=== PATIENT | male | born 1950 | race Caucasian/White ===

== ENCOUNTER → 2024-11-11 05:00 | Outpatient (REF) | payer MEDICARE, SELFPAY ==
[2024-11-11 08:16] LABS: Hematocrit 34.5 % (40-54); Hemoglobin 10.7 g/dL (13.0-16.5); Immature Granulocytes Count 0.050 X10^3/uL (0.0-0.0); Mean Corp Hgb Conc 31.0 g/dL (32-36); Mean Corpuscular Volume 95.0 fL (80-94); Mean Platelet Vol. 9.2 fl (6.2-12.0); NRBC Flagged by Analyzer 0 % (0-5); Platelet Count 443 K/mm3 (150-450); RBC Distribution Width CV 14.6 % (11.6-14.6); RBC Distribution Width SD 51.3 fl (35.1-43.9); Red Blood Count 3.63 M/mm3 (4.6-6.2); White Blood Count 9.2 K/mm3 (4.4-11.0)
[2024-11-11 08:39] LABS: AST(SGOT) 14 U/L (<=37); Alanine Aminotransfer ALT/SGPT 11 U/L (<=46); Albumin, Serum 3.0 g/dL (3.4-4.8); Alkaline Phosphatase 81 U/L (40-129); Anion Gap 11 (5-15); BUN 6 mg/dL (4-19); BUN/Creat Ratio 10.5 RATIO (10-20); Bilirubin, Direct 0.15 mg/dL (0.00-0.30); Calcium,Total 9.0 mg/dL (7.6-11.0); Carbon Dioxide 24.0 mmol/L (21.0-32.0); Chloride 108 mmol/L (98-108); Globulin 3.2 g/dL (2.2-4.2); Glucose 95 mg/dL (70-99); Potassium 3.6 mmol/L (3.3-5.1)
== END ==
LOC: OLS.SANC 05:00
PROVIDERS: Visit Provider Internal Medicine
DX: I48.91 Unspecified atrial fibrillation (principal); D64.9 Anemia, unspecified; J44.9 Chronic obstructive pulmonary disease, unspecified; I10 Essential (primary) hypertension; E78.5 Hyperlipidemia, unspecified; Z79.899 Other long term (current) drug therapy
CPT/HCPCS: 36415; 80053; 82248; 84443; 85025

== ENCOUNTER → 2024-11-18 | Outpatient (REF) | payer MEDICARE, SELFPAY ==
[2024-11-18 09:13] LABS: Hematocrit 34.5 % (40-54); Hemoglobin 10.8 g/dL (13.0-16.5); Immature Granulocytes Count 0.020 X10^3/uL (0.0-0.0); Mean Corp Hgb Conc 31.3 g/dL (32-36); Mean Corpuscular Volume 92.0 fL (80-94); Mean Platelet Vol. 9.5 fl (6.2-12.0); NRBC Flagged by Analyzer 0 % (0-5); Platelet Count 337 K/mm3 (150-450); RBC Distribution Width CV 14.3 % (11.6-14.6); RBC Distribution Width SD 48.2 fl (35.1-43.9); Red Blood Count 3.75 M/mm3 (4.6-6.2); White Blood Count 7.7 K/mm3 (4.4-11.0)
[2024-11-18 09:46] LABS: AST(SGOT) 13 U/L (<=37); Alanine Aminotransfer ALT/SGPT 7 U/L (<=46); Albumin, Serum 3.0 g/dL (3.4-4.8); Alkaline Phosphatase 80 U/L (40-129); Bilirubin, Direct 0.16 mg/dL (0.00-0.30); Globulin 3.0 g/dL (2.2-4.2)
== END ==
LOC: OLS.SANC 04:00
PROVIDERS: Referring Provider Internal Medicine; Visit Provider Internal Medicine
DX: I48.91 Unspecified atrial fibrillation (principal); I10 Essential (primary) hypertension; J44.9 Chronic obstructive pulmonary disease, unspecified
CPT/HCPCS: 36415; 80076; 82565; 85025

== ENCOUNTER → 2024-11-25 | Outpatient (REF) | payer MEDICARE, SELFPAY ==
--- OUTSIDE RECORDS SUMMARY | 2024-11-22 09:41 | XMS RPT_ITS ---
Author Name Auto Generated Organization [facility] Care Team Providers Care Senior Storage Engineer Name Role Phone ELIAS GOSS Attending Unavailable GEORGES, PRAFUL F Primary Care Unavailabl e KEVIN CANTU Referring Unavailab le GEORGES, PRAFUL F Primary Care Unavailabl e ELIAS CHARLES Attending Unavailable GRAELLEN, PRAFUL F Primary Care Unavailabl e NYDIA HOBSON Referring Unavailable ELIAS GOSS Referring Unavailable GRABENSTETTER, PRAFUL F Primary Care Unavailabl e GRADIGNAER, PRAFUL F Primary Care Unavailabl e ROMINA BEDOLLA Referring Unavailable GRADIGNAER, PRAFUL F Primary Care Unavailabl e ROMINA BEDOLLA Attending Unavailable GRADIGNAER, PRAFUL F Primary Care Unavailabl e JERRY GIRALDO Referring Unavailable GRABENSTEXER, PRAFUL F Primary Care Unavailabl e JERRY GIRALDO Referring Unavailable ROMINA BEDOLLA Attending Unavailable GRAELLEN, PRAFUL F Attending Unavailabl e GRABENSTETTER, PRAFUL F Primary Care Unavailabl e GRABENSTETTER, PRAFUL F Primary Care Unavailabl e GRABENSTETTER, PRAFUL F Primary Care Unavailabl e DL, SUDISH Attending Unavailable DL, SUDISH Admitting Unavailable GRABENSTETTER, PRAFUL F Primary Care Unavailabl e DL, SUDISH Attending Unavailable DL, SUDISH Referring Unavailable DL, SUDISH Admitting Unavailable GRABENSTETTER, PRAFUL F Primary Care Unavailabl e DL, SUDISH Referring Unavailable GRABENSTETTER, PRAFUL F Primary Care Unavailabl e DL, SUDISH Attending Unavailable GRABENSTETTER, PRAFUL F Primary Care Unavailabl e DL, SUDISH Referring Unavailable GRABENSTETTER, PRAFUL F Primary Care Unavailabl e THAD BELTRAN Attending Unavailable GEORGES, PRAFUL F Primary Care Unavailabl e MALIA EGAN Attending Unavailable MALIA EGAN Referring Unavailable GRABENSTETTER, PRAFUL F Primary Care Unavailabl e MALIA EGAN Referring Unavailable GRABENSTETTER, PRAFUL F Primary Care Unavailabl e DUALE, PASTORA Referring Unavailable GRABENSTETTER, PRAFUL F Primary Care Unavailabl e DUALE, PASTORA Referring Unavailable ANASTASIIA BUENROSTRO Attending Unavailable ELIAS GOSS Attending Unavailable ELIAS GOSS Referring Unavailable GRABENSTETTER, PRAFUL F Primary Care Unavailabl e GRABENSTETTER, PRAFUL F Primary Care Unavailabl e MALIA GEAN Attending Unavailable TEA ECKERT Referring Unavail able GRABENSTETTER, PRAFUL F Primary Care Unavailabl e DL, SUDISH Referring Unavailable GRABENSTETTER, PRAFUL F Primary Care Unavailabl e ROMINA BEDOLLA Referring Unavailable GRABENSTETTER, PRAFUL F Primary Care Unavailabl e RAUL, SIDDHARTH Admitting Unavailable SIDDHARTH CARTER Attending Unavailable ELIAS GOSS Referring Unavailable ELIAS GOSS Attending Unavailable GRABENSTETTER, PRAFUL F Primary Care Unavailabl e ELIAS GOSS Attending Unavailable GRABENSTETTER, PRAFUL F Primary Care Unavailabl e GRABENSTETTER, PRAFUL F Primary Care Unavailabl e KEVIN CANTU Attending Unavailab le GRADIGNAER, PRAFUL F Primary Care Unavailabl e ROMINA BEDOLLA Referring Unavailable GRABENSTETTER, PRAFUL F Primary Care Unavailabl e ROMINA BEDOLLA Attending Unavailable GRADIGNAER, PRAFUL F Primary Care Unavailabl ROMINA Marquez Attending Unavailable ELIAS GOSS Attending Unavailable GRABENSTETTER, PRAFUL F Primary Care Unavailabl e THAD BELTRAN Referring Unavailable GRABENSTETTER, PRAFUL F Primary Care Unavailabl KEVIN Aleman Attending Unavailab le GRABENSTETTER, PRAFUL F Primary Care Unavailabl e GRABENSJONATANTTER, PRAFUL F Primary Care Unavailabl e ROMINA BEDOLLA Attending Unavailable GRABENSTETTER, PRAFUL F Primary Care Unavailabl e GRABENSTETTER, PRAFUL F Attending UnavailELIAS Avelar Referring Unavailable ELIAS GOSS Attending Unavailable JUSTUSER, PRAFUL F Primary Care Unavailabl e ELIAS GOSS Attending Unavailable GRABENSTETTER, PRAFUL F Primary Care Unavailabl e SELF Referring Unavailable GRABENSTETTER, PRAFUL F Primary Care Unavailabl e FAY CHILDRESS Referring Unavailable GRABENSTETTER, PRAFUL F Primary Care Unavailabl e FAY CHILDRESS Referring Unavailable ROMINA BEDOLLA Attending Unavailable GRABENSTETTER, PRAFUL F Primary Care Unavailabl e KEVIN CANTU Attending Unavailab THAD Lopez Referring Unavailable GRABENSTETTER, PRAFUL F Primary Care Unavailabl e DON LARA Attending Unavailable GRABENSTETTER, PRAFUL F Primary Care Unavailabl e ROMINA BEDOLLA Referring Unavailable GRABENSTETTER, RPAFUL F Primary Care Unavailabl e ROMINA BEDOLLA Attending Unavailable ROMINA BEDOLLA Referring Unavailable GRABENSTETTER, PRAFUL F Primary Care Unavailabl e GRABENSTETTER, PRAFUL F Primary Care Unavailabl e PATRICIA SLOAN Attending Unavailable LORAINE MUÑOZ Admitting Unavailable KEVIN CANTU Consulting Unavailab MERARI Rushing Attending Unavailable GRABENSTETTER, PRAFUL F Primary Care Unavailabl e KEVIN CANTU Referring Unavailab le GRABENSTETTER, PRAFUL F Primary Care Unavailabl e GRABENSTETTER, PRAFUL F Referring Unavailabl e GRABENSTETTER, PRAFUL F Primary Care Unavailabl e PROVIDER, UNKNOWN Referring Unavailable GRABENSTETTER, PRAFUL F Primary Care Unavailabl e GRABENSTETTER, PRAFUL F Primary Care Unavailabl e KEVIN CANTU Referring Unavailab le GRABENSTETTER, PRAFUL F Primary Care Unavailabl e ROMINA BEDOLLA Referring Unavailable PROBLEMS DATE TYPE CONDITION / CODE ATTENDING STATUS [facility] 11/22/2024 Active Follow Up / UNK(Unknown) ROMINA BEDOLLA ctive [facility] 10/24/2024 Active Prostate cancer (HCC) / C61(ICD-10) ELIAS CHARLES Active [facility] 11/19/2024 Active Squamous cell ca rcinoma of lung, unspecified laterality (HCC) / C34.90(ICD-10) ELIAS CHARLES Active [facility] 11/19/2024 Active Normocytic anemi a / D64.9(ICD-10) ELIAS CHARLES Active [facility] 10/29/2024 Active Lung mass / R91.8(ICD-10) SIDDHARTH CARTER Active [facility] 10/24/2024 Active Typical atrial f lutter (HCC) / I48.3(ICD-10) PATRICIA SLOAN [facility] 10/24/2024 Active Cavitary lesion of lung / J98.4(ICD-10) [facility] Active [facility] 10/24/2024 Active Acute cough / R05.1(ICD-10) NATHALIA MATTCHRISTO [facility] 05/11/2024 Active Mixed hyperlipid emia / E78.2(ICD-10) PRAFUL SU F Active [facility] 10/24/2024 Active Essential hypert ension / I10(ICD-10) PRAFUL SU F Active [facility] 10/24/2024 Active 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 (HCC) / C34.31(ICD-10) PRAFUL SU F Active [facility] 10/24/2024 Active Tachycardia / R00.0(ICD-10) PRAFUL SU Active [facility] 08/20/2024 Active Neoplasm of lung / D49.1(ICD-10) ROMINA BEDOLLA Active [facility] 2024 Active Cancer of overla pping sites of right lung (HCC) / C34.81(ICD-10) ROMINA BEDOLLA Active [facility] 05/10/2024 Active Other pneumothor ax / J93.83(ICD-10) NA Active [facility] 06/19/2024 Active Bronchopleural f istula (HCC) / J86.0(ICD-10) NA Active [facility] 07/01/2024 Active Constipation due to opioid therapy / K59.03(ICD-10) ANASTASIIA BUENROSTRO [facility] [place] 07/01/2024 Active Constipation due to opioid therapy / T40.2X5A(ICD-10) ANASTASIIA BUENROSTRO [facility] 06/19/2024 Active Postoperative pa in / G89.18(ICD-10) PAULA ESCOBAR Active [facility] 11/17/2023 Active Infrarenal abdom inal aortic aneurysm (AAA) without rupture / I71.43(ICD-10) MALIA EGAN Active [facility] 11/17/2023 Active Paroxysmal atria l fibrillation (HCC) / I48.0(ICD-10) THAD BELTRAN Active [facility] 06/13/2024 Active Centrilobular em physema (HCC) / J43.2(ICD-10) STUART BELTRANTH Active [facility] 06/13/2024 Active History of prost ate cancer / Z85.46(ICD-10) THAD BELTRAN Active [facility] 06/13/2024 Active Former smoker / Z87.891(ICD-10) THAD BELTRAN Active [facility] 06/07/2024 Active Encounter for pr eoperative anesthesiology assessment for thoracic surgery / Z01.818(ICD-10) NA Active [facility] 06/07/2024 Active Hydropneumothora x / J94.8(ICD-10) NA Active [facility] 06/07/2024 Active Pre-procedure la b exam / Z01.812(ICD-10) NA Active [facility] 05/20/2024 Active Cancer of bronch us of right upper lobe (HCC) / C34.11(ICD-10) ELIAS GOSS Active [facility] 05/10/2024 Active Pneumothorax, un specified type / J93.9(ICD-10) NA Active [facility] 05/08/2024 Active Chronic obstruct ely pulmonary disease, unspecified COPD type (HCC) / J44.9(ICD-10) NA Active [facility] 02/01/2024 Active Postprocedural pneumothorax / J95.811(ICD-10) NA Active [facility] 01/31/2024 Active Foreign body of right ear, initial encounter / T16.1XXA(ICD-10) MERARI SEARS [facility] 01/31/2024 Active Hearing aid worn / Z97.4(ICD-10) MERARI SEARS Active [facility] 01/11/2024 Active Malignant neopla sm of upper lobe of right lung (HCC) / C34.11(ICD-10) ELIAS GOSS Active [facility] 01/11/2024 Active Malignant neopla sm of unspecified part of unspecified bronchus or lung (HCC) / C34.90(ICD-10) ELIAS GOSS Active [facility] 12/19/2023 Active Abdominal aortic aneurysm (AAA) without rupture, unspecified part (HCC) / I71.40(ICD-10) NA Active [facility] 11/17/2023 Active Abscess of lower lobe of right lung without pneumonia (HCC) / J85.2(ICD-10) NA Active [facility] PROCEDURES No Procedure Records Found RESULTS PROGRESS Observed: 11/22/2024 9:44 AM Status: COMPLETED Source: [facility] HNO ID: [id number] Author: ROMINA BEDOLLA APRN.PROGRAM SUPPORT ASSISTANT Service: ? Author Type: Nurse Practitioner Type: Progress Notes Filed: 11/22/2024 10:38 Note Text: Heart, Vascular AND Thoracic [place] Department of Thoracic Surgery VIRTUAL VIDEO VISIT ESTABLISHED OUTPATIENT VISIT SERVICE DATE: 11/22/2024 Patient: Stevie Angeles SERVICE TIME: 9:30 : 1950 This is a virtual video visit. It required patient-provider interaction for the medical decision making as documented below. Stevie Angeles has consented to this video encounter. I have communicated my name and active licensure. The patient's identity and physical location were verified at the time of this visit. Either the patient or their legal claims service representative has been informed of the risks and benefits of -- and alternatives to -- treatment through a remote evaluation and consents to proceed with the evaluation remotely. PAST MEDICAL HISTORY Diagnosis Date Abdominal aortic aneurysm without rupture Elevated PSA Hearing loss HTN (hypertension) Lumbosacral neuritis Malignant neoplasm of prostate (HCC) Other and unspecified hyperlipidemia Prostate cancer (HCC) 2020 xrt at [facility] [place] Smoker former quit 2021 Spinal stenosis of lumbar region with neurogenic claudication PAST SURGICAL HISTORY Procedure Laterality Date COLONOSCOPY 05/28/2008 HERNIA REPAIR HX age 20 PROSTATE BIOPSY HX 2020 REMOVAL OF LUNG,LOBECTOMY Right 11/15/2023 Robotic-assisted right lower lobectomy with right lower lobe bronchoplasty closure of airway and mediastinal and hilar lymph node dissection, intercostal and phrenic nerve block FAMILY HISTORY Problem Relation Age of Onset other (high blood pressure [Other]) Mother Diabetes Mother Hearing Loss Mother Prostate Cancer Other SOCIAL HISTORY[1] ALLERGIES No Known Allergies CURRENT MEDICATIONS acetaminophen (TYLENOL) 325 mg tablet Take 650 mg by mouth every 6 hours as needed. ampicillin-sulbactam (UNASYN) 3 g in NaCl 0.9% 100 mL Vial-Bag Inject 100 mL intravenously every 6 hours. budesonide (PULMICORT) 0.5 mg/2 mL nebulizer solution Use 2 mL via nebulizer two times a day. metoprolol succinate ER (TOPROL XL) 25 mg 24 hr tablet Take 1 tablet by mouth once daily. atorvastatin (LIPITOR) 20 mg tablet Take 1 tablet by mouth once daily. fluticasone-salmeterol (WIXELA INHUB) 250-50 mcg/dose inhaler Inhale 1 puff as instructed two times a day. albuterol HFA (PROVENTIL HFA, VENTOLIN HFA) 90 mcg/actuation inhaler Inhale 2 puffs as instructed every 4 hours as needed. gabapentin (NEURONTIN) 300 mg capsule TAKE 2 CAPSULES BY MOUTH 3 TIMES A DAY REVIEW OF SYSTEMS: PAIN ASSESSMENT: Negative for pain, history of chronic pain, or current treatment for a chronic pain condition. RESPIRATORY: Negative for: Cough, Blood in Sputum, Shortness of breath, Wheezing, Apnea GASTROINTESTINAL: Negative for: Trouble swallowing, Heartburn, Change in bowel habits, Blood in stool, Dark black stools PHYSICAL EXAMINATION: VIDEO EXAM: (if completed, performed via video enabled technology) GENERAL: alert and appropriate, in no distress, well-hydrated, well nourished, and happy, smiling, interactive HEAD: normocephalic, no abnormality or lesion noted RESPIRATORY: breathing non-labored CHEST: equal chest rise with normal respiratory effort PATIENT ENTERED QUESTIONNAIRE SCORES 10/26/2023 PHQ-9 PHQ-2 Score 0 10/26/2023 10/04/2017 ARIELLA - 2/7 SCORES ARIELLA-2 Score 0 0 11/22/2024 08/20/2024 05/09/2024 PROMIS Global Health - (T-Scores - the mean of general population = 50. Five points is a clinically meaningful difference.) Physical T-Score 42.3 42.3 42.3 44.9 Mental T-Score 36.3 53.3 53.3 53.3 I personally spent 20 minutes in total time involved in the management and care of this patient. Romina Bedolla, JESUS.PROGRAM SUPPORT ASSISTANT November 22, 2024 9:30 Part of this note was copied from previous note, all content has been individually reviewed, updated as necessary, and thoroughly reviewed. [facility] - Heart, Vascular and Thoracic [place] OUTPATIENT THORACIC SURGERY CLINIC NOTE PT NAME: Stevie Angeles [facility] NO: [id number] THORACIC SURGEON: Paula Escobar M.D. 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 - Extensive post-obstructive changes with acute and organizing bronchopneumonia with suppurative exudate and microabscess formation. - Seven hilar/peribronchial lymph nodes, negative for tumor (0/7). - Vascular margin negative for tumor. B. Lymph node, level 9R, excision: - Negative for tumor (0/1). C. Lymph node, level 8R, excision: - Negative for tumor (0/1). D. Lymph node, level 8R, excision: - Negative for tumor (0/1). Few giant cells. E. Lymph node, level 10R, excision: - Negative for tumor (0/1). F. Lymph node, level 11R, excision: - Negative for tumor (0/1). G. Lung, additional airway, excision: - Keratinizing squamous cell carcinoma. - Bronchial margin negative for tumor Diagnosis Comment A. Selected slides from part A (including the inked margin) were reviewed at the [facility] thoracic pathology consensus conference on 11/23/23. Dr. Fauzia Oseguera, Dr. Alexis Altman, Dr. Fitch and Dr. Romina Bryan were present and concurred with this interpretation. The status of the margins was discussed with Dr. Escobar by email on 11/23/23 and discussed at the consensus conference. Because of the extensive nature of the suppurative process, margin assessment is difficult. G. The final bronchial margin is negative for tumor. Block for additional Biomarkers/Molecular studies A7 Synoptic Report LUNG 8th Edition - Protocol posted: 11/17/2021LUNG: RESECTION - All Specimens SPECIMEN Procedure Lobectomy Specimen Laterality Right TUMOR Tumor Focality Single focus Tumor Site Lower lobe of lung Tumor Size Total Tumor Size (size of entire tumor) Greatest Dimension (Centimeters): 2.5 cm Additional Dimension (Centimeters) 2.5 cm 1.8 cm Histologic Type Invasive squamous cell carcinoma, keratinizing Histologic Grade G2, moderately differentiated Spread Through Air Spaces (ROBIN) Not identified Visceral Pleura Invasion Not identified Direct Invasion of Adjacent Structures Not applicable (no adjacent structures present) Treatment Effect No known presurgical therapy Lymphovascular Invasion Not identified MARGINS Margin Status for Invasive Carcinoma Due to extensive suppuration, it is unclear whether the inked edge represents a true hilar soft tissue or parenchymal margin; discussed with Dr. Escobar on 11/23/23. The bronchial and vascular margins are negative. Margin Status for Non-Invasive Tumor Not applicable REGIONAL LYMPH NODES Lymph Node(s) from Prior Procedures No known prior lymph node sampling performed Regional Lymph Node Status All regional lymph nodes negative for tumor Number of Lymph Nodes Examined 12 Lan Site(s) Examined 8R: Para-esophageal (below patti) 9R: Pulmonary ligament 10R: Hilar 11R: Interlobar Right: hilar/peribronchial PATHOLOGIC STAGE CLASSIFICATION (pTNM, AJCC 8th Edition) Reporting of pT, pN, and (when applicable) pM categories is based on information available to the pathologist at the time the report is issued. As per the AJCC (Chapter 1, 8th Ed.) it is the managing physician?s responsibility to establish the final pathologic stage based upon all pertinent information, including but potentially not limited to this pathology report. pT Category pT1c pN Category pN0 ADDITIONAL FINDINGS Additional Findings Inflammation: Acute and organizing bronchopneumonia Post-obstructive changes . REASON FOR VISIT: CT Surveillance HPI: Stevie Angeles is a 73 year old male, with h/o HTN, HLD, COPD with a long tobacco use history, AAA (4.67 cm FU w VS), spinal stenosis and Prostate cancer [id number] adenocarcinoma prostate s/p TRUS random biopsy 09/24/20, s/p Lupron 45 mg IM injection 11/05/20 then external beam radiation therapy completed 01/15/21 (70 Gy/28fx). ADRIANA. Follow up w/ urology as an outpatientwho some. On 11/15/2023, Pt underwent complex resection of a locally advanced non-small cell lung cancer of the right lower lobe. The patient then underwent SBRT treatment of a right upper lobe lesion. After his treatment with SBRT, the patient began developing and gradually enlarging pneumatocele at the base of his right lung. This was first noted approximately 3 weeks after his treatment. This continued to enlarge developed significant compression of remaining right upper and right middle lobe.He underwent Right robotic assisted lysis of adhesions, repair of broncho/alveolar fistula, and intercostal nerve block on 06/19/[address] Escobar. Hospital course was uncomplicated and Right chest tube left in place for small air leak to a mini atrium to allow the lung heal. Patient was medically and surgically cleared for discharge on 06/23/2024 with chest tube. This was removed in OPD 07/02/23. PHYSICAL EXAM: VITAL SIGNS: There were no vitals taken for this visit. Room air Incision location: Right Thoracoport sites and Right Old chest tube sites with suture Incision Assessment: Well approximated and no drainage, swelling, erythema or warmth Drain/Tubes: NA IMAGING/TESTS: CTA Chest 10/24/24: IMPRESSION: Thick-walled right upper lobe cavitary mass is noted with an associated air-fluid level. This may be an infectious/inflammatory process as it was not present on the exam from 05/08/2024. Malignancy is not excluded. Mediastinal lymphadenopathy may be reactive. CT Chest 11/21/24: INTERVAL HISTORY: Stevie Angeles is seen today via a virtual visit. He is presently at a rehab facility. Since last seen, he was admitted to [facility] when found to be in a rapid atrial fibrillation. No cardioversion, he converted with medication and is presently on Metoprolol. Also noted a right upper lobe cavitary. He underwent a bronchoscopy. Biopsy of right upper lobe cystic lesion showed necroinflammation. Right lower lobe stump biopsied and showed squamous cell cancer. Dr Escobar is notified of this development. 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 The right lower lobe stump squamous cell is either local recurrence or a new primary. No surgical option for this. he recommends return to oncology. Mr Angeles is scheduled for PET scan 11/28 and MRI 11/29 with follow up with Dr Charles in oncology. He may return as needed. 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 Escobar. Post surgical underwent SBRT treatment of a right upper lobe lesion. After his treatment, patient began developing and gradually enlarging pneumatocele at the base of his right lung. Now s/p Right robotic assisted lysis of adhesions, repair of broncho/alveolar fistula, pleural flap and intercostal nerve block on 06/19/[address] Escobar. New squamous cell carcinoma at the Right lower lobe stump, local recurrence vs new primary in the airway PLAN: - return as needed - oncology management with Dr Charles, f/u 12/13/24 following PET and MRI - radiation oncology management with Dr Ana Paula Bedolla, HOOK UP.PROGRAM SUPPORT ASSISTANT [1] Social History Tobacco Use Smoking status: Former Current packs/day: 0.00 Average packs/day: 1 pack/day for 40.0 years (40.0 ttl pk-yrs) Types: Cigarettes Start date: 07/1981 Quit date: 07/2021 Years since quittin.3 Passive exposure: Past Smokeless tobacco: Never Vaping Use Vaping status: Never Used Substance Use Topics Alcohol use: Not Currently Alcohol/week: 6.0 standard drinks of alcohol Types: 6 Glasses of wine per week Drug use: No PROGRESS Observed: 11/21/2024 12:30 PM Status: COMPLETED Source: [facility] HNO ID: [id number] Author: DEN TORRES, TECHNOLOGIST Service: Radiology Author Type: Technologist Type: Progress Notes Filed: 11/21/2024 12:35 Note Text: Radiology Service Progress Note PATIENT NAME: Stevie Angeles DATE OF SERVICE: November 21, 2024 TIME: 12:28 PM PATIENT IDENTITY VERIFICATION COMPLETED USING TWO (2) IDENTIFIERS: Name and Date of confirmed by patient verbally and Name and Date of confirmed by identification band. FALL SCREENING: Has the patient had 2 falls in the last year or 1 fall with injury or currently using an Ambulatory Assistive Device (Walker, Cane, Wheelchair, Crutches, etc.)? No PATIENT GENDER DATA: Assigned male at PATIENT RELEVANT IMPLANT DATA REVIEWED: Yes PATIENT PRESENTS WITH AN IMPLANTABLE OR ATTACHED PAUNCH TRIMMER: No RADIOLOGY DEPARTMENT: CT; Exam(s) Completed: Chest. Anesthesia: No PERIPHERAL IV DATA: Site assessment: Clean,Dry and Intact, Site disposition Discontinued SIGNED BY: Den Torres TECHNOLOGIST November 21, 2024 12:28 PM STFR SERPL-MCNC Collected: 11:33 AM Status: F Source: [facility] Order Comment: Specimen Type : BLOOD SPECIMEN Ordering Facility: [facility] Address: [address] [place] [address] TYPE CODE TESTS RESULT OUT OF RANGE REFERENCE UNITS LAB 73506-9([facility]) sTfR SerPl-sCnc 3.0 2.2-5.0 mg/L Performed By: #### [id number] # ### [facility] CLIA [id number] [address] [place] [address] [place] CBC W AUTO DIFF BLD Collected: 11/19/2024 11:33 AM S tatus: F Source: [facility] Order Comment: Specimen Type : BLOOD SPECIMEN Ordering Facility: [facility] Address: [address] [place] [address] TYPE CODE TESTS RESULT OUT OF RANGE REFERENCE UNITS LAB 6690-2(LOINC) WBC # Bld Auto 9.01 3.70-11.00 k/uL LAB 789-8(LOINC) RBC # Bld Auto 3.92 Low 4.20-6.00 m/ uL LAB 718-7(LOINC) Hgb Bld-mCnc 11.2 Low 13.0-17.0 g/dL LAB 4544-3([facility]) Hct VFr Bld Auto 36.1 Low 39.0-51.0 % LAB 787-2([facility]) MCV RBC Auto 92.1 80.0-100.0 fL LAB 785-6([facility]) MCH RBC Qn Auto 28.6 26.0-34.0 p g LAB 786-4([facility]) MCHC RBC Auto-mCnc 31.0 30.5-36.0 g/dL LAB 49284-6([facility]) RDW RBC-Rto 14.3 11.5-15.0 % LAB 777-3([facility]) Platelet # Bld Auto 355 150-400 k/uL LAB 23017-6([facility]) PMV Bld Auto 9.4 9.0-12.7 fL LAB 770-8([facility]) Neutrophils/leuk NFr Bld Auto 70.6 % LAB 751-8([facility]) Neutrophils # Bld Auto 6.36 1.45-7.50 k/uL LAB 736-9([facility]) Lymphocytes/leuk NFr Bld Auto 16.9 % LAB 731-0([facility]) Lymphocytes # Bld Auto 1.52 1.00-4.00 k/uL LAB 5905-5([facility]) Monocytes/leuk NFr Bld Auto 7.8 % LAB 742-7([facility]) Monocytes # Bld Auto 0.70 <0.87 k/uL LAB 713-8([facility]) Eosinophil/leuk NFr Bld Auto 3.3 % LAB 711-2([facility]) Eosinophil # Bld Auto 0.30 <0.46 k/uL LAB 706-2([facility]) Basophils/leuk NFr Bld Auto 1.0 % LAB 704-7([facility]) Basophils # Bld Auto 0.09 <0.11 k/uL LAB 63681-5([facility]) Imm Granulocytes/ifdelia k NFr Bld Auto 0.4 % LAB 52003-9([facility]) Imm Granulocytes # Bld Auto 0.04 <0.10 k/uL LAB 27211-6([facility]) nRBC/100 WBC Bld-Rto 0.0 /100 WBC LAB 771-6([facility]) nRBC # Bld Auto <0.01 <0.01 k/u L LAB 13521-4([facility]) Differential method Bld Auto Performed By: #### 54161-6 # ### [facility] CLIA [id number] [address] [place] [address] [place] PSA SERPL-MCNC Collected: 11:33 AM Status: F Source: [facility] Comment: Specimen Type : BLOOD SPECIMEN Ordering Facility: [facility] Address: [address] [place] [address] TYPE CODE TESTS RESULT OUT OF RANGE REFERENCE UNITS LAB 2857-1([facility]) PSA SerPl-mCnc <0.02 <2.60 ng/mL Result Comment: Total PSA te st methodology used is the Electrochemiluminescence Immunoassay by [employer]. Total PSA values by differing methodologies cannot be interchanged. Performed By: #### 2857-1 ## ## [facility] CLIA [id number] [address] [place] [address] [place] COMP METAB 2000 PNL SERPL Collected: 11:33 AM Status: F Source: [facility] Comment: Specimen Type : BLOOD SPECIMEN Ordering Facility: [facility] Address: [address] [place] [address] TYPE CODE TESTS RESULT OUT OF RANGE REFERENCE UNITS LAB 2885-2(INC) Prot SerPl-mCnc 7.0 6.3-8.0 g/dL LAB 1751-7(LOINC) Albumin SerPl-mCnc 3.7 Low 3.9-4.9 g/dL LAB 70462-6([facility]) Calcium SerPl-mCnc 8.8 8.5-10.2 mg/dL LAB 1975-2([facility]) Bilirub SerPl-mCnc 0.4 0.2-1.3 mg/dL LAB 6768-6(LOINC) ALP SerPl-cCnc 97 38-113 U/L LAB 1920-8(LOINC) AST SerPl-cCnc 11 Low 14-40 U/L LAB 1742-6(LOINC) ALT SerPl-cCnc 9 Low 10-54 U/L LAB 2345-7(LOINC) Glucose SerPl-mCnc 114 High 74-99 mg/dL Result Comment: The [place] [employer] (ADA) provides guidance for cutoff values for fasting glucose and random glucose. The ADA defines fasting as no caloric intake for at least 8 hours. Fasting plasma glucose results between 100 to 125 mg/dL indicate increased risk for diabetes (prediabetes). Fasting plasma glucose results greater than or equal to 126 mg/dL meet the criteria for diagnosis of diabetes. In the absence of unequivocal hyperglycemia, results should be confirmed by repeat testing. In a patient with classic symptoms of hyperglycemia or hyperglycemic crisis, random plasma glucose results greater than or equal to 200 mg/dL meet the criteria for diagnosis of diabetes. Reference: Standards of Medical Care in Diabetes 2016, [place] [employer]. Diabetes Care. 2016.39(Suppl 1). LAB 3094-0(LOINC) BUN SerPl-mCnc 7 Low 9-24 mg/dL LAB 2160-0(LOINC) Creat SerPl-mCnc 0.54 Low 0.73-1.22 mg/dL LAB 2951-2([facility]) Sodium SerPl-sCnc 142 136-144 mmol/L LAB 2823-3(LOINC) Potassium SerPl-sCnc 3.5 Low 3.7-5.1 mmol/L LAB 2075-0(LOINC) Chloride SerPl-sCnc 104 98-107 mmol/L LAB 2028-9(LOINC) CO2 SerPl-sCnc 27 22-30 mmol/L LAB 99830-8(LOINC) Anion Gap SerPl-sCnc 11 8-15 mmol/L LAB 47385-2(LOINC) eGFRcr SerPlBld CKD-EPI 2020 106 >=60 mL/min/1. 73m??? Result Comment: Estimated Gl omerular Filtration Rate (eGFR) is calculated using the 2020 CKD-EPI creatinine equation. This equation utilizes serum creatinine, sex, and age as parameters. The creatinine assay has traceable calibration to isotope dilution-mass spectrometry. Refer to KDIGO guidelines for clinical interpretation. In patients with unstable renal function, e.g. those with acute kidney injury, the eGFR may not accurately reflect actual GFR. Performed By: #### 16803-3 # ### [facility] CLIA [id number] [address] [place] [address] [place] CNOVSP Observed: 11/19/2024 10:30 AM Status: COMPLETED Source: [facility] TONG Visit (SP) Office (HEMMED) STEVIE ANGELES ([id number]) 1950 M DEF Date Time Provider Department 11/19/24 10:30 AM ELIAS CHARLES During your visit today, we recorded the following information about you: Temperature Pulse Respiration Blood pressure 98.1 degrees 69/minute 18/minute 109/70 Weight 69.7 kg Elias Charles MD 11/19/2024 11:56 AM Signed (Elements copied from my note dated December 19, 2023, have been reviewed and updated where appropriate, and all reflect current assessment and medical decision making during today's encounter, 09/11/2024) HISTORY OF PRESENT ILLNESS: Stevie Angeles is a 74 year old male Cancer Staging No matching staging information was found for the patient. 05/17/23 CTA chest: Nodular opacification in the right lower lobe with confluent appearance near the hilum 06/19/23 PET/CT: FDG avid right upper lobe lung nodule and medial right lower lobe solid lesion with groundglass extension, concerning for neoplastic process. Mildly prominent mediastinal lymph nodes with mild uptake likely reactive. 06/20/23: Bronchoscopy non-diagnostic of malignancy 08/28/23 CT chest: Further interval enlargement of suspicious masslike opacity in the R lower lobe and mild enlargement of suspicious spiculated and cavitary nodule in the RIGHT upper lobe. 09/19/23 Bronchoscopy confirming SCC of RLL, negative 11 Rl and 11RS nodes *PD-L1 0% 11/15/23 R lower lobectomy with Dr. 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 Transferred to [facility] for bronch. Endobronchial biopsy 10/29/2024 of RLL showed keratinizing SCC. RUL biopsy necroinflammatory exudate and occasional scattered degenerated poorly preserved epithelial cells NSCLC TREATMENT HISTORY: 1.) 11/15/23 R lower lobectomy with Dr. 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 Misc *5 cm AAA under surveillance with RACTIV SCANS: 10/24/2024 CTA Chest IMPRESSION: Thick-walled right upper lobe cavitary mass is noted with an associated air-fluid level. This may be an infectious/inflammatory process as it was not present on the exam from 05/08/2024. Malignancy is not excluded. Mediastinal lymphadenopathy may be reactive. Pathology EBUS biopsy 10/29/2024 FINAL DIAGNOSIS A. Lung, right lower lobe, endobronchial biopsy: -Keratinizing squamous cell carcinoma. B. Lung, right upper lobe, transbronchial biopsy: -Necroinflammatory exudate, and occasional scattered degenerated, poorly preserved atypical epithelial cells (see comment). -Bronchial mucosa, granulation tissue, rare multinucleated giant cells, (see comment), at 1745 EDT Diagnosis Comment Immunostains for keratin AE1/AE3, p40 and SMA were performed on B1: Keratin AE1/AE3 highlights preserved degenerated atypical cells that are negative for p40 and SMA. GMS stain was performed on B1: No fungal organisms were identified. SUBJECTIVE: Reports that he is doing ok since being discharged. Not sure that he really feels any better since the admission. Working with PT as he feels he became weaker while admitted. Denies headaches. ASSESSMENT/PLAN: 1.) Recurrent Squamous NSCLC: Admitted 10/24/2024 with aflutter. CTA-chest showed 10cm RUL cavitary lesion with air fluid level concerning for infection/malignancy. 11/01/2024 bronch showed lesion in RLL at suture line of prior RLL lobectomy that returned at squamous cell carcinoma. RUL biopsy with necroinflammatory exudate and atypical cells. Based on this workup he at least has local recurrence in the RLL, but I am also concerned for recurrent disease in the RUL given prior PET avid lesion in the RUL. Per review of prior notes: Patient initally presented with what appeared to be a 8.3cm RLL lesion and 2 cm RUL lesion, unclear if iplsateral lung metastatic disease or synchronus disease. After conferring with Dr. Escobar, it was unclear if there would be any benefit in providing neoadjuvant chemoIO given PD-L1 of 0% vs adjuvant therapy. Patient went directly to surgery where it was found that the large RLL lesion was primarily abscess with a pT1c lesion and no positive lymph nodes. As such, adjuvant chemotherapy was not indicated based off the resected disease. As the patient was not a candidate for a pneumonectomy, patient underwent SBRT to the RUL lesion -Today we reviewed the imaging and biopsy reports from the recent hospitalization. We discussed that this workup shows that there is at least a locoregional recurrence involving the RLL. We also discussed that given the new cavitary lesion in the RUL that I am concerned there is also recurrence in this area despite the biopsy not clearly showing this. -At this time we discussed that with evidence of locoregional recurrence it is necessary to evaluate for distant or metastatic recurrence with PET scan and MRI brain. We discussed possible need for additional biopsies if there is concern for distant recurrence. -We discussed that treatment options are different for locoregional recurrence vs distant recurrence and the above workup is needed to determine which treatment options might be reasonable. -I have previously request additional molecular testing on recent biopsy for PDL1 expression and actionable mutations -Will obtain Guardant 360 testing today. -Will reach out to his thoracic surgeon and radiation oncologist to discuss patient as well 2.) Normocytic anemia: recent iron studies while admitted suggest anemia of inflammation and or iron deficiency -Will repeat CBC and CMP today to monitor -check solulble transferrin receptor to see if we can distinguish if inflammation or iron deficiency is the primary automation driver of the anemia. 3.) History of high risk prostate cancer s/p ADT and EBRT -Will repeat PSA today Written and verbal health teaching given to patient, patient verbalizes understanding and agrees with treatment plan. PAST MEDICAL HISTORY Diagnosis Date Abdominal aortic aneurysm without rupture Elevated PSA Hearing loss HTN (hypertension) Lumbosacral neuritis Malignant neoplasm of prostate (HCC) Other and unspecified hyperlipidemia Prostate cancer (HCC) 2020 xrt at [facility] [place] Smoker former quit 2021 Spinal stenosis of lumbar region with neurogenic claudication PAST SURGICAL HISTORY Procedure Laterality Date COLONOSCOPY 05/28/2008 HERNIA REPAIR HX age 20 PROSTATE BIOPSY HX 2020 REMOVAL OF LUNG,LOBECTOMY Right 11/15/2023 Robotic-assisted right lower lobectomy with right lower lobe bronchoplasty closure of airway and mediastinal and hilar lymph node dissection, intercostal and phrenic nerve block FAMILY HISTORY Problem Relation Age of Onset other (high blood pressure [Other]) Mother Diabetes Mother Hearing Loss Mother Prostate Cancer Other Social History Tobacco Use Smoking status: Former Current packs/day: 0.00 Average packs/day: 1 pack/day for 40.0 years (40.0 ttl pk-yrs) Types: Cigarettes Start date: 07/1981 Quit date: 07/2021 Years since quittin.3 Passive exposure: Past Smokeless tobacco: Never Vaping Use Vaping status: Never Used Substance Use Topics Alcohol use: Not Currently Alcohol/week: 6.0 standard drinks of alcohol Types: 6 Glasses of wine per week Drug use: No ALLERGIES: ALLERGIES No Known Allergies CURRENT OUTPATIENT MEDICATIONS: ampicillin-sulbactam (UNASYN) 3 g in NaCl 0.9% 100 mL Vial-Bag Inject 100 mL intravenously every 6 hours. budesonide (PULMICORT) 0.5 mg/2 mL nebulizer solution Use 2 mL via nebulizer two times a day. metoprolol succinate ER (TOPROL XL) 25 mg 24 hr tablet Take 1 tablet by mouth once daily. atorvastatin (LIPITOR) 20 mg tablet Take 1 tablet by mouth once daily. fluticasone-salmeterol (WIXELA INHUB) 250-50 mcg/dose inhaler Inhale 1 puff as instructed two times a day. albuterol HFA (PROVENTIL HFA, VENTOLIN HFA) 90 mcg/actuation inhaler Inhale 2 puffs as instructed every 4 hours as needed. (Patient not taking: Reported on 10/24/2024) gabapentin (NEURONTIN) 300 mg capsule TAKE 2 CAPSULES BY MOUTH 3 TIMES A DAY REVIEW OF SYSTEMS: Review of systems unremarkable except as noted in the HPI. PHYSICAL EXAMINATION: VITAL SIGNS: There were no vitals taken for this visit. Physical Exam Constitutional: General: He is not in acute distress. Appearance: Normal appearance. HENT: Head: Normocephalic and atraumatic. Eyes: Extraocular Movements: Extraocular movements intact. Pulmonary: Effort: Pulmonary effort is normal. No respiratory distress. Skin: Coloration: Skin is not jaundiced. Neurological: General: No focal deficit present. Mental Status: He is alert. Mental status is at baseline. LABS: Latest Ref Rng AND Units 11/05/2024 CBC WBC 3.70 - 11.00 k/uL 9.62 RBC 4.20 - 6.00 m/uL 3.62 Hemoglobin 13.0 - 17.0 g/dL 10.8 Hematocrit 39.0 - 51.0 % 33.8 MCV 80.0 - 100.0 fL 93.4 MCH 26.0 - 34.0 pg 29.8 MCHC 30.5 - 36.0 g/dL 32.0 RDW-CV 11.5 - 15.0 % 14.6 Platelet Count 150 - 400 k/uL 410 MPV 9.0 - 12.7 fL 8.6 Latest Ref Rng AND Units 11/05/2024 CMP Sodium 136 - 144 mmol/L 141 Potassium 3.7 - 5.1 mmol/L 3.3 Chloride 98 - 107 mmol/L 107 CO2 22 - 30 mmol/L 24 Glucose 74 - 99 mg/dL 109 BUN 9 - 24 mg/dL 8 Creatinine 0.73 - 1.22 mg/dL 0.60 EGFR >=60 mL/min/1.73m? 103 Calcium 8.5 - 10.2 mg/dL 8.4 No results found for: TSH Elias Charles MD Medical Decision Making: Problems: High: Chronic illness with severe change Data: Unique source(s) for external note(s) reviewed: 3+ Unique test result(s) reviewed: 3+ Unique test(s) ordered: 3+ Risk: Low: Low risk from testing/treatment Medical Decision Making Level: 4 - Moderate I spent a total of 40 minutes on the date of the service which included preparing to see the patient, [id number] patient care, completing clinical documentation, obtaining and/or reviewing separately obtained history, performing a medically appropriate examination, counseling and educating the patient/family/caregiver, and ordering medications, tests, or procedures. Elias Charles MD 11/19/2024 10:55 AM Signed Please get PET scan scheduled [place] Get labs done today Schedule follow up with me in three weeks Allergies As of Date: 11/19/2024 (No Known Allergies) Date Reviewed: 11/19/2024 Reviewed by: Elias Charles MD - Fully Assessed Reason for Visit: Follow Up [171] Lung Cancer [562] Primary Visit Diagnosis:Squamous cell carcinoma of lung, unspecified laterality (HCC) [C34.90] Other Visit Diagnoses:Normocytic anemia [D64.9] Prostate cancer (HCC) [C61] Order(s):REFERRAL FOR ADDITIONAL BIOMARKER AND MOLECULAR TESTING [SQAPMOL] Order #: [id number]. #:[id number] NM PET/CT SKULL-THIGH INITIAL [1018140] Order #: [id number] FUTURE MRI BRAIN WO/W IVCON [[id number]] Order #: [id number] FUTURE iv contrast (will be provided with radiology test)MRI Brain Inject, intravenously, once for 1 dose.No IV access, insert saline lock prior to beginning of sedation, infusion, injection of imaging exam.Discontinue saline lock post exam. If Pt. has a central line or IVAD, may access for administration according to line specific nursing protocol.Once exam is complete flush line and de-access according to line specific nursing protocol in the MR contrast administration guidelines linkDisp: 1 eachRfl: 0 [id number] [[id number]] Order #: [id number] FUTURE COMPLETE BLOOD COUNT AND DIFFERENTIAL [SQCBCDIF] Order #: [id number] FUTURE COMPREHENSIVE METABOLIC PANEL [SQCMP] Order #: [id number] FUTURE SOLUBLE TRANS RECEPTOR [SQSTRANS] Order #: [id number] FUTURE PROSTATE-SPECIFIC ANTIGEN DIAGNOSTIC [SQPSA] Order #: [id number] STANDING [id number] [[id number]] Order #: [id number]. #:[id number] COMPLETE BLOOD COUNT AND DIFFERENTIAL [SQCBCDIF] Order #: [id number]. #:[id number] COMPREHENSIVE METABOLIC PANEL [SQCMP] Order #: [id number]. #:[id number] SOLUBLE TRANS RECEPTOR [SQSTRANS] Order #: [id number]. #:[id number] PROSTATE-SPECIFIC ANTIGEN DIAGNOSTIC [SQPSA] Order #: [id number]. #:[id number] Level of Service: OFFICE/OUTPATIENT ESTABLISHED [facility] 40 MIN [30740] Additional E/M codes: VISIT CPLX INHERENT EANDM ASSOC WITH MED * Disposition: Return in about 3 weeks (around 12/10/2024). Follow-up and Disposition History for Encounter Date Provider Department Center 11/19/2024 [id number], ANDREW Urt[facility] Prescriptions as of 11/19/2024 - iv contrast (will be provided with radiology test) MRI Brain Inject, intravenously, once for 1 dose.No IV access, insert saline lock prior to beginning of sedation, infusion, injection of imaging exam.Discontinue saline lock post exam. If Pt. has a central line or IVAD, may access for administration according to line specific nursing protocol.Once exam is complete flush line and de-access according to line specific nursing protocol in the MR contrast administration guidelines link - acetaminophen (TYLENOL) 325 mg tablet Take 650 mg by mouth every 6 hours as needed. - ampicillin-sulbactam (UNASYN) 3 g in NaCl 0.9% 100 mL Vial-Bag Inject 100 mL intravenously every 6 hours. - budesonide (PULMICORT) 0.5 mg/2 mL nebulizer solution Use 2 mL via nebulizer two times a day. - metoprolol succinate ER (TOPROL XL) 25 mg 24 hr tablet Take 1 tablet by mouth once daily. - atorvastatin (LIPITOR) 20 mg tablet Take 1 tablet by mouth once daily. - fluticasone-salmeterol (WIXELA INHUB) 250-50 mcg/dose inhaler Inhale 1 puff as instructed two times a day. - albuterol HFA (PROVENTIL HFA, VENTOLIN HFA) 90 mcg/actuation inhaler Inhale 2 puffs as instructed every 4 hours as needed. 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] 04/24/2023 Prostate cancer (HCC) [C61] 09/11/2023 Paroxysmal atrial fibrillation (HCC) [I48.0] 09/11/2023 Cancer of lower lobe of right lung (HCC) [C34.3*11/15/2023 Postoperative pain [G89.18] 11/16/2023 COPD (chronic obstructive pulmonary disease) (H*11/17/2023 Lung abscess (HCC) [J85.2] 11/17/2023 Pleural effusion, left [J90] 11/17/2023 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] 11/17/2023 Pneumothorax [J93.9] 05/10/2024 Hearing loss [H91.90] 05/10/2024 Cavitary lesion of lung [J98.4] 10/24/2024 Leukocytosis [D72.829] 10/24/2024 10/25/2024 Anemia [D64.9] 10/24/2024 Hypocalcemia [E83.51] 10/24/2024 10/25/2024 Hypomagnesemia [E83.42] 10/24/2024 10/25/2024 Elevated troponin [R79.89] 10/24/2024 10/25/2024 Sepsis (HCC) [A41.9] 10/25/2024 Malignant neoplasm of upper lobe of right lung *10/25/2024 S/P lobectomy of lung [Z90.2] 10/25/2024 Thoracic lymphadenopathy [R59.0] 10/25/2024 Ex-smoker [Z87.891] 10/25/2024 Bacterial pneumonia [J15.9] 11/01/2024 Hypoxemia [R09.02] 11/01/2024 Folate deficiency [E53.8] 11/01/2024 Other instructions from your clinician: Please get PET scan scheduled [place] Get labs done today Schedule follow up with me in three weeks Encounter Status:Closed by ELIAS CHARLES on 11/19/24 PROGRESS Observed: 11/19/2024 10:30 AM Status: COMPLETED Source[facility] HNO ID: [id number] Author: ELIAS CHARLES MD Service: ? Author Type: Physician Type: Progress Notes Filed: 11/19/2024 11:56 Note Text: (Elements copied from my note dated December 19, 2023, have been reviewed and updated where appropriate, and all reflect current assessment and medical decision making during today's encounter, 09/11/2024) HISTORY OF PRESENT ILLNESS: Stevie Angeles is a 74 year old male Cancer Staging No matching staging information was found for the patient. 05/17/23 CTA chest: Nodular opacification in the right lower lobe with confluent appearance near the hilum 06/19/23 PET/CT: FDG avid right upper lobe lung nodule and medial right lower lobe solid lesion with groundglass extension, concerning for neoplastic process. Mildly prominent mediastinal lymph nodes with mild uptake likely reactive. 06/20/23: Bronchoscopy non-diagnostic of malignancy 08/28/23 CT chest: Further interval enlargement of suspicious masslike opacity in the R lower lobe and mild enlargement of suspicious spiculated and cavitary nodule in the RIGHT upper lobe. 09/19/23 Bronchoscopy confirming SCC of RLL, negative 11 Rl and 11RS nodes *PD-L1 0% 11/15/23 R lower lobectomy with Dr. 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 Transferred to [facility] for bronch. Endobronchial biopsy 10/29/2024 of RLL showed keratinizing SCC. RUL biopsy necroinflammatory exudate and occasional scattered degenerated poorly preserved epithelial cells NSCLC TREATMENT HISTORY: 1.) 11/15/23 R lower lobectomy with Dr. 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 Misc *5 cm AAA under surveillance with RACTIV SCANS: 10/24/2024 CTA Chest IMPRESSION: Thick-walled right upper lobe cavitary mass is noted with an associated air-fluid level. This may be an infectious/inflammatory process as it was not present on the exam from 05/08/2024. Malignancy is not excluded. Mediastinal lymphadenopathy may be reactive. Pathology EBUS biopsy 10/29/2024 FINAL DIAGNOSIS A. Lung, right lower lobe, endobronchial biopsy: -Keratinizing squamous cell carcinoma. B. Lung, right upper lobe, transbronchial biopsy: -Necroinflammatory exudate, and occasional scattered degenerated, poorly preserved atypical epithelial cells (see comment). -Bronchial mucosa, granulation tissue, rare multinucleated giant cells, (see comment), at 1745 EDT Diagnosis Comment Immunostains for keratin AE1/AE3, p40 and SMA were performed on B1: Keratin AE1/AE3 highlights preserved degenerated atypical cells that are negative for p40 and SMA. GMS stain was performed on B1: No fungal organisms were identified. SUBJECTIVE: Reports that he is doing ok since being discharged. Not sure that he really feels any better since the admission. Working with PT as he feels he became weaker while admitted. Denies headaches. ASSESSMENT/PLAN: 1.) Recurrent Squamous NSCLC: Admitted 10/24/2024 with aflutter. CTA-chest showed 10cm RUL cavitary lesion with air fluid level concerning for infection/malignancy. 11/01/2024 bronch showed lesion in RLL at suture line of prior RLL lobectomy that returned at squamous cell carcinoma. RUL biopsy with necroinflammatory exudate and atypical cells. Based on this workup he at least has local recurrence in the RLL, but I am also concerned for recurrent disease in the RUL given prior PET avid lesion in the RUL. Per review of prior notes: Patient initally presented with what appeared to be a 8.3cm RLL lesion and 2 cm RUL lesion, unclear if iplsateral lung metastatic disease or synchronus disease. After conferring with Dr. Escobar, it was unclear if there would be any benefit in providing neoadjuvant chemoIO given PD-L1 of 0% vs adjuvant therapy. Patient went directly to surgery where it was found that the large RLL lesion was primarily abscess with a pT1c lesion and no positive lymph nodes. As such, adjuvant chemotherapy was not indicated based off the resected disease. As the patient was not a candidate for a pneumonectomy, patient underwent SBRT to the RUL lesion -Today we reviewed the imaging and biopsy reports from the recent hospitalization. We discussed that this workup shows that there is at least a locoregional recurrence involving the RLL. We also discussed that given the new cavitary lesion in the RUL that I am concerned there is also recurrence in this area despite the biopsy not clearly showing this. -At this time we discussed that with evidence of locoregional recurrence it is necessary to evaluate for distant or metastatic recurrence with PET scan and MRI brain. We discussed possible need for additional biopsies if there is concern for distant recurrence. -We discussed that treatment options are different for locoregional recurrence vs distant recurrence and the above workup is needed to determine which treatment options might be reasonable. -I have previously request additional molecular testing on recent biopsy for PDL1 expression and actionable mutations -Will obtain Guardant 360 testing today. -Will reach out to his thoracic surgeon and radiation oncologist to discuss patient as well 2.) Normocytic anemia: recent iron studies while admitted suggest anemia of inflammation and or iron deficiency -Will repeat CBC and CMP today to monitor -check solulble transferrin receptor to see if we can distinguish if inflammation or iron deficiency is the primary automation driver of the anemia. 3.) History of high risk prostate cancer s/p ADT and EBRT -Will repeat PSA today Written and verbal health teaching given to patient, patient verbalizes understanding and agrees with treatment plan. PAST MEDICAL HISTORY Diagnosis Date Abdominal aortic aneurysm without rupture Elevated PSA Hearing loss HTN (hypertension) Lumbosacral neuritis Malignant neoplasm of prostate (HCC) Other and unspecified hyperlipidemia Prostate cancer (HCC) 2020 xrt at [facility] [place] Smoker former quit 2021 Spinal stenosis of lumbar region with neurogenic claudication PAST SURGICAL HISTORY Procedure Laterality Date COLONOSCOPY 05/28/2008 HERNIA REPAIR HX age 20 PROSTATE BIOPSY HX 2020 REMOVAL OF LUNG,LOBECTOMY Right 11/15/2023 Robotic-assisted right lower lobectomy with right lower lobe bronchoplasty closure of airway and mediastinal and hilar lymph node dissection, intercostal and phrenic nerve block FAMILY HISTORY Problem Relation Age of Onset other (high blood pressure [Other]) Mother Diabetes Mother Hearing Loss Mother Prostate Cancer Other Social History Tobacco Use Smoking status: Former Current packs/day: 0.00 Average packs/day: 1 pack/day for 40.0 years (40.0 ttl pk-yrs) Types: Cigarettes Start date: 07/1981 Quit date: 07/2021 Years since quittin.3 Passive exposure: Past Smokeless tobacco: Never Vaping Use Vaping status: Never Used Substance Use Topics Alcohol use: Not Currently Alcohol/week: 6.0 standard drinks of alcohol Types: 6 Glasses of wine per week Drug use: No ALLERGIES: ALLERGIES No Known Allergies CURRENT OUTPATIENT MEDICATIONS: ampicillin-sulbactam (UNASYN) 3 g in NaCl 0.9% 100 mL Vial-Bag Inject 100 mL intravenously every 6 hours. budesonide (PULMICORT) 0.5 mg/2 mL nebulizer solution Use 2 mL via nebulizer two times a day. metoprolol succinate ER (TOPROL XL) 25 mg 24 hr tablet Take 1 tablet by mouth once daily. atorvastatin (LIPITOR) 20 mg tablet Take 1 tablet by mouth once daily. fluticasone-salmeterol (WIXELA INHUB) 250-50 mcg/dose inhaler Inhale 1 puff as instructed two times a day. albuterol HFA (PROVENTIL HFA, VENTOLIN HFA) 90 mcg/actuation inhaler Inhale 2 puffs as instructed every 4 hours as needed. (Patient not taking: Reported on 10/24/2024) gabapentin (NEURONTIN) 300 mg capsule TAKE 2 CAPSULES BY MOUTH 3 TIMES A DAY REVIEW OF SYSTEMS: Review of systems unremarkable except as noted in the HPI. PHYSICAL EXAMINATION: VITAL SIGNS: There were no vitals taken for this visit. Physical Exam Constitutional: General: He is not in acute distress. Appearance: Normal appearance. HENT: Head: Normocephalic and atraumatic. Eyes: Extraocular Movements: Extraocular movements intact. Pulmonary: Effort: Pulmonary effort is normal. No respiratory distress. Skin: Coloration: Skin is not jaundiced. Neurological: General: No focal deficit present. Mental Status: He is alert. Mental status is at baseline. LABS: Latest Ref Rng AND Units 11/05/2024 CBC WBC 3.70 - 11.00 k/uL 9.62 RBC 4.20 - 6.00 m/uL 3.62 Hemoglobin 13.0 - 17.0 g/dL 10.8 Hematocrit 39.0 - 51.0 % 33.8 MCV 80.0 - 100.0 fL 93.4 MCH 26.0 - 34.0 pg 29.8 MCHC 30.5 - 36.0 g/dL 32.0 RDW-CV 11.5 - 15.0 % 14.6 Platelet Count 150 - 400 k/uL 410 MPV 9.0 - 12.7 fL 8.6 Latest Ref Rng AND Units 11/05/2024 CMP Sodium 136 - 144 mmol/L 141 Potassium 3.7 - 5.1 mmol/L 3.3 Chloride 98 - 107 mmol/L 107 CO2 22 - 30 mmol/L 24 Glucose 74 - 99 mg/dL 109 BUN 9 - 24 mg/dL 8 Creatinine 0.73 - 1.22 mg/dL 0.60 EGFR >=60 mL/min/1.73m? 103 Calcium 8.5 - 10.2 mg/dL 8.4 No results found for: TSH Elias Charles MD Medical Decision Making: Problems: High: Chronic illness with severe change Data: Unique source(s) for external note(s) reviewed: 3+ Unique test result(s) reviewed: 3+ Unique test(s) ordered: 3+ Risk: Low: Low risk from testing/treatment Medical Decision Making Level: 4 - Moderate I spent a total of 40 minutes on the date of the service which included preparing to see the patient, [id number] patient care, completing clinical documentation, obtaining and/or reviewing separately obtained history, performing a medically appropriate examination, counseling and educating the patient/family/caregiver, and ordering medications, tests, or procedures. OFELIA Observed: 11/19/2024 12:00 AM Status: COMPLETED [facility] Telephone (RADRST) STEVIE ANGELES ([id number]) 1950 M DEF Date Time Provider Department 11/19/24 ELIAS GOSS RADALVERTO During your visit today, we recorded the following information about you: Elias Goss MD 11/19/2024 2:11 PM Signed Diogenes Victor 11/19/2024 2:36 PM Signed Left a voicemail for patient to call back so we can help schedule a follow up Allergies As of Date: 11/19/2024 (No Known Allergies) Date Reviewed: 11/19/2024 Reviewed by: Elias Charles MD - Fully Assessed Reason for Visit: Appointment [186] Prescriptions as of 11/19/2024 - iv contrast (will be provided with radiology test) MRI Brain Inject, intravenously, once for 1 dose.No IV access, insert saline lock prior to beginning of sedation, infusion, injection of imaging exam.Discontinue saline lock post exam. If Pt. has a central line or IVAD, may access for administration according to line specific nursing protocol.Once exam is complete flush line and de-access according to line specific nursing protocol in the MR contrast administration guidelines link - acetaminophen (TYLENOL) 325 mg tablet Take 650 mg by mouth every 6 hours as needed. - ampicillin-sulbactam (UNASYN) 3 g in NaCl 0.9% 100 mL Vial-Bag Inject 100 mL intravenously every 6 hours. - budesonide (PULMICORT) 0.5 mg/2 mL nebulizer solution Use 2 mL via nebulizer two times a day. - metoprolol succinate ER (TOPROL XL) 25 mg 24 hr tablet Take 1 tablet by mouth once daily. - atorvastatin (LIPITOR) 20 mg tablet Take 1 tablet by mouth once daily. - fluticasone-salmeterol (WIXELA INHUB) 250-50 mcg/dose inhaler Inhale 1 puff as instructed two times a day. - albuterol HFA (PROVENTIL HFA, VENTOLIN HFA) 90 mcg/actuation inhaler Inhale 2 puffs as instructed every 4 hours as needed. 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] 04/24/2023 Prostate cancer (HCC) [C61] 09/11/2023 Paroxysmal atrial fibrillation (HCC) [I48.0] 09/11/2023 Cancer of lower lobe of right lung (HCC) [C34.3*11/15/2023 Postoperative pain [G89.18] 11/16/2023 COPD (chronic obstructive pulmonary disease) (H*11/17/2023 Lung abscess (HCC) [J85.2] 11/17/2023 Pleural effusion, left [J90] 11/17/2023 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] 11/17/2023 Pneumothorax [J93.9] 05/10/2024 Hearing loss [H91.90] 05/10/2024 Cavitary lesion of lung [J98.4] 10/24/2024 Leukocytosis [D72.829] 10/24/2024 10/25/2024 Anemia [D64.9] 10/24/2024 Hypocalcemia [E83.51] 10/24/2024 10/25/2024 Hypomagnesemia [E83.42] 10/24/2024 10/25/2024 Elevated troponin [R79.89] 10/24/2024 10/25/2024 Sepsis (HCC) [A41.9] 10/25/2024 Malignant neoplasm of upper lobe of right lung *10/25/2024 S/P lobectomy of lung [Z90.2] 10/25/2024 Thoracic lymphadenopathy [R59.0] 10/25/2024 Ex-smoker [Z87.891] 10/25/2024 Bacterial pneumonia [J15.9] 11/01/2024 Hypoxemia [R09.02] 11/01/2024 Folate deficiency [E53.8] 11/01/2024 Encounter Status:Closed by ELIAS GOSS on 11/19/24 REFERRAL FOR ADDITIONAL BIOMARKER AND MOLECULAR TESTING Collected: 11/14/2024 8:54 AM Status: F Source: [facility] Order Comment: Specimen Type : TISSUE SPECIMEN Ordering Facility: [facility] Address: [address] [place] [address] TYPE CODE TESTS RESULT OUT OF RANGE REFERENCE UNITS LAB APMOLR REFERRAL FOR ADDITIONAL BIOMARKER AND MOLECULAR TESTING Result Comment: Request has been received for evaluation and the results will be issued separately. Performed By: #### APMOL ### # [facility] CLIA [id number] [address] [place] [id number] [place] CASE MANAGEM Observed: 11/05/2024 2:36 PM Status: COMPLETED Source: [facility] HNO ID: [id number] Author: MALIA ROWELL RN Service: Care Management Author Type: Registered Nurse Type: Care Mgt Progress Note Filed: 11/05/2024 14:38 Note Text: CARE MANAGEMENT DISCHARGE NOTE SERVICE DATE: November 05, 2024 SERVICE TIME: 2:36 PM Admission Date: 10/24/2024 LOS: 12 days Discharge Arrangement Discharge Arrangement: [facility] Facility Was an expedited discharge program used?: No Services Arranged SNF Placement Provider Name: Gilma Caregiver Assessment Caregiver is ready, willing and able to meet the patient's needs as recommended by the inter-professional team: Yes Name of Caregiver: [facility] Transportation Arrangements Transportation Arrangements: Ambulance Transportation Agency and Phone #:: [facility] [phone] Date of Trip: 11/05/24 Time of Trip: 1530 Type of Service: BLS Non-emergency Is Patient Medicaid Pending?: No Was transportation financial coverage discussed with family?: 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, 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 Aware of potential cost associated with medical transport SIGNATURE: Malia Rowell RN PATIENT NAME: Stevie Angeles DATE: November 05, 2024 TIME: 2:36 PM CNDS Observed: 11/05/2024 12:13 PM Status: COMPLETED Source: [facility] HNO ID: [id number] Author: PATRICIA SLOAN MD Service: Hospital Medicine Author Type: Physician Type: Discharge Summary Filed: 11/05/2024 12:17 Note Text: DISCHARGE SUMMARY PATIENT NAME: Stevie Angeles Code Status: Prior Highest Readmission Risk Score: 24 The 30 day readmissions risk score is derived from an internally validated risk model which evaluates patient level characteristics, utilization history, medication orders and lab results up until the day of discharge. Patients with a score of 39 or above are considered highest risk for readmission. Specific patient level drivers will be listed at the bottom of the summary. Admission Information Admission Information ADMIT DATE: 10/24/2024 DISCHARGE DATE: 11/05/24 MY DOCTORS AND MEDICAL TEAM: My Main Hospital Doctor: Patricia Sloan MD Primary Care Provider: Praful Su MD My Medical Team Members: Treatment Team: Attending Provider: Patricia Sloan MD Consulting: Kurt Pereira MD Primary Service: 5, [facility] Consulting: Kevin Cantu MD MY CONDITION AT DISCHARGE: Stable REASON I WAS IN THE HOSPITAL: Fast heart rate SUMMARY OF WHAT HAPPENED WHILE I WAS IN THE HOSPITAL: You were sent into the hospital from your primary care office due to fast heart rate. You were found to be in atrial flutter which improved with IV medications. You were seen by cardiology and was started on metoprolol for control of heart rate. CT scan of the chest was done which showed an abscess/lesion in your lung. You were sent to [facility] and underwent bronchoscopy. You were treated with IV antibiotics. The results from the bronchoscopy showed concern for cancer reoccurrence. You should follow-up with oncology as outpatient. You are being discharged to [facility] facility and will continue taking IV antibiotics infectious disease recommendations. OTHER PROBLEMS/DIAGNOSIS: Principal Problem: Paroxysmal atrial fibrillation (HCC) Active Problems: COPD (chronic obstructive pulmonary disease) (HCC) Lung abscess (HCC) Primary hypertension Mixed hyperlipidemia Cigarette nicotine dependence in remission Infrarenal abdominal aortic aneurysm (AAA) without rupture Prostate cancer (HCC) Cancer of lower lobe of right lung (HCC) Cavitary lesion of lung Anemia Sepsis (HCC) Malignant neoplasm of upper lobe of right lung (HCC) S/P lobectomy of lung Thoracic lymphadenopathy Ex-smoker Bacterial pneumonia Hypoxemia Folate deficiency Resolved Problems: Leukocytosis Hypocalcemia Hypomagnesemia Elevated troponin OPERATIONS PERFORMED WHILE IN THE HOSPITAL: None IMPORTANT TEST/PROCEDURES: Bronchoscopy TEST RESULTS NOT AVAILABLE AT THIS TIME: No pending results Discharge Disposition Discharge Disposition: [facility] Facility - Less than 30 Days Additional Provider to Provider Information: Stevie Angeles is a 74 year old male presented with past medical history of AAA, A-fib (postop in October 2023, not on anticoagulant), COPD, hypertension, 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 Patient was at his PCP office for follow-up visit, he noted to have elevated heart rate 170, patient reported shortness of breath. He also reports chronic cough noticed in the worsening of cough and productive of sputum. In ED BP 83/55, elevated heart rate. Patient was in SVT, he was given adenosine, converted to A-fib and then to sinus rhythm. CTA chest, thick-walled right upper lobe cavity mass is noted with an associated air-fluid level. May be infectious/inflammatory process. Malignancy not excluded. Mediastinal lymphadenopathy. In ED patient was given gabapentin, IV Lopressor, p.o. Lopressor. He was given 1 L normal saline bolus, IV vancomycin and Zosyn. Patient admitted to telemetry for SVT in setting of paroxysmal A-fib. Patient converted to A-fib After receiving adenosine and then converted to sinus rhythm after receiving IV Lopressor and p.o. Lopressor. Patient was also evaluated by cardiology for SVT. Metoprolol dose was increased to 25 mg twice daily. Right upper lobe cavity mass, pulmonology consulted, underwent bronchoscopy at [facility] on 10/29/2024. Showed right upper lobe cavity mass, right lower lobe endobronchial disease at stump, purulent secretions from right upper lobe. Prelim cytology was suggestive of benign appearing lymphoid tissue in node level 2R, node level 4R, node level 4L and node level 11R, suggestive of squamous cell carcinoma in right lower lobe endobronchial biopsy, and suggestive of benign acute inflammatory changes in right upper lobe. bacterial cultures growing E. coli. Concern for bacterial pneumonia and lung abscess. Patient was continued on IV vancomycin and Zosyn. Infectious disease was consulted and recommended treatment with IV Unasyn for 6 weeks followed by repeat CT scan Patient is being discharged to SNF with a PICC line that was placed on 11/04/2024 on IV unasyn till 12/02/24 per Id recommendations. He will need repeat CT scan of his chest after completion of iv antibiotics. He needs to follow up with oncology as outpatient. Treatment Team: Attending Provider: Patricia Sloan MD Consulting: Kurt Pereira MD Primary Service: , [facility] Consulting: Kevin Cantu MD FINAL DIAGNOSIS: lung abscess Active Hospital Problems Diagnosis POA Paroxysmal atrial fibrillation (HCC) Yes COPD (chronic obstructive pulmonary disease) (HCC) Yes Lung abscess (HCC) Yes Bacterial pneumonia Yes Hypoxemia Yes Folate deficiency Yes Sepsis (HCC) Yes Malignant neoplasm of upper lobe of right lung (HCC) Yes S/P lobectomy of lung Yes Thoracic lymphadenopathy Yes Ex-smoker Yes Cavitary lesion of lung Yes Anemia Yes Cancer of lower lobe of right lung (HCC) Yes Prostate cancer (HCC) Yes Infrarenal abdominal aortic aneurysm (AAA) without rupture Yes Cigarette nicotine dependence in remission Yes Mixed hyperlipidemia Yes Primary hypertension Yes Resolved Hospital Problems Diagnosis POA Leukocytosis Yes Hypocalcemia Yes Hypomagnesemia Yes Elevated troponin Yes Transitions of Care Critical Issues: IMAGING FOLLOW-UP: CT scan of his chest SPECIALIST FOLLOW-UP: oncology LABS AND PROCEDURES PENDING AT DISCHARGE: FOLLOW-UP APPOINTMENTS ALREADY SCHEDULED WITH A [facility] PROVIDER: Future Appointments Date Time Provider Department Center 11/15/2024 11:00 AM PET INJECTION MOBILE [facility] 11/15/2024 12:[address] [facility]BI[facility] 11/19/2024 10:30 AM Elias Charles MD [facility] Med C 11/21/2024 12:[address] [facility] 11/22/2024 9:30 AM Romina Bedolla APRN.PROGRAM SUPPORT ASSISTANT [facility] [address] 12/12/2024 1:00 PM LAB [facility] 12/17/2024 2:30 PM [facility] 12/24/2024 11:00 AM NABEEL RESIDENT PHYSICIAN IN RADIOLOGY [facility] [place] [facility] 12/24/2024 11:30 AM Malia Egan DO [facility] [place] [facility] C 03/13/2025 3:00 PM [facility] ALLERGIES No Known Allergies DISCHARGE MEDICATION: Medication List START taking these medications ampicillin-sulbactam 3 g in NaCl 0.9% 100 mL Vial-Bag Commonly known as: UNASYN Inject 100 mL intravenously every 6 hours. budesonide 0.5 mg/2 mL nebulizer solution Commonly known as: PULMICORT Use 2 mL via nebulizer two times a day. metoprolol succinate ER 25 mg 24 hr tablet Commonly known as: TOPROL XL Take 1 tablet by mouth once daily. Start taking on: November 06, 2024 CONTINUE taking these medications albuterol HFA 90 mcg/actuation inhaler Commonly known as: PROVENTIL HFA, VENTOLIN HFA Inhale 2 puffs as instructed every 4 hours as needed. atorvastatin 20 mg tablet Commonly known as: LIPITOR Take 1 tablet by mouth once daily. fluticasone-salmeterol 250-50 mcg/dose inhaler Commonly known as: WIXELA INHUB Inhale 1 puff as instructed two times a day. gabapentin 300 mg capsule Commonly known as: NEURONTIN TAKE 2 CAPSULES BY MOUTH 3 TIMES A DAY STOP taking these medications lisinopril-hydroCHLOROthiazide 20-12.5 mg per tablet Commonly known as: ZESTORETIC senna-docusate 8.6-50 mg per tablet Commonly known as: SENNA WITH DOCUSATE SODIUM Discharge Physical Exam: VITAL SIGNS: BP 117/67 Pulse 77 Temp 37.9 ?C (100.2 ?F) (Oral) Resp 18 Ht 177.8 cm (5' 10) Wt 73.5 kg (162 lb 0.6 oz) SpO2 97% BMI 23.25 kg/m? GENERAL: Alert, no distress, cooperative LUNGS: Lungs clear to auscultation, Good diaphragmatic excursion CARDIAC: Normal S1 and S2; no rubs, murmurs, or gallops ABDOMEN: Abdomen soft, non-tender, BS normal, No masses or organomegaly EXTREMITIES: Extremities normal, no deformities, edema, clubbing or skin discoloration. Good capillary refill., No ulcers NEURO: Grossly normal cognition, motor function, and cranial nerves III-XII The patient's risk for 30-day readmission is determined using the following contributing factors: Predictive Model Details 24% (Moderate) Factor Value Calculated 11/05/2024 05:19 15% Admissions (365d) 4 [facility] READMISSION RISK Model 12% Albumin (Avg) 2.6 -9% [place] 4 -8% ED Encounter 0 7% Facility [facility] -7% Sodium (Avg) 140 6% procedure count 15 6% Hospital [address] 6% Zip Code [facility] -6% Admissions (60d) 1 Plan of care discussed with Patient and RN I have performed the [id number] and relevant services for a total of >30 minutes. SIGNATURE: Patricia Sloan MD DATE: November 05, 2024 TIME: 12:13 PM CASE MANAGEM Observed: 11/05/2024 9:58 AM Status: COMPLETED Source: [facility] HNO ID: [id number] Author: MALIA ROWELL RN Service: Care Management Author Type: Registered Nurse Type: Care Mgt Progress Note Filed: 11/05/2024 09:58 Note Text: CARE MANAGEMENT PROGRESS NOTE SERVICE DATE: 11/05/2024 SERVICE TIME: 9:58 AM LOS: 12 days IMM Follow Up Copy Given: Yes Copy given to:: Patient Method: In Person SIGNATURE: Malia Rowell RN PATIENT NAME: Stevie Angeles DATE: November 05, 2024 TIME: 9:58 AM CONSULT PROG Observed: 11/05/2024 6:44 AM Status: COMPLETED Source: [facility] HNO ID: [id number] Author: KURT PEREIRA MD Service: Infectious Disease Author Type: Physician Type: Consult Progress Note Filed: 11/05/2024 22:15 Note Text: INFECTIOUS DISEASE PROGRESS NOTE Patient Name: Stevie Angeles INTERVAL HISTORY: PICC line placed Afebrile No new complaints Patient Active Hospital Problem List: Paroxysmal atrial fibrillation (HCC) Date Noted: 09/11/2023 Primary hypertension Date Noted: 06/23/2010 Mixed hyperlipidemia Date Noted: 06/23/2010 Cigarette nicotine dependence in remission Date Noted: 02/14/2011 Infrarenal abdominal aortic aneurysm (AAA) without rupture Date Noted: 02/08/2021 Prostate cancer (HCC) Date Noted: 09/11/2023 Cancer of lower lobe of right lung (HCC) Date Noted: 11/15/2023 COPD (chronic obstructive pulmonary disease) (HCC) Date Noted: 11/17/2023 Lung abscess (HCC) Date Noted: 11/17/2023 Cavitary lesion of lung Date Noted: 10/24/2024 Anemia Date Noted: 10/24/2024 Sepsis (HCC) Date Noted: 10/25/2024 Malignant neoplasm of upper lobe of right lung (HCC) Date Noted: 10/25/2024 S/P lobectomy of lung Date Noted: 10/25/2024 Thoracic lymphadenopathy Date Noted: 10/25/2024 Ex-smoker Date Noted: 10/25/2024 Bacterial pneumonia Date Noted: 11/01/2024 Hypoxemia Date Noted: 11/01/2024 Folate deficiency Date Noted: 11/01/2024 ASSESSMENT: Stevie Angeles is a 74 year old male with tachycardia and leukocytosis, CT of the chest revealed thick-walled right upper lobe cavitary mass is noted with an associated air-fluid level. Differential includes primary lung abscess, could potentially be from aspiration and poor dentition versus malignancy. Plan: BAL cultures w E coli Suspect superinfected cavitary mass which could have been malignant. Plan on performing bronchoscopy/EBUS at [facility] on 10/29. Continue unasyn Negative Legionella and Streptococcus pneumonia urine antigen, pending mycoplasma pneumonia PCR on sputum. NR HIV 1/2 and pending TB QuantiFERON gold. CoPAT on chart. >30 min JUAN x 4-6 weeks w follow up imaging in 4 weeks. PICC placed I have reviewed and interpreted all lab test imaging studies and documentations from other healthcare providers I am monitoring antibiotics for side effects and toxicity MEDICATIONS: reviewed. Current Facility-Administered Medications Medication Dose Route Frequency NaCl 0.9% iv flush bag 20 mL INTRAVENOUS PRN guaiFENesin 600 mg ER tab(s) (MUCINEX) 600 mg ORAL q 12 H albuterol 2.5 mg /3 mL (0.083 %) 2.5 mg (PROVENTIL) 2.5 mg INHALATION QID budesonide 0.5 mg/2 mL 0.5 mg (PULMICORT) 0.5 mg INHALATION BID gabapentin 600 mg cap(s) (NEURONTIN) 600 mg ORAL TID metoprolol succinate ER 25 mg tab(s) (TOPROL XL) 25 mg ORAL DAILY acetaminophen 650 mg tab(s) (TYLENOL) 650 mg ORAL q 8 H ampicillin-sulbactam iv piggyback 3 g in NaCl 0.9% 100 mL Vial-Bag (UNASYN) 3 g INTRAVENOUS q 6 H benzocaine-menthol 1 lozenge (CEPACOL) 1 lozenge MUCOUS MEMBRANE (TOPICAL MOUTH AND THROAT) q 2 H PRN folic acid 1 mg tab(s) 1 mg ORAL DAILY PHYSICAL EXAM: Vital signs: BP 98/64 Pulse 77 Temp 36.5 ?C (97.7 ?F) (Oral) Resp 18 Ht 177.8 cm (5' 10) Wt 73.5 kg (162 lb 0.6 oz) SpO2 93% BMI 23.25 kg/m? Temp (48hrs), Av.7 ?C (98.1 ?F), Min:36.4 ?C (97.6 ?F), Max:37.2 ?C (98.9 ?F) General: alert, oriented, NAD Lungs: bilaterally clear to auscultation Heart: regular rate and rhythm Abdomen: soft, non tender, non distended, BS+ Extremities: no edema No rashes No joint inflammation Neck supple Lines ok PICC RUE No CVAT Lines, Drains, and Airways Line Duration Peripheral 10/27/24 0508 Left Wrist 22 Gauge 8 days Central Line Single Lumen 11/04/24 1527 Peripherally Inserted (PICC) Right Arm 4.0 [place] <1 day Drain Duration External Collection Device 10/24/24 2300 11 days Labs: reviewed Microbiology data: reviewed Imaging data: reviewed Evelia Fuchs, ELVIRA [phone] 11/05/2024 6:44 AM I personally saw and evaluated the patient. I reviewed the RIBBON HANKING MACHINE OPERATOR Hx, exam and MDM and I agree with the RIBBON HANKING MACHINE OPERATOR assessment and plan unless otherwise addended above. Kurt Pereira MD [phone] 11/05/2024 12:13 PM CBC PNL BLD AUTO Collected: 11/05/2024 6:39 AM Statu s: F Source: [facility] Order Comment: Specimen Type : BLOOD SPECIMEN Ordering Facility: [facility] Address: [address] [place] [address] TYPE CODE TESTS RESULT OUT OF RANGE REFERENCE UNITS LAB 6690-2(LOINC) WBC # Bld Auto 9.62 3.70-11.00 k/uL LAB 789-8(LOINC) RBC # Bld Auto 3.62 Low 4.20-6.00 m/uL LAB 718-7(LOINC) Hgb Bld-mCnc 10.8 Low 13.0-17.0 g/dL LAB 4544-3(LOINC) Hct VFr Bld Auto 33.8 Low 39.0-51.0 % LAB 787-2(LOINC) MCV RBC Auto 93.4 80.0-100.0 fL LAB 785-6(LOINC) MCH RBC Qn Auto 29.8 26.0-34.0 pg LAB 786-4(LOINC) MCHC RBC Auto-mCnc 32.0 30.5-36.0 g/dL LAB 49863-9(LOINC) RDW RBC-Rto 14.6 11.5-15.0 % LAB 777-3(LOINC) Platelet # Bld Auto 410 High 150-400 k/uL LAB 51361-0(LOINC) PMV Bld Auto 8.6 Low 9.0-12.7 fL LAB 771-6(LOINC) nRBC # Bld Auto <0.01 <0.01 k/uL Performed By: #### [id number] # ### [facility] CLIA [id number] [address] [place] [address] [place] MET[place] 2000 PNL SERPL Collected: 10/2024 6:39 AM Status: F Source: [facility] Order Comment: Specimen Type : BLOOD SPECIMEN Ordering Facility: [facility] Address: [address] [place] [address] [place] [id number] TYPE CODE TESTS RESULT OUT OF RANGE REFERENCE UNITS LAB 2345-7(LOINC) Glucose SerPl-mCnc 109 High 74-99 mg/dL Result Comment: The [place] [employer] (ADA) provides guidance for cutoff values for fasting glucose and random glucose. The ADA defines fasting as no caloric intake for at least 8 hours. Fasting plasma glucose results between 100 to 125 mg/dL indicate increased risk for diabetes (prediabetes). Fasting plasma glucose results greater than or equal to 126 mg/dL meet the criteria for diagnosis of diabetes. In the absence of unequivocal hyperglycemia, results should be confirmed by repeat testing. In a patient with classic symptoms of hyperglycemia or hyperglycemic crisis, random plasma glucose results greater than or equal to 200 mg/dL meet the criteria for diagnosis of diabetes. Reference: Standards of Medical Care in Diabetes 2016, [place] [employer] Association. Diabetes Care. 2016.39(Suppl 1). LAB 3094-0(LOINC) BUN SerPl-mCnc 8 Low 9-24 mg/dL LAB 2160-0(LOINC) Creat SerPl-mCnc 0.60 Low 0.73-1.22 mg/dL LAB 2951-2(LOINC) Sodium SerPl-sCnc 141 136-144 mmol/L LAB 2823-3(LOINC) Potassium SerPl-sCnc 3.3 Low 3.7-5.1 mmol/L LAB 2075-0(LOINC) Chloride SerPl-sCnc 107 98-107 mmol/L LAB 2028-9(LOINC) CO2 SerPl-sCnc 24 22-30 mmol/L LAB 77191-9(LOINC) Anion Gap SerPl-sCnc 10 8-15 mmol/L LAB 05528-5(LOINC) Calcium SerPl-mCnc 8.4 Low 8.5-10.2 mg/dL LAB 81914-2(LOINC) eGFRcr SerPlBld CKD-EPI 2020 103 >=60 mL/min/1. 73m??? Result Comment: Estimated Gl omerular Filtration Rate (eGFR) is calculated using the 2020 CKD-EPI creatinine equation. This equation utilizes serum creatinine, sex, and age as parameters. The creatinine assay has traceable calibration to isotope dilution-mass spectrometry. Refer to KDIGO guidelines for clinical interpretation. In patients with unstable renal function, e.g. those with acute kidney injury, the eGFR may not accurately reflect actual GFR. Performed By: #### 39091-7 # ### [facility] CLIA [id number] [address] [place] [address] [facility] PROGRESS Observed: 11/04/2024 5:14 PM Status: COMPLETED Source: [facility] HNO ID: [id number] Author: KURT PEREIRA MD Service: ? Author Type: Physician Type: Progress Notes Filed: 11/04/2024 17:15 Note Text: [facility] Outpatient Parenteral Antimicrobial Therapy (OPAT) Start Form Patient Info Patient MRN Patient Name Address Date of [id number] Stevie Angeles [address] [facility] [id number] 1950 Start Date 11/04/2024 Physician Group [facility] Diagnosis Group Diagnosis Thoracic: Lung abscess Micro-organism ESCHERICHIA COLI IV Antibiotics Antibiotic Dose Frequency Stop Date Ampicillin-Sulbactam 3 grams every 6 hours 12/02/2024 Lab Monitoring Plan Labs Frequency While on CBC/diff Creatinine Liver Function Tests every Monday every Monday every Monday Ampicillin-sulbactam Ampicillin-sulbactam Ampicillin-sulbactam OPAT Pharmacy Consult Yes Cath Care Protocol LINE CARE PER PROTOCOL: Change line dressing weekly and as needed. *Must use medicated disc (biopatch) or tegaderm CHG (chorhexedine gluconate) gel pad over insertion site and cover with transparent dressing* When the patient is on an intermittent IV antibiotic dosing schedule: [facility] method: 1) Administer normal saline 5ml IV to port. 2) Infuse IV antibiotic as ordered. 3) Administer normal saline 5ml IV to port. Labs may be drawn on Monday if Monday is a holiday. Stevie Angeles is a 74 year old male with tachycardia and leukocytosis, CT of the chest revealed thick-walled right upper lobe cavitary mass is noted with an associated air-fluid level. Differential includes primary lung abscess, could potentially be from aspiration and poor dentition versus malignancy. Plan: BAL cultures w E coli Suspect superinfected cavitary mass which could have been malignant. Plan on performing bronchoscopy/EBUS at [facility] on 10/29. Continue unasyn Follow up Provider Follow up date/time Appointment type Kurt Pereira MD 12/03/2024 In-person Provider Monitoring Treatment Course Kurt Pereira MD Address [address] [place] [address], [place] [address] Prescribing Provider's signature - electronically signed by Kurt Pereira MD on 11/04/24 at 5:15 PM CASE MANAGEM Observed: 11/04/2024 3:54 PM Status: COMPLETED Source: [facility] HNO ID: [id number] Author: PATRICIA SLOAN MD Service: Care Management Author Type: Registered Nurse Type: Care Mgt Progress Note Filed: 11/04/2024 15:56 Note Text: Attestation signed by Patricia Sloan MD at 11/04/2024 3:56 PM I agree with this note. Patricia Sloan MD 11/04/24 3:56 PM CARE MANAGEMENT PROGRESS NOTE SERVICE DATE: 11/04/2024 SERVICE TIME: 3:54 PM LOS: 11 days Physician Certification of Less Than 30 Days Skilled Needs Earliest Possible Discharge Date: 11/04/24 To the best of my knowledge, all information provided about the individual is a true and an accurate reflection of Stevie Angeles's needs. I certify that following the inpatient level of care, a post-acute nursing facility stay is required for less than 30 days related to the condition(s) for which the patient was treated during the inpatient level of care: Principal Problem: Paroxysmal atrial fibrillation (HCC) Active Problems: COPD (chronic obstructive pulmonary disease) (HCC) Lung abscess (HCC) Primary hypertension Mixed hyperlipidemia Cigarette nicotine dependence in remission Infrarenal abdominal aortic aneurysm (AAA) without rupture Prostate cancer (HCC) Cancer of lower lobe of right lung (HCC) Cavitary lesion of lung Anemia Sepsis (HCC) Malignant neoplasm of upper lobe of right lung (HCC) S/P lobectomy of lung Thoracic lymphadenopathy Ex-smoker Bacterial pneumonia Hypoxemia Folate deficiency Resolved Problems: Leukocytosis Hypocalcemia Hypomagnesemia Elevated troponin Attending Physician: Patricia Sloan MD SIGNATURE: Malia Rowell RN PATIENT NAME: Stevie Angeles DATE: November 04, 2024 TIME: 3:54 PM XR CHEST 1V PORT POST PICC -NB Observed: 11/04/2024 3:41 PM Status: F Source: [facility] * * *Final Report* * * DATE OF EXAM: Nov 04 2024 3:41PM MDX 5418 - XR CHEST 1V PORT POST PICC -NB / PROCEDURE REASON: Shortness of breath * * * * Physician Interpretation * * * * EXAMINATION: CHEST RADIOGRAPH (PORTABLE SINGLE VIEW AP) CLINICAL HISTORY: Check tip position following upper extremity catheter placement Shortness of breath MQ: [id number] COMPARISON: 08/19/2024 RESULT: Lines, tubes, and devices: - Interval placement of a right upper extremity catheter; the tip is in the mid SVC in satisfactory position - Other lines/tubes/devices: None. Lungs and pleura: Pleural thickening or loculated fluid laterally on the mid to upper right appears slightly more marked than previously. No definite mass or consolidation. Cardiomediastinal silhouette: Stable cardiomediastinal silhouette. Other: Gaseous distention of the stomach is suspected. IMPRESSION: See result. Agency Trainer: IMMANUEL Transcribe Date/Time: Nov 04 2024 3:42P Dictated by : DON DÍAZ MD This examination was interpreted and the report reviewed and electronically signed by: DON DÍAZ MD on Nov 04 2024 3:43PM EST [id number] PROCEDURE Observed: 11/04/2024 3:23 PM Status: COMPLETED Source: [facility] ID: [id number] Author: RAMESH CARDOZO RN Service: Radiology Author Type: Registered Nurse Type: Procedures Filed: 11/04/2024 15:27 Note Text: PICC NURSE INSERTION NOTE DATE OF PROCEDURE: November 04, 2024 TIME OF PROCEDURE: 1445 ORDERING PHYSICIAN: Dr Sloan INFORMED CONSENT: Obtained per hospital policy. INDICATION FOR LINE PLACEMENT: COPAT CONDITION OF LINE PLACEMENT: Sterile PRIMARY PROCEDURALIST: Dejah Sanchez DEFENSIVE DRIVING INSTRUCTOR: Ramesh Cardozo RN PRE-PROCEDURE REVIEW ALLERGIES No Known Allergies Known History of Upper Venous Thrombosis: No Known History of Permanent Pacemaker or Automated Implanted Cardiac Device: No Previous Breast Surgery of Lymph Node Dissection: No Estimated Glomerular Filtration Rate Date Value Ref Range Status 11/02/2024 100 >=60 mL/min/1.73m? Final Comment: Estimated Glomerular Filtration Rate (eGFR) is calculated using the 2020 CKD-EPI creatinine equation. This equation utilizes serum creatinine, sex, and age as parameters. The creatinine assay has traceable calibration to isotope dilution-mass spectrometry. Refer to KDIGO guidelines for clinical interpretation. In patients with unstable renal function, e.g. those with acute kidney injury, the eGFR may not accurately reflect actual GFR. eGFR- Date Value Ref Range Status 02/08/2021 >60 Final eGFR, Date Value Ref Range Status 03/08/2013 >60 Final History of Renal Disease: No Ultrasound Assessment Complete: Yes PROCEDURE NARRATIVE SAFE PRACTICE Hand Hygiene per Hospital Policy: Yes Skin Preparation Unit Dose Applicator Used: Chloraprep (CHG + alcohol), allowed to dry. Procedure Surface Cleansed with Antimicrobial Wipes: Yes Barriers Used by Proceduralist and all Assisting Personnel: Yes UNIVERSAL PROTOCOL / SAFETY CHECKLIST Procedure to be Performed: Ultrasound Guided Peripherally Inserted Central Catheter Sign In: A Moment of CARE was completed. Appropriate PPE (Personal Protective Equipment) worn by all providers involved with the procedure. Special equipment utilized ultrasound machine. Patient/Surrogate Stated/Verified: Patient name, Date of , Relevant allergies, and The intended procedure Time Out: Relevant labs, photos, and/or imaging studies have been reviewed. Intended patient and procedure match the source document(s) (e.g. consent, HANDP, associated studies [imaging, pathology]) match the intended patient and procedure. Consent obtained and matches the intended procedure. Yes. Correct side/site is not applicable. Medications required for this procedure are verified. Fire risk assessed and is not applicable. Implants: are not applicable. Sign Out: Specimens NA All instruments, equipment, possible retained foreign bodies are accounted for. Yes. The post-procedure plan of care has been communicated to the patient or surrogate and to patient's multidisciplinary team (including bedside nurse for hospitalized patients). CATHETER PLACEMENT Brand: Presentigo Lot: [id number] Number of Lumens: 1 Type of PICC: Power Injectable PICC Lumen Size: 4 [place] PLACEMENT TECHNIQUE Lidocaine: Yes, Lidocaine 1% Volume 2 mL Subcutaneous Modified Seldinger Technique Used to Place Line via the Right Basilic Ultrasound Guidance: Yes Number of Attempts at Insertion: 1 Ensured control of guidewire during all aspects of the procedure: Yes Accounted for entire guidewire upon removal: Yes Internal Length: 39 cm External Length: 1 cm Trim Length: 40 cm Mid-Arm Circumference: 24.5 centimeters Post Insertion Pain Level Related to Procedure: 0 Action Taken to Address Pain: None needed Verified Placement: Blood return and flushes with ease and Chest X-ray ordered Line was Flushed with 20 mL normal saline Line Secured with: Securement device Sterile Dressing Applied and Dated: Yes Sterile Caps on all Ports Prior to Leaving Procedure Area: Yes, Disinfection caps applied SPECIMENS: None COMPLICATIONS: None Patient Education Materials: Placed in chart [facility] Central Line Insertion checklist was utilized during this procedure. QUESTIONS or PROBLEMS: If you have any questions, please call the [facility] Interventional Radiology department at [phone], option #3. SIGNATURE: Ramesh Cardozo RN PATIENT NAME: Stevie Angeles DATE: November 04, 2024 TIME: 3:23 PM PAGER/CONTACT PHONE: NURSING PROG Observed: 11/04/2024 2:52 PM Status: COMPLETED Source: [facility] HNO ID: [id number] Author: ALETHA BURROWS RN Service: PICC Team Author Type: Registered Nurse Type: Nursing Progress Note Filed: 11/04/2024 14:53 Note Text: AMBULATORY PATIENT EDUCATION TOPIC: PICC insertion READINESS TO LEARN COGNITIVE ABILITY: Alert and oriented MOTIVATION TO LEARN: Interested FAMILY SUPPORT: Unable to assess - Family not present INSTRUCTION PROVIDED TO: Patient PATIENT LEARNS BEST BY: Individual Instruction Written Instruction - Hand-outs Multiple Methods FACTORS AFFECTING LEARNING: None PHYSICAL LIMITATIONS AFFECTING LEARNING: Sensory Deficit Hearing: Hard of Hearing Hearing Aid LEARNING RESPONSE DIAGNOSIS: bacteremia METHOD OF INSTRUCTION: Individual instruction Written instruction/Handouts Verbal instruction PATIENT / FAMILY RESPONSE: Verbalizes understanding of: POST-PROCEDURE INSTRUCTIONS-Correct actions to take to reduce post procedure complications PRE-PROCEDURE INSTRUCTIONS-Correct action to take to follow pre-procedure instructions FOLLOW-UP PLAN: Complete - No need for follow-up SUPPLEMENTAL MATERIAL: None REFERRAL (RECOMMENDATION): None Electronically Signed By: Aletha Burrows RN In Department: [facility] CASE MANAGEM Observed: 11/04/2024 2:13 PM Status: COMPLETED Source: [facility] HNO ID: [id number] Author: MALIA ROWELL RN Service: Care Management Author Type: Registered Nurse Type: Care Mgt Progress Note Filed: 11/04/2024 14:14 Note Text: CARE MANAGEMENT PROGRESS NOTE SERVICE DATE: 11/04/2024 SERVICE TIME: 10:27 AM LOS: 11 days Needs Prior to Discharge: IV Antibiotics, Other: See Comment, Discharge Transportation [place] of Choice Given: Yes Level of Care Discussed: Fdc Facility Provider List: Fdc Facility Provider list within the patient's requested geographic area shared with the patient/family: Yes within: 15 miles of zip code: [address] Metrics: Functional Status, Medication Reconciliation CM met with patient, nurse and MD at bedside to confirm DC plan PT/OR rec SNF Plan for CoPAT/PICC Patient requesting referral to [facility] Patient gives permission to speak with sister for alternative choices if needed CM called sister and updated. SNF choice emailed for additional SNF choices Will need final CoPAT/PICC/PRECERT/HENS prior to DC 11:15- CM received additional SNF choices from sister [facility]ing [facility], [facility], and [facility] Referrals sent 14:13- CM confirmed with sister SNF response Aware [facility] unable to accept. Agreeable with a dc to [facility] Still awaiting final CoPAT and will need to confirm with SN[facility] SIGNATURE: Malia Rowell RN PATIENT NAME: Stevie Angeles DATE: November 04, 2024 TIME: 10:27 AM PROGRESS Observed: 11/04/2024 1:00 PM Status: COMPLETED Source: [facility] HNO ID: [id number] Author: PATRICIA SLOAN MD Service: Hospital Medicine Author Type: Physician Type: Progress Notes Filed: 11/04/2024 13:01 Note Text: DEPARTMENT OF HOSPITAL MEDICINE PROGRESS NOTE SERVICE DATE: 11/04/2024 SERVICE TIME: 1:00 PM Hospital Medicine/Primary Attending: Patricia Sloan MD NIGHT AND WEEKEND COVERAGE: [facility] COVERAGE: Days: [phone], please page attending physician. Nights: [phone], please page [place] [facility] Night coverage pager [phone]. Subjective INTERVAL HPI: - very hard of hearing - Discussed with sister and was able to give SNF choices - Discussed with jefe Santiago for PICC line Current Facility-Administered Medications Medication Dose Route Frequency NaCl 0.9% iv flush bag 20 mL INTRAVENOUS PRN guaiFENesin 600 mg ER tab(s) (MUCINEX) 600 mg ORAL q 12 H albuterol 2.5 mg /3 mL (0.083 %) 2.5 mg (PROVENTIL) 2.5 mg INHALATION QID budesonide 0.5 mg/2 mL 0.5 mg (PULMICORT) 0.5 mg INHALATION BID gabapentin 600 mg cap(s) (NEURONTIN) 600 mg ORAL TID metoprolol succinate ER 25 mg tab(s) (TOPROL XL) 25 mg ORAL DAILY acetaminophen 650 mg tab(s) (TYLENOL) 650 mg ORAL q 8 H ampicillin-sulbactam iv piggyback 3 g in NaCl 0.9% 100 mL Vial-Bag (UNASYN) 3 g INTRAVENOUS q 6 H benzocaine-menthol 1 lozenge (CEPACOL) 1 lozenge MUCOUS MEMBRANE (TOPICAL MOUTH AND THROAT) q 2 H PRN folic acid 1 mg tab(s) 1 mg ORAL DAILY lidocaine 10 mg/mL (1 %) 10-100 mg injection (XYLOCAINE) 1-10 mL INTRADERMAL DIRECTED PRN Objective PHYSICAL EXAM: BP 140/71 Pulse 84 Temp (Src) 98 (Axillary) Resp 19 Ht 5' 10 (1.78m) Wt 162 lb 0.6 oz (73.5kg) SpO2 97% BMI 23.25 kg/(m2). O2 Therapy: Room Air Physical Exam Performed Alert Hard of hearing CV RRR Lungs scattered crackles Abdomen soft, nontender No lower extremity edema Lines, Drains, and Airways Line Duration Peripheral 10/27/24 0508 Left Wrist 22 Gauge 8 days Drain Duration External Collection Device 10/24/24 2300 10 days Reviewed lines and needs to be continued: REASONS: Intravenous antibiotics DATA: Diagnostic tests reviewed for today's visit: Most recent imaging CBC, Coags, BMP, Mg, Phos Recent Labs 11/02/24 0432 WBC 8.77 HB 10.9* HCT 35.1* PLT 392 NA 140 K 4.0 CHLOR 104 CO2 29 BUN 9 CREAT 0.65* GLUC 107* CA 8.5 MG 1.9 P 2.7 Liver Function, Amylase, AND Lipase Recent Labs 11/02/24 0432 ALB 2.6* HOSPITAL COURSE: Stevie Angeles is a 74 year old male presented with past medical history of AAA, A-fib (postop in October 2023, not on anticoagulant), COPD, hypertension, 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 Patient was at his PCP office for follow-up visit, he noted to have elevated heart rate 170, patient reported shortness of breath. He also reports chronic cough noticed in the worsening of cough and productive of sputum. Patient developed A-fib RVR in October 2023 after right lower Lobectomy. In ED BP 83/55, elevated heart rate. Patient was in SVT, he was given adenosine, converted to A-fib and then to sinus rhythm. WBC 12.07, hemoglobin 11.8, platelets 448. Magnesium 1.6 rest of BMP unremarkable. Troponin 39, then 35 and 39. CTA chest, thick-walled right upper lobe cavity mass is noted with an associated air-fluid level. May be infectious/inflammatory process. Malignancy not excluded. Mediastinal lymphadenopathy. He received 612 mg of adenosine by EMS. In ED patient was given gabapentin, IV Lopressor, p.o. Lopressor. He was given 1 L normal saline bolus, IV vancomycin and Zosyn. Patient admitted to telemetry for SVT in setting of paroxysmal A-fib. Patient converted to A-fib After receiving adenosine and then converted to sinus rhythm after receiving IV Lopressor and p.o. Lopressor. Patient was also evaluated by cardiology for SVT. Metoprolol dose was increased to 25 mg twice daily. Right upper lobe cavity mass, pulmonology consulted, underwent bronchoscopy at [facility] on 10/29/2024. Showed right upper lobe cavity mass, right lower lobe endobronchial disease at stump, purulent secretions from right upper lobe. Prelim cytology was suggestive of benign appearing lymphoid tissue in node level 2R, node level 4R, node level 4L and node level 11R, suggestive of squamous cell carcinoma in right lower lobe endobronchial biopsy, and suggestive of benign acute inflammatory changes in right upper lobe. bacterial cultures growing E. coli. Concern for bacterial pneumonia and lung abscess. Patient was continued on IV vancomycin and Zosyn. Infectious disease was consulted. Vancomycin was stopped, Zosyn continued. 10/25/2024 overnight patient developed hypotension, 500 cc of normal saline bolus given. Home hydrochlorothiazide and lisinopril has been on hold. Overall blood pressure has been stable. PT, OT consulted. Patient seen by OT, SNF placement is recommended. Assessment AND Plan Paroxysmal atrial fibrillation (HCC) Present on Admission: Yes HR of 170s at PCP office, given 6 AND 12 mg of Adenosine by EMS for possible SVT Converted to NSR after IV and PO Lopressor HsT 39, 35, 39 H/o post-op afib, not on rate controlling meds or AC Cardiology consulted, started on metoprolol. Anticoagulant contraindicated due to increased bleeding risk. Discontinue Lovenox Echo, LV normal size, EF 55%. LV diastolic function was not evaluated due to A-fib. Right ventricle normal size, right ventricular systolic function normal. Left atrial cavity mildly dilated. No significant valvular abnormalities. Visualized aorta dilated maximal dimension 4.5 cm. 1+ tricuspid regurgitation. Cancer of lower lobe of right lung (HCC) Present on Admission: Yes Cavitary lesion of lung Present on Admission: Yes H/o cancer of RLL s/p lobectomy in 10/2023, at that time appeared more abscess and chemotherapy was not recommended CTA chest shows thick-walled right upper lobe cavitary mass is noted with an associated air-fluid level. This may be an infectious/inflammatory process as it was not present on the exam from 05/08/2024. Malignancy is not excluded. Mediastinal lymphadenopathy may be reactive. WBC 12.07 w/LS, trended up to 19, now improved to 10.74. Blood cultures no growth. Sputum cultures growing E. coli. Urine Legionella negative, HIV negative, mycoplasma negative. MRSA nasal swab negative. Was on vancomycin and Zosyn, vancomycin stopped, currently on Unasyn Procalcitonin 0.21, MRSA not detected Pulmonary consult appreciated ID consulted Heme-onc follow-up outpatient Bronchoscopy at [facility] Completed. Bacterial cultures growing E. Coli Will need PICC line on discharge Anemia Present on Admission: Yes Hgb 11.8 on admit, baseline ~12-13 HANDH stable Mixed hyperlipidemia Present on Admission: Yes Cont statin Infrarenal abdominal aortic aneurysm (AAA) without rupture Present on Admission: Yes Stable Prostate cancer (HCC) Present on Admission: Yes S/p XRT COPD (chronic obstructive pulmonary disease) (HCC) Present on Admission: Yes No s/s of exacerbation Cont home inhaler Lung abscess (HCC) Present on Admission: Yes Sepsis (HCC) Present on Admission: Yes Malignant neoplasm of upper lobe of right lung (HCC) Present on Admission: Yes SP bronchoscopy on 11/16/2024, showing squamous cell carcinoma keratinizing type. Patient follows with Dr. Kevin Gustafson. S/P lobectomy of lung Present on Admission: Yes Thoracic lymphadenopathy Present on Admission: Yes Ex-smoker Present on Admission: Yes Bacterial pneumonia Present on Admission: Yes Cigarette nicotine dependence in remission Present on Admission: Yes Primary hypertension Present on Admission: Yes Stable, cont home meds Hypoxemia Present on Admission: Yes Folate deficiency Present on Admission: Yes Medication and Non-Pharmacologic VTE Prophylaxis/Anticoagulants 10/24/24 3263 activity - mobilize patient (sd,oh) VTE Prophylaxis: VTE prophylaxis appropriate Disposition: To be determined, SNF versus C. Plan of care discussed with Provider, RN, Patient Plan communicated to: Patient SIGNATURE: Patricia Sloan MD PATIENT NAME: Stevie Angeles DATE:11/04/24 TIME:1:01 PM THERAPY NT Observed: 11/04/2024 11:10 AM Status: COMPLETED Source: [facility] HNO ID: [id number] Author: ALEX MAJOR OTR/Umberto Service: Occupational Therapy Author Type: Occupational Therapist Type: Therapy (PT/OT/Speech/Resp) Filed: 11/04/2024 11:35 Note Text: Summary: OT precert note Occupational Therapy Treatment Summary SERVICE DATE: 11/04/2024 SERVICE TIME: 1110 to 1128 ROOM: [place] [id number] OT 6 Clicks Score: 19 DISCHARGE RECOMMENDATIONS Subacute/SNF Recommended Discharge Disposition Due to: Functional deficits requiring ongoing therapy service prior to discharge home., Patient requires daily (5x/week) skilled therapy at next level of care., ADL impairment, Anticipated community discharge, Functional status decline, Requires multiple therapy disciplines Anticipated Discharge Needs: Physical Assist at Home, Supervision at Home Physical Assist at Home for: Cleaning, Laundry, Meals, Medication Management, Stairs, Safety, Self Care, Shopping, Transportation Supervision at Home due to: Decreased safety awareness ASSESSMENT Response to Therapy Interventions: Good Participation in Activities, On-Track to Achieve Discharge Goals PRECAUTIONS Fall Risk, Lines/Tubes/Drains CURRENT HOSPITAL COURSE Admitted SVT/A-fib, Right upper lobe cavity mass, pulmonology consulted, plan for bronchoscopy and biopsy at main campus 10/29 Relevant Past Medical History: HTN, HLD, hearing loss, malignant neoplasm of prostate, AAA, lumbosacral neuritis, spinal stenosis of lumbar region, lung lobectomy, hernia repair HOME LIVING Patient Lives With: Self/Alone Assistance Available: PRN (sister stops by, and son on occasion but he works a lot) Entry To Home: Stairs Number Of Stairs Into Home: 3 Number Of Stairs To Bed/Bath: one story home Tub/Shower Type: walk in shower Laundry: basement patient completes Equipment Owned: Other: See Comment (none) PRIOR FUNCTIONAL LEVEL Within Functional Limits Patient reports independent with bathing and dressing, no device for functional mobility, + driving SUBJECTIVE Patient supine in bed [id number] agreeable to OT COGNITION Responsiveness: Alert, Awake Follows Commands: Cueing Needed Cueing to Follow Commands: Minimum THERAPY DIAGNOSIS Reduced mobility-other, Decreased activities of daily living (ADL), Unsteadiness on feet, General symptoms and signs-other TREATMENT INTERVENTIONS Self Correction Management (89665) Timed Code Treatment (minutes): 18 TRAINING AND EDUCATION PROVIDED Benefits of In-Hospital Mobility, Discharge Planning, Functional Mobility Involving ADLs, Grooming Tasks, Role of Occupational Therapy, Safety/Judgment, Transfer - Bed to Chair, Transfer - Sit to Stand THERAPEUTIC SKILLS USED Activity Dosing, Assessment of Tolerance Including Vitals Response to Activity, Cues for Sequencing/Proper Technique for Activity, Cuing Tactile, Cuing Verbal, Physical Assist, Therapeutic Use of Self FUNCTIONAL STATUS Activities of Daily Living Assist Level Additional Information Feeding Independent Grooming Minimal Assistance washed hands and face with set up in bedside chair and brushed hair, increased assist anticipated up at sink Bathing Upper Body Contact Guard Assistance, Additional Information per clinical judgement Bathing Lower Body Minimal Assistance, Additional Information per clinical judgement seated Dressing Upper Body Contact Guard Assistance, Additional Information seated Dressing Lower Body Minimal Assistance Toileting Minimal Assistance, Additional Information per clinical judgement currently has external catheter Mobility Assist Level Additional Information Bed Mobility Supine To Sit: Stand By Assistance HOB elevated Sit to Stand Minimal Assistance, Additional Information EOB to walker cues for safe technique Stand to Sit Minimal Assistance, Additional Information cues to reach back to control descent Bed to Chair Minimal Assistance Bed To Chair Transfer Type: Stepping Bed To Chair Transfer Equipment: Wheeled Walker, Gait Belt Toilet/Commode Shower Functional Mobility Minimal Assistance, Additional Information Functional Mobility Device: Wheeled Walker (gait belt) Cues for safe walker use GOALS Patient will demonstrate progress to optimize self-care activities, cognitive and/or coping to maximize function upon discharge. Rehab Potential: Good Good Rehab Potential Due To: Current objective clinical presentation, Good motivation Progress Toward Goals: Progressing as expected ACUTE CARE TREATMENT PLAN OT Frequency: 3 Times Per Week Treatment Interventions: Education, Self Care/Home Management, Strengthening, Functional Mobility Training, Balance Training Plan for Next Visit: Continue per POC SIGNATURE: Alex Major OTR/L PATIENT NAME: Stevie Angeles DATE: November 04, 2024 TIME: 11:35 AM CONSULT PROG Observed: 11/04/2024 11:02 AM Status: COMPLETED Source: [facility] HNO ID: [id number] Author: KURT PEREIRA MD Service: Infectious Disease Author Type: Physician Type: Consult Progress Note Filed: 11/04/2024 17:13 Note Text: INFECTIOUS DISEASE PROGRESS NOTE Patient Name: Stevie Angeles INTERVAL HISTORY: Afebrile Breathing improved Patient Active Hospital Problem List: Paroxysmal atrial fibrillation (HCC) Date Noted: 09/11/2023 Primary hypertension Date Noted: 06/23/2010 Mixed hyperlipidemia Date Noted: 06/23/2010 Cigarette nicotine dependence in remission Date Noted: 02/14/2011 Infrarenal abdominal aortic aneurysm (AAA) without rupture Date Noted: 02/08/2021 Prostate cancer (HCC) Date Noted: 09/11/2023 Cancer of lower lobe of right lung (HCC) Date Noted: 11/15/2023 COPD (chronic obstructive pulmonary disease) (HCC) Date Noted: 11/17/2023 Lung abscess (HCC) Date Noted: 11/17/2023 Cavitary lesion of lung Date Noted: 10/24/2024 Anemia Date Noted: 10/24/2024 Sepsis (HCC) Date Noted: 10/25/2024 Malignant neoplasm of upper lobe of right lung (HCC) Date Noted: 10/25/2024 S/P lobectomy of lung Date Noted: 10/25/2024 Thoracic lymphadenopathy Date Noted: 10/25/2024 Ex-smoker Date Noted: 10/25/2024 Bacterial pneumonia Date Noted: 11/01/2024 Hypoxemia Date Noted: 11/01/2024 Folate deficiency Date Noted: 11/01/2024 ASSESSMENT: Stevie Angeles is a 74 year old male with tachycardia and leukocytosis, CT of the chest revealed thick-walled right upper lobe cavitary mass is noted with an associated air-fluid level. Differential includes primary lung abscess, could potentially be from aspiration and poor dentition versus malignancy. Plan: BAL cultures w E coli Suspect superinfected cavitary mass which could have been malignant. Plan on performing bronchoscopy/EBUS at [facility] on 10/29. Continue unasyn Negative Legionella and Streptococcus pneumonia urine antigen, pending mycoplasma pneumonia PCR on sputum. NR HIV 1/2 and pending TB QuantiFERON gold. CoPAT anticipated on discharge x 4-6 weeks w follow up imaging in 4 weeks. Obtain PICC CoPAT on chart. >30 min JUAN Complex antimicrobial therapy counseling and treatment. Rationale for switching antibiotics discussed. Education provided regarding long-term antimicrobial therapy as well as side effects. Discussed sensitivities with microbiology department and antimicrobial stewardship pharmacist that will influence antimicrobial therapy and the success of treatment for this infection. I have reviewed and interpreted all lab test imaging studies and documentations from other healthcare providers I am monitoring antibiotics for side effects and toxicity MEDICATIONS: reviewed. Current Facility-Administered Medications Medication Dose Route Frequency NaCl 0.9% iv flush bag 20 mL INTRAVENOUS PRN guaiFENesin 600 mg ER tab(s) (MUCINEX) 600 mg ORAL q 12 H albuterol 2.5 mg /3 mL (0.083 %) 2.5 mg (PROVENTIL) 2.5 mg INHALATION QID budesonide 0.5 mg/2 mL 0.5 mg (PULMICORT) 0.5 mg INHALATION BID gabapentin 600 mg cap(s) (NEURONTIN) 600 mg ORAL TID metoprolol succinate ER 25 mg tab(s) (TOPROL XL) 25 mg ORAL DAILY acetaminophen 650 mg tab(s) (TYLENOL) 650 mg ORAL q 8 H ampicillin-sulbactam iv piggyback 3 g in NaCl 0.9% 100 mL Vial-Bag (UNASYN) 3 g INTRAVENOUS q 6 H benzocaine-menthol 1 lozenge (CEPACOL) 1 lozenge MUCOUS MEMBRANE (TOPICAL MOUTH AND THROAT) q 2 H PRN folic acid 1 mg tab(s) 1 mg ORAL DAILY lidocaine 10 mg/mL (1 %) 10-100 mg injection (XYLOCAINE) 1-10 mL INTRADERMAL DIRECTED PRN PHYSICAL EXAM: Vital signs: BP 110/75 Pulse 69 Temp 36.7 ?C (98 ?F) (Axillary) Resp 18 Ht 177.8 cm (5' 10) Wt 73.5 kg (162 lb 0.6 oz) SpO2 98% BMI 23.25 kg/m? Temp (48hrs), Av.7 ?C (98.1 ?F), Min:36.4 ?C (97.6 ?F), Max:37.2 ?C (98.9 ?F) General: alert, oriented, NAD Lungs: bilaterally clear to auscultation Heart: regular rate and rhythm Abdomen: soft, non tender, non distended, BS+ Extremities: no edema No rashes No joint inflammation Neck supple Lines ok No CVAT Lines, Drains, and Airways Line Duration Peripheral 10/27/24 0508 Left Wrist 22 Gauge 8 days Drain Duration External Collection Device 10/24/24 2300 10 days Labs: reviewed Recent Labs 11/02/24 0432 WBC 8.77 HB 10.9* PLT 392 NA 140 K 4.0 CO2 29 BUN 9 CREAT 0.65* Microbiology data: reviewed Imaging data: reviewed Evelia Fuchs, PROGRAM SUPPORT ASSISTANT [phone] 11/04/2024 10:33 AM I personally saw and evaluated the patient. I reviewed the RIBBON HANKING MACHINE OPERATOR Hx, exam and MDM and I agree with the RIBBON HANKING MACHINE OPERATOR assessment and plan unless otherwise addended above. Kurt Pereira MD [phone] 11/04/2024 5:12 PM PROGRESS Observed: 11/03/2024 1:36 PM Status: COMPLETED Source: [facility] HNO ID: [id number] Author: PATRICIA SLOAN MD Service: Hospital Medicine Author Type: Physician Type: Progress Notes Filed: 11/03/2024 13:38 Note Text: DEPARTMENT OF HOSPITAL MEDICINE PROGRESS NOTE SERVICE DATE: 11/03/2024 SERVICE TIME: 1:36 PM Hospital Medicine/Primary Attending: Patricia Sloan MD NIGHT AND WEEKEND COVERAGE: [place] COVERAGE: Days: [phone], please page attending physician. Nights: [phone], please page [place] Hospitalist Night coverage pager [phone]. Subjective INTERVAL HPI: - very hard of hearing - refuses to put on hearing aid -has still not called the niece, no choices for facilities yet Current Facility-Administered Medications Medication Dose Route Frequency NaCl 0.9% iv flush bag 20 mL INTRAVENOUS PRN guaiFENesin 600 mg ER tab(s) (MUCINEX) 600 mg ORAL q 12 H albuterol 2.5 mg /3 mL (0.083 %) 2.5 mg (PROVENTIL) 2.5 mg INHALATION QID budesonide 0.5 mg/2 mL 0.5 mg (PULMICORT) 0.5 mg INHALATION BID gabapentin 600 mg cap(s) (NEURONTIN) 600 mg ORAL TID metoprolol succinate ER 25 mg tab(s) (TOPROL XL) 25 mg ORAL DAILY acetaminophen 650 mg tab(s) (TYLENOL) 650 mg ORAL q 8 H ampicillin-sulbactam iv piggyback 3 g in NaCl 0.9% 100 mL Vial-Bag (UNASYN) 3 g INTRAVENOUS q 6 H benzocaine-menthol 1 lozenge (CEPACOL) 1 lozenge MUCOUS MEMBRANE (TOPICAL MOUTH AND THROAT) q 2 H PRN folic acid 1 mg tab(s) 1 mg ORAL DAILY Objective PHYSICAL EXAM: BP 121/74 Pulse 84 Temp (Src) 97.7 (Oral) Resp 22 Ht 5' 10 (1.78m) Wt 162 lb 0.6 oz (73.5kg) SpO2 96% BMI 23.25 kg/(m2). O2 Therapy: Room Air Physical Exam Performed Alert Hard of hearing CV RRR Lungs scattered crackles Abdomen soft, nontender No lower extremity edema Lines, Drains, and Airways Line Duration Peripheral 10/27/24 0508 Left Wrist 22 Gauge 7 days Drain Duration External Collection Device 10/24/24 2300 9 days Reviewed lines and needs to be continued: REASONS: Intravenous antibiotics DATA: Diagnostic tests reviewed for today's visit: Most recent imaging CBC, Coags, BMP, Mg, Phos Recent Labs 11/02/24 0432 WBC 8.77 HB 10.9* HCT 35.1* PLT 392 NA 140 K 4.0 CHLOR 104 CO2 29 BUN 9 CREAT 0.65* GLUC 107* CA 8.5 MG 1.9 P 2.7 Liver Function, Amylase, AND Lipase Recent Labs 11/02/24 0432 ALB 2.6* HOSPITAL COURSE: Stevie Angeles is a 74 year old male presented with past medical history of AAA, A-fib (postop in October 2023, not on anticoagulant), COPD, hypertension, 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 Patient was at his PCP office for follow-up visit, he noted to have elevated heart rate 170, patient reported shortness of breath. He also reports chronic cough noticed in the worsening of cough and productive of sputum. Patient developed A-fib RVR in October 2023 after right lower Lobectomy. In ED BP 83/55, elevated heart rate. Patient was in SVT, he was given adenosine, converted to A-fib and then to sinus rhythm. WBC 12.07, hemoglobin 11.8, platelets 448. Magnesium 1.6 rest of BMP unremarkable. Troponin 39, then 35 and 39. CTA chest, thick-walled right upper lobe cavity mass is noted with an associated air-fluid level. May be infectious/inflammatory process. Malignancy not excluded. Mediastinal lymphadenopathy. He received 612 mg of adenosine by EMS. In ED patient was given gabapentin, IV Lopressor, p.o. Lopressor. He was given 1 L normal saline bolus, IV vancomycin and Zosyn. Patient admitted to telemetry for SVT in setting of paroxysmal A-fib. Patient converted to A-fib After receiving adenosine and then converted to sinus rhythm after receiving IV Lopressor and p.o. Lopressor. Patient was also evaluated by cardiology for SVT. Metoprolol dose was increased to 25 mg twice daily. Right upper lobe cavity mass, pulmonology consulted, underwent bronchoscopy at [facility] on 10/29/2024. Showed right upper lobe cavity mass, right lower lobe endobronchial disease at stump, purulent secretions from right upper lobe. Prelim cytology was suggestive of benign appearing lymphoid tissue in node level 2R, node level 4R, node level 4L and node level 11R, suggestive of squamous cell carcinoma in right lower lobe endobronchial biopsy, and suggestive of benign acute inflammatory changes in right upper lobe. bacterial cultures growing E. coli. Concern for bacterial pneumonia and lung abscess. Patient was continued on IV vancomycin and Zosyn. Infectious disease was consulted. Vancomycin was stopped, Zosyn continued. 10/25/2024 overnight patient developed hypotension, 500 cc of normal saline bolus given. Home hydrochlorothiazide and lisinopril has been on hold. Overall blood pressure has been stable. PT, OT consulted. Patient seen by OT, SNF placement is recommended. Waiting for PT evaluation. Assessment AND Plan Paroxysmal atrial fibrillation (HCC) Present on Admission: Yes HR of 170s at PCP office, given 6 AND 12 mg of Adenosine by EMS for possible SVT Converted to NSR after IV and PO Lopressor HsT 39, 35, 39 H/o post-op afib, not on rate controlling meds or AC Cardiology consulted, started on metoprolol. Anticoagulant contraindicated due to increased bleeding risk. Discontinue Lovenox Echo, LV normal size, EF 55%. LV diastolic function was not evaluated due to A-fib. Right ventricle normal size, right ventricular systolic function normal. Left atrial cavity mildly dilated. No significant valvular abnormalities. Visualized aorta dilated maximal dimension 4.5 cm. 1+ tricuspid regurgitation. Cancer of lower lobe of right lung (HCC) Present on Admission: Yes Cavitary lesion of lung Present on Admission: Yes H/o cancer of RLL s/p lobectomy in 10/2023, at that time appeared more abscess and chemotherapy was not recommended CTA chest shows thick-walled right upper lobe cavitary mass is noted with an associated air-fluid level. This may be an infectious/inflammatory process as it was not present on the exam from 05/08/2024. Malignancy is not excluded. Mediastinal lymphadenopathy may be reactive. WBC 12.07 w/LS, trended up to 19, now improved to 10.74. Blood cultures no growth. Sputum cultures growing E. coli. Urine Legionella negative, HIV negative, mycoplasma negative. MRSA nasal swab negative. Was on vancomycin and Zosyn, vancomycin stopped, Zosyn continued. Procalcitonin 0.21, MRSA not detected Pulmonary consult appreciated ID consulted Heme-onc follow-up outpatient Bronchoscopy at [facility] Completed. Bacterial cultures growing E. coli Anemia Present on Admission: Yes Hgb 11.8 on admit, baseline ~12-13 HANDH stable Mixed hyperlipidemia Present on Admission: Yes Cont statin Infrarenal abdominal aortic aneurysm (AAA) without rupture Present on Admission: Yes Stable Prostate cancer (HCC) Present on Admission: Yes S/p XRT COPD (chronic obstructive pulmonary disease) (HCC) Present on Admission: Yes No s/s of exacerbation Cont home inhaler Lung abscess (HCC) Present on Admission: Yes Sepsis (HCC) Present on Admission: Yes Malignant neoplasm of upper lobe of right lung (HCC) Present on Admission: Yes SP bronchoscopy on 11/16/2024, showing squamous cell carcinoma keratinizing type. Patient follows with Dr. Kevin Gustafson. S/P lobectomy of lung Present on Admission: Yes Thoracic lymphadenopathy Present on Admission: Yes Ex-smoker Present on Admission: Yes Bacterial pneumonia Present on Admission: Yes Cigarette nicotine dependence in remission Present on Admission: Yes Primary hypertension Present on Admission: Yes Stable, cont home meds Hypoxemia Present on Admission: Yes Folate deficiency Present on Admission: Yes Medication and Non-Pharmacologic VTE Prophylaxis/Anticoagulants 10/24/24 2245 activity - mobilize patient (sd,oh) VTE Prophylaxis: VTE prophylaxis appropriate Disposition: To be determined, SNF versus C. Plan of care discussed with Provider, RN, Patient Plan communicated to: Patient SIGNATURE: Patricia Sloan MD PATIENT NAME: Stevie Angeles DATE:11/03/24 TIME:1:38 PM CONSULT PROG Observed: 11/03/2024 10:03 AM Status: COMPLETED Source: [facility] HNO ID: [id number] Author: KURT PEREIRA MD Service: Infectious Disease Author Type: Physician Type: Consult Progress Note Filed: 11/03/2024 22:03 Note Text: INFECTIOUS DISEASE PROGRESS NOTE Patient Name: Stevie Angeles INTERVAL HISTORY: Had BAL and cultures positive for E coli. Cough present. Feels tired. No fevers/ Shortness of Breath is better Patient Active Hospital Problem List: Paroxysmal atrial fibrillation (HCC) Date Noted: 09/11/2023 Primary hypertension Date Noted: 06/23/2010 Mixed hyperlipidemia Date Noted: 06/23/2010 Cigarette nicotine dependence in remission Date Noted: 02/14/2011 Infrarenal abdominal aortic aneurysm (AAA) without rupture Date Noted: 02/08/2021 Prostate cancer (HCC) Date Noted: 09/11/2023 Cancer of lower lobe of right lung (HCC) Date Noted: 11/15/2023 COPD (chronic obstructive pulmonary disease) (HCC) Date Noted: 11/17/2023 Lung abscess (HCC) Date Noted: 11/17/2023 Cavitary lesion of lung Date Noted: 10/24/2024 Anemia Date Noted: 10/24/2024 Sepsis (HCC) Date Noted: 10/25/2024 Malignant neoplasm of upper lobe of right lung (HCC) Date Noted: 10/25/2024 S/P lobectomy of lung Date Noted: 10/25/2024 Thoracic lymphadenopathy Date Noted: 10/25/2024 Ex-smoker Date Noted: 10/25/2024 Bacterial pneumonia Date Noted: 11/01/2024 Hypoxemia Date Noted: 11/01/2024 Folate deficiency Date Noted: 11/01/2024 ASSESSMENT: Stevie Angeles is a 74 year old male with tachycardia and leukocytosis, CT of the chest revealed thick-walled right upper lobe cavitary mass is noted with an associated air-fluid level. Differential includes primary lung abscess, could potentially be from aspiration and poor dentition versus malignancy. Plan: BAL cultures w E coli Suspect superinfected cavitary mass which could have been malignant. Plan on performing bronchoscopy/EBUS at [facility] on 10/29. Continue unasyn Negative Legionella and Streptococcus pneumonia urine antigen, pending mycoplasma pneumonia PCR on sputum. NR HIV 02/28 and pending TB QuantiFERON gold. CoPAT anticipated on discharge x 4-6 weeks w follow up imaging in 4 weeks I have reviewed and interpreted all lab test imaging studies and documentations from other healthcare providers I am monitoring antibiotics for side effects and toxicity MEDICATIONS: reviewed. Current Facility-Administered Medications Medication Dose Route Frequency NaCl 0.9% iv flush bag 20 mL INTRAVENOUS PRN guaiFENesin 600 mg ER tab(s) (MUCINEX) 600 mg ORAL q 12 H albuterol 2.5 mg /3 mL (0.083 %) 2.5 mg (PROVENTIL) 2.5 mg INHALATION QID budesonide 0.5 mg/2 mL 0.5 mg (PULMICORT) 0.5 mg INHALATION BID gabapentin 600 mg cap(s) (NEURONTIN) 600 mg ORAL TID metoprolol succinate ER 25 mg tab(s) (TOPROL XL) 25 mg ORAL DAILY acetaminophen 650 mg tab(s) (TYLENOL) 650 mg ORAL q 8 H ampicillin-sulbactam iv piggyback 3 g in NaCl 0.9% 100 mL Vial-Bag (UNASYN) 3 g INTRAVENOUS q 6 H benzocaine-menthol 1 lozenge (CEPACOL) 1 lozenge MUCOUS MEMBRANE (TOPICAL MOUTH AND THROAT) q 2 H PRN folic acid 1 mg tab(s) 1 mg ORAL DAILY PHYSICAL EXAM: Vital signs: BP 101/65 Pulse 87 Temp 36.4 ?C (97.6 ?F) (Oral) Resp 18 Ht 177.8 cm (5' 10) Wt 73.5 kg (162 lb 0.6 oz) SpO2 96% BMI 23.25 kg/m? Temp (48hrs), Av.7 ?C (98.1 ?F), Min:36.4 ?C (97.6 ?F), Max:37.2 ?C (98.9 ?F) General: alert, oriented, NAD Lungs: bilaterally clear to auscultation Heart: regular rate and rhythm Abdomen: soft, non tender, non distended, BS+ Extremities: no edema No rashes No joint inflammation Neck supple Lines ok No CVAT Lines, Drains, and Airways Line Duration Peripheral 10/27/24 0508 Left Wrist 22 Gauge 7 days Drain Duration External Collection Device 10/24/24 2300 9 days Labs: reviewed Recent Labs 11/02/24 0432 WBC 8.77 HB 10.9* PLT 392 NA 140 K 4.0 CO2 29 BUN 9 CREAT 0.65* Microbiology data: reviewed Imaging data: reviewed Kurt Pereira MD [phone] 11/03/2024 10:33 AM PROGRESS Observed: 11/02/2024 3:12 PM Status: COMPLETED Source: [facility] HNO ID: [id number] Author: PATRICIA SLOAN MD Service: Hospital Medicine Author Type: Physician Type: Progress Notes Filed: 11/02/2024 15:14 Note Text: DEPARTMENT OF HOSPITAL MEDICINE PROGRESS NOTE SERVICE DATE: 11/02/2024 SERVICE TIME: 3:12 PM Hospital Medicine/Primary Attending: Patricia Sloan MD NIGHT AND WEEKEND COVERAGE: [facility] COVERAGE: Days: [phone], please page attending physician. Nights: [phone], please page [place] [facility] Night coverage pager [phone]. Subjective INTERVAL HPI: - very hard of hearing - has not talked to family to decided on SNF - he is agree able to to go to SNF if insurance pays for it. Current Facility-Administered Medications Medication Dose Route Frequency NaCl 0.9% iv flush bag 20 mL INTRAVENOUS PRN guaiFENesin 600 mg ER tab(s) (MUCINEX) 600 mg ORAL q 12 H albuterol 2.5 mg /3 mL (0.083 %) 2.5 mg (PROVENTIL) 2.5 mg INHALATION QID budesonide 0.5 mg/2 mL 0.5 mg (PULMICORT) 0.5 mg INHALATION BID gabapentin 600 mg cap(s) (NEURONTIN) 600 mg ORAL TID metoprolol succinate ER 25 mg tab(s) (TOPROL XL) 25 mg ORAL DAILY acetaminophen 650 mg tab(s) (TYLENOL) 650 mg ORAL q 8 H ampicillin-sulbactam iv piggyback 3 g in NaCl 0.9% 100 mL Vial-Bag (UNASYN) 3 g INTRAVENOUS q 6 H benzocaine-menthol 1 lozenge (CEPACOL) 1 lozenge MUCOUS MEMBRANE (TOPICAL MOUTH AND THROAT) q 2 H PRN [START ON 11/03/2024] folic acid 1 mg tab(s) 1 mg ORAL DAILY Objective PHYSICAL EXAM: BP 115/75 Pulse 92 Temp (Src) 98 (Oral) Resp 20 Ht 5' 10 (1.78m) Wt 162 lb 0.6 oz (73.5kg) SpO2 95% BMI 23.25 kg/(m2). O2 Therapy: Room Air, Liters (Numeric Only): 1 Physical Exam Performed Alert Hard of hearing CV RRR Lungs scattered crackles Abdomen soft, nontender No lower extremity edema Lines, Drains, and Airways Line Duration Peripheral 10/27/24 0508 Left Wrist 22 Gauge 6 days Drain Duration External Collection Device 10/24/24 2300 8 days Reviewed lines and needs to be continued: REASONS: Intravenous antibiotics DATA: Diagnostic tests reviewed for today's visit: Most recent imaging CBC, Coags, BMP, Mg, Phos Recent Labs 11/02/24 0432 WBC 8.77 HB 10.9* HCT 35.1* PLT 392 NA 140 K 4.0 CHLOR 104 CO2 29 BUN 9 CREAT 0.65* GLUC 107* CA 8.5 MG 1.9 P 2.7 Liver Function, Amylase, AND Lipase Recent Labs 11/02/24 0432 ALB 2.6* HOSPITAL COURSE: Stevie Angeles is a 74 year old male presented with past medical history of AAA, A-fib (postop in October 2023, not on anticoagulant), COPD, hypertension, 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 Patient was at his PCP office for follow-up visit, he noted to have elevated heart rate 170, patient reported shortness of breath. He also reports chronic cough noticed in the worsening of cough and productive of sputum. Patient developed A-fib RVR in October 2023 after right lower Lobectomy. In ED BP 83/55, elevated heart rate. Patient was in SVT, he was given adenosine, converted to A-fib and then to sinus rhythm. WBC 12.07, hemoglobin 11.8, platelets 448. Magnesium 1.6 rest of BMP unremarkable. Troponin 39, then 35 and 39. CTA chest, thick-walled right upper lobe cavity mass is noted with an associated air-fluid level. May be infectious/inflammatory process. Malignancy not excluded. Mediastinal lymphadenopathy. He received 612 mg of adenosine by EMS. In ED patient was given gabapentin, IV Lopressor, p.o. Lopressor. He was given 1 L normal saline bolus, IV vancomycin and Zosyn. Patient admitted to telemetry for SVT in setting of paroxysmal A-fib. Patient converted to A-fib After receiving adenosine and then converted to sinus rhythm after receiving IV Lopressor and p.o. Lopressor. Patient was also evaluated by cardiology for SVT. Metoprolol dose was increased to 25 mg twice daily. Right upper lobe cavity mass, pulmonology consulted, underwent bronchoscopy at [facility] on 10/29/2024. Showed right upper lobe cavity mass, right lower lobe endobronchial disease at stump, purulent secretions from right upper lobe. Prelim cytology was suggestive of benign appearing lymphoid tissue in node level 2R, node level 4R, node level 4L and node level 11R, suggestive of squamous cell carcinoma in right lower lobe endobronchial biopsy, and suggestive of benign acute inflammatory changes in right upper lobe. bacterial cultures growing E. coli. Concern for bacterial pneumonia and lung abscess. Patient was continued on IV vancomycin and Zosyn. Infectious disease was consulted. Vancomycin was stopped, Zosyn continued. 10/25/2024 overnight patient developed hypotension, 500 cc of normal saline bolus given. Home hydrochlorothiazide and lisinopril has been on hold. Overall blood pressure has been stable. PT, OT consulted. Patient seen by OT, SNF placement is recommended. Waiting for PT evaluation. Assessment AND Plan Paroxysmal atrial fibrillation (HCC) Present on Admission: Yes HR of 170s at PCP office, given 6 AND 12 mg of Adenosine by EMS for possible SVT Converted to NSR after IV and PO Lopressor HsT 39, 35, 39 H/o post-op afib, not on rate controlling meds or AC Cardiology consulted, started on metoprolol. Anticoagulant contraindicated due to increased bleeding risk. Discontinue Lovenox Echo, LV normal size, EF 55%. LV diastolic function was not evaluated due to A-fib. Right ventricle normal size, right ventricular systolic function normal. Left atrial cavity mildly dilated. No significant valvular abnormalities. Visualized aorta dilated maximal dimension 4.5 cm. 1+ tricuspid regurgitation. Cancer of lower lobe of right lung (HCC) Present on Admission: Yes Cavitary lesion of lung Present on Admission: Yes H/o cancer of RLL s/p lobectomy in 10/2023, at that time appeared more abscess and chemotherapy was not recommended CTA chest shows thick-walled right upper lobe cavitary mass is noted with an associated air-fluid level. This may be an infectious/inflammatory process as it was not present on the exam from 05/08/2024. Malignancy is not excluded. Mediastinal lymphadenopathy may be reactive. WBC 12.07 w/LS, trended up to 19, now improved to 10.74. Blood cultures no growth. Sputum cultures growing E. coli. Urine Legionella negative, HIV negative, mycoplasma negative. MRSA nasal swab negative. Was on vancomycin and Zosyn, vancomycin stopped, Zosyn continued. Procalcitonin 0.21, MRSA not detected Pulmonary consult appreciated ID consulted Heme-onc follow-up outpatient Bronchoscopy at [facility] Completed. Bacterial cultures growing E. coli Anemia Present on Admission: Yes Hgb 11.8 on admit, baseline ~12-13 HANDH stable Mixed hyperlipidemia Present on Admission: Yes Cont statin Infrarenal abdominal aortic aneurysm (AAA) without rupture Present on Admission: Yes Stable Prostate cancer (HCC) Present on Admission: Yes S/p XRT COPD (chronic obstructive pulmonary disease) (HCC) Present on Admission: Yes No s/s of exacerbation Cont home inhaler Lung abscess (HCC) Present on Admission: Yes Sepsis (HCC) Present on Admission: Yes Malignant neoplasm of upper lobe of right lung (HCC) Present on Admission: Yes SP bronchoscopy on 11/16/2024, showing squamous cell carcinoma keratinizing type. Patient follows with Dr. Kevin Gustafson. S/P lobectomy of lung Present on Admission: Yes Thoracic lymphadenopathy Present on Admission: Yes Ex-smoker Present on Admission: Yes Bacterial pneumonia Present on Admission: Yes Cigarette nicotine dependence in remission Present on Admission: Yes Primary hypertension Present on Admission: Yes Stable, cont home meds Hypoxemia Present on Admission: Yes Folate deficiency Present on Admission: Yes Medication and Non-Pharmacologic VTE Prophylaxis/Anticoagulants 10/24/24 2815 activity - mobilize patient (fl,oh) VTE Prophylaxis: VTE prophylaxis appropriate Disposition: To be determined, SNF versus HHC. May need home oxygen evaluation if plan for DC home. Patient will need ENT follow-up on discharge Plan of care discussed with Provider, RN, Patient Plan communicated to: Patient SIGNATURE: Patricia Sloan MD PATIENT NAME: Stevie Angeles DATE:11/02/24 TIME:3:13 PM THERAPY NT Observed: 11/02/2024 2:09 PM Status: COMPLETED Source: [facility] HNO ID: [id number] Author: DESIRAE PEARCE PT Service: Physical Therapy Author Type: Physical Therapist Type: Therapy (PT/OT/Speech/Resp) Filed: 11/02/2024 15:12 Note Text: Summary: PT evaluation Physical Therapy Evaluation Summary SERVICE DATE: 11/02/2024 SERVICE TIME: 1409 to 1439 ROOM: [place] [id number] PT 6 Clicks Score: 17 DISCHARGE RECOMMENDATIONS Subacute/SNF Recommended Discharge Disposition Comments: Pt is currently performing functional mobility below PLOF and would benefit from continued skilled PT to reduce risk of falls and rehospitalization. Recommended Discharge Disposition Due to: Functional deficits requiring ongoing therapy service prior to discharge home., Anticipated community discharge, Balance deficits, Functional status decline, Requires multiple therapy disciplines Anticipated Discharge Needs: Physical Assist at Home, Supervision at Home Physical Assist at Home for: Cleaning, Laundry, Meals, Safety, Shopping, Transportation, Transfers, Ambulation, Medication Management, Stairs, Self Care (19/09 however current rec for SNF) Supervision at Home due to: Other: See Comment Recommended Discharge Equipment: No equipment needs anticipated ASSESSMENT Response to Therapy Interventions: Good Participation in Activities, Improved Tolerance for Activity, Multiple Ongoing Medical Issues, Pain, Notable Progression with Functional Activities/Skills, On-Track to Achieve Discharge Goals Patient presents with decreased strength, decreased balance/fall risk and impaired functional mobility. at baseline, patient ind with functional mobilty without device. currently, unsteady and overall min A for amb with FWW. unsafe. patient EKWOK and has a difficult time with cues. Part of session completed using note pad for conversation however impractical for functional mobility. SpO2 drops with amb 94 - 89%. Patient would benefit from skilled PT in acute setting to increase strength and progress safe functional mobility. PRECAUTIONS Bed/Chair Alarm, Fall Risk, Lines/Tubes/Drains, Impulsive with Activity CURRENT HOSPITAL COURSE Admitted SVT/A-fib, Right upper lobe cavity mass, pulmonology consulted, plan for bronchoscopy and biopsy at [facility] 10/29 Relevant Past Medical History: HTN, HLD, hearing loss, malignant neoplasm of prostate, AAA, lumbosacral neuritis, spinal stenosis of lumbar region, lung lobectomy, hernia repair HOME LIVING Patient Lives With: Self/Alone Assistance Available: PRN (sister stops by, and son on occasion but he works a lot) Entry To Home: Stairs Number Of Stairs Into Home: 3 Number Of Stairs To Bed/Bath: one story home Tub/Shower Type: walk in shower Laundry: basement patient completes Equipment Owned: Other: See Comment (none) PRIOR FUNCTIONAL LEVEL Within Functional Limits Patient reports independent with bathing and dressing, no device for functional mobility, + driving SUBJECTIVE Patient agreeable to PT and cleared by RN. received request from MD for PT evaluation THERAPY DIAGNOSIS Reduced mobility-other TREATMENT INTERVENTIONS Evaluation, Therapeutic Activity (74036), Gait Training (65381) Timed Code Treatment (minutes): 15 Skilled Treatment Time (minutes): 30 $ Evaluation-Low (78148) Billed Units: 1 unit Therapeutic Activity (21347) Treatment Minutes: 10 $ Therapeutic Activity (16439) Billed Units: 1 unit Gait Training (51324) Treatment Minutes: 5 $ Gait Training (39781) Billed Units: 0 units Range of Motion: WFL Except, ROM Limitation Comments ROM Limitation Comments: right ankle DF to neutral Strength: WFL Except, Strength Limitation Comments Strength Limitation Comments: patient not able to follow commands for MMT due to very EKWOK. grossly at least 3-/5 per clinical judgement based on functional mobility and weight bearing TRAINING AND EDUCATION PROVIDED Anatomy and Impact on Deficits, Bed Mobility, Benefits of In-Hospital Mobility, Discharge Planning, Expected Functional Level, Falls Prevention, Equipment, Gait Pattern, Reduction of Deviations, Positioning, Precautions/Restrictions, Role of Physical Therapy, Sitting Balance, Transfers, Pre-gait Activities, Standing Balance THERAPEUTIC SKILLS USED Activity Dosing, Assessment of Tolerance Including Vitals Response to Activity, Cuing Verbal, Cues for Sequencing/Proper Technique for Activity, Management of Critical Lines, Tubes and/or Drains, Muscle Activation Facilitation, Physical Assist, Postural Alignment Correction, Teach-Back for Education FUNCTIONAL STATUS Bed Mobility Supine To Sit: Stand By Assistance Sit to Supine: Stand By Assistance Scooting: Additional Information, Contact Guard Assistance in sitting, fwd to EOB Transfers Sit To Stand: Moderate Assistance, Additional Information cues to scoot to edge before attempt to transfer to standing, cues for hand placement. 2 attempts to acheive complete standing. Assist for boost/stability Stand To Sit: Minimal Assistance, Additional Information cues for safe approach of sitting surface with device, positioning at HOB, hand placement and controlled descent. patient not following commands for safety with walker use and hand placement. A for controlled descent Bed to Chair Gait Minimal Assistance, Additional Information reciprocal gait. cues for posture and walker negotiation/sequencing. education for activity dosing. overall unsteady especially increased instability with change of direction. SpO2 94% prior to amb and 89% after with increased time to value Gait Device: Wheeled Walker General Deviations/Observations: Carolynn decreased, Difficulty changing direction/turning, Flexed trunk posture, Step length decreased, Improper distancing from assistive device Gait Distance (feet): 30 x 2 Gait Deviations Right Lower Extremity: Heel strike during initial stance decreased, Push off during terminal stance decreased, Lacks hip extension beyond mid-stance, Stance time decreased, Knee flexion during stance increased, Step length decreased Gait Deviations Left Lower Extremity: Push off during terminal stance decreased, Lacks hip extension beyond mid-stance, Step length decreased, Knee flexion during stance increased, Stance time decreased Stairs GOALS Patient will demonstrate progress to optimize functional mobility, maximize activity tolerance and endurance to maximize function upon discharge. Transfer Sit to/from Stand with: Contact Guard Assistance Ambulate with: Contact Guard Assistance Distance: 30 - 50 feet Device: Wheeled Walker Rehab Potential: Good Good Rehab Potential Due To: Current objective clinical presentation, Good overall health status, Good support system/ coping skills, Good motivation Progress Toward Goals: Progressing as expected ACUTE CARE TREATMENT PLAN PT Frequency: 4 Times Per Week Treatment Interventions: Education, Self Care / Home Management, Energy Conservation Training, Joint Mobility, Strengthening, Functional Mobility Training, Balance Training, Neuromuscular Re-education Plan for Next Visit: Continue per POC SIGNATURE: Desirae Pearce PT PATIENT NAME: Stevie Angeles DATE: November 02, 2024 TIME: 3:11 PM CONSULT PROG Observed: 11/02/2024 1:01 PM Status: COMPLETED Source: [facility] HNO ID: [id number] Author: APRYL GUERRERO RPh Service: Pharmacy Author Type: Pharmacist Type: Consult Progress Note Filed: 11/02/2024 13:01 Note Text: PHARMACY IV to PO ASSESSMENT Patient Name: Stevie Angeles Admission Date: 10/24/2024 Date of Consult: 11/02/2024 Time of Consult: 1:01 PM In accordance with the inpatient pharmacy and therapeutics policy the following medication changes have been made: folic acid 1 mg IV q24h converted to folic acid 1 mg PO q24h, per IV to PO guidelines. Signature: Apryl Guerrero RPh November 02, 2024 1:01 PM Date/Time: 11/02/2024 1:01 PM OCCULT BLD EXAM-DIAG Observed: 10:49 AM Status: F Source: [facility] OCCULT BLOOD DIAGNOSTIC: Negative Performed By: #### OBDX #### [facility] CLIA [id number] [address] [place] [id number] [facility] CONSULT PROG Observed: 11/02/2024 10:01 AM Status: COMPLETED Source: [facility] HNO ID: [id number] Author: KURT PEREIRA MD Service: Infectious Disease Author Type: Physician Type: Consult Progress Note Filed: 11/03/2024 22:03 Note Text: INFECTIOUS DISEASE PROGRESS NOTE Patient Name: Stevie Angeles INTERVAL HISTORY: Had BAL and cultures positive for E coli. Cough present. Feels tired. No fevers/ Shortness of Breath is better Patient Active Hospital Problem List: Paroxysmal atrial fibrillation (HCC) Date Noted: 09/11/2023 Primary hypertension Date Noted: 06/23/2010 Mixed hyperlipidemia Date Noted: 06/23/2010 Cigarette nicotine dependence in remission Date Noted: 02/14/2011 Infrarenal abdominal aortic aneurysm (AAA) without rupture Date Noted: 02/08/2021 Prostate cancer (HCC) Date Noted: 09/11/2023 Cancer of lower lobe of right lung (HCC) Date Noted: 11/15/2023 COPD (chronic obstructive pulmonary disease) (HCC) Date Noted: 11/17/2023 Lung abscess (HCC) Date Noted: 11/17/2023 Cavitary lesion of lung Date Noted: 10/24/2024 Anemia Date Noted: 10/24/2024 Sepsis (HCC) Date Noted: 10/25/2024 Malignant neoplasm of upper lobe of right lung (HCC) Date Noted: 10/25/2024 S/P lobectomy of lung Date Noted: 10/25/2024 Thoracic lymphadenopathy Date Noted: 10/25/2024 Ex-smoker Date Noted: 10/25/2024 Bacterial pneumonia Date Noted: 11/01/2024 Hypoxemia Date Noted: 11/01/2024 Folate deficiency Date Noted: 11/01/2024 ASSESSMENT: Stevie Angeles is a 74 year old male with tachycardia and leukocytosis, CT of the chest revealed thick-walled right upper lobe cavitary mass is noted with an associated air-fluid level. Differential includes primary lung abscess, could potentially be from aspiration and poor dentition versus malignancy. Plan: BAL cultures w E coli Suspect superinfected cavitary mass which could have been malignant. Plan on performing bronchoscopy/EBUS at [facility] on 10/29. Continue unasyn Negative Legionella and Streptococcus pneumonia urine antigen, pending mycoplasma pneumonia PCR on sputum. NR HIV 1/2 and pending TB QuantiFERON gold. CoPAT anticipated on discharge x 4-6 weeks w follow up imaging in 4 weeks I have reviewed and interpreted all lab test imaging studies and documentations from other healthcare providers I am monitoring antibiotics for side effects and toxicity MEDICATIONS: reviewed. Current Facility-Administered Medications Medication Dose Route Frequency NaCl 0.9% iv flush bag 20 mL INTRAVENOUS PRN guaiFENesin 600 mg ER tab(s) (MUCINEX) 600 mg ORAL q 12 H albuterol 2.5 mg /3 mL (0.083 %) 2.5 mg (PROVENTIL) 2.5 mg INHALATION QID budesonide 0.5 mg/2 mL 0.5 mg (PULMICORT) 0.5 mg INHALATION BID gabapentin 600 mg cap(s) (NEURONTIN) 600 mg ORAL TID metoprolol succinate ER 25 mg tab(s) (TOPROL XL) 25 mg ORAL DAILY acetaminophen 650 mg tab(s) (TYLENOL) 650 mg ORAL q 8 H ampicillin-sulbactam iv piggyback 3 g in NaCl 0.9% 100 mL Vial-Bag (UNASYN) 3 g INTRAVENOUS q 6 H benzocaine-menthol 1 lozenge (CEPACOL) 1 lozenge MUCOUS MEMBRANE (TOPICAL MOUTH AND THROAT) q 2 H PRN folic acid 1 mg tab(s) 1 mg ORAL DAILY PHYSICAL EXAM: Vital signs: BP 101/65 Pulse 87 Temp 36.4 ?C (97.6 ?F) (Oral) Resp 18 Ht 177.8 cm (5' 10) Wt 73.5 kg (162 lb 0.6 oz) SpO2 96% BMI 23.25 kg/m? Temp (48hrs), Av.7 ?C (98.1 ?F), Min:36.4 ?C (97.6 ?F), Max:37.2 ?C (98.9 ?F) General: alert, oriented, NAD Lungs: bilaterally clear to auscultation Heart: regular rate and rhythm Abdomen: soft, non tender, non distended, BS+ Extremities: no edema No rashes No joint inflammation Neck supple Lines ok No CVAT Lines, Drains, and Airways Line Duration Peripheral 10/27/24 0508 Left Wrist 22 Gauge 7 days Drain Duration External Collection Device 10/24/24 2300 9 days Labs: reviewed Recent Labs 11/02/24 0432 WBC 8.77 HB 10.9* PLT 392 NA 140 K 4.0 CO2 29 BUN 9 CREAT 0.65* Microbiology data: reviewed Imaging data: reviewed Kurt Pereira MD [phone] 11/02/2024 10:33 AM PROGRESS Observed: 11/02/2024 9:22 AM Status: COMPLETED Source: [facility] HNO ID: [id number] Author: HAILE ALFARO JR, MD Service: Critical Care Author Type: Physician Type: Progress Notes Filed: 11/02/2024 13:34 Note Text: PULM / CRITICAL CARE PROGRESS NOTE SERVICE DATE: November 02, 2024 SERVICE TIME: 9:22 AM Admission Date: 10/24/2024 AGE: [age] year old LOS: 9 days Subjective Cc: infection, possible recurrent cancer Taking with patient care regarding rehab No chest pain Knows that cancer was found on cytology of bronchoscopy Objective PROBLEMS: ACTIVE PROBLEM LIST Glucose Intolerance (Impaired Glucose Tolerance) Primary Hypertension Mixed Hyperlipidemia Cigarette Nicotine 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 Paresthesias Lumbosacral Neuritis Infrarenal Abdominal Aortic Aneurysm (Aaa) Without Rupture Hdl Deficiency Prostate Cancer (Hcc) Paroxysmal Atrial Fibrillation (Hcc) Cancer of Lower Lobe of Right Lung (Hcc) Postoperative Pain Copd (Chronic Obstructive Pulmonary Disease) (Hcc) Lung Abscess (Hcc) Pleural Effusion, Left Bronchopleural Fistula (Hcc) Pneumothorax Hearing Loss Cavitary Lesion of Lung Anemia Sepsis (Hcc) Malignant Neoplasm of Upper Lobe of Right Lung (Hcc) S/P Lobectomy of Lung Thoracic Lymphadenopathy Ex-Smoker Bacterial Pneumonia Hypoxemia Folate Deficiency PAST MEDICAL HISTORY Diagnosis Date Abdominal aortic aneurysm without rupture Elevated PSA Hearing loss HTN (hypertension) Lumbosacral neuritis Malignant neoplasm of prostate (HCC) Other and unspecified hyperlipidemia Prostate cancer (HCC) 2020 xrt at [facility] [place] Smoker former quit 2021 Spinal stenosis of lumbar region with neurogenic claudication PAST SURGICAL HISTORY Procedure Laterality Date COLONOSCOPY 05/28/2008 HERNIA REPAIR HX age 20 PROSTATE BIOPSY HX 2020 REMOVAL OF LUNG,LOBECTOMY Right 11/15/2023 Robotic-assisted right lower lobectomy with right lower lobe bronchoplasty closure of airway and mediastinal and hilar lymph node dissection, intercostal and phrenic nerve block SOCIAL HISTORY[1] VITAL SIGNS (last 24hrs min/max): Temp Av.7 ?C (98 ?F) Min: 36.4 ?C (97.5 ?F) Max: 36.8 ?C (98.2 ?F) Pulse Av.9 Min: 61 Max: 77 No data recorded Cuff BP Min: 95/61 Max: 116/71 Pain Level: 0 Vital signs reviewed. BP 103/67 Pulse 66 Temp (Src) 98 (Oral) Resp 20 Ht 5' 10 (1.78m) Wt 162 lb 0.6 oz (73.5kg) SpO2 97% BMI 23.25 kg/(m2). O2 Therapy: Nasal Cannula, Liters (Numeric Only): 2.0 Temp (24hrs), Av.9 ?C (98.5 ?F), Min:36.3 ?C (97.3 ?F), Max:37.4 ?C (99.3 ?F) NET FLUID BALANCE Intake/Output Summary (Last 24 hours) at 11/02/2024 0922 Last data filed at 11/02/2024 0400 Gross per 24 hour Intake 540 ml Output 750 ml Net -210 ml MEDICATIONS Current Facility-Administered Medications Medication Dose Route Frequency benzocaine-menthol 1 lozenge (CEPACOL) 1 lozenge MUCOUS MEMBRANE (TOPICAL MOUTH AND THROAT) q 2 H PRN folic acid 1 mg in NaCl 0.9% 50 mL 1 mg INTRAVENOUS DAILY ampicillin-sulbactam iv piggyback 3 g in NaCl 0.9% 100 mL Vial-Bag (UNASYN) 3 g INTRAVENOUS q 6 H acetaminophen 650 mg tab(s) (TYLENOL) 650 mg ORAL q 8 H metoprolol succinate ER 25 mg tab(s) (TOPROL XL) 25 mg ORAL DAILY NaCl 0.9% iv flush bag 20 mL INTRAVENOUS PRN guaiFENesin 600 mg ER tab(s) (MUCINEX) 600 mg ORAL q 12 H albuterol 2.5 mg /3 mL (0.083 %) 2.5 mg (PROVENTIL) 2.5 mg INHALATION QID budesonide 0.5 mg/2 mL 0.5 mg (PULMICORT) 0.5 mg INHALATION BID gabapentin 600 mg cap(s) (NEURONTIN) 600 mg ORAL TID Lines, Drains, and Airways Line Duration Peripheral 10/27/24 0508 Left Wrist 22 Gauge 6 days Drain Duration External Collection Device 10/24/24 2300 8 days PHYSICAL EXAM PERFORMED: General: no distress ENT: OP clear Cardiovascular: Regular Respiratory: Rare rhonchi Abdomen: Soft and Nontender Extremities: Edema- No Neurologic: Awake, oriented, Alert, Follows commands, and Moving all extremities Respiratory/Nursing Documentation: O2 Therapy: Nasal Cannula (11/02/24 0834) HEMODYNAMIC DATA: Reviewed DATA: Diagnostic tests reviewed for today's visit, films/specimens were personally reviewed by me: Most recent labs and imaging results. LABS: Recent Labs 11/02/24 0432 WBC 8.77 RBC 3.63* HB 10.9* HCT 35.1* MCV 96.7 PLT 392 GLUC 107* BUN 9 CREAT 0.65* NA 140 K 4.0 CHLOR 104 CO2 29 ALB 2.6* CA 8.5 MG 1.9 Bronchoscopy Rapid On-Site Evaluation (GWEN): Preliminary cytology of the lesion in the right lower lobe was suggestive of non small cell carcinoma Impression: - Right upper lobe cavitary mass - The airway examination was abnormal. -RLL endobronchial disease at stump -Purulent secretison from RUL - Lymph node sizing and sampling was performed. 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 - Transbronchial lung biopsies were performed. -Ablation performed over RLL endobronchial lesion Recommendation: Oncology consulation Some thickening of vocal cords noted. ENT consultation A - Lung, Right Lower Lobe, Transbronchial, FNA - right lower lobe TBNA Positive for malignant cells. Squamous cell carcinoma, keratinizing type. (See comment.) B - Lung, Right Upper Lobe, Transbronchial, FNA - right upper lobe TBNA Rare atypical squamous cells present in a background of abscess, not otherwise diagnostic. (See comment.) C - Lymph Node, Transbronchial, FNA - 4L Negative for malignant cells. Benign lymphoid sample. D - Lymph Node, Transbronchial, FNA - 2R Negative for malignant cells. Benign lymphoid sample. E - Lymph Node, Transbronchial, FNA - 4R Negative for malignant cells. Benign lymphoid sample. F - Lymph Node, Transbronchial, FNA - 11RS Negative for malignant cells. Benign lymphoid sample. G - Lung, Right Upper Lobe, Transbronchial, FNA - right upper lobe consolidation Rare atypical cells present, favor radiation atypia. 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 and s/p ablation at stump per verbal report # hx prostate cancer s/p XRT # atrial fibrillation # AAA w/o repair or rupture # COPD # HTN # HPL MMP PLAN: Off oxygen Patient aware of cancer recurrence Antibiotics per ID Await other final pathology - cytology results above Oncology following ENT consult Mobilize, flutter to bedside Ambulatory sat if able Discussed with staff/patient SIGNATURE: Haile Alfaro Jr, MD PATIENT NAME: Stevie Angeles DATE: November 02, 2024 TIME: 1:34 PM [1] Social History Tobacco Use Smoking status: Former Current packs/day: 0.00 Average packs/day: 1 pack/day for 40.0 years (40.0 ttl pk-yrs) Types: Cigarettes Start date: 07/1981 Quit date: 07/2021 Years since quittin.2 Passive exposure: Past Smokeless tobacco: Never Vaping Use Vaping status: Never Used Substance Use Topics Alcohol use: Not Currently Alcohol/week: 6.0 standard drinks of alcohol Types: 6 Glasses of wine per week Drug use: No MAGNESIUM SERPL-MCNC Collected: 11/02/2024 4:32 AM S tatus: F Source: [facility] Order Comment: Specimen Type : BLOOD SPECIMEN Ordering Facility: [facility] Address: [address] [place] [address] TYPE CODE TESTS RESULT OUT OF RANGE REFERENCE UNITS LAB (LOINC) Magnesium SerPl-mCnc 1.9 1.7-2.3 mg/dL Performed By: #### 79635-7, 92532-1 #### [facility] CLIA [id number] [address] [id number] [place] [facility] 1999 PNL SERPL Collected: 4:32 AM Status: F Source: [facility] Order Comment: Specimen Type : BLOOD SPECIMEN Ordering Facility: [facility] Address: [address] [place] [address] TYPE CODE TESTS RESULT OUT OF RANGE REFERENCE UNITS LAB 1751-7(LOINC) Albumin SerPl-mCnc 2.6 Low 3.9-4.9 g/dL LAB 35813-2(LOINC) Calcium SerPl-mCnc 8.5 8.5-10.2 mg/dL LAB 2777-1(LOINC) Phosphate SerPl-mCnc 2.7 2.7-4.8 mg/dL LAB 2345-7(LOINC) Glucose SerPl-mCnc 107 High 74-99 mg/dL Result Comment: The [place] [employer] (ADA) provides guidance for cutoff values for fasting glucose and random glucose. The ADA defines fasting as no caloric intake for at least 8 hours. Fasting plasma glucose results between 100 to 125 mg/dL indicate increased risk for diabetes (prediabetes). Fasting plasma glucose results greater than or equal to 126 mg/dL meet the criteria for diagnosis of diabetes. In the absence of unequivocal hyperglycemia, results should be confirmed by repeat testing. In a patient with classic symptoms of hyperglycemia or hyperglycemic crisis, random plasma glucose results greater than or equal to 200 mg/dL meet the criteria for diagnosis of diabetes. Reference: Standards of Medical Care in Diabetes 2016, [place] [employer]. Diabetes Care. 2016.39(Suppl 1). LAB 3094-0(LOINC) BUN SerPl-mCnc 9 9-24 mg/dL LAB 2160-0(LOINC) Creat SerPl-mCnc 0.65 Low 0.73-1.22 mg/dL LAB 2951-2(LOINC) Sodium SerPl-sCnc 140 136-144 mmol/L LAB 2823-3(LOINC) Potassium SerPl-sCnc 4.0 3.7-5.1 mmol/L LAB 2075-0(LOINC) Chloride SerPl-sCnc 104 98-107 mmol/L LAB 2028-9(LOINC) CO2 SerPl-sCnc 29 22-30 mmol/L LAB 69876-5(LOINC) Anion Gap SerPl-sCnc 7 Low 8-15 mmol/L LAB 32399-4(LOINC) eGFRcr SerPlBld CKD-EPI 2020 100 >=60 mL/min/1. 73m??? Result Comment: Estimated Gl omerular Filtration Rate (eGFR) is calculated using the 2020 CKD-EPI creatinine equation. This equation utilizes serum creatinine, sex, and age as parameters. The creatinine assay has traceable calibration to isotope dilution-mass spectrometry. Refer to KDIGO guidelines for clinical interpretation. In patients with unstable renal function, e.g. those with acute kidney injury, the eGFR may not accurately reflect actual GFR. Performed By: #### 61698-6, 27562-8 #### [facility] CLIA [id number] [address] CBC PNL BLD AUTO Collected: 11/02/2024 4:32 AM Statu s: F Source: [facility] Order Comment: Specimen Type : BLOOD SPECIMEN Ordering Facility: [facility] Address: [address] [place] [address] TYPE CODE TESTS RESULT OUT OF RANGE REFERENCE UNITS LAB 6690-2(LOINC) WBC # Bld Auto 8.77 3.70-11.00 k/uL LAB 789-8(LOINC) RBC # Bld Auto 3.63 Low 4.20-6.00 m/uL LAB 718-7(LOINC) Hgb Bld-mCnc 10.9 Low 13.0-17.0 g/dL LAB 4544-3(LOINC) Hct VFr Bld Auto 35.1 Low 39.0-51.0 % LAB 787-2(LOINC) MCV RBC Auto 96.7 80.0-100.0 fL LAB 785-6(LOINC) MCH RBC Qn Auto 30.0 26.0-34.0 pg LAB 786-4(LOINC) MCHC RBC Auto-mCnc 31.1 30.5-36.0 g/dL LAB 17698-8(LOINC) RDW RBC-Rto 14.6 11.5-15.0 % LAB 777-3(LOINC) Platelet # Bld Auto 392 150-400 k/uL LAB 65523-8(LOINC) PMV Bld Auto 8.9 Low 9.0-12.7 fL LAB 771-6(LOINC) nRBC # Bld Auto <0.01 <0.01 k/uL Performed By: #### [id number] # ### [facility] CLIA [id number] [address] CASE MANAGEM Observed: 11/01/2024 12:42 PM Status: COMPLETED Source: [facility] HNO ID: [id number] Author: GRACIELA SIFUENTES RN Service: Care Management Author Type: Registered Nurse Type: Care Mgt Progress Note Filed: 11/01/2024 16:21 Note Text: CARE MANAGEMENT PROGRESS NOTE SERVICE DATE: 11/01/2024 SERVICE TIME: 12:43 PM LOS: 8 days Needs Prior to Discharge: To Be Determined, Accepting Facility, Bed Availability, Facility or Agency Choices, IV Antibiotics, Precertification, Other: See Comment (CoPAT) [place] of Choice Given: Yes Level of Care Discussed: [facility]dc Facility Financial Disclosure Provided: Yes Provider List: [facility]dc Facility Provider list within the patient's requested geographic area shared with the patient/family: Yes of zip code: [address] Quality and resource use metrics shared with the patient that are relevant to the patient's goals of care and treatment preferences:: Yes Metrics: Functional Status, Discharge to Community, Potentially Preventable 30-day Post Discharge Readmission Rates EMR reviewed. Met with patient at bedside to discuss discharge planning. OT rec SNF. ID note indicates likely need for IV ATB for 4-6 weeks at d/c. Patient states I think you are going overboard with all of this, I was fine when I came in and feel like I will be fine going home. Discussed with patient that he has an infection in his lungs that will require treatment and will likely worsen if not properly treated. Pulmonology rounded while CM in and discussed findings on the Bronch further. Patient wants some time to think about SNF and call his niece to see if she thinks she can help him out with the antibiotics and care athome. SNF list left for patient to review as well. Will need precert. Need CoPAT and PICC line placement for IV ATB. 4:20 PM Met with patient at bedside to follow up if he has had a chance to talk with his niece about helping at home with IV ATB. He advised he has been trying but has not been able to talk with her. Will need to follow up for decision SNF vs HHC if family is able to assist. SIGNATURE: Graciela Sifuentes RN PATIENT NAME: Stevie Angeles DATE: November 01, 2024 TIME: 12:42 PM NUTRITION Observed: 11/01/2024 12:28 PM Status: COMPLETED Source: [facility] HNO ID: [id number] Author: CRISTOPHER FERREIRA RD Service: Nutrition Therapy Author Type: Registered Dietitian Type: Nutrition Filed: 11/01/2024 12:28 Note Text: NUTRITION THERAPY SERVICE DATE: 11/01/2024 SERVICE TIME: 10:45 am Visit Type: Length of Stay Plan of Care: Intake- 75-100 % of meals. Monitor intake. Reviewed current labs and physician progress notes. Nursing Admission Assessment Malnutrition Score: 0 Nutrition Intake: Diet Orders (From admission, onward) Start Ordered 10/29/24 1800 DIET REGULAR START NOW 10/29/241754 Anthropometrics: Body mass index is 23.25 kg/m?. MNT Billing: $ Routine Care : 1 unit SIGNATURE: Cristopher Ferreira RD PATIENT NAME: Stevie Angeles DATE: November 01, 2024 TIME: 12:28 PM PROGRESS Observed: 11/01/2024 11:57 AM Status: COMPLETED Source: [facility] HNO ID: [id number] Author: HAILE ALFARO JR, MD Service: Critical Care Author Type: Physician Type: Progress Notes Filed: 11/01/2024 12:05 Note Text: PULM / CRITICAL CARE PROGRESS NOTE SERVICE DATE: November 01, 2024 SERVICE TIME: 11:57 AM Admission Date: 10/24/2024 AGE: [age] year old LOS: 8 days Subjective Cc: infection, possible recurrent cancer Taking with patient care regarding rehab No chest pain Knows that cancer was found on cytology of bronchoscopy Objective PROBLEMS: ACTIVE PROBLEM LIST Glucose Intolerance (Impaired Glucose Tolerance) Primary Hypertension Mixed Hyperlipidemia Cigarette Nicotine 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 Paresthesias Lumbosacral Neuritis Infrarenal Abdominal Aortic Aneurysm (Aaa) Without Rupture Hdl Deficiency Prostate Cancer (Hcc) Paroxysmal Atrial Fibrillation (Hcc) Cancer of Lower Lobe of Right Lung (Hcc) Postoperative Pain Copd (Chronic Obstructive Pulmonary Disease) (Hcc) Lung Abscess (Hcc) Pleural Effusion, Left Bronchopleural Fistula (Hcc) Pneumothorax Hearing Loss Cavitary Lesion of Lung Anemia Sepsis (Hcc) Malignant Neoplasm of Upper Lobe of Right Lung (Hcc) S/P Lobectomy of Lung Thoracic Lymphadenopathy Ex-Smoker Bacterial Pneumonia Hypoxemia PAST MEDICAL HISTORY Diagnosis Date Abdominal aortic aneurysm without rupture Elevated PSA Hearing loss HTN (hypertension) Lumbosacral neuritis Malignant neoplasm of prostate (HCC) Other and unspecified hyperlipidemia Prostate cancer (HCC) 2020 xrt at [facility] [place] Smoker former quit 2021 Spinal stenosis of lumbar region with neurogenic claudication PAST SURGICAL HISTORY Procedure Laterality Date COLONOSCOPY 05/28/2008 HERNIA REPAIR HX age 20 PROSTATE BIOPSY HX 2020 REMOVAL OF LUNG,LOBECTOMY Right 11/15/2023 Robotic-assisted right lower lobectomy with right lower lobe bronchoplasty closure of airway and mediastinal and hilar lymph node dissection, intercostal and phrenic nerve block SOCIAL HISTORY[1] VITAL SIGNS (last 24hrs min/max): Temp Av.7 ?C (98 ?F) Min: 36.4 ?C (97.5 ?F) Max: 36.8 ?C (98.2 ?F) Pulse Av.9 Min: 61 Max: 77 No data recorded Cuff BP Min: 95/61 Max: 116/71 Pain Level: 0 Vital signs reviewed. BP 97/66 Pulse 66 Temp (Src) 97.3 (Temporal) Resp 18 Ht 5' 10 (1.78m) Wt 162 lb 0.6 oz (73.5kg) SpO2 97% BMI 23.25 kg/(m2). O2 Therapy: Nasal Cannula, Liters (Numeric Only): 1 Temp (24hrs), Av.5 ?C (97.7 ?F), Min:36.3 ?C (97.3 ?F), Max:36.8 ?C (98.2 ?F) NET FLUID BALANCE Intake/Output Summary (Last 24 hours) at 11/01/2024 1157 Last data filed at 11/01/2024 0850 Gross per 24 hour Intake 480 ml Output 1850 ml Net -1370 ml MEDICATIONS Current Facility-Administered Medications Medication Dose Route Frequency acetaminophen 650 mg tab(s) (TYLENOL) 650 mg ORAL q 8 H metoprolol succinate ER 25 mg tab(s) (TOPROL XL) 25 mg ORAL DAILY NaCl 0.9% iv flush bag 20 mL INTRAVENOUS PRN piperacillin-tazobactam iv piggyback 3.375 g in dextrose (iso-osmotic) 50 mL (ZOSYN) 3.375 g INTRAVENOUS q 6 H guaiFENesin 600 mg ER tab(s) (MUCINEX) 600 mg ORAL q 12 H albuterol 2.5 mg /3 mL (0.083 %) 2.5 mg (PROVENTIL) 2.5 mg INHALATION QID budesonide 0.5 mg/2 mL 0.5 mg (PULMICORT) 0.5 mg INHALATION BID gabapentin 600 mg cap(s) (NEURONTIN) 600 mg ORAL TID Lines, Drains, and Airways Line Duration Peripheral 10/27/24 0508 Left Wrist 22 Gauge 5 days Drain Duration External Collection Device 10/24/24 2300 7 days PHYSICAL EXAM PERFORMED: General: no distress ENT: OP clear Cardiovascular: Regular Respiratory: Rare rhonchi Abdomen: Soft and Nontender Extremities: Edema- No Neurologic: Awake, oriented, Alert, Follows commands, and Moving all extremities Respiratory/Nursing Documentation: O2 Therapy: Nasal Cannula (11/01/24 1136) HEMODYNAMIC DATA: Reviewed DATA: Diagnostic tests reviewed for today's visit, films/specimens were personally reviewed by me: Most recent labs and imaging results. LABS: Bronchoscopy Rapid On-Site Evaluation (GWEN): Preliminary cytology of the lesion in the right lower lobe was suggestive of non small cell carcinoma Impression: - Right upper lobe cavitary mass - The airway examination was abnormal. -RLL endobronchial disease at stump -Purulent secretison from RUL - Lymph node sizing and sampling was performed. 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 - Transbronchial lung biopsies were performed. -Ablation performed over RLL endobronchial lesion Recommendation: Oncology consulation Some thickening of vocal cords noted. ENT consultation A - Lung, Right Lower Lobe, Transbronchial, FNA - right lower lobe TBNA Positive for malignant cells. Squamous cell carcinoma, keratinizing type. (See comment.) B - Lung, Right Upper Lobe, Transbronchial, FNA - right upper lobe TBNA Rare atypical squamous cells present in a background of abscess, not otherwise diagnostic. (See comment.) C - Lymph Node, Transbronchial, FNA - 4L Negative for malignant cells. Benign lymphoid sample. D - Lymph Node, Transbronchial, FNA - 2R Negative for malignant cells. Benign lymphoid sample. E - Lymph Node, Transbronchial, FNA - 4R Negative for malignant cells. Benign lymphoid sample. F - Lymph Node, Transbronchial, FNA - 11RS Negative for malignant cells. Benign lymphoid sample. G - Lung, Right Upper Lobe, Transbronchial, FNA - right upper lobe consolidation Rare atypical cells present, favor radiation atypia. 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 Ok for discharge from a pulmonary standpoint Discussed with staff/patient SIGNATURE: Haile Alfaro Jr, MD PATIENT NAME: Stevie Angeles DATE: November 01, 2024 TIME: 11:58 AM [1] Social History Tobacco Use Smoking status: Former Current packs/day: 0.00 Average packs/day: 1 pack/day for 40.0 years (40.0 ttl pk-yrs) Types: Cigarettes Start date: 07/1981 Quit date: 07/2021 Years since quittin.2 Passive exposure: Past Smokeless tobacco: Never Vaping Use Vaping status: Never Used Substance Use Topics Alcohol use: Not Currently Alcohol/week: 6.0 standard drinks of alcohol Types: 6 Glasses of wine per week Drug use: No PROGRESS Observed: 11/01/2024 11:32 AM Status: COMPLETED Source: [facility] HNO ID: [id number] Author: SYED LEI MD Service: Hospital Medicine Author Type: Physician Type: Progress Notes Filed: 11/01/2024 15:47 Note Text: DEPARTMENT OF HOSPITAL MEDICINE PROGRESS NOTE SERVICE DATE: 11/01/2024 SERVICE TIME: 11:33 AM Hospital Medicine/Primary Attending: Syed Lei,* NIGHT AND WEEKEND COVERAGE: [facility] COVERAGE: Days: [phone], please page attending physician. Nights: [phone], please page [facility] Hospitalist Night coverage pager [phone]. Subjective INTERVAL HPI: Seen and examined, patient was resting. States he got his hearing aide today. He has no new complaints. Endorses ongoing cough. No chest pain. Decreased appetite, no nausea, vomiting or abdominal pain. Discussed discharge planning, OT recommended SNF placement. Patient states he is not interested in SNF placement. Current Facility-Administered Medications Medication Dose Route Frequency NaCl 0.9% iv flush bag 20 mL INTRAVENOUS PRN piperacillin-tazobactam iv piggyback 3.375 g in dextrose (iso-osmotic) 50 mL (ZOSYN) 3.375 g INTRAVENOUS q 6 H guaiFENesin 600 mg ER tab(s) (MUCINEX) 600 mg ORAL q 12 H albuterol 2.5 mg /3 mL (0.083 %) 2.5 mg (PROVENTIL) 2.5 mg INHALATION QID budesonide 0.5 mg/2 mL 0.5 mg (PULMICORT) 0.5 mg INHALATION BID gabapentin 600 mg cap(s) (NEURONTIN) 600 mg ORAL TID metoprolol succinate ER 25 mg tab(s) (TOPROL XL) 25 mg ORAL DAILY acetaminophen 650 mg tab(s) (TYLENOL) 650 mg ORAL q 8 H Objective PHYSICAL EXAM: BP 106/54 Pulse 63 Temp (Src) 97.7 (Oral) Resp 18 Ht 5' 10 (1.78m) Wt 162 lb 0.6 oz (73.5kg) SpO2 99% BMI 23.25 kg/(m2). O2 Therapy: Nasal Cannula, Liters (Numeric Only): 1 Physical Exam Performed Alert Hard of hearing CV RRR Lungs scattered crackles Abdomen soft, nontender No lower extremity edema Lines, Drains, and Airways Line Duration Peripheral 10/27/24 0508 Left Wrist 22 Gauge 5 days Drain Duration External Collection Device 10/24/24 2300 7 days Reviewed lines and needs to be continued: REASONS: Intravenous antibiotics DATA: Diagnostic tests reviewed for today's visit: Most recent imaging CBC, Coags, BMP, Mg, Phos Liver Function, Amylase, AND Lipase HOSPITAL COURSE: Stevie Angeles is a 74 year old male presented with past medical history of AAA, A-fib (postop in October 2023, not on anticoagulant), COPD, hypertension, 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 Patient was at his PCP office for follow-up visit, he noted to have elevated heart rate 170, patient reported shortness of breath. He also reports chronic cough noticed in the worsening of cough and productive of sputum. Patient developed A-fib RVR in October 2023 after right lower Lobectomy. In ED BP 83/55, elevated heart rate. Patient was in SVT, he was given adenosine, converted to A-fib and then to sinus rhythm. WBC 12.07, hemoglobin 11.8, platelets 448. Magnesium 1.6 rest of BMP unremarkable. Troponin 39, then 35 and 39. CTA chest, thick-walled right upper lobe cavity mass is noted with an associated air-fluid level. May be infectious/inflammatory process. Malignancy not excluded. Mediastinal lymphadenopathy. He received 612 mg of adenosine by EMS. In ED patient was given gabapentin, IV Lopressor, p.o. Lopressor. He was given 1 L normal saline bolus, IV vancomycin and Zosyn. Patient admitted to telemetry for SVT in setting of paroxysmal A-fib. Patient converted to A-fib After receiving adenosine and then converted to sinus rhythm after receiving IV Lopressor and p.o. Lopressor. Patient was also evaluated by cardiology for SVT. Metoprolol dose was increased to 25 mg twice daily. Right upper lobe cavity mass, pulmonology consulted, underwent bronchoscopy at [facility] on 10/29/2024. Showed right upper lobe cavity mass, right lower lobe endobronchial disease at stump, purulent secretions from right upper lobe. Prelim cytology was suggestive of benign appearing lymphoid tissue in node level 2R, node level 4R, node level 4L and node level 11R, suggestive of squamous cell carcinoma in right lower lobe endobronchial biopsy, and suggestive of benign acute inflammatory changes in right upper lobe. bacterial cultures growing E. coli. Concern for bacterial pneumonia and lung abscess. Patient was continued on IV vancomycin and Zosyn. Infectious disease was consulted. Vancomycin was stopped, Zosyn continued. 10/25/2024 overnight patient developed hypotension, 500 cc of normal saline bolus given. Home hydrochlorothiazide and lisinopril has been on hold. Overall blood pressure has been stable. PT, OT consulted. Patient seen by OT, SNF placement is recommended. Waiting for PT evaluation. Assessment AND Plan Paroxysmal atrial fibrillation (HCC) Present on Admission: Yes HR of 170s at PCP office, given 6 AND 12 mg of Adenosine by EMS for possible SVT Converted to NSR after IV and PO Lopressor HsT 39, 35, 39 H/o post-op afib, not on rate controlling meds or AC Cardiology consulted, started on metoprolol. Anticoagulant contraindicated due to increased bleeding risk. Discontinue Lovenox Echo, LV normal size, EF 55%. LV diastolic function was not evaluated due to A-fib. Right ventricle normal size, right ventricular systolic function normal. Left atrial cavity mildly dilated. No significant valvular abnormalities. Visualized aorta dilated maximal dimension 4.5 cm. 1+ tricuspid regurgitation. Cancer of lower lobe of right lung (HCC) Present on Admission: Yes Cavitary lesion of lung Present on Admission: Yes H/o cancer of RLL s/p lobectomy in 10/2023, at that time appeared more abscess and chemotherapy was not recommended CTA chest shows thick-walled right upper lobe cavitary mass is noted with an associated air-fluid level. This may be an infectious/inflammatory process as it was not present on the exam from 05/08/2024. Malignancy is not excluded. Mediastinal lymphadenopathy may be reactive. WBC 12.07 w/LS, trended up to 19, now improved to 10.74. Blood cultures no growth. Sputum cultures growing E. coli. Urine Legionella negative, HIV negative, mycoplasma negative. MRSA nasal swab negative. Was on vancomycin and Zosyn, vancomycin stopped, Zosyn continued. Procalcitonin 0.21, MRSA not detected Pulmonary consult appreciated ID consulted Heme-onc follow-up outpatient Bronchoscopy at [facility] Completed. Bacterial cultures growing E. coli Anemia Present on Admission: Yes Hgb 11.8 on admit, baseline ~12-13 HANDH stable Mixed hyperlipidemia Present on Admission: Yes Cont statin Infrarenal abdominal aortic aneurysm (AAA) without rupture Present on Admission: Yes Stable Prostate cancer (HCC) Present on Admission: Yes S/p XRT COPD (chronic obstructive pulmonary disease) (HCC) Present on Admission: Yes No s/s of exacerbation Cont home inhaler Lung abscess (HCC) Present on Admission: Yes Sepsis (HCC) Present on Admission: Yes Malignant neoplasm of upper lobe of right lung (HCC) Present on Admission: Yes SP bronchoscopy on 11/16/2024, showing squamous cell carcinoma keratinizing type. Patient follows with Dr. Kevin Gustafson. S/P lobectomy of lung Present on Admission: Yes Thoracic lymphadenopathy Present on Admission: Yes Ex-smoker Present on Admission: Yes Bacterial pneumonia Present on Admission: Yes Cigarette nicotine dependence in remission Present on Admission: Yes Primary hypertension Present on Admission: Yes Stable, cont home meds Hypoxemia Present on Admission: Yes Medication and Non-Pharmacologic VTE Prophylaxis/Anticoagulants 10/24/24 3773 activity - mobilize patient (sd,oh) VTE Prophylaxis: VTE prophylaxis appropriate Disposition: To be determined, SNF versus HHC. May need home oxygen evaluation if plan for DC home. Patient will need ENT follow-up on discharge Plan of care discussed with Provider, RN, Patient Plan communicated to: Patient SIGNATURE: Syed Lei MD, MD PATIENT NAME: Stevie Angeles DATE:11/01/24 TIME:12:09 PM CONSULT PROG Observed: 11/01/2024 10:33 AM Status: COMPLETED Source: [facility] HNO ID: [id number] Author: KURT PEREIRA MD Service: Infectious Disease Author Type: Physician Type: Consult Progress Note Filed: 11/01/2024 22:34 Note Text: INFECTIOUS DISEASE PROGRESS NOTE Patient Name: Stevie Angeles INTERVAL HISTORY: Had BAL and cultures positive for E coli. Cough present. Feels tired. No fevers/ Shortness of Breath is better Patient Active Hospital Problem List: Paroxysmal atrial fibrillation (HCC) Date Noted: 09/11/2023 Primary hypertension Date Noted: 06/23/2010 Mixed hyperlipidemia Date Noted: 06/23/2010 Cigarette nicotine dependence in remission Date Noted: 02/14/2011 Infrarenal abdominal aortic aneurysm (AAA) without rupture Date Noted: 02/08/2021 Prostate cancer (HCC) Date Noted: 09/11/2023 Cancer of lower lobe of right lung (HCC) Date Noted: 11/15/2023 COPD (chronic obstructive pulmonary disease) (HCC) Date Noted: 11/17/2023 Lung abscess (HCC) Date Noted: 11/17/2023 Cavitary lesion of lung Date Noted: 10/24/2024 Anemia Date Noted: 10/24/2024 Sepsis (HCC) Date Noted: 10/25/2024 Malignant neoplasm of upper lobe of right lung (HCC) Date Noted: 10/25/2024 S/P lobectomy of lung Date Noted: 10/25/2024 Thoracic lymphadenopathy Date Noted: 10/25/2024 Ex-smoker Date Noted: 10/25/2024 Bacterial pneumonia Date Noted: 11/01/2024 Hypoxemia Date Noted: 11/01/2024 Folate deficiency Date Noted: 11/01/2024 ASSESSMENT: Stevie Angeles is a 74 year old male with tachycardia and leukocytosis, CT of the chest revealed thick-walled right upper lobe cavitary mass is noted with an associated air-fluid level. Differential includes primary lung abscess, could potentially be from aspiration and poor dentition versus malignancy. Plan: BAL cultures w E coli Suspect superinfected cavitary mass which could have been malignant. Plan on performing bronchoscopy/EBUS at [facility] on 10/29. Stop piperacillin tazobactam and can stop vancomycin Start unasyn For now pending Legionella and Streptococcus pneumonia urine antigen, pending mycoplasma pneumonia PCR on sputum. NR HIV 1/2 and pending TB QuantiFERON gold. CoPAT anticipated on discharge x 4-6 weeks w follow up imaging in 4 weeks I have reviewed and interpreted all lab test imaging studies and documentations from other healthcare providers I am monitoring antibiotics for side effects and toxicity MEDICATIONS: reviewed. Current Facility-Administered Medications Medication Dose Route Frequency NaCl 0.9% iv flush bag 20 mL INTRAVENOUS PRN piperacillin-tazobactam iv piggyback 3.375 g in dextrose (iso-osmotic) 50 mL (ZOSYN) 3.375 g INTRAVENOUS q 6 H guaiFENesin 600 mg ER tab(s) (MUCINEX) 600 mg ORAL q 12 H albuterol 2.5 mg /3 mL (0.083 %) 2.5 mg (PROVENTIL) 2.5 mg INHALATION QID budesonide 0.5 mg/2 mL 0.5 mg (PULMICORT) 0.5 mg INHALATION BID gabapentin 600 mg cap(s) (NEURONTIN) 600 mg ORAL TID metoprolol succinate ER 25 mg tab(s) (TOPROL XL) 25 mg ORAL DAILY acetaminophen 650 mg tab(s) (TYLENOL) 650 mg ORAL q 8 H folic acid 1 mg in NaCl 0.9% 50 mL 1 mg INTRAVENOUS DAILY PHYSICAL EXAM: Vital signs: BP 111/69 Pulse 78 Temp 37.3 ?C (99.1 ?F) (Oral) Resp 18 Ht 177.8 cm (5' 10) Wt 73.5 kg (162 lb 0.6 oz) SpO2 95% BMI 23.25 kg/m? Temp (24hrs), Av.8 ?C (98.2 ?F), Min:36.3 ?C (97.3 ?F), Max:37.4 ?C (99.3 ?F) General: alert, oriented, NAD Lungs: bilaterally clear to auscultation Heart: regular rate and rhythm Abdomen: soft, non tender, non distended, BS+ Extremities: no edema No rashes No joint inflammation Neck supple Lines ok No CVAT Lines, Drains, and Airways Line Duration Peripheral 10/27/24 0508 Left Wrist 22 Gauge 5 days Drain Duration External Collection Device 10/24/24 2300 7 days Labs: reviewed Microbiology data: reviewed Imaging data: reviewed Kurt Pereira MD [phone] 11/01/2024 10:33 AM VIT B12 SERPL-MCNC Collected: 11/01/2024 5:01 AM Sta tus: F Source: [facility] Order Comment: Specimen Type : BLOOD SPECIMEN Ordering Facility: [facility] Address: [address] [place] [address] TYPE CODE TESTS RESULT OUT OF RANGE REFERENCE UNITS LAB 2132-9(LOINC) Vit B12 SerPl-mCnc 236 934-6911 pg/mL Performed By: #### 2132-9, 2 284-8 #### [facility] CLIA [id number] [address] [place] [address] [facility] FOLATE SERPL-MCNC Collected: 11/01/2024 5:01 AM Stat us: F Source: [facility] Order Comment: Specimen Type : BLOOD SPECIMEN Ordering Facility: [facility] Address: [address] [place] [address] TYPE CODE TESTS RESULT OUT OF RANGE REFERENCE UNITS LAB 2284-8(LOINC) Folate SerPl-mCnc 2.8 Low >4.7 ng/mL Performed By: #### 2132-9, 2 284-8 #### [facility] CLIA [id number] [address] [place] [address] [facility] PROGRESS Observed: 10/31/2024 3:32 PM Status: COMPLETED Source: [facility] HNO ID: [id number] Author: RADHA GARCÍA APRN.ELVIRA Service: ? Author Type: Nurse Practitioner Type: Progress Notes Filed: 10/31/2024 15:44 Note Text: October 31, 2024 3:[address] Cantu/Jeana patient Order for PET CT in 2-3 weeks signed for today to facilitate treatment with plans for patient to follow up with Dr. Charles in 1-[address] scan completed. Message sent to our scheduling team. Radha García APRN.PROGRAM SUPPORT ASSISTANT CASE MANAGEM Observed: 10/31/2024 2:38 PM Status: COMPLETED Source: [facility] HNO ID: [id number] Author: FARIDEH VIVEROS RN Service: Care Management Author Type: Registered Nurse Type: Care Mgt Progress Note Filed: 10/31/2024 14:42 Note Text: CARE MANAGEMENT PROGRESS NOTE SERVICE DATE: 10/31/2024 SERVICE TIME: 2:39 PM LOS: 7 days Needs Prior to Discharge: To Be Determined, Other: See Comment (medical clearance) EMR reviewed. PT eval pending. OT recommending SNF. Will await PT eval before discussing DC planning with patient. CM assigned will continue to follow for DC planning needs. SIGNATURE: Farideh Viveros RN PATIENT NAME: Stevie Angeles DATE: October 31, 2024 TIME: 2:39 PM PROGRESS Observed: 10/31/2024 11:45 AM Status: COMPLETED Source: [facility] HNO ID: [id number] Author: SYED LEI MD Service: Hospital Medicine Author Type: Physician Type: Progress Notes Filed: 10/31/2024 11:49 Note Text: DEPARTMENT OF HOSPITAL MEDICINE PROGRESS NOTE SERVICE DATE: 10/31/2024 SERVICE TIME: 11:46 AM Hospital Medicine/Primary Attending: Syed Lei,* NIGHT AND WEEKEND COVERAGE: [facility] COVERAGE: Days: [phone], please page attending physician. Nights: [phone], please page [place] [facility] Night coverage pager [phone]. Subjective INTERVAL HPI: Seen and examined, patient was resting. Patient very hard of hearing. Communicated via writing on board. States he hurts all over, and he is miserable. He denies chest pain, or increased shortness of breath. Tolerating diet. Current Facility-Administered Medications Medication Dose Route Frequency NaCl 0.9% iv flush bag 20 mL INTRAVENOUS PRN piperacillin-tazobactam iv piggyback 3.375 g in dextrose (iso-osmotic) 50 mL (ZOSYN) 3.375 g INTRAVENOUS q 6 H guaiFENesin 600 mg ER tab(s) (MUCINEX) 600 mg ORAL q 12 H albuterol 2.5 mg /3 mL (0.083 %) 2.5 mg (PROVENTIL) 2.5 mg INHALATION QID budesonide 0.5 mg/2 mL 0.5 mg (PULMICORT) 0.5 mg INHALATION BID gabapentin 600 mg cap(s) (NEURONTIN) 600 mg ORAL TID metoprolol succinate ER 25 mg tab(s) (TOPROL XL) 25 mg ORAL DAILY acetaminophen 650 mg tab(s) (TYLENOL) 650 mg ORAL q 8 H Objective PHYSICAL EXAM: BP 97/56 Pulse 67 Temp (Src) 97.3 (Temporal) Resp 18 Ht 5' 10 (1.78m) Wt 162 lb 0.6 oz (73.5kg) SpO2 95% BMI 23.25 kg/(m2). O2 Therapy: Nasal Cannula, Liters (Numeric Only): 1 Physical Exam Performed Alert Very very hard of hearing CV RRR Lungs clear anteriorly Abdomen soft No lower extremity edema Lines, Drains, and Airways Line Duration Peripheral 10/27/24 0508 Left Wrist 22 Gauge 4 days Drain Duration External Collection Device 10/24/24 2300 6 days Reviewed lines and needs to be continued: REASONS: Intravenous antibiotics DATA: Diagnostic tests reviewed for today's visit: Most recent imaging CBC, Coags, BMP, Mg, Phos Recent Labs 10/28/24 1427 INR 1.1 Liver Function, Amylase, AND Lipase HOSPITAL COURSE: Stevie Angeles is a 74 year old male presented with past medical history of AAA, A-fib (postop in October 2023, not on anticoagulant), COPD, hypertension, right lower lung cancer SP RLL lobectomy in October 2023, prostate cancer SP XRT, presented to ED on 10/24/2024 with elevated heart rate. Patient was at his PCP office for follow-up visit, he noted to have elevated heart rate 170, patient reported shortness of breath. He also reports chronic cough noticed in the worsening of cough and productive of sputum. Patient developed A-fib RVR in October 2023 after right lower Lobectomy. In ED BP 83/55, elevated heart rate. Patient was in SVT, he was given adenosine, converted to A-fib and then to sinus rhythm. WBC 12.07, hemoglobin 11.8, platelets 448. Magnesium 1.6 rest of BMP unremarkable. Troponin 39, then 35 and 39. CTA chest, thick-walled right upper lobe cavity mass is noted with an associated air-fluid level. May be infectious/inflammatory process. Malignancy not excluded. Mediastinal lymphadenopathy. He received 612 mg of adenosine by EMS. In ED patient was given gabapentin, IV Lopressor, p.o. Lopressor. He was given 1 L normal saline bolus, IV vancomycin and Zosyn. Patient admitted to telemetry for SVT in setting of paroxysmal A-fib. Patient converted to A-fib After receiving adenosine and then converted to sinus rhythm after receiving IV Lopressor and p.o. Lopressor. Right upper lobe cavity mass, pulmonology consulted, plan for bronchoscopy and biopsy at [facility]. Patient was also evaluated by cardiology for SVT. Metoprolol dose was increased to 25 mg twice daily. Patient was continued on IV vancomycin and Zosyn. Evaluated by pulmonary and ID. 10/25/2024 overnight patient developed hypotension, 500 cc of normal saline bolus given. Assessment AND Plan Paroxysmal atrial fibrillation (HCC) Present on Admission: Yes HR of 170s at PCP office, given 6 AND 12 mg of Adenosine by EMS for possible SVT Converted to NSR after IV and PO Lopressor HsT 39, 35, 39 H/o post-op afib, not on rate controlling meds or AC Cardiology consulted, started on metoprolol. Anticoagulant contraindicated due to increased bleeding risk. Discontinue Lovenox Echo, LV normal size, EF 55%. LV diastolic function was not evaluated due to A-fib. Right ventricle normal size, right ventricular systolic function normal. Left atrial cavity mildly dilated. No significant valvular abnormalities. Visualized aorta dilated maximal dimension 4.5 cm. 1+ tricuspid regurgitation. Cancer of lower lobe of right lung (HCC) Present on Admission: Yes Cavitary lesion of lung Present on Admission: Yes H/o cancer of RLL s/p lobectomy in 10/2023, at that time appeared more abscess and chemotherapy was not recommended CTA chest shows thick-walled right upper lobe cavitary mass is noted with an associated air-fluid level. This may be an infectious/inflammatory process as it was not present on the exam from 05/08/2024. Malignancy is not excluded. Mediastinal lymphadenopathy may be reactive. WBC 12.07 w/LS, trended up to 19, now improved to 10.74. Blood cultures no growth. Sputum cultures growing E. coli. Urine Legionella negative, HIV negative, mycoplasma negative. MRSA nasal swab negative. Was on vancomycin and Zosyn, vancomycin stopped, Zosyn continued. Procalcitonin 0.21, MRSA not detected Pulmonary consult appreciated ID consulted Heme-onc follow-up outpatient Bronchoscopy at [facility] Completed. Bacterial cultures growing E. coli Anemia Present on Admission: Yes Hgb 11.8 on admit, baseline ~12-13 HANDH stable Mixed hyperlipidemia Present on Admission: Yes Cont statin Infrarenal abdominal aortic aneurysm (AAA) without rupture Present on Admission: Yes Stable Prostate cancer (HCC) Present on Admission: Yes S/p XRT Stage 1 mild COPD by GOLD classification (HCC) Present on Admission: Yes No s/s of exacerbation Cont home inhaler Lung abscess (HCC) Present on Admission: Yes Sepsis (HCC) Present on Admission: Yes Malignant neoplasm of upper lobe of right lung (HCC) Present on Admission: Yes S/P lobectomy of lung Present on Admission: Status not on file Thoracic lymphadenopathy Present on Admission: Status not on file Ex-smoker Present on Admission: Yes Medication and Non-Pharmacologic VTE Prophylaxis/Anticoagulants 10/24/24 2245 activity - mobilize patient (sd,nm) VTE Prophylaxis: VTE prophylaxis appropriate Disposition: To be determined Plan of care discussed with Provider, RN, Patient Plan communicated to: Patient SIGNATURE: Syed Lei MD, MD PATIENT NAME: Stevie Angeles DATE:10/31/24 TIME:11:49 AM CONSULT Observed: 10/31/2024 11:27 AM Status: COMPLETED Source: [facility] HNO ID: [id number] Author: RADHA GARCÍA APRN.PROGRAM SUPPORT ASSISTANT Service: Hematology/Oncology Author Type: Nurse Practitioner Type: Consults Filed: 11/01/2024 12:40 Note Text: Attestation signed by Kevin Cantu MD at 11/01/2024 2:20 PM Attending Note I have personally performed a face to face assessment of the patient and have reviewed the ANGELITO note. I performed a substantive portion of the visit including all aspects of the following. My turcios findings include: Bronch and prelim concerning for recurrence of NSCLC but will wait for final pathology. In light the high likelihood of reucrrence, will set up PET/CT as an outpatient and follow-up afterwards. Other additions or changes: None Signature: Kevin Cantu MD Date: 11/01/2024 Time: 2:19 PM HEMATOLOGY/ONCOLOGY INITIAL CONSULT NOTE SERVICE DATE: 10/31/2024 REASON FOR CONSULT: Recurrent lung cancer REQUESTING PHYSICIAN: Syed Lei MD PRIMARY CARE PHYSICIAN: Praful Su MD Subjective Mr. Angeles is a 74 year old male with PMHx significant for HTN, HLD, COPD, A fib (post-op in 10/2023, not on AC), AAA (wo repair/rupture), prostate cancer (dx 2020, 3+4=7, stage IIA, s/p TRUS biopsy, s/p Lupron, s/p EBRT in 12/2020) and NSCLC (dx 08/2023, SCC of RLL (8.3 cm) and RUL (2 cm), unclear if iplsateral lung metastatic disease), PD-L1 0%, s/p right lower lobectomy on 11/15/2023 which was primarily abscess with pT1c lesion and no positive lymph nodes, adjuvant chemo was not indicated, s/p SBRT to RUL lesion, no evidence of recurrent disease, follows with Dr. Cantu) who presented to ED on 10/24/2024 for elevated HR in 170s in SVT at his PCPs office visit. He was given Adenosine by EMS and converted. He reported chronic shortness of breath and cough which has worsened and he is bringing up clear-yellow sputum. He denied fevers, chills, chest pain,palpitations, abdominal pain, nausea/vomiting, diarrhea, dysuria or leg swelling. In ED, he was hypotensive (BP 83/55) and found to be in A flutter with RVR which resolved with IV Metoprolol. Labs significant for Mg 1.6, procalcitonin 0.21, lactate 2.0, HS HARIKA 39 -> 35 -> 39, WBC 12.07, ANC 9.89, Hgb 11.8, Plt 448. Blood cultures sent. CTA chest was negative for PE but showed thick-walled right upper lobe cavitary mass is noted with an associated air-fluid level (this may be an infectious/inflammatory process as it was not present on the exam from 05/08/2024), malignancy is not excluded; mediastinal lymphadenopathy may be reactive. Patient was admitted to [facility] for further work-up and management and hematology oncology has been consulted for recurrent lung cancer. PAST MEDICAL HISTORY Diagnosis Date Abdominal aortic aneurysm without rupture Elevated PSA Hearing loss HTN (hypertension) Lumbosacral neuritis Malignant neoplasm of prostate (HCC) Other and unspecified hyperlipidemia Prostate cancer (HCC) 2020 xrt at [facility] [place] Smoker former quit 2021 Spinal stenosis of lumbar region with neurogenic claudication PAST SURGICAL HISTORY Procedure Laterality Date COLONOSCOPY 05/28/2008 HERNIA REPAIR HX age 20 PROSTATE BIOPSY HX 2020 REMOVAL OF LUNG,LOBECTOMY Right 11/15/2023 Robotic-assisted right lower lobectomy with right lower lobe bronchoplasty closure of airway and mediastinal and hilar lymph node dissection, intercostal and phrenic nerve block FAMILY HISTORY Problem Relation Age of Onset other (high blood pressure [Other]) Mother Diabetes Mother Hearing Loss Mother Prostate Cancer Other SOCIAL HISTORY[1] Prescriptions Prior to Admission[2] Current Facility-Administered Medications Medication Dose Route Frequency NaCl 0.9% iv flush bag 20 mL INTRAVENOUS PRN piperacillin-tazobactam iv piggyback 3.375 g in dextrose (iso-osmotic) 50 mL (ZOSYN) 3.375 g INTRAVENOUS q 6 H guaiFENesin 600 mg ER tab(s) (MUCINEX) 600 mg ORAL q 12 H albuterol 2.5 mg /3 mL (0.083 %) 2.5 mg (PROVENTIL) 2.5 mg INHALATION QID budesonide 0.5 mg/2 mL 0.5 mg (PULMICORT) 0.5 mg INHALATION BID gabapentin 600 mg cap(s) (NEURONTIN) 600 mg ORAL TID metoprolol succinate ER 25 mg tab(s) (TOPROL XL) 25 mg ORAL DAILY acetaminophen 650 mg tab(s) (TYLENOL) 650 mg ORAL q 8 H Allergies As of Date: 10/24/2024 (No Known Allergies) Fully Assessed 10/24/2024 COMPLETE REVIEW OF SYSTEMS: As noted in HPI Objective BP 97/56 Pulse 67 Temp (Src) 97.3 (Temporal) Resp 18 Ht 5' 10 (1.78m) Wt 162 lb 0.6 oz (73.5kg) SpO2 95% BMI 23.25 kg/(m2). O2 Therapy: Nasal Cannula, Liters (Numeric Only): 1 PHYSICAL EXAM: GENERAL: No acute distress. AANDO. EKWOK HEENT: Normocephalic, atraumatic. Normal conjunctiva, no scleral icterus. No mouth sores or thrush. LUNGS: Normal respiratory effort. Clear to auscultation bilaterally, no rubs, no wheezing. CARDIAC: Regular rhythm ABDOMEN: Abdomen soft, non-tender, BS normal. EXTREMITIES: No edema. SKIN: No rashes or lesions. No bruises. NEURO: Sensation grossly intact PSYCH: Pleasant and cooperative. Mood stable. DATA: Diagnostic tests reviewed for today's visit: Recent Labs 10/28/24 1427 INR 1.1 Impression/Recommendations Mr. Angeles is a 74 year old male with history of prostate cancer and NSCLC who presented with elevated HR, chronic shortness of breath and worsening productive cough and he was admitted to [facility] for further work-up and management and hematology oncology was consulted for recurrent lung cancer. Principal Problem: Cancer of lower lobe of right lung (HCC) (POA: Yes) S/P lobectomy of lung (POA: Unknown) Thoracic lymphadenopathy (POA: Unknown) Cavitary lesion of lung (POA: Yes) History of prostate cancer (HCC) (POA: Yes) Ex-smoker (POA: Yes) Leucocytosis Anemia (POA: Yes) Sepsis (HCC) (POA: Yes) Lung abscess (HCC) (POA: Yes) Paroxysmal atrial fibrillation (HCC) (POA: Yes) Assessment AND Plan: - chart reviewed, labs reviewed, imaging reviewed - patient case discussed with Dr. Cantu - patient with PMHx significant for HTN, HLD, COPD, A fib (post-op in 10/2023, not on AC), AAA (wo repair/rupture) - patient with hx of prostate cancer, dx 2020, 3+4=7, stage IIA, s/p TRUS biopsy, s/p Lupron, s/p EBRT in 12/2020 - he also was diagnosed in 08/2023 with NSCLC, SCC of RLL (8.3 cm) and RUL (2 cm), unclear if iplsateral lung metastatic disease), PD-L1 0%, s/p right lower lobectomy on 11/15/2023 which was primarily abscess with pT1c lesion and no positive lymph nodes, adjuvant chemo was not indicated, s/p SBRT to RUL lesion on 02/01/2024, no evidence of recurrent disease, follows with Dr. Cantu - he presented with elevated HR in 170s in SVT at his PCPs office visit. - he was given Adenosine by EMS and converted. - he reported chronic shortness of breath and cough which has worsened and he is bringing up clear-yellow sputum. - he denied fevers, chills, chest pain, palpitations, abdominal pain, nausea/vomiting, diarrhea, dysuria or leg swelling. - he was hypotensive (BP 83/55) and in A flutter with RVR which resolved with IV Metoprolol in the ED. - labs significant for Mg 1.6, procalcitonin 0.21, lactate 2.0, HS HARIKA 39 -> 35 -> 39, WBC 12.07, ANC 9.89, Hgb 11.8, Plt 448. - Blood cultures showed NG x 5 days - COVID/Flu/RSV negative - CTA chest was negative for PE but showed thick-walled right upper lobe cavitary mass is noted with an associated air-fluid level (this may be an infectious/inflammatory process as it was not present on the exam from 05/08/2024), malignancy is not excluded; mediastinal lymphadenopathy may be reactive. - appreciate ID, Pulmonary and Cardiology consults and recommendations - sputum culture on 10/25/2024 showed E coli - s/p Bronchoscopy at [facility] main on 10/29/2024 which showed few E coli; awaiting cytology results - IV antibiotics per ID recs - urine legionella negative - HIV negative - mycoplasma negative - MRSA nasal swab negative - leucocytosis up to WBC 19.10, now resolved (WBC 10.40) - Hgb improving to 100.6 - check anemia labs (Vit B12, folate, iron studies) - check occult stool - per Dr. Cantu's review of bronch, there appears to be a lesion which was biopsied and prelim showed NSCLC. - plan for PET/CT in 2-3 weeks - plan for patient to follow up with Dr. Charles ~1 week after PET-CT - continue supportive care Thank you for involving us in this patient's care. We will continue to follow. If there are any urgent needs please call the attending auctioneer art. SIGNATURE: Radha García APRN.CNP PATIENT NAME: Stevie Angeles DATE: October 31, 2024 TIME: 11:27 AM [1] Social History Tobacco Use Smoking status: Former Current packs/day: 0.00 Average packs/day: 1 pack/day for 40.0 years (40.0 ttl pk-yrs) Types: Cigarettes Start date: 07/1981 Quit date: 07/2021 Years since quittin.2 Passive exposure: Past Smokeless tobacco: Never Vaping Use Vaping status: Never Used Substance Use Topics Alcohol use: Not Currently Alcohol/week: 6.0 standard drinks of alcohol Types: 6 Glasses of wine per week Drug use: No [2] lisinopril-hydroCHLOROthiazide (ZESTORETIC) 20-12.5 mg per tablet, Take 1 tablet by mouth once daily., Disp: 90 tablet, Rfl: 3, 10/23/2024 Evening atorvastatin (LIPITOR) 20 mg tablet, Take 1 tablet by mouth once daily., Disp: 90 tablet, Rfl: 3, 10/23/2024 Evening [] senna-docusate (SENNA WITH DOCUSATE SODIUM) 8.6-50 mg per tablet, Take 1 tablet by mouth two times a day., Disp: 60 tablet, Rfl: 0, 10/23/2024 Evening fluticasone-salmeterol (WIXELA INHUB) 250-50 mcg/dose inhaler, Inhale 1 puff as instructed two times a day., Disp: 120 each, Rfl: 5, 10/24/2024 Morning gabapentin (NEURONTIN) 300 mg capsule, TAKE 2 CAPSULES BY MOUTH 3 TIMES A DAY, Disp: 540 capsule, Rfl: 3, 10/24/2024 Evening albuterol HFA (PROVENTIL HFA, VENTOLIN HFA) 90 mcg/actuation inhaler, Inhale 2 puffs as instructed every 4 hours as needed. (Patient not taking: Reported on 10/24/2024), Disp: 1 each, Rfl: 3 PROGRESS Observed: 10/31/2024 9:28 AM Status: COMPLETED Source: [facility] HNO ID: [id number] Author: HAILE ALFARO JR, MD Service: Critical Care Author Type: Physician Type: Progress Notes Filed: 10/31/2024 12:54 Note Text: PULM / CRITICAL CARE PROGRESS NOTE SERVICE DATE: October 31, 2024 SERVICE TIME: 9:28 AM Admission Date: 10/24/2024 AGE: [age] year old LOS: 7 days Subjective Cc: infection, possible recurrent cancer Less sputum Feels a little better Objective PROBLEMS: ACTIVE PROBLEM LIST Glucose Intolerance (Impaired Glucose Tolerance) Primary Hypertension Mixed Hyperlipidemia Cigarette Nicotine 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 Paresthesias Lumbosacral Neuritis Infrarenal Abdominal Aortic Aneurysm (Aaa) Without Rupture Hdl Deficiency Prostate Cancer (Hcc) Paroxysmal Atrial Fibrillation (Hcc) Cancer of Lower Lobe of Right Lung (Hcc) Postoperative Pain Stage 1 Mild Copd By Gold Classification (Hcc) Lung Abscess (Hcc) Pleural Effusion, Left Bronchopleural Fistula (Hcc) Pneumothorax Hearing Loss Cavitary Lesion of Lung Anemia Sepsis (Hcc) Malignant Neoplasm of Upper Lobe of Right Lung (Hcc) S/P Lobectomy of Lung Thoracic Lymphadenopathy Ex-Smoker PAST MEDICAL HISTORY Diagnosis Date Abdominal aortic aneurysm without rupture Elevated PSA Hearing loss HTN (hypertension) Lumbosacral neuritis Malignant neoplasm of prostate (HCC) Other and unspecified hyperlipidemia Prostate cancer (HCC) 2020 xrt at [facility] Rl Smoker former quit 2021 Spinal stenosis of lumbar region with neurogenic claudication PAST SURGICAL HISTORY Procedure Laterality Date COLONOSCOPY 05/28/2008 HERNIA REPAIR HX age 20 PROSTATE BIOPSY HX 2020 REMOVAL OF LUNG,LOBECTOMY Right 11/15/2023 Robotic-assisted right lower lobectomy with right lower lobe bronchoplasty closure of airway and mediastinal and hilar lymph node dissection, intercostal and phrenic nerve block SOCIAL HISTORY[1] VITAL SIGNS (last 24hrs min/max): Temp Av.7 ?C (98 ?F) Min: 36.4 ?C (97.5 ?F) Max: 36.8 ?C (98.2 ?F) Pulse Av.9 Min: 61 Max: 77 No data recorded Cuff BP Min: 95/61 Max: 116/71 Pain Level: 0 Vital signs reviewed. BP 106/60 Pulse 65 Temp (Src) 97.3 (Temporal) Resp 18 Ht 5' 10 (1.78m) Wt 162 lb 0.6 oz (73.5kg) SpO2 93% BMI 23.25 kg/(m2). O2 Therapy: Nasal Cannula, Liters (Numeric Only): 1 Temp (24hrs), Av.8 ?C (98.3 ?F), Min:36.3 ?C (97.3 ?F), Max:37.2 ?C (99 ?F) NET FLUID BALANCE Intake/Output Summary (Last 24 hours) at 10/31/2024 0937 Last data filed at 10/31/2024 0538 Gross per 24 hour Intake 656.2 ml Output 600 ml Net 56.2 ml MEDICATIONS Current Facility-Administered Medications Medication Dose Route Frequency acetaminophen 650 mg tab(s) (TYLENOL) 650 mg ORAL q 8 H metoprolol succinate ER 25 mg tab(s) (TOPROL XL) 25 mg ORAL DAILY NaCl 0.9% iv flush bag 20 mL INTRAVENOUS PRN piperacillin-tazobactam iv piggyback 3.375 g in dextrose (iso-osmotic) 50 mL (ZOSYN) 3.375 g INTRAVENOUS q 6 H guaiFENesin 600 mg ER tab(s) (MUCINEX) 600 mg ORAL q 12 H albuterol 2.5 mg /3 mL (0.083 %) 2.5 mg (PROVENTIL) 2.5 mg INHALATION QID budesonide 0.5 mg/2 mL 0.5 mg (PULMICORT) 0.5 mg INHALATION BID gabapentin 600 mg cap(s) (NEURONTIN) 600 mg ORAL TID Lines, Drains, and Airways Line Duration Peripheral 10/27/24 0508 Left Wrist 22 Gauge 4 days Drain Duration External Collection Device 10/24/24 2300 6 days PHYSICAL EXAM PERFORMED: General: no distress ENT: OP clear Cardiovascular: Regular Respiratory: Rare rhonchi Abdomen: Soft and Nontender Extremities: Edema- No Neurologic: Awake, oriented, Alert, Follows commands, and Moving all extremities Respiratory/Nursing Documentation: O2 Therapy: Nasal Cannula (10/31/24 0829) HEMODYNAMIC DATA: Reviewed DATA: Diagnostic tests reviewed for today's visit, films/specimens were personally reviewed by me: Most recent labs and imaging results. LABS: Recent Labs 10/28/24 1427 10/28/24 0953 WBC -- 10.74 RBC -- 3.74* HB -- 11.6* HCT -- 35.4* MCV -- 94.7 PLT -- 394 GLUC -- 117* BUN -- 9 CREAT -- 0.78 NA -- 141 K -- 3.7 CHLOR -- 107 CO2 -- 24 CA -- 8.7 PTSEC 11.9 -- INR 1.1 -- MG -- 2.2 Bronchoscopy Rapid On-Site Evaluation (GWEN): Preliminary cytology of the lesion in the right lower lobe was suggestive of non small cell carcinoma Impression: - Right upper lobe cavitary mass - The airway examination was abnormal. -RLL endobronchial disease at stump -Purulent secretison from RUL - Lymph node sizing and sampling was performed. 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 - Transbronchial lung biopsies were performed. -Ablation performed over RLL endobronchial lesion Recommendation: Oncology consulation Some thickening of vocal cords noted. 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 and s/p ablation at stump per verbal report # hx prostate cancer s/p XRT # atrial fibrillation # AAA w/o repair or rupture # COPD # HTN # HPL MMP PLAN: Wean oxygen for sat > 90% Antibiotics per ID Await final pathology Follow up bronchoscopy culture data Hematology-Oncology consult ENT consult Mobilize, flutter - was out of bed for 90 minutes yesterday Discussed with staff/patient SIGNATURE: Haile Alfaro Jr, MD PATIENT NAME: Stevie Angeles DATE: October 31, 2024 TIME: 12:54 PM [1] Social History Tobacco Use Smoking status: Former Current packs/day: 0.00 Average packs/day: 1 pack/day for 40.0 years (40.0 ttl pk-yrs) Types: Cigarettes Start date: 07/1981 Quit date: 07/2021 Years since quittin.2 Passive exposure: Past Smokeless tobacco: Never Vaping Use Vaping status: Never Used Substance Use Topics Alcohol use: Not Currently Alcohol/week: 6.0 standard drinks of alcohol Types: 6 Glasses of wine per week Drug use: No CONSULT PROG Observed: 10/31/2024 7:42 AM Status: COMPLETED Source: [facility] ID: [id number] Author: KURT PEREIRA MD Service: Infectious Disease Author Type: Physician Type: Consult Progress Note Filed: 10/31/2024 20:46 Note Text: INFECTIOUS DISEASE PROGRESS NOTE Patient Name: Stevie Angeles INTERVAL HISTORY: Had BAL and cultures positive for E coli. Cough present. Feels tired. No fevers/ Shortness of Breath is better Patient Active Hospital Problem List: Paroxysmal atrial fibrillation (HCC) Date Noted: 09/11/2023 Mixed hyperlipidemia Date Noted: 06/23/2010 Infrarenal abdominal aortic aneurysm (AAA) without rupture Date Noted: 02/08/2021 Prostate cancer (HCC) Date Noted: 09/11/2023 Cancer of lower lobe of right lung (HCC) Date Noted: 11/15/2023 Stage 1 mild COPD by GOLD classification (HCC) Date Noted: 11/17/2023 Lung abscess (HCC) Date Noted: 11/17/2023 Cavitary lesion of lung Date Noted: 10/24/2024 Anemia Date Noted: 10/24/2024 Sepsis (HCC) Date Noted: 10/25/2024 Malignant neoplasm of upper lobe of right lung (HCC) Date Noted: 10/25/2024 S/P lobectomy of lung Date Noted: 10/25/2024 Thoracic lymphadenopathy Date Noted: 10/25/2024 Ex-smoker Date Noted: 10/25/2024 ASSESSMENT: Stevie Angeles is a 74 year old male with tachycardia and leukocytosis, CT of the chest revealed thick-walled right upper lobe cavitary mass is noted with an associated air-fluid level. Differential includes primary lung abscess, could potentially be from aspiration and poor dentition versus malignancy. Plan: BAL cultures w E coli Suspect superinfected cavitary mass which could have been malignant. Plan on performing bronchoscopy/EBUS at [facility] on 10/29. Will continue with empiric piperacillin tazobactam and can stop vancomycin Follow-up on bronchial cultures and pathology from bronchoscopy. Will follow-up on sputum culture collected today. For now pending Legionella and Streptococcus pneumonia urine antigen, pending mycoplasma pneumonia PCR on sputum. NR HIV 1/2 and pending TB QuantiFERON gold. CoPAT anticipated on discharge x 4-6 weeks w follow up imaging in 4 weeks I have reviewed and interpreted all lab test imaging studies and documentations from other healthcare providers I am monitoring antibiotics for side effects and toxicity MEDICATIONS: reviewed. Current Facility-Administered Medications Medication Dose Route Frequency NaCl 0.9% iv flush bag 20 mL INTRAVENOUS PRN piperacillin-tazobactam iv piggyback 3.375 g in dextrose (iso-osmotic) 50 mL (ZOSYN) 3.375 g INTRAVENOUS q 6 H guaiFENesin 600 mg ER tab(s) (MUCINEX) 600 mg ORAL q 12 H albuterol 2.5 mg /3 mL (0.083 %) 2.5 mg (PROVENTIL) 2.5 mg INHALATION QID budesonide 0.5 mg/2 mL 0.5 mg (PULMICORT) 0.5 mg INHALATION BID gabapentin 600 mg cap(s) (NEURONTIN) 600 mg ORAL TID metoprolol succinate ER 25 mg tab(s) (TOPROL XL) 25 mg ORAL DAILY acetaminophen 650 mg tab(s) (TYLENOL) 650 mg ORAL q 8 H PHYSICAL EXAM: Vital signs: BP 102/63 Pulse 69 Temp 36.5 ?C (97.7 ?F) (Oral) Resp 18 Ht 177.8 cm (5' 10) Wt 73.5 kg (162 lb 0.6 oz) SpO2 97% BMI 23.25 kg/m? Temp (24hrs), Av.6 ?C (97.9 ?F), Min:36.3 ?C (97.3 ?F), Max:37.2 ?C (99 ?F) General: alert, oriented, NAD Lungs: bilaterally clear to auscultation Heart: regular rate and rhythm Abdomen: soft, non tender, non distended, BS+ Extremities: no edema No rashes No joint inflammation Neck supple Lines ok No CVAT Lines, Drains, and Airways Line Duration Peripheral 10/27/24 0508 Left Wrist 22 Gauge 4 days Drain Duration External Collection Device 10/24/24 2300 6 days Labs: reviewed Microbiology data: reviewed Imaging data: reviewed Kurt Pereira MD [phone] 10/31/2024 7:53 AM THERAPY NT Observed: 10/30/2024 2:55 PM Status: COMPLETED Source: [facility] HNO ID: [id number] Author: ALEX MAJOR OTR/Umberto Service: Occupational Therapy Author Type: Occupational Therapist Type: Therapy (PT/OT/Speech/Resp) Filed: 10/30/2024 16:08 Note Text: Summary: OT eval Occupational Therapy Evaluation Summary SERVICE DATE: 10/30/2024 SERVICE TIME: 1455 to 1522 ROOM: [id number] OT 6 Clicks Score: 19 DISCHARGE RECOMMENDATIONS Subacute/SNF Recommended Discharge Disposition Due to: Functional deficits requiring ongoing therapy service prior to discharge home., Patient requires daily (5x/week) skilled therapy at next level of care., ADL impairment, Anticipated community discharge, Functional status decline, Requires multiple therapy disciplines Anticipated Discharge Needs: Physical Assist at Home, Supervision at Home Physical Assist at Home for: Ambulation, Cleaning, Laundry, Stairs, Safety, Meals, Self Care, Shopping, Transportation Supervision at Home due to: Other: See Comment (for safety) ASSESSMENT Response to Therapy Interventions: Good Participation in Activities PRECAUTIONS Fall Risk, Lines/Tubes/Drains CURRENT HOSPITAL COURSE Admitted SVT/A-fib, Right upper lobe cavity mass, pulmonology consulted, plan for bronchoscopy and biopsy at 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, spinal stenosis, and hearing loss HOME LIVING Patient Lives With: Self/Alone Assistance Available: PRN (sister stops by, and son on occasion but he works a lot) Entry To Home: Stairs Number Of Stairs Into Home: 3 Number Of Stairs To Bed/Bath: one story home Tub/Shower Type: walk in shower Laundry: basement patient completes Equipment Owned: Other: See Comment (none) PRIOR FUNCTIONAL LEVEL Within Functional Limits Patient reports independent with bathing and dressing, no device for functional mobility, + driving SUBJECTIVE Patient supine in bed EKWOK agreeable to OT COGNITION Responsiveness: Alert, Awake Follows Commands: Cueing Needed Cueing to Follow Commands: Minimum THERAPY DIAGNOSIS Reduced mobility-other, Decreased activities of daily living (ADL), Muscle Weakness (generalized), General symptoms and signs-other TREATMENT INTERVENTIONS Evaluation, Self Correction Management (61793) Timed Code Treatment (minutes): 12 Skilled Treatment Time (minutes): 27 TRAINING AND EDUCATION PROVIDED Benefits of In-Hospital Mobility, Discharge Planning, Functional Mobility Involving ADLs, Grooming Tasks, Role of Occupational Therapy, Safety/Judgment, Transfer - Bed to Chair, Transfer - Sit to Stand THERAPEUTIC SKILLS USED Activity Dosing, Assessment of Tolerance Including Vitals Response to Activity, Cues for Sequencing/Proper Technique for Activity, Cuing Tactile, Cuing Verbal, Physical Assist, Therapeutic Use of Self FUNCTIONAL STATUS Activities of Daily Living Assist Level Additional Information Feeding Independent Grooming Minimal Assistance, Additional Information washed hands and face with set up in bedside chair and brushed hair, increased assist anticipated up at sink Bathing Upper Body Contact Guard Assistance, Additional Information per clinical judgement Bathing Lower Body Minimal Assistance, Additional Information per clinical judgement seated Dressing Upper Body Contact Guard Assistance, Additional Information seated Dressing Lower Body Minimal Assistance Toileting Minimal Assistance, Additional Information per clinical judgement currently has external catheter Mobility Assist Level Additional Information Bed Mobility Supine To Sit: Contact Guard Assistance, Additional Information HOB elevated Sit to Stand Minimal Assistance, Additional Information EOB to walker Stand to Sit Minimal Assistance, Additional Information cues to reach back to control descent Bed to Chair Minimal Assistance Bed To Chair Transfer Type: Stepping Bed To Chair Transfer Equipment: Wheeled Walker, Gait Belt Toilet/Commode Shower Functional Mobility Minimal Assistance, Additional Information Functional Mobility Device: Hand Held Assist, Other: See Comment (gait belt) Patient requested hand held however may benefit from wheeled walker GOALS Patient will demonstrate progress to optimize self-care activities, cognitive and/or coping to maximize function upon discharge. Rehab Potential: Good Good Rehab Potential Due To: Current objective clinical presentation, Good motivation Progress Toward Goals: Progressing as expected ACUTE CARE TREATMENT PLAN OT Frequency: 3 Times Per Week Treatment Interventions: Education, Self Care/Home Management, Strengthening, Functional Mobility Training, Balance Training Plan for Next Visit: Continue per POC SIGNATURE: LEODAN Desir/L PATIENT NAME: Stevie Angeles DATE: October 30, 2024 TIME: 4:07 PM PROGRESS Observed: 10/30/2024 1:27 PM Status: COMPLETED Source: [facility] HNO ID: [id number] Author: SYED LEI MD Service: Hospital Medicine Author Type: Physician Type: Progress Notes Filed: 10/30/2024 13:29 Note Text: DEPARTMENT OF HOSPITAL MEDICINE PROGRESS NOTE SERVICE DATE: 10/30/2024 SERVICE TIME: 1:27 PM Hospital Medicine/Primary Attending: Syed Lei,* NIGHT AND WEEKEND COVERAGE: [place] COVERAGE: Days: [phone], please page attending physician. Nights: [phone], please page [place] [facility] Night coverage pager [phone]. Subjective INTERVAL HPI: Seen and examined, patient was resting. Patient very hard of hearing. Communicated via writing on board. No new complaints. No overnight events Denies nausea, vomiting, abdominal pain chest pain. Current Facility-Administered Medications Medication Dose Route Frequency NaCl 0.9% iv flush bag 20 mL INTRAVENOUS PRN piperacillin-tazobactam iv piggyback 3.375 g in dextrose (iso-osmotic) 50 mL (ZOSYN) 3.375 g INTRAVENOUS q 6 H atorvastatin 20 mg tab(s) (LIPITOR) 20 mg ORAL AT BEDTIME acetaminophen 650 mg tab(s) (TYLENOL) 650 mg ORAL q 6 H PRN guaiFENesin 600 mg ER tab(s) (MUCINEX) 600 mg ORAL q 12 H albuterol 2.5 mg /3 mL (0.083 %) 2.5 mg (PROVENTIL) 2.5 mg INHALATION QID budesonide 0.5 mg/2 mL 0.5 mg (PULMICORT) 0.5 mg INHALATION BID gabapentin 600 mg cap(s) (NEURONTIN) 600 mg ORAL TID metoprolol succinate ER 25 mg tab(s) (TOPROL XL) 25 mg ORAL DAILY Objective PHYSICAL EXAM: BP 116/71 Pulse 69 Temp (Src) 98 (Oral) Resp 18 Ht 5' 10 (1.78m) Wt 162 lb 0.6 oz (73.5kg) SpO2 97% BMI 23.25 kg/(m2). O2 Therapy: Nasal Cannula, Liters (Numeric Only): 1 Physical Exam Performed Alert Very very hard of hearing CV RRR Lungs clear anteriorly Abdomen soft No lower extremity edema Lines, Drains, and Airways Line Duration Peripheral 10/27/24 0508 Left Wrist 22 Gauge 3 days Drain Duration External Collection Device 10/24/24 2300 5 days Reviewed lines and needs to be continued: REASONS: Intravenous antibiotics DATA: Diagnostic tests reviewed for today's visit: Most recent imaging CBC, Coags, BMP, Mg, Phos Recent Labs 10/28/24 1427 10/28/24 0953 WBC -- 10.74 HB -- 11.6* HCT -- 35.4* PLT -- 394 INR 1.1 -- NA -- 141 K -- 3.7 CHLOR -- 107 CO2 -- 24 BUN -- 9 CREAT -- 0.78 GLUC -- 117* CA -- 8.7 MG -- 2.2 Liver Function, Amylase, AND Lipase HOSPITAL COURSE: Stevie Angeles is a 74 year old male presented with past medical history of AAA, A-fib (postop in October 2023, not on anticoagulant), COPD, hypertension, right lower lung cancer SP RLL lobectomy in October 2023, prostate cancer SP XRT, presented to ED on 10/24/2024 with elevated heart rate. Patient was at his PCP office for follow-up visit, he noted to have elevated heart rate 170, patient reported shortness of breath. He also reports chronic cough noticed in the worsening of cough and productive of sputum. Patient developed A-fib RVR in October 2023 after right lower Lobectomy. In ED BP 83/55, elevated heart rate. Patient was in SVT, he was given adenosine, converted to A-fib and then to sinus rhythm. WBC 12.07, hemoglobin 11.8, platelets 448. Magnesium 1.6 rest of BMP unremarkable. Troponin 39, then 35 and 39. CTA chest, thick-walled right upper lobe cavity mass is noted with an associated air-fluid level. May be infectious/inflammatory process. Malignancy not excluded. Mediastinal lymphadenopathy. He received 612 mg of adenosine by EMS. In ED patient was given gabapentin, IV Lopressor, p.o. Lopressor. He was given 1 L normal saline bolus, IV vancomycin and Zosyn. Patient admitted to telemetry for SVT in setting of paroxysmal A-fib. Patient converted to A-fib After receiving adenosine and then converted to sinus rhythm after receiving IV Lopressor and p.o. Lopressor. Right upper lobe cavity mass, pulmonology consulted, plan for bronchoscopy and biopsy at [facility]. Patient was also evaluated by cardiology for SVT. Metoprolol dose was increased to 25 mg twice daily. Patient was continued on IV vancomycin and Zosyn. Evaluated by pulmonary and ID. 10/25/2024 overnight patient developed hypotension, 500 cc of normal saline bolus given. Assessment AND Plan Paroxysmal atrial fibrillation (HCC) Present on Admission: Yes HR of 170s at PCP office, given 6 AND 12 mg of Adenosine by EMS for possible SVT Converted to NSR after IV and PO Lopressor HsT 39, 35, 39 H/o post-op afib, not on rate controlling meds or AC Cardiology consulted, started on metoprolol. Anticoagulant contraindicated due to increased bleeding risk. Discontinue Lovenox Echo, LV normal size, EF 55%. LV diastolic function was not evaluated due to A-fib. Right ventricle normal size, right ventricular systolic function normal. Left atrial cavity mildly dilated. No significant valvular abnormalities. Visualized aorta dilated maximal dimension 4.5 cm. 1+ tricuspid regurgitation. Cancer of lower lobe of right lung (HCC) Present on Admission: Yes Cavitary lesion of lung Present on Admission: Yes H/o cancer of RLL s/p lobectomy in 10/2023, at that time appeared more abscess and chemotherapy was not recommended CTA chest shows thick-walled right upper lobe cavitary mass is noted with an associated air-fluid level. This may be an infectious/inflammatory process as it was not present on the exam from 05/08/2024. Malignancy is not excluded. Mediastinal lymphadenopathy may be reactive. WBC 12.07 w/LS, trended up to 19, now improved to 10.74. Blood cultures no growth. Sputum cultures growing E. coli. Urine Legionella negative, HIV negative, mycoplasma negative. MRSA nasal swab negative. Was on vancomycin and Zosyn, vancomycin stopped, Zosyn continued. Procalcitonin 0.21, MRSA not detected Pulmonary consult appreciated ID consulted Heme-onc follow-up outpatient Bronchoscopy at [facility] Completed. Cultures pending Anemia Present on Admission: Yes Hgb 11.8 on admit, baseline ~12-13 HANDH stable Mixed hyperlipidemia Present on Admission: Yes Cont statin Infrarenal abdominal aortic aneurysm (AAA) without rupture Present on Admission: Yes Stable Prostate cancer (HCC) Present on Admission: Yes S/p XRT Stage 1 mild COPD by GOLD classification (HCC) Present on Admission: Yes No s/s of exacerbation Cont home inhaler Lung abscess (HCC) Present on Admission: Yes Sepsis (HCC) Present on Admission: Yes Malignant neoplasm of upper lobe of right lung (HCC) Present on Admission: Yes S/P lobectomy of lung Present on Admission: Status not on file Thoracic lymphadenopathy Present on Admission: Status not on file Ex-smoker Present on Admission: Yes Medication and Non-Pharmacologic VTE Prophylaxis/Anticoagulants 10/24/24 3684 activity - mobilize patient (sd,oh) VTE Prophylaxis: VTE prophylaxis appropriate Disposition: To be determined Plan of care discussed with Provider, RN, Patient Plan communicated to: Patient SIGNATURE: Syed Lei MD, MD PATIENT NAME: Stevie Angeles DATE:10/30/24 TIME:1:29 PM PROGRESS Observed: 10/30/2024 10:03 AM Status: COMPLETED Source: [facility] HNO ID: [id number] Author: HAILE ALFARO JR, MD Service: Critical Care Author Type: Physician Type: Progress Notes Filed: 10/30/2024 15:07 Note Text: PULM / CRITICAL CARE PROGRESS NOTE SERVICE DATE: October 30, 2024 SERVICE TIME: 10:03 AM Admission Date: 10/24/2024 AGE: [age] year old LOS: 6 days Subjective Cc: infection, possible recurrent cancer Patient still with productive cough but no chest pain Improved dyspnea Objective PROBLEMS: ACTIVE PROBLEM LIST Glucose Intolerance (Impaired Glucose Tolerance) Primary Hypertension Mixed Hyperlipidemia Cigarette Nicotine 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 Paresthesias Lumbosacral Neuritis Infrarenal Abdominal Aortic Aneurysm (Aaa) Without Rupture Hdl Deficiency Prostate Cancer (Hcc) Paroxysmal Atrial Fibrillation (Hcc) Cancer of Lower Lobe of Right Lung (Hcc) Postoperative Pain Stage 1 Mild Copd By Gold Classification (Hcc) Lung Abscess (Hcc) Pleural Effusion, Left Bronchopleural Fistula (Hcc) Pneumothorax Hearing Loss Cavitary Lesion of Lung Anemia Sepsis (Hcc) Malignant Neoplasm of Upper Lobe of Right Lung (Hcc) S/P Lobectomy of Lung Thoracic Lymphadenopathy Ex-Smoker PAST MEDICAL HISTORY Diagnosis Date Abdominal aortic aneurysm without rupture Elevated PSA Hearing loss HTN (hypertension) Lumbosacral neuritis Malignant neoplasm of prostate (HCC) Other and unspecified hyperlipidemia Prostate cancer (HCC) 2020 xrt at [facility] [place] Smoker former quit 2021 Spinal stenosis of lumbar region with neurogenic claudication PAST SURGICAL HISTORY Procedure Laterality Date COLONOSCOPY 05/28/2008 HERNIA REPAIR HX age 20 PROSTATE BIOPSY HX 2020 REMOVAL OF LUNG,LOBECTOMY Right 11/15/2023 Robotic-assisted right lower lobectomy with right lower lobe bronchoplasty closure of airway and mediastinal and hilar lymph node dissection, intercostal and phrenic nerve block SOCIAL HISTORY[1] VITAL SIGNS (last 24hrs min/max): Temp Av.7 ?C (98 ?F) Min: 36.4 ?C (97.5 ?F) Max: 36.8 ?C (98.2 ?F) Pulse Av.9 Min: 61 Max: 77 No data recorded Cuff BP Min: 95/61 Max: 116/71 Pain Level: 0 Vital signs reviewed. BP 116/71 Pulse 69 Temp (Src) 98.2 (Oral) Resp 20 Ht 5' 10 (1.78m) Wt 162 lb 0.6 oz (73.5kg) SpO2 94% BMI 23.25 kg/(m2). O2 Therapy: Nasal Cannula, Liters (Numeric Only): 1 Temp (24hrs), Av.7 ?C (98 ?F), Min:36.4 ?C (97.5 ?F), Max:36.8 ?C (98.2 ?F) NET FLUID BALANCE Intake/Output Summary (Last 24 hours) at 10/30/2024 1003 Last data filed at 10/30/2024 0635 Gross per 24 hour Intake 1638 ml Output 650 ml Net 988 ml MEDICATIONS Current Facility-Administered Medications Medication Dose Route Frequency metoprolol succinate ER 25 mg tab(s) (TOPROL XL) 25 mg ORAL DAILY NaCl 0.9% iv flush bag 20 mL INTRAVENOUS PRN piperacillin-tazobactam iv piggyback 3.375 g in dextrose (iso-osmotic) 50 mL (ZOSYN) 3.375 g INTRAVENOUS q 6 H atorvastatin 20 mg tab(s) (LIPITOR) 20 mg ORAL AT BEDTIME acetaminophen 650 mg tab(s) (TYLENOL) 650 mg ORAL q 6 H PRN guaiFENesin 600 mg ER tab(s) (MUCINEX) 600 mg ORAL q 12 H albuterol 2.5 mg /3 mL (0.083 %) 2.5 mg (PROVENTIL) 2.5 mg INHALATION QID budesonide 0.5 mg/2 mL 0.5 mg (PULMICORT) 0.5 mg INHALATION BID gabapentin 600 mg cap(s) (NEURONTIN) 600 mg ORAL TID Lines, Drains, and Airways Line Duration Peripheral 10/27/24 0508 Left Wrist 22 Gauge 3 days Drain Duration External Collection Device 10/24/24 2300 5 days PHYSICAL EXAM PERFORMED: General: no distress ENT: OP clear Cardiovascular: Regular rhythm Respiratory: Wheezes bilat - faint - crackles on R with decreased aeration at RIGHT base Abdomen: Soft and Nontender Extremities: Edema- No Neurologic: Awake, oriented, Alert, Follows commands, and Moving all extremities Respiratory/Nursing Documentation: O2 Therapy: Nasal Cannula (10/30/24 0830) HEMODYNAMIC DATA: Reviewed DATA: Diagnostic tests reviewed for today's visit, films/specimens were personally reviewed by me: Most recent labs and imaging results. LABS: Recent Labs 10/28/24 1427 10/28/24 0953 WBC -- 10.74 RBC -- 3.74* HB -- 11.6* HCT -- 35.4* MCV -- 94.7 PLT -- 394 GLUC -- 117* BUN -- 9 CREAT -- 0.78 NA -- 141 K -- 3.7 CHLOR -- 107 CO2 -- 24 CA -- 8.7 PTSEC 11.9 -- INR 1.1 -- MG -- 2.2 ABG: Invalid input(s): [id number] Assessment/Plan ICU Checklist A= Assess, Prevent, Manage Pain C= Choice of Sedation and Analgesia B= Both Spontaneous Awakening and Breathing Trials D= Delirium: Assess, Prevent and Manage E= Early Mobility/Excercise ICU Mobility: F= Family Engagement and Empowerment ICU Disposition: Prevention: VTE Prophylaxis: Bronchoscopy Rapid On-Site Evaluation (GWEN): Preliminary cytology of the lesion in the right lower lobe was suggestive of non small cell carcinoma Impression: - Right upper lobe cavitary mass - The airway examination was abnormal. -RLL endobronchial disease at stump -Purulent secretison from RUL - Lymph node sizing and sampling was performed. 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 - Transbronchial lung biopsies were performed. -Ablation performed over RLL endobronchial lesion Recommendation: Oncology consulation Some thickening of vocal cords noted. 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 and s/p ablation at stump per verbal report # hx prostate cancer s/p XRT # atrial fibrillation # AAA w/o repair or rupture # COPD # HTN # HPL MMP CRITICAL CARE PLAN: Antibiotics per ID Await final pathology Follow up bronchoscopy culture data Hematology-Oncology consult ENT consult Mobilize, flutter Discussed with staff/patient SIGNATURE: Haile Alfaro Jr, MD PATIENT NAME: Stevie Angeles DATE: October 30, 2024 TIME: 3:07 PM [1] Social History Tobacco Use Smoking status: Former Current packs/day: 0.00 Average packs/day: 1 pack/day for 40.0 years (40.0 ttl pk-yrs) Types: Cigarettes Start date: 07/1981 Quit date: 07/2021 Years since quittin.2 Passive exposure: Past Smokeless tobacco: Never Vaping Use Vaping status: Never Used Substance Use Topics Alcohol use: Not Currently Alcohol/week: 6.0 standard drinks of alcohol Types: 6 Glasses of wine per week Drug use: No CONSULT PROG Observed: 10/30/2024 7:19 AM Status: COMPLETED Source: [facility] ID: [id number] Author: KURT PEREIRA MD Service: Infectious Disease Author Type: Physician Type: Consult Progress Note Filed: 10/30/2024 22:20 Note Text: INFECTIOUS DISEASE PROGRESS NOTE Patient Name: Stevie Angeles INTERVAL HISTORY: Had BAL yesterday. Cough present. Feels tired. No fevers/ Shortness of Breath is better Patient Active Hospital Problem List: Paroxysmal atrial fibrillation (HCC) Date Noted: 09/11/2023 Mixed hyperlipidemia Date Noted: 06/23/2010 Infrarenal abdominal aortic aneurysm (AAA) without rupture Date Noted: 02/08/2021 Prostate cancer (HCC) Date Noted: 09/11/2023 Cancer of lower lobe of right lung (HCC) Date Noted: 11/15/2023 Stage 1 mild COPD by GOLD classification (HCC) Date Noted: 11/17/2023 Lung abscess (HCC) Date Noted: 11/17/2023 Cavitary lesion of lung Date Noted: 10/24/2024 Anemia Date Noted: 10/24/2024 Sepsis (HCC) Date Noted: 10/25/2024 Malignant neoplasm of upper lobe of right lung (HCC) Date Noted: 10/25/2024 S/P lobectomy of lung Date Noted: 10/25/2024 Thoracic lymphadenopathy Date Noted: 10/25/2024 Ex-smoker Date Noted: 10/25/2024 ASSESSMENT: Stevie Angeles is a 74 year old male with tachycardia and leukocytosis, CT of the chest revealed thick-walled right upper lobe cavitary mass is noted with an associated air-fluid level. Differential includes primary lung abscess, could potentially be from aspiration and poor dentition versus malignancy. Plan: Suspect superinfected cavitary mass which could have been malignant. Plan on performing bronchoscopy/EBUS at [facility] on 10/29. Will continue with empiric piperacillin tazobactam and can stop vancomycin Follow-up on bronchial cultures and pathology from bronchoscopy. Will follow-up on sputum culture collected today. For now pending Legionella and Streptococcus pneumonia urine antigen, pending mycoplasma pneumonia PCR on sputum. NR HIV 1/2 and pending TB QuantiFERON gold. I have reviewed and interpreted all lab test imaging studies and documentations from other healthcare providers I am monitoring antibiotics for side effects and toxicity MEDICATIONS: reviewed. Current Facility-Administered Medications Medication Dose Route Frequency NaCl 0.9% iv flush bag 20 mL INTRAVENOUS PRN piperacillin-tazobactam iv piggyback 3.375 g in dextrose (iso-osmotic) 50 mL (ZOSYN) 3.375 g INTRAVENOUS q 6 H atorvastatin 20 mg tab(s) (LIPITOR) 20 mg ORAL AT BEDTIME acetaminophen 650 mg tab(s) (TYLENOL) 650 mg ORAL q 6 H PRN guaiFENesin 600 mg ER tab(s) (MUCINEX) 600 mg ORAL q 12 H albuterol 2.5 mg /3 mL (0.083 %) 2.5 mg (PROVENTIL) 2.5 mg INHALATION QID budesonide 0.5 mg/2 mL 0.5 mg (PULMICORT) 0.5 mg INHALATION BID gabapentin 600 mg cap(s) (NEURONTIN) 600 mg ORAL TID metoprolol succinate ER 25 mg tab(s) (TOPROL XL) 25 mg ORAL DAILY PHYSICAL EXAM: Vital signs: BP 116/71 Pulse 63 Temp 37.2 ?C (98.9 ?F) Resp 16 Ht 177.8 cm (5' 10) Wt 73.5 kg (162 lb 0.6 oz) SpO2 97% BMI 23.25 kg/m? Temp (24hrs), Av.7 ?C (98.1 ?F), Min:36.6 ?C (97.8 ?F), Max:36.8 ?C (98.3 ?F) General: alert, oriented, NAD Lungs: bilaterally clear to auscultation Heart: regular rate and rhythm Abdomen: soft, non tender, non distended, BS+ Extremities: no edema No rashes No joint inflammation Neck supple Lines ok No CVAT Lines, Drains, and Airways Line Duration Peripheral 10/27/24 0508 Left Wrist 22 Gauge 3 days Drain Duration External Collection Device 10/24/24 2300 5 days Labs: Recent Labs 10/28/24 1427 10/28/24 0953 WBC -- 10.74 HB -- 11.6* PLT -- 394 INR 1.1 -- NA -- 141 K -- 3.7 CO2 -- 24 BUN -- 9 CREAT -- 0.78 VANCORA -- 11.9 Microbiology data: reviewed Imaging data: reviewed Kurt Pereira MD [phone] 10/30/2024 7:53 AM ALLIED HEALTH Observed: 10/29/2024 4:00 PM Status: COMPLETED Source: [facility] ID: [id number] Author: JAQUAN HOLLAND RT(R) Service: Radiology Author Type: Technologist Type: Allied Health Filed: 11/04/2024 15:42 Note Text: Radiology Service Progress Note PATIENT NAME: Stevie Angeles DATE OF SERVICE: November 04, 2024 TIME: 3:42 PM PATIENT IDENTITY VERIFICATION COMPLETED USING TWO (2) IDENTIFIERS: Name and Date of confirmed by identification band. FALL SCREENING: Has the patient had 2 falls in the last year or 1 fall with injury or currently using an Ambulatory Assistive Device (Walker, Cane, Wheelchair, Crutches, etc.)? Inpatient: Screened on floor PATIENT GENDER DATA: Assigned male at PATIENT RELEVANT IMPLANT DATA REVIEWED: Not Applicable PATIENT PRESENTS WITH AN IMPLANTABLE OR ATTACHED PAUNCH TRIMMER: No RADIOLOGY DEPARTMENT: General X-ray: Exam(s) Completed: Chest X-Ray PERIPHERAL IV DATA: Not applicable SIGNED BY: RT Kamar(R) November 04, 2024 3:42 PM PROGRESS Observed: 10/29/2024 3:05 PM Status: COMPLETED Source: [facility] ID: [id number] Author: SYED LEI MD Service: Hospital Medicine Author Type: Physician Type: Progress Notes Filed: 10/29/2024 15:06 Note Text: DEPARTMENT OF HOSPITAL MEDICINE PROGRESS NOTE SERVICE DATE: 10/29/2024 SERVICE TIME: 3:05 PM Hospital Medicine/Primary Attending: Syed Lei,* NIGHT AND WEEKEND COVERAGE: [place] COVERAGE: Days: [phone], please page attending physician. Nights: [phone], please page [place] [facility] Night coverage pager [phone]. Subjective INTERVAL HPI: Seen and examined, patient was resting. Patient very hard of hearing. Communicated via writing on board. No new complaints. Denies nausea, vomiting, abdominal pain chest pain. Patient to go to [facility] for bronchoscopy and to come back. Current Facility-Administered Medications Medication Dose Route Frequency [Held on Transfer - Suspended Admission] NaCl 0.9% iv flush bag 20 mL INTRAVENOUS PRN [Held on Transfer - Suspended Admission] piperacillin-tazobactam iv piggyback 3.375 g in dextrose (iso-osmotic) 50 mL (ZOSYN) 3.375 g INTRAVENOUS q 6 H [Held on Transfer - Suspended Admission] atorvastatin 20 mg tab(s) (LIPITOR) 20 mg ORAL AT BEDTIME [Held on Transfer - Suspended Admission] acetaminophen 650 mg tab(s) (TYLENOL) 650 mg ORAL q 6 H PRN [Held on Transfer - Suspended Admission] guaiFENesin 600 mg ER tab(s) (MUCINEX) 600 mg ORAL q 12 H [Held on Transfer - Suspended Admission] albuterol 2.5 mg /3 mL (0.083 %) 2.5 mg (PROVENTIL) 2.5 mg INHALATION QID [Held on Transfer - Suspended Admission] budesonide 0.5 mg/2 mL 0.5 mg (PULMICORT) 0.5 mg INHALATION BID [Held on Transfer - Suspended Admission] gabapentin 600 mg cap(s) (NEURONTIN) 600 mg ORAL TID [Held on Transfer - Suspended Admission] metoprolol succinate ER 25 mg tab(s) (TOPROL XL) 25 mg ORAL DAILY Facility-Administered Medications Ordered in Other Encounters Medication Dose Route Frequency albuterol 2.5 mg /3 mL (0.083 %) 2.5 mg (PROVENTIL) 2.5 mg INHALATION PRN ipratropium 0.02 % 0.5 mg (ATROVENT) 0.5 mg INHALATION ONCE Objective PHYSICAL EXAM: BP 114/69 Pulse 68 Temp (Src) 97.9 (Oral) Resp 18 Ht 5' 10 (1.78m) Wt 162 lb 0.6 oz (73.5kg) SpO2 94% BMI 23.25 kg/(m2). O2 Therapy: Room Air Physical Exam Performed Alert Very very hard of hearing CV RRR Lungs scattered crackles, poor inspiratory effort Abdomen soft No lower extremity edema Lines, Drains, and Airways Line Duration Peripheral 10/27/24 0508 Left Wrist 22 Gauge 2 days Drain Duration External Collection Device 10/24/24 2300 4 days Reviewed lines and needs to be continued: REASONS: Intravenous antibiotics DATA: Diagnostic tests reviewed for today's visit: Most recent imaging CBC, Coags, BMP, Mg, Phos Recent Labs 10/28/24 1427 10/28/24 0953 10/27/24 0629 WBC -- 10.74 13.32* HB -- 11.6* 11.2* HCT -- 35.4* 34.5* PLT -- 394 391 INR 1.1 -- -- NA -- 141 134* K -- 3.7 3.7 CHLOR -- 107 103 CO2 -- 24 22 BUN -- 9 8* CREAT -- 0.78 0.54* GLUC -- 117* 136* CA -- 8.7 8.3* MG -- 2.2 2.1 Liver Function, Amylase, AND Lipase HOSPITAL COURSE: Stevie Angeles is a 74 year old male presented with past medical history of AAA, A-fib (postop in October 2023, not on anticoagulant), COPD, hypertension, right lower lung cancer SP RLL lobectomy in October 2023, prostate cancer SP XRT, presented to ED on 10/24/2024 with elevated heart rate. Patient was at his PCP office for follow-up visit, he noted to have elevated heart rate 170, patient reported shortness of breath. He also reports chronic cough noticed in the worsening of cough and productive of sputum. Patient developed A-fib RVR in October 2023 after right lower Lobectomy. In ED BP 83/55, elevated heart rate. Patient was in SVT, he was given adenosine, converted to A-fib and then to sinus rhythm. WBC 12.07, hemoglobin 11.8, platelets 448. Magnesium 1.6 rest of BMP unremarkable. Troponin 39, then 35 and 39. CTA chest, thick-walled right upper lobe cavity mass is noted with an associated air-fluid level. May be infectious/inflammatory process. Malignancy not excluded. Mediastinal lymphadenopathy. He received 612 mg of adenosine by EMS. In ED patient was given gabapentin, IV Lopressor, p.o. Lopressor. He was given 1 L normal saline bolus, IV vancomycin and Zosyn. Patient admitted to telemetry for SVT in setting of paroxysmal A-fib. Patient converted to A-fib After receiving adenosine and then converted to sinus rhythm after receiving IV Lopressor and p.o. Lopressor. Right upper lobe cavity mass, pulmonology consulted, plan for bronchoscopy and biopsy at [facility]. Patient was also evaluated by cardiology for SVT. Metoprolol dose was increased to 25 mg twice daily. Patient was continued on IV vancomycin and Zosyn. Evaluated by pulmonary and ID. 10/25/2024 overnight patient developed hypotension, 500 cc of normal saline bolus given. Assessment AND Plan Paroxysmal atrial fibrillation (HCC) Present on Admission: Yes HR of 170s at PCP office, given 6 AND 12 mg of Adenosine by EMS for possible SVT Converted to NSR after IV and PO Lopressor HsT 39, 35, 39 H/o post-op afib, not on rate controlling meds or AC Cardiology consulted, started on metoprolol. Anticoagulant contraindicated due to increased bleeding risk. Discontinue Lovenox Echo, LV normal size, EF 55%. LV diastolic function was not evaluated due to A-fib. Right ventricle normal size, right ventricular systolic function normal. Left atrial cavity mildly dilated. No significant valvular abnormalities. Visualized aorta dilated maximal dimension 4.5 cm. 1+ tricuspid regurgitation. Cancer of lower lobe of right lung (HCC) Present on Admission: Yes Cavitary lesion of lung Present on Admission: Yes H/o cancer of RLL s/p lobectomy in 10/2023, at that time appeared more abscess and chemotherapy was not recommended CTA chest shows thick-walled right upper lobe cavitary mass is noted with an associated air-fluid level. This may be an infectious/inflammatory process as it was not present on the exam from 05/08/2024. Malignancy is not excluded. Mediastinal lymphadenopathy may be reactive. WBC 12.07 w/LS, trended up to 19, now improved to 10.74. Blood cultures no growth. Sputum cultures growing E. coli. Urine Legionella negative, HIV negative, mycoplasma negative. MRSA nasal swab negative. Was on vancomycin and Zosyn, vancomycin stopped, Zosyn continued. Procalcitonin 0.21, MRSA not detected Pulmonary consult appreciated ID consulted Heme-onc follow-up outpatient Bronchoscopy at [facility] today Anemia Present on Admission: Yes Hgb 11.8 on admit, baseline ~12-13 HANDH stable Mixed hyperlipidemia Present on Admission: Yes Cont statin Infrarenal abdominal aortic aneurysm (AAA) without rupture Present on Admission: Yes Stable Prostate cancer (HCC) Present on Admission: Yes S/p XRT Stage 1 mild COPD by GOLD classification (HCC) Present on Admission: Yes No s/s of exacerbation Cont home inhaler Lung abscess (HCC) Present on Admission: Yes Sepsis (HCC) Present on Admission: Yes Malignant neoplasm of upper lobe of right lung (HCC) Present on Admission: Yes S/P lobectomy of lung Present on Admission: Status not on file Thoracic lymphadenopathy Present on Admission: Status not on file Ex-smoker Present on Admission: Yes Medication and Non-Pharmacologic VTE Prophylaxis/Anticoagulants 10/24/24 2245 activity - mobilize patient (sd,nm) VTE Prophylaxis: VTE prophylaxis appropriate Disposition: To be determined Plan of care discussed with Provider, RN, Patient Plan communicated to: Patient SIGNATURE: Syed Lei MD, MD PATIENT NAME: Stevie Angeles DATE:10/29/24 TIME:3:06 PM ANES POSTPROC EVAL Observed: 10/29/2024 2:42 PM Status: COMPLETED Source: [facility] ID: [id number] Author: BEATRICE THRASHER MD Service: ? Author Type: Anesthesiologist Type: Anesthesia Postprocedure Evaluation Filed: 10/29/2024 14:42 Note Text: POST ANESTHESIA EVALUATION NOTE : 1950 Procedure Summary Date: 10/29/24 Room / Location: [facility] B- / PUL LAB H23 Anesthesia Start: 1132 Anesthesia Stop: 1416 Procedure: BRONCHOSCOPY FLEXIBLE ADULT (Bronchus) Diagnosis: Bronchiolar disease (Bronchiolar disease [J98.09]) Surgeons: Siddharth Carter MD Responsible Provider: Beatrice Thrasher MD Anesthesia Type: general ASA Status: 4 Anesthesia Type: general Airway Type: ETT, LMA Last Vitals Vitals Value Taken Time BP 94/62 10/29/24 14:30 Temp 36.2 ?C (97.2 ?F) 10/29/24 14:16 Pulse 76 10/29/24 14:40 Resp 20 10/29/24 14:42 SpO2 94 % 10/29/24 14:40 Vitals shown include unfiled device data. Post Anesthesia Patient Status Patient Evaluation: bedside. Anticipated Disposition: phase 2 then home. Neurological Status: aware and responsive. Pulmonary Status: breathing comfortably on supplemental oxygen Airway Control: returned to baseline unsupported. Cardiovascular Status: stable. Pain Management: clinically adequate Postoperative Hydration: acceptable. Intraoperative Events: cardiac dysrhythmia- supraventricular tachycardia Post Operative Nausea/Vomiting Status: no significant post operative nausea or vomiting Recommendation: continue current plan of care. Anesthesia Observations No notable events were associated with this procedure. Documented by Pedro Patel V, APRN.BILLING ADJUDICATOR 10/29/2024 2:17 PM EDT SIGNATURE: Beatrice Thrasher MD PATIENT NAME: Stevie Angeles DATE: October 29, 2024 TIME: 2:42 PM CSN: [id number] ANES PROCEDURE NOTE Observed: 10/29/2024 12:51 PM Status: COMPLETED Source: [facility] ID: [id number] Author: PEDRO PATEL APRN.BILLING ADJUDICATOR Service: ? 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 Final Airway Details Final airway type: supraglottic airway Number of attempts at approach: 2 Final Supraglottic Airway: i-gel Size: 5 (inadequate seal with igel 4)Seal Adequate: yes Failed airway: no Unrecognized esophageal intubation: no Comments ETT exchanged with LMA per Dr. Carter's request SIGNATURE: Pedro Patel APRN.BILLING ADJUDICATOR PATIENT NAME: Stevie Angeles DATE: October 29, 2024 TIME: 12:51 PM CSN: [id number] RESP PATH DNA+RNA PNL NPH WENDY+PROBE Collected: 10/29/2024 12:29 PM Status: F Source: [facility] Order Comment: Specimen Type : SPECIMEN OBTAINED BY [facility] Ordering Facility: [facility] Address: [address] [place] [address] TYPE CODE TESTS RESULT OUT OF RANGE REFERENCE UNITS LAB 58124-0(LOINC) SARS-CoV-2 RNA Spec Ql WENDY+probe Not detected See comment LAB 92397-6(LOINC) FLUAV RNA Spec Ql WENDY+probe Not detected Not detected LAB 90093-8(LOINC) FLUBV RNA Spec Ql WENDY+probe Not detected Not detected LAB 42476-2(LOINC) RSV RNA Upper resp Ql WENDY+probe Not detected Not detected LAB 08589-9(LOINC) hMPV RNA Spec Ql WENDY+probe Not detected Not detected LAB 00652-0(LOINC) Rhinovirus 5' UTR RNA Nph Ql WENDY+probe Not detected Not detected LAB 48821-8(LOINC) Adenovirus hexon gene Nph Ql WENDY+probe Not detected Not detected LAB 82587-0(LOINC) HPIV1 RNA Spec Ql WENDY+probe Not detected Not detected LAB 93660-7(LOINC) HPIV2 RNA Spec Ql WENDY+probe Not detected Not detected LAB 80433-2(LOINC) HPIV3 RNA Spec Ql WENDY+probe Not detected Not detected LAB 58719-8(LOINC) HPIV4 P gene Nph Ql WENDY+probe Not detected Not detected LAB 56956-5(LOINC) HCoV 229E+OC43 RNA Nph Ql WENDY+probe Not detected Not detected LAB 76213-5(LOINC) HCoV OC43 RNA Spec Ql WENDY+probe Not detected Not detected LAB 28787-6(LOINC) HCoV NL63 RNA Nph Ql WENDY+non-probe Not detected Not detected LAB 07413-1(LOINC) HCoV HKU1 RNA Spec Ql WENDY+probe Not detected Not detected LAB 29897-7(LOINC) C pneum DNA Spec Ql WENDY+probe Not detected Not detected LAB 41657-3(LOINC) M pneumo DNA Spec Ql WENDY+probe Not detected Not detected Performed By: #### 02153-0 # ### [facility] CLIA [id number] [address] [place] [address] [place] ASPERGILLUS GALACTOMANNAN BAL Collected : 10/29/2024 12:29 PM Status: F Source: [facility] Order Comment: Specimen Type : SPECIMEN OBTAINED BY [facility] Ordering Facility: [facility] Address: [address] [place] [address] TYPE CODE TESTS RESULT OUT OF RANGE REFERENCE UNITS LAB ASGABQ ASPER. AG BAL,QUAL Negative Negative Result Comment: Aspergillus Galactomannan antigen assay is used as an aid in diagnosis of invasive aspergillosis in immunocompromised individuals especially in post-stem cell transplant, hematological malignancies on chemotherapy, and HIV-positive patients with very low CD4 T-cell counts. The test may also be used in disease prognostication and for monitoring response to anti-fungal therapy. False positive and false negative results are not uncommon. Clinical and radiological correlation is required. LAB ASGAS ASPERGILLUS GALACTOMANNAN 0.04 <=0.49 Index Value Performed By: #### ASGALB ## ## [facility] CLIA [id number] [address] [place] [address] [place] PNEUMOCYSTIS JIROVECII PCR Collected: 0 10/29/2024 12:29 PM Status: F Source: [facility] Comment: Specimen Type : SPECIMEN OBTAINED BY [facility] Ordering Facility: [facility] Address: [address] [place] [address] TYPE CODE TESTS RESULT OUT OF RANGE REFERENCE UNITS LAB 15078-4(LOINC) P jiroveci DNA # Spec WENDY+probe Not detected Pneumocystis jirovecii Not Detected by PCR Performed By: #### PJPCR ### # [facility] CLIA [id number] [address] [place] [address] [place] L PNEUMO DNA SPEC QL WENDY+PROBE Collecte d: 10/29/2024 12:29 PM Status: F Source: [facility] Comment: Specimen Type : SPECIMEN OBTAINED BY [facility] Ordering Facility: [facility] Address: [address] [place] [address] TYPE CODE TESTS RESULT OUT OF RANGE REFERENCE UNITS LAB 321594-1(LOINC) Legionella spp Spec Ql WENDY+probe Not detected Not detected Performed By: #### 99557-4 # ### [facility] CLIA [id number] [address] [place] [address] [place] BAL ROUTINE BFL Collected: 12:29 PM Status: F Source: [facility] Comment: Specimen Type : SPECIMEN OBTAINED BY [facility] Ordering Facility: [facility] [facility] Address: [address] [place] [address] TYPE CODE TESTS RESULT OUT OF RANGE REFERENCE UNITS LAB 11931-7(LOINC) Color Bronch Slightly bloody Abnormal Colorless LAB 23216-2(LOINC) Clarity Spec Cloudy Abnormal Clear LAB 62719-3(LOINC) RBC #/area BAL HPF 9896 Reference range not established. /uL Result Comment: Results veri fied by dilution. LAB 74493-2(LOINC) WBC # Bronch Manual 3071 Reference range not established. /uL Result Comment: Results veri fied by dilution. LAB BALCOM BAL COMMENT Clumped on chamber Performed By: #### [id number], BALAVI #### [facility] CLIA [id number] [address] [place] [address] [place] BAL MANUAL DIFF Collected: 12:29 PM Status: F [facility] Order Comment: Specimen Type : SPECIMEN OBTAINED BY LAVAGE Ordering Facility: [facility] Address: [address] [place] [address] TYPE CODE TESTS RESULT OUT OF RANGE REFERENCE UNITS LAB BADFTT DIF TTL, BA LAVAGE 100 cells counted LAB BANEUT NEUT%, BA LAVAGE 96 % LAB BAMACR MACRO%, BA LAVAGE 4 % Performed By: #### [id number], BALAVI #### [facility] CLIA [id number] [address] [place] [address] [place] BACTERIA BAL AEROBE CULT Observed: 10/29 12:29 PM Status: F Source: [facility] ORGANISM ID: 1 2,000 CFU/mL Escherichia coli Refer to specimen collected on 10/29/2024 at 1146 [[id number]] GRAM STAIN: No organisms seen Few Polymorphonuclear leukocytes Performed By: #### 07374-5 # ### [facility] CLIA [id number] [address] [place] [address] [place] BACTERIA TISS CULT Observed: 10/29/2024 12:08 PM Status: F Source: [facility] ORGANISM ID: 1 Few Escherichia coli GRAM STAIN: No organisms seen No Polymorphonuclear Leukocytes ORGANISM ID: 1 (ESCHERICHIA COLI) ----- ----- ANTIBIOTIC INTERPRETATION DHIRAJ STATUS REFERENCE RANGE ----- ----- Ampicillin S <=2 F Susceptible <=8 , Intermediate >8 , Resistant >16 Ceftriaxone S <=1 F Susceptible <=1 , Intermediate >1 , Resistant >=4 Cefepime S <=1 F Susceptible <=2 , Susceptible-Dose Dependent >2 , Resistant >=16 Ertapenem S <=0.5 F Susceptible <=0.5 , Intermediate >.5 , Resistant >1 Meropenem S <=0.25 F Susceptible <=1 , Intermediate >1 , Resistant >2 Ampicillin/Sulbact S <=2 F Susceptible <=8 , Intermediate >8 , Resistant >16 Piperacillin/Tazobac S <=4 F Susceptible <16 , Susceptible-Dose Dependent >=16 , Resistant >=32 Gentamicin S <=1 F Susceptible <=2 , Intermediate >2 , Resistant >=8 Tobramycin S <=1 F Susceptible <4 , Intermediate >=4 , Resistant >=8 Trimeth sulfameth S <=20 F Susceptible <=40 , Resistant >40 Ciprofloxacin S <=0.25 F Susceptible <0.5 , Intermediate >=.5 , Resistant >=1 Performed By: #### 635-3, 43 408-4 #### [facility] CLIA [id number] [address] [place], [place] [id number] [place] BACTERIA SPEC ANAEROBE CULT Observed: 10/29/2024 12:08 PM Status: F Source: [facility] CULTURE, ANAEROBE: Negative for anaerobes. Performed By: #### 635-3, 43 408-4 #### [facility] CLIA [id number] [address] [place], [place] [address] [place] PD-L1 22C3 Collected: 12:02 PM Status: F Source: [facility] Order Comment: Specimen Type : TISSUE SPECIMEN Ordering Facility: [facility] Address: [address] [place] [address] TYPE CODE TESTS RESULT OUT OF RANGE REFERENCE UNITS LAB [id number] PD-L1 22C3 TPS (LUNG) INTERPRETATION Negative (less than 1%) LAB [id number] TUMOR PROPORTION SCORE (TPS) <1 LAB [id number] PD-L1 TUMOR TYPE Other (See Comment) Result Comment: See original report LAB [id number] [facility] CASE NUMBER PD-L1 [id number] LAB [id number] FIXATIVE LAB [id number] BIOMARKER INTERPRETATION COMMENT AND REFERENCE RANGE Result Comment: Interpretati on standard: TPS: The Tumor Proportion Score is the percentage of the viable tumor cells demonstrating partial or completed membrane staining of any intensity. Reference Range for PDL1 expression in Non-Small Cell Lung Cancer (NSCLC) TPS less than 1%: Negative TPS between 1 - 49%: Low Positive TPS greater than 50%: High Positive The PDL1 expression of Non-Small Cell Lung Cancer (NSCLC) is interpreted to determine if the patient should be considered for treatment with either pembrolizumab (KEYTRUDA) or cemiplimab-rwlc (LIBTAYO). Please refer to the Product label for additional information. KEYTRUDA - (https://www.[employer]com/prescribing-information/) LIBTAYO - (https://www.[employer]/sites/default/files/Libtayo_FPI.pdf) LAB [id number] BIOMARKER METHOD Immunohistochemistry was performed on formalin fixed paraffin-embedded tissue using the mouse monoclonal antibody 22C3 ([employer]; [place], [place]) followed by ultrasensitive bright field detection (Optiview with amplification [[employer], [place]]). LAB [id number] AP BIOMARKER DISCLAIMER Result Comment: Laboratory Developed Test (LDT) Disclaimer: Performance characteristics of immunohistochemical, immunofluorescent and chromogenic in-situ hybridization tests have been determined by the performing laboratory within [facility]???s [facility] Pathology and Laboratory Medicine Department ([facility], [facility], [facility], [facility], [facility], [facility], or [facility]) in a manner consistent with CLIA requirements. One or more of these tests have not been cleared or approved by the FDA. [facility] is regulated under CLIA as qualified to perform high-complexity testing. These tests are used for clinical purposes. They should not be regarded as investigational or for research. Positive and negative controls stain appropriately. LAB [id number] AP BLOCK ID A1 LAB FPLAB FINAL PERFORMING LAB Result Comment: Diagnostic i nterpretation performed at: [facility], [address] [place] [address], [facility] [place] [address] CLIA# [id number] [employer] Bank[employer] Representative: Ike Reaves MD Electronically signed out by: Alexis Altman MD Performed By: #### [id number] # ### [facility] CLIA [id number] [address] [place] [address] [facility] TISS PATH BX REPORT Collected: 10/30/19 12:02 PM Status: F Source: [facility] Order Comment: Specimen Type : TISSUE SPECIMEN Ordering Facility: [facility] Address: [address] [place] [address] TYPE CODE TESTS RESULT OUT OF RANGE REFERENCE UNITS PATHOLOGY [id number] CASE REPORT Result Comment: Surgical Pat hology Report Case: [id number] Authorizing Provider: Siddharth Carter MD Collected: 10/29/2024 12:02 PM Ordering Location: Admitting Received: 10/29/2024 06:38 PM Pathologist: Alexis Altman MD Specimens: A) - Bronchus, Biopsy, RLL EBBX B) - Bronchus, Biopsy, RUL TBBX PATHOLOGY [id number] FINAL DIAGNOSIS Result Comment: A. Lung, rig ht lower lobe, endobronchial biopsy: -Keratinizing squamous cell carcinoma. B. Lung, right upper lobe, transbronchial biopsy: -Necroinflammatory exudate, and occasional scattered degenerated, poorly preserved atypical epithelial cells (see comment). -Bronchial mucosa, granulation tissue, rare multinucleated giant cells, (see comment), at 1745 EDT PATHOLOGY [id number] DIAGNOSIS COMMENT Result Comment: Immunostains for keratin AE1/AE3, p40 and SMA were performed on B1: Keratin AE1/AE3 highlights preserved degenerated atypical cells that are negative for p40 and SMA. GMS stain was performed on B1: No fungal organisms were identified. PATHOLOGY [id number] GROSS DESCRIPTION Result Comment: A. Bronchus, Biopsy Received in formalin are multiple pieces of clark-red, soft tissue aggregating to 0.9 x 0.5 x 0.2 cm. Totally submitted in cassette A1. B. Bronchus, Biopsy Received in formalin are multiple pieces of clark-brown, soft tissue aggregating to 2.7 x 0.5 x 0.2 cm. Totally submitted in cassette B1. DL 10/29/24 8:03 PM. Gross examination performed at [facility], [address] [place] [address]. [place] [address] PATHOLOGY CDX2 CLINICAL HISTORY Result Comment: Pre-op diagn osis: Bronchiolar disease [J98.09] RUL cavitary mass the airway examination was abnormal. RLL endobronchial disease at stump. Purulent secretison from RUL. PATHOLOGY FPLAB FINAL PERFORMING LAB Result Comment: Diagnostic i nterpretation performed at: [facility], [address] [place] [address] CLIA# [id number] [employer] Representative: Ike Reaves MD PATHOLOGY [id number] AP DISCLAIMER Result Comment: Laboratory D eveloped Test (LDT) Disclaimer: Performance characteristics of immunohistochemical, immunofluorescent, and chromogenic in-situ hybridization tests have been determined by the performing laboratory within the [facility] Department of Pathology and Laboratory Medicine ([facility], [facility], [facility], [facility], [facility], [facility], or [facility]) in a manner consistent with CLIA requirements. One or more of these tests may not have been cleared or approved by the FDA. The [facility] Department of Pathology and Laboratory Medicine is regulated under CLIA as qualified to perform high-complexity testing. These tests are used for clinical purposes. These should not be regarded as investigational or for research. Positive and negative controls stain appropriately. Performed By: #### 57021-5 # ### [facility] CLIA [id number] [address] [place] [address] [place] CYTOLOGY NON-CLASP MACHINE OPERATOR Collected: 11:54 AM Status: F Source: [facility] Order Comment: Specimen Type : SPECIMEN OBTAINED BY ASPIRATION Ordering Facility: [facility] Address: [address] [place] [address] TYPE CODE TESTS RESULT OUT OF RANGE REFERENCE UNITS PATHOLOGY [id number] CASE REPORT Result Comment: Medical Cyto logy Report Case: [id number] Authorizing Provider: Siddharth Carter MD Collected: 10/29/2024 11:54 AM Ordering Location: Admitting Received: 10/29/2024 02:37 PM Pathologist: Zaina Bolton MD Specimens: A) - Lung, Right Lower Lobe, Transbronchial, right lower lobe TBNA B) - Lung, Right Upper Lobe, Transbronchial, right upper lobeTBNA C) - Lymph Node, Transbronchial, 4L D) - Lymph Node, Transbronchial, 2R E) - Lymph Node, Transbronchial, 4R F) - Lymph Node, Transbronchial, 11RS G) - Lung, Right Upper Lobe, Transbronchial, right upper lobe consolidation PATHOLOGY [id number] FINAL DIAGNOSIS Result Comment: A - Lung, Ri ght Lower Lobe, Transbronchial, FNA - right lower lobe TBNA Positive for malignant cells. Squamous cell carcinoma, keratinizing type. (See comment.) B - Lung, Right Upper Lobe, Transbronchial, FNA - right upper lobe TBNA Rare atypical squamous cells present in a background of abscess, not otherwise diagnostic. (See comment.) C - Lymph Node, Transbronchial, FNA - 4L Negative for malignant cells. Benign lymphoid sample. D - Lymph Node, Transbronchial, FNA - 2R Negative for malignant cells. Benign lymphoid sample. E - Lymph Node, Transbronchial, FNA - 4R Negative for malignant cells. Benign lymphoid sample. F - Lymph Node, Transbronchial, FNA - 11RS Negative for malignant cells. Benign lymphoid sample. G - Lung, Right Upper Lobe, Transbronchial, FNA - right upper lobe consolidation Rare atypical cells present, favor radiation atypia. (See comment.) The following cell blocks were associated with this case: A1 Cell Block, Alcohol Fixed B1 Cell Block, Alcohol Fixed C1 Cell Block, Alcohol Fixed D1 Cell Block, Alcohol Fixed E1 Cell Block, Alcohol Fixed F1 Cell Block, Alcohol Fixed G1 Cell Block, Alcohol Fixed at 1605 T PATHOLOGY [id number] DIAGNOSIS COMMENT The patient's history of prior squamous cell carcinoma of the right lower lobe, and radiation for a lung mass in the right upper lobe is noted. The significance of rare atypical squamous cells in part B (best seen on slide B1-8) with abundant necro-inflamma tory debris consistent with abscess is uncertain; in infectious cavitary lesions, atypical squamous metaplasia can be seen. Select slides (A1-3, A1-6, B1-1, B1-3, B1-8, G1-1, G1-2, G1-3, G1-6) were reviewed at the Cytology Consensus Conference, and Drs. Farrar, Gerald, and Hernesto agree with the diagnosis. PATHOLOGY [id number] GROSS DESCRIPTION Result Comment: A. Lung, Rig ht Lower Lobe, Transbronchial 30 cc clear colorless CytoLyt with scant particles. ThinPrep and Cell Block prepared and 4 smears (2 air dried and 2 fixed). B. Lung, Right Upper Lobe, Transbronchial 30 cc cloudy pink CytoLyt with material. ThinPrep and Cell Block prepared and 6 smears (3 air dried and 3 fixed). C. Lymph Node, Transbronchial 30 cc clear pink CytoLyt with material. ThinPrep and Cell Block prepared and 4 smears (2 air dried and 2 fixed). D. Lymph Node, Transbronchial 30 cc clear pink CytoLyt with material. ThinPrep and Cell Block prepared and 4 smears (2 air dried and 2 fixed). E. Lymph Node, Transbronchial 30 cc clear pink CytoLyt with material. ThinPrep and Cell Block prepared and 6 smears (3 air dried and 3 fixed). F. Lymph Node, Transbronchial 30 cc clear pink CytoLyt with material. ThinPrep and Cell Block prepared and 4 smears (2 air dried and 2 fixed). G. Lung, Right Upper Lobe, Transbronchial 30 cc clear red CytoLyt with material. ThinPrep and Cell Block prepared and 4 smears (2 air dried and 2 fixed). PATHOLOGY CDX2 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 PATHOLOGY [id number] ADEQUACY INTERPRETATION Result Comment: A: #1-2: Akrin picious for squamous cell carcinoma B: #1-3: Marked acute inflammation C: #1-2: Non-diagnostic D: #1: Lymphoid sample #2: Non-diagnostic E: #1: Lymphoid sample #2-3: Non-diagnostic F: #1-2: Lymphoid sample G: #1: Chronic inflammation, predominantly histocytes #2: Non-diagnostic Dr. Tete Bolton/Alfonso Mckinney Each letter in the above intra-procedural assessment refers to a unique site. The specific site is indicated in the final diagnosis portion of the report. Each number in this assessment references a discrete evaluation episode. Intra-procedural assessment performed at [facility], [facility] [place] [address] PATHOLOGY ORDERC ORDER COMMENT Result Comment: Pre-op diagn osis: Bronchiolar disease [J98.09] PATHOLOGY FPLAB FINAL PERFORMING LAB Result Comment: Technical co mponent, skin washer screening performed at: [facility], [address] [place] [address] CLIA: [id number] Diagnostic interpretation performed at: [facility], [address] [place] [address] CLIA# [id number] [employer] Banking Representative: Ike Reaves MD PATHOLOGY [id number] AP DISCLAIMER Result Comment: Laboratory D eveloped Test (LDT) Disclaimer: Performance characteristics of immunohistochemical, immunofluorescent, and chromogenic in-situ hybridization tests have been determined by the performing laboratory within the [facility] Department of Pathology and Laboratory Medicine ([facility], [facility], [facility], [facility], [facility], [facility], or [facility]) in a manner consistent with CLIA requirements. One or more of these tests may not have been cleared or approved by the FDA. The [facility] Department of Pathology and Laboratory Medicine is regulated under CLIA as qualified to perform high-complexity testing. These tests are used for clinical purposes. These should not be regarded as investigational or for research. Positive and negative controls stain appropriately. Performed By: #### CYTONON # ### [facility] CLIA [id number] [address] [place] [address] [place] ANES PROCEDURE NOTE Observed: 10/29/2024 11:50 AM Status: COMPLETED Source: [facility] HNO ID: [id number] Author: PEDRO PATEL APRN.BILLING ADJUDICATOR Service: ? 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 Final Airway Details Final airway type: endotracheal airwayFinal Endotracheal Airway: ETT Cuffed: yes Successful intubation technique: video laryngoscopy Devices used: [employer] Endotracheal tube insertion site: oral Blade size: #4 ETT size (mm): 8.5 Measured from: lips Measurement (cm): 24 Placement verified by: capnometry Cormack-Lehane Classification: grade I - full view of glottis Number of attempts at approach: 1 Failed airway: no Unrecognized esophageal intubation: no Airway not difficult SIGNATURE: Pedro Patel APRN.CRNA PATIENT NAME: Stevie Angeles DATE: October 29, 2024 TIME: 11:50 AM CSN: [id number] BACTERIA SPEC RESP CULT Observed: 2024 11:46 AM Status: F Source: [facility] ORGANISM ID: 1 Few Escherichia coli GRAM STAIN: No organisms seen Many Red Blood Cells Many Polymorphonuclear leukocytes ORGANISM ID: 1 (ESCHERICHIA COLI) ----- ----- ANTIBIOTIC INTERPRETATION DHIRAJ STATUS REFERENCE RANGE ----- ----- Ampicillin S <=2 F Susceptible <=8 , Intermediate >8 , Resistant >16 Ceftriaxone S <=1 F Susceptible <=1 , Intermediate >1 , Resistant >=4 Cefepime S <=1 F Susceptible <=2 , Susceptible-Dose Dependent >2 , Resistant >=16 Ertapenem S <=0.5 F Susceptible <=0.5 , Intermediate >.5 , Resistant >1 Meropenem S <=0.25 F Susceptible <=1 , Intermediate >1 , Resistant >2 Ampicillin/Sulbact S <=2 F Susceptible <=8 , Intermediate >8 , Resistant >16 Piperacillin/Tazobac S <=4 F Susceptible <16 , Susceptible-Dose Dependent >=16 , Resistant >=32 Gentamicin S <=1 F Susceptible <=2 , Intermediate >2 , Resistant >=8 Tobramycin S <=1 F Susceptible <4 , Intermediate >=4 , Resistant >=8 Trimeth sulfameth S <=20 F Susceptible <=40 , Resistant >40 Ciprofloxacin S <=0.25 F Susceptible <0.5 , Intermediate >=.5 , Resistant >=1 Performed By: #### 72036-2 # ### [facility] CLIA [id number] [address] [place] [address] [place] ANES PRE-OP Observed: 10/29/2024 11:29 AM Status: COMPLETED Source: [facility] HNO ID: [id number] Author: BEATRICE THRASHER MD Service: ? Author Type: Anesthesiologist Type: Anesthesia Preprocedure Evaluation Filed: 10/29/2024 11:32 Note Text: ANESTHESIOLOGY DAY OF SURGERY NOTE : 1950 Procedure Information Date/Time: 10/29/24 1330 Procedure: BRONCHOSCOPY FLEXIBLE ADULT (Bronchus) - PTP Tier 2 BAL+TBBX+TBNA of RUL cavity +/- Staging EBUS [id number] [facility] Location: PUL B-02 / PUL LAB H23 Surgeons: Siddharth Carter MD Estimated body mass index is 23.25 kg/m? as calculated from the following: Height as of 10/24/24: 177.8 cm (5' 10). Weight as of 10/24/24: 73.5 kg (162 lb 0.6 oz). Most recent hematocrit and potassium results: Hematocrit 35.4 10/28/2024 Potassium 3.7 10/28/2024 Relevant Problems CARDIO (+) Infrarenal abdominal aortic aneurysm (AAA) without rupture (+) Paroxysmal atrial fibrillation (HCC) (+) Primary hypertension PULMONARY (+) Stage 1 mild COPD by GOLD classification (HCC) Other (+) Thoracic lymphadenopathy I - PHYSICAL EVALUATION AIRWAY Patient intubated: No. Tracheostomy tube not present Mallampati: II. TM distance: >3 FB. Neck ROM: full ROM without neurological symptoms. Mouth opening: >3 FB. Short neck: no. Thick neck: no DENTAL Dental findings: missing tooth/teeth. II - ANESTHESIA PLAN ASA Score: 4 Anesthetic Plan: general Airway type: ETT NPO Status: adequate Monitoring Plan Monitoring plan: standard ASA. Post Procedure Analgesic Plan Postoperative analgesic plan: multimodal analgesia. Informed Consent Anesthetic risks, benefits, alternatives, personnel and consent discussed: yes. Patient / Responsible Constitution Party agrees to proceed: yes Patient / Surrogate agrees to blood products: Yes Significant changes in the patient condition since the History and Physical, not otherwise documented in primary service progress note: no. Potential Anesthesia issues that may suggest increased risk of complications or contraindication to planned procedure: none. No vitals data found for the desired time range. Facility-Administered Medications as of 10/29/2024 Medication Dose Route Frequency [Held on Transfer - Suspended Admission] metoprolol succinate ER 25 mg tab(s) (TOPROL XL) 25 mg ORAL DAILY [COMPLETED] NaCl 0.9% 500 mL iv bolus 500 mL INTRAVENOUS ONCE [Held on Transfer - Suspended Admission] NaCl 0.9% iv flush bag 20 mL INTRAVENOUS PRN [Held on Transfer - Suspended Admission] piperacillin-tazobactam iv piggyback 3.375 g in dextrose (iso-osmotic) 50 mL (ZOSYN) 3.375 g INTRAVENOUS q 6 H [Held on Transfer - Suspended Admission] atorvastatin 20 mg tab(s) (LIPITOR) 20 mg ORAL AT BEDTIME [Held on Transfer - Suspended Admission] acetaminophen 650 mg tab(s) (TYLENOL) 650 mg ORAL q 6 H PRN [COMPLETED] magnesium sulfate iv piggyback in sterile water 2 g 50 mL 2 g INTRAVENOUS ONCE [] sodium chloride 0.9 % (flush) 2-10 mL (BD POSIFLUSH) 2-10 mL INTRAVENOUS DIRECTED PRN And [] perflutren lipid microspheres 1.1 mg/mL 1.3 mL injection (DEFINITY) 1.3 mL INTRAVENOUS DIRECTED PRN [Held on Transfer - Suspended Admission] guaiFENesin 600 mg ER tab(s) (MUCINEX) 600 mg ORAL q 12 H [Held on Transfer - Suspended Admission] albuterol 2.5 mg /3 mL (0.083 %) 2.5 mg (PROVENTIL) 2.5 mg INHALATION QID [Held on Transfer - Suspended Admission] budesonide 0.5 mg/2 mL 0.5 mg (PULMICORT) 0.5 mg INHALATION BID [Held on Transfer - Suspended Admission] gabapentin 600 mg cap(s) (NEURONTIN) 600 mg ORAL TID Outpatient Medications as of 10/29/2024 Medication Sig lisinopril-hydroCHLOROthiazide (ZESTORETIC) 20-12.5 mg per tablet Take 1 tablet by mouth once daily. atorvastatin (LIPITOR) 20 mg tablet Take 1 tablet by mouth once daily. fluticasone-salmeterol (WIXELA INHUB) 250-50 mcg/dose inhaler Inhale 1 puff as instructed two times a day. gabapentin (NEURONTIN) 300 mg capsule TAKE 2 CAPSULES BY MOUTH 3 TIMES A DAY I have interviewed and examined the patient. I have reviewed the medical record and/or the pre-anesthesia evaluation, pertinent labs, and test results. This contains updated information obtained within 48 hours of Surgery/Procedure. SIGNATURE: Beatrice Thrasher MD PATIENT NAME: Stevie Angeles DATE: October 29, 2024 TIME: 11:29 AM CSN: [id number] BRONCHOSCOPY Observed: 10/29/2024 11:09 AM Status: F Source: [facility] Patient Name: Stevie Angeles Procedure Date: 10/29/2024 11:09 AM Date of : 1950 Admit Type: Inpatient Age: 74 Gender: Male Note Status: Finalized Procedure: Bronchoscopy Indications: Right upper lobe mass Providers: Siddharth Carter MD (Doctor), Lore Kilgore (Fellow) Referring MD: Requesting Physician: Thad Beltran MD, Dia Urena MD Patient Profile: Refer to note in patient chart for documentation of history and physical. Medicines: General Anesthesia Complications: No immediate complications. No pneumothorax on post procedure fluorosscopy. Estimated Blood Loss: Estimated blood loss was minimal. Procedure: Pre-Anesthesia Assessment: - The History and Physical was reviewed prior to the procedure. The patient's medications, allergies and sensitivities have also been reviewed. - The risks and benefits of the procedure and the sedation options and risks were discussed with the patient. All questions were answered and informed consent was obtained. - Mental Status Examination: normal. Airway Examination: Please refer to anesthesia staff note. Respiratory Examination: clear to auscultation. CV Examination: normal. After confirmation of universal protocol, the bronchoscope was introduced. The bronchoscope was introduced through the mouth, via the endotracheal tube (the patient was intubated for the procedure) and advanced to the tracheobronchial tree. The Bronchoscope was introduced through the mouth, via laryngeal mask airway and advanced to the tracheobronchial tree. The procedure was accomplished without difficulty. The patient tolerated the procedure well. Total fluoroscopy time was 4 minutes, 46 seconds, 62.1mGy. Findings: The endotracheal tube is in good position. The trachea is of normal caliber. The patti is sharp. The tracheobronchial tree was examined to at least the first subsegmental level. Bronchial mucosa and anatomy are normal; previous right lower lobectomy noted. Right lung abnormalities: Endobronchial disease noted arrising from RLL stump at the suture line. Also there are purulent secretions draining from the posterior segment of the RUL bronchus. Endobronchial needle aspiration of a lesion was performed in the right lower lobe using Arcpoint 21g and sent for routine cytology. Three samples were obtained. Rapid On-Site Evaluation (GWEN): Preliminary cytology of the lesion in the right lower lobe was suggestive of non small cell carcinoma (final results are pending). Endobronchial biopsies of a lesion were performed in the right lower lobe using a forceps and sent for histopathology examination. Five samples were obtained. FiO2 was lowered to <40% and Ablation was performed in the right lower lobe of the lung using an Argon Plasma Coagulation (APC) as well as with electrocuatery at the RLL stump. Washings were obtained in the right upper lobe and sent for bacterial, AFB and fungal analysis. The return was mucopurulent. There is a large cavitary lesion in the right upper lobe. Radial probe was used to identify a concentric target in the RUL posterior segment. A 90 degree edge catheter working channel was extended over the radial probe. Via the working channel, transbronchial needle aspiration and transbronchial biopseis were conducted. Transbronchial needle aspirations of a cavitary mass were performed in the posterior segment of the right upper lobe using Arcpoint 21g and sent for routine cytology and tissue culture. The procedure was guided by fluoroscopy. Transbronchial needle aspiration technique was selected because the sampling site was not visible endoscopically. The sampling device penetrated the full thickness of the bronchial wall to obtain the needle aspiration of lung tissue. 7 were obtained. Rapid On-Site Evaluation (GWEN): Preliminary cytology of the lesion in the posterior segment of the right upper lobe was suggestive marked acute inflammation (final results are pending). Transbronchial biopsies of a cavitary mass were performed in the posterior segment of the right upper lobe using forceps and sent for histopathology examination and tissue culture. The procedure was guided by fluoroscopy. Transbronchial biopsy technique was selected because the sampling site was not visible endoscopically. The sampling device penetrated the full thickness of the bronchial wall to obtain the biopsy of lung tissue. Twelve biopsy passes were performed. Twelve biopsy samples were obtained. The bronchoscope was advanced until wedged at the desired location for bronchoalveolar lavage. BAL was performed in the right upper lobe of the lung and sent for ID BAL. 100 mL of fluid were instilled. 40 mL were returned. The return was blood tinged. There were no mucoid plugs in the return fluid The scope was withdrawn and replaced with the EBUS bronchoscope for staging purposes. Lymph Nodes: Lymph node sizing was performed via endobronchial ultrasound for suspected non-small cell lung cancer. Sampling by transbronchial needle aspiration was also performed using an Olympus ViziShot 22 gauge needle and sent for routine cytology. - The 11L (interlobar) node was 3.5 mm by EBUS, [address] and PET scan was not done. Sampling was not done due to size criteria (less than 5 mm). - The 10L (hilar) node was 1.9 mm by EBUS, 2mm by CT and PET scan was not done. Sampling was not done due to size criteria (less than 5 mm). - The 4L (lower paratracheal) node was 4.2mm by EBUS, [address] and PET scan was not done. Sampling was not done due to size criteria (less than 5 mm). - The 2L (upper paratracheal) node was 2.5 mm by EBUS, [address] and PET scan was not done. Sampling was not done due to size criteria (less than 5 mm). - The 7 (subcarinal) node was 4.3 mm by EBUS, [address] and PET scan was not done. Sampling was not done due to size criteria (less than 5 mm). - The 4R (lower paratracheal) node was 6 mm by EBUS, 8.5 mm by EBUS, 10.1 mm by EBUS, 10 mm and 7mm by CT and PET scan was not done. Six samples with the needle were obtained as multiple nodes sampled at this station - The 2R (upper paratracheal) node was 16.1 mm by EBUS, [address] and PET scan was not done. Three samples with the needle were obtained. - The 10R node was 4 mm by EBUS, [address] and PET scan was not done. Sampling was not done due to size criteria (less than 5 mm). - The 11Rs (superior interlobar) node was 6.8 mm by EBUS, [address] and PET scan was not done. Three samples with the needle were obtained. - RUL consolidation. Four samples were obtained with the needle. Lymph Nodes: Rapid On-Site Evaluation (GWEN): Preliminary cytology was suggestive of benign-appearing lymphoid tissue (final results are pending) in the right upper paratracheal region (level 2R), right lower paratracheal region (level 4R), left lower paratracheal region (level 4L) and right superior interlobar region (level 11Rs). Preliminary cytology was suggestive of histiocytes and non diagnostic specimen final results are pending) in the Right UPPER lobe consdolitaion. Some thickening of vocal cords noted. Impression: - Right upper lobe cavitary mass - The airway examination was abnormal. -RLL endobronchial disease at stump -Purulent secretison from RUL - Lymph node sizing and sampling was performed. 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 - Transbronchial lung biopsies were performed. -Ablation performed over RLL endobronchial lesion -BAL and washings were performed Recommendation: Oncology consulation Some thickening of vocal cords noted. ENT consultation Attending Participation: I was present and participated during the entire procedure, including non-turcios portions. I was present and participated during the entire procedure, from insertion to removal of the scope. The fellow participated in less than 50 percent of the procedure. MD Siddharth Avila MD 10/30/2024 8:49:34 AM This report has been signed electronically by Siddharth Carter MD Number of Addenda: 0 Note Initiated On: 10/29/2024 11:09 AM Procedure Start: 11:44:35 AM Procedure End: 1:54:30 PM NURSING PROG Observed: 10/29/2024 9:25 AM Status: COMPLETED Source: [facility] HNO ID: [id number] Author: MARYCARMEN CHRISTOPHER RN Service: Nursing Author Type: Registered Nurse Type: Nursing Progress Note Filed: 10/29/2024 09:26 Note Text: Other: Called [facility] for report , as per nurse report was already called this am . CASE MANAGEM Observed: 10/29/2024 9:02 AM Status: COMPLETED Source: [facility] HNO ID: [id number] Author: GRACIELA SIFUENTES RN Service: Care Management Author Type: Registered Nurse Type: Care Mgt Progress Note Filed: 10/29/2024 09:04 Note Text: CARE MANAGEMENT PROGRESS NOTE SERVICE DATE: 10/29/2024 SERVICE TIME: 9:02 AM LOS: 5 days Needs Prior to Discharge: To Be Determined EMR reviewed. Patient scheduled to go on [facility] to [facility] today for Bronch. Transportation scheduled for 9:15-9:30 AM picker. Cavitary lesion RUL, infection vs malignancy. Hx Lung Cancer RLL s/p Lobectomy 10/2023. On IV ATB. On RA. SVT, Paroxysmal A Fib. Now SR. Pulmonology and ID following. Cardiology signed off. SIGNATURE: Graciela Sifuentes RN PATIENT NAME: Stevie Angeles DATE: October 29, 2024 TIME: 9:02 AM CONSULT PROG Observed: 10/29/2024 7:53 AM Status: COMPLETED Source: [facility] HNO ID: [id number] Author: KURT PEREIRA MD Service: Infectious Disease Author Type: Physician Type: Consult Progress Note Filed: 10/29/2024 11:54 Note Text: INFECTIOUS DISEASE PROGRESS NOTE Patient Name: Stevie Angeles INTERVAL HISTORY: Going to [facility] for Bronch today w [facility]. Cough present. Feels tired. No fevers Patient Active Hospital Problem List: Paroxysmal atrial fibrillation (HCC) Date Noted: 09/11/2023 Mixed hyperlipidemia Date Noted: 06/23/2010 Infrarenal abdominal aortic aneurysm (AAA) without rupture Date Noted: 02/08/2021 Prostate cancer (HCC) Date Noted: 09/11/2023 Cancer of lower lobe of right lung (HCC) Date Noted: 11/15/2023 Stage 1 mild COPD by GOLD classification (HCC) Date Noted: 11/17/2023 Lung abscess (HCC) Date Noted: 11/17/2023 Cavitary lesion of lung Date Noted: 10/24/2024 Anemia Date Noted: 10/24/2024 Sepsis (HCC) Date Noted: 10/25/2024 Malignant neoplasm of upper lobe of right lung (HCC) Date Noted: 10/25/2024 S/P lobectomy of lung Date Noted: 10/25/2024 Thoracic lymphadenopathy Date Noted: 10/25/2024 Ex-smoker Date Noted: 10/25/2024 ASSESSMENT: Stevie Angeles is a 74 year old male with tachycardia and leukocytosis, CT of the chest revealed thick-walled right upper lobe cavitary mass is noted with an associated air-fluid level. Differential includes primary lung abscess, could potentially be from aspiration and poor dentition versus malignancy. Plan: Suspect superinfected cavitary mass which could have been malignant. Plan on performing bronchoscopy/EBUS at [facility] on 10/29. Will continue with empiric piperacillin tazobactam and can stop vancomycin Follow-up on bronchial cultures and pathology from bronchoscopy. Will follow-up on sputum culture collected today. For now pending Legionella and Streptococcus pneumonia urine antigen, pending mycoplasma pneumonia PCR on sputum. NR HIV 1/2 and pending TB QuantiFERON gold. I have reviewed and interpreted all lab test imaging studies and documentations from other healthcare providers I am monitoring antibiotics for side effects and toxicity MEDICATIONS: reviewed. Current Facility-Administered Medications Medication Dose Route Frequency [Held on Transfer - Suspended Admission] NaCl 0.9% iv flush bag 20 mL INTRAVENOUS PRN [Held on Transfer - Suspended Admission] piperacillin-tazobactam iv piggyback 3.375 g in dextrose (iso-osmotic) 50 mL (ZOSYN) 3.375 g INTRAVENOUS q 6 H [Held on Transfer - Suspended Admission] atorvastatin 20 mg tab(s) (LIPITOR) 20 mg ORAL AT BEDTIME [Held on Transfer - Suspended Admission] acetaminophen 650 mg tab(s) (TYLENOL) 650 mg ORAL q 6 H PRN [Held on Transfer - Suspended Admission] guaiFENesin 600 mg ER tab(s) (MUCINEX) 600 mg ORAL q 12 H [Held on Transfer - Suspended Admission] albuterol 2.5 mg /3 mL (0.083 %) 2.5 mg (PROVENTIL) 2.5 mg INHALATION QID [Held on Transfer - Suspended Admission] budesonide 0.5 mg/2 mL 0.5 mg (PULMICORT) 0.5 mg INHALATION BID [Held on Transfer - Suspended Admission] gabapentin 600 mg cap(s) (NEURONTIN) 600 mg ORAL TID [Held on Transfer - Suspended Admission] metoprolol succinate ER 25 mg tab(s) (TOPROL XL) 25 mg ORAL DAILY Facility-Administered Medications Ordered in Other Encounters Medication Dose Route Frequency PHENYLephrine injection INTRAVENOUS PRN lactated ringers iv infusion INTRAVENOUS X (ONE-STEP ONLY) CONTINUOUS PRN propofol injection (DIPRIVAN) INTRAVENOUS PRN lidocaine (PF) 20 mg/mL (2 %) injection (XYLOCAINE) INTRAVENOUS PRN ondansetron (PF) injection (ZOFRAN) INTRAVENOUS PRN dexAMETHasone sodium phosphate injection (DECADRON) INTRAVENOUS PRN propofol infusion (DIPRIVAN) INTRAVENOUS X (ONE-STEP ONLY) CONTINUOUS PRN PHYSICAL EXAM: Vital signs: BP 114/69 Pulse 68 Temp 36.6 ?C (97.9 ?F) (Oral) Resp 18 Ht 177.8 cm (5' 10) Wt 73.5 kg (162 lb 0.6 oz) SpO2 94% BMI 23.25 kg/m? Temp (24hrs), Av.7 ?C (98.1 ?F), Min:36.6 ?C (97.8 ?F), Max:36.8 ?C (98.3 ?F) General: alert, oriented, NAD Lungs: bilaterally clear to auscultation Heart: regular rate and rhythm Abdomen: soft, non tender, non distended, BS+ Extremities: no edema No rashes No joint inflammation Neck supple Lines ok No CVAT Lines, Drains, and Airways Line Duration Peripheral 10/27/24 0508 Left Wrist 22 Gauge 2 days Drain Duration External Collection Device 10/24/24 2300 4 days Airway Duration Airway Endotracheal Tube 10/29/24 1137 <1 day Labs: Recent Labs 10/28/24 1427 10/28/24 0953 10/27/24 0629 WBC -- 10.74 13.32* HB -- 11.6* 11.2* PLT -- 394 391 INR 1.1 -- -- NA -- 141 134* K -- 3.7 3.7 CO2 -- 24 22 BUN -- 9 8* CREAT -- 0.78 0.54* VANCORA -- 11.9 -- Microbiology data: reviewed Imaging data: reviewed Kurt Pereira MD [phone] 10/29/2024 7:53 AM PT PNL PPP Collected: 10/28/2024 2:27 PM Status: F Source: [facility] Order Comment: Specimen Type : BLOOD SPECIMEN Ordering Facility: [facility] Address: [address] [place] [address] TYPE CODE TESTS RESULT OUT OF RANGE REFERENCE UNITS LAB 5902-2(LOINC) Prothrombin time 11.9 9.7-13.0 sec LAB 6301-6(LOINC) INR PPP 1.1 0.9-1.3 Result Comment: Vitamin K An tagonist (VKA) Therapeutic Range: INR 2 to 3 (Target INR of 2.5) Note: For patients treated with VKA drugs, such as warfarin, the [employer] 2012 Guideline recommends a therapeutic INR range of 2 to 3 (target INR of 2.5). This recommendation includes high-risk patients with antiphospholipid syndrome with previous arterial or venous thromboembolism, current-generation mechanical or bioprosthetic aortic heart valve replacement. Note: Patients with mechanical aortic valve replacement and additional risk factors for thromboembolic events (atrial fibrillation, previous thromboembolism, LV dysfunction, hypercoagulable conditions) or an older generation mechanical AVR (i.e., ball in-Cage) or any mechanical MVR should have a INR therapeutic range of 2.5 to 3.5 (target INR of 3). Etienne FRANCIS, et al. Chest 2012, 141:7S-47S Vicki RA, et al. [facility] 2017, 70: 252-289 Performed By: #### [id number] # ### [facility] CLIA [id number] [address] [place] [address] [place] PROGRESS Observed: 10/28/2024 1:13 PM Status: COMPLETED Source: [facility] HNO ID: [id number] Author: SYED LEI MD Service: Hospital Medicine Author Type: Physician Type: Progress Notes Filed: 10/28/2024 13:20 Note Text: DEPARTMENT OF HOSPITAL MEDICINE PROGRESS NOTE SERVICE DATE: 10/28/2024 SERVICE TIME: 1:13 PM Hospital Medicine/Primary Attending: Syed Lei,* NIGHT AND WEEKEND COVERAGE: [facility] COVERAGE: Days: [phone], please page attending physician. Nights: [phone], please page [place] [facility] Night coverage pager [phone]. Subjective INTERVAL HPI: Seen and examined, patient was resting. Patient very hard of hearing. Communicated via writing on board. When asked if something bothering him he states everything, complains of hurting all over. No specific complaints, complain of cough. Inquiring about what time he will be transferred tomorrow so he can update his family. Appeared frustrated about going to main campus and then had to come back. Current Facility-Administered Medications Medication Dose Route Frequency NaCl 0.9% iv flush bag 20 mL INTRAVENOUS PRN piperacillin-tazobactam iv piggyback 3.375 g in dextrose (iso-osmotic) 50 mL (ZOSYN) 3.375 g INTRAVENOUS q 6 H atorvastatin 20 mg tab(s) (LIPITOR) 20 mg ORAL AT BEDTIME acetaminophen 650 mg tab(s) (TYLENOL) 650 mg ORAL q 6 H PRN sodium chloride 0.9 % (flush) 2-10 mL (BD POSIFLUSH) 2-10 mL INTRAVENOUS DIRECTED PRN And perflutren lipid microspheres 1.1 mg/mL 1.3 mL injection (DEFINITY) 1.3 mL INTRAVENOUS DIRECTED PRN guaiFENesin 600 mg ER tab(s) (MUCINEX) 600 mg ORAL q 12 H albuterol 2.5 mg /3 mL (0.083 %) 2.5 mg (PROVENTIL) 2.5 mg INHALATION QID budesonide 0.5 mg/2 mL 0.5 mg (PULMICORT) 0.5 mg INHALATION BID gabapentin 600 mg cap(s) (NEURONTIN) 600 mg ORAL TID metoprolol succinate ER 25 mg tab(s) (TOPROL XL) 25 mg ORAL DAILY Objective PHYSICAL EXAM: BP 119/80 Pulse 73 Temp (Src) 97.8 (Temporal) Resp 20 Ht 5' 10 (1.78m) Wt 162 lb 0.6 oz (73.5kg) SpO2 94% BMI 23.25 kg/(m2). O2 Therapy: Room Air Physical Exam Performed Alert Very very hard of hearing CV RRR Lungs scattered crackles, poor inspiratory effort Abdomen soft No lower extremity edema Lines, Drains, and Airways Line Duration Peripheral 10/27/24 0508 Left Wrist 22 Gauge 1 day Drain Duration External Collection Device 10/24/24 2300 3 days Reviewed lines and needs to be continued: REASONS: Intravenous antibiotics DATA: Diagnostic tests reviewed for today's visit: Most recent imaging CBC, Coags, BMP, Mg, Phos Recent Labs 10/28/24 0953 10/27/24 0629 10/26/24 0632 WBC 10.74 13.32* 13.40* HB 11.6* 11.2* 10.9* HCT 35.4* 34.5* 32.9* PLT 394 391 417* NA 141 134* 136 K 3.7 3.7 3.9 CHLOR 107 103 102 CO2 24 22 24 BUN 9 8* 9 CREAT 0.78 0.54* 0.60* GLUC 117* 136* 114* CA 8.7 8.3* 8.7 MG 2.2 2.1 2.1 Liver Function, Amylase, AND Lipase Recent Labs 10/25/24 1704 LACT 2.0 HOSPITAL COURSE: Stevie Angeles is a 74 year old male presented with past medical history of AAA, A-fib (postop in October 2023, not on anticoagulant), COPD, hypertension, right lower lung cancer SP RLL lobectomy in October 2023, prostate cancer SP XRT, presented to ED on 10/24/2024 with elevated heart rate. Patient was at his PCP office for follow-up visit, he noted to have elevated heart rate 170, patient reported shortness of breath. He also reports chronic cough noticed in the worsening of cough and productive of sputum. Patient developed A-fib RVR in October 2023 after right lower Lobectomy. In ED BP 83/55, elevated heart rate. Patient was in SVT, he was given adenosine, converted to A-fib and then to sinus rhythm. WBC 12.07, hemoglobin 11.8, platelets 448. Magnesium 1.6 rest of BMP unremarkable. Troponin 39, then 35 and 39. CTA chest, thick-walled right upper lobe cavity mass is noted with an associated air-fluid level. May be infectious/inflammatory process. Malignancy not excluded. Mediastinal lymphadenopathy. He received 612 mg of adenosine by EMS. In ED patient was given gabapentin, IV Lopressor, p.o. Lopressor. He was given 1 L normal saline bolus, IV vancomycin and Zosyn. Patient admitted to telemetry for SVT in setting of paroxysmal A-fib. Patient converted to A-fib After receiving adenosine and then converted to sinus rhythm after receiving IV Lopressor and p.o. Lopressor. Right upper lobe cavity mass, pulmonology consulted, plan for bronchoscopy and biopsy at [facility]. Patient was also evaluated by cardiology for SVT. Metoprolol dose was increased to 25 mg twice daily. Patient was continued on IV vancomycin and Zosyn. Evaluated by pulmonary and ID. 10/25/2024 overnight patient developed hypotension, 500 cc of normal saline bolus given. Assessment AND Plan Paroxysmal atrial fibrillation (HCC) Present on Admission: Yes HR of 170s at PCP office, given 6 AND 12 mg of Adenosine by EMS for possible SVT Converted to NSR after IV and PO Lopressor HsT 39, 35, 39 H/o post-op afib, not on rate controlling meds or AC Cardiology consulted, started on metoprolol. Anticoagulant contraindicated due to increased bleeding risk. Discontinue Lovenox Echo, LV normal size, EF 55%. LV diastolic function was not evaluated due to A-fib. Right ventricle normal size, right ventricular systolic function normal. Left atrial cavity mildly dilated. No significant valvular abnormalities. Visualized aorta dilated maximal dimension 4.5 cm. 1+ tricuspid regurgitation. Cancer of lower lobe of right lung (HCC) Present on Admission: Yes Cavitary lesion of lung Present on Admission: Yes H/o cancer of RLL s/p lobectomy in 10/2023, at that time appeared more abscess and chemotherapy was not recommended CTA chest shows thick-walled right upper lobe cavitary mass is noted with an associated air-fluid level. This may be an infectious/inflammatory process as it was not present on the exam from 05/08/2024. Malignancy is not excluded. Mediastinal lymphadenopathy may be reactive. WBC 12.07 w/LS, trended up to 19, now improved to 10.74. Blood cultures no growth. Sputum cultures growing E. coli. Urine Legionella negative, HIV negative, mycoplasma negative. MRSA nasal swab negative. Was on vancomycin and Zosyn, vancomycin stopped, Zosyn continued. Procalcitonin 0.21, MRSA not detected Pulmonary consult appreciated ID consulted Heme-onc follow-up outpatient Transfer for bronchoscopy planned on Monday. Anemia Present on Admission: Yes Hgb 11.8 on admit, baseline ~12-13 HANDH stable Mixed hyperlipidemia Present on Admission: Yes Cont statin Infrarenal abdominal aortic aneurysm (AAA) without rupture Present on Admission: Yes Stable Prostate cancer (HCC) Present on Admission: Yes S/p XRT Stage 1 mild COPD by GOLD classification (HCC) Present on Admission: Yes No s/s of exacerbation Cont home inhaler Lung abscess (HCC) Present on Admission: Yes Sepsis (HCC) Present on Admission: Yes Malignant neoplasm of upper lobe of right lung (HCC) Present on Admission: Yes S/P lobectomy of lung Present on Admission: Status not on file Thoracic lymphadenopathy Present on Admission: Status not on file Ex-smoker Present on Admission: Yes Medication and Non-Pharmacologic VTE Prophylaxis/Anticoagulants 10/24/24 2245 activity - mobilize patient ([place], [place]) VTE Prophylaxis: VTE prophylaxis appropriate Disposition: To be determined Plan of care discussed with Provider, RN, Patient Plan communicated to: Patient SIGNATURE: Syed Lei MD, MD PATIENT NAME: Stevie Angeles DATE:10/28/24 TIME:1:20 PM CONSULT PROG Observed: 10/28/2024 12:56 PM Status: COMPLETED Source: [facility] HNO ID: [id number] Author: MAUREEN SHERMAN RPh Service: Pharmacy Author Type: Pharmacist Type: Consult Progress Note Filed: 10/28/2024 12:56 Note Text: PHARMACY VANCOMYCIN DOSING NOTE Patient Name: Stevie Angeles Admission Date: 10/24/2024 Date of Consult: 10/28/2024 Time of Consult: 12:56 PM RECOMMENDATIONS/PLAN: Pharmacy consulted for vancomycin dosing for Stevie Angeles, a 74 year old male. Vancomycin therapy has been discontinued. Vancomycin level(s) have been discontinued: Yes. The pharmacy vancomycin dosing service will sign off. Thank you for allowing us to participate in this patient's care. Please contact pharmacy if there are questions. Maureen Sherman [facility] CONSULT PROG Observed: 10/28/2024 12:52 PM Status: COMPLETED Source: [facility] HNO ID: [id number] Author: KURT PEREIRA MD Service: Infectious Disease Author Type: Physician Type: Consult Progress Note Filed: 10/28/2024 12:54 Note Text: INFECTIOUS DISEASE PROGRESS NOTE Patient Name: Stevie Angeles INTERVAL HISTORY: Cough present. Feels tired. No fevers Patient Active Hospital Problem List: Paroxysmal atrial fibrillation (HCC) Date Noted: 09/11/2023 Mixed hyperlipidemia Date Noted: 06/23/2010 Infrarenal abdominal aortic aneurysm (AAA) without rupture Date Noted: 02/08/2021 Prostate cancer (HCC) Date Noted: 09/11/2023 Cancer of lower lobe of right lung (HCC) Date Noted: 11/15/2023 Stage 1 mild COPD by GOLD classification (HCC) Date Noted: 11/17/2023 Lung abscess (HCC) Date Noted: 11/17/2023 Cavitary lesion of lung Date Noted: 10/24/2024 Anemia Date Noted: 10/24/2024 Sepsis (HCC) Date Noted: 10/25/2024 Malignant neoplasm of upper lobe of right lung (HCC) Date Noted: 10/25/2024 S/P lobectomy of lung Date Noted: 10/25/2024 Thoracic lymphadenopathy Date Noted: 10/25/2024 Ex-smoker Date Noted: 10/25/2024 ASSESSMENT: Stevie Angeles is a 74 year old male with tachycardia and leukocytosis, CT of the chest revealed thick-walled right upper lobe cavitary mass is noted with an associated air-fluid level. Differential includes primary lung abscess, could potentially be from aspiration and poor dentition versus malignancy. Plan: Suspect superinfected cavitary mass which could have been malignant. Plan on performing bronchoscopy/EBUS at [facility] on 10/29. Will continue with empiric piperacillin tazobactam and can stop vancomycin Follow-up on bronchial cultures and pathology from bronchoscopy. Will follow-up on sputum culture collected today. For now pending Legionella and Streptococcus pneumonia urine antigen, pending mycoplasma pneumonia PCR on sputum. NR HIV 1/2 and pending TB QuantiFERON gold. I have reviewed and interpreted all lab test imaging studies and documentations from other healthcare providers I am monitoring antibiotics for side effects and toxicity MEDICATIONS: reviewed. Current Facility-Administered Medications Medication Dose Route Frequency NaCl 0.9% iv flush bag 20 mL INTRAVENOUS PRN piperacillin-tazobactam iv piggyback 3.375 g in dextrose (iso-osmotic) 50 mL (ZOSYN) 3.375 g INTRAVENOUS q 6 H vancomycin dosing and monitoring per pharmacy OTHER As Directed atorvastatin 20 mg tab(s) (LIPITOR) 20 mg ORAL AT BEDTIME acetaminophen 650 mg tab(s) (TYLENOL) 650 mg ORAL q 6 H PRN sodium chloride 0.9 % (flush) 2-10 mL (BD POSIFLUSH) 2-10 mL INTRAVENOUS DIRECTED PRN And perflutren lipid microspheres 1.1 mg/mL 1.3 mL injection (DEFINITY) 1.3 mL INTRAVENOUS DIRECTED PRN guaiFENesin 600 mg ER tab(s) (MUCINEX) 600 mg ORAL q 12 H albuterol 2.5 mg /3 mL (0.083 %) 2.5 mg (PROVENTIL) 2.5 mg INHALATION QID budesonide 0.5 mg/2 mL 0.5 mg (PULMICORT) 0.5 mg INHALATION BID gabapentin 600 mg cap(s) (NEURONTIN) 600 mg ORAL TID metoprolol succinate ER 25 mg tab(s) (TOPROL XL) 25 mg ORAL DAILY vancomycin iv piggyback 1.25 g in D5W 250 mL (VANCOCIN) 1.25 g INTRAVENOUS q 12 HR PHYSICAL EXAM: Vital signs: BP 119/80 Pulse 73 Temp 36.6 ?C (97.8 ?F) (Temporal) Resp 20 Ht 177.8 cm (5' 10) Wt 73.5 kg (162 lb 0.6 oz) SpO2 94% BMI 23.25 kg/m? Temp (24hrs), Av.9 ?C (98.4 ?F), Min:36.6 ?C (97.8 ?F), Max:37.1 ?C (98.7 ?F) General: alert, oriented, NAD Lungs: bilaterally clear to auscultation Heart: regular rate and rhythm Abdomen: soft, non tender, non distended, BS+ Extremities: no edema No rashes No joint inflammation Neck supple Lines ok No CVAT Lines, Drains, and Airways Line Duration Peripheral 10/27/24 0508 Left Wrist 22 Gauge 1 day Drain Duration External Collection Device 10/24/24 2300 3 days Labs: Recent Labs 10/28/24 0953 10/27/24 0629 10/26/24 0845 10/26/24 0632 10/25/24 1704 WBC 10.74 13.32* -- 13.40* -- HB 11.6* 11.2* -- 10.9* -- PLT 394 391 -- 417* -- NA 141 134* -- 136 -- K 3.7 3.7 -- 3.9 -- CO2 24 22 -- 24 -- BUN 9 8* -- 9 -- CREAT 0.78 0.54* -- 0.60* -- LACT -- -- -- -- 2.0 VANCORA 11.9 -- 8.6* -- -- Microbiology data: reviewed Imaging data: reviewed Kurt Pereira MD Pager: Date of service: 10/28/2024 Time of service: 12:52 PM This note is not final until Authenticated by responsible provider. CONSULT PROG Observed: 10/28/2024 11:00 AM Status: COMPLETED Source: [facility] HNO ID: [id number] Author: MAUREEN SHERMAN [facility] Service: Pharmacy Author Type: Pharmacist Type: Consult Progress Note Filed: 10/28/2024 13:01 Note Text: Attestation signed by Maureen Sherman RPh at 10/28/2024 1:01 PM Maureen Sherman RPh PHARMACY VANCOMYCIN DOSING NOTE Patient Name: Stevie Angeles Admission Date: 10/24/2024 Date of Consult: 10/28/2024 Time of Consult: 11:00 AM Indication: Respiratory infection Goal Range: 15-20 mcg/mL RECOMMENDATIONS/PLAN: Pharmacy consulted for vancomycin dosing for Stevie Angeles, a 74 year old male. 1. Patient is currently ordered Vancomycin 1.25 g IV q12h. Today is day 5 of therapy. 2. The most recent vancomycin level was 11.9 mcg/mL drawn at 0953 on 10/28. This is a 10.5 hour level on the 5th day of therapy. 3. The present dose of vancomycin is the recommended dosage for this patient at this time. Continue therapy as prescribed. 4. The next vancomycin level will be ordered for 10/30 unless clinically indicated sooner. (Pharmacy will order) 5. S. aureus nasal PCR swab ordered: MRSA was not detected. We will follow patient renal function, vancomycin levels and doses with you during the course of therapy. Additional recommendations will appear in follow up notes. If you have any questions, please contact pharmacy at [phone]. Age: [age] year old Allergies: ALLERGIES No Known Allergies Last 3 Encounter Wt Readings: Date: Wt: 10/24/2024 73.5 kg (162 lb 0.6 oz) 10/24/2024 71.6 kg (157 lb 11.8 oz) 09/11/2024 79.2 kg (174 lb 9.7 oz) Last 1 Encounter Ht Readings: Date: Ht: 10/24/2024 177.8 cm (5' 10) CrCl: 88 mL/min Temp (24hrs), Av ?C (98.6 ?F), Min:36.9 ?C (98.4 ?F), Max:37.1 ?C (98.7 ?F) - Current Temp: 37.1 ?C (98.7 ?F) Labs BUN (mg/dL) Date Value 10/28/2024 9 10/27/2024 8 (L) 10/26/2024 9 Creatinine (mg/dL) Date Value 10/28/2024 0.78 10/27/2024 0.54 (L) 10/26/2024 0.60 (L) WBC (k/uL) Date Value 10/28/2024 10.74 10/27/2024 13.32 (H) 10/26/2024 13.40 (H) Vancomycin Levels: Vancomycin (ug/mL) Date/Time Value 10/28/2024 0953 11.9 10/26/2024 0845 8.6 (L) Apryl Guerrero RPh BAS METAB 2000 PNL SERPL Collected: 02/2024 9:53 AM Status: F Source: [facility] Order Comment: Specimen Type : BLOOD SPECIMEN Ordering Facility: [facility] Address: [address] [place] [address] TYPE CODE TESTS RESULT OUT OF RANGE REFERENCE UNITS LAB 2345-7(LOINC) Glucose SerPl-mCnc 117 High 74-99 mg/dL Result Comment: The [place] [employer] (ADA) provides guidance for cutoff values for fasting glucose and random glucose. The ADA defines fasting as no caloric intake for at least 8 hours. Fasting plasma glucose results between 100 to 125 mg/dL indicate increased risk for diabetes (prediabetes). Fasting plasma glucose results greater than or equal to 126 mg/dL meet the criteria for diagnosis of diabetes. In the absence of unequivocal hyperglycemia, results should be confirmed by repeat testing. In a patient with classic symptoms of hyperglycemia or hyperglycemic crisis, random plasma glucose results greater than or equal to 200 mg/dL meet the criteria for diagnosis of diabetes. Reference: Standards of Medical Care in Diabetes 2016, [place] [employer]. Diabetes Care. 2016.39(Suppl 1). LAB 3094-0(LOINC) BUN SerPl-mCnc 9 9-24 mg/dL LAB 2160-0(LOINC) Creat SerPl-mCnc 0.78 0.73-1.22 mg/dL LAB 2951-2(LOINC) Sodium SerPl-sCnc 141 136-144 mmol/L LAB 2823-3(LOINC) Potassium SerPl-sCnc 3.7 3.7-5.1 mmol/L LAB 2075-0(LOINC) Chloride SerPl-sCnc 107 98-107 mmol/L LAB 2027-9(LOINC) CO2 SerPl-sCnc 24 22-30 mmol/L LAB 80677-7(LOINC) Anion Gap SerPl-sCnc 10 8-15 mmol/L LAB 90242-4(LOINC) Calcium SerPl-mCnc 8.7 8.5-10.2 mg/dL LAB 62386-8(LOINC) eGFRcr SerPlBld CKD-EPI 2020 95 >=60 mL/min/1. 73m??? Result Comment: Estimated Gl omerular Filtration Rate (eGFR) is calculated using the 2020 CKD-EPI creatinine equation. This equation utilizes serum creatinine, sex, and age as parameters. The creatinine assay has traceable calibration to isotope dilution-mass spectrometry. Refer to KDIGO guidelines for clinical interpretation. In patients with unstable renal function, e.g. those with acute kidney injury, the eGFR may not accurately reflect actual GFR. Performed By: #### 37773-2, 62354-1, 14823-3, 6-4 #### [facility] CLIA [id number] [address] MAGNESIUM SERPL-MCNC Collected: 10/28/2024 9:53 AM S tatus: F Source: [facility] Order Comment: Specimen Type : BLOOD SPECIMEN Ordering Facility: [facility] Address: [address] [place] [address] TYPE CODE TESTS RESULT OUT OF RANGE REFERENCE UNITS LAB 27044-0([facility]) Magnesium SerPl-mCnc 2.2 1.7-2.3 mg/dL Performed By: #### 45836-4, 38947-2, 24884-1, 2275-4 #### [facility] CLIA [id number] [address] IRON+TIBC PNL SERPL Collected: 10/28/2024 9:[address] atus: F Source: [facility] Order Comment: Specimen Type : BLOOD SPECIMEN Ordering Facility: [facility] Address: [address] [place] [address] TYPE CODE TESTS RESULT OUT OF RANGE REFERENCE UNITS LAB 2498-4(LOINC) Iron SerPl-mCnc 17 Low 41-186 ug/dL LAB 2500-7(LOINC) TIBC SerPl-mCnc 133 Low 232-386 ug/dL LAB 34299-9(LOINC) Iron/TIBC SerPl-sRto 12.8 Low 15.0-57.0 % Performed By: #### 96036-5, 05252-9, 13373-6, 6-4 #### [facility] CLIA [id number] [address] FERRITIN SERPL-MCNC Collected: 10/28/2024 9:[address] atus: F Source: [facility] Order Comment: Specimen Type : BLOOD SPECIMEN Ordering Facility: [facility] Address: [address] [place], [place] [id number] TYPE CODE TESTS RESULT OUT OF RANGE REFERENCE UNITS LAB 6-4(INC) Ferritin SerPl-mCnc 1133.0 High 30.3-565.7 ng/mL Performed By: #### 29617-5, 69666-0, 13109-0, 6-4 #### [facility] CLIA [id number] [address] CBC PNL BLD AUTO Collected: 10/28/2024 9:53 AM Statu s: F Source: [facility] Order Comment: Specimen Type : BLOOD SPECIMEN Ordering Facility: [facility] Address: [address] [place] [address] TYPE CODE TESTS RESULT OUT OF RANGE REFERENCE UNITS LAB 6690-2(LOINC) WBC # Bld Auto 10.74 3.70-11.00 k/uL LAB 789-8(LOINC) RBC # Bld Auto 3.74 Low 4.20-6.00 m/uL LAB 718-7(LOINC) Hgb Bld-mCnc 11.6 Low 13.0-17.0 g/dL LAB 4544-3(LOINC) Hct VFr Bld Auto 35.4 Low 39.0-51.0 % LAB 787-2(LOINC) MCV RBC Auto 94.7 80.0-100.0 fL LAB 785-6(LOINC) MCH RBC Qn Auto 31.0 26.0-34.0 pg LAB 786-4(LOINC) MCHC RBC Auto-mCnc 32.8 30.5-36.0 g/dL LAB 81238-4(LOINC) RDW RBC-Rto 14.6 11.5-15.0 % LAB 777-3(LOINC) Platelet # Bld Auto 394 150-400 k/uL LAB 42266-4(LOINC) PMV Bld Auto 8.6 Low 9.0-12.7 fL LAB 771-6(LOINC) nRBC # Bld Auto <0.01 <0.01 k/uL Performed By: #### 35847-4 # ### [facility] CLIA [id number] [address] VANCOMYCIN RAND SERPL-MCNC Collected: 10/28/2024 9:53 AM Status: F Source: [facility] Order Comment: Specimen Type : BLOOD SPECIMEN Ordering Facility: [facility] Address: [address] [place] [address] TYPE CODE TESTS RESULT OUT OF RANGE REFERENCE UNITS LAB 4091-5([facility]) Vancomycin [place] SerPl-mCnc 11.9 10.0-20.0 ug/mL Result Comment: Reference ra nges and high/low indicator flags are provided as general guidelines only. The treating physician must determine appropriate target levels/dosing based on the specific clinical situation. Performed By: #### 4091-5 ## ## [facility] CLIA [id number] [address] PROGRESS Observed: 10/27/2024 12:56 PM Status: COMPLETED Source: [facility] HNO ID: [id number] Author: SYED LEI MD Service: Hospital Medicine Author Type: Physician Type: Progress Notes Filed: 10/27/2024 12:58 Note Text: DEPARTMENT OF HOSPITAL MEDICINE PROGRESS NOTE SERVICE DATE: 10/27/2024 SERVICE TIME: 12:56 PM Hospital Medicine/Primary Attending: Syed Lei,* NIGHT AND WEEKEND COVERAGE: [facility]: Days: [phone], please page attending physician. Nights: [phone], please page [facility] Hospitalist Night coverage pager [phone]. Subjective INTERVAL HPI: Seen and examined, patient was resting. No new complaints. Complains of cough, feels tired and weak. Denies nausea, vomiting or abdominal pain. Current Facility-Administered Medications Medication Dose Route Frequency NaCl 0.9% iv flush bag 20 mL INTRAVENOUS PRN piperacillin-tazobactam iv piggyback 3.375 g in dextrose (iso-osmotic) 50 mL (ZOSYN) 3.375 g INTRAVENOUS q 6 H vancomycin dosing and monitoring per pharmacy OTHER As Directed atorvastatin 20 mg tab(s) (LIPITOR) 20 mg ORAL AT BEDTIME acetaminophen 650 mg tab(s) (TYLENOL) 650 mg ORAL q 6 H PRN sodium chloride 0.9 % (flush) 2-10 mL (BD POSIFLUSH) 2-10 mL INTRAVENOUS DIRECTED PRN And perflutren lipid microspheres 1.1 mg/mL 1.3 mL injection (DEFINITY) 1.3 mL INTRAVENOUS DIRECTED PRN guaiFENesin 600 mg ER tab(s) (MUCINEX) 600 mg ORAL q 12 H albuterol 2.5 mg /3 mL (0.083 %) 2.5 mg (PROVENTIL) 2.5 mg INHALATION QID budesonide 0.5 mg/2 mL 0.5 mg (PULMICORT) 0.5 mg INHALATION BID gabapentin 600 mg cap(s) (NEURONTIN) 600 mg ORAL TID metoprolol succinate ER 25 mg tab(s) (TOPROL XL) 25 mg ORAL DAILY enoxaparin 70 mg injection (LOVENOX) 1 mg/kg/dose SUBCUTANEOUS q 12 HR vancomycin iv piggyback 1.25 g in D5W 250 mL (VANCOCIN) 1.25 g INTRAVENOUS q 12 HR Objective PHYSICAL EXAM: BP 126/63 Pulse 74 Temp (Src) 98.3 (Temporal) Resp 18 Ht 5' 10 (1.78m) Wt 162 lb 0.6 oz (73.5kg) SpO2 94% BMI 23.25 kg/(m2). O2 Therapy: Room Air Physical Exam Performed Elderly male, chronically ill-appearing Very very hard of hearing CV RRR Lungs scattered crackles, poor inspiratory effort Abdomen soft No lower extremity edema Lines, Drains, and Airways Line Duration Peripheral 10/27/24 0508 Left Wrist 22 Gauge <1 day Drain Duration External Collection Device 10/24/24 2300 2 days Reviewed lines and needs to be continued: REASONS: Intravenous antibiotics DATA: Diagnostic tests reviewed for today's visit: Most recent imaging CBC, Coags, BMP, Mg, Phos Recent Labs 10/27/24 0629 10/26/24 0632 10/25/24 0537 WBC 13.32* 13.40* 19.10* HB 11.2* 10.9* 12.1* HCT 34.5* 32.9* 37.7* PLT 391 417* 457* NA 134* 136 139 K 3.7 3.9 4.8 CHLOR 103 102 102 CO2 22 24 24 BUN 8* 9 9 CREAT 0.54* 0.60* 0.70* GLUC 136* 114* 108* CA 8.3* 8.7 8.7 MG 2.1 2.1 2.3 Liver Function, Amylase, AND Lipase Recent Labs 10/25/24 1704 10/24/24 1600 TPROT -- 6.0* ALB -- 2.8* ALT -- 52 AST -- 28 ALKPHOS -- 104 TBILI -- 0.3 LIPASE -- 19 LACT 2.0 -- HOSPITAL COURSE: Stevie Angeles is a 74 year old male presented with past medical history of AAA, A-fib (postop in October 2023, not on anticoagulant), COPD, hypertension, right lower lung cancer SP RLL lobectomy in October 2023, prostate cancer SP XRT, presented to ED on 10/24/2024 with elevated heart rate. Patient was at his PCP office for follow-up visit, he noted to have elevated heart rate 170, patient reported shortness of breath. He also reports chronic cough noticed in the worsening of cough and productive of sputum. Patient developed A-fib RVR in October 2023 after right lower Lobectomy. In ED BP 83/55, elevated heart rate. Patient was in SVT, he was given adenosine, converted to A-fib and then to sinus rhythm. WBC 12.07, hemoglobin 11.8, platelets 448. Magnesium 1.6 rest of BMP unremarkable. Troponin 39, then 35 and 39. CTA chest, thick-walled right upper lobe cavity mass is noted with an associated air-fluid level. May be infectious/inflammatory process. Malignancy not excluded. Mediastinal lymphadenopathy. He received 612 mg of adenosine by EMS. In ED patient was given gabapentin, IV Lopressor, p.o. Lopressor. He was given 1 L normal saline bolus, IV vancomycin and Zosyn. Patient admitted to telemetry for SVT in setting of paroxysmal A-fib. Patient converted to A-fib After receiving adenosine and then converted to sinus rhythm after receiving IV Lopressor and p.o. Lopressor. Right upper lobe cavity mass, pulmonology consulted, plan for bronchoscopy and biopsy at [facility]. Patient was also evaluated by cardiology for SVT. Metoprolol dose was increased to 25 mg twice daily. Patient was continued on IV vancomycin and Zosyn. Evaluated by pulmonary and ID. 10/25/2024 overnight patient developed hypotension, 500 cc of normal saline bolus given. Assessment AND Plan Paroxysmal atrial fibrillation (HCC) Present on Admission: Yes HR of 170s at PCP office, given 6 AND 12 mg of Adenosine by EMS for possible SVT Converted to NSR after IV and PO Lopressor HsT 39, 35, 39 H/o post-op afib, not on rate controlling meds or AC Cardiology consulted, started on metoprolol. Anticoagulant contraindicated due to increased bleeding risk. Currently on Lovenox Echo, LV normal size, EF 55%. LV diastolic function was not evaluated due to A-fib. Right ventricle normal size, right ventricular systolic function normal. Left atrial cavity mildly dilated. No significant valvular abnormalities. Visualized aorta dilated maximal dimension 4.5 cm. 1+ tricuspid regurgitation. Cancer of lower lobe of right lung (HCC) Present on Admission: Yes Cavitary lesion of lung Present on Admission: Yes H/o cancer of RLL s/p lobectomy in 10/2023, at that time appeared more abscess and chemotherapy was not recommended CTA chest shows thick-walled right upper lobe cavitary mass is noted with an associated air-fluid level. This may be an infectious/inflammatory process as it was not present on the exam from 05/08/2024. Malignancy is not excluded. Mediastinal lymphadenopathy may be reactive. WBC 12.07 w/LS, trended up to 19 Cont Vanc/Zosyn Procalcitonin 0.21, MRSA not detected Pulmonary consult appreciated ID consulted Blood cultures no growth Heme-onc follow-up outpatient Transferred for bronchoscopy planned on Monday. Anemia Present on Admission: Yes Hgb 11.8 on admit, baseline ~12-13 Monitor Mixed hyperlipidemia Present on Admission: Yes Cont statin Infrarenal abdominal aortic aneurysm (AAA) without rupture Present on Admission: Yes Stable Prostate cancer (HCC) Present on Admission: Yes S/p XRT Stage 1 mild COPD by GOLD classification (HCC) Present on Admission: Yes No s/s of exacerbation Cont home inhaler Lung abscess (HCC) Present on Admission: Yes Sepsis (HCC) Present on Admission: Yes Malignant neoplasm of upper lobe of right lung (HCC) Present on Admission: Yes S/P lobectomy of lung Present on Admission: Status not on file Thoracic lymphadenopathy Present on Admission: Status not on file Ex-smoker Present on Admission: Yes Medication and Non-Pharmacologic VTE Prophylaxis/Anticoagulants Anticoagulant AND Antiplatelet Medications (From admission, onward) Start Dose Route Frequency Last Action Ordered Stop 10/25/24 1100 enoxaparin 70 mg injection (LOVENOX) (enoxaparin injection (LOVENOX)) 1 mg/kg/dose SQ EVERY 12 HOURS Given, 10/27 1129 10/25/24 1028 10/29/24 1059 10/24/24 2245 activity - mobilize patient ([place], [place]) VTE Prophylaxis: VTE prophylaxis appropriate Disposition: To be determined Plan of care discussed with Provider, RN, Patient Plan communicated to: Patient SIGNATURE: Syed Lei MD, MD PATIENT NAME: Stevie Angeles DATE: October 27, 2024 TIME: 12:58 PM BAS METAB 1999 PNL SERPL Collected: 6:29 AM Status: F Source: [facility] Order Comment: Specimen Type : BLOOD SPECIMEN Ordering Facility: [facility] Address: [address] [place] [address] TYPE CODE TESTS RESULT OUT OF RANGE REFERENCE UNITS LAB 2345-7(LOINC) Glucose SerPl-nc 136 High 74-99 mg/dL Result Comment: The [place] [employer] (ADA) provides guidance for cutoff values for fasting glucose and random glucose. The ADA defines fasting as no caloric intake for at least 8 hours. Fasting plasma glucose results between 100 to 125 mg/dL indicate increased risk for diabetes (prediabetes). Fasting plasma glucose results greater than or equal to 126 mg/dL meet the criteria for diagnosis of diabetes. In the absence of unequivocal hyperglycemia, results should be confirmed by repeat testing. In a patient with classic symptoms of hyperglycemia or hyperglycemic crisis, random plasma glucose results greater than or equal to 200 mg/dL meet the criteria for diagnosis of diabetes. Reference: Standards of Medical Care in Diabetes 2016, [place] [employer]. Diabetes Care. 2016.39(Suppl 1). LAB 3094-0(LOINC) BUN SerPl-mCnc 8 Low 9-24 mg/dL LAB 2160-0(LOINC) Creat SerPl-mCnc 0.54 Low 0.73-1.22 mg/dL LAB 2951-2(LOINC) Sodium SerPl-sCnc 134 Low 136-144 mmol/L LAB 2823-3(LOINC) Potassium SerPl-sCnc 3.7 3.7-5.1 mmol/L LAB 2075-0(LOINC) Chloride SerPl-sCnc 103 98-107 mmol/L LAB 2027-9(LOINC) CO2 SerPl-sCnc 22 22-30 mmol/L LAB 49520-5(LOINC) Anion Gap SerPl-sCnc 9 8-15 mmol/L LAB 35632-5(LOINC) Calcium SerPl-mCnc 8.3 Low 8.5-10.2 mg/dL LAB 69058-9(LOINC) eGFRcr SerPlBld CKD-EPI 2020 106 >=60 mL/min/1. 73m??? Result Comment: Estimated Gl omerular Filtration Rate (eGFR) is calculated using the 2020 CKD-EPI creatinine equation. This equation utilizes serum creatinine, sex, and age as parameters. The creatinine assay has traceable calibration to isotope dilution-mass spectrometry. Refer to KDIGO guidelines for clinical interpretation. In patients with unstable renal function, e.g. those with acute kidney injury, the eGFR may not accurately reflect actual GFR. Performed By: #### 67926-8, 71055-5 #### [facility] CLIA [id number] [address] [place] [address] [place] MAGNESIUM SERPL-MCNC Collected: 10/27/2024 6:29 AM S tatus: F Source: [facility] Order Comment: Specimen Type : BLOOD SPECIMEN Ordering Facility: [facility] Address: [address] [place] [address] TYPE CODE TESTS RESULT OUT OF RANGE REFERENCE UNITS LAB 98111-3(LOINC) Magnesium SerPl-mCnc 2.1 1.7-2.3 mg/dL Performed By: #### 43541-2, 11924-3 #### [facility] CLIA [id number] [address] CBC PNL BLD AUTO Collected: 10/27/2024 6:29 AM Statu s: F Source: [facility] Order Comment: Specimen Type : BLOOD SPECIMEN Ordering Facility: [facility] Address: [address] [place] [address] TYPE CODE TESTS RESULT OUT OF RANGE REFERENCE UNITS LAB 6690-2([facility]) WBC # Bld Auto 13.32 High 3.70-11.00 k/uL LAB 789-8(LOINC) RBC # Bld Auto 3.68 Low 4.20-6.00 m/uL LAB 718-7(LOINC) Hgb Bld-mCnc 11.2 Low 13.0-17.0 g/dL LAB 4544-3(INC) Hct VFr Bld Auto 34.5 Low 39.0-51.0 % LAB 787-2(LOINC) MCV RBC Auto 93.8 80.0-100.0 fL LAB 785-6(LOINC) MCH RBC Qn Auto 30.4 26.0-34.0 pg LAB 786-4(LOINC) MCHC RBC Auto-mCnc 32.5 30.5-36.0 g/dL LAB 97754-8(LOINC) RDW RBC-Rto 14.6 11.5-15.0 % LAB 777-3(LOINC) Platelet # Bld Auto 391 150-400 k/uL LAB 65799-1(LOINC) PMV Bld Auto 8.8 Low 9.0-12.7 fL LAB 771-6(LOINC) nRBC # Bld Auto <0.01 <0.01 k/uL Performed By: #### 95402-9 # ### [facility] CLIA [id number] [address] PROGRESS Observed: 10/26/2024 11:44 AM Status: COMPLETED Source: [facility] HNO ID: [id number] Author: SYED LEI MD Service: Hospital Medicine Author Type: Physician Type: Progress Notes Filed: 10/26/2024 11:57 Note Text: DEPARTMENT OF HOSPITAL MEDICINE PROGRESS NOTE SERVICE DATE: 10/26/2024 SERVICE TIME: 11:44 AM Hospital Medicine/Primary Attending: Syed Lei,* NIGHT AND WEEKEND COVERAGE: [facility] [employer]: Days: [phone], please page attending physician. Nights: [phone], please page [place] Hospitalist Night coverage pager [phone]. Subjective INTERVAL HPI: Seen and examined, patient was resting. States he could not sleep overnight. Complains of cough, feels tired and weak. Denies nausea, vomiting or abdominal pain. Current Facility-Administered Medications Medication Dose Route Frequency NaCl 0.9% iv flush bag 20 mL INTRAVENOUS PRN piperacillin-tazobactam iv piggyback 3.375 g in dextrose (iso-osmotic) 50 mL (ZOSYN) 3.375 g INTRAVENOUS q 6 H vancomycin dosing and monitoring per pharmacy OTHER As Directed atorvastatin 20 mg tab(s) (LIPITOR) 20 mg ORAL AT BEDTIME acetaminophen 650 mg tab(s) (TYLENOL) 650 mg ORAL q 6 H PRN sodium chloride 0.9 % (flush) 2-10 mL (BD POSIFLUSH) 2-10 mL INTRAVENOUS DIRECTED PRN And perflutren lipid microspheres 1.1 mg/mL 1.3 mL injection (DEFINITY) 1.3 mL INTRAVENOUS DIRECTED PRN guaiFENesin 600 mg ER tab(s) (MUCINEX) 600 mg ORAL q 12 H albuterol 2.5 mg /3 mL (0.083 %) 2.5 mg (PROVENTIL) 2.5 mg INHALATION QID budesonide 0.5 mg/2 mL 0.5 mg (PULMICORT) 0.5 mg INHALATION BID gabapentin 600 mg cap(s) (NEURONTIN) 600 mg ORAL TID metoprolol succinate ER 25 mg tab(s) (TOPROL XL) 25 mg ORAL DAILY enoxaparin 70 mg injection (LOVENOX) 1 mg/kg/dose SUBCUTANEOUS q 12 HR vancomycin iv piggyback 1.25 g in D5W 250 mL (VANCOCIN) 1.25 g INTRAVENOUS q 12 HR Objective PHYSICAL EXAM: BP 95/53 Pulse 77 Temp (Src) 99 (Temporal) Resp 16 Ht 5' 10 (1.78m) Wt 162 lb 0.6 oz (73.5kg) SpO2 97% BMI 23.25 kg/(m2). O2 Therapy: Room Air Physical Exam Performed Elderly male, chronically ill-appearing Very hard of hearing CV RRR Lungs scattered crackles, inspiratory effort Abdomen soft Lines, Drains, and Airways Line Duration Peripheral 10/25/24 1146 [facility] Short Right Forearm 22 Gauge <1 day Drain Duration External Collection Device 10/24/24 2300 1 day Reviewed lines and needs to be continued: REASONS: Intravenous antibiotics DATA: Diagnostic tests reviewed for today's visit: Most recent imaging CBC, Coags, BMP, Mg, Phos Recent Labs 10/26/24 0632 10/25/24 0537 10/24/24 1600 WBC 13.40* 19.10* 12.07* HB 10.9* 12.1* 11.8* HCT 32.9* 37.7* 36.8* PLT 417* 457* 448* NA 136 139 140 K 3.9 4.8 3.8 CHLOR 102 102 106 CO2 24 24 25 BUN 9 9 6* CREAT 0.60* 0.70* 0.45* GLUC 114* 108* 91 CA 8.7 8.7 7.8* MG 2.1 2.3 1.6* Liver Function, Amylase, AND Lipase Recent Labs 10/25/24 1704 10/24/24 1600 TPROT -- 6.0* ALB -- 2.8* ALT -- 52 AST -- 28 ALKPHOS -- 104 TBILI -- 0.3 LIPASE -- 19 LACT 2.0 -- HOSPITAL COURSE: Stevie Angeles is a 74 year old male presented with past medical history of AAA, A-fib (postop in October 2023, not on anticoagulant), COPD, hypertension, right lower lung cancer SP RLL lobectomy in October 2023, prostate cancer SP XRT, presented to ED on 10/24/2024 with elevated heart rate. Patient was at his PCP office for follow-up visit, he noted to have elevated heart rate 170, patient reported shortness of breath. He also reports chronic cough noticed in the worsening of cough and productive of sputum. Patient developed A-fib RVR in October 2023 after right lower Lobectomy. In ED BP 83/55, elevated heart rate. Patient was in SVT, he was given adenosine, converted to A-fib and then to sinus rhythm. WBC 12.07, hemoglobin 11.8, platelets 448. Magnesium 1.6 rest of BMP unremarkable. Troponin 39, then 35 and 39. CTA chest, thick-walled right upper lobe cavity mass is noted with an associated air-fluid level. May be infectious/inflammatory process. Malignancy not excluded. Mediastinal lymphadenopathy. He received 612 mg of adenosine by EMS. In ED patient was given gabapentin, IV Lopressor, p.o. Lopressor. He was given 1 L normal saline bolus, IV vancomycin and Zosyn. Patient admitted to telemetry for SVT in setting of paroxysmal A-fib. Patient converted to A-fib After receiving adenosine and then converted to sinus rhythm after receiving IV Lopressor and p.o. Lopressor. Right upper lobe cavity mass, pulmonology consulted, plan for bronchoscopy and biopsy at [facility]. Patient was also evaluated by cardiology for SVT. Metoprolol dose was increased to 25 mg twice daily. Patient was continued on IV vancomycin and Zosyn. Evaluated by pulmonary and ID. 10/25/2024 overnight patient developed hypotension, 500 cc of normal saline bolus given. Assessment AND Plan Paroxysmal atrial fibrillation (HCC) Present on Admission: Yes HR of 170s at PCP office, given 6 AND 12 mg of Adenosine by EMS for possible SVT Converted to NSR after IV and PO Lopressor HsT 39, 35, 39 H/o post-op afib, not on rate controlling meds or AC Cardiology consulted, started on metoprolol. Anticoagulant contraindicated due to increased bleeding risk Echo, LV normal size, EF 55%. LV diastolic function was not evaluated due to A-fib. Right ventricle normal size, right ventricular systolic function normal. Left atrial cavity mildly dilated. No significant valvular abnormalities. Visualized aorta dilated maximal dimension 4.5 cm. 1+ tricuspid regurgitation. Cancer of lower lobe of right lung (HCC) Present on Admission: Yes Cavitary lesion of lung Present on Admission: Yes H/o cancer of RLL s/p lobectomy in 10/2023, at that time appeared more abscess and chemotherapy was not recommended CTA chest shows thick-walled right upper lobe cavitary mass is noted with an associated air-fluid level. This may be an infectious/inflammatory process as it was not present on the exam from 05/08/2024. Malignancy is not excluded. Mediastinal lymphadenopathy may be reactive. WBC 12.07 w/LS, trended up to 19 Cont Vanc/Zosyn Procalcitonin 0.21, MRSA not detected Pulmonary consult appreciated ID consulted Blood cultures no growth Heme-onc follow-up outpatient Anemia Present on Admission: Yes Hgb 11.8 on admit, baseline ~12-13 Monitor Mixed hyperlipidemia Present on Admission: Yes Cont statin Infrarenal abdominal aortic aneurysm (AAA) without rupture Present on Admission: Yes Stable Prostate cancer (HCC) Present on Admission: Yes S/p XRT Stage 1 mild COPD by GOLD classification (HCC) Present on Admission: Yes No s/s of exacerbation Cont home inhaler Lung abscess (HCC) Present on Admission: Yes Sepsis (HCC) Present on Admission: Yes Malignant neoplasm of upper lobe of right lung (HCC) Present on Admission: Yes S/P lobectomy of lung Present on Admission: Status not on file Thoracic lymphadenopathy Present on Admission: Status not on file Ex-smoker Present on Admission: Yes Medication and Non-Pharmacologic VTE Prophylaxis/Anticoagulants Anticoagulant AND Antiplatelet Medications (From admission, onward) Start Dose Route Frequency Last Action Ordered Stop 10/25/24 1100 enoxaparin 70 mg injection (LOVENOX) (enoxaparin injection (LOVENOX)) 1 mg/kg/dose SQ EVERY 12 HOURS Given, 10/26 1105 10/25/24 1028 10/29/24 1059 10/24/24 2245 activity - mobilize patient ([place], [place]) VTE Prophylaxis: VTE prophylaxis appropriate Disposition: To be determined Plan of care discussed with Provider, RN, Patient Plan communicated to: Patient SIGNATURE: Syed Lei MD, MD PATIENT NAME: Stevie Angeles DATE: October 26, 2024 TIME: 11:44 AM CONSULT PROG Observed: 10/26/2024 10:26 AM Status: COMPLETED Source: [facility] HNO ID: [id number] Author: MAUREEN SHERMAN RPh Service: Pharmacy Author Type: Pharmacist Type: Consult Progress Note Filed: 10/26/2024 12:05 Note Text: Attestation signed by Maureen Sherman RPh at 10/26/2024 12:05 PM Maureen Sherman RPh PHARMACY VANCOMYCIN DOSING NOTE Patient Name: Stevie Angeles Admission Date: 10/24/2024 Date of Consult: 10/26/2024 Time of Consult: 10:26 AM Indication: Respiratory infection Goal Range: 15-20 mcg/mL RECOMMENDATIONS/PLAN: Pharmacy consulted for vancomycin dosing for Stevie Angeles, a 74 year old male. 1. Patient is currently ordered Vancomycin 1 g IV q12h. Today is day 3 of therapy. 2. The most recent vancomycin level was 8.6 mcg/mL drawn at 0845 on 10/26/24. This is a 10.5 hour level on the 3rd day of therapy. 3. Will increase vancomycin to 1.25 g with a dosing interval of q12h. 4. The next vancomycin level will be ordered for 10/28/24 unless clinically indicated sooner. (Pharmacy will order) 5. S. aureus nasal PCR swab was ordered and is negative. Per ID note, continue vancomycin. We will follow patient renal function, vancomycin levels and doses with you during the course of therapy. Additional recommendations will appear in follow up notes. If you have any questions, please contact pharmacy at [phone]. Age: [age] year old Allergies: ALLERGIES No Known Allergies Last 3 Encounter Wt Readings: Date: Wt: 10/24/2024 73.5 kg (162 lb 0.6 oz) 10/24/2024 71.6 kg (157 lb 11.8 oz) 09/11/2024 79.2 kg (174 lb 9.7 oz) Last 1 Encounter Ht Readings: Date: Ht: 10/24/2024 177.8 cm (5' 10) CrCl: 114.9 mL/min Temp (24hrs), Av ?C (98.6 ?F), Min:36.5 ?C (97.7 ?F), Max:37.2 ?C (99 ?F) - Current Temp: 37.2 ?C (99 ?F) Labs BUN (mg/dL) Date Value 10/26/2024 9 10/25/2024 9 10/24/2024 6 (L) Creatinine (mg/dL) Date Value 10/26/2024 0.60 (L) 10/25/2024 0.70 (L) 10/24/2024 0.45 (L) WBC (k/uL) Date Value 10/26/2024 13.40 (H) 10/25/2024 19.10 (H) 10/24/2024 12.07 (H) Vancomycin Levels: Vancomycin (ug/mL) Date/Time Value 10/26/2024 0845 8.6 (L) Salma Zelaya [facility] VANCOMYCIN RAND SERPL-MCNC Collected: 10/26/2024 8:45 AM Status: F Source: [facility] Order Comment: Specimen Type : BLOOD SPECIMEN Ordering Facility: [facility] Address: [address] [place] [address] TYPE CODE TESTS RESULT OUT OF RANGE REFERENCE UNITS LAB 4091-5(LOINC) Vancomycin [place] SerPl-mCnc 8.6 Low 10.0-20.0 ug/mL Result Comment: Reference ra nges and high/low indicator flags are provided as general guidelines only. The treating physician must determine appropriate target levels/dosing based on the specific clinical situation. Performed By: #### 4091-5 ## ## [facility] CLIA [id number] [address] [place], [place] [id number] [facility] CBC PNL BLD AUTO Collected: 10/26/2024 6:32 AM Statu s: F Source: [facility] Order Comment: Specimen Type : BLOOD SPECIMEN Ordering Facility: [facility] Address: [address] [place] [address] TYPE CODE TESTS RESULT OUT OF RANGE REFERENCE UNITS LAB 6690-2(LOINC) WBC # Bld Auto 13.40 High 3.70-11.00 k/uL LAB 789-8(LOINC) RBC # Bld Auto 3.52 Low 4.20-6.00 m/uL LAB 718-7(LOINC) Hgb Bld-mCnc 10.9 Low 13.0-17.0 g/dL LAB 4544-3(LOINC) Hct VFr Bld Auto 32.9 Low 39.0-51.0 % LAB 787-2(LOINC) MCV RBC Auto 93.5 80.0-100.0 fL LAB 785-6(LOINC) MCH RBC Qn Auto 31.0 26.0-34.0 pg LAB 786-4(LOINC) MCHC RBC Auto-mCnc 33.1 30.5-36.0 g/dL LAB 28163-5([facility]) RDW RBC-Rto 14.6 11.5-15.0 % LAB 777-3([facility]) Platelet # Bld Auto 417 High 150-400 k/uL LAB 81985-5([facility]) PMV Bld Auto 8.8 Low 9.0-12.7 fL LAB 771-6([facility]) nRBC # Bld Auto <0.01 <0.01 k/uL Performed By: #### 84163-5 # ### [facility] CLIA [id number] [address] [place], [place] [id number] [place] [address] BLOOD TB SCREEN Collected: 10/26/2024 6:32 AM Status : F Source: [facility] Order Comment: Specimen Type : BLOOD SPECIMEN Ordering Facility: [facility] Address: [address] [place] [address] TYPE CODE TESTS RESULT OUT OF RANGE REFERENCE UNITS LAB TBGNIL TB NIL 0.02 <=8.00 IU/mL LAB TBG1AG TB1 AG MINUS NIL 0.00 <0.35 IU/mL LAB TBG2AG TB2 AG MINUS NIL 0.00 <0.35 IU/mL LAB 39409-3([facility] ) M TB tuberc IFN-g Bld Ql Negative LAB TBMITN MITOGEN MINUS NIL 0.82 >=0.50 IU/mL LAB TBGINT TB GAMMA INTERPRETATION Infection with M. tuberculosis complex is unlikely. If latent tuberculosis infection is highly suspected, a negative result does not rule out the infection. Specimens from immunocompromised patients and those <5 years of age may show false negative results. In case of a contact investigation, please repeat 8-12 weeks after a known exposure. Performed By: #### INFTBP ## ## [facility] CLIA [id number] [address] [place] [address] HIV1+2 AB SERPL QL IA Collected: 2024 6:32 AM Status: F Source: [facility] Order Comment: Specimen Type : BLOOD SPECIMEN Ordering Facility: [facility] Address: [address] [place] [address] TYPE CODE TESTS RESULT OUT OF RANGE REFERENCE UNITS LAB 48394-1(LOINC) HIV 1+2 Ab+HIV1 p24 Ag SerPl Ql IA Nonreactive Nonreactive LAB 16272-5(INC) HIV 1 AND 2 Ab SerPlBld IA.rapid Result Comment: Test not ind icated. LAB 23115-3([facility]) HIV IA algorithm interp SerPlBld-Imp Result Comment: No evidence of HIV-1 or HIV-2 infection. Should recent infection be suspected, repeat testing may be considered 2-3 weeks after this draw. [place] Rev. Code 3701.243(E): This information has been disclosed to you from confidential records protected from disclosure by state law. You shall make no further disclosure of this information without the specific, written, and informed release of the individual to whom it pertains or as otherwise permitted by state law. A general authorization for the release of medical or other information is not sufficient for the purpose of the release of HIV test results or diagnoses. Performed By: #### 79675-9 # ### [facility] CLIA [id number] [address] [place] [address] [place] METAB 2000 PNL SERPL Collected: 6:32 AM Status: F Source: [facility] Order Comment: Specimen Type : BLOOD SPECIMEN Ordering Facility: [facility] Address: [address] [place] [address] TYPE CODE TESTS RESULT OUT OF RANGE REFERENCE UNITS LAB 2345-7(INC) Glucose SerPl-mCnc 114 High 74-99 mg/dL Result Comment: The [place] [employer] (ADA) provides guidance for cutoff values for fasting glucose and random glucose. The ADA defines fasting as no caloric intake for at least 8 hours. Fasting plasma glucose results between 100 to 125 mg/dL indicate increased risk for diabetes (prediabetes). Fasting plasma glucose results greater than or equal to 126 mg/dL meet the criteria for diagnosis of diabetes. In the absence of unequivocal hyperglycemia, results should be confirmed by repeat testing. In a patient with classic symptoms of hyperglycemia or hyperglycemic crisis, random plasma glucose results greater than or equal to 200 mg/dL meet the criteria for diagnosis of diabetes. Reference: Standards of Medical Care in Diabetes 2016, [place] [employer] Association. Diabetes Care. 2016.39(Suppl 1). LAB 3094-0(LOINC) BUN SerPl-mCnc 9 9-24 mg/dL LAB 2160-0(LOINC) Creat SerPl-mCnc 0.60 Low 0.73-1.22 mg/dL LAB 2951-2(LOINC) Sodium SerPl-sCnc 136 136-144 mmol/L LAB 2823-3(LOINC) Potassium SerPl-sCnc 3.9 3.7-5.1 mmol/L LAB 2075-0(LOINC) Chloride SerPl-sCnc 102 98-107 mmol/L LAB 202-9(LOINC) CO2 SerPl-sCnc 24 22-30 mmol/L LAB 32640-8(LOINC) Anion Gap SerPl-sCnc 10 8-15 mmol/L LAB 23153-2(LOINC) Calcium SerPl-mCnc 8.7 8.5-10.2 mg/dL LAB 84738-9(LOINC) eGFRcr SerPlBld CKD-EPI 2020 103 >=60 mL/min/1. 73m??? Result Comment: Estimated Gl omerular Filtration Rate (eGFR) is calculated using the 2020 CKD-EPI creatinine equation. This equation utilizes serum creatinine, sex, and age as parameters. The creatinine assay has traceable calibration to isotope dilution-mass spectrometry. Refer to KDIGO guidelines for clinical interpretation. In patients with unstable renal function, e.g. those with acute kidney injury, the eGFR may not accurately reflect actual GFR. Performed By: #### 96738-7, 62344-3 #### [facility] CLIA [id number] [address] [facility] MAGNESIUM SERPL-MCNC Collected: 10/26/2024 6:32 AM S tatus: F Source: [facility] Order Comment: Specimen Type : BLOOD SPECIMEN Ordering Facility: [facility] Address: [address] [place] [address] TYPE CODE TESTS RESULT OUT OF RANGE REFERENCE UNITS LAB 83514-7(LOINC) Magnesium SerPl-mCnc 2.1 1.7-2.3 mg/dL Performed By: #### 15802-9, 33974-7 #### [facility] CLIA [id number] [address] LACTATE BLD-SCNC Collected: 10/25/2024 5:04 PM Statu s: F Source: [facility] Order Comment: Specimen Type : BLOOD SPECIMEN Ordering Facility: [facility] Address: [address] [place] [address] TYPE CODE TESTS RESULT OUT OF RANGE REFERENCE UNITS LAB 50989-7(LOINC) Lactate Bld-sCnc 2.0 0.5-2.2 mmol/L Performed By: #### 76570-7 # ### [facility] CLIA [id number] [address] CONSULT Observed: 10/25/2024 4:15 PM Status: COMPLETED Source: [facility] HNO ID: [id number] Author: ROBIN KNOX MD Service: Cardiovascular Medicine Author Type: Physician Type: Consults Filed: 10/25/2024 16:34 Note Text: . [facility] [place] [facility] Department of Cardiovascular Medicine SECTION OF [facility] Consultation Note Name: Stevie Angeles : 1950 Primary Physician: Praful Su MD Consulting Physician: Haile Barbosa MD Primary Counter Stitcher: SERVICE DATE: October 25, 2024 ADMISSION HISTORY AND PHYSICAL: This is a 74 year old male with PMHx of AAA w/o repair/rupture (most recent abdominal ultrasound performed on 12/19/2023 showed an abdominal aortic aneurysm measuring 4.27 x 4.43 x 4.49 cm at distal and 3.0 x 2.95 x 2.93 cm at mid). There is an abdominal aortic, afib (post op 11/20,not on AC) COPD, HLD, HTN, lung CA (s/p RLL lobectomy 10/2023), and prostate CA (s/p XRT) who presents to ED with elevated HR. Patient was at a follow up visit with his PCP when his HR was noted to be 170. He has chronic shortness of breath and denies any change. He has a chronic cough but has noticed worsening of that and is bringing up a lot of clear-yellow sputum. He denies any chest pain or palpitations. He did have an episode of afib with RVR after RLL lobectomy 10/2023. Has not recurred to his knowledge. He is not on AC or rate controlling medications. He denies recent changes in medications. He also denies fever, chills, abdominal pain, nausea, vomiting, diarrhea, dysuria, or leg swelling. In ED, BP 83/55. WBC 12.07 w/LS. Hgb 11.8. PLT 448. Ca 7.8. Mg 1.6. HsT 39, 35, 39. Blood cultures x 2 IP. CTA chest: Thick-walled right upper lobe cavitary mass is noted with an associated air-fluid level. This may be an infectious/inflammatory process as it was not present on the exam from 05/08/2024. Malignancy is not excluded. Mediastinal lymphadenopathy may be reactive. He was given 6 mg and 12 mg of adenosine by EMS. In ED, he was given gabapentin, IV Lopressor, PO lopressor, 1L NSB, vancomycin, and Zosyn. INITIAL CARDIOLOGY CONSULT ATION: 74-year-old gentleman who by report was in SVT that responded to a second dose of 12 mg of IV adenosine administered by the paramedics en route to the emergency room. Very complicated past medical history including possible recurrence of lung cancer and he had been scheduled for a diagnostic procedure (bronchoscopy with endobronchial biopsy) [facility]. Since admission his telemetry demonstrates episodes of atrial fibrillation, also some episodes that appear to be related to a low atrial ectopic focus, and several strips that are potentially consistent with multifocal atrial tachycardia. However he has not had any episodes of SVT nor sustained atrial dysrhythmias since admission. Past cardiovascular history is notable for a abdominal aortic aneurysm that is being followed, paroxysmal atrial fibrillation not on anticoagulation, essential hypertension. He recently underwent a surveillance of his abdominal aortic aneurysm on 12/19/2023 by abdominal ultrasound imaging demonstrating the following: bAORTA Abdominal aortic aneurysm measuring 4.27 x 4.43 x 4.49cm at distal. Abdominal aortic aneurysm measuring 3.0 x 2.95 x 2.93cm at mid. 11/09/2023 Nuclear Medicine Pharmacological Stress Cardiac Perfusion Study: CONCLUSIONS: 1. SPECT Perfusion Study: Normal. 2. There is no scintigraphic evidence for inducible ischemia. 3. No evidence of scarred myocardium. 4. Left ventricle is normal in size. The left ventricle systolic function is normal. 5. Right ventricle is normal in size. The right ventricle systolic function is normal. 6. This is a low risk scan. Gated Stress IR Gated Rest IR LVEF % 65 69 PAST MEDICAL HISTORY Diagnosis Date Abdominal aortic aneurysm without rupture Elevated PSA Hearing loss HTN (hypertension) Lumbosacral neuritis Malignant neoplasm of prostate (HCC) Other and unspecified hyperlipidemia Prostate cancer (HCC) 2020 xrt at [facility] [place] Smoker former quit 2021 Spinal stenosis of lumbar region with neurogenic claudication PAST SURGICAL HISTORY Procedure Laterality Date COLONOSCOPY 05/28/2008 HERNIA REPAIR HX age 20 PROSTATE BIOPSY HX 2020 REMOVAL OF LUNG,LOBECTOMY Right 11/15/2023 Robotic-assisted right lower lobectomy with right lower lobe bronchoplasty closure of airway and mediastinal and hilar lymph node dissection, intercostal and phrenic nerve block FAMILY HISTORY Problem Relation Age of Onset other (high blood pressure [Other]) Mother Diabetes Mother Hearing Loss Mother Prostate Cancer Other SOCIAL HISTORY[1] Current Facility-Administered Medications Medication Dose Route Frequency NaCl 0.9% iv flush bag 20 mL INTRAVENOUS PRN piperacillin-tazobactam iv piggyback 3.375 g in dextrose (iso-osmotic) 50 mL (ZOSYN) 3.375 g INTRAVENOUS q 6 H vancomycin iv piggyback 1 g in D5W 200 mL (VANCOCIN) 0.015 g/kg/dose INTRAVENOUS q 12 HR vancomycin dosing and monitoring per pharmacy OTHER As Directed atorvastatin 20 mg tab(s) (LIPITOR) 20 mg ORAL AT BEDTIME acetaminophen 650 mg tab(s) (TYLENOL) 650 mg ORAL q 6 H PRN sodium chloride 0.9 % (flush) 2-10 mL (BD POSIFLUSH) 2-10 mL INTRAVENOUS DIRECTED PRN And perflutren lipid microspheres 1.1 mg/mL 1.3 mL injection (DEFINNewsbound) 1.3 mL INTRAVENOUS DIRECTED PRN guaiFENesin 600 mg ER tab(s) (MUCINEX) 600 mg ORAL q 12 H albuterol 2.5 mg /3 mL (0.083 %) 2.5 mg (PROVENTIL) 2.5 mg INHALATION QID budesonide 0.5 mg/2 mL 0.5 mg (PULMICORT) 0.5 mg INHALATION BID gabapentin 600 mg cap(s) (NEURONTIN) 600 mg ORAL TID metoprolol succinate ER 25 mg tab(s) (TOPROL XL) 25 mg ORAL DAILY enoxaparin 70 mg injection (LOVENOX) 1 mg/kg/dose SUBCUTANEOUS q 12 HR NaCl 0.9% 500 mL iv bolus 500 mL INTRAVENOUS ONCE Allergies As of Date: 10/24/2024 (No Known Allergies) Fully Assessed 10/24/2024 REVIEW OF SYSTEMS: Multisystem review was negative except for positives described in history of present illness. Objective PHYSICAL EXAMINATION: BP 84/52 Pulse 81 Temp 36.5 ?C (97.7 ?F) (Temporal) Resp 20 Ht 177.8 cm (5' 10) Wt 73.5 kg (162 lb 0.6 oz) SpO2 95% BMI 23.25 kg/m? General: Well appearing, in no acute distress. No complaints. Skin: No clubbing, no cyanosis. Eyes: Extra ocular movements intact Neck: no palpable thyromegaly. Lungs: Clear to auscultation bilaterally, no wheezing or rhonchi. Cardiovascular: JVP: Less than 6 cm Auscultation: S1-S2 regular rate and rhythm occasional extrasystoles Abdomen: Soft, nontender, bowel sounds normal, no palpable organomegaly, no bruits. Extremities: No peripheral edema . Neuro: Oriented to person, place and time, alert, cooperative LABS REVIEWED: Recent Labs 10/25/24 0537 10/24/24 1600 NA 139 140 K 4.8 3.8 CO2 24 25 BUN 9 6* CREAT 0.70* 0.45* GLUC 108* 91 Recent Labs 10/25/24 0537 10/24/24 1600 MG 2.3 1.6* Recent Labs 10/25/24 0537 10/24/24 1600 WBC 19.10* 12.07* HB 12.1* 11.8* PLT 457* 448* ASSESSMENT AND RECOMMENDATIONS: Diagnosis List: -Paroxysmal atrial fibrillation with contraindications to anticoagulation -Paroxysmal atrial tachycardia -No evidence of inducible cardiac ischemia nor prior myocardial scar and normal LV size and LV systolic function demonstrated on November 20 nuclear medicine pharmacological cardiac perfusion stress test. -Possible recurrence of primary lung cancer scheduled for bronchoscopy with possible endobronchial biopsy to be performed on [facility] Recommendations: - Increase metoprolol succinate to 25 mg p.o. twice daily, spaced 12 hours apart - I share the concerns for his bleeding risk with anticoagulation and we will continue to hold stephie you for consulting cardiology. We will sign off the case at this time. Please call me anytime directly on my cell phone with questions. Robin Knox MD, MPH, [facility] Cardiology Cell [phone] SIGNATURE: Robin Knox MD PATIENT NAME: Stevie Angeles DATE: October 25, 2024 TIME: 4:15 PM PAGER: This document was generated using the assistance of voice recognition software. If there are any errors of spelling, grammar, syntax or meaning, please feel free to contact me directly at anytime. [1] Social History Tobacco Use Smoking status: Former Current packs/day: 0.00 Average packs/day: 1 pack/day for 40.0 years (40.0 ttl pk-yrs) Types: Cigarettes Start date: 07/1981 Quit date: 07/2021 Years since quittin.2 Passive exposure: Past Smokeless tobacco: Never Vaping Use Vaping status: Never Used Substance Use Topics Alcohol use: Not Currently Alcohol/week: 6.0 standard drinks of alcohol Types: 6 Glasses of wine per week Drug use: No CONSULT Observed: 10/25/2024 3:04 PM Status: COMPLETED Source: [facility] ID: [id number] Author: WILLARD BRISCOE MD Service: Infectious Disease Author Type: Physician Type: Consults Filed: 10/25/2024 17:14 Note Text: INFECTIOUS DISEASE INITIAL CONSULT NOTE SERVICE DATE: 10/25/2024 SERVICE TIME: 3:06 PM REASON FOR CONSULT: Leukocytosis Subjective Patient is seen at the request of Dr. Barbosa, Haile Schultz MD for my opinion regarding leukocytosis My final recommendations will be communicated back to the requesting physician by way of copy of this note or shared electronic medical record. HPI: Stevie Angeles who is a 74 year old male with past medical history of SCC lung cancer status post robotic right lower lobectomy in 11/20, history of AAA, postoperative atrial fibrillation, prostate cancer status postradiation, who presented with tachycardia, was found to have leukocytosis at 12,000, up to 19,000 today. Not febrile, no evidence of hypotension, on room air. CT of the chest revealed thick-walled right upper lobe cavitary mass is noted with an associated air-fluid level. Blood culture , sputum culture, urine Streptococcus pneumonia and Legionella antigen, MRSA nasal PCR and mycoplasma serology collected was collected and patient was initiated on piperacillin and tazobactam. Patient has longstanding cough, denies having any hemoptysis, cannot describe the color of sputum he produces, denies fevers or weight loss. Denies the being in long-term or any exposures to TB. PAST MEDICAL HISTORY Diagnosis Date Abdominal aortic aneurysm without rupture Elevated PSA Hearing loss HTN (hypertension) Lumbosacral neuritis Malignant neoplasm of prostate (HCC) Other and unspecified hyperlipidemia Prostate cancer (HCC) 2020 xrt at [facility] [place] Smoker former quit 2021 Spinal stenosis of lumbar region with neurogenic claudication PAST SURGICAL HISTORY Procedure Laterality Date COLONOSCOPY 05/28/2008 HERNIA REPAIR HX age 20 PROSTATE BIOPSY HX 2020 REMOVAL OF LUNG,LOBECTOMY Right 11/15/2023 Robotic-assisted right lower lobectomy with right lower lobe bronchoplasty closure of airway and mediastinal and hilar lymph node dissection, intercostal and phrenic nerve block SOCIAL HISTORY[1] FAMILY HISTORY Problem Relation Age of Onset other (high blood pressure [Other]) Mother Diabetes Mother Hearing Loss Mother Prostate Cancer Other Immunization History Administered Date(s) Administered COVID-19 original vaccine, age 12+ yr, monovalent ([employer] - PURPLE TOP) 05/26/2020 06/17/2020 02/04/2021 COVID-19 vaccine, age 12+ yr (MODERNA) 02/06/2024 COVID-19 vaccine, age 12+ yr ([employer] COMIRNATY) 02/14/2023 COVID-19 vaccine, age 12+ yr, bivalent ([employer]) 12/28/2021 influenza (HD-IIV3) vaccine, age 65+ yr, high dose, trivalent, PF (FLUZONE HIGH-DOSE) 12/27/2018 influenza (HD-IIV4) vaccine, age 65+ yr, high dose, quadrivalent, PF (FLUZONE HIGH-DOSE) 01/01/2020 02/08/2021 02/14/2023 influenza (IIV3) vaccine, age 6 mo - 64 yr, trivalent (AFLURIA, FLULAVAL, FLUVIRIN, FLUZONE) 03/10/2014 03/25/2015 11/18/2015 influenza (IIV4) vaccine, age 6 mo - 64 yr, quadrivalent (AFLURIA, FLULAVAL, FLUZONE) 04/06/2017 influenza vaccine, unspecified formulation 02/14/2011 03/08/2013 pneumococcal conjugate (PCV13) vaccine, 13 valent (PREVNAR 13) 10/04/2017 pneumococcal polysaccharide (PPV23) vaccine, 23 valent (PNEUMOVAX 23) 12/27/2018 tetanus diphtheria pertussis (Tdap) vaccine, age 7+ yr (ADACEL, BOOSTRIX) 09/16/2011 Current Facility-Administered Medications Medication Dose Route Frequency metoprolol succinate ER 25 mg tab(s) (TOPROL XL) 25 mg ORAL DAILY enoxaparin 70 mg injection (LOVENOX) 1 mg/kg/dose SUBCUTANEOUS q 12 HR NaCl 0.9% iv flush bag 20 mL INTRAVENOUS PRN piperacillin-tazobactam iv piggyback 3.375 g in dextrose (iso-osmotic) 50 mL (ZOSYN) 3.375 g INTRAVENOUS q 6 H vancomycin iv piggyback 1 g in D5W 200 mL (VANCOCIN) 0.015 g/kg/dose INTRAVENOUS q 12 HR vancomycin dosing and monitoring per pharmacy OTHER As Directed atorvastatin 20 mg tab(s) (LIPITOR) 20 mg ORAL AT BEDTIME acetaminophen 650 mg tab(s) (TYLENOL) 650 mg ORAL q 6 H PRN sodium chloride 0.9 % (flush) 2-10 mL (BD POSIFLUSH) 2-10 mL INTRAVENOUS DIRECTED PRN And perflutren lipid microspheres 1.1 mg/mL 1.3 mL injection (DEFINITY) 1.3 mL INTRAVENOUS DIRECTED PRN guaiFENesin 600 mg ER tab(s) (MUCINEX) 600 mg ORAL q 12 H albuterol 2.5 mg /3 mL (0.083 %) 2.5 mg (PROVENTIL) 2.5 mg INHALATION QID budesonide 0.5 mg/2 mL 0.5 mg (PULMICORT) 0.5 mg INHALATION BID lisinopril 20 mg tab(s) (ZESTRIL) 20 mg ORAL DAILY And hydroCHLOROthiazide 12.5 mg tab(s) 12.5 mg ORAL DAILY gabapentin 600 mg cap(s) (NEURONTIN) 600 mg ORAL TID Active Antimicrobials (From admission, onward) Start Stop 10/25/24 0230 piperacillin-tazobactam iv piggyback 3.375 g in dextrose (iso-osmotic) 50 mL (ZOSYN) 3.375 g, INTRAVENOUS, EVERY 6 HOURS -- 10/24/242029 vancomycin iv piggyback 1 g in D5W 200 mL (VANCOCIN) 0.015 g/kg/dose, INTRAVENOUS, EVERY 12 HOURS -- 10/24/242029 vancomycin dosing and monitoring per pharmacy OTHER, DIRECTED -- ALLERGIES No Known Allergies REVIEW OF SYSTEMS: See HPI 12 points reviewed negative except in HPI Objective PHYSICAL EXAM: BP 101/59 Pulse 74 Temp (Src) 98 (Temporal) Resp 16 Ht 5' 10 (1.78m) Wt 162 lb 0.6 oz (73.5kg) SpO2 98% BMI 23.25 kg/(m2). O2 Therapy: Room Air GENERAL APPEARANCE: Patient in no acute distress, hard hearing SKIN: Skin color, texture, turgor normal. No rashes or lesions. HEAD/SINUSES: No significant findings. EYES: PERRLA, EOMI, conjunctivae clear Oropharynx : Missing maxillary teeth, poor mandibular dentition with multiple tooth extractions BACK: Back symmetric, normal curvature, ROM normal, no CVAT. LUNGS: Normal breath sounds, clear to auscultation, percussion normal, no wheezes, or crackles. HEART: Normal PMI, Regular rate/rhythm, normal heart sounds, and no murmurs. ABDOMEN: Soft, non tender, no palpable masses, normal bowel sounds EXTREMITIES: No edema or tenderness: NEURO: Awake, alert and oriented x3, cranial nerves II-XII grossly intact. Lines, Drains, and Airways Line Duration Peripheral 10/25/24 1146 [facility] Short Right Forearm 22 Gauge <1 day Drain Duration External Collection Device 10/24/24 2300 <1 day DATA: Diagnostic tests reviewed for today's visit: Most recent labs and imaging results. CBC: Lab Results Component Value Date HB 12.1 10/25/2024 HB 16.1 04/28/2015 HCT 37.7 10/25/2024 HCT 47.0 04/28/2015 WBC 19.10 10/25/2024 WBC 8.93 04/28/2015 AUTODIFF: Lab Results Component Value Date RBC 3.89 10/25/2024 RBC 5.36 04/28/2015 MCV 96.9 10/25/2024 MCV 87.7 04/28/2015 MCH 31.1 10/25/2024 MCH 30.0 04/28/2015 MCHC 32.1 10/25/2024 MCHC 34.3 04/28/2015 RDWCV 14.6 10/25/2024 RDWCV 14.1 04/28/2015 PLT 457 10/25/2024 PLT 220 04/28/2015 MPV 8.7 10/25/2024 MPV 9.8 04/28/2015 NEUTP 82.1 10/24/2024 NEUTP 68.0 04/28/2015 ABSNEUT 9.89 10/24/2024 ABSNEUT 6.08 04/28/2015 LYMPHP 9.9 10/24/2024 LYMPHP 20.2 04/28/2015 ABSLYMPH 1.20 10/24/2024 ABSLYMPH 1.80 04/28/2015 ABSMONO 0.80 10/24/2024 ABSMONO 0.80 04/28/2015 EODINP 0.4 10/24/2024 EODINP 0.9 04/28/2015 ABSEOSIN 0.05 10/24/2024 ABSEOSIN 0.08 04/28/2015 BASOP 0.7 10/24/2024 BASOP 1.9 04/28/2015 ABSBASO 0.09 10/24/2024 ABSBASO 0.17 04/28/2015 UA: Lab Results Component Value Date PH 7.42 11/15/2023 SPGR 1.025 06/07/2024 UGLUC Negative 06/07/2024 UBILI 1+ 06/07/2024 UKET Trace 06/07/2024 UHB Negative 06/07/2024 UPROT 1+ 06/07/2024 CMP: Lab Results Component Value Date ALB 2.8 10/24/2024 ALB 4.7 04/28/2015 CA 8.7 10/25/2024 CA 10.2 02/08/2021 TBILI 0.3 10/24/2024 TBILI 0.4 04/28/2015 ALKPHOS 104 10/24/2024 ALKPHOS 70 04/28/2015 AST 28 10/24/2024 AST 58 10/30/2020 GLUC 108 10/25/2024 GLUC 138 02/08/2021 BUN 9 10/25/2024 BUN 11 02/08/2021 CREAT 0.70 10/25/2024 CREAT 0.78 02/08/2021 NA 139 10/25/2024 NA 136 02/08/2021 K 4.8 10/25/2024 K 4.1 02/08/2021 CHLOR 102 10/25/2024 CHLOR 98 02/08/2021 CO2 24 10/25/2024 CO2 27 02/08/2021 ANION 13 10/25/2024 ANION 11 02/08/2021 ALT 52 10/24/2024 ALT 91 10/30/2020 CTA chest on 10/24: IMPRESSION: Thick-walled right upper lobe cavitary mass is noted with an associated air-fluid level. This may be an infectious/inflammatory process as it was not present on the exam from 05/08/2024. Malignancy is not excluded. Mediastinal lymphadenopathy may be reactive. Impression/Recommendations Stevie Angeles is a 74 year old male with tachycardia and leukocytosis, CT of the chest revealed thick-walled right upper lobe cavitary mass is noted with an associated air-fluid level. Differential includes primary lung abscess, could potentially be from aspiration and poor dentition versus malignancy. Plan: Suspect superinfected cavitary mass which could have been malignant. Plan on performing bronchoscopy/EBUS at [facility] on 10/29. Will continue with empiric piperacillin tazobactam and vancomycin for now. Follow-up on bronchial cultures and pathology from bronchoscopy. Will follow-up on sputum culture collected today. For now pending Legionella and Streptococcus pneumonia urine antigen, pending mycoplasma pneumonia PCR on sputum. Added HIV 1/2 and TB QuantiFERON gold. Please feel free to call or page us with concerns or questions. Thank you for allowing us to partake in the care of your patient. SIGNATURE: Willard Briscoe MD PATIENT NAME: Stevie Angeles DATE: October 25, 2024 TIME: 3:05 PM [1] Social History Tobacco Use Smoking status: Former Current packs/day: 0.00 Average packs/day: 1 pack/day for 40.0 years (40.0 ttl pk-yrs) Types: Cigarettes Start date: 07/1981 Quit date: 07/2021 Years since quittin.2 Passive exposure: Past Smokeless tobacco: Never Vaping Use Vaping status: Never Used Substance Use Topics Alcohol use: Not Currently Alcohol/week: 6.0 standard drinks of alcohol Types: 6 Glasses of wine per week Drug use: No NURSING PROG Observed: 10/25/2024 2:37 PM Status: COMPLETED Source: [facility] ID: [id number] Author: ADRIANA OSCAR RN Service: Nursing Author Type: Registered Nurse Type: Nursing Progress Note Filed: 10/25/2024 14:38 Note Text: Spoke to Michele RN at hospitals: [facility]. Patient scheduled for a [id number] bronchoscopy on 2024. To be NPO after midnight prior to the procedure, hold anticoagulant as directed. Ok to give discussed medications with sip of water. Round-Trip transportation to be arranged by referring hospital staff. Patient to arrive at [facility] by 1030 AM on a stretcher/cart, escorted by medical personnel via ambulance. [facility] RN will call [phone]# for detailed report on the morning of the procedure. RN verbalized understanding. Call back number provided. 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 Request is to sample the RUL cavitary lesion (BAL, TBNA, TBBX) + staging. Please include micro in addition to cytology. Please keep patient NPO after midnight on Monday for Monday (10/29/24) bronchoscopy and hold any anticoagulation 24 hours prior. Please make sure platelet count is >50k . See Robert Slater MD Interventional Pulmonary Pager: [phone] 10/25/24 PROGRESS Observed: 10/25/2024 1:24 PM Status: COMPLETED Source: [facility] ID: [id number] Author: ?, ?, ? Service: ? Author Type: ? Type: Progress Notes Filed: 10/25/2024 13:26 Note Text: POPULATION HEALTH NAVIGATION OUTREACH Action/FYI Pt needs annual wellness visit , follow up 01/24/25 No HCCs Left voicemail for patient, Sent [employer] message to the pt Reason for Outreach Care Gap/HCC or Scheduling Wellness Visits Care Gaps due: Medicare Annual Wellness Visit Follow-up Appointment Patient Contacted: Unable or unnecessary to reach patient: Left message [employer] message sent Navigation Signature: Angeline Fan October 25, 2024 1:24 PM CASE MGT YOSVANY MARROQUIN Observed: 10/25/2024 11:54 AM Status: COMPLETED Source: [facility] ID: [id number] Author: FARIDEH VIVEROS RN Service: Care Management Author Type: Registered Nurse Type: Care Mgt Initial Assessment Filed: 10/25/2024 11:56 Note Text: CARE MANAGEMENT: ASSESSMENT AND DISCHARGE PLAN SERVICE DATE: October 25, 2024 SERVICE TIME: 11:54 AM PCP: Praful Su MD Primary Contact: Extended Emergency Contact Information Primary Emergency Contact: Otto(HCPOA) Elisabeth Mobile Relation: Sister Secondary Emergency Contact: Laura(1st alt HCPOA) Jurgen Mobile Relation: Son Admission Status: Inpatient Insurance Provider: [facility] MEDICARE PPO Discharge Planning requested by: Per Department Practice Potential Transition Plans Home, Home Care, Fdc Facility/Intermediate Care Facility, To Be Determined Advance Directives Current Advance Directive: Health Care Power of Manager Care In Chart: Yes Up To Date and Valid: Yes Current Living Arrangements and Support Lives with: Alone Type of Residence: Private Residence (Apartment or Condo) Does the patient have to climb stairs at home?: Yes, stairs outside the home Support: Family members How do you manage to accomplish the following: Independent: Bathe/Shower, Ambulation, Dress, Meals/Meal Prep, Going to the bathroom, Medication Management, Transportation to appointments/community Current Services/Equipment Current Post-Acute Service(s): None Discharge Planning Patient Goal(s): General wellness [place] of Choice Explained: [place] of Choice Given: No Reason Not Given: No placements necessary Are you interested in bedside delivery of your medications? No, [facility] [place] Discharge Planning Participant(s): Patient, Family Patient/Family Comments: Caregiver Assessment: Caregiver is ready, willing and able to meet the patient's needs as recommended by the inter-professional team: Other: See Comment (DC needs TBD.) Transport at Discharge: Transportation Arrangements: Car Needs Prior to Discharge: Needs Prior to Discharge: Other: See Comment, Procedure, To Be Determined (medical clearance) Procedure Needed: Bronch at [facility] Post-Acute Discharge Plan: EMR reviewed. PAtient admitted with A-flutter. Going to [facility] on Monday via [place] for procedure then will return. RNCM spoke to patient and his sister's to complete assessment. 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 Family to transport upon DC. CM assigned will continue to follow for DC planning needs. SIGNATURE: Farideh Viveros RN PATIENT NAME: Stevie Angeles DATE: October 25, 2024 TIME: 11:54 AM BACTERIA SPEC RESP CULT Observed: 2024 10:54 AM Status: F Source: [facility] ORGANISM ID: 1 Rare Escherichia coli Insignificant colony count. No further workup. ORGANISM ID: 3 Few normal respiratory neema GRAM STAIN: Rare Mixed oral neema Rare Polymorphonuclear leukocytes Performed By: #### [id number] # ### [facility] CLIA [id number] [address] [place] [address] [place] CONSULT Observed: 10/25/2024 10:17 AM Status: COMPLETED Source: [facility] ID: [id number] Author: DIA URENA MD Service: Pulmonary Disease Author Type: Physician Type: Consults Filed: 10/25/2024 14:57 Note Text: [facility] INITIAL CONSULTATION NOTE Patient Name: Stevie Angeles REASON FOR CONSULT: lung cancer, large RUL cavitary lesion, REQUESTING PHYSICIAN: Haile Barbosa MD ASSESSMENT: Enlarging RUL opacity with air fluid level possible lung cancer vs lung abscess Enlarged right paratracheal lymph node 12 mm H/o Lung cancer s/p RLL lobectomy SCC: 1. Enlarging/hypermetabolic/cavitary RUL nodule c/w NSCLC, [id number], Stage IA3, s/p SBRT 02/01/24 [3400 cGy/1 fx] 2. Hx of SCCa of the RLL, s/p robotic-assisted right lower lobectomy/RLL bronchoplasty closure, mediastinal/hilar LND on 11/15/23 (Dr. Escobar). Pathology showed a 2.4 cm focus of SCCa, margins-, 0/12 LN; pT1cN0 cM0). Ex smoker Other medical problems include: a fib with RVR, AAA w/o repair/rupture, afib (post op 11/20,not on AC) COPD, HLD, HTN, and prostate CA (s/p XRT) PLAN: Continue zosyn/vanc (bacterial serologies and MRSA pending) Sputum culture Bronchodilators with Duoneb as needed Plan for point to point transfer to [facility] on MondayOctober 29 for bronchoscopy, lung biopsy and EBUS Npo after midnight Monday night Hold lovenox prior to bronchoscopic procedure: last dose Monday morning Thank you for the consultation. We will follow the patient along with you. Case discussed in detail with the patient, RN and primary attending. Patient verbalizes understanding and is in agreement with current management plan. Dia Urena MD CHIEF COMPLAINT: lung mass HISTORY OF PRESENT ILLNESS: Stevie Angeles is a 74 year old male, Ht 177.8 cm (5' 10) BMI 23.25 kg/m2, with a PMH significant for lung cancer, s/p RLL lobectomy for SCC 10/2023, RUL cavitary nodule considered NSCLCA s/p radiation 01/2025, a fib, AAA w/o repair/rupture, afib (post op 11/20,not on AC) COPD, HLD, HTN, and prostate CA (s/p XRT), admitted and treated for a fib with RVR that is now controlled. Found to have enlarging RUL mass with air fluid level. Very hard of hearing Does have cough. No sputum No Shortness of Breath Labs and radiology have been reviewed PAST MEDICAL HISTORY Diagnosis Date Abdominal aortic aneurysm without rupture Elevated PSA Hearing loss HTN (hypertension) Lumbosacral neuritis Malignant neoplasm of prostate (HCC) Other and unspecified hyperlipidemia Prostate cancer (HCC) 2020 xrt at [facility] [place] Smoker former quit 2021 Spinal stenosis of lumbar region with neurogenic claudication PAST SURGICAL HISTORY Procedure Laterality Date COLONOSCOPY 05/28/2008 HERNIA REPAIR HX age 20 PROSTATE BIOPSY HX 2020 REMOVAL OF LUNG,LOBECTOMY Right 11/15/2023 Robotic-assisted right lower lobectomy with right lower lobe bronchoplasty closure of airway and mediastinal and hilar lymph node dissection, intercostal and phrenic nerve block FAMILY HISTORY Problem Relation Age of Onset other (high blood pressure [Other]) Mother Diabetes Mother Hearing Loss Mother Prostate Cancer Other SOCIAL HISTORY[1] ALLERGIES: ALLERGIES No Known Allergies CURRENT OUTPATIENT MEDICATIONS: lisinopril-hydroCHLOROthiazide (ZESTORETIC) 20-12.5 mg per tabletTake 1 tablet by mouth once daily.Disp: 90 tabletRfl: 3 atorvastatin (LIPITOR) 20 mg tabletTake 1 tablet by mouth once daily.Disp: 90 tabletRfl: 3 fluticasone-salmeterol (WIXELA INHUB) 250-50 mcg/dose inhalerInhale 1 puff as instructed two times a day.Disp: 120 eachRfl: 5 gabapentin (NEURONTIN) 300 mg capsuleTAKE 2 CAPSULES BY MOUTH 3 TIMES A DAYDisp: 540 capsuleRfl: 3 albuterol HFA (PROVENTIL HFA, VENTOLIN HFA) 90 mcg/actuation inhalerInhale 2 puffs as instructed every 4 hours as needed.Disp: 1 eachRfl: 3 (Patient not taking: Reported on 10/24/2024) REVIEW OF SYSTEMS: Constitutional:WELL DEVELOPED, WELL NOURISHED, and NO EVIDENCE OF ACUTE DISTRESS HEENT:Negative for frequent or significant headaches, No changes in hearing or vision, no nose bleeds or other nasal problems, SEE HPI RESPIRATORY: See HPI, CARDIOVASCULAR: See HPI, Negative for chest pain, leg swelling or palpitations. GASTROINTESTINAL: See HPI and Negative for abdominal discomfort, blood in stools or black stools or change in bowel habits GENITOURINARY: No history of dysuria, frequency or incontinence, See HPI MUSCULOSKELETAL: See HPI, Negative for joint pain or swelling, back pain. NEUROLOGIC: Negative for focal neurological deficits, dizziness or syncope. SKIN: Negative for lesions, rash, and itching. HEMATOLOGIC/LYMPHATIC/IMMUNOLOGIC: No easy bruising or swollen glands. ENDOCRINE: Negative for cold or heat intolerance, polyuria, polydipsia. See HPI The remainder of the ROS were reviewed and negative. Patient Vitals for the past 24 hrs: BP Temp Temp src Pulse Resp SpO2 Height Weight 10/25/24 0834 91/53 36.6 ?C (97.9 ?F) Temporal 90 18 95 % -- -- 10/25/24 0822 -- -- -- -- 16 94 % -- -- 10/25/24 0803 -- -- -- 94 18 94 % -- -- 10/24/24 2300 128/70 36.7 ?C (98.1 ?F) Temporal 102 20 92 % -- -- 10/24/24 2235 -- -- -- -- -- -- 177.8 cm (5' 10) 73.5 kg (162 lb 0.6 oz) 10/24/24 2100 101/68 -- -- 69 24 (!) 94 % -- -- 10/24/241999 110/66 -- -- 67 20 (!) 94 % -- -- 10/24/24 1930 93/64 -- -- 66 23 95 % -- -- 10/24/24 1900 90/60 -- -- 63 20 95 % -- -- 10/24/24 1815 112/72 -- -- 70 20 97 % -- -- 10/24/24 1730 102/68 -- -- 67 22 96 % -- -- 10/24/24 1700 135/76 -- -- 72 20 96 % -- -- 10/24/24 1647 102/55 -- -- -- -- -- -- -- 10/24/24 1645 105/66 -- -- 69 22 97 % -- -- 10/24/24 1536 (!) 83/55 36.6 ?C (97.9 ?F) Oral 80 20 97 % -- 71.2 kg (157 lb) No intake or output data in the 24 hours ending 10/25/24 1018 PHYSICAL EXAMINATION: VITAL SIGNS: BP 91/53 Pulse 90 Temp (Src) 97.9 (Temporal) Resp 18 Ht 5' 10 (1.78m) Wt 162 lb 0.6 oz (73.5kg) SpO2 95% BMI 23.25 kg/(m2). O2 Therapy: Room Air General appearance: well appearing, alert, and in no acute distress Skin: skin color, texture, turgor normal, no rashes or lesions Eyes: Anicteric sclera. Pupils are equally round and reactive to light. ENT:: Deferred Heme/Lymph:: Negative Lungs: diminished breaths sounds over the right lung field no wheezing or rhonchi Heart: RRR without murmur, gallop, or rubs. No ectopy, normal peripheral pulses, no peripheral edema GI: Abdomen soft, non-tender. Bowel sounds normal. Musculoskeletal:: No deformities, skin discoloration. Good capillary refill. Neuro: no focal weakness Phychiatry: Alert, Oriented X 3 DATA: Diagnostic tests reviewed and analysed for today's visit, films/specimens were personally reviewed by me: Most recent labs and imaging results. LAB RESULTS: CBC, Coags, BMP, Mg, Phos Recent Labs 10/25/24 0537 10/24/24 1600 WBC 19.10* 12.07* HB 12.1* 11.8* HCT 37.7* 36.8* PLT 457* 448* NA 139 140 K 4.8 3.8 CHLOR 102 106 CO2 24 25 BUN 9 6* CREAT 0.70* 0.45* GLUC 108* 91 CA 8.7 7.8* MG 2.3 1.6* Liver Function, Amylase, AND Lipase Recent Labs 10/24/24 1600 TPROT 6.0* ALB 2.8* ALT 52 AST 28 ALKPHOS 104 TBILI 0.3 LIPASE 19 Cardiac Enzymes ABGs Recent Results (from the past 8760 hours) ECG COMPLETE Collection Time: 05/10/24 2:59 PM Result Value Ventricular Rate 89 Atrial Rate 84 QRS Duration 82 QT Interval 384 QTC Calculation (Bazett) 467 Calculated R Dunlow 50 Calculated T Dunlow 50 Impression ATRIAL FIBRILLATION NONSPECIFIC ST AND T WAVE ABNORMALITY PROLONGED QT INTERVAL OR TU FUSION, CONSIDER HYPOKALEMIA ABNORMAL ECG Recent Results (from the past 81273 hours) ECHO Collection Time: 10/16/23 2:52 PM Impression CONCLUSIONS: - Technically difficult exam due to lung interference. - Exam indication: Hypertension - The left ventricle is small. Left ventricular systolic function is normal. EF = 55 ? 5% (2D biplane) Normal left ventricular diastolic function. - The right ventricle is normal in size. Right ventricular systolic function is normal. - The visualized aorta is dilated with a maximal dimension of 4.2 cm. - Estimated right ventricular systolic pressure is likely underestimated due to a weak or incomplete tricuspid regurgitation signal and is, at least, 26 mmHg consistent with normal pulmonary artery pressures. Estimated right atrial pressure is 3 mmHg based on IVC assessment. - There are no significant valvular abnormalities. - The patient has not had a prior CC echocardiographic exam for comparison. * * * Final * * * XR CHEST 2V FRONTAL/LAT Result Date: 08/20/2024 IMPRESSION: Resolution of right hydropneumothorax since 07/01/2024 Agency Trainer: [facility] Transcribe Date/Time: Aug 20 2024 11:10A Dictated by : IKE KERR MD This examination was interpreted and the report reviewed and electronically signed by: IKE KERR MD on Aug 20 2024 11:14AM EST XR CHEST 2V FRONTAL/LAT Result Date: 2024 IMPRESSION: No acute radiographic findings in the chest. Agency Trainer: [facility] Transcribe Date/Time: 2024 1:27P Dictated by : ALIYA BARRIENTOS MD This examination was interpreted and the report reviewed and electronically signed by: ALIYA BARRIENTOS MD on 2024 1:30PM EST XR CHEST 2V FRONTAL/LAT Result Date: 07/01/2024 IMPRESSION: See result. Agency Trainer: [facility] Transcribe Date/Time: Jul 01 2024 12:42P Dictated by : IVON PEREIRA MD This examination was interpreted and the report reviewed and electronically signed by: IVON PEREIRA MD on Jul 01 2024 12:43PM EST XR CHEST 2V FRONTAL/LAT Result Date: 07/01/2024 IMPRESSION: See result. Agency Trainer: [facility] Transcribe Date/Time: Jul 01 2024 10:40A Dictated by : IVON PEREIRA MD This examination was interpreted and the report reviewed and electronically signed by: IVON PEREIRA MD on Jul 01 2024 10:41AM EST XR CHEST 1V FRONTAL PORT Result Date: 06/23/2024 IMPRESSION: See result. Agency Trainer: [facility] Transcribe Date/Time: Jun 23 2024 1:43P Dictated by : GILMA RAMSEY MD This examination was interpreted and the report reviewed and electronically signed by: GILMA RAMSEY MD on Jun 23 2024 1:44PM EST XR CHEST 2V FRONTAL/LAT Result Date: 06/22/2024 IMPRESSION: See result Agency Trainer: [facility] Transcribe Date/Time: Jun 22 2024 3:00P Dictated by : GILMA RAMSEY MD This examination was interpreted and the report reviewed and electronically signed by: GILMA RAMSEY MD on Jun 22 2024 3:03PM EST XR CHEST 1V FRONTAL PORT Result Date: 06/22/2024 IMPRESSION: See result. Agency Trainer: [facility] Transcribe Date/Time: Jun 22 2024 10:53A Dictated by : ANA CRISTINA MAYFIELD MD This examination was interpreted and the report reviewed and electronically signed by: ANA CRISTINA MAYFIELD MD on Jun 22 2024 10:53AM EST XR CHEST 1V FRONTAL PORT Result Date: 06/21/2024 IMPRESSION: See result. Agency Trainer: [facility] Transcribe Date/Time: Jun 21 2024 8:53A Dictated by : ANA CRISTINA MAYFIELD MD This examination was interpreted and the report reviewed and electronically signed by: ANA CRISTINA MAYFIELD MD on Jun 21 2024 8:55AM EST XR CHEST 1V FRONTAL PORT Result Date: 06/20/2024 IMPRESSION: See result. Agency Trainer: [facility] Transcribe Date/Time: Jun 20 2024 10:15A Dictated by : SANGEETHA MCDONALD MD This examination was interpreted and the report reviewed and electronically signed by: SANGEETHA MCDONALD MD on Jun 20 2024 10:16AM EST XR CHEST 1V FRONTAL PORT Result Date: 06/19/2024 IMPRESSION: See result. Agency Trainer: [facility] Transcribe Date/Time: Jun 19 2024 5:35P Dictated by : GILMA RAMSEY MD This examination was interpreted and the report reviewed and electronically signed by: GILMA RAMSEY MD on Jun 19 2024 5:38PM EST XR CHEST 2V FRONTAL/LAT Result Date: 06/07/2024 IMPRESSION: 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 Agency Trainer: [facility] Transcribe Date/Time: Jun 07 2024 1:52P Dictated by : JEANETTE MENJIVAR MD This examination was interpreted and the report reviewed and electronically signed by: POPEYE RODRIGUEZ MD on Jun 07 2024 4:23PM EST XR CHEST 2V FRONTAL/LAT Result Date: 05/17/2024 IMPRESSION: See result. Agency Trainer: [facility] Transcribe Date/Time: May 17 2024 3:17P Dictated by : QUAN JACQUES MD This examination was interpreted and the report reviewed and electronically signed by: QUAN JACQUES MD on May 17 2024 3:18PM EST XR CHEST 1V FRONTAL PORT Result Date: 05/12/2024 IMPRESSION: Lines, Tubes, and Devices: Stable support lines and tubes. Lungs and Pleura: Scattered lung opacities and small effusions are not significantly changed. No pneumothorax. Cardiomediastinal silhouette: Stable cardiac silhouette. Agency Trainer: [facility] Transcribe Date/Time: May 12 2024 9:59A Dictated by : JURGEN ROY MD This examination was interpreted and the report reviewed and electronically signed by: JURGEN ROY MD on May 12 2024 10:00AM EST XR CHEST 1V FRONTAL PORT Result Date: 05/11/2024 IMPRESSION: See result. Agency Trainer: [facility] Transcribe Date/Time: May 11 2024 9:48A Dictated by : IVON PEREIRA MD This examination was interpreted and the report reviewed and electronically signed by: IVON PEREIRA MD on May 11 2024 9:49AM EST XR CHEST 1V FRONTAL PORT Result Date: 05/11/2024 IMPRESSION: See result Agency Trainer: [facility] Transcribe Date/Time: May 11 2024 12:02A Dictated by : ALIYA BARRIENTOS MD This examination was interpreted and the report reviewed and electronically signed by: ALIYA BARRIENTOS MD on May 11 2024 12:03AM EST XR CHEST 1V FRONTAL PORT Result Date: 05/10/2024 IMPRESSION: See result Agency Trainer: [facility] Transcribe Date/Time: May 10 2024 5:04P Dictated by : ALIYA BARRIENTOS MD This examination was interpreted and the report reviewed and electronically signed by: ALIYA BARRIENTOS MD on May 10 2024 5:08PM EST XR CHEST 2V FRONTAL/LAT Result Date: 02/02/2024 IMPRESSION: Right pneumothorax Findings discussed with Dr. Goss at 1543 Agency Trainer: [facility] Transcribe Date/Time: Feb 02 2024 3:36P Dictated by : BEVERLEY CAMACHO MD This examination was interpreted and the report reviewed and electronically signed by: BEVERLEY CAMACHO MD on Feb 02 2024 3:45PM EST XR CHEST 2V FRONTAL/LAT Result Date: 01/08/2024 IMPRESSION: See result Agency Trainer: [facility] Transcribe Date/Time: Jan 08 2024 2:44P Dictated by : CORAZON PUENTES DO This examination was interpreted and the report reviewed and electronically signed by: ALIYA BARRIENTOS MD on Jan 08 2024 3:45PM EST XR CHEST 2V FRONTAL/LAT Result Date: 11/27/2023 IMPRESSION: See result Agency Trainer: [facility] Transcribe Date/Time: Nov 27 2023 2:01P Dictated by : ALIYA BARRIENTOS MD This examination was interpreted and the report reviewed and electronically signed by: ALIYA BARRIENTOS MD on Nov 27 2023 2:14PM EST XR CHEST 1V FRONTAL PORT Result Date: 11/19/2023 IMPRESSION: See result. Agency Trainer: [facility] Transcribe Date/Time: Nov 19 2023 10:24A Dictated by : MALLORY MUNOZ MD This examination was interpreted and the report reviewed and electronically signed by: MALLORY MUNOZ MD on Nov 19 2023 10:26AM EST XR CHEST 1V FRONTAL PORT Result Date: 11/18/2023 IMPRESSION: See result. Agency Trainer: [facility] Transcribe Date/Time: Nov 18 2023 9:36A Dictated by : MALLORY MUNZO MD This examination was interpreted and the report reviewed and electronically signed by: MALLORY MUNOZ MD on Nov 18 2023 9:38AM EST XR CHEST 2V FRONTAL/LAT Result Date: 11/17/2023 IMPRESSION: See result Agency Trainer: [facility] Transcribe Date/Time: Nov 17 2023 4:54P Dictated by : GILMA RAMSEY MD This examination was interpreted and the report reviewed and electronically signed by: GILMA RAMSEY MD on Nov 17 2023 4:56PM EST XR CHEST 1V FRONTAL PORT Result Date: 11/17/2023 IMPRESSION: See result. Agency Trainer: [facility] Transcribe Date/Time: Nov 17 2023 9:15A Dictated by : MALLORY MUNOZ MD This examination was interpreted and the report reviewed and electronically signed by: MALLORY MUNOZ MD on Nov 17 2023 9:17AM EST XR CHEST 1V FRONTAL PORT Result Date: 11/16/2023 IMPRESSION: Lines, Tubes, and Devices: Stable right chest tubes. Lungs and Pleura: Small left effusion increased from prior. Lower lung opacities not substantially changed. No pneumothorax. Cardiomediastinal silhouette: Stable cardiac silhouette. Agency Trainer: [facility] Transcribe Date/Time: Nov 16 2023 7:59A Dictated by : JURGEN ROY MD This examination was interpreted and the report reviewed and electronically signed by: JURGEN ROY MD on Nov 16 2023 7:59AM EST XR CHEST 1V FRONTAL PORT Result Date: 11/15/2023 IMPRESSION: See result. Agency Trainer: [facility] Transcribe Date/Time: Nov 15 2023 3:39P Dictated by : GILMA RAMSEY MD This examination was interpreted and the report reviewed and electronically signed by: GILMA RAMSEY MD on Nov 15 2023 3:40PM EST XR CHEST 2V FRONTAL/LAT Result Date: 11/09/2023 IMPRESSION: See result Agency Trainer: [facility] Transcribe Date/Time: Nov 09 2023 7:39A Dictated by : IVON PEREIRA MD This examination was interpreted and the report reviewed and electronically signed by: IVON PEREIRA MD on Nov 09 2023 7:41AM EST CT CHEST W IVCON Result Date: 05/11/2024 IMPRESSION: 1. Postoperative changes of right lower lobectomy. Large new cystic space in the resection bed with areas of septations and smaller surrounding cystic spaces. Primary differential for this is a multiloculated pneumothorax or less likely a large bulla. 2. Stable right upper lobe spiculated nodule with cavitations. Agency Trainer: [facility] Transcribe Date/Time: May 11 2024 3:35P Dictated by : IVON DALTON MD This examination was interpreted and the report reviewed and electronically signed by: IVON DALTON MD on May 11 2024 3:46PM EST Dia Urena MD, JESSICA Staff, Res[facility] Pager #[phone] [1] Social History Tobacco Use Smoking status: Former Current packs/day: 0.00 Average packs/day: 1 pack/day for 40.0 years (40.0 ttl pk-yrs) Types: Cigarettes Start date: 07/1981 Quit date: 07/2021 Years since quittin.2 Passive exposure: Past Smokeless tobacco: Never Vaping Use Vaping status: Never Used Substance Use Topics Alcohol use: Not Currently Alcohol/week: 6.0 standard drinks of alcohol Types: 6 Glasses of wine per week Drug use: No ECHO Observed: 10/25/2024 9:35 AM Status: F Source: [facility] Echocardiography Report: Tra nsthoracic Echo [facility] Date of service: 10/25/2024 9:35:22 AM Ordering physician: ANDERSON RODRIGUEZ Exam indication: Sustained atrial fibrillation Technologist: Tracey Howard RD Interpreting physician: Robin Knox MD PATIENT: Name: STEVIE ANGELES : 1950 Age: 74 years Gender: M Primary rhythm: atrial fib. Height: 177.80 cm BSA: 1.91 m Weight: 73.50 kg BMI: 23.3 kg/m Heart rate 83 bpm Blood pressure 128/70 mmHg Color Doppler was utilized to interrogate the cardiac valves assessed and spectral Doppler was utilized to determine the flow velocities and pressure gradients reported in this exam. Myocardial strain analysis was performed in this exam to aid in the assessment of cardiac function. MEASUREMENTS: Value Indexed Normal Max aortic dimension 4.5 cm Ao < 3.8 Left atrial volume 74 ml (Doherty's) 39 ml/m Nikolas <= 34 LV ID (diastole) 4.4 cm (2D) 2.28 cm/m LV ID (systole) 3.0 cm (2D) 1.58 cm/m IVS, leaflet tips 0.9 cm (2D) Posterior wall thickness 1.2 cm (2D) Left ventricular mass 156 g (2D) 82 g/m Global peak long strain -18.5 % LV stroke volume 36 ml (2D 4-ch.) LV end diastolic volume 65 ml (2D 4-ch.) 33.9 ml/m 34<=EDVi<75 LV end systolic volume 29 ml (2D 4-ch.) 15.3 ml/m Ejection Fraction 55 % (2D 4-ch.) EF > 52 FINDINGS: LEFT VENTRICLE The left ventricle is normal in size. Left ventricular systolic function is normal. Global LV myocardial strain is normal. Left ventricular diastolic function was not evaluated due to AF. Mitral annular lateral E/e': 5.8. Mitral annular septal E/e': 7.8. Wall Motion: All scored segments are normal. RIGHT VENTRICLE The right ventricle is normal in size. Right ventricular systolic function is normal. RV systolic tissue Doppler velocity is 20.6 cm/s. Tricuspid annular displacement is 2.5 cm. Estimated right ventricular systolic pressure is 39 mmHg consistent with mild pulmonary hypertension. Estimated right atrial pressure is 3 mmHg based on IVC assessment. LEFT ATRIUM The left atrial cavity is mildly dilated. RIGHT ATRIUM The right atrial cavity is normal in size. Inferior Vena Cava: The inferior vena cava appears normal measuring 0.9 cm. The vessel decreases greater than 50 percent with inspiration. MITRAL VALVE The mitral valve leaflets are structurally normal. There is trace (trace - 1+) mitral valve regurgitation. The pressure half time is 86 msec. The peak mitral E/A ratio is 0.99. The average mitral E/e' ratio is 6.8. The mitral flow deceleration time is 296 msec. TRICUSPID VALVE The tricuspid valve leaflets are structurally normal. There is mild (1+) tricuspid valve regurgitation. AORTIC VALVE The aortic valve cusps are structurally normal. There is no aortic valve regurgitation. Tricuspid aortic valve. PULMONIC VALVE The pulmonic valve cusps are structurally normal. There is trace pulmonic valve regurgitation. AORTA The visualized aorta is dilated. Measurements - Aortic valve annulus 2.1 cm. Sinus: 4.5 cm. Mid ascending aorta 3.8 cm. Distal ascending aorta 4.0 cm. PULMONARY ARTERIES The pulmonary arteries are unseen or not interrogated. INTERATRIAL SEPTUM There is no evidence of intracardiac shunting as detected by Doppler. INTERVENTRICULAR SEPTUM There is no flow through the interventricular septum as detected by Doppler. PERICARDIUM There is no pericardial effusion. There is an epicardial fat pad. CONCLUSIONS: - Exam indication: Sustained atrial fibrillation - The left ventricle is normal in size. Left ventricular systolic function is normal. EF = 55 5% (2D 4-ch.) Left ventricular diastolic function was not evaluated due to AF. - The right ventricle is normal in size. Right ventricular systolic function is normal. - The left atrial cavity is mildly dilated. - There are no significant valvular abnormalities. - The visualized aorta is dilated with a maximal dimension of 4.5 cm. - There is mild (1+) tricuspid regurgitation. - Exam was compared with the prior echocardiographic exam performed on 10/16/2023. Increase in Ao sinus measurment on today's echo. * * * Final * * * Funding Options Medical Image : [id number] LEGIONELLA AG UR QL Collected: 10/25/2024 8:[address] atus: F Source: [facility] Order Comment: Specimen Type : URINE SPECIMEN Ordering Facility: [facility] Address: [address] [place] [address] TYPE CODE TESTS RESULT OUT OF RANGE REFERENCE UNITS LAB 43589-7([facility]) Legionella Ag Ur Ql Negative Negative Result Comment: Legionella u rinary antigen test is used as an aid in diagnosis of infection with Legionella pneumophila serogroup 1. It may be detected from a few days to several months after onset of signs and symptoms despite antibiotic therapy or disease resolution. A negative result cannot exclude Legionellosis. Clinical correlation is required. Performed By: #### 44680-4 # ### [facility] CLIA [id number] [address] [place] [address] [place] STREPTOCOCCUS PNEUMONIAE ANTIGEN URINE Observed: 10/25/2024 8:42 AM Status: F Source: [facility] STREP PNEUMO AG RESULT: Negative for Streptococcus pneumoniae antigen. Presumptive negative for pneumococcal pneumonia, suggesting no current or recent pneumococcal infection. Infection due to S.pneumoniae cannot be ruled out since the antigen present in the sample may be below the detection limit of the test. Performed By: #### SPNAG ### # [facility] CLIA [id number] [address] [place] [address] [place] STAPHYLOCOCCUS AUREUS AND MR SA SCREEN, PCR, NASAL Collected: 10/25/2024 8:39 AM Status: F Source: [facility] Order Comment: Specimen Type : SWAB Ordering Facility: [facility] Address: [address] [place] [address] TYPE CODE TESTS RESULT OUT OF RANGE REFERENCE UNITS LAB 29590-5(LOINC) SA+MRSA Pnl Nose WENDY+probe Not Detected Not Detected Performed By: #### SAPCR ### # [facility] CLIA [id number] [address] [place] [address] [place] MYCOPLASMA PNEUM PCR Observed: 8:38 AM Status: F Source: [facility] SPECIMEN SOURCE (MYCPCR): Sputum MYCOPLASMA PNEUM DNA: Not Detected NOT DETECTED - A negative result does not rule out the presence of PCR inhibitors in the patient specimen or assay specific nucleic acid in concentrations below the level of detection by the assay. INTERPRETIVE INFORMATION: Mycoplasma pneumoniae by PCR This test was developed and its performance characteristics determined by [facility]. It has not been cleared or approved by the [place] Food and Drug Administration. This test was performed in a CLIA certified laboratory and is intended for clinical purposes. Performed By: [facility] [address] [place] [id number] [employer] Representative: Ethan Littlejohn MD, PhD CLIA Number: [id number] Performed By: #### MYCPCR ## ## [facility] [employer] CLIA [id number] [address] [place] [id number] PROGRESS Observed: 10/25/2024 8:21 AM Status: COMPLETED Source: [facility] HNO ID: [id number] Author: HAILE BARBOSA MD Service: Hospital Medicine Author Type: Physician Type: Progress Notes Filed: 10/25/2024 10:29 Note Text: HOSPITAL MEDICINE PROGRESS NOTE History: Cough with some sputum. No fevers/chlls. No TB hx. Or recent travel Exam: BP 128/70 Pulse 94 Temp 36.7 ?C (98.1 ?F) (Temporal) Resp 16 Ht 177.8 cm (5' 10) Wt 73.5 kg (162 lb 0.6 oz) SpO2 94% BMI 23.25 kg/m? Physical Exam Cardiovascular: Rate and Rhythm: Normal rate. Pulmonary: Effort: Pulmonary effort is normal. Musculoskeletal: General: No swelling. ASSESSMENT: Mr. Angeles, your 74 years have been affected by PMHx of AAA w/o repair/rupture, afib (post op 11/20,not on AC) COPD, HLD, HTN, lung CA (s/p RLL lobectomy 10/2023), and prostate CA (s/p XRT) . You presented to the hospital with Shortness of Breath and found to have SVT that changed to afib after adenosine, and now he's in sinus. Found to have lung mass vs cavitating mass and sepsis Afib - in sinus. Keep metoprolol. Lovenox Rx for afib and can do eliquis on DC. Start lovenox tonight just in case pulm can squeeze in a bronch today. Lung abscess vs cav lung mass - Continue zosyn/vanc. MRSA swab. Pulm/ID consults. Bronch probably needed to get biopsy/cultures. Make NPO in case bronch today. Otherwise, regular diet. echo Addendum: Pulm setup bronch with EBUS bx of lymph nodes at main campus as Leave of Absence on Monday. NPO Monday night and last lovenox dose Monday night preop Active Hospital Problems Diagnosis Date Noted Paroxysmal atrial fibrillation (HCC) 09/11/2023 Stage 1 mild COPD by GOLD classification ([facility]) 11/17/2023 Priority: B Lung abscess (HCC) 11/17/2023 Priority: B Sepsis (HCC) 10/25/2024 Cavitary lesion of lung 10/24/2024 Anemia 10/24/2024 Cancer of lower lobe of right lung (HCC) 11/15/2023 Prostate cancer (HCC) 09/11/2023 Infrarenal abdominal aortic aneurysm (AAA) without rupture 02/08/2021 Mixed hyperlipidemia 06/23/2010 Leg blood clot prevention: lovenox starting tonight unless procedure planned SIGNATURE: Haile Barbosa MD DATE: 10/25/2024 TIME: 8:27 AM PROCALCITONIN SERPL-MCNC Collected: 10/25/2024 5:37 A M Status: F Source: [facility] Order Comment: Specimen Type : BLOOD SPECIMEN Ordering Facility: [facility] Address: [address] [place] [address] TYPE CODE TESTS RESULT OUT OF RANGE REFERENCE UNITS LAB 75795-8(LOINC) Procalcitonin SerPl-mCnc 0.21 High <0.09 ng/mL Result Comment: For a guided interpretation of test results, please visit the Change in Procalcitonin Calculator, [email or web address]. Performed By: #### 49465-5, 82931-3, 30872-1 #### [facility] CLIA [id number] [address] STATES OF [facility] BAS METAB 2000 PNL SERPL Collected: 5:37 AM Status: F Source: [facility] Order Comment: Specimen Type : BLOOD SPECIMEN Ordering Facility: [facility] Address: [address] [place] [address] TYPE CODE TESTS RESULT OUT OF RANGE REFERENCE UNITS LAB 2345-7(LOINC) Glucose SerPl-mCnc 108 High 74-99 mg/dL Result Comment: The [place] [employer] (ADA) provides guidance for cutoff values for fasting glucose and random glucose. The ADA defines fasting as no caloric intake for at least 8 hours. Fasting plasma glucose results between 100 to 125 mg/dL indicate increased risk for diabetes (prediabetes). Fasting plasma glucose results greater than or equal to 126 mg/dL meet the criteria for diagnosis of diabetes. In the absence of unequivocal hyperglycemia, results should be confirmed by repeat testing. In a patient with classic symptoms of hyperglycemia or hyperglycemic crisis, random plasma glucose results greater than or equal to 200 mg/dL meet the criteria for diagnosis of diabetes. Reference: Standards of Medical Care in Diabetes 2016, [place] [employer] Association. Diabetes Care. 2016.39(Suppl 1). LAB 3094-0(LOINC) BUN SerPl-mCnc 9 9-24 mg/dL LAB 2160-0(LOINC) Creat SerPl-mCnc 0.70 Low 0.73-1.22 mg/dL LAB 2951-2(LOINC) Sodium SerPl-sCnc 139 136-144 mmol/L LAB 2823-3(LOINC) Potassium SerPl-sCnc 4.8 3.7-5.1 mmol/L LAB 2075-0(LOINC) Chloride SerPl-sCnc 102 98-107 mmol/L LAB 202-9(LOINC) CO2 SerPl-sCnc 24 22-30 mmol/L LAB 54412-5(LOINC) Anion Gap SerPl-sCnc 13 8-15 mmol/L LAB 98022-4(LOINC) Calcium SerPl-mCnc 8.7 8.5-10.2 mg/dL LAB 55990-0(LOINC) eGFRcr SerPlBld CKD-EPI 2020 98 >=60 mL/min/1. 73m??? Result Comment: Estimated Gl omerular Filtration Rate (eGFR) is calculated using the 2020 CKD-EPI creatinine equation. This equation utilizes serum creatinine, sex, and age as parameters. The creatinine assay has traceable calibration to isotope dilution-mass spectrometry. Refer to KDIGO guidelines for clinical interpretation. In patients with unstable renal function, e.g. those with acute kidney injury, the eGFR may not accurately reflect actual GFR. Performed By: #### 45990-3, 87539-2, #### [facility] CLIA [id number] [address] [place], [place] [id number] [place] [address] [place] MAGNESIUM SERPL-MCNC Collected: 10/25/2024 5:37 AM S tatus: F Source: [facility] Order Comment: Specimen Type : BLOOD SPECIMEN Ordering Facility: [facility] Address: [address] [place], [place] [address] [id number] TYPE CODE TESTS RESULT OUT OF RANGE REFERENCE UNITS LAB 41482-6([facility]) Magnesium SerPl-mCnc 2.3 1.7-2.3 mg/dL Performed By: #### 52917-9, 15669-8, #### [facility] CLIA [id number] [address] [place] [address] [place] CBC PNL BLD AUTO Collected: 10/25/2024 5:37 AM Statu s: F Source: [facility] Order Comment: Specimen Type : BLOOD SPECIMEN Ordering Facility: [facility] Address: [address] [place] [address] TYPE CODE TESTS RESULT OUT OF RANGE REFERENCE UNITS LAB 6690-2(LOINC) WBC # Bld Auto 19.10 High 3.70-11.00 k/uL LAB 789-8(LOINC) RBC # Bld Auto 3.89 Low 4.20-6.00 m/uL LAB 718-7(LOINC) Hgb Bld-mCnc 12.1 Low 13.0-17.0 g/dL LAB 4544-3(LOINC) Hct VFr Bld Auto 37.7 Low 39.0-51.0 % LAB 787-2(LOINC) MCV RBC Auto 96.9 80.0-100.0 fL LAB 785-6(LOINC) MCH RBC Qn Auto 31.1 26.0-34.0 pg LAB 786-4(LOINC) MCHC RBC Auto-mCnc 32.1 30.5-36.0 g/dL LAB 22959-0(LOINC) RDW RBC-Rto 14.6 11.5-15.0 % LAB 777-3(LOINC) Platelet # Bld Auto 457 High 150-400 k/uL LAB 49852-3(LOINC) PMV Bld Auto 8.7 Low 9.0-12.7 fL LAB 771-6(LOINC) nRBC # Bld Auto <0.01 <0.01 k/uL Performed By: #### 72649-6 # ### [facility] CLIA [id number] [address] [place] [id number] [place] CNPTOUTREACH Observed: 10/25/2024 12:00 AM Status: COMPLETED Source[facility] Patient Outreach (NETNAV) STEVIE ANGELES ([id number]) 1950 M DEF Date Time Provider Department 10/25/24 PRAFUL SU During your visit today, we recorded the following information about you: Meng Angeline 10/25/2024 1:26 PM Signed [facility] NAVIGATION OUTREACH Action/FYI Pt needs annual wellness visit , follow up 01/24/25 No HCCs Left voicemail for patient, Sent [employer] message to the pt Reason for Outreach Care Gap/HCC or Scheduling Wellness Visits Care Gaps due: Medicare Annual Wellness Visit Follow-up Appointment Patient Contacted: Unable or unnecessary to reach patient: Left message [employer] message sent Navigation Signature: Angeline Fan October 25, 2024 1:24 PM Allergies As of Date: 10/25/2024 (No Known Allergies) Date Reviewed: 10/25/2024 Reviewed by: Mata Torres, RN - Fully Assessed Reason for Visit: Population Health Navigation Outreach [3910] Cmt: Russ Raman [facility] Prescriptions as of 10/25/2024 - lisinopril-hydroCHLOROthiazide (ZESTORETIC) 20-12.5 mg per tablet Take 1 tablet by mouth once daily. - atorvastatin (LIPITOR) 20 mg tablet Take 1 tablet by mouth once daily. - fluticasone-salmeterol (WIXELA INHUB) 250-50 mcg/dose inhaler Inhale 1 puff as instructed two times a day. - albuterol HFA (PROVENTIL HFA, VENTOLIN HFA) 90 mcg/actuation inhaler Inhale 2 puffs as instructed every 4 hours as needed. - gabapentin (NEURONTIN) 300 mg capsule TAKE 2 CAPSULES BY MOUTH 3 TIMES A DAY Facility-Administered Medications as of 10/25/2024 - metoprolol succinate ER 25 mg tab(s) (TOPROL XL) - enoxaparin 70 mg injection (LOVENOX) - NaCl 0.9% iv flush bag - piperacillin-tazobactam iv piggyback 3.375 g in dextrose (iso-osmotic) 50 mL (ZOSYN) - vancomycin iv piggyback 1 g in D5W 200 mL (VANCOCIN) - vancomycin dosing and monitoring per pharmacy - atorvastatin 20 mg tab(s) (LIPITOR) - acetaminophen 650 mg tab(s) (TYLENOL) - sodium chloride 0.9 % (flush) 2-10 mL (BD POSIFLUSH) - perflutren lipid microspheres 1.1 mg/mL 1.3 mL injection (DEFINITY) - guaiFENesin 600 mg ER tab(s) (MUCINEX) - albuterol 2.5 mg /3 mL (0.083 %) 2.5 mg (PROVENTIL) - budesonide 0.5 mg/2 mL 0.5 mg (PULMICORT) - lisinopril 20 mg tab(s) (ZESTRIL) - hydroCHLOROthiazide 12.5 mg tab(s) - gabapentin 600 mg cap(s) (NEURONTIN) Problem List As Of Date 10/25/2024 Noted Resolved Glucose intolerance (impaired glucose tolerance*06/23/2010 Primary hypertension [I10] 06/23/2010 Mixed hyperlipidemia [E78.2] 06/23/2010 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*02/14/2011 Hypercholesteremia [E78.00] 09/15/2011 09/16/2011 Spinal stenosis of lumbar region with neurogeni*06/01/2015 Paresthesias [R20.2] 06/01/2015 Lumbosacral neuritis [M54.17] 12/23/2016 Infrarenal abdominal aortic aneurysm (AAA) with*02/08/2021 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] 04/24/2023 Prostate cancer (HCC) [C61] 09/11/2023 Paroxysmal atrial fibrillation (HCC) [I48.0] 09/11/2023 Cancer of lower lobe of right lung (HCC) [C34.3*11/15/2023 Postoperative pain [G89.18] 11/16/2023 Stage 1 mild COPD by GOLD classification (HCC) *11/17/2023 Lung abscess (HCC) [J85.2] 11/17/2023 Pleural effusion, left [J90] 11/17/2023 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] 11/17/2023 Pneumothorax [J93.9] 05/10/2024 Hearing loss [H91.90] 05/10/2024 Cavitary lesion of lung [J98.4] 10/24/2024 Leukocytosis [D72.829] 10/24/2024 10/25/2024 Anemia [D64.9] 10/24/2024 Hypocalcemia [E83.51] 10/24/2024 10/25/2024 Hypomagnesemia [E83.42] 10/24/2024 10/25/2024 Elevated troponin [R79.89] 10/24/2024 10/25/2024 Sepsis (HCC) [A41.9] 10/25/2024 Encounter Status:Closed by ANGELINE FAN on 10/25/24 HISTORY PHYSICAL Observed: 10/24/2024 8:43 PM Status: COMPLETED Source: [facility] HNO ID: [id number] Author: ANDERSON RODRIGUEZ PA-C Service: Hospital Medicine Author Type: Physician Craft Superintendent Type: H&P Filed: 10/24/2024 22:24 Note Text: Attestation signed by Loraine Muñoz MD at 10/24/2024 10:36 PM Reviewed the history and physical examination of the patient and discussed the management with the ANGELITO. I reviewed the note and agree with the documented findings and plan of care. Loraine Muñoz MD Department of Hospital Medicine DATE: October 24, 2024 TIME: 10:36 PM DEPARTMENT OF HOSPITAL MEDICINE HISTORY AND PHYSICAL EXAM SERVICE DATE: 10/24/2024 SERVICE TIME: 8:43 PM Primary Care Physician: Praful Su MD NIGHT AND WEEKEND COVERAGE: [facility] COVERAGE: Days: [phone], please page attending physician. Nights: [phone], please page [place] [facility] Night coverage pager [phone]. Subjective CHIEF COMPLAINT: Elevated HR at PCP HPI: This is a 74 year old male with PMHx of AAA w/o repair/rupture, afib (post op 11/20,not on AC) COPD, HLD, HTN, lung CA (s/p RLL lobectomy 10/2023), and prostate CA (s/p XRT) who presents to ED with elevated HR. Patient was at a follow up visit with his PCP when his HR was noted to be 170. He has chronic shortness of breath and denies any change. He has a chronic cough but has noticed worsening of that and is bringing up a lot of clear-yellow sputum. He denies any chest pain or palpitations. He did have an episode of afib with RVR after RLL lobectomy 10/2023. Has not recurred to his knowledge. He is not on AC or rate controlling medications. He denies recent changes in medications. He also denies fever, chills, abdominal pain, nausea, vomiting, diarrhea, dysuria, or leg swelling. In ED, BP 83/55. WBC 12.07 w/LS. Hgb 11.8. PLT 448. Ca 7.8. Mg 1.6. HsT 39, 35, 39. Blood cultures x 2 IP. CTA chest: Thick-walled right upper lobe cavitary mass is noted with an associated air-fluid level. This may be an infectious/inflammatory process as it was not present on the exam from 05/08/2024. Malignancy is not excluded. Mediastinal lymphadenopathy may be reactive. He was given 6 mg and 12 mg of adenosine by EMS. In ED, he was given gabapentin, IV Lopressor, PO lopressor, 1L NSB, vancomycin, and Zosyn. PAST MEDICAL HISTORY Diagnosis Date Abdominal aortic aneurysm without rupture Elevated PSA Hearing loss HTN (hypertension) Lumbosacral neuritis Malignant neoplasm of prostate (HCC) Other and unspecified hyperlipidemia Prostate cancer (HCC) 2020 xrt at [facility] [place] Smoker former quit 2021 Spinal stenosis of lumbar region with neurogenic claudication PAST SURGICAL HISTORY Procedure Laterality Date COLONOSCOPY 05/28/2008 HERNIA REPAIR HX age 20 PROSTATE BIOPSY HX 2020 REMOVAL OF LUNG,LOBECTOMY Right 11/15/2023 Robotic-assisted right lower lobectomy with right lower lobe bronchoplasty closure of airway and mediastinal and hilar lymph node dissection, intercostal and phrenic nerve block FAMILY HISTORY Problem Relation Age of Onset other (high blood pressure [Other]) Mother Diabetes Mother Hearing Loss Mother Prostate Cancer Other SOCIAL HISTORY[1] PRIOR TO ADMISSION MEDICATIONS: Prior to Admission Medications Prescriptions Last Dose Informant Patient Reported? Taking? albuterol HFA (PROVENTIL HFA, VENTOLIN HFA) 90 mcg/actuation inhaler No No Sig: Inhale 2 puffs as instructed every 4 hours as needed. Patient not taking: Reported on 10/24/2024 atorvastatin (LIPITOR) 20 mg tablet No No Sig: Take 1 tablet by mouth once daily. fluticasone-salmeterol (WIXELA INHUB) 250-50 mcg/dose inhaler No No Sig: Inhale 1 puff as instructed two times a day. gabapentin (NEURONTIN) 300 mg capsule No No Sig: TAKE 2 CAPSULES BY MOUTH 3 TIMES A DAY lisinopril-hydroCHLOROthiazide (ZESTORETIC) 20-12.5 mg per tablet No No Sig: Take 1 tablet by mouth once daily. senna-docusate (SENNA WITH DOCUSATE SODIUM) 8.6-50 mg per tablet No No Sig: Take 1 tablet by mouth two times a day. Facility-Administered Medications: None ALLERGIES No Known Allergies REVIEW OF SYSTEM: GENERAL: No weight loss, malaise or fevers HEENT: Negative for frequent or significant headaches, No changes in hearing or vision, no nose bleeds or other nasal problems NECK: Negative for lumps, goiter, pain and significant neck swelling RESPIRATORY: Positive for shortness of breath (chronic) and cough. Negative for wheezing. CARDIOVASCULAR: Negative for chest pain, leg swelling, CHF or palpitations GI: No nausea, vomiting, or diarrhea : No history of dysuria, frequency or incontinence MUSCULOSKELETAL: Negative for joint pain or swelling, back pain or muscle pain SKIN: Negative for lesions, rash, and itching PSYCH: Negative for sleep disturbance, mood disorder and recent psychosocial stressors NEURO: No history of headaches, syncope, paralysis, seizures or tremors Objective PHYSICAL EXAM: BP 110/66 Pulse 67 Temp (Src) 97.9 (Oral) Resp 20 Wt 157 lb (71.2kg) SpO2 94% O2 Therapy: Room Air PHYSICAL EXAM: Physical Exam Performed GENERAL: Alert, no distress, cooperative SKIN: Skin color, texture, turgor normal. No rashes or lesions. HEAD/SINUSES: No significant findings EYES: PERRLA, EOMI OROPHARYNX: Lips, mucosa, and tongue normal. Oropharynx normal. NECK: No jugulovenous distention and no mass BACK: No CVAT LUNGS: Lungs clear to auscultation, no wheezing, rales, or rhonchi CARDIAC: Normal S1 and S2; no rubs, murmurs, or gallops ABDOMEN: Abdomen soft, non-tender, BS normal EXTREMITIES: Extremities normal, no deformities, edema NEURO: AANDO x 3 PULSES: 2+ radial, 2+ dorsalis pedis Lines, Drains, and Airways Line Duration Peripheral 10/24/242021 [facility] Right Antecubital 20 Gauge <1 day DATA: Diagnostic tests reviewed for today's visit: Most recent labs Most recent imaging Most recent EKG Assessment AND Plan Paroxysmal atrial fibrillation (HCC) Present on Admission: Yes Elevated troponin Present on Admission: Yes HR of 170s at PCP office today, given 6 AND 12 mg of Adenosine by EMS for possible SVT EKG: atrial fibrillation with RVR @ 111 Converted to NSR after IV and PO Lopressor HsT 39, 35, 39 H/o post-op afib, not on rate controlling meds or AC PLAN: Tele Keep K>/=4, Mg >/=2 ECHO Defer to cardiology on continuing PO Lopressor Cardiology consult Cancer of lower lobe of right lung (HCC) Present on Admission: Yes Cavitary lesion of lung Present on Admission: Yes Leukocytosis Present on Admission: Yes H/o cancer of RLL s/p lobectomy in 10/2023, at that time appeared more abscess and chemotherapy was not recommended CTA chest shows thick-walled right upper lobe cavitary mass is noted with an associated air-fluid level. This may be an infectious/inflammatory process as it was not present on the exam from 05/08/2024. Malignancy is not excluded. Mediastinal lymphadenopathy may be reactive. 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) Present on Admission: Yes No s/s of exacerbation Cont home inhaler Medication Reconciliation: Completed Medication and Non-Pharmacologic VTE Prophylaxis/Anticoagulants VTE Prophylaxis: VTE prophylaxis appropriate Disposition: Home Plan of care discussed with Provider, RN, Patient Plan communicated to: N/A SIGNATURE: Anderson Rodriguez PA-C PATIENT NAME: Stevie Angeles DATE: October 24, 2024 TIME: 10:22 PM [1] Social History Tobacco Use Smoking status: Former Current packs/day: 0.00 Average packs/day: 1 pack/day for 40.0 years (40.0 ttl pk-yrs) Types: Cigarettes Start date: 07/1981 Quit date: 07/2021 Years since quittin.2 Passive exposure: Past Smokeless tobacco: Never Vaping Use Vaping status: Never Used Substance Use Topics Alcohol use: Not Currently Alcohol/week: 6.0 standard drinks of alcohol Types: 6 Glasses of wine per week Drug use: No BACTERIA BLD CULT Observed: 10/24/2024 8:30 PM Status: F Source: [facility] CULTURE, BLOOD: No growth 5 days GRAM STAIN: This blood culture had less than the recommended 8 ml per bottle, which could decrease the sensitivity of the test. Performed By: #### [id number] ### # [facility] CLIA [id number] [address] [place] [address] [place] BACTERIA BLD CULT Observed: 10/24/2024 8:22 PM Status: F Source: [facility] CULTURE, BLOOD: No growth 5 days GRAM STAIN: This blood culture had less than the recommended 8 ml per bottle, which could decrease the sensitivity of the test. Performed By: #### [id number] ### # [facility] CLIA [id number] [address] [place] [address] [place] CONSULT PROG Observed: 10/24/2024 8:19 PM Status: COMPLETED Source: [facility] HNO ID: [id number] Author: MAUREEN SHERMAN RPh Service: Pharmacy Author Type: Pharmacist Type: Consult Progress Note Filed: 10/24/2024 20:45 Note Text: Attestation signed by Maureen Sherman RPh at 10/24/2024 8:45 PM Maureen Sherman RPh PHARMACY VANCOMYCIN DOSING NOTE Patient Name: Stevie Angeles Admission Date: 10/24/2024 Date of Consult: 10/24/2024 Time of Consult: 8:19 PM Indication: Respiratory infection Goal Range: 15-20 mcg/mL RECOMMENDATIONS/PLAN: Pharmacy consulted for vancomycin dosing for Stevie Angeles, a 74 year old male. 1. Patient is currently ordered Vancomycin 1 g IV q12h. Today is day 1 of therapy. 2. No vancomycin level has been drawn for this dosing regimen. 3. The present dose of vancomycin is the recommended dosage for this patient at this time. Continue therapy as prescribed. 4. The next vancomycin level will be ordered for 10/26 unless clinically indicated sooner. (Pharmacy will order) 5. S. aureus nasal PCR swab ordered We will follow patient renal function, vancomycin levels and doses with you during the course of therapy. Additional recommendations will appear in follow up notes. If you have any questions, please contact pharmacy at [phone]. Age: [age] year old Allergies: ALLERGIES No Known Allergies Last 3 Encounter Wt Readings: Date: Wt: 10/24/2024 71.2 kg (157 lb) 10/24/2024 71.6 kg (157 lb 11.8 oz) 09/11/2024 79.2 kg (174 lb 9.7 oz) Last 1 Encounter Ht Readings: Date: Ht: 10/24/2024 172.2 cm (5' 7.8) CrCl: 143 mL/min Temp (24hrs), Av.6 ?C (97.9 ?F), Min:36.6 ?C (97.9 ?F), Max:36.6 ?C (97.9 ?F) - Current Temp: 36.6 ?C (97.9 ?F) Labs BUN (mg/dL) Date Value 10/24/2024 6 (L) 06/23/2024 10 06/22/2024 10 Creatinine (mg/dL) Date Value 10/24/2024 0.45 (L) 06/23/2024 0.59 (L) 06/22/2024 0.51 (L) WBC (k/uL) Date Value 10/24/2024 12.07 (H) 06/23/2024 5.93 06/22/2024 5.90 Vancomycin Levels: No results found for: MACKENZIE Guerrero [facility] HIGH SENSITIVITY TROPONIN T (SECOND) Collected: 10/24/2024 6:57 PM Status: F Source: [facility] Order Comment: Specimen Type : BLOOD SPECIMEN Ordering Facility: [facility] Address: [address] [place] [address] TYPE CODE TESTS RESULT OUT OF RANGE REFERENCE UNITS LAB 37783-7(LOINC) Troponin T SerPl HS-mCnc 39 High <12 ng/L Performed By: #### [id number] # ### [facility] CLIA [id number] [address] [place] [address] [facility] CTA CHEST (NON GATED) W IVCO N PE Observed: 10/24/2024 6:05 PM Status: F Source: [facility] * * *Final Report* * * DATE OF EXAM: Oct 24 2024 6:05PM [facility] 0564 - CTA CHEST (NON GATED) W IVCON PE / PROCEDURE REASON: Pulmonary embolism (PE) suspected, high prob * * * * Physician Interpretation * * * * EXAMINATION: CHEST CTA (NON GATED) WITH CONTRAST (PULMONARY EMBOLISM PROTOCOL) Clinical History: Palpitations Technique: Spiral CT acquisition of the chest from the thoracic inlet to the upper abdomen following IV contrast. Axial 1 and 3 mm thick slices plus coronal and sagittal reformatted images. MQ: CTCP_5 Contrast: 80 mL Omnipaque [address] Radiation dose: Integrated Dose-length product (DLP) for this visit = 344 mGy*cm CT Dose Reduction Employed: Automated exposure control(AEC) and iterative recon CTA: Post-processed images (Maximum intensity Projection (MIP), Volume-rendered (VR), or Surface shaded display images (SSD) were created, reviewed and archived. Comparison: 05/08/2024 RESULT: Limitations: None. Evaluation for thromboembolic disease: - Right heart chambers: No thromboembolic disease. - Main pulmonary arteries: No thromboembolic disease. - Lobar pulmonary arteries: No thromboembolic disease. - Segmental pulmonary arteries: No thromboembolic disease. - Subsegmental pulmonary arteries: No thromboembolic disease. - Additional pulmonary artery findings: The main pulmonary artery is normal in caliber. Lines, tubes, and devices: None. Lung parenchyma and airways: Evaluation of lung parenchyma demonstrates a thick-walled right upper lobe cavitary mass measuring 10.3 cm AP by 5.9 cm transverse by 9.2 cm craniocaudal. This abuts the pleural surface and contains an air-fluid level. It is new since previous exam. The patient has had prior right lower lobectomy. Emphysematous changes are seen in the lungs. Within the left upper lobe is a subsolid 1.8 cm nodular density as measured on image 59 of series 301. A few peripheral groundglass opacities are seen in the anterior lateral left upper lobe. Groundglass infiltrates are also seen in the right middle lobe. No pneumothorax is identified. Lower neck, lymph nodes, and mediastinum: Pathologically enlarged right paratracheal lymph node/mediastinal lymph nodes are seen measuring up to 12 mm in short axis. These are new since previous exam. Heart, pericardium, and thoracic vessels: The thoracic aorta is normal in caliber. The cardiac chambers are normal in size. No coronary artery atherosclerotic calcifications are noted, although the study is not optimized for coronary assessment. No pericardial effusion or thickening. Bones and soft tissues: No destructive bone lesion. Chest wall is unremarkable. Upper abdomen: No abnormality in the imaged upper abdomen. Localizer images: No additional findings. IMPRESSION: Thick-walled right upper lobe cavitary mass is noted with an associated air-fluid level. This may be an infectious/inflammatory process as it was not present on the exam from 05/08/2024. Malignancy is not excluded. Mediastinal lymphadenopathy may be reactive. Agency Trainer: IMMANUEL Transcribe Date/Time: Oct 24 2024 6:55P Dictated by : BRIGIDA WEIR MD This examination was interpreted and the report reviewed and electronically signed by: BRIGIDA WEIR MD on Oct 24 2024 7:03PM EST [id number] ALLIED HEALTH Observed: 10/24/2024 6:01 PM Status: COMPLETED Source: [facility] HNO ID: [id number] Author: DEN TORRES TECHNOLOGIST Service: Radiology Author Type: Technologist Type: Allied Health Filed: 10/24/2024 18:04 Note Text: Radiology Service Progress Note PATIENT NAME: Stevie Angeles DATE OF SERVICE: October 24, 2024 TIME: 6:04 PM PATIENT IDENTITY VERIFICATION COMPLETED USING TWO (2) IDENTIFIERS: Name and Date of confirmed by patient verbally and Name and Date of confirmed by identification band. FALL SCREENING: Has the patient had 2 falls in the last year or 1 fall with injury or currently using an Ambulatory Assistive Device (Walker, Cane, Wheelchair, Crutches, etc.)? No PATIENT GENDER DATA: Assigned male at PATIENT RELEVANT IMPLANT DATA REVIEWED: Yes PATIENT PRESENTS WITH AN IMPLANTABLE OR ATTACHED PAUNCH TRIMMER: No RADIOLOGY DEPARTMENT: CT; Exam(s) Completed: PE Study. Anesthesia: No PERIPHERAL IV DATA: Inpatient: see LDA documentation SIGNED BY: TECHNOLOGIST Bettye October 24, 2024 6:04 PM HIGH SENSITIVITY TROPONIN T (INITIAL) Collected: 10/24/2024 5:43 PM Status: F Source: [facility] Order Comment: Specimen Type : BLOOD SPECIMEN Ordering Facility: [facility] Address: [address] [place] [address] TYPE CODE TESTS RESULT OUT OF RANGE REFERENCE UNITS LAB 68745-5(LOINC) Troponin T SerPl HS-mCnc 35 High <12 ng/L Performed By: #### [id number] # ### [facility] CLIA [id number] [address] [place] [address] [place] ED PROV NOTE Observed: 10/24/2024 4:03 PM Status: COMPLETED Source: [facility] HNO ID: [id number] Author: HAILE VASQUEZ DO Service: Emergency Medicine Author Type: Physician Type: ED Provider Notes Filed: 10/24/2024 20:50 Note Text: ED Provider Note Patient Name: Stevie Angeles : 1950 SERVICE DATE: 10/24/24 History Patient presents with: Palpitations: Pt presents to ED via EMS from Dr Rodriguez. Pt was tachycardic for office, found to be in SVT. 6mg and 12mg of adenosine was given by EMS. Pt converted, pt now in AFIB RVR. Pt has no complaints of chest pain or Shortness of Breath Stevie Angeles is a 74-year-old male who is presenting to the emergency department for evaluation of palpitations. En route to the hospital patient was tachycardic. Thought to be possibly related to SVT though adenosine did not help. On arrival here it appears he is going in and out of what looks like atrial flutter. Patient states he is overall asymptomatic at this time and states he has been feeling ill given his cancer treatment. Denies acute changes at this time. PAST MEDICAL HISTORY Diagnosis Date Abdominal aortic aneurysm without rupture Elevated PSA Hearing loss HTN (hypertension) Lumbosacral neuritis Malignant neoplasm of prostate (HCC) Other and unspecified hyperlipidemia Prostate cancer (HCC) 2020 xrt at [facility] [place] Smoker former quit 2021 Spinal stenosis of lumbar region with neurogenic claudication PAST SURGICAL HISTORY Procedure Laterality Date COLONOSCOPY 05/28/2008 HERNIA REPAIR HX age 20 PROSTATE BIOPSY HX 2020 REMOVAL OF LUNG,LOBECTOMY Right 11/15/2023 Robotic-assisted right lower lobectomy with right lower lobe bronchoplasty closure of airway and mediastinal and hilar lymph node dissection, intercostal and phrenic nerve block FAMILY HISTORY Problem Relation Age of Onset other (high blood pressure [Other]) Mother Diabetes Mother Hearing Loss Mother Prostate Cancer Other Social History[1] ALLERGIES No Known Allergies Review of Systems Constitutional: Positive for fatigue. Negative for chills and fever. HENT: Negative for congestion, nosebleeds and sore throat. Eyes: Negative for pain, discharge and redness. Respiratory: Positive for shortness of breath. Negative for cough. Cardiovascular: Positive for palpitations. Gastrointestinal: Negative for abdominal pain, nausea and vomiting. Genitourinary: Negative for dysuria and hematuria. Musculoskeletal: Negative for back pain. Skin: Negative for pallor and rash. Neurological: Negative for headaches. Psychiatric/Behavioral: Negative for confusion. Physical Exam Vitals [10/24/24 1536] BP Pulse Temp Temp src Resp SpO2 Weight Height (!) 83/55 80 36.6 ?C (97.9 ?F) Oral 20 97 % 71.2 kg (157 lb) -- Physical Exam Vitals and nursing note reviewed. Constitutional: General: He is not in acute distress. Appearance: He is well-developed. HENT: Head: Normocephalic and atraumatic. Right Ear: External ear normal. Left Ear: External ear normal. Eyes: General: No scleral icterus. Right eye: No discharge. Left eye: No discharge. Conjunctiva/sclera: Conjunctivae normal. Pupils: Pupils are equal, round, and reactive to light. Cardiovascular: Rate and Rhythm: Normal rate. Rhythm irregular. Heart sounds: No murmur heard. No friction rub. No gallop. Comments: Occasional tachycardia, likely atrial flutter Pulmonary: Effort: Pulmonary effort is normal. No respiratory distress. Breath sounds: Normal breath sounds. No wheezing or rales. Chest: Chest wall: No tenderness. Abdominal: General: Bowel sounds are normal. There is no distension. Palpations: Abdomen is soft. There is no mass. Tenderness: There is no abdominal tenderness. There is no guarding or rebound. Musculoskeletal: General: No tenderness or deformity. Normal range of motion. Cervical back: Normal range of motion and neck supple. Lymphadenopathy: Cervical: No cervical adenopathy. Skin: General: Skin is warm and dry. Coloration: Skin is not pale. Findings: No erythema or rash. Neurological: Mental Status: He is alert and oriented to person, place, and time. Diagnostic Testing ED Labs Ordered and Reviewed COMPREHENSIVE METABOLIC PANEL - Abnormal; Notable for the following components: Result Value Ref Range Protein, Total 6.0 (*) 6.3 - 8.0 g/dL Albumin 2.8 (*) 3.9 - 4.9 g/dL Calcium, Total 7.8 (*) 8.5 - 10.2 mg/dL BUN 6 (*) 9 - 24 mg/dL Creatinine 0.45 (*) 0.73 - 1.22 mg/dL All other components within normal limits MAGNESIUM - Abnormal; Notable for the following components: Magnesium 1.6 (*) 1.7 - 2.3 mg/dL All other components within normal limits COMPLETE BLOOD COUNT AND DIFFERENTIAL - Abnormal; Notable for the following components: WBC 12.07 (*) 3.70 - 11.00 k/uL RBC 3.84 (*) 4.20 - 6.00 m/uL Hemoglobin 11.8 (*) 13.0 - 17.0 g/dL Hematocrit 36.8 (*) 39.0 - 51.0 % Platelet Count 448 (*) 150 - 400 k/uL MPV 8.6 (*) 9.0 - 12.7 fL Abs Neut 9.89 (*) 1.45 - 7.50 k/uL All other components within normal limits HIGH SENSITIVITY TROPONIN T - Abnormal; Notable for the following components: HARIKA High Sensitivity 39 (*) <12 ng/L All other components within normal limits HIGH SENSITIVITY TROPONIN T (INITIAL) - Abnormal; Notable for the following components: HARIKA High Sensitivity 35 (*) <12 ng/L All other components within normal limits HIGH SENSITIVITY TROPONIN T (SECOND) - Abnormal; Notable for the following components: HARIKA High Sensitivity 39 (*) <12 ng/L All other components within normal limits LIPASE - Normal URINALYSIS (WITH MICROSCOPIC) WITH CULTURE IF INDICATED STAPHYLOCOCCUS AUREUS AND MRSA SCREEN, PCR, NASAL BACTERIAL CULTURE, BLOOD BACTERIAL CULTURE, BLOOD Procedures ED Course / Clinical Impression Clinical Impressions as of 10/24/242049 Typical atrial flutter (HCC) Cavitary lesion of lung Acute cough MDM / Disposition / Plan Stevie Angeles is a 74-year-old male is presenting to the emergency department with palpitations and hypotension. Found to be in atrial flutter with RVR. This was quickly resolved with IV metoprolol. CT imaging of his chest does show advancement of his lung cancer with now cavitary lesion with air-fluid levels. No PE noted. Remainder workup here unremarkable however with the new onset of atrial flutter and worsening imaging patient will be admitted for cardiology consult and heme-onc consult. History and Record Review Clinical information obtained from an independent historian. History obtained from or confirmed by: EMS personnel. External record(s) reviewed: PDMP reviewed. Differential Diagnoses - Cavitary lesion in the lung - Atrial flutter - ACS is less likely for the following reason(s): HANDP not suggestive - Pulmonary embolism is less likely for the following reason(s): no evidence on imaging - Severe electrolyte imbalance is less likely for the following reason(s): laboratory studies not suggestive Management Management of the patient was discussed with:admitting team Discussion with admitting team included: Dr. Muñoz Radiology Reports CTA CHEST (NONGATED) W IVCON PE Final Result IMPRESSION: Thick-walled right upper lobe cavitary mass is noted with an associated air-fluid level. This may be an infectious/inflammatory process as it was not present on the exam from 05/08/2024. Malignancy is not excluded. Mediastinal lymphadenopathy may be reactive. Agency Trainer: IMMANUEL Transcribe Date/Time: Oct 24 2024 6:55P Dictated by : BRIGIDA WEIR MD This examination was interpreted and the report reviewed and electronically signed by: BRIGIDA WEIR MD on Oct 24 2024 7:03PM EST Meds Given During Visit ED Medication Administration from 10/24/2024 1529 to 10/24/2024 2050 Date/Time Order Dose Route Action 10/24/2024 1601 EDT NaCl 0.9% 1,000 mL iv bolus 1,000 mL INTRAVENOUS New Bag/Syringe/Bottle 10/24/2024 1701 EDT NaCl 0.9% 1,000 mL iv bolus 0 mL INTRAVENOUS Infusion Complete 10/24/2024 1601 EDT metoprolol 5 mg injection (LOPRESSOR) 5 mg INTRAVENOUS Given 10/24/2024 1745 EDT metoprolol tartrate (short acting) 25 mg tab(s) (LOPRESSOR) 25 mg ORAL Given 10/24/2024 1853 EDT gabapentin 300 mg cap(s) (NEURONTIN) 300 mg ORAL Given 10/24/20242028 EDT piperacillin-tazobactam iv piggyback 3.375 g in dextrose (iso-osmotic) 50 mL (ZOSYN) 3.375 g INTRAVENOUS New Bag/Syringe/Bottle 10/24/2024 2030 EDT gabapentin 300 mg cap(s) (NEURONTIN) 300 mg ORAL Given Disposition The patient was admitted. Counseled patient regarding lab results, radiology results and suspected diagnosis. Admitted to Regular Nursing Floor. Critical Care I spent a total of 15 minutes of critical care time in the evaluation and management of this patient. This was necessary to treat or prevent deterioration of the following condition(s): cardiovascular impairment, which the patient had and/or has high probability of suddenly developing. The patient received IV fluids (rate controlling medications) during the time that critical care was provided. Critical care time excludes separately billed procedures. Critical care time documentation entered by Haile Vasquez I, DO. SIGNATURE: Haile Vasquez DO - [1] Social History Tobacco Use Smoking status: Former Current packs/day: 0.00 Average packs/day: 1 pack/day for 40.0 years (40.0 ttl pk-yrs) Types: Cigarettes Start date: 07/1981 Quit date: 07/2021 Years since quittin.2 Passive exposure: Past Smokeless tobacco: Never Vaping Use Vaping status: Never Used Substance and Sexual Activity Alcohol use: Not Currently Alcohol/week: 6.0 standard drinks of alcohol Types: 6 Glasses of wine per week Drug use: No Sexual activity: Not on file HAILE VASQUEZ I 10/24/242049 CBC W AUTO DIFF BLD Collected: 10/24/2024 4:[address] atus: F Source: [facility] Order Comment: Specimen Type : BLOOD SPECIMEN Ordering Facility: [facility] Address: [address] [place] [address] TYPE CODE TESTS RESULT OUT OF RANGE REFERENCE UNITS LAB 6690-2(LOINC) WBC # Bld Auto 12.07 High 3.70-11.00 k/uL LAB 789-8(LOINC) RBC # Bld Auto 3.84 Low 4.20-6.00 m/ uL LAB 718-7(LOINC) Hgb Bld-mCnc 11.8 Low 13.0-17.0 g/dL LAB 4544-3(LOINC) Hct VFr Bld Auto 36.8 Low 39.0-51.0 % LAB 787-2(LOINC) MCV RBC Auto 95.8 80.0-100.0 fL LAB 785-6(LOINC) MCH RBC Qn Auto 30.7 26.0-34.0 p g LAB 786-4(LOINC) MCHC RBC Auto-mCnc 32.1 30.5-36.0 g/dL LAB 51392-3([facility]) RDW RBC-Rto 14.4 11.5-15.0 % LAB 777-3([facility]) Platelet # Bld Auto 448 High 150-400 k/uL LAB 53040-0([facility]) PMV Bld Auto 8.6 Low 9.0-12.7 fL LAB 770-8([facility]) Neutrophils/leuk NFr Bld Auto 82.1 % LAB 751-8([facility]) Neutrophils # Bld Auto 9.89 High 1.45-7.50 k/uL LAB 736-9([facility]) Lymphocytes/leuk NFr Bld Auto 9.9 % LAB 731-0([facility]) Lymphocytes # Bld Auto 1.20 1.00-4.00 k/uL LAB 5905-5([facility]) Monocytes/leuk NFr Bld Auto 6.6 % LAB 742-7([facility]) Monocytes # Bld Auto 0.80 <0.87 k/uL LAB 713-8([facility]) Eosinophil/leuk NFr Bld Auto 0.4 % LAB 711-2([facility]) Eosinophil # Bld Auto 0.05 <0.46 k/uL LAB 706-2([facility]) Basophils/leuk NFr Bld Auto 0.7 % LAB 704-7([facility]) Basophils # Bld Auto 0.09 <0.11 k/uL LAB 85967-6([facility]) Imm Granulocytes/fidelia k NFr Bld Auto 0.3 % LAB 34007-7([facility]) Imm Granulocytes # Bld Auto 0.04 <0.10 k/uL LAB 53956-0([facility]) nRBC/100 WBC Bld-Rto 0.0 /100 WBC LAB 771-6([facility]) nRBC # Bld Auto <0.01 <0.01 k/u L LAB 47574-8([facility]) Differential method Bld Auto Performed By: #### 80074-4 # ### [facility] CLIA [id number] [address] [place] [address] [place] COMP METAB 2000 PNL SERPL Collected: 4:00 PM Status: F Source: [facility] Order Comment: Specimen Type : BLOOD SPECIMEN Ordering Facility: [facility] Address: [address], [place] [id number] TYPE CODE TESTS RESULT OUT OF RANGE REFERENCE UNITS LAB 2885-2(LOINC) Prot SerPl-mCnc 6.0 Low 6.3-8.0 g/dL LAB 1751-7(LOINC) Albumin SerPl-mCnc 2.8 Low 3.9-4.9 g/dL LAB 34972-6(LOINC) Calcium SerPl-mCnc 7.8 Low 8.5-10.2 mg/dL LAB 1975-2(LOINC) Bilirub SerPl-mCnc 0.3 0.2-1.3 mg/dL LAB 6768-6(LOINC) ALP SerPl-cCnc 104 38-113 U/L LAB 1920-8(LOINC) AST SerPl-cCnc 28 14-40 U/L LAB 1742-6(LOINC) ALT SerPl-cCnc 52 10-54 U/L LAB 2345-7(LOINC) Glucose SerPl-mCnc 91 74-99 mg/dL Result Comment: The [place] [employer] (ADA) provides guidance for cutoff values for fasting glucose and random glucose. The ADA defines fasting as no caloric intake for at least 8 hours. Fasting plasma glucose results between 100 to 125 mg/dL indicate increased risk for diabetes (prediabetes). Fasting plasma glucose results greater than or equal to 126 mg/dL meet the criteria for diagnosis of diabetes. In the absence of unequivocal hyperglycemia, results should be confirmed by repeat testing. In a patient with classic symptoms of hyperglycemia or hyperglycemic crisis, random plasma glucose results greater than or equal to 200 mg/dL meet the criteria for diagnosis of diabetes. Reference: Standards of Medical Care in Diabetes 2016, [place] [employer]. Diabetes Care. 2016.39(Suppl 1). LAB 3094-0(LOINC) BUN SerPl-mCnc 6 Low 9-24 mg/dL LAB 2160-0(LOINC) Creat SerPl-mCnc 0.45 Low 0.73-1.22 mg/dL LAB 2951-2(LOINC) Sodium SerPl-sCnc 140 136-144 mmol/L LAB 2823-3(LOINC) Potassium SerPl-sCnc 3.8 3.7-5.1 mmol/L LAB 2075-0(LOINC) Chloride SerPl-sCnc 106 98-107 mmol/L LAB 2027-9(LOINC) CO2 SerPl-sCnc 25 22-30 mmol/L LAB 91071-9(LOINC) Anion Gap SerPl-sCnc 9 8-15 mmol/L LAB 89004-4(LOINC) eGFRcr SerPlBld CKD-EPI 2020 112 >=60 mL/min/1. 73m??? Result Comment: Estimated Gl omerular Filtration Rate (eGFR) is calculated using the 2020 CKD-EPI creatinine equation. This equation utilizes serum creatinine, sex, and age as parameters. The creatinine assay has traceable calibration to isotope dilution-mass spectrometry. Refer to KDIGO guidelines for clinical interpretation. In patients with unstable renal function, e.g. those with acute kidney injury, the eGFR may not accurately reflect actual GFR. Performed By: #### 76345-0, HSTNT, 21235-3, 3040-3 #### [facility] CLIA [id number] [address] [place] HIGH SENSITIVITY TROPONIN T Collected: 10/24/2024 4:0 0 PM Status: F Source: [facility] Order Comment: Specimen Type : BLOOD SPECIMEN Ordering Facility: [facility] Address: [address] [place] [address] TYPE CODE TESTS RESULT OUT OF RANGE REFERENCE UNITS LAB 22708-2([facility]) Troponin T SerPl HS-mCnc 39 High <12 ng/L Performed By: #### 67804-5, HSTNT, 11954-8, 3040-3 #### [facility] CLIA [id number] [address] [place] [address] [place] LIPASE SERPL-CCNC Collected: 10/24/2024 4:00 PM Stat us: F Source: [facility] Order Comment: Specimen Type : BLOOD SPECIMEN Ordering Facility: [facility] Address: [address] [place] [address] TYPE CODE TESTS RESULT OUT OF RANGE REFERENCE UNITS LAB 3040-3(LOINC) Lipase SerPl-cCnc 19 16-61 U/L Performed By: #### 69713-5, HSTNT, 67986-3, 3040-3 #### [facility] CLIA [id number] [address] [place] [address] [facility] MAGNESIUM SERPL-MCNC Collected: 10/24/2024 4:00 PM S tatus: F Source: [facility] Order Comment: Specimen Type : BLOOD SPECIMEN Ordering Facility: [facility] Address: [address] [place] [address] TYPE CODE TESTS RESULT OUT OF RANGE REFERENCE UNITS LAB 94130-7(LOINC) Magnesium SerPl-mCnc 1.6 Low 1.7-2.3 mg/dL Performed By: #### 41669-3, HSTNT, 15808-3, 3040-3 #### [facility] CLIA [id number] [address] ED NOTE Observed: 10/24/2024 3:41 PM Status: COMPLETED Source: [facility] HNO ID: [id number] Author: JOSE ARMANDO CASSIDY RN Service: ? Author Type: Registered Nurse Type: ED Notes Filed: 10/24/2024 15:41 Note Text: Dr العراقي notified of BP EKG Observed: 10/24/2024 3:32 PM Status: F Source: [facility] Ventricular Rate : 111 BPM QRS Duration : 74 ms Q-T Interval : 336 ms QTC Calculation(Bazett) : 456 ms Calculated R Dunlow : 53 degrees Calculated T Dunlow : 34 degrees ATRIAL FIBRILLATION WITH RAPID VENTRICULAR RESPONSE WITH PREMATURE VENTRICULAR OR ABERRANTLY CONDUCTED COMPLEXES ABNORMAL ECG Confirmed by HAILE VASQUEZ DO ([id number]) on 10/24/2024 8:50:25 PM NAME : STEVIE ANGELES PID : [id number] : 1950 Gender : Male Race : ORD : Procedure Date : Oct 24 2024 15:32:23 Edit Date : Oct 24 2024 20:50:29 Diagnosis: ATRIAL FIBRILLATION WITH RAPID VENTRICULAR RESPONSE WITH PREMATURE VENTRICULAR OR ABERRANTLY CONDUCTED COMPLEXES ABNORMAL ECG Confirmed by HAILE VASQUEZ DO ([id number]) on 10/24/2024 8:50:25 PM Test Reason : Location : 1 : ER ED Overread By : HAILE VASQUEZ DO Edited By : HAILE VASQUEZ DO Referred By : , Acquired by : cc, ED NOTE Observed: 10/24/2024 3:30 PM Status: COMPLETED Source: [facility] HNO ID: [id number] Author: JOSE ARMANDO CASSIDY RN Service: ? Author Type: Registered Nurse Type: ED Notes Filed: 10/24/2024 15:30 Note Text: Bed: ED-02 Expected date: 10/24/24 Expected time: Means of arrival: Comments: VC PROGRESS Observed: 10/24/2024 2:29 PM Status: COMPLETED Source: [facility] HNO ID: [id number] Author: PRAFUL SU MD Service: ? Author Type: Physician Type: Progress Notes Filed: 10/24/2024 14:33 Note Text: SUBJECTIVE: Stevie Angeles is a 74 year old male Patient presents with: Follow Up He has been doing okay, noted with rapid heart rate today on arrival. No change in dyspnea noted. He does not note previous episodes rapid heart rate. CURRENT MEDICATIONS: Current Outpatient Medications on File Prior to Visit Medication Sig lisinopril-hydroCHLOROthiazide (ZESTORETIC) 20-12.5 mg per tablet Take 1 tablet by mouth once daily. atorvastatin (LIPITOR) 20 mg tablet Take 1 tablet by mouth once daily. senna-docusate (SENNA WITH DOCUSATE SODIUM) 8.6-50 mg per tablet Take 1 tablet by mouth two times a day. fluticasone-salmeterol (WIXELA INHUB) 250-50 mcg/dose inhaler Inhale 1 puff as instructed two times a day. gabapentin (NEURONTIN) 300 mg capsule TAKE 2 CAPSULES BY MOUTH 3 TIMES A DAY albuterol HFA (PROVENTIL HFA, VENTOLIN HFA) 90 mcg/actuation inhaler Inhale 2 puffs as instructed every 4 hours as needed. (Patient not taking: Reported on 10/24/2024) No current facility-administered medications on file prior to visit. PROBLEM LIST: ACTIVE PROBLEM LIST Glucose Intolerance (Impaired Glucose Tolerance) Primary Hypertension Mixed Hyperlipidemia Cigarette Nicotine 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 Paresthesias Lumbosacral Neuritis Infrarenal Abdominal Aortic Aneurysm (Aaa) Without Rupture Hdl Deficiency Prostate Cancer (Hcc) Paroxysmal Atrial Fibrillation (Hcc) Cancer of Lower Lobe of Right Lung (Hcc) Postoperative Pain Stage 1 Mild Copd By Gold Classification (Hcc) Abscess of Lower Lobe of Right Lung Without Pneumonia (Hcc) Pleural Effusion, Left Bronchopleural Fistula (Hcc) Pneumothorax Hearing Loss ALLERGIES: Patient has no known allergies. REVIEW OF SYSTEMS:GENERAL: No weight loss, malaise or fevers RESPIRATORY: Shortness of breath CARDIOVASCULAR: See HPI BP 110/78 (BP Site: Left Arm, BP Position: Sitting, BP Cuff Size: Regular Adult) Pulse (!) 170 Temp 36.7 ?C (98 ?F) (Temporal) Ht 172.2 cm (5' 7.8) Wt 71.6 kg (157 lb 11.8 oz) SpO2 97% BMI 24.13 kg/m? General Appearance: Well appearing, alert, in no acute distress, well-hydrated, well nourished. Lungs: decreased breath sounds, clear to auscultation, no wheezing or rhonchi Heart: rapid rate., NSR Neurologic: grossly intact ASSESSMENT/PLAN: 1. Essential hypertension - ICD9: 401.9, ICD10: I10 (primary diagnosis) - Controlled - Continue current medications - Recommend home blood pressure monitoring, to bring results to next visit - Encouraged sodium restriction, DASH or Mediterranean diet - Recommend regular aerobic exercise 2. Mixed hyperlipidemia - ICD9: 272.2, ICD10: E78.2 - Controlled - Continue current medications - Counseled on healthy diet and regular exercise 3. Prostate cancer (HCC) - ICD9: 185, ICD10: C61 Stable after therapy. 4. Malignant neoplasm of lower lobe of right lung (HCC) - ICD9: 162.5, ICD10: C34.31 Stable after therapy 5. Tachycardia - ICD9: 785.0, ICD10: R00.0 Will need ER evaluation. Praful Su MDMEDICATION: Reviewed with patient REVIEW OF RECORDS: Progress note PATIENT EDUCATION: Discussed diet and Discussed exercise/therapy REVIEW OF TESTS: Labs Praful Su MD CNOV Observed: 10/24/2024 2:20 PM Status: COMPLETED Source: [facility] STEVIE ANGELES ([id number]) 1950 M DEF Date Time Provider Department 10/24/24 2:20 PM PRAFUL SU [facility] During your visit today, we recorded the following information about you: Temperature Pulse Blood pressure Weight 98 degrees 170/minute 110/78 71.6 kg Height 1.722 m Praful Su MD 10/24/2024 2:33 PM Signed SUBJECTIVE: Stevie Angeles is a 74 year old male Patient presents with: Follow Up He has been doing okay, noted with rapid heart rate today on arrival. No change in dyspnea noted. He does not note previous episodes rapid heart rate. CURRENT MEDICATIONS: Current Outpatient Medications on File Prior to Visit Medication Sig lisinopril-hydroCHLOROthiazide (ZESTORETIC) 20-12.5 mg per tablet Take 1 tablet by mouth once daily. atorvastatin (LIPITOR) 20 mg tablet Take 1 tablet by mouth once daily. senna-docusate (SENNA WITH DOCUSATE SODIUM) 8.6-50 mg per tablet Take 1 tablet by mouth two times a day. fluticasone-salmeterol (WIXELA INHUB) 250-50 mcg/dose inhaler Inhale 1 puff as instructed two times a day. gabapentin (NEURONTIN) 300 mg capsule TAKE 2 CAPSULES BY MOUTH 3 TIMES A DAY albuterol HFA (PROVENTIL HFA, VENTOLIN HFA) 90 mcg/actuation inhaler Inhale 2 puffs as instructed every 4 hours as needed. (Patient not taking: Reported on 10/24/2024) No current facility-administered medications on file prior to visit. PROBLEM LIST: ACTIVE PROBLEM LIST Glucose Intolerance (Impaired Glucose Tolerance) Primary Hypertension Mixed Hyperlipidemia Cigarette Nicotine 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 Paresthesias Lumbosacral Neuritis Infrarenal Abdominal Aortic Aneurysm (Aaa) Without Rupture Hdl Deficiency Prostate Cancer (Hcc) Paroxysmal Atrial Fibrillation (Hcc) Cancer of Lower Lobe of Right Lung (Hcc) Postoperative Pain Stage 1 Mild Copd By Gold Classification (Hcc) Abscess of Lower Lobe of Right Lung Without Pneumonia (Hcc) Pleural Effusion, Left Bronchopleural Fistula (Hcc) Pneumothorax Hearing Loss ALLERGIES: Patient has no known allergies. REVIEW OF SYSTEMS:GENERAL: No weight loss, malaise or fevers RESPIRATORY: Shortness of breath CARDIOVASCULAR: See HPI BP 110/78 (BP Site: Left Arm, BP Position: Sitting, BP Cuff Size: Regular Adult) Pulse (!) 170 Temp 36.7 ?C (98 ?F) (Temporal) Ht 172.2 cm (5' 7.8) Wt 71.6 kg (157 lb 11.8 oz) SpO2 97% BMI 24.13 kg/m? General Appearance: Well appearing, alert, in no acute distress, well-hydrated, well nourished. Lungs: decreased breath sounds, clear to auscultation, no wheezing or rhonchi Heart: rapid rate., NSR Neurologic: grossly intact ASSESSMENT/PLAN: 1. Essential hypertension - ICD9: 401.9, ICD10: I10 (primary diagnosis) - Controlled - Continue current medications - Recommend home blood pressure monitoring, to bring results to next visit - Encouraged sodium restriction, DASH or Mediterranean diet - Recommend regular aerobic exercise 2. Mixed hyperlipidemia - ICD9: 272.2, ICD10: E78.2 - Controlled - Continue current medications - Counseled on healthy diet and regular exercise 3. Prostate cancer (HCC) - ICD9: 185, ICD10: C61 Stable after therapy. 4. Malignant neoplasm of lower lobe of right lung (HCC) - ICD9: 162.5, ICD10: C34.31 Stable after therapy 5. Tachycardia - ICD9: 785.0, ICD10: R00.0 Will need ER evaluation. Praful Su MD MEDICATION: Reviewed with patient REVIEW OF RECORDS: Progress note PATIENT EDUCATION: Discussed diet and Discussed exercise/therapy REVIEW OF TESTS: Labs Praful Su MD Allergies As of Date: 10/24/2024 (No Known Allergies) Date Reviewed: 10/24/2024 Reviewed by: Marlee Mejia LPN - Fully Assessed Reason for Visit: Follow Up [171] Primary Visit Diagnosis:Essential hypertension [I10] Other Visit Diagnoses:Mixed hyperlipidemia [E78.2] Prostate cancer (HCC) [C61] Malignant neoplasm of lower lobe of right lung (HCC) [C34.31] Tachycardia [R00.0] Prescriptions as of 10/24/2024 - lisinopril-hydroCHLOROthiazide (ZESTORETIC) 20-12.5 mg per tablet Take 1 tablet by mouth once daily. - atorvastatin (LIPITOR) 20 mg tablet Take 1 tablet by mouth once daily. - senna-docusate (SENNA WITH DOCUSATE SODIUM) 8.6-50 mg per tablet Take 1 tablet by mouth two times a day. - fluticasone-salmeterol (WIXELA INHUB) 250-50 mcg/dose inhaler Inhale 1 puff as instructed two times a day. - albuterol HFA (PROVENTIL HFA, VENTOLIN HFA) 90 mcg/actuation inhaler Inhale 2 puffs as instructed every 4 hours as needed. 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 Follow-up and Disposition History for Encounter Date Provider Department Center 10/24/2024 [id number], NEI*[facility] Encounter Status:Closed by PRAFUL SU on 10/24/24 OFELIA Observed: 10/22/2024 12:00 AM Status: COMPLETED Source: [facility] Telephone ([facility]) STEVIE ANGELES ([id number]) 1950 M DEF Date Time Provider Department 10/22/24 DON LARA UROLMD During your visit today, we recorded the following information about you: Reji Turner 10/22/2024 10:21 AM Signed Provider will not be in office on 01/16 and the appointment the patient had this day has been rescheduled. The appointment has been rescheduled for 03/13/2025, this is his soonest available appointment and it has been added to the wait-list. I left a voicemail to notify patient and will send a [employer] message. Allergies As of Date: 10/22/2024 (No Known Allergies) Date Reviewed: 09/11/2024 Reviewed by: Melita Cerrato MA - Fully Assessed Reason for Visit: Appointment [186] Prescriptions as of 10/22/2024 - lisinopril-hydroCHLOROthiazide (ZESTORETIC) 20-12.5 mg per tablet Take 1 tablet by mouth once daily. - atorvastatin (LIPITOR) 20 mg tablet Take 1 tablet by mouth once daily. - fluticasone-salmeterol (WIXELA INHUB) 250-50 mcg/dose inhaler Inhale 1 puff as instructed two times a day. - albuterol HFA (PROVENTIL HFA, VENTOLIN HFA) 90 mcg/actuation inhaler Inhale 2 puffs as instructed every 4 hours as needed. 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] 04/24/2023 Prostate cancer (HCC) [C61] 09/11/2023 Paroxysmal atrial fibrillation (HCC) [I48.0] 09/11/2023 Cancer of lower lobe of right lung (HCC) [C34.3*11/15/2023 Postoperative pain [G89.18] 11/16/2023 Stage 1 mild COPD by GOLD classification (HCC) *11/17/2023 Abscess of lower lobe of right lung without pne*11/17/2023 Pleural effusion, left [J90] 11/17/2023 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 Author Type: Registered Nurse Type: Progress Notes Filed: 09/20/2024 16:29 Note Text: [facility] Care [facility] Telephonic Outreach Provider Action/FYI Patient identified by Name and Date of . Discussed care with patient. Program Details Chronic Disease Management Status: Enrolled Effective Dates: 09/06/2024 - present Responsible Staff: Flo Chester RN Support and Services: Chronic Obstructive Pulmonary Disease (COPD), High Utilizer Program Goals Targets Target Due Completed Completed By Outcome Annual Medicare Wellness visit addressed 12/09/2024 -- -- -- Annual Pulmonology visit addressed 12/09/2024 -- -- -- Comprehensive COPD education provided 12/09/2024 -- -- -- Patient-stated goal addressed (add comment) 12/09/2024 -- -- -- Biannual PCP visit addressed 12/09/2024 09/13/2024 Flo Chester RN Complete/Scheduled General education provided (managing stress, where to go/how to contact, etc.) 10/07/2024 09/06/2024 Flo Chester RN Complete Intake assessments completed: ADLs, Fall Risk, SDOH 10/07/2024 09/06/2024 Flo Chester RN Complete Assessments CDM Assessment Medications: Do you have any questions about taking your medications or which medications you should be taking?: No Do you need any medication refills at this time, including any of the medication you might take only when needed?: No Social: It can be normal to feel anxious or down during a time like this. Would you like to talk to a mental health professional about how you have been feeling?: No Symptoms: Are you experiencing any new or worsening symptoms that you need to talk about today?: No ADLs No documentation this encounter Fall Risk No documentation this encounter SDOH No documentation this encounter Interventions The following were addressed during this visit: - Month 1: Provide COPD Education: Action Plan Disposition Based on imaging technician, the following disposition is advised: No action needed Flo Chester RN September 20, 2024 4:27 PM ELVIRATOUTRAMEYA Observed: 09/20/2024 12:00 AM Status: COMPLETED Source: [facility] Patient Outreach ([facility]) STEVIE ANGELES ([id number]) 1950 M DEF Date Time Provider Department 09/20/24 FLO CHESTER During your visit today, we recorded the following information about you: Flo Chester RN 09/20/2024 4:29 PM Signed CDM Care Path Telephonic Outreach Provider Action/FYI Patient identified by Name and Date of . Discussed care with patient. Program Details Chronic Disease Management Status: Enrolled Effective Dates: 09/06/2024 - present Responsible Staff: Flo Chester RN Support and Services: Chronic Obstructive Pulmonary Disease (COPD), High Utilizer Program Goals Targets Target Due Completed Completed By Outcome Annual Medicare Wellness visit addressed 12/09/2024 -- -- -- Annual Pulmonology visit addressed 12/09/2024 -- -- -- Comprehensive COPD education provided 12/09/2024 -- -- -- Patient-stated goal addressed (add comment) 12/09/2024 -- -- -- Biannual PCP visit addressed 12/09/2024 09/13/2024 Flo Chester RN Complete/Scheduled General education provided (managing stress, where to go/how to contact, etc.) 10/07/2024 09/06/2024 Flo Chester RN Complete Intake assessments completed: ADLs, Fall Risk, SDOH 10/07/2024 09/06/2024 Flo Chester RN Complete Assessments CDM Assessment Medications: Do you have any questions about taking your medications or which medications you should be taking?: No Do you need any medication refills at this time, including any of the medication you might take only when needed?: No Social: It can be normal to feel anxious or down during a time like this. Would you like to talk to a mental health professional about how you have been feeling?: No Symptoms: Are you experiencing any new or worsening symptoms that you need to talk about today?: No ADLs No documentation this encounter Fall Risk No documentation this encounter SDOH No documentation this encounter Interventions The following were addressed during this visit: - Month 1: Provide COPD Education: Action Plan Disposition Based on imaging technician, the following disposition is advised: No action needed Flo Chester RN September 20, 2024 4:27 PM Allergies As of Date: 09/20/2024 (No Known Allergies) Date Reviewed: 09/11/2024 Reviewed by: Griebeler, Melita, MA - Fully Assessed Prescriptions as of 09/20/2024 - lisinopril-hydroCHLOROthiazide (ZESTORETIC) 20-12.5 mg per tablet Take 1 tablet by mouth once daily. - atorvastatin (LIPITOR) 20 mg tablet Take 1 tablet by mouth once daily. - fluticasone-salmeterol (WIXELA INHUB) 250-50 mcg/dose inhaler Inhale 1 puff as instructed two times a day. - albuterol HFA (PROVENTIL HFA, VENTOLIN HFA) 90 mcg/actuation inhaler Inhale 2 puffs as instructed every 4 hours as needed. 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] 04/24/2023 Prostate cancer (HCC) [C61] 09/11/2023 Paroxysmal atrial fibrillation (HCC) [I48.0] 09/11/2023 Cancer of lower lobe of right lung (HCC) [C34.3*11/15/2023 Postoperative pain [G89.18] 11/16/2023 Stage 1 mild COPD by GOLD classification ([facility]) *11/17/2023 Abscess of lower lobe of right lung without pne*11/17/2023 Pleural effusion, left [J90] 11/17/2023 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 Author Type: Registered Nurse Type: Progress Notes Filed: 09/13/2024 16:32 Note Text: CDM Care Path Telephonic Outreach Provider Action/FYI Patient identified by Name and Date of . Discussed care with patient. Program Details Chronic Disease Management Status: Enrolled Effective Dates: 09/06/2024 - present Responsible Staff: Flo Chester RN Support and Services: Chronic Obstructive Pulmonary Disease (COPD), High Utilizer Program Goals Targets Target Due Completed Completed By Outcome Annual Medicare Wellness visit addressed 12/09/2024 -- -- -- Annual Pulmonology visit addressed 12/09/2024 -- -- -- Biannual PCP visit addressed 12/09/2024 -- -- -- Comprehensive COPD education provided 12/09/2024 -- -- -- Patient-stated goal addressed (add comment) 12/09/2024 -- -- -- General education provided (managing stress, where to go/how to contact, etc.) 10/07/2024 09/06/2024 Flo Chester RN Complete Intake assessments completed: ADLs, Fall Risk, SDOH 10/07/2024 09/06/2024 Flo Chester RN Complete Assessments CDM Assessment Medications: Do you have any questions about taking your medications or which medications you should be taking?: No Do you need any medication refills at this time, including any of the medication you might take only when needed?: No Social: It can be normal to feel anxious or down during a time like this. Would you like to talk to a mental health professional about how you have been feeling?: No Symptoms: Are you experiencing any new or worsening symptoms that you need to talk about today?: No ADLs No documentation this encounter Fall Risk No documentation this encounter SDOH No documentation this encounter Interventions The following were addressed during this visit: - Schedule Annual COPD Pulmonology Appointment - Schedule Biannual PCP Appointment - Month 1: Provide General Education: Managing Stress AND Anxiety - Month 1: Provide General Education: Where to Go for Care Disposition Based on imaging technician, the following disposition is advised: No action needed Flo Chester RN September 13, 2024 4:28 PM BEATRIS Observed: 09/13/2024 12:00 AM Status: COMPLETED Source: [facility] Patient Outreach ([facility]) STEVIE ANGELES ([id number]) 1950 M DEF Date Time Provider Department 09/13/24 FLO CHESTERJade During your visit today, we recorded the following information about you: Flo Chester RN 09/13/2024 4:32 PM Signed CDM Care Path Telephonic Outreach Provider Action/FYI Patient identified by Name and Date of . Discussed care with patient. Program Details Chronic Disease Management Status: Enrolled Effective Dates: 09/06/2024 - present Responsible Staff: Flo Chester RN Support and Services: Chronic Obstructive Pulmonary Disease (COPD), High Utilizer Program Goals Targets Target Due Completed Completed By Outcome Annual Medicare Wellness visit addressed 12/09/2024 -- -- -- Annual Pulmonology visit addressed 12/09/2024 -- -- -- Biannual PCP visit addressed 12/09/2024 -- -- -- Comprehensive COPD education provided 12/09/2024 -- -- -- Patient-stated goal addressed (add comment) 12/09/2024 -- -- -- General education provided (managing stress, where to go/how to contact, etc.) 10/07/2024 09/06/2024 Flo Chester RN Complete Intake assessments completed: ADLs, Fall Risk, SDOH 10/07/2024 09/06/2024 Flo Chester RN Complete Assessments CDM Assessment Medications: Do you have any questions about taking your medications or which medications you should be taking?: No Do you need any medication refills at this time, including any of the medication you might take only when needed?: No Social: It can be normal to feel anxious or down during a time like this. Would you like to talk to a mental health professional about how you have been feeling?: No Symptoms: Are you experiencing any new or worsening symptoms that you need to talk about today?: No ADLs No documentation this encounter Fall Risk No documentation this encounter SDOH No documentation this encounter Interventions The following were addressed during this visit: - Schedule Annual COPD Pulmonology Appointment - Schedule Biannual PCP Appointment - Month 1: Provide General Education: Managing Stress AND Anxiety - Month 1: Provide General Education: Where to Go for Care Disposition Based on imaging technician, the following disposition is advised: No action needed Flo Chester RN September 13, 2024 4:28 PM Allergies As of Date: 09/13/2024 (No Known Allergies) Date Reviewed: 09/11/2024 Reviewed by: Melita Cerrato MA - Fully Assessed Prescriptions as of 09/13/2024 - lisinopril-hydroCHLOROthiazide (ZESTORETIC) 20-12.5 mg per tablet Take 1 tablet by mouth once daily. - atorvastatin (LIPITOR) 20 mg tablet Take 1 tablet by mouth once daily. - fluticasone-salmeterol (WIXELA INHUB) 250-50 mcg/dose inhaler Inhale 1 puff as instructed two times a day. - albuterol HFA (PROVENTIL HFA, VENTOLIN HFA) 90 mcg/actuation inhaler Inhale 2 puffs as instructed every 4 hours as needed. 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] 04/24/2023 Prostate cancer (HCC) [C61] 09/11/2023 Paroxysmal atrial fibrillation (HCC) [I48.0] 09/11/2023 Cancer of lower lobe of right lung (HCC) [C34.3*11/15/2023 Postoperative pain [G89.18] 11/16/2023 Stage 1 mild COPD by GOLD classification (HCC) *11/17/2023 Abscess of lower lobe of right lung without pne*11/17/2023 Pleural effusion, left [J90] 11/17/2023 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 Author Type: Physician Type: Progress Notes Filed: 09/11/2024 16:14 Note Text: (Elements copied from my note dated December 19, 2023, have been reviewed and updated where appropriate, and all reflect current assessment and medical decision making during today's encounter, 09/11/2024) HISTORY OF PRESENT ILLNESS: Stevie Angeles is a 74 year old male Cancer Staging No matching staging information was found for the patient. 05/17/23 CTA chest: Nodular opacification in the right lower lobe with confluent appearance near the hilum 06/19/23 PET/CT: FDG avid right upper lobe lung nodule and medial right lower lobe solid lesion with groundglass extension, concerning for neoplastic process. Mildly prominent mediastinal lymph nodes with mild uptake likely reactive. 06/20/23: Bronchoscopy non-diagnostic of malignancy 08/28/23 CT chest: Further interval enlargement of suspicious masslike opacity in the R lower lobe and mild enlargement of suspicious spiculated and cavitary nodule in the RIGHT upper lobe. 09/19/23 Bronchoscopy confirming SCC of RLL, negative 11 Rl and 11RS nodes *PD-L1 0% 11/15/23 R lower lobectomy with Dr. 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 *5 cm AAA under surveillance with Tea Eckert TREATMENT HISTORY: SCANS: 12/09/23: Unchanged size of RUL nodule compared to scans from 08/28/23 05/08/24 CT chest: 1. Postoperative changes of right lower lobectomy. Large new cystic space in the resection bed with areas of septations and smaller surrounding cystic spaces. Primary differential for this is a multiloculated pneumothorax or less likely a large bulla. 2. Stable right upper lobe spiculated nodule with cavitations. SUBJECTIVE: Feels near his baseline. Some pain at site of VATS ASSESSMENT/PLAN: #NSCLC, squamous histology, synchronous vs T4 (RUL satellite lesion) Patient initally presented with what appeared to be a 8.3cm RLL lesion and 2 cm RUL lesion, unclear if iplsateral lung metastatic disease or synchronus disease. After conferring with Dr. Escobar, it was unclear if there would be any benefit in providing neoadjuvant chemoIO given PD-L1 of 0% vs adjuvant therapy. Patient went directly to surgery where it was found that the large RLL lesion was primarily abscess with a pT1c lesion and no positive lymph nodes. As such, adjuvant chemotherapy was not indicated based off the resected disease. As the patient was not a candidate for a pneumonectomy, patient underwent SBRT to the RUL lesion. Thus far, there is no evidence of recurrent disease. -he is following with thoracic and radiation oncology -CT Chest already schedule for late sept Misc: Repeat PSA with next lab draw RTC after CT chest Written and verbal health teaching given to patient, patient verbalizes understanding and agrees with treatment plan. PAST MEDICAL HISTORY Diagnosis Date Abdominal aortic aneurysm without rupture Elevated PSA Hearing loss HTN (hypertension) Lumbosacral neuritis Malignant neoplasm of prostate (HCC) Other and unspecified hyperlipidemia Prostate cancer (HCC) 2020 xrt at [facility] [place] Smoker former quit 2021 Spinal stenosis of lumbar region with neurogenic claudication PAST SURGICAL HISTORY Procedure Laterality Date COLONOSCOPY 05/28/2008 HERNIA REPAIR HX age 20 PROSTATE BIOPSY HX 2020 REMOVAL OF LUNG,LOBECTOMY Right 11/15/2023 Robotic-assisted right lower lobectomy with right lower lobe bronchoplasty closure of airway and mediastinal and hilar lymph node dissection, intercostal and phrenic nerve block FAMILY HISTORY Problem Relation Age of Onset other (high blood pressure [Other]) Mother Diabetes Mother Hearing Loss Mother Prostate Cancer Other Social History Tobacco Use Smoking status: Former Current packs/day: 0.00 Average packs/day: 1 pack/day for 40.0 years (40.0 ttl pk-yrs) Types: Cigarettes Start date: 07/1981 Quit date: 07/2021 Years since quittin.1 Passive exposure: Past Smokeless tobacco: Never Substance Use Topics Alcohol use: Not Currently Alcohol/week: 6.0 standard drinks of alcohol Types: 6 Glasses of wine per week Drug use: No ALLERGIES: ALLERGIES No Known Allergies CURRENT OUTPATIENT MEDICATIONS: lisinopril-hydroCHLOROthiazide (ZESTORETIC) 20-12.5 mg per tablet Take 1 tablet by mouth once daily. atorvastatin (LIPITOR) 20 mg tablet Take 1 tablet by mouth once daily. fluticasone-salmeterol (WIXELA INHUB) 250-50 mcg/dose inhaler Inhale 1 puff as instructed two times a day. albuterol HFA (PROVENTIL HFA, VENTOLIN HFA) 90 mcg/actuation inhaler Inhale 2 puffs as instructed every 4 hours as needed. gabapentin (NEURONTIN) 300 mg capsule TAKE 2 CAPSULES BY MOUTH 3 TIMES A DAY REVIEW OF SYSTEMS: Review of systems unremarkable except as noted in the HPI. PHYSICAL EXAMINATION: VITAL SIGNS: There were no vitals taken for this visit. Physical Exam Constitutional: General: He is not in acute distress. Appearance: Normal appearance. HENT: Head: Normocephalic and atraumatic. Eyes: Extraocular Movements: Extraocular movements intact. Pulmonary: Effort: Pulmonary effort is normal. No respiratory distress. Skin: Coloration: Skin is not jaundiced. Neurological: General: No focal deficit present. Mental Status: He is alert. Mental status is at baseline. LABS: Latest Ref Rng AND Units 06/23/2024 CBC WBC 3.70 - 11.00 k/uL 5.93 RBC 4.20 - 6.00 m/uL 4.18 Hemoglobin 13.0 - 17.0 g/dL 13.6 Hematocrit 39.0 - 51.0 % 40.6 MCV 80.0 - 100.0 fL 97.1 MCH 26.0 - 34.0 pg 32.5 MCHC 30.5 - 36.0 g/dL 33.5 RDW-CV 11.5 - 15.0 % 14.4 Platelet Count 150 - 400 k/uL 224 MPV 9.0 - 12.7 fL 9.4 Latest Ref Rng AND Units 06/23/2024 CMP Sodium 136 - 144 mmol/L 142 Potassium 3.7 - 5.1 mmol/L 3.7 Chloride 98 - 107 mmol/L 105 CO2 22 - 30 mmol/L 25 Glucose 74 - 99 mg/dL 97 BUN 9 - 24 mg/dL 10 Creatinine 0.73 - 1.22 mg/dL 0.59 EGFR >=60 mL/min/1.73m? 104 Calcium 8.5 - 10.2 mg/dL 9.5 No results found for: TSH Kevin Cantu MD CNOVSP Observed: 09/11/2024 11:10 AM Status: COMPLETED Source: [facility] Visit (SP) Office ([facility]) STEVIE ANGELES ([id number]) 1950 M DEF Date Time Provider Department 09/11/24 11:10 AM KEVIN CANTU During your visit today, we recorded the following information about you: Temperature Pulse Respiration Blood pressure 98.3 degrees 79/minute 18/minute 135/76 Weight 79.2 kg Kevin Cantu MD 09/11/2024 4:14 PM Signed (Elements copied from my note dated December 19, 2023, have been reviewed and updated where appropriate, and all reflect current assessment and medical decision making during today's encounter, 09/11/2024) HISTORY OF PRESENT ILLNESS: Stevie Angeles is a 74 year old male Cancer Staging No matching staging information was found for the patient. 05/17/23 CTA chest: Nodular opacification in the right lower lobe with confluent appearance near the hilum 06/19/23 PET/CT: FDG avid right upper lobe lung nodule and medial right lower lobe solid lesion with groundglass extension, concerning for neoplastic process. Mildly prominent mediastinal lymph nodes with mild uptake likely reactive. 06/20/23: Bronchoscopy non-diagnostic of malignancy 08/28/23 CT chest: Further interval enlargement of suspicious masslike opacity in the R lower lobe and mild enlargement of suspicious spiculated and cavitary nodule in the RIGHT upper lobe. 09/19/23 Bronchoscopy confirming SCC of RLL, negative 11 Rl and 11RS nodes *PD-L1 0% 11/15/23 R lower lobectomy with Dr. 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 *5 cm AAA under surveillance with Tea Eckert TREATMENT HISTORY: SCANS: 12/09/23: Unchanged size of RUL nodule compared to scans from 08/28/23 05/08/24 CT chest: 1. Postoperative changes of right lower lobectomy. Large new cystic space in the resection bed with areas of septations and smaller surrounding cystic spaces. Primary differential for this is a multiloculated pneumothorax or less likely a large bulla. 2. Stable right upper lobe spiculated nodule with cavitations. SUBJECTIVE: Feels near his baseline. Some pain at site of VATS ASSESSMENT/PLAN: #NSCLC, squamous histology, synchronous vs T4 (RUL satellite lesion) Patient initally presented with what appeared to be a 8.3cm RLL lesion and 2 cm RUL lesion, unclear if iplsateral lung metastatic disease or synchronus disease. After conferring with Dr. Escobar, it was unclear if there would be any benefit in providing neoadjuvant chemoIO given PD-L1 of 0% vs adjuvant therapy. Patient went directly to surgery where it was found that the large RLL lesion was primarily abscess with a pT1c lesion and no positive lymph nodes. As such, adjuvant chemotherapy was not indicated based off the resected disease. As the patient was not a candidate for a pneumonectomy, patient underwent SBRT to the RUL lesion. Thus far, there is no evidence of recurrent disease. -he is following with thoracic and radiation oncology -CT Chest already schedule for late sept Misc: Repeat PSA with next lab draw RTC after CT chest Written and verbal health teaching given to patient, patient verbalizes understanding and agrees with treatment plan. PAST MEDICAL HISTORY Diagnosis Date Abdominal aortic aneurysm without rupture Elevated PSA Hearing loss HTN (hypertension) Lumbosacral neuritis Malignant neoplasm of prostate (HCC) Other and unspecified hyperlipidemia Prostate cancer (HCC) 2020 xrt at [facility] [place] Smoker former quit 2021 Spinal stenosis of lumbar region with neurogenic claudication PAST SURGICAL HISTORY Procedure Laterality Date COLONOSCOPY 05/28/2008 HERNIA REPAIR HX age 20 PROSTATE BIOPSY HX 2020 REMOVAL OF LUNG,LOBECTOMY Right 11/15/2023 Robotic-assisted right lower lobectomy with right lower lobe bronchoplasty closure of airway and mediastinal and hilar lymph node dissection, intercostal and phrenic nerve block FAMILY HISTORY Problem Relation Age of Onset other (high blood pressure [Other]) Mother Diabetes Mother Hearing Loss Mother Prostate Cancer Other Social History Tobacco Use Smoking status: Former Current packs/day: 0.00 Average packs/day: 1 pack/day for 40.0 years (40.0 ttl pk-yrs) Types: Cigarettes Start date: 07/1981 Quit date: 07/2021 Years since quittin.1 Passive exposure: Past Smokeless tobacco: Never Substance Use Topics Alcohol use: Not Currently Alcohol/week: 6.0 standard drinks of alcohol Types: 6 Glasses of wine per week Drug use: No ALLERGIES: ALLERGIES No Known Allergies CURRENT OUTPATIENT MEDICATIONS: lisinopril-hydroCHLOROthiazide (ZESTORETIC) 20-12.5 mg per tablet Take 1 tablet by mouth once daily. atorvastatin (LIPITOR) 20 mg tablet Take 1 tablet by mouth once daily. fluticasone-salmeterol (WIXELA INHUB) 250-50 mcg/dose inhaler Inhale 1 puff as instructed two times a day. albuterol HFA (PROVENTIL HFA, VENTOLIN HFA) 90 mcg/actuation inhaler Inhale 2 puffs as instructed every 4 hours as needed. gabapentin (NEURONTIN) 300 mg capsule TAKE 2 CAPSULES BY MOUTH 3 TIMES A DAY REVIEW OF SYSTEMS: Review of systems unremarkable except as noted in the HPI. PHYSICAL EXAMINATION: VITAL SIGNS: There were no vitals taken for this visit. Physical Exam Constitutional: General: He is not in acute distress. Appearance: Normal appearance. HENT: Head: Normocephalic and atraumatic. Eyes: Extraocular Movements: Extraocular movements intact. Pulmonary: Effort: Pulmonary effort is normal. No respiratory distress. Skin: Coloration: Skin is not jaundiced. Neurological: General: No focal deficit present. Mental Status: He is alert. Mental status is at baseline. LABS: Latest Ref Rng AND Units 06/23/2024 CBC WBC 3.70 - 11.00 k/uL 5.93 RBC 4.20 - 6.00 m/uL 4.18 Hemoglobin 13.0 - 17.0 g/dL 13.6 Hematocrit 39.0 - 51.0 % 40.6 MCV 80.0 - 100.0 fL 97.1 MCH 26.0 - 34.0 pg 32.5 MCHC 30.5 - 36.0 g/dL 33.5 RDW-CV 11.5 - 15.0 % 14.4 Platelet Count 150 - 400 k/uL 224 MPV 9.0 - 12.7 fL 9.4 Latest Ref Rng AND Units 06/23/2024 CMP Sodium 136 - 144 mmol/L 142 Potassium 3.7 - 5.1 mmol/L 3.7 Chloride 98 - 107 mmol/L 105 CO2 22 - 30 mmol/L 25 Glucose 74 - 99 mg/dL 97 BUN 9 - 24 mg/dL 10 Creatinine 0.73 - 1.22 mg/dL 0.59 EGFR >=60 mL/min/1.73m? 104 Calcium 8.5 - 10.2 mg/dL 9.5 No results found for: TSH Kevin Cantu MD Referring Provider: THAD BELTRAN [[id number]] Allergies As of Date: 09/11/2024 (No Known Allergies) Date Reviewed: 09/11/2024 Reviewed by: Melita Cerrato MA - Fully Assessed Reason for Visit: Follow Up [171] Lung Cancer [562] Primary Visit Diagnosis:Malignant neoplasm of unspecified part of unspecified bronchus or lung (HCC) [C34.90] Other Visit Diagnosis:Squamous cell carcinoma of lung, unspecified laterality (HCC) [C34.90] Order(s):COMPLETE BLOOD COUNT AND DIFFERENTIAL [SQCBCDIF] Order #: [id number] FUTURE COMPREHENSIVE METABOLIC PANEL [SQCMP] Order #: [id number] FUTURE PROSTATE-SPECIFIC ANTIGEN DIAGNOSTIC [SQPSA] Order #: [id number] FUTURE Disposition: Return in about 3 months (around 12/02/2024) for follow-up with scans beforehand. Follow-up and Disposition History for Encounter Date Provider Department Center 09/11/2024 [id number] [facility] Prescriptions as of 09/11/2024 - lisinopril-hydroCHLOROthiazide (ZESTORETIC) 20-12.5 mg per tablet Take 1 tablet by mouth once daily. - atorvastatin (LIPITOR) 20 mg tablet Take 1 tablet by mouth once daily. - fluticasone-salmeterol (WIXELA INHUB) 250-50 mcg/dose inhaler Inhale 1 puff as instructed two times a day. - albuterol HFA (PROVENTIL HFA, VENTOLIN HFA) 90 mcg/actuation inhaler Inhale 2 puffs as instructed every 4 hours as needed. 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] 04/24/2023 Prostate cancer (HCC) [C61] 09/11/2023 Paroxysmal atrial fibrillation (HCC) [I48.0] 09/11/2023 Cancer of lower lobe of right lung (HCC) [C34.3*11/15/2023 Postoperative pain [G89.18] 11/16/2023 Stage 1 mild COPD by GOLD classification (HCC) *11/17/2023 Abscess of lower lobe of right lung without pne*11/17/2023 Pleural effusion, left [J90] 11/17/2023 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 Author Type: Blood Bank Worker Type: Progress Notes Filed: 09/10/2024 12:21 Note Text: Patient is identified through a medication adherence outreach initiative based on pharmacy claims data from: [employer] Medication Adherence Category: Hypertension First Review Attribution Status: Correct attribution Medication(s) Lisinopril/Hctz 20/12.5 mg 1 tab daily Due 07/31/24 last filled 05/03/24 for 90 ds Medication Status per portal/IRI Reconcile Dispense: Filled late - Greater than 7 days after next fill date Date Filled (MM/DD): 09/03 Day Supply: 90 Medication Status per Profile Review: No issues per profile review Patient/provider appropriate for outreach? No Reason patient/provider not appropriate for outreach:Patient filled on time / no adherence concerns to be addressed Veronika Skinner CPhT [facility] Team CNPTOUTREACH Observed: 09/10/2024 12:00 AM Status: COMPLETED Source: [facility] Patient Outreach ([facility]) STEVIE ANGELES ([id number]) 1950 M DEF Date Time Provider Department 09/10/24 PR[facility]UL SU During your visit today, we recorded the following information about you: Veronika Skinner CPhT 09/10/2024 12:21 PM Signed Patient is identified through a medication adherence outreach initiative based on pharmacy claims data from: [employer] Medication Adherence Category: Hypertension First Review Attribution Status: Correct attribution Medication(s) Lisinopril/Hctz 20/12.5 mg 1 tab daily Due 07/31/24 last filled 05/03/24 for 90 ds Medication Status per portal/Epic Reconcile Dispense: Filled late - Greater than 7 days after next fill date Date Filled (MM/DD): 09/03 Day Supply: 90 Medication Status per Profile Review: No issues per profile review Patient/provider appropriate for outreach? No Reason patient/provider not appropriate for outreach:Patient filled on time / no adherence concerns to be addressed Veronika Skinner CPhT [facility] Team Allergies As of Date: 09/10/2024 (No Known Allergies) Date Reviewed: 08/23/2024 Reviewed by: Eze Perez, GABI - Fully Assessed Reason for Visit: Allied Health Visit [5] Cmt: Medication Adherence Outreach Prescriptions as of 09/10/2024 - lisinopril-hydroCHLOROthiazide (ZESTORETIC) 20-12.5 mg per tablet Take 1 tablet by mouth once daily. - atorvastatin (LIPITOR) 20 mg tablet Take 1 tablet by mouth once daily. - fluticasone-salmeterol (WIXELA INHUB) 250-50 mcg/dose inhaler Inhale 1 puff as instructed two times a day. - albuterol HFA (PROVENTIL HFA, VENTOLIN HFA) 90 mcg/actuation inhaler Inhale 2 puffs as instructed every 4 hours as needed. 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] 04/24/2023 Prostate cancer (HCC) [C61] 09/11/2023 Paroxysmal atrial fibrillation (HCC) [I48.0] 09/11/2023 Cancer of lower lobe of right lung (HCC) [C34.3*11/15/2023 Postoperative pain [G89.18] 11/16/2023 Stage 1 mild COPD by GOLD classification (HCC) *11/17/2023 Abscess of lower lobe of right lung without pne*11/17/2023 Pleural effusion, left [J90] 11/17/2023 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 Author Type: Registered Nurse Type: Progress Notes Filed: 09/06/2024 12:16 Note Text: CDM ENROLLMENT Provider Action / FYI: Patient identified by name and date of . Discussed care with patient. Program Details Chronic Disease Management Status: Enrolled Effective Dates: 09/06/2024 - present Responsible Staff: Flo Chester RN Support and Services: Chronic Obstructive Pulmonary Disease (COPD), High Utilizer Assessments CDM Assessment Medications: Do you have any questions about taking your medications or which medications you should be taking?: No Do you need any medication refills at this time, including any of the medication you might take only when needed?: No Social: It can be normal to feel anxious or down during a time like this. Would you like to talk to a mental health professional about how you have been feeling?: No Symptoms: Are you experiencing any new or worsening symptoms that you need to talk about today?: No ADLs Patients can perform the following activities without help: Bathing: Yes Dressing: Yes Eating: Yes Transferring: Yes Walking : Yes Instrumental activities of daily living Grocery Shopping: Yes Driving / Use Public Transportation: Yes Using Telephone: Yes Meal Preparation: Yes Housework: Yes Home Repair: Yes Doing laundry: Yes Taking Medications: Yes Handling finances: Yes Fall Risk One or more falls in the last year:: No Any near falls in the last year?: No Advised to use a cane or walker to get around safely:: No Feels unsteady when walking:: No Steadies self on furniture while walking at home:: No Worried about falling:: No Needs to push with hands when rising from a chair:: No Has trouble stepping up onto a curb:: No Often has to wilde to the toilet:: No Has lost some feeling in feet:: No Takes medicine that makes him/her feel lightheaded or more tired than usual:: No Takes medicine to sleep or improve mood:: No Fall risk factors:: Misc. SDOH Financial Resource Strain How hard is it for you to pay for the very basics like food, housing, medical care, and heating?: Not hard at all Housing Stability In the last 12 months, was there a time when you were not able to pay the mortgage or rent on time?: No At any time in the past 12 months, were you homeless or living in a half-way (including now)?: No Transportation Needs In the past 12 months, has lack of transportation kept you from medical appointments or from getting medications?: No In the past 12 months, has lack of transportation kept you from meetings, work, or from getting things needed for daily living?: No Food Insecurity Within the past 12 months, you worried that your food would run out before you got the money to buy more.: Never true Within the past 12 months, the food you bought just didn't last and you didn't have money to get more.: Never true Utilities In the past 12 months has the electric, gas, oil, or water company threatened to shut off services in your home?: No Tobacco Use Patient reports that he quit smoking about 3 years ago. His smoking use included cigarettes. He started smoking about 43 years ago. He has a 40 pack-year smoking history. He has been exposed to tobacco smoke. He has never used smokeless tobacco. Interventions The following were addressed during this visit: - Initial enrollment outreach Disposition Based on imaging technician, the following disposition is advised: No action needed Flo Chester RN September 06, 2024 12:06 PM BEATRIS Observed: 09/06/2024 12:00 AM Status: COMPLETED Source: [facility] Patient Outreach ([facility]) JACQUI ANGELESYDE ([id number]) 1950 M DEF Date Time Provider Department 09/06/24 [place] [facility] [facility] [place] your visit today, we recorded the following information about you: Flo Chester RN 09/06/2024 12:16 PM Signed CDM ENROLLMENT Provider Action / FYI: Patient identified by name and date of . Discussed care with patient. Program Details Chronic Disease Management Status: Enrolled Effective Dates: 09/06/2024 - present Responsible Staff: Flo Chester RN Support and Services: Chronic Obstructive Pulmonary Disease (COPD), High Utilizer Assessments CDM Assessment Medications: Do you have any questions about taking your medications or which medications you should be taking?: No Do you need any medication refills at this time, including any of the medication you might take only when needed?: No Social: It can be normal to feel anxious or down during a time like this. Would you like to talk to a mental health professional about how you have been feeling?: No Symptoms: Are you experiencing any new or worsening symptoms that you need to talk about today?: No ADLs Patients can perform the following activities without help: Bathing: Yes Dressing: Yes Eating: Yes Transferring: Yes Walking : Yes Instrumental activities of daily living Grocery Shopping: Yes Driving / Use Public Transportation: Yes Using Telephone: Yes Meal Preparation: Yes Housework: Yes Home Repair: Yes Doing laundry: Yes Taking Medications: Yes Handling finances: Yes Fall Risk One or more falls in the last year:: No Any near falls in the last year?: No Advised to use a cane or walker to get around safely:: No Feels unsteady when walking:: No Steadies self on furniture while walking at home:: No Worried about falling:: No Needs to push with hands when rising from a chair:: No Has trouble stepping up onto a curb:: No Often has to wilde to the toilet:: No Has lost some feeling in feet:: No Takes medicine that makes him/her feel lightheaded or more tired than usual:: No Takes medicine to sleep or improve mood:: No Fall risk factors:: Misc. SDOH Financial Resource Strain How hard is it for you to pay for the very basics like food, housing, medical care, and heating?: Not hard at all Housing Stability In the last 12 months, was there a time when you were not able to pay the mortgage or rent on time?: No At any time in the past 12 months, were you homeless or living in a half-way (including now)?: No Transportation Needs In the past 12 months, has lack of transportation kept you from medical appointments or from getting medications?: No In the past 12 months, has lack of transportation kept you from meetings, work, or from getting things needed for daily living?: No Food Insecurity Within the past 12 months, you worried that your food would run out before you got the money to buy more.: Never true Within the past 12 months, the food you bought just didn't last and you didn't have money to get more.: Never true Utilities In the past 12 months has the [employer], gas, oil, or water [employer] threatened to shut off services in your home?: No Tobacco Use Patient reports that he quit smoking about 3 years ago. His smoking use included cigarettes. He started smoking about 43 years ago. He has a 40 pack-year smoking history. He has been exposed to tobacco smoke. He has never used smokeless tobacco. Interventions The following were addressed during this visit: - Initial enrollment outreach Disposition Based on imaging technician, the following disposition is advised: No action needed Flo Chester RN September 06, 2024 12:06 PM Allergies As of Date: 09/06/2024 (No Known Allergies) Date Reviewed: 08/23/2024 Reviewed by: Eze Perez RN - Fully Assessed Prescriptions as of 09/06/2024 - lisinopril-hydroCHLOROthiazide (ZESTORETIC) 20-12.5 mg per tablet Take 1 tablet by mouth once daily. - atorvastatin (LIPITOR) 20 mg tablet Take 1 tablet by mouth once daily. - fluticasone-salmeterol (WIXELA INHUB) 250-50 mcg/dose inhaler Inhale 1 puff as instructed two times a day. - albuterol HFA (PROVENTIL HFA, VENTOLIN HFA) 90 mcg/actuation inhaler Inhale 2 puffs as instructed every 4 hours as needed. 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] 04/24/2023 Prostate cancer (HCC) [C61] 09/11/2023 Paroxysmal atrial fibrillation (HCC) [I48.0] 09/11/2023 Cancer of lower lobe of right lung (HCC) [C34.3*11/15/2023 Postoperative pain [G89.18] 11/16/2023 Stage 1 mild COPD by GOLD classification (HCC) *11/17/2023 Abscess of lower lobe of right lung without pne*11/17/2023 Pleural effusion, left [J90] 11/17/2023 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 Author Type: Registered Nurse Type: Progress Notes Filed: 08/23/2024 15:50 Note Text: Radiation Therapy - Nursing Note (Follow-up) PATIENT NAME: Stevie Angeles PATIENT August 23, 2024 [facility] FACILITY/LOCATION: [place] Reason for visit: Follow up. Subjective Data Additional Data Do you want to see a Administrative Aide? No Difficulty performing or completing routine daily living activities: No Nursing Assessment Fatigue: increased fatigue over baseline but not altering normal activities Appetite: good Weight Gain/Loss: No Last 6 Encounter Wt Readings: Date: Wt: 08/23/2024 78.2 kg (172 lb 6.4 oz) 2024 77.2 kg (170 lb 3.2 oz) 07/01/2024 77.1 kg (170 lb) 06/13/2024 80.2 kg (176 lb 12.9 oz) 06/07/2024 76.5 kg (168 lb 9.3 oz) 05/25/2024 79.3 kg (174 lb 13.2 oz) Bowel Function: normal bowel movements Bone Pain: none Focused Assessment CHEST: Shortness of Breath on exertion dry cough SIGNED by: Eze Perez RN PROGRESS Observed: 08/23/2024 11:00 AM Status: COMPLETED Source: [facility] HNO ID: [id number] Author: ELIAS GOSS MD Service: ? Author Type: Physician Type: Progress Notes Filed: 08/23/2024 15:50 Note Text: Radiation Oncology - Follow Up Note PATIENT NAME: Stevie Angeles PATIENT DIAGNOSIS: 74 year old man with: 1. Enlarging/hypermetabolic/cavitary RUL nodule c/w NSCLC, [id number], Stage IA3, s/p SBRT 02/01/24 [3400 cGy/1 fx] 2. 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 Hx of adenocarcinoma of the prostate, s/p ADT/EBRT completed 01/15/21, PSA 0.08 ng/mL Thoracic surgeon: Paula Escobar MD, PhD INTERVAL HISTORY: Mr. Angeles has a history of prostate cancer, diagnosed with biopsy on 09/24/20 (Gl 3+4=7, 8/12 cores+), iPSA 7.52 ng/mL, CT A/P 09/08/20 - no metastasis (4.3 cm infrarenal AAA w/o dissection). He was treated with Lupron (45 mg inj 11/05/20) and EBRT (7000 cGy/28 fx, completed 01/15/21, Dr. Neely). Most recent PSA is 0.08 ng/mL. He was diagnosed with SCCa of the RUL, managed with robotic-assisted right lower lobectomy/RLL bronchoplasty closure, mediastinal/hilar LND on 11/15/23 (Dr. Escobar). Pathology showed a 2.4 cm focus of SCCa, margins-, 0/12 LN; pT1cN0 cM0). He was referred for SBRT to a RUL nodule (2 x 1.4 cm on 12/09/23 post-op CT, cavitary, enlarging compared to 05/17/23 CTA, SUV 10.3 06/19/23 PET/CT; not biopsied). PFTs 07/04/23 showed FEV1 119%, DLCO 93%. SBRT was completed on 02/01/24. He reported having had some fatigue, but no pain. CT chest on 05/08/24 showed post-op changes at the RLL, large, new cystic space in the resection bed with areas of septations and smaller surrounding cystic spaces - ddx multiloculated pneumothorax or less likely bulla, stable RUL spiculated nodule with cavitations (reduced in size on my review). He was hospitalized 05/10/24 - 05/12/24, however chest tube placement was not performed. CT chest on 05/08/24 showed stable right upper lobe spiculated nodule with cavitations (reduced in size on my review using 6-degree co-registration software - red outline is tumor, left panel shows reduction in mass: He underwent right robotic assisted lysis of adhesions, repair of broncho/alveolar fistula w/ pleural flap, and intercostal nerve block on 06/19/24. Recovery complicated by a persistent post op air leak in chest tube. Currently, he is feeling better, energy is variable. Has pain at chest tube and surgical sites. Occasional cough. Uses neurontin for pelvic/LE pain. No weight loss, appetite is ok. ALLERGIES No Known Allergies MEDICATIONS: lisinopril-hydroCHLOROthiazide (ZESTORETIC) 20-12.5 mg per tablet Take 1 tablet by mouth once daily. Patient should start on December 19, 2023. metoprolol tartrate, short acting, (LOPRESSOR) 25 mg tablet Take 1 tablet by mouth two times a day. For prevention of atrial fibrillation after thoracic surgery, stop after 30 days then resume your normal blood pressure medication (Patient not taking: Reported on 12/19/2023) guaiFENesin (MUCINEX) 600 mg 12 hr tablet Take 1 tablet by mouth every 12 hours. (Patient not taking: Reported on 12/19/2023) amLODIPine (NORVASC) 5 mg tablet Take 1 tablet by mouth once daily. Patient should start on December 19, 2023. fluticasone-salmeterol (WIXELA INHUB) 250-50 mcg/dose inhaler Inhale 1 Puff as instructed two times a day. atorvastatin (LIPITOR) 20 mg tablet Take 1 tablet by mouth once daily. gabapentin (NEURONTIN) 300 mg capsule TAKE 2 CAPSULES BY MOUTH 3 TIMES A DAY PHYSICAL EXAM: Deferred - telephone visit ASSESSMENT AND PLAN: 74 year old man with: 1. Enlarging/hypermetabolic/cavitary RUL nodule c/w NSCLC, [id number], Stage IA3, s/p SBRT 02/01/24 [3400 cGy/1 fx] 2. 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 Hx of adenocarcinoma of the prostate, s/p ADT/EBRT completed 01/15/21, PSA 0.08 ng/mL Mr. Angeles is doing well. CT 05/08/24 shows response at RUL nodule treated with SBRT on my review. Re-staging CT is scheduled for 11/21/24 and he is to see Romina Bedolla; I will arrange for follow-up soon after this CT (11/25/24). He will see Dr. Cantu on 09/11/24. I spent 30 minutes in the visit in counseling / coordination of care. Signed by: Elias Goss MD cc: MD Kevin Nicholas MD Sudish Murthy, MD CNOV Observed: 08/23/2024 11:00 AM Status: COMPLETED Source: [facility] Office Visit (RAD[facility]) STEVIE ANGELES ([id number]) 1950 M DEF Date Time Provider Department 08/23/24 11:00 AM ELIAS GOSS During your visit today, we recorded the following information about you: Weight 78.2 kg Elias Goss MD 08/23/2024 3:50 PM Signed Radiation Oncology - Follow Up Note PATIENT NAME: Stevie Angeles PATIENT DIAGNOSIS: 74 year old man with: 1. Enlarging/hypermetabolic/cavitary RUL nodule c/w NSCLC, [id number], Stage IA3, s/p SBRT 02/01/24 [3400 cGy/1 fx] 2. 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 Hx of adenocarcinoma of the prostate, s/p ADT/EBRT completed 01/15/21, PSA 0.08 ng/mL Thoracic surgeon: Paula Escobar MD, PhD INTERVAL HISTORY: Mr. Angeles has a history of prostate cancer, diagnosed with biopsy on 09/24/20 (Gl 3+4=7, 8/12 cores+), iPSA 7.52 ng/mL, CT A/P 09/08/20 - no metastasis (4.3 cm infrarenal AAA w/o dissection). He was treated with Lupron (45 mg inj 11/05/20) and EBRT (7000 cGy/28 fx, completed 01/15/21, Dr. Neely). Most recent PSA is 0.08 ng/mL. He was diagnosed with SCCa of the RUL, managed with robotic-assisted right lower lobectomy/RLL bronchoplasty closure, mediastinal/hilar LND on 11/15/23 (Dr. Escobar). Pathology showed a 2.4 cm focus of SCCa, margins-, 0/12 LN; pT1cN0 cM0). He was referred for SBRT to a RUL nodule (2 x 1.4 cm on 12/09/23 post-op CT, cavitary, enlarging compared to 05/17/23 CTA, SUV 10.3 06/19/23 PET/CT; not biopsied). PFTs 07/04/23 showed FEV1 119%, DLCO 93%. SBRT was completed on 02/01/24. He reported having had some fatigue, but no pain. CT chest on 05/08/24 showed post-op changes at the RLL, large, new cystic space in the resection bed with areas of septations and smaller surrounding cystic spaces - ddx multiloculated pneumothorax or less likely bulla, stable RUL spiculated nodule with cavitations (reduced in size on my review). He was hospitalized 05/10/24 - 05/12/24, however chest tube placement was not performed. CT chest on 05/08/24 showed stable right upper lobe spiculated nodule with cavitations (reduced in size on my review using 6-degree co-registration software - red outline is tumor, left panel shows reduction in mass: He underwent right robotic assisted lysis of adhesions, repair of broncho/alveolar fistula w/ pleural flap, and intercostal nerve block on 06/19/24. Recovery complicated by a persistent post op air leak in chest tube. Currently, he is feeling better, energy is variable. Has pain at chest tube and surgical sites. Occasional cough. Uses neurontin for pelvic/LE pain. No weight loss, appetite is ok. ALLERGIES No Known Allergies MEDICATIONS: lisinopril-hydroCHLOROthiazide (ZESTORETIC) 20-12.5 mg per tablet Take 1 tablet by mouth once daily. Patient should start on December 19, 2023. metoprolol tartrate, short acting, (LOPRESSOR) 25 mg tablet Take 1 tablet by mouth two times a day. For prevention of atrial fibrillation after thoracic surgery, stop after 30 days then resume your normal blood pressure medication (Patient not taking: Reported on 12/19/2023) guaiFENesin (MUCINEX) 600 mg 12 hr tablet Take 1 tablet by mouth every 12 hours. (Patient not taking: Reported on 12/19/2023) amLODIPine (NORVASC) 5 mg tablet Take 1 tablet by mouth once daily. Patient should start on December 19, 2023. fluticasone-salmeterol (WIXELA INHUB) 250-50 mcg/dose inhaler Inhale 1 Puff as instructed two times a day. atorvastatin (LIPITOR) 20 mg tablet Take 1 tablet by mouth once daily. gabapentin (NEURONTIN) 300 mg capsule TAKE 2 CAPSULES BY MOUTH 3 TIMES A DAY PHYSICAL EXAM: Deferred - telephone visit ASSESSMENT AND PLAN: 74 year old man with: 1. Enlarging/hypermetabolic/cavitary RUL nodule c/w NSCLC, [id number], Stage IA3, s/p SBRT 02/01/24 [3400 cGy/1 fx] 2. 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 Hx of adenocarcinoma of the prostate, s/p ADT/EBRT completed 01/15/21, PSA 0.08 ng/mL Mr. Angeles is doing well. CT 05/08/24 shows response at RUL nodule treated with SBRT on my review. Re-staging CT is scheduled for 11/21/24 and he is to see Romina Bedolla; I will arrange for follow-up soon after this CT (11/25/24). He will see Dr. Cantu on 09/11/24. I spent 30 minutes in the visit in counseling / coordination of care. Signed by: Elias Goss MD cc: MD Kevin Nicholas MD Sudish Murthy, MD Grachanin, Judith, GABI 08/23/2024 3:50 PM Signed Radiation Therapy - Nursing Note (Follow-up) PATIENT NAME: Stevie Angeles PATIENT August 23, 2024 [facility] FACILITY/LOCATION: [place] Reason for visit: Follow up. Subjective Data Additional Data Do you want to see a Administrative Aide? No Difficulty performing or completing routine daily living activities: No Nursing Assessment Fatigue: increased fatigue over baseline but not altering normal activities Appetite: good Weight Gain/Loss: No Last 6 Encounter Wt Readings: Date: Wt: 08/23/2024 78.2 kg (172 lb 6.4 oz) 2024 77.2 kg (170 lb 3.2 oz) 07/01/2024 77.1 kg (170 lb) 06/13/2024 80.2 kg (176 lb 12.9 oz) 06/07/2024 76.5 kg (168 lb 9.3 oz) 05/25/2024 79.3 kg (174 lb 13.2 oz) Bowel Function: normal bowel movements Bone Pain: none Focused Assessment CHEST: Shortness of Breath on exertion dry cough SIGNED by: Eze Perez RN Allergies As of Date: 08/23/2024 (No Known Allergies) Date Reviewed: 08/23/2024 Reviewed by: Eze Perez RN - Fully Assessed Primary Visit Diagnosis:Malignant neoplasm of upper lobe of right lung (HCC) [C34.11] Prescriptions as of 08/23/2024 - fluticasone-salmeterol (WIXELA INHUB) 250-50 mcg/dose inhaler Inhale 1 puff as instructed two times a day. - albuterol HFA (PROVENTIL HFA, VENTOLIN HFA) 90 mcg/actuation inhaler Inhale 2 puffs as instructed every 4 hours as needed. - gabapentin (NEURONTIN) 300 mg capsule TAKE 2 CAPSULES BY MOUTH 3 TIMES A DAY - lisinopril-hydroCHLOROthiazide (ZESTORETIC) 20-12.5 mg per tablet Take 1 tablet by mouth once daily. Patient should start on December 19, 2023. - atorvastatin (LIPITOR) 20 mg tablet Take 1 tablet by mouth once daily. 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] 04/24/2023 Prostate cancer (HCC) [C61] 09/11/2023 Paroxysmal atrial fibrillation (HCC) [I48.0] 09/11/2023 Cancer of lower lobe of right lung (HCC) [C34.3*11/15/2023 Postoperative pain [G89.18] 11/16/2023 Stage 1 mild COPD by GOLD classification ([facility]) *11/17/2023 Abscess of lower lobe of right lung without pne*11/17/2023 Pleural effusion, left [J90] 11/17/2023 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 Author Type: Nurse Practitioner Type: Progress Notes Filed: 08/20/2024 13:21 Note Text: Heart, Vascular AND Thoracic [place] Department of Thoracic Surgery VIRTUAL VIDEO VISIT ESTABLISHED OUTPATIENT VISIT SERVICE DATE: 08/20/2024 Patient: Stevie Angeles SERVICE TIME: 1:00 : 1950 This is a virtual video visit. It required patient-provider interaction for the medical decision making as documented below. Stevie Angeles has consented to this video encounter. I have communicated my name and active licensure. The patient's identity and physical location were verified at the time of this visit. Either the patient or their legal claims service representative has been informed of the risks and benefits of -- and alternatives to -- treatment through a remote evaluation and consents to proceed with the evaluation remotely. PAST MEDICAL HISTORY Diagnosis Date Abdominal aortic aneurysm without rupture Elevated PSA Hearing loss HTN (hypertension) Lumbosacral neuritis Malignant neoplasm of prostate (HCC) Other and unspecified hyperlipidemia Prostate cancer (HCC) 2020 xrt at [facility] [place] Smoker former quit 2021 Spinal stenosis of lumbar region with neurogenic claudication PAST SURGICAL HISTORY Procedure Laterality Date COLONOSCOPY 05/28/2008 HERNIA REPAIR HX age 20 PROSTATE BIOPSY HX 2020 REMOVAL OF LUNG,LOBECTOMY Right 11/15/2023 Robotic-assisted right lower lobectomy with right lower lobe bronchoplasty closure of airway and mediastinal and hilar lymph node dissection, intercostal and phrenic nerve block FAMILY HISTORY Problem Relation Age of Onset other (high blood pressure [Other]) Mother Diabetes Mother Hearing Loss Mother Prostate Cancer Other Social History Tobacco Use Smoking status: Former Current packs/day: 0.00 Average packs/day: 1 pack/day for 40.0 years (40.0 ttl pk-yrs) Types: Cigarettes Start date: 07/1981 Quit date: 07/2021 Years since quittin.0 Passive exposure: Past Smokeless tobacco: Never Substance Use Topics Alcohol use: Not Currently Alcohol/week: 6.0 standard drinks of alcohol Types: 6 Glasses of wine per week Drug use: No ALLERGIES No Known Allergies CURRENT MEDICATIONS fluticasone-salmeterol (WIXELA INHUB) 250-50 mcg/dose inhaler Inhale 1 puff as instructed two times a day. gabapentin (NEURONTIN) 300 mg capsule TAKE 2 CAPSULES BY MOUTH 3 TIMES A DAY lisinopril-hydroCHLOROthiazide (ZESTORETIC) 20-12.5 mg per tablet Take 1 tablet by mouth once daily. Patient should start on December 19, 2023. atorvastatin (LIPITOR) 20 mg tablet Take 1 tablet by mouth once daily. iv contrast (will be provided with radiology test) CT Chest W -Inject, intravenously, once for 1 dose.No IV access, insert saline lock prior to the beginning of sedation, infusion, injection of imaging exam. Discontinue saline lock post exam. If Pt. has a central line or IVAD, may access for administration according to line specific nursing protocol. Once exam is complete flush line and de-access according to line specific nursing protocol in theCT contrast administration guidelines link. albuterol HFA (PROVENTIL HFA, VENTOLIN HFA) 90 mcg/actuation inhaler Inhale 2 puffs as instructed every 4 hours as needed. REVIEW OF SYSTEMS: PAIN ASSESSMENT: Negative for pain, history of chronic pain, or current treatment for a chronic pain condition. RESPIRATORY: Negative for: Cough, Blood in Sputum, Shortness of breath, Wheezing, Apnea GASTROINTESTINAL: Negative for: Trouble swallowing, Heartburn, Change in bowel habits, Blood in stool, Dark black stools PHYSICAL EXAMINATION: VIDEO EXAM: (if completed, performed via video enabled technology) GENERAL: alert and appropriate, in no distress, well-hydrated, well nourished, and happy, smiling, interactive RESPIRATORY: breathing non-labored CHEST: equal chest rise with normal respiratory effort PATIENT ENTERED QUESTIONNAIRE SCORES 10/26/2023 PHQ-9 PHQ-2 Score 0 10/26/2023 10/04/2017 ARIELLA - 2/7 SCORES ARIELLA-2 Score 0 0 08/20/2024 05/09/2024 05/14/2018 PROMIS Global Health - (T-Scores - the mean of general population = 50. Five points is a clinically meaningful difference.) Physical T-Score 42.3 42.3 44.9 54.1 Mental T-Score 53.3 53.3 53.3 53.3 I personally spent 30 minutes in total time involved in the management and care of this patient. Romina Bedolla APRN.CNPJune 2024 Part of this note was copied from previous note, all content has been individually reviewed, updated as necessary, and thoroughly reviewed. [facility] - Heart, Vascular and Thoracic [place] OUTPATIENT THORACIC SURGERY CLINIC NOTE PT NAME: Stevie Angeles [facility] NO: [id number] THORACIC SURGEON: Paula Escobar M.D. DATE OF SERVICE: 08/20/2024 PRINCIPAL DX: - T1cN0/stage IA3 squamous cell cancer pf right lower lobe of lung 2023 - Bronchopleural fistula 2024 SURGICAL HX: 11/15/2023: Robotic-assisted right lower lobectomy with right lower lobe bronchoplasty closure of the airway and mediastinal and hilar lymph node dissection as well as intercostal and phrenic nerve block for NSCLC 02/01/2024: SBRT RUL cavitary lesion 06/19/2024: Right robotic assisted lysis of adhesions, repair of broncho/alveolar fistula, pleural flap and intercostal nerve block Surgical Pathology: 11/15/2023 FINAL DIAGNOSIS A. 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 - Extensive post-obstructive changes with acute and organizing bronchopneumonia with suppurative exudate and microabscess formation. - Seven hilar/peribronchial lymph nodes, negative for tumor (0/7). - Vascular margin negative for tumor. B. Lymph node, level 9R, excision: - Negative for tumor (0/1). C. Lymph node, level 8R, excision: - Negative for tumor (0/1). D. Lymph node, level 8R, excision: - Negative for tumor (0/1). Few giant cells. E. Lymph node, level 10R, excision: - Negative for tumor (0/1). F. Lymph node, level 11R, excision: - Negative for tumor (0/1). G. Lung, additional airway, excision: - Keratinizing squamous cell carcinoma. - Bronchial margin negative for tumor Diagnosis Comment A. Selected slides from part A (including the inked margin) were reviewed at the [facility] thoracic pathology consensus conference on 11/23/23. Dr. Fauzia Oseguera, Dr. Alexis Altman, Dr. Fitch and Dr. Romina Bryan were present and concurred with this interpretation. The status of the margins was discussed with Dr. Escobar by email on 11/23/23 and discussed at the consensus conference. Because of the extensive nature of the suppurative process, margin assessment is difficult. G. The final bronchial margin is negative for tumor. Block for additional Biomarkers/Molecular studies A7 Synoptic Report LUNG 8th Edition - Protocol posted: 11/17/2021LUNG: RESECTION - All Specimens SPECIMEN Procedure Lobectomy Specimen Laterality Right TUMOR Tumor Focality Single focus Tumor Site Lower lobe of lung Tumor Size Total Tumor Size (size of entire tumor) Greatest Dimension (Centimeters): 2.5 cm Additional Dimension (Centimeters) 2.5 cm 1.8 cm Histologic Type Invasive squamous cell carcinoma, keratinizing Histologic Grade G2, moderately differentiated Spread Through Air Spaces (ROBIN) Not identified Visceral Pleura Invasion Not identified Direct Invasion of Adjacent Structures Not applicable (no adjacent structures present) Treatment Effect No known presurgical therapy Lymphovascular Invasion Not identified MARGINS Margin Status for Invasive Carcinoma Due to extensive suppuration, it is unclear whether the inked edge represents a true hilar soft tissue or parenchymal margin; discussed with Dr. Escobar on 11/23/23. The bronchial and vascular margins are negative. Margin Status for Non-Invasive Tumor Not applicable REGIONAL LYMPH NODES Lymph Node(s) from Prior Procedures No known prior lymph node sampling performed Regional Lymph Node Status All regional lymph nodes negative for tumor Number of Lymph Nodes Examined 12 Lan Site(s) Examined 8R: Para-esophageal (below patti) 9R: Pulmonary ligament 10R: Hilar 11R: Interlobar Right: hilar/peribronchial PATHOLOGIC STAGE CLASSIFICATION (pTNM, AJCC 8th Edition) Reporting of pT, pN, and (when applicable) pM categories is based on information available to the pathologist at the time the report is issued. As per the AJCC (Chapter 1, 8th Ed.) it is the managing physician?s responsibility to establish the final pathologic stage based upon all pertinent information, including but potentially not limited to this pathology report. pT Category pT1c pN Category pN0 ADDITIONAL FINDINGS Additional Findings Inflammation: Acute and organizing bronchopneumonia Post-obstructive changes . REASON FOR VISIT: Post-operative visit HPI: Stevie Angeles is a 73 year old male, with h/o HTN, HLD, COPD with a long tobacco use history, AAA (4.67 cm FU w VS), spinal stenosis and Prostate cancer [id number] adenocarcinoma prostate s/p TRUS random biopsy 09/24/20, s/p Lupron 45 mg IM injection 11/05/20 then external beam radiation therapy completed 01/15/21 (70 Gy/28fx). ADRIANA. Follow up w/ urology as an outpatientwho some. On 11/15/2023, Pt underwent complex resection of a locally advanced non-small cell lung cancer of the right lower lobe. The patient then underwent SBRT treatment of a right upper lobe lesion. After his treatment with SBRT, the patient began developing and gradually enlarging pneumatocele at the base of his right lung. This was first noted approximately 3 weeks after his treatment. This continued to enlarge developed significant compression of remaining right upper and right middle lobe.He underwent Right robotic assisted lysis of adhesions, repair of broncho/alveolar fistula, and intercostal nerve block on 06/19/[address] Escobar. Hospital course was uncomplicated and Right chest tube left in place for small air leak to a mini atrium to allow the lung heal. Patient was medically and surgically cleared for discharge on 06/23/2024 with chest tube. This was removed in OPD 07/02/23. PHYSICAL EXAM: VITAL SIGNS: There were no vitals taken for this visit. Room air Incision location: Right Thoracoport sites and Right Old chest tube sites with suture Incision Assessment: Well approximated and no drainage, swelling, erythema or warmth Drain/Tubes: NA IMAGING/TESTS: CXR 08/20/2024 IMPRESSION: Resolution of right hydropneumothorax since 07/01/2024 INTERVAL HISTORY: Stevie Angeles is seen today via a virtual visit. He has been feeling well. No pain complaints at the incision sites. Stopped Tylenol 2 weeks ago. Incisions are well healed. No SOB complaints. Slight non productive cough. he has not been very active due to the hot weather. CXR shows well expanded lungs. He has f/u visit with Dr Goss in radiation oncology 08/23/[address] visit with Dr Cantu in oncology 09/11/24. Will arrange a CT scan of the chest in 3 months to be done in [place] and then a virtual visit the next day. 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 Escobar. Post surgical underwent SBRT treatment of a right upper lobe lesion. After his treatment, patient began developing and gradually enlarging pneumatocele at the base of his right lung. Now s/p Right robotic assisted lysis of adhesions, repair of broncho/alveolar fistula, pleural flap and intercostal nerve block on 06/19/[address] Escobar. PLAN: - return in 6 weeks with virtual visit following CXR at [place] - oncology management with Dr Cantu, f/u 09/11/24 - radiation oncology management with Dr Goss, f/u 08/23/24 Romina Bedolla APRN.PROGRAM SUPPORT ASSISTANT XR CHEST 2V FRONTAL/LAT Observed: 2024 11:04 AM Status: F Source: [facility] * * *Final Report* * * DATE OF EXAM: Aug 19 2024 11:04AM MDX [id number] - XR CHEST 2V FRONTAL/LAT / PROCEDURE REASON: multiple diagnoses * * * * Physician Interpretation * * * * EXAMINATION: CHEST RADIOGRAPH (2 VIEW FRONTAL and LATERAL) CLINICAL HISTORY: Bronchopleural fistula (HCC) Cancer of overlapping sites of right lung (HCC) MQ: [id number] EXAM DATE/TIME: 08/19/2024 11:04 AM COMPARISON: 2024 RESULT: Lines, tubes, and devices: None. Lungs and pleura: Previously demonstrated right hydropneumothorax resolved. Persistent pleural thickening along the right lateral chest wall, extending into the minor fissure. Unchanged calcifications, right base. Unchanged volume loss, right middle lobe. Cardiomediastinal silhouette: Stable cardiac size. Tortuous aorta and brachiocephalic vessels. Bones and soft tissues: Unremarkable. IMPRESSION: Resolution of right hydropneumothorax since 07/01/2024 Agency Trainer: IMMANUEL Transcribe Date/Time: Aug 20 2024 11:10A Dictated by : IKE KERR MD This examination was interpreted and the report reviewed and electronically signed by: IKE KERR MD on Aug 20 2024 11:14AM EST [id number] PROGRESS Observed: 08/19/2024 11:00 AM Status: COMPLETED Source: [facility] HNO ID: [id number] Author: FADI MELGAR RT(R) Service: Radiology Author Type: Technologist Type: Progress Notes Filed: 08/19/2024 11:05 Note Text: Radiology Service Progress Note PATIENT NAME: Stevie Angeles DATE OF SERVICE: August 19, 2024 TIME: 11:05 AM PATIENT IDENTITY VERIFICATION COMPLETED USING TWO (2) IDENTIFIERS: Name and Date of confirmed by patient verbally. FALL SCREENING: Has the patient had 2 falls in the last year or 1 fall with injury or currently using an Ambulatory Assistive Device (Walker, Cane, Wheelchair, Crutches, etc.)? No PATIENT GENDER DATA: Assigned male at PATIENT RELEVANT IMPLANT DATA REVIEWED: Not Applicable PATIENT PRESENTS WITH AN IMPLANTABLE OR ATTACHED PAUNCH TRIMMER: No RADIOLOGY DEPARTMENT: General X-ray: Exam(s) Completed: Chest X-Ray PERIPHERAL IV DATA: Not applicable SIGNED BY: RT Patricia(R) August 19, 2024 11:05 AM PROGRESS Observed: 07/12/2024 11:20 AM Status: COMPLETED Source: [facility] HNO ID: [id number] Author: FLO CHESTER RN Service: ? Author Type: Registered Nurse Type: Progress Notes Filed: 07/12/2024 11:22 Note Text: Transitional Care Management (TCM) Follow-Up Note PCP Update / Actionable Items N/A - No specialty updates needed Patient Source: In-Network Discharge Follow-up outreach: TCM enrolled patient Outreach Summary: Patient reports he is doing very well, he's on Aspirin now. No acute or worsening symptoms or concerns, nor further questions at this time. Contact: Contact made with patient: Yes Spoke to: Patient Validation: Validated the person spoken to is actively involved in the patient's care. The patient was identified by Name and Date of . I'd like to get an update on how you're doing since our last phone call. Is now a good time to talk? Yes Symptoms: Are you feeling about the same, better or worse since leaving the hospital? Better Weekly Outreach: 2nd Outreach Medications: Do you have any questions about taking your medications, including which medications you should be on, or do you need refills on your medications? No Patient Questions / Concerns: Do you have any questions related to your discharge? No Appointment / TCM Follow-Up: Have you had a follow-up visit with your Primary Care Provider or Specialist since you were discharged? Yes Do you need any assistance with scheduling or changing your follow-up appointments? Patient already has an appointment scheduled SDOH: Has Food and Housing been addressed in [employer] in the past 3 months? Yes EDUCATION--: Patient and family educated on issues/questions related to reason for admission, transition of care topics, and follow-up needed upon discharge. Flo Chester RN July 12, 2024 11:20 AM BEATRIS Observed: 07/12/2024 12:00 AM Status: COMPLETED Source: [facility] Patient Outreach ([facility]) STEVIE ANGELES ([id number]) 1950 M DEF Date Time Provider Department 07/12/24 [place]LO [place] [facility] [place] visit today, we recorded the following information about you: Flo Chester RN 07/12/2024 11:22 AM Signed Transitional Care Management (TCM) Follow-Up Note PCP Update / Actionable Items N/A - No specialty updates needed Patient Source: In-Network Discharge Follow-up outreach: TCM enrolled patient Outreach Summary: Patient reports he is doing very well, he's on Aspirin now. No acute or worsening symptoms or concerns, nor further questions at this time. Contact: Contact made with patient: Yes Spoke to: Patient Validation: Validated the person spoken to is actively involved in the patient's care. The patient was identified by Name and Date of . I'd like to get an update on how you're doing since our last phone call. Is now a good time to talk? Yes Symptoms: Are you feeling about the same, better or worse since leaving the hospital? Better Weekly Outreach: 2nd Outreach Medications: Do you have any questions about taking your medications, including which medications you should be on, or do you need refills on your medications? No Patient Questions / Concerns: Do you have any questions related to your discharge? No Appointment / TCM Follow-Up: Have you had a follow-up visit with your Primary Care Provider or Specialist since you were discharged? Yes Do you need any assistance with scheduling or changing your follow-up appointments? Patient already has an appointment scheduled SDOH: Has Food and Housing been addressed in [employer] in the past 3 months? Yes EDUCATION--: Patient and family educated on issues/questions related to reason for admission, transition of care topics, and follow-up needed upon discharge. Flo Chester RN July 12, 2024 11:20 AM Allergies As of Date: 07/12/2024 (No Known Allergies) Date Reviewed: 2024 Reviewed by: Geni James MA - Fully Assessed Prescriptions as of 07/12/2024 - senna-docusate (SENNA WITH DOCUSATE SODIUM) 8.6-50 mg per tablet Take 1 tablet by mouth two times a day. - fluticasone-salmeterol (WIXELA INHUB) 250-50 mcg/dose inhaler Inhale 1 puff as instructed two times a day. - albuterol HFA (PROVENTIL HFA, VENTOLIN HFA) 90 mcg/actuation inhaler Inhale 2 puffs as instructed every 4 hours as needed. - acetaminophen (TYLENOL) 325 mg tablet Take 2 tablets by mouth every 4 hours as needed for pain. - gabapentin (NEURONTIN) 300 mg capsule TAKE 2 CAPSULES BY MOUTH 3 TIMES A DAY - lisinopril-hydroCHLOROthiazide (ZESTORETIC) 20-12.5 mg per tablet Take 1 tablet by mouth once daily. Patient should start on December 19, 2023. - atorvastatin (LIPITOR) 20 mg tablet Take 1 tablet by mouth once daily. 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] 04/24/2023 Prostate cancer (HCC) [C61] 09/11/2023 Paroxysmal atrial fibrillation (HCC) [I48.0] 09/11/2023 Cancer of lower lobe of right lung (HCC) [C34.3*11/15/2023 Postoperative pain [G89.18] 11/16/2023 Stage 1 mild COPD by GOLD classification (HCC) *11/17/2023 Abscess of lower lobe of right lung without pne*11/17/2023 Pleural effusion, left [J90] 11/17/2023 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] 11/17/2023 Pneumothorax [J93.9] 05/10/2024 Hearing loss [H91.90] 05/10/2024 Encounter Status:Closed by FLO CHESTER on 07/12/24 CNOV Observed: 2024 10:00 AM Status: COMPLETED Source: [facility] Office Visit (KIE) STEVIE ANGELES ([id number]) 1950 M DEF Date Time Provider Department 07/08/24 10:00 AM ROMINA BEDOLLA During your visit today, we recorded the following information about you: Temperature Pulse Respiration Blood pressure 98 degrees 73/minute 14/minute 125/77 Weight Height 77.2 kg 1.778 m Romina Bedolla APRN.CNP 2024 10:45 AM Signed Part of this note was copied from previous note, all content has been individually reviewed, updated as necessary, and thoroughly reviewed. [facility] - Heart, Vascular and Thoracic [place] OUTPATIENT THORACIC SURGERY CLINIC NOTE PT NAME: Stevie Angeles [facility] NO: [id number] THORACIC SURGEON: Paula Escobar M.D. 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 - Extensive post-obstructive changes with acute and organizing bronchopneumonia with suppurative exudate and microabscess formation. - Seven hilar/peribronchial lymph nodes, negative for tumor (0/7). - Vascular margin negative for tumor. B. Lymph node, level 9R, excision: - Negative for tumor (0/1). C. Lymph node, level 8R, excision: - Negative for tumor (0/1). D. Lymph node, level 8R, excision: - Negative for tumor (0/1). Few giant cells. E. Lymph node, level 10R, excision: - Negative for tumor (0/1). F. Lymph node, level 11R, excision: - Negative for tumor (0/1). G. Lung, additional airway, excision: - Keratinizing squamous cell carcinoma. - Bronchial margin negative for tumor Diagnosis Comment A. Selected slides from part A (including the inked margin) were reviewed at the [facility] thoracic pathology consensus conference on 11/23/23. Dr. Fauzia Oseguera, Dr. Alexis Altman, Dr. Fitch and Dr. Romina Farver were present and concurred with this interpretation. The status of the margins was discussed with Dr. Escobar by email on 11/23/23 and discussed at the consensus conference. Because of the extensive nature of the suppurative process, margin assessment is difficult. G. The final bronchial margin is negative for tumor. Block for additional Biomarkers/Molecular studies A7 Synoptic Report LUNG 8th Edition - Protocol posted: 11/17/2021LUNG: RESECTION - All Specimens SPECIMEN Procedure Lobectomy Specimen Laterality Right TUMOR Tumor Focality Single focus Tumor Site Lower lobe of lung Tumor Size Total Tumor Size (size of entire tumor) Greatest Dimension (Centimeters): 2.5 cm Additional Dimension (Centimeters) 2.5 cm 1.8 cm Histologic Type Invasive squamous cell carcinoma, keratinizing Histologic Grade G2, moderately differentiated Spread Through Air Spaces (ROBIN) Not identified Visceral Pleura Invasion Not identified Direct Invasion of Adjacent Structures Not applicable (no adjacent structures present) Treatment Effect No known presurgical therapy Lymphovascular Invasion Not identified MARGINS Margin Status for Invasive Carcinoma Due to extensive suppuration, it is unclear whether the inked edge represents a true hilar soft tissue or parenchymal margin; discussed with Dr. Escobar on 11/23/23. The bronchial and vascular margins are negative. Margin Status for Non-Invasive Tumor Not applicable REGIONAL LYMPH NODES Lymph Node(s) from Prior Procedures No known prior lymph node sampling performed Regional Lymph Node Status All regional lymph nodes negative for tumor Number of Lymph Nodes Examined 12 Lan Site(s) Examined 8R: Para-esophageal (below patti) 9R: Pulmonary ligament 10R: Hilar 11R: Interlobar Right: hilar/peribronchial PATHOLOGIC STAGE CLASSIFICATION (pTNM, AJCC 8th Edition) Reporting of pT, pN, and (when applicable) pM categories is based on information available to the pathologist at the time the report is issued. As per the AJCC (Chapter 1, 8th Ed.) it is the managing physician?s responsibility to establish the final pathologic stage based upon all pertinent information, including but potentially not limited to this pathology report. pT Category pT1c pN Category pN0 ADDITIONAL FINDINGS Additional Findings Inflammation: Acute and organizing bronchopneumonia Post-obstructive changes . REASON FOR VISIT: Post-operative visit/suture removal HPI: Stevie Angeles is a 73 year old male, with h/o HTN, HLD, COPD with a long tobacco use history, AAA (4.67 cm FU w VS), spinal stenosis and Prostate cancer [id number] adenocarcinoma prostate s/p TRUS random biopsy 09/24/20, s/p Lupron 45 mg IM injection 11/05/20 then external beam radiation therapy completed 01/15/21 (70 Gy/28fx). ADRIANA. Follow up w/ urology as an outpatientwho some. On 11/15/2023, Pt underwent complex resection of a locally advanced non-small cell lung cancer of the right lower lobe. The patient then underwent SBRT treatment of a right upper lobe lesion. After his treatment with SBRT, the patient began developing and gradually enlarging pneumatocele at the base of his right lung. This was first noted approximately 3 weeks after his treatment. This is continued to enlarge and now presents with significant compression of remaining right upper and right middle lobe. The patient is without obvious infection and actually feels quite well other than some mild worsening shortness of breath. Therefore, Pt underwent Right robotic assisted lysis of adhesions, repair of broncho/alveolar fistula, and intercostal nerve block on 06/19/[address] Escobar. Hospital course was uncomplicated and Right chest tube left in place for small air leak to a mini atrium to allow the lung heal. Patient was medically and surgically cleared for discharge on 06/23/2024 with chest tube. This was removed in OPD 07/02/23. PHYSICAL EXAM: VITAL SIGNS: BP 125/77 Pulse 73 Temp 36.7 ?C (98 ?F) (Oral) Resp 14 Ht 177.8 cm (5' 10) Wt 77.2 kg (170 lb 3.2 oz) SpO2 96% BMI 24.42 kg/m? Room air Incision location: Right Thoracoport sites and Right Old chest tube sites with suture Incision Assessment: Well approximated and no drainage, swelling, erythema or warmth Drain/Tubes: NA GENERAL no acute distress alert and oriented x3 HEENT normocephalic, head midline, oral mucous membranes moist HEART regular rate and rhythm S1-S2 normal, no murmur LUNGS clear to auscultation bilaterally, diminished right base, no rhonchi rales or wheezing ABDOMEN soft nontender, nondistended. Bowel sounds active x 4 quadrants EXTREMITIES no clubbing, cyanosis or edema MUSCULOSKELETAL gait within normal limits SKIN no rashes or petechiae IMAGING/TESTS: CXR 2024 INTERVAL HISTORY: Stevie Richmond returns for post op visit and suture removal. he has been doing well. He states he is only taking Tylenol for discomfort. Breathing has improved since surgery. No cough or SOB. Incisions are healing well. Chest tube sutures are easily removed. he tolerated this well. CXR shows a right posterior space that is filling with fluid. He will return with a virtual visit in 6 weeks after CXR in [place]. Will arrange for follow up with his oncology teams. 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 Escobar. Post surgical underwent SBRT treatment of a right upper lobe lesion. After his treatment, patient began developing and gradually enlarging pneumatocele at the base of his right lung. Now s/p Right robotic assisted lysis of adhesions, repair of broncho/alveolar fistula, pleural flap and intercostal nerve block on 06/19/[address] Escobar. 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 - fluticasone-salmeterol (WIXELA INHUB) 250-50 mcg/dose inhaler Inhale 1 puff as instructed two times a day. - albuterol HFA (PROVENTIL HFA, VENTOLIN HFA) 90 mcg/actuation inhaler Inhale 2 puffs as instructed every 4 hours as needed. - acetaminophen (TYLENOL) 325 mg tablet Take 2 tablets by mouth every 4 hours as needed for pain. - gabapentin (NEURONTIN) 300 mg capsule TAKE 2 CAPSULES BY MOUTH 3 TIMES A DAY - lisinopril-hydroCHLOROthiazide (ZESTORETIC) 20-12.5 mg per tablet Take 1 tablet by mouth once daily. Patient should start on December 19, 2023. - atorvastatin (LIPITOR) 20 mg tablet Take 1 tablet by mouth once daily. 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 Follow-up and Disposition History for Encounter Date Provider Department Center 2024 [id number] BEDOLLA Encounter Status:Closed by ROMINA BEDOLLA on 07/08/24 PROGRESS Observed: 2024 9:44 AM Status: COMPLETED Source: [facility] HNO ID: [id number] Author: ROMINA BEDOLLA APRN.PROGRAM SUPPORT ASSISTANT Service: ? Author Type: Nurse Practitioner Type: Progress Notes Filed: 2024 10:45 Note Text: Part of this note was copied from previous note, all content has been individually reviewed, updated as necessary, and thoroughly reviewed. [facility] - Heart, Vascular and Thor[facility] [place] OUTPATIENT THORACIC SURGERY CLINIC NOTE PT NAME: Stevie Angeles [facility] NO: [id number] THORACIC SURGEON: Paula Escobar M.D. 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 - Extensive post-obstructive changes with acute and organizing bronchopneumonia with suppurative exudate and microabscess formation. - Seven hilar/peribronchial lymph nodes, negative for tumor (0/7). - Vascular margin negative for tumor. B. Lymph node, level 9R, excision: - Negative for tumor (0/1). C. Lymph node, level 8R, excision: - Negative for tumor (0/1). D. Lymph node, level 8R, excision: - Negative for tumor (0/1). Few giant cells. E. Lymph node, level 10R, excision: - Negative for tumor (0/1). F. Lymph node, level 11R, excision: - Negative for tumor (0/1). G. Lung, additional airway, excision: - Keratinizing squamous cell carcinoma. - Bronchial margin negative for tumor Diagnosis Comment A. Selected slides from part A (including the inked margin) were reviewed at the [facility] thoracic pathology consensus conference on 11/23/23. Dr. Fauzia Oseguera, Dr. Alexis Altman, Dr. Fitch and Dr. Romina Bryan were present and concurred with this interpretation. The status of the margins was discussed with Dr. Escobar by email on 11/23/23 and discussed at the consensus conference. Because of the extensive nature of the suppurative process, margin assessment is difficult. G. The final bronchial margin is negative for tumor. Block for additional Biomarkers/Molecular studies A7 Synoptic Report LUNG 8th Edition - Protocol posted: 11/17/2021LUNG: RESECTION - All Specimens SPECIMEN Procedure Lobectomy Specimen Laterality Right TUMOR Tumor Focality Single focus Tumor Site Lower lobe of lung Tumor Size Total Tumor Size (size of entire tumor) Greatest Dimension (Centimeters): 2.5 cm Additional Dimension (Centimeters) 2.5 cm 1.8 cm Histologic Type Invasive squamous cell carcinoma, keratinizing Histologic Grade G2, moderately differentiated Spread Through Air Spaces (ROBIN) Not identified Visceral Pleura Invasion Not identified Direct Invasion of Adjacent Structures Not applicable (no adjacent structures present) Treatment Effect No known presurgical therapy Lymphovascular Invasion Not identified MARGINS Margin Status for Invasive Carcinoma Due to extensive suppuration, it is unclear whether the inked edge represents a true hilar soft tissue or parenchymal margin; discussed with Dr. Escobar on 11/23/23. The bronchial and vascular margins are negative. Margin Status for Non-Invasive Tumor Not applicable REGIONAL LYMPH NODES Lymph Node(s) from Prior Procedures No known prior lymph node sampling performed Regional Lymph Node Status All regional lymph nodes negative for tumor Number of Lymph Nodes Examined 12 Lan Site(s) Examined 8R: Para-esophageal (below patti) 9R: Pulmonary ligament 10R: Hilar 11R: Interlobar Right: hilar/peribronchial PATHOLOGIC STAGE CLASSIFICATION (pTNM, AJCC 8th Edition) Reporting of pT, pN, and (when applicable) pM categories is based on information available to the pathologist at the time the report is issued. As per the AJCC (Chapter 1, 8th Ed.) it is the managing physician?s responsibility to establish the final pathologic stage based upon all pertinent information, including but potentially not limited to this pathology report. pT Category pT1c pN Category pN0 ADDITIONAL FINDINGS Additional Findings Inflammation: Acute and organizing bronchopneumonia Post-obstructive changes . REASON FOR VISIT: Post-operative visit/suture removal HPI: Stevie Angeles is a 73 year old male, with h/o HTN, HLD, COPD with a long tobacco use history, AAA (4.67 cm FU w VS), spinal stenosis and Prostate cancer [id number] adenocarcinoma prostate s/p TRUS random biopsy 09/24/20, s/p Lupron 45 mg IM injection 11/05/20 then external beam radiation therapy completed 01/15/21 (70 Gy/28fx). ADRIANA. Follow up w/ urology as an outpatientwho some. On 11/15/2023, Pt underwent complex resection of a locally advanced non-small cell lung cancer of the right lower lobe. The patient then underwent SBRT treatment of a right upper lobe lesion. After his treatment with SBRT, the patient began developing and gradually enlarging pneumatocele at the base of his right lung. This was first noted approximately 3 weeks after his treatment. This is continued to enlarge and now presents with significant compression of remaining right upper and right middle lobe. The patient is without obvious infection and actually feels quite well other than some mild worsening shortness of breath. Therefore, Pt underwent Right robotic assisted lysis of adhesions, repair of broncho/alveolar fistula, and intercostal nerve block on 06/19/[address] Escobar. Hospital course was uncomplicated and Right chest tube left in place for small air leak to a mini atrium to allow the lung heal. Patient was medically and surgically cleared for discharge on 06/23/2024 with chest tube. This was removed in OPD 07/02/23. PHYSICAL EXAM: VITAL SIGNS: BP 125/77 Pulse 73 Temp 36.7 ?C (98 ?F) (Oral) Resp 14 Ht 177.8 cm (5' 10) Wt 77.2 kg (170 lb 3.2 oz) SpO2 96% BMI 24.42 kg/m? Room air Incision location: Right Thoracoport sites and Right Old chest tube sites with suture Incision Assessment: Well approximated and no drainage, swelling, erythema or warmth Drain/Tubes: NA GENERAL no acute distress alert and oriented x3 HEENT normocephalic, head midline, oral mucous membranes moist HEART regular rate and rhythm S1-S2 normal, no murmur LUNGS clear to auscultation bilaterally, diminished right base, no rhonchi rales or wheezing ABDOMEN soft nontender, nondistended. Bowel sounds active x 4 quadrants EXTREMITIES no clubbing, cyanosis or edema MUSCULOSKELETAL gait within normal limits SKIN no rashes or petechiae IMAGING/TESTS: CXR 2024 INTERVAL HISTORY: Stevie Angeles returns for post op visit and suture removal. he has been doing well. He states he is only taking Tylenol for discomfort. Breathing has improved since surgery. No cough or SOB. Incisions are healing well. Chest tube sutures are easily removed. he tolerated this well. CXR shows a right posterior space that is filling with fluid. He will return with a virtual visit in 6 weeks after CXR in [place]. Will arrange for follow up with his oncology teams. 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 Escobar. Post surgical underwent SBRT treatment of a right upper lobe lesion. After his treatment, patient began developing and gradually enlarging pneumatocele at the base of his right lung. Now s/p Right robotic assisted lysis of adhesions, repair of broncho/alveolar fistula, pleural flap and intercostal nerve block on 06/19/[address] Escobar. PLAN: - return in 6 weeks with virtual visit following CXR at [place] - oncology management with Dr Cantu - radiation oncology management with Dr Ana Paula Bedolla, JESUS.PROGRAM SUPPORT ASSISTANT PROGRESS Observed: 2024 9:30 AM Status: COMPLETED Source: [facility] HNO ID: [id number] Author: ERMA JIN, RT(R) Service: Radiology Author Type: Technologist Type: Progress Notes Filed: 2024 09:08 Note Text: Radiology Service Progress Note PATIENT NAME: Stevie Angeles DATE OF SERVICE: 2024 TIME: 9:08 AM PATIENT IDENTITY VERIFICATION COMPLETED USING TWO (2) IDENTIFIERS: Name and Date of confirmed by patient verbally. FALL SCREENING: Has the patient had 2 falls in the last year or 1 fall with injury or currently using an Ambulatory Assistive Device (Walker, Cane, Wheelchair, Crutches, etc.)? No PATIENT GENDER DATA: Assigned male at PATIENT RELEVANT IMPLANT DATA REVIEWED: Not Applicable PATIENT PRESENTS WITH AN IMPLANTABLE OR ATTACHED PAUNCH TRIMMER: No RADIOLOGY DEPARTMENT: General X-ray: Exam(s) Completed: Chest X-Ray PERIPHERAL IV DATA: Not applicable SIGNED BY: Erma Jin RT(R) 2024 9:08 AM XR CHEST 2V FRONTAL/LAT Observed: 2024 9:06 AM Status: F Source: [facility] * * *Final Report* * * DATE OF EXAM: 2024 9:06AM JIX [id number] - XR CHEST 2V FRONTAL/LAT / PROCEDURE REASON: Other pneumothorax * * * * Physician Interpretation * * * * EXAMINATION: CHEST RADIOGRAPH (2 VIEW FRONTAL and LATERAL) CLINICAL HISTORY: Other pneumothorax MQ: [id number] EXAM DATE/TIME: 2024 9:06 AM COMPARISON: Chest radiograph(s) dated 07/01/2024 RESULTS: Lines, tubes, and devices: None. Lungs and pleura: Patient is status post reported RIGHT lower lobectomy. There is a right-sided hydropneumothorax with air-fluid level in the posteroinferior lower thorax, lateral new since the prior exam.. There is pleural thickening in the RIGHT hemithorax. There is focal thickening along the periphery of the minor fissure. A calcified granuloma is present in the RIGHT middle lobe. LEFT lung is clear of focal consolidation. Cardiomediastinal silhouette: The cardiomediastinal silhouette is stable since the prior exam with rightward cardiomediastinal shift. There are atherosclerotic calcifications in the aortic arch. Other: Endplate degenerative changes are present in the thoracic spine. IMPRESSION: No acute radiographic findings in the chest. Agency Trainer: [facility] Transcribe Date/Time: 2024 1:27P Dictated by : ALIYA BARRIENTOS MD This examination was interpreted and the report reviewed and electronically signed by: ALIYA BARRIENTOS MD on 2024 1:30PM EST [id number] PROGRESS Observed: 07/05/2024 10:47 AM Status: COMPLETED Source: [facility] HNO ID: [id number] Author: FLO CHESTER RN Service: ? Author Type: Registered Nurse Type: Progress Notes Filed: 07/05/2024 10:49 Note Text: Transitional Care Management (TCM) Follow-Up Note PCP Update / Actionable Items N/A - No specialty updates needed Patient Source: In-Network Discharge Follow-up outreach: TCM enrolled patient Outreach Summary: Contact: Contact made with patient: Yes Spoke to: Patient Validation: Validated the person spoken to is actively involved in the patient's care. The patient was identified by Name and Date of . I'd like to get an update on how you're doing since our last phone call. Is now a good time to talk? Yes Symptoms: Are you feeling about the same, better or worse since leaving the hospital? Better Weekly Outreach: 1st Outreach Medications: Do you have any questions about taking your medications, including which medications you should be on, or do you need refills on your medications? No Patient Questions / Concerns: Do you have any questions related to your discharge? No Appointment / TCM Follow-Up: Have you had a follow-up visit with your Primary Care Provider or Specialist since you were discharged? Yes Do you need any assistance with scheduling or changing your follow-up appointments? Patient already has an appointment scheduled EDUCATION: Patient and family educated on issues/questions related to reason for admission, transition of care topics, and follow-up needed upon discharge. Utilization Education - Where to go for Care Where to Go for Care Flo Chester RN July 05, 2024 10:47 AM BEATRIS Observed: 07/05/2024 12:00 AM Status: COMPLETED Source: [facility] Patient Outreach ([facility]) STEVIE ANGELES ([id number]) 1950 M [place] Date Time Provider Department 07/05/24 FLO CHESTER During your visit today, we recorded the following information about you: Flo Chester RN 07/05/2024 10:49 AM Signed Transitional Care Management (TCM) Follow-Up Note PCP Update / Actionable Items N/A - No specialty updates needed Patient Source: In-Network Discharge Follow-up outreach: TCM enrolled patient Outreach Summary: Contact: Contact made with patient: Yes Spoke to: Patient Validation: Validated the person spoken to is actively involved in the patient's care. The patient was identified by Name and Date of . I'd like to get an update on how you're doing since our last phone call. Is now a good time to talk? Yes Symptoms: Are you feeling about the same, better or worse since leaving the hospital? Better Weekly Outreach: 1st Outreach Medications: Do you have any questions about taking your medications, including which medications you should be on, or do you need refills on your medications? No Patient Questions / Concerns: Do you have any questions related to your discharge? No Appointment / TCM Follow-Up: Have you had a follow-up visit with your Primary Care Provider or Specialist since you were discharged? Yes Do you need any assistance with scheduling or changing your follow-up appointments? Patient already has an appointment scheduled EDUCATION: Patient and family educated on issues/questions related to reason for admission, transition of care topics, and follow-up needed upon discharge. Utilization Education - Where to go for Care Where to Go for Care Flo Chester RN July 05, 2024 10:47 AM Allergies As of Date: 07/05/2024 (No Known Allergies) Date Reviewed: 07/01/2024 Reviewed by: Geni James MA - Fully Assessed Prescriptions as of 07/05/2024 - senna-docusate (SENNA WITH DOCUSATE SODIUM) 8.6-50 mg per tablet Take 1 tablet by mouth two times a day. - fluticasone-salmeterol (WIXELA INHUB) 250-50 mcg/dose inhaler Inhale 1 puff as instructed two times a day. - albuterol HFA (PROVENTIL HFA, VENTOLIN HFA) 90 mcg/actuation inhaler Inhale 2 puffs as instructed every 4 hours as needed. - acetaminophen (TYLENOL) 325 mg tablet Take 2 tablets by mouth every 4 hours as needed for pain. - gabapentin (NEURONTIN) 300 mg capsule TAKE 2 CAPSULES BY MOUTH 3 TIMES A DAY - lisinopril-hydroCHLOROthiazide (ZESTORETIC) 20-12.5 mg per tablet Take 1 tablet by mouth once daily. Patient should start on December 19, 2023. - atorvastatin (LIPITOR) 20 mg tablet Take 1 tablet by mouth once daily. 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] 04/24/2023 Prostate cancer (HCC) [C61] 09/11/2023 Paroxysmal atrial fibrillation (HCC) [I48.0] 09/11/2023 Cancer of lower lobe of right lung (HCC) [C34.3*11/15/2023 Postoperative pain [G89.18] 11/16/2023 Stage 1 mild COPD by GOLD classification (HCC) *11/17/2023 Abscess of lower lobe of right lung without pne*11/17/2023 Pleural effusion, left [J90] 11/17/2023 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] 11/17/2023 Pneumothorax [J93.9] 05/10/2024 Hearing loss [H91.90] 05/10/2024 Encounter Status:Closed by FLO CHESTER on 07/05/24 PROGRESS Observed: 07/01/2024 12:10 PM Status: COMPLETED [facility] [id number] Author: ERMA JIN RT(R) Service: Radiology Author Type: Technologist Type: Progress Notes Filed: 07/01/2024 12:05 Note Text: Radiology Service Progress Note PATIENT NAME: Stevie Angeles DATE OF SERVICE: July 01, 2024 TIME: 12:04 PM PATIENT IDENTITY VERIFICATION COMPLETED USING TWO (2) IDENTIFIERS: Name and Date of confirmed by patient verbally. FALL SCREENING: Has the patient had 2 falls in the last year or 1 fall with injury or currently using an Ambulatory Assistive Device (Walker, Cane, Wheelchair, Crutches, etc.)? No PATIENT GENDER DATA: Assigned male at PATIENT RELEVANT IMPLANT DATA REVIEWED: Not Applicable PATIENT PRESENTS WITH AN IMPLANTABLE OR ATTACHED PAUNCH TRIMMER: No RADIOLOGY DEPARTMENT: General X-ray: Exam(s) Completed: Chest X-Ray PERIPHERAL IV DATA: Not applicable SIGNED BY: Erma Jin, RT(R) July 01, 2024 12:04 PM XR CHEST 2V FRONTAL/LAT Observed: 2024 12:04 PM Status: F Source: [facility] * * *Final Report* * * DATE OF EXAM: Jul 01 2024 12:04PM JIX [id number] - XR CHEST 2V FRONTAL/LAT / PROCEDURE REASON: Bronchopleural fistula (HCC) * * * * Physician Interpretation * * * * EXAMINATION: CHEST RADIOGRAPH (2 VIEW FRONTAL and LATERAL) CLINICAL HISTORY: Bronchopleural fistula (HCC) MQ: [id number] EXAM DATE/TIME: 07/01/2024 12:04 PM COMPARISON: 07/01/2024 at 10:14 AM RESULT: Lines, tubes, and devices: Right chest tube has been removed. Lungs and pleura: Small right basal hydropneumothorax is present, unchanged. No new consolidations. No pulmonary edema. Cardiomediastinal silhouette: Stable cardiomediastinal silhouette. Bones and soft tissues: Unremarkable. IMPRESSION: See result. Agency Trainer: [facility] Transcribe Date/Time: Jul 01 2024 12:42P Dictated by : IVON PEREIRA MD This examination was interpreted and the report reviewed and electronically signed by: IVON PEREIRA MD on Jul 01 2024 12:43PM EST [id number] PROGRESS Observed: 07/01/2024 11:00 AM Status: COMPLETED Source: [facility] HNO ID: [id number] Author: NYDIA HOBSON APRN.PROGRAM SUPPORT ASSISTANT Service: ? Author Type: Nurse Practitioner Type: Progress Notes Filed: 07/01/2024 12:18 Note Text: [facility] - Heart, Vascular and Thoracic [place] OUTPATIENT THORACIC SURGERY CLINIC NOTE PT NAME: Stevie Angeles [facility] NO: [id number] THORACIC SURGEON: Paula Escobar M.D. DATE OF SERVICE: July 01, 2024 PRINCIPAL DX: Bronchopleural fistula SURGICAL HX: 06/19/2024: Right robotic assisted lysis of adhesions, repair of broncho/alveolar fistula, pleural flap and intercostal nerve block 11/15/2023: Robotic-assisted right lower lobectomy with right lower lobe bronchoplasty closure of the airway and mediastinal and hilar lymph node dissection as well as intercostal and phrenic nerve block for NSCLC Surgical Pathology: 11/15/2023 FINAL DIAGNOSIS A. 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 - Extensive post-obstructive changes with acute and organizing bronchopneumonia with suppurative exudate and microabscess formation. - Seven hilar/peribronchial lymph nodes, negative for tumor (0/7). - Vascular margin negative for tumor. B. Lymph node, level 9R, excision: - Negative for tumor (0/1). C. Lymph node, level 8R, excision: - Negative for tumor (0/1). D. Lymph node, level 8R, excision: - Negative for tumor (0/1). Few giant cells. E. Lymph node, level 10R, excision: - Negative for tumor (0/1). F. Lymph node, level 11R, excision: - Negative for tumor (0/1). G. Lung, additional airway, excision: - Keratinizing squamous cell carcinoma. - Bronchial margin negative for tumor Diagnosis Comment A. Selected slides from part A (including the inked margin) were reviewed at the [facility] thoracic pathology consensus conference on 11/23/23. Dr. Fauzia Oseguera, Dr. Alexis Altman, Dr. Fitch and Dr. Romina Bryan were present and concurred with this interpretation. The status of the margins was discussed with Dr. Escobar by email on 11/23/23 and discussed at the consensus conference. Because of the extensive nature of the suppurative process, margin assessment is difficult. G. The final bronchial margin is negative for tumor. Block for additional Biomarkers/Molecular studies A7 Synoptic Report LUNG 8th Edition - Protocol posted: 11/17/2021LUNG: RESECTION - All Specimens SPECIMEN Procedure Lobectomy Specimen Laterality Right TUMOR Tumor Focality Single focus Tumor Site Lower lobe of lung Tumor Size Total Tumor Size (size of entire tumor) Greatest Dimension (Centimeters): 2.5 cm Additional Dimension (Centimeters) 2.5 cm 1.8 cm Histologic Type Invasive squamous cell carcinoma, keratinizing Histologic Grade G2, moderately differentiated Spread Through Air Spaces (ROBIN) Not identified Visceral Pleura Invasion Not identified Direct Invasion of Adjacent Structures Not applicable (no adjacent structures present) Treatment Effect No known presurgical therapy Lymphovascular Invasion Not identified MARGINS Margin Status for Invasive Carcinoma Due to extensive suppuration, it is unclear whether the inked edge represents a true hilar soft tissue or parenchymal margin; discussed with Dr. Escobar on 11/23/23. The bronchial and vascular margins are negative. Margin Status for Non-Invasive Tumor Not applicable REGIONAL LYMPH NODES Lymph Node(s) from Prior Procedures No known prior lymph node sampling performed Regional Lymph Node Status All regional lymph nodes negative for tumor Number of Lymph Nodes Examined 12 Lan Site(s) Examined 8R: Para-esophageal (below patti) 9R: Pulmonary ligament 10R: Hilar 11R: Interlobar Right: hilar/peribronchial PATHOLOGIC STAGE CLASSIFICATION (pTNM, AJCC 8th Edition) Reporting of pT, pN, and (when applicable) pM categories is based on information available to the pathologist at the time the report is issued. As per the AJCC (Chapter 1, 8th Ed.) it is the managing physician?s responsibility to establish the final pathologic stage based upon all pertinent information, including but potentially not limited to this pathology report. pT Category pT1c pN Category pN0 ADDITIONAL FINDINGS Additional Findings Inflammation: Acute and organizing bronchopneumonia Post-obstructive changes . REASON FOR VISIT: First post-operative visit HPI: Stevie Angeles is a 73 year old male, with h/o HTN, HLD, COPD with a long tobacco use history, AAA (4.67 cm FU w VS), spinal stenosis and Prostate cancer [id number] adenocaarcinoma prostate s/p TRUS random biopsy 09/24/20, s/p Lupron 45 mg IM injection 11/05/20 then external beam radiation therapy completed 01/15/21 (70 Gy/28fx). ADRIANA. Follow up w/ urology as an outpatientwho some. On 11/15/2023, Pt underwent complex resection of a locally advanced non-small cell lung cancer of the right lower lobe. The patient then underwent SBRT treatment of a right upper lobe lesion. After his treatment with SBRT, the patient began developing and gradually enlarging pneumatocele at the base of his right lung. This was first noted approximately 3 weeks after his treatment. This is continued to enlarge and now presents with significant compression of remaining right upper and right middle lobe. The patient is without obvious infection and actually feels quite well other than some mild worsening shortness of breath. Therefore, Pt underwent Right robotic assisted lysis of adhesions, repair of broncho/alveolar fistula, and intercostal nerve block on 06/19/[address] Escobar. Hospital course was uncomplicated and Right chest tube left in place for small air leak to a mini atrium to allow the lung heal. Patient was medically and surgically cleared for discharge on 06/23/2024. PHYSICAL EXAM: VITAL SIGNS: BP 115/74 Pulse 76 Temp 36.9 ?C (98.5 ?F) (Oral) Resp 14 Ht 177.8 cm (5' 10) Wt 77.1 kg (170 lb) SpO2 96% BMI 24.39 kg/m? Room air Incision location: Right Thoracoport sites and Right Old chest tube sites with suture Incision Assessment: Well approximated and no drainage, swelling, erythema or warmth Drain/Tubes: Right Chest Tubes with mini atrium GENERAL: well appearing, alert, no acute distress, well-hydrated, well nourished HEENT: normocephalic, midline, anicteric sclera. LUNGS: clear to auscultation, fine crackle RLL, no wheezing or rhonchi HEART: RRR without murmur ABDOMEN: Soft, non-tender, non distended. No masses, + BS EXTREMITIES: FLETCHER, no cyanosis or edema. SKIN: turgor normal, no suspicious rashes or lesions NEURO: AO x3 Non-focal, Sensation grossly intact. PSYCH: appropriate behavior and mood IMAGING/TESTS: CXR July 01, 2024: RESULT: Lines, tubes, and devices: Stable right chest tube. Lungs and pleura: There is again a loculated right basal hydropneumothorax. No new consolidations. No pulmonary edema. INTERVAL HISTORY: Stevie Angeles returns for first post op visit. He has been doing well. He has had adequate pain management with the use of tylenol and has completed Oxy. He denies any SOB, fevers, chills. No c/o nausea or vomiting. He has been tolerating diet but not having regular BM. He has been using Miralax BID, LBM 06/27/24. He has walked 1-1.5 miles per day since discharge except last 2 days due to weather. He has occasional cough mostly non-productive. He is using Vibrapep sporadically. He has drained the CT once on 06/29 since discharge on 06/23 output was 600 ml. 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 Escobar. Post surgical underwent SBRT treatment of a right upper lobe lesion. After his treatment, patient began developing and gradually enlarging pneumatocele at the base of his right lung. Now s/p Right robotic assisted lysis of adhesions, repair of broncho/alveolar fistula, pleural flap and intercostal nerve block on 06/19/[address] Escobar. Incisions are healing well and suture removed from old CT site. Right CT to mini atrium w/o air leak, output 220 ml since last drained on 06/29/24. CXR shows stable loculated right basal hydropneumothorax We have discussed increasing aerobic activity daily, as well as maintaining weight restriction of 5-10 lbs for the first month after surgery. We have also discussed no driving while on narcotics. Discussed the use of Vibrapep at least 10x/hr and deep breathing and coughing. Chest tube is easily removed. Purse string suture is secured. Pt tolerated this well. Occlusive dressing placed to the site. Patient may remove dressing and shower tomorrow. Post pull CXR looks stable. Patient will return in 1 week for repeat CXR and suture removal. PLAN: - Continue tylenol 1000 mg Q6 hours for pain - Added Senokot 1 tab BID for constipation - return in 1 week for repeat CXR and suture removal. Nydia Hobson APRN.PROGRAM SUPPORT ASSISTANT CNOV Observed: 07/01/2024 11:00 AM Status: COMPLETED Source: [facility] Office Visit (IKE) STEVIE ANGELES ([id number]) 1950 M [facility] Date Time Provider Department 07/01/24 11:00 AM ANASTASIIA BUENROSTRO During your visit today, we recorded the following information about you: Temperature Pulse Respiration Blood pressure 98.5 degrees 76/minute 14/minute 115/74 Weight Height 77.1 kg 1.778 m Nydia Hobson APRN.CNP 07/01/2024 12:18 PM Signed [facility] Heart, Vascular and Thoracic [place] OUTPATIENT THORACIC SURGERY CLINIC NOTE PT NAME: Stevie Angeles [facility] NO: [id number] THORACIC SURGEON: Paula Escobra M.D. DATE OF SERVICE: July 01, 2024 PRINCIPAL DX: Bronchopleural fistula SURGICAL HX: 06/19/2024: Right robotic assisted lysis of adhesions, repair of broncho/alveolar fistula, pleural flap and intercostal nerve block 11/15/2023: Robotic-assisted right lower lobectomy with right lower lobe bronchoplasty closure of the airway and mediastinal and hilar lymph node dissection as well as intercostal and phrenic nerve block for NSCLC Surgical Pathology: 11/15/2023 FINAL DIAGNOSIS A. 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 - Extensive post-obstructive changes with acute and organizing bronchopneumonia with suppurative exudate and microabscess formation. - Seven hilar/peribronchial lymph nodes, negative for tumor (0/7). - Vascular margin negative for tumor. B. Lymph node, level 9R, excision: - Negative for tumor (0/1). C. Lymph node, level 8R, excision: - Negative for tumor (0/1). D. Lymph node, level 8R, excision: - Negative for tumor (0/1). Few giant cells. E. Lymph node, level 10R, excision: - Negative for tumor (0/1). F. Lymph node, level 11R, excision: - Negative for tumor (0/1). G. Lung, additional airway, excision: - Keratinizing squamous cell carcinoma. - Bronchial margin negative for tumor Diagnosis Comment A. Selected slides from part A (including the inked margin) were reviewed at the [facility] thoracic pathology consensus conference on 11/23/23. Dr. Fauzia Oseguera, Dr. Alexis Altman, Dr. Fitch and Dr. Romina Bryan were present and concurred with this interpretation. The status of the margins was discussed with Dr. Escobar by email on 11/23/23 and discussed at the consensus conference. Because of the extensive nature of the suppurative process, margin assessment is difficult. G. The final bronchial margin is negative for tumor. Block for additional Biomarkers/Molecular studies A7 Synoptic Report LUNG 8th Edition - Protocol posted: 11/17/2021LUNG: RESECTION - All Specimens SPECIMEN Procedure Lobectomy Specimen Laterality Right TUMOR Tumor Focality Single focus Tumor Site Lower lobe of lung Tumor Size Total Tumor Size (size of entire tumor) Greatest Dimension (Centimeters): 2.5 cm Additional Dimension (Centimeters) 2.5 cm 1.8 cm Histologic Type Invasive squamous cell carcinoma, keratinizing Histologic Grade G2, moderately differentiated Spread Through Air Spaces (ROBIN) Not identified Visceral Pleura Invasion Not identified Direct Invasion of Adjacent Structures Not applicable (no adjacent structures present) Treatment Effect No known presurgical therapy Lymphovascular Invasion Not identified MARGINS Margin Status for Invasive Carcinoma Due to extensive suppuration, it is unclear whether the inked edge represents a true hilar soft tissue or parenchymal margin; discussed with Dr. Escobar on 11/23/23. The bronchial and vascular margins are negative. Margin Status for Non-Invasive Tumor Not applicable REGIONAL LYMPH NODES Lymph Node(s) from Prior Procedures No known prior lymph node sampling performed Regional Lymph Node Status All regional lymph nodes negative for tumor Number of Lymph Nodes Examined 12 Lan Site(s) Examined 8R: Para-esophageal (below patti) 9R: Pulmonary ligament 10R: Hilar 11R: Interlobar Right: hilar/peribronchial PATHOLOGIC STAGE CLASSIFICATION (pTNM, AJCC 8th Edition) Reporting of pT, pN, and (when applicable) pM categories is based on information available to the pathologist at the time the report is issued. As per the AJCC (Chapter 1, 8th Ed.) it is the managing physician?s responsibility to establish the final pathologic stage based upon all pertinent information, including but potentially not limited to this pathology report. pT Category pT1c pN Category pN0 ADDITIONAL FINDINGS Additional Findings Inflammation: Acute and organizing bronchopneumonia Post-obstructive changes . REASON FOR VISIT: First post-operative visit HPI: Stevie Angeles is a 73 year old male, with h/o HTN, HLD, COPD with a long tobacco use history, AAA (4.67 cm FU w VS), spinal stenosis and Prostate cancer [id number] adenocaarcinoma prostate s/p TRUS random biopsy 09/24/20, s/p Lupron 45 mg IM injection 11/05/20 then external beam radiation therapy completed 01/15/21 (70 Gy/28fx). ADRIANA. Follow up w/ urology as an outpatientwho some. On 11/15/2023, Pt underwent complex resection of a locally advanced non-small cell lung cancer of the right lower lobe. The patient then underwent SBRT treatment of a right upper lobe lesion. After his treatment with SBRT, the patient began developing and gradually enlarging pneumatocele at the base of his right lung. This was first noted approximately 3 weeks after his treatment. This is continued to enlarge and now presents with significant compression of remaining right upper and right middle lobe. The patient is without obvious infection and actually feels quite well other than some mild worsening shortness of breath. Therefore, Pt underwent Right robotic assisted lysis of adhesions, repair of broncho/alveolar fistula, and intercostal nerve block on 06/19/[address] Escobar. Hospital course was uncomplicated and Right chest tube left in place for small air leak to a mini atrium to allow the lung heal. Patient was medically and surgically cleared for discharge on 06/23/2024. PHYSICAL EXAM: VITAL SIGNS: BP 115/74 Pulse 76 Temp 36.9 ?C (98.5 ?F) (Oral) Resp 14 Ht 177.8 cm (5' 10) Wt 77.1 kg (170 lb) SpO2 96% BMI 24.39 kg/m? Room air Incision location: Right Thoracoport sites and Right Old chest tube sites with suture Incision Assessment: Well approximated and no drainage, swelling, erythema or warmth Drain/Tubes: Right Chest Tubes with mini atrium GENERAL: well appearing, alert, no acute distress, well-hydrated, well nourished HEENT: normocephalic, midline, anicteric sclera. LUNGS: clear to auscultation, fine crackle RLL, no wheezing or rhonchi HEART: RRR without murmur ABDOMEN: Soft, non-tender, non distended. No masses, + BS EXTREMITIES: FLETCHER, no cyanosis or edema. SKIN: turgor normal, no suspicious rashes or lesions NEURO: AO x3 Non-focal, Sensation grossly intact. PSYCH: appropriate behavior and mood IMAGING/TESTS: CXR July 01, 2024: RESULT: Lines, tubes, and devices: Stable right chest tube. Lungs and pleura: There is again a loculated right basal hydropneumothorax. No new consolidations. No pulmonary edema. INTERVAL HISTORY: Stevie Angeles returns for first post op visit. He has been doing well. He has had adequate pain management with the use of tylenol and has completed Oxy. He denies any SOB, fevers, chills. No c/o nausea or vomiting. He has been tolerating diet but not having regular BM. He has been using Miralax BID, LBM 06/27/24. He has walked 1-1.5 miles per day since discharge except last 2 days due to weather. He has occasional cough mostly non-productive. He is using Vibrapep sporadically. He has drained the CT once on 06/29 since discharge on 06/23 output was 600 ml. 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 Escobar. Post surgical underwent SBRT treatment of a right upper lobe lesion. After his treatment, patient began developing and gradually enlarging pneumatocele at the base of his right lung. Now s/p Right robotic assisted lysis of adhesions, repair of broncho/alveolar fistula, pleural flap and intercostal nerve block on 06/19/[address] Escobar. Incisions are healing well and suture removed from old CT site. Right CT to mini atrium w/o air leak, output 220 ml since last drained on 06/29/24. CXR shows stable loculated right basal hydropneumothorax We have discussed increasing aerobic activity daily, as well as maintaining weight restriction of 5-10 lbs for the first month after surgery. We have also discussed no driving while on narcotics. Discussed the use of Vibrapep at least 10x/hr and deep breathing and coughing. Chest tube is easily removed. Purse string suture is secured. Pt tolerated this well. Occlusive dressing placed to the site. Patient may remove dressing and shower tomorrow. Post pull CXR looks stable. Patient will return in 1 week for repeat CXR and suture removal. PLAN: - Continue tylenol 1000 mg Q6 hours for pain - Added Senokot 1 tab BID for constipation - return in 1 week for repeat CXR and suture removal. VAIBHAV Mendez Mahadr, APRN.CNP 07/01/2024 11:39 AM Signed After surgery care 1. Keep the Incision Clean and Dry: Clean the incision gently using mild soap and water. Do not scrub or use harsh chemicals. Pat the incision area dry with a clean towel or gauze pad after cleaning. Avoid soaking the incision (e.g., no baths or swimming) until your after incisions are completely healed which may take 4-6 weeks. 2. Monitor for Signs of Infection: Look for increased redness, swelling, warmth, or drainage from the incision. If you notice any pus or foul-smelling discharge, or if the area becomes significantly red or swollen, contact your doctor immediately. If the incision becomes painful after initially feeling better, or if there is a fever, these could be signs of infection. 3. Keep the Dressing in Place (If Applicable): If a dressing was applied to your incision, change it as directed by your healthcare provider. 4. Avoid Tight Clothing Over the Incision: Wear loose-fitting clothing to avoid putting pressure on the incision area. Tight clothes can irritate the site and interfere with healing. 5. Pain Management: If prescribed pain medication, take it as directed. Be sure to follow any guidelines on dosage and timing. If you experience increased pain around the incision, let us know. You can take tylenol alternating with ibuprofen for pain control (do not exceed 4 g tylenol in a 24 hours, ibuprofen 600 mg every 6 hours as needed for pain). Please do not take Ibuprofen if you are on oral or injection blood thinners (e.g Eliquis, Xarelto, Plavix, Lovenox). 6. Physical Activity: Walking is encouraged (at lease 30 minutes per day as tolerated), this helps improve lung expansion, reduce swelling and lowers the chance of blood clots. No lifting/pushing/pulling greater than 10 lbs for 4 weeks after surgery. Do not perform typing section chief such as laundry and vacuuming. Do not perform yard work or gardening. Okay to drive if you're not taking any narcotic pain medication for at least 2 days and you feel you can safely maneuver a motor vehicle. Continue to use your horn or blue pickle at least 10 times hourly while awake to optimize lung expansion 7. Follow-Up Appointments: Attend all scheduled follow-up appointments to monitor the healing process and address any concerns. For routine non-urgent questions or concerns you may send a [employer] message to your provider. 8. Avoid Smoking: If you smoke, try to avoid it, as smoking can delay healing and increase the risk of infection. 9. When to Seek Medical Attention: If you experience increased pain, redness, or swelling at the incision site. If you notice a fever or other signs of infection (e.g., pus, foul odor). If you have trouble breathing or notice any changes in your chest area. 1 Referring Provider: PASTORA PIERRE [[id number]] Allergies As of Date: 07/01/2024 (No Known Allergies) Date Reviewed: 07/01/2024 Reviewed by: Geni James MA - Fully Assessed Reason for Visit: Established Patient [175] Primary Visit Diagnosis: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] Other Visit Diagnosis:Constipation due to opioid therapy [K59.03, T40.2X5A] Order(s):XR CHEST 2V FRONTAL/LAT [[id number]] Order #: [id number] FUTURE HVTI OP SURGERY FOLLOW UP ORDER [[id number]] Order #: [id number]: 1 XR CHEST 2V FRONTAL/LAT [[id number]] Order #: [id number] FUTURE senna-docusate (SENNA WITH DOCUSATE SODIUM) 8.6-50 mg per tabletTake 1 tablet by mouth two times a day.Disp: 60 tabletRfl: 0 Prescriptions as of 07/01/2024 - senna-docusate (SENNA WITH DOCUSATE SODIUM) 8.6-50 mg per tablet Take 1 tablet by mouth two times a day. - fluticasone-salmeterol (WIXELA INHUB) 250-50 mcg/dose inhaler Inhale 1 puff as instructed two times a day. - albuterol HFA (PROVENTIL HFA, VENTOLIN HFA) 90 mcg/actuation inhaler Inhale 2 puffs as instructed every 4 hours as needed. - acetaminophen (TYLENOL) 325 mg tablet Take 2 tablets by mouth every 4 hours as needed for pain. - gabapentin (NEURONTIN) 300 mg capsule TAKE 2 CAPSULES BY MOUTH 3 TIMES A DAY - lisinopril-hydroCHLOROthiazide (ZESTORETIC) 20-12.5 mg per tablet Take 1 tablet by mouth once daily. Patient should start on December 19, 2023. - atorvastatin (LIPITOR) 20 mg tablet Take 1 tablet by mouth once daily. 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 Keep the Incision Clean and Dry: Clean the incision gently using mild soap and water. Do not scrub or use harsh chemicals. Pat the incision area dry with a clean towel or gauze pad after cleaning. Avoid soaking the incision (e.g., no baths or swimming) until your after incisions are completely healed which may take 4-6 weeks. 2. Monitor for Signs of Infection: Look for increased redness, swelling, warmth, or drainage from the incision. If you notice any pus or foul-smelling discharge, or if the area becomes significantly red or swollen, contact your doctor immediately. If the incision becomes painful after initially feeling better, or if there is a fever, these could be signs of infection. 3. Keep the Dressing in Place (If Applicable): If a dressing was applied to your incision, change it as directed by your healthcare provider. 4. Avoid Tight Clothing Over the Incision: Wear loose-fitting clothing to avoid putting pressure on the incision area. Tight clothes can irritate the site and interfere with healing. 5. Pain Management: If prescribed pain medication, take it as directed. Be sure to follow any guidelines on dosage and timing. If you experience increased pain around the incision, let us know. You can take tylenol alternating with ibuprofen for pain control (do not exceed 4 g tylenol in a 24 hours, ibuprofen 600 mg every 6 hours as needed for pain). Please do not take Ibuprofen if you are on oral or injection blood thinners (e.g Eliquis, Xarelto, Plavix, Lovenox). 6. Physical Activity: Walking is encouraged (at lease 30 minutes per day as tolerated), this helps improve lung expansion, reduce swelling and lowers the chance of blood clots. No lifting/pushing/pulling greater than 10 lbs for 4 weeks after surgery. Do not perform typing section chief such as laundry and vacuuming. Do not perform yard work or gardening. Okay to drive if you're not taking any narcotic pain medication for at least 2 days and you feel you can safely maneuver a motor vehicle. Continue to use your horn or blue pickle at least 10 times hourly while awake to optimize lung expansion 7. Follow-Up Appointments: Attend all scheduled follow-up appointments to monitor the healing process and address any concerns. For routine non-urgent questions or concerns you may send a [employer] message to your provider. 8. Avoid Smoking: If you smoke, try to avoid it, as smoking can delay healing and increase the risk of infection. 9. When to Seek Medical Attention: If you experience increased pain, redness, or swelling at the incision site. If you notice a fever or other signs of infection (e.g., pus, foul odor). If you have trouble breathing or notice any changes in your chest area. 1 Prescriptions ordered this encounter Disp Refills Start End SENNOSIDES 8.6 MG-DOCUSATE SODIUM 50* 60 t* 0 07/01/2024 07/31/2024 Route: ORAL Sig: Take 1 tablet by mouth two times a day. Disposition: Return in about 1 week (around 2024). Follow-up and Disposition History for Encounter Date Provider Department Center 07/01/2024 [id number]-[id number] BUENROSTRO Encounter Status:Closed by NYDIA HOBSON on 07/01/24 PROGRESS Observed: 07/01/2024 10:30 AM Status: COMPLETED Source: [facility] HNO ID: [id number] Author: ERMA JIN RT(R) Service: Radiology Author Type: Technologist Type: Progress Notes Filed: 07/01/2024 10:19 Note Text: Radiology Service Progress Note PATIENT NAME: Stevie Angeles DATE OF SERVICE: July 01, 2024 TIME: 10:19 AM PATIENT IDENTITY VERIFICATION COMPLETED USING TWO (2) IDENTIFIERS: Name and Date of confirmed by patient verbally. FALL SCREENING: Has the patient had 2 falls in the last year or 1 fall with injury or currently using an Ambulatory Assistive Device (Walker, Cane, Wheelchair, Crutches, etc.)? No PATIENT GENDER DATA: Assigned male at PATIENT RELEVANT IMPLANT DATA REVIEWED: Not Applicable PATIENT PRESENTS WITH AN IMPLANTABLE OR ATTACHED PAUNCH TRIMMER: No RADIOLOGY DEPARTMENT: General X-ray: Exam(s) Completed: Chest X-Ray PERIPHERAL IV DATA: Not applicable SIGNED BY: Erma Jin, RT(R) July 01, 2024 10:19 AM XR CHEST 2V FRONTAL/LAT Observed: 2024 10:17 AM Status: F Source: [facility] * * *Final Report* * * DATE OF EXAM: Jul 01 2024 10:17AM JIX [id number] - XR CHEST 2V FRONTAL/LAT / PROCEDURE REASON: Bronchopleural fistula (HCC) * * * * Physician Interpretation * * * * EXAMINATION: CHEST RADIOGRAPH (2 VIEW FRONTAL and LATERAL) CLINICAL HISTORY: Bronchopleural fistula (HCC) MQ: [id number] EXAM DATE/TIME: 07/01/2024 10:17 AM COMPARISON: 06/23/2024 RESULT: Lines, tubes, and devices: Stable right chest tube. Lungs and pleura: There is again a loculated right basal hydropneumothorax. No new consolidations. No pulmonary edema. Cardiomediastinal silhouette: Stable cardiomediastinal silhouette. Bones and soft tissues: Unremarkable. IMPRESSION: See result. Agency Trainer: IMMANUEL Transcribe Date/Time: Jul 01 2024 10:40A Dictated by : IVON PEREIRA MD This examination was interpreted and the report reviewed and electronically signed by: IVON PEREIRA MD on Jul 01 2024 10:41AM EST [id number] PROGRESS Observed: 06/24/2024 4:51 PM Status: COMPLETED Source: [facility] HNO ID: [id number] Author: THAD CHAVES MA Service: ? Author Type: License Examiner Type: Progress Notes Filed: 06/24/2024 17:00 Note Text: POPULATION HEALTH NAVIGATION OUTREACH Action/I June 24, 2024 4:51 PM CM Pool Message ~ TCM Navigation Team Update / Actionable Items Readmission risk is LOW =9 Please schedule PCP Hospital Follow Up within 30 days Patient discharged from [facility] Discharge date: 06/23/24 Admitted for: Hydropneumothorax Readmission Risk: 9 Value-Based Contract: Russ HARKINS No Health Maintenance Due: ~Patient is scheduled on October 24, 2024 with Praful Su MD for follow up Outcome: Spoke with patient in regards to scheduling his hospital follow up. He states he is doing fine and does not feel the need to come in for this appointment. Discussed scheduling this for a few weeks out. Patient declined. States he has a lot going on right now. He will contact Dr Lugo if he has any concerns or questions. Thank you Reason for Outreach Community Monitoring/Network Navigator Pools AND Phone Line: CM Pool Care Gaps due: Follow-up Appointment Patient Contacted: Spoke to patient/parent/or legal guardian Patient identified by name and : Yes Community Monitoring/Network Navigator Pools AND Phone Line actions taken: Patient declined: Doesn't feel it's necessary Navigation Signature: Thad Chaves MA June 24, 2024 4:51 PM PROGRESS Observed: 06/24/2024 4:34 PM Status: COMPLETED Source: [facility] HNO ID: [id number] Author: FLO CHESTER RN Service: ? Author Type: Registered Nurse Type: Progress Notes Filed: 06/24/2024 16:46 Note Text: Transition Care Management (TCM) Initial Outreach PCP Update / Actionable Items Navigation Team Update / Actionable Items Readmission risk is LOW =9 Please schedule PCP Hospital Follow Up within 30 days HRTIC TCM Home Visit Referral Source of Stratification: [facility] Hospital Admission Status: Discharged Readmission Risk Score: 9 Patient's zip code: [address] Is zip code within program service area: Y Patient meets program referral criteria: No Patient does not qualify for High Risk TCM Home Visit program due to: Readmission Risk Score does not meet criteria Disposition: Patient does not qualify for HRTIC, will provide TCM outreach follow-up for 30-days Patient Source: In-Network Discharge Initial outreach: TCM discharge report Outreach Summary: Patient reports he is feeling much better since he is home. He was admitted for a procedure related to his Hydropneumothorax. Patient was sent home with a chest rube and Atrium device in place, he verbalized he is comfortable with care of the site and draining the Atrium as ordered. Patient has a Niece whoo is nearby and comes frequently to check on him and assist as needed. All medication are filled and in the home as prescribed. No acute or worsening symptoms, nor further questions at this time. Patient discharged from [facility] Discharge date: 06/23/24 Admitted for: Hydropneumothorax Readmission Risk: 9 Value-Based Contract: Russ HARKINS Contact: Contact made with patient: Yes Hi, my name is Flo Chester RN and I am calling from the [facility] on behalf of your Primary Care Provider, Praful Su MD. I understand you were recently in the hospital, so I am calling to check in with you to ensure you are feeling well now that you are home. May I ask you a few questions related to your hospital stay and well-being? Yes Spoke to: Patient Validation: Validated the person spoken to is actively involved in the patient's care. The patient was identified by Name and Date of . Symptoms: Are you feeling about the same, better or worse since leaving the hospital? Better Medications: Do you have any questions about taking your medications, including which medications you should be on, or do you need refills on your medications? No Medication Review: Partial mediation review completed, per patient preference Discharge Instructions: Your Discharge Instructions / After Visit Summary (AVS) are important in guiding you through the recovery process. Do you have any questions related to your discharge instructions? No Home Care: Were you discharged with home care? No Equipment: Do you have all the necessary equipment and supplies needed at your home? Not applicable Social: Your mental health is as important to us as your physical health. Would you mind answering a few questions on this topic? Yes On the Storyboard review: Food Insecurity, Transportation, Depression, Housing, and Financial Strain: Complete any SDOHs, listed above, if not addressed in the past 3 months. If all SDOHs, listed above, have been addressed within the last 3 months, confirm responses and update any SDOHs that have changed. Action Taken: No needs verbalized. No action required. Follow-Up Appointment: [Appointment / TCM Follow-up within 14 days] I would like to help you schedule a hospital follow-up virtual or telephone visit with your PCP. This is a great way for you to connect with your provider to ensure you have safely transitioned home. If you are agreeable, I will send your request to a oil truck driver who will contact and assist you with that appointment. This will give you an opportunity to ask any questions or address any concerns you may have with your PCP. Inform the patient that if they have any questions or concerns prior to that appointment, to call their PCP's office right away. Appointment Action: Patient desires an appointment. Complete Navigation Team box and route to appropriate pool for scheduling. Education details: Patient and family educated on issues/questions related to reason for admission, transition of care topics, and follow-up needed upon discharge. Utilization Education - Where to go for Care Where to Go for Care Flo Chester RN June 24, 2024 4:35 PM BEATRIS Observed: 06/24/2024 12:00 AM Status: COMPLETED Source: [facility] Patient Outreach ([facility]) STEVIE ANGELES ([id number]) 1950 M DEF Date Time Provider Department 06/24/24 FLO CHESTER During your visit today, we recorded the following information about you: Flo Chester RN 06/24/2024 4:46 PM Signed Transition Care Management (TCM) Initial Outreach PCP Update / Actionable Items Navigation Team Update / Actionable Items Readmission risk is LOW =9 Please schedule PCP Hospital Follow Up within 30 days HRTIC TCM Home Visit Referral Source of Stratification: [facility] Hospital Admission Status: Discharged Readmission Risk Score: 9 Patient's zip code: [address] Is zip code within program service area: Y Patient meets program referral criteria: No Patient does not qualify for High Risk TCM Home Visit program due to: Readmission Risk Score does not meet criteria Disposition: Patient does not qualify for HRTIC, will provide TCM outreach follow-up for 30-days Patient Source: In-Network Discharge Initial outreach: TCM discharge report Outreach Summary: Patient reports he is feeling much better since he is home. He was admitted for a procedure related to his Hydropneumothorax. Patient was sent home with a chest rube and Atrium device in place, he verbalized he is comfortable with care of the site and draining the Atrium as ordered. Patient has a Niece whoo is nearby and comes frequently to check on him and assist as needed. All medication are filled and in the home as prescribed. No acute or worsening symptoms, nor further questions at this time. Patient discharged from [facility] Discharge date: 06/23/24 Admitted for: Hydropneumothorax Readmission Risk: 9 Value-Based Contract: Russ HARKINS Contact: Contact made with patient: Yes Hi, my name is Flo Chester RN and I am calling from the [facility] on behalf of your Primary Care Provider, Praful Su MD. I understand you were recently in the hospital, so I am calling to check in with you to ensure you are feeling well now that you are home. May I ask you a few questions related to your hospital stay and well-being? Yes Spoke to: Patient Validation: Validated the person spoken to is actively involved in the patient's care. The patient was identified by Name and Date of . Symptoms: Are you feeling about the same, better or worse since leaving the hospital? Better Medications: Do you have any questions about taking your medications, including which medications you should be on, or do you need refills on your medications? No Medication Review: Partial mediation review completed, per patient preference Discharge Instructions: Your Discharge Instructions / After Visit Summary (AVS) are important in guiding you through the recovery process. Do you have any questions related to your discharge instructions? No Home Care: Were you discharged with home care? No Equipment: Do you have all the necessary equipment and supplies needed at your home? Not applicable Social: Your mental health is as important to us as your physical health. Would you mind answering a few questions on this topic? Yes On the Storyboard review: Food Insecurity, Transportation, Depression, Housing, and Financial Strain: Complete any SDOHs, listed above, if not addressed in the past 3 months. If all SDOHs, listed above, have been addressed within the last 3 months, confirm responses and update any SDOHs that have changed. Action Taken: No needs verbalized. No action required. Follow-Up Appointment: [Appointment / TCM Follow-up within 14 days] I would like to help you schedule a hospital follow-up virtual or telephone visit with your PCP. This is a great way for you to connect with your provider to ensure you have safely transitioned home. If you are agreeable, I will send your request to a oil truck driver who will contact and assist you with that appointment. This will give you an opportunity to ask any questions or address any concerns you may have with your PCP. Inform the patient that if they have any questions or concerns prior to that appointment, to call their PCP's office right away. Appointment Action: Patient desires an appointment. Complete Navigation Team box and route to appropriate pool for scheduling. Education details: Patient and family educated on issues/questions related to reason for admission, transition of care topics, and follow-up needed upon discharge. Utilization Education - Where to go for Care Where to Go for Care Flo Chester RN June 24, 2024 4:35 PM Thad Chaves MA 06/24/2024 5:00 PM Signed POPULATION HEALTH NAVIGATION OUTREACH Action/FYI June 24, 2024 4:51 PM CM Pool Message ~ TCM Navigation Team Update / Actionable Items Readmission risk is LOW =9 Please schedule PCP Hospital Follow Up within 30 days Patient discharged from [facility] Discharge date: 06/23/24 Admitted for: Hydropneumothorax Readmission Risk: 9 Value-Based Contract: Russ HARKINS No Health Maintenance Due: ~Patient is scheduled on October 24, 2024 with Praful Su MD for follow up Outcome: Spoke with patient in regards to scheduling his hospital follow up. He states he is doing fine and does not feel the need to come in for this appointment. Discussed scheduling this for a few weeks out. Patient declined. States he has a lot going on right now. He will contact Dr Lugo if he has any concerns or questions. Thank you Reason for Outreach Community Monitoring/Network Navigator Pools AND Phone Line: CM Pool Care Gaps due: Follow-up Appointment Patient Contacted: Spoke to patient/parent/or legal guardian Patient identified by name and : Yes Community Monitoring/Network Navigator Pools AND Phone Line actions taken: Patient declined: Doesn't feel it's necessary Navigation Signature: Thad Chaves MA June 24, 2024 4:51 PM Allergies As of Date: 06/24/2024 (No Known Allergies) Date Reviewed: 06/23/2024 Reviewed by: Pastora Pierre APRN.PROGRAM SUPPORT ASSISTANT - Fully Assessed Prescriptions as of 06/24/2024 - oxyCODONE IR (ROXICODONE) 5 mg immediate release tablet Take 1 tablet by mouth every 6 hours as needed for pain for up to 7 days. - fluticasone-salmeterol (WIXELA INHUB) 250-50 mcg/dose inhaler Inhale 1 puff as instructed two times a day. - albuterol HFA (PROVENTIL HFA, VENTOLIN HFA) 90 mcg/actuation inhaler Inhale 2 puffs as instructed every 4 hours as needed. - acetaminophen (TYLENOL) 325 mg tablet Take 2 tablets by mouth every 4 hours as needed for pain. - gabapentin (NEURONTIN) 300 mg capsule TAKE 2 CAPSULES BY MOUTH 3 TIMES A DAY - lisinopril-hydroCHLOROthiazide (ZESTORETIC) 20-12.5 mg per tablet (Mar Hold) Take 1 tablet by mouth once daily. Patient should start on December 19, 2023. - atorvastatin (LIPITOR) 20 mg tablet Take 1 tablet by mouth once daily. 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] 04/24/2023 Prostate cancer (HCC) [C61] 09/11/2023 Paroxysmal atrial fibrillation (HCC) [I48.0] 09/11/2023 Cancer of lower lobe of right lung (HCC) [C34.3*11/15/2023 Postoperative pain [G89.18] 11/16/2023 Stage 1 mild COPD by GOLD classification (HCC) *11/17/2023 Abscess of lower lobe of right lung without pne*11/17/2023 Pleural effusion, left [J90] 11/17/2023 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 Service: Pharmacy Author Type: Blood Bank Worker Type: Plan of Care Filed: 06/23/2024 14:55 Note Text: PHARMACY BEDSIDE DELIVERY SERVICE Patient Name: Stevie Angeles The marked outpatient medications were Filled at: [facility] and delivered to the patient's bedside to patient Medication List PAUSE taking these medications lisinopril-hydroCHLOROthiazide 20-12.5 mg per tablet Wait to take this until: June 28, 2024 Commonly known as: ZESTORETIC Take 1 tablet by mouth once daily. Patient should start on December 19, 2023. Pause START taking these medications oxyCODONE IR 5 mg immediate release tablet Commonly known as: ROXICODONE Take 1 tablet by mouth every 6 hours as needed for pain for up to 7 days. Delivered CONTINUE taking these medications acetaminophen 325 mg tablet Commonly known as: TYLENOL Take 2 tablets by mouth every 4 hours as needed for pain. albuterol HFA 90 mcg/actuation inhaler Commonly known as: PROVENTIL HFA, VENTOLIN HFA Inhale 2 puffs as instructed every 4 hours as needed. atorvastatin 20 mg tablet Commonly known as: LIPITOR Take 1 tablet by mouth once daily. fluticasone-salmeterol 250-50 mcg/dose inhaler Commonly known as: WIXELA INHUB Inhale 1 puff as instructed two times a day. gabapentin 300 mg capsule Commonly known as: NEURONTIN TAKE 2 CAPSULES BY MOUTH 3 TIMES A DAY You might also be taking other medications not listed above. If you have questions about any of your other medications, talk to the person who prescribed them or your Primary Care Provider. STOP taking these medications mupirocin 2 % ointment Commonly known as: BACTROBAN Lul Wagner June 23, 2024 11:22 AM CASE MANAGEM Observed: 06/23/2024 10:50 AM Status: COMPLETED Source: [facility] HNO ID: [id number] Author: ZAINA ANDREWS RN Service: Care Management Author Type: Registered Nurse Type: Care Mgt Progress Note Filed: 06/23/2024 10:53 Note Text: CARE MANAGEMENT PROGRESS NOTE SERVICE DATE: 06/23/2024 SERVICE TIME: 10:50 AM LOS: 4 days Needs Prior to Discharge: Ready for Discharge Per chart review: S/P Flexible bronchoscopy, right video assisted thoracoscopy, robotic assisted repair of RLL bronchial stump bronchopleural fistula, pleural flap, intercostal nerve block, right phrenic nerve block on 06/19/2024. Patient on RA. 6-click score=23. Patient will discharge with CT to [employer] [facility], patient declining HHC arrangement. Family to provide transportation home upon discharge. SIGNATURE: Kartik Andrews RN PATIENT NAME: Stevie Angeles DATE: June 23, 2024 TIME: 10:50 AM CNDS Observed: 06/23/2024 10:02 AM Status: COMPLETED Source: [facility] HNO ID: [id number] Author: PAULA ESCOBAR MD, PhD Service: Thoracic Surgery Author Type: Nurse Practitioner Type: Discharge Summary Filed: 07/03/2024 13:21 Note Text: Attestation signed by Paula Escobar MD, PhD at 07/03/2024 1:21 PM Fairly smooth course for redo surgery Department of Thoracic Surgery Discharge Summary (Template ID [id number]) PATIENT NAME: Stevie Angeles ADMISSION DATE: 06/19/2024 DISCHARGE DATE: 06/23/2024 Attending Physician: Paula Escobar MD, PhD Code Status: Prior Primary Service: Surgery, Hvi Thoracic Admission Diagnosis: Enlarging air space right chest, rule out pneumatocele/rule out bronchopleural fistula, rule out alveolar pleural fistula. Discharge Diagnosis: Enlarging air space right chest, rule out pneumatocele/rule out bronchopleural fistula, rule out alveolar pleural fistula. Reason for Hospitalization: The patient is a 73-year-old man, who some 7 or 8 months ago, underwent complex resection of a locally advanced non-small cell lung cancer of the right lower lobe. The patient then underwent SBRT treatment of a right upper lobe lesion. After his treatment with SBRT, the patient began developing any gradually enlarging pneumatocele at the base of his right lung. This was first noted approximately 3 weeks after his treatment. This is continued to enlarge and now presents with significant compression of remaining right upper and right middle lobe. The patient is without obvious infection and actually feels quite well other than some mild worsening shortness of breath. The patient is brought to the operating room for intraoperative examination as well as planned therapeutic intervention. Operations during Hospitalization: DATE: 06/19/2024 OPERATION: Right robotic assisted lysis of adhesions, repair of broncho/alveolar fistula, and intercostal nerve block Hospital Course: * How was the Reason for Hospitalization Addressed: Taken to OR and underwent surgery as planned. No OR complications. No afib noted with prophylactic beta cecilio stopped for low blood pressures. Mechanical and pharmacologic DVT prophylaxis instituted without sign of acute DVT. Serial CXR showed good inflation of lungs without lung collapse and once chest tube removed removed prior to discharge. Remaining chest tube left in place for small air leak. Chest tube placed to a mini atrium to allow the lung heal. Patient was medically and surgically cleared for discharge on 06/23/2024. Patient tolerating a diet, pain controlled on oral analgesics, and ambulating. Patient amendable to discharge home with chest tube. Patient declined [facility] at time of discharge. * What were the Active Issues: Overall, Patient demonstrated appropriate postoperative clinical progression. The active issues that impacted the patient's hospital course are as follows. 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 Discharged home with chest tube for small air leak. COPD, mild. Home med: Fluticasone-salmeterol inhaler daily. Weaned to room air HTN Home med: Lisinopril/HCTZ 20/12.5 mg every day and Norvasc 5 mg daily. Home meds held for controlled blood pressures. Patient to follow up with PCP regarding when to resume medications. Spinal Stenosis Home med: Neurontin 600 mg TID, Pain controlled and up independently. Continued home medication AAA stable 4.67cm asymptomatic infrarenal aortic aneurysm by ultrasound (06/18/24). Surveillance aorta ultrasound 6 months w/ vascular surg. BP controlled and home meds resumed(ASA, statin) Hyperlipidemia Home medication Lipitor 20 mg daily. Last set of lipids revealed (05/02/23): Total Chol 146: HDL 38: LDL 79: TG 145. Resume home medication. Prostate cancer [id number] adenocaarcinoma prostate s/p TRUS random biopsy 09/24/20, s/p Lupron 45 mg IM injection 11/05/20 then external beam radiation therapy completed 01/15/21 (70 Gy/28fx). ADRIANA. Follow up w/ urology as an outpatient * Hospital Course Complicated by: Persistent post op air leak in chest tube. * Extended Hospital Stay Due to: Persistent post op air leak in chest tube * Specific Medication Changes: Home blood pressure meds held for controlled BP * Surgical Pathology/Microbiology: N/A * Pain: Pain controlled on tylenol and oxycodone as needed * Surgical Incisions/ Wounds: Right thoracoport incisional sites well approximated, no erythema, swelling, warmth, or drainage noted * Tubes/Lines/Drains on Discharge: Right 24 Fr chest tube to mini atrium left in place for tiny air leak * Patient Condition at Discharge: Stable * Disposition: Home with Self Care Problem List: Patient Active Hospital Problem List: Bronchopleural fistula (HCC) Date Noted: 11/17/2023 Stage 1 mild COPD by GOLD classification (HCC) Date Noted: 11/17/2023 Primary hypertension Date Noted: 06/23/2010 Spinal stenosis of lumbar region with neurogenic claudication Date Noted: 06/01/2015 Infrarenal abdominal aortic aneurysm (AAA) without rupture Date Noted: 02/08/2021 Postoperative pain Date Noted: 11/16/2023 Consults: None Procedures/Radiology: None Information Provided to the Patient: Patient given copy of After Visit Summary which included activity instructions, diet instructions, wound care instructions, medication instructions and follow up appointment. ALLERGIES No Known Allergies Discharge Medications: Medication List PAUSE taking these medications lisinopril-hydroCHLOROthiazide 20-12.5 mg per tablet Wait to take this until: June 28, 2024 Commonly known as: ZESTORETIC Take 1 tablet by mouth once daily. Patient should start on December 19, 2023. START taking these medications oxyCODONE IR 5 mg immediate release tablet Commonly known as: ROXICODONE Take 1 tablet by mouth every 6 hours as needed for pain for up to 7 days. CONTINUE taking these medications acetaminophen 325 mg tablet Commonly known as: TYLENOL Take 2 tablets by mouth every 4 hours as needed for pain. albuterol HFA 90 mcg/actuation inhaler Commonly known as: PROVENTIL HFA, VENTOLIN HFA Inhale 2 puffs as instructed every 4 hours as needed. atorvastatin 20 mg tablet Commonly known as: LIPITOR Take 1 tablet by mouth once daily. fluticasone-salmeterol 250-50 mcg/dose inhaler Commonly known as: WIXELA INHUB Inhale 1 puff as instructed two times a day. gabapentin 300 mg capsule Commonly known as: NEURONTIN TAKE 2 CAPSULES BY MOUTH 3 TIMES A DAY STOP taking these medications mupirocin 2 % ointment Commonly known as: BACTROBAN Where to Get Your Medications These medications were sent to [facility] [address] [place] [address] Hours: Monday-Monday 7am-8pm, Monday, Monday and Holidays 9am-5pm oxyCODONE IR 5 mg immediate release tablet Transitions of Care Critical Issues: Outpatient Management: * Are there important medication changes and/or outstanding issues that need to be addressed: 1. Home blood pressure meds held, patient to follow up with PCP regarding when to resume and BP management 2. Discharged home with chest tube to mini atrium for persistent post op air leak. Chest tube to be removed as an outpatient * What is the plan for follow up: Follow up with PROGRAM SUPPORT ASSISTANT in thoracic clinic for chest tube removal and CXR 06/28/24 Future Appointments: Future Appointments Date Time Provider Department Center 10/24/2024 2:20 PM Praful Su MD [facility] 12/24/2024 11:00 AM NABEEL RESIDENT PHYSICIAN IN RADIOLOGY [facility] 12/24/2024 11:30 AM Malia Egan DO [facility] 01/16/2025 2:30 PM Don Lara MD [facility] Highest Readmission Risk Score: 8 The 30 day readmissions risk score is derived from an internally validated risk model which evaluates patient level characteristics, utilization history, medication orders and lab results up until the day of discharge. Patients with a score of 39 or above are considered highest risk for readmission. Specific patient level drivers will be listed at the bottom of the summary. The patient's risk for 30-day readmission is determined using the following contributing factors: Predictive Model Details 8% (Low) Factor Value Calculated 06/22/2024 05:19 -132% Hospital Unit [facility]IN J052 [facility] READMISSION RISK Model 17% Admissions (365d) 3 15% Appointments (365d) 12 13% Admissions (60d) 2 11% Admissions (90d) 2 -6% Observations (365d) 0 -5% Albumin (Avg) N/A -4% ED Encounter No -4% Admission Provider Speciality THORACIC SURGERY -4% Length of Stay (d) 3 Electronically SIGNED by Licensed Independent Practitioner: Pastora Pierre APRN.CNP Stevie Angeles has undergone a major thoracic surgical operation with pain medication requirements necessarily exceeding the 30 MED limit established by the [facility] (#4723-9-1). This need was discussed and approved by Dr. Escobar. The patient is being prescribed for a maximum of 7 days with no refills and has been provided with weaning instructions emphasizing the use of non-narcotic alternatives that are medically tolerable. The patient will be re-evaluated at follow up in 5 days from discharge to reassess his pain management and clinical status. PROGRESS Observed: 06/23/2024 9:58 AM Status: COMPLETED Source: [facility] HNO ID: [id number] Author: PASTORA PIERRE APRN.CNP Service: Thoracic Surgery Author Type: Nurse Practitioner Type: Progress Notes Filed: 06/23/2024 10:00 Note Text: [facility] THOR[facility] POST-OP PROGRESS NOTE Stevie Angeles [id number] PRIMARY SERVICE: Thoracic Surgery - Paula Escobar M.D. DATE OF ADMISSION: 06/19/2024 DIAGNOSIS: Enlarging air space right chest, rule out pneumatocele/rule out bronchopleural fistula, rule out alveolar pleural fistula DATE: 06/19/2024 SURGERY: Right robotic assisted lysis of adhesions, repair of broncho/alveolar fistula, and intercostal nerve block. INTERVAL EVENTS / PERTINENT ROS: Patient with chest tube to mini atrium patient with small right pneumothorax. Ambulating in the halls with adequate oxygenation on room air. Denies any shortness of breath or chest pain/pressure. Patient agreeable to discharge home with chest tube. Denied need for HHC. PERTINENT LABS: Hemoglobin (g/dL) Date Value 06/23/2024 13.6 04/28/2015 16.1 Hematocrit (%) Date Value 06/23/2024 40.6 04/28/2015 47.0 WBC (k/uL) Date Value 06/23/2024 5.93 04/28/2015 8.93 Glucose (mg/dL) Date Value 06/23/2024 97 02/08/2021 138 Potassium (mmol/L) Date Value 06/23/2024 3.7 02/08/2021 4.1 Sodium (mmol/L) Date Value 06/23/2024 142 02/08/2021 136 Chloride (mmol/L) Date Value 06/23/2024 105 02/08/2021 98 CO2 (mmol/L) Date Value 06/23/2024 25 02/08/2021 27 Creatinine (mg/dL) Date Value 06/23/2024 0.59 02/08/2021 0.78 BUN (mg/dL) Date Value 06/23/2024 10 02/08/2021 11 Anion Gap (mmol/L) Date Value 06/23/2024 12 02/08/2021 11 Calcium (mg/dL) Date Value 02/08/2021 10.2 Calcium, Total (mg/dL) Date Value 06/23/2024 9.5 CXR: Small stable right pneumothorax TELEMETRY: SR Intake/Output Summary (Last 24 hours) at 06/23/2024 1000 Last data filed at 06/23/2024 0919 Gross per 24 hour Intake 780 ml Output 740 ml Net 40 ml PHYSICAL EXAM: Blood pressure 117/68, pulse 73, temperature 36.9 ?C (98.5 ?F), temperature source Oral, resp. rate 18, height 177.8 cm (5' 10), weight 79.3 kg (174 lb 13.2 oz), SpO2 97%. Room air Constitutional: No acute distress HEENT: Fair dentition Resp: Clear and Respiratory effort: normal Cardiovascular: Regular rate AND rhythm GI: Soft and Non-tender Integumentary: Warm and Dry Musculoskeletal: No deformities Neurological/Psychiatric: Oriented to time, place AND person , Alert, and No gross focal neurologic deficits Additional systems reviewed: No additional systems reviewed Incisions: -Right thoracoport incisional sites -with surgical glue, well approximated, no erythema, swelling, warmth, or drainage noted Tubes/Lines/Drains: -Right 24 Fr chest tube to mini atrium drained 135 cc of serous fluid yesterday HISTORY, ASSESSMENT AND PLAN: Reason for admission Bronchopleural fistula Important/Relevant PMH/PSH: Ex smoker (40 pack year, quit 2021), AAA, COPD, HTN, HLD, adenocarcinoma prostate, 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 Transbronchial biopsy confirmed squamous cell lung cancer in right lower lobe lesion and he underwent robotic assisted right lower lobectomy, right lower lobe bronchoplasty 11/15/23. He then underwent SBRT to RUL lesion on 02/01/24. Surveillance CT chest 05/08/24 showed no compelling evidence for disease recurrence but did show a new right basilar bullae/pneumatocele. He now presents for resection. Airway Difficulty: Grade 1 - Not difficult Pacing Wires: No Chronological List of Surgeries and Major Events (Diagnosis): (Surgeries in bold characters) 06/19/2024 SURGERY: Flexible bronchoscopy, right video assisted thoracoscopy, robotic assisted repair of RLL bronchial stump bronchopleural fistula, pleural flap, intercostal nerve block, right phrenic nerve block. OR findings: Preop bronchoscopy with intact appearing right lower lobe bronchial stump. Dense adhesions upon entry to right chest. There was a large air filled space with a thickened surrounding pleural rind compatible with radiation induced changes. This space appeared to be in communication with pinpoint defect in RLL bronchialstump. This was reinforced with multiple prolene sutures, imbricating the pleura over the stump. A pleural flap was then mobilized and tacked in place over the area of reinforcement. A/P of Major Active Problems (excluding routine care and common problems): Bronchopleural fistula now s/p robotic repair RLL BPF w/ pleural flap on 06/19/24 -24 moroccan chest tube to water seal -DVT ppx -Diet -Afib prophylaxis: stopped for SB -GI stress ulcer prophylaxis: PPI Squamous cell lung carcinoma, 2 synchronous primary lesions (RLL and RUL) vs cT4N0 now s/p VATS RLL lobectomy and LND 11/15/23. 05/08/24 CT large new cystic space in the resected bed. Multiloculated pneumothorax vs large bulla. COPD, mild. Home med: Fluticasone-salmeterol inhaler daily. Weaned to room air -Continue home medications -Continue scheduled nebulizers and mucolytics HTN Home med: Lisinopril/HCTZ 20/12.5 mg every day and Norvasc 5 mg daily. Controlled with home meds held -Continue -Hold home meds Spinal Stenosis Home med: Neurontin 600 mg TID, Pain controlled and up independently -Continue home medication AAA stable 4.67cm asymptomatic infrarenal aortic aneurysm by ultrasound (06/18/24) -surveillance aorta ultrasound 6 months w/ vascular surg -BP control, ASA, statin Hyperlipidemia Home medication Lipitor 20 mg daily. Last set of lipids revealed (05/02/23): Total Chol 146: HDL 38: LDL 79: TG 145. -Resume home medication. Prostate cancer [id number] adenocaarcinoma prostate s/p TRUS random biopsy 09/24/20, s/p Lupron 45 mg IM injection 11/05/20 then external beam radiation therapy completed 01/15/21 (70 Gy/28fx). ADRIANA -Follow up w/ urology as an outpatient Discharge planning. Single lives in [place], [place]. Functionally independent at home. No skilled needs for home anticipated -Ongoing collaboration w/ case mgmt, patient To Do or to Watch: Continue chest tube and place to mini atrium Discharge home today with chest tube to mini atrium Follow up in 5 days for chest tube removal Discharge Planning: Anticipated Discharge Date: 06/23/24 Barriers to Discharge: pain, chest tube Care Management Discharge Needs: Needs Prior to Discharge: None (Offered HHC in event discharged with CT for which pt declines. he states his niece will assist as needed.) DAILY STEP DOWN CHECKLIST FOR CATHETER RELATED INFECTION PREVENTION CVC, PICC, Tati and/or Permacath present? No Does the patient have a urinary catheter beyond POD 2? No VTE Risk Assessment: High risk VTE Mechanical and/or Pharmacologic Prophylaxis: IPC Device, MILDRED hose, subcutaneous lovenox Labs and medications reviewed in [facility] SIGNATURE: Pastora Pierre APRN.[facility] PAGER: [phone] DATE of SERVICE: June 23, 2024 TIME of SERVICE: 9:58 AM XR CHEST 1V FRONTAL PORT Observed: 06/23 6:31 AM Status: F Source: [facility] * * *Final Report* * * DATE OF EXAM: Jun 23 2024 6:31AM [place] [id number] - XR CHEST 1V FRONTAL PORT / PROCEDURE REASON: Post-operative / post-procedure assessment, asymptomatic * * * * Physician Interpretation * * * * EXAMINATION: CHEST RADIOGRAPH (PORTABLE SINGLE VIEW AP) Exam Date/Time: 06/23/2024 6:31 AM Clinical History: Post-operative / post-procedure assessment, asymptomatic, Post-operative/post-procedure assessment MQ: [id number] Comparison: 1 day prior RESULT: Lines, tubes, and devices: Right chest remains in place. Lungs and pleura: Decrease in size of loculated small right hydropneumothorax. Mild increase of basilar atelectasis. Increase of trace left pleural effusion. Mild improvement of left hemidiaphragm elevation. Cardiomediastinal silhouette: Stable cardiomediastinal silhouette. Other: . IMPRESSION: See result. Agency Trainer: [facility] Transcribe Date/Time: Jun 23 2024 1:43P Dictated by : GILMA RAMSEY MD This examination was interpreted and the report reviewed and electronically signed by: GILMA RAMSEY MD on Jun 23 2024 1:44PM EST [id number] CBC PNL BLD AUTO Collected: 4:06 AM Status: F Source: [facility] Order Comment: Specimen Type : BLOOD SPECIMEN Ordering Facility: [facility] Address: [address] [place] [address] TYPE CODE TESTS RESULT OUT OF RANGE REFERENCE UNITS LAB 6690-2(LOINC) WBC # Bld Auto 5.93 3.70-11.00 k/uL LAB 789-8(LOINC) RBC # Bld Auto 4.18 Low 4.20-6.00 m/uL LAB 718-7(LOINC) Hgb Bld-mCnc 13.6 13.0-17.0 g/dL LAB 4544-3(LOINC) Hct VFr Bld Auto 40.6 39.0-51.0 % LAB 787-2(LOINC) MCV RBC Auto 97.1 80.0-100.0 fL LAB 785-6(LOINC) MCH RBC Qn Auto 32.5 26.0-34.0 pg LAB 786-4(LOINC) MCHC RBC Auto-mCnc 33.5 30.5-36.0 g/dL LAB 42951-6(LOINC) RDW RBC-Rto 14.4 11.5-15.0 % LAB 777-3(LOINC) Platelet # Bld Auto 224 150-400 k/uL LAB 10021-1(LOINC) PMV Bld Auto 9.4 9.0-12.7 fL LAB 771-6(LOINC) nRBC # Bld Auto <0.01 <0.01 k/uL Performed By: #### [id number] # ### [facility] CLIA [id number] [address] [place] [address] [place] METAB 2000 PNL SERPL Collected: 4:06 AM Status: F Source: [facility] Order Comment: Specimen Type : BLOOD SPECIMEN Ordering Facility: [facility] Address: [address], [place] [address] TYPE CODE TESTS RESULT OUT OF RANGE REFERENCE UNITS LAB 2345-7(LOINC) Glucose SerPl-mCnc 97 74-99 mg/dL Result Comment: The [place] [employer] (ADA) provides guidance for cutoff values for fasting glucose and random glucose. The ADA defines fasting as no caloric intake for at least 8 hours. Fasting plasma glucose results between 100 to 125 mg/dL indicate increased risk for diabetes (prediabetes). Fasting plasma glucose results greater than or equal to 126 mg/dL meet the criteria for diagnosis of diabetes. In the absence of unequivocal hyperglycemia, results should be confirmed by repeat testing. In a patient with classic symptoms of hyperglycemia or hyperglycemic crisis, random plasma glucose results greater than or equal to 200 mg/dL meet the criteria for diagnosis of diabetes. Reference: Standards of Medical Care in Diabetes 2016, [place] [employer]. Diabetes Care. 2016.39(Suppl 1). LAB 3094-0(LOINC) BUN SerPl-mCnc 10 9-24 mg/ dL LAB 2160-0(LOINC) Creat SerPl-mCnc 0.59 Low 0.73-1.22 mg/dL LAB 2951-2(LOINC) Sodium SerPl-sCnc 142 136-144 mmol/L LAB 2823-3(LOINC) Potassium SerPl-sCnc 3.7 3.7-5.1 mmol/L LAB 2075-0(LOINC) Chloride SerPl-sCnc 105 98-107 mmol/L LAB 2027-9(LOINC) CO2 SerPl-sCnc 25 22-30 mmo l/L LAB 65159-5(LOINC) Anion Gap SerPl-sCnc 12 8-15 mmol/L LAB 01175-1(LOINC) Calcium SerPl-mCnc 9.5 8.5-10.2 mg/dL LAB 88207-8(LOINC) Creatinine + eGFR Pnl SerPlBld 104 >=60 mL/min/1 .73m??? Result Comment: Estimated Gl omerular Filtration Rate (eGFR) is calculated using the 2020 CKD-EPI creatinine equation. This equation utilizes serum creatinine, sex, and age as parameters. The creatinine assay has traceable calibration to isotope dilution-mass spectrometry. Refer to KDIGO guidelines for clinical interpretation. In patients with unstable renal function, e.g. those with acute kidney injury, the eGFR may not accurately reflect actual GFR. Performed By: #### [id number] # ### [facility] CLIA [id number] [address] [place] [address] [place] XR CHEST 2V FRONTAL/LAT Observed: 2024 1:41 PM Status: F Source: [facility] * * *Final Report* * * DATE OF EXAM: Jun 22 2024 1:41PM [facility] 5291 - XR CHEST 2V FRONTAL/LAT / PROCEDURE REASON: Other * * * * Physician Interpretation * * * * EXAMINATION: CHEST RADIOGRAPH (2 VIEW FRONTAL and LATERAL) CLINICAL HISTORY: Other MQ: [id number] EXAM DATE/TIME: 06/22/2024 1:41 PM COMPARISON: Same day RESULT: Lines, tubes, and devices: There has been removal of one of the 2 right chest tubes. Lungs and pleura: Small right pneumothorax has developed/increased in size on the current exam with largest component in the medial lower right hemithorax/cardiophrenic angle. Small right pleural effusion versus pleural thickening is unchanged. Decrease in size of trace left pleural effusion. Increase of basilar atelectasis bilaterally. There has been increase of left hemidiaphragm elevation. Cardiomediastinal silhouette: Unchanged. Bones and soft tissues: Unremarkable. IMPRESSION: See result Agency Trainer: IMMANUEL Transcribe Date/Time: Jun 22 2024 3:00P Dictated by : GILMA RAMSEY MD This examination was interpreted and the report reviewed and electronically signed by: GILMA RAMSEY MD on Jun 22 2024 3:03PM EST [id number] PROGRESS Observed: 06/22/2024 11:31 AM Status: COMPLETED Source: [facility] HNO ID: [id number] Author: PASTORA PIERRE APRN.PROGRAM SUPPORT ASSISTANT Service: Thoracic Surgery Author Type: Nurse Practitioner Type: Progress Notes Filed: 06/22/2024 11:31 Note Text: [facility] POST-OP PROGRESS NOTE Stevie Angeles [id number] PRIMARY SERVICE: Thoracic Surgery - Paula Escobar M.D. DATE OF ADMISSION: 06/19/2024 DIAGNOSIS: Enlarging air space right chest, rule out pneumatocele/rule out bronchopleural fistula, rule out alveolar pleural fistula DATE: 06/19/2024 SURGERY: Right robotic assisted lysis of adhesions, repair of broncho/alveolar fistula, and intercostal nerve block. INTERVAL EVENTS / PERTINENT ROS: Patient up and ambulating in the jiménez independently yesterday. Weaned to room air. Pain well controlled. Right chest tube no noted air leak drained 30 cc of sero sang fluid, Thoracic resident removed (straight chest tube) and placed remaining chest tube with tiny air leak to mini atrium. CXR ordered. PERTINENT LABS: Hemoglobin (g/dL) Date Value 06/22/2024 12.7 04/28/2015 16.1 Hematocrit (%) Date Value 06/22/2024 38.0 04/28/2015 47.0 WBC (k/uL) Date Value 06/22/2024 5.90 04/28/2015 8.93 Glucose (mg/dL) Date Value 06/22/2024 86 02/08/2021 138 Potassium (mmol/L) Date Value 06/22/2024 3.8 02/08/2021 4.1 Sodium (mmol/L) Date Value 06/22/2024 141 02/08/2021 136 Chloride (mmol/L) Date Value 06/22/2024 105 02/08/2021 98 CO2 (mmol/L) Date Value 06/22/2024 21 02/08/2021 27 Creatinine (mg/dL) Date Value 06/22/2024 0.51 02/08/2021 0.78 BUN (mg/dL) Date Value 06/22/2024 10 02/08/2021 11 Anion Gap (mmol/L) Date Value 06/22/2024 15 02/08/2021 11 Calcium (mg/dL) Date Value 02/08/2021 10.2 Calcium, Total (mg/dL) Date Value 06/22/2024 9.0 CXR: No pneumothorax TELEMETRY: SR Intake/Output Summary (Last 24 hours) at 06/22/2024 1131 Last data filed at 06/22/2024 1042 Gross per 24 hour Intake 1530 ml Output 1065 ml Net 465 ml PHYSICAL EXAM: Blood pressure 97/54, pulse (!) 58, temperature 36.5 ?C (97.7 ?F), temperature source Oral, resp. rate 18, height 177.8 cm (5' 10), weight 78.8 kg (173 lb 11.6 oz), SpO2 98%. Room air Constitutional: No acute distress HEENT: Fair dentition Resp: Clear and Respiratory effort: normal Cardiovascular: Regular rate AND rhythm GI: Soft and Non-tender Integumentary: Warm and Dry Musculoskeletal: No deformities Neurological/Psychiatric: Oriented to time, place AND person , Alert, and No gross focal neurologic deficits Additional systems reviewed: No additional systems reviewed Incisions: -Right thoracoport incisional sites -with surgical glue, well approximated, no erythema, swelling, warmth, or drainage noted Tubes/Lines/Drains: -Right 24 Fr chest tube to mini atrium drained 95 cc of serous fluid yesterday HISTORY, ASSESSMENT AND PLAN: Reason for admission Bronchopleural fistula Important/Relevant PMH/PSH: Ex smoker (40 pack year, quit 2021), AAA, COPD, HTN, HLD, adenocarcinoma prostate, 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 Transbronchial biopsy confirmed squamous cell lung cancer in right lower lobe lesion and he underwent robotic assisted right lower lobectomy, right lower lobe bronchoplasty 11/15/23. He then underwent SBRT to RUL lesion on 02/01/24. Surveillance CT chest 05/08/24 showed no compelling evidence for disease recurrence but did show a new right basilar bullae/pneumatocele. He now presents for resection. Airway Difficulty: Grade 1 - Not difficult Pacing Wires: No Chronological List of Surgeries and Major Events (Diagnosis): (Surgeries in bold characters) 06/19/2024 SURGERY: Flexible bronchoscopy, right video assisted thoracoscopy, robotic assisted repair of RLL bronchial stump bronchopleural fistula, pleural flap, intercostal nerve block, right phrenic nerve block. OR findings: Preop bronchoscopy with intact appearing right lower lobe bronchial stump. Dense adhesions upon entry to right chest. There was a large air filled space with a thickened surrounding pleural rind compatible with radiation induced changes. This space appeared to be in communication with pinpoint defect in RLL bronchialstump. This was reinforced with multiple prolene sutures, imbricating the pleura over the stump. A pleural flap was then mobilized and tacked in place over the area of reinforcement. A/P of Major Active Problems (excluding routine care and common problems): Bronchopleural fistula now s/p robotic repair RLL BPF w/ pleural flap on 06/19/24 -24 moroccan chest tube to water seal -DVT ppx Squamous cell lung carcinoma, 2 synchronous primary lesions (RLL and RUL) vs cT4N0 now s/p VATS RLL lobectomy and LND 11/15/23. 05/08/24 CT large new cystic space in the resected bed. Multiloculated pneumothorax vs large bulla. COPD, mild. Home med: Fluticasone-salmeterol inhaler daily. Weaned to room air -Continue home medications -Continue scheduled nebulizers and mucolytics HTN Home med: Lisinopril/HCTZ 20/12.5 mg every day and Norvasc 5 mg daily. Controlled on metoprolol 25 mg PO BID for afib ppx -Continue -Hold home meds Spinal Stenosis Home med: Neurontin 600 mg TID, Pain controlled and up independently -Continue home medication AAA stable 4.67cm asymptomatic infrarenal aortic aneurysm by ultrasound (06/18/24) -surveillance aorta ultrasound 6 months w/ vascular surg -BP control, ASA, statin Hyperlipidemia Home medication Lipitor 20 mg daily. Last set of lipids revealed (05/02/23): Total Chol 146: HDL 38: LDL 79: TG 145. -Resume home medication. Prostate cancer [id number] adenocaarcinoma prostate s/p TRUS random biopsy 09/24/20, s/p Lupron 45 mg IM injection 11/05/20 then external beam radiation therapy completed 01/15/21 (70 Gy/28fx). ADRIANA -Follow up w/ urology as an outpatient Discharge planning. Single lives in [place], [place]. Functionally independent at home. No skilled needs for home anticipated -Ongoing collaboration w/ case mgmt, patient To Do or to Watch: Remove straight chest tube today (posterior on skin) Continue remaining chest tube Ambulate in jiménez 3-4 times per day Discharge Planning: Anticipated Discharge Date: 06/22/24 Barriers to Discharge: pain, chest tube Care Management Discharge Needs: Needs Prior to Discharge: None (Offered HHC in event discharged with CT for which pt declines. he states his niece will assist as needed.) DAILY STEP DOWN CHECKLIST FOR CATHETER RELATED INFECTION PREVENTION CVC, PICC, Tati and/or Permacath present? No Does the patient have a urinary catheter beyond POD 2? No VTE Risk Assessment: High risk VTE Mechanical and/or Pharmacologic Prophylaxis: IPC Device, MILDRED hose, subcutaneous lovenox Labs and medications reviewed in [facility] SIGNATURE: Pastora Pierre APRN.[facility] PAGER: [phone] DATE of SERVICE: June 22, 2024 TIME of SERVICE: 11:31 AM XR CHEST 1V FRONTAL PORT Observed: 06/22 6:40 AM Status: F Source: [facility] * * *Final Report* * * DATE OF EXAM: Jun 22 2024 6:40AM [place] [facility] - XR CHEST 1V FRONTAL PORT / PROCEDURE REASON: Post-operative / post-procedure assessment, asymptomatic * * * * Physician Interpretation * * * * EXAMINATION: CHEST RADIOGRAPH (PORTABLE SINGLE VIEW AP) Exam Date/Time: 06/22/2024 6:40 AM Clinical History: Post-operative / post-procedure assessment, asymptomatic, Post-operative/post-procedure assessment MQ: [id number]_6 Comparison: 1 day prior RESULT: Lines, tubes, and devices: Stable 2 right chest tubes. Lungs and pleura: No significant interval change. No definite pneumothorax. Cardiomediastinal silhouette: Stable cardiomediastinal silhouette. Other: . IMPRESSION: See result. Agency Trainer: IMMANUEL Transcribe Date/Time: Jun 22 2024 10:53A Dictated by : ANA CRISTINA MAYFIELD MD This examination was interpreted and the report reviewed and electronically signed by: ANA CRISTINA MAYFIELD MD on Jun 22 2024 10:53AM EST [id number] BAS METAB 2000 PNL SERPL Collected: 6:05 AM Status: F Source: [facility] Order Comment: Specimen Type : BLOOD SPECIMEN Ordering Facility: [facility] Address: [address] [place] [address] TYPE CODE TESTS RESULT OUT OF RANGE REFERENCE UNITS LAB 2345-7(LOINC) Glucose SerPl-mCnc 86 74-99 mg/dL Result Comment: The [place] [employer] (ADA) provides guidance for cutoff values for fasting glucose and random glucose. The ADA defines fasting as no caloric intake for at least 8 hours. Fasting plasma glucose results between 100 to 125 mg/dL indicate increased risk for diabetes (prediabetes). Fasting plasma glucose results greater than or equal to 126 mg/dL meet the criteria for diagnosis of diabetes. In the absence of unequivocal hyperglycemia, results should be confirmed by repeat testing. In a patient with classic symptoms of hyperglycemia or hyperglycemic crisis, random plasma glucose results greater than or equal to 200 mg/dL meet the criteria for diagnosis of diabetes. Reference: Standards of Medical Care in Diabetes 2016, [employer]. Diabetes Care. 2016.39(Suppl 1). LAB 3094-0(LOINC) BUN SerPl-mCnc 10 9-24 mg/ dL LAB 2160-0(LOINC) Creat SerPl-mCnc 0.51 Low 0.73-1.22 mg/dL LAB 2951-2(LOINC) Sodium SerPl-sCnc 141 136-144 mmol/L LAB 2823-3(LOINC) Potassium SerPl-sCnc 3.8 3.7-5.1 mmol/L LAB 2075-0(LOINC) Chloride SerPl-sCnc 105 98-107 mmol/L LAB 2028-9(LOINC) CO2 SerPl-sCnc 21 Low 22-30 mmo l/L LAB 89137-9(LOINC) Anion Gap SerPl-sCnc 15 8-15 mmol/L LAB 85266-7(LOINC) Calcium SerPl-mCnc 9.0 8.5-10.2 mg/dL LAB 05468-6(LOINC) Creatinine + eGFR Pnl SerPlBld 108 >=60 mL/min/1 .73m??? Result Comment: Estimated Gl omerular Filtration Rate (eGFR) is calculated using the 2020 CKD-EPI creatinine equation. This equation utilizes serum creatinine, sex, and age as parameters. The creatinine assay has traceable calibration to isotope dilution-mass spectrometry. Refer to KDIGO guidelines for clinical interpretation. In patients with unstable renal function, e.g. those with acute kidney injury, the eGFR may not accurately reflect actual GFR. Performed By: #### [id number] # ### [facility] CLIA [id number] [address] [place] [address] STATES OF [facility] CBC PNL BLD AUTO Collected: 5 6:05 AM Status: F Source: [facility] Order Comment: Specimen Type : BLOOD SPECIMEN Ordering Facility: [facility] Address: [address] [place] [address] TYPE CODE TESTS RESULT OUT OF RANGE REFERENCE UNITS LAB 6690-2(LOINC) WBC # Bld Auto 5.90 3.70-11.00 k/uL LAB 789-8(LOINC) RBC # Bld Auto 3.89 Low 4.20-6.00 m/uL LAB 718-7(LOINC) Hgb Bld-mCnc 12.7 Low 13.0-17.0 g/dL LAB 4544-3(LOINC) Hct VFr Bld Auto 38.0 Low 39.0-51.0 % LAB 787-2(LOINC) MCV RBC Auto 97.7 80.0-100.0 fL LAB 785-6(LOINC) MCH RBC Qn Auto 32.6 26.0-34.0 pg LAB 786-4(LOINC) MCHC RBC Auto-mCnc 33.4 30.5-36.0 g/dL LAB 46834-0(LOINC) RDW RBC-Rto 14.6 11.5-15.0 % LAB 777-3(LOINC) Platelet # Bld Auto 178 150-400 k/uL LAB 14473-6(LOINC) PMV Bld Auto 9.4 9.0-12.7 fL LAB 771-6(LOINC) nRBC # Bld Auto <0.01 <0.01 k/uL Performed By: #### [id number] # ### [facility] CLIA [id number] [address] [place] [address] [place] PROGRESS Observed: 06/21/2024 12:37 PM Status: COMPLETED Source: [facility] HNO ID: [id number] Author: PAULA ESCOBAR MD, PhD Service: Thoracic Surgery Author Type: Physician Type: Progress Notes Filed: 06/21/2024 18:27 Note Text: [facility] POST-OP PROGRESS NOTE Stevie Angeles [id number] PRIMARY SERVICE: Thoracic Surgery - Paula Escobar M.D. DATE OF ADMISSION: 06/19/2024 DIAGNOSIS: Enlarging air space right chest, rule out pneumatocele/rule out bronchopleural fistula, rule out alveolar pleural fistula DATE: 06/19/2024 SURGERY: Right robotic assisted lysis of adhesions, repair of broncho/alveolar fistula, and intercostal nerve block. INTERVAL EVENTS / PERTINENT ROS: No acute events overnight. Small persistent air leak in both chest tube today. Denies any shortness of breath, chest pain/pressure. Patient up and ambulating in the jiménez independently. PERTINENT LABS: Hemoglobin (g/dL) Date Value 06/21/2024 13.6 04/28/2015 16.1 Hematocrit (%) Date Value 06/21/2024 40.7 04/28/2015 47.0 WBC (k/uL) Date Value 06/21/2024 9.46 04/28/2015 8.93 Glucose (mg/dL) Date Value 06/21/2024 98 02/08/2021 138 Potassium (mmol/L) Date Value 06/21/2024 4.0 02/08/2021 4.1 Sodium (mmol/L) Date Value 06/21/2024 137 02/08/2021 136 Chloride (mmol/L) Date Value 06/21/2024 102 02/08/2021 98 CO2 (mmol/L) Date Value 06/21/2024 25 02/08/2021 27 Creatinine (mg/dL) Date Value 06/21/2024 0.55 02/08/2021 0.78 BUN (mg/dL) Date Value 06/21/2024 11 02/08/2021 11 Anion Gap (mmol/L) Date Value 06/21/2024 10 02/08/2021 11 Calcium (mg/dL) Date Value 02/08/2021 10.2 Calcium, Total (mg/dL) Date Value 06/21/2024 9.4 CXR: Small stable bilateral pleural effusions, no pneumothorax TELEMETRY: ST Intake/Output Summary (Last 24 hours) at 06/21/2024 1243 Last data filed at 06/21/2024 1124 Gross per 24 hour Intake 1490 ml Output 1460 ml Net 30 ml PHYSICAL EXAM: Blood pressure 125/83, pulse 94, temperature 36.5 ?C (97.7 ?F), temperature source Oral, resp. rate 18, height 177.8 cm (5' 10), weight 79.2 kg (174 lb 9.7 oz), SpO2 98%. Room air Constitutional: No acute distress HEENT: Fair dentition Resp: Clear and Respiratory effort: normal Cardiovascular: Regular rate AND rhythm GI: Soft and Non-tender Integumentary: Warm and Dry Musculoskeletal: No deformities Neurological/Psychiatric: Oriented to time, place AND person , Alert, and No gross focal neurologic deficits Additional systems reviewed: No additional systems reviewed Incisions: -Right thoracoport incisional sites -with surgical glue, well approximated, no erythema, swelling, warmth, or drainage noted Tubes/Lines/Drains: -Right 24 Fr chest tube x 2 to water seal both + small air leak drained 30 cc and 213 cc of serous fluid yesterday HISTORY, ASSESSMENT AND PLAN: Reason for admission Bronchopleural fistula Important/Relevant PMH/PSH: Ex smoker (40 pack year, quit 2021), AAA, COPD, HTN, HLD, adenocarcinoma prostate, 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 Transbronchial biopsy confirmed squamous cell lung cancer in right lower lobe lesion and he underwent robotic assisted right lower lobectomy, right lower lobe bronchoplasty 11/15/23. He then underwent SBRT to RUL lesion on 02/01/24. Surveillance CT chest 05/08/24 showed no compelling evidence for disease recurrence but did show a new right basilar bullae/pneumatocele. He now presents for resection. Airway Difficulty: Grade 1 - Not difficult Pacing Wires: No Chronological List of Surgeries and Major Events (Diagnosis): (Surgeries in bold characters) 06/19/2024 SURGERY: Flexible bronchoscopy, right video assisted thoracoscopy, robotic assisted repair of RLL bronchial stump bronchopleural fistula, pleural flap, intercostal nerve block, right phrenic nerve block. OR findings: Preop bronchoscopy with intact appearing right lower lobe bronchial stump. Dense adhesions upon entry to right chest. There was a large air filled space with a thickened surrounding pleural rind compatible with radiation induced changes. This space appeared to be in communication with pinpoint defect in RLL bronchialstump. This was reinforced with multiple prolene sutures, imbricating the pleura over the stump. A pleural flap was then mobilized and tacked in place over the area of reinforcement. A/P of Major Active Problems (excluding routine care and common problems): Bronchopleural fistula now s/p robotic repair RLL BPF w/ pleural flap on 06/19/24 -24 moroccan chest tube x 2 (posterior tube goes to base, anterior tube to apex) to water seal -DVT ppx Squamous cell lung carcinoma, 2 synchronous primary lesions (RLL and RUL) vs cT4N0 now s/p VATS RLL lobectomy and LND 11/15/23. 05/08/24 CT large new cystic space in the resected bed. Multiloculated pneumothorax vs large bulla. COPD, mild. Home med: Fluticasone-salmeterol inhaler daily. Weaned to room air -Continue home medications -Continue scheduled nebulizers and mucolytics HTN Home med: Lisinopril/HCTZ 20/12.5 mg every day and Norvasc 5 mg daily. Controlled on metoprolol 25 mg PO BID for afib ppx -Continue -Hold home meds Spinal Stenosis Home med: Neurontin 600 mg TID, Pain controlled and up independently -Continue home medication AAA stable 4.67cm asymptomatic infrarenal aortic aneurysm by ultrasound (06/18/24) -surveillance aorta ultrasound 6 months w/ vascular surg -BP control, ASA, statin Hyperlipidemia Home medication Lipitor 20 mg daily. Last set of lipids revealed (05/02/23): Total Chol 146: HDL 38: LDL 79: TG 145. -Resume home medication. Prostate cancer [id number] adenocaarcinoma prostate s/p TRUS random biopsy 09/24/20, s/p Lupron 45 mg IM injection 11/05/20 then external beam radiation therapy completed 01/15/21 (70 Gy/28fx). ADRIANA -Follow up w/ urology as an outpatient Discharge planning. Single lives in [place], [place]. Functionally independent at home. No skilled needs for home anticipated -Ongoing collaboration w/ case mgmt, patient To Do or to Watch: Chest tube x 2 to water seal for air leak Ambulate in jiménez 3-4 times per day Discharge Planning: Anticipated Discharge Date: 06/22/24 Barriers to Discharge: pain, chest tube Care Management Discharge Needs: Needs Prior to Discharge: None (Offered HHC in event discharged with CT for which pt declines. he states his niece will assist as needed.) DAILY STEP DOWN CHECKLIST FOR CATHETER RELATED INFECTION PREVENTION CVC, PICC, Tati and/or Permacath present? No Does the patient have a urinary catheter beyond POD 2? No VTE Risk Assessment: High risk VTE Mechanical and/or Pharmacologic Prophylaxis: IPC Device, MILDRED hose, subcutaneous lovenox Labs and medications reviewed in [facility] SIGNATURE: Pastora Pierre APRN.CNP PAGER: [phone] DATE of SERVICE: June 21, 2024 TIME of SERVICE: 12:38 PM Staff Stable Minimal Pain good CXR No clear space Plan Probably d/c straight chest tube and home with drain Paula Escobar MD, PhD XR CHEST 1V FRONTAL PORT Observed: 06/21 6:25 AM Status: F Source: [facility] * * *Final Report* * * DATE OF EXAM: Jun 21 2024 6:25AM [place] [facility] - XR CHEST 1V FRONTAL PORT / PROCEDURE REASON: Post-operative / post-procedure assessment, asymptomatic * * * * Physician Interpretation * * * * EXAMINATION: CHEST RADIOGRAPH (PORTABLE SINGLE VIEW AP) Exam Date/Time: 06/21/2024 6:25 AM Clinical History: Post-operative / post-procedure assessment, asymptomatic, Post-operative/post-procedure assessment MQ: XCPMC_6 Comparison: 1 day prior RESULT: Lines, tubes, and devices: Stable right chest tubes. Lungs and pleura: Stable postsurgical changes of right lower lobectomy with a small loculated right pleural effusion and subpleural atelectasis in the lateral right midlung. Stable mild elevation of the left hemidiaphragm with subpleural atelectasis in the left lung base and probable small left pleural effusion or smooth left pleural thickening. Upper lobe predominant emphysema. No large pneumothorax. Cardiomediastinal silhouette: Stable cardiomediastinal silhouette. Other: . Mild subcutaneous emphysema in the right lateral chest wall. IMPRESSION: See result. Agency Trainer: PSCHerbert Transcribe Date/Time: Jun 21 2024 8:53A Dictated by : ANA CRISTINA MAYFIELD MD This examination was interpreted and the report reviewed and electronically signed by: ANA CRISTINA MAYFIELD MD on Jun 21 2024 8:55AM EST [id number] CBC PNL BLD AUTO Collected: 2:15 AM Status: F Source: [facility] Order Comment: Specimen Type : BLOOD SPECIMEN Ordering Facility: [facility] Address: [address] [place] [address] TYPE CODE TESTS RESULT OUT OF RANGE REFERENCE UNITS LAB 6690-2(LOINC) WBC # Bld Auto 9.46 3.70-11.00 k/uL LAB 789-8(LOINC) RBC # Bld Auto 4.15 Low 4.20-6.00 m/uL LAB 718-7(LOINC) Hgb Bld-mCnc 13.6 13.0-17.0 g/dL LAB 4544-3(LOINC) Hct VFr Bld Auto 40.7 39.0-51.0 % LAB 787-2(LOINC) MCV RBC Auto 98.1 80.0-100.0 fL LAB 785-6(LOINC) MCH RBC Qn Auto 32.8 26.0-34.0 pg LAB 786-4(LOINC) MCHC RBC Auto-mCnc 33.4 30.5-36.0 g/dL LAB 66009-8(INC) RDW RBC-Rto 14.6 11.5-15.0 % LAB 777-3(INC) Platelet # Bld Auto 209 150-400 k/uL LAB 06772-5(INC) PMV Bld Auto 9.0 9.0-12.7 fL LAB 771-6([facility]) nRBC # Bld Auto <0.01 <0.01 k/uL Performed By: #### 29708-1 # ### [facility] CLIA [id number] [address] [place] [address] [place] BAS METAB 2000 PNL SERPL Collected: 2:15 AM Status: F Source: [facility] Order Comment: Specimen Type : BLOOD SPECIMEN Ordering Facility: [facility] Address: [address] [place] [address] TYPE CODE TESTS RESULT OUT OF RANGE REFERENCE UNITS LAB 2345-7([facility]) Glucose SerPl-mCnc 98 74-99 mg/dL Result Comment: The [place] [employer] (ADA) provides guidance for cutoff values for fasting glucose and random glucose. The ADA defines fasting as no caloric intake for at least 8 hours. Fasting plasma glucose results between 100 to 125 mg/dL indicate increased risk for diabetes (prediabetes). Fasting plasma glucose results greater than or equal to 126 mg/dL meet the criteria for diagnosis of diabetes. In the absence of unequivocal hyperglycemia, results should be confirmed by repeat testing. In a patient with classic symptoms of hyperglycemia or hyperglycemic crisis, random plasma glucose results greater than or equal to 200 mg/dL meet the criteria for diagnosis of diabetes. Reference: Standards of Medical Care in Diabetes 2016, [place] [employer]. Diabetes Care. 2016.39(Suppl 1). LAB 3094-0(LOINC) BUN SerPl-mCnc 11 9-24 mg/ dL LAB 2160-0(LOINC) Creat SerPl-mCnc 0.55 Low 0.73-1.22 mg/dL LAB 2951-2(LOINC) Sodium SerPl-sCnc 137 136-144 mmol/L LAB 2823-3(LOINC) Potassium SerPl-sCnc 4.0 3.7-5.1 mmol/L LAB 2075-0(LOINC) Chloride SerPl-sCnc 102 98-107 mmol/L LAB 2028-9(LOINC) CO2 SerPl-sCnc 25 22-30 mmo l/L LAB 43621-8(LOINC) Anion Gap SerPl-sCnc 10 8-15 mmol/L LAB 23306-1(LOINC) Calcium SerPl-mCnc 9.4 8.5-10.2 mg/dL LAB 75044-7(LOINC) Creatinine + eGFR Pnl SerPlBld 106 >=60 mL/min/1 .73m??? Result Comment: Estimated Gl omerular Filtration Rate (eGFR) is calculated using the 2020 CKD-EPI creatinine equation. This equation utilizes serum creatinine, sex, and age as parameters. The creatinine assay has traceable calibration to isotope dilution-mass spectrometry. Refer to KDIGO guidelines for clinical interpretation. In patients with unstable renal function, e.g. those with acute kidney injury, the eGFR may not accurately reflect actual GFR. Performed By: #### 20938-1 # ### [facility] CLIA [id number] [address] [place] [address] OF [facility] PLAN OF CARE Observed: 06/20/2024 5:39 PM Status: COMPLETED Source: [facility] HNO ID: [id number] Author: KIRK AGUILAR, Kathryn Service: Pharmacy Author Type: Blood Bank Worker Type: Plan of Care Filed: 06/20/2024 17:39 Note Text: Insurance investigation completed Patient has active prescription insurance: Yes - Patient's insurance is in-network with [facility] Insurance loaded into [place]: Already loaded Test claim was completed to verify insurance is active: Successful Any questions, please reach out to your medication toy trains and accessories salesperson. Kirk Aguilar CPhT Medication Plate Glass Installer Helper [id number] PROGRESS Observed: 06/20/2024 4:03 PM Status: COMPLETED Source: [facility] HNO ID: [id number] Author: MINI LINDO RN Service: ? Author Type: Registered Nurse Type: Progress Notes Filed: 06/20/2024 16:04 Note Text: Transitional Care Management (TCM) Inpatient Outreach N/A - No specialty updates needed Summary: Patient admitted to: [facility] Patient admitted on: 06/19/2024 Admitted for: bronchopleural fistula Contact made with patient: No Mychart message sent Outreach ended. Mnii Lindo RN June 20, 2024 PROGRESS Observed: 06/20/2024 12:14 PM Status: COMPLETED Source: [facility] HNO ID: [id number] Author: PASTORA PIERRE APRN.PROGRAM SUPPORT ASSISTANT Service: Thoracic Surgery Author Type: Nurse Practitioner Type: Progress Notes Filed: 06/20/2024 12:14 Note Text: [facility] POST-OP PROGRESS NOTE Stevie Laura [id number] PRIMARY SERVICE: Thoracic Surgery - Paula Escobar M.D. DATE OF ADMISSION: 06/19/2024 DIAGNOSIS: Enlarging air space right chest, rule out pneumatocele/rule out bronchopleural fistula, rule out alveolar pleural fistula DATE: 06/19/2024 SURGERY: Right robotic assisted lysis of adhesions, repair of broncho/alveolar fistula, and intercostal nerve block. INTERVAL EVENTS / PERTINENT ROS: Surgery yesterday and transferred to thoracic stepdown. No acute events overnight. Small sir leak in right apical chest tube. Pain controlled. PERTINENT LABS: Hemoglobin (g/dL) Date Value 06/20/2024 13.8 04/28/2015 16.1 Hematocrit (%) Date Value 06/20/2024 41.9 04/28/2015 47.0 WBC (k/uL) Date Value 06/20/2024 11.36 04/28/2015 8.93 Glucose (mg/dL) Date Value 06/20/2024 95 02/08/2021 138 Potassium (mmol/L) Date Value 06/20/2024 4.9 02/08/2021 4.1 Sodium (mmol/L) Date Value 06/20/2024 138 02/08/2021 136 Chloride (mmol/L) Date Value 06/20/2024 100 02/08/2021 98 CO2 (mmol/L) Date Value 06/20/2024 24 02/08/2021 27 Creatinine (mg/dL) Date Value 06/20/2024 0.51 02/08/2021 0.78 BUN (mg/dL) Date Value 06/20/2024 9 02/08/2021 11 Anion Gap (mmol/L) Date Value 06/20/2024 14 02/08/2021 11 Calcium (mg/dL) Date Value 02/08/2021 10.2 Calcium, Total (mg/dL) Date Value 06/20/2024 9.7 CXR: Small bilateral pleural effusions TELEMETRY: SR Intake/Output Summary (Last 24 hours) at 06/20/2024 1209 Last data filed at 06/20/2024 0947 Gross per 24 hour Intake 1687 ml Output 2060 ml Net -373 ml PHYSICAL EXAM: Blood pressure 123/65, pulse 62, temperature 36.5 ?C (97.7 ?F), temperature source Oral, resp. rate 16, height 177.8 cm (5' 10), weight 79.2 kg (174 lb 9.7 oz), SpO2 98%. Room air Constitutional: No acute distress HEENT: Fair dentition Resp: Clear and Respiratory effort: normal Cardiovascular: Regular rate AND rhythm GI: Soft and Non-tender Integumentary: Warm and Dry Musculoskeletal: No deformities Neurological/Psychiatric: Oriented to time, place AND person , Alert, and No gross focal neurologic deficits Additional systems reviewed: No additional systems reviewed Incisions: -Right thoracoport incisional sites -with surgical glue, well approximated, no erythema, swelling, warmth, or drainage noted Tubes/Lines/Drains: -Right 24 Fr chest tube x 2 to water seal no noted air leak one chest tube small air leak noted in right angle chest tube drained 20 cc and 57 cc of serous fluid yesterday HISTORY, ASSESSMENT AND PLAN: Reason for admission Bronchopleural fistula Important/Relevant PMH/PSH: Ex smoker (40 pack year, quit 2021), AAA, COPD, HTN, HLD, adenocarcinoma prostate, 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 Transbronchial biopsy confirmed squamous cell lung cancer in right lower lobe lesion and he underwent robotic assisted right lower lobectomy, right lower lobe bronchoplasty 11/15/23. He then underwent SBRT to RUL lesion on 02/01/24. Surveillance CT chest 05/08/24 showed no compelling evidence for disease recurrence but did show a new right basilar bullae/pneumatocele. He now presents for resection. Airway Difficulty: Grade 1 - Not difficult Pacing Wires: No Chronological List of Surgeries and Major Events (Diagnosis): (Surgeries in bold characters) 06/19/2024 SURGERY: Flexible bronchoscopy, right video assisted thoracoscopy, robotic assisted repair of RLL bronchial stump bronchopleural fistula, pleural flap, intercostal nerve block, right phrenic nerve block. OR findings: Preop bronchoscopy with intact appearing right lower lobe bronchial stump. Dense adhesions upon entry to right chest. There was a large air filled space with a thickened surrounding pleural rind compatible with radiation induced changes. This space appeared to be in communication with pinpoint defect in RLL bronchialstump. This was reinforced with multiple prolene sutures, imbricating the pleura over the stump. A pleural flap was then mobilized and tacked in place over the area of reinforcement. A/P of Major Active Problems (excluding routine care and common problems): Bronchopleural fistula now s/p robotic repair RLL BPF w/ pleural flap on 06/19/24 -24 moroccan chest tube x 2 (posterior tube goes to base, anterior tube to apex) to water seal -DVT ppx squamous cell lung carcinoma, 2 synchronous primary lesions (RLL and RUL) vs cT4N0 now s/p VATS RLL lobectomy and LND 11/15/23. 05/08/24 CT large new cystic space in the resected bed. Multiloculated pneumothorax vs large bulla. COPD, mild. Home med: Fluticasone-salmeterol inhaler daily. Weaned to room air -Continue home medications -continue scheduled nebulizers and mucolytics HTN Home med: Lisinopril/HCTZ 20/12.5 mg every day and Norvasc 5 mg daily. Controlled on metoprolol 5 mg IV q6h for afib ppx -Continue -Hold home meds Spinal Stenosis Home med: Neurontin 600 mg TID, Pain controlled and up independently -Continue home medication AAA stable 4.67cm asymptomatic infrarenal aortic aneurysm by ultrasound (06/18/24) -surveillance aorta ultrasound 6 months w/ vascular surg -BP control, ASA, statin Hyperlipidemia Home medication Lipitor 20 mg daily. Last set of lipids revealed (05/02/23): Total Chol 146: HDL 38: LDL 79: TG 145. -Resume home medication. Prostate cancer [id number] adenocaarcinoma prostate s/p TRUS random biopsy 09/24/20, s/p Lupron 45 mg IM injection 11/05/20 then external beam radiation therapy completed 01/15/21 (70 Gy/28fx). ADRIANA -follow up w/ urology Discharge planning. Single lives in [place], [place]. Functionally independent at home. 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 he states his niece will assist as needed.) DAILY STEP DOWN CHECKLIST FOR CATHETER RELATED INFECTION PREVENTION CVC, PICC, Tati and/or Permacath present? No Does the patient have a urinary catheter beyond POD 2? No VTE Risk Assessment: High risk VTE Mechanical and/or Pharmacologic Prophylaxis: IPC Device, MILDRED hose, subcutaneous lovenox Labs and medications reviewed in [facility] SIGNATURE: Pastora Pierre APRN.PROGRAM SUPPORT ASSISTANT PAGER: [phone] DATE of SERVICE: June 20, 2024 TIME of SERVICE: 12:14 PM CASE MARGOTH BUTTERFIELDWADE MARROQUIN Observed: 06/20/2024 10:27 AM Status: COMPLETED Source: [facility] HNO ID: [id number] Author: MITCH KOCH RN Service: Care Management Author Type: Registered Nurse Type: Care Mgt Initial Assessment Filed: 06/20/2024 10:32 Note Text: CARE MANAGEMENT: ASSESSMENT AND DISCHARGE PLAN SERVICE DATE: June 20, 2024 SERVICE TIME: 10:27 AM PCP: Praful Su MD Primary Contact: Extended Emergency Contact Information Primary Emergency Contact: Otto(HCPOA) Elisabeth Mobile Relation: Sister Secondary Emergency Contact: Laura,(1st alt HCPOA) Jurgen Mobile Relation: Son Admission Status: Inpatient Insurance Provider: [employer] MEDICARE PPO Discharge Planning requested by: Per Department Practice Potential Transition Plans Home Advance Directives Current Advance Directive: Health Care Power of Manager Care In Chart: Yes Up To Date and Valid: Yes Current Living Arrangements and Support Lives with: Alone Type of Residence: Private Residence (Apartment or Condo) Does the patient have to climb stairs at home?: Yes, stairs outside the home ([address]) Support: Family members How do you manage to accomplish the following: Independent: Ambulation, Bathe/Shower, Dress, Meals/Meal Prep, Going to the bathroom, Medication Management Current Services/Equipment Current Post-Acute Service(s): None Discharge Planning Patient Goal(s): Be able to go home [place] of Choice Explained: [place] of Choice Given: Yes (Pt declined HHC) Level of Care Discussed: Home Care Are you interested in bedside delivery of your medications? Yes Discharge Planning Participant(s): Patient Patient/Family Comments: Caregiver Assessment: Caregiver is ready, willing and able to meet the patient's needs as recommended by the inter-professional team: Yes Name of Caregiver: Pt states niece and sister can assist as needed. Transport at Discharge: Transportation Arrangements: Car Destination: Pt's home [address] [facility] [id number] Needs Prior to Discharge: Needs Prior to Discharge: None (Offered HHC in event discharged with CT for which pt declines. he states his niece will assist as needed.) Post-Acute Discharge Plan: Per review of chart, 73 yr old male from [facility] s/p 06-19-2024 Flexible bronchoscopy, right video assisted thoracoscopy, robotic assisted repair of RLL bronchial stump bronchopleural fistula, pleural flap, intercostal nerve block, right phrenic nerve block for BPF. 11-16-2023 Robotic-assisted right lower lobectomy with right lower lobe bronchoplasty and mediastinal lymph node dissection [id number] RLL SCC and RUL spiculated and cavitary lesion 6 click 20 98% RA Met with pt. He lives alone in [address]st floor [address], [address]. 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 Denies current use of assist device. Jessica Rodríguez will transport home at [place]. Discussed HHC in event he is discharged with CT for which pt is declining. He states Niece can assist as needed. SIGNATURE: Mitch Koch RN PATIENT NAME: Stevie Angeles DATE: June 20, 2024 TIME: 10:27 AM XR CHEST 1V FRONTAL PORT Observed: 06/20 6:17 AM Status: F Source: [facility] * * *Final Report* * * DATE OF EXAM: Jun 20 2024 6:17AM JIX [id number] - XR CHEST 1V FRONTAL PORT / PROCEDURE REASON: Post-operative / post-procedure assessment, asymptomatic * * * * Physician Interpretation * * * * EXAMINATION: CHEST RADIOGRAPH (PORTABLE SINGLE VIEW AP) Exam Date/Time: 06/20/2024 6:17 AM Clinical History: Post-operative / post-procedure assessment, asymptomatic, Post-operative/post-procedure assessment MQ: [id number] Comparison: 1 day prior RESULT: Lines, tubes, and devices: Right chest tube. Lungs and pleura: Bilateral small effusions with right intrafissural component and basilar opacities/atelectasis. Trace right pneumothorax. Left hemidiaphragm elevation, unchanged Cardiomediastinal silhouette: Stable cardiomediastinal silhouette. Other: . IMPRESSION: See result. Agency Trainer: [facility] Transcribe Date/Time: Jun 20 2024 10:15A Dictated by : SANGEETHA MCDONALD MD This examination was interpreted and the report reviewed and electronically signed by: SANGEETHA MCDONALD MD on Jun 20 2024 10:16AM EST [id number] BAS METAB 2000 PNL SERPL Collected: 6:00 AM Status: F Source: [facility] Order Comment: Specimen Type : BLOOD SPECIMEN Ordering Facility: [facility] Address: [address] [place] [address] TYPE CODE TESTS RESULT OUT OF RANGE REFERENCE UNITS LAB 2345-7(LOINC) Glucose SerPl-mCnc 95 74-99 mg/dL Result Comment: The [place] [employer] (ADA) provides guidance for cutoff values for fasting glucose and random glucose. The ADA defines fasting as no caloric intake for at least 8 hours. Fasting plasma glucose results between 100 to 125 mg/dL indicate increased risk for diabetes (prediabetes). Fasting plasma glucose results greater than or equal to 126 mg/dL meet the criteria for diagnosis of diabetes. In the absence of unequivocal hyperglycemia, results should be confirmed by repeat testing. In a patient with classic symptoms of hyperglycemia or hyperglycemic crisis, random plasma glucose results greater than or equal to 200 mg/dL meet the criteria for diagnosis of diabetes. Reference: Standards of Medical Care in Diabetes 2016, [place] [employer] Association. Diabetes Care. 2016.39(Suppl 1). LAB 3094-0(LOINC) BUN SerPl-mCnc 9 9-24 mg/ dL LAB 2160-0(LOINC) Creat SerPl-mCnc 0.51 Low 0.73-1.22 mg/dL LAB 2951-2(LOINC) Sodium SerPl-sCnc 138 136-144 mmol/L LAB 2823-3(LOINC) Potassium SerPl-sCnc 4.9 3.7-5.1 mmol/L LAB 2075-0(LOINC) Chloride SerPl-sCnc 100 98-107 mmol/L LAB 2028-9(LOINC) CO2 SerPl-sCnc 24 22-30 mmo l/L LAB 12165-2(LOINC) Anion Gap SerPl-sCnc 14 8-15 mmol/L LAB 37996-1(LOINC) Calcium SerPl-mCnc 9.7 8.5-10.2 mg/dL LAB 08239-9(LOINC) Creatinine + eGFR Pnl SerPlBld 108 >=60 mL/min/1 .73m??? Result Comment: Estimated Gl omerular Filtration Rate (eGFR) is calculated using the 202 CKD-EPI creatinine equation. This equation utilizes serum creatinine, sex, and age as parameters. The creatinine assay has traceable calibration to isotope dilution-mass spectrometry. Refer to KDIGO guidelines for clinical interpretation. In patients with unstable renal function, e.g. those with acute kidney injury, the eGFR may not accurately reflect actual GFR. Performed By: #### [id number] # ### [facility] CLIA [id number] [address] [place] [address] [place] CBC PNL BLD AUTO Collected: 6:00 AM Status: F Source: [facility] Order Comment: Specimen Type : BLOOD SPECIMEN Ordering Facility: [facility] Address: [address] [place] [address] TYPE CODE TESTS RESULT OUT OF RANGE REFERENCE UNITS LAB 6690-2(LOINC) WBC # Bld Auto 11.36 High 3.70-11.00 k/uL LAB 789-8(LOINC) RBC # Bld Auto 4.20 4.20-6.00 m/uL LAB 718-7(LOINC) Hgb Bld-mCnc 13.8 13.0-17.0 g/dL LAB 4544-3(LOINC) Hct VFr Bld Auto 41.9 39.0-51.0 % LAB 787-2(LOINC) MCV RBC Auto 99.8 80.0-100.0 fL LAB 785-6(LOINC) MCH RBC Qn Auto 32.9 26.0-34.0 pg LAB 786-4(LOINC) MCHC RBC Auto-mCnc 32.9 30.5-36.0 g/dL LAB 27940-4(LOINC) RDW RBC-Rto 14.5 11.5-15.0 % LAB 777-3(LOINC) Platelet # Bld Auto 222 150-400 k/uL LAB 20304-0(LOINC) PMV Bld Auto 9.0 9.0-12.7 fL LAB 771-6(LOINC) nRBC # Bld Auto <0.01 <0.01 k/uL Performed By: #### [id number] # ### [facility] CLIA [id number] [address] [place] [address] OF [place] CNPTOUTREACH Observed: 06/20/2024 12:00 AM Status: COMPLETED Source: [facility] Patient Outreach ([facility]) STEVIE ANGELES ([id number]) 1950 M DEF Date Time Provider Department 06/20/24 MINI [place]INDO [facility] [place] your visit today, we recorded the following information about you: Mini Lindo RN 06/20/2024 4:04 PM Signed Transitional Care Management (TCM) Inpatient Outreach N/A - No specialty updates needed Summary: Patient admitted to: [facility] Patient admitted on: 06/19/2024 Admitted for: bronchopleural fistula Contact made with patient: No Mychart message sent Outreach ended. Mini Lindo RN June 20, 2024 Allergies As of Date: 06/20/2024 (No Known Allergies) Date Reviewed: 06/20/2024 Reviewed by: Laurie Erwin RN - Fully Assessed Reason for Visit: Transition Of Care [4074] Cmt: Reach in Prescriptions as of 06/20/2024 - fluticasone-salmeterol (WIXELA INHUB) 250-50 mcg/dose inhaler Inhale 1 puff as instructed two times a day. - albuterol HFA (PROVENTIL HFA, VENTOLIN HFA) 90 mcg/actuation inhaler Inhale 2 puffs as instructed every 4 hours as needed. - mupirocin (BACTROBAN) 2 % ointment Apply a small amount in each nostril using a cotton swab twice the day before surgery and once the morning of surgery. - acetaminophen (TYLENOL) 325 mg tablet Take 2 tablets by mouth every 4 hours as needed for pain. - gabapentin (NEURONTIN) 300 mg capsule TAKE 2 CAPSULES BY MOUTH 3 TIMES A DAY - lisinopril-hydroCHLOROthiazide (ZESTORETIC) 20-12.5 mg per tablet Take 1 tablet by mouth once daily. Patient should start on December 19, 2023. - atorvastatin (LIPITOR) 20 mg tablet Take 1 tablet by mouth once daily. Facility-Administered Medications as of 06/20/2024 - metoprolol tartrate (short acting) 25 mg tab(s) (LOPRESSOR) - calcium carbonate 500 mg chewable tab(s) (TUMS) - atorvastatin 20 mg tab(s) (LIPITOR) - albuterol HFA 90 mcg/actuation 2 puff (PROVENTIL HFA, VENTOLIN HFA) - gabapentin 600 mg cap(s) (NEURONTIN) - ondansetron (PF) 4 mg injection (ZOFRAN) - albuterol 2.5 mg /3 mL (0.083 %) 2.5 mg (PROVENTIL) - enoxaparin 40 mg injection (LOVENOX) - NaCl 0.9% iv flush bag - oxyCODONE IR 5-10 mg tab(s) (ROXICODONE) - oxyCODONE 5-10 mg oral liquid (ROXICODONE) - naloxone 0.1 mg injection (NARCAN) - bisacodyl 10 mg suppository (DULCOLAX) - acetaminophen 1,000 mg tab(s) (TYLENOL) - polyethylene glycol 3350 17 g packet - pantoprazole DR 20 mg tab(s) (PROTONIX) Problem List As Of Date 06/20/2024 Noted Resolved Glucose intolerance (impaired glucose tolerance*06/23/2010 Primary hypertension [I10] 06/23/2010 Mixed hyperlipidemia [E78.2] 06/23/2010 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*02/14/2011 Hypercholesteremia [E78.00] 09/15/2011 09/16/2011 Spinal stenosis of lumbar region with neurogeni*06/01/2015 Paresthesias [R20.2] 06/01/2015 Lumbosacral neuritis [M54.17] 12/23/2016 Infrarenal abdominal aortic aneurysm (AAA) with*02/08/2021 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] 04/24/2023 Prostate cancer (HCC) [C61] 09/11/2023 Paroxysmal atrial fibrillation (HCC) [I48.0] 09/11/2023 Cancer of lower lobe of right lung (HCC) [C34.3*11/15/2023 Postoperative pain [G89.18] 11/16/2023 Stage 1 mild COPD by GOLD classification (HCC) *11/17/2023 Abscess of lower lobe of right lung without pne*11/17/2023 Pleural effusion, left [J90] 11/17/2023 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 Author Type: Anesthesiologist Type: Anesthesia Postprocedure Evaluation Filed: 06/19/2024 12:36 Note Text: POST ANESTHESIA EVALUATION NOTE : 1950 Procedure Summary Date: 06/19/24 Room / Location: [address] AND [facility] Anesthesia Start: 0816 Anesthesia Stop: 1142 Procedure: Possible Right ROBOTIC THORACOSCOPY, possible thoracotomy, possible lung resection ; LOBECTOMY, TOTAL OR SEGMENTAL (Right: Chest) Diagnosis: Hydropneumothorax Pre-procedure lab exam (Hydropneumothorax [J94.8]) (Pre-procedure lab exam [Z01.812]) Surgeons: Paula Escobar MD, PhD Responsible Provider: Geraldine Torres MD Anesthesia Type: general ASA Status: 3 Anesthesia Type: general Airway Type: ETT Last Vitals Vitals Value Taken Time BP 112/69 06/19/24 1232 Temp 36.7 06/19/24 1236 Pulse 71 06/19/24 1234 Resp 16 06/19/24 1234 SpO2 96 % 06/19/24 1234 Vitals shown include unfiled device data. Post Anesthesia Patient Status Patient Evaluation: PACU. PACU/ICU Patient Condition: stable. Neurological Status: aware and responsive. Pulmonary Status: breathing comfortably on supplemental oxygen Airway Control: returned to baseline unsupported. Cardiovascular Status: stable. Pain Management: clinically adequate Postoperative Hydration: acceptable. Intraoperative Events: no significant anesthesia events Recommendation: continue current plan of care. Anesthesia Observations No Documentation SIGNATURE: Geraldine Torres MD PATIENT NAME: Stevie Angeles DATE: June 19, 2024 TIME: 12:36 PM CSN: [id number] PROGRESS Observed: 06/19/2024 12:30 PM Status: COMPLETED Source: [facility] HNO ID: [id number] Author: MARLEE SOLANO APRN.PROGRAM SUPPORT ASSISTANT Service: Thoracic Surgery Author Type: Nurse Practitioner Type: Progress Notes Filed: 06/19/2024 15:21 Note Text: [facility] POST-OP PROGRESS NOTE Stevie Angeles [id number] PRIMARY SERVICE: Thoracic Surgery - Paula Escobar M.D., PhD ADMIT DATE: DIAGNOSIS: Bronchopleural fistula DATE: 06/19/2024 SURGERY: Flexible bronchoscopy, right video assisted thoracoscopy, robotic assisted repair of RLL bronchial stump bronchopleural fistula, pleural flap, intercostal nerve block, right phrenic nerve block INTERVAL EVENTS / PERTINENT ROS: Surgery earlier today. Pain controlled at present. Small air leak in pleural chest tube. PERTINENT LABS: None CXR: Post operative changes, no large pneumothorax or effusion TELEMETRY: SR Intake/Output Summary (Last 24 hours) at 06/19/2024 1326 Last data filed at 06/19/2024 1117 Gross per 24 hour Intake 1600 ml Output 120 ml Net 1480 ml PHYSICAL EXAM: Blood pressure 108/69, pulse 71, temperature 36.9 ?C (98.4 ?F), temperature source Temporal, resp. rate 12, height 177.8 cm (5' 10), weight 76.6 kg (168 lb 12.8 oz), SpO2 96%. 2L/min Constitutional: No acute distress HEENT: Poor dentition Resp: Decreased breath sounds Cardiovascular: Regular rate AND rhythm GI: Soft Integumentary: Warm and Dry Musculoskeletal: No deformities Neurological/Psychiatric: Oriented to time, place AND person Additional systems reviewed: No additional systems reviewed Incisions: -Right thoracoport incisions w/ dressings Incision assessment: Well approximated. 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 Transbronchial biopsy confirmed squamous cell lung cancer in right lower lobe lesion and he underwent robotic assisted right lower lobectomy, right lower lobe bronchoplasty 11/15/23. He then underwent SBRT to RUL lesion on 02/01/24. Surveillance CT chest 05/08/24 showed no compelling evidence for disease recurrence but did show a new right basilar bullae/pneumatocele. He now presents for resection. Airway Difficulty: Grade 1 - Not difficult Pacing Wires: No Chronological List of Surgeries and Major Events (Diagnosis): (Surgeries in bold characters) 06/19/2024 SURGERY: Flexible bronchoscopy, right video assisted thoracoscopy, robotic assisted repair of RLL bronchial stump bronchopleural fistula, pleural flap, intercostal nerve block, right phrenic nerve block. OR findings: Preop bronchoscopy with intact appearing right lower lobe bronchial stump. Dense adhesions upon entry to right chest. There was a large air filled space with a thickened surrounding pleural rind compatible with radiation induced changes. This space appeared to be in communication with pinpoint defect in RLL bronchialstump. This was reinforced with multiple prolene sutures, imbricating the pleura over the stump. A pleural flap was then mobilized and tacked in place over the area of reinforcement. A/P of Major Active Problems (excluding routine care and common problems): Bronchopleural fistula now s/p robotic repair RLL BPF w/ pleural flap on 06/19/24 -24 moroccan chest tube x 2 (posterior tube goes to base, anterior tube to apex) -DVT ppx squamous cell lung carcinoma, 2 synchronous primary lesions (RLL and RUL) vs cT4N0 now s/p VATS RLL lobectomy and LND 11/15/23. 05/08/24 CT large new cystic space in the resected bed. Multiloculated pneumothorax vs large bulla. COPD, mild. Home med: Fluticasone-salmeterol inhaler daily. Weaned to room air -Continue home medications -continue scheduled nebulizers and mucolytics HTN Home med: Lisinopril/HCTZ 20/12.5 mg every day and Norvasc 5 mg daily - Spinal Stenosis Home med: Neurontin 600 mg TID, Pain controlled and up independently -Continue home medication AAA stable 4.67cm asymptomatic infrarenal aortic aneurysm by ultrasound (06/18/24) -surveillance aorta ultrasound 6 months w/ vascular surg -BP control, ASA, statin Hyperlipidemia Home medication Lipitor 20 mg daily. Last set of lipids revealed (05/02/23): Total Chol 146: HDL 38: LDL 79: TG 145. -Resume home medication. Prostate cancer [id number] adenocaarcinoma prostate s/p TRUS random biopsy 09/24/20, s/p Lupron 45 mg IM injection 11/05/20 then external beam radiation therapy completed 01/15/21 (70 Gy/28fx). ADRIANA -follow up w/ urology Discharge planning. Single lives in [place], [place]. Functionally independent at home. No skilled needs for home anticipated -ongoing collaboration w/ case mgmt, patient To Do or to Watch: Chest tube x 2 Discharge Planning: Anticipated Discharge Date: 06/22/24 Barriers to Discharge: pain, chest tube Care Management Discharge Needs: DAILY STEP DOWN CHECKLIST FOR CATHETER RELATED INFECTION PREVENTION CVC, PICC, Tati and/or Permacath present? No Does the patient have a urinary catheter beyond POD 2? No VTE Risk Assessment: High risk VTE Mechanical and/or Pharmacologic Prophylaxis: IPC Device, MILDRED hose, subcutaneous heparin Labs and medications reviewed in [facility] SIGNATURE: Fay Childress APRN.PROGRAM SUPPORT ASSISTANT PAGER: [phone] DATE of SERVICE: June 19, 2024 TIME of SERVICE: 12:30 PM XR CHEST 1V FRONTAL PORT Observed: 06/19 12:25 PM Status: F Source: [facility] * * *Final Report* * * DATE OF EXAM: Jun 19 2024 12:25PM [place] [id number] - XR CHEST 1V FRONTAL PORT / PROCEDURE REASON: Post-operative / post-procedure assessment, asymptomatic * * * * Physician Interpretation * * * * EXAMINATION: CHEST RADIOGRAPH (PORTABLE SINGLE VIEW AP) Exam Date/Time: 06/19/2024 12:25 PM Clinical History: Post-operative / post-procedure assessment, asymptomatic, Post-operative/post-procedure assessment MQ: [id number] Comparison: 06/07/2024 RESULT: Lines, tubes, and devices: Interval right thoracotomy with placement of 2 right chest tubes. Lungs and pleura: Changes suggestive of interval resection of prominent bowel are within the lower right lung with development of small right hydropneumothorax. Evacuation of loculated hydropneumothorax is felt to be less likely. Increase of perihilar and basilar opacities with volume loss suggesting atelectasis with possible underlying mild edema or inflammation. Increase of elevation of the diaphragms, left more than right. Cardiomediastinal silhouette: Stable cardiomediastinal silhouette. Other: . IMPRESSION: See result. Agency Trainer: [facility] Transcribe Date/Time: Jun 19 2024 5:35P Dictated by : GILMA RAMSEY MD This examination was interpreted and the report reviewed and electronically signed by: GILMA RAMSEY MD on Jun 19 2024 5:38PM EST [id number] OP NOT Observed: 06/19/2024 11:21 AM Status: COMPLETED Source: [facility] HNO ID: [id number] Author: DON MIRAMONTES MD Service: Thoracic Surgery Author Type: Resident Type: Brief Op Note Filed: 06/19/2024 11:29 Note Text: BRIEF OPERATIVE / PROCEDURE NOTE LOG ID: [id number] SURGERY/PROCEDURE DATE: 06/19/2024 INCISION/PROCEDURE START TIME: 9:12 AM INCISION CLOSE/PROCEDURE END TIME: 11:20 AM SURGEON(S)/PROCEDURALIST(S) AND DEFENSIVE DRIVING INSTRUCTOR(S): Surgeons and Role: * Paula Escobar MD, PhD - Primary * Don Miramontes MD - Assisting Registered Nurse Business Solutions Consultant: Alok Mae RN SURGERY/PROCEDURE(S): Flexible bronchoscopy Right video assisted thoracoscopy Robotic assisted repair of RLL bronchial stump bronchopleural fistula Pleural flap Intercostal nerve block Right phrenic nerve block ANESTHESIA: General FINDINGS: Preoperative bronchoscopy with intact appearing right lower lobe bronchial stump. Dense adhesions upon entry to the right chest. There was a large air filled space with a thickened surrounding pleural rind compatible with radiation induced changes. This space appeared to be in communication with a pinpoint defect in the RLL bronchial stump. This was reinforced with multiple prolene sutures, imbricating the pleura over the stump. A pleural flap was then mobilized and tacked in place over the area of reinforcement. ESTIMATED BLOOD LOSS: 50 mls SPECIMENS: None COMPLICATIONS: None Drains: Basilar 24 Fr tube (posterior on skin) and 24 Fr tube anterior to apex (anterior on skin) CLOSURE TECHNIQUE: Primary PRE-OP/PRE-PROCEDURE DIAGNOSIS: Right pleural space, etiology unknown POST-OP/POST-PROCEDURE DIAGNOSIS: Bronchopleural fistula Patient was accompanied to the next level of care by a licensed practitioner from the surgical team pending completion of this brief op note (or operative note) SIGNATURE: Don Miramontes MD PATIENT NAME: Stevie Angeles DATE: June 19, 2024 TIME: 11:21 AM ANES PROCEDURE NOTE Observed: 06/19/2024 9:11 AM Status: COMPLETED Source: [facility] HNO ID: [id number] Author: GERALDINE TORRES MD Service: ? 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 Staffing Anesthesiologist: Geraldine Torres MD Resident: Bright Hurtado MD Performed by: resident and anesthesiologist Indications and Patient Condition Indications for airway management: anesthesia Preoxygenated: yes anesthesia circuit Patient position: sniffing Method: sleep Difficult Mask: Yes (Krause and edentulous) Airway Accessory: oral airway Final Airway Details Final airway type: endotracheal airway Final Endotracheal Airway: ETT - double lumen left Cuffed: yes Successful intubation technique: video laryngoscopy Devices used: Pickard and intubating stylet Endotracheal tube insertion site: oral Blade: Kristy Blade size: #4 ETT DL size (fr): 39 Measured from: teeth Measurement (cm): 30 Placement verified by: bronchoscopy and capnometry Cormack-Lehane Classification: grade I - full view of glottis Number of attempts at approach: 1 Airway not difficult Comments Initial airway with single lumen 8.0mm ETT to allow for surgical team bronchoscope prior to procedure. As above, Grade I view with Pickard MAC4 and placed in 1 attempt. Single lumen tube removed and replaced with 39Fr REYMUNDO as above prior to procedure SIGNATURE: Bright Hurtado MD PATIENT NAME: Stevie Angeles DATE: June 19, 2024 TIME: 9:11 AM CSN: [id number] ANES PRE-OP Observed: 06/19/2024 7:55 AM Status: COMPLETED Source: [facility] HNO ID: [id number] Author: GERALDINE TORRES MD Service: ? Author Type: Anesthesiologist Type: Anesthesia Preprocedure Evaluation Filed: 06/19/2024 07:56 Note Text: ANESTHESIOLOGY DAY OF SURGERY NOTE : 1950 Procedure Information Date/Time: 06/19/24729 Procedure: Possible Right ROBOTIC THORACOSCOPY, possible thoracotomy, possible lung resection ; LOBECTOMY, TOTAL OR SEGMENTAL (Right: Chest) Location: [facility] / [facility] Surgeons: Paula Escobar MD, PhD Estimated body mass index is 24.22 kg/m? as calculated from the following: Height as of this encounter: 177.8 cm (5' 10). Weight as of this encounter: 76.6 kg (168 lb 12.8 oz). Most recent hematocrit and potassium results: Hematocrit 49.1 06/07/2024 Potassium 4.5 06/07/2024 Relevant Problems CARDIO (+) Infrarenal abdominal aortic aneurysm (AAA) without rupture (+) Paroxysmal atrial fibrillation (HCC) (+) Primary hypertension PULMONARY (+) Stage 1 mild COPD by GOLD classification ([facility]) I - PHYSICAL EVALUATION AIRWAY Patient intubated: No. Tracheostomy tube not present Mallampati: II. TM distance: >3 FB. Neck ROM: full ROM without neurological symptoms. Mouth opening: adequate. Short neck: no. Thick neck: no Krause present: yes DENTAL Dental findings: missing tooth/teeth. Dentures, upper: complete. II - ANESTHESIA PLAN ASA Score: 3 Anesthetic Plan: general Airway type: ETT The patient is not a current smoker. NPO Status: adequate Beta Cecilio Monitoring Plan Monitoring plan: standard ASA. Post Procedure Analgesic Plan Postoperative analgesic plan: parenteral or oral opioids. Informed Consent Anesthetic risks, benefits, alternatives, personnel and consent discussed: yes. Patient / Responsible Constitution Party agrees to proceed: yes Patient / Surrogate agrees to blood products: Yes Vitals Value Taken Time BP 113/71 06/19/24 0709 Pulse Resp 16 06/19/24 0709 Temp 36.9 ?C (98.4 ?F) 06/19/24 0709 SpO2 96 % 06/19/24 0709 Facility-Administered Medications as of 06/19/2024 Medication Dose Route Frequency [COMPLETED] Chlorhexidine Gluconate 0.12 % 15 mL (PERIDEX) 15 mL ORAL ONCE [COMPLETED] acetaminophen 1,000 mg tab(s) (TYLENOL) 1,000 mg ORAL ONCE Outpatient Medications as of 06/19/2024 Medication Sig gabapentin (NEURONTIN) 300 mg capsule TAKE 2 CAPSULES BY MOUTH 3 TIMES A DAY lisinopril-hydroCHLOROthiazide (ZESTORETIC) 20-12.5 mg per tablet Take 1 tablet by mouth once daily. Patient should start on December 19, 2023. atorvastatin (LIPITOR) 20 mg tablet Take 1 tablet by mouth once daily. acetaminophen (TYLENOL) 325 mg tablet Take 2 tablets by mouth every 4 hours as needed for pain. I have interviewed and examined the patient. I have reviewed the medical record and/or the pre-anesthesia evaluation, pertinent labs, and test results. This contains updated information obtained within 48 hours of Surgery/Procedure. SIGNATURE: Geraldine Torres MD PATIENT NAME: Stevie Angeles DATE: June 19, 2024 TIME: 7:55 AM CSN: [id number] OPERATIVE NO Observed: 06/19/2024 12:00 AM Status: COMPLETED Source: [facility] HNO ID: [id number] Author: PAULA ESCOBAR MD, PhD Service: Thoracic Surgery Author Type: Physician Type: Operative Report Filed: 06/22/2024 10:53 Note Text: [facility] - Cardiothoracic Operative Report [id number] [address] [place] STEVIE ANGELES : 1950 AGE: 73. SEX: M PATIENT TYPE: I HOSP SV: [facility] LOCATION: [id number] ATTENDING PHYSICIAN: Paula Escobar M.D., Ph.D. CSN NUMBER: [id number] DATE OF SURGERY/PROCEDURE: 06/19/2024 INCISION/PROCEDURE START TIME: 09:12 a.m. INCISION CLOSE/PROCEDURE END TIME: 11:20 a.m. I personally notified the patient's family at the conclusion of the case. PREOPERATIVE DIAGNOSIS: Enlarging air space right chest, rule out pneumatocele/rule out bronchopleural fistula, rule out alveolar pleural fistula. POSTOPERATIVE DIAGNOSIS: Enlarging air space right chest, rule out pneumatocele/rule out bronchopleural fistula, rule out alveolar pleural fistula. SURGEON: Paula Escobar M.D., Ph.D. DEFENSIVE DRIVING INSTRUCTOR: 1. Don Miramontes. 2. Alok Mae RN. SURGERY/PROCEDURE: Right robotic assisted lysis of adhesions, repair of broncho/alveolar fistula, and intercostal nerve block. ANESTHESIA: General endotracheal. INDICATIONS: The patient is a 73-year-old man, who some 7 or 8 months ago, underwent complex resection of a locally advanced non-small cell lung cancer of the right lower lobe. The patient then underwent SBRT treatment of a right upper lobe lesion. After his treatment with SBRT, the patient began developing any gradually enlarging pneumatocele at the base of his right lung. This was first noted approximately 3 weeks after his treatment. This is continued to enlarge and now presents with significant compression of remaining right upper and right middle lobe. The patient is without obvious infection and actually feels quite well other than some mild worsening shortness of breath. The patient is brought to the operating room for intraoperative examination as well as planned therapeutic intervention. OPERATIVE FINDINGS: Suspected parenchymal/bronchial defect adjacent to the right lower lobe bronchial stump that appeared to be feeding a loculated posterior right pneumothorax. DESCRIPTION OF PROCEDURE: After induction of analgesia and anesthesia, an adult bronchoscope was passed through a single-lumen tube, which was used to assess the airways. The bronchial stump did appear well coapted. The right middle lobe takeoff appeared widely patent. There was no evidence of any dehiscence. A double- lumen tube was then placed and the patient was positioned in left lateral decubitus posture to fully expose the right chest. After landmarks were identified, a standard operating Thoracoport was placed roughly at the anterior axillary line of interspace 6. Digital deloculation was necessary in order to create space for a trocar and thoracoscope. Once this was done, it became apparent there were dense adhesions of the lung to the chest wall. A 2nd port was placed in mid axillary line and 1 interspace lower. Once again, digital deloculation was necessary in order to free the diaphragm and to createspace. With the camera in the upper port and a ring forceps and lower port, some of the adhesions were able to be taken down bluntly. A 3rd port was then created posteriorly and again space was needed in order to access the chest. Once this was done, a 3 robot arm technique was then used. CO2 was insufflated. Bipolar cautery as well as blunt dissection was used to tediously take the lung down off the chest wall as there were extensive adhesions of lung to chest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 Primary differential for this is a multiloculated pneumothorax or less likely a large bulla. 2. Stable right upper lobe spiculated nodule with cavitations. Agency Trainer: [facility] Transcribe Date/Time: May 11 2024 3:35P Dictated by : IVON DALTON MD This examination was interpreted and the report reviewed and electronically signed by: IVON DALTON MD on May 11 2024 3:46PM EST ECHO Collection Time: 10/16/23 2:52 PM Impression CONCLUSIONS: - Technically difficult exam due to lung interference. - Exam indication: Hypertension - The left ventricle is small. Left ventricular systolic function is normal. EF = 55 ? 5% (2D biplane) Normal left ventricular diastolic function. - The right ventricle is normal in size. Right ventricular systolic function is normal. - The visualized aorta is dilated with a maximal dimension of 4.2 cm. - Estimated right ventricular systolic pressure is likely underestimated due to a weak or incomplete tricuspid regurgitation signal and is, at least, 26 mmHg consistent with normal pulmonary artery pressures. Estimated right atrial pressure is 3 mmHg based on IVC assessment. - There are no significant valvular abnormalities. - The patient has not had a prior CC echocardiographic exam for comparison. * * * Final * * * Assessment No problem-specific Assessment AND Plan notes found for this encounter. ANESTHESIA FINDINGS: Intubation History: No history of difficult intubation Significant Anesthesia Considerations: none Airway History: No history of difficult airway Prepared for Surgery: optimally prepared for surgery. The Following Tests/Procedures Have Been Initiated: Orders Placed This Encounter mupirocin (BACTROBAN) 2 % ointment Sig: Apply a small amount in each nostril using a cotton swab twice the day before surgery and once the morning of surgery. Dispense: 22 g Refill: 0 Order Comments: Supply patient with Q-tips and instruction sheet ASA Class: 3 Planned Anesthetic: general I - PHYSICAL EVALUATION AIRWAY Patient intubated: No. Tracheostomy tube not present Mallampati: II. TM distance: >3 FB. Neck ROM: full ROM without neurological symptoms. Mouth opening: adequate. Short neck: no. Thick neck: no Krause present: yes (large krause) DENTAL Dentures, upper: complete. Dentures, lower: partial. II - ANESTHESIA PLAN ASA Score: 3 Anesthetic Plan: general Airway type: ETT Beta Cecilio Monitoring Plan Post Procedure Analgesic Plan Informed Consent Anesthetic risks, benefits, alternatives, personnel and consent discussed: yes. Patient / Responsible Constitution Party agrees to proceed: yes Patient / Surrogate agrees to blood products: Yes Discussed the possibility of lip / dental damage: yes Instructions Given to Patient: Instructions located in the after visit summary. Patient given verbal and written preop instructions and voices comprehension and compliance. Signature: Michelle Kemp MD Patient Name: Stevie Angeles Date: June 07, 2024 Time: 9:57 AM Pager/Contact #: Referring Provider: PAULA ESCOBAR [[id number]] Allergies As of Date: 06/07/2024 (No Known Allergies) Date Reviewed: 06/07/2024 Reviewed by: Geni James MA - Fully Assessed Primary Visit Diagnosis:Encounter for preoperative anesthesiology assessment for thoracic surgery [Z01.818] Order(s):mupirocin (BACTROBAN) 2 % ointmentApply a small amount in each nostril using a cotton swab twice the day before surgery and once the morning of surgery.Disp: 22 gRfl: 0 Prescriptions as of 06/07/2024 - mupirocin (BACTROBAN) 2 % ointment Apply a small amount in each nostril using a cotton swab twice the day before surgery and once the morning of surgery. - amLODIPine (NORVASC) 5 mg tablet Take 1 tablet by mouth once daily. - acetaminophen (TYLENOL) 325 mg tablet Take 2 tablets by mouth every 4 hours as needed for pain. - gabapentin (NEURONTIN) 300 mg capsule TAKE 2 CAPSULES BY MOUTH 3 TIMES A DAY - lisinopril-hydroCHLOROthiazide (ZESTORETIC) 20-12.5 mg per tablet Take 1 tablet by mouth once daily. Patient should start on December 19, 2023. - fluticasone-salmeterol (WIXELA INHUB) 250-50 mcg/dose inhaler Inhale 1 Puff as instructed two times a day. - atorvastatin (LIPITOR) 20 mg tablet Take 1 tablet by mouth once daily. 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] 04/24/2023 Prostate cancer (HCC) [C61] 09/11/2023 Paroxysmal atrial fibrillation (HCC) [I48.0] 09/11/2023 Cancer of lower lobe of right lung (HCC) [C34.3*11/15/2023 Postoperative pain [G89.18] 11/16/2023 Stage 1 mild COPD by GOLD classification ([facility]) *11/17/2023 Abscess of lower lobe of right lung without pne*11/17/2023 Pleural effusion, left [J90] 11/17/2023 Atelectasis [J98.11] 11/17/2023 Pneumothorax [J93.9] 05/10/2024 Hearing loss [H91.90] 05/10/2024 Prescriptions ordered this encounter Disp Refills Start End MUPIROCIN 2 % TOPICAL OINTMENT 22 g 0 06/07/2024 Cmt: Supply patient with Q-tips and instruction sheet Sig: Apply a small amount in each nostril using a cotton swab twice the day before surgery and once the morning of surgery. Encounter Status:Closed by KOLBY SABA on 06/07/24 Chart Close Cosign Required by: Michelle Kemp MD[] PROGRESS Observed: 06/07/2024 11:40 AM Status: COMPLETED Source: [facility] HNO ID: [id number] Author: KOLBY SABA MD Service: ? Author Type: Resident Type: Progress Notes Filed: 06/07/2024 12:18 Note Text: Cardiothoracic Anesthesiology Preoperative Assessment Service Date: 06/07/2024 Service Time: 9:57 AM Primary Care Physician: Praful Su MD Subjective Patient Entered Data: Scheduled procedure: Robotic thoracoscopy Surgeon: Dl Scheduled date: 06/19/2024 HPI: 73 year old year old male with PMH notable for: PAST MEDICAL HISTORY No date: Abdominal aortic aneurysm Comment: without rupture No date: Elevated PSA No date: Hearing loss No date: HTN (hypertension) No date: Lumbosacral neuritis No date: Malignant neoplasm of prostate (HCC) No date: Other and unspecified hyperlipidemia 2020: Prostate cancer (HCC) Comment: xrt at [facility] [place] No date: Smoker Comment: former quit 2021 No date: Spinal stenosis of lumbar region with neurogenic claudication There are no active hospital problems to display for this patient. Pt presents for preoperative evaluation prior to elective thoracic surgery. Patient instructed to: - Follow surgical instruction regarding anticoagulation/ASA therapy - Follow additional instructions regarding all other medications as discussed and detailed on medication guideline information sheet given to patient at visit. Review no known heparin intolerance not taking anticoagulant/antiplatelet medication no non-cardiac IEDs present no known esophageal disorders blood transfusion consented - COVID-19 Immunization Status Upcoming Covid-19 Vaccine () Next due on 08/06/2024 02/06/2024 Imm Admin: COVID-19 vaccine, age 12+ yr (MODERNA) 02/14/2023 Imm Admin: COVID-19 vaccine, age 12+ yr, 2022- season ([employer]) 12/28/2021 Imm Admin: COVID-19 vaccine, age 12+ yr, bivalent ([employer]) Only the first 3 history entries have been loaded, but more history exists. 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 Paresthesias Lumbosacral Neuritis Infrarenal Abdominal Aortic Aneurysm (Aaa) Without Rupture Hdl Deficiency Prostate Cancer (Hcc) Paroxysmal Atrial Fibrillation (Hcc) Cancer of Lower Lobe of Right Lung (Hcc) Postoperative Pain Stage 1 Mild Copd By Gold Classification (Hcc) Abscess of Lower Lobe of Right Lung Without Pneumonia (Hcc) Pleural Effusion, Left Atelectasis Pneumothorax Hearing Loss PAST MEDICAL HISTORY Diagnosis Date Abdominal aortic aneurysm without rupture Elevated PSA Hearing loss HTN (hypertension) Lumbosacral neuritis Malignant neoplasm of prostate (HCC) Other and unspecified hyperlipidemia Prostate cancer (HCC) 2020 xrt at [facility] [place] Smoker former quit 2021 Spinal stenosis of lumbar region with neurogenic claudication PAST SURGICAL HISTORY Procedure Laterality Date COLONOSCOPY 05/28/2008 HERNIA REPAIR HX age 20 PROSTATE BIOPSY HX 2020 REMOVAL OF LUNG,LOBECTOMY Right 11/15/2023 Robotic-assisted right lower lobectomy with right lower lobe bronchoplasty closure of airway and mediastinal and hilar lymph node dissection, intercostal and phrenic nerve block FAMILY HISTORY Problem Relation Age of Onset other (high blood pressure [Other]) Mother Diabetes Mother Hearing Loss Mother Prostate Cancer Other Social History Tobacco Use Smoking status: Former Current packs/day: 0.00 Average packs/day: 1 pack/day for 40.0 years (40.0 ttl pk-yrs) Types: Cigarettes Start date: 07/1981 Quit date: 07/2021 Years since quittin.8 Passive exposure: Past Smokeless tobacco: Never Substance Use Topics Alcohol use: Not Currently Alcohol/week: 6.0 standard drinks of alcohol Types: 6 Glasses of wine per week Drug use: No Prior to Admission medications as of 05/17/24 1525 Medication Sig Last Dose Taking amLODIPine (NORVASC) 5 mg tablet Take 1 tablet by mouth once daily. acetaminophen (TYLENOL) 325 mg tablet Take 2 tablets by mouth every 4 hours as needed for pain. Patient not taking: Reported on 05/17/2024 gabapentin (NEURONTIN) 300 mg capsule TAKE 2 CAPSULES BY MOUTH 3 TIMES A DAY lisinopril-hydroCHLOROthiazide (ZESTORETIC) 20-12.5 mg per tablet Take 1 tablet by mouth once daily. Patient should start on December 19, 2023. fluticasone-salmeterol (WIXELA INHUB) 250-50 mcg/dose inhaler Inhale 1 Puff as instructed two times a day. atorvastatin (LIPITOR) 20 mg tablet Take 1 tablet by mouth once daily. No medication comments found. ALLERGIES No Known Allergies Objective Pain Assessment: Vitals: There were no vitals taken for this visit. Diagnostic tests reviewed for today's visit: Lab Value Units Date High Low HB 13.4 g/dL 05/12/2024 17.0 13.0 HCT 39.6 % 05/12/2024 51.0 39.0 WBC 5.48 k/uL 05/12/2024 11.00 3.70 PLT 191 k/uL 05/12/2024 400 150 NA 139 mmol/L 05/12/2024 144 136 K 3.9 mmol/L 05/12/2024 5.1 3.7 GLUC 104 mg/dL 05/12/2024 99 74 BUN 9 mg/dL 05/12/2024 24 9 CREAT 0.59 mg/dL 05/12/2024 1.22 0.73 PTSEC 11.9 sec 05/10/2024 13.0 9.7 INR 1.1 no uni* 05/10/2024 1.3 0.9 APTT 28.7 sec 05/10/2024 32.4 23.0 ALT 23 U/L 05/10/2024 54 10 AST 20 U/L 05/10/2024 40 14 TBILI 0.6 mg/dL 05/10/2024 1.3 0.2 TSH No results within date range. Lab Value Units Date High Low HCGQT No results within date range. UHCG No results within date range. HCG, BODY* No results within date range. Lab Value Units Date High Low ABORHD No results within date range. ABSCREEN No results within date range. Hemoglobin A1C (%) Date Value 05/02/2023 6.1 03/14/2022 5.9 02/08/2021 6.0 01/01/2020 5.7 05/14/2018 5.9 08/17/2015 5.8 09/16/2011 5.4 Hemoglobin A1C (POCT) (%) Date Value 04/06/2017 5.9 Recent Results (from the past 8760 hours) XR CHEST 2V FRONTAL/LAT Collection Time: 05/17/24 2:22 PM Impression IMPRESSION: See result. [facility] Trans[facility] Date/Time: May 17 2024 3:17P Dictated by : QUAN JACQUES MD This examination was interpreted and the report reviewed and electronically signed by: QUAN JACQUES MD on May 17 2024 3:18PM EST XR CHEST 1V FRONTAL PORT Collection Time: 05/12/24 5:58 AM Impression IMPRESSION: Lines, Tubes, and Devices: Stable support lines and tubes. Lungs and Pleura: Scattered lung opacities and small effusions are not significantly changed. No pneumothorax. Cardiomediastinal silhouette: Stable cardiac silhouette. Agency Trainer: [facility] Transcribe Date/Time: May 12 2024 9:59A Dictated by : JURGEN ROY MD This examination was interpreted and the report reviewed and electronically signed by: JURGEN ROY MD on May 12 2024 10:00AM EST ECG COMPLETE Collection Time: 05/10/24 2:59 PM Impression ATRIAL FIBRILLATION NONSPECIFIC ST AND T WAVE ABNORMALITY PROLONGED QT INTERVAL OR TU FUSION, CONSIDER HYPOKALEMIA ABNORMAL ECG CT CHEST W IVCON Collection Time: 05/08/24 2:21 PM Impression IMPRESSION: 1. Postoperative changes of right lower lobectomy. Large new cystic space in the resection bed with areas of septations and smaller surrounding cystic spaces. Primary differential for this is a multiloculated pneumothorax or less likely a large bulla. 2. Stable right upper lobe spiculated nodule with cavitations. Agency Trainer: [facility] Transcribe Date/Time: May 11 2024 3:35P Dictated by : IVON DALTON MD This examination was interpreted and the report reviewed and electronically signed by: IVON DALTON MD on May 11 2024 3:46PM EST ECHO Collection Time: 10/16/23 2:52 PM Impression CONCLUSIONS: - Technically difficult exam due to lung interference. - Exam indication: Hypertension - The left ventricle is small. Left ventricular systolic function is normal. EF = 55 ? 5% (2D biplane) Normal left ventricular diastolic function. - The right ventricle is normal in size. Right ventricular systolic function is normal. - The visualized aorta is dilated with a maximal dimension of 4.2 cm. - Estimated right ventricular systolic pressure is likely underestimated due to a weak or incomplete tricuspid regurgitation signal and is, at least, 26 mmHg consistent with normal pulmonary artery pressures. Estimated right atrial pressure is 3 mmHg based on IVC assessment. - There are no significant valvular abnormalities. - The patient has not had a prior CC echocardiographic exam for comparison. * * * Final * * * Assessment No problem-specific Assessment AND Plan notes found for this encounter. ANESTHESIA FINDINGS: Intubation History: No history of difficult intubation Significant Anesthesia Considerations: none Airway History: No history of difficult airway Prepared for Surgery: optimally prepared for surgery. The Following Tests/Procedures Have Been Initiated: Orders Placed This Encounter mupirocin (BACTROBAN) 2 % ointment Sig: Apply a small amount in each nostril using a cotton swab twice the day before surgery and once the morning of surgery. Dispense: 22 g Refill: 0 Order Comments: Supply patient with Q-tips and instruction sheet ASA Class: 3 Planned Anesthetic: general I - PHYSICAL EVALUATION AIRWAY Patient intubated: No. Tracheostomy tube not present Mallampati: II. TM distance: >3 FB. Neck ROM: full ROM without neurological symptoms. Mouth opening: adequate. Short neck: no. Thick neck: no Krause present: yes (large krause) DENTAL Dentures, upper: complete. Dentures, lower: partial. II - ANESTHESIA PLAN ASA Score: 3 Anesthetic Plan: general Airway type: ETT Beta Cecilio Monitoring Plan Post Procedure Analgesic Plan Informed Consent Anesthetic risks, benefits, alternatives, personnel and consent discussed: yes. Patient / Responsible Constitution Party agrees to proceed: yes Patient / Surrogate agrees to blood products: Yes Discussed the possibility of lip / dental damage: yes Instructions Given to Patient: Instructions located in the after visit summary. Patient given verbal and written preop instructions and voices comprehension and compliance. Signature: Michelle Kemp MD Patient Name: Stevie Angeles Date: June 07, 2024 Time: 9:57 AM Pager/Contact #: CNOV Observed: 06/07/2024 11:20 AM Status: COMPLETED Source: [facility] Office Visit (THORMN) STEVIE ANGELES ([id number]) 1950 [address] [facility] Date Time Provider Department 06/07/24 11:20 AM PAULA ESCOBAR During your visit today, we recorded the following information about you: Temperature Pulse Respiration Blood pressure 98.6 degrees 75/minute 14/minute 124/80 Weight Height 76.5 kg 1.778 m Paula Escobar MD, PhD 06/17/2024 8:05 AM Signed [place] [address] [place] DEPARTMENT OF THORACIC AND CARDIOVASCULAR SURGERY NAME: STEVIE ANGELES CLINIC #: [id number] DATE: 06/07/2024 AGE: 73 PHYSICIAN: Paula Escobar M.D., Ph.D. I had the sincere pleasure of chatting with the patient today. He has a curious pneumatocele or loculated pneumothorax that is occurring at the base of his remnant right lung. This began after his radiotherapy was complete. I cannot tell whether it is a giant bulla/pneumatocele or there is a loculated pneumothorax. We will try to interrogate this in an operating room. We might use robotic instrumentation. There may be a thoracotomy involved or may be just video assistance. He understands risks, benefits, alternatives, and some personnel involved with this right lung procedure and that minimally invasive technologies will likely be utilized. He has consented to me and my resident team. From an anesthetic standpoint, a single-lumen tube should be placed. I would do quick bronchoscopy to assess the bronchial stump. After that, a double-lumen tube should be placed. Standard access for this type of operation should be obtained. Preoperative subcutaneous heparin should be given as well as antibiotics and good venous access. Paula Escobar M.D., Ph.D. SM:[id number] /[id number] Eliane Onofre RN 06/09/2024 11:20 AM Addendum CHART COPY DO NOT DISCARD . Patient here today for TCI visit. . Surgery Right chest exploration poss robotic, poss thoracotomy, poss lung resection scheduled for 06/19/2024. . Meds allergies reviewed. Latex Allergy: No Anticoag:No GLP1/SGLT2: none Immunosuppressants: none Medport: No Preoperative instructions; NPO after midnight night prior to surgery, Listerine after brushing teeth and Hibiclens shower, and Listerine after brushing teeth Patient verbalized understanding of instructions. . Last clinic note 05/17/2024 per Romina Bedolla C.N.P. 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 SBRT to RUL nodule 02/01/24. Large right pneumothorax PLAN: - return for TCI with Dr Escobar Rad/Onc 05/20/2024 Elias Goss MD ASSESSMENT AND PLAN: 73 year old man with: 1. Enlarging/hypermetabolic/cavitary RUL nodule c/w NSCLC, [id number], Stage IA3, s/p SBRT 02/01/24 [3400 cGy/1 fx] 2. Hx of SCCa of the RLL, s/p RA-right lower lobectomy/MLND 11/15/23 [2.4 cm focus of SCCa, margins-, 0/12 LN; pT1cN0 cM0] 3. Hx of adenocarcinoma of the prostate, s/p ADT/EBRT completed 01/15/21, PSA 0.08 ng/mL Mr. Angeles is doing well. Was to have a chest tube placed due to worsening pneumothorax, this was held for decision-making, possible VATS (per patient). CT 05/08/24 shows response at RUL nodule treated with SBRT on my review. He is to see Dr. Cantu on 05/22/24 (medical oncology) and Dr. Beltran on 06/13/24 (pulmonology). I asked he let my office know when his next CT is scheduled, so I may review results. Today's visit 06/07/2024: CXR: 06/07/2024 IMPRESSION: 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 . PFT: 05/08/2024 FEV1 (L) 2.77 2.02 3.47 1.82 65 1.80 0 DLCOunc (ml/min/mmHg) 24.73 14.80 34.67 16.24 65 6MW: 10/17/2023 Distance Walked (meters) Distance Walked (feet) Male Predicted Walk Distance (feet) Male Lower Limit of Normal (feet) Male % Predicted Total Duration Of The Stops (seconds) 297.18 975 1615.81 1113.81 60.3 -- Cardiac Studies: Nuclear Medicine Stress Test 11/09/2023 CONCLUSIONS: 1. SPECT Perfusion Study: Normal. 2. There is no scintigraphic evidence for inducible ischemia. 3. No evidence of scarred myocardium. 4. Left ventricle is normal in size. The left ventricle systolic function is normal. 5. Right ventricle is normal in size. The right ventricle systolic function is normal. 6. This is a low risk scan. Gated Stress IR Gated Rest IR LVEF % 65 69 EK05/10/2024 Ventricular Rate BPM [address] AND T WAVE ABNORMALITY PROLONGED QT INTERVAL OR TU FUSION, CONSIDER HYPOKALEMIA ABNORMAL ECG Clinical Staging: Risk, benefits, and alternatives discussed per Paula Escobar M.D. HANDP 06/07/[address] [employer] CCT and CXR Eliane Onofre RN PHYSICAL EXAM BP 124/80 Pulse 75 Temp (Src) 98.6 (Oral) Resp 14 Ht 5' 10 (1.78m) Wt 168 lb 9.3 oz (76.5kg) SpO2 97% BMI 24.19 kg/(m2). Constitutional: No distress HEENT: EOM's intact Resp: equal rise and fall of bilateral chest monahan Cardiovascular: Pulses Radial 2+ GI: Soft and Non-tender Integumentary: Warm Musculoskeletal: No deformities Neurological/Psychiatric: Oriented to time, place AND person Additional systems reviewed: No additional systems reviewed PATIENT EDUCATION The following was evaluated: Motivation To Learn: Interested Family/Significant Other Support: High - Very involved in pt care Cognitive Ability: Alert and oriented Patient Learns Best By: Multiple Methods The Following Influencing Factors Were Barriers To This Education Session: No barriers Sleeve Separator Present: Not Applicable The Following Physical Limitations Were Barriers To This Education Session: None Instruction Provided To: Patient AND Family Discipline: Nursing Learning Topic: Pre-op Instructions given Patient Evaluation: Verbalizes understanding Follow Up Plan: Patient/Family will call us with questions Supplemental Material Given: TCI Patient Instructions: Thoracic Surgery Teach completed, topic: hibiclens/listerine/bactroban Instructed By Eliane Onofre RN. In Department of THORACIC CLINIC. Paula Escobar MD, PhD 06/09/2024 11:20 AM Signed I have read and reviewed the documentation and agree. I wish to add the following findings which have been dictated and will be communicated back to the requesting physician. Paula Escobar MD, PhD [employer] Offbearer: Transcribed Clinic Note (marissa) ID: [id number] 06/07/2024 11:12 AM Author: PAULA ESCOBAR Signed by PAULA ESCOBAR MD, PhD on 06/17/2024 at 8:05 AM * * * This document replaces document [id number] * * * Document text: [place] [address] [place] DEPARTMENT OF THORACIC AND CARDIOVASCULAR SURGERY NAME: STEVIE ANGELES [facility] #: [id number] DATE: 06/07/2024 AGE: 73 PHYSICIAN: Paula Escobar M.D., Ph.D. I had the sincere pleasure of chatting with the patient today. He has a curious pneumatocele or loculated pneumothorax that is occurring at the base of his remnant right lung. This began after his radiotherapy was complete. I cannot tell whether it is a giant bulla/pneumatocele or there is a loculated pneumothorax. We will try to interrogate this in an operating room. We might use robotic instrumentation. There may be a thoracotomy involved or may be just video assistance. He understands risks, benefits, alternatives, and some personnel involved with this right lung procedure and that minimally invasive technologies will likely be utilized. He has consented to me and my resident team. From an anesthetic standpoint, a single-lumen tube should be placed. I would do quick bronchoscopy to assess the bronchial stump. After that, a double-lumen tube should be placed. Standard access for this type of operation should be obtained. Preoperative subcutaneous heparin should be given as well as antibiotics and good venous access. Paula Escobar M.D., Ph.D. :[id number] /[id number] Allergies As of Date: 06/07/2024 (No Known Allergies) Date Reviewed: 06/07/2024 Reviewed by: Geni James MA - Fully Assessed Reason for Visit: Pre-Op Exam [87] Primary Visit Diagnosis:Emphysematous bleb ([facility]) [J43.9] Other Visit Diagnoses:Chronic obstructive pulmonary disease, unspecified COPD type ([facility]) [J44.9] Paroxysmal atrial fibrillation ([facility]) [I48.0] Personal history of malignant neoplasm of bronchus and lung [Z85.118] Prescriptions as of 06/18/2024 - fluticasone-salmeterol (WIXELA INHUB) 250-50 mcg/dose inhaler Inhale 1 puff as instructed two times a day. - albuterol HFA (PROVENTIL HFA, VENTOLIN HFA) 90 mcg/actuation inhaler Inhale 2 puffs as instructed every 4 hours as needed. - mupirocin (BACTROBAN) 2 % ointment Apply a small amount in each nostril using a cotton swab twice the day before surgery and once the morning of surgery. - acetaminophen (TYLENOL) 325 mg tablet Take 2 tablets by mouth every 4 hours as needed for pain. - gabapentin (NEURONTIN) 300 mg capsule TAKE 2 CAPSULES BY MOUTH 3 TIMES A DAY - lisinopril-hydroCHLOROthiazide (ZESTORETIC) 20-12.5 mg per tablet Take 1 tablet by mouth once daily. Patient should start on December 19, 2023. - atorvastatin (LIPITOR) 20 mg tablet Take 1 tablet by mouth once daily. 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] 04/24/2023 Prostate cancer (HCC) [C61] 09/11/2023 Paroxysmal atrial fibrillation (HCC) [I48.0] 09/11/2023 Cancer of lower lobe of right lung (HCC) [C34.3*11/15/2023 Postoperative pain [G89.18] 11/16/2023 Stage 1 mild COPD by GOLD classification (HCC) *11/17/2023 Abscess of lower lobe of right lung without pne*11/17/2023 Pleural effusion, left [J90] 11/17/2023 Atelectasis [J98.11] 11/17/2023 Pneumothorax [J93.9] 05/10/2024 Hearing loss [H91.90] 05/10/2024 Encounter Status:Closed by PAULA ESCOBAR on 06/09/24 PROGRESS Observed: 06/07/2024 11:20 AM Status: COMPLETED Source: [facility] HNO ID: [id number] Author: RADHA BOWDEN RN Service: ? Author Type: Registered Nurse Type: Progress Notes Filed: 06/18/2024 09:23 Note Text: CHART COPY DO NOT DISCARD . Patient here today for TCI visit. . Surgery Right chest exploration poss robotic, poss thoracotomy, poss lung resection scheduled for 06/19/2024. . Meds allergies reviewed. Latex Allergy: No Anticoag:No GLP1/SGLT2: none Immunosuppressants: none Medport: No Preoperative instructions; NPO after midnight night prior to surgery, Listerine after brushing teeth and Hibiclens shower, and Listerine after brushing teeth Patient verbalized understanding of instructions. . Last clinic note 05/17/2024 per Romina Bedolla C.N.P. 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 SBRT to RUL nodule 02/01/24. Large right pneumothorax PLAN: - return for TCI with Dr Escobar Rad/Onc 05/20/2024 Elias Goss MD ASSESSMENT AND PLAN: 73 year old man with: 1. Enlarging/hypermetabolic/cavitary RUL nodule c/w NSCLC, [id number], Stage IA3, s/p SBRT 02/01/24 [3400 cGy/1 fx] 2. Hx of SCCa of the RLL, s/p RA-right lower lobectomy/MLND 11/15/23 [2.4 cm focus of SCCa, margins-, 0/12 LN; pT1cN0 cM0] 3. Hx of adenocarcinoma of the prostate, s/p ADT/EBRT completed 01/15/21, PSA 0.08 ng/mL Mr. Angeles is doing well. Was to have a chest tube placed due to worsening pneumothorax, this was held for decision-making, possible VATS (per patient). CT 05/08/24 shows response at RUL nodule treated with SBRT on my review. He is to see Dr. Cantu on 05/22/24 (medical oncology) and Dr. Beltran on 06/13/24 (pulmonology). I asked he let my office know when his next CT is scheduled, so I may review results. Today's visit 06/07/2024: CXR: 06/07/2024 IMPRESSION: 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 . PFT: 05/08/2024 FEV1 (L) 2.77 2.02 3.47 1.82 65 1.80 0 DLCOunc (ml/min/mmHg) 24.73 14.80 34.67 16.24 65 6MW: 10/17/2023 Distance Walked (meters) Distance Walked (feet) Male Predicted Walk Distance (feet) Male Lower Limit of Normal (feet) Male % Predicted Total Duration Of The Stops (seconds) 297.18 975 1615.81 1113.81 60.3 -- Cardiac Studies: Nuclear Medicine Stress Test 11/09/2023 CONCLUSIONS: 1. SPECT Perfusion Study: Normal. 2. There is no scintigraphic evidence for inducible ischemia. 3. No evidence of scarred myocardium. 4. Left ventricle is normal in size. The left ventricle systolic function is normal. 5. Right ventricle is normal in size. The right ventricle systolic function is normal. 6. This is a low risk scan. Gated Stress IR Gated Rest IR LVEF % 65 69 EK05/10/2024 Ventricular Rate BPM [address] AND T WAVE ABNORMALITY PROLONGED QT INTERVAL OR TU FUSION, CONSIDER HYPOKALEMIA ABNORMAL ECG Clinical Staging: Risk, benefits, and alternatives discussed per Paula Escobar M.D. HANDP 06/07/[address] [employer] CCT and CXR Eliane Onofre RN PHYSICAL EXAM BP 124/80 Pulse 75 Temp (Src) 98.6 (Oral) Resp 14 Ht 5' 10 (1.78m) Wt 168 lb 9.3 oz (76.5kg) SpO2 97% BMI 24.19 kg/(m2). Constitutional: No distress HEENT: EOM's intact Resp: equal rise and fall of bilateral chest monahan Cardiovascular: Pulses Radial 2+ GI: Soft and Non-tender Integumentary: Warm Musculoskeletal: No deformities Neurological/Psychiatric: Oriented to time, place AND person Additional systems reviewed: No additional systems reviewed PATIENT EDUCATION The following was evaluated: Motivation To Learn: Interested Family/Significant Other Support: High - Very involved in pt care Cognitive Ability: Alert and oriented Patient Learns Best By: Multiple Methods The Following Influencing Factors Were Barriers To This Education Session: No barriers Sleeve Separator Present: Not Applicable The Following Physical Limitations Were Barriers To This Education Session: None Instruction Provided To: Patient AND Family Discipline: Nursing Learning Topic: Pre-op Instructions given Patient Evaluation: Verbalizes understanding Follow Up Plan: Patient/Family will call us with questions Supplemental Material Given: TCI Patient Instructions: Thoracic Surgery Teach completed, topic: hibiclens/listerine/bactroban Instructed By Eliane Onofre RN. In Department of THORACIC CLINIC. PROGRESS Observed: 06/07/2024 10:30 AM Status: COMPLETED Source: [facility] HNO ID: [id number] Author: ERMA JIN RT(R) Service: Radiology Author Type: Technologist Type: Progress Notes Filed: 06/07/2024 09:55 Note Text: Radiology Service Progress Note PATIENT NAME: Stevie Angeles DATE OF SERVICE: June 07, 2024 TIME: 9:55 AM PATIENT IDENTITY VERIFICATION COMPLETED USING TWO (2) IDENTIFIERS: Name and Date of confirmed by patient verbally. FALL SCREENING: Has the patient had 2 falls in the last year or 1 fall with injury or currently using an Ambulatory Assistive Device (Walker, Cane, Wheelchair, Crutches, etc.)? No PATIENT GENDER DATA: Assigned male at PATIENT RELEVANT IMPLANT DATA REVIEWED: Not Applicable PATIENT PRESENTS WITH AN IMPLANTABLE OR ATTACHED PAUNCH TRIMMER: No RADIOLOGY DEPARTMENT: General X-ray: Exam(s) Completed: Chest X-Ray PERIPHERAL IV DATA: Not applicable SIGNED BY: RT ALEXANDRA(R) June 07, 2024 9:55 AM CBC W AUTO DIFF BLD Collected: 06/07/2024 10:01 AM S tatus: F Source: [facility] Order Comment: Specimen Type : BLOOD SPECIMEN Ordering Facility: [facility] Address: [address] [place] [address] TYPE CODE TESTS RESULT OUT OF RANGE REFERENCE UNITS LAB 6690-2(LOINC) WBC # Bld Auto 6.98 3.70-11.00 k/uL LAB 789-8(LOINC) RBC # Bld Auto 4.95 4.20-6.00 m/ uL LAB 718-7(LOINC) Hgb Bld-mCnc 15.9 13.0-17.0 g/dL LAB 4544-3(LOINC) Hct VFr Bld Auto 49.1 39.0-51.0 % LAB 787-2(LOINC) MCV RBC Auto 99.2 80.0-100.0 fL LAB 785-6(LOINC) MCH RBC Qn Auto 32.1 26.0-34.0 p g LAB 786-4(LOINC) MCHC RBC Auto-mCnc 32.4 30.5-36.0 g/dL LAB 01298-1([facility]) RDW RBC-Rto 14.4 11.5-15.0 % LAB 777-3([facility]) Platelet # Bld Auto 244 150-400 k/uL LAB 02193-0([facility]) PMV Bld Auto 8.9 Low 9.0-12.7 fL LAB 770-8([facility]) Neutrophils/leuk NFr Bld Auto 66.8 % LAB 751-8([facility]) Neutrophils # Bld Auto 4.66 1.45-7.50 k/uL LAB 736-9[facility] [facility]) Lymphocytes/leuk NFr Bld Auto 17.5 % LAB 731-0([facility]) Lymphocytes # Bld Auto 1.22 1.00-4.00 k/uL LAB 5905-5([facility]) Monocytes/leuk NFr Bld Auto 11.3 % LAB 742-7([facility]) Monocytes # Bld Auto 0.79 <0.87 k/uL LAB 713-8([facility]) Eosinophil/leuk NFr Bld Auto 2.4 % LAB 711-2([facility]) Eosinophil # Bld Auto 0.17 <0.46 k/uL LAB 706-2([facility]) Basophils/leuk NFr Bld Auto 1.6 % LAB 704-7([facility]) Basophils # Bld Auto 0.11 High <0.11 k/uL LAB 87284-3([facility]) Imm Granulocytes/fidleia k NFr Bld Auto 0.4 % LAB 77013-3([facility]) Imm Granulocytes # Bld Auto 0.03 <0.10 k/uL LAB 62678-2([facility]) nRBC/100 WBC Bld-Rto 0.0 /100 WBC LAB 771-6([facility]) nRBC # Bld Auto <0.01 <0.01 k/u L LAB 13547-4([facility]) Differential method Bld Auto Performed By: #### 44298-3 # ### [facility] CLIA [id number] [address] [place] [address] OF [facility] TYPE AND SCREEN,30 DAY Collected: 06/07 10:01 AM Status: F Source: [facility] Comment: Specimen Type : BLOOD SPECIMEN Ordering Facility: [facility] Address: [address] [place] [address] TYPE CODE TESTS RESULT OUT OF RANGE REFERENCE UNITS LAB [id number] ABO O LAB [id number] RH Positive LAB [id number] ANTIBODY SCREEN Negative Performed By: #### [id number] ## ## CC [facility] BLOOD B[facility] CLIA [id number] [address] [place] [address] [place] STAPHYLOCOCCUS AUREUS AND MR SA SCREEN, PCR, NASAL Collected: 06/07/2024 10:01 AM Status: F Source: [facility] Comment: Specimen Type : SWAB Ordering Facility: [facility] Address: [address] [place] [address] TYPE CODE TESTS RESULT OUT OF RANGE REFERENCE UNITS LAB 36031-6([facility]) SA+MRSA Pnl Nose WENDY+probe Not Detected Not Detected Performed By: #### SAPCR ### # [facility] CLIA [id number] [address] [place] [address] [place] COMP METAB 2000 PNL SERPL Collected: 10:01 AM Status: F Source: [facility] Comment: Specimen Type : BLOOD SPECIMEN Ordering Facility: [facility] Address: [address] [place] [address] TYPE CODE TESTS RESULT OUT OF RANGE REFERENCE UNITS LAB 2885-2(LOINC) Prot SerPl-mCnc 7.4 6.3-8.0 g/dL LAB 1751-7(LOINC) Albumin SerPl-mCnc 4.6 3.9-4.9 g/dL LAB 38768-6(LOINC) Calcium SerPl-mCnc 10.1 8.5-10.2 mg/dL LAB 1975-2(LOINC) Bilirub SerPl-mCnc 0.7 0.2-1.3 mg/dL LAB 6768-6(LOINC) ALP SerPl-cCnc 85 38-113 U/L LAB 1920-8(LOINC) AST SerPl-cCnc 19 14-40 U/L LAB 1742-6(LOINC) ALT SerPl-cCnc 24 10-54 U/L LAB 2345-7(LOINC) Glucose SerPl-mCnc 127 High 74-99 mg/dL Result Comment: The [place] [employer] (ADA) provides guidance for cutoff values for fasting glucose and random glucose. The ADA defines fasting as no caloric intake for at least 8 hours. Fasting plasma glucose results between 100 to 125 mg/dL indicate increased risk for diabetes (prediabetes). Fasting plasma glucose results greater than or equal to 126 mg/dL meet the criteria for diagnosis of diabetes. In the absence of unequivocal hyperglycemia, results should be confirmed by repeat testing. In a patient with classic symptoms of hyperglycemia or hyperglycemic crisis, random plasma glucose results greater than or equal to 200 mg/dL meet the criteria for diagnosis of diabetes. Reference: Standards of Medical Care in Diabetes 2016, [employer]. Diabetes Care. 2016.39(Suppl 1). LAB 3094-0(LOINC) BUN SerPl-mCnc 6 Low 9-24 mg/ dL LAB 2160-0(LOINC) Creat SerPl-mCnc 0.55 Low 0.73-1.22 mg/dL LAB 2951-2(LOINC) Sodium SerPl-sCnc 140 136-144 mmol/L LAB 2823-3(LOINC) Potassium SerPl-sCnc 4.5 3.7-5.1 mmol/L LAB 2075-0(LOINC) Chloride SerPl-sCnc 101 98-107 mmol/L LAB 2028-9(LOINC) CO2 SerPl-sCnc 28 22-30 mmo l/L LAB 37986-2(LOINC) Anion Gap SerPl-sCnc 11 8-15 mmol/L LAB 49358-8(LOINC) Creatinine + eGFR Pnl SerPlBld 106 >=60 mL/min/1 .73m??? Result Comment: Estimated Gl omerular Filtration Rate (eGFR) is calculated using the 2020 CKD-EPI creatinine equation. This equation utilizes serum creatinine, sex, and age as parameters. The creatinine assay has traceable calibration to isotope dilution-mass spectrometry. Refer to KDIGO guidelines for clinical interpretation. In patients with unstable renal function, e.g. those with acute kidney injury, the eGFR may not accurately reflect actual GFR. Performed By: #### 87612-5 # ### [facility] CLIA [id number] [address] [place] [address] [place] PT PNL PPP Collected: 10:01 AM Status: F Source: [facility] Order Comment: Specimen Type : BLOOD SPECIMEN Ordering Facility: [facility] Address: [address] [place] [address] TYPE CODE TESTS RESULT OUT OF RANGE REFERENCE UNITS LAB 5902-2(LOINC) Prothrombin time 11.5 9.7-13.0 sec LAB 6301-6(LOINC) INR PPP 1.1 0.9-1.3 Result Comment: Vitamin K An tagonist (VKA) Therapeutic Range: INR 2 to 3 (Target INR of 2.5) Note: For patients treated with VKA drugs, such as warfarin, the [employer] 2012 Guideline recommends a therapeutic INR range of 2 to 3 (target INR of 2.5). This recommendation includes high-risk patients with antiphospholipid syndrome with previous arterial or venous thromboembolism, current-generation mechanical or bioprosthetic aortic heart valve replacement. Note: Patients with mechanical aortic valve replacement and additional risk factors for thromboembolic events (atrial fibrillation, previous thromboembolism, LV dysfunction, hypercoagulable conditions) or an older generation mechanical AVR (i.e., ball in-Cage) or any mechanical MVR should have a INR therapeutic range of 2.5 to 3.5 (target INR of 3). Etienne FRANCIS, et al. Chest 2012, 141:7S-47S Vicki RA, et al. [facility] 2017, 70: 252-289 Performed By: #### 14525-3, 60983-8 #### [facility] CLIA [id number] [address] [place], [place] [id number] [place] APTT PPP Collected: 5 10:01 AM Status: F Source: [facility] Order Comment: Specimen Type : BLOOD SPECIMEN Ordering Facility: [facility] Address: [address] [place] [address] TYPE CODE TESTS RESULT OUT OF RANGE REFERENCE UNITS LAB 83210-6(LOINC) aPTT PPP 27.9 23.0-32.4 sec Performed By: #### 53493-1, 95754-3 #### [facility] CLIA [id number] [address] [place] [address] STATES OF [facility] XR CHEST 2V FRONTAL/LAT Observed: 2024 9:57 AM Status: F Source: [facility] * * *Final Report* * * DATE OF EXAM: Jun 07 2024 9:57AM JIX 5291 - XR CHEST 2V FRONTAL/LAT / PROCEDURE REASON: multiple diagnoses * * * * Physician Interpretation * * * * EXAMINATION: CHEST RADIOGRAPH (2 VIEW FRONTAL and LATERAL) CLINICAL HISTORY: Hydropneumothorax Pre-procedure lab exam MQ: [id number] EXAM DATE/TIME: 06/07/2024 9:57 AM COMPARISON: Chest radiograph(s) dated 05/17/24 CT CHEST 05/08/2024 RESULT: Lines, tubes, and devices: None. Lungs and pleura: Status post right lower lobectomy, with similar appearance of loculated right basilar pneumothorax. Stable right upper lobe nodular opacity. Right middle lobe granulomata. Cardiomediastinal silhouette: Stable cardiomediastinal silhouette. Bones and soft tissues: Degenerative changes are present within the thoracic spine. IMPRESSION: 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 Agency Trainer: [facility] Transcribe Date/Time: Jun 07 2024 1:52P Dictated by : JEANETTE MENJIVAR MD This examination was interpreted and the report reviewed and electronically signed by: POPEYE RODRIGUEZ MD on Jun 07 2024 4:23PM EST [id number] PROGRESS Observed: 06/07/2024 12:00 AM Status: COMPLETED Source: [facility] HNO ID: [id number] Author: PAULA ESCOBAR MD, PhD Service: Thoracic Surgery Author Type: Physician Type: Progress Notes Filed: 06/17/2024 08:05 Note Text: [place] [address] [place] DEPARTMENT OF THORACIC AND CARDIOVASCULAR SURGERY NAME: STEVIE ANGELES [facility] #: [id number] DATE: 06/07/2024 AGE: 73 PHYSICIAN: Paula Escobar M.D., Ph.D. I had the sincere pleasure of chatting with the patient today. He has a curious pneumatocele or loculated pneumothorax that is occurring at the base of his remnant right lung. This began after his radiotherapy was complete. I cannot tell whether it is a giant bulla/pneumatocele or there is a loculated pneumothorax. We will try to interrogate this in an operating room. We might use robotic instrumentation. There may be a thoracotomy involved or may be just video assistance. He understands risks, benefits, alternatives, and some personnel involved with this right lung procedure and that minimally invasive technologies will likely be utilized. He has consented to me and my resident team. From an anesthetic standpoint, a single-lumen tube should be placed. I would do quick bronchoscopy to assess the bronchial stump. After that, a double-lumen tube should be placed. Standard access for this type of operation should be obtained. Preoperative subcutaneous heparin should be given as well as antibiotics and good venous access. Paula Escobar M.D., Ph.D. SM:[id number] /[id number] PROGRESS Observed: 05/25/2024 12:16 PM Status: COMPLETED Source: [facility] HNO ID: [id number] Author: MATA MUNSON RN Service: ? Author Type: Registered Nurse Type: Progress Notes Filed: 05/25/2024 12:19 Note Text: Confirmed surgical date of for with [facility] on 06/07/2024 with CXR, Lab tests. Advised of expected 5-day hospital stay with no current visiting restrictions with face mask required in patient care areas. Instructed to stop any OTC vitamins, supplements, cold, and allergy or Motrin/ibuprofen meds starting 7 days prior to surgery. Right chest exploration poss robotic, poss thoracotomy, poss lung resection c=1.5 OR 06/19/2024 [facility] on 06/07/2024 with CXR, Lab tests. Advised of expected 5-day hospital stay with no current visiting restrictions with face mask required in patient care areas. Instructed to stop any OTC vitamins, supplements, cold, allergy, or Motrin/ibuprofen meds starting 7 days prior to surgery. Mata Kashif RN Thoracic NPM CNPN Observed: 05/22/2024 12:00 AM Status: COMPLETED Source: [facility] Telephone (HEMMED) JACQUI ANGELESYDE ([id number]) 1950 M DEF Date Time Provider Department 05/22/24 KEVIN CANTU During your visit today, we recorded the following information about you: Debbie Castro 05/22/2024 10:42 AM Signed Patient called to cancel his appointment today 05/[address] Cantu because he is having another lung surgery in the next couple of weeks so there is no point in meeting with Dr. Cantu because no one has any answers yet. He will rescheduled next month. Thank you, Flo Lazaro RN 05/22/2024 11:14 AM Signed Called pt and he states that vascular is going to be doing a surgery in his chest. He is waiting for the call now to schedule. He declined to schedule apt at this time with this office. He will call once surgery is completed. Allergies As of Date: 05/22/2024 (No Known Allergies) Date Reviewed: 05/17/2024 Reviewed by: Glenny Parisi MA - Fully Assessed Reason for Visit: Appointment [186] Prescriptions as of 05/22/2024 - acetaminophen (TYLENOL) 325 mg tablet Take 2 tablets by mouth every 4 hours as needed for pain. - gabapentin (NEURONTIN) 300 mg capsule TAKE 2 CAPSULES BY MOUTH 3 TIMES A DAY - lisinopril-hydroCHLOROthiazide (ZESTORETIC) 20-12.5 mg per tablet Take 1 tablet by mouth once daily. Patient should start on December 19, 2023. - amLODIPine (NORVASC) 5 mg tablet Take 1 tablet by mouth once daily. Patient should start on December 19, 2023. - fluticasone-salmeterol (WIXELA INHUB) 250-50 mcg/dose inhaler Inhale 1 Puff as instructed two times a day. - atorvastatin (LIPITOR) 20 mg tablet Take 1 tablet by mouth once daily. 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] 04/24/2023 Prostate cancer (HCC) [C61] 09/11/2023 Paroxysmal atrial fibrillation (HCC) [I48.0] 09/11/2023 Cancer of lower lobe of right lung (HCC) [C34.3*11/15/2023 Postoperative pain [G89.18] 11/16/2023 Stage 1 mild COPD by GOLD classification (HCC) *11/17/2023 Abscess of lower lobe of right lung without pne*11/17/2023 Pleural effusion, left [J90] 11/17/2023 Atelectasis [J98.11] 11/17/2023 Pneumothorax [J93.9] 05/10/2024 Hearing loss [H91.90] 05/10/2024 Encounter Status:Closed by FLO SEAY on 05/22/24 PROGRESS Observed: 05/20/2024 3:00 PM Status: COMPLETED Source: [facility] ID: [id number] Author: ELIAS GOSS MD Service: ? Author Type: Physician Type: Progress Notes Filed: 05/20/2024 14:19 Note Text: I have communicated my name and active licensure. The patient's identity and physical location were verified at the time of this visit. Either the patient or their legal claims service representative has been informed of the risks and benefits of -- and alternatives to -- treatment through a remote evaluation and consents to proceed with the evaluation remotely. Radiation Oncology - Follow Up Note PATIENT NAME: Stevie Angeles PATIENT DIAGNOSIS: 73 year old man with: Enlarging/hypermetabolic/cavitary RUL nodule c/w NSCLC, [id number], Stage IA3, s/p SBRT 02/01/24 [3400 cGy/1 fx] Hx of SCCa of the RLL, s/p RA-right lower lobectomy/MLND 11/15/23 [2.4 cm focus of SCCa, margins-, 0/12 LN; pT1cN0 cM0] Hx of adenocarcinoma of the prostate, s/p ADT/EBRT completed 01/15/21, PSA 0.08 ng/mL Thoracic surgeon: Paula Escobar MD, PhD INTERVAL HISTORY: Mr. Angeles has a history of prostate cancer, diagnosed with biopsy on 09/24/20 (Gl 3+4=7, 8/12 cores+), iPSA 7.52 ng/mL, CT A/P 09/08/20 - no metastasis (4.3 cm infrarenal AAA w/o dissection). He was treated with Lupron (45 mg inj 11/05/20) and EBRT (7000 cGy/28 fx, completed 01/15/21, Dr. Neely). Most recent PSA is 0.08 ng/mL. He was diagnosed with SCCa of the RUL, managed with robotic-assisted right lower lobectomy/RLL bronchoplasty closure, mediastinal/hilar LND on 11/15/23 (Dr. Escobar). Pathology showed a 2.4 cm focus of SCCa, margins-, 0/12 LN; pT1cN0 cM0). He was referred for SBRT to a RUL nodule (2 x 1.4 cm on 12/09/23 post-op CT, cavitary, enlarging compared to 05/17/23 CTA, SUV 10.3 06/19/23 PET/CT; not biopsied). PFTs 07/04/23 showed FEV1 119%, DLCO 93%. SBRT was completed on 02/01/24. He reported having had some fatigue, but no pain. CT chest on 05/08/24 showed post-op changes at the RLL, large, new cystic space in the resection bed with areas of septations and smaller surrounding cystic spaces - ddx multiloculated pneumothorax or less likely bulla, stable RUL spiculated nodule with cavitations (reduced in size on my review). He was hospitalized 05/10/24 - 05/12/24, however chest tube placement was not performed. ALLERGIES No Known Allergies MEDICATIONS: lisinopril-hydroCHLOROthiazide (ZESTORETIC) 20-12.5 mg per tablet Take 1 tablet by mouth once daily. Patient should start on December 19, 2023. metoprolol tartrate, short acting, (LOPRESSOR) 25 mg tablet Take 1 tablet by mouth two times a day. For prevention of atrial fibrillation after thoracic surgery, stop after 30 days then resume your normal blood pressure medication (Patient not taking: Reported on 12/19/2023) guaiFENesin (MUCINEX) 600 mg 12 hr tablet Take 1 tablet by mouth every 12 hours. (Patient not taking: Reported on 12/19/2023) amLODIPine (NORVASC) 5 mg tablet Take 1 tablet by mouth once daily. Patient should start on December 19, 2023. fluticasone-salmeterol (WIXELA INHUB) 250-50 mcg/dose inhaler Inhale 1 Puff as instructed two times a day. atorvastatin (LIPITOR) 20 mg tablet Take 1 tablet by mouth once daily. gabapentin (NEURONTIN) 300 mg capsule TAKE 2 CAPSULES BY MOUTH 3 TIMES A DAY PHYSICAL EXAM: Deferred - telephone visit ASSESSMENT AND PLAN: 73 year old man with: 1. Enlarging/hypermetabolic/cavitary RUL nodule c/w NSCLC, [id number], Stage IA3, s/p SBRT 02/01/24 [3400 cGy/1 fx] 2. Hx of SCCa of the RLL, s/p RA-right lower lobectomy/MLND 11/15/23 [2.4 cm focus of SCCa, margins-, 0/12 LN; pT1cN0 cM0] 3. Hx of adenocarcinoma of the prostate, s/p ADT/EBRT completed 01/15/21, PSA 0.08 ng/mL Mr. Angeles is doing well. Was to have a chest tube placed due to worsening pneumothorax, this was held for decision-making, possible VATS (per patient). CT 05/08/24 shows response at RUL nodule treated with SBRT on my review. He is to see Dr. Cantu on 05/22/24 (medical oncology) and Dr. Beltran on 06/13/24 (pulmonology). I asked he let my office know when his next CT is scheduled, so I may review results. I spent 10 minutes in the visit in counseling / coordination of care. Signed by: Elias Goss MD cc: MD Kevin Nicholas MD Daniel Raymond, MD CNOV Observed: 05/17/2024 3:30 PM Status: COMPLETED Source: [facility] Office Visit (THORMN) STEVIE ANGELES ([id number]) 1950 [facility] Date Time Provider Department 05/17/24 3:30 PM ROMINA BEDOLLA During your visit today, we recorded the following information about you: Temperature Pulse Blood pressure Weight 98.5 degrees 82/minute 110/73 77 kg Height 1.778 m Romina Bedolla APRN.PROGRAM SUPPORT ASSISTANT 05/17/2024 4:36 PM Signed Part of this note was copied from previous note, all content has been individually reviewed, updated as necessary, and thoroughly reviewed. [facility] - OUTPATIENT THORACIC SURGERY CLINIC NOTE PT NAME: Stevie Angeles [facility] NO: [id number] THORACIC SURGEON: Paula Escobar M.D. 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 - Extensive post-obstructive changes with acute and organizing bronchopneumonia with suppurative exudate and microabscess formation. - Seven hilar/peribronchial lymph nodes, negative for tumor (0/7). - Vascular margin negative for tumor. B. Lymph node, level 9R, excision: - Negative for tumor (0/1). C. Lymph node, level 8R, excision: - Negative for tumor (0/1). D. Lymph node, level 8R, excision: - Negative for tumor (0/1). Few giant cells. E. Lymph node, level 10R, excision: - Negative for tumor (0/1). F. Lymph node, level 11R, excision: - Negative for tumor (0/1). G. Lung, additional airway, excision: - Keratinizing squamous cell carcinoma. - Bronchial margin negative for tumor Diagnosis Comment A. Selected slides from part A (including the inked margin) were reviewed at the [facility] thoracic pathology consensus conference on 11/23/23. Dr. Fauzia Oseguera, Dr. Alexis Altman, Dr. Fitch and Dr. Romina Bryan were present and concurred with this interpretation. The status of the margins was discussed with Dr. Escobar by email on 11/23/23 and discussed at the consensus conference. Because of the extensive nature of the suppurative process, margin assessment is difficult. G. The final bronchial margin is negative for tumor. Block for additional Biomarkers/Molecular studies A7 Synoptic Report LUNG 8th Edition - Protocol posted: 11/17/2021LUNG: RESECTION - All Specimens SPECIMEN Procedure Lobectomy Specimen Laterality Right TUMOR Tumor Focality Single focus Tumor Site Lower lobe of lung Tumor Size Total Tumor Size (size of entire tumor) Greatest Dimension (Centimeters): 2.5 cm Additional Dimension (Centimeters) 2.5 cm 1.8 cm Histologic Type Invasive squamous cell carcinoma, keratinizing Histologic Grade G2, moderately differentiated Spread Through Air Spaces (ROBIN) Not identified Visceral Pleura Invasion Not identified Direct Invasion of Adjacent Structures Not applicable (no adjacent structures present) Treatment Effect No known presurgical therapy Lymphovascular Invasion Not identified MARGINS Margin Status for Invasive Carcinoma Due to extensive suppuration, it is unclear whether the inked edge represents a true hilar soft tissue or parenchymal margin; discussed with Dr. Escobar on 11/23/23. The bronchial and vascular margins are negative. Margin Status for Non-Invasive Tumor Not applicable REGIONAL LYMPH NODES Lymph Node(s) from Prior Procedures No known prior lymph node sampling performed Regional Lymph Node Status All regional lymph nodes negative for tumor Number of Lymph Nodes Examined 12 Lan Site(s) Examined 8R: Para-esophageal (below patti) 9R: Pulmonary ligament 10R: Hilar 11R: Interlobar Right: hilar/peribronchial PATHOLOGIC STAGE CLASSIFICATION (pTNM, AJCC 8th Edition) Reporting of pT, pN, and (when applicable) pM categories is based on information available to the pathologist at the time the report is issued. As per the AJCC (Chapter 1, 8th Ed.) it is the managing physician?s responsibility to establish the final pathologic stage based upon all pertinent information, including but potentially not limited to this pathology report. pT Category pT1c pN Category pN0 ADDITIONAL FINDINGS Additional Findings Inflammation: Acute and organizing bronchopneumonia Post-obstructive changes REASON FOR VISIT: Follow up after recent hospitalization HPI: Stevie Angeles is a 73 year old male ex-smoker 40 pack years (quit 2021) with history of prostate cancer and squamous cell skin cancer, who was found to have lung nodules on surveillance of known AAA. CTA chest 05/17/23 revealed nodular opacification in the right lower lobe with confluent appearance near hilum. PET/CT 06/19/23 showed intensive uptake associated with the 1.5 x 2.2 cm RUL lesion (SUV 10.3), medial right lower lobe solid lesion with groundglass extension (SUV 10) and mild uptake with prominent paratracheal node (SUV 2.2). Transbronchial biopsy 06/20/23 non-diagnostic and surveillance CT scan showed further enlargement of known RLL and RUL lesions. Transbronchial biopsy/EBUS repeated 09/19/23, biopsy of RLL lesion showed squamous cell carcinoma (lymph node stations 11RS and 11RI were neg). Case discussed at Tumor Board, decision was for upfront resection with consideration of adjuvant therapy once final pathology identified. On 11/15/23 he underwent Robotic-assisted right lower lobectomy with right lower lobe bronchoplasty closure of airway and mediastinal and hilar lymph node dissection, intercostal and phrenic nerve block by Dr Escobar. Noted an abscess. He was discharged 11/19/23. He had SBRT to right upper lobe nodule 02/01/24. PHYSICAL EXAM: VITAL SIGNS: BP 110/73 Pulse 82 Temp 36.9 ?C (98.5 ?F) (Oral) Ht 177.8 cm (5' 10) Wt 77 kg (169 lb 11.2 oz) SpO2 96% BMI 24.35 kg/m? Room air 174 lb Incision location: Right Thoracoport sites and Right Old chest tube sites Incision Assessment: per patient-Well approximated and no drainage, swelling, erythema or warmth Drain/Tubes: N/A GENERAL no acute distress alert and oriented x3 HEENT normocephalic, head midline, oral mucous membranes moist HEART regular rate and rhythm S1-S2 normal, no murmur LUNGS clear to auscultation bilaterally, diminished right baseno rhonchi rales or wheezing ABDOMEN soft nontender, nondistended. Bowel sounds active x 4 quadrants EXTREMITIES no clubbing, cyanosis or edema MUSCULOSKELETAL gait within normal limits SKIN no rashes or petechiae IMAGING/TESTS: CT Chest 05/08/24: IMPRESSION: 1. Postoperative changes of right lower lobectomy. Large new cystic space in the resection bed with areas of septations and smaller surrounding cystic spaces. Primary differential for this is a multiloculated pneumothorax or less likely a large bulla. 2. Stable right upper lobe spiculated nodule with cavitations. CXR 05/17/2024 RESULT: Lines, tubes, and devices: None. Lungs and pleura: Unchanged loculated right hydropneumothorax and bibasilar opacities. Postsurgical change in the right lung. Cardiomediastinal silhouette: Stable cardiomediastinal silhouette. Bones and soft tissues: Unremarkable. INTERVAL HISTORY: Stevie Angeles returns to clinic today following recent hospitalization. He denies any cough, wheeze or SOB. CXR shows large right base hyropneumothorax. Dr Escobar is aware and states he wishes to bring Mr Angeles back for right chest exploration with possible robotic, possible thoracotomy, possible lung resection. Dr Escobar's NPM will reach out to Mr Angeles with the surgical date which will most likely be in a month. 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 SBRT to RUL nodule 02/01/24. Large right pneumothorax PLAN: - return for TCI with Dr Dl Bedolla APRN.PROGRAM SUPPORT ASSISTANT Referring Provider: JERRY GIRALDO [[id number]] Allergies As of Date: 05/17/2024 (No Known Allergies) Date Reviewed: 05/17/2024 Reviewed by: Glenny Parisi MA - Fully Assessed Primary Visit Diagnosis:Malignant neoplasm of lower lobe of right lung (HCC) [C34.31] Other Visit Diagnosis:Pneumothorax on right [J93.9] Prescriptions as of 05/20/2024 - acetaminophen (TYLENOL) 325 mg tablet Take 2 tablets by mouth every 4 hours as needed for pain. - gabapentin (NEURONTIN) 300 mg capsule TAKE 2 CAPSULES BY MOUTH 3 TIMES A DAY - lisinopril-hydroCHLOROthiazide (ZESTORETIC) 20-12.5 mg per tablet Take 1 tablet by mouth once daily. Patient should start on December 19, 2023. - amLODIPine (NORVASC) 5 mg tablet Take 1 tablet by mouth once daily. Patient should start on December 19, 2023. - fluticasone-salmeterol (WIXELA INHUB) 250-50 mcg/dose inhaler Inhale 1 Puff as instructed two times a day. - atorvastatin (LIPITOR) 20 mg tablet Take 1 tablet by mouth once daily. 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 Follow-up and Disposition History for Encounter Date Provider Department Center 05/17/2024 [id number]-ASTPEROMINA BEDOLLA Encounter Status:Closed by ROMINA BEDOLLA on 05/17/24 PROGRESS Observed: 05/17/2024 2:32 PM Status: COMPLETED Source: [facility] HNO ID: [id number] Author: ROMINA BEDOLLA APRN.PROGRAM SUPPORT ASSISTANT Service: ? Author Type: Nurse Practitioner Type: Progress Notes Filed: 05/17/2024 16:36 Note Text: Part of this note was copied from previous note, all content has been individually reviewed, updated as necessary, and thoroughly reviewed. [facility] - OUTPATIENT THORACIC SURGERY CLINIC NOTE PT NAME: [facility] NO: [id number] THORACIC SURGEON: Paula Escobar M.D. 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 - Extensive post-obstructive changes with acute and organizing bronchopneumonia with suppurative exudate and microabscess formation. - Seven hilar/peribronchial lymph nodes, negative for tumor (0/7). - Vascular margin negative for tumor. B. Lymph node, level 9R, excision: - Negative for tumor (0/1). C. Lymph node, level 8R, excision: - Negative for tumor (0/1). D. Lymph node, level 8R, excision: - Negative for tumor (0/1). Few giant cells. E. Lymph node, level 10R, excision: - Negative for tumor (0/1). F. Lymph node, level 11R, excision: - Negative for tumor (0/1). G. Lung, additional airway, excision: - Keratinizing squamous cell carcinoma. - Bronchial margin negative for tumor Diagnosis Comment A. Selected slides from part A (including the inked margin) were reviewed at the [facility] thoracic pathology consensus conference on 11/23/23. Dr. Fauzia Oseguera, Dr. Alexis Altman, Dr. Ftich and Dr. Romina Bryan were present and concurred with this interpretation. The status of the margins was discussed with Dr. Escobar by email on 11/23/23 and discussed at the consensus conference. Because of the extensive nature of the suppurative process, margin assessment is difficult. G. The final bronchial margin is negative for tumor. Block for additional Biomarkers/Molecular studies A7 Synoptic Report LUNG 8th Edition - Protocol posted: 11/17/2021LUNG: RESECTION - All Specimens SPECIMEN Procedure Lobectomy Specimen Laterality Right TUMOR Tumor Focality Single focus Tumor Site Lower lobe of lung Tumor Size Total Tumor Size (size of entire tumor) Greatest Dimension (Centimeters): 2.5 cm Additional Dimension (Centimeters) 2.5 cm 1.8 cm Histologic Type Invasive squamous cell carcinoma, keratinizing Histologic Grade G2, moderately differentiated Spread Through Air Spaces (ROBIN) Not identified Visceral Pleura Invasion Not identified Direct Invasion of Adjacent Structures Not applicable (no adjacent structures present) Treatment Effect No known presurgical therapy Lymphovascular Invasion Not identified MARGINS Margin Status for Invasive Carcinoma Due to extensive suppuration, it is unclear whether the inked edge represents a true hilar soft tissue or parenchymal margin; discussed with Dr. Escobar on 11/23/23. The bronchial and vascular margins are negative. Margin Status for Non-Invasive Tumor Not applicable REGIONAL LYMPH NODES Lymph Node(s) from Prior Procedures No known prior lymph node sampling performed Regional Lymph Node Status All regional lymph nodes negative for tumor Number of Lymph Nodes Examined 12 Lan Site(s) Examined 8R: Para-esophageal (below patti) 9R: Pulmonary ligament 10R: Hilar 11R: Interlobar Right: hilar/peribronchial PATHOLOGIC STAGE CLASSIFICATION (pTNM, AJCC 8th Edition) Reporting of pT, pN, and (when applicable) pM categories is based on information available to the pathologist at the time the report is issued. As per the AJCC (Chapter 1, 8th Ed.) it is the managing physician?s responsibility to establish the final pathologic stage based upon all pertinent information, including but potentially not limited to this pathology report. pT Category pT1c pN Category pN0 ADDITIONAL FINDINGS Additional Findings Inflammation: Acute and organizing bronchopneumonia Post-obstructive changes REASON FOR VISIT: Follow up after recent hospitalization HPI: Stevie Angeles is a 73 year old male ex-smoker 40 pack years (quit 2021) with history of prostate cancer and squamous cell skin cancer, who was found to have lung nodules on surveillance of known AAA. CTA chest 05/17/23 revealed nodular opacification in the right lower lobe with confluent appearance near hilum. PET/CT 06/19/23 showed intensive uptake associated with the 1.5 x 2.2 cm RUL lesion (SUV 10.3), medial right lower lobe solid lesion with groundglass extension (SUV 10) and mild uptake with prominent paratracheal node (SUV 2.2). Transbronchial biopsy 06/20/23 non-diagnostic and surveillance CT scan showed further enlargement of known RLL and RUL lesions. Transbronchial biopsy/EBUS repeated 09/19/23, biopsy of RLL lesion showed squamous cell carcinoma (lymph node stations 11RS and 11RI were neg). Case discussed at Tumor Board, decision was for upfront resection with consideration of adjuvant therapy once final pathology identified. On 11/15/23 he underwent Robotic-assisted right lower lobectomy with right lower lobe bronchoplasty closure of airway and mediastinal and hilar lymph node dissection, intercostal and phrenic nerve block by Dr Escobar. Noted an abscess. He was discharged 11/19/23. He had SBRT to right upper lobe nodule 02/01/24. PHYSICAL EXAM: VITAL SIGNS: BP 110/73 Pulse 82 Temp 36.9 ?C (98.5 ?F) (Oral) Ht 177.8 cm (5' 10) Wt 77 kg (169 lb 11.2 oz) SpO2 96% BMI 24.35 kg/m? Room air 174 lb Incision location: Right Thoracoport sites and Right Old chest tube sites Incision Assessment: per patient-Well approximated and no drainage, swelling, erythema or warmth Drain/Tubes: N/A GENERAL no acute distress alert and oriented x3 HEENT normocephalic, head midline, oral mucous membranes moist HEART regular rate and rhythm S1-S2 normal, no murmur LUNGS clear to auscultation bilaterally, diminished right baseno rhonchi rales or wheezing ABDOMEN soft nontender, nondistended. Bowel sounds active x 4 quadrants EXTREMITIES no clubbing, cyanosis or edema MUSCULOSKELETAL gait within normal limits SKIN no rashes or petechiae IMAGING/TESTS: CT Chest 05/08/24: IMPRESSION: 1. Postoperative changes of right lower lobectomy. Large new cystic space in the resection bed with areas of septations and smaller surrounding cystic spaces. Primary differential for this is a multiloculated pneumothorax or less likely a large bulla. 2. Stable right upper lobe spiculated nodule with cavitations. CXR 05/17/2024 RESULT: Lines, tubes, and devices: None. Lungs and pleura: Unchanged loculated right hydropneumothorax and bibasilar opacities. Postsurgical change in the right lung. Cardiomediastinal silhouette: Stable cardiomediastinal silhouette. Bones and soft tissues: Unremarkable. INTERVAL HISTORY: Stevie Angeles returns to clinic today following recent hospitalization. He denies any cough, wheeze or SOB. CXR shows large right base hyropneumothorax. Dr Escobar is aware and states he wishes to bring Mr Angeles back for right chest exploration with possible robotic, possible thoracotomy, possible lung resection. Dr Escobar's NPM will reach out to Mr Angeles with the surgical date which will most likely be in a month. 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 SBRT to RUL nodule 02/01/24. Large right pneumothorax PLAN: - return for TCI with Dr Dl Bedolla, HOOK UP.PROGRAM SUPPORT ASSISTANT PROGRESS Observed: 05/17/2024 2:30 PM Status: COMPLETED Source: [facility] HNO ID: [id number] Author: JENNIFER MERCADO RT(R) Service: Radiology Author Type: Technologist Type: Progress Notes Filed: 05/17/2024 14:23 Note Text: Radiology Service Progress Note PATIENT NAME: Stevie Angeles DATE OF SERVICE: May 17, 2024 TIME: 2:22 PM PATIENT IDENTITY VERIFICATION COMPLETED USING TWO (2) IDENTIFIERS: Name and Date of confirmed by patient verbally. FALL SCREENING: Has the patient had 2 falls in the last year or 1 fall with injury or currently using an Ambulatory Assistive Device (Walker, Cane, Wheelchair, Crutches, etc.)? No PATIENT GENDER DATA: Assigned male at PATIENT RELEVANT IMPLANT DATA REVIEWED: Not Applicable PATIENT PRESENTS WITH AN IMPLANTABLE OR ATTACHED PAUNCH TRIMMER: No RADIOLOGY DEPARTMENT: General X-ray: Exam(s) Completed: Chest X-Ray PERIPHERAL IV DATA: Not applicable SIGNED BY: RT Alexandra(R) May 17, 2024 2:22 PM XR CHEST 2V FRONTAL/LAT Observed: 2024 2:22 PM Status: F Source: [facility] * * *Final Report* * * DATE OF EXAM: May 17 2024 2:22PM [id number] - XR CHEST 2V FRONTAL/LAT / PROCEDURE REASON: Pneumothorax, unspecified type * * * * Physician Interpretation * * * * EXAMINATION: CHEST RADIOGRAPH (2 VIEW FRONTAL and LATERAL) CLINICAL HISTORY: Pneumothorax, unspecified type MQ: [id number] EXAM DATE/TIME: 05/17/2024 2:22 PM COMPARISON: 5 days prior RESULT: Lines, tubes, and devices: None. Lungs and pleura: Unchanged loculated right hydropneumothorax and bibasilar opacities. Postsurgical change in the right lung. Cardiomediastinal silhouette: Stable cardiomediastinal silhouette. Bones and soft tissues: Unremarkable. IMPRESSION: See result. Agency Trainer: IMMANUEL Transcribe Date/Time: May 17 2024 3:17P Dictated by : QUAN JACQUES MD This examination was interpreted and the report reviewed and electronically signed by: QUAN JACQUES MD on May 17 2024 3:18PM EST [id number] PROGRESS Observed: 05/13/2024 10:32 AM Status: COMPLETED Source: [facility] HNO ID: [id number] Author: FLO CHESTER RN Service: ? Author Type: Registered Nurse Type: Progress Notes Filed: 05/13/2024 10:52 Note Text: Transition Care Management (TCM) Initial Outreach PCP Update / Actionable Items Navigation Team Update / Actionable Items: Readmission risk 11 = Medium risk. Please schedule PCP within 14 days Patient to have Thoracic Follow up with Dr Escobar on 05/17/24, please assist with the date if not managed by the team yet. Patient appreciates your assistance, and is EKWOK on the phone. [facility] Home [facility] Referral Source of Stratification: [facility] Hospital Admission Status: Discharged Readmission Risk Score: 11 Patient's zip code: [address] Is zip code within program service area: Y Patient meets program referral criteria: No Patient does not qualify for High Risk TCM Home Visit program due to: Readmission Risk Score does not meet criteria Disposition: Patient does not qualify for HRTIC, will provide TCM outreach follow-up for 30-days Patient Source: In-Network Discharge Initial outreach: TCM discharge report Outreach Summary: Patient reports he is feeling better, he underwent a chest tube insertion for a pneumothorax identified on a CT scan 05/08/24. No chest tube was inserted in his hospitalization, but patient reports plans to discuss the need for a procedure when he sees Dr Escobar 05/17/24 (VATs) Patient with no acute symptoms or concerns at this time. Verbalized good understanding of medication changes, prescriptions filled per order and in the home Patient discharged from [facility] Discharge date: 05/12/24 Admitted for: Pneumothorax Readmission Risk: 11 Value-Based Contract: Russ HARKINS Contact: Contact made with patient: Yes Hi, my name is Flo Chester RN and I am calling from the [facility] on behalf of your Primary Care Provider, Praful Su MD. I understand you were recently in the hospital, so I am calling to check in with you to ensure you are feeling well now that you are home. May I ask you a few questions related to your hospital stay and well-being? Yes Spoke to: Patient Validation: Validated the person spoken to is actively involved in the patient's care. The patient was identified by Name and Date of . Symptoms: Are you feeling about the same, better or worse since leaving the hospital? Better Medications: Do you have any questions about taking your medications, including which medications you should be on, or do you need refills on your medications? Yes Discussed the patient's questions and/or concerns. If applicable, the appropriate team/provider updated. Medication Review: Full medication review completed Discharge Instructions: Your Discharge Instructions / After Visit Summary (AVS) are important in guiding you through the recovery process. Do you have any questions related to your discharge instructions? Yes Discussed the patient's questions and/or concerns. If applicable, the appropriate Team/Provider updated in FYI box. Most questions about his follow up appointments Home Care: Were you discharged with home care? No Equipment: Do you have all the necessary equipment and supplies needed at your home? Not applicable Social: Your mental health is as important to us as your physical health. Would you mind answering a few questions on this topic? Yes On the Storyboard review: Food Insecurity, Transportation, Depression, Housing, and Financial Strain: Complete any SDOHs, listed above, if not addressed in the past 3 months. If all SDOHs, listed above, have been addressed within the last 3 months, confirm responses and update any SDOHs that have changed. Action Taken: No needs verbalized. No action required. Follow-Up Appointment: [Appointment / TCM Follow-up within 14 days] I would like to help you schedule a hospital follow-up virtual or telephone visit with your PCP. This is a great way for you to connect with your provider to ensure you have safely transitioned home. If you are agreeable, I will send your request to a oil truck driver who will contact and assist you with that appointment. This will give you an opportunity to ask any questions or address any concerns you may have with your PCP. Inform the patient that if they have any questions or concerns prior to that appointment, to call their PCP's office right away. Appointment Action: Patient desires an appointment. Complete Navigation Team box and route to appropriate pool for scheduling. Education details: Patient and family educated on issues/questions related to reason for admission, transition of care topics, and follow-up needed upon discharge. Utilization Education - Where to go for Care Where to Go for Care Flo Chester RN May 13, 2024 10:33 AM BEATRIS Observed: 05/13/2024 12:00 AM Status: COMPLETED Source: [facility] Patient Outreach ([facility]) STEVIE ANGELES ([id number]) 1950 M DEF Date Time Provider Department 05/13/24 FLO CHESTERJade During your visit today, we recorded the following information about you: Flo Chester RN 05/13/2024 10:52 AM Signed Transition Care Management (TCM) Initial Outreach PCP Update / Actionable Items Navigation Team Update / Actionable Items: Readmission risk 11 = Medium risk. Please schedule PCP within 14 days Patient to have Thoracic Follow up with Dr Escobar on 05/17/24, please assist with the date if not managed by the team yet. Patient appreciates your assistance, and is EKWOK on the phone. [facility] T[facility] Home Visit Referral Source of Stratification: [facility] Hospital Admission Status: Discharged Readmission Risk Score: 11 Patient's zip code: [address] Is zip code within program service area: Y Patient meets program referral criteria: No Patient does not qualify for High Risk TCM Home Visit program due to: Readmission Risk Score does not meet criteria Disposition: Patient does not qualify for [facility], will provide TCM outreach follow-up for 30-days Patient Source: In-Network Discharge Initial outreach: TCM discharge report Outreach Summary: Patient reports he is feeling better, he underwent a chest tube insertion for a pneumothorax identified on a CT scan 05/08/24. No chest tube was inserted in his hospitalization, but patient reports plans to discuss the need for a procedure when he sees Dr Escobar 05/17/24 (VATs) Patient with no acute symptoms or concerns at this time. Verbalized good understanding of medication changes, prescriptions filled per order and in the home Patient discharged from [facility] Discharge date: 05/12/24 Admitted for: Pneumothorax Readmission Risk: 11 Value-Based Contract: Russ HARKISN Contact: Contact made with patient: Yes Hi, my name is Flo Chester RN and I am calling from the [facility] on behalf of your Primary Care Provider, Praful Su MD. I understand you were recently in the hospital, so I am calling to check in with you to ensure you are feeling well now that you are home. May I ask you a few questions related to your hospital stay and well-being? Yes Spoke to: Patient Validation: Validated the person spoken to is actively involved in the patient's care. The patient was identified by Name and Date of . Symptoms: Are you feeling about the same, better or worse since leaving the hospital? Better Medications: Do you have any questions about taking your medications, including which medications you should be on, or do you need refills on your medications? Yes Discussed the patient's questions and/or concerns. If applicable, the appropriate team/provider updated. Medication Review: Full medication review completed Discharge Instructions: Your Discharge Instructions / After Visit Summary (AVS) are important in guiding you through the recovery process. Do you have any questions related to your discharge instructions? Yes Discussed the patient's questions and/or concerns. If applicable, the appropriate Team/Provider updated in FYI box. Most questions about his follow up appointments Home Care: Were you discharged with home care? No Equipment: Do you have all the necessary equipment and supplies needed at your home? Not applicable Social: Your mental health is as important to us as your physical health. Would you mind answering a few questions on this topic? Yes On the Storyboard review: Food Insecurity, Transportation, Depression, Housing, and Financial Strain: Complete any SDOHs, listed above, if not addressed in the past 3 months. If all SDOHs, listed above, have been addressed within the last 3 months, confirm responses and update any SDOHs that have changed. Action Taken: No needs verbalized. No action required. Follow-Up Appointment: [Appointment / TCM Follow-up within 14 days] I would like to help you schedule a hospital follow-up virtual or telephone visit with your PCP. This is a great way for you to connect with your provider to ensure you have safely transitioned home. If you are agreeable, I will send your request to a oil truck driver who will contact and assist you with that appointment. This will give you an opportunity to ask any questions or address any concerns you may have with your PCP. Inform the patient that if they have any questions or concerns prior to that appointment, to call their PCP's office right away. Appointment Action: Patient desires an appointment. Complete Navigation Team box and route to appropriate pool for scheduling. Education details: Patient and family educated on issues/questions related to reason for admission, transition of care topics, and follow-up needed upon discharge. Utilization Education - Where to go for Care Where to Go for Care Flo Chester RN May 13, 2024 10:33 AM Allergies As of Date: 05/13/2024 (No Known Allergies) Date Reviewed: 05/12/2024 Reviewed by: Shaun Nance RN - Fully Assessed Prescriptions as of 05/13/2024 - acetaminophen (TYLENOL) 325 mg tablet Take 2 tablets by mouth every 4 hours as needed for pain. - gabapentin (NEURONTIN) 300 mg capsule TAKE 2 CAPSULES BY MOUTH 3 TIMES A DAY - lisinopril-hydroCHLOROthiazide (ZESTORETIC) 20-12.5 mg per tablet Take 1 tablet by mouth once daily. Patient should start on December 19, 2023. - amLODIPine (NORVASC) 5 mg tablet (Mar Hold) Take 1 tablet by mouth once daily. Patient should start on December 19, 2023. - fluticasone-salmeterol (WIXELA INHUB) 250-50 mcg/dose inhaler Inhale 1 Puff as instructed two times a day. - atorvastatin (LIPITOR) 20 mg tablet Take 1 tablet by mouth once daily. 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] 04/24/2023 Prostate cancer (HCC) [C61] 09/11/2023 Paroxysmal atrial fibrillation (HCC) [I48.0] 09/11/2023 Cancer of lower lobe of right lung (HCC) [C34.3*11/15/2023 Postoperative pain [G89.18] 11/16/2023 Stage 1 mild COPD by GOLD classification (HCC) *11/17/2023 Abscess of lower lobe of right lung without pne*11/17/2023 Pleural effusion, left [J90] 11/17/2023 Atelectasis [J98.11] 11/17/2023 Pneumothorax [J93.9] 05/10/2024 Hearing loss [H91.90] 05/10/2024 Encounter Status:Closed by FLO [place]STER on 05/13/24 CNDS Observed: 05/12/2024 11:42 AM Status: COMPLETED Source: [facility] HNO ID: [id number] Author: PAULA ESCOBAR MD, PhD Service: Thoracic Surgery Author Type: Nurse Practitioner Type: Discharge Summary Filed: 06/02/2024 13:12 Note Text: Attestation signed by Paula Escobar MD, PhD at 06/02/2024 1:12 PM Complicated problem. Will follow in OPD Hospital Stay and Discharge Summary (Patient admitted less than 48 Hours) This is a summary of your hospital stay. Please read it carefully and share it with your family and healthcare providers. Date of Admission: 05/10/2024 Date of Discharge: 05/12/2024 Where I Will be Going after Discharge: Home with Self Care My Condition at Discharge: Stable My Doctors and Medical Team: My Main Hospital Doctor: Paula Escobar M.D. My Primary Care Physician: Praful Su MD Other Medical Team Members: None Discharge Diagnosis: right basilar pneumothorax Summary of What Happened When in the Hospital: On routine surveillance imaging, CT scan 05/08/24 preliminary results showed enlarging right basilar pneumothorax. Results were given during virtual visit with thoracic surgery, and he was instructed to come to [facility] for direct admission for chest tube insertion. Final read of CT scan 05/08/24 showed large cystic space in the resection bed. Multiloculated pneumothorax vs large bulla. No plan for chest tube insertion during hospitalization. CMET during hospitalization for SOB resolved with rest and oxygen via nasal cannula. On discharge hemodynamically stable, oxygenating well on room air, tolerating regular diet, and ambulating in halls independently. Other Problem(s)/Diagnosis: Principal Problem: Pneumothorax Active Problems: Stage 1 mild COPD by GOLD classification (HCC) Hearing loss Primary hypertension Mixed hyperlipidemia Spinal stenosis of lumbar region with neurogenic claudication Resolved Problems: * No resolved hospital problems. * Operations Performed While in the Hospital: None Important Tests/Procedures: No procedures performed PHYSICAL EXAMINATION: BP 94/57 Pulse 74 Temp 36.7 ?C (98 ?F) (Oral) Resp 18 Ht 177.8 cm (5' 10) Wt 77.2 kg (170 lb 3.1 oz) SpO2 96% BMI 24.42 kg/m? General appearance: Well appearing, alert, in no acute distress, well-hydrated, well nourished. Head: Normocephalic, no masses, lesions, tenderness or abnormalities Lungs: lungs clear to auscultation. No wheezing, rhonchi, rales Heart: RRR without murmur, gallop, or rubs. No ectopy Abdomen: Normal abdominal exam, Abdomen soft, non-tender. Bowel sounds normal. No masses, organomegaly Extremities: No deformities, edema, skin discoloration, clubbing or cyanosis. Good capillary refill. Neuro: Gait normal. Reflexes normal and symmetric. Sensation grossly intact. Discharge Medications: Medication List PAUSE taking these medications amLODIPine 5 mg tablet Wait to take this until: May 18, 2024 Follow up with thoracic surgery on when to resume Commonly known as: NORVASC Take 1 tablet by mouth once daily. Patient should start on December 19, 2023. START taking these medications acetaminophen 325 mg tablet Commonly known as: TYLENOL Take 2 tablets by mouth every 4 hours as needed for pain. CONTINUE taking these medications atorvastatin 20 mg tablet Commonly known as: LIPITOR Take 1 tablet by mouth once daily. fluticasone-salmeterol 250-50 mcg/dose inhaler Commonly known as: WIXELA INHUB Inhale 1 Puff as instructed two times a day. gabapentin 300 mg capsule Commonly known as: NEURONTIN TAKE 2 CAPSULES BY MOUTH 3 TIMES A DAY lisinopril-hydroCHLOROthiazide 20-12.5 mg per tablet Commonly known as: ZESTORETIC Take 1 tablet by mouth once daily. Patient should start on December 19, 2023. Where to Get Your Medications You can get these medications from any pharmacy You don't need a prescription for these medications acetaminophen 325 mg tablet Transitions of Care Critical Issues: Outpatient Management: * Are there important medication changes and/or outstanding issues that need to be addressed: OR VATS to be scheduled out patient. Holding amlodipine due to hypotension during hospitalization. Reassess at follow up appointment. * What is the plan for follow up: Appointment scheduled with thoracic surgery on Friday May 17, 2024 for follow up and OR VATS scheduling. Future Appointments: Future Appointments Date Time Provider Department Center 05/20/2024 3:00 PM Elias Goss MD [facility] 05/22/2024 2:40 PM Kevin Cantu MD [facility] 06/13/2024 3:00 PM Thad Beltran MD [facility] 06/18/2024 9:00 AM NABEEL RES[facility]YSIC[facility] 06/18/2024 9:45 AM Malia Egan DO [facility] 10/24/2024 2:20 PM Praful Su MD [facility] 01/16/2025 2:30 PM Don Lara MD [facility] Highest Readmission Risk Score: 11 The 30 day readmissions risk score is derived from an internally validated risk model which evaluates patient level characteristics, utilization history, medication orders and lab results up until the day of discharge. Patients with a score of 39 or above are considered highest risk for readmission. Specific patient level drivers will be listed at the bottom of the summary. The patient's risk for 30-day readmission is determined using the following contributing factors: Predictive Model Details 10% (Low) Factor Value Calculated 05/12/2024 05:22 -10% Albumin (Avg) 4.3 [facility] READMISSION RISK Model -7% Admissions (90d) 1 -7% Length of Stay (d) 2 -7% [place] 5 -7% Observations (365d) 0 -6% Hospital Unit HOSP MAIN J052 -5% Admissions (60d) 1 -5% RDW (Max) 13.9 -5% Procedure Count 4 -5% Tim Scale 22 Electronically SIGNED by Licensed Independent Practitioner: Jerry Giraldo APRN.CNP Due to transparency practice at the [facility], those who have an active MyChart may notice test results and pathology results being immediately released once finalized. This can occur prior to your provider having the chance to review the results. At your follow up visit those results will be discussed in detail as well as any additional future plans. PROGRESS Observed: 05/12/2024 10:27 AM Status: COMPLETED Source: [facility] HNO ID: [id number] Author: JERRY GIRALDO APRN.CNP Service: Thoracic Surgery Author Type: Nurse Practitioner Type: Progress Notes Filed: 05/12/2024 10:27 Note Text: [facility] POST-OP PROGRESS NOTE Stevie Angeles [id number] SURGEON: Paula Escobar M.D. ADMIT DATE: 05/10/24 DIAGNOSIS: Increasing right basilar pneumothorax INTERVAL EVENTS / PERTINENT ROS: Oxygenating well on room air.Denies dyspnea or SOB. CT chest from 05/08/24 shows large new cystic space in the resected bed. Differential diagnosis multiloculated pneumothorax vs large bulla. OOB and ambulating in halls independently. PERTINENT LABS: Personally reviewed; Hemoglobin (g/dL) Date Value 05/12/2024 13.4 04/28/2015 16.1 Hematocrit (%) Date Value 05/12/2024 39.6 04/28/2015 47.0 WBC (k/uL) Date Value 05/12/2024 5.48 04/28/2015 8.93 Glucose (mg/dL) Date Value 05/12/2024 104 02/08/2021 138 Potassium (mmol/L) Date Value 05/12/2024 3.9 02/08/2021 4.1 Sodium (mmol/L) Date Value 05/12/2024 139 02/08/2021 136 Chloride (mmol/L) Date Value 05/12/2024 105 02/08/2021 98 CO2 (mmol/L) Date Value 05/12/2024 23 02/08/2021 27 Creatinine (mg/dL) Date Value 05/12/2024 0.59 02/08/2021 0.78 BUN (mg/dL) Date Value 05/12/2024 9 02/08/2021 11 Anion Gap (mmol/L) Date Value 05/12/2024 11 02/08/2021 11 Calcium (mg/dL) Date Value 02/08/2021 10.2 Calcium, Total (mg/dL) Date Value 05/12/2024 9.3 CXR: personally reviewed, Large loculated right pneumothorax. No obvious pleural effusions. Cardiac silhouette stable. TELEMETRY: most recent recordings reviewed, NSR PHYSICAL EXAM: Blood pressure 94/57, pulse 74, temperature 36.7 ?C (98 ?F), temperature source Oral, resp. rate 18, height 177.8 cm (5' 10), weight 77.2 kg (170 lb 3.1 oz), SpO2 96%. GENERAL: alert, no acute distress HEENT: normocephalic, midline LUNGS: diminished in bases on right. HEART: RRR without murmur ABDOMEN: Soft, non-tender, non distended. EXTREMITIES: No cyanosis or edema. SKIN: no suspicious rashes or lesions noted NEURO: Gait normal. 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 CTA chest 05/17/23 revealed nodular opacification in the right lower lobe with confluent appearance near hilum. PET/CT 06/19/23 showed intensive uptake associated with the 1.5 x 2.2 cm RUL lesion (SUV 10.3), medial right lower lobe solid lesion with groundglass extension (SUV 10) and mild uptake with prominent paratracheal node (SUV 2.2). Transbronchial biopsy 06/20/23 non-diagnostic and surveillance CT scan showed further enlargement of known RLL and RUL lesions. Transbronchial biopsy/EBUS repeated 09/19/23, biopsy of RLL lesion showed squamous cell carcinoma (lymph node stations 11RS and 11RI were neg). Case discussed at Tumor Board, decision was for upfront resection with consideration of adjuvant therapy once final pathology identified. 11/15/2023: Robotic-assisted right lower lobectomy, right lower lobe bronchoplasty closure of airway, mediastinal lymph node dissection. Discharged 11/19/23. Airway Difficulty: Grade 1 - Not difficult Pacing Wires: No Chronological List of Surgeries and Major Events (Diagnosis): (Surgeries in bold characters) 11/15/2023: Robotic-assisted right lower lobectomy, right lower lobe bronchoplasty closure of airway, mediastinal lymph node dissection, intercostal and phrenic nerve block. FINDINGS: Suspicion of cancer crossing cephalad aspect of major fissure into upper lobe versus extensively metastatic lymph node disease and partially abscessed right lower lobe. Extensive adhesive disease and adenopathy along posterior hilum and oblique fissure. Abscess cavity at superior aspect of right lower lobe presumably from post-obstructive infectious process. 11/17/23: afib RVR, LLL collapse 05/08/24: CT chest at [place] [facility] 05/10/24: Admitted to Thoracic SDU for right pneumothorax A/P of Major Active Problems (excluding routine care and common problems): squamous cell lung carcinoma, 2 synchronous primary lesions (RLL and RUL) vs cT4N0 now s/p VATS RLL lobectomy and LND 11/15/23. 05/08/24 CT large new cystic space in the resected bed. Multiloculated pneumothorax vs large bulla. Right basilar pneumothorax On 2L nasal cannula. 05/10/24 CMET for SOB. Weaned to room air. CT large new cystic space in the resected bed. Multiloculated pneumothorax vs large bulla. COPD, mild. Home med: Fluticasone-salmeterol inhaler daily. Weaned to room air -Continue home medications -continue scheduled nebulizers and mucolytics HTN Home med: Lisinopril/HCTZ 20/12.5 mg every day and Norvasc 5 mg daily. Hypotensive SBP 80-90s -Hold home medication, resume as BP dictates Spinal Stenosis Home med: Neurontin 600 mg TID, Pain controlled and up independently -Continue home medication AAA Involving infrarenal aorta previously measured 4.6, now 5.2, asymptomatic, stable. No sign of rupture. Ongoing follow up w/ vascular surgery and biannual CTA (Follows with Dr. Tea Eckert) Hyperlipidemia Home medication Lipitor 20 mg daily. Last set of lipids revealed (05/02/23): Total Chol 146: HDL 38: LDL 79: TG 145. -Resume home medication. Prostate cancer [id number] adenocaarcinoma prostate s/p TRUS random biopsy 09/24/20, s/p Lupron 45 mg IM injection 11/05/20 then external beam radiation therapy completed 01/15/21 (70 Gy/28fx). ADRIANA -follow up w/ urology Discharge planning. Single lives in [place], [place]. Functionally independent at home. No skilled needs for home anticipated -ongoing collaboration w/ case mgmt, patient To Do or to Watch: -Discharge home follow up in OPD, Schedule OR VATS at later date Discharge Planning: Anticipated Discharge Date: 05/12/2024 Barriers to Discharge: None Care Management Discharge Needs: Needs Prior to Discharge: To Be Determined, Procedure DAILY STEP DOWN CHECKLIST FOR CATHETER RELATED INFECTION PREVENTION CVC, PICC, Tati and/or Permacath present? No Does the patient have a urinary catheter beyond POD 2? No VTE Risk Assessment: Moderate risk VTE Mechanical and/or Pharmacologic Prophylaxis: MILDRED cordero, Subcutaneous Heparin Labs and medications reviewed in Epic SIGNATURE: Jerry Giraldo APRN.[facility]: [phone] DATE of SERVICE: May 12, 2024 TIME of SERVICE: 10:27 AM CBC PNL BLD AUTO Collected: 6:37 AM Status: F Source: [facility] Order Comment: Specimen Type : BLOOD SPECIMEN Ordering Facility: [facility] Address: [address] [place] [address] TYPE CODE TESTS RESULT OUT OF RANGE REFERENCE UNITS LAB 6690-2([facility]) WBC # Bld Auto 5.48 3.70-11.00 k/uL LAB 789-8([facility]) RBC # Bld Auto 4.27 4.20-6.00 m/uL LAB 718-7([facility]) Hgb Bld-mCnc 13.4 13.0-17.0 g/dL LAB 4544-3([facility]) Hct VFr Bld Auto 39.6 39.0-51.0 % LAB 787-2(INC) MCV RBC Auto 92.7 80.0-100.0 fL LAB 785-6(INC) MCH RBC Qn Auto 31.4 26.0-34.0 pg LAB 786-4(INC) MCHC RBC Auto-mCnc 33.8 30.5-36.0 g/dL LAB 34658-0(INC) RDW RBC-Rto 14.1 11.5-15.0 % LAB 777-3(INC) Platelet # Bld Auto 191 150-400 k/uL LAB 93008-7([facility]) PMV Bld Auto 8.8 Low 9.0-12.7 fL LAB 771-6(LOINC) nRBC # Bld Auto <0.01 <0.01 k/uL Performed By: #### [id number] # ### [facility] CLIA [id number] [address] [place] [address] [place] BAS METAB 2000 PNL SERPL Collected: 6:37 AM Status: F Source: [facility] Order Comment: Specimen Type : BLOOD SPECIMEN Ordering Facility: [facility] Address: [address] [place] [address] TYPE CODE TESTS RESULT OUT OF RANGE REFERENCE UNITS LAB 2345-7(LOINC) Glucose SerPl-mCnc 104 High 74-99 mg/dL Result Comment: The [place] [employer] (ADA) provides guidance for cutoff values for fasting glucose and random glucose. The ADA defines fasting as no caloric intake for at least 8 hours. Fasting plasma glucose results between 100 to 125 mg/dL indicate increased risk for diabetes (prediabetes). Fasting plasma glucose results greater than or equal to 126 mg/dL meet the criteria for diagnosis of diabetes. In the absence of unequivocal hyperglycemia, results should be confirmed by repeat testing. In a patient with classic symptoms of hyperglycemia or hyperglycemic crisis, random plasma glucose results greater than or equal to 200 mg/dL meet the criteria for diagnosis of diabetes. Reference: Standards of Medical Care in Diabetes 2016, [place] [employer]. Diabetes Care. 2016.39(Suppl 1). LAB 3094-0(LOINC) BUN SerPl-mCnc 9 9-24 mg/ dL LAB 2160-0(LOINC) Creat SerPl-mCnc 0.59 Low 0.73-1.22 mg/dL LAB 2951-2(LOINC) Sodium SerPl-sCnc 139 136-144 mmol/L LAB 2823-3(LOINC) Potassium SerPl-sCnc 3.9 3.7-5.1 mmol/L LAB 2075-0(LOINC) Chloride SerPl-sCnc 105 98-107 mmol/L LAB 2028-9(LOINC) CO2 SerPl-sCnc 23 22-30 mmo l/L LAB 56823-2(LOINC) Anion Gap SerPl-sCnc 11 8-15 mmol/L LAB 19818-5(LOINC) Calcium SerPl-mCnc 9.3 8.5-10.2 mg/dL LAB 55053-9(LOINC) Creatinine + eGFR Pnl SerPlBld 104 >=60 mL/min/1 .73m??? Result Comment: Estimated Gl omerular Filtration Rate (eGFR) is calculated using the 202 CKD-EPI creatinine equation. This equation utilizes serum creatinine, sex, and age as parameters. The creatinine assay has traceable calibration to isotope dilution-mass spectrometry. Refer to KDIGO guidelines for clinical interpretation. In patients with unstable renal function, e.g. those with acute kidney injury, the eGFR may not accurately reflect actual GFR. Performed By: #### [id number] # ### [facility] CLIA [id number] [address] [place] [address] [place] XR CHEST 1V FRONTAL PORT Observed: 05/12 5:58 AM Status: F Source: [facility] * * *Final Report* * * DATE OF EXAM: May 12 2024 5:58AM JIX [id number] - XR CHEST 1V FRONTAL PORT / PROCEDURE REASON: Post-operative/post-procedure assessment * * * * Physician Interpretation * * * * CHEST RADIOGRAPH (PORTABLE SINGLE VIEW AP) Exam Date/Time: 05/12/2024 5:58 AM Indications: Post-operative/post-procedure assessment MQ: [id number] Comparison: 1 day earlier RESULTS: See Impression. IMPRESSION: Lines, Tubes, and Devices: Stable support lines and tubes. Lungs and Pleura: Scattered lung opacities and small effusions are not significantly changed. No pneumothorax. Cardiomediastinal silhouette: Stable cardiac silhouette. Agency Trainer: [facility] Transcribe Date/Time: May 12 2024 9:59A Dictated by : JURGEN ROY MD This examination was interpreted and the report reviewed and electronically signed by: JURGEN ROY MD on May 12 2024 10:00AM EST [id number] Observed: 05/11/2024 3:21 PM Status: COMPLETED Source: [facility] HNO ID: [id number] Author: JERRY GIRALDO APRN.PROGRAM SUPPORT ASSISTANT Service: Thoracic Surgery Author Type: Nurse Practitioner Type: Progress Notes Filed: 05/11/2024 15:55 Note Text: [facility] TH[facility] POST-OP PROGRESS NOTE Stevie Angeles [id number] SURGEON: Paula Escobar M.D. ADMIT DATE: 05/10/24 DIAGNOSIS: Increasing right basilar pneumothorax INTERVAL EVENTS / PERTINENT ROS: CMET overnight for increasing SOB and low oxygen saturations. Oxygen saturations improved and patient stayed on stepdown unit. Oxygenating well on 2L nasal cannula. This morning denies dyspnea or SOB. Pending CT results from OPD on 05/08/24. OOB and ambulating in halls independently. PERTINENT LABS: Personally reviewed; Hemoglobin (g/dL) Date Value 05/11/2024 14.2 04/28/2015 16.1 Hematocrit (%) Date Value 05/11/2024 41.8 04/28/2015 47.0 WBC (k/uL) Date Value 05/11/2024 5.39 04/28/2015 8.93 Glucose (mg/dL) Date Value 05/11/2024 111 02/08/2021 138 Potassium (mmol/L) Date Value 05/11/2024 3.7 02/08/2021 4.1 Sodium (mmol/L) Date Value 05/11/2024 137 02/08/2021 136 Chloride (mmol/L) Date Value 05/11/2024 101 02/08/2021 98 CO2 (mmol/L) Date Value 05/11/2024 26 02/08/2021 27 Creatinine (mg/dL) Date Value 05/11/2024 0.58 02/08/2021 0.78 BUN (mg/dL) Date Value 05/11/2024 10 02/08/2021 11 Anion Gap (mmol/L) Date Value 05/11/2024 10 02/08/2021 11 Calcium (mg/dL) Date Value 02/08/2021 10.2 Calcium, Total (mg/dL) Date Value 05/11/2024 9.4 CXR: personally reviewed, Large loculated right pneumothorax. No obvious pleural effusions. Cardiac silhouette stable. TELEMETRY: most recent recordings reviewed, NSR PHYSICAL EXAM: Blood pressure 128/81, pulse 91, temperature 36.9 ?C (98.4 ?F), temperature source Oral, resp. rate 20, height 177.8 cm (5' 10), weight 77.2 kg (170 lb 3.1 oz), SpO2 95%. GENERAL: alert, no acute distress HEENT: normocephalic, midline LUNGS: diminished in bases on right. HEART: RRR without murmur ABDOMEN: Soft, non-tender, non distended. EXTREMITIES: No cyanosis or edema. SKIN: no suspicious rashes or lesions noted NEURO: Gait normal. 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 CTA chest 05/17/23 revealed nodular opacification in the right lower lobe with confluent appearance near hilum. PET/CT 06/19/23 showed intensive uptake associated with the 1.5 x 2.2 cm RUL lesion (SUV 10.3), medial right lower lobe solid lesion with groundglass extension (SUV 10) and mild uptake with prominent paratracheal node (SUV 2.2). Transbronchial biopsy 06/20/23 non-diagnostic and surveillance CT scan showed further enlargement of known RLL and RUL lesions. Transbronchial biopsy/EBUS repeated 09/19/23, biopsy of RLL lesion showed squamous cell carcinoma (lymph node stations 11RS and 11RI were neg). Case discussed at Tumor Board, decision was for upfront resection with consideration of adjuvant therapy once final pathology identified. 11/15/2023: Robotic-assisted right lower lobectomy, right lower lobe bronchoplasty closure of airway, mediastinal lymph node dissection. Discharged 11/19/23. Airway Difficulty: Grade 1 - Not difficult Pacing Wires: No Chronological List of Surgeries and Major Events (Diagnosis): (Surgeries in bold characters) 11/15/2023: Robotic-assisted right lower lobectomy, right lower lobe bronchoplasty closure of airway, mediastinal lymph node dissection, intercostal and phrenic nerve block. FINDINGS: Suspicion of cancer crossing cephalad aspect of major fissure into upper lobe versus extensively metastatic lymph node disease and partially abscessed right lower lobe. Extensive adhesive disease and adenopathy along posterior hilum and oblique fissure. Abscess cavity at superior aspect of right lower lobe presumably from post-obstructive infectious process. 11/17/23: afib RVR, LLL collapse 05/08/24: CT chest at [place] [facility] 05/10/24: Admitted to Thoracic SDU for right pneumothorax A/P of Major Active Problems (excluding routine care and common problems): squamous cell lung carcinoma, 2 synchronous primary lesions (RLL and RUL) vs cT4N0 now s/p VATS RLL lobectomy and LND 11/15/23 -CT chest pending Right basilar pneumothorax On 2L nasal cannula. 05/10/24 CMET for SOB, stable with nasal cannula. -CT chest pending COPD, mild. Home med: Fluticasone-salmeterol inhaler daily. Oxygen 2L -Continue home medications -continue scheduled nebulizers and mucolytics HTN Home med: Lisinopril/HCTZ 20/12.5 mg every day and Norvasc 5 mg daily. Hypotensive SBP 80-90s -Hold home medication, resume as BP dictates Spinal Stenosis Home med: Neurontin 600 mg TID, Pain controlled and up independently -Continue home medication AAA Involving infrarenal aorta previously measured 4.6, now 5.2, asymptomatic, stable. No sign of rupture. Ongoing follow up w/ vascular surgery and biannual CTA (Follows with Dr. Tea Eckert) Hyperlipidemia Home medication Lipitor 20 mg daily. Last set of lipids revealed (05/02/23): Total Chol 146: HDL 38: LDL 79: TG 145. -Resume home medication. Prostate cancer [id number] adenocaarcinoma prostate s/p TRUS random biopsy 09/24/20, s/p Lupron 45 mg IM injection 11/05/20 then external beam radiation therapy completed 01/15/21 (70 Gy/28fx). ADRIANA -follow up w/ urology Discharge planning. Single lives in [place], [place]. Functionally independent at home. No skilled needs for home anticipated -ongoing collaboration w/ case mgmt, patient To Do or to Watch: -Awaiting CT chest final result -Possible IR pigtail placement Discharge Planning: Anticipated Discharge Date: TBD Barriers to Discharge: TBD Care Management Discharge Needs: Needs Prior to Discharge: None DAILY STEP DOWN CHECKLIST FOR CATHETER RELATED INFECTION PREVENTION CVC, PICC, Tati and/or Permacath present? No Does the patient have a urinary catheter beyond POD 2? No VTE Risk Assessment: Moderate risk VTE Mechanical and/or Pharmacologic Prophylaxis: MILDRED hose, Subcutaneous Heparin Labs and medications reviewed in Epic SIGNATURE: Jerry Giraldo APRN.[facility] P[facility]ER: [phone] DATE of SERVICE: May 11, 2024 TIME of SERVICE: 3:52 PM BAS METAB 1999 PNL SERPL Collected: 9:23 AM Status: F Source: [facility] Order Comment: Specimen Type : BLOOD SPECIMEN Ordering Facility: [facility] Address: [address] [place] [address] [place] [address] TYPE CODE TESTS RESULT OUT OF RANGE REFERENCE UNITS LAB 2345-7(LOINC) Glucose SerPl-mCnc 111 High 74-99 mg/dL Result Comment: The [employer] Diabetes Association (ADA) provides guidance for cutoff values for fasting glucose and random glucose. The ADA defines fasting as no caloric intake for at least 8 hours. Fasting plasma glucose results between 100 to 125 mg/dL indicate increased risk for diabetes (prediabetes). Fasting plasma glucose results greater than or equal to 126 mg/dL meet the criteria for diagnosis of diabetes. In the absence of unequivocal hyperglycemia, results should be confirmed by repeat testing. In a patient with classic symptoms of hyperglycemia or hyperglycemic crisis, random plasma glucose results greater than or equal to 200 mg/dL meet the criteria for diagnosis of diabetes. Reference: Standards of Medical Care in Diabetes 2016, [place] Diabetes Association. Diabetes Care. 2016.39(Suppl 1). LAB 3094-0(LOINC) BUN SerPl-mCnc 10 9-24 mg/ dL LAB 2160-0(LOINC) Creat SerPl-mCnc 0.58 Low 0.73-1.22 mg/dL LAB 2951-2(LOINC) Sodium SerPl-sCnc 137 136-144 mmol/L LAB 2823-3(LOINC) Potassium SerPl-sCnc 3.7 3.7-5.1 mmol/L LAB 2075-0(LOINC) Chloride SerPl-sCnc 101 98-107 mmol/L LAB 8-9(LOINC) CO2 SerPl-sCnc 26 22-30 mmo l/L LAB 30770-0(LOINC) Anion Gap SerPl-sCnc 10 8-15 mmol/L LAB 42284-7(LOINC) Calcium SerPl-mCnc 9.4 8.5-10.2 mg/dL LAB 31303-9(LOINC) Creatinine + eGFR Pnl SerPlBld 104 >=60 mL/min/1 .73m??? Result Comment: Estimated Gl omerular Filtration Rate (eGFR) is calculated using the 2020 CKD-EPI creatinine equation. This equation utilizes serum creatinine, sex, and age as parameters. The creatinine assay has traceable calibration to isotope dilution-mass spectrometry. Refer to KDIGO guidelines for clinical interpretation. In patients with unstable renal function, e.g. those with acute kidney injury, the eGFR may not accurately reflect actual GFR. Performed By: #### 72051-2 # ### [facility] CLIA [id number] [address] [place] [address] STATES OF [facility] CBC PNL BLD AUTO Collected: 5 9:23 AM Status: F Source: [facility] Order Comment: Specimen Type : BLOOD SPECIMEN Ordering Facility: [facility] Address: [address] [place] [address] TYPE CODE TESTS RESULT OUT OF RANGE REFERENCE UNITS LAB 6690-2(LOINC) WBC # Bld Auto 5.39 3.70-11.00 k/uL LAB 789-8(LOINC) RBC # Bld Auto 4.46 4.20-6.00 m/uL LAB 718-7(LOINC) Hgb Bld-mCnc 14.2 13.0-17.0 g/dL LAB 4544-3(LOINC) Hct VFr Bld Auto 41.8 39.0-51.0 % LAB 787-2(LOINC) MCV RBC Auto 93.7 80.0-100.0 fL LAB 785-6(LOINC) MCH RBC Qn Auto 31.8 26.0-34.0 pg LAB 786-4(LOINC) MCHC RBC Auto-mCnc 34.0 30.5-36.0 g/dL LAB 11142-3(LOINC) RDW RBC-Rto 13.9 11.5-15.0 % LAB 777-3(LOINC) Platelet # Bld Auto 197 150-400 k/uL LAB 83300-7(LOINC) PMV Bld Auto 8.7 Low 9.0-12.7 fL LAB 771-6(LOINC) nRBC # Bld Auto <0.01 <0.01 k/uL Performed By: #### 62972-0 # ### [facility] CLIA [id number] [address] [place] [address] STATES OF [place] XR CHEST 1V FRONTAL PORT Observed: 05/11 6:13 AM Status: F Source: [facility] * * *Final Report* * * DATE OF EXAM: May 11 2024 6:13AM JIX 5376 - XR CHEST 1V FRONTAL PORT / PROCEDURE REASON: Post-operative/post-procedure assessment * * * * Physician Interpretation * * * * EXAMINATION: CHEST RADIOGRAPH (PORTABLE SINGLE VIEW AP) Exam Date/Time: 05/11/2024 6:13 AM Clinical History: Post-operative/post-procedure assessment, Evaluate tube, line, or lead position MQ: XCPMC_6 Comparison: 1 day prior RESULT: Lines, tubes, and devices: None. Lungs and pleura: Elevated left hemidiaphragm. Depressed right hemidiaphragm. There is a large loculated right pneumothorax. Patient is reportedly status post right lower lobectomy. There is left lung base atelectasis. Cardiomediastinal silhouette: Stable cardiomediastinal silhouette. Other: . IMPRESSION: See result. Agency Trainer: IMMANUEL Transcribe Date/Time: May 11 2024 9:48A Dictated by : IVON PEREIRA MD This examination was interpreted and the report reviewed and electronically signed by: IVON PEREIRA MD on May 11 2024 9:49AM EST [id number] PROGRESS Observed: 05/11/2024 2:28 AM Status: COMPLETED Source: [facility] HNO ID: [id number] Author: NOTE, INTERFACE, ? Service: ? Author Type: ? Type: Progress Notes Filed: 05/11/2024 02:30 Note Text: Epic Scheduled Downtime: 05/11/2024 1:00:00 AM to 05/11/2024 2:11:00 AM XR CHEST 1V FRONTAL PORT Observed: 05/10 11:13 PM Status: F Source: [facility] * * *Final Report* * * DATE OF EXAM: May 10 2024 11:13PM [place] 5376 - XR CHEST 1V FRONTAL PORT / PROCEDURE REASON: Pneumothorax * * * * Physician Interpretation * * * * EXAMINATION: CHEST RADIOGRAPH (PORTABLE SINGLE VIEW AP) Exam Date/Time: 05/10/2024 11:13 PM Clinical History: Pneumothorax MQ: XCPMC_6 Comparison: Same day RESULT: Lines, tubes, and devices: None. Lungs and pleura: Patient is status post reported RIGHT lower lobectomy . Vague patchy opacity persists in the periphery of the RIGHT midlung zone, likely reportedly treated neoplastic nodule. There are calcified granulomata in the RIGHT lower lobe. A moderate size RIGHT basilar pneumothorax is noted. Small the RIGHT CP angle may represent a trace RIGHT pleural effusion/thickening. There is elevation/eventration of the left hemidiaphragm. Cardiomediastinal silhouette: The cardiomediastinal silhouette is stable since the prior exam. There are atherosclerotic calcifications in the aortic arch. Other: There is subcutaneous emphysema in the right chest wall. IMPRESSION: See result Agency Trainer: PSCB Transcribe Date/Time: May 11 2024 12:02A Dictated by : ALIYA BARRIENTOS MD This examination was interpreted and the report reviewed and electronically signed by: ALIYA BARRIENTOS MD on May 11 2024 12:03AM EST [id number] THERAPY NT Observed: 05/10/2024 10:51 PM Status: COMPLETED Source: [facility] HNO ID: [id number] Author: BAR TREVINO RRT Service: Respiratory Therapy Author Type: Registered Resp Therapist Type: Therapy (PT/OT/Speech/Resp) Filed: 05/10/2024 22:55 Note Text: RESPIRATORY THERAPY PROGRESS NOTE SERVICE DATE: 05/10/2024 SERVICE TIME: 10:08 PM CMET activated to J52-23 for shortness of breath. Patient was up out of bed and became short of breath with low oxygen saturations, patient was placed on oxygen at 2lpm. When CMET arrived patient was 97% on 2lpm. Patient has know pneumothorax and to have a pigtail placed tomorrow. CXR was ordered and patients oxygen saturations improved. No further interventions at this time. SIGNATURE: Bar Trevino RRT PATIENT NAME: Stevie Angeles DATE: May 10, 2024 TIME: 10:08 PM PAGER/CONTACT #: [phone] 05/10/248 RT Rapid Response Is this a Rapid Response? Yes Rapid Response Team CMET $ CPR/Code Blue No RT medication given No Patient intubated No Patient suctioned No Blood Gases Drawn No Vitals/Oxygenation Pulse 84 Resp 20 SpO2 97 % O2 Therapy NC Liters (Numeric Only) 2 $Oximetry $Performed Pulse Oximetry Monitoring Continuous NURSING PROG Observed: 05/10/2024 10:15 PM Status: COMPLETED Source: [facility] HNO ID: [id number] Author: ZAIRA ABBOTT, RN Service: ? Author Type: Registered Nurse Type: Nursing Progress Note Filed: 05/10/2024 22:26 Note Text: Event(s) / Intervention Note: PATIENT NAME: Stevie Angeles Patient Location: [place] [address] [facility] The patient complained of the following problems: difficulty breathing and oxygen saturation was 70's. The time of the event occurred at: 2214. The following intervention(s) were initiated: CMET activated and primary team notified, orders for chest x-ray given., and pt place on 2 L N/C ating @ 94-96 %. After the initiated interventions, the following observation(s) were made: patient reported relief. and cont pulse oximeter applied. XR CHEST 1V FRONTAL PORT Observed: 05/10 4:05 PM Status: F Source: [facility] * * *Final Report* * * DATE OF EXAM: May 10 2024 4:05PM [facility]376 - XR CHEST 1V FRONTAL PORT / PROCEDURE REASON: Pneumothorax * * * * Physician Interpretation * * * * EXAMINATION: CHEST RADIOGRAPH (PORTABLE SINGLE VIEW AP) Exam Date/Time: 05/10/2024 4:05 PM Clinical History: Pneumothorax MQ: XCPMC_6 Comparison: 02/01/2024 RESULT: Lines, tubes, and devices: None. Lungs and pleura: Patient is status post reported RIGHT lower lobectomy . Vague nodular opacity persists in the periphery of the RIGHT midlung zone, likely reportedly treated neoplastic nodule. There are calcified granulomata in the RIGHT lower lobe. A RIGHT basilar pneumothorax is noted. Small loculated RIGHT pleural effusion is present. There is elevation/eventration of the left hemidiaphragm. Cardiomediastinal silhouette: The cardiomediastinal silhouette is stable since the prior exam. There are atherosclerotic calcifications in the aortic arch. Other: There is subcutaneous emphysema in the right chest wall. IMPRESSION: See result Agency Trainer: IMMANUEL Transcribe Date/Time: May 10 2024 5:04P Dictated by : ALIYA BARRIENTOS MD This examination was interpreted and the report reviewed and electronically signed by: ALIYA BARRIENTOS MD on May 10 2024 5:08PM EST [id number] CASE MGT INWADE MARROQUIN Observed: 05/10/2024 3:10 PM Status: COMPLETED Source: [facility] HNO ID: [id number] Author: DERIAN SANTANA RN Service: Care Management Author Type: Registered Nurse Type: Care Mgt Initial Assessment Filed: 05/10/2024 15:12 Note Text: CARE MANAGEMENT: ASSESSMENT AND DISCHARGE PLAN SERVICE DATE: May 10, 2024 SERVICE TIME: 3:10 PM PCP: Praful Su MD Primary Contact: Extended Emergency Contact Information Primary Emergency Contact: Anne Solares (niece) Mobile Relation: Relative Secondary Emergency Contact: OttoElisabeth Mobile Relation: Sister Admission Status: Inpatient Insurance Provider: [facility] MEDICARE PPO Discharge Planning requested by: Per Department Practice Potential Transition Plans To Be Determined Advance Directives Current Advance Directive: Health Care Power of Manager Care In Chart: Yes Up To Date and Valid: Yes Current Living Arrangements and Support Lives with: Alone Type of Residence: Private Residence (Apartment or Condo) Does the patient have to climb stairs at home?: Yes, stairs outside the home Support: Family members How do you manage to accomplish the following: Independent: Ambulation, Transportation to appointments/community, Bathe/Shower, Dress, Meals/Meal Prep, Going to the bathroom, Medication Management Current Services/Equipment Current Post-Acute Service(s): None Discharge Planning Patient Goal(s): Be able to go home, General wellness [place] of Choice Explained: [place] of Choice Given: No Reason Not Given: No placements necessary Are you interested in bedside delivery of your medications? Yes Discharge Planning Participant(s): Patient Transport at Discharge: Transportation Arrangements: To Be Determined Needs Prior to Discharge: Needs Prior to Discharge: To Be Determined, Procedure Procedure Needed: chest tube placement Post-Acute Discharge Plan: Per chart review: pt admitted for R basilar pneumothorax. PMHx: RLL lobectomy 10/2023 and SBRT to RUL lesion 01/2024. Plan for IR for pleural pigtail insertion. Currently on RA, 6-click=23, 1 PIV. Prior to admission, patient lives alone, functionally independent, denies use of assist device/DME. CM will continue to follow and monitor for any changes to discharge care needs. Please see Treatment Team for Care Management Weekend/Holiday coverage. SIGNATURE: Derian Santana RN, BSN PATIENT NAME: Stevie Angeles DATE: May 10, 2024 TIME: 3:10 PM ECG01 Observed: 05/10/2024 2:56 PM Status: F Source: [facility] Ventricular Rate : 85 BPM Atrial Rate : 85 BPM P-R Interval : 104 ms QRS Duration : 90 ms Q-T Interval : 440 ms QTC Calculation(Bazett) : 523 ms Calculated R Dunlow : 50 degrees Calculated T Dunlow : 27 degrees SINUS RHYTHM WITH SHORT IL WITH PREMATURE ATRIAL COMPLEXES NONSPECIFIC ST ABNORMALITY PROLONGED QT INTERVAL OR TU FUSION, CONSIDER HYPOKALEMIA ABNORMAL ECG Confirmed by NI GUSMAN MD ([id number]) on 06/03/2024 1:00:13 AM NAME : STEVIE ANGELES PID : [id number] : 1950 Gender : Male Race : ORD : Procedure Date : May 10 2024 14:56:30 Edit Date : Jun 03 2024 01:00:16 Diagnosis: SINUS RHYTHM WITH SHORT IL WITH PREMATURE ATRIAL COMPLEXES NONSPECIFIC ST ABNORMALITY PROLONGED QT INTERVAL OR TU FUSION, CONSIDER HYPOKALEMIA ABNORMAL ECG Confirmed by NI GUSMAN MD ([id number]) on 06/03/2024 1:00:13 AM Test Reason : Location : [facility] : [id number] Overread By : NI GUSMAN MD Edited By : NI GUSMAN MD Referred By : , Acquired by : [id number], PT PNL PPP Collected: 05/10/2024 2:21 PM Status: F Source: [facility] Order Comment: Specimen Type : BLOOD SPECIMEN Ordering Facility: [facility] Address: [address] [place] [address] TYPE CODE TESTS RESULT OUT OF RANGE REFERENCE UNITS LAB 5902-2(LOINC) Prothrombin time 11.9 9.7-13.0 sec LAB 6301-6(LOINC) INR PPP 1.1 0.9-1.3 Result Comment: Vitamin K An tagonist (VKA) Therapeutic Range: INR 2 to 3 (Target INR of 2.5) Note: For patients treated with VKA drugs, such as warfarin, the [place] [employer] 2012 Guideline recommends a therapeutic INR range of 2 to 3 (target INR of 2.5). This recommendation includes high-risk patients with antiphospholipid syndrome with previous arterial or venous thromboembolism, current-generation mechanical or bioprosthetic aortic heart valve replacement. Note: Patients with mechanical aortic valve replacement and additional risk factors for thromboembolic events (atrial fibrillation, previous thromboembolism, LV dysfunction, hypercoagulable conditions) or an older generation mechanical AVR (i.e., ball in-Cage) or any mechanical MVR should have a INR therapeutic range of 2.5 to 3.5 (target INR of 3). Guyatt GH, et al. Chest 2012, 141:7S-47S Vicki RA, et al. [facility] 2017, 70: 252-289 Performed By: #### 04414-2, 51991-5 #### [facility] CLIA [id number] [address] [place] [address] [place] APTT PPP Collected: 2:21 PM Status: F Source: [facility] Order Comment: Specimen Type : BLOOD SPECIMEN Ordering Facility: [facility] Address: [address] [place], [place] [address] TYPE CODE TESTS RESULT OUT OF RANGE REFERENCE UNITS LAB 57766-4(LOINC) aPTT PPP 28.7 23.0-32.4 sec Performed By: #### 43898-7, 60692-5 #### [facility] CLIA [id number] [address] [place], [place] [address] [place] CBC PNL BLD AUTO Collected: 2:21 PM Status: F Source: [facility] Order Comment: Specimen Type : BLOOD SPECIMEN Ordering Facility: [facility] Address: [address] [place] [address] TYPE CODE TESTS RESULT OUT OF RANGE REFERENCE UNITS LAB 6690-2(LOINC) WBC # Bld Auto 7.62 3.70-11.00 k/uL LAB 789-8(LOINC) RBC # Bld Auto 4.62 4.20-6.00 m/uL LAB 718-7(INC) Hgb Bld-mCnc 14.6 13.0-17.0 g/dL LAB 4544-3(INC) Hct VFr Bld Auto 42.4 39.0-51.0 % LAB 787-2(INC) MCV RBC Auto 91.8 80.0-100.0 fL LAB 785-6(INC) MCH RBC Qn Auto 31.6 26.0-34.0 pg LAB 786-4([facility]) MCHC RBC Auto-mCnc 34.4 30.5-36.0 g/dL LAB 51437-7(INC) RDW RBC-Rto 13.9 11.5-15.0 % LAB 777-3(INC) Platelet # Bld Auto 229 150-400 k/uL LAB 24616-8(INC) PMV Bld Auto 8.7 Low 9.0-12.7 fL LAB 771-6([facility]) nRBC # Bld Auto <0.01 <0.01 k/uL Performed By: #### 13306-3 # ### [facility] CLIA [id number] [address] [place] [id number] [place] [address] OF [facility] COMP METAB 2000 PNL SERPL Collected: 2:21 PM Status: F Source: [facility] Order Comment: Specimen Type : BLOOD SPECIMEN Ordering Facility: [facility] Address: [address] [place] [address] TYPE CODE TESTS RESULT OUT OF RANGE REFERENCE UNITS LAB 2885-2(LOINC) Prot SerPl-mCnc 7.1 6.3-8.0 g/dL LAB 1751-7(LOINC) Albumin SerPl-mCnc 4.3 3.9-4.9 g/dL LAB 01638-6(LOINC) Calcium SerPl-mCnc 10.0 8.5-10.2 mg/dL LAB 1975-2(LOINC) Bilirub SerPl-mCnc 0.6 0.2-1.3 mg/dL LAB 6768-6(LOINC) ALP SerPl-cCnc 72 38-113 U/L LAB 1920-8(LOINC) AST SerPl-cCnc 20 14-40 U/L LAB 1742-6(LOINC) ALT SerPl-cCnc 23 10-54 U/L LAB 2345-7(LOINC) Glucose SerPl-mCnc 109 High 74-99 mg/dL Result Comment: The [place] Diabetes Association (ADA) provides guidance for cutoff values for fasting glucose and random glucose. The ADA defines fasting as no caloric intake for at least 8 hours. Fasting plasma glucose results between 100 to 125 mg/dL indicate increased risk for diabetes (prediabetes). Fasting plasma glucose results greater than or equal to 126 mg/dL meet the criteria for diagnosis of diabetes. In the absence of unequivocal hyperglycemia, results should be confirmed by repeat testing. In a patient with classic symptoms of hyperglycemia or hyperglycemic crisis, random plasma glucose results greater than or equal to 200 mg/dL meet the criteria for diagnosis of diabetes. Reference: Standards of Medical Care in Diabetes 2016, [place] [employer]. Diabetes Care. 2016.39(Suppl 1). LAB 3094-0(LOINC) BUN SerPl-mCnc 7 Low 9-24 mg/ dL LAB 2160-0(LOINC) Creat SerPl-mCnc 0.59 Low 0.73-1.22 mg/dL LAB 2951-2(LOINC) Sodium SerPl-sCnc 137 136-144 mmol/L LAB 2823-3(LOINC) Potassium SerPl-sCnc 3.5 Low 3.7-5.1 mmol/L LAB 2075-0(LOINC) Chloride SerPl-sCnc 98 98-107 mmol/L LAB 2028-9(LOINC) CO2 SerPl-sCnc 24 22-30 mmo l/L LAB 98705-8(LOINC) Anion Gap SerPl-sCnc 15 8-15 mmol/L LAB 16606-7([facility]) Creatinine + eGFR Pnl SerPlBld 104 >=60 mL/min/1 .73m??? Result Comment: Estimated Gl omerular Filtration Rate (eGFR) is calculated using the 2020 CKD-EPI creatinine equation. This equation utilizes serum creatinine, sex, and age as parameters. The creatinine assay has traceable calibration to isotope dilution-mass spectrometry. Refer to KDIGO guidelines for clinical interpretation. In patients with unstable renal function, e.g. those with acute kidney injury, the eGFR may not accurately reflect actual GFR. Performed By: #### 79033-3 # ### [facility] CLIA [id number] [address] [place] [address] [place] HISTORY PHYSICAL Observed: 05/10/2024 2:00 PM Status: COMPLETED Source: [facility] HNO ID: [id number] Author: FAY CHILDRESS APRN.PROGRAM SUPPORT ASSISTANT Service: Thoracic Surgery Author Type: Nurse Practitioner Type: H&P Filed: 05/10/2024 14:00 Note Text: .[facility] NURSING PROG Observed: 05/10/2024 1:03 PM Status: COMPLETED Source: [facility] HNO ID: [id number] Author: CINDY RUIZ RN Service: Nursing Author Type: Registered Nurse Type: Nursing Progress Note Filed: 05/10/2024 13:03 Note Text: Transfer Note: PATIENT NAME: Stevie Angeles Patient Location: [address] Room: [place] [address] Patient transferred into room/unit [facility] in stable condition. Actions taken: No futher actions taken at this time. Will continue to monitor and check with patient. GABI Sadler PROGRESS Observed: 05/09/2024 12:55 PM Status: COMPLETED Source: [facility] HNO ID: [id number] Author: ROMINA BEDOLLA APRN.PROGRAM SUPPORT ASSISTANT Service: ? Author Type: Nurse Practitioner Type: Progress Notes Filed: 05/09/2024 17:39 Note Text: Heart, Vascular AND Thoracic [place] Department of Thoracic Surgery VIRTUAL VIDEO VISIT ESTABLISHED OUTPATIENT VISIT SERVICE DATE: 05/09/2024 Patient: Stevie Angeles SERVICE TIME: 1:00 : 1950 This is a virtual video visit. It required patient-provider interaction for the medical decision making as documented below. Stevie Angeles has consented to this video encounter. I have communicated my name and active licensure. The patient's identity and physical location were verified at the time of this visit. Either the patient or their legal claims service representative has been informed of the risks and benefits of -- and alternatives to -- treatment through a remote evaluation and consents to proceed with the evaluation remotely. PAST MEDICAL HISTORY Diagnosis Date Abdominal aortic aneurysm (HCC) without rupture Elevated PSA Hearing loss HTN (hypertension) Lumbosacral neuritis Malignant neoplasm of prostate (HCC) Other and unspecified hyperlipidemia Prostate cancer (HCC) 2020 xrt at [facility] [place] Smoker former quit 2021 Spinal stenosis of lumbar region with neurogenic claudication PAST SURGICAL HISTORY Procedure Laterality Date COLONOSCOPY 05/28/2008 HERNIA REPAIR HX age 20 PROSTATE BIOPSY HX 2020 REMOVAL OF LUNG,LOBECTOMY Right 11/15/2023 Robotic-assisted right lower lobectomy with right lower lobe bronchoplasty closure of airway and mediastinal and hilar lymph node dissection, intercostal and phrenic nerve block FAMILY HISTORY Problem Relation Age of Onset other (high blood pressure [Other]) Mother Diabetes Mother Hearing Loss Mother Prostate Cancer Other Social History Tobacco Use Smoking status: Former Current packs/day: 0.00 Average packs/day: 1 pack/day for 40.0 years (40.0 ttl pk-yrs) Types: Cigarettes Start date: 07/1981 Quit date: 07/2021 Years since quittin.7 Passive exposure: Past Smokeless tobacco: Never Substance Use Topics Alcohol use: Not Currently Alcohol/week: 6.0 standard drinks of alcohol Types: 6 Glasses of wine per week Drug use: No ALLERGIES No Known Allergies CURRENT MEDICATIONS gabapentin (NEURONTIN) 300 mg capsule TAKE 2 CAPSULES BY MOUTH 3 TIMES A DAY lisinopril-hydroCHLOROthiazide (ZESTORETIC) 20-12.5 mg per tablet Take 1 tablet by mouth once daily. Patient should start on December 19, 2023. amLODIPine (NORVASC) 5 mg tablet Take 1 tablet by mouth once daily. Patient should start on December 19, 2023. fluticasone-salmeterol (WIXELA INHUB) 250-50 mcg/dose inhaler Inhale 1 Puff as instructed two times a day. atorvastatin (LIPITOR) 20 mg tablet Take 1 tablet by mouth once daily. REVIEW OF SYSTEMS: PAIN ASSESSMENT: Negative for pain, history of chronic pain, or current treatment for a chronic pain condition. GENERAL: Negative for: Weight loss or gain, Fever or Chills, Weakness and Sleep difficulties. RESPIRATORY: Positive for: SOB with exertion. Uses daily inhaler GASTROINTESTINAL: Negative for: Trouble swallowing, Heartburn, Change in bowel habits, Blood in stool, Dark black stools PHYSICAL EXAMINATION: VIDEO EXAM: (if completed, performed via video enabled technology) GENERAL: alert and appropriate, in no distress, well-hydrated, well nourished, and happy, smiling, interactive HEAD: normocephalic, no abnormality or lesion noted RESPIRATORY: breathing non-labored CHEST: equal chest rise with normal respiratory effort PATIENT ENTERED QUESTIONNAIRE SCORES 10/26/2023 PHQ-9 PHQ-2 Score 0 10/26/2023 10/04/2017 ARIELLA - 2/7 SCORES ARIELLA-2 Score 0 0 05/09/2024 05/14/2018 03/23/2017 PROMIS Global Health - (T-Scores - the mean of general population = 50. Five points is a clinically meaningful difference.) Physical T-Score 44.9 54.1 44.9 Mental T-Score 53.3 53.3 38.8 I personally spent 30 minutes in total time involved in the management and care of this patient. Romina Bedolla APRN.[facility] 2024 Part of this note was copied from previous note, all content has been individually reviewed, updated as necessary, and thoroughly reviewed. [facility] - OUTPATIENT THORACIC SURGERY CLINIC NOTE PT NAME: Stevie Angeles [facility] NO: [id number] THORACIC SURGEON: Paula Escobar M.D. 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 - Extensive post-obstructive changes with acute and organizing bronchopneumonia with suppurative exudate and microabscess formation. - Seven hilar/peribronchial lymph nodes, negative for tumor (0/7). - Vascular margin negative for tumor. B. Lymph node, level 9R, excision: - Negative for tumor (0/1). C. Lymph node, level 8R, excision: - Negative for tumor (0/1). D. Lymph node, level 8R, excision: - Negative for tumor (0/1). Few giant cells. E. Lymph node, level 10R, excision: - Negative for tumor (0/1). F. Lymph node, level 11R, excision: - Negative for tumor (0/1). G. Lung, additional airway, excision: - Keratinizing squamous cell carcinoma. - Bronchial margin negative for tumor Diagnosis Comment A. Selected slides from part A (including the inked margin) were reviewed at the [facility] thoracic pathology consensus conference on 11/23/23. Dr. Fauzia Oseguera, Dr. Alexis Altman, Dr. Fitch and Dr. Romina Bryan were present and concurred with this interpretation. The status of the margins was discussed with Dr. Escobar by email on 11/23/23 and discussed at the consensus conference. Because of the extensive nature of the suppurative process, margin assessment is difficult. G. The final bronchial margin is negative for tumor. Block for additional Biomarkers/Molecular studies A7 Synoptic Report LUNG 8th Edition - Protocol posted: 11/17/2021LUNG: RESECTION - All Specimens SPECIMEN Procedure Lobectomy Specimen Laterality Right TUMOR Tumor Focality Single focus Tumor Site Lower lobe of lung Tumor Size Total Tumor Size (size of entire tumor) Greatest Dimension (Centimeters): 2.5 cm Additional Dimension (Centimeters) 2.5 cm 1.8 cm Histologic Type Invasive squamous cell carcinoma, keratinizing Histologic Grade G2, moderately differentiated Spread Through Air Spaces (ROBIN) Not identified Visceral Pleura Invasion Not identified Direct Invasion of Adjacent Structures Not applicable (no adjacent structures present) Treatment Effect No known presurgical therapy Lymphovascular Invasion Not identified MARGINS Margin Status for Invasive Carcinoma Due to extensive suppuration, it is unclear whether the inked edge represents a true hilar soft tissue or parenchymal margin; discussed with Dr. Escobar on 11/23/23. The bronchial and vascular margins are negative. Margin Status for Non-Invasive Tumor Not applicable REGIONAL LYMPH NODES Lymph Node(s) from Prior Procedures No known prior lymph node sampling performed Regional Lymph Node Status All regional lymph nodes negative for tumor Number of Lymph Nodes Examined 12 Lan Site(s) Examined 8R: Para-esophageal (below patti) 9R: Pulmonary ligament 10R: Hilar 11R: Interlobar Right: hilar/peribronchial PATHOLOGIC STAGE CLASSIFICATION (pTNM, AJCC 8th Edition) Reporting of pT, pN, and (when applicable) pM categories is based on information available to the pathologist at the time the report is issued. As per the AJCC (Chapter 1, 8th Ed.) it is the managing physician?s responsibility to establish the final pathologic stage based upon all pertinent information, including but potentially not limited to this pathology report. pT Category pT1c pN Category pN0 ADDITIONAL FINDINGS Additional Findings Inflammation: Acute and organizing bronchopneumonia Post-obstructive changes REASON FOR VISIT: Post-operative visit HPI: Stevie Angeles is a 73 year old male ex-smoker 40 pack years (quit 2021) with history of prostate cancer and squamous cell skin cancer, who was found to have lung nodules on surveillance of known AAA. CTA chest 05/17/23 revealed nodular opacification in the right lower lobe with confluent appearance near hilum. PET/CT 06/19/23 showed intensive uptake associated with the 1.5 x 2.2 cm RUL lesion (SUV 10.3), medial right lower lobe solid lesion with groundglass extension (SUV 10) and mild uptake with prominent paratracheal node (SUV 2.2). Transbronchial biopsy 06/20/23 non-diagnostic and surveillance CT scan showed further enlargement of known RLL and RUL lesions. Transbronchial biopsy/EBUS repeated 09/19/23, biopsy of RLL lesion showed squamous cell carcinoma (lymph node stations 11RS and 11RI were neg). Case discussed at Tumor Board, decision was for upfront resection with consideration of adjuvant therapy once final pathology identified. On 11/15/23 he underwent Robotic-assisted right lower lobectomy with right lower lobe bronchoplasty closure of airway and mediastinal and hilar lymph node dissection, intercostal and phrenic nerve block by Dr Escobar. Noted an abscess. He was discharged 11/19/23. He had SBRT to right upper lobe nodule 02/01/24. PHYSICAL EXAM: VITAL SIGNS: There were no vitals taken for this visit. Room air 174 lb Incision location: Right Thoracoport sites and Right Old chest tube sites Incision Assessment: per patient-Well approximated and no drainage, swelling, erythema or warmth Drain/Tubes: N/A IMAGING/TESTS: CT Chest 05/08/24: INTERVAL HISTORY: Stevie Angeles is seen via a virtual visit today following CT scan of the chest and PFTs. Since last seen, he underwent SBRT to a right upper lobe nodule. He has been doing well, and denies cough, worsening SOB, hemoptysis, unintentional weight loss. He does occasionally have discomfort from the site of radiation. CT scan shows a large right pneumothorax. This appears to be getting larger when compared to CT scan done in December. Noted decrease in PFTs. Will discuss with Dr Escobar. He has follow up with Dr Goss in radiation oncology on 05/20, Dr Cantu in oncology 05/22. 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 SBRT to RUL nodule 02/01/24. Increasing right pneumothorax PLAN: - return in [address] chest, PFTs - oncology management with Dr Cantu, f/u 05/22/24 - radiation consult with Dr Goss 05/20/24 - pulmonary management with Dr Beltran 06/13/24 Romina Bedolla APRN.CNPAddendum 05/09/2024 Dr Escobar responded to my query after evaluation of the CT scan. He wishes for Mr Angeles to come in to be admitted to [facility] for placement of a right chest pigtail catheter. Sister Elisabeth called and notified per patient's instructions. Admission team notified as well. Fay Childress DNP notified of plan. Romina Bedolla APRN.PROGRAM SUPPORT ASSISTANT CT CHEST W IVCON Observed: 05/08/2024 2:21 PM Status: F Source: [facility] * * *Final Report* * * DATE OF EXAM: May 08 2024 2:21PM [facility] 0539 - CT CHEST W IVCON / PROCEDURE REASON: C34.90-Malignant neoplasm of unspecified part of unspecified bronchus or lung (H * * * * Physician Interpretation * * * * EXAMINATION: CHEST CT WITH CONTRAST CLINICAL HISTORY: Lung cancer status post right lower lobectomy Technique: Spiral CT acquisition of the chest from the thoracic inlet to the upper abdomen following IV contrast. MQ: CTCW_6 Contrast: 50 mL Omnipaque [address] Radiation dose: Integrated Dose-length product (DLP) for this visit = 239 mGy*cm CT Dose Reduction Employed: Automated exposure control(AEC) and iterative recon Comparison: CT 12/09/2023 RESULT: Limitations: None. Lines, tubes, and devices: None. Lung parenchyma and airways: Postoperative changes of right lower lobectomy. Large new cystic space in the resection bed with areas of septations and smaller surrounding cystic spaces. It measures approximately 14 x 14 cm (301:200). Primary differential for this is a multiloculated pneumothorax or less likely a large bulla. Stable right upper lobe spiculated nodule with cavitations, measuring 2 x 1.5 cm (301:101). Upper lobe predominant emphysema. Pleural space: No pleural effusion. No pleural thickening. Lower neck, lymph nodes, and mediastinum: Stable thyroid nodules. No lymphadenopathy in the supraclavicular, axillary, mediastinal, or hilar regions. Calcified subcarinal and right hilar lymph nodes consistent with remote granulomatous disease. Heart, pericardium, and thoracic vessels: The thoracic aorta and main pulmonary artery are normal in caliber. The cardiac chambers are normal in size. Coronary artery atherosclerotic calcifications are noted, although the study is not optimized for coronary assessment. No pericardial effusion or thickening. Bones and soft tissues: No destructive bone lesion. Chest wall is unremarkable. Upper abdomen: No abnormality in the imaged upper abdomen. Localizer images: No additional findings. IMPRESSION: 1. Postoperative changes of right lower lobectomy. Large new cystic space in the resection bed with areas of septations and smaller surrounding cystic spaces. Primary differential for this is a multiloculated pneumothorax or less likely a large bulla. 2. Stable right upper lobe spiculated nodule with cavitations. Agency Trainer: IMMANUEL Transcribe Date/Time: May 11 2024 3:35P Dictated by : IVON DALTON MD This examination was interpreted and the report reviewed and electronically signed by: IVON DALTON MD on May 11 2024 3:46PM EST [id number] NURSING PROG Observed: 05/08/2024 1:30 PM Status: COMPLETED Source: [facility] HNO ID: [id number] Author: IRISH AMOR RN Service: PICC Team Author Type: Registered Nurse Type: Nursing Progress Note Filed: 05/08/2024 14:09 Note Text: Radiology Service Progress Note DATE OF SERVICE: May 08, 2024 TIME: 2:07 PM PATIENT IDENTITY VERIFICATION COMPLETED USING TWO (2) STANDARD IDENTIFIERS: Name and Date of confirmed by patient verbally and Name and Date of confirmed by identification band. FALL SCREENING: Has the patient had 2 falls in the last year or 1 fall with injury or currently using an Ambulatory Assistive Device (Walker, Cane, Wheelchair, Crutches, etc.)? No PATIENT GENDER DATA: Assigned male at ALLERGIES: Reviewed and unchanged CONTRAST ALLERGY: No EXAM: CT -CONTRAST INDUCED NEPHROPATHY RISK FACTORS: Patient age > 60 years CREATININE: Creatinine Date Value Ref Range Status 05/07/2024 0.73 0.73 - 1.22 mg/dL Final 11/19/2023 0.61 (L) 0.73 - 1.22 mg/dL Final 11/18/2023 0.61 (L) 0.73 - 1.22 mg/dL Final Estimated Glomerular Filtration Rate Date Value Ref Range Status 05/07/2024 97 >=60 mL/min/1.73m? Final Comment: Estimated Glomerular Filtration Rate (eGFR) is calculated using the 2020 CKD-EPI creatinine equation. This equation utilizes serum creatinine, sex, and age as parameters. The creatinine assay has traceable calibration to isotope dilution-mass spectrometry. Refer to KDIGO guidelines for clinical interpretation. In patients with unstable renal function, e.g. those with acute kidney injury, the eGFR may not accurately reflect actual GFR. eGFR- Date Value Ref Range Status 02/08/2021 >60 Final P.O.C.T. RESULTS: POC done: Yes, See Lab Tab TREATMENT: N/A IV SITE: Ambulatory: A peripheral IV was started in the Right antecubital site with a Angio cath: 22 gauge. IV SITE APPEARANCE: Clean,Dry and Intact SIGNATURE: Irish Amor RN PATIENT NAME: Stevie Angeles DATE: May 08, 2024 TIME: 2:07 PM PROGRESS Observed: 05/08/2024 1:30 PM Status: COMPLETED Source: [facility] HNO ID: [id number] Author: DEN TORRES TECHNOLOGIST Service: Radiology Author Type: Technologist Type: Progress Notes Filed: 05/08/2024 14:20 Note Text: Radiology Service Progress Note PATIENT NAME: Stevie Angeles DATE OF SERVICE: May 08, 2024 TIME: 2:12 PM PATIENT IDENTITY VERIFICATION COMPLETED USING TWO (2) IDENTIFIERS: Name and Date of confirmed by patient verbally and Name and Date of confirmed by identification band. FALL SCREENING: Has the patient had 2 falls in the last year or 1 fall with injury or currently using an Ambulatory Assistive Device (Walker, Cane, Wheelchair, Crutches, etc.)? No PATIENT GENDER DATA: Assigned male at PATIENT RELEVANT IMPLANT DATA REVIEWED: Yes PATIENT PRESENTS WITH AN IMPLANTABLE OR ATTACHED PAUNCH TRIMMER: No RADIOLOGY DEPARTMENT: CT; Exam(s) Completed: Chest PERIPHERAL IV DATA: Site assessment: Clean,Dry and Intact, Site disposition Discontinued SIGNED BY: TECHNOLOGIST Bettye May 08, 2024 2:12 PM PROGRESS Observed: 05/08/2024 1:23 PM Status: COMPLETED Source: [facility] HNO ID: [id number] Author: NEHEMIAS DENG RRT Service: ? Author Type: Registered Resp Therapist Type: Progress Notes Filed: 05/08/2024 13:24 Note Text: PULM FUNCTION: Provider: Romina Bedolla APRN.PROGRAM SUPPORT ASSISTANT Assisting Tech: Nehemias Deng RRT Spirometry w/BD: 1 DLCO: 1 BAS METAB 2000 PNL SERPL Collected: 12/2024 12:48 PM Status: F Source: [facility] Order Comment: Specimen Type : BLOOD SPECIMEN Ordering Facility: [facility] Address: [address] [place] [address] TYPE CODE TESTS RESULT OUT OF RANGE REFERENCE UNITS LAB 2345-7(LOINC) Glucose SerPl-mCnc 124 High 74-99 mg/dL Result Comment: The [place] Diabetes Association (ADA) provides guidance for cutoff values for fasting glucose and random glucose. The ADA defines fasting as no caloric intake for at least 8 hours. Fasting plasma glucose results between 100 to 125 mg/dL indicate increased risk for diabetes (prediabetes). Fasting plasma glucose results greater than or equal to 126 mg/dL meet the criteria for diagnosis of diabetes. In the absence of unequivocal hyperglycemia, results should be confirmed by repeat testing. In a patient with classic symptoms of hyperglycemia or hyperglycemic crisis, random plasma glucose results greater than or equal to 200 mg/dL meet the criteria for diagnosis of diabetes. Reference: Standards of Medical Care in Diabetes 2016, [place] Diabetes Association. Diabetes Care. 2016.39(Suppl 1). LAB 3094-0(LOINC) BUN SerPl-mCnc 9 9-24 mg/ dL LAB 2160-0(LOINC) Creat SerPl-mCnc 0.73 0.73-1.22 mg/dL LAB 2951-2(LOINC) Sodium SerPl-sCnc 135 Low 136-144 mmol/L LAB 2823-3(LOINC) Potassium SerPl-sCnc 3.9 3.7-5.1 mmol/L LAB 2075-0(LOINC) Chloride SerPl-sCnc 94 Low 98-107 mmol/L LAB 2028-9(LOINC) CO2 SerPl-sCnc 29 22-30 mmo l/L LAB 99828-6(LOINC) Anion Gap SerPl-sCnc 12 8-15 mmol/L LAB 55927-3(LOINC) Calcium SerPl-mCnc 10.2 8.5-10.2 mg/dL LAB 31429-5(LOINC) Creatinine + eGFR Pnl SerPlBld 97 >=60 mL/min/1. 73m??? Result Comment: Estimated Gl omerular Filtration Rate (eGFR) is calculated using the 202 CKD-EPI creatinine equation. This equation utilizes serum creatinine, sex, and age as parameters. The creatinine assay has traceable calibration to isotope dilution-mass spectrometry. Refer to KDIGO guidelines for clinical interpretation. In patients with unstable renal function, e.g. those with acute kidney injury, the eGFR may not accurately reflect actual GFR. Performed By: #### 82469-9, 14688-3 #### [facility] CLIA [id number] [address] [place] [address] [place] LIPID 1996 PNL SERPL Collected: 025 12:48 PM Status: F Source: [facility] Order Comment: Specimen Type : BLOOD SPECIMEN Ordering Facility: [facility] Address: [address] [place] [address] TYPE CODE TESTS RESULT OUT OF RANGE REFERENCE UNITS LAB 2093-3(LOINC) Cholest SerPl-mCnc 154 <200 mg/dL Result Comment: <200 mg/dL, Desirable 200-239 mg/dL, Borderline high >239 mg/dL, High LAB 2571-8(LOINC) Trigl SerPl-mCnc 129 <150 mg/dL Result Comment: <150 mg/dL, Normal 150-199 mg/dL, Borderline high 200-499 mg/dL, High >499 mg/dL, Very high LAB 2085-9(LOINC) HDLc SerPl-mCnc 61 >39 mg/dL Result Comment: 40-59 mg/dL, Acceptable >59 mg/dL, High: Negative risk factor for coronary heart disease <40 mg/dL, Low: Positive risk factor for coronary heart disease LAB 92837-4(LOINC) NonHDLc SerPl-mCnc 93 <130 mg/dL Result Comment: <130 mg/dL, Optimal 130-159 mg/dL, Near optimal/above optimal 160-189 mg/dL, Borderline high 190-219 mg/dL, High >219 mg/dL, Very high Secondary prevention optimal non HDL Cholesterol levels are recommended to be <100 mg/dL LAB FT FASTING TIME 15 hrs LAB 37736-5(LOINC) VLDLc SerPl Calc-mCnc 26 <30 mg/dL LAB 9830-1(LOINC) Cholest/HDLc SerPl 2.52 <5.10 LAB 2089-1(LOINC) LDLc SerPl-mCnc 67 <100 mg/dL Result Comment: <100 mg/dL, Optimal 100-129 mg/dL, Near optimal/above optimal 130-159 mg/dL, Borderline high 160-189 mg/dL, High >189 mg/dL, Very high Secondary prevention optimal LDL Cholesterol levels are recommended to be < 70 mg/dL LAB 20921-7(LOINC) LDLc/HDLc SerPl 1.10 <2.54 Result Comment: Reference: 1. National Cholesterol Education Program ATP III Guideline At-A-Glance Quick Desk Reference: National Heart, Lung, and Blood [place]. National Institutes of Health. 2001: NIH Publication No. 01-3305. 2. An International Atherosclerosis Society position paper: global recommendations for the management of dyslipidemia: executive summary, Atherosclerosis. 2014: 232(2):410-413. Performed By: #### 12762-7, 57402-0 #### [facility] CLIA [id number] [address] [place] [address] [facility] HEMOCCULT STL QL IA Collected: 05/01/2024 8:[address] atus: F Source: [facility] Order Comment: Specimen Type : STOOL SPECIMEN Ordering Facility: [facility] Address: [address] [place] [address] TYPE CODE TESTS RESULT OUT OF RANGE REFERENCE UNITS LAB 03812-5([facility]) Hemoccult Stl Ql IA Negative Negative Performed By: #### 82749-0 # ### [facility] CLIA [id number] [address] [place] [address] PROGRESS Observed: 04/25/2024 2:36 PM Status: COMPLETED Source: [facility] HNO ID: [id number] Author: PRAFUL SU MD Service: ? Author Type: Physician Type: Progress Notes Filed: 04/25/2024 14:40 Note Text: SUBJECTIVE: Stevie Angeles is a 73 year old male Patient presents with: Follow Up He has been doing okay after surgery for lung cancer. CURRENT MEDICATIONS: Current Outpatient Medications on File Prior to Visit Medication Sig lisinopril-hydroCHLOROthiazide (ZESTORETIC) 20-12.5 mg per tablet Take 1 tablet by mouth once daily. Patient should start on December 19, 2023. amLODIPine (NORVASC) 5 mg tablet Take 1 tablet by mouth once daily. Patient should start on December 19, 2023. fluticasone-salmeterol (WIXELA INHUB) 250-50 mcg/dose inhaler Inhale 1 Puff as instructed two times a day. atorvastatin (LIPITOR) 20 mg tablet Take 1 tablet by mouth once daily. No current facility-administered medications on file prior to visit. PROBLEM LIST: ACTIVE PROBLEM LIST Glucose Intolerance (Impaired Glucose Tolerance) Primary Hypertension Mixed Hyperlipidemia Cigarette Nicotine 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 Paresthesias Lumbosacral Neuritis Infrarenal Abdominal Aortic Aneurysm (Aaa) Without Rupture (Hcc) Hdl Deficiency Prostate Cancer (Hcc) Paroxysmal Atrial Fibrillation (Hcc) Cancer of Lower Lobe of Right Lung (Hcc) Postoperative Pain Stage 1 Mild Copd By Gold Classification (Hcc) Abscess of Lower Lobe of Right Lung Without Pneumonia (Hcc) Pleural Effusion, Left Atelectasis ALLERGIES: Patient has no known allergies. REVIEW OF SYSTEMS:GENERAL: No weight loss, malaise or fevers RESPIRATORY: Severe COPD CARDIOVASCULAR: Negative for chest pain, leg swelling, hypertension, CHF or palpitations BP 100/58 (BP Site: Left Arm, BP Position: Sitting, BP Cuff Size: Regular Adult) Pulse 76 Temp 36.4 ?C (97.5 ?F) (Temporal) Wt 80.1 kg (176 lb 9.4 oz) BMI 27.66 kg/m? General Appearance: Well appearing, alert, in no acute distress, well-hydrated, well nourished. Lungs: decreased breath sounds, clear to auscultation, no wheezing or rhonchi Heart: NSR Neurologic: grossly intact ASSESSMENT/PLAN: 1. Essential hypertension - ICD9: 401.9, ICD10: I10 (primary diagnosis) - Controlled - Continue current medications - Recommend home blood pressure monitoring, to bring results to next visit - Encouraged sodium restriction, DASH or Mediterranean diet - Recommend regular aerobic exercise - BASIC METABOLIC PANEL 2. Spinal stenosis of lumbar region with neurogenic claudication - ICD9: 724.03, ICD10: M48.062 Stable sx. - GABAPENTIN 300 MG CAPSULE 3. Paresthesias - ICD9: 782.0, ICD10: R20.2 - GABAPENTIN 300 MG CAPSULE 4. Prostate cancer (HCC) - ICD9: 185, ICD10: C61 Stable, followed by urology 5. Mixed hyperlipidemia - ICD9: 272.2, ICD10: E78.2 - Controlled - Continue current medications - Counseled on healthy diet and regular exercise - LIPID PANEL BASIC 6. Screening for colon cancer - ICD9: V76.51, ICD10: Z12.11 - IMMUNOCHEMICAL FECAL OCCULT BLOOD TEST Praful Su, MDMEDICATION: Reviewed with patient REVIEW OF RECORDS: Progress note PATIENT EDUCATION: Discussed diet and Discussed exercise/therapy REVIEW OF TESTS: Labs Praful Su MD CNOV Observed: 04/25/2024 2:20 PM Status: COMPLETED Source: [facility] Office Visit ([facility]) STEVIE ANGELES ([id number]) 1950 M DEF Date Time Provider Department 04/25/24 2:20 PM PRAFUL SU [facility] During your visit today, we recorded the following information about you: Temperature Pulse Blood pressure Weight 97.5 degrees 76/minute 100/58 80.1 kg Praful Su MD 04/25/2024 2:40 PM Signed SUBJECTIVE: Stevie Angeles is a 73 year old male Patient presents with: Follow Up He has been doing okay after surgery for lung cancer. CURRENT MEDICATIONS: Current Outpatient Medications on File Prior to Visit Medication Sig lisinopril-hydroCHLOROthiazide (ZESTORETIC) 20-12.5 mg per tablet Take 1 tablet by mouth once daily. Patient should start on December 19, 2023. amLODIPine (NORVASC) 5 mg tablet Take 1 tablet by mouth once daily. Patient should start on December 19, 2023. fluticasone-salmeterol (WIXELA INHUB) 250-50 mcg/dose inhaler Inhale 1 Puff as instructed two times a day. atorvastatin (LIPITOR) 20 mg tablet Take 1 tablet by mouth once daily. No current facility-administered medications on file prior to visit. PROBLEM LIST: ACTIVE PROBLEM LIST Glucose Intolerance (Impaired Glucose Tolerance) Primary Hypertension Mixed Hyperlipidemia Cigarette Nicotine 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 Paresthesias Lumbosacral Neuritis Infrarenal Abdominal Aortic Aneurysm (Aaa) Without Rupture (Hcc) Hdl Deficiency Prostate Cancer (Hcc) Paroxysmal Atrial Fibrillation (Hcc) Cancer of Lower Lobe of Right Lung (Hcc) Postoperative Pain Stage 1 Mild Copd By Gold Classification (Hcc) Abscess of Lower Lobe of Right Lung Without Pneumonia (Hcc) Pleural Effusion, Left Atelectasis ALLERGIES: Patient has no known allergies. REVIEW OF SYSTEMS:GENERAL: No weight loss, malaise or fevers RESPIRATORY: Severe COPD CARDIOVASCULAR: Negative for chest pain, leg swelling, hypertension, CHF or palpitations BP 100/58 (BP Site: Left Arm, BP Position: Sitting, BP Cuff Size: Regular Adult) Pulse 76 Temp 36.4 ?C (97.5 ?F) (Temporal) Wt 80.1 kg (176 lb 9.4 oz) BMI 27.66 kg/m? General Appearance: Well appearing, alert, in no acute distress, well-hydrated, well nourished. Lungs: decreased breath sounds, clear to auscultation, no wheezing or rhonchi Heart: NSR Neurologic: grossly intact ASSESSMENT/PLAN: 1. Essential hypertension - ICD9: 401.9, ICD10: I10 (primary diagnosis) - Controlled - Continue current medications - Recommend home blood pressure monitoring, to bring results to next visit - Encouraged sodium restriction, DASH or Mediterranean diet - Recommend regular aerobic exercise - BASIC METABOLIC PANEL 2. Spinal stenosis of lumbar region with neurogenic claudication - ICD9: 724.03, ICD10: M48.062 Stable sx. - GABAPENTIN 300 MG CAPSULE 3. Paresthesias - ICD9: 782.0, ICD10: R20.2 - GABAPENTIN 300 MG CAPSULE 4. Prostate cancer (HCC) - ICD9: 185, ICD10: C61 Stable, followed by urology 5. Mixed hyperlipidemia - ICD9: 272.2, ICD10: E78.2 - Controlled - Continue current medications - Counseled on healthy diet and regular exercise - LIPID PANEL BASIC 6. Screening for colon cancer - ICD9: V76.51, ICD10: Z12.11 - IMMUNOCHEMICAL FECAL OCCULT BLOOD TEST Praful Su MD MEDICATION: Reviewed with patient REVIEW OF RECORDS: Progress note PATIENT EDUCATION: Discussed diet and Discussed exercise/therapy REVIEW OF TESTS: Labs Praful Su MD Allergies As of Date: 04/25/2024 (No Known Allergies) Date Reviewed: 04/25/2024 Reviewed by: Marlee Mejia LPN - Fully Assessed Reason for Visit: Follow Up [171] Primary Visit Diagnosis:Essential hypertension [I10] Other Visit Diagnoses:Spinal stenosis of lumbar region with neurogenic claudication [M48.062] Paresthesias [R20.2] Prostate cancer (HCC) [C61] Mixed hyperlipidemia [E78.2] Screening for colon cancer [Z12.11] Order(s):gabapentin (NEURONTIN) 300 mg capsuleTAKE 2 CAPSULES BY MOUTH 3 TIMES A DAYDisp: 540 capsuleRfl: 3 BASIC METABOLIC PANEL [SQBMP] Order #: [id number] FUTURE LIPID PANEL BASIC [SQLIPB] Order #: [id number] FUTURE IMMUNOCHEMICAL FECAL OCCULT BLOOD TEST [SQIFOBT] Order #: [id number]. #:[id number] Prescriptions as of 04/25/2024 - gabapentin (NEURONTIN) 300 mg capsule TAKE 2 CAPSULES BY MOUTH 3 TIMES A DAY - lisinopril-hydroCHLOROthiazide (ZESTORETIC) 20-12.5 mg per tablet Take 1 tablet by mouth once daily. Patient should start on December 19, 2023. - amLODIPine (NORVASC) 5 mg tablet Take 1 tablet by mouth once daily. Patient should start on December 19, 2023. - fluticasone-salmeterol (WIXELA INHUB) 250-50 mcg/dose inhaler Inhale 1 Puff as instructed two times a day. - atorvastatin (LIPITOR) 20 mg tablet Take 1 tablet by mouth once daily. 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] 04/24/2023 Prostate cancer (HCC) [C61] 09/11/2023 Paroxysmal atrial fibrillation (HCC) [I48.0] 09/11/2023 Cancer of lower lobe of right lung (HCC) [C34.3*11/15/2023 Postoperative pain [G89.18] 11/16/2023 Stage 1 mild COPD by GOLD classification (HCC) *11/17/2023 Abscess of lower lobe of right lung without pne*11/17/2023 Pleural effusion, left [J90] 11/17/2023 Atelectasis [J98.11] 11/17/2023 Prescriptions ordered this encounter Disp Refills Start End GABAPENTIN 300 MG CAPSULE 540 * 3 04/25/2024 07/13/2025 Sig: TAKE 2 CAPSULES BY MOUTH 3 TIMES A DAY Medications Discontinued During This Encounter Prescriptions - gabapentin (NEURONTIN) 300 mg capsule (Discontinued) TAKE 2 CAPSULES BY MOUTH 3 TIMES A DAY - metoprolol tartrate, short acting, (LOPRESSOR) 25 mg tablet (Discontinued) Reported on 12/19/2023 - guaiFENesin (MUCINEX) 600 mg 12 hr tablet (Discontinued) Reported on 12/19/2023 Disposition: Return in about 6 months (around 10/23/2024). Follow-up and Disposition History for Encounter Date Provider Department Center 04/25/2024 [id number], NEI*[facility] Encounter Status:Closed by PRAFUL SU on 04/25/24 OFELIA Observed: 03/05/2024 12:00 AM Status: COMPLETED Source: [facility] Telephone (TYRONE) STEVIE ANGELES ([id number]) 1950 M DEF Date Time Provider Department 03/05/24 ELIAS GOSS During your visit today, we recorded the following information about you: Marlen Lam 03/05/2024 12:03 PM Signed LVM for return call to schedule; Please schedule telephone visit (follow-up) for the week of 05/20/[address] Ana Paula Giraldo [facility] 03/05/2024 12:13 PM Signed Patient received message to call to schedule a phone call on 05/[address] Goss, but he is already scheduled. Allergies As of Date: 03/05/2024 (No Known Allergies) Date Reviewed: 02/01/2024 Reviewed by: Melita Ramos RN - Fully Assessed Reason for Visit: Appointment [186] Prescriptions as of 03/05/2024 - lisinopril-hydroCHLOROthiazide (ZESTORETIC) 20-12.5 mg per tablet Take 1 tablet by mouth once daily. Patient should start on December 19, 2023. - metoprolol tartrate, short acting, (LOPRESSOR) 25 mg tablet Take 1 tablet by mouth two times a day. For prevention of atrial fibrillation after thoracic surgery, stop after 30 days then resume your normal blood pressure medication - guaiFENesin (MUCINEX) 600 mg 12 hr tablet Take 1 tablet by mouth every 12 hours. - amLODIPine (NORVASC) 5 mg tablet Take 1 tablet by mouth once daily. Patient should start on December 19, 2023. - fluticasone-salmeterol (WIXELA INHUB) 250-50 mcg/dose inhaler Inhale 1 Puff as instructed two times a day. - atorvastatin (LIPITOR) 20 mg tablet Take 1 tablet by mouth once daily. - gabapentin (NEURONTIN) 300 mg capsule TAKE 2 CAPSULES BY MOUTH 3 TIMES A DAY Problem List As Of Date 03/05/2024 Noted Resolved Glucose intolerance (impaired glucose tolerance*06/23/2010 Primary hypertension [I10] 06/23/2010 Mixed hyperlipidemia [E78.2] 06/23/2010 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*02/14/2011 Hypercholesteremia [E78.00] 09/15/2011 09/16/2011 Spinal stenosis of lumbar region with neurogeni*06/01/2015 Paresthesias [R20.2] 06/01/2015 Lumbosacral neuritis [M54.17] 12/23/2016 Infrarenal abdominal aortic aneurysm (AAA) with*02/08/2021 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] 04/24/2023 Prostate cancer (HCC) [C61] 09/11/2023 Paroxysmal atrial fibrillation (HCC) [I48.0] 09/11/2023 Cancer of lower lobe of right lung (HCC) [C34.3*11/15/2023 Postoperative pain [G89.18] 11/16/2023 Stage 1 mild COPD by GOLD classification (HCC) *11/17/2023 Abscess of lower lobe of right lung without pne*11/17/2023 Pleural effusion, left [J90] 11/17/2023 Atelectasis [J98.11] 11/17/2023 Encounter Status:Closed by MARLEN LAM on 03/05/24 PROGRESS Observed: 02/29/2024 11:39 AM Status: COMPLETED Source: [facility] HNO ID: [id number] Author: CRISTOPHER VILLAR MA Service: ? Author Type: License Examiner Type: Progress Notes Filed: 02/29/2024 11:45 Note Text: POPULATION HEALTH NAVIGATION OUTREACH Action/FYI Topic Due (Y or N) Comments Medicare Wellness Y PCP Follow up N Mammogram N Colorectal Cancer Screening Y A1C N Controlling BP Y Dilated Retinal Exam (CAIO) N KED (UACR and eGFR) N HCC Y Flu Vaccine Y Care Everywhere Reviewed DONE MyChart Activation ACTIVE Updated Appointment Note Y PATIENT HAD TO HANG UP BECAUSE HE WAS WAITING ON ANOTHER CALL FROM HEMATOLOGY PATIENT IS GETTING RADIATION THERAPY Reason for Outreach Care Gap/HCC or Scheduling Wellness Visits Care Gaps due: N/A Patient Contacted: Patient in other facility or Active Cancer Treatment - End Outreach Navigation Signature: Cristopher Villar MA February 29, 2024 11:45 AM PROGRESS Observed: 02/29/2024 11:30 AM Status: COMPLETED Source: [facility] HNO ID: [id number] Author: ELIAS GOSS MD Service: ? Author Type: Physician Type: Progress Notes Filed: 02/29/2024 12:23 Note Text: I have communicated my name and active licensure. The patient's identity and physical location were verified at the time of this visit. Either the patient or their legal claims service representative has been informed of the risks and benefits of -- and alternatives to -- treatment through a remote evaluation and consents to proceed with the evaluation remotely. Radiation Oncology - Follow Up Note PATIENT NAME: Stevie Angeles PATIENT DIAGNOSIS: 73 year old man with: Enlarging/hypermetabolic/cavitary RUL nodule c/w NSCLC, sA0xR5M3, Stage IA3, s/p SBRT 02/01/24 [3400 cGy/1 fx] Hx of SCCa of the RLL, s/p RA-right lower lobectomy/MLND 11/15/23 [2.4 cm focus of SCCa, margins-, 0/12 LN; pT1cN0 cM0] Hx of adenocarcinoma of the prostate, s/p ADT/EBRT completed 01/15/21, PSA 0.08 ng/mL Thoracic surgeon: Paula Escobar MD, PhD INTERVAL HISTORY: Mr. Angeles has a history of prostate cancer, diagnosed with biopsy on 09/24/20 (Gl 3+4=7, 8/12 cores+), iPSA 7.52 ng/mL, CT A/P 09/08/20 - no metastasis (4.3 cm infrarenal AAA w/o dissection). He was treated with Lupron (45 mg inj 11/05/20) and EBRT (7000 cGy/28 fx, completed 01/15/21, Dr. Neely). Most recent PSA is 0.08 ng/mL. He was diagnosed with SCCa of the RUL, managed with robotic-assisted right lower lobectomy/RLL bronchoplasty closure, mediastinal/hilar LND on 11/15/23 (Dr. Escobar). Pathology showed a 2.4 cm focus of SCCa, margins-, 0/12 LN; pT1cN0 cM0). He was referred for SBRT to a RUL nodule (2 x 1.4 cm on 12/09/23 post-op CT, cavitary, enlarging compared to 05/17/23 CTA, SUV 10.3 06/19/23 PET/CT; not biopsied). PFTs 07/04/23 showed FEV1 119%, DLCO 93%. SBRT was completed on 02/01/24. He reports having had some fatigue, but no pain. ALLERGIES No Known Allergies MEDICATIONS: lisinopril-hydroCHLOROthiazide (ZESTORETIC) 20-12.5 mg per tablet Take 1 tablet by mouth once daily. Patient should start on December 19, 2023. metoprolol tartrate, short acting, (LOPRESSOR) 25 mg tablet Take 1 tablet by mouth two times a day. For prevention of atrial fibrillation after thoracic surgery, stop after 30 days then resume your normal blood pressure medication (Patient not taking: Reported on 12/19/2023) guaiFENesin (MUCINEX) 600 mg 12 hr tablet Take 1 tablet by mouth every 12 hours. (Patient not taking: Reported on 12/19/2023) amLODIPine (NORVASC) 5 mg tablet Take 1 tablet by mouth once daily. Patient should start on December 19, 2023. fluticasone-salmeterol (WIXELA INHUB) 250-50 mcg/dose inhaler Inhale 1 Puff as instructed two times a day. atorvastatin (LIPITOR) 20 mg tablet Take 1 tablet by mouth once daily. gabapentin (NEURONTIN) 300 mg capsule TAKE 2 CAPSULES BY MOUTH 3 TIMES A DAY PHYSICAL EXAM: Deferred - telephone visit ASSESSMENT AND PLAN: 73 year old man with: 1. Enlarging/hypermetabolic/cavitary RUL nodule c/w NSCLC, vT3uH5B1, Stage IA3, s/p SBRT 02/01/24 [3400 cGy/1 fx] 2. Hx of SCCa of the RLL, s/p RA-right lower lobectomy/MLND 11/15/23 [2.4 cm focus of SCCa, margins-, 0/12 LN; pT1cN0 cM0] 3. Hx of adenocarcinoma of the prostate, s/p ADT/EBRT completed 01/15/21, PSA 0.08 ng/mL Mr. Angeles is doing well. CT is scheduled for 05/08/24. I will arrange for telephone follow-up in the week of 05/20/24. Signed by: Elias Goss MD cc: MD Kevin Nicholas MD Daniel Raymond, MD CNPTOUTREACH Observed: 02/29/2024 12:00 AM Status: COMPLETED Source: [facility] Patient Outreach (NETNAV) STEVIE ANGELES ([id number]) 1950 M DEF Date Time Provider Department 02/29/24 CRISTOPHER VILLAR During your visit today, we recorded the following information about you: Cristopher Villar MA 02/29/2024 11:45 AM Signed POPULATION HEALTH NAVIGATION OUTREACH Action/FYI Topic Due (Y or N) Comments Medicare Wellness Y PCP Follow up N Mammogram N Colorectal Cancer Screening Y A1C N Controlling BP Y Dilated Retinal Exam (CAIO) N KED (UACR and eGFR) N HCC Y Flu Vaccine Y Care Everywhere Reviewed DONE MyChart Activation ACTIVE Updated Appointment Note Y PATIENT HAD TO HANG UP BECAUSE HE WAS WAITING ON ANOTHER CALL FROM HEMATOLOGY PATIENT IS GETTING RADIATION THERAPY Reason for Outreach Care Gap/HCC or Scheduling Wellness Visits Care Gaps due: N/A Patient Contacted: Patient in other facility or Active Cancer Treatment - End Outreach Navigation Signature: Cristopher Villar MA February 29, 2024 11:45 AM Allergies As of Date: 02/29/2024 (No Known Allergies) Date Reviewed: 02/01/2024 Reviewed by: Melita Ramos, RN - Fully Assessed Reason for Visit: Population Health Navigation Outreach [[id number]] Cmt: Russ Vela Prescriptions as of 02/29/2024 - lisinopril-hydroCHLOROthiazide (ZESTORETIC) 20-12.5 mg per tablet Take 1 tablet by mouth once daily. Patient should start on December 19, 2023. - metoprolol tartrate, short acting, (LOPRESSOR) 25 mg tablet Take 1 tablet by mouth two times a day. For prevention of atrial fibrillation after thoracic surgery, stop after 30 days then resume your normal blood pressure medication - guaiFENesin (MUCINEX) 600 mg 12 hr tablet Take 1 tablet by mouth every 12 hours. - amLODIPine (NORVASC) 5 mg tablet Take 1 tablet by mouth once daily. Patient should start on December 19, 2023. - fluticasone-salmeterol (WIXELA INHUB) 250-50 mcg/dose inhaler Inhale 1 Puff as instructed two times a day. - atorvastatin (LIPITOR) 20 mg tablet Take 1 tablet by mouth once daily. - gabapentin (NEURONTIN) 300 mg capsule TAKE 2 CAPSULES BY MOUTH 3 TIMES A DAY Problem List As Of Date 02/29/2024 Noted Resolved Glucose intolerance (impaired glucose tolerance*06/23/2010 Primary hypertension [I10] 06/23/2010 Mixed hyperlipidemia [E78.2] 06/23/2010 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*02/14/2011 Hypercholesteremia [E78.00] 09/15/2011 09/16/2011 Spinal stenosis of lumbar region with neurogeni*06/01/2015 Paresthesias [R20.2] 06/01/2015 Lumbosacral neuritis [M54.17] 12/23/2016 Infrarenal abdominal aortic aneurysm (AAA) with*02/08/2021 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] 04/24/2023 Prostate cancer (HCC) [C61] 09/11/2023 Paroxysmal atrial fibrillation (HCC) [I48.0] 09/11/2023 Cancer of lower lobe of right lung (HCC) [C34.3*11/15/2023 Postoperative pain [G89.18] 11/16/2023 Stage 1 mild COPD by GOLD classification (HCC) *11/17/2023 Abscess of lower lobe of right lung without pne*11/17/2023 Pleural effusion, left [J90] 11/17/2023 Atelectasis [J98.11] 11/17/2023 Encounter Status:Closed by CRISTOPHER VILLAR on 02/29/24 OFELIA Observed: 02/29/2024 12:00 AM Status: COMPLETED Source: [facility] Telephone (RADRST) STEVIE ANGELES ([id number]) 1950 M DEF Date Time Provider Department 02/29/24 ELIAS GOSS During your visit today, we recorded the following information about you: Marlen Lam 02/29/2024 2:10 PM Signed LVM for return call to schedule: Please arrange for telephone follow-up in the week of 05/20/24. Allergies As of Date: 02/29/2024 (No Known Allergies) Date Reviewed: 02/01/2024 Reviewed by: Melita Ramos, GABI - Fully Assessed Reason for Visit: Appointment [186] Prescriptions as of 02/29/2024 - lisinopril-hydroCHLOROthiazide (ZESTORETIC) 20-12.5 mg per tablet Take 1 tablet by mouth once daily. Patient should start on December 19, 2023. - metoprolol tartrate, short acting, (LOPRESSOR) 25 mg tablet Take 1 tablet by mouth two times a day. For prevention of atrial fibrillation after thoracic surgery, stop after 30 days then resume your normal blood pressure medication - guaiFENesin (MUCINEX) 600 mg 12 hr tablet Take 1 tablet by mouth every 12 hours. - amLODIPine (NORVASC) 5 mg tablet Take 1 tablet by mouth once daily. Patient should start on December 19, 2023. - fluticasone-salmeterol (WIXELA INHUB) 250-50 mcg/dose inhaler Inhale 1 Puff as instructed two times a day. - atorvastatin (LIPITOR) 20 mg tablet Take 1 tablet by mouth once daily. - gabapentin (NEURONTIN) 300 mg capsule TAKE 2 CAPSULES BY MOUTH 3 TIMES A DAY Problem List As Of Date 02/29/2024 Noted Resolved Glucose intolerance (impaired glucose tolerance*06/23/2010 Primary hypertension [I10] 06/23/2010 Mixed hyperlipidemia [E78.2] 06/23/2010 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*02/14/2011 Hypercholesteremia [E78.00] 09/15/2011 09/16/2011 Spinal stenosis of lumbar region with neurogeni*06/01/2015 Paresthesias [R20.2] 06/01/2015 Lumbosacral neuritis [M54.17] 12/23/2016 Infrarenal abdominal aortic aneurysm (AAA) with*02/08/2021 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] 04/24/2023 Prostate cancer (HCC) [C61] 09/11/2023 Paroxysmal atrial fibrillation (HCC) [I48.0] 09/11/2023 Cancer of lower lobe of right lung (HCC) [C34.3*11/15/2023 Postoperative pain [G89.18] 11/16/2023 Stage 1 mild COPD by GOLD classification (HCC) *11/17/2023 Abscess of lower lobe of right lung without pne*11/17/2023 Pleural effusion, left [J90] 11/17/2023 Atelectasis [J98.11] 11/17/2023 Encounter Status:Closed by MARLEN LAM on 02/29/24 PROGRESS Observed: 02/05/2024 8:37 AM Status: COMPLETED Source: [facility] HNO ID: [id number] Author: TAE MONTEIRO MA Service: ? Author Type: License Examiner Type: Progress Notes Filed: 02/05/2024 08:42 Note Text: POPULATION HEALTH NAVIGATION OUTREACH Action/FYI Patient is on CM (Community Monitoring) List : Patient due for: [facility] - ED Follow up A follow-up appointment is not noted in patient's record. We are forwarding this patient to Network Navigation to schedule a follow-up appointment. ED After Visit Summary (XL Font) (Printed 01/31/2024) Follow-Ups: Call Praful Su MD (Family Medicine); As needed [place] [facility] 01/31/24 Dx: Foreign Body of Right ear 2nd Attempt: Left message for patient to call back. Reason for Outreach Community Monitoring/Network Navigator Pools AND Phone Line: AC Patient Contacted: Unable or unnecessary to reach patient: Left message Navigation Signature: Tae Monteiro MA February 05, 2024 8:37 AM PROGRESS Observed: 02/05/2024 12:00 AM Status: COMPLETED Source: [facility] HNO ID: [id number] Author: ELIAS GOSS MD Service: Radiation Oncology Author Type: Physician Type: Progress Notes Filed: 02/08/2024 11:22 Note Text: STEVIE ANGELES [id number] 02/05/2024 [facility] Department of Radiation Oncology [facility] RADIATION ONCOLOGY: COMPLETION NOTE DATE OF SIMULATION: 01/16/2024 DATES OF TREATMENT: 02/01/2024 TREATMENT MACHINE: S_TRUEBEAM TREATMENT AREA: RUL nodule SBRT DIAGNOSIS: 73 year old man with: 1.Enlarging/hypermetabolic/cavitary RUL nodule c/w NSCLC, [id number], Stage IA3 2.Hx of SCCa of the RLL, s/p RA-right lower lobectomy/MLND 11/15/23 [2.4 cm focus of SCCa, margins-, 0/12 LN; pT1cN0 cM0] 3.Hx of adenocarcinoma of the prostate, s/p ADT/EBRT completed 01/15/21, PSA 0.08 ng/mL CONCURRENT THERAPY: None DELIVERED DOSE: The RUL nodule SBRT PTV received a total dose of 3400 cGy in 1 fractions at 3400 cGy/fraction prescribed to Max Dose at 80.3% IDL using 6 MV photons with SBRT Coplanar VMAT technique; CBCT. For additional details regarding dose and treatment plan please contact the Radiation Oncologist ELAPSED DAYS: 1 TOLERANCE: At last on-treatment visit, his toxicity was summarized as: No signs of toxicity. RESPONSE: To be assessed in outpatient clinic. REMARKS: None Staff Physician Elias Goss M.D. Electronically Signed cc: MD Kevin Nicholas MD Daniel Raymond, MD PROGRESS Observed: 02/02/2024 9:41 AM Status: COMPLETED Source: [facility] HNO ID: [id number] Author: TAE MONTEIRO MA Service: ? Author Type: License Examiner Type: Progress Notes Filed: 02/02/2024 09:45 Note Text: POPULATION HEALTH NAVIGATION OUTREACH Action/FYI Patient is on CM (Community Monitoring) List : [facility]: [facility] - [facility] Follow up A follow-up appointment is not noted in patient's record. We are forwarding this patient to Network Navigation to schedule a follow-up appointment. ED After Visit Summary (XL Font) (Printed 01/31/2024) Follow-Ups: Call Praful Su MD (Family Medicine); As needed [place] [facility] 01/31/24 Dx: Foreign Body of Right ear 1st Attempt: Left message for patient to call back. Sent Tapatalkhart message. Reason for Outreach Community Monitoring/Network Navigator Pools AND Phone Line: [facility] Patient Contacted: Unable or unnecessary to reach patient: Left message MyChart message sent Navigation Signature: Tae Monteiro MA February 02, 2024 9:41 AM PROGRESS Observed: 02/02/2024 9:36 AM Status: COMPLETED Source: [facility] HNO ID: [id number] Author: KIMBERLY ABKER RN Service: ? Author Type: Registered Nurse Type: Progress Notes Filed: 02/02/2024 09:39 Note Text: ACM SOLE RN Patient identified by name and date of . Reason for review or outreach: Chart Review Sole Priority Emergency Department Utilization REQUESTED ACTION/FYI: Please see ED Utilization summary below A follow-up appointment is not noted in patient's record. We are forwarding this patient to Network Navigation to schedule a follow-up appointment. ED After Visit Summary (XL Font) (Printed 01/31/2024) Follow-Ups: Call Praful Su MD (Family Medicine); As needed Exclusion Criteria - leave appropriate response and delete the rest Does not meet exclusion criteria Utilization in past 6 months: # Occurrences Date Last Occurrence Hospital Admission Hospital Observation ED 1 01-30 SNF / Acute Rehab / LTAC ED DIAGNOSES/REASON(S) FOR ED USE: Recent Hospitalizations, ED, Observations (Past 365 days) Patient Class Diagnosis Description Type Department Provider 01/31/24 Emergency Foreign body of right ear, initial encounter ... ED (DISCHARGE) MEED OTHER FINDINGS/SUMMARY: Patient Attributed To: EVELIOE Payer: Ulisses Action Taken: Referrals/Routed: Population Health Navigation: PCP alignment/verification. Router to COMMUNITY MONITORING [facility] [[id number]] Contact made with patient: No, Chart review only. Signature: Kimberly Baker RN CNPTOUTREACH Observed: 02/02/2024 12:00 AM Status: COMPLETED Source: [facility] Patient Outreach ([facility]) STEVIE ANGELES ([id number]) 1950 M DEF Date Time Provider Department 02/02/24 KIMBERLY BAKERCMG During your visit today, we recorded the following information about you: Kimberly Baker RN 02/02/2024 9:39 AM Signed ACM SOLE RN Patient identified by name and date of . Reason for review or outreach: Chart Review Sole Priority Emergency Department Utilization REQUESTED ACTION/FYI: Please see ED Utilization summary below A follow-up appointment is not noted in patient's record. We are forwarding this patient to Network Navigation to schedule a follow-up appointment. ED After Visit Summary (XL Font) (Printed 01/31/2024) Follow-Ups: Call Praful Su MD (Family Medicine); As needed Exclusion Criteria - leave appropriate response and delete the rest Does not meet exclusion criteria Utilization in past 6 months: # Occurrences Date Last Occurrence Hospital Admission Hospital Observation ED 1 01-30 SNF / Acute Rehab / LTAC ED DIAGNOSES/REASON(S) FOR ED USE: Recent Hospitalizations, ED, Observations (Past 365 days) Patient Class Diagnosis Description Type Department Provider 01/31/24 Emergency Foreign body of right ear, initial encounter ... ED (DISCHARGE) MEED OTHER FINDINGS/SUMMARY: Patient Attributed To: QAE Payer: Ulisses Action Taken: Referrals/Routed: Population Health Navigation: PCP alignment/verification. Router to COMMUNITY MONITORING [facility] [[id number]] Contact made with patient: No, Chart review only. Signature: GABI Malone Danielle A, MA 02/02/2024 9:45 AM Signed POPULATION HEALTH NAVIGATION OUTREACH Action/FYI Patient is on CM (Community Monitoring) List : [facility]: [facility] Follow up A follow-up appointment is not noted in patient's record. We are forwarding this patient to Network Navigation to schedule a follow-up appointment. ED After Visit Summary (XL Font) (Printed 01/31/2024) Follow-Ups: Call Praful Su MD (Family Medicine); As needed [place] [facility] 01/31/24 Dx: Foreign Body of Right ear 1st Attempt: Left message for patient to call back. Sent Tapatalkhart message. Reason for Outreach Community Monitoring/Network Navigator Pools AND Phone Line: [facility] Patient Contacted: Unable or unnecessary to reach patient: Left message MyChart message sent Navigation Signature: Tae Monteiro MA February 02, 2024 9:41 AM Tae Monteiro MA 02/05/2024 8:42 AM Signed POPULATION HEALTH NAVIGATION OUTREACH Action/FYI Patient is on CM (Community Monitoring) List : [facility] A follow-up appointment is not noted in patient's record. We are forwarding this patient to Network Navigation to schedule a follow-up appointment. ED After Visit Summary (XL Font) (Printed 01/31/2024) Follow-Ups: Call Praful Su MD (Family Medicine); As needed [place] [facility] 01/31/24 Dx: Foreign Body of Right ear 2nd Attempt: Left message for patient to call back. Reason for Outreach Community Monitoring/Network Navigator Pools AND Phone Line: [facility] Patient Contacted: Unable or unnecessary to reach patient: Left message Navigation Signature: Tae Monteiro MA February 05, 2024 8:37 AM Allergies As of Date: 02/02/2024 (No Known Allergies) Date Reviewed: 02/01/2024 Reviewed by: Melita Ramos RN - Fully Assessed Reason for Visit: ACM SOLE RN [[id number]] Cmt: Chart Review Sole Priority Emergency Department Utilization Population Health Navigation Outreach [[id number]] Cmt: CM Pool - AC - ED follow up Prescriptions as of 02/05/2024 - lisinopril-hydroCHLOROthiazide (ZESTORETIC) 20-12.5 mg per tablet Take 1 tablet by mouth once daily. Patient should start on December 19, 2023. - metoprolol tartrate, short acting, (LOPRESSOR) 25 mg tablet Take 1 tablet by mouth two times a day. For prevention of atrial fibrillation after thoracic surgery, stop after 30 days then resume your normal blood pressure medication - guaiFENesin (MUCINEX) 600 mg 12 hr tablet Take 1 tablet by mouth every 12 hours. - amLODIPine (NORVASC) 5 mg tablet Take 1 tablet by mouth once daily. Patient should start on December 19, 2023. - fluticasone-salmeterol (WIXELA INHUB) 250-50 mcg/dose inhaler Inhale 1 Puff as instructed two times a day. - atorvastatin (LIPITOR) 20 mg tablet Take 1 tablet by mouth once daily. 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] 04/24/2023 Prostate cancer (HCC) [C61] 09/11/2023 Paroxysmal atrial fibrillation (HCC) [I48.0] 09/11/2023 Cancer of lower lobe of right lung (HCC) [C34.3*11/15/2023 Postoperative pain [G89.18] 11/16/2023 Stage 1 mild COPD by GOLD classification (HCC) *11/17/2023 Abscess of lower lobe of right lung without pne*11/17/2023 Pleural effusion, left [J90] 11/17/2023 Atelectasis [J98.11] 11/17/2023 Encounter Status:Closed by KIMBERLY BAKER on 02/02/24 XR CHEST 2V FRONTAL/LAT Observed: 2023 12:36 PM Status: F Source: [facility] * * *Final Report* * * DATE OF EXAM: Feb 01 2024 12:36PM STX [id number] - XR CHEST 2V FRONTAL/LAT / PROCEDURE REASON: Postprocedural pneumothorax * * * * Physician Interpretation * * * * EXAMINATION: CHEST RADIOGRAPH (2 VIEW FRONTAL and LATERAL) CLINICAL HISTORY: Postprocedural pneumothorax MQ: [id number] EXAM DATE/TIME: 02/01/2024 12:36 PM COMPARISON: Chest x-ray of 01/08/2024. CT scans of 01/16/2024 RESULT: Lines, tubes, and devices: None. Lungs and pleura: Right pneumothorax is seen. Primarily loculated in the right costophrenic angle. Similar to recent CT scans. Left lung is clear. Indeterminate densities in the right lung are stable. Likely atelectasis or fibrosis. The known cavitary nodule is not well seen on this chest film Cardiomediastinal silhouette: Stable cardiomediastinal silhouette. Bones and soft tissues: Unremarkable. IMPRESSION: Right pneumothorax Findings discussed with Dr. Goss at 1543 Agency Trainer: IMMANUEL Transcribe Date/Time: Feb 02 2024 3:36P Dictated by : BEVERLEY CAMACHO MD This examination was interpreted and the report reviewed and electronically signed by: BEVERLEY CAMACHO MD on Feb 02 2024 3:45PM EST [id number] PROGRESS Observed: 02/01/2024 12:31 PM Status: COMPLETED Source: [facility] HNO ID: [id number] Author: MELITA ALLISON LISW Service: ? Author Type: Veterinary Technician Assistant Type: Progress Notes Filed: 02/01/2024 12:39 Note Text: SOCIAL WORK FOLLOW UP NOTE: [facility] Date of service: January [facility] Veterinary Technician Assistant (SW) Melita Allison met with Stevie Angeles after his radiation treatment. Stevie has been diagnosed with non-small cell lung cancer, stage IA. SW introduced herself and reviewed [facility] supportive services, community transportation, and copay assistance if needed. Stevie's sister brought him to his 1 fraction radiation treatment today. SW provided the Patient Services sheet, and the Cancer Answer Line. SW also provided information on [facility], and the [address] [place] [address] Program. Advance Care Planning Goals of Care Date of Discussion: 02/01/2024 DIscussion Participants: Stevie Angeles Clinical: Stevie has completed advanced directives, and his sister is listed as the agent. Patient/Family/Decision Makers: Elisabeth Menjivar ([facility]) [phone] (M) In this encounter: Patient has completed advanced directives in the EMR. SIGNATURE: RINA Jordan PATIENT NAME: Stevie Angeles DATE: February 01, 2024 TIME: 12:36 PM PAGER/CONTACT #: Stevie denied having psychosocial needs at this time. KAEL asked for a call to if needs arise. SW will continue to follow to provide emotional support to patient/family, and place referrals to community resources as needed. Today's visit includes: patient TOPICS ADDRESSED: coping/support, finances, mental health needs, and community resources PLAN: Communicate pertinent medical/psychosocial information to Cancer Center team, Continue follow up as needed, Provide emotional support to patient/family, Referral to community resource, and Monitor patient response to treatment F/U APPOINTMENT: PRN Assigned SW listed in Care Team tab: Yes RINA Jordan Observed: 02/01/2024 12:00 PM Status: COMPLETED Source: [facility] Office Visit (RADRST) STEVIE ANGELES ([id number]) 1950 M [facility] Date Time Provider Department 02/01/24 12:00 PM ELIAS GOSS During your visit today, we recorded the following information about you: Weight 78.9 kg Elias Goss MD 02/01/2024 12:22 PM Signed Radiation Oncology - On Treatment Review (OTR) Note PATIENT NAME: Stevie Angeles PATIENT DIAGNOSIS: 73 year old man with: Enlarging/hypermetabolic/cavitary RUL nodule c/w NSCLC, [id number], Stage IA3 Hx of SCCa of the RLL, s/p RA-right lower lobectomy/MLND 11/15/23 [2.4 cm focus of SCCa, margins-, 0/12 LN; pT1cN0 cM0] Hx of adenocarcinoma of the prostate, s/p ADT/EBRT completed 01/15/21, PSA 0.08 ng/mL Thoracic surgeon: Palua Escobar MD, PhD COURSE: definitive AREA TREATED: RUL CURRENT DOSE: 3400 cGy in 1 fx PLANNED DOSE: 3400 cGy in 1 fx SUBJECTIVE: Mr. Angeles reports his energy/appetite are ok. No pain. Some shortness of breath, but feels ok overall; Dry cough. No worsening of pulmonary symptoms in the past 2 weeks. EXAM: KPS: 90 General Appearance: Alert and oriented. No acute distress. Chest: CTA, breat sounds diminished on the right Radiation dermatitis: No IMAGING/LAB RESULTS: None Treatment chart checked: Yes Patient treatment site reviewed and verified:Yes Port films reviewed and current:Yes Medications started: None ASSESSMENT/PLAN: Clinically stable. No signs of toxicity. The patient has completed radiotherapy and will be evaluated in follow-up in 4 weeks. Acute and delayed side effects reviewed. Progression of pneumothorax noted on cone-beam CT performed today for radiation image guidance. CXR ordered; I will contact Laney Bedolla NP in Dr. Escobar's office for further input. Elias Goss MD Allergies As of Date: 02/01/2024 (No Known Allergies) Date Reviewed: 02/01/2024 Reviewed by: Melita Ramos RN - Fully Assessed Primary Visit Diagnosis:Postprocedural pneumothorax [J95.811] Order(s):XR CHEST 2V FRONTAL/LAT [9003425] Order #: [id number] FUTURE Prescriptions as of 02/01/2024 - lisinopril-hydroCHLOROthiazide (ZESTORETIC) 20-12.5 mg per tablet Take 1 tablet by mouth once daily. Patient should start on December 19, 2023. - metoprolol tartrate, short acting, (LOPRESSOR) 25 mg tablet Take 1 tablet by mouth two times a day. For prevention of atrial fibrillation after thoracic surgery, stop after 30 days then resume your normal blood pressure medication - guaiFENesin (MUCINEX) 600 mg 12 hr tablet Take 1 tablet by mouth every 12 hours. - amLODIPine (NORVASC) 5 mg tablet Take 1 tablet by mouth once daily. Patient should start on December 19, 2023. - fluticasone-salmeterol (WIXELA INHUB) 250-50 mcg/dose inhaler Inhale 1 Puff as instructed two times a day. - atorvastatin (LIPITOR) 20 mg tablet Take 1 tablet by mouth once daily. 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] 04/24/2023 Prostate cancer (HCC) [C61] 09/11/2023 Paroxysmal atrial fibrillation (HCC) [I48.0] 09/11/2023 Cancer of lower lobe of right lung (HCC) [C34.3*11/15/2023 Postoperative pain [G89.18] 11/16/2023 Stage 1 mild COPD by GOLD classification (HCC) *11/17/2023 Abscess of lower lobe of right lung without pne*11/17/2023 Pleural effusion, left [J90] 11/17/2023 Atelectasis [J98.11] 11/17/2023 Level of Service: UNLISTED EVALUATION AND MANAGEMENT SERVICE [[id number]] Encounter Status:Closed by ELIAS GOSS on 02/01/24 PROGRESS Observed: 02/01/2024 12:00 PM Status: COMPLETED Source: [facility] HNO ID: [id number] Author: ELIAS GOSS MD Service: ? Author Type: Physician Type: Progress Notes Filed: 02/01/2024 12:22 Note Text: Radiation Oncology - On Treatment Review (OTR) Note PATIENT NAME: Stevie Angeles PATIENT DIAGNOSIS: 73 year old man with: Enlarging/hypermetabolic/cavitary RUL nodule c/w NSCLC, [id number], Stage IA3 Hx of SCCa of the RLL, s/p RA-right lower lobectomy/MLND 11/15/23 [2.4 cm focus of SCCa, margins-, 0/12 LN; pT1cN0 cM0] Hx of adenocarcinoma of the prostate, s/p ADT/EBRT completed 01/15/21, PSA 0.08 ng/mL Thoracic surgeon: Paula Escobar MD, PhD COURSE: definitive AREA TREATED: RUL CURRENT DOSE: 3400 cGy in 1 fx PLANNED DOSE: 3400 cGy in 1 fx SUBJECTIVE: Mr. Angeles reports his energy/appetite are ok. No pain. Some shortness of breath, but feels ok overall; Dry cough. No worsening of pulmonary symptoms in the past 2 weeks. EXAM: KPS: 90 General Appearance: Alert and oriented. No acute distress. Chest: CTA, breat sounds diminished on the right Radiation dermatitis: No IMAGING/LAB RESULTS: None Treatment chart checked: Yes Patient treatment site reviewed and verified:Yes Port films reviewed and current:Yes Medications started: None ASSESSMENT/PLAN: Clinically stable. No signs of toxicity. The patient has completed radiotherapy and will be evaluated in follow-up in 4 weeks. Acute and delayed side effects reviewed. Progression of pneumothorax noted on cone-beam CT performed today for radiation image guidance. CXR ordered; I will contact Laney Bedolla NP in Dr. Escobar's office for further input. Elias Goss MD ED PROV NOTE Observed: 01/31/2024 11:12 AM Status: COMPLETED Source: [facility] HNO ID: [id number] Author: MERARI SEARS DO Service: Emergency Medicine Author Type: Physician Type: ED Provider Notes Filed: 01/31/2024 11:23 Note Text: ED Provider Note Patient Name: Stevie Angeles : 1950 SERVICE DATE: 01/31/24 History Patient presents with: Foreign Body: rubber end of hearing aid in right ear canal Patient is a 73-year-old male who wears hearing aids presenting with concern of foreign body to his right ear. Patient states he took his hearing aid out and noticed that the plastic piece at the end was missing. He thought it fell out but when he went to put the hearing aid back and he felt that the other piece was still in his ear canal. He could not get it out. He came in for further evaluation. No other complaints or concerns reported at this time. Notes he just saw his charger tester yesterday. Denies any other complaints or concerns at this time. Notes he has had some mild irritation to his right ear since before of the foreign body. PAST MEDICAL HISTORY Diagnosis Date Abdominal aortic aneurysm (HCC) without rupture Elevated PSA Hearing loss HTN (hypertension) Lumbosacral neuritis Malignant neoplasm of prostate (HCC) Other and unspecified hyperlipidemia Prostate cancer (HCC) 2020 xrt at [facility] [place] Smoker former quit 2021 Spinal stenosis of lumbar region with neurogenic claudication PAST SURGICAL HISTORY Procedure Laterality Date COLONOSCOPY 05/28/2008 HERNIA REPAIR HX age 20 PROSTATE BIOPSY HX 2020 REMOVAL OF LUNG,LOBECTOMY Right 11/15/2023 Robotic-assisted right lower lobectomy with right lower lobe bronchoplasty closure of airway and mediastinal and hilar lymph node dissection, intercostal and phrenic nerve block FAMILY HISTORY Problem Relation Age of Onset other (high blood pressure [Other]) Mother Diabetes Mother Hearing Loss Mother Prostate Cancer Other Social History Tobacco Use Smoking status: Former Current packs/day: 0.00 Average packs/day: 1 pack/day for 40.0 years (40.0 ttl pk-yrs) Types: Cigarettes Start date: 07/1981 Quit date: 07/2021 Years since quittin.5 Passive exposure: Past Smokeless tobacco: Never Substance and Sexual Activity Alcohol use: Not Currently Alcohol/week: 6.0 standard drinks of alcohol Types: 6 Glasses of wine per week Drug use: No Sexual activity: Not on file ALLERGIES No Known Allergies Review of Systems Constitutional: Negative for fatigue and fever. HENT: Positive for ear pain (right). Negative for sore throat. Foreign body right ear Skin: Negative for rash. Neurological: Negative for headaches. Psychiatric/Behavioral: The patient is not nervous/anxious. Physical Exam Vitals [01/31/24 1056] BP Pulse Temp Temp src Resp SpO2 Weight Height 111/72 79 36.4 ?C (97.6 ?F) Temporal 20 97 % 80.3 kg (177 lb) -- Physical Exam Vitals and nursing note reviewed. Constitutional: Appearance: Normal appearance. HENT: Head: Normocephalic and atraumatic. Right Ear: External ear normal. A foreign body is present. Left Ear: Tympanic membrane, ear canal and external ear normal. Eyes: General: Lids are normal. Extraocular Movements: Extraocular movements intact. Pulmonary: Effort: Pulmonary effort is normal. Musculoskeletal: Cervical back: Neck supple. Skin: General: Skin is warm and dry. Neurological: General: No focal deficit present. Mental Status: He is alert. Psychiatric: Mood and Affect: Mood normal. Behavior: Behavior normal. Diagnostic Testing ED Labs Ordered and Reviewed - No data to display Procedures ED Course / Clinical Impression Clinical Impressions as of 01/31/24 1112 Foreign body of right ear, initial encounter Hearing aid worn MDM / Disposition / Plan Patient evaluated for foreign body to his right ear. On otoscope exam there is plastic/rubber piece of his hearing aid lodged in the ear canal. Is removed using alligator forceps. Patient tolerated this well. On repeat exam patient is some mild injection tympanic membrane but otherwise has a normal ear canal and no further foreign body. Patient discharged home. At this time I do not think he requires any antibiotics for ear infection or otitis externa's. He does not have any signs of ear canal trauma from the foreign body. Differential Diagnoses - Foreign body to the ear canal is more likely for the following reason(s): suggested by HANDP - Otitis media is less likely for the following reason(s): HANDP not suggestive - Otitis externa Disposition The patient was discharged. Counseled patient regarding suspected diagnosis. SIGNATURE: Merari Sears DO - MERARI SEARS 01/31/24 [facility] Observed: 01/19/2024 12:00 AM Status: COMPLETED Source: [facility] Telephone (RADRST) STEVIE ANGELES ([id number]) 1950 M [facility] Date Time Provider Department 01/19/24 ELIAS GOSS During your visit today, we recorded the following information about you: Mya Hill RN 01/19/2024 2:28 PM Signed Patient needs a 4 week post radiation phone call follow up. His last treatment is on 02-01-24 Susanne Solares 01/19/2024 3:42 PM Signed 1st attempt to reach out. Will try again Monday lvm Allergies As of Date: 01/19/2024 (No Known Allergies) Date Reviewed: 01/11/2024 Reviewed by: Mya Hill RN - Fully Assessed Reason for Visit: Appointment [[id number]] Prescriptions as of 01/19/2024 - lisinopril-hydroCHLOROthiazide (ZESTORETIC) 20-12.5 mg per tablet Take 1 tablet by mouth once daily. Patient should start on December 19, 2023. - metoprolol tartrate, short acting, (LOPRESSOR) 25 mg tablet Take 1 tablet by mouth two times a day. For prevention of atrial fibrillation after thoracic surgery, stop after 30 days then resume your normal blood pressure medication - guaiFENesin (MUCINEX) 600 mg 12 hr tablet Take 1 tablet by mouth every 12 hours. - amLODIPine (NORVASC) 5 mg tablet Take 1 tablet by mouth once daily. Patient should start on December 19, 2023. - fluticasone-salmeterol (WIXELA INHUB) 250-50 mcg/dose inhaler Inhale 1 Puff as instructed two times a day. - atorvastatin (LIPITOR) 20 mg tablet Take 1 tablet by mouth once daily. 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] 04/24/2023 Prostate cancer (HCC) [C61] 09/11/2023 Paroxysmal atrial fibrillation (HCC) [I48.0] 09/11/2023 Cancer of lower lobe of right lung (HCC) [C34.3*11/15/2023 Postoperative pain [G89.18] 11/16/2023 Stage 1 mild COPD by GOLD classification (HCC) *11/17/2023 Abscess of lower lobe of right lung without pne*11/17/2023 Pleural effusion, left [J90] 11/17/2023 Atelectasis [J98.11] 11/17/2023 Encounter Status:Closed by SUSANNE SOLARES on 01/19/24 PROGRESS Observed: 01/16/2024 12:00 AM Status: COMPLETED Source: [facility] HNO ID: [id number] Author: ELIAS GOSS MD Service: Radiation Oncology Author Type: Physician Type: Progress Notes Filed: 01/16/2024 15:04 Note Text: STEVIE ANGELES [id number] 01/16/2024 [facility] Department of Radiation Oncology [facility] RADIATION ONCOLOGY SIMULATION NOTE DATE OF SIMULATION: 01/16/2024 MACHINE: [employer] CT DIAGNOSIS: Malignant neoplasm of prostate AREA: RUL sbrt PROTOCOL: None PATIENT POSITION: Supine. CONTRAST: None BLOCKING: Custom blocking to be determined at the time of treatment planning. FIELD ARRANGEMENT: Field arrangement will be determined after plan has been completed. FIXATION DEVICE: In order to achieve accurate and reproducible treatments, the patient is to be immobilized with CIVCO SBRT system and a compression belt. A time-out was conducted and recorded by the therapist. CT scan was completed for target localization and planning. The patient is scheduled for a verification simulation on the treatment machine to ensure proper set-up and field arrangement is correct prior to the first treatment of primary and boost holder if applicable. Patient education will be completed per nursing. Electronically Signed Elias Goss M.D. 43:04 PM PROGRESS Observed: 01/16/2024 12:00 AM Status: COMPLETED Source: [facility] HNO ID: [id number] Author: ELIAS GOSS MD Service: Radiation Oncology Author Type: Physician Type: Progress Notes Filed: 01/29/2024 11:02 Note Text: STEVIE ANGELES [id number] 01/16/2024 [facility] Department of Radiation Oncology Treatment Planning Note For reasons stated in the consult note, Stevie Angeles is a candidate for radiation therapy. Based on review and interpretation of the relevant diagnostic studies together with the exam findings, Stevie Angeles was simulated on 01/16/2024 at which time the target volume and/or requisite holder were delineated, as indicated in the simulation note, to be treated according to the prescription. An ITV was created from all the phases of respiratory motion captured by the 4DCT image sets. Motion management allowed for design of patient specific planning target volume and reduced the radiation exposure to normal tissues. The treatment target and organs at risk were contoured on the simulation scan. Special consideration to these and other structures was given in light of the potential for increased toxicities of stereotactic body radiation therapy (SBRT). Pulmonary function testing was reviewed. After reviewing multiple treatment plans with dosimetry, the best plan was approved to deliver the prescribed course of radiation to the target area using inverse planning to allow for the best isodose distribution, treating to the 80.3% isodose line with 6 MV and 2 arcs. Custom MLCs, asym jaws for VMAT were the treatment devices used to shape/modify the beams. Limiting dose to normal tissue was confirmed upon review of the calculated dose volume histogram. IMRT planning was used because it best met the dose/volume constraints for the organs at risk for this patient, better than what could be achieved using conventional or 3D planning. The specific dose requirements for the PTV, organs at risk and dose-volume histograms are contained in this treatment plan and/or elsewhere in the medical record. A completed summary of this plan dated 01/29/2024 incorporated herein by reference includes dose, beam arrangements, energy, blocking, isodose distribution, and/or ports and DVH. Electronically Signed Elias Goss M.D. 1:02 AM PROGRESS Observed: 01/11/2024 1:00 PM Status: COMPLETED Source: [facility] HNO ID: [id number] Author: ELIAS GOSS MD Service: ? Author Type: Physician Type: Progress Notes Filed: 01/11/2024 13:45 Note Text: Radiation Oncology - New Patient/Consult Note PATIENT NAME: Stevie Angeles PATIENT REQUESTING PROVIDER: Kevin Cantu MD DIAGNOSIS: 73 year old man with: Enlarging/hypermetabolic/cavitary RUL nodule c/w NSCLC, [id number], Stage IA3 Hx of SCCa of the RLL, s/p RA-right lower lobectomy/MLND 11/15/23 [2.4 cm focus of SCCa, margins-, 0/12 LN; pT1cN0 cM0] Hx of adenocarcinoma of the prostate, s/p ADT/EBRT completed 01/15/21, PSA 0.08 ng/mL Cancer Staging No matching staging information was found for the patient. HPI: 73 year old male who presents with above diagnosis, for an opinion regarding the role of radiation therapy in the management of the patient's disease. Final recommendations will be communicated back to the requesting physician by way of the shared medical record, or letter to requesting physician via US mail. Mr. Angeles has a history of prostate cancer, diagnosed with biopsy on 09/24/20 (Gl 3+4=7, 8/12 cores+), iPSA 7.52 ng/mL, CT A/P 09/08/20 - no metastasis (4.3 cm infrarenal AAA w/o dissection). He was treated with Lupron (45 mg inj 11/05/20) and EBRT (7000 cGy/28 fx, completed 01/15/21, Dr. Neely). Most recent PSA is 0.08 ng/mL. He was diagnosed with SCCa of the RUL, managed with robotic-assisted right lower lobectomy/RLL bronchoplasty closure, mediastinal/hilar LND on 11/15/23 (Dr. Escobar). Pathology showed a 2.4 cm focus of SCCa, margins-, 0/12 LN; pT1cN0 cM0). He was referred for SBRT to a RUL nodule (2 x 1.4 cm on 12/09/23 post-op CT, cavitary, enlarging compared to 05/17/23 CTA, SUV 10.3 06/19/23 PET/CT; not biopsied). PFTs 07/04/23 showed FEV1 119%, DLCO 93% ALLERGIES No Known Allergies Current Outpatient Medications on File Prior to Visit Medication Sig lisinopril-hydroCHLOROthiazide (ZESTORETIC) 20-12.5 mg per tablet Take 1 tablet by mouth once daily. Patient should start on December 19, 2023. metoprolol tartrate, short acting, (LOPRESSOR) 25 mg tablet Take 1 tablet by mouth two times a day. For prevention of atrial fibrillation after thoracic surgery, stop after 30 days then resume your normal blood pressure medication (Patient not taking: Reported on 12/19/2023) guaiFENesin (MUCINEX) 600 mg 12 hr tablet Take 1 tablet by mouth every 12 hours. (Patient not taking: Reported on 12/19/2023) amLODIPine (NORVASC) 5 mg tablet Take 1 tablet by mouth once daily. Patient should start on December 19, 2023. fluticasone-salmeterol (WIXELA INHUB) 250-50 mcg/dose inhaler Inhale 1 Puff as instructed two times a day. atorvastatin (LIPITOR) 20 mg tablet Take 1 tablet by mouth once daily. gabapentin (NEURONTIN) 300 mg capsule TAKE 2 CAPSULES BY MOUTH 3 TIMES A DAY No current facility-administered medications on file prior to visit. PAST MEDICAL HISTORY Diagnosis Date Abdominal aortic aneurysm (HCC) without rupture Elevated PSA Hearing loss HTN (hypertension) Lumbosacral neuritis Malignant neoplasm of prostate (HCC) Other and unspecified hyperlipidemia Prostate cancer (HCC) 2020 xrt at [facility] [place] Smoker former quit 2021 Spinal stenosis of lumbar region with neurogenic claudication Prior radiation therapy, collagen vascular disease, or inflammatory bowel disease: No Any implanted or external electric devices? No PAST SURGICAL HISTORY Procedure Laterality Date COLONOSCOPY 05/28/2008 HERNIA REPAIR HX age 20 PROSTATE BIOPSY HX 2020 REMOVAL OF LUNG,LOBECTOMY Right 11/15/2023 Robotic-assisted right lower lobectomy with right lower lobe bronchoplasty closure of airway and mediastinal and hilar lymph node dissection, intercostal and phrenic nerve block FAMILY HISTORY Problem Relation Age of Onset other (high blood pressure [Other]) Mother Diabetes Mother Hearing Loss Mother Prostate Cancer Other Social History Tobacco Use Smoking status: Former Current packs/day: 0.00 Average packs/day: 1 pack/day for 40.0 years (40.0 ttl pk-yrs) Types: Cigarettes Start date: 07/1981 Quit date: 07/2021 Years since quittin.4 Passive exposure: Past Smokeless tobacco: Never Substance Use Topics Alcohol use: Not Currently Alcohol/week: 6.0 standard drinks of alcohol Types: 6 Glasses of wine per week Drug use: No Residence: [place], [place] Occupation: [employer] COMPLETE REVIEW OF SYSTEMS: GENERAL: Negative for weight loss, fevers, chills, or night sweats. HEENT: Negative for sudden vision or hearing changes. NECK: Negative for masses in the neck. RESPIRATORY: +PENA. Cough is improving. CARDIAC: Negative for chest pain, palpitations, murmurs, or syncopal episodes. GI: Negative for nausea, vomiting, diarrhea, constipation, blood per rectum, or melena. : +Urinary urgency/leakage at times. Negative for dysuria, hematuria. MUSCULOSKELETAL: +Mild right posterior chest wall pain since surgery. Otherwise negative for limitations in movement, pain, or swelling. NEURO: Negative for dizziness, headache, weakness or numbness. HEMATOLOGIC: Negative for bleeding or easy bruising. SKIN: Negative for rashes or other skin changes. PHYSICAL EXAM: VS: Wt 80.4 kg (177 lb 3.2 oz) BMI 27.75 kg/m? Is the patient having any pain? Mild, post-VATS KPS: 90 General Appearance: Alert and oriented. No acute distress. HEENT: NCAT. Sclera anicteric. PERRL. EOMI. Hearing aid at left ear Neck: Normal ROM. No palpable cervical or supraclavicular adenopathy. Chest: No respiratory distress. Lungs clear to auscultation bilaterally. Heart: Regular rate and rhythm. Abdomen: Soft. Nontender. Nondistended. Musculoskeletal: Healed VATS incisions. No edema. Normal ROM in extremities. No bone or spine tenderness. Neuro: Speech fluent. Gait normal. No focal deficits. Skin: No rashes noted Lymphatics: No palpable lymphadenopathy. Hematologic: No signs of active bleeding. RADIOLOGY/LABORATORY DATA: see HPI ASSESSMENT AND PLAN: 73 year old man with: 1. Enlarging/hypermetabolic/cavitary RUL nodule c/w NSCLC, [id number], Stage IA3 2. Hx of SCCa of the RLL, s/p RA-right lower lobectomy/MLND 11/15/23 [2.4 cm focus of SCCa, margins-, 0/12 LN; pT1cN0 cM0] 3. Hx of adenocarcinoma of the prostate, s/p ADT/EBRT completed 01/15/21, PSA 0.08 ng/mL Mr. Angeles is a candidate for stereotactic body radiotherapy (SBRT) for his right upper lobe nodule consistent with primary lung cancer. The risks, benefits, rationale, alternatives, as well as limitations of SBRT was discussed with Mr. Angeles. Additionally, information was given regarding the various personnel who would be involved in the procedures and imaging necessary in the delivery of SBRT. Mr. Angeles indicated understanding of this discussion, all questions were answered and agreement was made to proceed with SBRT. An informed consent document for SBRT was signed by Mr. Angeles and myself. An order was placed for simulation and treatment. Simulation will be scheduled for the next available time. I anticipate treatment of right upper lobe tumor to a dose of 3400 cGy in 1 fraction, this may be modified at the time of treatment planning. Intensity modulated radiation therapy will be used to minimize high-dose to normal tissues. Daily image-guidance will be used to aid in target localization. A vac-loc bag and 4-dimensional CT with abdominal compression will be used to aid in motion management. I spent 40 minutes in the visit, with more than 50% of the total oqde-[id number] time of the visit in counseling / coordination of care. Signed by: Elias Goss MD cc: MD Kevin Nicholas MD Daniel Raymond, MD CNOV Observed: 01/11/2024 1:00 PM Status: COMPLETED Source: [facility] Office Visit (RADRST) STEVIE ANGELES ([id number]) 1950 M DEF Date Time Provider Department 01/11/24 1:00 PM ELIAS GOSS During your visit today, we recorded the following information about you: Weight 80.4 kg Elias Goss MD 01/11/2024 1:45 PM Signed Radiation Oncology - New Patient/Consult Note PATIENT NAME: Stevie Angeles PATIENT REQUESTING PROVIDER: Kevin Cantu MD DIAGNOSIS: 73 year old man with: Enlarging/hypermetabolic/cavitary RUL nodule c/w NSCLC, [id number], Stage IA3 Hx of SCCa of the RLL, s/p RA-right lower lobectomy/MLND 9/18/24 [2.4 cm focus of SCCa, margins-, 0/12 LN; pT1cN0 cM0] Hx of adenocarcinoma of the prostate, s/p ADT/EBRT completed 01/15/21, PSA 0.08 ng/mL Cancer Staging No matching staging information was found for the patient. HPI: 73 year old male who presents with above diagnosis, for an opinion regarding the role of radiation therapy in the management of the patient's disease. Final recommendations will be communicated back to the requesting physician by way of the shared medical record, or letter to requesting physician via US mail. Mr. Angeles has a history of prostate cancer, diagnosed with biopsy on 09/24/20 (Gl 3+4=7, 8/12 cores+), iPSA 7.52 ng/mL, CT A/P 09/08/20 - no metastasis (4.3 cm infrarenal AAA w/o dissection). He was treated with Lupron (45 mg inj 11/05/20) and EBRT (7000 cGy/28 fx, completed 01/15/21, Dr. Neely). Most recent PSA is 0.08 ng/mL. He was diagnosed with SCCa of the RUL, managed with robotic-assisted right lower lobectomy/RLL bronchoplasty closure, mediastinal/hilar LND on 11/15/23 (Dr. Escobar). Pathology showed a 2.4 cm focus of SCCa, margins-, 0/12 LN; pT1cN0 cM0). He was referred for SBRT to a RUL nodule (2 x 1.4 cm on 12/09/23 post-op CT, cavitary, enlarging compared to 05/17/23 CTA, SUV 10.3 06/19/23 PET/CT; not biopsied). PFTs 07/04/23 showed FEV1 119%, DLCO 93% ALLERGIES No Known Allergies Current Outpatient Medications on File Prior to Visit Medication Sig lisinopril-hydroCHLOROthiazide (ZESTORETIC) 20-12.5 mg per tablet Take 1 tablet by mouth once daily. Patient should start on December 19, 2023. metoprolol tartrate, short acting, (LOPRESSOR) 25 mg tablet Take 1 tablet by mouth two times a day. For prevention of atrial fibrillation after thoracic surgery, stop after 30 days then resume your normal blood pressure medication (Patient not taking: Reported on 12/19/2023) guaiFENesin (MUCINEX) 600 mg 12 hr tablet Take 1 tablet by mouth every 12 hours. (Patient not taking: Reported on 12/19/2023) amLODIPine (NORVASC) 5 mg tablet Take 1 tablet by mouth once daily. Patient should start on December 19, 2023. fluticasone-salmeterol (WIXELA INHUB) 250-50 mcg/dose inhaler Inhale 1 Puff as instructed two times a day. atorvastatin (LIPITOR) 20 mg tablet Take 1 tablet by mouth once daily. gabapentin (NEURONTIN) 300 mg capsule TAKE 2 CAPSULES BY MOUTH 3 TIMES A DAY No current facility-administered medications on file prior to visit. PAST MEDICAL HISTORY Diagnosis Date Abdominal aortic aneurysm (HCC) without rupture Elevated PSA Hearing loss HTN (hypertension) Lumbosacral neuritis Malignant neoplasm of prostate (HCC) Other and unspecified hyperlipidemia Prostate cancer (HCC) 2020 xrt at [facility] [place] Smoker former quit 2021 Spinal stenosis of lumbar region with neurogenic claudication Prior radiation therapy, collagen vascular disease, or inflammatory bowel disease: No Any implanted or external electric devices? No PAST SURGICAL HISTORY Procedure Laterality Date COLONOSCOPY 05/28/2008 HERNIA REPAIR HX age 20 PROSTATE BIOPSY HX 2020 REMOVAL OF LUNG,LOBECTOMY Right 11/15/2023 Robotic-assisted right lower lobectomy with right lower lobe bronchoplasty closure of airway and mediastinal and hilar lymph node dissection, intercostal and phrenic nerve block FAMILY HISTORY Problem Relation Age of Onset other (high blood pressure [Other]) Mother Diabetes Mother Hearing Loss Mother Prostate Cancer Other Social History Tobacco Use Smoking status: Former Current packs/day: 0.00 Average packs/day: 1 pack/day for 40.0 years (40.0 ttl pk-yrs) Types: Cigarettes Start date: 07/1981 Quit date: 07/2021 Years since quittin.4 Passive exposure: Past Smokeless tobacco: Never Substance Use Topics Alcohol use: Not Currently Alcohol/week: 6.0 standard drinks of alcohol Types: 6 Glasses of wine per week Drug use: No Residence: [place], [place] Occupation: [employer] COMPLETE REVIEW OF SYSTEMS: GENERAL: Negative for weight loss, fevers, chills, or night sweats. HEENT: Negative for sudden vision or hearing changes. NECK: Negative for masses in the neck. RESPIRATORY: +PENA. Cough is improving. CARDIAC: Negative for chest pain, palpitations, murmurs, or syncopal episodes. GI: Negative for nausea, vomiting, diarrhea, constipation, blood per rectum, or melena. : +Urinary urgency/leakage at times. Negative for dysuria, hematuria. MUSCULOSKELETAL: +Mild right posterior chest wall pain since surgery. Otherwise negative for limitations in movement, pain, or swelling. NEURO: Negative for dizziness, headache, weakness or numbness. HEMATOLOGIC: Negative for bleeding or easy bruising. SKIN: Negative for rashes or other skin changes. PHYSICAL EXAM: VS: Wt 80.4 kg (177 lb 3.2 oz) BMI 27.75 kg/m? Is the patient having any pain? Mild, post-VATS KPS: 90 General Appearance: Alert and oriented. No acute distress. HEENT: NCAT. Sclera anicteric. PERRL. EOMI. Hearing aid at left ear Neck: Normal ROM. No palpable cervical or supraclavicular adenopathy. Chest: No respiratory distress. Lungs clear to auscultation bilaterally. Heart: Regular rate and rhythm. Abdomen: Soft. Nontender. Nondistended. Musculoskeletal: Healed VATS incisions. No edema. Normal ROM in extremities. No bone or spine tenderness. Neuro: Speech fluent. Gait normal. No focal deficits. Skin: No rashes noted Lymphatics: No palpable lymphadenopathy. Hematologic: No signs of active bleeding. RADIOLOGY/LABORATORY DATA: see HPI ASSESSMENT AND PLAN: 73 year old man with: 1. Enlarging/hypermetabolic/cavitary RUL nodule c/w NSCLC, [id number], Stage IA3 2. Hx of SCCa of the RLL, s/p RA-right lower lobectomy/MLND 11/15/23 [2.4 cm focus of SCCa, margins-, 0/12 LN; pT1cN0 cM0] 3. Hx of adenocarcinoma of the prostate, s/p ADT/EBRT completed 01/15/21, PSA 0.08 ng/mL Mr. Angeles is a candidate for stereotactic body radiotherapy (SBRT) for his right upper lobe nodule consistent with primary lung cancer. The risks, benefits, rationale, alternatives, as well as limitations of SBRT was discussed with Mr. Angeles. Additionally, information was given regarding the various personnel who would be involved in the procedures and imaging necessary in the delivery of SBRT. Mr. Angeles indicated understanding of this discussion, all questions were answered and agreement was made to proceed with SBRT. An informed consent document for SBRT was signed by Mr. Angeles and myself. An order was placed for simulation and treatment. Simulation will be scheduled for the next available time. I anticipate treatment of right upper lobe tumor to a dose of 3400 cGy in 1 fraction, this may be modified at the time of treatment planning. Intensity modulated radiation therapy will be used to minimize high-dose to normal tissues. Daily image-guidance will be used to aid in target localization. A vac-loc bag and 4-dimensional CT with abdominal compression will be used to aid in motion management. I spent 40 minutes in the visit, with more than 50% of the total [id number] time of the visit in counseling / coordination of care. Signed by: Elias Goss MD cc: MD Kevin Nicholas MD Daniel Raymond, MD Leciejewski, Carrie, RN 01/11/2024 1:22 PM Signed Radiation Therapy - Nursing Note (Consult) PATIENT NAME: Stevie Angeles PATIENT January 11, 2024 [facility] FACILITY/LOCATION: [place] Chief Complaint: lung nodule Reason for visit: Consult. Referring physician: Internal provider Dr. Cantu Subjective Data: I do have soreness where the incision is since my lung surgery . I will get SOB with over exertion and cough noted at times Additional Data Do you want to see a Administrative Aide? No Are you interested in information about fertility? No Sexual Activity: Male: not asked Stress Scale: On a scale of 0 to 10, what number best describes how much distress you have experienced in the past week?(0 being no distress and 10 being extreme distress) increased with DX Social work notified: yes GENERAL INFORMATION: PREVIOUS CHEMOTHERAPY: no PREVIOUS RADIATION THERAPY: yes 2020 for prostate cancer completed at [facility] PREVIOUS HORMONAL THERAPY: no NURSING ASSESSMENT: EYES: Wears contacts EARS: Hearing loss - bilateral and Hearing Aid - bilateral RESPIRATORY: cough and shortness of breath CARDIOVASCULAR: Denies, Chest pain, Pacemaker, Defibrillator, and Palpitations GASTROINTESTINAL: denies, change in bowel habits, and blood in the stool GENITOURINARY: urgency, stress incontinence INTEGUMENTARY: easy bruising MUSCULOSKELETAL: weakness age related he reported NEUROLOGIC: orientation - person, place and time and weakness PSYCHIATRIC: denies, sleep disturbance, anxiety, depression, and mood disorder/mood swing NUTRITION: Are you currently following any diet? No Have you had any unintentional weight loss? No Do you have any difficulty chewing or swallowing? No Dietary Intake: Regular diet without any changes CONSULTS: No consults at this time OTHER INFORMATION: Are you currently residing at home? Yes Do you receive homecare services? No Do you drive? Yes Is the patient interested in van services? Not Applicable Do you have medical equipment or oxygen in the home? 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 Yes - A person with a Durable Power of Manager Care for Healthcare (DPOA-H) has been appointed - Yes There is a living will - Yes Assessed and policy reviewed. PATIENT EDUCATION: Topic: Radiation This education session included the patient. Prior to initiation, barriers to learning and limitations were assessed. Readiness to learn: Cognitive ability: Alert and oriented Motivation to learn: Interested - wants to learn Patient learns best by: multiple methods Barriers to learning: None Family support: Unable to assess - Family not present Learning response: Topic: Radiation Therapy Method of instruction: Individual instruction Written instruction - handouts Verbal instruction Supplemental Material: Individualized patient education folder given and reviewed. During this visit, the patient was educated on potential side effects related to treatment. Teach back method of education was performed. The patient verbalized understanding. SIGNED by: Mya Hill RN Referring Provider: KEVIN CANTU [[id number]] Allergies As of Date: 01/11/2024 (No Known Allergies) Date Reviewed: 01/11/2024 Reviewed by: Mya Hill RN - Fully Assessed Primary Visit Diagnosis:Malignant neoplasm of upper lobe of right lung (HCC) [C34.11] Other Visit Diagnosis:Malignant neoplasm of unspecified part of unspecified bronchus or lung (HCC) [C34.90] Order(s):RAD/ONC CONSULT [9037] Order #: [id number]: 1 Prescriptions as of 01/11/2024 - lisinopril-hydroCHLOROthiazide (ZESTORETIC) 20-12.5 mg per tablet Take 1 tablet by mouth once daily. Patient should start on December 19, 2023. - metoprolol tartrate, short acting, (LOPRESSOR) 25 mg tablet Take 1 tablet by mouth two times a day. For prevention of atrial fibrillation after thoracic surgery, stop after 30 days then resume your normal blood pressure medication - guaiFENesin (MUCINEX) 600 mg 12 hr tablet Take 1 tablet by mouth every 12 hours. - amLODIPine (NORVASC) 5 mg tablet Take 1 tablet by mouth once daily. Patient should start on December 19, 2023. - fluticasone-salmeterol (WIXELA INHUB) 250-50 mcg/dose inhaler Inhale 1 Puff as instructed two times a day. - atorvastatin (LIPITOR) 20 mg tablet Take 1 tablet by mouth once daily. 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] 04/24/2023 Prostate cancer (HCC) [C61] 09/11/2023 Paroxysmal atrial fibrillation (HCC) [I48.0] 09/11/2023 Cancer of lower lobe of right lung (HCC) [C34.3*11/15/2023 Postoperative pain [G89.18] 11/16/2023 Stage 1 mild COPD by GOLD classification (HCC) *11/17/2023 Abscess of lower lobe of right lung without pne*11/17/2023 Pleural effusion, left [J90] 11/17/2023 Atelectasis [J98.11] 11/17/2023 Visit Notes: >> Mya Hill, GABI Claudia Jan 11, 2024 1:15 PM Status: Signed Radiation Therapy - Nursing Note (Consult) PATIENT NAME: Stevie Angeles PATIENT January 11, 2024 [facility] FACILITY/LOCATION: [place] Chief Complaint: lung nodule Reason for visit: Consult. Referring physician: Internal provider Dr. Cantu Subjective Data: I do have soreness where the incision is since my lung surgery . I will get SOB with over exertion and cough noted at times Additional Data Do you want to see a Administrative Aide? No Are you interested in information about fertility? No Sexual Activity: Male: not asked Stress Scale: On a scale of 0 to 10, what number best describes how much distress you have experienced in the past week?(0 being no distress and 10 being extreme distress) increased with DX Social work notified: yes GENERAL INFORMATION: PREVIOUS CHEMOTHERAPY: no PREVIOUS RADIATION THERAPY: yes 2020 for prostate cancer completed at [facility] PREVIOUS HORMONAL THERAPY: no NURSING ASSESSMENT: EYES: Wears contacts EARS: Hearing loss - bilateral and Hearing Aid - bilateral RESPIRATORY: cough and shortness of breath CARDIOVASCULAR: Denies, Chest pain, Pacemaker, Defibrillator, and Palpitations GASTROINTESTINAL: denies, change in bowel habits, and blood in the stool GENITOURINARY: urgency, stress incontinence INTEGUMENTARY: easy bruising MUSCULOSKELETAL: weakness age related he reported NEUROLOGIC: orientation - person, place and time and weakness PSYCHIATRIC: denies, sleep disturbance, anxiety, depression, and mood disorder/mood swing NUTRITION: Are you currently following any diet? No Have you had any unintentional weight loss? No Do you have any difficulty chewing or swallowing? No Dietary Intake: Regular diet without any changes CONSULTS: No consults at this time OTHER INFORMATION: Are you currently residing at home? Yes Do you receive homecare services? No Do you drive? Yes Is the patient interested in van services? Not Applicable Do you have medical equipment or oxygen in the home? 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 Yes - A person with a Durable Power of Manager Care for Healthcare (DPOA-H) has been appointed - Yes There is a living will - Yes Assessed and policy reviewed. PATIENT EDUCATION: Topic: Radiation This education session included the patient. Prior to initiation, barriers to learning and limitations were assessed. Readiness to learn: Cognitive ability: Alert and oriented Motivation to learn: Interested - wants to learn Patient learns best by: multiple methods Barriers to learning: None Family support: Unable to assess - Family not present Learning response: Topic: Radiation Therapy Method of instruction: Individual instruction Written instruction - handouts Verbal instruction Supplemental Material: Individualized patient education folder given and reviewed. During this visit, the patient was educated on potential side effects related to treatment. Teach back method of education was performed. The patient verbalized understanding. SIGNED by: Mya Hill RN Encounter Status:Closed by ELIAS GOSS on 01/11/24 PROGRESS Observed: 01/08/2024 2:23 PM Status: COMPLETED [facility] HNO ID: [id number] Author: ROMINA BEDOLLA APRN.ELVIRA Service: ? Author Type: Nurse Practitioner Type: Progress Notes Filed: 01/08/2024 18:37 Note Text: Part of this note was copied from previous note, all content has been individually reviewed, updated as necessary, and thoroughly reviewed. [facility] - OUTPATIENT THORACIC SURGERY CLINIC NOTE PT NAME: [facility] NO: [id number] THORACIC SURGEON: Paula Escobar M.D. 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 - Extensive post-obstructive changes with acute and organizing bronchopneumonia with suppurative exudate and microabscess formation. - Seven hilar/peribronchial lymph nodes, negative for tumor (0/7). - Vascular margin negative for tumor. B. Lymph node, level 9R, excision: - Negative for tumor (0/1). C. Lymph node, level 8R, excision: - Negative for tumor (0/1). D. Lymph node, level 8R, excision: - Negative for tumor (0/1). Few giant cells. E. Lymph node, level 10R, excision: - Negative for tumor (0/1). F. Lymph node, level 11R, excision: - Negative for tumor (0/1). G. Lung, additional airway, excision: - Keratinizing squamous cell carcinoma. - Bronchial margin negative for tumor Diagnosis Comment A. Selected slides from part A (including the inked margin) were reviewed at the [facility] thoracic pathology consensus conference on 11/23/23. Dr. Fauzia Oseguera, Dr. Alexis Altman, Dr. Fitch and Dr. Romina Bryan were present and concurred with this interpretation. The status of the margins was discussed with Dr. Escobar by email on 11/23/23 and discussed at the consensus conference. Because of the extensive nature of the suppurative process, margin assessment is difficult. G. The final bronchial margin is negative for tumor. Block for additional Biomarkers/Molecular studies A7 Synoptic Report LUNG 8th Edition - Protocol posted: 11/17/2021LUNG: RESECTION - All Specimens SPECIMEN Procedure Lobectomy Specimen Laterality Right TUMOR Tumor Focality Single focus Tumor Site Lower lobe of lung Tumor Size Total Tumor Size (size of entire tumor) Greatest Dimension (Centimeters): 2.5 cm Additional Dimension (Centimeters) 2.5 cm 1.8 cm Histologic Type Invasive squamous cell carcinoma, keratinizing Histologic Grade G2, moderately differentiated Spread Through Air Spaces (ROBIN) Not identified Visceral Pleura Invasion Not identified Direct Invasion of Adjacent Structures Not applicable (no adjacent structures present) Treatment Effect No known presurgical therapy Lymphovascular Invasion Not identified MARGINS Margin Status for Invasive Carcinoma Due to extensive suppuration, it is unclear whether the inked edge represents a true hilar soft tissue or parenchymal margin; discussed with Dr. Escobar on 11/23/23. The bronchial and vascular margins are negative. Margin Status for Non-Invasive Tumor Not applicable REGIONAL LYMPH NODES Lymph Node(s) from Prior Procedures No known prior lymph node sampling performed Regional Lymph Node Status All regional lymph nodes negative for tumor Number of Lymph Nodes Examined 12 Lan Site(s) Examined 8R: Para-esophageal (below patti) 9R: Pulmonary ligament 10R: Hilar 11R: Interlobar Right: hilar/peribronchial PATHOLOGIC STAGE CLASSIFICATION (pTNM, AJCC 8th Edition) Reporting of pT, pN, and (when applicable) pM categories is based on information available to the pathologist at the time the report is issued. As per the AJCC (Chapter 1, 8th Ed.) it is the managing physician?s responsibility to establish the final pathologic stage based upon all pertinent information, including but potentially not limited to this pathology report. pT Category pT1c pN Category pN0 ADDITIONAL FINDINGS Additional Findings Inflammation: Acute and organizing bronchopneumonia Post-obstructive changes REASON FOR VISIT: Post-operative visit HPI: Stevie Angeles is a 73 year old male ex-smoker 40 pack years (quit 2021) with history of prostate cancer and squamous cell skin cancer, who was found to have lung nodules on surveillance of known AAA. CTA chest 05/17/23 revealed nodular opacification in the right lower lobe with confluent appearance near hilum. PET/CT 06/19/23 showed intensive uptake associated with the 1.5 x 2.2 cm RUL lesion (SUV 10.3), medial right lower lobe solid lesion with groundglass extension (SUV 10) and mild uptake with prominent paratracheal node (SUV 2.2). Transbronchial biopsy 06/20/23 non-diagnostic and surveillance CT scan showed further enlargement of known RLL and RUL lesions. Transbronchial biopsy/EBUS repeated 09/19/23, biopsy of RLL lesion showed squamous cell carcinoma (lymph node stations 11RS and 11RI were neg). Case discussed at Tumor Board, decision was for upfront resection with consideration of adjuvant therapy once final pathology identified. On 11/15/23 he underwent Robotic-assisted right lower lobectomy with right lower lobe bronchoplasty closure of airway and mediastinal and hilar lymph node dissection, intercostal and phrenic nerve block by Dr Escobar. Noted an abscess. He was discharged 11/19/23. PHYSICAL EXAM: VITAL SIGNS: BP 115/67 Pulse 74 Temp 36.6 ?C (97.9 ?F) (Oral) Resp 14 Ht 170.2 cm (5' 7) Wt 77.7 kg (171 lb 6.4 oz) SpO2 95% BMI 26.85 kg/m? Room air Incision location: Right Thoracoport sites and Right Old chest tube sites Incision Assessment: Well approximated and no drainage, swelling, erythema or warmth Drain/Tubes: N/A GENERAL: well appearing, alert, no acute distress, well-hydrated, well nourished HEENT: normocephalic, midline, anicteric sclera. LUNGS: clear to auscultation, no wheezing or rhonchi HEART: RRR without murmur ABDOMEN: Soft, non-tender, non distended. No masses EXTREMITIES: No clubbing, cyanosis or edema. MUSCULOSKELETAL: Muscular strength intact. SKIN: turgor normal, no suspicious rashes or lesions NEURO: Gait normal. Sensation grossly intact. IMAGING/TESTS: CT Chest 12/14/23: IMPRESSION: 1. Unchanged size of a right upper lobe nodule with cavitations 2. Postoperative changes from a right lower lobectomy. Small right pleural effusion. 3. No new thoracic lymphadenopathy CXR 01/08/2024 INTERVAL HISTORY: Stevie Angeles returns for post op visit. He has been doing well. Breathing has improved, although still gets SOB with exertion. Incisions are healing well. CXR shows improved right lung expansion. He has a consult 01/11/[address] Goss in radiation oncology to discuss SBRT to right upper lobe nodule. He will return in [address] Chest, PFTs IMPRESSION: 73 year old male s/p Robotic-assisted right lower lobectomy with right lower lobe bronchoplasty closure of airway and mediastinal and hilar lymph node dissection, intercostal and phrenic nerve block 11/15/[address] Escobar for T1cN0 squamous cell carcinoma of the RLL of lung, with PET avid RUL nodule noted PLAN: - return in [address] chest, PFTs - oncology management with Dr Cantu - radiation consult with Dr Goss 01/11/24 Romina Bedolla APRN.PROGRAM SUPPORT ASSISTANT CNOV Observed: 01/08/2024 2:00 PM Status: COMPLETED [facility] Office Visit (THORMN) STEVIE ANGELES ([id number]) 1950 M DEF Date Time Provider Department 01/08/24 2:00 PM ROMINA BEDOLLA During your visit today, we recorded the following information about you: Temperature Pulse Respiration Blood pressure 97.9 degrees 74/minute 14/minute 115/67 Weight Height 77.7 kg 1.702 m Romina Bedolla APRN.CNP 01/08/2024 6:37 PM Signed Part of this note was copied from previous note, all content has been individually reviewed, updated as necessary, and thoroughly reviewed. [facility] - OUTPATIENT THORACIC SURGERY CLINIC NOTE PT NAME: Stevie Angeles [facility] NO: [id number] THORACIC SURGEON: Paula Escobar M.D. 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 - Extensive post-obstructive changes with acute and organizing bronchopneumonia with suppurative exudate and microabscess formation. - Seven hilar/peribronchial lymph nodes, negative for tumor (0/7). - Vascular margin negative for tumor. B. Lymph node, level 9R, excision: - Negative for tumor (0/1). C. Lymph node, level 8R, excision: - Negative for tumor (0/1). D. Lymph node, level 8R, excision: - Negative for tumor (0/1). Few giant cells. E. Lymph node, level 10R, excision: - Negative for tumor (0/1). F. Lymph node, level 11R, excision: - Negative for tumor (0/1). G. Lung, additional airway, excision: - Keratinizing squamous cell carcinoma. - Bronchial margin negative for tumor Diagnosis Comment A. Selected slides from part A (including the inked margin) were reviewed at the [facility] thoracic pathology consensus conference on 11/23/23. Dr. Fauzia Oseguera, Dr. Alexis Altman, Dr. Fitch and Dr. Romina Bryan were present and concurred with this interpretation. The status of the margins was discussed with Dr. Escobar by email on 11/23/23 and discussed at the consensus conference. Because of the extensive nature of the suppurative process, margin assessment is difficult. G. The final bronchial margin is negative for tumor. Block for additional Biomarkers/Molecular studies A7 Synoptic Report LUNG 8th Edition - Protocol posted: 11/17/2021LUNG: RESECTION - All Specimens SPECIMEN Procedure Lobectomy Specimen Laterality Right TUMOR Tumor Focality Single focus Tumor Site Lower lobe of lung Tumor Size Total Tumor Size (size of entire tumor) Greatest Dimension (Centimeters): 2.5 cm Additional Dimension (Centimeters) 2.5 cm 1.8 cm Histologic Type Invasive squamous cell carcinoma, keratinizing Histologic Grade G2, moderately differentiated Spread Through Air Spaces (ROBIN) Not identified Visceral Pleura Invasion Not identified Direct Invasion of Adjacent Structures Not applicable (no adjacent structures present) Treatment Effect No known presurgical therapy Lymphovascular Invasion Not identified MARGINS Margin Status for Invasive Carcinoma Due to extensive suppuration, it is unclear whether the inked edge represents a true hilar soft tissue or parenchymal margin; discussed with Dr. Escobar on 11/23/23. The bronchial and vascular margins are negative. Margin Status for Non-Invasive Tumor Not applicable REGIONAL LYMPH NODES Lymph Node(s) from Prior Procedures No known prior lymph node sampling performed Regional Lymph Node Status All regional lymph nodes negative for tumor Number of Lymph Nodes Examined 12 Lan Site(s) Examined 8R: Para-esophageal (below patti) 9R: Pulmonary ligament 10R: Hilar 11R: Interlobar Right: hilar/peribronchial PATHOLOGIC STAGE CLASSIFICATION (pTNM, AJCC 8th Edition) Reporting of pT, pN, and (when applicable) pM categories is based on information available to the pathologist at the time the report is issued. As per the AJCC (Chapter 1, 8th Ed.) it is the managing physician?s responsibility to establish the final pathologic stage based upon all pertinent information, including but potentially not limited to this pathology report. pT Category pT1c pN Category pN0 ADDITIONAL FINDINGS Additional Findings Inflammation: Acute and organizing bronchopneumonia Post-obstructive changes REASON FOR VISIT: Post-operative visit HPI: Stevie Angeles is a 73 year old male ex-smoker 40 pack years (quit 2021) with history of prostate cancer and squamous cell skin cancer, who was found to have lung nodules on surveillance of known AAA. CTA chest 05/17/23 revealed nodular opacification in the right lower lobe with confluent appearance near hilum. PET/CT 06/19/23 showed intensive uptake associated with the 1.5 x 2.2 cm RUL lesion (SUV 10.3), medial right lower lobe solid lesion with groundglass extension (SUV 10) and mild uptake with prominent paratracheal node (SUV 2.2). Transbronchial biopsy 06/20/23 non-diagnostic and surveillance CT scan showed further enlargement of known RLL and RUL lesions. Transbronchial biopsy/EBUS repeated 09/19/23, biopsy of RLL lesion showed squamous cell carcinoma (lymph node stations 11RS and 11RI were neg). Case discussed at Tumor Board, decision was for upfront resection with consideration of adjuvant therapy once final pathology identified. On 11/15/23 he underwent Robotic-assisted right lower lobectomy with right lower lobe bronchoplasty closure of airway and mediastinal and hilar lymph node dissection, intercostal and phrenic nerve block by Dr Escobar. Noted an abscess. He was discharged 11/19/23. PHYSICAL EXAM: VITAL SIGNS: BP 115/67 Pulse 74 Temp 36.6 ?C (97.9 ?F) (Oral) Resp 14 Ht 170.2 cm (5' 7) Wt 77.7 kg (171 lb 6.4 oz) SpO2 95% BMI 26.85 kg/m? Room air Incision location: Right Thoracoport sites and Right Old chest tube sites Incision Assessment: Well approximated and no drainage, swelling, erythema or warmth Drain/Tubes: N/A GENERAL: well appearing, alert, no acute distress, well-hydrated, well nourished HEENT: normocephalic, midline, anicteric sclera. LUNGS: clear to auscultation, no wheezing or rhonchi HEART: RRR without murmur ABDOMEN: Soft, non-tender, non distended. No masses EXTREMITIES: No clubbing, cyanosis or edema. MUSCULOSKELETAL: Muscular strength intact. SKIN: turgor normal, no suspicious rashes or lesions NEURO: Gait normal. Sensation grossly intact. IMAGING/TESTS: CT Chest 12/14/23: IMPRESSION: 1. Unchanged size of a right upper lobe nodule with cavitations 2. Postoperative changes from a right lower lobectomy. Small right pleural effusion. 3. No new thoracic lymphadenopathy CXR 01/08/2024 INTERVAL HISTORY: Stevie Angeles returns for post op visit. He has been doing well. Breathing has improved, although still gets SOB with exertion. Incisions are healing well. CXR shows improved right lung expansion. He has a consult 01/11/[address] Goss in radiation oncology to discuss SBRT to right upper lobe nodule. He will return in [address] Chest, PFTs IMPRESSION: 73 year old male s/p Robotic-assisted right lower lobectomy with right lower lobe bronchoplasty closure of airway and mediastinal and hilar lymph node dissection, intercostal and phrenic nerve block 11/15/[address] Escobar for T1cN0 squamous cell carcinoma of the RLL of lung, with PET avid RUL nodule noted PLAN: - return in [address] chest, PFTs - oncology management with Dr Cantu - radiation consult with Dr Goss 01/11/24 Romina Bedolla APRN.PROGRAM SUPPORT ASSISTANT Allergies As of Date: 01/08/2024 (No Known Allergies) Date Reviewed: 01/08/2024 Reviewed by: Geni James MA - Fully Assessed Reason for Visit: Post-Op Visit [1236] Primary Visit Diagnosis:Malignant neoplasm of lower lobe of right lung (HCC) [C34.31] Other Visit Diagnoses:Lung nodule [R91.1] Chronic obstructive pulmonary disease, unspecified COPD type (HCC) [J44.9] Order(s):LUNG DIFFUSION CAPACITY (DLCO) [3723998] Order #: [id number]: 1 FUTURE SPIROMETRY WITH DILATOR IF OBSTRUCTED [[id number]] Order #: [id number]: 1 FUTURE Prescriptions as of 01/08/2024 - lisinopril-hydroCHLOROthiazide (ZESTORETIC) 20-12.5 mg per tablet Take 1 tablet by mouth once daily. Patient should start on December 19, 2023. - metoprolol tartrate, short acting, (LOPRESSOR) 25 mg tablet Take 1 tablet by mouth two times a day. For prevention of atrial fibrillation after thoracic surgery, stop after 30 days then resume your normal blood pressure medication - guaiFENesin (MUCINEX) 600 mg 12 hr tablet Take 1 tablet by mouth every 12 hours. - amLODIPine (NORVASC) 5 mg tablet Take 1 tablet by mouth once daily. Patient should start on December 19, 2023. - fluticasone-salmeterol (WIXELA INHUB) 250-50 mcg/dose inhaler Inhale 1 Puff as instructed two times a day. - atorvastatin (LIPITOR) 20 mg tablet Take 1 tablet by mouth once daily. 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 Follow-up and Disposition History for Encounter Date Provider Department Center 01/08/2024 [id number]EDOLLAMN [facility] Encounter Status:Closed by ROMINA BEDOLLA on 01/08/24 XR CHEST 2V FRONTAL/LAT Observed: 2023 1:30 PM Status: F Source: [facility] * * *Final Report* * * DATE OF EXAM: Jan 08 2024 1:30PM JIX [id number] - XR CHEST 2V FRONTAL/LAT / PROCEDURE REASON: Malignant neoplasm of lower lobe of right lung (HCC) * * * * Physician Interpretation * * * * EXAMINATION: CHEST RADIOGRAPH (2 VIEW FRONTAL and LATERAL) CLINICAL HISTORY: Malignant neoplasm of lower lobe of right lung (HCC) MQ: [id number] EXAM DATE/TIME: 01/08/2024 1:30 PM COMPARISON: CT chest 12/09/2023, radiographs 11/27/2023 RESULT: Lines, tubes, and devices: None. Lungs and pleura: Status post RIGHT lung surgery, probable lobectomy. Interval improvement of loculated right-sided pleural fluid. Vague nodular opacity in the RIGHT midlung zone. Calcified granuloma/granulomata in the RIGHT lung base. Resolution of trace LEFT pleural effusion and adjacent atelectasis. No pneumothorax. Cardiomediastinal silhouette: Stable cardiomediastinal silhouette. Aortic atherosclerosis Bones and soft tissues: Degenerative changes are present within the thoracic spine. IMPRESSION: See result Agency Trainer: [facility]MMAN[facility] Transcribe Date/Time: Jan 08 2024 2:44P Dictated by : CORAZON PUENTES DO This examination was interpreted and the report reviewed and electronically signed by: ALIYA BARRIENTOS MD on Jan 08 2024 3:45PM EST [id number] Observed: 01/08/2024 1:30 PM Status: COMPLETED Source: [facility] HNO ID: [id number] Author: ERMA JIN RT(R) Service: Radiology Author Type: Technologist Type: Progress Notes Filed: 01/08/2024 13:34 Note Text: Radiology Service Progress Note PATIENT NAME: Stevie Angeles DATE OF SERVICE: January 08, 2024 TIME: 1:34 PM PATIENT IDENTITY VERIFICATION COMPLETED USING TWO (2) IDENTIFIERS: Name and Date of confirmed by patient verbally. FALL SCREENING: Has the patient had 2 falls in the last year or 1 fall with injury or currently using an Ambulatory Assistive Device (Walker, Cane, Wheelchair, Crutches, etc.)? No PATIENT GENDER DATA: Male PATIENT RELEVANT IMPLANT DATA REVIEWED: Not Applicable PATIENT PRESENTS WITH AN IMPLANTABLE OR ATTACHED PAUNCH TRIMMER: No RADIOLOGY DEPARTMENT: General X-ray: Exam(s) Completed: Chest X-Ray PERIPHERAL IV DATA: Not applicable SIGNED BY: RT Roseanna(R) January 08, 2024 1:34 PM OFELIA Observed: 01/05/2024 12:00 AM Status: COMPLETED Source: [facility] Telephone (AKURFL) STEVIE ANGELES ([id number]) 1950 M DEF Date Time Provider Department 01/05/24 DON LARA During your visit today, we recorded the following information about you: Kirk Matamoros MA 01/05/2024 2:26 PM Signed ----- Message from Don Lara MD sent at 01/05/2024 2:15 PM EST ----- The lab results all look good. No change in plan. Kirk Matamoros MA 01/05/2024 2:26 PM Signed Called left message of PSA results. Kirk Matamoros MA Allergies As of Date: 01/05/2024 (No Known Allergies) Date Reviewed: 01/04/2024 Reviewed by: Nisa Low LPN - Fully Assessed Reason for Visit: Results [95] Prescriptions as of 01/05/2024 - lisinopril-hydroCHLOROthiazide (ZESTORETIC) 20-12.5 mg per tablet Take 1 tablet by mouth once daily. Patient should start on December 19, 2023. - metoprolol tartrate, short acting, (LOPRESSOR) 25 mg tablet Take 1 tablet by mouth two times a day. For prevention of atrial fibrillation after thoracic surgery, stop after 30 days then resume your normal blood pressure medication - guaiFENesin (MUCINEX) 600 mg 12 hr tablet Take 1 tablet by mouth every 12 hours. - amLODIPine (NORVASC) 5 mg tablet Take 1 tablet by mouth once daily. Patient should start on December 19, 2023. - fluticasone-salmeterol (WIXELA INHUB) 250-50 mcg/dose inhaler Inhale 1 Puff as instructed two times a day. - atorvastatin (LIPITOR) 20 mg tablet Take 1 tablet by mouth once daily. 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] 04/24/2023 Prostate cancer (HCC) [C61] 09/11/2023 Paroxysmal atrial fibrillation (HCC) [I48.0] 09/11/2023 Cancer of lower lobe of right lung (HCC) [C34.3*11/15/2023 Postoperative pain [G89.18] 11/16/2023 Stage 1 mild COPD by GOLD classification (HCC) *11/17/2023 Abscess of lower lobe of right lung without pne*11/17/2023 Pleural effusion, left [J90] 11/17/2023 Atelectasis [J98.11] 11/17/2023 Encounter Status:Closed by KIRK MATAMOROS on 01/05/24 PSA SERPL-MCNC Collected: 3:34 PM Status: F Source: [facility] Order Comment: Specimen Type : BLOOD SPECIMEN Ordering Facility: [facility] Address: [address] [place] [address] TYPE CODE TESTS RESULT OUT OF RANGE REFERENCE UNITS LAB 2857-1(LOINC) PSA SerPl-mCnc 0.08 <2.60 ng/mL Result Comment: Total PSA te st methodology used is the Electrochemiluminescence Immunoassay by [employer]. Total PSA values by differing methodologies cannot be interchanged. Performed By: #### 2857-1 ## ## [facility] CLIA [id number] [address] [place] [address] [place] Observed: 01/04/2024 3:04 PM Status: COMPLETED Source: [facility] HNO ID: [id number] Author: DON LARA MD Service: ? Author Type: Physician Type: Progress Notes Filed: 01/04/2024 15:13 Note Text: HISTORY OF PRESENT ILLNESS: The patient is a 73-year-old male presenting for follow-up management of prostate cancer. He was diagnosed in 2020 and has been treated with external beam radiation therapy. I last evaluated him one year ago, and the plan included annual monitoring of prostate-specific antigen (PSA) levels. He has not experienced any significant changes in his condition since the last visit, and there is no indication of any new symptoms related to prostate cancer. 11/05/2020 Lupron 45 mg IM injection 01/15/2021 external beam radiation therapy completed (70 Gy/28fx). 11/26/2020: Cystoscopy: Mild BPH Consultation with Dr. Roque and Dr. Neely 09/24/2020: TRUS Bx: 3+4=7, GG2, 8 cores, 5-90% NCCN unfavorable intermediate risk group @CREATNIN@ PSA (ng/mL) Date Value 12/28/2022 0.06 12/06/2021 0.04 05/25/2021 <0.02 08/10/2020 7.52 08/17/2015 2.14 PSA Screening Date Value 03/25/2015 3.64 ng/mL 03/10/2014 2.78 ng/mL 06/23/2010 2.0 NG/ML GLUCOSE UA (POCT) Negative 12/29/2022 BILIRUBIN UA (POCT) Negative 12/29/2022 KETONE UA (POCT) Negative 12/29/2022 SPECIFIC GRAVITY UA (POCT) 1.025 12/29/2022 HEMOGLOBIN/BLOOD UA (POCT) Negative 12/29/2022 PH UA (POCT) 5.5 12/29/2022 PROTEIN UA (POCT) Negative 12/29/2022 UROBILINOGEN UA (POCT) 0.2 12/29/2022 NITRITE UA (POCT) Negative 12/29/2022 LEUKOCYTES UA (POCT) Negative 12/29/2022 COLOR UA (POCT) Yellow 12/29/2022 CLARITY UA (POCT) Clear 12/29/2022 ALLERGIES: ALLERGIES No Known Allergies MEDICATIONS: lisinopril-hydroCHLOROthiazide (ZESTORETIC) 20-12.5 mg per tablet Take 1 tablet by mouth once daily. Patient should start on December 19, 2023. amLODIPine (NORVASC) 5 mg tablet Take 1 tablet by mouth once daily. Patient should start on December 19, 2023. fluticasone-salmeterol (WIXELA INHUB) 250-50 mcg/dose inhaler Inhale 1 Puff as instructed two times a day. atorvastatin (LIPITOR) 20 mg tablet Take 1 tablet by mouth once daily. gabapentin (NEURONTIN) 300 mg capsule TAKE 2 CAPSULES BY MOUTH 3 TIMES A DAY metoprolol tartrate, short acting, (LOPRESSOR) 25 mg tablet Take 1 tablet by mouth two times a day. For prevention of atrial fibrillation after thoracic surgery, stop after 30 days then resume your normal blood pressure medication (Patient not taking: Reported on 12/19/2023) guaiFENesin (MUCINEX) 600 mg 12 hr tablet Take 1 tablet by mouth every 12 hours. (Patient not taking: Reported on 12/19/2023) HISTORIES: PAST MEDICAL HISTORY Diagnosis Date Abdominal aortic aneurysm (HCC) without rupture Elevated PSA Hearing loss HTN (hypertension) Lumbosacral neuritis Malignant neoplasm of prostate (HCC) Other and unspecified hyperlipidemia Smoker Spinal stenosis of lumbar region with neurogenic claudication has a past surgical history that includes hernia repair hx (age 20); colonoscopy (05/28/2008); and removal of lung,lobectomy (Right, 11/15/2023). FAMILY HISTORY Problem Relation Age of Onset other (high blood pressure [Other]) Mother Diabetes Mother Hearing Loss Mother Prostate Cancer Other Social History Tobacco Use Smoking status: Former Current packs/day: 0.00 Average packs/day: 1 pack/day for 40.0 years (40.0 ttl pk-yrs) Types: Cigarettes Start date: 07/1981 Quit date: 07/2021 Years since quittin.4 Passive exposure: Past Smokeless tobacco: Never Substance Use Topics Alcohol use: Not Currently Alcohol/week: 6.0 standard drinks of alcohol Types: 6 Glasses of wine per week Drug use: No REVIEW OF SYSTEMS: Const: Well appearing, in no acute distress, well-hydrated, well-nourished, alert, awake, oriented to time, place and person. : See HPI The remainder of the ROS was reviewed and is negative. PHYSICAL EXAMINATION: Ht 170.2 cm (5' 7) Wt 79.8 kg (176 lb) BMI 27.57 kg/m? I personally reviewed the patient's radiology images and dictation and I agree with the radiologist's opinion. I personally reviewed the patient's laboratory studies. Assessment AND Plan: 73-year-old male with history of prostate cancer presenting for follow-up. He was diagnosed in 2020 and underwent external beam radiation therapy. There is currently no evidence of recurrence or new symptoms associated with his prostate cancer. The patient's PSA will be monitored annually to ensure stability or detect any potential relapses. 1. Prostate cancer (HCC) (C61): The patient will undergo a PSA test to monitor his prostate cancer status. An order has been placed for the PSA test to be completed soon and again in one year. The continuation of annual monitoring is designed to track any changes in PSA levels that might suggest disease recurrence. No new problems have been identified during this visit, and the patient has consented to the follow-up plan as discussed. Written and verbal health teaching given to patient, patient verbalizes understanding and agrees with treatment plan. Annual PSA Patient will call if worsening symptoms, no improvement, or any other concerns. Plan discussed. Don Lara MD Electronically Signed: Don Lara MD January 04, 2024 3:04 PM This note was partially created using voice recognition software and is inherently subject to errors including those of syntax and sound-alike substitutions which may escape proofreading. In such instances, original meaning may be extrapolated by contextual derivation. CNOV Observed: 01/04/2024 3:00 PM Status: COMPLETED Source: [facility] Office Visit (UROLMD) STEVIE ANGELES ([id number]) 1950 M DEF Date Time Provider Department 01/04/24 3:00 PM DON LARA During your visit today, we recorded the following information about you: Weight Height 79.8 kg 1.702 m Don Lara MD 01/04/2024 3:13 PM Signed HISTORY OF PRESENT ILLNESS: The patient is a 73-year-old male presenting for follow-up management of prostate cancer. He was diagnosed in 2020 and has been treated with external beam radiation therapy. I last evaluated him one year ago, and the plan included annual monitoring of prostate-specific antigen (PSA) levels. He has not experienced any significant changes in his condition since the last visit, and there is no indication of any new symptoms related to prostate cancer. 11/05/2020 Lupron 45 mg IM injection 01/15/2021 external beam radiation therapy completed (70 Gy/28fx). 11/26/2020: Cystoscopy: Mild BPH Consultation with Dr. Roque and Dr. Neely 09/24/2020: TRUS Bx: 3+4=7, GG2, 8 cores, 5-90% NCCN unfavorable intermediate risk group @CREATNIN@ PSA (ng/mL) Date Value 12/28/2022 0.06 12/06/2021 0.04 05/25/2021 <0.02 08/10/2020 7.52 08/17/2015 2.14 PSA Screening Date Value 03/25/2015 3.64 ng/mL 03/10/2014 2.78 ng/mL 06/23/2010 2.0 NG/ML GLUCOSE UA (POCT) Negative 12/29/2022 BILIRUBIN UA (POCT) Negative 12/29/2022 KETONE UA (POCT) Negative 12/29/2022 SPECIFIC GRAVITY UA (POCT) 1.025 12/29/2022 HEMOGLOBIN/BLOOD UA (POCT) Negative 12/29/2022 PH UA (POCT) 5.5 12/29/2022 PROTEIN UA (POCT) Negative 12/29/2022 UROBILINOGEN UA (POCT) 0.2 12/29/2022 NITRITE UA (POCT) Negative 12/29/2022 LEUKOCYTES UA (POCT) Negative 12/29/2022 COLOR UA (POCT) Yellow 12/29/2022 CLARITY UA (POCT) Clear 12/29/2022 ALLERGIES: ALLERGIES No Known Allergies MEDICATIONS: lisinopril-hydroCHLOROthiazide (ZESTORETIC) 20-12.5 mg per tablet Take 1 tablet by mouth once daily. Patient should start on December 19, 2023. amLODIPine (NORVASC) 5 mg tablet Take 1 tablet by mouth once daily. Patient should start on December 19, 2023. fluticasone-salmeterol (WIXELA INHUB) 250-50 mcg/dose inhaler Inhale 1 Puff as instructed two times a day. atorvastatin (LIPITOR) 20 mg tablet Take 1 tablet by mouth once daily. gabapentin (NEURONTIN) 300 mg capsule TAKE 2 CAPSULES BY MOUTH 3 TIMES A DAY metoprolol tartrate, short acting, (LOPRESSOR) 25 mg tablet Take 1 tablet by mouth two times a day. For prevention of atrial fibrillation after thoracic surgery, stop after 30 days then resume your normal blood pressure medication (Patient not taking: Reported on 12/19/2023) guaiFENesin (MUCINEX) 600 mg 12 hr tablet Take 1 tablet by mouth every 12 hours. (Patient not taking: Reported on 12/19/2023) HISTORIES: PAST MEDICAL HISTORY Diagnosis Date Abdominal aortic aneurysm (HCC) without rupture Elevated PSA Hearing loss HTN (hypertension) Lumbosacral neuritis Malignant neoplasm of prostate (HCC) Other and unspecified hyperlipidemia Smoker Spinal stenosis of lumbar region with neurogenic claudication has a past surgical history that includes hernia repair hx (age 20); colonoscopy (05/28/2008); and removal of lung,lobectomy (Right, 11/15/2023). FAMILY HISTORY Problem Relation Age of Onset other (high blood pressure [Other]) Mother Diabetes Mother Hearing Loss Mother Prostate Cancer Other Social History Tobacco Use Smoking status: Former Current packs/day: 0.00 Average packs/day: 1 pack/day for 40.0 years (40.0 ttl pk-yrs) Types: Cigarettes Start date: 07/1981 Quit date: 07/2021 Years since quittin.4 Passive exposure: Past Smokeless tobacco: Never Substance Use Topics Alcohol use: Not Currently Alcohol/week: 6.0 standard drinks of alcohol Types: 6 Glasses of wine per week Drug use: No REVIEW OF SYSTEMS: Const: Well appearing, in no acute distress, well-hydrated, well-nourished, alert, awake, oriented to time, place and person. : See HPI The remainder of the ROS was reviewed and is negative. PHYSICAL EXAMINATION: Ht 170.2 cm (5' 7) Wt 79.8 kg (176 lb) BMI 27.57 kg/m? I personally reviewed the patient's radiology images and dictation and I agree with the radiologist's opinion. I personally reviewed the patient's laboratory studies. Assessment AND Plan: 73-year-old male with history of prostate cancer presenting for follow-up. He was diagnosed in 2020 and underwent external beam radiation therapy. There is currently no evidence of recurrence or new symptoms associated with his prostate cancer. The patient's PSA will be monitored annually to ensure stability or detect any potential relapses. 1. Prostate cancer (HCC) (C61): The patient will undergo a PSA test to monitor his prostate cancer status. An order has been placed for the PSA test to be completed soon and again in one year. The continuation of annual monitoring is designed to track any changes in PSA levels that might suggest disease recurrence. No new problems have been identified during this visit, and the patient has consented to the follow-up plan as discussed. Written and verbal health teaching given to patient, patient verbalizes understanding and agrees with treatment plan. Annual PSA Patient will call if worsening symptoms, no improvement, or any other concerns. Plan discussed. Don Lara MD Electronically Signed: Don Lara MD January 04, 2024 3:04 PM This note was partially created using voice recognition software and is inherently subject to errors including those of syntax and sound-alike substitutions which may escape proofreading. In such instances, original meaning may be extrapolated by contextual derivation. Allergies As of Date: 01/04/2024 (No Known Allergies) Date Reviewed: 01/04/2024 Reviewed by: Nisa Low LPN - Fully Assessed Reason for Visit: Follow Up [171] Prostate Cancer [590] Primary Visit Diagnosis:Prostate cancer (HCC) [C61] Order(s):UA DIP, URINE (POC) [1957917] Order #: [id number]. #:[id number] PROSTATE-SPECIFIC ANTIGEN DIAGNOSTIC [SQPSA] Order #: [id number] FUTURE PROSTATE-SPECIFIC ANTIGEN DIAGNOSTIC [SQPSA] Order #: [id number] FUTURE Prescriptions as of 01/04/2024 - lisinopril-hydroCHLOROthiazide (ZESTORETIC) 20-12.5 mg per tablet Take 1 tablet by mouth once daily. Patient should start on December 19, 2023. - metoprolol tartrate, short acting, (LOPRESSOR) 25 mg tablet Take 1 tablet by mouth two times a day. For prevention of atrial fibrillation after thoracic surgery, stop after 30 days then resume your normal blood pressure medication - guaiFENesin (MUCINEX) 600 mg 12 hr tablet Take 1 tablet by mouth every 12 hours. - amLODIPine (NORVASC) 5 mg tablet Take 1 tablet by mouth once daily. Patient should start on December 19, 2023. - fluticasone-salmeterol (WIXELA INHUB) 250-50 mcg/dose inhaler Inhale 1 Puff as instructed two times a day. - atorvastatin (LIPITOR) 20 mg tablet Take 1 tablet by mouth once daily. 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 Follow-up and Disposition History for Encounter Date Provider Department Center 01/04/2024 [id number] LARA [facility] Encounter Status:Closed by DON LARA on 01/04/24 CNPN Observed: 12/28/2023 12:00 AM Status: COMPLETED Source: [facility] Telephone (RADRST) STEVIE ANGELES ([id number]) 1950 M DEF Date Time Provider Department 12/28/23 ELIAS GOSS RADALVERTO During your visit today, we recorded the following information about you: Marlen Lam 12/28/2023 2:58 PM Signed LVM to schedule consult w/ Elias Flores 12/28/2023 3:43 PM Signed Patient calling back and wants to schedule. Please try and contact him again. ThanksKp Andrew 01/01/2024 11:10 AM Signed Patient called again, would really like to schedule, but keep missing the calls. He's asking to please call him and send a MyChart. He is hard of hearing, so unsure if he's just not hearing his phone or what. I had to speak pretty loudly over the phone with him today. Thanks, Kp Allergies As of Date: 12/28/2023 (No Known Allergies) Date Reviewed: 12/19/2023 Reviewed by: Radha Farris RN - Fully Assessed Reason for Visit: Appointment [186] Orders [681] Consult [173] Prescriptions as of 01/01/2024 - lisinopril-hydroCHLOROthiazide (ZESTORETIC) 20-12.5 mg per tablet Take 1 tablet by mouth once daily. Patient should start on December 19, 2023. - metoprolol tartrate, short acting, (LOPRESSOR) 25 mg tablet Take 1 tablet by mouth two times a day. For prevention of atrial fibrillation after thoracic surgery, stop after 30 days then resume your normal blood pressure medication - guaiFENesin (MUCINEX) 600 mg 12 hr tablet Take 1 tablet by mouth every 12 hours. - amLODIPine (NORVASC) 5 mg tablet Take 1 tablet by mouth once daily. Patient should start on December 19, 2023. - fluticasone-salmeterol (WIXELA INHUB) 250-50 mcg/dose inhaler Inhale 1 Puff as instructed two times a day. - atorvastatin (LIPITOR) 20 mg tablet Take 1 tablet by mouth once daily. 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 Author Type: Physician Type: Progress Notes Filed: 01/02/2024 11:23 Note Text: [facility] [place] DEPARTMENT OF VASCULAR SURGERY OUTPATIENT VISIT DATE December 19, 2023 OUTPATIENT VISIT TYPE ESTABLISHED SERVICE DATE: 12/19/2023 SERVICE TIME: 11:02 AM PRIMARY CARE PHYSICIAN: Praful Su MD HISTORY OF PRESENT ILLNESS: Mr. Angeles is a 73 year old male who presents today for a vascular surgery follow-up visit for AAA. Aneurysm discovered on screening ultrasound in 2020 which measured 3.2x3.4cm max diameter. CT abd/pelvis performed 09/08/20 showed size of aneurysm actually 4.3cm. Patient has been followed with regular imaging of aneurysm. CTA performed 05/17/2023 showed infrarenal aortic aneurysm measuring 5 cm max diameter. Aortic ultrasound performed today measuring max aortic diameter 4.5 cm. Denies any new abdominal or back pain. Patient has history of stage I small cell lung cancer right upper and lower lobe now status post Robotic-assisted right lower lobectomy with right lower lobe bronchoplasty closure of airway and mediastinal and hilar lymph node dissection, intercostal and phrenic nerve block on 11/15/2023. Patient has recovered well. PRIOR VASCULAR INTERVENTIONS: none PAST MEDICAL HISTORY Diagnosis Date Abdominal aortic aneurysm (HCC) without rupture Elevated PSA Hearing loss HTN (hypertension) Lumbosacral neuritis Malignant neoplasm of prostate (HCC) Other and unspecified hyperlipidemia Smoker Spinal stenosis of lumbar region with neurogenic claudication PAST SURGICAL HISTORY Procedure Laterality Date COLONOSCOPY 05/28/2008 HERNIA REPAIR HX age 20 REMOVAL OF LUNG,LOBECTOMY Right 11/15/2023 Robotic-assisted right lower lobectomy with right lower lobe bronchoplasty closure of airway and mediastinal and hilar lymph node dissection, intercostal and phrenic nerve block SOCIAL HISTORY Social History Tobacco Use Smoking status: Former Current packs/day: 0.00 Average packs/day: 1 pack/day for 40.0 years (40.0 ttl pk-yrs) Types: Cigarettes Start date: 07/1981 Quit date: 07/2021 Years since quittin.3 Passive exposure: Past Smokeless tobacco: Never Substance Use Topics Alcohol use: Not Currently Alcohol/week: 6.0 standard drinks of alcohol Types: 6 Glasses of wine per week Drug use: No MEDICATIONS: lisinopril-hydroCHLOROthiazide (ZESTORETIC) 20-12.5 mg per tablet Take 1 tablet by mouth once daily. Patient should start on December 19, 2023. amLODIPine (NORVASC) 5 mg tablet Take 1 tablet by mouth once daily. Patient should start on December 19, 2023. fluticasone-salmeterol (WIXELA INHUB) 250-50 mcg/dose inhaler Inhale 1 Puff as instructed two times a day. atorvastatin (LIPITOR) 20 mg tablet Take 1 tablet by mouth once daily. gabapentin (NEURONTIN) 300 mg capsule TAKE 2 CAPSULES BY MOUTH 3 TIMES A DAY iv contrast (will be provided with radiology test) CT Chest W -Inject, intravenously, once for 1 dose.No IV access, insert saline lock prior to the beginning of sedation, infusion, injection of imaging exam. Discontinue saline lock post exam. If Pt. has a central line or IVAD, may access for administration according to line specific nursing protocol. Once exam is complete flush line and de-access according to line specific nursing protocol in the CT contrast administration guidelines link. metoprolol tartrate, short acting, (LOPRESSOR) 25 mg tablet Take 1 tablet by mouth two times a day. For prevention of atrial fibrillation after thoracic surgery, stop after 30 days then resume your normal blood pressure medication (Patient not taking: Reported on 12/19/2023) guaiFENesin (MUCINEX) 600 mg 12 hr tablet Take 1 tablet by mouth every 12 hours. (Patient not taking: Reported on 12/19/2023) ALLERGIES: ALLERGIES No Known Allergies PHYSICAL EXAM: BP 140/70 (BP Site: Left Arm, BP Position: Sitting, BP Cuff Size: Regular Adult) Pulse 98 SpO2 (!) 56% General: Alert and oriented, No acute distress Cardiovascular: Pulse regular. Lungs: Normal respiratory effort Extremities: No edema, no chronic skin changes, no ulceration Neurological: Normal cognition and motor skills. No weakness or sensory deficit. Vascular: radial palpable, femoral palpable, pedal pulses palp Diagnostic tests reviewed for today's visit: CTA Abdominal ultrasound IMPRESSION: Mr. Angeles is a 73 year old male with stable asymptomatic infrarenal AAA measuring 4.5x5cm. PLAN and RECOMMENDATIONS: - reviewed results of imaging with patient - follow up in 6 months with repeat aorta ultrasound, if any discrepancy will plan for CTA - Continue cardiovascular risk factor modification with blood pressure control and asa/statin therapy as tolerated I spent 30 minutes in the visit, with more than 50% of the total tewy-rt-pdcb time of the visit in counseling / coordination of care. Malia Egan DO CNOV Observed: 12/19/2023 11:00 AM Status: COMPLETED Source: [facility] Office Visit (VASSMD) STEVIE ANGELES ([id number]) 1950 M DEF Date Time Provider Department 12/19/23 11:00 AM MALIA EGAN During your visit today, we recorded the following information about you: Pulse Blood pressure 98/minute 140/70 Malia Egan DO 01/02/2024 11:23 AM [facility] [place] DEPARTMENT OF VASCULAR SURGERY OUTPATIENT VISIT DATE December 19, 2023 OUTPATIENT VISIT TYPE ESTABLISHED SERVICE DATE: 12/19/2023 SERVICE TIME: 11:02 AM PRIMARY CARE PHYSICIAN: Praful Su MD HISTORY OF PRESENT ILLNESS: Mr. Angeles is a 73 year old male who presents today for a vascular surgery follow-up visit for AAA. Aneurysm discovered on screening ultrasound in 2020 which measured 3.2x3.4cm max diameter. CT abd/pelvis performed 09/08/20 showed size of aneurysm actually 4.3cm. Patient has been followed with regular imaging of aneurysm. CTA performed 05/17/2023 showed infrarenal aortic aneurysm measuring 5 cm max diameter. Aortic ultrasound performed today measuring max aortic diameter 4.5 cm. Denies any new abdominal or back pain. Patient has history of stage I small cell lung cancer right upper and lower lobe now status post Robotic-assisted right lower lobectomy with right lower lobe bronchoplasty closure of airway and mediastinal and hilar lymph node dissection, intercostal and phrenic nerve block on 11/15/2023. Patient has recovered well. PRIOR VASCULAR INTERVENTIONS: none PAST MEDICAL HISTORY Diagnosis Date Abdominal aortic aneurysm (HCC) without rupture Elevated PSA Hearing loss HTN (hypertension) Lumbosacral neuritis Malignant neoplasm of prostate (HCC) Other and unspecified hyperlipidemia Smoker Spinal stenosis of lumbar region with neurogenic claudication PAST SURGICAL HISTORY Procedure Laterality Date COLONOSCOPY 05/28/2008 HERNIA REPAIR HX age 20 REMOVAL OF LUNG,LOBECTOMY Right 11/15/2023 Robotic-assisted right lower lobectomy with right lower lobe bronchoplasty closure of airway and mediastinal and hilar lymph node dissection, intercostal and phrenic nerve block SOCIAL HISTORY Social History Tobacco Use Smoking status: Former Current packs/day: 0.00 Average packs/day: 1 pack/day for 40.0 years (40.0 ttl pk-yrs) Types: Cigarettes Start date: 07/1981 Quit date: 07/2021 Years since quittin.3 Passive exposure: Past Smokeless tobacco: Never Substance Use Topics Alcohol use: Not Currently Alcohol/week: 6.0 standard drinks of alcohol Types: 6 Glasses of wine per week Drug use: No MEDICATIONS: lisinopril-hydroCHLOROthiazide (ZESTORETIC) 20-12.5 mg per tablet Take 1 tablet by mouth once daily. Patient should start on December 19, 2023. amLODIPine (NORVASC) 5 mg tablet Take 1 tablet by mouth once daily. Patient should start on December 19, 2023. fluticasone-salmeterol (WIXELA INHUB) 250-50 mcg/dose inhaler Inhale 1 Puff as instructed two times a day. atorvastatin (LIPITOR) 20 mg tablet Take 1 tablet by mouth once daily. gabapentin (NEURONTIN) 300 mg capsule TAKE 2 CAPSULES BY MOUTH 3 TIMES A DAY iv contrast (will be provided with radiology test) CT Chest W -Inject, intravenously, once for 1 dose.No IV access, insert saline lock prior to the beginning of sedation, infusion, injection of imaging exam. Discontinue saline lock post exam. If Pt. has a central line or IVAD, may access for administration according to line specific nursing protocol. Once exam is complete flush line and de-access according to line specific nursing protocol in the CT contrast administration guidelines link. metoprolol tartrate, short acting, (LOPRESSOR) 25 mg tablet Take 1 tablet by mouth two times a day. For prevention of atrial fibrillation after thoracic surgery, stop after 30 days then resume your normal blood pressure medication (Patient not taking: Reported on 12/19/2023) guaiFENesin (MUCINEX) 600 mg 12 hr tablet Take 1 tablet by mouth every 12 hours. (Patient not taking: Reported on 12/19/2023) ALLERGIES: ALLERGIES No Known Allergies PHYSICAL EXAM: BP 140/70 (BP Site: Left Arm, BP Position: Sitting, BP Cuff Size: Regular Adult) Pulse 98 SpO2 (!) 56% General: Alert and oriented, No acute distress Cardiovascular: Pulse regular. Lungs: Normal respiratory effort Extremities: No edema, no chronic skin changes, no ulceration Neurological: Normal cognition and motor skills. No weakness or sensory deficit. Vascular: radial palpable, femoral palpable, pedal pulses palp Diagnostic tests reviewed for today's visit: CTA Abdominal ultrasound IMPRESSION: Mr. Angeles is a 73 year old male with stable asymptomatic infrarenal AAA measuring 4.5x5cm. PLAN and RECOMMENDATIONS: - reviewed results of imaging with patient - follow up in 6 months with repeat aorta ultrasound, if any discrepancy will plan for CTA - Continue cardiovascular risk factor modification with blood pressure control and asa/statin therapy as tolerated I spent 30 minutes in the visit, with more than 50% of the total bxyh-nn-helg time of the visit in counseling / coordination of care. Malia Egan DO Referring Provider: TEA ECKERT [[id number]] Allergies As of Date: 12/19/2023 (No Known Allergies) Date Reviewed: 12/19/2023 Reviewed by: Radha Farris RN - Fully Assessed Reason for Visit: Follow Up [171] Cmt: AAA Primary Visit Diagnosis:Infrarenal abdominal aortic aneurysm (AAA) without rupture (HCC) [I71.43] Order(s):US ABD AORTA COMPLETE VAS LAB [[id number]] Order #: [id number] FUTURE Prescriptions as of 01/02/2024 - lisinopril-hydroCHLOROthiazide (ZESTORETIC) 20-12.5 mg per tablet Take 1 tablet by mouth once daily. Patient should start on December 19, 2023. - metoprolol tartrate, short acting, (LOPRESSOR) 25 mg tablet Take 1 tablet by mouth two times a day. For prevention of atrial fibrillation after thoracic surgery, stop after 30 days then resume your normal blood pressure medication - guaiFENesin (MUCINEX) 600 mg 12 hr tablet Take 1 tablet by mouth every 12 hours. - amLODIPine (NORVASC) 5 mg tablet Take 1 tablet by mouth once daily. Patient should start on December 19, 2023. - fluticasone-salmeterol (WIXELA INHUB) 250-50 mcg/dose inhaler Inhale 1 Puff as instructed two times a day. - atorvastatin (LIPITOR) 20 mg tablet Take 1 tablet by mouth once daily. 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 Follow-up and Disposition History for Encounter Date Provider Department Center 12/19/2023 [id number] EGAN [facility] Encounter Status:Closed by MALIA EGAN on 01/02/24 US ABD AORTA COMPLETE VAS LAB Observed: 12/19/2023 9:32 AM Status: F Source: [facility] Abdominal Aorta Bilateral/Complete Date of service/time: 12/19/2023 9:32:11 AM Name: STEVIE ANGELES Date of : 1950 Age: 73 years Gender: M Medical History Tobacco: Former History of abdominal aortic aneurysm: Yes Hypertension: Yes Clinical Indication Abdominal aortic aneurysm. TECHNIQUE -------- An aortic duplex ultrasound examination was performed, including grayscale imaging and color Doppler and spectral Doppler examination of abdominal aorta as well as the below mentioned arteries. FINDINGS -------- AORTA Proximal: PSV: 70 cm/s. EDV: 12 cm/s. 2.10 cm x 2.20 cm At renal: PSV: 49 cm/s. EDV: 0 cm/s. 2.32 cm x 2.28 cm Mid: PSV: 67 cm/s. EDV: 0 cm/s. 3.00 cm x 2.95 cm Distal: 4.27 cm x 4.43 cm RIGHT VESSELS Common iliac origin: PSV: 41 cm/s. EDV: 0 cm/s. 1.19 cm x 1.06 cm Common iliac proximal: PSV: 63 cm/s. EDV: 0 cm/s. 1.34 cm x 1.24 cm Common iliac mid: PSV: 76 cm/s. EDV: 0 cm/s. 1.27 cm x 1.32 cm Common iliac distal: PSV: 92 cm/s. EDV: 0 cm/s. 0.93 cm x 0.87 cm Internal iliac proximal: PSV: 89 cm/s. EDV: 0 cm/s. 0.88 cm x 0.88 cm LEFT VESSELS Common iliac origin: PSV: 40 cm/s. EDV: 0 cm/s. 1.50 cm x 1.61 cm Common iliac proximal: PSV: 85 cm/s. EDV: 0 cm/s. 1.17 cm x 1.25 cm Common iliac mid: PSV: 102 cm/s. EDV: 0 cm/s. 1.22 cm x 1.16 cm Common iliac distal: PSV: 82 cm/s. EDV: 0 cm/s. 1.22 cm x 1.25 cm Internal iliac proximal: PSV: 101 cm/s. EDV: 12 cm/s. 0.75 cm x 0.73 cm IMPRESSION Compared to prior study of 04/25/2023, Unable to duplicate mid aortic aneurysm size, from previous study, on today's exam. AORTA Abdominal aortic aneurysm measuring 4.27 x 4.43 x 4.49cm at distal. Abdominal aortic aneurysm measuring 3.0 x 2.95 x 2.93cm at mid. RIGHT VESSELS Common iliac artery patent without evidence of aneurysm throughout. Common iliac artery plaque noted without evidence of hemodynamically significant stenosis . Internal iliac artery patent without evidence of aneurysm at proximal. LEFT VESSELS Common iliac artery appears ectatic measuring 1.50 x 1.61 x 1.55cm at origin. External iliac artery patent without evidence of aneurysm at proximal. Common iliac artery plaque noted without evidence of hemodynamically significant stenosis . Technologist: Nafisa Bower [facility] Ordering physician: CHIP LOWERY Interpreting physician: MICHAEL Ford MD Final CC [employer] Medical Image : [id number] See Link below for Image PROGRESS Observed: 12/19/2023 9:02 AM Status: COMPLETED Source: [facility] ID: [id number] Author: KEVIN CANTU MD Service: ? Author Type: Physician Type: Progress Notes Filed: 12/19/2023 14:02 Note Text: (Elements copied from my note dated 11/29/23, have been reviewed and updated where appropriate, and all reflect current assessment and medical decision making during today's encounter, December 19, 2023) HISTORY OF PRESENT ILLNESS: Stevie Angeles is a 73 year old male Cancer Staging No matching staging information was found for the patient. 05/17/23 CTA chest: Nodular opacification in the right lower lobe with confluent appearance near the hilum 06/19/23 PET/CT: FDG avid right upper lobe lung nodule and medial right lower lobe solid lesion with groundglass extension, concerning for neoplastic process. Mildly prominent mediastinal lymph nodes with mild uptake likely reactive. 06/20/23: Bronchoscopy non-diagnostic of malignancy 08/28/23 CT chest: Further interval enlargement of suspicious masslike opacity in the R lower lobe and mild enlargement of suspicious spiculated and cavitary nodule in the RIGHT upper lobe. 09/19/23 Bronchoscopy confirming SCC of RLL, negative 11 Rl and 11RS nodes *PD-L1 0% 11/15/23 R lower lobectomy with Dr. 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 *5 cm AAA under surveillance with Tea Eckert TREATMENT HISTORY: SCANS: 12/09/23: Unchanged size of RUL nodule compared to scans from 08/28/23 SUBJECTIVE: Feels near his baseline. Some pain at site of VATS ASSESSMENT/PLAN: #NSCLC, squamous histology, synchronous vs T4 (RUL satellite lesion) Patient initally presented with what appeared to be a 8.3cm RLL lesion and 2 cm RUL lesion, unclear if iplsateral lung metastatic disease or synchronus disease. After conferring with Dr. Escobar, it was unclear if there would be any benefit in providing neoadjuvant chemoIO given PD-L1 of 0% vs adjuvant therapy. Patient went directly to surgery where it was found that the large RLL lesion was primarily abscess with a pT1c lesion and no positive lymph nodes. As such, adjuvant chemotherapy is not indicated based off the resected disease. As the patient was not a candidate for a pneumonectomy, the plan for the RUL lesion was possible SBRT. Repeat scans show stability of the RUL lesion without evidence ofother disease. At this juncture, will send to radiation oncology for consideration for SBRT to the RUL nodule and otherwise plan for surveillance scans in 4 months. Medical Decision Making: Level: 4 - Moderate Written and verbal health teaching given to patient, patient verbalizes understanding and agrees with treatment plan. PAST MEDICAL HISTORY Diagnosis Date Abdominal aortic aneurysm (HCC) without rupture Elevated PSA Hearing loss HTN (hypertension) Lumbosacral neuritis Malignant neoplasm of prostate (HCC) Other and unspecified hyperlipidemia Smoker Spinal stenosis of lumbar region with neurogenic claudication PAST SURGICAL HISTORY Procedure Laterality Date COLONOSCOPY 05/28/2008 HERNIA REPAIR HX age 20 REMOVAL OF LUNG,LOBECTOMY Right 11/15/2023 Robotic-assisted right lower lobectomy with right lower lobe bronchoplasty closure of airway and mediastinal and hilar lymph node dissection, intercostal and phrenic nerve block FAMILY HISTORY Problem Relation Age of Onset other (high blood pressure [Other]) Mother Diabetes Mother Hearing Loss Mother Prostate Cancer Other Social History Tobacco Use Smoking status: Former Current packs/day: 0.00 Average packs/day: 1 pack/day for 40.0 years (40.0 ttl pk-yrs) Types: Cigarettes Start date: 07/1981 Quit date: 07/2021 Years since quittin.3 Passive exposure: Past Smokeless tobacco: Never Substance Use Topics Alcohol use: Not Currently Alcohol/week: 6.0 standard drinks of alcohol Types: 6 Glasses of wine per week Drug use: No ALLERGIES: ALLERGIES No Known Allergies CURRENT OUTPATIENT MEDICATIONS: amLODIPine (NORVASC) 5 mg tablet Take 1 tablet by mouth once daily. Patient should start on December 19, 2023. atorvastatin (LIPITOR) 20 mg tablet Take 1 tablet by mouth once daily. gabapentin (NEURONTIN) 300 mg capsule TAKE 2 CAPSULES BY MOUTH 3 TIMES A DAY lisinopril-hydroCHLOROthiazide (ZESTORETIC) 20-12.5 mg per tablet Take 1 tablet by mouth once daily. Patient should start on December 19, 2023. metoprolol tartrate, short acting, (LOPRESSOR) 25 mg tablet Take 1 tablet by mouth two times a day. For prevention of atrial fibrillation after thoracic surgery, stop after 30 days then resume your normal blood pressure medication (Patient not taking: Reported on 12/19/2023) guaiFENesin (MUCINEX) 600 mg 12 hr tablet Take 1 tablet by mouth every 12 hours. (Patient not taking: Reported on 12/19/2023) fluticasone-salmeterol (WIXELA INHUB) 250-50 mcg/dose inhaler Inhale 1 Puff as instructed two times a day. REVIEW OF SYSTEMS: Review of systems unremarkable except as noted in the HPI. PHYSICAL EXAMINATION: VITAL SIGNS: BP 142/69 Pulse 58 Temp (Src) 98 (Temporal) Resp 12 Wt 185 lb 3 oz (84.0kg) SpO2 98% Physical Exam Constitutional: General: He is not in acute distress. Appearance: Normal appearance. HENT: Head: Normocephalic and atraumatic. Eyes: Extraocular Movements: Extraocular movements intact. Pulmonary: Effort: Pulmonary effort is normal. No respiratory distress. Skin: Coloration: Skin is not jaundiced. Neurological: General: No focal deficit present. Mental Status: He is alert. Mental status is at baseline. LABS: Latest Ref Rng AND Units 11/19/2023 CBC WBC 3.70 - 11.00 k/uL 7.58 RBC 4.20 - 6.00 m/uL 3.94 Hemoglobin 13.0 - 17.0 g/dL 12.2 Hematocrit 39.0 - 51.0 % 37.1 MCV 80.0 - 100.0 fL 94.2 MCH 26.0 - 34.0 pg 31.0 MCHC 30.5 - 36.0 g/dL 32.9 RDW-CV 11.5 - 15.0 % 13.2 Platelet Count 150 - 400 k/uL 293 MPV 9.0 - 12.7 fL 9.0 Latest Ref Rng AND Units 11/19/2023 CMP Sodium 136 - 144 mmol/L 137 Potassium 3.7 - 5.1 mmol/L 3.3 Chloride 98 - 107 mmol/L 100 CO2 22 - 30 mmol/L 26 Glucose 74 - 99 mg/dL 110 BUN 9 - 24 mg/dL 9 Creatinine 0.73 - 1.22 mg/dL 0.61 EGFR >=60 mL/min/1.73m? 103 Calcium 8.5 - 10.2 mg/dL 8.8 No results found for: TSH Kevin Cantu MD CNOVSP Observed: 12/19/2023 8:50 AM Status: COMPLETED Source: [facility] Visit (SP) Office (HEMMED) STEVIE ANGELES ([id number]) 1950 M DEF Date Time Provider Department 12/19/23 8:50 AM KEVIN CANTU During your visit today, we recorded the following information about you: Temperature Pulse Respiration Blood pressure 98 degrees 58/minute 12/minute 142/69 Weight 84 kg Kevin Cantu MD 12/19/2023 2:02 PM Signed (Elements copied from my note dated 11/29/23, have been reviewed and updated where appropriate, and all reflect current assessment and medical decision making during today's encounter, December 19, 2023) HISTORY OF PRESENT ILLNESS: Stevie Angeles is a 73 year old male Cancer Staging No matching staging information was found for the patient. 05/17/23 CTA chest: Nodular opacification in the right lower lobe with confluent appearance near the hilum 06/19/23 PET/CT: FDG avid right upper lobe lung nodule and medial right lower lobe solid lesion with groundglass extension, concerning for neoplastic process. Mildly prominent mediastinal lymph nodes with mild uptake likely reactive. 06/20/23: Bronchoscopy non-diagnostic of malignancy 08/28/23 CT chest: Further interval enlargement of suspicious masslike opacity in the R lower lobe and mild enlargement of suspicious spiculated and cavitary nodule in the RIGHT upper lobe. 09/19/23 Bronchoscopy confirming SCC of RLL, negative 11 Rl and 11RS nodes *PD-L1 0% 11/15/23 R lower lobectomy with Dr. 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 *5 cm AAA under surveillance with Tea Eckert TREATMENT HISTORY: SCANS: 12/09/23: Unchanged size of RUL nodule compared to scans from 08/28/23 SUBJECTIVE: Feels near his baseline. Some pain at site of VATS ASSESSMENT/PLAN: #NSCLC, squamous histology, synchronous vs T4 (RUL satellite lesion) Patient initally presented with what appeared to be a 8.3cm RLL lesion and 2 cm RUL lesion, unclear if iplsateral lung metastatic disease or synchronus disease. After conferring with Dr. Escobar, it was unclear if there would be any benefit in providing neoadjuvant chemoIO given PD-L1 of 0% vs adjuvant therapy. Patient went directly to surgery where it was found that the large RLL lesion was primarily abscess with a pT1c lesion and no positive lymph nodes. As such, adjuvant chemotherapy is not indicated based off the resected disease. As the patient was not a candidate for a pneumonectomy, the plan for the RUL lesion was possible SBRT. Repeat scans show stability of the RUL lesion without evidence of other disease. At this juncture, will send to radiation oncology for consideration for SBRT to the RUL nodule and otherwise plan for surveillance scans in 4 months. Medical Decision Making: Level: 4 - Moderate Written and verbal health teaching given to patient, patient verbalizes understanding and agrees with treatment plan. PAST MEDICAL HISTORY Diagnosis Date Abdominal aortic aneurysm (HCC) without rupture Elevated PSA Hearing loss HTN (hypertension) Lumbosacral neuritis Malignant neoplasm of prostate (HCC) Other and unspecified hyperlipidemia Smoker Spinal stenosis of lumbar region with neurogenic claudication PAST SURGICAL HISTORY Procedure Laterality Date COLONOSCOPY 05/28/2008 HERNIA REPAIR HX age 20 REMOVAL OF LUNG,LOBECTOMY Right 11/15/2023 Robotic-assisted right lower lobectomy with right lower lobe bronchoplasty closure of airway and mediastinal and hilar lymph node dissection, intercostal and phrenic nerve block FAMILY HISTORY Problem Relation Age of Onset other (high blood pressure [Other]) Mother Diabetes Mother Hearing Loss Mother Prostate Cancer Other Social History Tobacco Use Smoking status: Former Current packs/day: 0.00 Average packs/day: 1 pack/day for 40.0 years (40.0 ttl pk-yrs) Types: Cigarettes Start date: 07/1981 Quit date: 07/2021 Years since quittin.3 Passive exposure: Past Smokeless tobacco: Never Substance Use Topics Alcohol use: Not Currently Alcohol/week: 6.0 standard drinks of alcohol Types: 6 Glasses of wine per week Drug use: No ALLERGIES: ALLERGIES No Known Allergies CURRENT OUTPATIENT MEDICATIONS: amLODIPine (NORVASC) 5 mg tablet Take 1 tablet by mouth once daily. Patient should start on December 19, 2023. atorvastatin (LIPITOR) 20 mg tablet Take 1 tablet by mouth once daily. gabapentin (NEURONTIN) 300 mg capsule TAKE 2 CAPSULES BY MOUTH 3 TIMES A DAY lisinopril-hydroCHLOROthiazide (ZESTORETIC) 20-12.5 mg per tablet Take 1 tablet by mouth once daily. Patient should start on December 19, 2023. metoprolol tartrate, short acting, (LOPRESSOR) 25 mg tablet Take 1 tablet by mouth two times a day. For prevention of atrial fibrillation after thoracic surgery, stop after 30 days then resume your normal blood pressure medication (Patient not taking: Reported on 12/19/2023) guaiFENesin (MUCINEX) 600 mg 12 hr tablet Take 1 tablet by mouth every 12 hours. (Patient not taking: Reported on 12/19/2023) fluticasone-salmeterol (WIXELA INHUB) 250-50 mcg/dose inhaler Inhale 1 Puff as instructed two times a day. REVIEW OF SYSTEMS: Review of systems unremarkable except as noted in the HPI. PHYSICAL EXAMINATION: VITAL SIGNS: BP 142/69 Pulse 58 Temp (Src) 98 (Temporal) Resp 12 Wt 185 lb 3 oz (84.0kg) SpO2 98% Physical Exam Constitutional: General: He is not in acute distress. Appearance: Normal appearance. HENT: Head: Normocephalic and atraumatic. Eyes: Extraocular Movements: Extraocular movements intact. Pulmonary: Effort: Pulmonary effort is normal. No respiratory distress. Skin: Coloration: Skin is not jaundiced. Neurological: General: No focal deficit present. Mental Status: He is alert. Mental status is at baseline. LABS: Latest Ref Rng AND Units 11/19/2023 CBC WBC 3.70 - 11.00 k/uL 7.58 RBC 4.20 - 6.00 m/uL 3.94 Hemoglobin 13.0 - 17.0 g/dL 12.2 Hematocrit 39.0 - 51.0 % 37.1 MCV 80.0 - 100.0 fL 94.2 MCH 26.0 - 34.0 pg 31.0 MCHC 30.5 - 36.0 g/dL 32.9 RDW-CV 11.5 - 15.0 % 13.2 Platelet Count 150 - 400 k/uL 293 MPV 9.0 - 12.7 fL 9.0 Latest Ref Rng AND Units 11/19/2023 CMP Sodium 136 - 144 mmol/L 137 Potassium 3.7 - 5.1 mmol/L 3.3 Chloride 98 - 107 mmol/L 100 CO2 22 - 30 mmol/L 26 Glucose 74 - 99 mg/dL 110 BUN 9 - 24 mg/dL 9 Creatinine 0.73 - 1.22 mg/dL 0.61 EGFR >=60 mL/min/1.73m? 103 Calcium 8.5 - 10.2 mg/dL 8.8 No results found for: TSH Kevin Cantu MD Allergies As of Date: 12/19/2023 (No Known Allergies) Date Reviewed: 12/19/2023 Reviewed by: Radha Farris RN - Fully Assessed Reason for Visit: Follow Up [171] Lung Cancer [562] Primary Visit Diagnosis:Malignant neoplasm of unspecified part of unspecified bronchus or lung (HCC) [C34.90] Order(s):CT CHEST W IVCON [[id number]] Order #: [id number] FUTURE iv contrast (will be provided with radiology test)CT Chest W -Inject, intravenously, once for 1 dose.No IV access, insert saline lock prior to the beginning of sedation, infusion, injection of imaging exam. Discontinue saline lock post exam. If Pt. has a central line or IVAD, may access for administration according to line specific nursing protocol. Once exam is complete flush line and de-access according to line specific nursing protocol in the CT contrast administration guidelines link.Disp: 1 EachRfl: 0 RAD/ONC CONSULT [9037] Order #: [id number]: 1 FUTURE Disposition: Return in about 4 months (around 04/20/2024). Follow-up and Disposition History for Encounter Date Provider Department Center 12/19/2023 [id number] CANTUWuhan [facility] Prescriptions as of 12/19/2023 - iv contrast (will be provided with radiology test) CT Chest W -Inject, intravenously, once for 1 dose.No IV access, insert saline lock prior to the beginning of sedation, infusion, injection of imaging exam. Discontinue saline lock post exam. If Pt. has a central line or IVAD, may access for administration according to line specific nursing protocol. Once exam is complete flush line and de-access according to line specific nursing protocol in the CT contrast administration guidelines link. - lisinopril-hydroCHLOROthiazide (ZESTORETIC) 20-12.5 mg per tablet Take 1 tablet by mouth once daily. Patient should start on December 19, 2023. - metoprolol tartrate, short acting, (LOPRESSOR) 25 mg tablet Take 1 tablet by mouth two times a day. For prevention of atrial fibrillation after thoracic surgery, stop after 30 days then resume your normal blood pressure medication - guaiFENesin (MUCINEX) 600 mg 12 hr tablet Take 1 tablet by mouth every 12 hours. - amLODIPine (NORVASC) 5 mg tablet Take 1 tablet by mouth once daily. Patient should start on December 19, 2023. - fluticasone-salmeterol (WIXELA INHUB) 250-50 mcg/dose inhaler Inhale 1 Puff as instructed two times a day. - atorvastatin (LIPITOR) 20 mg tablet Take 1 tablet by mouth once daily. 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] 04/24/2023 Prostate cancer (HCC) [C61] 09/11/2023 Paroxysmal atrial fibrillation (HCC) [I48.0] 09/11/2023 Cancer of lower lobe of right lung (HCC) [C34.3*11/15/2023 Postoperative pain [G89.18] 11/16/2023 Stage 1 mild COPD by GOLD classification (HCC) *11/17/2023 Abscess of lower lobe of right lung without pne*11/17/2023 Pleural effusion, left [J90] 11/17/2023 Atelectasis [J98.11] 11/17/2023 Encounter Status:Closed by KEVIN CANTU on 12/19/23 OFELIA Observed: 12/19/2023 12:00 AM Status: COMPLETED Source: [facility] Telephone (RADRST) STEVIE ANGELES ([id number]) 1950 M DEF Date Time Provider Department 12/19/23 ELIAS GOSS During your visit today, we recorded the following information about you: Mini Vigil 12/19/2023 2:46 PM Signed 12/19/2023 lvm and mc (1st and 2nd attempt) to schedule patient new patient consult with for radiation Elias Franco 12/20/2023 10:45 AM Signed Patient calling back about setting this up. I apologize, he did not mention he received a voicemail already, but he stated he prefers to be called, but he's hard of hearing. You can also send him a MyChart. Thanks, Mini Arreaga 12/20/2023 11:26 AM Signed 12/20/2023 3rd attempt: lvm No longer reaching out to patient Allergies As of Date: 12/19/2023 (No Known Allergies) Date Reviewed: 12/19/2023 Reviewed by: Radha Farris RN - Fully Assessed Reason for Visit: Appointment [186] Cmt: New Patient Consult with Prescriptions as of 12/20/2023 - iv contrast (will be provided with radiology test) CT Chest W -Inject, intravenously, once for 1 dose.No IV access, insert saline lock prior to the beginning of sedation, infusion, injection of imaging exam. Discontinue saline lock post exam. If Pt. has a central line or IVAD, may access for administration according to line specific nursing protocol. Once exam is complete flush line and de-access according to line specific nursing protocol in the CT contrast administration guidelines link. - lisinopril-hydroCHLOROthiazide (ZESTORETIC) 20-12.5 mg per tablet Take 1 tablet by mouth once daily. Patient should start on December 19, 2023. - metoprolol tartrate, short acting, (LOPRESSOR) 25 mg tablet Take 1 tablet by mouth two times a day. For prevention of atrial fibrillation after thoracic surgery, stop after 30 days then resume your normal blood pressure medication - guaiFENesin (MUCINEX) 600 mg 12 hr tablet Take 1 tablet by mouth every 12 hours. - amLODIPine (NORVASC) 5 mg tablet Take 1 tablet by mouth once daily. Patient should start on December 19, 2023. - fluticasone-salmeterol (WIXELA INHUB) 250-50 mcg/dose inhaler Inhale 1 Puff as instructed two times a day. - atorvastatin (LIPITOR) 20 mg tablet Take 1 tablet by mouth once daily. 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] 04/24/2023 Prostate cancer (HCC) [C61] 09/11/2023 Paroxysmal atrial fibrillation (HCC) [I48.0] 09/11/2023 Cancer of lower lobe of right lung (HCC) [C34.3*11/15/2023 Postoperative pain [G89.18] 11/16/2023 Stage 1 mild COPD by GOLD classification (HCC) *11/17/2023 Abscess of lower lobe of right lung without pne*11/17/2023 Pleural effusion, left [J90] 11/17/2023 Atelectasis [J98.11] 11/17/2023 Encounter Status:Closed by MINI VIGIL on 12/20/23 ELVIRAN Observed: 12/19/2023 12:00 AM Status: COMPLETED Source: [facility] Telephone ([employer]) STEVIE ANGELES ([id number]) 1950 M DEF Date Time Provider Department 12/19/23 ELIAS GOSS During your visit today, we recorded the following information about you: Allergies As of Date: 12/19/2023 (No Known Allergies) Date Reviewed: 12/19/2023 Reviewed by: Radha Farris, RN - Fully Assessed Reason for Visit: Appointment [186] Primary Visit Diagnosis:Cancer of bronchus of right upper lobe (HCC) [C34.11] Prescriptions as of 12/19/2023 - iv contrast (will be provided with radiology test) CT Chest W -Inject, intravenously, once for 1 dose.No IV access, insert saline lock prior to the beginning of sedation, infusion, injection of imaging exam. Discontinue saline lock post exam. If Pt. has a central line or IVAD, may access for administration according to line specific nursing protocol. Once exam is complete flush line and de-access according to line specific nursing protocol in the CT contrast administration guidelines link. - lisinopril-hydroCHLOROthiazide (ZESTORETIC) 20-12.5 mg per tablet Take 1 tablet by mouth once daily. Patient should start on December 19, 2023. - metoprolol tartrate, short acting, (LOPRESSOR) 25 mg tablet Take 1 tablet by mouth two times a day. For prevention of atrial fibrillation after thoracic surgery, stop after 30 days then resume your normal blood pressure medication - guaiFENesin (MUCINEX) 600 mg 12 hr tablet Take 1 tablet by mouth every 12 hours. - amLODIPine (NORVASC) 5 mg tablet Take 1 tablet by mouth once daily. Patient should start on December 19, 2023. - fluticasone-salmeterol (WIXELA INHUB) 250-50 mcg/dose inhaler Inhale 1 Puff as instructed two times a day. - atorvastatin (LIPITOR) 20 mg tablet Take 1 tablet by mouth once daily. 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] 04/24/2023 Prostate cancer (HCC) [C61] 09/11/2023 Paroxysmal atrial fibrillation (HCC) [I48.0] 09/11/2023 Cancer of lower lobe of right lung (HCC) [C34.3*11/15/2023 Postoperative pain [G89.18] 11/16/2023 Stage 1 mild COPD by GOLD classification (HCC) *11/17/2023 Abscess of lower lobe of right lung without pne*11/17/2023 Pleural effusion, left [J90] 11/17/2023 Atelectasis [J98.11] 11/17/2023 Encounter Status:Closed by ELIAS GOSS on 12/19/23 CT CHEST WO IVCON Observed: 12/09/2023 9:13 AM Status: F Source: [facility] * * *Final Report* * * DATE OF EXAM: Dec 09 2023 9:13AM [facility] 0541 - CT CHEST WO IVCON / PROCEDURE REASON: C34.90-Squamous cell carcinoma of lung, unspecified laterality (HCC) * * * * Physician Interpretation * * * * EXAMINATION: CHEST CT WITHOUT CONTRAST CLINICAL HISTORY: Squamous cell carcinoma of lung Technique: Spiral CT acquisition of the chest from the thoracic inlet to the upper abdomen without contrast. MQ: [id number] CT Radiation dose: Integrated Dose-length product (DLP) for this visit = 336 mGy*cm CT Dose Reduction Employed: Automated exposure control (AEC) Comparison: CT chest 08/28/2023 RESULT: Limitations: None. Lines, tubes, and devices: None. Lung parenchyma and airways: Postoperative changes from a right lower lobectomy. Right upper lobe nodule with cavitations measures 2 x 1.4 cm (2:114) and has not appreciably changed in size. Stable calcified nodules in the right middle lobe. Stable 3 mm nodule lateral left lower lobe (2:152). No new nodules are visualized. No acute airspace disease. Centrilobular and paraseptal emphysema. Central airways are patent. Pleural space: Small right pleural effusion. Lower neck, lymph nodes, and mediastinum: Stable thyroid nodules. No lymphadenopathy in the supraclavicular, axillary, mediastinal, or hilar regions. Calcified subcarinal and right hilar lymph nodes consistent with remote granulomatous disease. Heart, pericardium, and thoracic vessels: The thoracic aorta and main pulmonary artery are normal in caliber. The cardiac chambers are normal in size. Coronary artery atherosclerotic calcifications are noted, although the study is not optimized for coronary assessment. No pericardial effusion or thickening. Bones and soft tissues: No destructive bone lesion. Degenerative disease of the thoracic spine. Chest wall is unremarkable. Upper abdomen: No abnormality in the imaged upper abdomen. Localizer images: No additional findings. IMPRESSION: 1. Unchanged size of a right upper lobe nodule with cavitations 2. Postoperative changes from a right lower lobectomy. Small right pleural effusion. 3. No new thoracic lymphadenopathy Agency Trainer: [facility] Transcribe Date/Time: Dec 14 2023 1:29P Dictated by : ANNE COUGHLIN MD This examination was interpreted and the report reviewed and electronically signed by: ANNE COUGHLIN MD on Dec 14 2023 1:47PM EST [id number] PROGRESS Observed: 12/09/2023 9:00 AM Status: COMPLETED Source: [facility] HNO ID: [id number] Author: CINDY DICKENS Tech Service: Radiology Author Type: Concrete Polisher Type: Progress Notes Filed: 12/09/2023 09:03 Note Text: Radiology Service Progress Note PATIENT NAME: Stevie Angeles DATE OF SERVICE: December 09, 2023 TIME: 9:03 AM PATIENT IDENTITY VERIFICATION COMPLETED USING TWO (2) IDENTIFIERS: Name and Date of confirmed by patient verbally and Name and Date of confirmed by identification band. FALL SCREENING: Has the patient had 2 falls in the last year or 1 fall with injury or currently using an Ambulatory Assistive Device (Walker, Cane, Wheelchair, Crutches, etc.)? No PATIENT GENDER DATA: Male PATIENT RELEVANT IMPLANT DATA REVIEWED: Yes PATIENT PRESENTS WITH AN IMPLANTABLE OR ATTACHED PAUNCH TRIMMER: No RADIOLOGY DEPARTMENT: CT; Exam(s) Completed: Chest PERIPHERAL IV DATA: Not applicable SIGNED BY: Iza Baez December 09, 2023 9:03 AM CNOVSP Observed: 11/29/2023 2:20 PM Status: COMPLETED Source: [facility] Visit (SP) Office (HEMMED) STEVIE ANGELES ([id number]) 1950 M DEF Date Time Provider Department 11/29/23 2:20 PM KEVIN CANTU During your visit today, we recorded the following information about you: Temperature Pulse Respiration Blood pressure 98.8 degrees 64/minute 12/minute 110/71 Weight 82.1 kg Kevin Cantu MD 11/30/2023 4:07 PM Signed HISTORY OF PRESENT ILLNESS: Stevie Angeles is a 73 year old male Cancer Staging No matching staging information was found for the patient. 05/17/23 CTA chest: Nodular opacification in the right lower lobe with confluent appearance near the hilum 06/19/23 PET/CT: FDG avid right upper lobe lung nodule and medial right lower lobe solid lesion with groundglass extension, concerning for neoplastic process. Mildly prominent mediastinal lymph nodes with mild uptake likely reactive. 06/20/23: Bronchoscopy non-diagnostic of malignancy 08/28/23 CT chest: Further interval enlargement of suspicious masslike opacity in the R lower lobe and mild enlargement of suspicious spiculated and cavitary nodule in the RIGHT upper lobe. 09/19/23 Bronchoscopy confirming SCC of RLL, negative 11 Rl and 11RS nodes *PD-L1 0% 11/15/23 R lower lobectomy with Dr. 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 *5 cm AAA under surveillance with Tea Eckert TREATMENT HISTORY: SCANS: SUBJECTIVE: Feels near his baseline. Some pain at site of VATS ASSESSMENT/PLAN: #NSCLC, squamous histology, synchronous vs T4 (RUL satellite lesion) Patient initally presented with what appeared to be a 8.3cm RLL lesion and 2 cm RUL lesion, unclear if iplsateral lung metastatic disease or synchronus disease. After conferring with Dr. Escobar, it was unclear if there would be any benefit in providing neoadjuvant chemoIO given PD-L1 of 0% vs adjuvant therapy. Patient went directly to surgery where it was found that the large RLL lesion was primarily abscess with a pT1c lesion and no positive lymph nodes. As such, adjuvant chemotherapy is not indicated based off the resected disease. As the patient was not a candidate for a pneumonectomy, the plan for the RUL lesion was possible SBRT. At this juncture, we will restage the RUL lesion with a CT chest and consider presenting to tumor board afterwards. Medical Decision Making: Level: 4 - Moderate Written and verbal health teaching given to patient, patient verbalizes understanding and agrees with treatment plan. PAST MEDICAL HISTORY Diagnosis Date Abdominal aortic aneurysm (HCC) without rupture Elevated PSA Hearing loss HTN (hypertension) Lumbosacral neuritis Malignant neoplasm of prostate (HCC) Other and unspecified hyperlipidemia Smoker Spinal stenosis of lumbar region with neurogenic claudication PAST SURGICAL HISTORY Procedure Laterality Date COLONOSCOPY 05/28/2008 HERNIA REPAIR HX age 20 REMOVAL OF LUNG,LOBECTOMY Right 11/15/2023 Robotic-assisted right lower lobectomy with right lower lobe bronchoplasty closure of airway and mediastinal and hilar lymph node dissection, intercostal and phrenic nerve block FAMILY HISTORY Problem Relation Age of Onset other (high blood pressure [Other]) Mother Diabetes Mother Hearing Loss Mother Prostate Cancer Other Social History Tobacco Use Smoking status: Former Current packs/day: 0.00 Average packs/day: 1 pack/day for 40.0 years (40.0 ttl pk-yrs) Types: Cigarettes Start date: 07/1981 Quit date: 07/2021 Years since quittin.3 Passive exposure: Past Smokeless tobacco: Never Substance Use Topics Alcohol use: Not Currently Alcohol/week: 6.0 standard drinks of alcohol Types: 6 Glasses of wine per week Drug use: No ALLERGIES: ALLERGIES No Known Allergies CURRENT OUTPATIENT MEDICATIONS: [START ON 12/19/2023] lisinopril-hydroCHLOROthiazide (ZESTORETIC) 20-12.5 mg per tablet Take 1 tablet by mouth once daily. Patient should start on December 19, 2023. metoprolol tartrate, short acting, (LOPRESSOR) 25 mg tablet Take 1 tablet by mouth two times a day. For prevention of atrial fibrillation after thoracic surgery, stop after 30 days then resume your normal blood pressure medication guaiFENesin (MUCINEX) 600 mg 12 hr tablet Take 1 tablet by mouth every 12 hours. [START ON 12/19/2023] amLODIPine (NORVASC) 5 mg tablet Take 1 tablet by mouth once daily. Patient should start on December 19, 2023. fluticasone-salmeterol (WIXELA INHUB) 250-50 mcg/dose inhaler Inhale 1 Puff as instructed two times a day. atorvastatin (LIPITOR) 20 mg tablet Take 1 tablet by mouth once daily. gabapentin (NEURONTIN) 300 mg capsule TAKE 2 CAPSULES BY MOUTH 3 TIMES A DAY REVIEW OF SYSTEMS: Review of systems unremarkable except as noted in the HPI. PHYSICAL EXAMINATION: VITAL SIGNS: There were no vitals taken for this visit. Physical Exam Constitutional: General: He is not in acute distress. Appearance: Normal appearance. HENT: Head: Normocephalic and atraumatic. Eyes: Extraocular Movements: Extraocular movements intact. Pulmonary: Effort: Pulmonary effort is normal. No respiratory distress. Skin: Coloration: Skin is not jaundiced. Neurological: General: No focal deficit present. Mental Status: He is alert. Mental status is at baseline. LABS: Latest Ref Rng AND Units 11/19/2023 CBC WBC 3.70 - 11.00 k/uL 7.58 RBC 4.20 - 6.00 m/uL 3.94 Hemoglobin 13.0 - 17.0 g/dL 12.2 Hematocrit 39.0 - 51.0 % 37.1 MCV 80.0 - 100.0 fL 94.2 MCH 26.0 - 34.0 pg 31.0 MCHC 30.5 - 36.0 g/dL 32.9 RDW-CV 11.5 - 15.0 % 13.2 Platelet Count 150 - 400 k/uL 293 MPV 9.0 - 12.7 fL 9.0 Latest Ref Rng AND Units 11/19/2023 CMP Sodium 136 - 144 mmol/L 137 Potassium 3.7 - 5.1 mmol/L 3.3 Chloride 98 - 107 mmol/L 100 CO2 22 - 30 mmol/L 26 Glucose 74 - 99 mg/dL 110 BUN 9 - 24 mg/dL 9 Creatinine 0.73 - 1.22 mg/dL 0.61 EGFR >=60 mL/min/1.73m? 103 Calcium 8.5 - 10.2 mg/dL 8.8 No results found for: TSH Kevin Cantu MD Referring Provider: THAD BELTRAN [[id number]] Allergies As of Date: 11/29/2023 (No Known Allergies) Date Reviewed: 11/29/2023 Reviewed by: Melita Cerrato MA - Fully Assessed Reason for Visit: Follow Up [171] Lung Cancer [562] Primary Visit Diagnosis:Squamous cell carcinoma of lung, unspecified laterality (HCC) [C34.90] [facility](s[facility] [[id number]] Order #: [id number] FUTURE Disposition: Return in about 20 days (around 12/19/2023). Follow-up and Disposition History for Encounter Date Provider Department Center 11/29/2023 [id number], JAMES G*[facility] Prescriptions as of 11/30/2023 - lisinopril-hydroCHLOROthiazide (ZESTORETIC) 20-12.5 mg per tablet Take 1 tablet by mouth once daily. Patient should start on December 19, 2023. - metoprolol tartrate, short acting, (LOPRESSOR) 25 mg tablet Take 1 tablet by mouth two times a day. For prevention of atrial fibrillation after thoracic surgery, stop after 30 days then resume your normal blood pressure medication - guaiFENesin (MUCINEX) 600 mg 12 hr tablet Take 1 tablet by mouth every 12 hours. - amLODIPine (NORVASC) 5 mg tablet Take 1 tablet by mouth once daily. Patient should start on December 19, 2023. - fluticasone-salmeterol (WIXELA INHUB) 250-50 mcg/dose inhaler Inhale 1 Puff as instructed two times a day. - atorvastatin (LIPITOR) 20 mg tablet Take 1 tablet by mouth once daily. 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 Author Type: Physician Type: Progress Notes Filed: 11/30/2023 16:07 Note Text: HISTORY OF PRESENT ILLNESS: Stevie Angeles is a 73 year old male Cancer Staging No matching staging information was found for the patient. 05/17/23 CTA chest: Nodular opacification in the right lower lobe with confluent appearance near the hilum 06/19/23 PET/CT: FDG avid right upper lobe lung nodule and medial right lower lobe solid lesion with groundglass extension, concerning for neoplastic process. Mildly prominent mediastinal lymph nodes with mild uptake likely reactive. 06/20/23: Bronchoscopy non-diagnostic of malignancy 08/28/23 CT chest: Further interval enlargement of suspicious masslike opacity in the R lower lobe and mild enlargement of suspicious spiculated and cavitary nodule in the RIGHT upper lobe. 09/19/23 Bronchoscopy confirming SCC of RLL, negative 11 Rl and 11RS nodes *PD-L1 0% 11/15/23 R lower lobectomy with Dr. 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 *5 cm AAA under surveillance with Tea Eckert TREATMENT HISTORY: SCANS: SUBJECTIVE: Feels near his baseline. Some pain at site of VATS ASSESSMENT/PLAN: #NSCLC, squamous histology, synchronous vs T4 (RUL satellite lesion) Patient initally presented with what appeared to be a 8.3cm RLL lesion and 2 cm RUL lesion, unclear if iplsateral lung metastatic disease or synchronus disease. After conferring with Dr. Escobar, it was unclear if there would be any benefit in providing neoadjuvant chemoIO given PD-L1 of 0% vs adjuvant therapy. Patient went directly to surgery where it was found that the large RLL lesion was primarily abscess with a pT1c lesion and no positive lymph nodes. As such, adjuvant chemotherapy is not indicated based off the resected disease. As the patient was not a candidate for a pneumonectomy, the plan for the RUL lesion was possible SBRT. At this juncture, we will restage the RUL lesion with a CT chest and consider presenting to tumor board afterwards. Medical Decision Making: Level: 4 - Moderate Written and verbal health teaching given to patient, patient verbalizes understanding and agrees with treatment plan. PAST MEDICAL HISTORY Diagnosis Date Abdominal aortic aneurysm (HCC) without rupture Elevated PSA Hearing loss HTN (hypertension) Lumbosacral neuritis Malignant neoplasm of prostate (HCC) Other and unspecified hyperlipidemia Smoker Spinal stenosis of lumbar region with neurogenic claudication PAST SURGICAL HISTORY Procedure Laterality Date COLONOSCOPY 05/28/2008 HERNIA REPAIR HX age 20 REMOVAL OF LUNG,LOBECTOMY Right 11/15/2023 Robotic-assisted right lower lobectomy with right lower lobe bronchoplasty closure of airway and mediastinal and hilar lymph node dissection, intercostal and phrenic nerve block FAMILY HISTORY Problem Relation Age of Onset other (high blood pressure [Other]) Mother Diabetes Mother Hearing Loss Mother Prostate Cancer Other Social History Tobacco Use Smoking status: Former Current packs/day: 0.00 Average packs/day: 1 pack/day for 40.0 years (40.0 ttl pk-yrs) Types: Cigarettes Start date: 07/1981 Quit date: 07/2021 Years since quittin.3 Passive exposure: Past Smokeless tobacco: Never Substance Use Topics Alcohol use: Not Currently Alcohol/week: 6.0 standard drinks of alcohol Types: 6 Glasses of wine per week Drug use: No ALLERGIES: ALLERGIES No Known Allergies CURRENT OUTPATIENT MEDICATIONS: [START ON 12/19/2023] lisinopril-hydroCHLOROthiazide (ZESTORETIC) 20-12.5 mg per tablet Take 1 tablet by mouth once daily. Patient should start on December 19, 2023. metoprolol tartrate, short acting, (LOPRESSOR) 25 mg tablet Take 1 tablet by mouth two times a day. For prevention of atrial fibrillation after thoracic surgery, stop after 30 days then resume your normal blood pressure medication guaiFENesin (MUCINEX) 600 mg 12 hr tablet Take 1 tablet by mouth every 12 hours. [START ON 12/19/2023] amLODIPine (NORVASC) 5 mg tablet Take 1 tablet by mouth once daily. Patient should start on December 19, 2023. fluticasone-salmeterol (WIXELA INHUB) 250-50 mcg/dose inhaler Inhale 1 Puff as instructed two times a day. atorvastatin (LIPITOR) 20 mg tablet Take 1 tablet by mouth once daily. gabapentin (NEURONTIN) 300 mg capsule TAKE 2 CAPSULES BY MOUTH 3 TIMES A DAY REVIEW OF SYSTEMS: Review of systems unremarkable except as noted in the HPI. PHYSICAL EXAMINATION: VITAL SIGNS: There were no vitals taken for this visit. Physical Exam Constitutional: General: He is not in acute distress. Appearance: Normal appearance. HENT: Head: Normocephalic and atraumatic. Eyes: Extraocular Movements: Extraocular movements intact. Pulmonary: Effort: Pulmonary effort is normal. No respiratory distress. Skin: Coloration: Skin is not jaundiced. Neurological: General: No focal deficit present. Mental Status: He is alert. Mental status is at baseline. LABS: Latest Ref Rng AND Units 11/19/2023 CBC WBC 3.70 - 11.00 k/uL 7.58 RBC 4.20 - 6.00 m/uL 3.94 Hemoglobin 13.0 - 17.0 g/dL 12.2 Hematocrit 39.0 - 51.0 % 37.1 MCV 80.0 - 100.0 fL 94.2 MCH 26.0 - 34.0 pg 31.0 MCHC 30.5 - 36.0 g/dL 32.9 RDW-CV 11.5 - 15.0 % 13.2 Platelet Count 150 - 400 k/uL 293 MPV 9.0 - 12.7 fL 9.0 Latest Ref Rng AND Units 11/19/2023 CMP Sodium 136 - 144 mmol/L 137 Potassium 3.7 - 5.1 mmol/L 3.3 Chloride 98 - 107 mmol/L 100 CO2 22 - 30 mmol/L 26 Glucose 74 - 99 mg/dL 110 BUN 9 - 24 mg/dL 9 Creatinine 0.73 - 1.22 mg/dL 0.61 EGFR >=60 mL/min/1.73m? 103 Calcium 8.5 - 10.2 mg/dL 8.8 No results found for: TSH Kevin Cantu MD CNOV Observed: 11/27/2023 11:00 AM Status: COMPLETED Source: [facility] Office Visit (IKE) STEVIE ANGELES ([id number]) 1950 M DEF Date Time Provider Department 11/27/23 11:00 AM ROMINA BEDOLLA During your visit today, we recorded the following information about you: Temperature Pulse Respiration Blood pressure 98.3 degrees 61/minute 14/minute 121/61 Weight Height 80.1 kg 1.702 m Romina Bedolla APRN.PROGRAM SUPPORT ASSISTANT 11/27/2023 3:01 PM Signed [facility] - OUTPATIENT THORACIC SURGERY CLINIC NOTE PT NAME: Stevie Angeles [facility] NO: [id number] THORACIC SURGEON: Paula Escobar M.D. 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 - Extensive post-obstructive changes with acute and organizing bronchopneumonia with suppurative exudate and microabscess formation. - Seven hilar/peribronchial lymph nodes, negative for tumor (0/7). - Vascular margin negative for tumor. B. Lymph node, level 9R, excision: - Negative for tumor (0/1). C. Lymph node, level 8R, excision: - Negative for tumor (0/1). D. Lymph node, level 8R, excision: - Negative for tumor (0/1). Few giant cells. E. Lymph node, level 10R, excision: - Negative for tumor (0/1). F. Lymph node, level 11R, excision: - Negative for tumor (0/1). G. Lung, additional airway, excision: - Keratinizing squamous cell carcinoma. - Bronchial margin negative for tumor Diagnosis Comment A. Selected slides from part A (including the inked margin) were reviewed at the [facility] thoracic pathology consensus conference on 11/23/23. Dr. Fauzia Oseguera, Dr. Alexis Altman, Dr. Fitch and Dr. Romina Bryan were present and concurred with this interpretation. The status of the margins was discussed with Dr. Escobar by email on 11/23/23 and discussed at the consensus conference. Because of the extensive nature of the suppurative process, margin assessment is difficult. G. The final bronchial margin is negative for tumor. Block for additional Biomarkers/Molecular studies A7 Synoptic Report LUNG 8th Edition - Protocol posted: 11/17/2021LUNG: RESECTION - All Specimens SPECIMEN Procedure Lobectomy Specimen Laterality Right TUMOR Tumor Focality Single focus Tumor Site Lower lobe of lung Tumor Size Total Tumor Size (size of entire tumor) Greatest Dimension (Centimeters): 2.5 cm Additional Dimension (Centimeters) 2.5 cm 1.8 cm Histologic Type Invasive squamous cell carcinoma, keratinizing Histologic Grade G2, moderately differentiated Spread Through Air Spaces (ROBIN) Not identified Visceral Pleura Invasion Not identified Direct Invasion of Adjacent Structures Not applicable (no adjacent structures present) Treatment Effect No known presurgical therapy Lymphovascular Invasion Not identified MARGINS Margin Status for Invasive Carcinoma Due to extensive suppuration, it is unclear whether the inked edge represents a true hilar soft tissue or parenchymal margin; discussed with Dr. Escobar on 11/23/23. The bronchial and vascular margins are negative. Margin Status for Non-Invasive Tumor Not applicable REGIONAL LYMPH NODES Lymph Node(s) from Prior Procedures No known prior lymph node sampling performed Regional Lymph Node Status All regional lymph nodes negative for tumor Number of Lymph Nodes Examined 12 Lan Site(s) Examined 8R: Para-esophageal (below patti) 9R: Pulmonary ligament 10R: Hilar 11R: Interlobar Right: hilar/peribronchial PATHOLOGIC STAGE CLASSIFICATION (pTNM, AJCC 8th Edition) Reporting of pT, pN, and (when applicable) pM categories is based on information available to the pathologist at the time the report is issued. As per the AJCC (Chapter 1, 8th Ed.) it is the managing physician?s responsibility to establish the final pathologic stage based upon all pertinent information, including but potentially not limited to this pathology report. pT Category pT1c pN Category pN0 ADDITIONAL FINDINGS Additional Findings Inflammation: Acute and organizing bronchopneumonia Post-obstructive changes REASON FOR VISIT: First post-operative visit HPI: Stevie Angeles is a 73 year old male ex-smoker 40 pack years (quit 2021) with history of prostate cancer and squamous cell skin cancer, who was found to have lung nodules on surveillance of known AAA. CTA chest 05/17/23 revealed nodular opacification in the right lower lobe with confluent appearance near hilum. PET/CT 06/19/23 showed intensive uptake associated with the 1.5 x 2.2 cm RUL lesion (SUV 10.3), medial right lower lobe solid lesion with groundglass extension (SUV 10) and mild uptake with prominent paratracheal node (SUV 2.2). Transbronchial biopsy 06/20/23 non-diagnostic and surveillance CT scan showed further enlargement of known RLL and RUL lesions. Transbronchial biopsy/EBUS repeated 09/19/23, biopsy of RLL lesion showed squamous cell carcinoma (lymph node stations 11RS and 11RI were neg). Case discussed at Tumor Board, decision was for upfront resection with consideration of adjuvant therapy once final pathology identified. On 11/15/23 he underwent Robotic-assisted right lower lobectomy with right lower lobe bronchoplasty closure of airway and mediastinal and hilar lymph node dissection, intercostal and phrenic nerve block by Dr Escobar. Noted an abscess. He was discharged 11/19/23. PHYSICAL EXAM: VITAL SIGNS: BP 121/61 Pulse 61 Temp 36.8 ?C (98.3 ?F) (Oral) Resp 14 Ht 170.2 cm (5' 7) Wt 80.1 kg (176 lb 8 oz) SpO2 95% BMI 27.64 kg/m? Room air Incision location: Right Thoracoport sites and Right Old chest tube sites Incision Assessment: Well approximated and no drainage, swelling, erythema or warmth Drain/Tubes: N/A GENERAL: well appearing, alert, no acute distress, well-hydrated, well nourished HEENT: normocephalic, midline, anicteric sclera. LUNGS: clear to auscultation, no wheezing or rhonchi HEART: RRR without murmur ABDOMEN: Soft, non-tender, non distended. No masses EXTREMITIES: No clubbing, cyanosis or edema. MUSCULOSKELETAL: Muscular strength intact. SKIN: turgor normal, no suspicious rashes or lesions NEURO: Gait normal. Sensation grossly intact. IMAGING/TESTS: CXR 11/27/2023: PENDING INTERVAL HISTORY: tSevie Angeles returns for first post op visit. He has been doing well. Hde has had adequate pain management with the use of Tylenol. He stopped Oxycodone 2 days ago..He denies any SOB, fevers, chills. No c/o nausea or vomiting.He has been tolerating diet and has been moving his bowels regularly. Incisions are healing well and sutures are removed. We have discussed increasing aerobic activity daily, as well as maintaining weight restriction of 5-10 lbs for the first month after surgery. We have also discussed no driving while on narcotics. CXR shows opacification in right apex, small right base effusion. Pathology has been reviewed, which showed T1cN0 squamous cell carcinoma of the RLL of lung.He is noted to have a PET avid RUL nodule as well. Will arrange for return visit with his oncologist Dr Cantu to discuss survivorship planning. He will return in 6 weeks with a CXR. IMPRESSION: 73 year old male s/p Robotic-assisted right lower lobectomy with right lower lobe bronchoplasty closure of airway and mediastinal and hilar lymph node dissection, intercostal and phrenic nerve block 11/15/[address] Escobar for T1cN0 squamous cell carcinoma of the RLL of lung, with PET avid RUL nodule noted PLAN: - return in 6 weeks with CXR - oncology management with Dr Cantu, will arrange follow up VAIBHAV Santizo Carol, APRN.CNP 11/27/2023 10:55 AM Signed -Shower regularly to keep the incisions clean and inspect for signs of infection. -No water submersion/baths until all incisions are fully healed, typically this takes 6 weeks. -Walking is encouraged, this helps reduce swelling and lowers the chance of blood clots. - Continue to use your horn or blue pickle hourly while awake if possible to optimize lung expansion -No lifting/pushing/pulling greater than 5 lbs for 4 weeks after surgery. Do not perform typing section chief such as laundry and vacuuming. Do not perform yard work or gardening. -Okay for tylenol alternating with ibuprofen for pain control (do not exceed 4 g tylenol in a 24 hour period, okay for ibuprofen 600 mg every 6 hours as needed for pain). -Okay for driving if you're not taking any narcotic pain medication for at least 2 days and you feel you can safely maneuver a motor vehicle. Referring Provider: FAY CHILDRESS [[id number]] Allergies As of Date: 11/27/2023 (No Known Allergies) Date Reviewed: 11/27/2023 Reviewed by: Geni James MA - Fully Assessed Reason for Visit: Post-Op Visit [1236] Primary Visit Diagnosis:Malignant neoplasm of lower lobe of right lung (HCC) [C34.31] Other Visit Diagnosis:Lung nodule [R91.1] Order(s):XR CHEST 2V FRONTAL/LAT [[id number]] Order #: [id number] FUTURE Prescriptions as of 11/27/2023 - lisinopril-hydroCHLOROthiazide (ZESTORETIC) 20-12.5 mg per tablet Take 1 tablet by mouth once daily. Patient should start on December 19, 2023. - metoprolol tartrate, short acting, (LOPRESSOR) 25 mg tablet Take 1 tablet by mouth two times a day. For prevention of atrial fibrillation after thoracic surgery, stop after 30 days then resume your normal blood pressure medication - guaiFENesin (MUCINEX) 600 mg 12 hr tablet Take 1 tablet by mouth every 12 hours. - amLODIPine (NORVASC) 5 mg tablet Take 1 tablet by mouth once daily. Patient should start on December 19, 2023. - fluticasone-salmeterol (WIXELA INHUB) 250-50 mcg/dose inhaler Inhale 1 Puff as instructed two times a day. - atorvastatin (LIPITOR) 20 mg tablet Take 1 tablet by mouth once daily. 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 -No water submersion/baths until all incisions are fully healed, typically this takes 6 weeks. -Walking is encouraged, this helps reduce swelling and lowers the chance of blood clots. - Continue to use your horn or blue pickle hourly while awake if possible to optimize lung expansion -No lifting/pushing/pulling greater than 5 lbs for 4 weeks after surgery. Do not perform typing section chief such as laundry and vacuuming. Do not perform yard work or gardening. -Okay for tylenol alternating with ibuprofen for pain control (do not exceed 4 g tylenol in a 24 hour period, okay for ibuprofen 600 mg every 6 hours as needed for pain). -Okay for driving if you're not taking any narcotic pain medication for at least 2 days and you feel you can safely maneuver a motor vehicle. Disposition: Return in about 6 weeks (around 01/08/2024). Follow-up and Disposition History for Encounter Date Provider Department Center 11/27/2023 [id number], [facility] Encounter Status:Closed by ROMINA BEDOLLA on 11/27/23 PROGRESS Observed: 11/27/2023 10:33 AM Status: COMPLETED [facility] HNO ID: [id number] Author: ROMINA BEDOLLA APRN.PROGRAM SUPPORT ASSISTANT Service: ? Author Type: Nurse Practitioner Type: Progress Notes Filed: 11/27/2023 15:01 Note Text: [facility] - OUTPATIENT THORACIC SURGERY CLINIC NOTE PT NAME: Stevie Richmond [facility] NO: [id number] THORACIC SURGEON: Paula Escobar M.D. 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 - Extensive post-obstructive changes with acute and organizing bronchopneumonia with suppurative exudate and microabscess formation. - Seven hilar/peribronchial lymph nodes, negative for tumor (0/7). - Vascular margin negative for tumor. B. Lymph node, level 9R, excision: - Negative for tumor (0/1). C. Lymph node, level 8R, excision: - Negative for tumor (0/1). D. Lymph node, level 8R, excision: - Negative for tumor (0/1). Few giant cells. E. Lymph node, level 10R, excision: - Negative for tumor (0/1). F. Lymph node, level 11R, excision: - Negative for tumor (0/1). G. Lung, additional airway, excision: - Keratinizing squamous cell carcinoma. - Bronchial margin negative for tumor Diagnosis Comment A. Selected slides from part A (including the inked margin) were reviewed at the [facility] thoracic pathology consensus conference on 11/23/23. Dr. Fauzia Oseguera, Dr. Alexis Altman, Dr. Fitch and Dr. Romina Bryan were present and concurred with this interpretation. The status of the margins was discussed with Dr. Escobar by email on 11/23/23 and discussed at the consensus conference. Because of the extensive nature of the suppurative process, margin assessment is difficult. G. The final bronchial margin is negative for tumor. Block for additional Biomarkers/Molecular studies A7 Synoptic Report LUNG 8th Edition - Protocol posted: 11/17/2021LUNG: RESECTION - All Specimens SPECIMEN Procedure Lobectomy Specimen Laterality Right TUMOR Tumor Focality Single focus Tumor Site Lower lobe of lung Tumor Size Total Tumor Size (size of entire tumor) Greatest Dimension (Centimeters): 2.5 cm Additional Dimension (Centimeters) 2.5 cm 1.8 cm Histologic Type Invasive squamous cell carcinoma, keratinizing Histologic Grade G2, moderately differentiated Spread Through Air Spaces (ROBIN) Not identified Visceral Pleura Invasion Not identified Direct Invasion of Adjacent Structures Not applicable (no adjacent structures present) Treatment Effect No known presurgical therapy Lymphovascular Invasion Not identified MARGINS Margin Status for Invasive Carcinoma Due to extensive suppuration, it is unclear whether the inked edge represents a true hilar soft tissue or parenchymal margin; discussed with Dr. Escobar on 11/23/23. The bronchial and vascular margins are negative. Margin Status for Non-Invasive Tumor Not applicable REGIONAL LYMPH NODES Lymph Node(s) from Prior Procedures No known prior lymph node sampling performed Regional Lymph Node Status All regional lymph nodes negative for tumor Number of Lymph Nodes Examined 12 Lan Site(s) Examined 8R: Para-esophageal (below patti) 9R: Pulmonary ligament 10R: Hilar 11R: Interlobar Right: hilar/peribronchial PATHOLOGIC STAGE CLASSIFICATION (pTNM, AJCC 8th Edition) Reporting of pT, pN, and (when applicable) pM categories is based on information available to the pathologist at the time the report is issued. As per the AJCC (Chapter 1, 8th Ed.) it is the managing physician?s responsibility to establish the final pathologic stage based upon all pertinent information, including but potentially not limited to this pathology report. pT Category pT1c pN Category pN0 ADDITIONAL FINDINGS Additional Findings Inflammation: Acute and organizing bronchopneumonia Post-obstructive changes REASON FOR VISIT: First post-operative visit HPI: Stevie Angeles is a 73 year old male ex-smoker 40 pack years (quit 2021) with history of prostate cancer and squamous cell skin cancer, who was found to have lung nodules on surveillance of known AAA. CTA chest 05/17/23 revealed nodular opacification in the right lower lobe with confluent appearance near hilum. PET/CT 06/19/23 showed intensive uptake associated with the 1.5 x 2.2 cm RUL lesion (SUV 10.3), medial right lower lobe solid lesion with groundglass extension (SUV 10) and mild uptake with prominent paratracheal node (SUV 2.2). Transbronchial biopsy 06/20/23 non-diagnostic and surveillance CT scan showed further enlargement of known RLL and RUL lesions. Transbronchial biopsy/EBUS repeated 09/19/23, biopsy of RLL lesion showed squamous cell carcinoma (lymph node stations 11RS and 11RI were neg). Case discussed at Tumor Board, decision was for upfront resection with consideration of adjuvant therapy once final pathology identified. On 11/15/23 he underwent Robotic-assisted right lower lobectomy with right lower lobe bronchoplasty closure of airway and mediastinal and hilar lymph node dissection, intercostal and phrenic nerve block by Dr Escobar. Noted an abscess. He was discharged 11/19/23. PHYSICAL EXAM: VITAL SIGNS: BP 121/61 Pulse 61 Temp 36.8 ?C (98.3 ?F) (Oral) Resp 14 Ht 170.2 cm (5' 7) Wt 80.1 kg (176 lb 8 oz) SpO2 95% BMI 27.64 kg/m? Room air Incision location: Right Thoracoport sites and Right Old chest tube sites Incision Assessment: Well approximated and no drainage, swelling, erythema or warmth Drain/Tubes: N/A GENERAL: well appearing, alert, no acute distress, well-hydrated, well nourished HEENT: normocephalic, midline, anicteric sclera. LUNGS: clear to auscultation, no wheezing or rhonchi HEART: RRR without murmur ABDOMEN: Soft, non-tender, non distended. No masses EXTREMITIES: No clubbing, cyanosis or edema. MUSCULOSKELETAL: Muscular strength intact. SKIN: turgor normal, no suspicious rashes or lesions NEURO: Gait normal. Sensation grossly intact. IMAGING/TESTS: CXR 11/27/2023: PENDING INTERVAL HISTORY: Stevie Angeles returns for first post op visit. He has been doing well. Hde has had adequate pain management with the use of Tylenol. He stopped Oxycodone 2 days ago..He denies any SOB, fevers, chills. No c/o nausea or vomiting.He has been tolerating diet and has been moving his bowels regularly. Incisions are healing well and sutures are removed. We have discussed increasing aerobic activity daily, as well as maintaining weight restriction of 5-10 lbs for the first month after surgery. We have also discussed no driving while on narcotics. CXR shows opacification in right apex, small right base effusion. Pathology has been reviewed, which showed T1cN0 squamous cell carcinoma of the RLL of lung.He is noted to have a PET avid RUL nodule as well. Will arrange for return visit with his oncologist Dr Cantu to discuss survivorship planning. He will return in 6 weeks with a CXR. IMPRESSION: 73 year old male s/p Robotic-assisted right lower lobectomy with right lower lobe bronchoplasty closure of airway and mediastinal and hilar lymph node dissection, intercostal and phrenic nerve block 11/15/[address] Escobar for T1cN0 squamous cell carcinoma of the RLL of lung, with PET avid RUL nodule noted PLAN: - return in 6 weeks with CXR - oncology management with Dr Cantu, will arrange follow up Romina Bedolla APRN.PROGRAM SUPPORT ASSISTANT PROGRESS Observed: 11/27/2023 10:30 AM Status: COMPLETED Source: [facility] HNO ID: [id number] Author: JENNIFER MERCADO RT(Harry) Service: Radiology Author Type: Technologist Type: Progress Notes Filed: 11/27/2023 10:24 Note Text: Radiology Service Progress Note PATIENT NAME: Stevie Angeles DATE OF SERVICE: November 27, 2023 TIME: 10:22 AM PATIENT IDENTITY VERIFICATION COMPLETED USING TWO (2) IDENTIFIERS: Name and Date of confirmed by patient verbally. FALL SCREENING: Has the patient had 2 falls in the last year or 1 fall with injury or currently using an Ambulatory Assistive Device (Walker, Cane, Wheelchair, Crutches, etc.)? No PATIENT GENDER DATA: Male PATIENT RELEVANT IMPLANT DATA REVIEWED: Not Applicable PATIENT PRESENTS WITH AN IMPLANTABLE OR ATTACHED PAUNCH TRIMMER: No RADIOLOGY DEPARTMENT: General X-ray: Exam(s) Completed: Chest X-Ray PERIPHERAL IV DATA: Not applicable SIGNED BY: RT Alexandra(Harry) November 27, 2023 10:22 AM XR CHEST 2V FRONTAL/LAT Observed: 2023 10:15 AM Status: F Source: [facility] * * *Final Report* * * DATE OF EXAM: Nov 27 2023 10:15AM JIX [id number] - XR CHEST 2V FRONTAL/LAT / PROCEDURE REASON: multiple diagnoses * * * * Physician Interpretation * * * * EXAMINATION: CHEST RADIOGRAPH (2 VIEW FRONTAL and LATERAL) CLINICAL HISTORY: Malignant neoplasm of lower lobe of right lung (HCC) Abscess of lower lobe of right lung without pneumonia (HCC) MQ: [id number] EXAM DATE/TIME: 11/27/2023 10:15 AM RESULT: COMPARISON: Chest radiograph(s) dated 11/19/2023 RESULTS: Lines, tubes, and devices: Interval removal of right-sided chest tube. Lungs and pleura: Patient is status post RIGHT lung surgery, probable lobectomy. There is a small loculated right-sided pleural effusion. Interval resolution of previously noted right-sided pneumothorax. There is patchy atelectasis in the RIGHT lung base. A calcified granuloma is identified in the RIGHT lung base. Near-complete resolution of previously noted left-sided pleural effusion and adjacent atelectasis. Cardiomediastinal silhouette: The cardiomediastinal silhouette is stable since the prior exam. There are atherosclerotic calcifications in the aortic arch. Other: Interval resolution of subcutaneous emphysema in bilateral lower neck. Interval improvement of subcutaneous emphysema in the RIGHT chest wall. Endplate degenerative changes are present in the thoracic spine. IMPRESSION: See result Agency Trainer: IMMANUEL Transcribe Date/Time: Nov 27 2023 2:01P Dictated by : ALIYA BARRIENTOS MD This examination was interpreted and the report reviewed and electronically signed by: ALIYA BARRIENTOS MD on Nov 27 2023 2:14PM EST [id number] ALLERGIES DATE TYPE / CODE NAME / CODE REACTION SEVERITY SOURCE Drug Class/[id number](SNO MED CT) NO KNOWN ALLERGIES [facility] ENCOUNTERS ADMIT/DISCHARGE ACCOUNT NUMBER ADMITTING ENCOUNTER CLASS LOCATION SOURCE 11/22/2024/11/23/19 [id number] [facility] 11/21/2024 [id number] [place] [facility] 11/19/2024/11/20/19 [id number] [facility] Hospital[facility] ing:BARBIE [facility] 11/19/2024/11/20/19 [id number] [facility] Hospital[facility] ing:BARBIE [facility] 10/29/2024/10/30/19 [id number] SIDDHARTH CARTER Ambulatory [facility] HospitalBuild ing:[id number]: [id number]: [id number] [facility] 10/24/2024/11/06/19 25 [id number] LORAINE MUÑZO [id number] 10/24/2024/10/25/19 [id number] Ambulatory [facility] HospitalBuild ing:FAVC [facility] 09/11/2024/09/12/19 [id number] Ambulatory [facility] ing:BARBIE [facility] 08/23/2024/08/24/19 [id number] Ambulatory [facility] Hospital[facility] ing:RAST [facility] 08/20/2024/08/21/19 [id number] Ambulatory [facility] HospitalBuild ing:THOR [facility] 08/19/2024/08/20/19 [id number] [facility]RGMDR [facility] 07/08/2024/07/09/19 [id number] Ambulatory [facility] Hospital[facility] ing:THOR [facility] 2024 [id number] Ambulatory [facility] HospitalBuild ing:XRJ1 [facility] 07/01/2024 [id number] Ambulatory [facility] Hospital[facility] ing:XRJ1 [facility] 07/01/2024/07/02/19 [id number] Ambulatory [facility] Hospital[facility] ing:THOR [facility] 07/01/2024 [id number] Ambulatory [facility] Hospital[facility] ing:XRJ1 [facility] 06/19/2024/06/24/19 [id number] DL, SUDISH Inpatient Encounter [facility] HospitalBuild ing:[id number]: [id number]: [id number] [facility] 06/18/2024/06/19/19 [id number] Ambulatory [facility] HospitalBuild ing:MDVUmberto [facility] 06/18/2024/06/19/19 [id number] Ambulatory [facility] Hospital[facility] ing:YA [facility] 06/13/2024/06/14/19 [id number] Ambulatory [facility] Hospital[facility] ing:MDPU [facility] 06/07/2024/06/08/19 [id number] Ambulatory [facility] HospitalBuild ing:CART [facility] 06/07/2024/06/08/19 25 [id number] Ambulatory [facility] Hospital[facility] ing:THOR [facility] 06/07/2024/06/08/19 25 [id number] Ambulatory [facility] Hospital[facility] ing:XRJ1 [facility] 06/07/2024/06/08/19 25 [id number] Ambulatory [facility] HospitalBuild ing:LB16 [facility] 05/20/2024/05/21/19 25 [id number] Ambulatory [facility] HospitalBuild ing:RAST [facility] 05/17/2024/05/18/19 25 [id number] Ambulatory [facility] HospitalBuild ing:THOR [facility] 05/17/2024/05/18/19 25 [id number] Ambulatory [facility] HospitalBuild ing:XRJ1 [facility] 05/10/2024/05/13/19 25 [id number] DL, PAULA Inpatient Encounter [facility] HospitalBuild ing:[id number]: [id number]: [id number] [facility] 05/09/2024/05/10/19 [id number] Ambulatory [facility] ing:[facility] 05/08/2024 [id number] [place] [facility] 05/08/2024/05/09/19 25 [id number] Ambulatory [facility] HospitalBuild ing:MDMB [facility] 05/08/2024/05/09/19 25 [id number] Ambulatory [facility] Hospital[facility] ing:MDMB [facility] 05/07/2024/05/08/19 25 [id number] [place] [facility] 04/25/2024/04/25/19 25 [id number] [facility] [facility] 02/29/2024/02/28/19 25 [id number] Ambulatory [facility] HospitalBuild ing:RASKhushi [facility] 02/01/2024/02/01/20 24 [id number] Ambulatory [facility] HospitalBuild ing:STRG [facility] 02/01/2024/02/01/20 24 [id number] Ambulatory [facility] HospitalBuild ing:RAST [facility] 02/01/2024/02/01/20 24 [id number] Ambulatory [facility] HospitalBuild ing:STTR [facility] 01/31/2024/01/31/20 24 [id number] [place] [facility]: EDBed: [address] [place] [address] 01/16/2024/01/16/20 24 [id number] Ambulatory [facility] HospitalBuild ing:RAST [facility] 01/11/2024/01/11/20 24 [id number] [facility] 01/08/2024/01/08/20 24 [id number] Ambulatory [facility] HospitalBuild ing:THOR [facility] 01/08/2024/01/08/20 24 [id number] Ambulatory [facility] HospitalBuild ing:XRJ1 [facility] 01/04/2024/01/04/20 24 [id number] [facility] [place] [facility]/04[facility]/01/04/20 24 [id number] Ambulatory [facility] HospitalBuild ing:URMD [facility] 12/19/2023/12/19/19 24 [id number] Ambulatory [facility] HospitalBuild ing:YA [facility] 12/19/2023/12/19/19 24 [id number] Ambulatory [facility] HospitalBuild ing:JT [facility] 12/19/2023/12/19/19 24 [id number] Ambulatory [facility] HospitalBuild ing:BARBIE [facility] 12/09/2023 [id number] [facility] [place] [facility]/29[facility]23/11/29/19 24 [id number] Ambulatory [facility] HospitalBuild ing:BARBIE [facility] 11/27/2023/11/27/19 24 [id number] Ambulatory [facility] HospitalBuild ing:THOR [facility] 11/27/2023/11/27/19 [id number] [facility] PAYERS ENCOUNTER GUARANTOR PAYER SUBSCRIBER SOURCE 11/22/2024 Primary Insurance:[employer] MEDICARE PPOPolicy Number: [id number] Date:6517-81-23Wdxs Name:Margie ROJASHerbert: [id number] [address] [place] [address] [place] [address] 11/21/2024 Primary Insurance:[employer] MEDICARE PPOPolicy Number: [id number] Date:0459-81-34Ltgk Name:Margie ROJASHerbert: [id number] [address] JIANG [place], [address] 11/19/2024 Primary Insurance:[employer] MEDICARE PPOPolicy Number: [id number] Date:8129-59-54Eizy Name:Margie YE ADEELGILLESRUTH: [id number] [address] [place], [address] 11/19/2024 Primary Insurance:[employer] MEDICARE PPOPolicy Number: [id number] Date:5355-60-53Dyln Name:Margie ROJASHerbert: [id number] [address] [place], [place] [address] [place] [address] 10/29/2024 Primary Insurance:[employer] MEDICARE PPOPolicy Number: [id number] Date:1880-49-97Anbb Name:Margie ROJASHerbert: [id number] [address] MEJIA[address] [place], [address] 10/24/2024 Primary Insurance:[employer] MEDICARE PPOPolicy Number: [id number] Date:5214-32-06Kwto Name:Margie ROJASHerbert: [id number] [address] JIANG [place], [address] 10/24/2024 Primary Insurance:[employer] MEDICARE PPOPolicy Number: [id number] Date:1083-18-38Myiz Name:Margie SINGH: [id number] [address] [place] [place] [address] [place] [address] 09/11/2024 Primary Insurance:[employer] MEDICARE PPOPolicy Number: [id number] Date:2660-85-69Owce Name:Margie SINGH: [id number] [address] [place] [place] [address] [place] [address] 08/23/2024 Primary Insurance:[employer] MEDICARE PPOPolicy Number: [id number] Date:4547-18-37Rikg Name:Margie ROJASHerbert: [id number] [address] [place], [place] [address] [place] [address] 08/20/2024 Primary Insurance:[employer] MEDICARE PPOPolicy Number: [id number] Date:3702-27-49Gmdh Name:Margie ANGELESRUTH: [id number] [address] [place] [place] [address] [place] [address] 08/19/2024 Primary Insurance:[employer] MEDICARE PPOPolicy Number: [id number] Date:7105-86-44Ufhh Name:Margie ROJASHerbert: [id number] [address] [place] [address] [place] [address] 2024 Primary Insurance:[employer] MEDICARE PPOPolicy Number: [id number] Date:5513-46-27Mysu Name:Margie ROJASHerbert: [id number] [address] [place] [place] [address] [place] [address] 2024 Primary Insurance:[employer] MEDICARE PPOPolicy Number: [id number] Date:7428-61-62Wzbj Name:Margie ROJASHerbert: [id number] [address] [place], [place] [address] [place] [address] 07/01/2024 Primary Insurance:[employer] MEDICARE PPOPolicy Number: [id number] Date:8911-63-98Nusm Name:Margie ANGELESRUTH: [id number] [place] [address] [facility] 07/01/2024 Primary Insurance:[employer] MEDICARE PPOPolicy Number: [id number] Date:8619-47-44Tgmk Name:Margie SINGH: [id number] [address] [place] [address] [place] [address] 07/01/2024 Primary Insurance:[employer] MEDICARE PPOPolicy Number: [id number] Date:6156-04-20Wmpu Name:Margie ROJASHerbert: [id number] [address] [place], [place] [address] [place] [address] 06/19/2024 Primary Insurance:[employer] MEDICARE PPOPolicy Number: [id number] Date:5805-89-14Vxut Name:Margie ANGELESRUTH: [id number] [address] [place], [place] [address] [place] [address] 06/18/2024 Primary Insurance:[employer] MEDICARE PPOPolicy Number: [id number] Date:0930-84-24Ijay Name:Margie ANGELESRUTH: [id number] [address] [place] [address] [place] [address] 06/18/2024 Primary Insurance:[employer] MEDICARE PPOPolicy Number: [id number] Date:0467-54-41Cuat Name:Margie ROJASHerbert: [id number] [address] [place], [place] [address] [place] [address] 06/13/2024 Primary Insurance:[employer] MEDICARE PPOPolicy Number: [id number] Date:6309-53-09Cmbm Name:Margie ANGELESRUTH: [id number] [address] [place], [place] [address] [place] [address] 06/07/2024 Primary Insurance:[employer] MEDICARE PPOPolicy Number: [id number] Date:7384-88-37Nqum Name:Margie ANGELESRUTH: [id number] [address] [place] [address] [place] [address] 06/07/2024 Primary Insurance:[employer] MEDICARE PPOPolicy Number: [id number] Date:3181-15-85Gdip Name:Margie DENISLAMONT: [id number] [address] 06/07/2024 Primary Insurance:[employer] MEDICARE PPOPolicy Number: [id number] Date:6853-55-43Khbk Name:Margie YE FRANCISCO: [id number] [facility], [address] 06/07/2024 Primary Insurance:[employer] MEDICARE PPOPolicy Number: [id number] Date:5734-11-54Pdhb Name:Margie YE FRANCISCO: [id number] [address] 05/20/2024 Primary Insurance:[employer] MEDICARE PPOPolicy Number: [id number] Date:9635-10-77Dkkp Name:Margie YE FRANCISCO: [id number] [address] 05/17/2024 Primary Insurance:[employer] MEDICARE PPOPolicy Number: [id number] Date:1890-69-60Drop Name:Margie YE FRANCISCO: [id number] [address] 05/17/2024 Primary Insurance:[employer] MEDICARE PPOPolicy Number: [id number] Date:9315-67-65Pjmu Name:Margie YE FRANCISCO: [id number] [address] 05/10/2024 Primary Insurance:[employer] MEDICARE PPOPolicy Number: [id number] Date:3124-89-41Jnri Name:Margie YE FRANCISCO: [id number] [address] 05/09/2024 Primary Insurance:[employer] MEDICARE PPOPolicy Number: [id number] Date:3567-46-68Zlkq Name:Margie ROJASHerbert: [id number] [address] [place], [place] [address] [place] [address] 05/08/2024 Primary Insurance:HU[employer] MEDICARE PPOPolicy Number: [id number] Date:2281-74-67Gggs Name:Margie SINGH: [id number] [address] [place], [address] 05/08/2024 Primary Insurance:[employer] MEDICARE PPOPolicy Number: [id number] Date:9045-61-53Eemw Name:Margie ROJASHerbert: [id number] [facility], [address] 05/08/2024 Primary Insurance:[employer] MEDICARE PPOPolicy Number: [id number] Date:7369-60-75Myks Name:Margie ROJASHerbert: [id number] [facility], [address] 05/07/2024 Primary Insurance:[employer] MEDICARE PPOPolicy Number: [id number] Date:8641-37-54Fcex Name:Margie ROJASHerbert: [id number] [facility], [address] 04/25/2024 Primary Insurance:[employer] MEDICARE PPOPolicy Number: [id number] Date:2736-58-23Ggss Name:Margie ROJASHerbert: [id number] [facility], [address] 02/29/2024 Primary Insurance:[employer] MEDICARE PPOPolicy Number: [id number] Date:3281-59-97Pysg Name:Margie ROJASHerbert: [id number] [facility], [address] 02/01/2024 Primary Insurance:[employer] MEDICARE PPOPolicy Number: [id number] Date:3488-13-13Qqli Name:Margie ROJASHerbert: [id number] [facility], [address] 02/01/2024 Primary Insurance:[employer] MEDICARE PPOPolicy Number: [id number] Date:8744-57-00Tuok Name:Margie YE FRANCISCO: [id number] [facility], [place] [address] [place] [address] 02/01/2024 Primary Insurance:[employer] MEDICARE PPOPolicy Number: [id number] Date:0397-79-28Grwf Name:Margie YE FRANCISCO: [id number] [facility], [address] 01/31/2024 Primary Insurance:HU[employer] MEDICARE PPOPolicy Number: [id number] Date:7211-14-94Juxc Name:Margie YE FRANCISCO: [id number] [facility] 01/16/2024 Primary Insurance:HU[employer] MEDICARE PPOPolicy Number: [id number] Date:1756-07-59Mtps Name:Margie YE FRANCISCO: [id number] [address] 01/11/2024 Primary Insurance:[employer] MEDICARE PPOPolicy Number: [id number] Date:1718-44-21Iwdb Name:Margie YE FRANCISCO: [id number] [facility], [address] 01/08/2024 Primary Insurance:[employer] MEDICARE PPOPolicy Number: [id number] Date:2337-40-19Teuo Name:Margie YE FRANCISCO: [id number] [facility], [address] 01/08/2024 Primary Insurance:[employer] MEDICARE PPOPolicy Number: [id number] Date:6101-09-80Oquj Name:Margie YE FRANCISCO: [id number] [address] 01/04/2024 Primary Insurance:HU[employer] MEDICARE PPOPolicy Number: [id number] Date:8215-14-98Uasf Name:N STEVIE ANGELESRUTH: [id number] [address] [place], [address] 01/04/2024 Primary Insurance:[employer]NA MEDICARE PPOPolicy Number: [id number] Date:7555-28-21Fmnc Name:Margie SINGH: [id number] [address] 12/19/2023 Primary Insurance:HU[employer] MEDICARE PPOPolicy Number: [id number] Date:0028-86-95Mcaz Name:Margie ROJASHerbert: [id number] [facility], [address] 12/19/2023 Primary Insurance:[employer] MEDICARE PPOPolicy Number: [id number] Date:1703-89-84Xxwy Name:Margie YE ADEELGILLESRUTH: [id number] [address] [place], [address] 12/19/2023 Primary Insurance:[employer] MEDICARE PPOPolicy Number: [id number] Date:0348-22-23Jyne Name:Margie ROJASHerbert: [id number] [facility], [address] 12/09/2023 Primary Insurance:[employer] MEDICARE PPOPolicy Number: [id number] Date:9123-69-46Afbe Name:Margie ANGELESRUTH: [id number] [facility], [address] 11/29/2023 Primary Insurance:[employer] MEDICARE PPOPolicy Number: [id number] Date:0487-31-32Mvoz Name:Margie ANGELESRUTH: [id number] [facility], [address] 11/27/2023 Primary Insurance:[employer] MEDICARE PPOPolicy Number: [id number] Date:0491-32-45Fgqu Name:Margie ANGELESRUTH: [id number] [address] 11/27/2023 Primary Insurance:[employer] MEDICARE PPOPolicy Number: [id number] Date:0632-21-41Zqwo Name:Margie SINGH: [id number] [place] [address] [facility]
--- OUTSIDE RECORDS SUMMARY | 2024-11-22 09:41 | XMS RPT_ITS ---
Author Name Auto Generated Organization OHIP Care Team Providers Care Eyeglass Frame Truer Name Role Phone ELIAS GOSS Attending Unavailable [...] Care Unavailabl e MALIA EGAN Attending Unavailable TEA ECKERT Referring Unavail able [...] GRABENSTETTER, PRAFUL F Primary Care Unavailabl e ORMINA BEDOLLA Attending Unavailable GRADIGNAER, PRAFUL F Primary [...] DATE TYPE CONDITION / CODE ATTENDING STATUS [facility] 11/22/2024 [facility] / UNK(Unknown[facility] Prostate cancer (HCC) / C61(ICD-10) ELIAS CHARLES [facility] 11/19/2024 Active Squamous cell ca rcinoma of lung, unspecified laterality (HCC) / C34.90(ICD-10) ELIAS CHARLES [facility] 11/19/2024 Active Normocytic anemi a / D64.9(ICD-10) ELIAS CHARLES [facility] 10/29/2024 Active Lung mass / R91.8(ICD-10) SIDDHARTH CARTER [facility] 10/24/2024 Active Typical atrial f lutter (HCC) / I48.3(ICD-10) PATRICIA SLOAN [facility] 10/24/2024 Active Cavitary lesion of lung / J98.4(ICD-10) [facility] 10/24/2024 Active Acute cough / R05.1(ICD-10) NATHALIA MATTCHRISTO [facility] 05/11/2024 Active Mixed hyperlipid emia / E78.2(ICD-10) PRAFUL SU F [facility] 10/24/2024 Active Essential hypert ension / I10(ICD-10) PRAFUL SU F [facility] 10/24/2024 Active 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 (HCC) / C34.31(ICD-10) PRAFUL SU F [facility] 10/24/2024 Active Tachycardia / R00.0(ICD-10) PRAFUL SU [facility] 08/20/2024 Active Neoplasm of lung / D49.1(ICD-10) ROMINA BEDOLLA [facility] 2024 Active Cancer of overla pping sites of right lung (HCC) / C34.81(ICD-10) ROMINA BEDOLLA [facility] 05/10/2024 Active Other pneumothor ax / J93.83(ICD-10) NA [facility] 06/19/2024 Active Bronchopleural f istula (HCC) / J86.0(ICD-10) NA [facility] 07/01/2024 Active Constipation due to opioid therapy / K59.03(ICD-10) ANASTASIIA BUENROSTRO [facility] [place] 07/01/2024 Active Constipation due to opioid therapy / T40.2X5A(ICD-10) ANASTASIIA BUENROSTRO [facility] [place] 06/19/2024 Active Postoperative pa in / G89.18(ICD-10) PAULA ESCOBAR [facility] 11/17/2023 Active Infrarenal abdom inal aortic aneurysm (AAA) without rupture / I71.43(ICD-10) MALIA EGAN [facility] 11/17/2023 Active Paroxysmal atria l fibrillation (HCC) / I48.0(ICD-10) THAD BELTRAN [facility] 06/13/2024 Active Centrilobular em physema (HCC) / J43.2(ICD-10) STUART BELTRANTH [facility] 06/13/2024 Active History of prost ate cancer / Z85.46(ICD-10) THAD BELTRAN [facility] 06/13/2024 Active Former smoker / Z87.891(ICD-10) THAD BELTRAN [facility] 06/07/2024 Active Encounter for pr eoperative anesthesiology assessment for thoracic surgery / Z01.818(ICD-10) NA [facility] 06/07/2024 Active Hydropneumothora x / J94.8(ICD-10) NA [facility] 06/07/2024 Active Pre-procedure la b exam / Z01.812(ICD-10) NA [facility] 05/20/2024 Active Cancer of bronch us of right upper lobe (HCC) / C34.11(ICD-10) ELIAS GOSS [facility] 05/10/2024 Active Pneumothorax, un specified type / J93.9(ICD-10) NA [facility] 05/08/2024 Active Chronic obstruct ely pulmonary disease, unspecified COPD type (HCC) / J44.9(ICD-10) NA [facility] 02/01/2024 Active Postprocedural pneumothorax / J95.811(ICD-10) NA [facility] 01/31/2024 Active Foreign body of right ear, initial encounter / T16.1XXA(ICD-10) MERARI SEARS [facility] 01/31/2024 Active Hearing aid worn / Z97.4(ICD-10) MERARI SEARS [facility] 01/11/2024 Active Malignant neopla sm of upper lobe of right lung (HCC) / C34.11(ICD-10) ELIAS GOSS [facility] 01/11/2024 Active Malignant neopla sm of unspecified part of unspecified bronchus or lung (HCC) / C34.90(ICD-10) ELIAS GOSS [facility] 12/19/2023 Active Abdominal aortic aneurysm (AAA) without rupture, unspecified part (HCC) / I71.40(ICD-10) NA [facility] 11/17/2023 Active Abscess of lower lobe of right lung without pneumonia (HCC) / J85.2(ICD-10) NA [facility] PROCEDURES No Procedure Records Found RESULTS PROGRESS Observed: 11/22/2024 9:44 AM Status: COMPLETED Source: [facility] HNO ID: [id number] Author: ROMINA BEDOLLA APRN.DRYWALLER Service: ? Author Type: Nurse Practitioner Type: Progress Notes Filed: 11/22/2024 10:38 Note Text: Heart, Vascular AND Thoracic [place] Department of Thoracic Surgery VIRTUAL VIDEO VISIT [...] visit. Either the patient or their legal b2b outside sales representative has been informed of the risks and benefits of -- and alternatives to -- treatment through a remote evaluation and consents to proceed with the evaluation remotely. PAST MEDICAL HISTORY Diagnosis Date Abdominal aortic aneurysm without rupture Elevated PSA Hearing loss HTN (hypertension) Lumbosacral neuritis Malignant neoplasm of prostate (HCC) Other and unspecified hyperlipidemia Prostate cancer (HCC) 2020 xrt at [facility] Smoker former quit 2021 Spinal stenosis of [...] and care of this patient. Romina Bedolla, JESUS.DRYWALLER November 22, 2024 9:30 Part of this note was copied from previous note, all content has been individually reviewed, updated as necessary, and thoroughly reviewed. [facility] - Heart, Vascular and Thoracic [place] OUTPATIENT THORACIC SURGERY CLINIC NOTE PT NAME: Stevie Angeles [facility] NO: [id number] THORACIC SURGEON: Paula Escobar M.D. DATE OF [...] the inked margin) were reviewed at the [facility] thoracic pathology consensus conference on 11/23/23. Dr. [...] w VS), spinal stenosis and Prostate cancer [id number] adenocarcinoma prostate s/p TRUS random biopsy 09/24/20, [...] Since last seen, he was admitted to [facility] when found to be in a [...] oncology management with Dr Ana Paula Bedolla, TIMBER POISONER.DRYWALLER [1] Social History Tobacco Use Smoking status: [...] Observed: 11/21/2024 12:30 PM Status: COMPLETED Source: [facility] HNO ID: [id number] Author: DEN TORRES, TECHNOLOGIST Service: Radiology Author [...] PATIENT PRESENTS WITH AN IMPLANTABLE OR ATTACHED TRAIN STATION AGENT: No RADIOLOGY DEPARTMENT: CT; Exam(s) Completed: Chest. Anesthesia: No PERIPHERAL IV DATA: Site assessment: Clean,Dry and Intact, Site disposition Discontinued SIGNED BY: Den Torres TECHNOLOGIST November 21, 2024 12:28 PM STFR SERPL-MCNC Collected: 11:33 AM Status: F Source: [facility] Order Comment: Specimen Type : BLOOD SPECIMEN Ordering Facility: [facility] Address: [address] [place] [address] TYPE CODE TESTS RESULT OUT OF RANGE REFERENCE UNITS LAB 53961-3([facility]) sTfR SerPl-sCnc 3.0 2.2-5.0 mg/L Performed By: #### 13837-1 # ### [facility] CLIA [id number] [address] [place] [address] [place] CBC W AUTO DIFF BLD Collected: 11/19/2024 11:33 AM S tatus: F Source: [facility] Order Comment: Specimen Type : BLOOD SPECIMEN Ordering Facility: [facility] Address: [address] [place] [address] TYPE CODE TESTS RESULT OUT OF RANGE REFERENCE UNITS LAB 6690-2(LOINC) WBC # Bld Auto 9.01 3.70-11.00 k/uL LAB 789-8(LOINC) RBC # Bld Auto 3.92 Low 4.20-6.00 m/ uL LAB 718-7(LOINC) Hgb Bld-mCnc 11.2 Low 13.0-17.0 g/dL LAB 4544-3([facility]) Hct VFr Bld Auto 36.1 Low 39.0-51.0 % LAB 787-2([facility]) MCV RBC Auto 92.1 80.0-100.0 fL LAB 785-6([facility]) MCH RBC Qn Auto 28.6 26.0-34.0 p g LAB 786-4([facility]) MCHC RBC Auto-mCnc 31.0 30.5-36.0 g/dL LAB 11723-6([facility]) RDW RBC-Rto 14.3 11.5-15.0 % LAB 777-3([facility]) Platelet # Bld Auto 355 150-400 k/uL LAB 10106-5([facility]) PMV Bld Auto 9.4 9.0-12.7 fL LAB 770-8([facility]) Neutrophils/leuk NFr Bld Auto 70.6 % LAB 751-8([facility]) Neutrophils # Bld Auto 6.36 1.45-7.50 k/uL LAB 736-9([facility]) Lymphocytes/leuk NFr Bld Auto 16.9 % LAB 731-0([facility]) Lymphocytes # Bld Auto 1.52 1.00-4.00 k/uL LAB 5905-5([facility]) Monocytes/leuk NFr Bld Auto 7.8 % LAB 742-7([facility]) Monocytes # Bld Auto 0.70 <0.87 k/uL LAB 713-8([facility]) Eosinophil/leuk NFr Bld Auto 3.3 % LAB 711-2([facility]) Eosinophil # Bld Auto 0.30 <0.46 k/uL LAB 706-2([facility]) Basophils/leuk NFr Bld Auto 1.0 % LAB 704-7([facility]) Basophils # Bld Auto 0.09 <0.11 k/uL LAB 28035-5([facility]) Imm Granulocytes/fidelia k NFr Bld Auto 0.4 % LAB 03025-4([facility]) Imm Granulocytes # Bld Auto 0.04 <0.10 k/uL LAB 07418-5([facility]) nRBC/100 WBC Bld-Rto 0.0 /100 WBC LAB 771-6(LOINC) nRBC # Bld Auto <0.01 <0.01 k/u L LAB 55937-1([facility]) Differential method Bld Auto Performed By: #### 90286-4 # ### [facility] CLIA [id number] [address] [place] [address] [place] PSA SERPL-MCNC Collected: 11:33 AM Status: F Source: [facility] Comment: Specimen Type : BLOOD SPECIMEN Ordering Facility: [facility] Address: [address] [place] [address] TYPE CODE TESTS RESULT OUT OF RANGE REFERENCE UNITS LAB 2857-1([facility]) PSA SerPl-mCnc <0.02 <2.60 ng/mL Result Comment: Total PSA te st methodology used is the Electrochemiluminescence Immunoassay by [employer]. Total PSA values by differing methodologies cannot be interchanged. Performed By: #### 2857-1 ## ## [facility] CLIA [id number] [address] [place] [address] [place] COMP METAB 2000 PNL SERPL Collected: 11:33 AM Status: F Source: [facility] Comment: Specimen Type : BLOOD SPECIMEN Ordering Facility: [facility] Address: [address] [place] [address] TYPE CODE TESTS RESULT OUT OF RANGE REFERENCE UNITS LAB 2885-2([facility]) Prot SerPl-mCnc 7.0 6.3-8.0 g/dL LAB 1751-7(LOINC) Albumin SerPl-mCnc 3.7 Low 3.9-4.9 g/dL LAB 73780-4(LOINC) Calcium SerPl-mCnc 8.8 8.5-10.2 mg/dL LAB 1975-2(LOINC) Bilirub SerPl-mCnc 0.4 0.2-1.3 mg/dL LAB 6768-6(LOINC) ALP SerPl-cCnc 97 38-113 U/L LAB 1920-8(LOINC) AST SerPl-cCnc 11 Low 14-40 U/L LAB 1742-6(LOINC) ALT SerPl-cCnc 9 Low 10-54 U/L LAB 2345-7(LOINC) Glucose SerPl-mCnc 114 High 74-99 mg/dL Result Comment: The [place] Diabetes Association (ADA) provides guidance for cutoff [...] Standards of Medical Care in Diabetes 2016, [place] Diabetes Association. Diabetes Care. 2016.39(Suppl 1). LAB 3094-0(LOINC) BUN SerPl-mCnc 7 Low 9-24 mg/dL LAB 2160-0(LOINC) Creat SerPl-mCnc 0.54 Low 0.73-1.22 mg/dL LAB 2951-2(LOINC) Sodium SerPl-sCnc 142 136-144 mmol/L LAB 2823-3(LOINC) Potassium SerPl-sCnc 3.5 Low 3.7-5.1 mmol/L LAB 2075-0(LOINC) Chloride SerPl-sCnc 104 98-107 mmol/L LAB 2028-9(LOINC) CO2 SerPl-sCnc 27 22-30 mmol/L LAB 88443-6(LOINC) Anion Gap SerPl-sCnc 11 8-15 mmol/L LAB 23863-4(LOINC) eGFRcr SerPlBld CKD-EPI 2020 106 >=60 mL/min/1. [...] accurately reflect actual GFR. Performed By: #### 21161-7 # ### [facility] CLIA [id number] [address] [place] [address] [place] CNOVSP Observed: 11/19/2024 10:30 AM Status: COMPLETED Source: [facility] Visit (SP) Office (HEMMED) STEVIE ANGELES ([id number]) 1950 M DEF Date Time Provider Department [...] with air fluid level. Transferred to [facility] for bronch. Endobronchial biopsy 10/29/2024 [...] prostate adenocarcinoma, initial PSA 7.52 ng/mL, biopsy [place] score 3 + 4 = 7 (grade group 2), clinical stage T1c, N0, M0, stage IIA [cT1a-c/cT2a, N0, M0, PSA >=10 AND <20, GG 1] (AJCC 8th ed.), s/p TRUS Random biopsy 09/24/2020, s/p Lupron 45 mg IM injection 11/05/2020, and s/p external beam radiation therapy completed 01/15/2021 (70 Gy/28fx). Misc *5 cm AAA under surveillance with [employer] SCANS: 10/24/2024 CTA Chest IMPRESSION: Thick-walled right [...] inflammation or iron deficiency is the primary stage driver of the anemia. 3.) History of [...] hyperlipidemia Prostate cancer (HCC) 2020 xrt at [facility] Smoker former quit 2021 Spinal stenosis of [...] which included preparing to see the patient, shkr-bn-iovj patient care, completing clinical documentation, obtaining and/or [...] BIOMARKER AND MOLECULAR TESTING [SQAPMOL] Order #: [id number]. #:[id number] NM PET/CT SKULL-THIGH INITIAL [2856504] Order #: [id number] FUTURE MRI BRAIN WO/W IVCON [7332012] Order #: [id number] FUTURE iv contrast (will be provided with [...] contrast administration guidelines linkDisp: 1 eachRfl: 0 [id number] [OAH03158] Order #: [id number] FUTURE COMPLETE BLOOD COUNT AND DIFFERENTIAL [SQCBCDIF] Order #: [id number] FUTURE COMPREHENSIVE METABOLIC PANEL [SQCMP] Order #: [id number] FUTURE SOLUBLE TRANS RECEPTOR [SQSTRANS] Order #: [id number] FUTURE PROSTATE-SPECIFIC ANTIGEN DIAGNOSTIC [SQPSA] Order #: [id number] STANDING [id number] [SBC57964] Order #: [id number]. #:[id number] COMPLETE BLOOD COUNT AND DIFFERENTIAL [SQCBCDIF] Order #: [id number]. #:[id number] COMPREHENSIVE METABOLIC PANEL [SQCMP] Order #: [id number]. #:[id number] SOLUBLE TRANS RECEPTOR [SQSTRANS] Order #: [id number]. #:[id number] PROSTATE-SPECIFIC ANTIGEN DIAGNOSTIC [SQPSA] Order #: [id number]. #:[id number] Level of Service: OFFICE/OUTPATIENT ESTABLISHED HIGH [facility] 40 MIN [09636] Additional E/M codes: VISIT CPLX INHERENT EANDM ASSOC WITH MED * Disposition: Return in about 3 weeks (around 12/10/2024). Follow-up and Disposition History for Encounter Date Provider Department Center 11/19/2024 [id number], ANDREW [facility] Prescriptions as of 11/19/2024 [...] Observed: 11/19/2024 10:30 AM Status: COMPLETED Source: [facility] HNO ID: [id number] Author: ELIAS CHARLES MD Service: ? Author [...] with air fluid level. Transferred to [facility] for bronch. Endobronchial biopsy 10/29/2024 [...] Misc *5 cm AAA under surveillance with [employer] SCANS: 10/24/2024 CTA Chest IMPRESSION: Thick-walled right [...] inflammation or iron deficiency is the primary stage driver of the anemia. 3.) History of [...] hyperlipidemia Prostate cancer (HCC) 2020 xrt at [facility] Smoker former quit 2021 Spinal stenosis of [...] which included preparing to see the patient, eetu-fl-xxro patient care, completing clinical documentation, obtaining and/or reviewing separately obtained history, performing a medically appropriate examination, counseling and educating the patient/family/caregiver, and ordering medications, tests, or procedures. OFELIA Observed: 11/19/2024 12:00 AM Status: COMPLETED Source: [facility] Telephone (RADRST) STEVIE ANGELES ([id number]) 1950 M DEF Date Time Provider Department [...] Collected: 11/14/2024 8:54 AM Status: F Source: [facility] Order Comment: Specimen Type : TISSUE SPECIMEN Ordering Facility: [facility] Address: [address] [place] [address] TYPE CODE TESTS RESULT OUT OF RANGE REFERENCE UNITS LAB APMOLR REFERRAL FOR ADDITIONAL BIOMARKER AND MOLECULAR TESTING Result Comment: Request has been received for evaluation and the results will be issued separately. Performed By: #### APMOL ### # [facility] CLIA [id number] [address] [place] [id number] [place] CASE MANAGEM Observed: 11/05/2024 2:36 PM Status: COMPLETED Source: [facility] HNO ID: [id number] Author: MALIA ROWELL RN Service: Care Management Author Type: Registered Nurse Type: Care Mgt Progress Note Filed: 11/05/2024 14:38 Note Text: CARE MANAGEMENT DISCHARGE NOTE SERVICE DATE: November 05, 2024 SERVICE TIME: 2:36 PM Admission Date: 10/24/2024 LOS: 12 days Discharge Arrangement Discharge Arrangement: Halfway Facility Was an expedited discharge program used?: No Services Arranged SNF Placement Provider Name: Gilma Caregiver Assessment Caregiver is ready, willing and able to meet the patient's needs as recommended by the inter-professional team: Yes Name of Caregiver: [facility] Transportation Arrangements Transportation Arrangements: Ambulance Transportation Agency and Phone #:: [facility] [phone] Date of Trip: 11/05/24 Time of Trip: 1530 Type of Service: BLS Non-emergency Is Patient Medicaid Pending?: No Was transportation financial coverage discussed with family?: Patient, Family Youth Services Specialist Location: [place] Destination: [facility] Financial Care Management Responsibility: None Handoff Communication: Handoff to: Primary Care Physician Primary Care Physician Name/Phone: Praful Su MD SOC sent Additional Information: Per MD patient is medically ready for DC today AUTH approved and patient will dc to [facility] SNF confirmed they are able to meet [...] Observed: 11/05/2024 12:13 PM Status: COMPLETED Source: [facility] HNO ID: [id number] Author: PATRICIA SLOAN MD Service: Hospital Medicine [...] Consulting: Kurt Pereira MD Primary Service: 5, [facility] Consulting: Kevin Cantu MD MY CONDITION AT [...] your lung. You were sent to [facility] and underwent bronchoscopy. You were treated with IV antibiotics. The results from the bronchoscopy showed concern for cancer reoccurrence. You should follow-up with oncology as outpatient. You are being discharged to alf facility and will continue taking IV antibiotics [...] No pending results Discharge Disposition Discharge Disposition: Halfway Facility - Less than 30 Days Additional [...] mass, pulmonology consulted, underwent bronchoscopy at [facility] on 10/29/2024. Showed right upper [...] Consulting: Kurt Pereira MD Primary Service: , [facility] Consulting: Kevin Cantu MD FINAL DIAGNOSIS: lung [...] DISCHARGE: FOLLOW-UP APPOINTMENTS ALREADY SCHEDULED WITH A [facility] PROVIDER: Future Appointments Date Time Provider Department Center 11/15/2024 11:00 AM PET INJECTION MOBILE [facility] 11/15/2024 12:[address] [facility] 11/19/2024 10:30 AM Elias Charles MD [facility] Med C 11/21/2024 12:[address] [facility] 11/22/2024 9:30 AM Romina Bedolla APRN.DRYWALLER [address] 12/12/2024 1:00 PM LAB [facility] 12/17/2024 2:30 PM [facility] 12/24/2024 11:00 AM NABEEL DEMONSTRATOR [facility] 12/24/2024 11:30 AM Malia Egan DO [facility] [place] [facility] 03/13/2025 3:00 PM [facility] ALLERGIES No Known Allergies [...] 4 -8% ED Encounter 0 7% Facility [facility] -7% Sodium (Avg) 140 6% procedure count 15 6% Hospital [address] 6% Zip Code [facility] -6% Admissions (60d) 1 Plan of care discussed with Patient and RN I have performed the hcva-jp-ssjn and relevant services for a total of >30 minutes. SIGNATURE: Patricia Sloan MD DATE: November 05, 2024 TIME: 12:13 PM CASE MANAGEM Observed: 11/05/2024 9:58 AM Status: COMPLETED Source: [facility] HNO ID: [id number] Author: MALIA ROWELL RN Service: Care Management [...] Observed: 11/05/2024 6:44 AM Status: COMPLETED Source: [facility] HNO ID: [id number] Author: KURT PEREIRA MD Service: Infectious Disease [...] malignant. Plan on performing bronchoscopy/EBUS at [facility] on 10/29. Continue unasyn Negative [...] 1527 Peripherally Inserted (PICC) Right Arm 4.0 Sudanese <1 day Drain Duration External Collection Device 10/24/24 2300 11 days Labs: reviewed Microbiology data: reviewed Imaging data: reviewed Evelia Fuchs, ELVIRA [phone] 11/05/2024 6:44 AM I personally saw and evaluated the patient. I reviewed the MILITARY ADMINISTRATIVE TECHNICIAN Hx, exam and MDM and I agree with the MILITARY ADMINISTRATIVE TECHNICIAN assessment and plan unless otherwise addended above. Kurt Pereira MD [phone] 11/05/2024 12:13 PM CBC PNL BLD AUTO Collected: 11/05/2024 6:39 AM Statu s: F Source: [facility] Order Comment: Specimen Type : BLOOD SPECIMEN Ordering Facility: [facility] Address: [address] [place] [address] TYPE CODE TESTS RESULT OUT OF RANGE [...] MCHC RBC Auto-mCnc 32.0 30.5-36.0 g/dL LAB 03459-9(LOINC) RDW RBC-Rto 14.6 11.5-15.0 % LAB 777-3(LOINC) Platelet # Bld Auto 410 High 150-400 k/uL LAB 72820-9(LOINC) PMV Bld Auto 8.6 Low 9.0-12.7 fL LAB 771-6(LOINC) nRBC # Bld Auto <0.01 <0.01 k/uL Performed By: #### 96173-3 # ### [facility] CLIA [id number] [address] [place] [address] [place] BAS METAB 2000 PNL SERPL Collected: 10/2024 6:39 AM Status: F Source: [facility] Order Comment: Specimen Type : BLOOD SPECIMEN Ordering Facility: [facility] Address: [address] [place] [address] [place] [id number] TYPE CODE TESTS RESULT OUT OF RANGE REFERENCE UNITS LAB 2345-7(LOINC) Glucose SerPl-mCnc 109 High 74-99 mg/dL Result Comment: The [place] Diabetes Association (ADA) provides guidance for cutoff [...] Standards of Medical Care in Diabetes 2016, [place] Diabetes Association. Diabetes Care. 2016.39(Suppl 1). LAB 3094-0(LOINC) BUN SerPl-mCnc 8 Low 9-24 mg/dL LAB 2160-0(LOINC) Creat SerPl-mCnc 0.60 Low 0.73-1.22 mg/dL LAB 2951-2(LOINC) Sodium SerPl-sCnc 141 136-144 mmol/L LAB 2823-3(LOINC) Potassium SerPl-sCnc 3.3 Low 3.7-5.1 mmol/L LAB 2075-0(LOINC) Chloride SerPl-sCnc 107 98-107 mmol/L LAB 2028-9(LOINC) CO2 SerPl-sCnc 24 22-30 mmol/L LAB 60995-4(LOINC) Anion Gap SerPl-sCnc 10 8-15 mmol/L LAB 59104-8(LOINC) Calcium SerPl-mCnc 8.4 Low 8.5-10.2 mg/dL LAB 46245-0(LOINC) eGFRcr SerPlBld CKD-EPI 2020 103 >=60 mL/min/1. [...] accurately reflect actual GFR. Performed By: #### 25834-9 # ### [facility] CLIA [id number] [address] [place] [address] [facility] PROGRESS Observed: 11/04/2024 5:14 PM Status: COMPLETED Source: [facility] HNO ID: [id number] Author: KURT PEREIRA MD Service: ? Author Type: Physician Type: Progress Notes Filed: 11/04/2024 17:15 Note Text: [facility] Outpatient Parenteral Antimicrobial Therapy (OPAT) Start Form Patient Info Patient MRN Patient Name Address Date of [id number] Stevie Angeles [address] [facility] [id number] 1950 Start Date 11/04/2024 Physician Group [facility] Diagnosis Group Diagnosis Thoracic: Lung abscess Micro-organism [...] on an intermittent IV antibiotic dosing schedule: [facility] method: 1) Administer normal saline 5ml IV [...] malignant. Plan on performing bronchoscopy/EBUS at [facility] on 10/29. Continue unasyn Follow up Provider Follow up date/time Appointment type Kurt Pereira MD 12/03/2024 In-person Provider Monitoring Treatment Course Kurt Pereira MD Address [address] [place] [address], [place] [address] Prescribing Provider's signature - electronically signed by Kurt Pereira MD on 11/04/24 at 5:15 PM CASE MANAGEM Observed: 11/04/2024 3:54 PM Status: COMPLETED Source: [facility] HNO ID: [id number] Author: PATRICIA SLOAN MD Service: Care Management [...] Observed: 11/04/2024 3:41 PM Status: F Source: [facility] * * *Final Report* * * [...] the stomach is suspected. IMPRESSION: See result. Field Technical Support Consultant: IMMANUEL Transcribe Date/Time: Nov 04 2024 3:42P Dictated by : DON DÍAZ MD This examination was interpreted and the report reviewed and electronically signed by: DON DÍAZ MD on Nov 04 2024 3:43PM EST [id number] PROCEDURE Observed: 11/04/2024 3:23 PM Status: COMPLETED Source: [facility] ID: [id number] Author: RAMESH CARDOZO RN Service: Radiology Author Type: Registered Nurse Type: Procedures Filed: 11/04/2024 15:27 Note Text: PICC NURSE INSERTION NOTE DATE OF PROCEDURE: November 04, 2024 TIME OF PROCEDURE: 1445 ORDERING PHYSICIAN: Dr Sloan INFORMED CONSENT: Obtained per hospital policy. INDICATION FOR LINE PLACEMENT: COPAT CONDITION OF LINE PLACEMENT: Sterile PRIMARY PROCEDURALIST: Dejah Sanchez POLICEMAN: Ramesh Cardozo RN PRE-PROCEDURE REVIEW ALLERGIES No [...] nurse for hospitalized patients). CATHETER PLACEMENT Brand: [employer] Lot: [id number] Number of Lumens: 1 Type of PICC: Power Injectable PICC Lumen Size: 4 Sudanese PLACEMENT TECHNIQUE Lidocaine: Yes, Lidocaine 1% Volume [...] Patient Education Materials: Placed in chart [facility] Central Line Insertion checklist was utilized during this procedure. QUESTIONS or PROBLEMS: If you have any questions, please call the [facility] Interventional Radiology department at [phone], option #3. SIGNATURE: Ramesh Cardozo RN PATIENT NAME: Stevie Angeles DATE: November 04, 2024 TIME: 3:23 PM PAGER/CONTACT PHONE: NURSING PROG Observed: 11/04/2024 2:52 PM Status: COMPLETED Source: [facility] HNO ID: [id number] Author: ALETHA BURROWS RN Service: PICC Team [...] Signed By: Aletha Burrows RN In Department: [facility] CASE MANAGEM Observed: 11/04/2024 2:13 PM Status: COMPLETED Source: [facility]NO ID: [id number] Author: MALIA ROWELL RN Service: Care Management Author Type: Registered Nurse Type: Care Mgt Progress Note Filed: 11/04/2024 14:14 Note Text: CARE MANAGEMENT PROGRESS NOTE SERVICE DATE: 11/04/2024 SERVICE TIME: 10:27 AM LOS: 11 days Needs Prior to Discharge: IV Antibiotics, Other: See Comment, Discharge Transportation [place] of Choice Given: Yes Level of Care Discussed: Halfway Facility Provider List: Halfway Facility Provider list within the patient's requested geographic area shared with the patient/family: Yes within: 15 miles of zip code: [address] Metrics: Functional Status, Medication Reconciliation CM met with patient, nurse and MD at bedside to confirm DC plan PT/OR rec SNF Plan for CoPAT/PICC Patient requesting referral to [facility] Patient gives permission to speak with sister for alternative choices if needed CM called sister and updated. SNF choice emailed for additional SNF choices Will need final CoPAT/PICC/PRECERT/HENS prior to DC 11:15- CM received additional SNF choices from sister [facility]ing [facility], [facility], and [facility] Referrals sent 14:13- CM confirmed with sister SNF response Aware [facility] unable to accept. Agreeable with a dc to [facility] Still awaiting final CoPAT and will need to confirm with [facility] SIGNATURE: Malia Rowell RN PATIENT NAME: Stevie Angeles DATE: November 04, 2024 TIME: 10:27 AM PROGRESS Observed: 11/04/2024 1:00 PM Status: COMPLETED Source: [facility] HNO ID: [id number] Author: PATRICIA SLOAN MD Service: Hospital Medicine Author Type: Physician Type: Progress Notes Filed: 11/04/2024 13:01 Note Text: DEPARTMENT OF HOSPITAL MEDICINE PROGRESS NOTE SERVICE DATE: 11/04/2024 SERVICE TIME: 1:00 PM Hospital Medicine/Primary Attending: Patricia Sloan MD NIGHT AND WEEKEND COVERAGE: [place] [employer]: Days: [phone], please page attending physician. Nights: [phone], please page [place] Night coverage pager [phone]. Subjective INTERVAL HPI: - very hard of hearing - Discussed with sister and was able to give SNF choices - Discussed with jefe Santigao for PICC line Current Facility-Administered Medications Medication [...] mass, pulmonology consulted, underwent bronchoscopy at [facility] on 10/29/2024. Showed right upper [...] consulted Heme-onc follow-up outpatient Bronchoscopy at [facility] Completed. Bacterial cultures growing E. [...] Yes Medication and Non-Pharmacologic VTE Prophylaxis/Anticoagulants 10/24/24 3617 activity - mobilize patient (ny,oh) VTE Prophylaxis: VTE prophylaxis appropriate Disposition: To be determined, SNF versus C. Plan of care discussed with Provider, RN, Patient Plan communicated to: Patient SIGNATURE: Patricia Sloan MD PATIENT NAME: Stevie Angeles DATE:11/04/24 TIME:1:01 PM THERAPY NT Observed: 11/04/2024 11:10 AM Status: COMPLETED Source: [facility] ID: [id number] Author: ALEX MAJOR OTR/Umberto Service: Occupational Therapy Author Type: Occupational Therapist Type: Therapy (PT/OT/Speech/Resp) Filed: 11/04/2024 11:35 Note Text: Summary: OT precert note Occupational Therapy Treatment Summary SERVICE DATE: 11/04/2024 SERVICE TIME: 1110 to 1128 ROOM: [place] [address] OT 6 Clicks Score: 19 DISCHARGE RECOMMENDATIONS [...] + driving SUBJECTIVE Patient supine in bed [place] agreeable to OT COGNITION Responsiveness: Alert, Awake Follows Commands: Cueing Needed Cueing to Follow Commands: Minimum THERAPY DIAGNOSIS Reduced mobility-other, Decreased activities of daily living (ADL), Unsteadiness on feet, General symptoms and signs-other TREATMENT INTERVENTIONS Self Usp Management (41754) Timed Code Treatment (minutes): 18 TRAINING AND [...] Observed: 11/04/2024 11:02 AM Status: COMPLETED Source: [facility] ID: [id number] Author: KURT PEREIRA MD Service: Infectious Disease [...] malignant. Plan on performing bronchoscopy/EBUS at [facility] on 10/29. Continue unasyn Negative [...] data: reviewed Imaging data: reviewed Evelia Fuchs, DRYWALLER [phone] 11/04/2024 10:33 AM I personally saw and evaluated the patient. I reviewed the MILITARY ADMINISTRATIVE TECHNICIAN Hx, exam and MDM and I agree with the MILITARY ADMINISTRATIVE TECHNICIAN assessment and plan unless otherwise addended above. Kurt Pereira MD [phone] 11/04/2024 5:12 PM PROGRESS Observed: 11/03/2024 1:36 PM Status: COMPLETED Source: [facility] ID: [id number] Author: PATRICIA SLOAN MD Service: Hospital Medicine Author Type: Physician Type: Progress Notes Filed: 11/03/2024 13:38 Note Text: DEPARTMENT OF HOSPITAL MEDICINE PROGRESS NOTE SERVICE DATE: 11/03/2024 SERVICE TIME: 1:36 PM Hospital Medicine/Primary Attending: Patricia Sloan MD NIGHT AND WEEKEND COVERAGE: [place] [employer]: Days: [phone], please page attending physician. Nights: [phone], please page [place] [facility] Night coverage pager [phone]. Subjective INTERVAL HPI: - very hard of [...] mass, pulmonology consulted, underwent bronchoscopy at [facility] on 10/29/2024. Showed right upper [...] consulted Heme-onc follow-up outpatient Bronchoscopy at [facility] Completed. Bacterial cultures growing E. [...] Prophylaxis/Anticoagulants 10/24/24 2245 activity - mobilize patient (ny,oh) VTE Prophylaxis: VTE prophylaxis appropriate Disposition: To be determined, SNF versus C. Plan of care discussed with Provider, RN, Patient Plan communicated to: Patient SIGNATURE: Patricia Sloan MD PATIENT NAME: Stevie Angeles DATE:11/03/24 TIME:1:38 PM CONSULT PROG Observed: 11/03/2024 10:03 AM Status: COMPLETED Source: [facility] ID: [id number] Author: KURT PEREIRA MD Service: Infectious Disease [...] malignant. Plan on performing bronchoscopy/EBUS at [facility] on 10/29. Continue unasyn Negative [...] reviewed Imaging data: reviewed Kurt Pereira MD [phone] 11/03/2024 10:33 AM PROGRESS Observed: 11/02/2024 3:12 PM Status: COMPLETED Source: [facility] ID: [id number] Author: PATRICIA SLOAN MD Service: Hospital Medicine Author Type: Physician Type: Progress Notes Filed: 11/02/2024 15:14 Note Text: DEPARTMENT OF HOSPITAL MEDICINE PROGRESS NOTE SERVICE DATE: 11/02/2024 SERVICE TIME: 3:12 PM Hospital Medicine/Primary Attending: Patricia Sloan MD NIGHT AND WEEKEND COVERAGE: [place] [employer]: Days: [phone], please page attending physician. Nights: [phone], please page [place] [facility] Night coverage pager [phone]. Subjective INTERVAL HPI: - very hard of [...] mass, pulmonology consulted, underwent bronchoscopy at [facility] on 10/29/2024. Showed right upper [...] consulted Heme-onc follow-up outpatient Bronchoscopy at [facility] Completed. Bacterial cultures growing E. [...] Yes Medication and Non-Pharmacologic VTE Prophylaxis/Anticoagulants 10/24/24 3852 activity - mobilize patient (fl,oh) VTE Prophylaxis: VTE prophylaxis appropriate Disposition: To be determined, SNF versus HHC. May need home oxygen evaluation if plan for DC home. Patient will need ENT follow-up on discharge Plan of care discussed with Provider, RN, Patient Plan communicated to: Patient SIGNATURE: Patricia Sloan MD PATIENT NAME: Stveie Angeles DATE:11/02/24 TIME:3:13 PM THERAPY NT Observed: 11/02/2024 2:09 PM Status: COMPLETED Source: [facility] ID: [id number] Author: DESIRAE PEARCE PT Service: Physical Therapy Author Type: Physical Therapist Type: Therapy (PT/OT/Speech/Resp) Filed: 11/02/2024 15:12 Note Text: Summary: PT evaluation Physical Therapy Evaluation Summary SERVICE DATE: 11/02/2024 SERVICE TIME: 1409 to 1439 ROOM: [place] [address] PT 6 Clicks Score: 17 DISCHARGE RECOMMENDATIONS [...] A for amb with FWW. unsafe. patient [place]ITAN GRANDE and has a difficult time with cues. [...] plan for bronchoscopy and biopsy at [facility] 10/29 Relevant Past Medical History: [...] Reduced mobility-other TREATMENT INTERVENTIONS Evaluation, Therapeutic Activity (99727), Gait Training (39069) Timed Code Treatment (minutes): 15 Skilled Treatment Time (minutes): 30 $ Evaluation-Low (46318) Billed Units: 1 unit Therapeutic Activity (60785) Treatment Minutes: 10 $ Therapeutic Activity (22579) Billed Units: 1 unit Gait Training (59893) Treatment Minutes: 5 $ Gait Training (17317) Billed Units: 0 units Range of Motion: WFL Except, ROM Limitation Comments ROM Limitation Comments: right ankle DF to neutral Strength: WFL Except, Strength Limitation Comments Strength Limitation Comments: patient not able to follow commands for MMT due to very [place]. grossly at least 3-/5 per clinical judgement [...] Observed: 11/02/2024 1:01 PM Status: COMPLETED Source: [facility] ID: [id number] Author: APRYL GUERRERO RPh Service: Pharmacy Author [...] EXAM-DIAG Observed: 10:49 AM Status: F Source: [facility] OCCULT BLOOD DIAGNOSTIC: Negative Performed By: #### OBDX #### [facility] CLIA [id number] [address] [place] [address] [facility] CONSULT PROG Observed: 11/02/2024 10:01 AM Status: COMPLETED Source: [facility] ID: [id number] Author: KURT PEREIRA MD Service: Infectious Disease [...] malignant. Plan on performing bronchoscopy/EBUS at [facility] on 10/29. Continue unasyn Negative Legionella and [...] reviewed Imaging data: reviewed Kurt Pereira MD [phone] 11/02/2024 10:33 AM PROGRESS Observed: 11/02/2024 9:22 AM Status: COMPLETED Source: [facility] ID: [id number] Author: HAILE ALFARO JR, MD Service: Critical Care Author Type: Physician Type: Progress Notes Filed: 11/02/2024 13:34 Note Text: PULM / CRITICAL CARE PROGRESS NOTE SERVICE DATE: November 02, 2024 SERVICE TIME: 9:22 AM Admission Date: 10/24/2024 AGE: [age] year old LOS: 9 days Subjective Cc: infection, possible recurrent cancer Taking with healthcare analyst regarding rehab No chest pain Knows that [...] hyperlipidemia Prostate cancer (HCC) 2020 xrt at [facility] Smoker former quit 2021 Spinal stenosis of [...] 11/02/2024 4:32 AM S tatus: F Source: [facility] Order Comment: Specimen Type : BLOOD SPECIMEN Ordering Facility: [facility] Address: [address] [place] [address] TYPE CODE TESTS RESULT OUT OF RANGE REFERENCE UNITS LAB (LOINC) Magnesium SerPl-mCnc 1.9 1.7-2.3 mg/dL Performed By: #### 47015-9, 69261-4 #### [facility] CLIA [id number] [address] [place] [id number] [place] [facility]UNC 1999 PNL SERPL Collected: 4:32 AM Status: F Source: [facility] Order Comment: Specimen Type : BLOOD SPECIMEN Ordering Facility: [facility] Address: [address] [place] [address] TYPE CODE TESTS RESULT OUT OF RANGE REFERENCE UNITS LAB 1751-7(LOINC) Albumin SerPl-mCnc 2.6 Low 3.9-4.9 g/dL LAB 14084-4(LOINC) Calcium SerPl-mCnc 8.5 8.5-10.2 mg/dL LAB 2777-1(LOINC) Phosphate SerPl-mCnc 2.7 2.7-4.8 mg/dL LAB 2345-7(LOINC) Glucose SerPl-mCnc 107 High 74-99 mg/dL Result Comment: The [place] Diabetes Association (ADA) provides guidance for cutoff [...] Standards of Medical Care in Diabetes 2016, [place] [employer] Association. Diabetes Care. 2016.39(Suppl 1). LAB 3094-0(LOINC) BUN SerPl-mCnc 9 9-24 mg/dL LAB 2160-0(LOINC) Creat SerPl-mCnc 0.65 Low 0.73-1.22 mg/dL LAB 2951-2(LOINC) Sodium SerPl-sCnc 140 136-144 mmol/L LAB 2823-3(LOINC) Potassium SerPl-sCnc 4.0 3.7-5.1 mmol/L LAB 2075-0(LOINC) Chloride SerPl-sCnc 104 98-107 mmol/L LAB 2028-9(LOINC) CO2 SerPl-sCnc 29 22-30 mmol/L LAB 52675-4(LOINC) Anion Gap SerPl-sCnc 7 Low 8-15 mmol/L LAB 07569-1(LOINC) eGFRcr SerPlBld CKD-EPI 2020 100 >=60 mL/min/1. [...] accurately reflect actual GFR. Performed By: #### 17676-2, 10705-5 #### [facility] CLIA [id number] [address] CBC PNL BLD AUTO Collected: 11/02/2024 4:32 AM Statu s: F Source: [facility] Order Comment: Specimen Type : BLOOD SPECIMEN Ordering Facility: [facility] Address: [address] [place] [address] TYPE CODE TESTS RESULT OUT OF RANGE [...] MCHC RBC Auto-mCnc 31.1 30.5-36.0 g/dL LAB 08354-9(LOINC) RDW RBC-Rto 14.6 11.5-15.0 % LAB 777-3(LOINC) Platelet # Bld Auto 392 150-400 k/uL LAB 12237-9(LOINC) PMV Bld Auto 8.9 Low 9.0-12.7 fL LAB 771-6(LOINC) nRBC # Bld Auto <0.01 <0.01 k/uL Performed By: #### 00188-8 # ### [facility] CLIA [id number] [address] CASE MANAGEM Observed: 11/01/2024 12:42 PM Status: COMPLETED Source: [facility]NO ID: [id number] Author: GRACIELA SIFUENTES RN Service: Care Management Author Type: Registered Nurse Type: Care Mgt Progress Note Filed: 11/01/2024 16:21 Note Text: CARE MANAGEMENT PROGRESS NOTE SERVICE DATE: 11/01/2024 SERVICE TIME: 12:43 PM LOS: 8 days Needs Prior to Discharge: To Be Determined, Accepting Facility, Bed Availability, Facility or Agency Choices, IV Antibiotics, Precertification, Other: See Comment (CoPAT) [place] of Choice Given: Yes Level of Care Discussed: Halfway Facility Financial Disclosure Provided: Yes Provider List: Halfway Facility Provider list within the patient's requested geographic area shared with the patient/family: Yes of zip code: [address] Quality and resource use metrics shared with [...] Observed: 11/01/2024 12:28 PM Status: COMPLETED Source: [facility]NO ID: [id number] Author: CRISTOPHER FERREIRA RD Service: Nutrition Therapy [...] Observed: 11/01/2024 11:57 AM Status: COMPLETED Source: [facility]NO ID: [id number] Author: HAILE ALFARO JR, MD Service: Critical Care Author Type: Physician Type: Progress Notes Filed: 11/01/2024 12:05 Note Text: PULM / CRITICAL CARE PROGRESS NOTE SERVICE DATE: November 01, 2024 SERVICE TIME: 11:57 AM Admission Date: 10/24/2024 AGE: [age] year old LOS: 8 days Subjective Cc: infection, possible recurrent cancer Taking with healthcare analyst regarding rehab No chest pain Knows that [...] hyperlipidemia Prostate cancer (HCC) 2020 xrt at [facility] Smoker former quit 2021 Spinal stenosis of [...] Observed: 11/01/2024 11:32 AM Status: COMPLETED Source: [facility]NO ID: [id number] Author: SYED LEI MD Service: Hospital Medicine Author Type: Physician Type: Progress Notes Filed: 11/01/2024 15:47 Note Text: DEPARTMENT OF HOSPITAL MEDICINE PROGRESS NOTE SERVICE DATE: 11/01/2024 SERVICE TIME: 11:33 AM Hospital Medicine/Primary Attending: Syed Lei,* NIGHT AND WEEKEND COVERAGE: [place] [employer]: Days: [phone], please page attending physician. Nights: [phone], please page [place] Hospitalist Night coverage pager [phone]. Subjective INTERVAL HPI: Seen and examined, patient [...] mass, pulmonology consulted, underwent bronchoscopy at [facility] on 10/29/2024. Showed right upper [...] consulted Heme-onc follow-up outpatient Bronchoscopy at [facility] Completed. Bacterial cultures growing E. [...] Yes Medication and Non-Pharmacologic VTE Prophylaxis/Anticoagulants 10/24/24 2595 activity - mobilize patient (ny,oh) VTE Prophylaxis: VTE prophylaxis appropriate Disposition: To be determined, SNF versus HHC. May need home oxygen evaluation if plan for DC home. Patient will need ENT follow-up on discharge Plan of care discussed with Provider, RN, Patient Plan communicated to: Patient SIGNATURE: Syed Lei MD, MD PATIENT NAME: Stevie Angeles DATE:11/01/24 TIME:12:09 PM CONSULT PROG Observed: 11/01/2024 10:33 AM Status: COMPLETED Source: [facility] ID: [id number] Author: KURT PEREIRA MD Service: Infectious Disease [...] malignant. Plan on performing bronchoscopy/EBUS at [facility] on 10/29. Stop piperacillin tazobactam [...] reviewed Imaging data: reviewed Kurt Pereira MD [phone] 11/01/2024 10:33 AM VIT B12 SERPL-MCNC Collected: 11/01/2024 5:01 AM Sta tus: F Source: [facility] Order Comment: Specimen Type : BLOOD SPECIMEN Ordering Facility: [facility] Address: [address] [place] [address] TYPE CODE TESTS RESULT OUT OF RANGE REFERENCE UNITS LAB 2132-9(LOINC) Vit B12 SerPl-mCnc 357 327-6570 pg/mL Performed By: #### 2132-9, 2 284-8 #### [facility] CLIA [id number] [address] [place] [address] [facility] FOLATE SERPL-MCNC Collected: 11/01/2024 5:01 AM Stat us: F Source: [facility] Order Comment: Specimen Type : BLOOD SPECIMEN Ordering Facility: [facility] Address: [address] [place] [address] TYPE CODE TESTS RESULT OUT OF RANGE REFERENCE UNITS LAB 2284-8(LOINC) Folate SerPl-mCnc 2.8 Low >4.7 ng/mL Performed By: #### 2132-9, 2 284-8 #### [facility] CLIA [id number] [address] [place] [address] [place] [facility] PROGRESS Observed: 10/31/2024 3:32 PM Status: COMPLETED Source: [facility] HNO ID: [id number] Author: RADHA GARCÍA APRN.ELVIRA Service: ? Author [...] sent to our scheduling team. Radha García APRN.DRYWALLER CASE MANAGEM Observed: 10/31/2024 2:38 PM Status: COMPLETED Source: [facility] HNO ID: [id number] Author: FARIDEH VIVEROS RN Service: Care Management [...] Observed: 10/31/2024 11:45 AM Status: COMPLETED Source: [facility] HNO ID: [id number] Author: SYED LEI MD Service: Hospital Medicine Author Type: Physician Type: Progress Notes Filed: 10/31/2024 11:49 Note Text: DEPARTMENT OF HOSPITAL MEDICINE PROGRESS NOTE SERVICE DATE: 10/31/2024 SERVICE TIME: 11:46 AM Hospital Medicine/Primary Attending: Syed Lei,* NIGHT AND WEEKEND COVERAGE: [place] [employer]: Days: [phone], please page attending physician. Nights: [phone], please page [place] [facility] Night coverage pager [phone]. Subjective INTERVAL HPI: Seen and examined, patient [...] plan for bronchoscopy and biopsy at [facility]. Patient was also evaluated by [...] consulted Heme-onc follow-up outpatient Bronchoscopy at [facility] Completed. Bacterial cultures growing E. [...] Prophylaxis/Anticoagulants 10/24/24 2245 activity - mobilize patient ([place]) VTE Prophylaxis: VTE prophylaxis appropriate Disposition: To be determined Plan of care discussed with Provider, RN, Patient Plan communicated to: Patient SIGNATURE: Syed Lei MD, MD PATIENT NAME: Stevie Angeles DATE:10/31/24 TIME:11:49 AM CONSULT Observed: 10/31/2024 11:27 AM Status: COMPLETED Source: [facility] HNO ID: [id number] Author: RADHA GARCÍA APRN.DRYWALLER Service: Hematology/Oncology Author Type: Nurse Practitioner Type: [...] may be reactive. Patient was admitted to [facility] for further work-up and management and hematology oncology has been consulted for recurrent lung cancer. PAST MEDICAL HISTORY Diagnosis Date Abdominal aortic aneurysm without rupture Elevated PSA Hearing loss HTN (hypertension) Lumbosacral neuritis Malignant neoplasm of prostate (HCC) Other and unspecified hyperlipidemia Prostate cancer (HCC) 2020 xrt at [facility] Smoker former quit 2021 Spinal stenosis of [...] PHYSICAL EXAM: GENERAL: No acute distress. AANDO. [place]IT[place] GRANDE HEENT: Normocephalic, atraumatic. Normal conjunctiva, no scleral [...] productive cough and he was admitted to [facility] for further work-up and management and [...] showed E coli - s/p Bronchoscopy at [facility] main on 10/29/2024 which showed few [...] any urgent needs please call the attending promotions manager. SIGNATURE: Radah García APRN.CNP PATIENT NAME: Stevie Angeles DATE: [...] Observed: 10/31/2024 9:28 AM Status: COMPLETED Source: [facility] HNO ID: [id number] Author: HAILE ALFARO JR, MD Service: Critical [...] hyperlipidemia Prostate cancer (HCC) 2020 xrt at [facility] Smoker former quit 2021 Spinal [...] Intake/Output Summary (Last 24 hours) at 10/31/2024 0961 Last data filed at 10/31/2024 0538 Gross [...] Observed: 10/31/2024 7:42 AM Status: COMPLETED Source: [facility] ID: [id number] Author: KURT PEREIRA MD Service: Infectious Disease [...] malignant. Plan on performing bronchoscopy/EBUS at [facility] on 10/29. Will continue with [...] reviewed Imaging data: reviewed Kurt Pereira MD [phone] 10/31/2024 7:53 AM THERAPY NT Observed: 10/30/2024 2:55 PM Status: COMPLETED Source: [facility] HNO ID: [id number] Author: ALEX MAJOR OTR/Umberto Service: Occupational Therapy Author Type: Occupational Therapist Type: Therapy (PT/OT/Speech/Resp) Filed: 10/30/2024 16:08 Note Text: Summary: OT eval Occupational Therapy Evaluation Summary SERVICE DATE: 10/30/2024 SERVICE TIME: 1455 to 1522 ROOM: [id number] OT 6 Clicks Score: 19 DISCHARGE RECOMMENDATIONS [...] plan for bronchoscopy and biopsy at [facility] 10/29 Relevant Past Medical History: [...] + driving SUBJECTIVE Patient supine in bed [place] agreeable to OT COGNITION Responsiveness: Alert, Awake Follows Commands: Cueing Needed Cueing to Follow Commands: Minimum THERAPY DIAGNOSIS Reduced mobility-other, Decreased activities of daily living (ADL), Muscle Weakness (generalized), General symptoms and signs-other TREATMENT INTERVENTIONS Evaluation, Self Usp Management (39894) Timed Code Treatment (minutes): 12 Skilled Treatment [...] Observed: 10/30/2024 1:27 PM Status: COMPLETED Source: [facility] HNO ID: [id number] Author: SYED LEI MD Service: Hospital Medicine Author Type: Physician Type: Progress Notes Filed: 10/30/2024 13:29 Note Text: DEPARTMENT OF HOSPITAL MEDICINE PROGRESS NOTE SERVICE DATE: 10/30/2024 SERVICE TIME: 1:27 PM Hospital Medicine/Primary Attending: Syed Lei,* NIGHT AND WEEKEND COVERAGE: [place] [facility]: Days: [phone], please page attending physician. Nights: [phone], please page [place] [facility] Night coverage pager [phone]. Subjective INTERVAL HPI: Seen and examined, patient [...] plan for bronchoscopy and biopsy at [facility]. Patient was also evaluated by [...] consulted Heme-onc follow-up outpatient Bronchoscopy at [facility] Completed. Cultures pending Anemia Present [...] Yes Medication and Non-Pharmacologic VTE Prophylaxis/Anticoagulants 10/24/24 4825 activity - mobilize patient (ny,oh) VTE Prophylaxis: VTE prophylaxis appropriate Disposition: To be determined Plan of care discussed with Provider, RN, Patient Plan communicated to: Patient SIGNATURE: Syed Lei MD, MD PATIENT NAME: Stevie Angeles DATE:10/30/24 TIME:1:29 PM PROGRESS Observed: 10/30/2024 10:03 AM Status: COMPLETED Source: [facility] HNO ID: [id number] Author: HAILE ALFARO JR, MD Service: Critical [...] hyperlipidemia Prostate cancer (HCC) 2020 xrt at [facility] [place] Smoker former quit 2021 Spinal stenosis of [...] -- MG -- 2.2 ABG: Invalid input(s): P5ANPTNR Assessment/Plan ICU Checklist A= Assess, Prevent, Manage [...] Observed: 10/30/2024 7:19 AM Status: COMPLETED Source: [facility] ID: [id number] Author: KURT PEREIRA MD Service: Infectious Disease [...] malignant. Plan on performing bronchoscopy/EBUS at [facility] on 10/29. Will continue with [...] reviewed Imaging data: reviewed Kurt Pereira MD [phone] 10/30/2024 7:53 AM ALLIED HEALTH Observed: 10/29/2024 4:00 PM Status: COMPLETED Source: [facility] ID: [id number] Author: JAQUAN HOLLAND RT(R) Service: Radiology Author [...] PATIENT PRESENTS WITH AN IMPLANTABLE OR ATTACHED TRAIN STATION AGENT: No RADIOLOGY DEPARTMENT: General X-ray: Exam(s) Completed: Chest X-Ray PERIPHERAL IV DATA: Not applicable SIGNED BY: RT Kamar(R) November 04, 2024 3:42 PM PROGRESS Observed: 10/29/2024 3:05 PM Status: COMPLETED Source: [facility] HNO ID: [id number] Author: SYED LEI MD Service: Hospital Medicine Author Type: Physician Type: Progress Notes Filed: 10/29/2024 15:06 Note Text: DEPARTMENT OF HOSPITAL MEDICINE PROGRESS NOTE SERVICE DATE: 10/29/2024 SERVICE TIME: 3:05 PM Hospital Medicine/Primary Attending: Syed Lei,* NIGHT AND WEEKEND COVERAGE: [place] COVERAGE: Days: [phone], please page attending physician. Nights: [phone], please page [place] Hospitalist Night coverage pager [phone]. Subjective INTERVAL HPI: Seen and examined, patient was resting. Patient very hard of hearing. Communicated via writing on board. No new complaints. Denies nausea, vomiting, abdominal pain chest pain. Patient to go to [facility] for bronchoscopy and to come [...] plan for bronchoscopy and biopsy at [facility]. Patient was also evaluated by [...] consulted Heme-onc follow-up outpatient Bronchoscopy [facility] today Anemia Present on Admission: Yes Hgb [...] Prophylaxis/Anticoagulants 10/24/24 2245 activity - mobilize patient (ny,[place]) VTE Prophylaxis: VTE prophylaxis appropriate Disposition: To be determined Plan of care discussed with Provider, RN, Patient Plan communicated to: Patient SIGNATURE: Syed Lei MD, MD PATIENT NAME: Stevie Angeles DATE:10/29/24 TIME:3:06 PM ANES POSTPROC EVAL Observed: 10/29/2024 2:42 PM Status: COMPLETED Source: [facility] HNO ID: [id number] Author: BEATRICE THRASHER MD Service: ? Author Type: Anesthesiologist Type: Anesthesia Postprocedure Evaluation Filed: 10/29/2024 14:42 Note Text: POST ANESTHESIA EVALUATION NOTE : 1950 Procedure Summary Date: 10/29/24 Room / Location: [facility] B- / PUL LAB H23 Anesthesia Start: [...] this procedure. Documented by Pedro Patel V, APRN.COMPENSATION AND BENEFITS ANALYST 10/29/2024 2:17 PM EDT SIGNATURE: Beatrice Thrasher MD PATIENT NAME: Stevie Angeles DATE: October 29, 2024 TIME: 2:42 PM CSN: [id number] ANES PROCEDURE NOTE Observed: 10/29/2024 12:51 PM Status: COMPLETED Source: [facility] HNO ID: [id number] Author: PEDRO PATEL APRN.COMPENSATION AND BENEFITS ANALYST Service: ? Author Type: Nurse Branch Employment Coordinator Type: Anesthesia Procedure Notes Filed: 10/29/2024 12:53 Note Text: ANESTHESIOLOGY PROCEDURE NOTE Airway General Information Procedure Start Time/Medication Administration: 10/29/2024 12:44 PM Procedure End Time: 10/29/2024 12:44 PM Patient location during procedure: OR Timeout Performed Pre-procedure: timeout performed Consent Obtained: Yes Patient identity confirmed: arm band and care care team assistant Staffing Anesthesiologist: Beatrice Thrasher MD COMPENSATION AND BENEFITS ANALYST: Pedro Patel V, APRN.COMPENSATION AND BENEFITS ANALYST Performed by: THANH Indications and Patient Condition [...] per Dr. Carter's request SIGNATURE: Pedro Patel APRN.COMPENSATION AND BENEFITS ANALYST PATIENT NAME: Stevie Angeles DATE: October 29, 2024 TIME: 12:51 PM CSN: [id number] RESP PATH DNA+RNA PNL NPH WENDY+PROBE Collected: 10/29/2024 12:29 PM Status: F Source: [facility] Order Comment: Specimen Type : SPECIMEN OBTAINED BY LAVAGE Ordering Facility: [facility] Address: [address] [place] [address] TYPE CODE TESTS RESULT OUT OF RANGE REFERENCE UNITS LAB 01928-1(LOINC) SARS-CoV-2 RNA Spec Ql WENDY+probe Not detected See comment LAB 26489-0(LOINC) FLUAV RNA Spec Ql WENDY+probe Not detected Not detected LAB 01677-9(LOINC) FLUBV RNA Spec Ql WENDY+probe Not detected Not detected LAB 56227-0(LOINC) RSV RNA Upper resp Ql WENDY+probe Not detected Not detected LAB 49417-1(LOINC) hMPV RNA Spec Ql WENDY+probe Not detected Not detected LAB 48799-4(LOINC) Rhinovirus 5' UTR RNA Nph Ql WENDY+probe Not detected Not detected LAB 99008-6(LOINC) Adenovirus hexon gene Nph Ql WENDY+probe Not detected Not detected LAB 67709-8(LOINC) HPIV1 RNA Spec Ql WENDY+probe Not detected Not detected LAB 90169-3(LOINC) HPIV2 RNA Spec Ql WENDY+probe Not detected Not detected LAB 99665-7(LOINC) HPIV3 RNA Spec Ql WENDY+probe Not detected Not detected LAB 03946-8(LOINC) HPIV4 P gene Nph Ql WENDY+probe Not detected Not detected LAB 77475-0(LOINC) HCoV 229E+OC43 RNA Nph Ql WENDY+probe Not detected Not detected LAB 27623-2(LOINC) HCoV OC43 RNA Spec Ql WENDY+probe Not detected Not detected LAB 59533-8(LOINC) HCoV NL63 RNA Nph Ql WENDY+non-probe Not detected Not detected LAB 00878-4(LOINC) HCoV HKU1 RNA Spec Ql WENDY+probe Not detected Not detected LAB 21795-0(LOINC) C pneum DNA Spec Ql WENDY+probe Not detected Not detected LAB 61029-4(LOINC) M pneumo DNA Spec Ql WENDY+probe Not detected Not detected Performed By: #### 73488-0 # ### [facility] CLIA [id number] [address] [place] [address] [place] ASPERGILLUS GALACTOMANNAN BAL Collected : 10/29/2024 12:29 PM Status: F Source: [facility] Order Comment: Specimen Type : SPECIMEN OBTAINED BY LAVAGE Ordering Facility: [facility] Address: [address] [place] [address] TYPE CODE TESTS RESULT OUT OF RANGE [...] Value Performed By: #### ASGALB ## ## [facility] CLIA [id number] [address] [place] [address] [place] PNEUMOCYSTIS JIROVECII PCR Collected: 0 10/29/2024 12:29 PM Status: F Source: [facility] Comment: Specimen Type : SPECIMEN OBTAINED BY LAVAGE Ordering Facility: [facility] Address: [address] [place] [address] TYPE CODE TESTS RESULT OUT OF RANGE REFERENCE UNITS LAB 11233-7(LOINC) P jiroveci DNA # Spec WENDY+probe Not detected Pneumocystis jirovecii Not Detected by PCR Performed By: #### PJPCR ### # [facility] CLIA [id number] [address] [place] [address] [place] L PNEUMO DNA SPEC QL WENDY+PROBE Collecte d: 10/29/2024 12:29 PM Status: F Source: [facility] Comment: Specimen Type : SPECIMEN OBTAINED BY LAVAGE Ordering Facility: [facility] Address: [address] [place] [address] TYPE CODE TESTS RESULT OUT OF RANGE REFERENCE UNITS LAB 039716-2(LOINC) Legionella spp Spec Ql WENDY+probe Not detected Not detected Performed By: #### 67615-4 # ### [facility] CLIA [id number] [address] [place] [address] [place] BAL ROUTINE BFL Collected: 12:29 PM Status: F Source: [facility] Comment: Specimen Type : SPECIMEN OBTAINED BY LAVAGE Ordering Facility: [facility] Address: [address] [place] [address] TYPE CODE TESTS RESULT OUT OF RANGE REFERENCE UNITS LAB 41792-5(LOINC) Color Bronch Slightly bloody Abnormal Colorless LAB 16962-3(LOINC) Clarity Spec Cloudy Abnormal Clear LAB 47529-4(LOINC) RBC #/area BAL HPF 9896 Reference range not established. /uL Result Comment: Results veri fied by dilution. LAB 95642-9(LOINC) WBC # Bronch Manual 3071 Reference range not established. /uL Result Comment: Results veri fied by dilution. LAB BALCOM BAL COMMENT Clumped on chamber Performed By: #### [id number], BALAVI #### [facility] CLIA [id number] [address] [place] [address] [place] BAL MANUAL DIFF Collected: 12:29 PM Status: F Source: [facility] Order Comment: Specimen Type : SPECIMEN OBTAINED BY LAVAGE Ordering Facility: [facility] Address: [address] [place] [address] TYPE CODE TESTS RESULT OUT OF RANGE REFERENCE UNITS LAB BADFTT DIF TTL, BA LAVAGE 100 cells counted LAB BANEUT NEUT%, BA LAVAGE 96 % LAB BAMACR MACRO%, BA LAVAGE 4 % Performed By: #### [id number], BALAVI #### [facility] CLIA [id number] [address] [place] [address] [place] BACTERIA BAL AEROBE CULT Observed: 10/29 12:29 PM Status: F Source: [facility] ORGANISM ID: 1 2,000 CFU/mL Escherichia coli Refer to specimen collected on 10/29/2024 at 1146 [[id number]] GRAM STAIN: No organisms seen Few Polymorphonuclear leukocytes Performed By: #### 35244-4 # ### [facility] CLIA [id number] [address] [place] [address] [place] BACTERIA TISS CULT Observed: 10/29/2024 12:08 PM Status: F Source: [facility] ORGANISM ID: 1 Few Escherichia coli GRAM [...] Performed By: #### 635-3, 43 408-4 #### [facility] CLIA [id number] [address] [place], [place] [address] [place] BACTERIA SPEC ANAEROBE CULT Observed: 10/29/2024 12:08 PM Status: F Source: [facility] CULTURE, ANAEROBE: Negative for anaerobes. Performed By: #### 635-3, 43 408-4 #### [facility] CLIA [id number] [address] [place], [place] [address] [place] PD-L1 22C3 Collected: 12:02 PM Status: F Source: [facility] Order Comment: Specimen Type : TISSUE SPECIMEN Ordering Facility: [facility] Address: [address] [place] [address] TYPE CODE TESTS RESULT OUT OF RANGE REFERENCE UNITS LAB [id number] PD-L1 22C3 TPS (LUNG) INTERPRETATION Negative (less than 1%) LAB [id number] TUMOR PROPORTION SCORE (TPS) <1 LAB [id number] PD-L1 TUMOR TYPE Other (See Comment) Result Comment: See original report LAB [id number] [facility] CASE NUMBER PD-L1 [id number] LAB [id number] FIXATIVE LAB [id number] BIOMARKER INTERPRETATION COMMENT AND REFERENCE RANGE Result [...] Product label for additional information. KEYTRUDA - (https://www.Waitsup.com/prescribing-information/) LIBTAYO - (https://www.[employer]/sites/default/files/Libtayo_FPI.pdf) LAB [id number] BIOMARKER METHOD Immunohistochemistry was performed on formalin fixed paraffin-embedded tissue using the mouse monoclonal antibody 22C3 ([employer]; [place], [place]) followed by ultrasensitive bright field detection (Optiview with amplification [[employer], [place]]). LAB [id number] AP BIOMARKER DISCLAIMER Result Comment: Laboratory Developed Test (LDT) Disclaimer: Performance characteristics of immunohistochemical, immunofluorescent and chromogenic in-situ hybridization tests have been determined by the performing laboratory within [facility] Pathology and Laboratory Medicine Department ([facility], [facility], [facility], [facility], [facility], [facility], or [facility]) in a manner consistent with CLIA requirements. One or more of these tests have not been cleared or approved by the FDA. [facility] is regulated under CLIA as qualified to perform high-complexity testing. These tests are used for clinical purposes. They should not be regarded as investigational or for research. Positive and negative controls stain appropriately. LAB [id number] AP BLOCK ID A1 LAB FPLAB FINAL PERFORMING LAB Result Comment: Diagnostic i nterpretation performed at: [facility], [address] [place] [address], [facility] [place] [address] CLIA# [id number] Knitting Inspector: Ike Reaves MD Electronically signed out by: Alexis Altman MD Performed By: #### [id number] # ### [facility] CLIA [id number] [address] [place] [address] OF [facility] TISS PATH BX REPORT Collected: 10/30/19 12:02 PM Status: F Source: [facility] Order Comment: Specimen Type : TISSUE SPECIMEN Ordering Facility: [facility] Address: [address] [place] [address] TYPE CODE TESTS RESULT OUT OF RANGE REFERENCE UNITS PATHOLOGY [id number] CASE REPORT Result Comment: Surgical Pat hology Report Case: [id number] Authorizing Provider: Siddharth Carter MD Collected: 10/29/2024 12:02 PM Ordering Location: Admitting Received: 10/29/2024 06:38 PM Pathologist: Alexis Altman MD Specimens: A) - Bronchus, Biopsy, RLL EBBX B) - Bronchus, Biopsy, RUL TBBX PATHOLOGY [id number] FINAL DIAGNOSIS Result Comment: A. Lung, rig ht lower lobe, endobronchial biopsy: -Keratinizing squamous cell carcinoma. B. Lung, right upper lobe, transbronchial biopsy: -Necroinflammatory exudate, and occasional scattered degenerated, poorly preserved atypical epithelial cells (see comment). -Bronchial mucosa, granulation tissue, rare multinucleated giant cells, (see comment), at 1745 EDT PATHOLOGY [id number] DIAGNOSIS COMMENT Result Comment: Immunostains for keratin AE1/AE3, p40 and SMA were performed on B1: Keratin AE1/AE3 highlights preserved degenerated atypical cells that are negative for p40 and SMA. GMS stain was performed on B1: No fungal organisms were identified. PATHOLOGY [id number] GROSS DESCRIPTION Result Comment: A. Bronchus, Biopsy Received in formalin are multiple pieces of lcark-red, soft tissue aggregating to 0.9 x 0.5 x 0.2 cm. Totally submitted in cassette A1. B. Bronchus, Biopsy Received in formalin are multiple pieces of clark-brown, soft tissue aggregating to 2.7 x 0.5 x 0.2 cm. Totally submitted in cassette B1. DL 10/29/24 8:03 PM. Gross examination performed at [facility], [address] [place] [address]. 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 RLL endobronchial disease at stump. Purulent secretison from RUL. PATHOLOGY FPLAB FINAL PERFORMING LAB Result Comment: Diagnostic i nterpretation performed at: [facility], [address] [place] [address] CLIA# [id number] Knitting Inspector: Ike Reaves MD PATHOLOGY [id number] AP DISCLAIMER Result Comment: Laboratory D eveloped Test (LDT) Disclaimer: Performance characteristics of immunohistochemical, immunofluorescent, and chromogenic in-situ hybridization tests have been determined by the performing laboratory within the [facility] Department of Pathology and Laboratory Medicine ([facility], [facility], [facility], [facility], [facility], [facility], or [facility]) in a manner consistent with CLIA requirements. One or more of these tests may not have been cleared or approved by the FDA. The [facility] Department of Pathology and Laboratory Medicine is regulated under CLIA as qualified to perform high-complexity testing. These tests are used for clinical purposes. These should not be regarded as investigational or for research. Positive and negative controls stain appropriately. Performed By: #### 49900-5 # ### [facility] CLIA [id number] [address] [place] [address] [place] CYTOLOGY NON-REAL ESTATE SPECIALIST Collected: 11:54 AM Status: F Source: [facility] Order Comment: Specimen Type : SPECIMEN OBTAINED BY ASPIRATION Ordering Facility: [facility] Address: [address] [place] [address] TYPE CODE TESTS RESULT OUT OF RANGE REFERENCE UNITS PATHOLOGY [id number] CASE REPORT Result Comment: Medical Cyto logy Report Case: [id number] Authorizing Provider: Siddharth Carter MD Collected: 10/29/2024 [...] Lobe, Transbronchial, right upper lobe consolidation PATHOLOGY [id number] FINAL DIAGNOSIS Result Comment: A - Lung, [...] Block, Alcohol Fixed at 1605 T PATHOLOGY [id number] DIAGNOSIS COMMENT The patient's history of prior [...] and Hernesto agree with the diagnosis. PATHOLOGY [id number] GROSS DESCRIPTION Result Comment: A. Lung, Rig [...] HISTORY Right lobe squamous cell carcinoma PATHOLOGY [id number] ADEQUACY INTERPRETATION Result Comment: A: #1-2: Karin picious for squamous cell carcinoma B: #1-3: [...] discrete evaluation episode. Intra-procedural assessment performed at [facility], [facility] [place] [address] PATHOLOGY ORDERC ORDER COMMENT Result Comment: Pre-op diagn osis: Bronchiolar disease [J98.09] PATHOLOGY FPLAB FINAL PERFORMING LAB Result Comment: Technical co mponent, drill bit sharpener screening performed at: [facility], [address] [place] [address] CLIA: [id number] Diagnostic interpretation performed at: [facility], [address] [place] [address] CLIA# [id number] Knitting Inspector: Ike Reaves MD PATHOLOGY [id number] AP DISCLAIMER Result Comment: Laboratory D eveloped Test (LDT) Disclaimer: Performance characteristics of immunohistochemical, immunofluorescent, and chromogenic in-situ hybridization tests have been determined by the performing laboratory within the [facility] Department of Pathology and Laboratory Medicine ([facility], [facility], [facility], [facility], [facility], [facility], or [facility]) in a manner consistent with CLIA requirements. One or more of these tests may not have been cleared or approved by the FDA. The [facility] Department of Pathology and Laboratory Medicine is regulated under CLIA as qualified to perform high-complexity testing. These tests are used for clinical purposes. These should not be regarded as investigational or for research. Positive and negative controls stain appropriately. Performed By: #### CYTONON # ### [facility] CLIA [id number] [address] [place] [address] [place] ANES PROCEDURE NOTE Observed: 10/29/2024 11:50 AM Status: COMPLETED Source: [facility] HNO ID: [id number] Author: PEDRO PATEL APRN.COMPENSATION AND BENEFITS ANALYST Service: ? Author Type: Nurse Branch Employment Coordinator Type: Anesthesia Procedure Notes Filed: 10/29/2024 11:51 Note Text: ANESTHESIOLOGY PROCEDURE NOTE Airway General Information Procedure Start Time/Medication Administration: 10/29/2024 11:37 AM Procedure End Time: 10/29/2024 11:37 AM Patient location during procedure: OR Timeout Performed Pre-procedure: timeout performed Consent Obtained: Yes Patient identity confirmed: arm band, patient and care care team assistant Staffing Anesthesiologist: Beatrice Thrasher MD COMPENSATION AND BENEFITS ANALYST: Pedro Patel V, APRN.COMPENSATION AND BENEFITS ANALYST Performed by: COMPENSATION AND BENEFITS ANALYST Indications and Patient Condition Indications for airway management: anesthesia Preoxygenated: yes anesthesia circuit Patient position: sniffing Method: sleep Cricoid Pressure: No Difficult mask ventilation: not attempted, large krause. Final Airway Details Final airway type: endotracheal airwayFinal Endotracheal Airway: ETT Cuffed: yes Successful intubation technique: video laryngoscopy Devices used: Pepscan Endotracheal tube insertion site: oral Blade size: #4 ETT size (mm): 8.5 Measured from: lips Measurement (cm): 24 Placement verified by: capnometry Cormack-Lehane Classification: grade I - full view of glottis Number of attempts at approach: 1 Failed airway: no Unrecognized esophageal intubation: no Airway not difficult SIGNATURE: Pedro Patel APRN.CRNA PATIENT NAME: Stevie Angeles DATE: October 29, 2024 TIME: 11:50 AM CSN: [id number] BACTERIA SPEC RESP CULT Observed: 2024 11:46 AM Status: F Source: [facility] ORGANISM ID: 1 Few Escherichia coli GRAM STAIN: No organisms seen Many Red Blood Cells Many Polymorphonuclear leukocytes ORGANISM ID: 1 (ESCHERICHIA COLI) ----- ----- ANTIBIOTIC INTERPRETATION DHIARJ STATUS REFERENCE RANGE ----- ----- Ampicillin S [...] >=.5 , Resistant >=1 Performed By: #### 12446-1 # ### [facility] CLIA [id number] [address] [place] [address] [place] ANES PRE-OP Observed: 10/29/2024 11:29 AM Status: COMPLETED Source: [facility] HNO ID: [id number] Author: BEATRICE THRASHER MD Service: ? Author Type: Anesthesiologist Type: Anesthesia Preprocedure Evaluation Filed: 10/29/2024 11:32 Note Text: ANESTHESIOLOGY DAY OF SURGERY NOTE : 1950 Procedure Information Date/Time: 10/29/24 1330 Procedure: BRONCHOSCOPY FLEXIBLE ADULT (Bronchus) - PTP Tier 2 BAL+TBBX+TBNA of RUL cavity +/- Staging EBUS [id number] [facility] Location: PUL B-02 / PUL LAB [...] and consent discussed: yes. Patient / Responsible [employer] agrees to proceed: yes Patient / [...] October 29, 2024 TIME: 11:29 AM CSN: [id number] BRONCHOSCOPY Observed: 10/29/2024 11:09 AM Status: F Source: [facility] Patient Name: Stevie Angeles Procedure Date: 10/29/2024 [...] Observed: 10/29/2024 9:25 AM Status: COMPLETED Source: [facility] ID: [id number] Author: MARYCARMEN CHRISTOPHER RN Service: Nursing Author Type: Registered Nurse Type: Nursing Progress Note Filed: 10/29/2024 09:26 Note Text: Other: Called [facility] for report , as per nurse report was already called this am . CASE MANAGEM Observed: 10/29/2024 9:02 AM Status: COMPLETED Source: [facility] HNO ID: [id number] Author: GRACIELA SIFUENTES RN Service: Care Management Author Type: Registered Nurse Type: Care Mgt Progress Note Filed: 10/29/2024 09:04 Note Text: CARE MANAGEMENT PROGRESS NOTE SERVICE DATE: 10/29/2024 SERVICE TIME: 9:02 AM LOS: 5 days Needs Prior to Discharge: To Be Determined EMR reviewed. Patient scheduled to go on [place] to [facility] today for Bronch. 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 Cavitary lesion RUL, infection vs malignancy. Hx Lung Cancer RLL s/p Lobectomy 10/2023. On IV ATB. On RA. SVT, Paroxysmal A Fib. Now SR. Pulmonology and ID following. Cardiology signed off. SIGNATURE: Graciela Sifuentes RN PATIENT NAME: Stevie Angeles DATE: October 29, 2024 TIME: 9:02 AM CONSULT PROG Observed: 10/29/2024 7:53 AM Status: COMPLETED Source: [facility] ID: [id number] Author: KURT PEREIRA MD Service: Infectious Disease Author Type: Physician Type: Consult Progress Note Filed: 10/29/2024 11:54 Note Text: INFECTIOUS DISEASE PROGRESS NOTE Patient Name: Stevie Angeles INTERVAL HISTORY: Going to [facility] for Bronch today w [place]. [...] malignant. Plan on performing bronchoscopy/EBUS at [facility] on 10/29. Will continue with [...] reviewed Imaging data: reviewed Kurt Pereira MD [phone] 10/29/2024 7:53 AM PT PNL PPP Collected: 10/28/2024 2:27 PM Status: F Source: [facility] Order Comment: Specimen Type : BLOOD SPECIMEN Ordering Facility: [facility] Address: [address] [place] [address] TYPE CODE TESTS RESULT OUT OF RANGE REFERENCE UNITS LAB 5902-2(LOINC) Prothrombin time 11.9 9.7-13.0 sec LAB 6301-6(LOINC) INR PPP 1.1 0.9-1.3 Result Comment: Vitamin K An tagonist (VKA) Therapeutic Range: INR 2 to 3 (Target INR of 2.5) Note: For patients treated with VKA drugs, such as warfarin, the [place] [employer] 2012 Guideline recommends [...] Chest 2012, 141:7S-47S Vicki RA, et al. [facility] 2017, 70: 252-289 Performed By: #### 76322-9 # ### [facility] CLIA [id number] [address] [place] [address] [place] PROGRESS Observed: 10/28/2024 1:13 PM Status: COMPLETED Source: [facility] HNO ID: [id number] Author: SYED LEI MD Service: Hospital Medicine Author Type: Physician Type: Progress Notes Filed: 10/28/2024 13:20 Note Text: DEPARTMENT OF HOSPITAL MEDICINE PROGRESS NOTE SERVICE DATE: 10/28/2024 SERVICE TIME: 1:13 PM Hospital Medicine/Primary Attending: Syed Lei,* NIGHT AND WEEKEND COVERAGE: [place] [facility]: Days: [phone], please page attending physician. Nights: [phone], please page [place] Hospital[facility] Night coverage pager [phone]. Subjective INTERVAL HPI: Seen and examined, patient [...] plan for bronchoscopy and biopsy at [facility]. Patient was also evaluated by [...] Prophylaxis/Anticoagulants 10/24/24 2245 activity - mobilize patient ([place], [place]) VTE Prophylaxis: VTE prophylaxis appropriate Disposition: To be determined Plan of care discussed with Provider, RN, Patient Plan communicated to: Patient SIGNATURE: Syed Lei MD, MD PATIENT NAME: Stevie Angeles DATE:10/28/24 TIME:1:20 PM CONSULT PROG Observed: 10/28/2024 12:56 PM Status: COMPLETED Source: [facility] HNO ID: [id number] Author: MAUREEN SHERMAN RPh Service: Pharmacy Author [...] pharmacy if there are questions. Maureen Sherman [facility] CONSULT PROG Observed: 10/28/2024 12:52 PM Status: COMPLETED Source: [facility] HNO ID: [id number] Author: KURT PEREIRA MD Service: Infectious Disease [...] malignant. Plan on performing bronchoscopy/EBUS at [facility] on 10/29. Will continue with [...] Observed: 10/28/2024 11:00 AM Status: COMPLETED Source: [facility] HNO ID: [id number] Author: MAUREEN SHERMAN [facility] Service: Pharmacy Author Type: Pharmacist Type: Consult [...] have any questions, please contact pharmacy at [phone]. Age: [age] year old Allergies: ALLERGIES No [...] Collected: 02/2024 9:53 AM Status: F Source: [facility] Order Comment: Specimen Type : BLOOD SPECIMEN Ordering Facility: [facility] Address: [address] [place] [address] TYPE CODE TESTS RESULT OUT OF RANGE REFERENCE UNITS LAB 2345-7(LOINC) Glucose SerPl-mCnc 117 High 74-99 mg/dL Result Comment: The [place] [employer] Association (ADA) provides guidance for cutoff [...] Standards of Medical Care in Diabetes 2016, [place] [employer]. Diabetes Care. 2016.39(Suppl 1). LAB 3094-0(LOINC) BUN SerPl-mCnc 9 9-24 mg/dL LAB 2160-0(LOINC) Creat SerPl-mCnc 0.78 0.73-1.22 mg/dL LAB 2951-2(LOINC) Sodium SerPl-sCnc 141 136-144 mmol/L LAB 2823-3(LOINC) Potassium SerPl-sCnc 3.7 3.7-5.1 mmol/L LAB 2075-0(LOINC) Chloride SerPl-sCnc 107 98-107 mmol/L LAB 2027-9(LOINC) CO2 SerPl-sCnc 24 22-30 mmol/L LAB 77639-9(LOINC) Anion Gap SerPl-sCnc 10 8-15 mmol/L LAB 59143-1(LOINC) Calcium SerPl-mCnc 8.7 8.5-10.2 mg/dL LAB 82363-0(LOINC) eGFRcr SerPlBld CKD-EPI 2020 95 >=60 mL/min/1. [...] accurately reflect actual GFR. Performed By: #### 28516-5, 91899-8, 27073-0, 6-4 #### [facility] CLIA [id number] [address] MAGNESIUM SERPL-MCNC Collected: 10/28/2024 9:53 AM S tatus: F Source: [facility] Order Comment: Specimen Type : BLOOD SPECIMEN Ordering Facility: [facility] Address: [address] [place] [address] TYPE CODE TESTS RESULT OUT OF RANGE REFERENCE UNITS LAB 65436-4([facility]) Magnesium SerPl-mCnc 2.2 1.7-2.3 mg/dL Performed By: #### 03701-8, 75714-2, 89879-9, 2275-4 #### [facility] CLIA [id number] [address] IRON+TIBC PNL SERPL Collected: 10/28/2024 9:[address] atus: F Source: [facility] Order Comment: Specimen Type : BLOOD SPECIMEN Ordering Facility: [facility] Address: [address] [place] [address] TYPE CODE TESTS RESULT OUT OF RANGE REFERENCE UNITS LAB 2498-4(LOINC) Iron SerPl-mCnc 17 Low 41-186 ug/dL LAB 2500-7(LOINC) TIBC SerPl-mCnc 133 Low 232-386 ug/dL LAB 77433-4(LOINC) Iron/TIBC SerPl-sRto 12.8 Low 15.0-57.0 % Performed By: #### 44951-1, 18426-7, 80093-5, 6-4 #### [facility] CLIA [id number] [address] FERRITIN SERPL-MCNC Collected: 10/28/2024 9:[address] atus: F Source: [facility] Order Comment: Specimen Type : BLOOD SPECIMEN Ordering Facility: [facility] Address: [address] [place], [place] [address] TYPE CODE TESTS RESULT OUT OF RANGE REFERENCE UNITS LAB 6-4(INC) Ferritin SerPl-mCnc 1133.0 High 30.3-565.7 ng/mL Performed By: #### 96133-0, 87731-1, 82206-9, 6-4 #### [facility] CLIA [id number] [address] CBC PNL BLD AUTO Collected: 10/28/2024 9:53 AM Statu s: F Source: [facility] Order Comment: Specimen Type : BLOOD SPECIMEN Ordering Facility: [facility] Address: [address] [place] [address] TYPE CODE TESTS RESULT OUT OF RANGE [...] MCHC RBC Auto-mCnc 32.8 30.5-36.0 g/dL LAB 10379-6(LOINC) RDW RBC-Rto 14.6 11.5-15.0 % LAB 777-3(LOINC) Platelet # Bld Auto 394 150-400 k/uL LAB 83076-5(LOINC) PMV Bld Auto 8.6 Low 9.0-12.7 fL LAB 771-6(LOINC) nRBC # Bld Auto <0.01 <0.01 k/uL Performed By: #### 49090-3 # ### [facility] CLIA [id number] [address] VANCOMYCIN RAND SERPL-MCNC Collected: 10/28/2024 9:53 AM Status: F Source: [facility] Order Comment: Specimen Type : BLOOD SPECIMEN Ordering Facility: [facility] Address: [address] [place] [address] TYPE CODE TESTS RESULT OUT OF RANGE REFERENCE UNITS LAB 4091-5([facility]) Vancomycin [place] SerPl-mCnc 11.9 10.0-20.0 ug/mL Result Comment: Reference ra nges and high/low indicator flags are provided as general guidelines only. The treating physician must determine appropriate target levels/dosing based on the specific clinical situation. Performed By: #### 4091-5 ## ## [facility] CLIA [id number] [address] PROGRESS Observed: 10/27/2024 12:56 PM Status: COMPLETED Source: [facility] HNO ID: [id number] Author: SYED LEI MD Service: Hospital Medicine Author Type: Physician Type: Progress Notes Filed: 10/27/2024 12:58 Note Text: DEPARTMENT OF HOSPITAL MEDICINE PROGRESS NOTE SERVICE DATE: 10/27/2024 SERVICE TIME: 12:56 PM Hospital Medicine/Primary Attending: Syed Lei,* NIGHT AND WEEKEND COVERAGE: [place] [employer]: Days: [phone], please page attending physician. Nights: [phone], please page [place] Hospitalist Night coverage pager [phone]. Subjective INTERVAL HPI: Seen and examined, patient [...] plan for bronchoscopy and biopsy at [facility]. Patient was also evaluated by [...] 1059 10/24/24 2245 activity - mobilize patient ([place], [place]) VTE Prophylaxis: VTE prophylaxis appropriate Disposition: To be determined Plan of care discussed with Provider, RN, Patient Plan communicated to: Patient SIGNATURE: Syed Lei MD, MD PATIENT NAME: Stevie Angeles DATE: October 27, 2024 TIME: 12:58 PM BAS METAB 1999 PNL SERPL Collected: 6:29 AM Status: F Source: [facility] Order Comment: Specimen Type : BLOOD SPECIMEN Ordering Facility: [facility] Address: [address] [place] [address] TYPE CODE TESTS RESULT OUT OF RANGE REFERENCE UNITS LAB 2345-7(LOINC) Glucose SerPl-nc 136 High 74-99 mg/dL Result Comment: The [place] Diabetes Association (ADA) provides guidance for cutoff [...] Standards of Medical Care in Diabetes 2016, [place] [employer]. Diabetes Care. 2016.39(Suppl 1). LAB 3094-0(LOINC) BUN SerPl-mCnc 8 Low 9-24 mg/dL LAB 2160-0(LOINC) Creat SerPl-mCnc 0.54 Low 0.73-1.22 mg/dL LAB 2951-2(LOINC) Sodium SerPl-sCnc 134 Low 136-144 mmol/L LAB 2823-3(LOINC) Potassium SerPl-sCnc 3.7 3.7-5.1 mmol/L LAB 2075-0(LOINC) Chloride SerPl-sCnc 103 98-107 mmol/L LAB 2027-9(LOINC) CO2 SerPl-sCnc 22 22-30 mmol/L LAB 08826-4(LOINC) Anion Gap SerPl-sCnc 9 8-15 mmol/L LAB 03023-1(LOINC) Calcium SerPl-mCnc 8.3 Low 8.5-10.2 mg/dL LAB 65205-4(LOINC) eGFRcr SerPlBld CKD-EPI 2020 106 >=60 mL/min/1. [...] accurately reflect actual GFR. Performed By: #### 19206-7, 06954-3 #### [facility] CLIA [id number] [address] [place] [address] [place] MAGNESIUM SERPL-MCNC Collected: 10/27/2024 6:29 AM S tatus: F Source: [facility] Order Comment: Specimen Type : BLOOD SPECIMEN Ordering Facility: [facility] Address: [address] [place] [address] TYPE CODE TESTS RESULT OUT OF RANGE REFERENCE UNITS LAB 97182-8(LOINC) Magnesium SerPl-mCnc 2.1 1.7-2.3 mg/dL Performed By: #### 43032-6, 25366-8 #### [facility] CLIA [id number] [address] CBC PNL BLD AUTO Collected: 10/27/2024 6:29 AM Statu s: F Source: [facility] Order Comment: Specimen Type : BLOOD SPECIMEN Ordering Facility: [facility] Address: [address] [place] [address] TYPE CODE TESTS RESULT OUT OF RANGE REFERENCE UNITS LAB 6690-2([facility]) WBC # Bld Auto 13.32 High 3.70-11.00 k/uL LAB 789-8(LOINC) RBC # Bld Auto 3.68 Low 4.20-6.00 m/uL LAB 718-7(LOINC) Hgb Bld-mCnc 11.2 Low 13.0-17.0 g/dL LAB 4544-3(INC) Hct VFr Bld Auto 34.5 Low 39.0-51.0 % LAB 787-2(LOINC) MCV RBC Auto 93.8 80.0-100.0 fL LAB 785-6(LOINC) MCH RBC Qn Auto 30.4 26.0-34.0 pg LAB 786-4(LOINC) MCHC RBC Auto-mCnc 32.5 30.5-36.0 g/dL LAB 06026-6(LOINC) RDW RBC-Rto 14.6 11.5-15.0 % LAB 777-3(LOINC) Platelet # Bld Auto 391 150-400 k/uL LAB 42721-3(LOINC) PMV Bld Auto 8.8 Low 9.0-12.7 fL LAB 771-6(LOINC) nRBC # Bld Auto <0.01 <0.01 k/uL Performed By: #### 66496-4 # ### [facility] CLIA [id number] [address] PROGRESS Observed: 10/26/2024 11:44 AM Status: COMPLETED Source: [facility] HNO ID: [id number] Author: SYED LEI MD Service: Hospital Medicine Author Type: Physician Type: Progress Notes Filed: 10/26/2024 11:57 Note Text: DEPARTMENT OF HOSPITAL MEDICINE PROGRESS NOTE SERVICE DATE: 10/26/2024 SERVICE TIME: 11:44 AM Hospital Medicine/Primary Attending: Syed Lei,* NIGHT AND WEEKEND COVERAGE: [place] [facility]: Days: [phone], please page attending physician. Nights: [phone], please page [place] Hospitalist Night coverage pager [phone]. Subjective INTERVAL HPI: Seen and examined, patient [...] Line Duration Peripheral 10/25/24 1146 [facility] Short Right Forearm 22 Gauge <1 day [...] plan for bronchoscopy and biopsy at [facility]. Patient was also evaluated by [...] 1059 10/24/24 2245 activity - mobilize patient ([place], [place]) VTE Prophylaxis: VTE prophylaxis appropriate Disposition: To be determined Plan of care discussed with Provider, RN, Patient Plan communicated to: Patient SIGNATURE: Syed Lei MD, MD PATIENT NAME: Stevie Angeles DATE: October 26, 2024 TIME: 11:44 AM CONSULT PROG Observed: 10/26/2024 10:26 AM Status: COMPLETED Source: [facility] HNO ID: [id number] Author: MAUREEN SHERMAN RPh Service: Pharmacy Author [...] have any questions, please contact pharmacy at [phone]. Age: [age] year old Allergies: ALLERGIES No [...] Value 10/26/2024 0845 8.6 (L) Salma Zelaya [facility] VANCOMYCIN RAND SERPL-MCNC Collected: 10/26/2024 8:45 AM Status: F Source: [facility] Order Comment: Specimen Type : BLOOD SPECIMEN Ordering Facility: [facility] Address: [address] [place] [address] TYPE CODE TESTS RESULT OUT OF RANGE REFERENCE UNITS LAB 4091-5(LOINC) Vancomycin [place] SerPl-mCnc 8.6 Low 10.0-20.0 ug/mL Result Comment: Reference ra nges and high/low indicator flags are provided as general guidelines only. The treating physician must determine appropriate target levels/dosing based on the specific clinical situation. Performed By: #### 4091-5 ## ## [facility] CLIA [id number] [address] [place], [place] [id number] [facility] CBC PNL BLD AUTO Collected: 10/26/2024 6:32 AM Statu s: F Source: [facility] Order Comment: Specimen Type : BLOOD SPECIMEN Ordering Facility: [facility] Address: [address] [place] [address] TYPE CODE TESTS RESULT OUT OF RANGE [...] MCHC RBC Auto-mCnc 33.1 30.5-36.0 g/dL LAB 31672-4([facility]) RDW RBC-Rto 14.6 11.5-15.0 % LAB 777-3([facility]) Platelet # Bld Auto 417 High 150-400 k/uL LAB 15671-4([facility]) PMV Bld Auto 8.8 Low 9.0-12.7 fL LAB 771-6([facility]) nRBC # Bld Auto <0.01 <0.01 k/uL Performed By: #### 06382-6 # ### [facility] CLIA [id number] [address] [place], [place] [address] [place] [address] BLOOD TB SCREEN Collected: 10/26/2024 6:32 AM Status : F Source: [facility] Order Comment: Specimen Type : BLOOD SPECIMEN Ordering Facility: [facility] Address: [address] [place] [address] TYPE CODE TESTS RESULT OUT OF RANGE REFERENCE UNITS LAB TBGNIL TB NIL 0.02 <=8.00 IU/mL LAB TBG1AG TB1 AG MINUS NIL 0.00 <0.35 IU/mL LAB TBG2AG TB2 AG MINUS NIL 0.00 <0.35 IU/mL LAB 39820-2([facility] ) M TB tuberc IFN-g Bld Ql [...] exposure. Performed By: #### INFTBP ## ## [facility] CLIA [id number] [address] [place] [address] HIV1+2 AB SERPL QL IA Collected: 2024 6:32 AM Status: F Source: [facility] Order Comment: Specimen Type : BLOOD SPECIMEN Ordering Facility: [facility] Address: [address] [place] [address] TYPE CODE TESTS RESULT OUT OF RANGE REFERENCE UNITS LAB 00899-0(LOINC) HIV 1+2 Ab+HIV1 p24 Ag SerPl Ql IA Nonreactive Nonreactive LAB 75007-0(INC) HIV 1 AND 2 Ab SerPlBld IA.rapid Result Comment: Test not ind icated. LAB 25533-0([facility]) HIV IA algorithm interp SerPlBld-Imp Result Comment: No evidence of HIV-1 or HIV-2 infection. Should recent infection be suspected, repeat testing may be considered 2-3 weeks after this draw. [place] Rev. Code 3701.243(E): This information has been [...] test results or diagnoses. Performed By: #### 85634-9 # ### [facility] CLIA [id number] [address] [place] [address] [place] BAS METAB 2000 PNL SERPL Collected: 6:32 AM Status: F Source: [facility] Order Comment: Specimen Type : BLOOD SPECIMEN Ordering Facility: [facility] Address: [address] [place] [address] TYPE CODE TESTS RESULT OUT OF RANGE REFERENCE UNITS LAB 2345-7(INC) Glucose SerPl-mCnc 114 High 74-99 mg/dL Result Comment: The [place] Diabetes Association (ADA) provides guidance for cutoff [...] Standards of Medical Care in Diabetes 2016, [place] [employer]. Diabetes Care. 2016.39(Suppl 1). LAB 3094-0(LOINC) BUN SerPl-mCnc 9 9-24 mg/dL LAB 2160-0(LOINC) Creat SerPl-mCnc 0.60 Low 0.73-1.22 mg/dL LAB 2951-2(LOINC) Sodium SerPl-sCnc 136 136-144 mmol/L LAB 2823-3(LOINC) Potassium SerPl-sCnc 3.9 3.7-5.1 mmol/L LAB 2075-0(LOINC) Chloride SerPl-sCnc 102 98-107 mmol/L LAB 202-9(LOINC) CO2 SerPl-sCnc 24 22-30 mmol/L LAB 03213-5(LOINC) Anion Gap SerPl-sCnc 10 8-15 mmol/L LAB 55713-5(LOINC) Calcium SerPl-mCnc 8.7 8.5-10.2 mg/dL LAB 96004-5(LOINC) eGFRcr SerPlBld CKD-EPI 2020 103 >=60 mL/min/1. [...] accurately reflect actual GFR. Performed By: #### 04625-0, 35725-3 #### [facility] CLIA [id number] [address] OF [facility] MAGNESIUM SERPL-MCNC Collected: 10/26/2024 6:32 AM S tatus: F Source: [facility] Order Comment: Specimen Type : BLOOD SPECIMEN Ordering Facility: [facility] Address: [address] [place] [address] TYPE CODE TESTS RESULT OUT OF RANGE REFERENCE UNITS LAB 73318-6(LOINC) Magnesium SerPl-mCnc 2.1 1.7-2.3 mg/dL Performed By: #### 58308-1, 16389-7 #### [facility] CLIA [id number] [address] LACTATE BLD-SCNC Collected: 10/25/2024 5:04 PM Statu s: F Source: [facility] Order Comment: Specimen Type : BLOOD SPECIMEN Ordering Facility: [facility] Address: [address] [place] [address] TYPE CODE TESTS RESULT OUT OF RANGE REFERENCE UNITS LAB 49413-8(LOINC) Lactate Bld-sCnc 2.0 0.5-2.2 mmol/L Performed By: #### 18467-1 # ### [facility] CLIA [id number] [address] CONSULT Observed: 10/25/2024 4:15 PM Status: COMPLETED Source: [facility] HNO ID: [id number] Author: ROBIN KNOX MD Service: Cardiovascular Medicine Author Type: Physician Type: Consults Filed: 10/25/2024 16:34 Note Text: . [facility] [place] [facility] Lamb Department of Cardiovascular Medicine SECTION OF [facility] Consultation Note Name: Stevie Angeles : 1950 Primary Physician: Praful Su MD Consulting Physician: Haile Barbosa MD Primary Snowmaker: SERVICE DATE: October 25, 2024 ADMISSION HISTORY [...] hyperlipidemia Prostate cancer (HCC) 2020 xrt at [facility] Smoker former quit 2021 Spinal stenosis of [...] lipid microspheres 1.1 mg/mL 1.3 mL injection (DEFINPhaseRx) 1.3 mL INTRAVENOUS DIRECTED PRN guaiFENesin 600 [...] phone with questions. Robin Knox MD, MPH, [facility] Cardiology Cell [phone] SIGNATURE: Robin Knox MD PATIENT NAME: Stevie [...] Observed: 10/25/2024 3:04 PM Status: COMPLETED Source: [facility] ID: [id number] Author: WILLARD BRISCOE MD Service: Infectious Disease [...] note or shared electronic medical record. HPI: Steive Angeles who is a 74 year old [...] or weight loss. Denies the being in retirement or any exposures to TB. PAST MEDICAL HISTORY Diagnosis Date Abdominal aortic aneurysm without rupture Elevated PSA Hearing loss HTN (hypertension) Lumbosacral neuritis Malignant neoplasm of prostate (HCC) Other and unspecified hyperlipidemia Prostate cancer (HCC) 2020 xrt at [facility] Smoker former quit 2021 Spinal stenosis of [...] COVID-19 original vaccine, age 12+ yr, monovalent ([employer] - PURPLE TOP) 05/26/2020 06/17/2020 02/04/2021 COVID-19 vaccine, age 12+ yr (MODERNA) 02/06/2024 COVID-19 vaccine, age 12+ yr ([employer] COMIRNATY) 02/14/2023 COVID-19 vaccine, age 12+ yr, bivalent ([employer]) 12/28/2021 influenza (HD-IIV3) vaccine, age 65+ yr, [...] Line Duration Peripheral 10/25/24 1146 [facility] Short Right Forearm 22 Gauge <1 day [...] malignant. Plan on performing bronchoscopy/EBUS at [facility] on 10/29. Will continue with [...] Observed: 10/25/2024 2:37 PM Status: COMPLETED Source: [facility] HNO ID: [id number] Author: ADRIANA OSCAR RN Service: Nursing Author Type: Registered Nurse Type: Nursing Progress Note Filed: 10/25/2024 14:38 Note Text: Spoke to Michele RN at hospitals: [facility]. Patient scheduled for a brynd-zi-lpjyj bronchoscopy on 2024. To be NPO after midnight prior to the procedure, hold anticoagulant as directed. Ok to give discussed medications with sip of water. Round-Trip transportation to be arranged by referring hospital staff. Patient to arrive at [facility] by 1030 AM on a stretcher/cart, escorted by medical personnel via ambulance. [facility] RN will call [phone]# for detailed report on the morning of the procedure. RN verbalized understanding. Call back number provided. PLAN OF CARE Observed: 10/25/2024 2:22 PM Status: COMPLETED Source: [facility] HNO ID: [id number] Author: WALI SLATER MD Service: Pulmonary Disease [...] See Robert Slater MD Interventional Pulmonary Pager: [phone] 10/25/24 PROGRESS Observed: 10/25/2024 1:24 PM Status: COMPLETED Source: [facility] HNO ID: [id number] Author: ?, ?, ? Service: ? Author Type: ? Type: Progress Notes Filed: 10/25/2024 13:26 Note Text: POPULATION HEALTH NAVIGATION OUTREACH Action/FYI Pt needs annual wellness visit , follow up 01/24/25 No HCCs Left voicemail for patient, Sent JamLegend message to the pt Reason for Outreach Care Gap/HCC or Scheduling Wellness Visits Care Gaps due: Medicare Annual Wellness Visit Follow-up Appointment Patient Contacted: Unable or unnecessary to reach patient: Left message HASHhart message sent Navigation Signature: Angelien Fan October 25, 2024 1:24 PM CASE MGT YOSVANY MARROQUIN Observed: 10/25/2024 11:54 AM Status: COMPLETED Source: [facility] HNO ID: [id number] Author: FARIDEH VIVEROS RN Service: Care Management [...] Relation: Son Admission Status: Inpatient Insurance Provider: [facility] MEDICARE PPO Discharge Planning requested by: Per Department Practice Potential Transition Plans Home, Home Care, Halfway Facility/Intermediate Care Facility, To Be Determined Advance Directives Current Advance Directive: Health Care Power of [employer] In Chart: Yes Up To Date and [...] None Discharge Planning Patient Goal(s): General wellness [place] of Choice Explained: [place] of Choice Given: No Reason Not Given: No placements necessary Are you interested in bedside delivery of your medications? No, [facility] [place] Discharge Planning Participant(s): Patient, Family Patient/Family Comments: Caregiver Assessment: Caregiver is ready, willing and able to meet the patient's needs as recommended by the inter-professional team: Other: See Comment (DC needs TBD.) Transport at Discharge: Transportation Arrangements: Car Needs Prior to Discharge: Needs Prior to Discharge: Other: See Comment, Procedure, To Be Determined (medical clearance) Procedure Needed: Bronch at [facility] Post-Acute Discharge Plan: EMR reviewed. PAtient admitted with A-flutter. Going to [facility] on Monday via [place] for procedure then will return. RNCM spoke to patient and his sister's to complete assessment. Patient from home alone, [employer], drives. Family to transport upon DC. CM assigned will continue to follow for DC planning needs. SIGNATURE: Farideh Viveros RN PATIENT NAME: Stevie nAgeles DATE: October 25, 2024 TIME: 11:54 AM BACTERIA SPEC RESP CULT Observed: 2024 10:54 AM Status: F Source: [facility] ORGANISM ID: 1 Rare Escherichia coli Insignificant colony count. No further workup. ORGANISM ID: 3 Few normal respiratory neema GRAM STAIN: Rare Mixed oral neema Rare Polymorphonuclear leukocytes Performed By: #### 10382-9 # ### [facility] CLIA [id number] [address] [place] [address] [place] CONSULT Observed: 10/25/2024 10:17 AM Status: COMPLETED Source: [facility] HNO ID: [id number] Author: DIA URENA MD Service: Pulmonary Disease [...] SCC: 1. Enlarging/hypermetabolic/cavitary RUL nodule c/w NSCLC, [id number], Stage IA3, s/p SBRT 02/01/24 [3400 cGy/1 [...] for point to point transfer to [facility] on MondayOctober 29 for bronchoscopy, [...] hyperlipidemia Prostate cancer (HCC) 2020 xrt at [facility] [place] Smoker former quit 2021 Spinal stenosis of [...] 384 QTC Calculation (Bazett) 467 Calculated R [place] 50 Calculated T [place] 50 Impression ATRIAL FIBRILLATION NONSPECIFIC ST AND T WAVE ABNORMALITY PROLONGED QT INTERVAL OR TU FUSION, CONSIDER HYPOKALEMIA ABNORMAL ECG Recent Results (from the past 20204 hours) ECHO Collection Time: 10/16/23 2:52 PM [...] IMPRESSION: Resolution of right hydropneumothorax since 07/01/2024 Field Technical Support Consultant: IMMANUEL Transcribe Date/Time: Aug 20 2024 11:10A Dictated by : IKE KERR MD This examination was interpreted and the report reviewed and electronically signed by: IKE KERR MD on Aug 20 2024 11:14AM EST XR CHEST 2V FRONTAL/LAT Result Date: 2024 IMPRESSION: No acute radiographic findings in the chest. Field Technical Support Consultant: [facility] Transcribe Date/Time: 2024 1:27P Dictated by : ALIYA BARRIENTOS MD This examination was interpreted and the report reviewed and electronically signed by: ALIYA BARRIENTOS MD on 2024 1:30PM EST XR CHEST 2V FRONTAL/LAT Result Date: 07/01/2024 IMPRESSION: See result. Field Technical Support Consultant: [facility] Transcribe Date/Time: Jul 01 2024 12:42P Dictated by : IVON PEREIRA MD This examination was interpreted and the report reviewed and electronically signed by: IVON PEREIRA MD on Jul 01 2024 12:43PM EST XR CHEST 2V FRONTAL/LAT Result Date: 07/01/2024 IMPRESSION: See result. Field Technical Support Consultant: [facility] Transcribe Date/Time: Jul 01 2024 10:40A Dictated by : IVON PEREIRA MD This examination was interpreted and the report reviewed and electronically signed by: IVON PEREIRA MD on Jul 01 2024 10:41AM EST XR CHEST 1V FRONTAL PORT Result Date: 06/23/2024 IMPRESSION: See result. Field Technical Support Consultant: [facility] Transcribe Date/Time: Jun 23 2024 1:43P Dictated by : GILMA RAMSEY MD This examination was interpreted and the report reviewed and electronically signed by: GILMA RAMSEY MD on Jun 23 2024 1:44PM EST XR CHEST 2V FRONTAL/LAT Result Date: 06/22/2024 IMPRESSION: See result Field Technical Support Consultant: [facility] Transcribe Date/Time: Jun 22 2024 3:00P Dictated by : GILMA RAMSEY MD This examination was interpreted and the report reviewed and electronically signed by: GILMA RAMSEY MD on Jun 22 2024 3:03PM EST XR CHEST 1V FRONTAL PORT Result Date: 06/22/2024 IMPRESSION: See result. Field Technical Support Consultant: [facility] Transcribe Date/Time: Jun 22 2024 10:53A Dictated by : ANA CRISTINA MAYFIELD MD This examination was interpreted and the report reviewed and electronically signed by: ANA CRISTINA MAYFIELD MD on Jun 22 2024 10:53AM EST XR CHEST 1V FRONTAL PORT Result Date: 06/21/2024 IMPRESSION: See result. Field Technical Support Consultant: [facility] Transcribe Date/Time: Jun 21 2024 8:53A Dictated by : ANA CRISTINA MAYFIELD MD This examination was interpreted and the report reviewed and electronically signed by: ANA CRISTINA MAYFIELD MD on Jun 21 2024 8:55AM EST XR CHEST 1V FRONTAL PORT Result Date: 06/20/2024 IMPRESSION: See result. Field Technical Support Consultant: [facility] Transcribe Date/Time: Jun 20 2024 10:15A Dictated by : SANGEETHA MCDONALD MD This examination was interpreted and the report reviewed and electronically signed by: SANGEETHA MCDONALD MD on Jun 20 2024 10:16AM EST XR CHEST 1V FRONTAL PORT Result Date: 06/19/2024 IMPRESSION: See result. Field Technical Support Consultant: [facility] Transcribe Date/Time: Jun 19 2024 5:35P Dictated by : GILMA RAMSEY MD This examination was interpreted and the report reviewed and electronically signed by: GILMA RAMSEY MD on Jun 19 2024 5:38PM EST XR CHEST 2V FRONTAL/LAT Result Date: 06/07/2024 IMPRESSION: 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 Field Technical Support Consultant: [facility] Transcribe Date/Time: Jun 07 2024 1:52P Dictated by : JEANETTE MENJIVAR MD This examination was interpreted and the report reviewed and electronically signed by: POPEYE RODRIGUEZ MD on Jun 07 2024 4:23PM EST XR CHEST 2V FRONTAL/LAT Result Date: 05/17/2024 IMPRESSION: See result. Field Technical Support Consultant: [facility] Transcribe Date/Time: May 17 2024 3:17P [...] No pneumothorax. Cardiomediastinal silhouette: Stable cardiac silhouette. Field Technical Support Consultant: [facility] Transcribe Date/Time: May 12 2024 9:59A Dictated by : JURGEN ROY MD This examination was interpreted and the report reviewed and electronically signed by: JURGEN ROY MD on May 12 2024 10:00AM EST XR CHEST 1V FRONTAL PORT Result Date: 05/11/2024 IMPRESSION: See result. Field Technical Support Consultant: [facility] Transcribe Date/Time: May 11 2024 9:48A Dictated by : IVON PEREIRA MD This examination was interpreted and the report reviewed and electronically signed by: IVON PEREIRA MD on May 11 2024 9:49AM EST XR CHEST 1V FRONTAL PORT Result Date: 05/11/2024 IMPRESSION: See result Field Technical Support Consultant: [facility] Transcribe Date/Time: May 11 2024 12:02A Dictated by : ALIYA BARRIENTOS MD This examination was interpreted and the report reviewed and electronically signed by: ALIYA BARRIENTOS MD on May 11 2024 12:03AM EST XR CHEST 1V FRONTAL PORT Result Date: 05/10/2024 IMPRESSION: See result Field Technical Support Consultant: [facility] Transcribe Date/Time: May 10 2024 5:04P Dictated by : ALIYA BARRIENTOS MD This examination was interpreted and the report reviewed and electronically signed by: ALIYA BARRIENTOS MD on May 10 2024 5:08PM EST XR CHEST 2V FRONTAL/LAT Result Date: 02/02/2024 IMPRESSION: Right pneumothorax Findings discussed with Dr. Goss at 1543 Field Technical Support Consultant: [facility] Transcribe Date/Time: Feb 02 2024 3:36P Dictated by : BEVERLEY CAMACHO MD This examination was interpreted and the report reviewed and electronically signed by: BEVERLEY CAMACHO MD on Feb 02 2024 3:45PM EST XR CHEST 2V FRONTAL/LAT Result Date: 01/08/2024 IMPRESSION: See result Field Technical Support Consultant: [facility] Transcribe Date/Time: Jan 08 2024 2:44P Dictated by : CORAZON PUENTES DO This examination was interpreted and the report reviewed and electronically signed by: ALIYA BARRIENTOS MD on Jan 08 2024 3:45PM EST XR CHEST 2V FRONTAL/LAT Result Date: 11/27/2023 IMPRESSION: See result Field Technical Support Consultant: [facility] Transcribe Date/Time: Nov 27 2023 2:01P Dictated by : ALIYA BARRIENTOS MD This examination was interpreted and the report reviewed and electronically signed by: ALIYA BARRIENTOS MD on Nov 27 2023 2:14PM EST XR CHEST 1V FRONTAL PORT Result Date: 11/19/2023 IMPRESSION: See result. Field Technical Support Consultant: [facility] Transcribe Date/Time: Nov 19 2023 10:24A Dictated by : MALLORY MUNOZ MD This examination was interpreted and the report reviewed and electronically signed by: MALLORY MUNOZ MD on Nov 19 2023 10:26AM EST XR CHEST 1V FRONTAL PORT Result Date: 11/18/2023 IMPRESSION: See result. Field Technical Support Consultant: [facility] Transcribe Date/Time: Nov 18 2023 9:36A Dictated by : MALLORY MUNOZ MD This examination was interpreted and the report reviewed and electronically signed by: MALLORY MUNOZ MD on Nov 18 2023 9:38AM EST XR CHEST 2V FRONTAL/LAT Result Date: 11/17/2023 IMPRESSION: See result Field Technical Support Consultant: [facility] Transcribe Date/Time: Nov 17 2023 4:54P Dictated by : GILMA RAMSEY MD This examination was interpreted and the report reviewed and electronically signed by: GILMA RAMSEY MD on Nov 17 2023 4:56PM EST XR CHEST 1V FRONTAL PORT Result Date: 11/17/2023 IMPRESSION: See result. Field Technical Support Consultant: [facility] Transcribe Date/Time: Nov 17 2023 9:15A [...] No pneumothorax. Cardiomediastinal silhouette: Stable cardiac silhouette. Field Technical Support Consultant: [facility] Transcribe Date/Time: Nov 16 2023 7:59A Dictated by : JURGEN ROY MD This examination was interpreted and the report reviewed and electronically signed by: JURGEN ROY MD on Nov 16 2023 7:59AM EST XR CHEST 1V FRONTAL PORT Result Date: 11/15/2023 IMPRESSION: See result. Field Technical Support Consultant: [facility] Transcribe Date/Time: Nov 15 2023 3:39P Dictated by : GILMA RAMSEY MD This examination was interpreted and the report reviewed and electronically signed by: GILMA RAMSEY MD on Nov 15 2023 3:40PM EST XR CHEST 2V FRONTAL/LAT Result Date: 11/09/2023 IMPRESSION: See result Field Technical Support Consultant: [facility] Transcribe Date/Time: Nov 09 2023 7:39A [...] right upper lobe spiculated nodule with cavitations. Field Technical Support Consultant: PSCHerbert Transcribe Date/Time: May 11 2024 3:35P Dictated by : IVON DALTON MD This examination was interpreted and the report reviewed and electronically signed by: IVON DALTON MD on May 11 2024 3:46PM EST Dia Urena MD, JESSICA Staff, Respiratory [facility] Pager #[phone] [1] Social History Tobacco Use Smoking status: [...] Observed: 10/25/2024 9:35 AM Status: F Source: [facility] Echocardiography Report: Tra nsthoracic Echo [facility] Date of service: 10/25/2024 9:35:22 AM [...] * * * Final * * * [employer] [facility] : [id number] LEGIONELLA AG UR QL Collected: 10/25/2024 8:[address] atus: F Source: [facility] Order Comment: Specimen Type : URINE SPECIMEN Ordering Facility: [facility] Address: [address] [place] [address] TYPE CODE TESTS RESULT OUT OF RANGE REFERENCE UNITS LAB 58655-8([facility]) Legionella Ag Ur Ql Negative Negative Result Comment: Legionella u rinary antigen test is used as an aid in diagnosis of infection with Legionella pneumophila serogroup 1. It may be detected from a few days to several months after onset of signs and symptoms despite antibiotic therapy or disease resolution. A negative result cannot exclude Legionellosis. Clinical correlation is required. Performed By: #### 34783-5 # ### [facility] CLIA [id number] [address] [place] [address] [place] STREPTOCOCCUS PNEUMONIAE ANTIGEN URINE Observed: 10/25/2024 8:42 AM Status: F Source: [facility] STREP PNEUMO AG RESULT: Negative for Streptococcus pneumoniae antigen. Presumptive negative for pneumococcal pneumonia, suggesting no current or recent pneumococcal infection. Infection due to S.pneumoniae cannot be ruled out since the antigen present in the sample may be below the detection limit of the test. Performed By: #### SPNAG ### # [facility] CLIA [id number] [address] [place] [address] [place] STAPHYLOCOCCUS AUREUS AND MR SA SCREEN, PCR, NASAL Collected: 10/25/2024 8:39 AM Status: F Source: [facility] Order Comment: Specimen Type : SWAB Ordering Facility: [facility] Address: [address] [place] [address] TYPE CODE TESTS RESULT OUT OF RANGE REFERENCE UNITS LAB 82842-1(LOINC) SA+MRSA Pnl Nose WENDY+probe Not Detected Not Detected Performed By: #### SAPCR ### # [facility] CLIA [id number] [address] [place] [address] [place] MYCOPLASMA PNEUM PCR Observed: 8:38 AM Status: F Source: [facility] SPECIMEN SOURCE (MYCPCR): Sputum MYCOPLASMA PNEUM DNA: Not Detected NOT DETECTED - A negative result does not rule out the presence of PCR inhibitors in the patient specimen or assay specific nucleic acid in concentrations below the level of detection by the assay. INTERPRETIVE INFORMATION: Mycoplasma pneumoniae by PCR This test was developed and its performance characteristics determined by [facility]. It has not been cleared or approved by the US Food and Drug Administration. This test was performed in a CLIA certified laboratory and is intended for clinical purposes. Performed By: [facility] [address] [place] [address] Knitting Inspector: Ethan Littlejohn MD, PhD CLIA Number: [id number] Performed By: #### MYCPCR ## ## [facility] CLIA [id number] [address] [place] [address] PROGRESS Observed: 10/25/2024 8:21 AM Status: COMPLETED Source: [facility] HNO ID: [id number] Author: HAILE BARBOSA MD Service: Hospital Medicine [...] Stage 1 mild COPD by GOLD classification ([facility]) 11/17/2023 Priority: B Lung abscess (HCC) 11/17/2023 [...] 10/25/2024 5:37 A M Status: F Source: [facility] Order Comment: Specimen Type : BLOOD SPECIMEN Ordering Facility: [facility] Address: [address] [place] [address] TYPE CODE TESTS RESULT OUT OF RANGE REFERENCE UNITS LAB 93027-6(LOINC) Procalcitonin SerPl-mCnc 0.21 High <0.09 ng/mL Result Comment: For a guided interpretation of test results, please visit the Change in Procalcitonin Calculator, [email or web address]. Performed By: #### 88489-9, 72337-6, 21586-3 #### [facility] CLIA [id number] [address] STATES OF [facility] BAS METAB 2000 PNL SERPL Collected: 5:37 AM Status: F Source: [facility] Order Comment: Specimen Type : BLOOD SPECIMEN Ordering Facility: [facility] Address: [address] [place] [address] TYPE CODE TESTS RESULT OUT OF RANGE REFERENCE UNITS LAB 2345-7(LOINC) Glucose SerPl-mCnc 108 High 74-99 mg/dL Result Comment: The [place] Diabetes Association (ADA) provides guidance for cutoff [...] Standards of Medical Care in Diabetes 2016, [place] [employer]. Diabetes Care. 2016.39(Suppl 1). LAB 3094-0(LOINC) BUN SerPl-mCnc 9 9-24 mg/dL LAB 2160-0(LOINC) Creat SerPl-mCnc 0.70 Low 0.73-1.22 mg/dL LAB 2951-2(LOINC) Sodium SerPl-sCnc 139 136-144 mmol/L LAB 2823-3(LOINC) Potassium SerPl-sCnc 4.8 3.7-5.1 mmol/L LAB 2075-0(LOINC) Chloride SerPl-sCnc 102 98-107 mmol/L LAB 202-9(LOINC) CO2 SerPl-sCnc 24 22-30 mmol/L LAB 99101-6(LOINC) Anion Gap SerPl-sCnc 13 8-15 mmol/L LAB 74104-2(LOINC) Calcium SerPl-mCnc 8.7 8.5-10.2 mg/dL LAB 65263-0(LOINC) eGFRcr SerPlBld CKD-EPI 2020 98 >=60 mL/min/1. [...] accurately reflect actual GFR. Performed By: #### 95055-3, 03289-2, #### [facility] CLIA [id number] [address] [place], [place] [id number] [place] [address] [place] MAGNESIUM SERPL-MCNC Collected: 10/25/2024 5:37 AM S tatus: F Source: [facility] Order Comment: Specimen Type : BLOOD SPECIMEN Ordering Facility: [facility] Address: [address] [place], [place] [address] [id number] TYPE CODE TESTS RESULT OUT OF RANGE REFERENCE UNITS LAB 89147-5([facility]) Magnesium SerPl-mCnc 2.3 1.7-2.3 mg/dL Performed By: #### 81492-9, 60375-5, #### [facility] CLIA [id number] [address] [place] [address] [place] CBC PNL BLD AUTO Collected: 10/25/2024 5:37 AM Statu s: F Source: [facility] Order Comment: Specimen Type : BLOOD SPECIMEN Ordering Facility: [facility] Address: [address] [place] [address] TYPE CODE TESTS RESULT OUT OF RANGE [...] MCHC RBC Auto-mCnc 32.1 30.5-36.0 g/dL LAB 52485-0(LOINC) RDW RBC-Rto 14.6 11.5-15.0 % LAB 777-3(LOINC) Platelet # Bld Auto 457 High 150-400 k/uL LAB 35018-7(LOINC) PMV Bld Auto 8.7 Low 9.0-12.7 fL LAB 771-6(LOINC) nRBC # Bld Auto <0.01 <0.01 k/uL Performed By: #### 86174-3 # ### [facility] CLIA [id number] [address] [place] [id number] [place] CNPTOUTREACH Observed: 10/25/2024 12:00 AM Status: COMPLETED Source: [facility] Patient Outreach (NETNAV) STEVIE ANGELES ([id number]) 1950 M DEF Date Time Provider Department 10/25/24 PRAFUL SU During your visit today, we recorded the following information about you: Meng Angeline 10/25/2024 1:26 PM Signed POPULATION HEALTH NAVIGATION OUTREACH Action/FYI Pt needs annual wellness visit , follow up 01/24/25 No HCCs Left voicemail for patient, Sent Second Porcht message to the pt Reason for Outreach Care Gap/HCC or Scheduling Wellness Visits Care Gaps due: Medicare Annual Wellness Visit Follow-up Appointment Patient Contacted: Unable or unnecessary to reach patient: Left message HASHhart message sent Navigation Signature: Angeline Fan October 25, 2024 1:24 PM Allergies As of Date: 10/25/2024 (No Known Allergies) Date Reviewed: 10/25/2024 Reviewed by: Mata Torres, RN - Fully Assessed Reason for Visit: Population Health Navigation Outreach [3910] Cmt: Russ Raman [facility] Prescriptions as of 10/25/2024 - lisinopril-hydroCHLOROthiazide [...] Observed: 10/24/2024 8:43 PM Status: COMPLETED Source: [facility] HNO ID: [id number] Author: ANDERSON RODRIGUEZ PA-C Service: Hospital Medicine Author Type: Physician Deicer Kit Assembler Type: H&P Filed: 10/24/2024 22:24 Note Text: [...] Praful Su MD NIGHT AND WEEKEND COVERAGE: [facility]: Days: [phone], please page attending physician. Nights: [phone], please page [place] [facility] Night coverage pager [phone]. Subjective CHIEF COMPLAINT: Elevated HR at PCP [...] hyperlipidemia Prostate cancer (HCC) 2020 xrt at [facility] [place] Smoker former quit 2021 Spinal stenosis of [...] Airways Line Duration Peripheral 10/24/242021 [facility] Right Antecubital 20 Gauge <1 day DATA: [...] Observed: 10/24/2024 8:30 PM Status: F Source: [facility] CULTURE, BLOOD: No growth 5 days GRAM STAIN: This blood culture had less than the recommended 8 ml per bottle, which could decrease the sensitivity of the test. Performed By: #### 600-7 ### # [facility] CLIA [id number] [address] [place] [address] [place] BACTERIA BLD CULT Observed: 10/24/2024 8:22 PM Status: F Source: [facility] CULTURE, BLOOD: No growth 5 days GRAM STAIN: This blood culture had less than the recommended 8 ml per bottle, which could decrease the sensitivity of the test. Performed By: #### 600-7 ### # [facility] CLIA [id number] [address] [place] [address] [place] CONSULT PROG Observed: 10/24/2024 8:19 PM Status: COMPLETED Source: [facility] HNO ID: [id number] Author: MAUREEN SHERMAN RPh Service: Pharmacy Author [...] have any questions, please contact pharmacy at [phone]. Age: [age] year old Allergies: ALLERGIES No [...] Levels: No results found for: MACKENZIE Guerrero [facility] HIGH SENSITIVITY TROPONIN T (SECOND) Collected: 10/24/2024 6:57 PM Status: F Source: [facility] Order Comment: Specimen Type : BLOOD SPECIMEN Ordering Facility: [facility] Address: [address] [place] [address] TYPE CODE TESTS RESULT OUT OF RANGE REFERENCE UNITS LAB 99340-3(LOINC) Troponin T SerPl HS-mCnc 39 High <12 ng/L Performed By: #### [id number] # ### [facility] CLIA [id number] [address] [place] [address] [facility] CTA CHEST (NON GATED) W IVCO N PE Observed: 10/24/2024 6:05 PM Status: F Source: [facility] * * *Final Report* * * DATE OF EXAM: Oct 24 2024 6:05PM [facility] 0564 - CTA CHEST (NON GATED) W [...] not excluded. Mediastinal lymphadenopathy may be reactive. Field Technical Support Consultant: IMMANUEL Transcribe Date/Time: Oct 24 2024 6:55P Dictated by : BRIGIDA WEIR MD This examination was interpreted and the report reviewed and electronically signed by: BRIGIDA WEIR MD on Oct 24 2024 7:03PM EST [id number] ALLIED HEALTH Observed: 10/24/2024 6:01 PM Status: COMPLETED Source: [facility] HNO ID: [id number] Author: DEN TORRES TECHNOLOGIST Service: Radiology Author [...] PATIENT PRESENTS WITH AN IMPLANTABLE OR ATTACHED TRAIN STATION AGENT: No RADIOLOGY DEPARTMENT: CT; Exam(s) Completed: PE Study. Anesthesia: No PERIPHERAL IV DATA: Inpatient: see LDA documentation SIGNED BY: TECHNOLOGIST Bettye October 24, 2024 6:04 PM HIGH SENSITIVITY TROPONIN T (INITIAL) Collected: 10/24/2024 5:43 PM Status: F Source: [facility] Order Comment: Specimen Type : BLOOD SPECIMEN Ordering Facility: [facility] Address: [address] [place] [address] TYPE CODE TESTS RESULT OUT OF RANGE REFERENCE UNITS LAB 34858-0(LOINC) Troponin T SerPl HS-mCnc 35 High <12 ng/L Performed By: #### [id number] # ### [facility] CLIA [id number] [address] [place] [address] [place] ED PROV NOTE Observed: 10/24/2024 4:03 PM Status: COMPLETED Source: [facility] HNO ID: [id number] Author: HAILE VASQUEZ DO Service: Emergency Medicine [...] Prostate cancer (HCC) 2020 xrt at [facility] Smoker former quit 2021 Spinal stenosis of [...] not excluded. Mediastinal lymphadenopathy may be reactive. Field Technical Support Consultant: IMMANUEL Transcribe Date/Time: Oct 24 2024 6:55P [...] 10/24/2024 4:[address] atus: F Source: [facility] Order Comment: Specimen Type : BLOOD SPECIMEN Ordering Facility: [facility] Address: [address] [place] [address] TYPE CODE TESTS RESULT OUT OF RANGE [...] MCHC RBC Auto-mCnc 32.1 30.5-36.0 g/dL LAB 58917-9([facility]) RDW RBC-Rto 14.4 11.5-15.0 % LAB 777-3([facility]) Platelet # Bld Auto 448 High 150-400 k/uL LAB 73445-3([facility]) PMV Bld Auto 8.6 Low 9.0-12.7 fL LAB 770-8([facility]) Neutrophils/leuk NFr Bld Auto 82.1 % LAB 751-8([facility]) Neutrophils # Bld Auto 9.89 High 1.45-7.50 k/uL LAB 736-9([facility]) Lymphocytes/leuk NFr Bld Auto 9.9 % LAB 731-0([facility]) Lymphocytes # Bld Auto 1.20 1.00-4.00 k/uL LAB 5905-5([facility]) Monocytes/leuk NFr Bld Auto 6.6 % LAB 742-7([facility]) Monocytes # Bld Auto 0.80 <0.87 k/uL LAB 713-8([facility]) Eosinophil/leuk NFr Bld Auto 0.4 % LAB 711-2([facility]) Eosinophil # Bld Auto 0.05 <0.46 k/uL LAB 706-2([facility]) Basophils/leuk NFr Bld Auto 0.7 % LAB 704-7([facility]) Basophils # Bld Auto 0.09 <0.11 k/uL LAB 16137-2([facility]) Imm Granulocytes/fidelia k NFr Bld Auto 0.3 % LAB 18515-0([facility]) Imm Granulocytes # Bld Auto 0.04 <0.10 k/uL LAB 57953-8([facility]) nRBC/100 WBC Bld-Rto 0.0 /100 WBC LAB 771-6([facility]) nRBC # Bld Auto <0.01 <0.01 k/u L LAB 84520-4([facility]) Differential method Bld Auto Performed By: #### 88856-2 # ### [facility] CLIA [id number] [address] [place] [address] [place] COMP METAB 2000 PNL SERPL Collected: 4:00 PM Status: F Source: [facility] Order Comment: Specimen Type : BLOOD SPECIMEN Ordering Facility: [facility] Address: [address], [place] [id number] TYPE CODE TESTS RESULT OUT OF RANGE REFERENCE UNITS LAB 2885-2(LOINC) Prot SerPl-mCnc 6.0 Low 6.3-8.0 g/dL LAB 1751-7(LOINC) Albumin SerPl-mCnc 2.8 Low 3.9-4.9 g/dL LAB 87653-8(LOINC) Calcium SerPl-mCnc 7.8 Low 8.5-10.2 mg/dL LAB 1975-2(LOINC) Bilirub SerPl-mCnc 0.3 0.2-1.3 mg/dL LAB 6768-6(LOINC) ALP SerPl-cCnc 104 38-113 U/L LAB 1920-8(LOINC) AST SerPl-cCnc 28 14-40 U/L LAB 1742-6(LOINC) ALT SerPl-cCnc 52 10-54 U/L LAB 2345-7(LOINC) Glucose SerPl-mCnc 91 74-99 mg/dL Result Comment: The [place] Diabetes Association (ADA) provides guidance for cutoff [...] Standards of Medical Care in Diabetes 2016, [place] [employer]. Diabetes Care. 2016.39(Suppl 1). LAB 3094-0(LOINC) BUN SerPl-mCnc 6 Low 9-24 mg/dL LAB 2160-0(LOINC) Creat SerPl-mCnc 0.45 Low 0.73-1.22 mg/dL LAB 2951-2(LOINC) Sodium SerPl-sCnc 140 136-144 mmol/L LAB 2823-3(LOINC) Potassium SerPl-sCnc 3.8 3.7-5.1 mmol/L LAB 2075-0(LOINC) Chloride SerPl-sCnc 106 98-107 mmol/L LAB 2027-9(LOINC) CO2 SerPl-sCnc 25 22-30 mmol/L LAB 88659-9(LOINC) Anion Gap SerPl-sCnc 9 8-15 mmol/L LAB 56347-3(LOINC) eGFRcr SerPlBld CKD-EPI 2020 112 >=60 mL/min/1. [...] accurately reflect actual GFR. Performed By: #### 62711-8, HSTNT, 73994-0, 3040-3 #### [facility] CLIA [id number] [address] [place] HIGH SENSITIVITY TROPONIN T Collected: 10/24/2024 4:0 0 PM Status: F Source: [facility] Order Comment: Specimen Type : BLOOD SPECIMEN Ordering Facility: [facility] Address: [address] [place] [address] TYPE CODE TESTS RESULT OUT OF RANGE REFERENCE UNITS LAB 83646-6([facility]) Troponin T SerPl HS-mCnc 39 High <12 ng/L Performed By: #### 56867-6, HSTNT, 31682-6, 3040-3 #### [facility] CLIA [id number] [address] [place] [address] [place] LIPASE SERPL-CCNC Collected: 10/24/2024 4:00 PM Stat us: F Source: [facility] Order Comment: Specimen Type : BLOOD SPECIMEN Ordering Facility: [facility] Address: [address] [place] [address] TYPE CODE TESTS RESULT OUT OF RANGE REFERENCE UNITS LAB 3040-3(LOINC) Lipase SerPl-cCnc 19 16-61 U/L Performed By: #### 65529-9, HSTNT, 20040-2, 3040-3 #### [facility] CLIA [id number] [address] [place] [address] [facility] MAGNESIUM SERPL-MCNC Collected: 10/24/2024 4:00 PM S tatus: F Source: [facility] Order Comment: Specimen Type : BLOOD SPECIMEN Ordering Facility: [facility] Address: [address] [place] [address] TYPE CODE TESTS RESULT OUT OF RANGE REFERENCE UNITS LAB 91455-7(LOINC) Magnesium SerPl-mCnc 1.6 Low 1.7-2.3 mg/dL Performed By: #### 30305-3, HSTNT, 36862-5, 3040-3 #### [facility] CLIA [id number] [address] ED NOTE Observed: 10/24/2024 3:41 PM Status: COMPLETED Source: [facility] HNO ID: [id number] Author: JOSE ARMANDO CASSIDY RN Service: ? Author Type: Registered Nurse Type: ED Notes Filed: 10/24/2024 15:41 Note Text: Dr العراقي notified of BP EKG Observed: 10/24/2024 3:32 PM Status: F Source: [facility] Ventricular Rate : 111 BPM QRS Duration : 74 ms Q-T Interval : 336 ms QTC Calculation(Bazett) : 456 ms Calculated R [place] : 53 degrees Calculated T [place] : 34 degrees ATRIAL FIBRILLATION WITH RAPID VENTRICULAR RESPONSE WITH PREMATURE VENTRICULAR OR ABERRANTLY CONDUCTED COMPLEXES ABNORMAL ECG Confirmed by HAILE VASQUEZ DO ([id number]) on 10/24/2024 8:50:25 PM NAME : STEVIE ANGELES PID : [id number] : 1950 Gender : Male Race : ORD : Procedure Date : Oct 24 2024 15:32:23 Edit Date : Oct 24 2024 20:50:29 Diagnosis: ATRIAL FIBRILLATION WITH RAPID VENTRICULAR RESPONSE WITH PREMATURE VENTRICULAR OR ABERRANTLY CONDUCTED COMPLEXES ABNORMAL ECG Confirmed by HAILE VASQUEZ DO ([id number]) on 10/24/2024 8:50:25 PM Test Reason : Location : 1 : ER ED Overread By : HAILE VASQUEZ DO Edited By : HAILE VASQUEZ DO Referred By : , Acquired by : cc, ED NOTE Observed: 10/24/2024 3:30 PM Status: COMPLETED Source: [facility] HNO ID: [id number] Author: JOSE ARMANDO CASSIDY RN Service: ? Author Type: Registered Nurse Type: ED Notes Filed: 10/24/2024 15:30 Note Text: Bed: ED-02 Expected date: 10/24/24 Expected time: Means of arrival: Comments: VC PROGRESS Observed: 10/24/2024 2:29 PM Status: COMPLETED Source: [facility] HNO ID: [id number] Author: PRAFUL SU MD Service: ? Author [...] Observed: 10/24/2024 2:20 PM Status: COMPLETED Source: [facility] STEV[facility]GELES ([id number]) 1950 M DEF Date Time Provider Department 10/24/24 2:20 PM PRAFUL SU [facility] During your visit today, we recorded the [...] for Encounter Date Provider Department Center 10/24/2024 [id number], NEI*[facility] Encounter Status:Closed by PRAFUL SU on 10/24/24 OFELIA Observed: 10/22/2024 12:00 AM Status: COMPLETED Source: [facility] Telephone ([facility]) STEVIE ANGELES ([id number]) 1950 M DEF Date Time Provider Department [...] to notify patient and will send a JamLegend message. Allergies As of Date: 10/22/2024 (No [...] Observed: 09/20/2024 4:25 PM Status: COMPLETED Source: [facility] HNO ID: [id number] Author: FLO CHESTER RN Service: ? Author [...] COPD Education: Action Plan Disposition Based on insurance salesman, the following disposition is advised: No action needed Flo Chester RN September 20, 2024 4:27 PM ELVIRATOUTRAMEYA Observed: 09/20/2024 12:00 AM Status: COMPLETED Source: [facility] Patient Outreach ([facility]) STEVIE ANGELES ([id number]) 1950 M DEF Date Time Provider Department [...] COPD Education: Action Plan Disposition Based on insurance salesman, the following disposition is advised: No action [...] Stage 1 mild COPD by GOLD classification ([facility]) *11/17/2023 Abscess of lower lobe of right lung without pne*11/17/2023 Pleural effusion, left [J90] 11/17/2023 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 Author [...] to Go for Care Disposition Based on insurance salesman, the following disposition is advised: No action needed Flo Chester RN September 13, 2024 4:28 PM BEATRIS Observed: 09/13/2024 12:00 AM Status: COMPLETED Source: [facility] Patient Outreach ([facility]) STEVIE ANGELES ([id number]) 1950 M DEF Date Time Provider Department [...] to Go for Care Disposition Based on insurance salesman, the following disposition is advised: No action [...] Observed: 09/11/2024 11:14 AM Status: COMPLETED Source: [facility] HNO ID: [id number] Author: KEVIN CANTU MD Service: ? Author [...] prostate adenocarcinoma, initial PSA 7.52 ng/mL, biopsy [place] score 3 + 4 = 7 (grade [...] hyperlipidemia Prostate cancer (HCC) 2020 xrt at [facility] Smoker former quit 2021 Spinal stenosis of [...] Observed: 09/11/2024 11:10 AM Status: COMPLETED Source: [facility] Visit (SP) Office (HEMMED) STEVIE ANGELES ([id number]) 1950 M DEF Date Time Provider Department [...] hyperlipidemia Prostate cancer (HCC) 2020 xrt at [facility] [place] Smoker former quit 2021 Spinal stenosis of [...] Kevin Cantu MD Referring Provider: THAD BELTRAN [[id number]] Allergies As of Date: 09/11/2024 (No Known Allergies) Date Reviewed: 09/11/2024 Reviewed by: Melita Cerrato MA - Fully Assessed Reason for Visit: Follow Up [171] Lung Cancer [562] Primary Visit Diagnosis:Malignant neoplasm of unspecified part of unspecified bronchus or lung (HCC) [C34.90] Other Visit Diagnosis:Squamous cell carcinoma of lung, unspecified laterality (HCC) [C34.90] Order(s):COMPLETE BLOOD COUNT AND DIFFERENTIAL [SQCBCDIF] Order #: [id number] FUTURE COMPREHENSIVE METABOLIC PANEL [SQCMP] Order #: [id number] FUTURE PROSTATE-SPECIFIC ANTIGEN DIAGNOSTIC [SQPSA] Order #: [id number] FUTURE Disposition: Return in about 3 months (around 12/02/2024) for follow-up with scans beforehand. Follow-up and Disposition History for Encounter Date Provider Department Center 09/11/2024 [id number] [facility] Prescriptions as of 09/11/2024 - lisinopril-hydroCHLOROthiazide [...] Observed: 09/10/2024 12:19 PM Status: COMPLETED Source: [facility] HNO ID: [id number] Author: VERONIKA SKINNER CPhT Service: ? Author Type: Varnishing Unit Operator Type: Progress Notes Filed: 09/10/2024 12:21 Note Text: Patient is identified through a medication adherence outreach initiative based on pharmacy claims data from: [employer] Medication Adherence Category: Hypertension First Review Attribution Status: Correct attribution Medication(s) Lisinopril/Hctz 20/12.5 mg 1 tab daily Due 07/31/24 last filled 05/03/24 for 90 ds Medication Status per portal/Liquiteria Reconcile Dispense: Filled late - Greater than [...] Observed: 09/10/2024 12:00 AM Status: COMPLETED Source: [facility] Patient Outreach ([facility]) STEVIE ANGELES ([id number]) 1950 M DEF Date Time Provider Department 09/10/24 PRAFUL SU During your visit today, we recorded the following information about you: Veronika Skinner CPhT 09/10/2024 12:21 PM Signed Patient is identified through a medication adherence outreach initiative based on pharmacy claims data from: [employer] Medication Adherence Category: Hypertension First Review Attribution [...] concerns to be addressed Veronika Skinner CPhT [facility] Pharmacy Team Allergies As of Date: 09/10/2024 [...] Observed: 09/06/2024 12:06 PM Status: COMPLETED Source: [facility] HNO ID: [id number] Author: FLO CHESTER RN Service: ? Author [...] were you homeless or living in a care home (including now)?: No Transportation Needs In the [...] - Initial enrollment outreach Disposition Based on insurance salesman, the following disposition is advised: No action needed Flo Chester RN September 06, 2024 12:06 PM BEATRIS Observed: 09/06/2024 12:00 AM Status: COMPLETED Source: [facility] JACQUI ANGELESYDE ([id number]) 1950 M DEF Date Time Provider Department 09/06/24 FLO CHESTER [facility] During your visit today, we recorded the [...] were you homeless or living in a care home (including now)?: No Transportation Needs In the [...] In the past 12 months has the [employer], gas, oil, or water [employer] threatened to shut off services in your [...] - Initial enrollment outreach Disposition Based on insurance salesman, the following disposition is advised: No action [...] Observed: 08/23/2024 11:26 AM Status: COMPLETED Source: [facility] HNO ID: [id number] Author: EZE PEREZ RN Service: ? Author Type: Registered Nurse Type: Progress Notes Filed: 08/23/2024 15:50 Note Text: Radiation Therapy - Nursing Note (Follow-up) PATIENT NAME: Stevie Angeles PATIENT August 23, 2024 [facility] FACILITY/LOCATION: [place] Reason for visit: Follow up. Subjective Data Additional Data Do you want to see a Supervising Appraiser? No Difficulty performing or completing routine daily [...] Observed: 08/23/2024 11:00 AM Status: COMPLETED Source: [facility] HNO ID: [id number] Author: ELIAS GOSS MD Service: ? Author Type: Physician Type: Progress Notes Filed: 08/23/2024 15:50 Note Text: Radiation Oncology - Follow Up Note PATIENT NAME: Stevie Angeles PATIENT DIAGNOSIS: 74 year old man with: 1. Enlarging/hypermetabolic/cavitary RUL nodule c/w NSCLC, cE2wY5U7, Stage IA3, s/p SBRT 02/01/24 [3400 cGy/1 [...] with: 1. Enlarging/hypermetabolic/cavitary RUL nodule c/w NSCLC, sY1mR3B9, Stage IA3, s/p SBRT 02/01/24 [3400 cGy/1 [...] Observed: 08/23/2024 11:00 AM Status: COMPLETED Source: [facility] Office Visit ([facility]) STEVIE ANGELES ([id number]) 1950 M DEF Date Time Provider Department 08/23/24 11:00 AM ELIAS GOSS During your visit today, we recorded the following information about you: Weight 78.2 kg Elias Goss MD 08/23/2024 3:50 PM Signed Radiation Oncology - Follow Up Note PATIENT NAME: Stevie Angeles PATIENT DIAGNOSIS: 74 year old man with: 1. Enlarging/hypermetabolic/cavitary RUL nodule c/w NSCLC, fU5pD1D1, Stage IA3, s/p SBRT 02/01/24 [3400 cGy/1 [...] with: 1. Enlarging/hypermetabolic/cavitary RUL nodule c/w NSCLC, xN6wF3W3, Stage IA3, s/p SBRT 02/01/24 [3400 cGy/1 [...] NAME: Stevie Angeles PATIENT August 23, 2024 [facility] FACILITY/LOCATION: [place] Reason for visit: Follow up. Subjective Data Additional Data Do you want to see a Supervising Appraiser? 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 Author Type: Nurse Practitioner Type: Progress Notes Filed: 08/20/2024 13:21 Note Text: [facility] [place] Department of Thoracic Surgery VIRTUAL VIDEO VISIT [...] visit. Either the patient or their legal b2b outside sales representative has been informed of the risks and benefits of -- and alternatives to -- treatment through a remote evaluation and consents to proceed with the evaluation remotely. PAST MEDICAL HISTORY Diagnosis Date Abdominal aortic aneurysm without rupture Elevated PSA Hearing loss HTN (hypertension) Lumbosacral neuritis Malignant neoplasm of prostate (HCC) Other and unspecified hyperlipidemia Prostate cancer (HCC) 2020 xrt at [facility] [place] Smoker former quit 2021 Spinal stenosis of [...] reviewed, updated as necessary, and thoroughly reviewed. [facility] - [facility] [place] OUTPATIENT THORACIC SURGERY CLINIC NOTE PT NAME: Stevie Angeles [facility] NO: [id number] THORACIC SURGEON: Paula Escobar M.D. DATE OF [...] the inked margin) were reviewed at the [facility] thoracic pathology consensus conference on 11/23/23. Dr. [...] w VS), spinal stenosis and Prostate cancer uC3xW5T4 adenocarcinoma prostate s/p TRUS random biopsy 09/24/20, [...] in 3 months to be done in [place] and then a virtual visit the next [...] weeks with virtual visit following CXR at [place] - oncology management with Dr Cantu, f/u 09/11/24 - radiation oncology management with Dr Goss, f/u 08/23/24 Romina Bedolla APRN.DRYWALLER XR CHEST 2V FRONTAL/LAT Observed: 2024 11:04 AM Status: F Source: [facility] * * *Final Report* * * [...] IMPRESSION: Resolution of right hydropneumothorax since 07/01/2024 Field Technical Support Consultant: IMMANUEL Transcribe Date/Time: Aug 20 2024 11:10A Dictated by : IKE KERR MD This examination was interpreted and the report reviewed and electronically signed by: IKE KERR MD on Aug 20 2024 11:14AM EST [id number] PROGRESS Observed: 08/19/2024 11:00 AM Status: COMPLETED Source: [facility] HNO ID: [id number] Author: FADI MELGAR RT(R) Service: Radiology Author [...] PATIENT PRESENTS WITH AN IMPLANTABLE OR ATTACHED TRAIN STATION AGENT: No RADIOLOGY DEPARTMENT: General X-ray: Exam(s) Completed: Chest X-Ray PERIPHERAL IV DATA: Not applicable SIGNED BY: RT Patricia(R) August 19, 2024 11:05 AM PROGRESS Observed: 07/12/2024 11:20 AM Status: COMPLETED Source: [facility] HNO ID: [id number] Author: FLO CHESTER RN Service: ? Author [...] Observed: 07/12/2024 12:00 AM Status: COMPLETED Source: [facility] Patient Outreach ([facility]) STEVIE ANGELES ([id number]) 1950 M DEF Date Time Provider Department 07/12/24 FLO CHESTER [facility] During your visit today, we recorded the [...] Observed: 2024 10:00 AM Status: COMPLETED Source: [facility] Office Visit (IKE) STEVIE ANGELES ([id number]) 1950 M DEF Date Time Provider Department [...] reviewed, updated as necessary, and thoroughly reviewed. [facility] - Heart, V[facility] [place] OUTPATIENT THORACIC SURGERY CLINIC NOTE PT NAME: Stevie Angeles [facility] NO: [id number] THORACIC SURGEON: Paula Escobar M.D. DATE OF [...] the inked margin) were reviewed at the [facility] thoracic pathology consensus conference on 11/23/23. Dr. [...] w VS), spinal stenosis and Prostate cancer wS2fJ1Z2 adenocarcinoma prostate s/p TRUS random biopsy 09/24/20, [...] petechiae IMAGING/TESTS: CXR 2024 INTERVAL HISTORY: Stevie Pulaski returns for post op visit and suture [...] visit in 6 weeks after CXR in [place]. 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 Follow-up and Disposition History for Encounter Date Provider Department Center 2024 [id number] BEDOLLA Encounter Status:Closed by ROMINA BEDOLLA on 07/08/24 PROGRESS Observed: 2024 9:44 AM Status: COMPLETED Source: [facility] HNO ID: [id number] Author: ROMINA BEDOLLA APRN.DRYWALLER Service: ? Author Type: Nurse Practitioner Type: Progress Notes Filed: 2024 10:45 Note Text: Part of this note was copied from previous note, all content has been individually reviewed, updated as necessary, and thoroughly reviewed. [facility] - Heart, V[facility] [place] OUTPATIENT THORACIC SURGERY CLINIC NOTE PT NAME: Stevie Angeles [facility] NO: [id number] THORACIC SURGEON: Paula Escobar M.D. DATE OF [...] the inked margin) were reviewed at the [facility] thoracic pathology consensus conference on 11/23/23. Dr. [...] FOR VISIT: Post-operative visit/suture removal HPI: Stevie Agneles is a 73 year old male, with h/o HTN, HLD, COPD with a long tobacco use history, AAA (4.67 cm FU w VS), spinal stenosis and Prostate cancer dF1lB0X7 adenocarcinoma prostate s/p TRUS random biopsy 09/24/20, [...] visit in 6 weeks after CXR in [place]. Will arrange for follow up with his [...] weeks with virtual visit following CXR at [place] - oncology management with Dr Cantu - radiation oncology management with Dr Ana Paula Bedolla, JESUS.DRYWALLER PROGRESS Observed: 2024 9:30 AM Status: COMPLETED Source: [facility] HNO ID: [id number] Author: ERMA JIN, RT(R) Service: Radiology Author [...] PATIENT PRESENTS WITH AN IMPLANTABLE OR ATTACHED TRAIN STATION AGENT: No RADIOLOGY DEPARTMENT: General X-ray: Exam(s) Completed: Chest X-Ray PERIPHERAL IV DATA: Not applicable SIGNED BY: Erma Jin RT(R) 2024 9:08 AM XR CHEST 2V FRONTAL/LAT Observed: 2024 9:06 AM Status: F Source: [facility] * * *Final Report* * * DATE [...] No acute radiographic findings in the chest. Field Technical Support Consultant: PSCB Transcribe Date/Time: 2024 1:27P Dictated by : ALIYA BARRIENTOS MD This examination was interpreted and the report reviewed and electronically signed by: ALIYA BARRIENTOS MD on 2024 1:30PM EST [id number] PROGRESS Observed: 07/05/2024 10:47 AM Status: COMPLETED Source: [facility] HNO ID: [id number] Author: FLO CHESTER RN Service: ? Author [...] Observed: 07/05/2024 12:00 AM Status: COMPLETED Source: [facility] Patient Outreach ([facility]) STEVIE ANGELES ([id number]) 1950 M DEF Date Time Provider Department [...] Observed: 07/01/2024 12:10 PM Status: [id number] Author: ERMA JIN RT(R) Service: Radiology Author [...] PATIENT PRESENTS WITH AN IMPLANTABLE OR ATTACHED TRAIN STATION AGENT: No RADIOLOGY DEPARTMENT: General X-ray: Exam(s) Completed: Chest X-Ray PERIPHERAL IV DATA: Not applicable SIGNED BY: Erma Jin, RT(R) July 01, 2024 12:04 PM XR CHEST 2V FRONTAL/LAT Observed: 2024 12:04 PM Status: F Source: [facility] * * *Final Report* * * DATE [...] and soft tissues: Unremarkable. IMPRESSION: See result. Field Technical Support Consultant: PSCB Transcribe Date/Time: Jul 01 2024 12:42P Dictated by : IVON PEREIRA MD This examination was interpreted and the report reviewed and electronically signed by: IVON PEREIRA MD on Jul 01 2024 12:43PM EST [id number] PROGRESS Observed: 07/01/2024 11:00 AM Status: COMPLETED Source: [facility] HNO ID: [id number] Author: NYDIA HOBSON APRN.DRYWALLER Service: ? Author Type: Nurse Practitioner Type: Progress Notes Filed: 07/01/2024 12:18 Note Text: [facility] - Heart, V[facility] [place] OUTPATIENT THORACIC SURGERY CLINIC NOTE PT NAME: Stevie Angeles [facility] NO: [id number] THORACIC SURGEON: Paula Escobar M.D. DATE OF [...] the inked margin) were reviewed at the [facility] thoracic pathology consensus conference on 11/23/23. Dr. [...] w VS), spinal stenosis and Prostate cancer [id number] adenocaarcinoma prostate s/p TRUS random biopsy 09/24/20, [...] repeat CXR and suture removal. Nydia Hobson APRN.DRYWALLER CNOV Observed: 07/01/2024 11:00 AM Status: COMPLETED Source: [facility] Office Visit (IKE) STEVIE ANGELES ([id number]) 1950 M [facility] Date Time Provider Department 07/01/24 11:00 AM ANASTASIIA BUENROSTRO During your visit today, we recorded the following information about you: Temperature Pulse Respiration Blood pressure 98.5 degrees 76/minute 14/minute 115/74 Weight Height 77.1 kg 1.778 m Nydia Hobson APRN.CNP 07/01/2024 12:18 PM Signed [facility] Heart, Vascular and Thor[facility] [place] OUTPATIENT THORACIC SURGERY CLINIC NOTE PT NAME: Stevie Angeles [facility] NO: [id number] THORACIC SURGEON: Paula Escobar M.D. DATE OF [...] the inked margin) were reviewed at the [facility] thoracic pathology consensus conference on 11/23/23. Dr. [...] w VS), spinal stenosis and Prostate cancer fV2pF0K6 adenocaarcinoma prostate s/p TRUS random biopsy 09/24/20, [...] 4 weeks after surgery. Do not perform cast iron dipper such as laundry and vacuuming. Do not [...] questions or concerns you may send a JamLegend message to your provider. 8. Avoid Smoking: [...] chest area. 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 Do not perform cast iron dipper such as laundry and vacuuming. Do not [...] questions or concerns you may send a JamLegend message to your provider. 8. Avoid Smoking: [...] for Encounter Date Provider Department Center 07/01/2024 [id number] BUENROSTRO Encounter Status:Closed by NYDIA HOBSON on 07/01/24 PROGRESS Observed: 07/01/2024 10:30 AM Status: COMPLETED Source: [facility] HNO ID: [id number] Author: ERMA JIN RT(R) Service: Radiology Author [...] PATIENT PRESENTS WITH AN IMPLANTABLE OR ATTACHED TRAIN STATION AGENT: No RADIOLOGY DEPARTMENT: General X-ray: Exam(s) Completed: Chest X-Ray PERIPHERAL IV DATA: Not applicable SIGNED BY: Erma Jin, RT(R) July 01, 2024 10:19 AM XR CHEST 2V FRONTAL/LAT Observed: 2024 10:17 AM Status: F Source: [facility] * * *Final Report* * * DATE [...] and soft tissues: Unremarkable. IMPRESSION: See result. Field Technical Support Consultant: IMMANUEL Transcribe Date/Time: Jul 01 2024 10:40A Dictated by : IVON PEREIRA MD This examination was interpreted and the report reviewed and electronically signed by: IVON PEREIRA MD on Jul 01 2024 10:41AM EST [id number] PROGRESS Observed: 06/24/2024 4:51 PM Status: COMPLETED Source: [facility] HNO ID: [id number] Author: THAD CHAVES MA Service: ? Author Type: Telephone Directory Distributor Driver Type: Progress Notes Filed: 06/24/2024 17:00 Note Text: POPULATION HEALTH NAVIGATION OUTREACH Action/I June 24, 2024 4:51 PM CM Pool Message ~ TCM Navigation Team Update / Actionable Items Readmission risk is LOW =9 Please schedule PCP Hospital Follow Up within 30 days Patient discharged from [facility] Discharge date: 06/23/24 Admitted for: Hydropneumothorax [...] Observed: 06/24/2024 4:34 PM Status: COMPLETED Source: [facility] HNO ID: [id number] Author: FLO CHESTER RN Service: ? Author Type: Registered Nurse Type: Progress Notes Filed: 06/24/2024 16:46 Note Text: Transition Care Management (TCM) Initial Outreach PCP Update / Actionable Items Navigation Team Update / Actionable Items Readmission risk is LOW =9 Please schedule PCP Hospital Follow Up within 30 days HRTIC TCM Home Visit Referral Source of Stratification: [facility] Hospital Admission Status: Discharged Readmission Risk Score: 9 Patient's zip code: [address] Is zip code within program service area: [...] questions at this time. Patient discharged from [facility] Discharge date: 06/23/24 Admitted for: Hydropneumothorax Readmission Risk: 9 Value-Based Contract: Russ HARKINS Contact: Contact made with patient: Yes Hi, my name is Flo Chester RN and I am calling from the [facility] on behalf of your Primary Care Provider, [...] I will send your request to a rug sample beveler who will contact and assist you with [...] Observed: 06/24/2024 12:00 AM Status: COMPLETED Source: [facility] Patient Outreach ([facility]) STEVIE ANGELES ([id number]) 1950 M DEF Date Time Provider Department [...] TCM Home Visit Referral Source of Stratification: [facility] Hospital Admission Status: Discharged Readmission Risk Score: 9 Patient's zip code: [address] Is zip code within program service area: [...] questions at this time. Patient discharged from [facility] Discharge date: 06/23/24 Admitted for: Hydropneumothorax Readmission Risk: 9 Value-Based Contract: Russ HARKINS Contact: Contact made with patient: Yes Hi, my name is Flo Chester RN and I am calling from the [facility] on behalf of your Primary Care Provider, [...] I will send your request to a rug sample beveler who will contact and assist you with [...] Up within 30 days Patient discharged from [facility] Discharge date: 06/23/24 Admitted for: Hydropneumothorax [...] Date Reviewed: 06/23/2024 Reviewed by: Pastora Pierre APRN.DRYWALLER - Fully Assessed Prescriptions as of 06/24/2024 [...] Observed: 06/23/2024 11:22 AM Status: COMPLETED Source: [facility] HNO ID: [id number] Author: LUL WAGNER ? Service: Pharmacy Author Type: Varnishing Unit Operator Type: Plan of Care Filed: 06/23/2024 14:55 Note Text: PHARMACY BEDSIDE DELIVERY SERVICE Patient Name: Stevie Angeles The marked outpatient medications were Filled at: [facility] and delivered to the patient's bedside [...] Observed: 06/23/2024 10:50 AM Status: COMPLETED Source: [facility] HNO ID: [id number] Author: ZAINA ANDREWS RN Service: Care Management [...] score=23. Patient will discharge with CT to [facility], patient declining HHC arrangement. Family to provide transportation home upon discharge. SIGNATURE: Katrik Andrews RN PATIENT NAME: Stevie Angeles DATE: June 23, 2024 TIME: 10:50 AM CNDS Observed: 06/23/2024 10:02 AM Status: COMPLETED Source: [facility] HNO ID: [id number] Author: PAULA ESCOBAR MD, PhD Service: Thoracic Surgery Author Type: Nurse Practitioner Type: Discharge Summary Filed: 07/03/2024 13:21 Note Text: Attestation signed by Paula Escobar MD, PhD at 07/03/2024 1:21 PM Fairly smooth course for redo surgery Department of Thoracic Surgery Discharge Summary (Template ID [id number]) PATIENT NAME: Stevie Angeles ADMISSION DATE: 06/19/2024 [...] discharge home with chest tube. Patient declined [facility] at time of discharge. * What were [...] TG 145. Resume home medication. Prostate cancer [id number] adenocaarcinoma prostate s/p TRUS random biopsy 09/24/20, [...] Your Medications These medications were sent to [facility] [address] [place] [address] Hours: Monday-Monday 7am-8pm, Monday, Monday and Holidays [...] plan for follow up: Follow up with DRYWALLER in thoracic clinic for chest tube removal and CXR 06/28/24 Future Appointments: Future Appointments Date Time Provider Department Center 10/24/2024 2:20 PM Praful Su MD [facility] 12/24/2024 11:00 AM NABEEL DEMONSTRATOR [facility] 12/24/2024 11:30 AM Malia Egan DO [facility] 01/16/2025 2:30 PM Don Lara MD [facility] Highest Readmission Risk Score: [...] the 30 MED limit established by the [facility] (#4723-9-1). 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 -Resume home medication. Prostate cancer [id number] adenocaarcinoma prostate s/p TRUS random biopsy 09/24/20, s/p Lupron 45 mg IM injection 11/05/20 then external beam radiation therapy completed 01/15/21 (70 Gy/28fx). ADRIANA -Follow up w/ urology as an outpatient Discharge planning. Single lives in [place]. Functionally independent at home. No skilled [...] subcutaneous lovenox Labs and medications reviewed in [facility] SIGNATURE: Pastora Pierre APRN.[facility] PAGER: [phone] DATE of SERVICE: June 23, 2024 TIME of SERVICE: 9:58 AM XR CHEST 1V FRONTAL PORT Observed: 06/23 6:31 AM Status: F Source: [facility] * * *Final Report* * * DATE [...] cardiomediastinal silhouette. Other: . IMPRESSION: See result. Field Technical Support Consultant: PSCB Transcribe Date/Time: Jun 23 2024 1:43P Dictated by : GILMA RAMSEY MD This examination was interpreted and the report reviewed and electronically signed by: GILMA RAMSEY MD on Jun 23 2024 1:44PM EST [id number] CBC PNL BLD AUTO Collected: 4:06 AM Status: F Source: [facility] Order Comment: Specimen Type : BLOOD SPECIMEN Ordering Facility: [facility] Address: [address] [place] [address] TYPE CODE TESTS RESULT OUT OF RANGE [...] MCHC RBC Auto-mCnc 33.5 30.5-36.0 g/dL LAB 56819-6(LOINC) RDW RBC-Rto 14.4 11.5-15.0 % LAB 777-3(LOINC) Platelet # Bld Auto 224 150-400 k/uL LAB 96427-9(LOINC) PMV Bld Auto 9.4 9.0-12.7 fL LAB 771-6(LOINC) nRBC # Bld Auto <0.01 <0.01 k/uL Performed By: #### 94407-1 # ### [facility] CLIA [id number] [address] [place] [address] [place] BAS METAB 2000 PNL SERPL Collected: 4:06 AM Status: F Source: [facility] Order Comment: Specimen Type : BLOOD SPECIMEN Ordering Facility: [facility] Address: [address], [place] [address] TYPE CODE TESTS RESULT OUT OF RANGE REFERENCE UNITS LAB 2345-7(LOINC) Glucose SerPl-mCnc 97 74-99 mg/dL Result Comment: The [place] Diabetes Association (ADA) provides guidance for cutoff [...] Standards of Medical Care in Diabetes 2016, [place] [employer] Association. Diabetes Care. 2016.39(Suppl 1). LAB 3094-0(LOINC) BUN SerPl-mCnc 10 9-24 mg/ dL LAB 2160-0(LOINC) Creat SerPl-mCnc 0.59 Low 0.73-1.22 mg/dL LAB 2951-2(LOINC) Sodium SerPl-sCnc 142 136-144 mmol/L LAB 2823-3(LOINC) Potassium SerPl-sCnc 3.7 3.7-5.1 mmol/L LAB 2075-0(LOINC) Chloride SerPl-sCnc 105 98-107 mmol/L LAB 2027-9(LOINC) CO2 SerPl-sCnc 25 22-30 mmo l/L LAB 07842-0(LOINC) Anion Gap SerPl-sCnc 12 8-15 mmol/L LAB 54646-9(LOINC) Calcium SerPl-mCnc 9.5 8.5-10.2 mg/dL LAB 26558-1(LOINC) Creatinine + eGFR Pnl SerPlBld 104 >=60 [...] accurately reflect actual GFR. Performed By: #### 46839-3 # ### [facility] CLIA [id number] [address] [place] [address] [place] XR CHEST 2V FRONTAL/LAT Observed: 2024 1:41 PM Status: F Source: [facility] * * *Final Report* * * DATE [...] and soft tissues: Unremarkable. IMPRESSION: See result Field Technical Support Consultant: IMMANUEL Transcribe Date/Time: Jun 22 2024 3:00P Dictated by : GILMA RAMSEY MD This examination was interpreted and the report reviewed and electronically signed by: GILMA RAMSEY MD on Jun 22 2024 3:03PM EST [id number] PROGRESS Observed: 06/22/2024 11:31 AM Status: COMPLETED Source: [facility] HNO ID: [id number] Author: PASTORA PIERRE APRN.DRYWALLER Service: Thoracic Surgery Author Type: Nurse Practitioner Type: Progress Notes Filed: 06/22/2024 11:31 Note Text: [facility] POST-OP PROGRESS NOTE Stevie Angeles [id number] PRIMARY SERVICE: Thoracic Surgery - Paula Escobar [...] hand s/p resection, spinal stenosis, hearing loss, [id number] squamous cell lung cancer (right lower lobe, [...] BPF w/ pleural flap on 06/19/24 -24 [place] chest tube to water seal -DVT ppx [...] TG 145. -Resume home medication. Prostate cancer [id number] adenocaarcinoma prostate s/p TRUS random biopsy 09/24/20, s/p Lupron 45 mg IM injection 11/05/20 then external beam radiation therapy completed 01/15/21 (70 Gy/28fx). ADRIANA -Follow up w/ urology as an outpatient Discharge planning. Single lives in [place]. Functionally independent at home. No skilled [...] subcutaneous lovenox Labs and medications reviewed in [facility] SIGNATURE: Pastora Pierre APRN.[facility] PAGER: [phone] DATE of SERVICE: June 22, 2024 TIME of SERVICE: 11:31 AM XR CHEST 1V FRONTAL PORT Observed: 06/22 6:40 AM Status: F Source: [facility] * * *Final Report* * * DATE [...] cardiomediastinal silhouette. Other: . IMPRESSION: See result. Field Technical Support Consultant: IMMANUEL Transcribe Date/Time: Jun 22 2024 10:53A Dictated by : ANA CRISTINA MAYFIELD MD This examination was interpreted and the report reviewed and electronically signed by: ANA CRISTINA MAYFIELD MD on Jun 22 2024 10:53AM EST [id number] BAS METAB 2000 PNL SERPL Collected: 6:05 AM Status: F Source: [facility] Order Comment: Specimen Type : BLOOD SPECIMEN Ordering Facility: [facility] Address: [address] [place] [address] TYPE CODE TESTS RESULT OUT OF RANGE REFERENCE UNITS LAB 2345-7(LOINC) Glucose SerPl-mCnc 86 74-99 mg/dL Result Comment: The [place] Diabetes Association (ADA) provides guidance for cutoff [...] Standards of Medical Care in Diabetes 2016, [place] Diabetes Association. Diabetes Care. 2016.39(Suppl 1). LAB 3094-0(LOINC) BUN SerPl-mCnc 10 9-24 mg/ dL LAB 2160-0(LOINC) Creat SerPl-mCnc 0.51 Low 0.73-1.22 mg/dL LAB 2951-2(LOINC) Sodium SerPl-sCnc 141 136-144 mmol/L LAB 2823-3(LOINC) Potassium SerPl-sCnc 3.8 3.7-5.1 mmol/L LAB 2075-0(LOINC) Chloride SerPl-sCnc 105 98-107 mmol/L LAB 2028-9(LOINC) CO2 SerPl-sCnc 21 Low 22-30 mmo l/L LAB 91430-3(LOINC) Anion Gap SerPl-sCnc 15 8-15 mmol/L LAB 19779-1(LOINC) Calcium SerPl-mCnc 9.0 8.5-10.2 mg/dL LAB 15486-0(LOINC) Creatinine + eGFR Pnl SerPlBld 108 >=60 [...] accurately reflect actual GFR. Performed By: #### 94028-3 # ### [facility] CLIA [id number] [address] [place] [address] STATES OF [facility] CBC PNL BLD AUTO Collected: 5 6:05 AM Status: F Source: [facility] Order Comment: Specimen Type : BLOOD SPECIMEN Ordering Facility: [facility] Address: [address] [place] [address] TYPE CODE TESTS RESULT OUT OF RANGE [...] MCHC RBC Auto-mCnc 33.4 30.5-36.0 g/dL LAB 92572-4(LOINC) RDW RBC-Rto 14.6 11.5-15.0 % LAB 777-3(LOINC) Platelet # Bld Auto 178 150-400 k/uL LAB 56696-1(LOINC) PMV Bld Auto 9.4 9.0-12.7 fL LAB 771-6(LOINC) nRBC # Bld Auto <0.01 <0.01 k/uL Performed By: #### 19949-2 # ### [facility] CLIA [id number] [address] [place] [address] [place] PROGRESS Observed: 06/21/2024 12:37 PM Status: COMPLETED Source: [facility] HNO ID: [id number] Author: PAULA ESCOBAR MD, PhD Service: Thoracic Surgery Author Type: Physician Type: Progress Notes Filed: 06/21/2024 18:27 Note Text: [facility] POST-OP PROGRESS NOTE Stevie Angeles [id number] PRIMARY SERVICE: Thoracic Surgery - Paula Escobar [...] hand s/p resection, spinal stenosis, hearing loss, [id number] squamous cell lung cancer (right lower lobe, [...] BPF w/ pleural flap on 06/19/24 -24 [place] chest tube x 2 (posterior tube goes [...] TG 145. -Resume home medication. 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 ADRIANA -Follow up w/ urology as an outpatient Discharge planning. Single lives in [place]. Functionally independent at home. No skilled [...] subcutaneous lovenox Labs and medications reviewed in [facility] SIGNATURE: Pastora Pierre APRN.CNP PAGER: [phone] DATE of SERVICE: June 21, 2024 TIME of SERVICE: 12:38 PM Staff Stable Minimal Pain good CXR No clear space Plan Probably d/c straight chest tube and home with drain Paula Escobar MD, PhD XR CHEST 1V FRONTAL PORT Observed: 06/21 6:25 AM Status: F Source: [facility] * * *Final Report* * * DATE [...] right lateral chest wall. IMPRESSION: See result. Field Technical Support Consultant: PSCHerbert Transcribe Date/Time: Jun 21 2024 8:53A Dictated by : ANA CRISTINA MAYFIELD MD This examination was interpreted and the report reviewed and electronically signed by: ANA CRISTINA MAYFIELD MD on Jun 21 2024 8:55AM EST [id number] CBC PNL BLD AUTO Collected: 2:15 AM Status: F Source: [facility] Order Comment: Specimen Type : BLOOD SPECIMEN Ordering Facility: [facility] Address: [address] [place] [address] TYPE CODE TESTS RESULT OUT OF RANGE [...] MCHC RBC Auto-mCnc 33.4 30.5-36.0 g/dL LAB 84184-4(INC) RDW RBC-Rto 14.6 11.5-15.0 % LAB 777-3(INC) Platelet # Bld Auto 209 150-400 k/uL LAB 06953-9(INC) PMV Bld Auto 9.0 9.0-12.7 fL LAB 771-6([facility]) nRBC # Bld Auto <0.01 <0.01 k/uL Performed By: #### 08223-8 # ### [facility] CLIA [id number] [address] [place] [address] [place] BAS METAB 2000 PNL SERPL Collected: 2:15 AM Status: F Source: [facility] Order Comment: Specimen Type : BLOOD SPECIMEN Ordering Facility: [facility] Address: [address] [place] [address] TYPE CODE TESTS RESULT OUT OF RANGE REFERENCE UNITS LAB 2345-7([facility]) Glucose SerPl-mCnc 98 74-99 mg/dL Result Comment: The [place] Diabetes Association (ADA) provides guidance for cutoff [...] Standards of Medical Care in Diabetes 2016, [place] Diabetes Association. Diabetes Care. 2016.39(Suppl 1). LAB 3094-0(LOINC) BUN SerPl-mCnc 11 9-24 mg/ dL LAB 2160-0(LOINC) Creat SerPl-mCnc 0.55 Low 0.73-1.22 mg/dL LAB 2951-2(LOINC) Sodium SerPl-sCnc 137 136-144 mmol/L LAB 2823-3(LOINC) Potassium SerPl-sCnc 4.0 3.7-5.1 mmol/L LAB 2075-0(LOINC) Chloride SerPl-sCnc 102 98-107 mmol/L LAB 2028-9(LOINC) CO2 SerPl-sCnc 25 22-30 mmo l/L LAB 45490-6(LOINC) Anion Gap SerPl-sCnc 10 8-15 mmol/L LAB 00427-0(LOINC) Calcium SerPl-mCnc 9.4 8.5-10.2 mg/dL LAB 76575-8(LOINC) Creatinine + eGFR Pnl SerPlBld 106 >=60 [...] accurately reflect actual GFR. Performed By: #### 25789-9 # ### [facility] CLIA [id number] [address] [place] [address] OF [facility] PLAN OF CARE Observed: 06/20/2024 5:39 PM Status: COMPLETED Source: [facility] HNO ID: [id number] Author: KIRK AGUILAR, Kathryn Service: Pharmacy Author Type: Varnishing Unit Operator Type: Plan of Care Filed: 06/20/2024 17:39 Note Text: Insurance investigation completed Patient has active prescription insurance: Yes - Patient's insurance is in-network with [facility] Insurance loaded into [place]: Already loaded Test claim was completed to verify insurance is active: Successful Any questions, please reach out to your medication leasing coordinator. Kirk Aguilar CPhT Medication Shrimp Picker [id number] PROGRESS Observed: 06/20/2024 4:03 PM Status: COMPLETED Source: [facility] HNO ID: [id number] Author: MINI LINDO RN Service: ? Author Type: Registered Nurse Type: Progress Notes Filed: 06/20/2024 16:04 Note Text: Transitional Care Management (TCM) Inpatient Outreach N/A - No specialty updates needed Summary: Patient admitted to: [facility] Patient admitted on: 06/19/2024 Admitted for: bronchopleural fistula Contact made with patient: No Mychart message sent Outreach ended. Mini Lindo RN June 20, 2024 PROGRESS Observed: 06/20/2024 12:14 PM Status: COMPLETED Source: [facility] HNO ID: [id number] Author: PASTORA PIERRE APRN.DRYWALLER Service: Thoracic Surgery Author Type: Nurse Practitioner Type: Progress Notes Filed: 06/20/2024 12:14 Note Text: [facility] POST-OP PROGRESS NOTE Stevie Laura [id number] PRIMARY SERVICE: Thoracic Surgery - Paula Escobar [...] hand s/p resection, spinal stenosis, hearing loss, [id number] squamous cell lung cancer (right lower lobe, [...] BPF w/ pleural flap on 06/19/24 -24 [place] chest tube x 2 (posterior tube goes [...] TG 145. -Resume home medication. Prostate cancer [id number] adenocaarcinoma prostate s/p TRUS random biopsy 09/24/20, s/p Lupron 45 mg IM injection 11/05/20 then external beam radiation therapy completed 01/15/21 (70 Gy/28fx). ADRIANA -follow up w/ urology Discharge planning. Single lives in [place]. Functionally independent at home. No skilled needs for home anticipated -ongoing collaboration w/ case mgmt, patient To Do or to Watch: Chest tube x 2 to water seal Ambulate in jiménez 3-4 times per day DC BLACKJACK PIT BOSS Advance to regular diet Remove luz and [...] subcutaneous lovenox Labs and medications reviewed in [facility] SIGNATURE: Pastora Pierre APRN.DRYWALLER PAGER: [phone] DATE of SERVICE: June 20, 2024 TIME of SERVICE: 12:14 PM CASE MARGOTH BUTTERFIELDWADE MARROQUIN Observed: 06/20/2024 10:27 AM Status: COMPLETED Source: [facility] HNO ID: [id number] Author: MITCH KOCH RN Service: Care Management [...] Current Advance Directive: Health Care Power of [employer] Bl[employer] In Chart: Yes Up To Date and [...] Patient Goal(s): Be able to go home [place] Explained: [place] Given: Yes (Pt declined HHC) [...] home [address] [facility] [address] Needs Prior to Discharge: Needs Prior to Discharge: None (Offered HHC in event discharged with CT for which pt declines. 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 11-16-2023 Robotic-assisted right lower lobectomy with right lower lobe bronchoplasty and mediastinal lymph node dissection [id number] RLL SCC and RUL spiculated and cavitary lesion 6 click 20 98% RA Met with pt. He lives alone in [address]. He states he is functionally independent [employer]IST[employer]. Denies current use of assist device. Jessica Rodríguez will transport home at [place]. Discussed HHC in event he is discharged with CT for which pt is declining. He states Niece can assist as needed. SIGNATURE: Mitch Koch RN PATIENT NAME: Stevie Angeles DATE: June 20, 2024 TIME: 10:27 AM XR CHEST 1V FRONTAL PORT Observed: 06/20 6:17 AM Status: F Source: [facility] * * *Final Report* * * DATE [...] cardiomediastinal silhouette. Other: . IMPRESSION: See result. Field Technical Support Consultant: PSCB Transcribe Date/Time: Jun 20 2024 10:15A Dictated by : SANGEETHA MCDONALD MD This examination was interpreted and the report reviewed and electronically signed by: SANGEETHA MCDONALD MD on Jun 20 2024 10:16AM EST [id number] BAS METAB 2000 PNL SERPL Collected: 6:00 AM Status: F Source: [facility] Order Comment: Specimen Type : BLOOD SPECIMEN Ordering Facility: [facility] Address: [address] [place] [address] TYPE CODE TESTS RESULT OUT OF RANGE REFERENCE UNITS LAB 2345-7(LOINC) Glucose SerPl-mCnc 95 74-99 mg/dL Result Comment: The [place] Diabetes Association (ADA) provides guidance for cutoff [...] Standards of Medical Care in Diabetes 2016, [place] Diabetes Association. Diabetes Care. 2016.39(Suppl 1). LAB 3094-0(LOINC) BUN SerPl-mCnc 9 9-24 mg/ dL LAB 2160-0(LOINC) Creat SerPl-mCnc 0.51 Low 0.73-1.22 mg/dL LAB 2951-2(LOINC) Sodium SerPl-sCnc 138 136-144 mmol/L LAB 2823-3(LOINC) Potassium SerPl-sCnc 4.9 3.7-5.1 mmol/L LAB 2075-0(LOINC) Chloride SerPl-sCnc 100 98-107 mmol/L LAB 2028-9(LOINC) CO2 SerPl-sCnc 24 22-30 mmo l/L LAB 32989-5(LOINC) Anion Gap SerPl-sCnc 14 8-15 mmol/L LAB 73250-3(LOINC) Calcium SerPl-mCnc 9.7 8.5-10.2 mg/dL LAB 18623-7(LOINC) Creatinine + eGFR Pnl SerPlBld 108 >=60 [...] accurately reflect actual GFR. Performed By: #### 99104-9 # ### [facility] CLIA [id number] [address] [place] [address] [place] CBC PNL BLD AUTO Collected: 6:00 AM Status: F Source: [facility] Order Comment: Specimen Type : BLOOD SPECIMEN Ordering Facility: [facility] Address: [address] [place] [address] TYPE CODE TESTS RESULT OUT OF RANGE [...] MCHC RBC Auto-mCnc 32.9 30.5-36.0 g/dL LAB 64817-3(LOINC) RDW RBC-Rto 14.5 11.5-15.0 % LAB 777-3(LOINC) Platelet # Bld Auto 222 150-400 k/uL LAB 89113-9(LOINC) PMV Bld Auto 9.0 9.0-12.7 fL LAB 771-6(LOINC) nRBC # Bld Auto <0.01 <0.01 k/uL Performed By: #### 05208-9 # ### [facility] CLIA [id number] [address] [place] [address] OF [place] CNPTOUTREACH Observed: 06/20/2024 12:00 AM Status: COMPLETED Source: [facility] Patient Outreach ([facility]) STEVIE ANGELES ([id number]) 1950 M DEF Date Time Provider Department 06/20/24 MINI LINDO [facility] During your visit today, we recorded the following information about you: Mini Lindo RN 06/20/2024 4:04 PM Signed Transitional Care Management (TCM) Inpatient Outreach N/A - No specialty updates needed Summary: Patient admitted to: [facility] Patient admitted on: 06/19/2024 Admitted for: [...] Observed: 06/19/2024 12:36 PM Status: COMPLETED Source: [facility] HNO ID: [id number] Author: GERALDINE TORRES MD Service: ? Author Type: Anesthesiologist Type: Anesthesia Postprocedure Evaluation Filed: 06/19/2024 12:36 Note Text: POST ANESTHESIA EVALUATION NOTE : 1950 Procedure Summary Date: 06/19/24 Room / Location: [address] AND VAS Anesthesia Start: 0816 [...] June 19, 2024 TIME: 12:36 PM CSN: [id number] PROGRESS Observed: 06/19/2024 12:30 PM Status: COMPLETED Source: [facility] HNO ID: [id number] Author: MARLEE SOLANO APRN.DRYWALLER Service: Thoracic Surgery Author Type: Nurse Practitioner Type: Progress Notes Filed: 06/19/2024 15:21 Note Text: [facility] POST-OP PROGRESS NOTE Stevie Angeles [id number] PRIMARY SERVICE: Thoracic Surgery - Paula Escobar [...] hand s/p resection, spinal stenosis, hearing loss, [id number] squamous cell lung cancer (right lower lobe, [...] BPF w/ pleural flap on 06/19/24 -24 [place] chest tube x 2 (posterior tube goes [...] TG 145. -Resume home medication. Prostate cancer [id number] adenocaarcinoma prostate s/p TRUS random biopsy 09/24/20, s/p Lupron 45 mg IM injection 11/05/20 then external beam radiation therapy completed 01/15/21 (70 Gy/28fx). ADRIANA -follow up w/ urology Discharge planning. Single lives in [place]. Functionally independent at home. No skilled [...] subcutaneous heparin Labs and medications reviewed in [facility] SIGNATURE: Fay Childress APRN.DRYWALLER PAGER: [phone] DATE of SERVICE: June 19, 2024 TIME of SERVICE: 12:30 PM XR CHEST 1V FRONTAL PORT Observed: 06/19 12:25 PM Status: F Source: [facility] * * *Final Report* * * DATE [...] cardiomediastinal silhouette. Other: . IMPRESSION: See result. Field Technical Support Consultant: PSCB Transcribe Date/Time: Jun 19 2024 5:35P Dictated by : GILMA RAMSEY MD This examination was interpreted and the report reviewed and electronically signed by: GILMA RAMSEY MD on Jun 19 2024 5:38PM EST [id number] BRIEF OP NOT Observed: 06/19/2024 11:21 AM Status: COMPLETED Source: [facility] HNO ID: [id number] Author: DON MIRAMONTES MD Service: Thoracic Surgery Author Type: Resident Type: Brief Op Note Filed: 06/19/2024 11:29 Note Text: BRIEF OPERATIVE / PROCEDURE NOTE LOG ID: [id number] SURGERY/PROCEDURE DATE: 06/19/2024 INCISION/PROCEDURE START TIME: 9:12 AM INCISION CLOSE/PROCEDURE END TIME: 11:20 AM SURGEON(S)/PROCEDURALIST(S) AND POLICEMAN(S): Surgeons and Role: * Paula Escobar MD, PhD - Primary * Don Miramontes MD - Assisting Registered Nurse Clinical Psychiatrist: Alok Mae RN SURGERY/PROCEDURE(S): Flexible bronchoscopy Right [...] Observed: 06/19/2024 9:11 AM Status: COMPLETED Source: [facility] HNO ID: [id number] Author: GERALDINE TORRES MD Service: ? Author [...] Patient identity confirmed: arm band and care care team assistant Staffing Anesthesiologist: Geraldine Torres MD Resident: Bright [...] June 19, 2024 TIME: 9:11 AM CSN: [id number] ANES PRE-OP Observed: 06/19/2024 7:55 AM Status: COMPLETED Source: [facility] HNO ID: [id number] Author: GERALDINE TORRES MD Service: ? Author [...] Stage 1 mild COPD by GOLD classification ([facility]) I - PHYSICAL EVALUATION AIRWAY Patient intubated: [...] and consent discussed: yes. Patient / Responsible Green Party agrees to proceed: yes Patient / [...] June 19, 2024 TIME: 7:55 AM CSN: [id number] OPERATIVE NO Observed: 06/19/2024 12:00 AM Status: COMPLETED Source: [facility] HNO ID: [id number] Author: PAULA ESCOBAR MD, PhD Service: Thoracic Surgery Author Type: Physician Type: Operative Report Filed: 06/22/2024 10:53 Note Text: [facility] - Cardiothoracic Operative Report [id number] [address] [place] STEVIE ANGELES : 1950 AGE: 73. SEX: M PATIENT TYPE: I HOSP SV: [facility] LOCATION: [id number] ATTENDING PHYSICIAN: Paula Escobar M.D., Ph.D. CSN NUMBER: [id number] DATE OF SURGERY/PROCEDURE: 06/19/2024 INCISION/PROCEDURE START TIME: [...] pleural fistula. SURGEON: Paula Escobar M.D., Ph.D. POLICEMAN: 1. Don Miramontes. 2. Alok Mae RN. [...] a 4th port was used by an executive administrative assistant. With [address] [...] available if needed. Paula Escobar M.D., Ph.D. SM:[id number] [phone] PROGRESS Observed: 06/18/2024 10:26 AM Status: COMPLETED Source: [facility] HNO ID: [id number] Author: MALIA EGAN, DO Service: ? Author Type: Physician Type: Progress Notes Filed: 06/18/2024 10:38 Note Text: Heart , Vascular and Thoracic [place] DEPARTMENT OF VASCULAR SURGERY OUTPATIENT VISIT DATE [...] hyperlipidemia Prostate cancer (HCC) 2020 xrt at [facility] [place] Smoker former quit 2021 Spinal stenosis of [...] with more than 50% of the total dhqv-nf-ypak time of the visit in counseling / coordination of care. Malia Egan, DO US ABD AORTA COMPLETE VAS LAB Observed: 06/18/2024 9:54 AM Status: F Source: [facility] Non-Invasive [facility] Abdominal Aorta Limited Date of service/time: 06/18/2024 9:54:21 AM Name: STEVIE ANGELSE Date of : 1950 Age: 73 years [...] physician: Anton Dennis MD, MICHAEL Final CC [employer] [facility] Image : [id number] See Link below for Image CNOV Observed: 06/18/2024 9:45 AM Status: COMPLETED Source: [facility] Office Visit (VASSMD) STEVIE ANGELES ([id number]) 1950 M DEF Date Time Provider Department 06/18/24 9:45 AM MALIA EGAN During your visit today, we recorded the following information about you: Pulse Blood pressure 77/minute 117/72 Malia Egan DO 06/18/2024 10:38 AM Signed Heart , Vascular and Thoracic [place] DEPARTMENT OF VASCULAR SURGERY OUTPATIENT VISIT DATE [...] hyperlipidemia Prostate cancer (HCC) 2020 xrt at [facility] [place] Smoker former quit 2021 Spinal stenosis of [...] with more than 50% of the total vbst-bp-zfob time of the visit in counseling / [...] Trial and the Aneurysm Detection and Management (BEHTANY) Trial, both which showed no survival benefit [...] repair to be associated with 4% mortality. [facility] experience has been 2%. Endovascular AAA repair has 2% mortality nationwide in medicare population and 1% at [facility]. This shows that either open AAA [...] scans or ultrasound. Referring Provider: MALIA EGAN [[id number]] Allergies As of Date: 06/18/2024 (No Known Allergies) Date Reviewed: 06/18/2024 Reviewed by: Suzie Lauren OCCA - Fully Assessed Reason for Visit: Established Patient [175] Primary Visit Diagnosis:Infrarenal abdominal aortic aneurysm (AAA) without rupture [I71.43] Order(s):US ABD AORTA COMPLETE VAS LAB [9065022] Order #: [id number] FUTURE Prescriptions as of 06/18/2024 - fluticasone-salmeterol [...] repair to be associated with 4% mortality. [facility] experience has been 2%. Endovascular AAA repair has 2% mortality nationwide in medicare population and 1% at [facility]. This shows that either open AAA [...] for Encounter Date Provider Department Center 06/18/20[id number] Encounter Status:Closed by MALIA EGAN on 06/18/24 CNOV Observed: 06/13/2024 3:00 PM Status: COMPLETED Source: [facility] Office Visit ([facility]) STEVIE ANGELES ([id number]) 1950 M DEF Date Time Provider Department 06/13/24 3:00 PM THAD BELTRAN [facility] During your visit today, we recorded the following information about you: Pulse Blood pressure Weight 80/minute 120/72 80.2 kg Thad Beltran MD 06/14/2024 4:08 PM [facility] DEPARTMENT OF PULMONARY MEDICINE [...] in agreement. Thad Beltran MD, Staff, Respiratory [place] [facility] CHIEF COMPLAINT: Abnormal Imaging HISTORY OF PRESENT ILLNESS: Stevie Angeles is a 72 year old male with PMHx of hypertension, hyperlipidemia, Spinal Stenosis, AAA measuring, prostate cancer and former smoker Patient is here for a follow up. Underwent routine surveillance imaging with CT chest on 05/09/2023 which showed an enlarging right basilar pneumothorax following that patient was admitted to [facility] final read suggestive of large cystic space [...] No significant exposure Silica: No significant exposure Dale: Present Mold: Present Hot tub: No significant [...] COVID-19 original vaccine, age 12+ yr, monovalent (BioVidria - PURPLE TOP) 05/26/2020 06/17/2020 02/04/2021 COVID-19 vaccine, age 12+ yr (MODERNA) 02/06/2024 COVID-19 vaccine, age 12+ yr (PFIZER-BIONTECH COMIRNATY) 02/14/2023 COVID-19 vaccine, age 12+ yr, bivalent (BioVidria) 12/28/2021 influenza (HD-IIV3) vaccine, age 65+ yr, [...] on 06/13/2024 Thad Beltran MD, Staff, Respiratory [place] [facility] Allergies As of Date: 06/13/2024 (No Known Allergies) Date Reviewed: 06/13/2024 Reviewed by: Carte, Cristopher, MITIGATION SUPERVISOR - Fully Assessed Reason for Visit: Follow [...] Stage 1 mild COPD by GOLD classification ([facility]) *11/17/2023 Abscess of lower lobe of right [...] for Encounter Date Provider Department Center 06/13/2024 [id number], ELIZABE*[facility] Encounter Status:Closed by THAD BELTRAN on 06/14/24 PROGRESS Observed: 06/13/2024 12:59 PM Status: COMPLETED Source: [facility] HNO ID: [id number] Author: THAD BELTRAN MD Service: ? Author Type: Physician Type: Progress Notes Filed: 06/14/2024 16:08 Note Text: RESPIRATORY [place] DEPARTMENT OF PULMONARY MEDICINE OFFICE VISIT FOLLOW [...] in agreement. Thad Beltran MD, Staff, [facility] [place] [facility] COMPLAINT: Abnormal Imaging HISTORY OF PRESENT ILLNESS: Stevie Angeles is a 72 year old male with PMHx of hypertension, hyperlipidemia, Spinal Stenosis, AAA measuring, prostate cancer and former smoker Patient is here for a follow up. Underwent routine surveillance imaging with CT chest on 05/09/2023 which showed an enlarging right basilar pneumothorax following that patient was admitted to [facility] final read suggestive of large cystic space [...] No significant exposure Silica: No significant exposure Dale: Present Mold: Present Hot tub: No significant [...] COVID-19 original vaccine, age 12+ yr, monovalent (BioVidria - PURPLE TOP) 05/26/2020 06/17/2020 02/04/2021 COVID-19 vaccine, age 12+ yr (MODERNA) 02/06/2024 COVID-19 vaccine, age 12+ yr ([employer] COMIRNATY) 02/14/2023 COVID-19 vaccine, age 12+ yr, bivalent (SemetricECH) 12/28/2021 influenza (HD-IIV3) vaccine, age 65+ yr, [...] on 06/13/2024 Thad Beltran MD, Staff, Respiratory [place] [facility] PROGRESS Observed: 06/09/2024 11:20 AM Status: COMPLETED Source: [facility] HNO ID: [id number] Author: PAULA ESCOBAR MD, PhD Service: ? Author Type: Physician Type: Progress Notes Filed: 06/09/2024 11:20 Note Text: I have read and reviewed the documentation and agree. I wish to add the following findings which have been dictated and will be communicated back to the requesting physician. Paula Escobar MD, PhD URINALYSIS, DIPSTICK ONLY Collected: 12:28 PM Status: F Source: [facility] Order Comment: Specimen Type : URINE SPECIMEN Ordering Facility: [facility] Address: [address] [place] [address] TYPE CODE TESTS RESULT OUT OF RANGE REFERENCE UNITS LAB 5778-6(LOINC) Color Ur Dark Yellow Abnormal Yellow LAB 64416-3(LOINC) Clarity Spec Clear Clear LAB 5792-7(LOINC) Glucose [...] Negative Negative Performed By: #### UA #### [facility] CLIA [id number] [address] [place] [address] [place] CNOV Observed: 06/07/2024 11:40 AM Status: COMPLETED Source: [facility] Office Visit (CARTMN) STEVIE ANGELES ([id number]) 1950 M DEF Date Time Provider Department [...] Prostate cancer (HCC) Comment: xrt at [facility] No date: Smoker Comment: former quit 2021 [...] hyperlipidemia Prostate cancer (HCC) 2020 xrt at [facility] Smoker former quit 2021 Spinal stenosis of [...] 05/17/24 2:22 PM Impression IMPRESSION: See result. Field Technical Support Consultant: PSCB Transcribe Date/Time: May 17 2024 3:17P [...] No pneumothorax. Cardiomediastinal silhouette: Stable cardiac silhouette. Field Technical Support Consultant: [facility] Transcribe Date/Time: May 12 2024 9:59A Dictated [...] right upper lobe spiculated nodule with cavitations. Field Technical Support Consultant: [facility] Transcribe Date/Time: May 11 2024 3:35P Dictated [...] and consent discussed: yes. Patient / Responsible Green Party agrees to proceed: yes Patient / [...] AM Pager/Contact #: Referring Provider: PAULA ESCOBAR [[id number]] Allergies As of Date: 06/07/2024 (No Known [...] Stage 1 mild COPD by GOLD classification ([facility]) *11/17/2023 Abscess of lower lobe of right [...] Observed: 06/07/2024 11:40 AM Status: COMPLETED Source: [facility] HNO ID: [id number] Author: KOLBY SABA MD Service: ? Author [...] Prostate cancer (HCC) Comment: xrt at [facility] No date: Smoker Comment: former quit 2021 [...] COVID-19 vaccine, age 12+ yr, 2022- season (QQTechnology-BIONTVoovio aka 3Ditize) 12/28/2021 Imm Admin: COVID-19 vaccine, age 12+ yr, bivalent (BioVidria) Only the first 3 history entries have [...] hyperlipidemia Prostate cancer (HCC) 2020 xrt at [facility] [place] Smoker former quit 2021 Spinal stenosis of [...] 05/17/24 2:22 PM Impression IMPRESSION: See result. Field Technical Support Consultant[facility] Transcribe Date/Time: May 17 2024 3:17P [...] No pneumothorax. Cardiomediastinal silhouette: Stable cardiac silhouette. Field Technical Support Consultant: [facility] Transcribe Date/Time: May 12 2024 9:59A Dictated [...] right upper lobe spiculated nodule with cavitations. Field Technical Support Consultant: [facility] Transcribe Date/Time: May 11 2024 3:35P Dictated [...] and consent discussed: yes. Patient / Responsible Green Party agrees to proceed: yes Patient / [...] Observed: 06/07/2024 11:20 AM Status: COMPLETED Source: [facility] Office Visit (THORMN) STEVIE ANGELES ([id number]) 1950 M [facility] Date Time Provider Department 06/07/24 11:20 AM PAULA ESCOBAR During your visit today, we recorded the following information about you: Temperature Pulse Respiration Blood pressure 98.6 degrees 75/minute 14/minute 124/80 Weight Height 76.5 kg 1.778 m Paula Escobar MD, PhD 06/17/2024 8:05 AM Signed [address] [address] [place] DEPARTMENT OF THORACIC AND CARDIOVASCULAR SURGERY NAME: STEVIE ANGELES CLINIC #: [id number] DATE: 06/07/2024 AGE: 73 PHYSICIAN: Paula Escobar [...] good venous access. Paula Escobar M.D., Ph.D. SM:[id number] [phone] Eliane Onofre RN 06/09/2024 11:20 AM Addendum [...] with: 1. Enlarging/hypermetabolic/cavitary RUL nodule c/w NSCLC, [id number], Stage IA3, s/p SBRT 02/01/24 [3400 cGy/1 [...] Barriers To This Education Session: No barriers Track Helper Present: Not Applicable The Following Physical Limitations [...] the requesting physician. Paula Escobar MD, PhD Thermal Cutting Tracer Machine Operator: Transcribed Clinic Note (marissa) ID: [id number] 06/07/2024 11:12 AM Author: PAULA ESCOBAR Signed by PAULA ESCOBAR MD, PhD on 06/17/2024 at 8:05 AM * * * This document replaces document [id number] * * * Document text: [address] [address] [place] DEPARTMENT OF THORACIC AND CARDIOVASCULAR SURGERY NAME: SETVIE ANGELES [facility] #: [id number] DATE: 06/07/2024 AGE: 73 PHYSICIAN: Paula Escobar [...] good venous access. Paula Escobar M.D., Ph.D. :[id number] [id number] Allergies As of Date: 06/07/2024 (No Known Allergies) Date Reviewed: 06/07/2024 Reviewed by: Geni James MA - Fully Assessed Reason for Visit: Pre-Op Exam [87] Primary Visit Diagnosis:Emphysematous bleb ([facility]) [J43.9] Other Visit Diagnoses:Chronic obstructive pulmonary disease, unspecified COPD type ([facility]) [J44.9] Paroxysmal atrial fibrillation ([facility]) [I48.0] Personal history of malignant neoplasm of [...] Observed: 06/07/2024 11:20 AM Status: COMPLETED Source: [facility] HNO ID: [id number] Author: RADHA BOWDEN RN Service: ? Author [...] with: 1. Enlarging/hypermetabolic/cavitary RUL nodule c/w NSCLC, [id number], Stage IA3, s/p SBRT 02/01/24 [3400 cGy/1 [...] Barriers To This Education Session: No barriers Track Helper Present: Not Applicable The Following Physical Limitations [...] Observed: 06/07/2024 10:30 AM Status: COMPLETED Source: [facility] HNO ID: [id number] Author: ERMA JIN RT(R) Service: Radiology Author [...] PATIENT PRESENTS WITH AN IMPLANTABLE OR ATTACHED TRAIN STATION AGENT: No RADIOLOGY DEPARTMENT: General X-ray: Exam(s) Completed: Chest X-Ray PERIPHERAL IV DATA: Not applicable SIGNED BY: RT ALEXANDRA(R) June 07, 2024 9:55 AM CBC W AUTO DIFF BLD Collected: 06/07/2024 10:01 AM S tatus: F Source: [facility] Order Comment: Specimen Type : BLOOD SPECIMEN Ordering Facility: [facility] Address: [address] [place] [address] TYPE CODE TESTS RESULT OUT OF RANGE [...] MCHC RBC Auto-mCnc 32.4 30.5-36.0 g/dL LAB 85674-4([facility]) RDW RBC-Rto 14.4 11.5-15.0 % LAB 777-3([facility]) Platelet # Bld Auto 244 150-400 k/uL LAB 12732-8([facility]) PMV Bld Auto 8.9 Low 9.0-12.7 fL LAB 770-8([facility]) Neutrophils/leuk NFr Bld Auto 66.8 % LAB 751-8([facility]) Neutrophils # Bld Auto 4.66 1.45-7.50 k/uL LAB 736-9([facility]) Lymphocytes/leuk NFr Bld Auto 17.5 % LAB 731-0([facility]) Lymphocytes # Bld Auto 1.22 1.00-4.00 k/uL LAB 5905-5([facility]) Monocytes/leuk NFr Bld Auto 11.3 % LAB 742-7([facility]) Monocytes # Bld Auto 0.79 <0.87 k/uL LAB 713-8([facility]) Eosinophil/leuk NFr Bld Auto 2.4 % LAB 711-2([facility]) Eosinophil # Bld Auto 0.17 <0.46 k/uL LAB 706-2([facility]) Basophils/leuk NFr Bld Auto 1.6 % LAB 704-7([facility]) Basophils # Bld Auto 0.11 High <0.11 k/uL LAB 97593-5([facility]) Imm Granulocytes/fidelia k NFr Bld Auto 0.4 % LAB 01953-0([facility]) Imm Granulocytes # Bld Auto 0.03 <0.10 k/uL LAB 56040-6([facility]) nRBC/100 WBC Bld-Rto 0.0 /100 WBC LAB 771-6([facility]) nRBC # Bld Auto <0.01 <0.01 k/u L LAB 02727-3([facility]) Differential method Bld Auto Performed By: #### 82705-0 # ### [facility] CLIA [id number] [address] [place] [address] OF [facility] TYPE AND SCREEN,30 DAY Collected: 06/07 10:01 AM Status: F Source: [facility] Comment: Specimen Type : BLOOD SPECIMEN Ordering Facility: [facility] Address: [address] [place] [address] TYPE CODE TESTS RESULT OUT OF RANGE REFERENCE UNITS LAB [id number] ABO O LAB [id number] RH Positive LAB [id number] ANTIBODY SCREEN Negative Performed By: #### [id number] ## ## CC [facility]OD [facility] CLIA [id number] [address] [place] [address] [place] STAPHYLOCOCCUS AUREUS AND MR SA SCREEN, PCR, NASAL Collected: 06/07/2024 10:01 AM Status: F Source: [facility] Comment: Specimen Type : SWAB Ordering Facility: [facility] Address: [address] [place] [address] TYPE CODE TESTS RESULT OUT OF RANGE REFERENCE UNITS LAB 36658-1([facility]) SA+MRSA Pnl Nose WENDY+probe Not Detected Not Detected Performed By: #### SAPCR ### # [facility] CLIA [id number] [address] [place] [address] [place] COMP METAB 2000 PNL SERPL Collected: 10:01 AM Status: F Source: [facility] Comment: Specimen Type : BLOOD SPECIMEN Ordering Facility: [facility] Address: [address] [place] [address] TYPE CODE TESTS RESULT OUT OF RANGE REFERENCE UNITS LAB 2885-2(LOINC) Prot SerPl-mCnc 7.4 6.3-8.0 g/dL LAB 1751-7(LOINC) Albumin SerPl-mCnc 4.6 3.9-4.9 g/dL LAB 61308-6(LOINC) Calcium SerPl-mCnc 10.1 8.5-10.2 mg/dL LAB 1975-2(LOINC) Bilirub SerPl-mCnc 0.7 0.2-1.3 mg/dL LAB 6768-6(LOINC) ALP SerPl-cCnc 85 38-113 U/L LAB 1920-8(LOINC) AST SerPl-cCnc 19 14-40 U/L LAB 1742-6(LOINC) ALT SerPl-cCnc 24 10-54 U/L LAB 2345-7(LOINC) Glucose SerPl-mCnc 127 High 74-99 mg/dL Result Comment: The [place] Diabetes Association (ADA) provides guidance for cutoff [...] Standards of Medical Care in Diabetes 2016, [place] [employer] Association. Diabetes Care. 2016.39(Suppl 1). LAB 3094-0(LOINC) BUN SerPl-mCnc 6 Low 9-24 mg/ dL LAB 2160-0(LOINC) Creat SerPl-mCnc 0.55 Low 0.73-1.22 mg/dL LAB 2951-2(LOINC) Sodium SerPl-sCnc 140 136-144 mmol/L LAB 2823-3(LOINC) Potassium SerPl-sCnc 4.5 3.7-5.1 mmol/L LAB 2075-0(LOINC) Chloride SerPl-sCnc 101 98-107 mmol/L LAB 2028-9(LOINC) CO2 SerPl-sCnc 28 22-30 mmo l/L LAB 59337-6(LOINC) Anion Gap SerPl-sCnc 11 8-15 mmol/L LAB 62113-3(LOINC) Creatinine + eGFR Pnl SerPlBld 106 >=60 [...] accurately reflect actual GFR. Performed By: #### 23401-9 # ### [facility] CLIA [id number] [address] [place] [address] [place] PT PNL PPP Collected: 10:01 AM Status: F Source: [facility] Order Comment: Specimen Type : BLOOD SPECIMEN Ordering Facility: [facility] Address: [address] [place] [address] TYPE CODE TESTS RESULT OUT OF RANGE REFERENCE UNITS LAB 5902-2(LOINC) Prothrombin time 11.5 9.7-13.0 sec LAB 6301-6(LOINC) INR PPP 1.1 0.9-1.3 Result Comment: Vitamin K An tagonist (VKA) Therapeutic Range: INR 2 to 3 (Target INR of 2.5) Note: For patients treated with VKA drugs, such as warfarin, the [place] [employer] 2012 Guideline recommends [...] Chest 2012, 141:7S-47S Vicki RA, et al. [facility] 2017, 70: 252-289 Performed By: #### 25736-6, 56500-9 #### [facility] CLIA [id number] [address] [place], [place] [address] [place] APTT PPP Collected: 5 10:01 AM Status: F Source: [facility] Order Comment: Specimen Type : BLOOD SPECIMEN Ordering Facility: [facility] Address: [address] [place] [address] TYPE CODE TESTS RESULT OUT OF RANGE REFERENCE UNITS LAB 83040-9(LOINC) aPTT PPP 27.9 23.0-32.4 sec Performed By: #### 63170-2, 31272-0 #### [facility] CLIA [id number] [address] [place] [address] STATES OF [facility] XR CHEST 2V FRONTAL/LAT Observed: 2024 9:57 AM Status: F Source: [facility] * * *Final Report* * * DATE [...] right basilar pneumothorax without significant interval change. Field Technical Support Consultant: PSCHerbert Transcribe Date/Time: Jun 07 2024 1:52P Dictated by : JEANETTE MENJIVAR MD This examination was interpreted and the report reviewed and electronically signed by: POPEYE RODRIGUEZ MD on Jun 07 2024 4:23PM EST [id number] Observed: 06/07/2024 12:00 AM Status: COMPLETED Source: [facility] HNO ID: [id number] Author: PAULA ESCOBAR MD, PhD Service: Thoracic Surgery Author Type: Physician Type: Progress Notes Filed: 06/17/2024 08:05 Note Text: [address] [place] [address] [place] DEPARTMENT OF THORACIC AND CARDIOVASCULAR SURGERY NAME: STEVIE ANGELES [facility] #: [id number] DATE: 06/07/2024 AGE: 73 PHYSICIAN: Paula Escobar [...] good venous access. Paula Escobar M.D., Ph.D. [id number] /[phone] PROGRESS Observed: 05/25/2024 12:16 PM Status: COMPLETED Source: [facility] HNO ID: [id number] Author: MATA MUNSON RN Service: ? Author [...] Observed: 05/22/2024 12:00 AM Status: COMPLETED Source: [facility] Telephone (HEMMED) JACQUI ANGELESYDE ([id number]) 1950 M DEF Date Time Provider Department [...] Observed: 05/20/2024 3:00 PM Status: COMPLETED Source: [facility] ID: [id number] Author: ELISA GOSS MD Service: ? Author Type: Physician Type: Progress Notes Filed: 05/20/2024 14:19 Note Text: I have communicated my name and active licensure. The patient's identity and physical location were verified at the time of this visit. Either the patient or their legal b2b outside sales representative has been informed of the risks and benefits of -- and alternatives to -- treatment through a remote evaluation and consents to proceed with the evaluation remotely. Radiation Oncology - Follow Up Note PATIENT NAME: Stevie Angeles PATIENT DIAGNOSIS: 73 year old man with: Enlarging/hypermetabolic/cavitary RUL nodule c/w NSCLC, gI4yG5Q1, Stage IA3, s/p SBRT 02/01/24 [3400 cGy/1 [...] with: 1. Enlarging/hypermetabolic/cavitary RUL nodule c/w NSCLC, xR8gQ0F3, Stage IA3, s/p SBRT 02/01/24 [3400 cGy/1 [...] Observed: 05/17/2024 3:30 PM Status: COMPLETED Source: [facility] Office Visit (THORMN) STEVIE ANGELES ([id number]) 1950 [facility] Date Time Provider Department 05/17/24 3:30 PM ROMINA BEDOLLA During your visit today, we recorded the following information about you: Temperature Pulse Blood pressure Weight 98.5 degrees 82/minute 110/73 77 kg Height 1.778 m Romina Bedolla APRN.DRYWALLER 05/17/2024 4:36 PM Signed Part of this note was copied from previous note, all content has been individually reviewed, updated as necessary, and thoroughly reviewed. [facility] - OUTPATIENT THORACIC SURGERY CLINIC NOTE PT NAME: Stevie Angeles [facility] NO: [id number] THORACIC SURGEON: Paula Escobar M.D. DATE OF [...] the inked margin) were reviewed at the [facility] thoracic pathology consensus conference on 11/23/23. Dr. [...] return for TCI with Dr Dl Bedolla APRN.DRYWALLER Referring Provider: JERRY GIRALDO [[id number]] Allergies As of Date: 05/17/2024 (No Known [...] for Encounter Date Provider Department Center 05/17/2024 [id number] BEDOLLA Encounter Status:Closed by ROMINA BEDOLLA on 05/17/24 PROGRESS Observed: 05/17/2024 2:32 PM Status: COMPLETED Source: [facility] HNO ID: [id number] Author: ROMINA BEDOLLA APRN.DRYWALLER Service: ? Author Type: Nurse Practitioner Type: Progress Notes Filed: 05/17/2024 16:36 Note Text: Part of this note was copied from previous note, all content has been individually reviewed, updated as necessary, and thoroughly reviewed. [facility] - OUTPATIENT THORACIC SURGERY CLINIC NOTE PT NAME: [facility] NO: [id number] THORACIC SURGEON: Paula Escobar M.D. DATE OF [...] the inked margin) were reviewed at the [facility] thoracic pathology consensus conference on 11/23/23. Dr. [...] return for TCI with Dr Dl Bedolla, TIMBER POISONER.DRYWALLER PROGRESS Observed: 05/17/2024 2:30 PM Status: COMPLETED Source: [facility] HNO ID: [id number] Author: JENNIFER MERCADO RT(R) Service: Radiology Author [...] PATIENT PRESENTS WITH AN IMPLANTABLE OR ATTACHED TRAIN STATION AGENT: No RADIOLOGY DEPARTMENT: General X-ray: Exam(s) Completed: Chest X-Ray PERIPHERAL IV DATA: Not applicable SIGNED BY: RT Alexandra(R) May 17, 2024 2:22 PM XR CHEST 2V FRONTAL/LAT Observed: 2024 2:22 PM Status: F Source: [facility] * * *Final Report* * * DATE [...] and soft tissues: Unremarkable. IMPRESSION: See result. Field Technical Support Consultant: IMMANUEL Transcribe Date/Time: May 17 2024 3:17P Dictated by : QUAN JACQUES MD This examination was interpreted and the report reviewed and electronically signed by: QUAN JACQUES MD on May 17 2024 3:18PM EST [id number] PROGRESS Observed: 05/13/2024 10:32 AM Status: COMPLETED Source: [facility] HNO ID: [id number] Author: FLO CHESTER RN Service: ? Author [...] yet. Patient appreciates your assistance, and is CAPITAN GRANDE on the phone. [facility] T[facility] Home Visit Referral Source of Stratification: [facility] Hospital Admission Status: Discharged Readmission Risk Score: 11 Patient's zip code: [address] Is zip code within program service area: [...] and in the home Patient discharged from [facility] Discharge date: 05/12/24 Admitted for: Pneumothorax Readmission Risk: 11 Value-Based Contract: Russ HARKINS Contact: Contact made with patient: Yes Hi, my name is Flo Chester RN and I am calling from the [facility] on behalf of your Primary Care Provider, [...] I will send your request to a rug sample beveler who will contact and assist you with [...] Observed: 05/13/2024 12:00 AM Status: COMPLETED Source: [facility] Patient Outreach ([facility]) STEVIE ANGELES ([id number]) 1950 M DEF Date Time Provider Department [...] yet. Patient appreciates your assistance, and is CAPITAN GRANDE on the phone. [facility] T[facility] Home Visit Referral Source of Stratification: [facility] Hospital Admission Status: Discharged Readmission Risk Score: 11 Patient's zip code: [address] Is zip code within program service area: Y Patient meets program referral criteria: No Patient does not qualify for High Risk TCM Home Visit program due to: Readmission Risk Score does not meet criteria Disposition: Patient does not qualify for [facility], will provide TCM outreach follow-up for 30-days [...] and in the home Patient discharged from [facility] Discharge date: 05/12/24 Admitted for: Pneumothorax Readmission Risk: 11 Value-Based Contract: Russ HARKINS Contact: Contact made with patient: Yes Hi, my name is Flo Chester RN and I am calling from the [facility] on behalf of your Primary Care Provider, [...] I will send your request to a rug sample beveler who will contact and assist you with [...] Observed: 05/12/2024 11:42 AM Status: COMPLETED Source: [facility] HNO ID: [id number] Author: PAULA ESCOBAR MD, PhD Service: Thoracic [...] and he was instructed to come to [facility] for direct admission for chest tube insertion. [...] Center 05/20/2024 3:00 PM Elias Goss MD [facility] 05/22/2024 2:40 PM Kevin Cantu MD [facility] 06/13/2024 3:00 PM Thad Beltran MD [facility] 06/18/2024 9:00 AM [facility] 06/18/2024 9:45 AM Malia Egan DO [facility] 10/24/2024 2:20 PM Praful Su MD [facility] 01/16/2025 2:30 PM Don Lara MD UROD [...] APRN.CNP Due to transparency practice at the [facility], those who have an active MyChart may notice test results and pathology results being immediately released once finalized. This can occur prior to your provider having the chance to review the results. At your follow up visit those results will be discussed in detail as well as any additional future plans. PROGRESS Observed: 05/12/2024 10:27 AM Status: COMPLETED Source: [facility] HNO ID: [id number] Author: JERRY GIRALDO APRN.CNP Service: Thoracic Surgery Author Type: Nurse Practitioner Type: Progress Notes Filed: 05/12/2024 10:27 Note Text: [facility] THORACIC SURGERY POST-OP PROGRESS NOTE Stevie Angeles [id number] SURGEON: Paula Escobar M.D. ADMIT DATE: 05/10/24 [...] RVR, LLL collapse 05/08/24: CT chest at [place] OPD 05/10/24: Admitted to Thoracic SDU for [...] TG 145. -Resume home medication. 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 ADRIANA -follow up w/ urology Discharge planning. Single lives in [place], [place]. Functionally independent at home. No skilled [...] medications reviewed in Epic SIGNATURE: Jerry Giraldo APRN.[facility] PAGER: [phone] DATE of SERVICE: May 12, 2024 TIME of SERVICE: 10:27 AM CBC PNL BLD AUTO Collected: 6:37 AM Status: F Source: [facility] Order Comment: Specimen Type : BLOOD SPECIMEN Ordering Facility: [facility] Address: [address] [place] [address] TYPE CODE TESTS RESULT OUT OF RANGE REFERENCE UNITS LAB 6690-2([facility]) WBC # Bld Auto 5.48 3.70-11.00 k/uL LAB 789-8([facility]) RBC # Bld Auto 4.27 4.20-6.00 m/uL LAB 718-7([facility]) Hgb Bld-mCnc 13.4 13.0-17.0 g/dL LAB 4544-3([facility]) Hct VFr Bld Auto 39.6 39.0-51.0 % LAB 787-2(INC) MCV RBC Auto 92.7 80.0-100.0 fL LAB 785-6(INC) MCH RBC Qn Auto 31.4 26.0-34.0 pg LAB 786-4(INC) MCHC RBC Auto-mCnc 33.8 30.5-36.0 g/dL LAB 38690-0(INC) RDW RBC-Rto 14.1 11.5-15.0 % LAB 777-3(INC) Platelet # Bld Auto 191 150-400 k/uL LAB 84051-2([facility]) PMV Bld Auto 8.8 Low 9.0-12.7 fL LAB 771-6(LOINC) nRBC # Bld Auto <0.01 <0.01 k/uL Performed By: #### 12633-8 # ### [facility] CLIA [id number] [address] [place] [address] [place] BAS METAB 2000 PNL SERPL Collected: 6:37 AM Status: F Source: [facility] Order Comment: Specimen Type : BLOOD SPECIMEN Ordering Facility: [facility] Address: [address] [place] [address] TYPE CODE TESTS RESULT OUT OF RANGE REFERENCE UNITS LAB 2345-7(LOINC) Glucose SerPl-mCnc 104 High 74-99 mg/dL Result Comment: The [place] Diabetes Association (ADA) provides guidance for cutoff [...] Standards of Medical Care in Diabetes 2016, [place] Diabetes Association. Diabetes Care. 2016.39(Suppl 1). LAB 3094-0(LOINC) BUN SerPl-mCnc 9 9-24 mg/ dL LAB 2160-0(LOINC) Creat SerPl-mCnc 0.59 Low 0.73-1.22 mg/dL LAB 2951-2(LOINC) Sodium SerPl-sCnc 139 136-144 mmol/L LAB 2823-3(LOINC) Potassium SerPl-sCnc 3.9 3.7-5.1 mmol/L LAB 2075-0(LOINC) Chloride SerPl-sCnc 105 98-107 mmol/L LAB 2028-9(LOINC) CO2 SerPl-sCnc 23 22-30 mmo l/L LAB 03125-4(LOINC) Anion Gap SerPl-sCnc 11 8-15 mmol/L LAB 89333-0(LOINC) Calcium SerPl-mCnc 9.3 8.5-10.2 mg/dL LAB 69184-5(LOINC) Creatinine + eGFR Pnl SerPlBld 104 >=60 [...] accurately reflect actual GFR. Performed By: #### 58383-4 # ### [facility] CLIA [id number] [address] [place] [address] [place] XR CHEST 1V FRONTAL PORT Observed: 05/12 5:58 AM Status: F Source: [facility] * * *Final Report* * * DATE [...] No pneumothorax. Cardiomediastinal silhouette: Stable cardiac silhouette. Field Technical Support Consultant: PSCB Transcribe Date/Time: May 12 2024 9:59A Dictated by : JURGEN ROY MD This examination was interpreted and the report reviewed and electronically signed by: JURGEN ROY MD on May 12 2024 10:00AM EST [id number] PROGRESS Observed: 05/11/2024 3:21 PM Status: COMPLETED Source: [facility] HNO ID: [id number] Author: JERRY GIRALDO APRN.DRYWALLER Service: Thoracic Surgery Author Type: Nurse Practitioner Type: Progress Notes Filed: 05/11/2024 15:55 Note Text: [facility] THORACIC [facility]GERY POST-OP PROGRESS NOTE Stevie Angeles [id number] SURGEON: Paula Escobar M.D. ADMIT DATE: 05/10/24 [...] RVR, LLL collapse 05/08/24: CT chest at [place] OPD 05/10/24: Admitted to Thoracic SDU for [...] TG 145. -Resume home medication. Prostate cancer [id number] adenocaarcinoma prostate s/p TRUS random biopsy 09/24/20, s/p Lupron 45 mg IM injection 11/05/20 then external beam radiation therapy completed 01/15/21 (70 Gy/28fx). ADRIANA -follow up w/ urology Discharge planning. Single lives in [place]. Functionally independent at home. No skilled [...] medications reviewed in Epic SIGNATURE: Jerry Giraldo APRN.[facility] PAGER: [phone] DATE of SERVICE: May 11, 2024 TIME of SERVICE: 3:52 PM BAS METAB 1999 PNL SERPL Collected: 9:23 AM Status: F Source: [facility] Order Comment: Specimen Type : BLOOD SPECIMEN Ordering Facility: [facility] Address: [address] [place] [address] [place] [address] TYPE CODE TESTS RESULT OUT OF RANGE REFERENCE UNITS LAB 2345-7(LOINC) Glucose SerPl-mCnc 111 High 74-99 mg/dL Result Comment: The [place] Diabetes Association (ADA) provides guidance for cutoff [...] Standards of Medical Care in Diabetes 2016, [place] Diabetes Association. Diabetes Care. 2016.39(Suppl 1). LAB 3094-0(LOINC) BUN SerPl-mCnc 10 9-24 mg/ dL LAB 2160-0(LOINC) Creat SerPl-mCnc 0.58 Low 0.73-1.22 mg/dL LAB 2951-2(LOINC) Sodium SerPl-sCnc 137 136-144 mmol/L LAB 2823-3(LOINC) Potassium SerPl-sCnc 3.7 3.7-5.1 mmol/L LAB 2075-0(LOINC) Chloride SerPl-sCnc 101 98-107 mmol/L LAB 8-9(LOINC) CO2 SerPl-sCnc 26 22-30 mmo l/L LAB 06865-4(LOINC) Anion Gap SerPl-sCnc 10 8-15 mmol/L LAB 98705-6(LOINC) Calcium SerPl-mCnc 9.4 8.5-10.2 mg/dL LAB 31810-3(LOINC) Creatinine + eGFR Pnl SerPlBld 104 >=60 [...] accurately reflect actual GFR. Performed By: #### 45971-4 # ### [facility] CLIA [id number] [address] [place] [address] STATES OF [facility] CBC PNL BLD AUTO Collected: 5 9:23 AM Status: F Source: [facility] Order Comment: Specimen Type : BLOOD SPECIMEN Ordering Facility: [facility] Address: [address] [place] [address] TYPE CODE TESTS RESULT OUT OF RANGE [...] MCHC RBC Auto-mCnc 34.0 30.5-36.0 g/dL LAB 59447-5(LOINC) RDW RBC-Rto 13.9 11.5-15.0 % LAB 777-3(LOINC) Platelet # Bld Auto 197 150-400 k/uL LAB 28519-9(LOINC) PMV Bld Auto 8.7 Low 9.0-12.7 fL LAB 771-6(LOINC) nRBC # Bld Auto <0.01 <0.01 k/uL Performed By: #### 29458-5 # ### [facility] CLIA [id number] [address] [place] [address] [place] XR CHEST 1V FRONTAL PORT Observed: 05/11 6:13 AM Status: F Source: [facility] * * *Final Report* * * DATE [...] cardiomediastinal silhouette. Other: . IMPRESSION: See result. Field Technical Support Consultant: IMMANUEL Transcribe Date/Time: May 11 2024 9:48A Dictated by : IVON PEREIRA MD This examination was interpreted and the report reviewed and electronically signed by: IVON PEREIRA MD on May 11 2024 9:49AM EST [id number] PROGRESS Observed: 05/11/2024 2:28 AM Status: COMPLETED Source: [facility] HNO ID: [id number] Author: NOTE, INTERFACE, ? Service: ? Author Type: ? Type: Progress Notes Filed: 05/11/2024 02:30 Note Text: Epic Scheduled Downtime: 05/11/2024 1:00:00 AM to 05/11/2024 2:11:00 AM XR CHEST 1V FRONTAL PORT Observed: 05/10 11:13 PM Status: F Source: [facility] * * *Final Report* * * DATE [...] the right chest wall. IMPRESSION: See result Field Technical Support Consultant: PSCB Transcribe Date/Time: May 11 2024 12:02A Dictated by : ALIYA BARRIENTOS MD This examination was interpreted and the report reviewed and electronically signed by: ALIYA BARRIENTOS MD on May 11 2024 12:03AM EST [id number] THERAPY NT Observed: 05/10/2024 10:51 PM Status: COMPLETED Source: [facility] HNO ID: [id number] Author: BAR TREVINO RRT Service: Respiratory Therapy [...] 10, 2024 TIME: 10:08 PM PAGER/CONTACT #: [phone] 05/10/248 RT Rapid Response Is this a Rapid Response? Yes Rapid Response Team CMET $ CPR/Code Blue No RT medication given No Patient intubated No Patient suctioned No Blood Gases Drawn No Vitals/Oxygenation Pulse 84 Resp 20 SpO2 97 % O2 Therapy NC Liters (Numeric Only) 2 $Oximetry $Performed Pulse Oximetry Monitoring Continuous NURSING PROG Observed: 05/10/2024 10:15 PM Status: COMPLETED Source: [facility] HNO ID: [id number] Author: ZAIRA ABBOTT, RN Service: ? Author Type: Registered Nurse Type: Nursing Progress Note Filed: 05/10/2024 22:26 Note Text: Event(s) / Intervention Note: PATIENT NAME: Stevie Angeles Patient Location: [place] [address] [facility] The patient complained of the following problems: [...] Observed: 05/10 4:05 PM Status: F Source: [facility] * * *Final Report* * * DATE [...] the right chest wall. IMPRESSION: See result Field Technical Support Consultant: IMMANUEL Transcribe Date/Time: May 10 2024 5:04P Dictated by : ALIYA BARRIENTOS MD This examination was interpreted and the report reviewed and electronically signed by: ALIYA BARRIENTOS MD on May 10 2024 5:08PM EST [id number] MGT INWADE MARROQUIN Observed: 05/10/2024 3:10 PM Status: COMPLETED Source: [facility] HNO ID: [id number] Author: DERIAN SANTANA RN Service: Care Management [...] Relation: Sister Admission Status: Inpatient Insurance Provider: [facility] MEDIC[facility] PPO Discharge Planning requested by: Per Department Practice Potential Transition Plans To Be Determined Advance Directives Current Advance Directive: Health Care Power of [employer] In Chart: Yes Up To Date and [...] Be able to go home, General wellness [place] of Choice Explained: [place] of Choice Given: No Reason Not Given: [...] Observed: 05/10/2024 2:56 PM Status: F Source: [facility] Ventricular Rate : 85 BPM Atrial Rate : 85 BPM P-R Interval : 104 ms QRS Duration : 90 ms Q-T Interval : 440 ms QTC Calculation(Bazett) : 523 ms Calculated R [place] : 50 degrees Calculated T [place] : 27 degrees SINUS RHYTHM WITH SHORT CO WITH PREMATURE ATRIAL COMPLEXES NONSPECIFIC ST ABNORMALITY PROLONGED QT INTERVAL OR TU FUSION, CONSIDER HYPOKALEMIA ABNORMAL ECG Confirmed by NI GUSMAN MD ([id number]) on 06/03/2024 1:00:13 AM NAME : STEVIE ANGELES PID : [id number] : 1950 Gender : Male Race : ORD : Procedure Date : May 10 2024 14:56:30 Edit Date : Jun 03 2024 01:00:16 Diagnosis: SINUS RHYTHM WITH SHORT CO WITH PREMATURE ATRIAL COMPLEXES NONSPECIFIC ST ABNORMALITY PROLONGED QT INTERVAL OR TU FUSION, CONSIDER HYPOKALEMIA ABNORMAL ECG Confirmed by NI GUSMAN MD ([id number]) on 06/03/2024 1:00:13 AM Test Reason : Location : [facility] : [id number] Overread By : NI GUSMAN MD Edited By : NI GUSMAN MD Referred By : , Acquired by : [id number], PT PNL PPP Collected: 05/10/2024 2:21 PM Status: F Source: [facility] Order Comment: Specimen Type : BLOOD SPECIMEN Ordering Facility: [facility] Address: [address] [place] [address] TYPE CODE TESTS RESULT OUT OF RANGE REFERENCE UNITS LAB 5902-2(LOINC) Prothrombin time 11.9 9.7-13.0 sec LAB 6301-6(LOINC) INR PPP 1.1 0.9-1.3 Result Comment: Vitamin K An tagonist (VKA) Therapeutic Range: INR 2 to 3 (Target INR of 2.5) Note: For patients treated with VKA drugs, such as warfarin, the [place] College [employer] 2012 Guideline recommends [...] Chest 2012, 141:7S-47S Vicki RA, et al. [facility] 2017, 70: 252-289 Performed By: #### 45814-9, 20855-2 #### [facility] CLIA [id number] [address] [place] [address] [place] APTT PPP Collected: 2:21 PM Status: F Source: [facility] Order Comment: Specimen Type : BLOOD SPECIMEN Ordering Facility: [facility] Address: [address] [place], [place] [address] TYPE CODE TESTS RESULT OUT OF RANGE REFERENCE UNITS LAB 72352-7(LOINC) aPTT PPP 28.7 23.0-32.4 sec Performed By: #### 91203-1, 71995-9 #### [facility] CLIA [id number] [address] [place], [place] [id number] [place] CBC PNL BLD AUTO Collected: 2:21 PM Status: F Source: [facility] Order Comment: Specimen Type : BLOOD SPECIMEN Ordering Facility: [facility] Address: [address] [place] [address] TYPE CODE TESTS RESULT OUT OF RANGE REFERENCE UNITS LAB 6690-2(LOINC) WBC # Bld Auto 7.62 3.70-11.00 k/uL LAB 789-8(LOINC) RBC # Bld Auto 4.62 4.20-6.00 m/uL LAB 718-7(INC) Hgb Bld-mCnc 14.6 13.0-17.0 g/dL LAB 4544-3(INC) Hct VFr Bld Auto 42.4 39.0-51.0 % LAB 787-2(INC) MCV RBC Auto 91.8 80.0-100.0 fL LAB 785-6(INC) MCH RBC Qn Auto 31.6 26.0-34.0 pg LAB 786-4([facility]) MCHC RBC Auto-mCnc 34.4 30.5-36.0 g/dL LAB 57452-1(INC) RDW RBC-Rto 13.9 11.5-15.0 % LAB 777-3(INC) Platelet # Bld Auto 229 150-400 k/uL LAB 09338-2(INC) PMV Bld Auto 8.7 Low 9.0-12.7 fL LAB 771-6([facility]) nRBC # Bld Auto <0.01 <0.01 k/uL Performed By: #### 97554-7 # ### [facility] CLIA [id number] [address] [place] [id number] [place] [address] OF [facility] COMP METAB 2000 PNL SERPL Collected: 2:21 PM Status: F Source: [facility] Order Comment: Specimen Type : BLOOD SPECIMEN Ordering Facility: [facility] Address: [address] [place] [address] TYPE CODE TESTS RESULT OUT OF RANGE REFERENCE UNITS LAB 2885-2(LOINC) Prot SerPl-mCnc 7.1 6.3-8.0 g/dL LAB 1751-7(LOINC) Albumin SerPl-mCnc 4.3 3.9-4.9 g/dL LAB 70752-0(LOINC) Calcium SerPl-mCnc 10.0 8.5-10.2 mg/dL LAB 1975-2(LOINC) Bilirub SerPl-mCnc 0.6 0.2-1.3 mg/dL LAB 6768-6(LOINC) ALP SerPl-cCnc 72 38-113 U/L LAB 1920-8(LOINC) AST SerPl-cCnc 20 14-40 U/L LAB 1742-6(LOINC) ALT SerPl-cCnc 23 10-54 U/L LAB 2345-7(LOINC) Glucose SerPl-mCnc 109 High 74-99 mg/dL Result Comment: The [place] Diabetes Association (ADA) provides guidance for cutoff [...] Standards of Medical Care in Diabetes 2016, [place] [employer] Association. Diabetes Care. 2016.39(Suppl 1). LAB 3094-0(LOINC) BUN SerPl-mCnc 7 Low 9-24 mg/ dL LAB 2160-0(LOINC) Creat SerPl-mCnc 0.59 Low 0.73-1.22 mg/dL LAB 2951-2(LOINC) Sodium SerPl-sCnc 137 136-144 mmol/L LAB 2823-3(LOINC) Potassium SerPl-sCnc 3.5 Low 3.7-5.1 mmol/L LAB 2075-0(LOINC) Chloride SerPl-sCnc 98 98-107 mmol/L LAB 2028-9(LOINC) CO2 SerPl-sCnc 24 22-30 mmo l/L LAB 23252-8(LOINC) Anion Gap SerPl-sCnc 15 8-15 mmol/L LAB 45601-0([facility]) Creatinine + eGFR Pnl SerPlBld 104 >=60 [...] accurately reflect actual GFR. Performed By: #### 91790-7 # ### [facility] CLIA [id number] [address] [place] [address] [place] HISTORY PHYSICAL Observed: 05/10/2024 2:00 PM Status: COMPLETED Source: [facility] HNO ID: [id number] Author: FAY CHILDRESS APRN.DRYWALLER Service: Thoracic Surgery Author Type: Nurse Practitioner Type: H&P Filed: 05/10/2024 14:00 Note Text: .[facility] NURSING PROG Observed: 05/10/2024 1:03 PM Status: COMPLETED Source: [facility] HNO ID: [id number] Author: CINDY RUIZ RN Service: Nursing Author Type: Registered Nurse Type: Nursing Progress Note Filed: 05/10/2024 13:03 Note Text: Transfer Note: PATIENT NAME: Stevie Angeles Patient Location: [address] Room: [place] [address] Patient transferred into room/unit [facility] in stable condition. Actions taken: No futher actions taken at this time. Will continue to monitor and check with patient. GABI Sadler PROGRESS Observed: 05/09/2024 12:55 PM Status: COMPLETED Source: [facility] HNO ID: [id number] Author: ROMINA BEDOLLA APRN.DRYWALLER Service: ? Author Type: Nurse Practitioner Type: Progress Notes Filed: 05/09/2024 17:39 Note Text: Heart, Vascular AND Thoracic [place] Department of Thoracic Surgery VIRTUAL VIDEO VISIT [...] visit. Either the patient or their legal b2b outside sales representative has been informed of the risks and benefits of -- and alternatives to -- treatment through a remote evaluation and consents to proceed with the evaluation remotely. PAST MEDICAL HISTORY Diagnosis Date Abdominal aortic aneurysm (HCC) without rupture Elevated PSA Hearing loss HTN (hypertension) Lumbosacral neuritis Malignant neoplasm of prostate (HCC) Other and unspecified hyperlipidemia Prostate cancer (HCC) 2020 xrt at [facility] [place] Smoker former quit 2021 Spinal stenosis of [...] and care of this patient. Romina Bedolla APRN.[facility] 2024 Part of this note was copied from previous note, all content has been individually reviewed, updated as necessary, and thoroughly reviewed. [facility] - OUTPATIENT THORACIC SURGERY CLINIC NOTE PT NAME: Stevie Angeles [facility] NO: [id number] THORACIC SURGEON: Paula Escobar M.D. DATE OF [...] the inked margin) were reviewed at the [facility] thoracic pathology consensus conference on 11/23/23. Dr. [...] to come in to be admitted to [facility] for placement of a right chest pigtail catheter. Sister Elisabeth called and notified per patient's instructions. Admission team notified as well. Fay Childress DNP notified of plan. Romina Bedolla APRN.DRYWALLER CT CHEST W IVCON Observed: 05/08/2024 2:21 PM Status: F Source: [facility] * * *Final Report* * * DATE OF EXAM: May 08 2024 2:21PM [facility] 0539 - CT CHEST W IVCON / [...] right upper lobe spiculated nodule with cavitations. Field Technical Support Consultant: IMMANUEL Transcribe Date/Time: May 11 2024 3:35P Dictated by : IVON DALTON MD This examination was interpreted and the report reviewed and electronically signed by: IVON DALTON MD on May 11 2024 3:46PM EST [id number] NURSING PROG Observed: 05/08/2024 1:30 PM Status: COMPLETED Source: [facility] HNO ID: [id number] Author: IRISH AMOR RN Service: PICC Team [...] Observed: 05/08/2024 1:30 PM Status: COMPLETED Source: [facility] HNO ID: [id number] Author: DEN TORRES TECHNOLOGIST Service: Radiology Author [...] PATIENT PRESENTS WITH AN IMPLANTABLE OR ATTACHED TRAIN STATION AGENT: No RADIOLOGY DEPARTMENT: CT; Exam(s) Completed: Chest PERIPHERAL IV DATA: Site assessment: Clean,Dry and Intact, Site disposition Discontinued SIGNED BY: TECHNOLOGIST Bettye May 08, 2024 2:12 PM PROGRESS Observed: 05/08/2024 1:23 PM Status: COMPLETED Source: [facility] HNO ID: [id number] Author: NEHEMIAS DENG RRT Service: ? Author Type: Registered Resp Therapist Type: Progress Notes Filed: 05/08/2024 13:24 Note Text: PULM FUNCTION: Provider: Romina Bedolla APRN.DRYWALLER Assisting Tech: Nehemias Deng RRT Spirometry w/BD: 1 DLCO: 1 BAS METAB 2000 PNL SERPL Collected: 12/2024 12:48 PM Status: F Source: [facility] Order Comment: Specimen Type : BLOOD SPECIMEN Ordering Facility: [facility] Address: [address] [place] [address] TYPE CODE TESTS RESULT OUT OF RANGE REFERENCE UNITS LAB 2345-7(LOINC) Glucose SerPl-mCnc 124 High 74-99 mg/dL Result Comment: The [place] Diabetes Association (ADA) provides guidance for cutoff [...] Standards of Medical Care in Diabetes 2016, [place] Diabetes Association. Diabetes Care. 2016.39(Suppl 1). LAB 3094-0(LOINC) BUN SerPl-mCnc 9 9-24 mg/ dL LAB 2160-0(LOINC) Creat SerPl-mCnc 0.73 0.73-1.22 mg/dL LAB 2951-2(LOINC) Sodium SerPl-sCnc 135 Low 136-144 mmol/L LAB 2823-3(LOINC) Potassium SerPl-sCnc 3.9 3.7-5.1 mmol/L LAB 2075-0(LOINC) Chloride SerPl-sCnc 94 Low 98-107 mmol/L LAB 2028-9(LOINC) CO2 SerPl-sCnc 29 22-30 mmo l/L LAB 38881-4(LOINC) Anion Gap SerPl-sCnc 12 8-15 mmol/L LAB 65460-0(LOINC) Calcium SerPl-mCnc 10.2 8.5-10.2 mg/dL LAB 57746-3(LOINC) Creatinine + eGFR Pnl SerPlBld 97 >=60 [...] accurately reflect actual GFR. Performed By: #### 44106-7, 02227-0 #### [facility] CLIA [id number] [address] [place] [address] [place] LIPID 1996 PNL SERPL Collected: 025 12:48 PM Status: F Source: [facility] Order Comment: Specimen Type : BLOOD SPECIMEN Ordering Facility: [facility] Address: [address] [place] [address] TYPE CODE TESTS RESULT OUT OF RANGE [...] risk factor for coronary heart disease LAB 97797-3(LOINC) NonHDLc SerPl-mCnc 93 <130 mg/dL Result Comment: <130 mg/dL, Optimal 130-159 mg/dL, Near optimal/above optimal 160-189 mg/dL, Borderline high 190-219 mg/dL, High >219 mg/dL, Very high Secondary prevention optimal non HDL Cholesterol levels are recommended to be <100 mg/dL LAB FT FASTING TIME 15 hrs LAB 50439-8(LOINC) VLDLc SerPl Calc-mCnc 26 <30 mg/dL LAB 9830-1(LOINC) Cholest/HDLc SerPl 2.52 <5.10 LAB 2089-1(LOINC) LDLc SerPl-mCnc 67 <100 mg/dL Result Comment: <100 mg/dL, Optimal 100-129 mg/dL, Near optimal/above optimal 130-159 mg/dL, Borderline high 160-189 mg/dL, High >189 mg/dL, Very high Secondary prevention optimal LDL Cholesterol levels are recommended to be < 70 mg/dL LAB 65043-1(LOINC) LDLc/HDLc SerPl 1.10 <2.54 Result Comment: Reference: 1. National Cholesterol Education Program ATP III Guideline At-A-Glance Quick Desk Reference: National Heart, Lung, and Blood [place]. National Institutes of Health. 2001: NIH Publication No. 01-3305. 2. An International Atherosclerosis Society position paper: global recommendations for the management of dyslipidemia: executive summary, Atherosclerosis. 2014: 232(2):410-413. Performed By: #### 92637-7, 08907-6 #### [facility] CLIA [id number] [address] [place] [address] [facility] HEMOCCULT STL QL IA Collected: 05/01/2024 8:[address] atus: F Source: [facility] Order Comment: Specimen Type : STOOL SPECIMEN Ordering Facility: [facility] Address: [address] [place] [address] TYPE CODE TESTS RESULT OUT OF RANGE REFERENCE UNITS LAB 02311-0([facility]) Hemoccult Stl Ql IA Negative Negative Performed By: #### 93211-6 # ### [facility] CLIA [id number] [address] [place] [address] PROGRESS Observed: 04/25/2024 2:36 PM Status: COMPLETED Source: [facility] HNO ID: [id number] Author: PRAFUL SU MD Service: ? Author [...] Observed: 04/25/2024 2:20 PM Status: COMPLETED Source: [facility] Office Visit ([facility]) STEVIE ANGELES ([id number]) 1950 M DEF Date Time Provider Department 04/25/24 2:20 PM PRAFUL SU [facility] During your visit today, we recorded the [...] 3 BASIC METABOLIC PANEL [SQBMP] Order #: [id number] FUTURE LIPID PANEL BASIC [SQLIPB] Order #: [id number] FUTURE IMMUNOCHEMICAL FECAL OCCULT BLOOD TEST [SQIFOBT] Order #: [id number]. #:[id number] Prescriptions as of 04/25/2024 - gabapentin (NEURONTIN) [...] for Encounter Date Provider Department Center 04/25/2024 [id number], NEI*[facility] Encounter Status:Closed by PRAFUL SU on 04/25/24 OFELIA Observed: 03/05/2024 12:00 AM Status: COMPLETED Source: [facility] Telephone (TYRONE) STEVIE ANGELES ([id number]) 1950 M DEF Date Time Provider Department 03/05/24 ELIAS GOSS During your visit today, we recorded the following information about you: Marlen Lam 03/05/2024 12:03 PM Signed LVM for return call to schedule; Please schedule telephone visit (follow-up) for the week of 05/20/[address] Ana Paula Giraldo [facility] 03/05/2024 12:13 PM Signed Patient received message [...] Observed: 02/29/2024 11:39 AM Status: COMPLETED Source: [facility] HNO ID: [id number] Author: CRISTOPHER VILLAR MA Service: ? Author Type: Telephone Directory Distributor Driver Type: Progress Notes Filed: 02/29/2024 11:45 Note [...] Observed: 02/29/2024 11:30 AM Status: COMPLETED Source: [facility] HNO ID: [id number] Author: ELIAS GOSS MD Service: ? Author Type: Physician Type: Progress Notes Filed: 02/29/2024 12:23 Note Text: I have communicated my name and active licensure. The patient's identity and physical location were verified at the time of this visit. Either the patient or their legal b2b outside sales representative has been informed of the risks and benefits of -- and alternatives to -- treatment through a remote evaluation and consents to proceed with the evaluation remotely. Radiation Oncology - Follow Up Note PATIENT NAME: Stevie Angeles PATIENT DIAGNOSIS: 73 year old man with: Enlarging/hypermetabolic/cavitary RUL nodule c/w NSCLC, fR4rJ0A7, Stage IA3, s/p SBRT 02/01/24 [3400 cGy/1 [...] with: 1. Enlarging/hypermetabolic/cavitary RUL nodule c/w NSCLC, jG5iP2W6, Stage IA3, s/p SBRT 02/01/24 [3400 cGy/1 [...] Observed: 02/29/2024 12:00 AM Status: COMPLETED Source: [facility] Patient Outreach (NETNAV) STEVIE ANGELES ([id number]) 1950 M DEF Date Time Provider Department [...] Observed: 02/29/2024 12:00 AM Status: COMPLETED Source: [facility] Telephone (RADRST) STEVIE ANGELES ([id number]) 1950 M DEF Date Time Provider Department [...] Observed: 02/05/2024 8:37 AM Status: COMPLETED Source: [facility] HNO ID: [id number] Author: TAE MONTEIRO MA Service: ? Author Type: Telephone Directory Distributor Driver Type: Progress Notes Filed: 02/05/2024 08:42 Note [...] Praful Su MD (Family Medicine); As needed [facility] 01/31/24 Dx: Foreign Body of Right ear 2nd Attempt: Left message for patient to call back. Reason for Outreach Community Monitoring/Network Navigator Pools AND Phone Line: AC Patient Contacted: Unable or unnecessary to reach patient: Left message Navigation Signature: Tae Monteiro MA February 05, 2024 8:37 AM PROGRESS Observed: 02/05/2024 12:00 AM Status: COMPLETED Source: [facility] HNO ID: [id number] Author: ELIAS GOSS MD Service: Radiation Oncology Author Type: Physician Type: Progress Notes Filed: 02/08/2024 11:22 Note Text: STEVIE ANGELES [id number] 02/05/2024 [facility] Department of Radiation Oncology [facility] RADIATION ONCOLOGY: COMPLETION NOTE DATE OF SIMULATION: 01/16/2024 DATES OF TREATMENT: 02/01/2024 TREATMENT MACHINE: S_TRUEBEAM TREATMENT AREA: RUL nodule SBRT DIAGNOSIS: 73 year old man with: 1.Enlarging/hypermetabolic/cavitary RUL nodule c/w NSCLC, yL3oG1N7, Stage IA3 2.Hx of SCCa of the [...] Observed: 02/02/2024 9:41 AM Status: COMPLETED Source: [facility] HNO ID: [id number] Author: TAE MONTEIRO MA Service: ? Author Type: Telephone Directory Distributor Driver Type: Progress Notes Filed: 02/02/2024 09:45 Note Text: POPULATION HEALTH NAVIGATION OUTREACH Action/FYI Patient is on CM (Community Monitoring) List : Patient due for: [facility] - ED Follow up A follow-up appointment is not noted in patient's record. We are forwarding this patient to Network Navigation to schedule a follow-up appointment. ED After Visit Summary (XL Font) (Printed 01/31/2024) Follow-Ups: Call Praful Su MD (Family Medicine); As needed [facility] 01/31/24 Dx: Foreign Body of Right ear 1st Attempt: Left message for patient to call back. [facility] Reason for Outreach Community Monitoring/Network Navigator Pools AND Phone Line: [facility] Patient Contacted: Unable or unnecessary to reach patient: Left message MyChart message sent Navigation Signature: Tae Monteiro MA February 02, 2024 9:41 AM PROGRESS Observed: 02/02/2024 9:36 AM Status: COMPLETED Source: [facility] HNO ID: [id number] Author: KIMBERLY BAKER RN Service: ? Author Type: Registered Nurse [...] Navigation: PCP alignment/verification. Router to COMMUNITY MONITORING [facility] [[id number]] Contact made with patient: No, Chart review only. Signature: Kimberly Baker RN CNPTOUTREACH Observed: 02/02/2024 12:00 AM Status: COMPLETED Source: [facility] Patient Outreach (AMBCMG) STEVIE ANGELES ([id number]) 1950 M DEF Date Time Provider Department [...] alignment/verification. Router to COMMUNITY MONITORING [facility] POOL [[id number]] Contact made with patient: No, Chart review only. Signature: GABI Malone Danielle A, MA 02/02/2024 9:45 AM Signed POPULATION HEALTH NAVIGATION OUTREACH Action/FYI Patient is on CM (Community Monitoring) List : Patient due for: [facility] - ED Follow up A follow-up appointment is not noted in patient's record. We are forwarding this patient to Network Navigation to schedule a follow-up appointment. ED After Visit Summary (XL Font) (Printed 01/31/2024) Follow-Ups: Call Praful Su MD (Family Medicine); As needed [facility] 01/31/24 Dx: Foreign Body of Right ear 1st Attempt: Left message for patient to call back. [facility] Reason for Outreach Community Monitoring/Network Navigator Pools AND Phone Line: [facility] Patient Contacted: Unable or unnecessary to reach patient: Left message MyChart message sent Navigation Signature: Tae Monteiro MA February 02, 2024 9:41 AM Tae Monteiro MA 02/05/2024 8:42 AM Signed POPULATION HEALTH NAVIGATION OUTREACH Action/FYI Patient is on CM (Community Monitoring) List : Patient due for: [facility] - ED Follow up A follow-up appointment is not noted in patient's record. We are forwarding this patient to Network Navigation to schedule a follow-up appointment. ED After Visit Summary (XL Font) (Printed 01/31/2024) Follow-Ups: Call Praful Su MD (Family Medicine); As needed [facility] 01/31/24 Dx: Foreign Body of Right ear 2nd Attempt: Left message for patient to call back. Reason for Outreach Community Monitoring/Network Navigator Pools AND Phone Line: [facility] Patient Contacted: Unable or unnecessary to [...] Observed: 2023 12:36 PM Status: F Source: [facility] * * *Final Report* * * DATE [...] Findings discussed with Dr. Goss at 1543 Field Technical Support Consultant: IMMANUEL Transcribe Date/Time: Feb 02 2024 3:36P Dictated by : BEVERLEY CAMACHO MD This examination was interpreted and the report reviewed and electronically signed by: BEVERLEY CAMACHO MD on Feb 02 2024 3:45PM EST [id number] PROGRESS Observed: 02/01/2024 12:31 PM Status: COMPLETED Source: [facility] HNO ID: [id number] Author: MELITA ALLISON LISW Service: ? Author Type: Hooker Inspector Type: Progress Notes Filed: 02/01/2024 12:39 Note Text: SOCIAL WORK FOLLOW UP NOTE: CANCER CENTER Date of service: January [facility] Hooker Inspector (SW) Melita Allison met with Stevie Angeles [...] information on [facility], and the [address] [place] [address] Program. Advance Care Planning Goals of Care Date of Discussion: 02/01/2024 DIscussion Participants: Stevie Angeles Clinical: Stevie has completed advanced directives, and his sister is listed as the agent. Patient/Family/Decision Makers: Elisabeth Menjivar (BANNER) [phone] (M) In this encounter: Patient has completed [...] Observed: 02/01/2024 12:00 PM Status: COMPLETED Source: [facility] Office Visit (RADRST) STEVIE ANGELES ([id number]) 1950 M [facility] Date Time Provider Department 02/01/24 12:00 PM ELIAS GOSS During your visit today, we recorded the following information about you: Weight 78.9 kg Elias Goss MD 02/01/2024 12:22 PM Signed Radiation Oncology - On Treatment Review (OTR) Note PATIENT NAME: Stevie Angeles PATIENT DIAGNOSIS: 73 year old man with: Enlarging/hypermetabolic/cavitary RUL nodule c/w NSCLC, bY3yX0E6, Stage IA3 Hx of SCCa of the [...] Diagnosis:Postprocedural pneumothorax [J95.811] Order(s):XR CHEST 2V FRONTAL/LAT [2268403] Order #: [id number] FUTURE Prescriptions as of 02/01/2024 - lisinopril-hydroCHLOROthiazide [...] of Service: UNLISTED EVALUATION AND MANAGEMENT SERVICE [[id number]] Encounter Status:Closed by ELIAS GOSS on 02/01/24 PROGRESS Observed: 02/01/2024 12:00 PM Status: COMPLETED Source: [facility] HNO ID: [id number] Author: ELIAS GOSS MD Service: ? Author Type: Physician Type: Progress Notes Filed: 02/01/2024 12:22 Note Text: Radiation Oncology - On Treatment Review (OTR) Note PATIENT NAME: Stevie Angeles PATIENT DIAGNOSIS: 73 year old man with: Enlarging/hypermetabolic/cavitary RUL nodule c/w NSCLC, iA7kA0V8, Stage IA3 Hx of SCCa of the [...] Observed: 01/31/2024 11:12 AM Status: COMPLETED Source: [facility] HNO ID: [id number] Author: MERARI SEARS DO Service: Emergency Medicine [...] this time. 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 Denies any other complaints or concerns at this time. Notes he has had some mild irritation to his right ear since before of the foreign body. PAST MEDICAL HISTORY Diagnosis Date Abdominal aortic aneurysm (HCC) without rupture Elevated PSA Hearing loss HTN (hypertension) Lumbosacral neuritis Malignant neoplasm of prostate (HCC) Other and unspecified hyperlipidemia Prostate cancer (HCC) 2020 xrt at [facility] [place] Smoker former quit 2021 Spinal stenosis of [...] Sears DO - MERARI SEARS 01/31/24 [facility] Observed: 01/19/2024 12:00 AM Status: COMPLETED Source: [facility] Telephone (RADRST) STEVIE ANGELES ([id number]) 1950 M DEF Date Time Provider Department [...] Observed: 01/16/2024 12:00 AM Status: COMPLETED Source: [facility] HNO ID: [id number] Author: ELIAS GOSS MD Service: Radiation Oncology Author Type: Physician Type: Progress Notes Filed: 01/16/2024 15:04 Note Text: STEVIE ANGELES [id number] 01/16/2024 [facility] Department of Radiation Oncology [facility] RADIATION ONCOLOGY SIMULATION NOTE DATE OF SIMULATION: 01/16/2024 MACHINE: [employer] CT DIAGNOSIS: Malignant neoplasm of prostate AREA: [...] Observed: 01/16/2024 12:00 AM Status: COMPLETED Source: [facility] HNO ID: [id number] Author: ELIAS GOSS MD Service: Radiation Oncology Author Type: Physician Type: Progress Notes Filed: 01/29/2024 11:02 Note Text: STEVIE ANGELES [id number] 01/16/2024 [facility] Department of Radiation Oncology Treatment Planning Note [...] Observed: 01/11/2024 1:00 PM Status: COMPLETED Source: [facility] HNO ID: [id number] Author: ELIAS GOSS MD Service: ? Author Type: Physician Type: Progress Notes Filed: 01/11/2024 13:45 Note Text: Radiation Oncology - New Patient/Consult Note PATIENT NAME: Stevie Angeles PATIENT REQUESTING PROVIDER: Kevin Cantu MD DIAGNOSIS: 73 year old man with: Enlarging/hypermetabolic/cavitary RUL nodule c/w NSCLC, dX3nQ5N1, Stage IA3 Hx of SCCa of the [...] hyperlipidemia Prostate cancer (HCC) 2020 xrt at [facility] [place] Smoker former quit 2021 Spinal stenosis of [...] wine per week Drug use: No Residence: [place], [place] Occupation: [employer] COMPLETE REVIEW OF SYSTEMS: GENERAL: Negative for [...] with: 1. Enlarging/hypermetabolic/cavitary RUL nodule c/w NSCLC, bL4hD3U2, Stage IA3 2. Hx of SCCa of [...] with more than 50% of the total icjy-dp-hiwc time of the visit in counseling / coordination of care. Signed by: Elias Goss MD cc: MD Kevin Nicholas MD Daniel Raymond, MD CNOV Observed: 01/11/2024 1:00 PM Status: COMPLETED Source: [facility] [place] Office Visit (RADRST) STEVIE ANGELES ([id number]) 1950 M DEF Date Time Provider Department 01/11/24 1:00 PM ELIAS GOSS During your visit today, we recorded the following information about you: Weight 80.4 kg Elias Goss MD 01/11/2024 1:45 PM Signed Radiation Oncology - New Patient/Consult Note PATIENT NAME: Stevie Angeles PATIENT REQUESTING PROVIDER: Kevin Cantu MD DIAGNOSIS: 73 year old man with: Enlarging/hypermetabolic/cavitary RUL nodule c/w NSCLC, lH2sG4X5, Stage IA3 Hx of SCCa of the [...] hyperlipidemia Prostate cancer (HCC) 2020 xrt at [facility] [place] Smoker former quit 2021 Spinal stenosis of [...] wine per week Drug use: No Residence: [place], [place] Occupation: [employer] COMPLETE REVIEW OF SYSTEMS: GENERAL: Negative for [...] with: 1. Enlarging/hypermetabolic/cavitary RUL nodule c/w NSCLC, jF2pN6Q7, Stage IA3 2. Hx of SCCa of [...] with more than 50% of the total opvv-rc-hjqe time of the visit in counseling / coordination of care. Signed by: Elias Goss MD cc: MD Kevin Nicholas MD Daniel Raymond, MD Leciejewski, Carrie, RN 01/11/2024 1:22 PM Signed Radiation Therapy - Nursing Note (Consult) PATIENT NAME: Stevie Angeles PATIENT January 11, 2024 [facility] FACILITY/LOCATION: [place] Chief Complaint: lung nodule Reason for visit: Consult. Referring physician: Internal provider Dr. Cantu Subjective Data: I do have soreness where the incision is since my lung surgery . I will get SOB with over exertion and cough noted at times Additional Data Do you want to see a Supervising Appraiser? 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 Referring physician: Internal provider Dr. Cantu Subjective Data: I do have soreness where the incision is since my lung surgery . I will get SOB with over exertion and cough noted at times Additional Data Do you want to see a Supervising Appraiser? No Are you interested in information about [...] yes 2020 for prostate cancer completed at [facility] PREVIOUS HORMONAL THERAPY: no NURSING ASSESSMENT: EYES: [...] A person with a Durable Power of [employer] for Healthcare (DPOA-H) has been appointed - [...] Observed: 01/08/2024 2:23 PM Status: COMPLETED Source: [facility] HNO ID: [id number] Author: ROMINA BEDOLLA APRN.ELVIRA Service: ? Author Type: Nurse Practitioner Type: Progress Notes Filed: 01/08/2024 18:37 Note Text: Part of this note was copied from previous note, all content has been individually reviewed, updated as necessary, and thoroughly reviewed. [facility] OUTPAT[facility] THORACIC SURGERY CLINIC NOTE PT NAME: [facility] NO: [id number] THORACIC SURGEON: Paula Escobar M.D. DATE OF [...] the inked margin) were reviewed at the [facility] thoracic pathology consensus conference on 11/23/23. Dr. [...] consult with Dr Goss 01/11/24 Romina Bedolla APRN.DRYWALLER CNOV Observed: 01/08/2024 2:00 PM Status: COMPLETED Source: [facility] Office Visit (THORMN) STEVIE ANGELES ([id number]) 1950 M DEF Date Time Provider Department [...] reviewed, updated as necessary, and thoroughly reviewed. [facility] OUTPATIENT THORACIC SURGERY CLINIC NOTE PT NAME: Stevie Angeles [facility] NO: [id number] THORACIC SURGEON: Paula Escobar M.D. DATE OF [...] the inked margin) were reviewed at the [facility] thoracic pathology consensus conference on 11/23/23. Dr. 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.31] Other Visit Diagnoses:Lung nodule [R91.1] Chronic obstructive pulmonary disease, unspecified COPD type (HCC) [J44.9] Order(s):LUNG DIFFUSION CAPACITY (DLCO) [2376316] Order #: [id number]: 1 FUTURE SPIROMETRY WITH DILATOR IF OBSTRUCTED [4724491] Order #: [id number]: 1 FUTURE Prescriptions as of 01/08/2024 - [...] for Encounter Date Provider Department Center 01/08/2024 [id number]-UORFIROMINA BEDOLLAMN [facility] Encounter Status:Closed by ROMINA BEDOLLA on 01/08/24 XR CHEST 2V FRONTAL/LAT Observed: 2023 1:30 PM Status: F Source: [facility] * * *Final Report* * * DATE [...] within the thoracic spine. IMPRESSION: See result Field Technical Support Consultant: IMMANUEL Transcribe Date/Time: Jan 08 2024 2:44P Dictated by : CORAZON PUENTES DO This examination was interpreted and the report reviewed and electronically signed by: ALIYA BARRIENTOS MD on Jan 08 2024 3:45PM EST [id number] PROGRESS Observed: 01/08/2024 1:30 PM Status: COMPLETED Source: [facility] HNO ID: [id number] Author: ERMA JIN RT(R) Service: Radiology Author [...] PATIENT PRESENTS WITH AN IMPLANTABLE OR ATTACHED TRAIN STATION AGENT: No RADIOLOGY DEPARTMENT: General X-ray: Exam(s) Completed: Chest X-Ray PERIPHERAL IV DATA: Not applicable SIGNED BY: RT Roseanna(R) January 08, 2024 1:34 PM OFELIA Observed: 01/05/2024 12:00 AM Status: COMPLETED Source: [facility] Telephone (AKURFL) STEVIE ANGELES ([id number]) 1950 M DEF Date Time Provider Department 01/05/24 DON LARA During your visit today, we recorded the following information about you: Kirk Matamoros MA 01/05/2024 2:26 PM Signed ----- Message from Don Lara MD sent at 01/05/2024 2:15 PM EST ----- The lab results all look good. No change in plan. Kikr Matamoros MA 01/05/2024 2:26 PM Signed Called [...] SERPL-MCNC Collected: 3:34 PM Status: F Source: [facility] Order Comment: Specimen Type : BLOOD SPECIMEN Ordering Facility: [facility] Address: [address] [place] [address] TYPE CODE TESTS RESULT OUT OF RANGE REFERENCE UNITS LAB 2857-1(LOINC) PSA SerPl-mCnc 0.08 <2.60 ng/mL Result Comment: Total PSA te st methodology used is the Electrochemiluminescence Immunoassay by [employer]. Total PSA values by differing methodologies cannot be interchanged. Performed By: #### 2857-1 ## ## [facility] CLIA [id number] [address] [place] [address] [place] Observed: 01/04/2024 3:04 PM Status: COMPLETED Source: [facility] HNO ID: [id number] Author: DON LARA MD Service: ? Author [...] Observed: 01/04/2024 3:00 PM Status: COMPLETED Source: [facility] Office Visit (UROLMD) STEVIE ANGELES ([id number]) 1950 M DEF Date Time Provider Department [...] Allergies) Date Reviewed: 01/04/2024 Reviewed by: Nisa Lwo LPN - Fully Assessed Reason for Visit: Follow Up [171] Prostate Cancer [590] Primary Visit Diagnosis:Prostate cancer (HCC) [C61] Order(s):UA DIP, URINE (POC) [4986984] Order #: [id number]. #:[id number] PROSTATE-SPECIFIC ANTIGEN DIAGNOSTIC [SQPSA] Order #: [id number] FUTURE PROSTATE-SPECIFIC ANTIGEN DIAGNOSTIC [SQPSA] Order #: [id number] FUTURE Prescriptions as of 01/04/2024 - lisinopril-hydroCHLOROthiazide [...] for Encounter Date Provider Department Center 01/04/2024 [id number] LARA [facility] Encounter Status:Closed by DON LARA on 01/04/24 CNPN Observed: 12/28/2023 12:00 AM Status: COMPLETED Source: [facility] Telephone (RADRST) STEVIE ANGELES ([id number]) 1950 M DEF Date Time Provider Department [...] Observed: 12/19/2023 11:01 AM Status: COMPLETED Source: [facility] HNO ID: [id number] Author: MALIA EGAN, DO Service: ? Author Type: Physician Type: Progress Notes Filed: 01/02/2024 11:23 Note Text: Heart , Vascular and Thoracic [place] DEPARTMENT OF VASCULAR SURGERY OUTPATIENT VISIT DATE [...] with more than 50% of the total wfxi-hp-flmm time of the visit in counseling / coordination of care. Malia Egan DO CNOV Observed: 12/19/2023 11:00 AM Status: COMPLETED Source: [facility] Office Visit (VASSMD) STEVIE ANGELES ([id number]) 1950 M DEF Date Time Provider Department 12/19/23 11:00 AM MALIA EGAN During your visit today, we recorded the following information about you: Pulse Blood pressure 98/minute 140/70 Malia Egan DO 01/02/2024 11:23 AM [facility] Heart , Vascular and Thoracic [place] DEPARTMENT OF VASCULAR SURGERY OUTPATIENT VISIT DATE [...] with more than 50% of the total vfgh-su-nune time of the visit in counseling / coordination of care. Malia Egan DO Referring Provider: TEA ECKERT [[id number]] Allergies As of Date: 12/19/2023 (No Known Allergies) Date Reviewed: 12/19/2023 Reviewed by: Radha Farris RN - Fully Assessed Reason for Visit: Follow Up [171] Cmt: AAA Primary Visit Diagnosis:Infrarenal abdominal aortic aneurysm (AAA) without rupture (HCC) [I71.43] Order(s):US ABD AORTA COMPLETE VAS LAB [[id number]] Order #: [id number] FUTURE Prescriptions as of 01/02/2024 - lisinopril-hydroCHLOROthiazide [...] for Encounter Date Provider Department Center 12/19/2023 [id number] EGAN [facility] Encounter Status:Closed by MALIA EGAN on 01/02/24 US ABD AORTA COMPLETE VAS LAB Observed: 12/19/2023 9:32 AM Status: F Source: [facility] Abdominal Aorta Bilateral/Complete Date [...] hemodynamically significant stenosis . Technologist: Nafisa Bower [facility] Ordering physician: CHIP LOWERY Interpreting physician: MICHAEL Ford MD Final CC [employer] [facility] Image : [id number] See Link below for Image PROGRESS Observed: 12/19/2023 9:02 AM Status: COMPLETED Source: [facility] ID: [id number] Author: KEVIN CANTU MD Service: ? Author [...] Observed: 12/19/2023 8:50 AM Status: COMPLETED Source: [facility] Visit (SP) Office (HEMMED) STEVIE ANGELES ([id number]) 1950 M DEF Date Time Provider Department [...] prostate adenocarcinoma, initial PSA 7.52 ng/mL, biopsy [place] score 3 + 4 = 7 (grade [...] lung (HCC) [C34.90] Order(s):CT CHEST W IVCON [[id number]] Order #: [id number] FUTURE iv contrast (will be provided with [...] EachRfl: 0 RAD/ONC CONSULT [9037] Order #: [id number]: 1 FUTURE Disposition: Return in about 4 months (around 04/20/2024). Follow-up and Disposition History for Encounter Date Provider Department Center 12/19/2023 [id number] CANTUn[employer] C Prescriptions as of 12/19/2023 - iv [...] Observed: 12/19/2023 12:00 AM Status: COMPLETED Source: [facility] Telephone (RADRST) STEVIE ANGELES ([id number]) 1950 M DEF Date Time Provider Department [...] Observed: 12/19/2023 12:00 AM Status: COMPLETED Source: [facility] Telephone ([employer] Technology[employer]ST) STEVIE ANGELES ([id number]) 1950 M DEF Date Time Provider Department [...] Observed: 12/09/2023 9:13 AM Status: F Source: [facility] * * *Final Report* * * DATE OF EXAM: Dec 09 2023 9:13AM [facility] 0541 - CT CHEST WO IVCON / [...] pleural effusion. 3. No new thoracic lymphadenopathy Field Technical Support Consultant: PSCB Transcribe Date/Time: Dec 14 2023 1:29P Dictated by : ANNE COUGHLIN MD This examination was interpreted and the report reviewed and electronically signed by: ANNE COUGHLIN MD on Dec 14 2023 1:47PM EST [id number] PROGRESS Observed: 12/09/2023 9:00 AM Status: COMPLETED Source: [facility] HNO ID: [id number] Author: CINDY DICKENS Tech Service: Radiology Author Type: Oil Treater Type: Progress Notes Filed: 12/09/2023 09:03 Note [...] PATIENT PRESENTS WITH AN IMPLANTABLE OR ATTACHED TRAIN STATION AGENT: No RADIOLOGY DEPARTMENT: CT; Exam(s) Completed: Chest PERIPHERAL IV DATA: Not applicable SIGNED BY: Iza Baez December 09, 2023 9:03 AM CNOVSP Observed: 11/29/2023 2:20 PM Status: COMPLETED Source: [facility] Visit (SP) Office (HEMMED) STEVIE ANGELES ([id number]) 1950 M DEF Date Time Provider Department [...] prostate adenocarcinoma, initial PSA 7.52 ng/mL, biopsy [place] score 3 + 4 = 7 (grade [...] Kevin Cantu MD Referring Provider: THAD BELTRAN [[id number]] Allergies As of Date: 11/29/2023 (No Known Allergies) Date Reviewed: 11/29/2023 Reviewed by: Melita Cerrato MA - Fully Assessed Reason for Visit: Follow Up [171] Lung Cancer [562] Primary Visit Diagnosis:Squamous cell carcinoma of lung, unspecified laterality (HCC) [C34.90] [facility] [[id number]] Order #: [id number] FUTURE Disposition: Return in about 20 days (around 12/19/2023). Follow-up and Disposition History for Encounter Date Provider Department Center 11/29/2023 [id number], JAMES G*[employer] [facility] Prescriptions as of 11/30/2023 [...] Observed: 11/29/2023 2:11 PM Status: COMPLETED Source: [facility] HNO ID: [id number] Author: KEVIN CANTU MD Service: ? Author [...] prostate adenocarcinoma, initial PSA 7.52 ng/mL, biopsy [place] score 3 + 4 = 7 (grade [...] Observed: 11/27/2023 11:00 AM Status: COMPLETED Source: [facility] Office Visit (IKE) STEVIE ANGELES ([id number]) 1950 M DEF Date Time Provider Department 11/27/23 11:00 AM ROMINA BEDOLLA During your visit today, we recorded the following information about you: Temperature Pulse Respiration Blood pressure 98.3 degrees 61/minute 14/minute 121/61 Weight Height 80.1 kg 1.702 m Romina Bedolla APRN.DRYWALLER 11/27/2023 3:01 PM Signed [facility] - OUTPATIENT THORACIC SURGERY CLINIC NOTE PT NAME: Stevie Angeles [facility] NO: [id number] THORACIC SURGEON: Paula Escobar M.D. DATE OF [...] the inked margin) were reviewed at the [facility] thoracic pathology consensus conference on 11/23/23. Dr. [...] 4 weeks after surgery. Do not perform cast iron dipper such as laundry and vacuuming. Do not [...] a motor vehicle. Referring Provider: FAY CHILDRESS [[id number]] Allergies As of Date: 11/27/2023 (No Known Allergies) Date Reviewed: 11/27/2023 Reviewed by: Geni James MA - Fully Assessed Reason for Visit: Post-Op Visit [1236] Primary Visit Diagnosis:Malignant neoplasm of lower lobe of right lung (HCC) [C34.31] Other Visit Diagnosis:Lung nodule [R91.1] Order(s):XR CHEST 2V FRONTAL/LAT [[id number]] Order #: [id number] FUTURE Prescriptions as of 11/27/2023 - lisinopril-hydroCHLOROthiazide [...] 4 weeks after surgery. Do not perform cast iron dipper such as laundry and vacuuming. Do not [...] for Encounter Date Provider Department Center 11/27/2023 [id number], CAROL THORMN [facility] Encounter Status:Closed by ROMINA BEDOLLA on 11/27/23 PROGRESS Observed: 11/27/2023 10:33 AM Status: COMPLETED Source: [facility] HNO ID: [id number] Author: ROMINA BEDOLLA APRN.DRYWALLER Service: ? Author Type: Nurse Practitioner Type: Progress Notes Filed: 11/27/2023 15:01 Note Text: [facility] - OUTPATIENT THORACIC SURGERY CLINIC NOTE PT NAME: Stevie [place] [facility] NO: [id number] THORACIC SURGEON: Paula Escobar M.D. DATE OF [...] the inked margin) were reviewed at the [facility] thoracic pathology consensus conference on 11/23/23. Dr. [...] Cantu, will arrange follow up Romina Bedolla APRN.DRYWALLER PROGRESS Observed: 11/27/2023 10:30 AM Status: COMPLETED Source: [facility] HNO ID: [id number] Author: JENNIFER MERCADO RT(Harry) Service: Radiology Author [...] PATIENT PRESENTS WITH AN IMPLANTABLE OR ATTACHED TRAIN STATION AGENT: No RADIOLOGY DEPARTMENT: General X-ray: Exam(s) Completed: Chest X-Ray PERIPHERAL IV DATA: Not applicable SIGNED BY: RT Alexandra(Harry) November 27, 2023 10:22 AM XR CHEST 2V FRONTAL/LAT Observed: 2023 10:15 AM Status: F Source: [facility] * * *Final Report* * * DATE [...] in the thoracic spine. IMPRESSION: See result Field Technical Support Consultant: IMMANUEL Transcribe Date/Time: Nov 27 2023 2:01P Dictated by : ALIYA BARRIENTOS MD This examination was interpreted and the report reviewed and electronically signed by: ALIYA BARRIENTOS MD on Nov 27 2023 2:14PM EST [id number] ALLERGIES DATE TYPE / CODE NAME / CODE REACTION SEVERITY SOURCE Drug Class/[id number](SNO MED CT) NO KNOWN ALLERGIES [facility] ENCOUNTERS ADMIT/DISCHARGE ACCOUNT NUMBER ADMITTING ENCOUNTER CLASS LOCATION SOURCE 11/22/2024/11/23/19 [id number] [facility] 11/21/2024 [id number] [facility]11/20/19 [id number] [facility] 11/19/2024/11/20/19 [id number] [facility] 10/29/2024/10/30/19 [id number] SIDDHARTH CARTER Ambulatory [facility] HospitalBuild ing:I860Fage: [id number]: [id number] [facility] 10/24/2024/11/06/19 25 [id number] LORAINE MUÑOZ [facility] 10/24/2024/10/25/19 [id number] Ambulatory [facility] ing:FAVC [facility] 09/11/2024/09/12/19 [id number] Ambulatory [facility] ing[facility]BAR[facility]E [facility] 08/23/2024/08/24/19 [id number] Ambulatory [facility] ing:RAST [facility] 08/20/2024/08/21/19 [id number] Ambulatory [facility]Build ing:THOR [facility] 08/19/2024/08/20/19 [id number] [facility]RGMDR [facility] 07/08/2024/07/09/19 [id number] Ambulatory [facility] ing[facility]THOR [facility] 2024 [id number] [facility]ulatory [facility]XRJ1 [facility] 07/01/2024 [id number] [facility]XRJ1 [facility] 07/01/2024/07/02/19 [id number] Ambulatory [facility] ing:THOR [facility] 07/01/2024 [id number] [facility]ulatory [facility] ing:XRJ1 [facility] 06/19/2024/06/24/19 [id number] DL, SUDISH Inpatient Encounter [facility] HospitalBuild ing:F830Rfjj: [id number]: [id number] [facility] 06/18/2024/06/19/19 [id number] [facility] ing:MDVUmberto [facility] 06/18/2024/06/19/19 [id number] Ambulatory [facility] ing:YA [facility] 06/13/2024/06/14/19 [id number] [facility]ulatory [facility] HospitalBuild ing:MDPU [facility] 06/07/2024/06/08/19 [id number] Ambulatory [facility] HospitalBuild ing:CART [facility] 06/07/2024/06/08/19 25 [id number] Ambulatory [facility] HospitalBuild ing:THOR [facility] 06/07/2024/06/08/19 25 [id number] [facility]ulatory [facility]Build ing:XRJ1 [facility] 06/07/2024/06/08/19 25 [id number] Ambulatory [facility] HospitalBuild ing:LB16 [facility] 05/20/2024/05/21/19 25 [id number] Ambulatory [facility] HospitalBuild ing:RAST [facility] 05/17/2024/05/18/19 25 [id number] Ambulatory [facility] HospitalBuild ing:THOR [facility] 05/17/2024/05/18/19 25 [id number] Ambulatory [facility]Build ing:XRJ1 [facility] 05/10/2024/05/13/19 25 [id number] DL, PAULA Inpatient Encounter [facility] HospitalBuild ing:B285Aoci: [id number]: [id number] [facility] 05/09/2024/05/10/19 [id number] Ambulatory [facility] ing:[facility] 05/08/2024 [id number] [facility] [place] [facility] 05/08/2024/05/09/19 25 [id number] Ambulatory [facility] HospitalBuild ing:MDMB [facility] 05/08/2024/05/09/19 25 [id number] Ambulatory [facility] HospitalBuild ing:MDMB [facility] 05/07/2024/05/08/19 25 [id number] [facility] [place] [facility] 04/25/2024/04/25/19 25 [id number] [facility]ulatory [facility] 02/29/2024/02/28/19 25 [id number] [facility]ulatory [facility]:RASK[facility]ushi [facility] 02/01/2024/02/01/20 24 [id number] Ambulatory [facility] HospitalBuild ing:STRG [facility] 02/01/2024/02/01/20 24 [id number] Ambulatory [facility] HospitalBuild ing:RAST [facility] 02/01/2024/02/01/20 24 [id number] Ambulatory [facility] HospitalBuild ing:STTR [facility] 01/31/2024/01/31/20 24 [id number] [facility]MEEDRoom: EDBed: [address] [place] [address] 01/16/2024/01/16/20 24 [id number] Ambulatory [facility] ing[facility] 01/11/2024/01/11/20 24 [id number] [facility] 01/08/2024/01/08/20 24 [id number] Ambulatory [facility] HospitalBuild ing:THOR [facility] 01/08/2024/01/08/20 24 [id number] [facility]ulatory [facility]Build ing:XRJ1 [facility] 01/04/2024/01/04/20 24 [id number] [facility] 01/04/2024/01/04/20 24 [id number] Ambulatory [facility] ing:URMD [facility] 12/19/2023/12/19/19 24 [id number] Ambulatory [facility] HospitalBuild ing:YA [facility] 12/19/2023/12/19/19 24 [id number] Ambulatory [facility] HospitalBuild ing:JT [facility] 12/19/2023/12/19/19 24 [id number] Ambulatory [facility]Build ing:BARBIE [facility] 12/09/2023 [id number] [facility] [place] [facility] 11/29/2023/11/29/19 24 [id number] Ambulatory [facility]Build ing:BARBIE [facility] 11/27/2023/11/27/19 24 [id number] Ambulatory [facility] HospitalBuild ing:THOR [facility] 11/27/2023/11/27/19 [id number] [facility] PAYERS ENCOUNTER GUARANTOR PAYER SUBSCRIBER SOURCE 11/22/2024 Primary Insurance:[employer] MEDICARE PPOPolicy Number: [id number] Date:7724-45-97Edml Name:Margie ROJASHerbert: [id number] [address] [place], [place] [address] [place] [address] 11/21/2024 Primary Insurance:[employer] MEDICARE PPOPolicy Number: [id number] Date:5581-38-18Fqih Name:Margie ROJASHerbert: [id number] Dar[address] JIANG [place], [address] 11/19/2024 Primary Insurance:[employer] MEDICARE PPOPolicy Number: [id number] Date:8028-21-20Kevi Name:Margie YE ADEELGILLESRUTH: [id number] [address] [place], [address] 11/19/2024 Primary Insurance:[employer] MEDICARE PPOPolicy Number: [id number] Date:4861-63-99Pxym Name:Margie ROJASHerbert: [id number] [address] [place] [place], [place] [address] [place] [address] 10/29/2024 Primary Insurance:[employer] MEDICARE PPOPolicy Number: [id number] Date:1911-18-60Uxif Name:Margie ROJASHerbert: [id number] [address] MEJ[address] [place], [address] 10/24/2024 Primary Insurance:[employer] MEDICARE PPOPolicy Number: [id number] Date:9649-72-71Hhoy Name:Margie ROJASHerbert: [id number] Dar[address] JIANG [place], [address] 10/24/2024 Primary Insurance:[employer] MEDICARE PPOPolicy Number: [id number] Date:9840-53-05Djli Name:Margie SINGH: [id number] [address] [place], [place] [address] [place] [address] 09/11/2024 Primary Insurance:[employer] MEDICARE PPOPolicy Number: [id number] Date:7763-27-49Pvao Name:Margie SINGH: [id number] [address] [place], [place] [address] [place] [address] 08/23/2024 Primary Insurance:[employer] MEDICARE PPOPolicy Number: [id number] Date:6368-36-58Whbb Name:Margie ROJASHerbert: [id number] [address] [place], [place] [address] [place] [address] 08/20/2024 Primary Insurance:[employer] MEDICARE PPOPolicy Number: [id number] Date:2049-96-42Psli Name:Margie ANGELESRUTH: [id number] [address] [place], [place] [address] [place] [address] 08/19/2024 Primary Insurance:[employer] MEDICARE PPOPolicy Number: [id number] Date:3740-49-48Ykie Name:Margie ROJASHerbert: [id number] [address] [place], [place] [address] [place] [address] 2024 Primary Insurance:[employer] MEDICARE PPOPolicy Number: [id number] Date:3135-30-87Juzx Name:Margie ROJASHerbert: [id number] [address] [place], [place] [address] [place] [address] 2024 Primary Insurance:[employer] MEDICARE PPOPolicy Number: [id number] Date:8856-63-78Dqmf Name:Margie ROJASHerbert: [id number] [address] [place], [place] [address] [place] [address] 07/01/2024 Primary Insurance:[employer] MEDICARE PPOPolicy Number: [id number] Date:7178-12-53Covc Name:Margie ANGELESRUTH: [id number] [place] [address] [facility] 07/01/2024 Primary Insurance:[employer] MEDICARE PPOPolicy Number: [id number] Date:2910-47-62Pvaa Name:Margie SINGH: [id number] [address] [place], [place] [address] [place] [address] 07/01/2024 Primary Insurance:[employer] MEDICARE PPOPolicy Number: [id number] Date:6197-93-76Cdjw Name:Margie ROJASHerbert: [id number] [address] [place], [place] [address] [place] [address] 06/19/2024 Primary Insurance:[employer] MEDICARE PPOPolicy Number: [id number] Date:9966-66-60Scvb Name:Margie ANGELESRUTH: [id number] [address] [place], [place] [address] [place] [address] 06/18/2024 Primary Insurance:[employer] MEDICARE PPOPolicy Number: [id number] Date:4205-50-39Woxr Name:Margie ANGELESRUTH: [id number] [address] [place], [place] [address] [place] [address] 06/18/2024 Primary Insurance:[employer] MEDICARE PPOPolicy Number: [id number] Date:4480-98-38Rvje Name:Margie ROJASHerbert: [id number] [address] [place], [place] [address] [place] [address] 06/13/2024 Primary Insurance:[employer] MEDICARE PPOPolicy Number: [id number] Date:3392-81-54Wyqj Name:Margie ANGELESRUTH: [id number] [address] [place], [place] [address] [place] [address] 06/07/2024 Primary Insurance:[employer] MEDICARE PPOPolicy Number: [id number] Date:9716-62-95Yzwz Name:Margie ANGELESRUTH: [id number] [address] [place], [place] [address] [place] [address] 06/07/2024 Primary Insurance:[employer] MEDICARE PPOPolicy Number: [id number] Date:6075-36-12Ehhw Name:Margie DENISLAMONT: [id number] 06/07/2024 Primary Insurance:[employer] MEDICARE PPOPolicy Number: [id number] Date:6881-33-05Jymt Name:Margie YE FRANCISCO: [id number] [facility], [address] 06/07/2024 Primary Insurance:[employer] MEDICARE PPOPolicy Number: [id number] Date:5006-24-19Reqd Name:Margie YE FRANCISCO: [id number] [address] 05/20/2024 Primary Insurance:[employer] MEDICARE PPOPolicy Number: [id number] Date:3257-85-05Fntw Name:Margie YE FRANCISCO: [id number] [address] 05/17/2024 Primary Insurance:[employer] MEDICARE PPOPolicy Number: [id number] Date:2776-22-06Rsro Name:Margie YE FRANCISCO: [id number] [address] 05/17/2024 Primary Insurance:[employer] MEDICARE PPOPolicy Number: [id number] Date:8458-16-16Jdzu Name:Margie YE FRANCISCO: [id number] [address] 05/10/2024 Primary Insurance:[employer] MEDICARE PPOPolicy Number: [id number] Date:3056-37-72Doic Name:Margie YE FRANCISCO: [id number] [address] 05/09/2024 Primary Insurance:[employer] MEDICARE PPOPolicy Number: [id number] Date:7654-51-95Wlvy Name:Margie ROJASHerbert: [id number] [address] [place], [place] [address] [place] [address] 05/08/2024 Primary Insurance:[employer] MEDICARE PPOPolicy Number: [id number] Date:4101-72-67Oplp Name:Margie SINGH: [id number] [address] [place], [address] 05/08/2024 Primary Insurance:[employer] MEDICARE PPOPolicy Number: [id number] Date:3802-62-14Mpau Name:Margie ROJASHerbert: [id number] ECKERT [facility], [address] 05/08/2024 Primary Insurance:[employer] MEDICARE PPOPolicy Number: [id number] Date:3980-73-10Cdos Name:Margie ROJASeHrbert: [id number] ECKERT [facility], [address] 05/07/2024 Primary Insurance:[employer] MEDICARE PPOPolicy Number: [id number] Date:0564-64-79Pdlp Name:Margie ROJASHerbert: [id number] ECKERT [facility], [address] 04/25/2024 Primary Insurance:[employer] MEDICARE PPOPolicy Number: [id number] Date:9505-20-81Snyv Name:Margie ROJASHerbert: [id number] ECKERT [facility], [address] 02/29/2024 Primary Insurance:[employer] MEDICARE PPOPolicy Number: [id number] Date:5203-99-60Ljvh Name:Margie ROJASHerbert: [id number] ECKERT [facility], [address] 02/01/2024 Primary Insurance:[employer] MEDICARE PPOPolicy Number: [id number] Date:7006-18-94Rvft Name:Margie ROJASHerbert: [id number] ECKERT [facility], [address] 02/01/2024 Primary Insurance:[employer] MEDICARE PPOPolicy Number: [id number] Date:9531-61-27Xjxj Name:Margie YE FRANCISCO: [id number] [address] [facility], [place] [address] [place] [address] 02/01/2024 Primary Insurance:[employer] MEDICARE PPOPolicy Number: [id number] Date:6749-72-59Aplb Name:Margie YE FRANCISCO: [id number] ECKERT [facility], [address] 01/31/2024 Primary Insurance:[employer] MEDICARE PPOPolicy Number: [id number] Date:3740-02-66Xabd Name:Margie YE FRANCISCO: [id number] [facility] 01/16/2024 Primary Insurance:[employer] MEDICARE PPOPolicy Number: [id number] Date:5539-53-73Rnok Name:Margie YE FRANCISCO: [id number] [address] 01/11/2024 Primary Insurance:[employer] MEDICARE PPOPolicy Number: [id number] Date:8702-15-14Gsmk Name:Margie YE FRANCISCO: [id number] ECKERT [facility], [address] 01/08/2024 Primary Insurance:[employer] MEDICARE PPOPolicy Number: [id number] Date:9598-64-44Laqn Name:Margie YE FRANCISCO: [id number] ECKERT [facility], [address] 01/08/2024 Primary Insurance:[employer] MEDICARE PPOPolicy Number: [id number] Date:2289-42-69Zymz Name:Margie YE FRANCISCO: [id number] ECKERT [address] 01/04/2024 Primary Insurance:[employer] MEDICARE PPOPolicy Number: [id number] Date:3054-27-13Nmlp Name:N STEVIE ANGELESRUTH: [id number] [address] [place], [address] 01/04/2024 Primary Insurance:[employer] MEDICARE PPOPolicy Number: [id number] Date:3082-30-77Qqly Name:Margie SINGH: [id number] [address] 12/19/2023 Primary Insurance:[employer] MEDICARE PPOPolicy Number: [id number] Date:4322-75-22Xqfw Name:Margie ROJASHerbert: [id number] ECKERT [facility], [address] 12/19/2023 Primary Insurance:[employer] MEDICARE PPOPolicy Number: [id number] Date:1527-12-71Ngkb Name:Margie YE ADEELGILLESRUTH: [id number] ECKERT [facility], [address] 12/19/2023 Primary Insurance:[employer] MEDICARE PPOPolicy Number: [id number] Date:0874-67-08Avyh Name:Margie ROJASHerbert: [id number] ECKETR [facility], [address] 12/09/2023 Primary Insurance:[employer] MEDICARE PPOPolicy Number: [id number] Date:4219-85-08Ftxf Name:Margie ANGELESRUTH: [id number] ECKERT [facility], [address] 11/29/2023 Primary Insurance:[employer]ARE PPOPolicy Number: [id number] Date:1583-47-47Rxet Name:Margie ANGELESRUTH: [id number] ECKERT [facility], [address] 11/27/2023 Primary Insurance:[employer]ARE PPOPolicy Number: [id number] Date:7293-64-42Dcej Name:Margie ANGELESRUTH: [id number] ECKERT [address] 11/27/2023 Primary Insurance:[employer]ICARE PPOPolicy Number: [id number] Date:8710-79-53Merk Name:Margie SINGH: [id number] [place] [address] [facility]
[2024-11-25 08:34] LABS: Hematocrit 34.5 % (40-54); Hemoglobin 11.0 g/dL (13.0-16.5); Immature Granulocytes Count 0.030 X10^3/uL (0.0-0.0); Mean Corp Hgb Conc 31.9 g/dL (32-36); Mean Corpuscular Volume 91.0 fL (80-94); Mean Platelet Vol. 9.6 fl (6.2-12.0); NRBC Flagged by Analyzer 0 % (0-5); Platelet Count 319 K/mm3 (150-450); RBC Distribution Width CV 14.3 % (11.6-14.6); RBC Distribution Width SD 48.0 fl (35.1-43.9); Red Blood Count 3.79 M/mm3 (4.6-6.2); White Blood Count 7.4 K/mm3 (4.4-11.0)
[2024-11-25 08:57] LABS: AST(SGOT) 14 U/L (<=37); Alanine Aminotransfer ALT/SGPT 9 U/L (<=46); Albumin, Serum 3.3 g/dL (3.4-4.8); Alkaline Phosphatase 79 U/L (40-129); Bilirubin, Direct 0.13 mg/dL (0.00-0.30); Globulin 3.1 g/dL (2.2-4.2)
== END ==
LOC: OLS.SANC 04:00
PROVIDERS: Referring Provider Internal Medicine; Visit Provider Internal Medicine
DX: I10 Essential (primary) hypertension (principal); E78.5 Hyperlipidemia, unspecified
CPT/HCPCS: 36415; 80076; 82565; 85025

== ENCOUNTER → 2024-12-02 05:00 | Outpatient (REF) | payer MEDICARE, SELFPAY ==
--- OUTSIDE RECORDS SUMMARY | 2024-12-02 04:23 | XMS RPT_ITS | CCD ---
Author Organization [facility] Care Team Providers Care Security Auditor Name Role Phone Georges HENRY, Praful Fair Primary Care Provider Marco HENRY, Don Jeff Unavailable [phone] Georges HENRY, Praful Fair Primary Care Provider Marco HENRY, Don Jeff Unavailable Kevin Patterson MD Unavailable ARCADIO HODGSON Admitting Unavailable ARCADIO HODGSON Attending Unavailable PRAFUL SU F Primary Care Unavailabl e ARCADIO HODGSON Admitting Unavailable ARCADIO HODGSON Attending Unavailable HOMERO SUIL F Primary Care Unavailabl e Urban RN, Cecile Unavailable Urban ASHLEY, Cecile Unavailable Jay Arce PA-C Unavailable Maria Dolores ASHLEY, Darcie Unavailable Maria Dolores RN, Darcie Unavailable Maria Dolores RN, Darcie Unavailable [phone] PROVIDER, UNKNOWN Referring Unavailable GRAHOMERO CROWDERIL F Primary Care Unavailabl e GRABENSTETTER, PRAFUL F Primary Care Unavailabl e PATRICIA SLOAN Attending Unavailable LORAINE GROVER Admitting Unavailable KEVIN PATTERSON Consulting Unavailab MERARI Rushing Attending Unavailable HOMERO SUIL F Primary Care Unavailabl e GRABENSTESTUART, PRAFUL F Primary Care Unavailabl e PROVIDER, UNKNOWN Referring Unavailable PRAFUL SU F Primary Care Unavailabl e KEVIN PATTERSON Referring Unavailab DON Esqueda Referring Unavailable GRADIGNAER, PRAFUL F Primary Care Unavailabl e GRABENSTETTER, PRAFUL F Referring Unavailabl e GRABENSTETTER, PRAFUL F Primary Care Unavailabl e KEVIN PATTERSON Referring Unavailab le GRABENSTETTER, PRAFUL F Primary Care Unavailabl e Maik Bridgse Attending Unavailable Missy VALENCIA, Maik Attending Unavailable Maik Bridges Referring Unavailable Katsaros ANNIE, Maik Attending Unavailable GRABENSTETTER, PRAFUL F Primary Care Unavailabl e KEVIN PATTERSON Attending Unavailab le GRABENSTETTER, PRAFUL F Primary Care Unavailabl e ROMINA KAHN Attending Unavailable GRABENSTETTER, PRAFUL F Primary Care Unavailabl e MALIA EGAN Attending Unavailable TEA JACKSON Referring Unavail able GRABENSTETTER, PRAFUL F Primary Care Unavailabl e JERRY POMPA Referring Unavailable ROMINA KAHN Attending Unavailable THAD GARRETT Attending Unavailable GRABENSTETTER, PRAFUL F Primary Care [...] SUDISH Attending Unavailable DL, SUDISH Admitting Unavailable ELIAS GOSS Referring Unavailable ELIAS GOSS Attending Unavailable GRABENSTETTER, PRAFUL F Primary Care Unavailabl e ELIAS GOSS Attending Unavailable GRABENSTETTER, PRAFUL F Primary Care Unavailabl e KEVIN PATTERSON Referring Unavailab le GRABENSTETTER, PRAFUL F Primary Care Unavailabl e ROMINA KAHN Attending Unavailable GRABENSTETTER, PRAFUL F Primary Care Unavailabl e ROMINA KAHN Referring Unavailable GRABENSTETTER, PRAFUL F Primary Care Unavailabl e RAUL, SIDDHARTH Admitting Unavailable RAUL SIDDHARTH Attending Unavailable THAD GARRETT Referring Unavailable GRABENSTETTER, PRAFUL F Primary Care Unavailabl e KEVIN PATTERSON Attending Unavailab le VASSIL, ELIAS Attending Unavailable ELIAS GOSS Referring Unavailable GRABENSTETTER, PRAFUL F Primary Care Unavailabl e GRABENSTETTER, PRAFUL F Primary Care Unavailabl e JAZLYN, YARITZAR Referring Unavailable GRABENSTETTER, PRAFUL F Primary Care Unavailabl e DUALE, PASTORA Referring Unavailable GABI BRICE Attending Unavailable GRABENSTETTER, PRAFUL F Primary Care Unavailabl e DUALE, PASTORA Referring Unavailable GRABENSTETTER, PRAFUL F Primary Care Unavailabl e DON LARA Attending Unavailable ELIAS GOSS Attending Unavailable GRABENSTETTER, PRAFUL F Primary Care Unavailabl e GRABENSTETTER, PRAFUL F Primary Care Unavailabl e ROMINA KAHN Attending Unavailable GRABENSTETTER, PRAFUL F Primary Care Unavailabl e ROMINA KAHN Attending Unavailable GRABENSTETTER, PRAFUL F Primary Care Unavailabl e ROMINA KAHN Referring Unavailable GRABENSTETTER, PRAFUL F Primary Care Unavailabl e GRABENSTETTER, PRAFUL F Primary Care Unavailabl e MALIA EGAN Referring Unavailable GRABENSTETTER, PRAFUL F Primary Care Unavailabl e MALIA EGAN Attending Unavailable MALIA EGAN Referring Unavailable ELIAS HILLS Attending Unavailable GRABENSTETTER, PRAFUL F Primary Care Unavailabl e GRABENSTETTER, PRAFUL F Attending Unavailabl e GRABENSTETTER, PRAFUL F Primary Care Unavailabl e GRABENSTETTER, PRAFUL F Primary Care Unavailabl e DL, SUDISH Referring Unavailable GRABENSTETTER, PRAFUL F Primary Care Unavailabl e JERRY POMPA Referring Unavailable ROMINA KAHN Referring Unavailable GRABENSTETTER, PRAFUL F Primary Care Unavailabl e GRABENSTETTER, PRAFUL F Attending Unavailabl e GRABENSTETTER, PRAFUL F Primary Care Unavailabl e GRABENSTEXER, PRAFUL F Primary Care Unavailabl e ROMINA KAHN Referring Unavailable GRABENSTETTER, PRAFUL F Primary Care Unavailabl e GRABENSTETTER, PRAFUL F Primary Care Unavailabl e ROMINA KAHN Attending Unavailable ELIAS GOSS Attending Unavailable JUSTUSER, PRAFUL F Primary Care Unavailabl e SELF Referring Unavailable ELIAS GOSS Referring Unavailable GRABENSTETTER, PRAFUL F Primary Care Unavailabl e ELIAS GOSS Attending Unavailable PRAFUL SU Primary Care UnavailELIAS Avelar Referring Unavailable ELIAS GOSS Attending Unavailable PRAFUL SU Primary Care Unavailadam e Medications Current Medications Medication Drug Class(es) Dates Sig (Normalized) Sig (Original) amoxicillin 875 mg / clavulanate 125 mg oral tablet (3 sources) Penicillin-class Antibacterial Start: 09-22-2023 End: 10-06-2023 take 1 tablet by mouth twice daily amoxicillin-clav ulanate potassium (AUGMENTIN) 875-125 mg per tablet Take 1 tablet by mouth two times a day for 14 days. 28 tablet 0 09/22/2023 10/06/2023 Active Start: 06-23-2023 End: 07-03-2023 take 1 tablet by mouth twice daily amoxicillin-clavulanate potassium (AUGMENTIN) 875-125 mg per tablet Take 1 tablet by mouth two times a day for 10 days. 20 tablet 0 06/23/2023 07/03/2023 Active bicalutamide 50 mg oral tablet (3 sources) Androgen Receptor Inhibitor Start: 10-27-2020 End: 08-11-2021 take 1 tablet by mouth once daily bicalutamide (CASODEX) 50 mg tablet Indications: Malignant neoplasm of prostate (HCC) Take 1 tablet by mouth once daily. 30 tablet 1 10/27/2020 08/11/2021 Discontinued Comment on above: Take 1 tablet by [facility] once daily. docusate sodium 50 mg / sennosides, mcc 8.6 mg oral tablet (10 sources) Start: 07-01-2024 End: 10-24-2024 take 1 tablet by mouth twice daily senna-docusate (SENNA WITH DOCUSATE SODIUM) 8.6-50 mg per tablet Indications: Constipation due to opioid therapy Take 1 tablet by mouth two times a day. 60 tablet 07/01/2024 10/24/2024 Active Start: 11-19-2023 End: 11-26-2023 take 1 tablet by mouth twice daily for constipation senna-docusate (SENNA-S) 8.6-50 mg per tablet Take 1 tablet by mouth two times a day for 7 days. For prevention of opioid induced constipation after thoracic surgery 14 tablet 11/19/2023 11/26/2023 Active iv contrast (will be provide d with radiology test) (20 sources) Start: 08-20-2024 End: 08-21-2024 iv contrast (will be provide d with radiology test) CT Chest W -Inject, [...] protocol in theCT contrast administration guidelines link. 1 each 08/20/2024 08/21/2024 Active Start: 12-19-2023 End: 12-20-2023 iv contrast (will be provide d with radiology test) CT Chest W -Inject, [...] in the CT contrast administration guidelines link. 1 Each 12/19/2023 12/20/2023 Active Start: 10-03-2023 End: 10-26-2023 inject 1 dose intravenously once iv contrast (will be provided with radiology test) Indications: Squamous cell carcinoma of lung, unspecified laterality (HCC) , Malignant neoplasm of lung, unspecified laterality, unspecified part of lung (HCC) MRI Brain Inject, intravenously, once for 1 [...] in the MR contrast administration guidelines link 1 Each 10/03/2023 10/26/2023 Discontinued Start: 10-03-2023 inject 1 dose intravenously on ce iv contrast (will be provided with radiology test) Indications: Squamous cell carcinoma of lung, unspecified laterality (HCC) , Malignant neoplasm of lung, unspecified laterality, unspecified part of lung (HCC) MRI Brain Inject, intravenously, once for 1 [...] in the MR contrast administration guidelines link 1 Each 10/03/2023 Active Start: 10-03-2023 inject 1 dose intravenously on ce iv contrast (will be provided with radiology test) Indications: Squamous cell carcinoma of lung, unspecified laterality (HCC) , Malignant neoplasm of lung, unspecified laterality, unspecified part of lung (HCC) MRI Brain Inject, intravenously, once for 1 [...] in the MR contrast administration guidelines link 1 Each 0 10/03/2023 Active Start: 04-25-2023 End: 10-26-2023 inject 1 dose intravenously once iv contrast (will be provided with radiology test) CTA CHST/ABD/PEL LE.No IV access, insert saline lock prior to the sedation, infusion, injection for imaging exam. Discontinue saline lock post exam. If Pt. has a central line or IVAD, may access for administration according to line specific nursing protocol. Once exam is complete flush line and de-access according to line specific nursing protocol in the CT contrast administration guidelines link. 1 Each 04/25/2023 10/26/2023 Discontinued Start: 04-25-2023 End: 10-26-2023 inject 1 dose intravenously once iv contrast (will be provided with radiology test) CTA ABD/PEL LE - No IV access, insert saline lock prior to the sedation, infusion, injection for imaging exam. Discontinue saline lock post exam. If Pt. has a central line or IVAD, may access for administration according to line specific nursing protocol. Once exam is complete flush line and de-access according to line specific nursing protocol in the CT contrast administration guidelines link. 1 Each 04/25/2023 10/26/2023 Discontinued Start: 04-25-2023 inject 1 dose intravenously on ce iv contrast (will be provided with radiology test) CTA CHST/ABD/PEL LE.No IV access, insert saline lock prior to the sedation, infusion, injection for imaging exam. Discontinue saline lock post exam. If Pt. has a central line or IVAD, may access for administration according to line specific nursing protocol. Once exam is complete flush line and de-access according to line specific nursing protocol in the CT contrast administration guidelines link. 1 Each 04/25/2023 Active Start: 04-25-2023 inject 1 dose intravenously on ce iv contrast (will be provided with radiology test) CTA ABD/PEL LE - No IV access, insert saline lock prior to the sedation, infusion, injection for imaging exam. Discontinue saline lock post exam. If Pt. has a central line or IVAD, may access for administration according to line specific nursing protocol. Once exam is complete flush line and de-access according to line specific nursing protocol in the CT contrast administration guidelines link. 1 Each 04/25/2023 Active Start: 04-25-2023 inject 1 dose intravenously on ce iv contrast (will be provided with radiology test) CTA CHST/ABD/PEL LE.No IV access, insert saline lock prior to the sedation, infusion, injection for imaging exam. Discontinue saline lock post exam. If Pt. has a central line or IVAD, may access for administration according to line specific nursing protocol. Once exam is complete flush line and de-access according to line specific nursing protocol in the CT contrast administration guidelines link. 1 Each 0 04/25/2023 Active Start: 04-25-2023 inject 1 dose intravenously on ce iv contrast (will be provided with radiology test) CTA ABD/PEL LE - No IV access, insert saline lock prior to the sedation, infusion, injection for imaging exam. Discontinue saline lock post exam. If Pt. has a central line or IVAD, may access for administration according to line specific nursing protocol. Once exam is complete flush line and de-access according to line specific nursing protocol in the CT contrast administration guidelines link. 1 Each 0 04/25/2023 Active Start: 04-25-2023 End: 04-26-2023 inject 1 dose intravenously once iv contrast (will be provided with radiology test) CTA CHST/ABD/PEL LE.No IV access, insert saline lock prior to the sedation, infusion, injection for imaging exam. Discontinue saline lock post exam. If Pt. has a central line or IVAD, may access for administration according to line specific nursing protocol. Once exam is complete flush line and de-access according to line specific nursing protocol in the CT contrast administration guidelines link. 1 Each 0 04/25/2023 04/26/2023 Active Start: 04-25-2023 End: 04-26-2023 inject 1 dose intravenously once iv contrast (will be provided with radiology test) CTA ABD/PEL LE - No IV access, insert saline lock prior to the sedation, infusion, injection for imaging exam. Discontinue saline lock post exam. If Pt. has a central line or IVAD, may access for administration according to line specific nursing protocol. Once exam is complete flush line and de-access according to line specific nursing protocol in the CT contrast administration guidelines link. 1 Each 0 04/25/2023 04/26/2023 Active Start: 04-25-2023 End: 04-25-2023 inject 1 dose intravenously once iv contrast (will be provided with radiology test) CTA ABD/PEL LE - No IV access, insert saline lock prior to the sedation, infusion, injection for imaging exam. Discontinue saline lock post exam. If Pt. has a central line or IVAD, may access for administration according to line specific nursing protocol. Once exam is complete flush line and de-access according to line specific nursing protocol in the CT contrast administration guidelines link. 1 Each 0 04/25/2023 04/25/2023 Discontinued Start: 04-25-2023 End: 04-25-2023 inject 1 dose intravenously once iv contrast (will be provided with radiology test) CTA CHST/ABD/PEL LE.No IV access, insert saline lock prior to the sedation, infusion, injection for imaging exam. Discontinue saline lock post exam. If Pt. has a central line or IVAD, may access for administration according to line specific nursing protocol. Once exam is complete flush line and de-access according to line specific nursing protocol in the CT contrast administration guidelines link. 1 Each 0 04/25/2023 04/25/2023 Discontinued Start: 08-20-2020 End: 10-26-2023 iv contrast (will be provide d with radiology test) CT ABD/PEL -Inject, intravenously, once for 1 dose.No IV [...] in the CT contrast administration guidelines link. 1 Each 08/20/2020 10/26/2023 Discontinued Start: 08-20-2020 End: 04-24-2024 iv contrast (will be provide d with radiology test) CT ABD/PEL -Inject, intravenously, once for 1 dose.No IV [...] in the CT contrast administration guidelines link. 1 Each 08/20/2020 04/24/2024 Active Start: 08-20-2020 End: 04-24-2024 iv contrast (will be provide d with radiology test) CT ABD/PEL -Inject, intravenously, once for 1 dose.No IV [...] in the CT contrast administration guidelines link. 1 Each 0 08/20/2020 04/24/2024 Active Start: 08-14-2020 End: 10-26-2023 iv contrast (will be provide d with radiology test) CT ABD/PEL -Inject, intravenously, once for 1 dose.No IV [...] in the CT contrast administration guidelines link. 1 Each 08/14/2020 10/26/2023 Discontinued Start: 08-14-2020 End: 04-24-2024 iv contrast (will be provide d with radiology test) CT ABD/PEL -Inject, intravenously, once for 1 dose.No IV [...] in the CT contrast administration guidelines link. 1 Each 08/14/2020 04/24/2024 Active Start: 08-14-2020 End: 04-24-2024 iv contrast (will be provide d with radiology test) CT ABD/PEL -Inject, intravenously, once for 1 dose.No IV [...] in the CT contrast administration guidelines link. 1 Each 0 08/14/2020 04/24/2024 Active Comment on above: CTA CHST/ABD/PEL LE. No IV access, insert saline lock prior to the sedation, infusion, injection for imaging exam. Discontinue saline lock post exam. If Pt. has a central line or IVAD, may access for administration according to line specific nursing protocol. Once exam is complete flush line and de-access according to line specific nursing protocol in the CT contrast administration guidelines link. CTA ABD/PEL LE - No IV access, insert saline lock prior to the sedation, infusion, injection for imaging exam. Discontinue saline lock post exam. If Pt. has a central line or IVAD, may access for administration according to line specific nursing protocol. Once exam is complete flush line and de-access according to line specific nursing protocol in the CT contrast administration guidelines link. CT ABD/PEL -Inject, intravenously, once for 1 dose.No IV [...] in the CT contrast administration guidelines link. levoFLOXacin 750 mg oral tablet (3 sources) Quinolone Antimicrobial Start: End: levoFLOXacin (LEVAQUIN) 750 mg tablet Take 1 tablet by mouth as directed. prior to HOPS procedure. 1 tablet 0 09/11/2020 08/11/2021 Discontinued Comment on above: Take 1 tablet by isabel th as directed. prior to HOPS procedure. 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 APPLY TO: right chest - Remove patch after 12 hours. 5 Patch 11/20/2023 11/25/2023 Active oxyCODONE hydrochloride 5 mg oral tablet (3 sources) Opioid Agonist Start: 025 End: take 1 tablet by mouth every six hours as needed for pain oxyCODONE IR (ROXICODONE) 5 mg immediate release tablet Indications: Bronchopleural fistula (HCC) , Postoperative pain Take 1 tablet by mouth every 6 hours as needed for pain for up to 7 days. 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 28 tablet 11/19/2023 11/26/2023 Active sulfamethoxazole 800 mg / trimethoprim 160 mg oral tablet (1 source) Dihydrofolate Reductase Inhibitor Antibacterial, Sulfonamide Antimicrobial Start: 11-19-2023 End: 11-22-2023 take 1 tablet by mouth every twelve hours sulfamethoxazole-trimethoprim (BACTRIM DS) 800-160 mg per tablet Indications: Abscess of lower lobe of right lung without pneumonia (HCC) , E coli infection Take 1 tablet by mouth every 12 hours for 5 doses. 5 tablet 11/19/2023 11/22/2023 Active tamsulosin hydrochloride 0.4 mg oral capsule (3 sources) alpha-Adrenergic Sumaya Start: 01-14-2021 End: 08-11-2021 take 1 capsule by mouth once daily tamsulosin (FLOMAX) 0.4 mg Indications: Malignant neoplasm of prostate (HCC) TAKE 1 CAPSULE BY MOUTH EVERY DAY 30 capsule 2 01/14/2021 08/11/2021 Discontinued Comment on above: TAKE 1 CAPSULE BY [facility] EVERY DAY Completed/Discontinued Medications Medication Drug Class(es) Dates Sig (Normalized) Sig (Original) acetaminophen 325 mg oral tablet (20 sources) Start: 05-12-2024 End: 08-20-2024 take 2 tablets by mouth every four hours as needed acetaminophen (TYLENOL) 325 mg tablet Take 2 tablets by mouth every 4 hours as needed for pain. 05/12/2024 08/20/2024 Discontinued Start: 11-19-2023 End: 11-26-2023 take 2 tablets by mouth every six hours as needed for pain acetaminophen (TYLENOL) 500 mg tablet Indications: Malignant neoplasm of lower lobe of right lung (HCC) , Postoperative pain Take 2 tablets by mouth every 6 hours as needed for pain for up to 7 days. 11/19/2023 11/26/2023 Active [id number] 200 actuat albuterol 0.09 mg/actuat metered dose inhaler (20 sources) beta2-Adrenergic Agonist Start: 06-13-2024 End: 09-11-2024 take 2 puff(s) by inhalation every four hours as needed albuterol HFA (PROVENTIL HFA, VENTOLIN HFA) 90 mcg/actuation inhaler Inhale 2 puffs as instructed every 4 hours as needed. 1 each 3 06/13/2024 Suspended amLODIPine 5 mg oral tablet (20 sources) Dihydropyridine Calcium Channel Sumaya Start: 12-19-2023 End: 06-13-2024 take 1 tablet by mouth once daily amLODIPine (NORVASC) 5 mg tablet Take 1 tablet by mouth once daily. 90 tablet 3 05/23/2024 06/13/2024 Discontinued Start: 12-19-2023 take 1 tablet by isabel th once daily amLODIPine (NORVASC) 5 mg tablet Take 1 tablet by mouth once daily. Patient should start on December 19, 2023. 90 tablet 3 12/19/2023 Active Start: 12-19-2023 take 1 tablet by isabel th once daily amLODIPine (NORVASC) 5 mg tablet Take 1 tablet by mouth once daily. Patient should start on December 19, 2023. 90 tablet 3 12/19/2023 Active Start: 12-19-2023 take 1 tablet by isabel th once daily amLODIPine (NORVASC) 5 mg tablet Take 1 tablet by mouth once daily. Patient should start on December 19, 2023. 90 tablet 3 12/19/2023 Active Start: 12-19-2023 take 1 tablet by isabel th once daily amLODIPine (NORVASC) 5 mg tablet Take 1 tablet by mouth once daily. Patient should start on December 19, 2023. 90 tablet 3 12/19/2023 Active Start: 12-19-2023 take 1 tablet by isabel th once daily amLODIPine (NORVASC) 5 mg tablet Take 1 tablet by mouth once daily. Patient should start on December 19, 2023. 90 tablet 3 12/19/2023 Active Start: 12-19-2023 take 1 tablet by isabel th once daily amLODIPine (NORVASC) 5 mg tablet Take 1 tablet by mouth once daily. Patient should start on December 19, 2023. 90 tablet 3 12/19/2023 Active Start: 05-26-2020 End: 05-29-2023 take 1 tablet by mouth once daily amLODIPine (NORVASC) 5 mg tablet Take 1 tablet by mouth once daily. 90 tablet 3 05/29/2023 Suspended Comment on above: Take 1 tablet by isabel th once daily. atorvastatin 20 mg oral tablet (20 sources) HMG-CoA Reductase Inhibitor Start: 05-27-19 End: 09-04-19 take 1 tablet by mouth once daily atorvastatin (LIPITOR) 20 mg tablet Take 1 tablet by mouth once daily. 90 tablet 3 09/03/2024 Suspended Comment on above: Take 1 tablet by isabel th once daily. fluticasone / salmeterol (20 sources) Corticosteroid, beta2-Adrenergic Agonist Start: 06-14-19 End: 06-09-19 take 1 puff(s) by inhalation twice daily fluticasone-salmeter ol (WIXELA INHUB) 250-50 mcg/dose inhaler Inhale 1 puff as instructed two times a day. 120 each 06/13/2024 06/08/2025 Suspended Start: 06-13-2024 End: 06-08-2025 take 1 puff(s) by inhalation twice daily fluticasone-salmeterol (WIXELA INHUB) 250-50 mcg/dose inhaler Inhale 1 puff as instructed two times a day. 120 each 06/13/2024 06/08/2025 Active Start: 09-22-2023 End: 06-13-2024 take 1 puff(s) by inhalation twice daily fluticasone-salmeterol (WIXELA INHUB) 250-50 mcg/dose inhaler Inhale 1 Puff as instructed two times a day. 60 Each 09/22/2023 06/13/2024 Discontinued Start: 09-22-2023 take 1 puff(s) by in halation twice daily fluticasone-salmeterol (WIXELA INHUB) 250-50 mcg/dose inhaler Inhale 1 Puff as instructed two times a day. 60 Each 09/22/2023 Active Start: 09-22-2023 End: 03-20-2024 take 1 puff(s) by inhalation twice daily fluticasone-salmeterol (WIXELA INHUB) 250-50 mcg/dose inhaler Inhale 1 Puff as instructed two times a day. 60 Each 5 09/22/2023 03/20/2024 Suspended Start: 09-22-2023 End: 03-20-2024 take 1 puff(s) by inhalation twice daily fluticasone-salmeterol (WIXELA INHUB) 250-50 mcg/dose inhaler Inhale 1 Puff as instructed two times a day. 60 Each 09/22/2023 03/20/2024 Active Start: 09-01-2023 End: 09-22-2023 take 1 puff(s) by inhalation twice daily fluticasone-salmeterol (WIXELA INHUB) 250-50 mcg/dose inhaler Inhale 1 Puff as instructed two times a day. 60 Each 3 09/01/2023 09/22/2023 Discontinued Start: 09-01-2023 End: 12-30-2023 take 1 puff(s) by inhalation twice daily fluticasone-salmeterol (WIXELA INHUB) 250-50 mcg/dose inhaler Inhale 1 Puff as instructed two times a day. 60 Each 3 09/01/2023 12/30/2023 Active Start: 08-14-2023 End: 09-01-2023 take 1 puff(s) by inhalation twice daily fluticasone-salmeterol (WIXELA INHUB) 100-50 mcg/dose inhaler Inhale 1 Puff as instructed two times a day. 60 Each 2 08/14/2023 09/01/2023 Discontinued Start: 08-14-2023 End: 11-12-2023 take 1 puff(s) by inhalation twice daily fluticasone-salmeterol (WIXELA INHUB) 100-50 mcg/dose inhaler Inhale 1 Puff as instructed two times a day. 60 Each 2 08/14/2023 11/12/2023 Active 120 actuat formoterol fumarate 0.0048 mg/actuat / glycopyrrolate 0.009 mg/actuat metered dose inhaler (1 source) beta2-Adrenergic Agonist Start: 08-14-2023 End: 08-14-2023 glycopyrrolate-formoterol (BEVESPI AEROSPHERE) 9-4.8 mcg Inhale 2 Puffs as instructed two times a day. 1 Each 3 08/14/2023 08/14/2023 Discontinued gabapentin 300 mg oral capsule (20 sources) Anti-epileptic Agent Start: 02-22-2021 End: 07-13-2025 take 2 capsules by mouth three times daily gabapentin (NEURONTIN) 300 mg capsule Indications: Spinal stenosis of lumbar region with neurogenic claudication , Paresthesias TAKE 2 CAPSULES BY MOUTH 3 TIMES A DAY 540 capsule 3 04/25/2024 07/13/2025 Suspended Comment on above: TAKE 2 CAPSULES BY M OUTH 3 TIMES A DAY 12 hr guaiFENesin 600 mg extended release oral tablet (20 sources) Start: 11-19-2023 End: 04-25-2024 take 1 tablet by mouth every twelve hours in the evening guaiFENesin (MUCINEX) 600 mg 12 hr tablet Take 1 tablet by mouth every 12 hours. 20 tablet 11/19/2023 3:47 PM EDT 11/19/2023 04/25/2024 Discontinued hydroCHLOROthiazide 12.5 mg / lisinopril 20 mg oral tablet (20 sources) Thiazide Diuretic, Angiotensin Converting Enzyme Inhibitor Start: 12-19-2023 End: 09-03-2024 take 1 tablet by mouth once daily lisinopril-hydroCHLOROthia zide (ZESTORETIC) 20-12.5 mg per tablet Take 1 tablet by mouth once daily. 90 tablet 3 09/03/2024 Suspended Start: 12-19-2023 take 1 tablet by isabel th once daily lisinopril-hydroCHLOROthiazide (ZESTORET IC) 20-12.5 mg per tablet Take 1 tablet by mouth once daily. Patient should start on December 19, 2023. 90 tablet 3 12/19/2023 Active Start: 12-19-2023 take 1 tablet by isabel th once daily lisinopril-hydroCHLOROthiazide (ZESTORET IC) 20-12.5 mg per tablet Take 1 tablet by mouth once daily. Patient should start on December 19, 2023. 90 tablet 3 12/19/2023 Active Start: 12-19-2023 take 1 tablet by isabel th once daily lisinopril-hydroCHLOROthiazide (ZESTORET IC) 20-12.5 mg per tablet Take 1 tablet by mouth once daily. Patient should start on December 19, 2023. 90 tablet 3 12/19/2023 Active Start: 12-19-2023 take 1 tablet by isabel th once daily lisinopril-hydroCHLOROthiazide (ZESTORET IC) 20-12.5 mg per tablet Take 1 tablet by mouth once daily. Patient should start on December 19, 2023. 90 tablet 3 12/19/2023 Active Start: 12-19-2023 take 1 tablet by isabel th once daily lisinopril-hydroCHLOROthiazide (ZESTORET IC) 20-12.5 mg per tablet Take 1 tablet by mouth once daily. Patient should start on December 19, 2023. 90 tablet 3 12/19/2023 Active Start: 12-19-2023 take 1 tablet by isabel th once daily lisinopril-hydroCHLOROthiazide (ZESTORET IC) 20-12.5 mg per tablet Take 1 tablet by mouth once daily. Patient should start on December 19, 2023. 90 tablet 3 12/19/2023 Active Start: 09-06-2021 End: 08-21-2023 take 1 tablet by mouth once daily lisinopril-hydroCHLOROthiazide (ZESTORET IC) 20-12.5 mg per tablet Take 1 tablet by mouth once daily. 90 tablet 3 08/21/2023 Suspended Start: 05-26-2020 End: 08-11-2021 take 1 tablet by mouth once daily lisinopril-hydroCHLOROthiazide (PRINZIDE,ZESTORETIC) 20-12.5 mg per tablet Take 1 tablet by mouth once daily. 90 tablet 3 06/03/2021 08/11/2021 Discontinued Comment on above: Take 1 tablet by isabel th once daily. metoprolol tartrate 25 mg oral tablet (20 sources) beta-Adrenergic Sumaya Start: End: take 1 tablet by mouth twice daily in the evening metoprolol tartrate, short acting, (LOPRESSOR) 25 mg tablet Take 1 tablet by mouth two times a day. For prevention of atrial fibrillation after thoracic surgery, stop after 30 days then resume your normal blood pressure medication 60 tablet 11/19/2023 3:47 PM EDT 11/19/2023 04/25/2024 Discontinued mupirocin 0.02 mg/mg topical ointment (4 sources) RNA Synthetase Inhibitor Antibacterial Start: mupirocin (BACTROBAN) 2 % ointment Apply a small amount in each nostril using a cotton swab twice the day before surgery and once the morning of surgery. 22 g 06/07/2024 Suspended 10 actuat olodaterol 0.0025 mg/actuat / tiotropium 0.0025 mg/actuat inhalation spray (2 sources) Anticholinergic, beta2-Adrenergic Agonist Start: End: tiotropium-olodater ol (STIOLTO RESPIMAT) 2.5-2.5 mcg/actuation Inhale 2 Puffs as instructed once daily. 1 Each 3 07/31/2023 08/11/2023 Discontinued (Cost of medication) predniSONE 20 mg oral tablet (3 sources) Start: End: take 1 tablet by mouth once daily predniSONE (DELTASONE) 20 mg tablet Take 1 tablet by mouth once daily for 2 days. Take at 12 noon with lunch on Sunday 11/12 and Monday 11/13. Patient should start on November 13, 2023. 2 tablet 11/13/2023 11/15/2023 Suspended 60 actuat tiotropium 0.96227 mg/actuat inhalation spray (1 source) Anticholinergic Start: End: tiotropium bromide (SPIRIVA RESPIMAT) 1.25 mcg/actuation inhaler Inhale 2 Puffs as instructed once daily. 1 Each 3 08/11/2023 08/14/2023 Discontinued 7 actuat umeclidinium 0.0625 mg/actuat dry powder inhaler (4 sources) Anticholinergic Start: End: take 1 puff(s) by inhalation once daily umeclidinium (INCRUSE ELLIPTA) 62.5 mcg/actuation inhaler Inhale 1 Puff as instructed once daily. 30 Each 2 07/28/2023 07/31/2023 Discontinued (Cost of medication) 30 actuat umeclidinium 0.0625 mg/actuat / vilanterol 0.025 mg/actuat dry powder inhaler (3 sources) Anticholinergic, beta2-Adrenergic Agonist Start: End: take 1 dose by inhalation once daily umeclidinium-vilant mike (ANORO ELLIPTA) 62.5-25 mcg/actuation inhaler Inhale 1 Inhalation as instructed once daily. 60 Each 2 07/28/2023 07/31/2023 Discontinued Problems Active Problems Problem Classification Problem Date Documented Da te Episodic/Chronic Aortic; peripheral; and visceral artery aneurysms (20 sources) Abdominal aortic aneurysm without rupture; Translations: [Abdominal aortic aneurysm, without rupture] Onset: 02-08-2021 02-08-2021 Chronic Cancer of bronchus; lung (20 sources) Squamous cell carcinoma of lung; Translations: [Malignant neoplasm of unspecified part of unspecified bronchus or lung] Onset: 11-15-2023 09-22-2023 Chronic Cancer of bronchus; lung (2 sources) History of malignant neoplasm of thoracic cavity structure; Translations: [Personal history of other malignant neoplasm of bronchus and lung] 10-24-2023 Episodic Cancer of prostate (20 sources) Malignant tumor of prostate; Translations: [Malignant neoplasm of prostate] Onset: 09-11-2023 Chronic Cardiac dysrhythmias (20 sources) Paroxysmal atrial fibrillation; Translations: [Paroxysmal atrial fibrillation] Onset: 09-11-2023 09-01-2023 Chronic Cardiac dysrhythmias (2 sources) Tachycardia; Translations: [Tachycardia, unspecified] Onset: 10-24-2024 10-24-2024 Episodic Chronic obstructive pulmonary disease and bronchiectasis (20 sources) Centriacinar emphysema; Translations: [Centrilobular emphysema] Onset: 11-17-2023 06-09-2023 Chronic Deficiency and other anemia (4 sources) Anemia; Translations: [Anemia, unspecified] Onset: 10-24-2024 10-24-2024 Episodic Deficiency and other anemia (2 sources) Anemia, unspecified; Translations: [Anemia, unspecified] Onset: 11-19-2024 Episodic Disorders of lipid metabolism (20 sources) Mixed hyperlipidemia; Translations: [Mixed hyperlipidemia] Onset: 06-23-2010 Resolved: 09-16-2011 03-25-2015 Chronic Essential hypertension (20 sources) Essential hypertension; Translations: [Essential (primary) hypertension] Onset: 06-23-2010 12-27-2018 Chronic Lymphadenitis (3 sources) Thoracic lymphadenopathy; Translations: [Localized enlarged lymph nodes] Onset: 10-25-2024 10-25-2024 Episodic Nutritional deficiencies (1 source) Folic acid deficiency; Translations: [Deficiency of other specified B group vitamins] Onset: 11-01-2024 11-01-2024 Episodic Other aftercare (1 source) Other chcf (current) drug therapy; Translations: [Other chcf (current) drug therapy] Onset: 11-22-2024 Episodic Other ear and sense organ disorders (20 sources) Hearing loss; Translations: [Unspecified hearing loss, unspecified ear] Onset: 05-10-2024 05-10-2024 Chronic Other gastrointestinal disorders (1 source) Therapeutic opioid induced constipation; Translations: [Drug induced constipation] 07-01-2024 Episodic Other lower respiratory disease (5 sources) Nodule of lung; Translations: [Solitary pulmonary nodule] 05-18-2023 Episodic Other lower respiratory disease (5 sources) Multiple nodules of lung; Translations: [Other nonspecific abnormal finding of lung field] 05-30-2023 Episodic Other lower respiratory disease (4 sources) Dyspnea; Translations: [Shortness of breath] 06-08-2023 Episodic Other lower respiratory disease (9 sources) Lung mass; Translations: [Other nonspecific abnormal finding of lung field] 06-12-2023 Episodic Other lower respiratory disease (2 sources) Other nonspecific abnormal finding of lung field; Translations: [Lung mass] Onset: 06-20-2023 Episodic Other lower respiratory disease (4 sources) Cavitation of lung; Translations: [Other disorders of lung] Onset: 10-24-2024 10-24-2024 Episodic Other lower respiratory disease (1 source) Hypoxemia; Translations: [Hypoxemia] Onset: 11-01-2024 11-01-2024 Episodic Other lower respiratory disease (1 source) Other disorders of lung; Translations: [Cavitary lesion of lung] Onset: 10-24-2024 Episodic Other nutritional; endocrine; and metabolic disorders (20 sources) High density lipoprotein deficiency ; Translations: [Lipoprotein deficiency] Onset: 04-24-2023 04-24-2023 Chronic Pneumonia (except that caused by tuberculosis or sexually transmitted disease) (1 source) Bacterial pneumonia; Translations: [Unspecified bacterial pneumonia] Onset: 11-01-2024 11-01-2024 Episodic Residual codes; unclassified (3 sources) History of lung lobectomy; Translations: [Acquired absence of lung [part of]] Onset: 10-25-2024 10-25-2024 Episodic Septicemia (except in labor) (3 sources) Sepsis; Translations: [Sepsis, unspecified organism] Onset: 10-25-2024 10-25-2024 Episodic Substance-related disorders (20 sources) Smoker; Translations: [Nicotine dependence, unspecified, uncomplicated] Onset: 02-14-2011 02-14-2011 Chronic Unclassified (3 sources) Autogenerated Problem Onset: 10-25-2024 10-25-2024 Unclassified (1 source) Acute cough; Translations: [Acute cough] Onset: 10-24-2024 Unclassified (1 source) Infrarenal abdominal aortic aneurysm (AAA) without rupture; Translations: [Infrarenal abdominal aortic aneurysm (AAA) without rupture] Onset: 11-17-2023 Unclassified (1 source) Abdominal aortic aneurysm (AAA) without rupture, unspecified part (HCC); Translations: [Abdominal aortic aneurysm (AAA) without rupture, unspecified part (HCC)] Onset: 12-19-2023 Past or Other Problems Problem Classification Problem Date Documented Da te Episodic/Chronic Cancer of prostate (3 sources) History of malignant neoplasm of prostate; Translations: [Personal history of malignant neoplasm of prostate] Onset: 06-13-2024 06-09-2023 Episodic Complications of surgical procedures or medical care (3 sources) Postprocedural respiratory disorders; Translations: [Postprocedural pneumothorax] Onset: 02-01-2024 02-01-2024 Episodic Diabetes mellitus without complication (20 sources) Impaired glucose tolerance; Translations: [Impaired glucose tolerance (oral)] Onset: 06-23-2010 04-04-2016 Episodic Diseases of white blood cells (4 sources) Leukocytosis; Translations: [Elevated white blood cell count, unspecified] Onset: 10-24-2024 Resolved: 10-25-2024 10-24-2024 Chronic E Codes: Adverse effects of medical drugs (1 source) Adverse effect of other opioids, initial encounter; Translations: [Constipation due to opioid therapy] Onset: 07-01-2024 Episodic Neoplasms of unspecified nature or uncertain behavior (4 sources) Neoplasm of lung ; Translations: [Neoplasm of unspecified behavior of respiratory system] Onset: 08-20-2024 08-20-2024 Episodic Other ear and sense organ disorders (1 source) Presence of external hearing-aid; Translations: [Hearing aid worn] Onset: 01-31-2024 Episodic Other gastrointestinal disorders (1 source) Drug induced constipation; Translations: [Constipation due to opioid therapy] Onset: 07-01-2024 Episodic Other injuries and conditions due to external causes (1 source) Foreign body in right ear, initial encounter; Translations: [Foreign body of right ear, initial encounter] Onset: 01-31-2024 Episodic Other lower respiratory disease (20 sources) Abscess of lung; Translations: [Abscess of lung without pneumonia] Onset: 11-17-2023 11-17-2023 Episodic Other nervous system disorders (20 sources) Paresthesia; Translations: [Paresthesia of skin] Onset: 06-01-2015 06-01-2015 Episodic Other nervous system disorders (20 sources) Postoperative pain ; Translations: [Other acute postprocedural pain] Onset: 11-16-2023 11-17-2023 Episodic Other nervous system disorders (1 source) Other acute postprocedural pain; Translations: [Postoperative pain] Onset: 06-19-2024 Episodic Other nutritional; endocrine; and metabolic disorders (4 sources) Hypocalcemia; Translations: [Hypocalcemia] Onset: 10-24-2024 Resolved: 10-25-2024 10-24-2024 Chronic Other nutritional; endocrine; and metabolic disorders (4 sources) Hypomagnesemia; Translations: [Hypomagnesemia] Onset: 10-24-2024 Resolved: 10-25-2024 10-24-2024 Chronic Other screening for suspected conditions (not mental disorders or infectious disease) (9 sources) Patient encounter status; Translations: [Encounter for screening for malignant neoplasm of colon] Onset: 10-24-2024 Resolved: 10-25-2024 Episodic Pleurisy; pneumothorax; pulmonary collapse (20 sources) Pleural effusion; Translations: [Pleural effusion, not elsewhere classified] Onset: 11-17-2023 11-17-2023 Episodic Screening and history of mental health and substance abuse codes (8 sources) Ex-smoker; Translations: [Personal history of nicotine dependence] Onset: 06-13-2024 06-09-2023 Episodic Spondylosis; intervertebral disc disorders; other back problems (20 sources) Spinal stenosis of lumbar region; Translations: [Spinal stenosis, lumbar region with neurogenic claudication] Onset: 06-01-2015 06-01-2015 Episodic Results Test Name Value Interpretation Reference Range Facility [facility] 11-26-2024 [facility] Letter Text Letter Text Normal [facility] CBC W/Diff, Automatedon - Absolute Lymph 1.73 X10 3/uL Normal 0.83-4.51 [facility] Comment on above: Order Comment: 108.1 Performed By: #### L 100.0100, L500.3400, L501.1105 #### [facility] [address] [place], [address] Absolute Neut 4.6 X10 3/uL Normal 2.0-7.7 [facility] Comment on above: Order Comment: 108.1 Performed By: #### L 100.0100, L500.3400, [id number] #### [facility] [address] [place], [address] Basophils/100 WBC (Bld) 1.2 % High 0-1 [facility] Comment on above: Order Comment: 108.1 Performed By: #### L 100.0100, L500.3400, [id number] #### [facility] [address] [place], [address] Eosinophils/100 WBC (Bld) 4.1 % Normal 0-5 [facility] Comment on above: Order Comment: 108.1 Performed By: #### L 100.0100, [id number], [id number] #### [facility] [address] [place], [address] Erythrocyte distribution width (RBC) [Ratio] 14.3 % Normal 11.6-14.6 [facility] Comment on above: Order Comment: 108.1 Performed By: #### L 100.0100, L500.3400, [id number] #### [facility] [address] [place], [address] Hematocrit (Bld) [Volume fraction] 34.5 % Low 40-54 [facility] Comment on above: Order Comment: 108.1 Performed By: #### L 100.0100, L500.3400, [id number] #### [facility] [address] [place], [address] Hemoglobin (Bld) [Mass/Vol] 11.0 g/dL Low 13.0-16.5 [facility] Comment on above: Order Comment: 108.1 Performed By: #### L 100.0100, [id number], [id number] #### [facility] [address] [place], [address] IG% 0.400 Normal 0.0-0.9 [facility] Comment on above: Order Comment: 108.1 Result Comment: IG% - Immature Granulocytes (promyelocytes, myelocytes and metamyelocytes) > 1% indicates that a LEFT SHIFT is Present. Performed By: #### L 100.0100, L500.3400, [id number] #### [facility] [address] [place], [address] Lymphocytes/100 WBC (Bld) 23.5 % Normal 19-41 [facility] Comment on above: Order Comment: 108.1 Performed By: #### L 100.0100, L500.3400, [id number] #### [facility] [address] [place], [address] MCH (RBC) [Entitic mass] 29.0 pg Normal 27.0-32.0 [facility] Comment on above: Order Comment: 108.1 Performed By: #### L 100.0100, L500.3400, [id number] #### [facility] [address] [place], [address] MCHC (RBC) [Mass/Vol] 31.9 g/dL Low 32-36 [facility] Comment on above: Order Comment: 108.1 Performed By: #### L 100.0100, [id number], [id number] #### [facility] [address] [place], [address] MCV (RBC) [Entitic vol] 91.0 fL Normal 80-94 [facility] Comment on above: Order Comment: 108.1 Performed By: #### L 100.0100, [id number], [id number] #### [facility] [address] [place], [address] Monocytes/100 WBC (Bld) 8.0 % Normal 0-10 [facility] Comment on above: Order Comment: 108.1 Performed By: #### L 100.0100, L500.3400, [id number] #### [facility] [address] [place], [address] Neutrophils/100 WBC (Bld) 62.8 % Normal 47-70 [facility] Comment on above: Order Comment: 108.1 Performed By: #### L 100.0100, [id number], [id number] #### [facility] [address] [place], [address] Nucleated RBC (Bld) [#/Vol] 0 10*3/uL Normal 0-5 [facility] Comment on above: Order Comment: 108.1 Performed By: #### L 100.0100, L500.3400, [id number] #### [facility] [address] [place], [address] Platelet mean volume (Bld) [Entitic vol] 9.6 fL Normal 6.2-12.0 [facility] Comment on above: Order Comment: 108.1 Performed By: #### L 100.0100, [id number], [id number] #### [facility] [address] [place], [address] Platelets (Bld) [#/Vol] 319 10*3/uL Normal 150-450 [facility] Comment on above: Order Comment: 108.1 Performed By: #### L 100.0100, [id number], [id number] #### [facility] [address] [place], [address] RBC (Bld) [#/Vol] 3.79 10*6/uL Low 4.6-6.[address] [facility] Comment on above: Order Comment: 108.1 Performed By: #### L 100.0100, L500.3400, [id number] #### [facility] [address] [place], [address] RDW SD 48.0 fl High 35.1-43.9 [facility] Comment on above: Order Comment: 108.1 Performed By: #### L 100.0100, [id number], [id number] #### [facility] [address] [place], [address] WBC (Bld) [#/Vol] 7.4 10*3/uL Normal 4.4-11.0 [facility] Comment on above: Order Comment: 108.1 Performed By: #### L 100.0100, [id number], [id number] #### [facility] [address] [place], [address] CNPTOUTREACHon 11-25-2024 CNPTOUTREACH Normal [facility] Liver Profileon 11-25-2024 Albumin [Mass/Vol] 3.3 g/dL Low 3.4-4.8 [facility] Comment on above: Order Comment: 108.1 Performed By: #### L 100.0100, [id number], [id number] #### [facility] [address] [place], [address] ALK PHOS 79 U/L Normal 40-129 [facility] Comment on above: Order Comment: 108.1 Performed By: #### L 100.0100, [id number], [id number] #### [facility] [address] [place], [address] ALT [Catalytic activity/Vol] 9 U/L Normal <=46 [facility] Comment on above: Order Comment: 108.1 Performed By: #### L 100.0100, [id number], [id number] #### [facility] [address] [place], [address] AST [Catalytic activity/Vol] 14 U/L Normal <=37 [facility] Comment on above: Order Comment: 108.1 Performed By: #### L 100.0100, [id number], [id number] #### [facility] [address] [place], [address] Bilirubin [Mass/Vol] 0.24 mg/dL Normal 0.00-1.30 [facility] Comment on above: Order Comment: 108.1 Performed By: #### L 100.0100, [id number], [id number] #### [facility] [address] [place], [address] Bilirubin.direct [Mass/Vol] 0.13 mg/dL Normal 0.00-0.30 [facility] Comment on above: Order Comment: 108.1 Performed By: #### L 100.0100, L500.3400, [id number] #### [facility] [address] [place], [address] Globulin (S) [Mass/Vol] 3.1 g/dL Normal 2.2-4.2 [facility] Comment on above: Order Comment: 108.1 Performed By: #### L 100.0100, [id number], [id number] #### [facility] [address] [place], [address] T PROT 6.3 g/dL Normal 5.9-8.4 [facility] Comment on above: Order Comment: 108.1 Performed By: #### L 100.0100, [id number], [id number] #### [facility] [address] [place], [address] Serum Creatinine AND GFRon 0 - Creatinine [Mass/Vol] 0.58 mg/dL Low 0.70-1.20 [facility] Comment on above: Order Comment: 108.1 Performed By: #### L 100.0100, [id number], [id number] #### [facility] [address] [place], [address] GFR/1.73 sq M.predicted among non-blacks MDRD (S/P/Bld) [Vol rate/Area] 104 mL/min/{1.73_m2} Normal >60 [facility] Comment on above: Order Comment: 108.1 Result Comment: mL/m in/1.73m2 CKD-EPI Creatinine Equation (2020) Performed By: #### L 100.0100, L500.3400, [id number] #### [facility] [address] [place], [place], [address] CT CHEST W IVCONon CT CHEST W IVCON * * *Final Report* * * DATE OF EXAM: Nov 21 2024 12:37PM [facility] [id number] - CT CHEST W IVCON / PROCEDURE REASON: D49.1-Neoplasm of lung * * * * Physician Interpretation * * * * EXAMINATION: CHEST CT WITH CONTRAST CLINICAL HISTORY: Lung cancer Technique: Spiral CT acquisition of the chest from the thoracic inlet to the upper abdomen following IV contrast. MQ: [id number] Contrast: 50 mL Omnipaque [address] Radiation dose: Integrated Dose-length product (DLP) for this visit = 237 mGy*cm CT Dose Reduction Employed: Automated exposure control(AEC) and iterative recon Comparison: CT chest 10/24/2024 RESULT: Limitations: None. Lines, tubes, and devices: Right-sided PIC line with the tip at the cavoatrial junction. Lung parenchyma and airways: Thick-walled cavitary mass in the lateral right upper lobe abutting the pleural surface measures 9.4 x 5.3 x 7.9 cm, previously 10 x 5.9 x 9.2 cm. There is a small amount of fluid dependently in the cavitary portion. There has been a slight increase in prominence of consolidations and volume loss in the posterior right upper lobe adjacent to the cavitary lesion. There has been a decrease in size of some nodular and patchy opacities posteriorly in the right upper lobe inferior to the cavitary lesion. Decreased prominence of previously described groundglass opacities in the upper lobes bilaterally. Postoperative changes from a right lower lobectomy. Calcified granuloma in the right middle lobe. There is some traction bronchiectasis in the right middle lobe. Central airways are patent. Pleural space: Unchanged right pleural thickening Lower neck, lymph nodes, and mediastinum: Right thyroid nodule. Unchanged size of right paratracheal lymph nodes measuring up to 1.2 cm short axis (2:49). Heart, pericardium, and thoracic vessels: The thoracic [...] Localizer images: No additional findings. IMPRESSION: 1. Slight decrease in size of a thick-walled cavitary mass in the lateral right upper lobe. There has been an increase in consolidation and volume loss in the posterior right upper lobe adjacent to the cavitary lesion. 2. Slight decrease in prominence of previously described upper lobe groundglass opacities 3. There has been a decrease in size of some of the previously described patchy nodular opacities in the right upper lobe inferior to the cavitary lesion 4. Unchanged mediastinal lymphadenopathy 5. Right pleural thickening Quantitative Equity Head: IMMANUEL Transcribe Date/Time: Nov 27 2024 2:06P Dictated by : ANNE COUGHLIN MD This examination was interpreted and the report reviewed and electronically signed by: ANNE COUGHLIN MD on Nov 27 2024 2:28PM EST [id number] Normal [facility] CBC W Auto Differential pane l (Bld)on 11-19-2024 Basophils (Bld) [#/Vol] 0.09 10*3/uL Normal <0.11 [facility] Comment on above: Order Comment: Speci men Type: BLOOD SPECIMENOrdering Facility: [facility] Address: [address] [place] [address] Performed By: #### 5 7021-8 ####[facility] LABORATORYCLIA [id number] [address] STATES [facility] Basophils/100 WBC (Bld) 1.0 % Normal [facility] Comment on above: Order Comment: Speci men Type: BLOOD SPECIMENOrdering Facility: [facility] Address: [address] [place] [address] Performed By: #### 5 7021-8 ####[facility] LABORATORYCLIA [id number] [address] Differential cell count method Nom (Bld) Auto Normal [facility] Comment on above: Order Comment: Speci men Type: BLOOD SPECIMENOrdering Facility: [facility] Address: [address] [place] [address] Performed By: #### 5 7021-8 ####[facility] LABORATORYCLIA [id number] [address] [place] [facility] Eosinophils (Bld) [#/Vol] 0.30 10*3/uL Normal <0.46 [facility] Comment on above: Order Comment: Speci men Type: BLOOD SPECIMENOrdering Facility: [facility] Address: [address] [place] [address] Performed By: #### 5 7021-8 ####[facility] LABORATORYCLIA [id number] [address] Eosinophils/100 WBC (Bld) 3.3 % Normal [facility] Comment on above: Order Comment: Speci men Type: BLOOD SPECIMENOrdering Facility: [facility] Address: [address] [place] [address] Performed By: #### 5 7021-8 ####[facility] LABORATORYCLIA [id number] [address] [place] Erythrocyte distribution width (RBC) [Ratio] 14.3 % Normal 11.5-15.0 [facility] Comment on above: Order Comment: Speci men Type: BLOOD SPECIMENOrdering Facility: [facility] Address: [address] [place] [address] Performed By: #### 5 7021-8 ####[facility] LABORATORYCLIA [id number] [place] [address] [place] Hematocrit (Bld) [Volume fraction] 36.1 % Low 39.0-51.0 [facility] Comment on above: Order Comment: Speci men Type: BLOOD SPECIMENOrdering Facility: [facility] Address: [address] [place] [address] Performed By: #### 5 7021-8 ####[facility] LABORATORYCLIA [id number] [address] [place] Hemoglobin (Bld) [Mass/Vol] 11.2 g/dL Low 13.0-17.0 [facility] Comment on above: Order Comment: Speci men Type: BLOOD SPECIMENOrdering Facility: [facility] Address: [address] [place] [address] Performed By: #### 5 7021-8 ####[facility] LABORATORYCLIA [id number] [address] [place] Immature granulocytes (Bld) [#/Vol] 0.04 10*3/uL Normal <0.10 [facility] Comment on above: Order Comment: Speci men Type: BLOOD SPECIMENOrdering Facility: [facility] Address: [address] [place] [address] Performed By: #### 5 7021-8 ####[facility] LABORATORYCLIA [id number] [address] [place] Immature granulocytes/100 WBC (Bld) 0.4 % Normal [facility] Comment on above: Order Comment: Speci men Type: BLOOD SPECIMENOrdering Facility: [facility] Address: [address] [place] [address] Performed By: #### 5 7021-8 ####[facility] LABORATORYCLIA [id number] [place] [address] [place] Lymphocytes (Bld) [#/Vol] 1.52 10*3/uL Normal 1.00-4.00 [facility] Comment on above: Order Comment: Speci men Type: BLOOD SPECIMENOrdering Facility: [facility] Address: [address] [place] [address] Performed By: #### 5 7021-8 ####[facility] LABORATORYCLIA [id number] [address] [place] Lymphocytes/100 WBC (Bld) 16.9 % Normal [facility] Comment on above: Order Comment: Speci men Type: BLOOD SPECIMENOrdering Facility: [facility] Address: [address] [place] [address] Performed By: #### 5 7021-8 ####SH[facility] LABORATORYCLIA [id number] [address] MCH (RBC) [Entitic mass] 28.6 pg Normal 26.0-34.0 [facility] Comment on above: Order Comment: Speci men Type: BLOOD SPECIMENOrdering Facility: [facility] Address: [address] [place] [address] Performed By: #### 5 7021-8 ####[facility] LABORATORYCLIA [id number] [address] [place] [facility] MCHC (RBC) [Mass/Vol] 31.0 g/dL Normal 30.5-36.0 [facility] Comment on above: Order Comment: Speci men Type: BLOOD SPECIMENOrdering Facility: [facility] Address: [address] [place] [address] Performed By: #### 5 7021-8 ####SH[facility] LABORATORYCLIA [id number] [address] MCV (RBC) [Entitic vol] 92.1 fL Normal 80.0-100.0 [facility] Comment on above: Order Comment: Speci men Type: BLOOD SPECIMENOrdering Facility: [facility] Address: [address] [place] [address] Performed By: #### 5 7021-8 ####[facility] LABORATORYCLIA [id number] [address] Monocytes (Bld) [#/Vol] 0.70 10*3/uL Normal <0.87 [facility] Comment on above: Order Comment: Speci men Type: BLOOD SPECIMENOrdering Facility: [facility] Address: [address] [place], [place] [address] Performed By: #### 5 7021-8 ####SH[facility] LABORATORYCLIA [id number] [place] [address] [place] Monocytes/100 WBC (Bld) 7.8 % Normal [facility] Comment on above: Order Comment: Speci men Type: BLOOD SPECIMENOrdering Facility: [facility] Address: [address] [place] [address] Performed By: #### 5 7021-8 ####[facility] LABORATORYCLIA [id number] [place] [address] [place] Neutrophils (Bld) [#/Vol] 6.36 10*3/uL Normal 1.45-7.50 [facility] Comment on above: Order Comment: Speci men Type: BLOOD SPECIMENOrdering Facility: [facility] Address: [address] [place] [address] Performed By: #### 5 7021-8 ####[facility] LABORATORYCLIA [id number] [place] [address] [place] Neutrophils/100 WBC (Bld) 70.6 % Normal [facility] Comment on above: Order Comment: Speci men Type: BLOOD SPECIMENOrdering Facility: [facility] Address: [address] [place] [address] Performed By: #### 5 7021-8 ####[facility] LABORATORYCLIA [id number] [place] [address] [place] Nucleated RBC (Bld) [#/Vol] 10*3/uL Normal <0.01 [facility] Comment on above: Order Comment: Speci men Type: BLOOD SPECIMENOrdering Facility: [facility] Address: [address] [place] [address] Performed By: #### 5 7021-8 ####[facility] LABORATORYCLIA [id number] [address] [place] Nucleated RBC/100 WBC (Bld) [Ratio] 0.0 /100 WBC Normal [facility] Comment on above: Order Comment: Speci men Type: BLOOD SPECIMENOrdering Facility: [facility] Address: [address] [place] [address] Performed By: #### 5 7021-8 ####[facility] LABORATORYCLIA [id number] [place] [address] [place] Platelet mean volume (Bld) [Entitic vol] 9.4 fL Normal 9.0-12.7 [facility] Comment on above: Order Comment: Speci men Type: BLOOD SPECIMENOrdering Facility: [facility] Address: [address] [place] [address] Performed By: #### 5 7021-8 ####[facility] LABORATORYCLIA [id number] [place] [address] [place] Platelets (Bld) [#/Vol] 355 10*3/uL Normal 150-400 [facility] Comment on above: Order Comment: Speci men Type: BLOOD SPECIMENOrdering Facility: [facility] Address: [address] [place] [address] Performed By: #### 5 7021-8 ####[facility] LABORATORYCLIA [id number] [place] [address] [place] RBC (Bld) [#/Vol] 3.92 10*6/uL Low 4.20-6.00 [facility] Comment on above: Order Comment: Speci men Type: BLOOD SPECIMENOrdering Facility: [facility] Address: [address] [place] [address] Performed By: #### 5 7021-8 ####SH[facility] LABORATORYCLIA [id number] [place] [id number] [place] WBC (Bld) [#/Vol] 9.01 10*3/uL Normal 3.70-11.00 [facility] Comment on above: Order Comment: Speci men Type: BLOOD SPECIMENOrdering Facility: [facility] Address: [address] [place] [address] Performed By: #### 5 7021-8 ####SH[facility] LABORATORYCLIA [id number] [place] [id number] [place] CNOVSPon 11-19-2024 CNOVSP Normal [facility] CNPNon 11-19-2024 CNPN Normal [facility] Comprehensive metabolic 2000 panelon 11-19-2024 Albumin [Mass/Vol] 3.7 g/dL Low 3.9-4.9 [facility] Comment on above: Order Comment: Speci men Type: BLOOD SPECIMENOrdering Facility: [facility] Address: [address] [place] [address] Performed By: #### 2 4323-8 ####[facility] LABORATORYCLIA [id number] [place] [address] [place] ALP [Catalytic activity/Vol] 97 U/L Normal 38-113 [facility] Comment on above: Order Comment: Speci men Type: BLOOD SPECIMENOrdering Facility: [facility] Address: [address] [place] [address] Performed By: #### 2 4323-8 ####[facility] LABORATORYCLIA [id number] [address] [place] ALT [Catalytic activity/Vol] 9 U/L Low 10-54 [facility] Comment on above: Order Comment: Speci men Type: BLOOD SPECIMENOrdering Facility: [facility] Address: [address] [place] [address] Performed By: #### 2 4323-8 ####[facility] LABORATORYCLIA [id number] [address] [place] [facility] Anion gap [Moles/Vol] 11 mmol/L Normal 8-15 [facility] Comment on above: Order Comment: Speci men Type: BLOOD SPECIMENOrdering Facility: [facility] Address: [address] [place] [address] Performed By: #### 2 4323-8 ####[facility] LABORATORYCLIA [id number] [address] [place] AST [Catalytic activity/Vol] 11 U/L Low 14-40 [facility] Comment on above: Order Comment: Speci men Type: BLOOD SPECIMENOrdering Facility: [facility] Address: [address] [place] [address] Performed By: #### 2 4323-8 ####[facility] LABORATORYCLIA [id number] [place] [address] [place] Bilirubin [Mass/Vol] 0.4 mg/dL Normal 0.2-1.3 [facility] Comment on above: Order Comment: Speci men Type: BLOOD SPECIMENOrdering Facility: [facility] Address: [address] [place] [address] Performed By: #### 2 4323-8 ####[facility] LABORATORYCLIA [id number] [place] [address] [place] Calcium [Mass/Vol] 8.8 mg/dL Normal 8.5-10.2 [facility] Comment on above: Order Comment: Speci men Type: BLOOD SPECIMENOrdering Facility: [facility] Address: [address] [place] [address] Performed By: #### 2 4323-8 ####[facility] LABORATORYCLIA [id number] [place] [address] [place] Chloride [Moles/Vol] 104 mmol/L Normal 98-107 [facility] Comment on above: Order Comment: Speci men Type: BLOOD SPECIMENOrdering Facility: [facility] Address: [address] [place] [address] Performed By: #### 2 4323-8 ####[facility] LABORATORYCLIA [id number] [place] [address] [place] CO2 [Moles/Vol] 27 mmol/L Normal 22-30 [facility] Comment on above: Order Comment: Speci men Type: BLOOD SPECIMENOrdering Facility: [facility] Address: [address] [place] [address] Performed By: #### 2 4323-8 ####SH[facility] LABORATORYCLIA [id number] [place] [address] [place] Creatinine [Mass/Vol] 0.54 mg/dL Low 0.73-1.22 [facility] Comment on above: Order Comment: Speci men Type: BLOOD SPECIMENOrdering Facility: [facility] Address: [address] [place] [address] Performed By: #### 2 4323-8 ####SH[facility] LABORATORYCLIA [id number] [place] [address] [place] eGFRcr SerPlBld CKD-EPI 2020 106 mL/min/1.73m??? Normal >=60 [facility] Comment on above: Order Comment: Rody adams Type: BLOOD SPECIMENOrdering Facility: [facility] Address: [address] [place] [address] Result Comment: Karon mated Glomerular Filtration Rate (eGFR) is calculated using the 2020 CKD-EPI creatinine equation. This equation utilizes serum creatinine, sex, and age as parameters. The creatinine assay has traceable calibration to isotope dilution-mass spectrometry. Refer to KDIGO guidelines for clinical interpretation. In patients with unstable renal function, e.g. those with acute kidney injury, the eGFR may not accurately reflect actual GFR. Performed By: #### 2 4323-8 ####[facility] LABORATORYCLIA [id number] [place] [address] [place] Glucose [Mass/Vol] 114 mg/dL High 74-99 [facility] Comment on above: Order Comment: Rody adams Type: BLOOD SPECIMENOrdering Facility: [facility] Address: [address] [place] [address] Result Comment: The [place] [employer] (ADA) provides guidance for cutoff values for fasting glucose and random glucose. The ADA defines fasting as no caloric intake for at least 8 hours. Fasting plasma glucose results between 100 to 125 mg/dL indicate increased risk for diabetes (prediabetes).Fasting plasma glucose results greater than or equal to 126 mg/dL meet the criteria for diagnosis of diabetes. In the absence of unequivocal hyperglycemia, results should be confirmed by repeat testing. In a patient with classic symptoms of hyperglycemia or hyperglycemic crisis, random plasma glucose results greater than or equal to 200 mg/dL meet the criteria for diagnosis of diabetes.Reference: Standards of Medical Care in Diabetes 2016, [place] [employer]. Diabetes Care. 2016.39(Suppl 1). Performed By: #### 2 4323-8 ####[facility]IP[facility] LABORATORYCLIA [id number] [place] [address] [place] Potassium [Moles/Vol] 3.5 mmol/L Low 3.7-5.1 [facility] Comment on above: Order Comment: Speci men Type: BLOOD SPECIMENOrdering Facility: [facility] Address: [address] [place] [address] Performed By: #### 2 4323-8 ####SH[facility] LABORATORYCLIA [id number] [place] [address] [place] Protein [Mass/Vol] 7.0 g/dL Normal 6.3-8.0 [facility] Comment on above: Order Comment: Speci men Type: BLOOD SPECIMENOrdering Facility: [facility] Address: [address] [place] [address] Performed By: #### 2 4323-8 ####[facility] LABORATORYCLIA [id number] [place] [address] [place] Sodium [Moles/Vol] 142 mmol/L Normal 136-144 [facility] Comment on above: Order Comment: Speci men Type: BLOOD SPECIMENOrdering Facility: [facility] Address: [address] [place] [address] Performed By: #### 2 4323-8 ####SH[facility] LABORATORYCLIA [id number] [place] [address] [place] Urea nitrogen [Mass/Vol] 7 mg/dL Low 9-24 [facility] Comment on above: Order Comment: Speci men Type: BLOOD SPECIMENOrdering Facility: [facility] Address: [address] [place] [address] Performed By: #### 2 4323-8 ####SHIP[facility] LABORATORYCLIA [id number] [place] [id number] [place] PSA SerPl-mCncon 11-19-2024 Prostate specific Ag [Mass/Vol] ng/mL Normal <2.60 [facility] Comment on above: Order Comment: Speci men Type: BLOOD SPECIMENOrdering Facility: [facility] Address: [address] [place] [address] Result Comment: Tota l PSA test methodology used is the Electrochemiluminescence Immunoassay by [employer]. Total PSA values by differing methodologies cannot be interchanged. Performed By: #### 2 857-1 ####[facility] LABCLIA [id number] [address] [address] [place] Transferrin receptor.soluble [Mass/Vol]on 11-19-2024 Transferrin receptor.soluble [Moles/Vol] 3.0 mg/L Normal 2.2-5.0 [facility] Comment on above: Order Comment: Speci men Type: BLOOD SPECIMENOrdering Facility: [facility] Address: [address] [place] [address] Performed By: #### 3 0248-9 ####[facility] LABCLIA [id number] [place] [id number] [place] CBC W/Diff, Automatedon 10-29 Absolute Lymph 1.69 X10 3/uL Normal 0.83-4.51 [facility] Comment on above: Order Comment: 108.1 Performed By: #### L 100.0100, L500.3400, L501.1105 #### [facility] [address] [place], [address] Absolute Neut 4.9 X10 3/uL Normal 2.0-7.7 [facility] Comment on above: Order Comment: 108.1 Performed By: #### L 100.0100, L500.3400, L501.1105 #### [facility] [address] [place], [address] Basophils/100 WBC (Bld) 1.0 % Normal 0-1 [facility] Comment on above: Order Comment: 108.1 Performed By: #### L 100.0100, L500.3400, L501.1105 #### [facility] [address] [place], [address] Eosinophils/100 WBC (Bld) 4.3 % Normal 0-5 [facility] Comment on above: Order Comment: 108.1 Performed By: #### L 100.0100, L500.3400, L501.1105 #### [facility] [address] [place], [address] Erythrocyte distribution width (RBC) [Ratio] 14.3 % Normal 11.6-14.6 [facility] Comment on above: Order Comment: 108.1 Performed By: #### L 100.0100, L500.3400, L501.1105 #### [facility] [address] [place], [address] Hematocrit (Bld) [Volume fraction] 34.5 % Low 40-54 [facility] Comment on above: Order Comment: 108.1 Performed By: #### L 100.0100, L500.3400, L501.1105 #### [facility] [address] [place], [address] Hemoglobin (Bld) [Mass/Vol] 10.8 g/dL Low 13.0-16.5 [facility] Comment on above: Order Comment: 108.1 Performed By: #### L 100.0100, L500.3400, L501.1105 #### [facility] [address] [place], [address] IG% 0.300 Normal 0.0-0.9 [facility] Comment on above: Order Comment: 108.1 Result Comment: IG% - Immature Granulocytes (promyelocytes, myelocytes and metamyelocytes) > 1% indicates that a LEFT SHIFT is Present. Performed By: #### L 100.0100, L500.3400, L501.1105 #### [facility] [address] [place], [address] Lymphocytes/100 WBC (Bld) 21.8 % Normal 19-41 [facility] Comment on above: Order Comment: 108.1 Performed By: #### L 100.0100, L500.3400, L501.1105 #### [facility] [address] [place], [address] MCH (RBC) [Entitic mass] 28.8 pg Normal 27.0-32.0 [facility] Comment on above: Order Comment: 108.1 Performed By: #### L 100.0100, L500.3400, L501.1105 #### [facility] [address] [place], [address] MCHC (RBC) [Mass/Vol] 31.3 g/dL Low 32-36 [facility] Comment on above: Order Comment: 108.1 Performed By: #### L 100.0100, L500.3400, L501.1105 #### [facility] [address] [place], [address] MCV (RBC) [Entitic vol] 92.0 fL Normal 80-94 [facility] Comment on above: Order Comment: 108.1 Performed By: #### L 100.0100, L500.3400, L501.1105 #### [facility] [address] [place], [address] Monocytes/100 WBC (Bld) 9.0 % Normal 0-10 [facility] Comment on above: Order Comment: 108.1 Performed By: #### L 100.0100, L500.3400, L501.1105 #### [facility] [address] [place], [address] Neutrophils/100 WBC (Bld) 63.6 % Normal 47-70 [facility] Comment on above: Order Comment: 108.1 Performed By: #### L 100.0100, L500.3400, L501.1105 #### [facility] [address] [place], [address] Nucleated RBC (Bld) [#/Vol] 0 10*3/uL Normal 0-5 [facility] Comment on above: Order Comment: 108.1 Performed By: #### L 100.0100, L500.3400, L501.1105 #### [facility] [address] [place], [address] Platelet mean volume (Bld) [Entitic vol] 9.5 fL Normal 6.2-12.0 [facility] Comment on above: Order Comment: 108.1 Performed By: #### L 100.0100, L500.3400, L501.1105 #### [facility] [address] [place], [address] Platelets (Bld) [#/Vol] 337 10*3/uL Normal 150-450 [facility] Comment on above: Order Comment: 108.1 Performed By: #### L 100.0100, L500.3400, L501.1105 #### [facility] [address] [place], [address] RBC (Bld) [#/Vol] 3.75 10*6/uL Low 4.6-6.[address] [facility] Comment on above: Order Comment: 108.1 Performed By: #### L 100.0100, L500.3400, L501.1105 #### [facility] [address] [place], [address] RDW SD 48.2 fl High 35.1-43.9 [facility] Comment on above: Order Comment: 108.1 Performed By: #### L 100.0100, L500.3400, L501.1105 #### [facility] [address] [place], [address] WBC (Bld) [#/Vol] 7.7 10*3/uL Normal 4.4-11.0 [facility] Comment on above: Order Comment: 108.1 Performed By: #### L 100.0100, L500.3400, L501.1105 #### [facility] [address] [place], [address] Liver Profileon 11-18-2024 Albumin [Mass/Vol] 3.0 g/dL Low 3.4-4.8 [facility] Comment on above: Order Comment: 108.1 Performed By: #### L 100.0100, L500.3400, L501.1105 #### [facility] [address] [place], [address] ALK PHOS 80 U/L Normal 40-129 [facility] Comment on above: Order Comment: 108.1 Performed By: #### L 100.0100, L500.3400, L501.1105 #### [facility] [address] [place], [address] ALT [Catalytic activity/Vol] 7 U/L Normal <=46 [facility] Comment on above: Order Comment: 108.1 Performed By: #### L 100.0100, L500.3400, L501.1105 #### [facility] [address] [place], [address] AST [Catalytic activity/Vol] 13 U/L Normal <=37 [facility] Comment on above: Order Comment: 108.1 Performed By: #### L 100.0100, L500.3400, L501.1105 #### [facility] [address] [place], [address] Bilirubin [Mass/Vol] 0.34 mg/dL Normal 0.00-1.30 [facility] Comment on above: Order Comment: 108.1 Performed By: #### L 100.0100, L500.3400, L501.1105 #### [facility] [address] [place], [address] Bilirubin.direct [Mass/Vol] 0.16 mg/dL Normal 0.00-0.30 [facility] Comment on above: Order Comment: 108.1 Performed By: #### L 100.0100, L500.3400, L501.1105 #### [facility] [address] [place], [address] Globulin (S) [Mass/Vol] 3.0 g/dL Normal 2.2-4.2 [facility] Comment on above: Order Comment: 108.1 Performed By: #### L 100.0100, L500.3400, L501.1105 #### [facility] [address] [place], [address] T PROT 6.0 g/dL Normal 5.9-8.4 [facility] Comment on above: Order Comment: 108.1 Performed By: #### L 100.0100, L500.3400, L501.1105 #### [facility] [address] [place], [address] Serum Creatinine AND GFRon 0 11-18-2024 Creatinine [Mass/Vol] 0.50 mg/dL Low 0.70-1.20 [facility] Comment on above: Order Comment: 108.1 Performed By: #### L 100.0100, L500.3400, L501.1105 #### [facility] [address] [place], [address] GFR/1.73 sq M.predicted among non-blacks MDRD (S/P/Bld) [Vol rate/Area] 108 mL/min/{1.73_m2} Normal >60 [facility] Comment on above: Order Comment: 108.1 Result Comment: mL/m in/1.73m2 CKD-EPI Creatinine Equation (2020) Performed By: #### L 100.0100, L500.3400, L501.1105 #### [facility] [address] [place], [address] REFERRAL FOR ADDITIONAL BIOM ARKER AND MOLECULAR TESTINGon 11-14-2024 REFERRAL FOR ADDITIONAL BIOMARKER AND MOLECULAR TESTING Normal [facility] Comment on above: Order Comment: Speci men Type: TISSUE SPECIMENOrdering Facility: [facility] Address: [address] [place] [address] Result Comment: Requ est has been received for evaluation and the results will be issued separately. Performed By: #### Migel PMOL ####ZULMAGeraldANNALISA [facility] LABCLIA [id number] [place] [address] [place] Bilirubin, Directon 11-12-19 25 Bilirubin.direct [Mass/Vol] 0.15 mg/dL Normal 0.00-0.30 [facility] Comment on above: Order Comment: 108-1 Performed By: #### L 100.0100, L500.4050, L501.4700, L501.9520 #### [facility] [address] [place], [address] CBC W/Diff, Automatedon 10-28 Absolute Lymph 1.87 X10 3/uL Normal 0.83-4.51 [facility] Comment on above: Performed By: #### L 100.0100, L500.4050, L501.4700, L501.9520 #### [facility] [address] [place], [address] Absolute Neut 6.0 X10 3/uL Normal 2.0-7.7 [facility] Comment on above: Performed By: #### L 100.0100, L500.4050, L501.4700, L501.9520 #### [facility] [address] [place], [address] Basophils/100 WBC (Bld) 1.6 % High 0-1 [facility] Comment on above: Performed By: #### L 100.0100, L500.4050, L501.4700, L501.9520 #### [facility] [address] [place], [address] Eosinophils/100 WBC (Bld) 4.5 % Normal 0-5 [facility] Comment on above: Performed By: #### L 100.0100, L500.4050, L501.4700, L501.9520 #### [facility] [address] [place], [address] Erythrocyte distribution width (RBC) [Ratio] 14.6 % Normal 11.6-14.6 [facility] Comment on above: Performed By: #### L 100.0100, L500.4050, L501.4700, L501.9520 #### [facility] [address] [place], [address] Hematocrit (Bld) [Volume fraction] 34.5 % Low 40-54 [facility] Comment on above: Performed By: #### L 100.0100, L500.4050, L501.4700, L501.9520 #### [facility] [address] [place], [address] Hemoglobin (Bld) [Mass/Vol] 10.7 g/dL Low 13.0-16.5 [facility] Comment on above: Performed By: #### L 100.0100, L500.4050, L501.4700, L501.9520 #### [facility] [address] [place], [address] IG% 0.500 Normal 0.0-0.9 [facility] Comment on above: Result Comment: IG% - Immature Granulocytes (promyelocytes, myelocytes and metamyelocytes) > 1% indicates that a LEFT SHIFT is Present. Performed By: #### L 100.0100, L500.4050, L501.4700, L501.9520 #### [facility] [address] [place], [address] Lymphocytes/100 WBC (Bld) 20.3 % Normal 19-41 [facility] Comment on above: Performed By: #### L 100.0100, L500.4050, L501.4700, L501.9520 #### [facility] [address] [place], [address] MCH (RBC) [Entitic mass] 29.5 pg Normal 27.0-32.0 [facility] Comment on above: Performed By: #### L 100.0100, L500.4050, L501.4700, L501.9520 #### [facility] [address] [place], [address] MCHC (RBC) [Mass/Vol] 31.0 g/dL Low 32-36 [facility] Comment on above: Performed By: #### L 100.0100, L500.4050, L501.4700, L501.9520 #### [facility] [address] [place], [address] MCV (RBC) [Entitic vol] 95.0 fL High 80-94 [facility] Comment on above: Performed By: #### L 100.0100, L500.4050, L501.4700, L501.9520 #### [facility] [address] [place], [address] Monocytes/100 WBC (Bld) 7.8 % Normal 0-10 [facility] Comment on above: Performed By: #### L 100.0100, L500.4050, L501.4700, L501.9520 #### [facility] [address] [place], [address] Neutrophils/100 WBC (Bld) 65.3 % Normal 47-70 [facility] Comment on above: Performed By: #### L 100.0100, L500.4050, L501.4700, L501.9520 #### [facility] [address] [place], [address] Nucleated RBC (Bld) [#/Vol] 0 10*3/uL Normal 0-5 [facility] Comment on above: Performed By: #### L 100.0100, L500.4050, L501.4700, L501.9520 #### [facility] [address] [place], [address] Platelet mean volume (Bld) [Entitic vol] 9.2 fL Normal 6.2-12.0 [facility] Comment on above: Performed By: #### L 100.0100, L500.4050, L501.4700, L501.9520 #### [facility] [address] [place], [address] Platelets (Bld) [#/Vol] 443 10*3/uL Normal 150-450 [facility] Comment on above: Performed By: #### L 100.0100, L500.4050, L501.4700, L501.9520 #### [facility] [address] [place], [address] RBC (Bld) [#/Vol] 3.63 10*6/uL Low 4.6-6.[address] [facility] Comment on above: Performed By: #### L 100.0100, L500.4050, L501.4700, L501.9520 #### [facility] [address] [place], [address] RDW SD 51.3 fl High 35.1-43.9 [facility] Comment on above: Performed By: #### L 100.0100, L500.4050, L501.4700, L501.9520 #### [facility] [address] [place], [address] WBC (Bld) [#/Vol] 9.2 10*3/uL Normal 4.4-11.0 [facility] Comment on above: Performed By: #### L 100.0100, L500.4050, L501.4700, L501.9520 #### [facility] [address] [place], [address] Comprehensive Metabolic Prof ilon 11-11-2024 Albumin [Mass/Vol] 3.0 g/dL Low 3.4-4.8 [facility] Comment on above: Order Comment: 108-1 Performed By: #### L 100.0100, L500.4050, L501.4700, L501.9520 #### [facility] [address] [place], [address] Albumin/Globulin [Mass ratio] 0.9 {ratio} Normal 0.9-2.4 [facility] Comment on above: Order Comment: 108-1 Performed By: #### L 100.0100, L500.4050, L501.4700, L501.9520 #### [facility] [address] [place], [address] ALK PHOS 81 U/L Normal 40-129 [facility] Comment on above: Order Comment: 108-1 Performed By: #### L 100.0100, L500.4050, L501.4700, L501.9520 #### [facility] [address] [place], [address] ALT [Catalytic activity/Vol] 11 U/L Normal <=46 [facility] Comment on above: Order Comment: 108-1 Performed By: #### L 100.0100, L500.4050, L501.4700, L501.9520 #### [facility] [address] [place], [address] AST [Catalytic activity/Vol] 14 U/L Normal <=37 [facility] Comment on above: Order Comment: 108-1 Performed By: #### L 100.0100, L500.4050, L501.4700, L501.9520 #### [facility] [address] [place], [address] Bilirubin [Mass/Vol] 0.33 mg/dL Normal 0.00-1.30 [facility] Comment on above: Order Comment: 108-1 Performed By: #### L 100.0100, L500.4050, L501.4700, L501.9520 #### [facility] [address] [place], [address] BUN/CRE 10.5 RATIO Normal 10-20 [facility] Comment on above: Order Comment: 108-1 Performed By: #### L 100.0100, L500.4050, L501.4700, L501.9520 #### [facility] [address] [place], [address] Calcium [Mass/Vol] 9.0 mg/dL Normal 7.6-11.0 [facility] Comment on above: Order Comment: 108-1 Performed By: #### L 100.0100, L500.4050, L501.4700, L501.9520 #### [facility] [address] [place], [address] Chloride [Moles/Vol] 108 mmol/L Normal 98-108 [facility] Comment on above: Order Comment: 108-1 Performed By: #### L 100.0100, L500.4050, L501.4700, L501.9520 #### [facility] [address] [place], [address] CO2 [Moles/Vol] 24.0 mmol/L Normal 21.0-32.0 [facility] Comment on above: Order Comment: 108-1 Performed By: #### L 100.0100, L500.4050, L501.4700, L501.9520 #### [facility] [address] [place], [address] Creatinine [Mass/Vol] 0.57 mg/dL Low 0.70-1.20 [facility] Comment on above: Order Comment: 108-1 Performed By: #### L 100.0100, L500.4050, L501.4700, L501.9520 #### [facility] [address] [place], [address] GAP 11 Normal 5-15 [facility] Comment on above: Order Comment: 108-1 Performed By: #### L 100.0100, L500.4050, L501.4700, L501.9520 #### [facility] [address] [place], [address] GFR/1.73 sq M.predicted among non-blacks MDRD (S/P/Bld) [Vol rate/Area] 104 mL/min/{1.73_m2} Normal >60 [facility] Comment on above: Order Comment: 108-1 Result Comment: mL/m in/1.73m2 CKD-EPI Creatinine Equation (2020) Performed By: #### L 100.0100, L500.4050, L501.4700, L501.9520 #### [facility] [address] [place], [address] Globulin (S) [Mass/Vol] 3.2 g/dL Normal 2.2-4.2 [facility] Comment on above: Order Comment: 108-1 Performed By: #### L 100.0100, L500.4050, L501.4700, L501.9520 #### [facility] [address] [place], [address] Glucose [Mass/Vol] 95 mg/dL Normal 70-99 [facility] Comment on above: Order Comment: 108-1 Performed By: #### L 100.0100, L500.4050, L501.4700, L501.9520 #### [facility] [address] [place], [address] Potassium [Moles/Vol] 3.6 mmol/L Normal 3.3-5.1 [facility] Comment on above: Order Comment: 108-1 Performed By: #### L 100.0100, L500.4050, L501.4700, L501.9520 #### [facility] [address] [place], [address] Sodium [Moles/Vol] 143 mmol/L Normal 133-145 [facility] Comment on above: Order Comment: 108-1 Performed By: #### L 100.0100, L500.4050, L501.4700, L501.9520 #### [facility] [address] [place], [address] T PROT 6.2 g/dL Normal 5.9-8.4 [facility] Comment on above: Order Comment: 108-1 Performed By: #### L 100.0100, L500.4050, L501.4700, L501.9520 #### [facility] [address] [place], [address] Urea nitrogen [Mass/Vol] 6 mg/dL Normal - [facility] Comment on above: Order Comment: 108-1 Performed By: #### L 100.0100, L500.4050, L501.4700, L501.9520 #### [facility] [address] [place], [address] Thyroid Stim Hormone (TSH)on 11-11-2024 TSH 0.043 uIU/mL Low 0.300-4.200 [facility] Comment on above: Order Comment: 108-1 Performed By: #### L 100.0100, L500.4050, L501.4700, L501.9520 #### [facility] [address] [place], [address] Basic metabolic 2000 panelon 11-05-2024 Anion gap [Moles/Vol] 10 mmol/L Normal 10-11 [facility] Comment on above: Order Comment: Speci men Type: BLOOD SPECIMEN Ordering Facility: [facility] Address: [address] [place] [address] Performed By: #### 2 4321-2, 43549-1, 74207-3, 2276-4 #### [facility] CLIA [id number] [address] [place] [address] [place] Calcium [Mass/Vol] 8.4 mg/dL Low 8.5-10.2 [facility] Comment on above: Order Comment: Speci men Type: BLOOD SPECIMEN Ordering Facility: [facility] Address: [address] [place] [address] Performed By: #### 2 4321-2, 38912-9, 39731-9, 2275-4 #### [facility] CLIA [id number] [address] [place] [address] [place] Chloride [Moles/Vol] 107 mmol/L Normal 98-107 [facility] Comment on above: Order Comment: Speci men Type: BLOOD SPECIMEN Ordering Facility: [facility] Address: [address] [place] [address] Performed By: #### 2 4321-2, 10170-1, 47157-3, 2275-4 #### [facility] CLIA [id number] [address] [place] [address] [place] CO2 [Moles/Vol] 24 mmol/L Normal 22-30 [facility] Comment on above: Order Comment: Speci men Type: BLOOD SPECIMEN Ordering Facility: [facility] Address: [address] [place] [address] Performed By: #### 2 4321-2, 12544-6, 29521-8, 2275-4 #### [facility] CLIA [id number] [address] [place] [address] [place] Creatinine [Mass/Vol] 0.60 mg/dL Low 0.73-1.22 [facility] Comment on above: Order Comment: Speci men Type: BLOOD SPECIMEN Ordering Facility: [facility] Address: [address] [place] [address] Performed By: #### 2 4321-2, 61602-8, 94801-5, 2275-4 #### [facility] CLIA [id number] [address] [place] eGFRcr SerPlBld CKD-EPI 2020 103 mL/min/1.73m??? Normal >=60 [facility] Comment on above: Order Comment: Speci men Type: BLOOD SPECIMEN Ordering Facility: [facility] Address: [address] [place] [address] Result Comment: Karon mated Glomerular Filtration Rate (eGFR) is calculated using the 2020 CKD-EPI creatinine equation. This equation utilizes serum creatinine, sex, and age as parameters. The creatinine assay has traceable calibration to isotope dilution-mass spectrometry. Refer to KDIGO guidelines for clinical interpretation. In patients with unstable renal function, e.g. those with acute kidney injury, the eGFR may not accurately reflect actual GFR. Performed By: #### 2 4321-2, 94777-9, 79689-8, 2275-4 #### [facility] CLIA [id number] [address] [place] [address] [place] Glucose [Mass/Vol] 109 mg/dL High 74-99 [facility] Comment on above: Order Comment: Rody adams Type: BLOOD SPECIMEN Ordering Facility: [facility] Address: [address] [place] [address] Result Comment: The [place] [employer] (ADA) provides guidance for cutoff [...] Standards of Medical Care in Diabetes 2016, [place] [employer]. Diabetes Care. 2016.39(Suppl 1). Performed By: #### 2 4321-2, 50213-6, 43081-6, 2275-4 #### [facility] CLIA [id number] [address] [place] [address] [place] Potassium [Moles/Vol] 3.3 mmol/L Low 3.7-5.1 [facility] Comment on above: Order Comment: Rody adams Type: BLOOD SPECIMEN Ordering Facility: [facility] Address: [address] [id number] Performed By: #### 2 4321-2, 94030-3, 18189-4, 2275-4 #### [facility] CLIA [id number] [address] STATES [facility] Sodium [Moles/Vol] 141 mmol/L Normal 136-144 [facility] Comment on above: Order Comment: Speci men Type: BLOOD SPECIMEN Ordering Facility: [facility] Address: [address] [place] [address] Performed By: #### 2 4321-2, 92455-3, 06223-6, 2275-4 #### [facility] CLIA [id number] [address] [place] Urea nitrogen [Mass/Vol] 8 mg/dL Low 9-24 [facility] Comment on above: Order Comment: Speci men Type: BLOOD SPECIMEN Ordering Facility: [facility] Address: [address] [place] [address] Performed By: #### 2 4321-2, 63690-9, 53721-2, 2275-4 #### [facility] CLIA [id number] [address] CBC panel Auto (Bld)on 11-05 Erythrocyte distribution width (RBC) [Ratio] 14.6 % Normal 11.5-15.0 [facility] Comment on above: Order Comment: Speci men Type: BLOOD SPECIMEN Ordering Facility: [facility] Address: [address] [place] [address] Performed By: #### 2 4321-2, 26702-7, 97513-8, 2275-4 #### [facility] CLIA [id number] [address] OF [facility] Hematocrit (Bld) [Volume fraction] 33.8 % Low 39.0-51.0 [facility] Comment on above: Order Comment: Speci men Type: BLOOD SPECIMEN Ordering Facility: [facility] Address: [address] [place] [address] Performed By: #### 2 4321-2, 35200-7, 98595-7, 2275-4 #### [facility] CLIA [id number] [address] Hemoglobin (Bld) [Mass/Vol] 10.8 g/dL Low 13.0-17.0 [facility] Comment on above: Order Comment: Speci men Type: BLOOD SPECIMEN Ordering Facility: [facility] Address: [address] [place] [address] Performed By: #### 2 4321-2, 66121-2, 49633-6, 2275-05 #### [facility] CLIA [id number] [address] MCH (RBC) [Entitic mass] 29.8 pg Normal 26.0-34.0 [facility] Comment on above: Order Comment: Speci men Type: BLOOD SPECIMEN Ordering Facility: [facility] Address: [address] [place] [address] Performed By: #### 2 4321-2, 06845-6, 31641-3, 2275-05 #### [facility] CLIA [id number] [address] MCHC (RBC) [Mass/Vol] 32.0 g/dL Normal 30.5-36.0 [facility] Comment on above: Order Comment: Speci men Type: BLOOD SPECIMEN Ordering Facility: [facility] Address: [address] [place] [address] Performed By: #### 2 4321-2, 04314-8, , 2275-05 #### [facility] CLIA [id number] [address] STATES [facility] MCV (RBC) [Entitic vol] 93.4 fL Normal 80.0-100.0 [facility] Comment on above: Order Comment: Speci men Type: BLOOD SPECIMEN Ordering Facility: [facility] Address: [address] [place] [address] Performed By: #### 2 4321-2, 66852-0, , 2275-05 #### [facility] CLIA [id number] [address] Nucleated RBC (Bld) [#/Vol] 10*3/uL Normal <0.01 [facility] Comment on above: Order Comment: Speci men Type: BLOOD SPECIMEN Ordering Facility: [facility] Address: [address] [place], [place] [address] Performed By: #### 2 4321-2, 13248-6, 90706-6, 2275-4 #### [facility] CLIA [id number] [address] [place] [address] [place] Platelet mean volume (Bld) [Entitic vol] 8.6 fL Low 9.0-12.7 [facility] Comment on above: Order Comment: Speci men Type: BLOOD SPECIMEN Ordering Facility: [facility] Address: [address] [place] [address] Performed By: #### 2 4321-2, 56532-1, 65775-7, 2275-4 #### [facility] CLIA [id number] [address] [place] Platelets (Bld) [#/Vol] 410 10*3/uL High 150-400 [facility] Comment on above: Order Comment: Speci men Type: BLOOD SPECIMEN Ordering Facility: [facility] Address: [address] [place] [address] Performed By: #### 2 4321-2, 12571-2, 67136-9, 2275-4 #### [facility] CLIA [id number] [address] [place] [address] [place] RBC (Bld) [#/Vol] 3.62 10*6/uL Low 4.20-6.00 [facility] Comment on above: Order Comment: Speci men Type: BLOOD SPECIMEN Ordering Facility: [facility] Address: [address] [place], [place] [address] Performed By: #### 2 4321-2, 40144-2, 08479-7, 2275-4 #### [facility] CLIA [id number] [address] [place] WBC (Bld) [#/Vol] 9.62 10*3/uL Normal 3.70-11.00 [facility] Comment on above: Order Comment: Speci men Type: BLOOD SPECIMEN Ordering Facility: [facility] Address: [address] [place] [address] Performed By: #### 2 4321-2, 73009-1, 29608-9, 2276-4 #### [facility] CLIA [id number] [address] [place] [address] [address] [facility] CNDSon 11-05-2024 CNDS HNO ID: [id number] Author: PATRICIA SLOAN MD Service: Hospital Medicine Author Type: Physician Type: Discharge Summary Filed: 11/05/2024 12:17 Note Text: DISCHARGE SUMMARY PATIENT NAME: Stevie Sanchez Code Status: Prior Highest Readmission Risk Score: [...] Consulting: Kurt Pereira MD Primary Service: , [facility] Consulting: Kevin Patterson MD MY CONDITION AT DISCHARGE: Stable REASON [...] in your lung. You were sent to [facility] and underwent bronchoscopy. You were treated with IV antibiotics. The results from the bronchoscopy showed concern for cancer reoccurrence. You should follow-up with oncology as outpatient. 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 Showed right upper lobe cavity [...] was continued on IV vancomycin and Zosyn. (more content not included)... Normal [facility] CONSULT PROGon 11-05-2024 CONSULT PROG HNO ID: [id number] Author: KURT PEREIRA MD Service: Infectious Disease Author Type: Physician Type: Consult Progress Note Filed: 11/05/2024 22:15 Note Text: INFECTIOUS DISEASE PROGRESS NOTE Patient Name: Stevie Sanchez INTERVAL HISTORY: PICC line placed Afebrile No [...] Folate deficiency Date Noted: 11/01/2024 ASSESSMENT: Stevie Sanchez is a 74 year old male with tachycardia and leukocytosis, CT of the chest revealed thick-walled right upper lobe cavitary mass is noted with an associated air-fluid level. Differential includes primary lung abscess, could potentially be from aspiration and poor dentition versus malignancy. Plan: BAL cultures w E coli Suspect superinfected cavitary mass which could have been malignant. Plan on performing bronchoscopy/EBUS at [facility] on 10/29. Continue unasyn Negative Legionella and [...] 1527 Peripherally Inserted (PICC) Right Arm 4.0 Eritrean <1 day Drain Duration External Collection Device 10/24/24 2300 11 days Labs: reviewed Microbiology data: reviewed Imaging data: reviewed Evelia Fuchs, ELVIRA [phone] 11/05/2024 6:44 AM I personally saw and evaluated the patient. I reviewed the INSPECTOR CASING Hx, exam and MDM and I agree with the INSPECTOR CASING assessment and plan unless otherwise addended above. Kurt Pereira MD [phone] 11/05/2024 12:13 PM [facility] CONSULT PROGon 11-04-2024 CONSULT PROG HNO ID: [id number] Author: KURT PEREIRA MD Service: Infectious Disease Author Type: Physician Type: Consult Progress Note Filed: 11/04/2024 17:13 Note Text: INFECTIOUS DISEASE PROGRESS NOTE Patient Name: Stevie Sanchez INTERVAL HISTORY: Afebrile Breathing improved Patient Active [...] Folate deficiency Date Noted: 11/01/2024 ASSESSMENT: Stevie Sanchez is a 74 year old male with tachycardia and leukocytosis, CT of the chest revealed thick-walled right upper lobe cavitary mass is noted with an associated air-fluid level. Differential includes primary lung abscess, could potentially be from aspiration and poor dentition versus malignancy. Plan: BAL cultures w E coli Suspect superinfected cavitary mass which could have been malignant. Plan on performing bronchoscopy/EBUS at [facility] on 10/29. Continue unasyn Negative Legionella and [...] Microbiology data: reviewed Imaging data: reviewed Evelia Fuchs CNP [phone] 11/04/2024 10:33 AM I personally saw and evaluated the patient. I reviewed the INSPECTOR CASING Hx, exam and MDM and I agree with the INSPECTOR CASING assessment and plan unless otherwise addended above. Kurt Pereira MD [phone] 11/04/2024 5:12 PM Normal [facility] NURSING PROGon 11-04-2024 NURSING PROG HNO ID: [id number] Author: ALETHA BURROWS RN Service: PICC Team [...] Signed By: Aletha Burrows RN In Department: [facility] THERAPY NTon 11-04-2024 THERAPY NT HNO ID: [id number] Author: ALEX LEWIS OTR/Umberto Service: Occupational Therapy Author Type: Occupational Therapist Type: Therapy (PT/OT/Speech/Resp) Filed: 11/04/2024 11:35 Note Text: -- Summary: OT precert note -- Occupational Therapy Treatment Summary SERVICE DATE: 11/04/2024 SERVICE TIME: 1110 to 1128 ROOM: UB-3O-1316- OT 6 Clicks Score: 19 DISCHARGE RECOMMENDATIONS [...] + driving SUBJECTIVE Patient supine in bed [place] agreeable to OT COGNITION Responsiveness: Alert, Awake Follows Commands: Cueing Needed Cueing to Follow Commands: Minimum THERAPY DIAGNOSIS Reduced mobility-other, Decreased activities of daily living (ADL), Unsteadiness on feet, General symptoms and signs-other TREATMENT INTERVENTIONS Self Long-Term Management (88396) Timed Code Treatment (minutes): 18 TRAINING AND [...] Next Visit: Continue per POC SIGNATURE: Alex Lewis OTR/L PATIENT NAME: Stevie Sanchez DATE: November 04, 2024 TIME: 11:35 AM [facility] XR CHEST 1V PORT POST PICC - NBon 11-04-2024 XR CHEST 1V PORT POST PICC -NB * * *Final Report* * * DATE [...] the stomach is suspected. IMPRESSION: See result. Quantitative Equity Head: PSCB Transcribe Date/Time: Nov 04 2024 3:42P Dictated by : DON DÍAZ MD This examination was interpreted and the report reviewed and electronically signed by: DON DÍAZ MD on Nov 04 2024 3:43PM EST [id number] [facility] CONSULT PROGon 11-03-2024 CONSULT PROG HNO ID: [id number] Author: KURT PEREIRA MD Service: Infectious Disease Author Type: Physician Type: Consult Progress Note Filed: 11/03/2024 22:03 Note Text: INFECTIOUS DISEASE PROGRESS NOTE Patient Name: Stevie Sanchez INTERVAL HISTORY: Had BAL and cultures positive [...] Folate deficiency Date Noted: 11/01/2024 ASSESSMENT: Stevie Sanchez is a 74 year old male with tachycardia and leukocytosis, CT of the chest revealed thick-walled right upper lobe cavitary mass is noted with an associated air-fluid level. Differential includes primary lung abscess, could potentially be from aspiration and poor dentition versus malignancy. Plan: BAL cultures w E coli Suspect superinfected cavitary mass which could have been malignant. Plan on performing bronchoscopy/EBUS at [facility] on 10/29. Continue unasyn Negative Legionella and [...] reviewed Imaging data: reviewed Kurt Pereira MD [phone] 11/03/2024 10:33 AM Normal [facility] CBC panel Auto (Bld)on 11-02 Erythrocyte distribution width (RBC) [Ratio] 14.6 % Normal 11.5-15.0 [facility] Comment on above: Order Comment: Speci men Type: BLOOD SPECIMENOrdering Facility: [facility] Address: [address] [place] [address] Performed By: #### 5 8410-2 ####[facility]ORYCLIA [id number] [address] Hematocrit (Bld) [Volume fraction] 35.1 % Low 39.0-51.0 [facility] Comment on above: Order Comment: Speci men Type: BLOOD SPECIMENOrdering Facility: [facility] Address: [address] [place] [address] Performed By: #### 5 8410-2 ####[facility]ORATORYCLIA [id number] [address] [place] Hemoglobin (Bld) [Mass/Vol] 10.9 g/dL Low 13.0-17.0 [facility] Comment on above: Order Comment: Speci men Type: BLOOD SPECIMENOrdering Facility: [facility] Address: [address] [place] [address] Performed By: #### 5 8410-2 ####[facility]ORATORYCLIA [id number] [address] MCH (RBC) [Entitic mass] 30.0 pg Normal 26.0-34.0 [facility] Comment on above: Order Comment: Speci men Type: BLOOD SPECIMENOrdering Facility: [facility] Address: [address] [place] [address] Performed By: #### 5 8410-2 ####[facility]ORATORYCLIA [id number] [address] MCHC (RBC) [Mass/Vol] 31.1 g/dL Normal 30.5-36.0 [facility] Comment on above: Order Comment: Speci men Type: BLOOD SPECIMENOrdering Facility: [facility] Address: [address] [place] [address] Performed By: #### 5 8410-2 ####[facility]ORATORYCLIA [id number] [address] MCV (RBC) [Entitic vol] 96.7 fL Normal 80.0-100.0 [facility] Comment on above: Order Comment: Speci men Type: BLOOD SPECIMENOrdering Facility: [facility] Address: [address] [place] [address] Performed By: #### 5 8410-2 ####[facility]ATORYCLIA [id number] [address] Nucleated RBC (Bld) [#/Vol] 10*3/uL Normal <0.01 [facility] Comment on above: Order Comment: Speci men Type: BLOOD SPECIMENOrdering Facility: [facility] Address: [address] [place] [address] Performed By: #### 5 8410-2 ####[facility]ORATORYCLIA [id number] [address] [place] Platelet mean volume (Bld) [Entitic vol] 8.9 fL Low 9.0-12.7 [facility] Comment on above: Order Comment: Speci men Type: BLOOD SPECIMENOrdering Facility: [facility] Address: [address] [place] [address] Performed By: #### 5 8410-2 ####[facility]ORATORYCLIA [id number] [address] Platelets (Bld) [#/Vol] 392 10*3/uL Normal 150-400 [facility] Comment on above: Order Comment: Speci men Type: BLOOD SPECIMENOrdering Facility: [facility] Address: [address] [place] [address] Performed By: #### 5 8410-2 ####[facility] LABORATORYCLIA [id number] [address] [place] RBC (Bld) [#/Vol] 3.63 10*6/uL Low 4.20-6.00 [facility] Comment on above: Order Comment: Speci men Type: BLOOD SPECIMENOrdering Facility: [facility] Address: [address] [place], [place] [address] Performed By: #### 5 8410-2 ####[facility]ORATORYCLIA [id number] [address] WBC (Bld) [#/Vol] 8.77 10*3/uL Normal 3.70-11.00 [facility] Comment on above: Order Comment: Speci men Type: BLOOD SPECIMENOrdering Facility: [facility] Address: [address] [place], [place] [address] Performed By: #### 5 8410-2 ####[facility]ORATORYCLIA [id number] [address] CONSULT PROGon 11-02-2024 CONSULT PROG HNO ID: [id number] Author: APRYL GUERRERO RPh Service: Pharmacy Author Type: Pharmacist Type: Consult Progress Note Filed: 11/02/2024 13:01 Note Text: PHARMACY IV to PO ASSESSMENT Patient Name: Stevie Sanchez Admission Date: 10/24/2024 Date of Consult: 11/02/2024 Time of Consult: 1:01 PM In accordance with the inpatient pharmacy and therapeutics policy the following medication changes have been made: folic acid 1 mg IV q24h converted to folic acid 1 mg PO q24h, per IV to PO guidelines. Signature: Apryl Guerrero RPh November 02, 2024 1:01 PM Date/Time: 11/02/2024 1:01 PM Normal [facility] CONSULT PROG HNO ID: [id number] Author: KURT PEREIRA MD Service: Infectious Disease Author Type: Physician Type: Consult Progress Note Filed: 11/03/2024 22:03 Note Text: INFECTIOUS DISEASE PROGRESS NOTE Patient Name: Stevie Sanchez INTERVAL HISTORY: Had BAL and cultures positive [...] Folate deficiency Date Noted: 11/01/2024 ASSESSMENT: Stevie Sanchez is a 74 year old male with tachycardia and leukocytosis, CT of the chest revealed thick-walled right upper lobe cavitary mass is noted with an associated air-fluid level. Differential includes primary lung abscess, could potentially be from aspiration and poor dentition versus malignancy. Plan: BAL cultures w E coli Suspect superinfected cavitary mass which could have been malignant. Plan on performing bronchoscopy/EBUS at [facility] on 10/29. Continue unasyn Negative Legionella and [...] reviewed Imaging data: reviewed Kurt Pereira MD [phone] 11/02/2024 10:33 AM Normal [facility] Magnesium SerPl-mCncon 11-02 Magnesium [Mass/Vol] 1.9 mg/dL Normal 1.7-2.3 [facility] Comment on above: Order Comment: Speci men Type: BLOOD SPECIMEN [facility]ing Facility: [facility] Address: [address] [place] [address] Performed By: #### 2 4321-2, 45487-6, 70310-0, 2275-4 #### [facility] CLIA [id number] [address] OF [facility] OCCULT BLD EXAM-DIAGon 11-02 OCCULT BLD EXAM-DIAG Negative Normal [facility] Comment on above: Performed By: #### O BDX ####[facility]ORATORYCLIA [id number] [address] OF [facility] Renal function 2000 panelon 11-02-2024 Albumin [Mass/Vol] 2.6 g/dL Low 3.9-4.9 [facility] Comment on above: Order Comment: Speci men Type: BLOOD SPECIMEN [facility] Facility: [facility] Address: [address] [place] [address] Performed By: #### 2 4321-2, 70619-1, 22130-7, 2275-4 #### [facility] CLIA [id number] [address] [place] [address] [place] Anion gap [Moles/Vol] 7 mmol/L Low 8-15 [facility] Comment on above: Order Comment: Speci men Type: BLOOD SPECIMEN [facility]ing Facility: [facility] Address: [address] [place] [address] Performed By: #### 2 4321-2, 90626-0, 01531-7, 2275-4 #### [facility] CLIA [id number] [address] [place] [address] [place] Calcium [Mass/Vol] 8.5 mg/dL Normal 8.5-10.2 [facility] Comment on above: Order Comment: Speci men Type: BLOOD SPECIMEN [facility]ing Facility: [facility] Address: [address] [place] [address] Performed By: #### 2 4321-2, 52685-5, 91278-9, 2275-4 #### [facility] CLIA [id number] [address] [place] [address] [place] Chloride [Moles/Vol] 104 mmol/L Normal 98-107 [facility] Comment on above: Order Comment: Speci men Type: BLOOD SPECIMEN [facility] Address: [address] [place] [address] Performed By: #### 2 4321-2, 04024-0, 90956-7, 2275- #### [facility] CLIA [id number] [address] [place] CO2 [Moles/Vol] 29 mmol/L Normal 22-30 [facility] Comment on above: Order Comment: Speci men Type: BLOOD SPECIMEN [facility] Facility: [facility] Address: [address] [place] [address] Performed By: #### 2 4321-2, 93967-4, , 2275-05 #### [facility] CLIA [id number] [address] STATES OF [facility] Creatinine [Mass/Vol] 0.65 mg/dL Low 0.73-1.22 [facility] Comment on above: Order Comment: Speci men Type: BLOOD SPECIMEN [facility]: [facility] Address: [address] [place] [address] Performed By: #### 2 4321-2, 15189-7, , 2275-05 #### [facility] CLIA [id number] [address] eGFRcr SerPlBld CKD-EPI 2020 100 mL/min/1.73m??? Normal >=60 [facility] Comment on above: Order Comment: Speci men Type: BLOOD SPECIMEN [facility]ing Facility: [facility] Address: [address] [place] [address] Result Comment: Karon mated Glomerular Filtration Rate (eGFR) is calculated using the 2020 CKD-EPI creatinine equation. This equation utilizes serum creatinine, sex, and age as parameters. The creatinine assay has traceable calibration to isotope dilution-mass spectrometry. Refer to KDIGO guidelines for clinical interpretation. In patients with unstable renal function, e.g. those with acute kidney injury, the eGFR may not accurately reflect actual GFR. Performed By: #### 2 4321-2, 93112-8, 90578-8, 2275-4 #### [facility] CLIA [id number] [address] [place] [address] [place] Glucose [Mass/Vol] 107 mg/dL High 74-99 [facility] Comment on above: Order Comment: Rody adams Type: BLOOD SPECIMEN Order[facility] Facility: [facility] Address: [address] [place], [place] [address] Result Comment: The [place] Diabetes Association (ADA) provides guidance for cutoff [...] Standards of Medical Care in Diabetes 2016, [place] [employer]. Diabetes Care. 2016.39(Suppl 1). Performed By: #### 2 4321-2, 19646-3, 39529-3, 2275-4 #### [facility] CLIA [id number] [address] [place] [address] [place] Phosphate [Mass/Vol] 2.7 mg/dL Normal 2.7-4.8 [facility] Comment on above: Order Comment: Rody adams Type: BLOOD SPECIMEN Ordering Facility: [facility] Address: [address] [place], [place] [address] Performed By: #### 2 4321-2, 56494-8, 14740-0, 2275-4 #### [facility] CLIA [id number] [address] [place] [address] [place] Potassium [Moles/Vol] 4.0 mmol/L Normal 3.7-5.1 [facility] Comment on above: Order Comment: Rody adams Type: BLOOD SPECIMEN Ordering Facility: [facility] Address: [address] [place], [place] [address] Performed By: #### 2 4321-2, 46996-9, 77989-4, 2275-4 #### [facility] CLIA [id number] [address] STATES OF [facility] Sodium [Moles/Vol] 140 mmol/L Normal 136-144 [facility] Comment on above: Order Comment: Vadimjoon adams Type: BLOOD SPECIMEN Ordering Facility: [facility] Address: [address] [place], [place] [address] Performed By: #### 2 4321-2, 56357-5, 56369-2, 6-4 #### [facility] CLIA [id number] [address] [place] Urea nitrogen [Mass/Vol] 9 mg/dL Normal 9-24 [facility] Comment on above: Order Comment: Rody bryan Type: BLOOD SPECIMEN [facility] Facility: [facility] Address: [address] [place] [address] Performed By: #### 2 4321-2, 78189-6, 43871-0, 6-4 #### [facility] CLIA [id number] [address] THERAPY NTon 11-02-2024 THERAPY NT HNO ID: [id number] Author: EVELYN PEARCE PT Service: Physical Therapy Author Type: Physical Therapist Type: Therapy (PT/OT/Speech/Resp) Filed: 11/02/2024 15:12 Note Text: -- Summary: PT evaluation -- Physical Therapy Evaluation Summary SERVICE DATE: 11/02/2024 SERVICE TIME: 1409 to 1439 ROOM: [place] [address] PT 6 Clicks Score: 17 DISCHARGE RECOMMENDATIONS [...] A for amb with FWW. unsafe. patient [place] and has a difficult time with cues. [...] consulted, plan for bronchoscopy and biopsy at [facility] 10/29 Relevant Past Medical History: HTN, HLD, [...] Reduced mobility-other TREATMENT INTERVENTIONS Evaluation, Therapeutic Activity (62239), Gait Training (24433) Timed Code Treatment (minutes): 15 Skilled Treatment Time (minutes): 30 $ Evaluation-Low (86661) Billed Units: 1 unit Therapeutic Activity (08607) Treatment Minutes: 10 $ Therapeutic Activity (54247) Billed Units: 1 unit Gait Training (57279) Treatment Minutes: 5 $ Gait Training (92288) Billed Units: 0 units Range of Motion: WFL Except, ROM Limitation Comments ROM Limitation Comments: right ankle DF to neutral Strength: WFL Except, Strength Limitation Comments Strength Limitation Comments: patient not able to follow commands for MMT due to very [place]. grossly at least 3-/5 per clinical judgement [...] Transfers Sit To Stand: Moderate Assistance, Additional In (more content not included)... [facility] CONSULT PROGon 11-01-2024 CONSULT PROG HNO ID: [id number] Author: KURT PEREIRA MD Service: Infectious Disease Author Type: Physician Type: Consult Progress Note Filed: 11/01/2024 22:34 Note Text: INFECTIOUS DISEASE PROGRESS NOTE Patient Name: Stevie Sanchez INTERVAL HISTORY: Had BAL and cultures positive [...] Folate deficiency Date Noted: 11/01/2024 ASSESSMENT: Stevie Sanchez is a 74 year old male with tachycardia and leukocytosis, CT of the chest revealed thick-walled right upper lobe cavitary mass is noted with an associated air-fluid level. Differential includes primary lung abscess, could potentially be from aspiration and poor dentition versus malignancy. Plan: BAL cultures w E coli Suspect superinfected cavitary mass which could have been malignant. Plan on performing bronchoscopy/EBUS at [facility] on 10/29. Stop piperacillin tazobactam and can [...] reviewed Imaging data: reviewed Kurt Pereira MD [phone] 11/01/2024 10:33 AM Normal [facility] Folate SerPl-mCncon 11-02-19 25 Folate [Mass/Vol] 2.8 ng/mL Low >4.7 [facility] Comment on above: Order Comment: Speci men Type: BLOOD SPECIMENOrdering Facility: [facility] Address: [address] [place] [address] Performed By: #### 2 132-9, 2284-8 ####[facility]ORATORYCLIA [id number] [place], [place] [address] [place] [address] OF [facility] NUTRITIONon 11-01-2024 NUTRITION HNO ID: [id number] Author: CRISTOPHER PAREDES RD Service: Nutrition Therapy Author Type: Registered [...] Ordered 10/29/24 1800 DIET REGULAR START NOW 10/29/24 1755 Anthropometrics: Body mass index is 23.25 kg/m?. MNT Billing: $ Routine Care : 1 unit SIGNATURE: Cristopher Paredes RD PATIENT NAME: Stevie Sanchez DATE: November 01, 2024 TIME: 12:28 PM Normal [facility] Vit B12 SerPl-mCncon 025 Cobalamin (Vitamin B12) [Mass/Vol] 468 pg/mL Normal 232-1245 [facility] Comment on above: Order Comment: Speci men Type: BLOOD SPECIMENOrdering Facility: [facility] Address: [address] [place] [address] Performed By: #### 2 132-9, 2284-8 ####[facility]ATORYCLIA [id number] [address] OF [facility] CONSULTon 10-31-2024 CONSULT HNO ID: [id number] Author: RADHA GARCÍA APRN.CNP Service: Hematology/Oncology Author Type: Nurse Practitioner Type: Consults Filed: 11/01/2024 12:40 Note Text: -- Attestation signed by Kevin Patterson MD at 11/01/2024 2:20 PM Attending Note [...] Other additions or changes: None Signature: Kevin Patterson MD Date: 11/01/2024 Time: 2:19 PM -- HEMATOLOGY/ONCOLOGY INITIAL CONSULT NOTE SERVICE DATE: 10/31/2024 REASON FOR CONSULT: Recurrent lung cancer REQUESTING PHYSICIAN: Syed Quiroz MD PRIMARY CARE PHYSICIAN: Praful Su MD Subjective Mr. Sanchez is a 74 year old male with [...] evidence of recurrent disease, follows with Dr. Patterson) who presented to ED on 10/24/2024 for [...] may be reactive. Patient was admitted to [facility] for further work-up and management and hematology oncology has been consulted for recurrent lung cancer. PAST MEDICAL HISTORY Diagnosis Date Abdominal aortic aneurysm without rupture Elevated PSA Hearing loss HTN (hypertension) Lumbosacral neuritis Malignant neoplasm of prostate (HCC) Other and unspecified hyperlipidemia Prostate cancer (HCC) 2020 xrt at [facility] [place] Smoker former quit 2021 Spinal stenosis of [...] PHYSICAL EXAM: GENERAL: No acute distress. [place]. [place] HEENT: Normocephalic, atraumatic. Normal conjunctiva, no scleral icterus. No mouth sores or thrush. LUNGS: Normal respiratory effort. Clear t (more content not included)... Normal [facility] CONSULT PROGon 10-31-2024 CONSULT PROG HNO ID: [id number] Author: KURT PEREIRA MD Service: Infectious Disease Author Type: Physician Type: Consult Progress Note Filed: 10/31/2024 20:46 Note Text: INFECTIOUS DISEASE PROGRESS NOTE Patient Name: Stevie Sanchez INTERVAL HISTORY: Had BAL and cultures positive [...] 10/25/2024 Ex-smoker Date Noted: 10/25/2024 ASSESSMENT: Stevie Sanchez is a 74 year old male with tachycardia and leukocytosis, CT of the chest revealed thick-walled right upper lobe cavitary mass is noted with an associated air-fluid level. Differential includes primary lung abscess, could potentially be from aspiration and poor dentition versus malignancy. Plan: BAL cultures w E coli Suspect superinfected cavitary mass which could have been malignant. Plan on performing bronchoscopy/EBUS at [facility] on 10/29. Will continue with empiric piperacillin [...] reviewed Imaging data: reviewed Kurt Pereira MD [phone] 10/31/2024 7:53 AM [facility] CONSULT PROGon 10-30-2024 CONSULT PROG HNO ID: [id number] Author: KURT PEREIRA MD Service: Infectious Disease Author Type: Physician Type: Consult Progress Note Filed: 10/30/2024 22:20 Note Text: INFECTIOUS DISEASE PROGRESS NOTE Patient Name: Stevie Sanchez INTERVAL HISTORY: Had BAL yesterday. Cough present. [...] 10/25/2024 Ex-smoker Date Noted: 10/25/2024 ASSESSMENT: Stevie Sanchez is a 74 year old male with tachycardia and leukocytosis, CT of the chest revealed thick-walled right upper lobe cavitary mass is noted with an associated air-fluid level. Differential includes primary lung abscess, could potentially be from aspiration and poor dentition versus malignancy. Plan: Suspect superinfected cavitary mass which could have been malignant. Plan on performing bronchoscopy/EBUS at [facility] on 10/29. Will continue with empiric piperacillin [...] reviewed Imaging data: reviewed Kurt Pereira MD [phone] 10/30/2024 7:53 AM [facility] THERAPY NTon 10-30-2024 THERAPY NT HNO ID: [id number] Author: ALEX LEWSI OTR/Umberto Service: Occupational Therapy Author Type: Occupational Therapist Type: Therapy (PT/OT/Speech/Resp) Filed: 10/30/2024 16:08 Note Text: -- Summary: OT eval -- Occupational Therapy Evaluation Summary SERVICE DATE: 10/30/2024 SERVICE TIME: 1455 to 1522 ROOM: [id number]- OT 6 Clicks Score: 19 DISCHARGE RECOMMENDATIONS [...] consulted, plan for bronchoscopy and biopsy at [facility] 10/29 Relevant Past Medical History: Ex smoker [...] + driving SUBJECTIVE Patient supine in bed [place] agreeable to OT COGNITION Responsiveness: Alert, Awake Follows Commands: Cueing Needed Cueing to Follow Commands: Minimum THERAPY DIAGNOSIS Reduced mobility-other, Decreased activities of daily living (ADL), Muscle Weakness (generalized), General symptoms and signs-other TREATMENT INTERVENTIONS Evaluation, Self Long-Term Management (83130) Timed Code Treatment (minutes): 12 Skilled Treatment [...] Mobility Training, Balance Training Plan for Next (more content not included)... [facility] Normal [facility] ANES POSTPROC EVALon 025 ANES POSTPROC EVAL Normal [facility] ANES PRE-OPon 10-29-2024 ANES PRE-OP Normal [facility] ASPERGILLUS GALACTOMANNAN BA Rex 10-29-2024 ASPER. AG BAL,QUAL Negative Normal Negative [facility] Comment on above: Order Comment: Speci men Type: SPECIMEN OBTAINED BY LAVAGEOrdering Facility: [facility] Address: [address] [place] [address] Result Comment: Aspe rgillus Galactomannan antigen assay is used as an [...] uncommon. Clinical and radiological correlation is required. Performed By: #### A SGALB ####[facility] LABCLIA [id number] [address] [place] [address] [facility] ASPERGILLUS GALACTOMANNAN 0.04 Index Value Normal <=0.49 [facility] Comment on above: Order Comment: Speci men Type: SPECIMEN OBTAINED BY LAVAGEOrdering Facility: [facility] Address: [address] [place] [address] Performed By: #### A SGALB ####[facility] LABCLIA [id number] [address], [facility] [place] BAL MANUAL DIFFon 10-29-2024 DIF TTL, BA LAVAGE 100 cells counted Normal [facility] Comment on above: Order Comment: Speci men Type: SPECIMEN OBTAINED BY LAVAGEOrdering Facility: [facility] Address: [address] [place] [address] Performed By: #### L [id number], BALAVI ####[facility] LABCLIA [id number] [place] [address] [place] MACRO%, BA LAVAGE 4 % [facility] Comment on above: Order Comment: Speci men Type: SPECIMEN OBTAINED BY LAVAGEOrdering Facility: [facility] Address: [address] [place] [address] Performed By: #### L [id number], BALAVI ####[facility] LABCLIA [id number] [address] [address] [place] NEUT%, BA LAVAGE 96 % Normal [facility] Comment on above: Order Comment: Speci men Type: SPECIMEN OBTAINED BY LAVAGEOrdering Facility: [facility] Address: [address] [place], [place] [address] Performed By: #### L [id number], BALAVI ####[facility] LABCLIA [id number] [address], [facility] [place] BAL ROUTINE BFLon 10-29-2024 BAL COMMENT Clumped on chamber Normal [facility] Comment on above: Order Comment: Speci men Type: SPECIMEN OBTAINED BY LAVAGEOrdering Facility: [facility] Address: [address] [place] [address] Performed By: #### L [id number], BALAVI ####[facility] LABCLIA [id number] [place] [address] [place] Clarity (Unsp spec) Cloudy Abnormal Clear [facility] Comment on above: Order Comment: Speci men Type: SPECIMEN OBTAINED BY LAVAGEOrdering Facility: [facility] Address: [address] [place] [address] Performed By: #### L [id number], BALAVI ####[facility] LABCLIA [id number] [place] [address] [place] Color (Bronch spec) Slightly bloody Abnormal Colorless [facility] Comment on above: Order Comment: Speci men Type: SPECIMEN OBTAINED BY LAVAGEOrdering Facility: [facility] Address: [address] [place] [address] Performed By: #### L [id number], BALAVI ####[facility] LABCLIA [id number] [place] [address] [place] RBC LM.HPF (BAL) [#/Area] 9896 /uL Normal Reference range not established. [facility] Comment on above: Order Comment: Speci men Type: SPECIMEN OBTAINED BY LAVAGEOrdering Facility: [facility] Address: [address] [place] [address] Result Comment: Resu lts verified by dilution. Performed By: #### L [id number], BALAVI ####[facility] LABCLIA [id number] [place] [id number] [place] WBC Manual cnt (Bronch spec) [#/Vol] 3071 /uL Normal Reference range not established. [facility] Comment on above: Order Comment: Speci men Type: SPECIMEN OBTAINED BY LAVAGEOrdering Facility: [facility] Address: [address] [place] [address] Result Comment: Resu lts verified by dilution. Performed By: #### L [id number], BALAVI ####[facility] LABCLIA [id number] [address] [id number], [place] [address] [place] Bacteria BAL Aerobe Culton 0 10-29-2024 Bacteria identified Aer cx Nom (BAL) ORGANISM ID: 1 2,000 CFU/mL Escherichia coli Refer to specimen collected on 10/29/2024 at 1146 [[id number]] GRAM STAIN: No organisms seen Few Polymorphonuclear leukocytes Abnormal [facility] Comment on above: Performed By: #### 4 3441-5, 580-1 ####[facility] LABCLIA [id number] [facility] [facility] [address] [place] [address] [place] Bacteria Spec Anaerobe Culto n 10-29-2024 Bacteria identified Anaer cx Nom (Unsp spec) Negative Normal [facility] Comment on above: Performed By: #### 6 35-3, 01465-2, 88640-5 ####[facility] LABCLIA [id number] [facility] [facility] [address] [place] [address] [place] Bacteria Spec Resp Culton Bacteria identified Respiratory culture Nom (Unsp spec) Abnormal [facility] Comment on above: Performed By: #### 3 2355-0, 79992-7 ####[facility] LABCLIA [id number] [facility] [address] [place] [address] [place] Bacteria Tiss Culton 025 Bacteria identified Cx Nom (Tiss) Abnormal [facility] Comment on above: Performed By: #### 6 35-3, 11603-4, 44979-2 ####[facility] LABCLIA [id number] [address] [facility] [place] [id number], [place] [address] [place] Bronchoscopyon 10-29-2024 Bronchoscopy Normal [facility] CONSULT PROGon 10-29-2024 CONSULT PROG HNO ID: [id number] Author: KURT PEREIRA MD Service: Infectious Disease Author Type: Physician Type: Consult Progress Note Filed: 10/29/2024 11:54 Note Text: INFECTIOUS DISEASE PROGRESS NOTE Patient Name: Stevie Sacnhez INTERVAL HISTORY: Going to [facility] main for Bronch today w [place]. Cough present. [...] 10/25/2024 Ex-smoker Date Noted: 10/25/2024 ASSESSMENT: Stevie Sanchez is a 74 year old male with tachycardia and leukocytosis, CT of the chest revealed thick-walled right upper lobe cavitary mass is noted with an associated air-fluid level. Differential includes primary lung abscess, could potentially be from aspiration and poor dentition versus malignancy. Plan: Suspect superinfected cavitary mass which could have been malignant. Plan on performing bronchoscopy/EBUS at [facility] on 10/29. Will continue with empiric piperacillin [...] reviewed Imaging data: reviewed Kurt Pereira MD [phone] 10/29/2024 7:53 AM Normal [facility] CYTOLOGY NON-GYNon ADEQUACY INTERPRETATION Normal [facility] Comment on above: Order Comment: Speci men Type: SPECIMEN OBTAINED BY ASPIRATIONOrdering Facility: [facility] Address: [address] [place] [address] Result Comment: A: # 1-2: Suspicious for squamous cell carcinomaB: #1-3: Marked acute inflammationC: #1-2: Non-diagnosticD: #1: Lymphoid sample #2: Non-diagnosticE: #1: Lymphoid sample #2-3: Non-diagnostic F: #1-2: Lymphoid sampleG: #1: Chronic inflammation, predominantly histocytes #2: Non-diagnosticDr. Tete Bolton/Alfonso Christopher letter in the above intra-procedural assessment refers to a unique site. The specific site is indicated in the final diagnosis portion of the report. Each number in this assessment references a discrete evaluation episode.Intra-[place] [address] Performed By: #### C GALI ####[facility] LABCLIA [id number] [place] [address] [place] AP DISCLAIMER Normal [facility] Comment on above: Order Comment: Speci men Type: SPECIMEN OBTAINED BY ASPIRATIONOrdering Facility: [facility] Address: [address] [place] [address] Result Comment: Everett davey Developed Test (LDT) Disclaimer:Performance characteristics of immunohistochemical, immunofluorescent, and chromogenic in-situ hybridization tests have been determined by the performing laboratory within the [facility] Department of Pathology and Laboratory Medicine ([facility], [facility], [facility], [facility], [facility], or [facility]) in a manner consistent with CLIA requirements. One or more of these tests may not have been cleared or approved by the FDA. The [facility] Department of Pathology and Laboratory Medicine is regulated under CLIA as qualified to perform high-complexity testing. These tests are used for clinical purposes. These should not be regarded as investigational or for research. Positive and negative controls stain appropriately. Performed By: #### C YTONON ####[facility] LABCLIA [id number] [place] [address] [place] CASE REPORT Normal [facility] Comment on above: Order Comment: Speci men Type: SPECIMEN OBTAINED BY ASPIRATIONOrdering Facility: [facility] Address: [address] [place] [address] Result Comment: [facility] Cytology Report Case: [id number] Provider: Siddharth Martinez MD Collected: 10/29/2024 11:54 AMOrdering Location: Admitting Received: 10/29/2024 02:37 PMPathologist: Zaina Bolton MDSpecimens: A) - Lung, Right Lower Lobe, Transbronchial, right lower lobe TBNA B) - Lung, Right Upper Lobe, Transbronchial, right upper lobeTBNA C) - Lymph Node, Transbronchial, 4L D) - Lymph Node, Transbronchial, 2R E) - Lymph Node, Transbronchial, 4R F) - Lymph Node, Transbronchial, 11RS G) - Lung, Right Upper Lobe, Transbronchial, right upper lobe consolidation Performed By: #### C YTONON ####[facility] LABCLIA [id number] [place] [address] [place] 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 Normal [facility] Comment on above: Order Comment: Speci men Type: SPECIMEN OBTAINED BY ASPIRATIONOrdering Facility: [facility] Address: [address] [place] [address] Performed By: #### C YTONON ####[facility] LABCLIA [id number] [address] [address] [place] DIAGNOSIS COMMENT [facility] Comment on above: Order Comment: Speci men Type: SPECIMEN OBTAINED BY ASPIRATIONOrdering Facility: [facility] Address: [address] [place] [address] Performed By: #### C YTONON ####[facility] LABIA [id number] [address] STATES OF [facility] FINAL DIAGNOSIS Normal [facility] Comment on above: Order Comment: Speci men Type: SPECIMEN OBTAINED BY ASPIRATIONOrdering Facility: [facility] Address: [address] [place] [address] Result Comment: A - Lung, Right Lower Lobe, Transbronchial, FNA - right lower lobe TBNA Positive for malignant cells. Squamous cell carcinoma, keratinizing type. (See comment.)B - Lung, Right Upper Lobe, Transbronchial, FNA - right upper lobe TBNA Rare atypical squamous cells present in a background of abscess, not otherwise diagnostic. (See comment.)C - Lymph Node, Transbronchial, FNA - 4L Negative for malignant cells. Benign lymphoid sample.D - Lymph Node, Transbronchial, FNA - 2R Negative for malignant cells. Benign lymphoid sample.E - Lymph Node, Transbronchial, FNA - 4R Negative for malignant cells. Benign lymphoid sample.F - Lymph Node, Transbronchial, FNA - 11RS Negative for malignant cells. Benign lymphoid sample.G - Lung, Right Upper Lobe, Transbronchial, FNA - right upper lobe consolidation Rare atypical cells present, favor radiation atypia. (See comment.)The following cell blocks were associated with this case:A1 Cell Block, Alcohol FixedB1 Cell Block, Alcohol FixedC1 Cell Block, Alcohol FixedD1 Cell Block, Alcohol FixedE1 Cell Block, Alcohol FixedF1 Cell Block, Alcohol FixedG1 Cell Block, Alcohol Fixed at 1605 EDT Performed By: #### C YTONON ####[facility] LABCLIA [id number] [place] [address] [place] FINAL PERFORMING LAB Normal [facility] Comment on above: Order Comment: Speci men Type: SPECIMEN OBTAINED BY ASPIRATIONOrdering Facility: [facility] Address: [address] [place] [address] Result Comment: Tech nical component, linotype worker screening performed at: [facility], [address] [place], [place] [address] CLIA: [id number] interpretation performed at: [facility], [address] [place] [address] CLIA# [id number] Director: Ike Reaves MD Performed By: #### C YTONON ####[facility] LABCLIA [id number] [address] [place] GROSS DESCRIPTION [facility] Comment on above: Order Comment: Speci men Type: SPECIMEN OBTAINED BY ASPIRATIONOrdering Facility: [facility] Address: [address] [place] [address] Result Comment: A. L jill, Right Lower Lobe, Fxfwakebymjowr84 cc clear colorless CytoLyt with scant particles. ThinPrep and Cell Block prepared and 4 smears (2 air dried and 2 fixed).B. Lung, Right Upper Lobe, Rzsfddcioodzki43 cc cloudy pink CytoLyt with material. ThinPrep and Cell Block prepared and 6 smears (3 air dried and 3 fixed).C. Lymph Node, Dbukknlkhqwzkc44 cc clear pink CytoLyt with material. ThinPrep and Cell Block prepared and 4 smears (2 air dried and 2 fixed).D. Lymph Node, Tsyizqyspmeugw14 cc clear pink CytoLyt with material. ThinPrep and Cell Block prepared and 4 smears (2 air dried and 2 fixed).E. Lymph Node, Hfbtiwmcayseqm05 cc clear pink CytoLyt with material. ThinPrep and Cell Block prepared and 6 smears (3 air dried and 3 fixed).F. Lymph Node, Aabtqyzqpvuikw78 cc clear pink CytoLyt with material. ThinPrep and Cell Block prepared and 4 smears (2 air dried and 2 fixed).G. Lung, Right Upper Lobe, Mcxrfrhsgbkdoq35 cc clear red CytoLyt with material. ThinPrep and Cell Block prepared and 4 smears (2 air dried and 2 fixed). Performed By: #### C YTONON ####[facility] LABCLIA [id number] [place] [address] [place] ORDER COMMENT Normal [facility] Comment on above: Order Comment: Speci men Type: SPECIMEN OBTAINED BY ASPIRATIONOrdering Facility: [facility] Address: [address] [place] [address] Result Comment: Pre- op diagnosis:Bronchiolar disease [J98.09] Performed By: #### C YTONON ####[facility] LABCLIA [id number] [place] [address] [place] Fungus Spec Culton Fungus identified Cx Nom (Unsp spec) CULTURE, FUNGAL: No Fungus isolated after 28 days Normal [facility] Comment on above: Performed By: #### 4 3441-5, 580-1 ####[facility] LABCLIA [id number] [place] [address] [place] L. pneumophila DNA WENDY+probe Ql (Unsp spec)on 10-29-2024 Legionella spp Spec Ql WENDY+probe Not detected Normal Not detected [facility] Comment on above: Order Comment: Speci men Type: SPECIMEN OBTAINED BY LAVAGEOrdering Facility: [facility] Address: [address] [place] [address] Performed By: #### 2 1363-7 ####[facility] LABCLIA [id number] [place] [address] [place] Microorganism Spec Culton Microorganism identified Cx Nom (Unsp spec) CULTURE, FUNGAL: No Fungus isolated after 28 days FUNGAL SMEAR: No fungus seen Normal [facility] Comment on above: Performed By: #### 6 35-3, 21013-7, 69862-3 ####[facility] LABCLIA [id number] [address] [place] [address] [place] Microorganism identified Cx Nom (Unsp spec) CULTURE, FUNGAL: No Fungus isolated after 28 days FUNGAL SMEAR: No fungus seen Normal [facility] Comment on above: Performed By: #### 3 2355-0, 86941-3 ####[facility] LABCLIA [id number] [address] [place] [address] [place] PD-L1 22C3on 10-29-2024 AP BIOMARKER DISCLAIMER Normal [facility] Comment on above: Order Comment: Speci men Type: TISSUE SPECIMENOrdering Facility: [facility] Address: [address] [place] [address] Result Comment: Everett davey Developed Test (LDT) Disclaimer:Performance characteristics of immunohistochemical, immunofluorescent and chromogenic in-situ hybridization tests have been determined by the performing laboratory within [facility]???s [facility] Pathology and Laboratory Medicine Department ([facility]), [facility], [facility], [facility], [facility], [facility], or [facility]) in a [...] negative controls stain appropriately. Performed By: #### L [id number] ####[facility] LABCLIA [id number] [address] [place] [address] [place] AP BLOCK ID A1 Normal [facility] Comment on above: Order Comment: Speci men Type: TISSUE SPECIMENOrdering Facility: [facility] Address: [address] [place] [address] Performed By: #### L [id number] ####[facility] LABCLIA [id number] [address] [id number], [place] [address] [place] BIOMARKER INTERPRETATION COMMENT AND REFERENCE RANGE Normal [facility] Comment on above: Order Comment: Speci men Type: TISSUE SPECIMENOrdering Facility: [facility] Address: [address] [place] [address] Result Comment: Inte rpretation standard:TPS: The Tumor Proportion Score is the percentage of the viable tumor cells demonstrating partial or completed membrane staining of any intensity.Reference Range for PDL1 expression in Non-Small Cell Lung Cancer (NSCLC)TPS less than 1%: NegativeTPS between 1 - 49%: Low PositiveTPS greater than 50%: High PositiveThe PDL1 expression of Non-Small Cell Lung Cancer (NSCLC) is interpreted to determine if the patient should be considered for treatment with either pembrolizumab (KEYTRUDA) or cemiplimab-rwlc (LIBTAYO).Please refer to the Product label for additional information.KEYTRUDA - (https://www.[email or web address].[email or web address]/prescribing-information/)LIBTAYO - (https://www.Horsealot/sites/default/files/Libtayo_FPI.pdf) Performed By: #### L [id number] ####[facility] LABCLIA [id number] [address] BIOMARKER METHOD Normal [facility] Comment on above: Order Comment: Speci men Type: TISSUE SPECIMENOrdering Facility: [facility] Address: [address] [place] [address] Performed By: #### L [id number] ####[facility] LABCLIA [id number] [address] CASE NUMBER PD-L1 [id number] Normal [facility] Comment on above: Order Comment: Speci men Type: TISSUE SPECIMENOrdering Facility: [facility] Address: [address] [place] [address] Performed By: #### L [id number] ####[facility] LABCLIA [id number] [address] OF [place] FINAL PERFORMING LAB Normal [facility] Comment on above: Order Comment: Speci men Type: TISSUE SPECIMENOrdering Facility: [facility] Address: [address] [place], [place] [address] Result Comment: Diag nostic interpretation performed at: [facility], [address] [place] [address] [place] [address] CLIA# [id number] Director: Ike Reaves MDElectronically signed out by: Alexis Altman MD Performed By: #### L [id number] ####[facility] LABCLIA [id number] [address] [place] [address] [place] Result Comment: Diag nostic interpretation performed at: [facility], [address] [place] [address] [place] [address] CLIA# [id number] Director: Ike Reaves MD Performed By: #### 6 6121-5 ####[facility] LABCLIA [id number] [address] [place] [address] [place] FIXATIVE Normal [facility] Comment on above: Order Comment: Speci men Type: TISSUE SPECIMENOrdering Facility: [facility] Address: [address] [place] [address] Performed By: #### L [id number] ####[facility] LABCLIA [id number] [address] [place] [address] [place] PD-L1 22C3 TPS (LUNG) INTERPRETATION Negative Normal [facility] Comment on above: Order Comment: Speci men Type: TISSUE SPECIMENOrdering Facility: [facility] Address: [address] [place], [place] [address] Performed By: #### L [id number] ####[facility] LABCLIA [id number] [address] [place] [address] [place] PD-L1 TUMOR TYPE Other (See Comment) Normal [facility] Comment on above: Order Comment: Speci men Type: TISSUE SPECIMENOrdering Facility: [facility] Address: [address] [place] [address] Result Comment: See original report Performed By: #### L [id number] ####[facility] LABCLIA [id number] [address] STATES [place] TUMOR PROPORTION SCORE (TPS) <1 Normal [facility] Comment on above: Order Comment: Speci men Type: TISSUE SPECIMENOrdering Facility: [facility] Address: [address] [place] [address] Performed By: #### L [id number] ####[facility] LABCLIA [id number] [address] [place] PNEUMOCYSTIS JIROVECII PCRon 10-29-2024 P. jiroveci DNA WENDY+probe (Unsp spec) [#/Vol] Not detected Normal Pneumocystis jirovecii Not Detected by PCR [facility] Comment on above: Order Comment: Speci men Type: SPECIMEN OBTAINED BY LAVAGEOrdering Facility: [facility] Address: [address] [place] [address] Performed By: #### P JPCR ####[facility] LABIA [id number] [address] [place] Pathology biopsy report Rikki (Tiss)on 10-29-2024 AP DISCLAIMER Normal [facility] Comment on above: Order Comment: Speci men Type: TISSUE SPECIMENOrdering Facility: [facility] Address: [address] [place] [address] Result Comment: Everett davey Developed Test (LDT) Disclaimer:Performance characteristics of immunohistochemical, immunofluorescent, and chromogenic in-situ hybridization tests have been determined by the performing laboratory within the [facility] Department of Pathology and Laboratory Medicine ([facility], [facility], [facility], [facility], [facility], or [facility]) in a manner consistent with CLIA requirements. One or more of these tests may not have been cleared or approved by the FDA. The [facility] Department of Pathology and Laboratory Medicine is regulated under CLIA as qualified to perform high-complexity testing. These tests are used for clinical purposes. These should not be regarded as investigational or for research. Positive and negative controls stain appropriately. Performed By: #### 6 6121-5 ####[facility] LABIA [id number] [address] [place] CASE REPORT Normal [facility] Comment on above: Order Comment: Speci men Type: TISSUE SPECIMENOrdering Facility: [facility] Address: [address] [place] [address] Result Comment: [facility] Pathology Report Case: [id number] Provider: Siddharth Martinez MD Collected: 10/29/2024 12:02 PMOrdering Location: Admitting Received: 10/29/2024 06:38 PMPathologist: Alexis Altman MDSpecimens: A) - Bronchus, Biopsy, RLL EBBX B) - Bronchus, Biopsy, RUL TBBX Performed By: #### 6 6121-5 ####[facility] [id number] [address] [place] CLINICAL HISTORY Normal [facility] Comment on above: Order Comment: Rody adams Type: TISSUE SPECIMENOrdering Facility: [facility] Address: [address] [place] [address] Result Comment: Pre- op diagnosis: 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 RLL endobronchial disease at stump. Purulent secretison from RUL. Performed By: #### 6 6121-5 ####[facility] [id number] [address] [place] DIAGNOSIS COMMENT [facility] Comment on above: Order Comment: Rody adams Type: TISSUE SPECIMENOrdering Facility: [facility] Address: [address] [place] [address] Result Comment: Immu nostains for keratin AE1/AE3, p40 and SMA were performed on B1: Keratin AE1/AE3 highlights preserved degenerated atypical cells that are negative for p40 and SMA.GMS stain was performed on B1: No fungal organisms were identified. Performed By: #### 6 6121-5 ####[facility] [id number] [place] [address] [place] FINAL DIAGNOSIS Normal [facility] Comment on above: Order Comment: Speci men Type: TISSUE SPECIMENOrdering Facility: [facility] Address: [address] [place] [address] Result Comment: A. L jill, right lower lobe, endobronchial biopsy:-Keratinizing squamous cell carcinoma.B. Lung, right upper lobe, transbronchial biopsy:-Necroinflammatory exudate, and occasional scattered degenerated, poorly preserved atypical epithelial cells (see comment).-Bronchial mucosa, granulation tissue, rare multinucleated giant cells, (see comment), at 1745 EDT Performed By: #### 6 6121-5 ####[facility] [id number] [place] [address] [place] GROSS DESCRIPTION [facility] Comment on above: Order Comment: Speci men Type: TISSUE SPECIMENOrdering Facility: [facility] Address: [address] [place] [address] Result Comment: A. B ronchus, BiopsyReceived in formalin are multiple pieces of clark-red, soft tissue aggregating to 0.9 x 0.5 x 0.2 cm. Totally submitted in cassette A1.B. Bronchus, BiopsyReceived in formalin are multiple pieces of clark-brown, soft tissue aggregating to 2.7 x 0.5 x 0.2 cm. Totally submitted in cassette B1.DL 10/29/24 8:03 PM. Gross examination performed at [facility], [address] [place] [address]. [place] [address] Performed By: #### 6 6121-5 ####[facility] LABIA [id number] [place] [address] [place] Respiratory pathogens DNA an d RNA panel WENDY+probe (Nph)on 10-29-2024 Adenovirus hexon gene WENDY+probe Ql (Nph) Not detected Normal Not detected [facility] Comment on above: Order Comment: Speci men Type: SPECIMEN OBTAINED BY LAVAGEOrdering Facility: [facility] Address: [address] [place] [address] Performed By: #### 7 8922-2 ####[facility] LABCLIA [id number] [place] [address] [place] C. pneumoniae DNA WENDY+probe Ql (Unsp spec) Not detected Normal Not detected [facility] Comment on above: Order Comment: Speci men Type: SPECIMEN OBTAINED BY LAVAGEOrdering Facility: [facility] Address: [address] [place] [address] Performed By: #### 7 8922-2 ####[facility] LABCLIA [id number] [place] [address] [place] FLUAV RNA WENDY+probe Ql (Unsp spec) Not detected Normal Not detected [facility] Comment on above: Order Comment: Speci men Type: SPECIMEN OBTAINED BY LAVAGEOrdering Facility: [facility] Address: [address] [place] [address] Performed By: #### 7 8922-2 ####[facility] LABCLIA [id number] [place] [address] [place] FLUBV RNA WENDY+probe Ql (Unsp spec) Not detected Normal Not detected [facility] Comment on above: Order Comment: Speci men Type: SPECIMEN OBTAINED BY LAVAGEOrdering Facility: [facility] Address: [address] [place] [address] Performed By: #### 7 8922-2 ####[facility] LABCLIA [id number] [place] [address] [place] HCoV 229E+OC43 RNA WENDY+probe Ql (Nph) Not detected Normal Not detected [facility] Comment on above: Order Comment: Speci men Type: SPECIMEN OBTAINED BY LAVAGEOrdering Facility: [facility] Address: [address] [place] [address] Performed By: #### 7 8922-2 ####[facility] LABIA [id number] [place] [address] [place] HCoV HKU1 RNA WENDY+probe Ql (Unsp spec) Not detected Normal Not detected [facility] Comment on above: Order Comment: Speci men Type: SPECIMEN OBTAINED BY LAVAGEOrdering Facility: [facility] Address: [address] [place] [address] Performed By: #### 7 8922-2 ####[facility] LABIA [id number] [place] [address] [place] HCoV NL63 RNA WENDY+non-probe Ql (Nph) Not detected Normal Not detected [facility] Comment on above: Order Comment: Speci men Type: SPECIMEN OBTAINED BY LAVAGEOrdering Facility: [facility] Address: [address] [place] [address] Performed By: #### 7 8922-2 ####[facility] LABIA [id number] [place] [address] [place] HCoV OC43 RNA WENDY+probe Ql (Unsp spec) Not detected Normal Not detected [facility] Comment on above: Order Comment: Speci men Type: SPECIMEN OBTAINED BY LAVAGEOrdering Facility: [facility] Address: [address] [place] [address] Performed By: #### 7 8922-2 ####[facility] LABCLIA [id number] [place] [address] [place] hMPV RNA WENDY+probe Ql (Unsp spec) Not detected Normal Not detected [facility] Comment on above: Order Comment: Speci men Type: SPECIMEN OBTAINED BY LAVAGEOrdering Facility: [facility] Address: [address] [place] [address] Performed By: #### 7 8922-2 ####[facility] LABCLIA [id number] [place] [address] [place] M. pneumoniae DNA WENDY+probe Ql (Unsp spec) Not detected Normal Not detected [facility] Comment on above: Order Comment: Speci men Type: SPECIMEN OBTAINED BY LAVAGEOrdering Facility: [facility] Address: [address] [place] [address] Performed By: #### 7 8922-2 ####[facility] LABCLIA [id number] [place] [address] [place] Parainfluenza virus 1 RNA WENDY+probe Ql (Unsp spec) Not detected Normal Not detected [facility] Comment on above: Order Comment: Speci men Type: SPECIMEN OBTAINED BY LAVAGEOrdering Facility: [facility] Address: [address] [place] [address] Performed By: #### 7 8922-2 ####[facility] LABCLIA [id number] [place] [address] [place] Parainfluenza virus 2 RNA WENDY+probe Ql (Unsp spec) Not detected Normal Not detected [facility] Comment on above: Order Comment: Speci men Type: SPECIMEN OBTAINED BY LAVAGEOrdering Facility: [facility] Address: [address] [place] [address] Performed By: #### 7 8922-2 ####[facility] LABCLIA [id number] [place] [address] [place] Parainfluenza virus 3 RNA WENDY+probe Ql (Unsp spec) Not detected Normal Not detected [facility] Comment on above: Order Comment: Speci men Type: SPECIMEN OBTAINED BY LAVAGEOrdering Facility: [facility] Address: [address] [place] [address] Performed By: #### 7 8922-2 ####[facility] LABCLIA [id number] [place] [id number] [place] Parainfluenza virus 4 P gene WENDY+probe Ql (Nph) Not detected Normal Not detected [facility] Comment on above: Order Comment: Speci men Type: SPECIMEN OBTAINED BY LAVAGEOrdering Facility: [facility] Address: [address] [place] [address] Performed By: #### 7 8922-2 ####[facility] LABCLIA [id number] [place] [address] [place] Rhinovirus 5' UTR RNA WENDY+probe Ql (Nph) Not detected Normal Not detected [facility] Comment on above: Order Comment: Speci men Type: SPECIMEN OBTAINED BY LAVAGEOrdering Facility: [facility] Address: [address] [place] [address] Performed By: #### 7 8922-2 ####[facility] LABIA [id number] [place] [address] [place] RSV RNA WENDY+probe Ql (Upper resp) Not detected Normal Not detected [facility] Comment on above: Order Comment: Speci men Type: SPECIMEN OBTAINED BY LAVAGEOrdering Facility: [facility] Address: [address] [place] [address] Performed By: #### 7 8922-2 ####[facility] LABIA [id number] [address] [place] SARS-CoV-2 (COVID-19) RNA WENDY+probe Ql (Unsp spec) Not detected Normal See comment [facility] Comment on above: Order Comment: Speci men Type: SPECIMEN OBTAINED BY LAVAGEOrdering Facility: [facility] Address: [address] [place] [address] Performed By: #### 7 8922-2 ####[facility] LABIA [id number] [place] [address] [place] Basic metabolic 2000 panelon 10-28-2024 Anion gap [Moles/Vol] 10 mmol/L Normal 8-15 [facility] Comment on above: Order Comment: Speci men Type: BLOOD SPECIMEN [facility] Address: [address] [place] [address] Performed By: #### 2 4321-2, 09403-7, 33318-2, 6-4 #### [facility] CLIA [id number] [address] [place] [address] [place] Calcium [Mass/Vol] 8.7 mg/dL Normal 8.5-10.2 [facility] Comment on above: Order Comment: Speci men Type: BLOOD SPECIMEN [facility] Address: [address] [place] [address] Performed By: #### 2 4321-2, 22518-5, 14150-8, 2275-4 #### [facility] CLIA [id number] [address] [place] [address] [place] Chloride [Moles/Vol] 107 mmol/L Normal 98-107 [facility] Comment on above: Order Comment: Speci men Type: BLOOD SPECIMEN [facility] Address: [address] [place] [address] Performed By: #### 2 4321-2, 84432-4, 24125-9, 2275-4 #### [facility] CLIA [id number] [address] [place] [address] [place] CO2 [Moles/Vol] 24 mmol/L Normal 22-30 [facility] Comment on above: Order Comment: Speci men Type: BLOOD SPECIMEN [facility] Address: [address] [place] [address] Performed By: #### 2 4321-2, 57404-3, 10627-6, 2275-4 #### [facility] CLIA [id number] [address] [place] [address] [place] Creatinine [Mass/Vol] 0.78 mg/dL Normal 0.73-1.22 [facility] Comment on above: Order Comment: Speci men Type: BLOOD SPECIMEN [facility] Address: [address] [place] [address] Performed By: #### 2 4321-2, 36029-7, 73320-9, 6-4 #### [facility] CLIA [id number] [address] [place] eGFRcr SerPlBld CKD-EPI 2020 95 mL/min/1.73m??? Normal >=60 [facility] Comment on above: Order Comment: Rody adams Type: BLOOD SPECIMEN [facility] Address: [address] [place] [address] Result Comment: Karon mated Glomerular Filtration Rate (eGFR) is calculated using the 2020 CKD-EPI creatinine equation. This equation utilizes serum creatinine, sex, and age as parameters. The creatinine assay has traceable calibration to isotope dilution-mass spectrometry. Refer to KDIGO guidelines for clinical interpretation. In patients with unstable renal function, e.g. those with acute kidney injury, the eGFR may not accurately reflect actual GFR. Performed By: #### 2 4321-2, 24974-3, 23277-7, 2275-05 #### [facility] CLIA [id number] [address] [place] [address] [place] Glucose [Mass/Vol] 117 mg/dL High 74-99 [facility] Comment on above: Order Comment: Rody adams Type: BLOOD SPECIMEN [facility] Address: [address] [place] [address] Result Comment: The [place] Diabetes Association (ADA) provides guidance for cutoff [...] Standards of Medical Care in Diabetes 2016, [place] [employer]. Diabetes Care. 2016.39(Suppl 1). Performed By: #### 2 4321-2, 67932-5, 62371-9, 2275- #### [facility] CLIA [id number] [address] [place] [address] [place] Potassium [Moles/Vol] 3.7 mmol/L Normal 3.7-5.1 [facility] Comment on above: Order Comment: Speci men Type: BLOOD SPECIMEN [facility] Address: [address] [place] [address] Performed By: #### 2 4321-2, 19658-8, 82716-4, 2275-4 #### [facility] CLIA [id number] [address] [place] Sodium [Moles/Vol] 141 mmol/L Normal 136-144 [facility] Comment on above: Order Comment: Speci men Type: BLOOD SPECIMEN [facility] Address: [address] [place] [address] Performed By: #### 2 4321-2, 48767-4, 10327-7, 2275- #### [facility] CLIA [id number] [address] [place] Urea nitrogen [Mass/Vol] 9 mg/dL Normal 9-24 [facility] Comment on above: Order Comment: Speci men Type: BLOOD SPECIMEN [facility] Address: [address] [place] [address] Performed By: #### 2 4321-2, 09451-9, 63595-1, 2275-05 #### [facility] CLIA [id number] [address] CBC panel Auto (Bld)on 10-28 Erythrocyte distribution width (RBC) [Ratio] 14.6 % Normal 11.5-15.0 [facility] Comment on above: Order Comment: Speci men Type: BLOOD SPECIMEN [facility] Address: [address] [place] [address] Performed By: #### 2 4321-2, 96759-5, 15459-7, 2275-4 #### [facility] CLIA [id number] [address] Hematocrit (Bld) [Volume fraction] 35.4 % Low 39.0-51.0 [facility] Comment on above: Order Comment: Speci men Type: BLOOD SPECIMEN [facility] Address: [address] [place] [address] Performed By: #### 2 4321-2, 70605-4, 18866-7, 2275-4 #### [facility] CLIA [id number] [address] OF [facility] Hemoglobin (Bld) [Mass/Vol] 11.6 g/dL Low 13.0-17.0 [facility] Comment on above: Order Comment: Speci men Type: BLOOD SPECIMEN [facility] Address: [address] [place] [address] Performed By: #### 2 4321-2, 31293-6, 20033-9, 2275-4 #### [facility] CLIA [id number] [address] [place] MCH (RBC) [Entitic mass] 31.0 pg Normal 26.0-34.0 [facility] Comment on above: Order Comment: Speci men Type: BLOOD SPECIMEN [facility] Address: [address] [place] [address] Performed By: #### 2 4321-2, 67435-1, 55491-8, 2275-05 #### [facility] CLIA [id number] [address] OF [facility] MCHC (RBC) [Mass/Vol] 32.8 g/dL Normal 30.5-36.0 [facility] Comment on above: Order Comment: Speci men Type: BLOOD SPECIMEN [facility]: [facility] Address: [address] [place], [place] [address] Performed By: #### 2 4321-2, 85777-1, 98046-6, 4 #### [facility] CLIA [id number] [address] OF [facility] MCV (RBC) [Entitic vol] 94.7 fL Normal 80.0-100.0 [facility] Comment on above: Order Comment: Speci men Type: BLOOD SPECIMEN [facility] Address: [address] [place] [address] Performed By: #### 2 4321-2, 57276-7, 11273-0, 2275-4 #### [facility] CLIA [id number] [address] [place] [address] [place] Nucleated RBC (Bld) [#/Vol] 10*3/uL Normal <0.01 [facility] Comment on above: Order Comment: Speci men Type: BLOOD SPECIMEN [facility] Address: [address] [place] [address] Performed By: #### 2 4321-2, 98263-0, 53010-2, 2275-4 #### [facility] CLIA [id number] [address] [place] [address] [place] Platelet mean volume (Bld) [Entitic vol] 8.6 fL Low 9.0-12.7 [facility] Comment on above: Order Comment: Speci men Type: BLOOD SPECIMEN [facility] Address: [address] [place] [address] Performed By: #### 2 4321-2, 16887-7, 29097-7, 2275- #### [facility] CLIA [id number] [address] [place] [address] [place] Platelets (Bld) [#/Vol] 394 10*3/uL Normal 150-400 [facility] Comment on above: Order Comment: Speci men Type: BLOOD SPECIMEN [facility] Address: [address] [place] [address] Performed By: #### 2 4321-2, 60499-5, 50086-1, 2275-4 #### [facility] CLIA [id number] [address] [place] [address] [place] RBC (Bld) [#/Vol] 3.74 10*6/uL Low 4.20-6.00 [facility] Comment on above: Order Comment: Speci men Type: BLOOD SPECIMEN [facility] Address: [address] [place] [address] Performed By: #### 2 4321-2, 86490-7, 15396-7, 2275-4 #### [facility] CLIA [id number] [address] [place] [address] [place] WBC (Bld) [#/Vol] 10.74 10*3/uL Normal 3.70-11.00 [facility] Comment on above: Order Comment: Speci men Type: BLOOD SPECIMEN [facility] Facility: [facility] Address: [place] [id number] Performed By: #### 2 4321-2, 25819-4, 49411-2, 2276-4 #### [facility] CLIA [id number] [address] [place] [address] [address] [facility] CONSULT PROGon 10-28-2024 CONSULT PROG HNO ID: [id number] Author: MAUREEN SHERMAN RPh Service: Pharmacy Author Type: Pharmacist Type: Consult Progress Note Filed: 10/28/2024 12:56 Note Text: PHARMACY VANCOMYCIN DOSING NOTE Patient Name: Stevie Sanchez Admission Date: 10/24/2024 Date of Consult: 10/28/2024 Time of Consult: 12:56 PM RECOMMENDATIONS/PLAN: Pharmacy consulted for vancomycin dosing for Stevie Sanchez, a 74 year old male. Vancomycin therapy has been discontinued. Vancomycin level(s) have been discontinued: Yes. The pharmacy vancomycin dosing service will sign off. Thank you for allowing us to participate in this patient's care. Please contact pharmacy if there are questions. Maureen Sherman RPh [facility] CONSULT PROG HNO ID: [id number] Author: KURT PEREIRA MD Service: Infectious Disease Author Type: Physician Type: Consult Progress Note Filed: 10/28/2024 12:54 Note Text: INFECTIOUS DISEASE PROGRESS NOTE Patient Name: Stevie Sanchez INTERVAL HISTORY: Cough present. Feels tired. No [...] 10/25/2024 Ex-smoker Date Noted: 10/25/2024 ASSESSMENT: Stevie Sanchez is a 74 year old male with tachycardia and leukocytosis, CT of the chest revealed thick-walled right upper lobe cavitary mass is noted with an associated air-fluid level. Differential includes primary lung abscess, could potentially be from aspiration and poor dentition versus malignancy. Plan: Suspect superinfected cavitary mass which could have been malignant. Plan on performing bronchoscopy/EBUS at [facility] on 10/29. Will continue with empiric piperacillin [...] not final until Authenticated by responsible provider. [facility] CONSULT PROG HNO ID: [id number] Author: MAUREEN SHERMAN RPh Service: Pharmacy Author Type: Pharmacist Type: Consult Progress Note Filed: 10/28/2024 13:01 Note Text: -- Attestation signed by Maureen Sherman RPh at 10/28/2024 1:01 PM Maureen Sherman RPh -- PHARMACY VANCOMYCIN DOSING NOTE Patient Name: Stevie Sanchez Admission Date: 10/24/2024 Date of Consult: 10/28/2024 Time of Consult: 11:00 AM Indication: Respiratory infection Goal Range: 15-20 mcg/mL RECOMMENDATIONS/PLAN: Pharmacy consulted for vancomycin dosing for Stevie Sanchez, a 74 year old male. 1. Patient [...] have any questions, please contact pharmacy at [phone]. Age: [age] year old Allergies: ALLERGIES No [...] 11.9 10/26/2024 0845 8.6 (L) Apryl Guerrero [facility] Normal [facility] Ferritin SerPl-mCncon 2024 Ferritin [Mass/Vol] 1133.0 ng/mL High 30.3-565.7 [facility] Comment on above: Order Comment: Speci men Type: BLOOD SPECIMEN [facility] [facility] Address: [facility] [place], [place] [id number] Performed By: #### 2 4321-2, 31054-7, 92061-4, 2276-4 #### [facility] CLIA [id number] [address] [place] [address] [place] Iron and Iron binding capaci ty panelon 10-28-2024 Iron [Mass/Vol] 17 ug/dL Low 41-186 [facility] Comment on above: Order Comment: Speci men Type: BLOOD SPECIMEN Ordering Facility: [facility] Address: [address] [place] [address] Performed By: #### 2 4321-2, 26123-6, 65233-4, 2275-4 #### [facility] CLIA [id number] [address] STATES [facility] Iron binding capacity [Mass/Vol] 133 ug/dL Low 232-386 [facility] Comment on above: Order Comment: Speci men Type: BLOOD SPECIMEN Ordering Facility: [facility] Address: [address] [place] [address] Performed By: #### 2 4321-2, 51742-8, 42441-6, 2275- #### [facility] CLIA [id number] [address] Iron/TIBC [Molar ratio] 12.8 % Low 15.0-57.0 [facility] Comment on above: Order Comment: Speci men Type: BLOOD SPECIMEN Ordering Facility: [facility] Address: [address] [place] [address] Performed By: #### 2 4321-2, 21595-3, 55254-9, 2275-05 #### [facility] CLIA [id number] [address] [place] Magnesium SerPl-mCncon 10-28 Magnesium [Mass/Vol] 2.2 mg/dL Normal 1.7-2.3 [facility] Comment on above: Order Comment: Speci men Type: BLOOD SPECIMEN Ordering Facility: [facility] Address: [address] [place], [place] [address] Performed By: #### 2 4321-2, 23625-8, 09258-0, 2275-4 #### [facility] CLIA [id number] [address] [place] PT panel Coag (PPP)on 2024 INR Coag (PPP) [Relative time] 1.1 {INR} Normal 0.9-1.3 [facility] Comment on above: Order Comment: Rody adams Type: BLOOD SPECIMEN Ordering Facility: [facility] Address: [address] [id number] Result Comment: Mita min K Antagonist (VKA) Therapeutic Range: INR 2 to 3 (Target INR of 2.5) Note: For patients treated with VKA drugs, such as warfarin, the [employer] 2012 Guideline recommends [...] to 3.5 (target INR of 3). Etienne GH, et al. Chest 2012, 141:7S-47S Vicki RA et al. [facility] 2017, 70: 252-289 Performed By: #### 3 4528-0 #### [facility] CLIA [id number] [address] [place] [address] [place] PT Coag (PPP) [Time] 11.9 s Normal 9.7-13.0 [facility] Comment on above: Order Comment: Rody adams Type: BLOOD SPECIMEN Ordering Facility: [facility] Address: [address] [place] [address] Performed By: #### 3 4528-0 #### [facility] CLIA [id number] [address] [place] [address] [place] Vancomycin Phoenix SerPl-mCncon 10-28-2024 Vancomycin random [Mass/Vol] 11.9 ug/mL Normal 10.0-20.0 [facility] Comment on above: Order Comment: Rody adams Type: BLOOD SPECIMEN Ordering Facility: [facility] Address: [address] [place] [id number] Result Comment: Refe rence ranges and high/low indicator flags are provided as general guidelines only. The treating physician must determine appropriate target levels/dosing based on the specific clinical situation. Performed By: #### 2 4321-2, 07559-1, 30004-9, 6-4 #### [facility] CLIA [id number] [address] [place] [address] [place] Basic metabolic 2000 panelon 10-27-2024 Anion gap [Moles/Vol] 9 mmol/L Normal 8-15 [facility] Comment on above: Order Comment: Speci men Type: BLOOD SPECIMEN Ordering Facility: [facility] Address: [address] [place] [address] Performed By: #### 2 4321-2, 54566-8, 86888-3, 2275-4 #### [facility] CLIA [id number] [address] [place] [address] [place] Calcium [Mass/Vol] 8.3 mg/dL Low 8.5-10.2 [facility] Comment on above: Order Comment: Speci men Type: BLOOD SPECIMEN Ordering Facility: [facility] Address: [address] [place] [address] Performed By: #### 2 4321-2, 87185-9, 90218-0, 2275-4 #### [facility] CLIA [id number] [address] [place] [address] [place] Chloride [Moles/Vol] 103 mmol/L Normal 98-107 [facility] Comment on above: Order Comment: Speci men Type: BLOOD SPECIMEN Ordering Facility: [facility] Address: [address] [place] [address] Performed By: #### 2 4321-2, 07250-1, 09192-7, 6-4 #### [facility] CLIA [id number] [address] [place] [address] [place] CO2 [Moles/Vol] 22 mmol/L Normal 22-30 [facility] Comment on above: Order Comment: Speci men Type: BLOOD SPECIMEN Ordering Facility: [facility] Address: [address] [place] [address] Performed By: #### 2 4321-2, 64925-1, 21971-2, 6-4 #### [facility] CLIA [id number] [address] STATES [facility] Creatinine [Mass/Vol] 0.54 mg/dL Low 0.73-1.22 [facility] Comment on above: Order Comment: Rody adams Type: BLOOD SPECIMEN Ordering Facility: [facility] Address: [address] [place] [address] Performed By: #### 2 4321-2, 38003-5, 40912-9, 6-4 #### [facility] CLIA [id number] [address] [place] eGFRcr SerPlBld CKD-EPI 2020 106 mL/min/1.73m??? Normal >=60 [facility] Comment on above: Order Comment: Rody adams Type: BLOOD SPECIMEN Ordering Facility: [facility] Address: [address] [place] [address] Result Comment: Karon mated Glomerular Filtration Rate (eGFR) is calculated using the 2020 CKD-EPI creatinine equation. This equation utilizes serum creatinine, sex, and age as parameters. The creatinine assay has traceable calibration to isotope dilution-mass spectrometry. Refer to KDIGO guidelines for clinical interpretation. In patients with unstable renal function, e.g. those with acute kidney injury, the eGFR may not accurately reflect actual GFR. Performed By: #### 2 4321-2, 89865-7, 07810-5, 2275-4 #### [facility] CLIA [id number] [address] [place] Glucose [Mass/Vol] 136 mg/dL High 74-99 [facility] Comment on above: Order Comment: Rody adams Type: BLOOD SPECIMEN Ordering Facility: [facility] Address: [address] [place] [address] Result Comment: The [place] [employer] (ADA) provides guidance for cutoff [...] Standards of Medical Care in Diabetes 2016, [employer]. Diabetes Care. 2016.39(Suppl 1). Performed By: #### 2 4321-2, 65115-6, 45124-8, 2275-4 #### [facility] CLIA [id number] [address] [place] [address] [place] Potassium [Moles/Vol] 3.7 mmol/L Normal 3.7-5.1 [facility] Comment on above: Order Comment: Rody adams Type: BLOOD SPECIMEN Ordering Facility: [facility] Address: [address] [place] [address] Performed By: #### 2 4321-2, 48656-5, 05165-1, 2275-05 #### [facility] CLIA [id number] [address] [place] Sodium [Moles/Vol] 134 mmol/L Low 136-144 [facility] Comment on above: Order Comment: Rody adams Type: BLOOD SPECIMEN Ordering Facility: [facility] Address: [address] [place] [address] Performed By: #### 2 4321-2, 87014-7, 71420-2, 2275-05 #### [facility] CLIA [id number] [address] [place] Urea nitrogen [Mass/Vol] 8 mg/dL Low 9-24 [facility] Comment on above: Order Comment: Rody adams Type: BLOOD SPECIMEN Ordering Facility: [facility] Address: [address] [place] [address] Performed By: #### 2 4321-2, 22161-1, 22124-4, 4 #### [facility] CLIA [id number] [address] [place] CBC panel Auto (Bld)on 10-27 Erythrocyte distribution width (RBC) [Ratio] 14.6 % Normal 11.5-15.0 [facility] Comment on above: Order Comment: Rody adams Type: BLOOD SPECIMENOrdering Facility: [facility] Address: [facility] [place] [address] Performed By: #### 5 8410-2 ####[facility] [id number] [address] Hematocrit (Bld) [Volume fraction] 34.5 % Low 39.0-51.0 [facility] Comment on above: Order Comment: Speci men Type: BLOOD SPECIMENOrdering Facility: [facility] Address: [address] [place] [address] Performed By: #### 5 8410-2 ####[facility] [id number] [address] [place] Hemoglobin (Bld) [Mass/Vol] 11.2 g/dL Low 13.0-17.0 [facility] Comment on above: Order Comment: Speci men Type: BLOOD SPECIMENOrdering Facility: [facility] Address: [address] [place] [address] Performed By: #### 5 8410-2 ####[facility] [id number] [address] MCH (RBC) [Entitic mass] 30.4 pg Normal 26.0-34.0 [facility] Comment on above: Order Comment: Speci men Type: BLOOD SPECIMENOrdering Facility: [facility] Address: [address] [place] [address] Performed By: #### 5 8410-2 ####[facility] [id number] [address] MCHC (RBC) [Mass/Vol] 32.5 g/dL Normal 30.5-36.0 [facility] Comment on above: Order Comment: Speci men Type: BLOOD SPECIMENOrdering Facility: [facility] Address: [address] [place] [address] Performed By: #### 5 8410-2 ####[facility] [id number] [address] MCV (RBC) [Entitic vol] 93.8 fL Normal 80.0-100.0 [facility] Comment on above: Order Comment: Speci men Type: BLOOD SPECIMENOrdering Facility: [facility] Address: [address] [place] [address] Performed By: #### 5 8410-2 ####[facility] [id number] [place] [address] [place] Nucleated RBC (Bld) [#/Vol] 10*3/uL Normal <0.01 [facility] Comment on above: Order Comment: Speci men Type: BLOOD SPECIMENOrdering Facility: [facility] Address: [address] [place] [address] Performed By: #### 5 8410-2 ####[facility] [id number] [place] [address] [place] Platelet mean volume (Bld) [Entitic vol] 8.8 fL Low 9.0-12.7 [facility] Comment on above: Order Comment: Speci men Type: BLOOD SPECIMENOrdering Facility: [facility] Address: [address] [place] [address] Performed By: #### 5 8410-2 ####[facility] [id number] [address] [place] Platelets (Bld) [#/Vol] 391 10*3/uL Normal 150-400 [facility] Comment on above: Order Comment: Speci men Type: BLOOD SPECIMENOrdering Facility: [facility] Address: [address] [place] [address] Performed By: #### 5 8410-2 ####[facility] [id number] [place] [address] [place] RBC (Bld) [#/Vol] 3.68 10*6/uL Low 4.20-6.00 [facility] Comment on above: Order Comment: Speci men Type: BLOOD SPECIMENOrdering Facility: [facility] Address: [address] [place] [address] Performed By: #### 5 8410-2 ####[facility] [id number] [place] [address] [place] WBC (Bld) [#/Vol] 13.32 10*3/uL High 3.70-11.00 [facility] Comment on above: Order Comment: Rody adams Type: BLOOD SPECIMENOrdering Facility: [facility] Address: [address] [place] [address] Performed By: #### 5 8410-2 ####[facility] [id number] [address] Magnesium SerPl-mCncon 10-27 Magnesium [Mass/Vol] 2.1 mg/dL Normal 1.7-2.3 [facility] Comment on above: Order Comment: Rody adams Type: BLOOD SPECIMEN Ordering Facility: [facility] Address: [address] [place] [address] Performed By: #### 2 4321-2, 94522-3, 66622-5, 2276-4 #### [facility] CLIA [id number] [address] [place] BLOOD TB SCREENon 10-26-2024 M. tuberculosis tuberculin stim IFN-g Ql (Bld) Negative [facility] Comment on above: Order Comment: Rody adams Type: BLOOD SPECIMENOrdering Facility: [facility] Address: [address] [place] [address] Performed By: #### I NFTBP ####[facility] LABCLIA [id number] [place] [address] [place] [facility] [place] MITOGEN MINUS NIL 0.82 IU/mL Normal >=0.50 [facility] Comment on above: Order Comment: Rody bryan Type: BLOOD SPECIMENOrdering Facility: [facility] Address: [address] [place] [address] Performed By: #### I NFTBP ####[facility] LABCLIA [id number] [address] [place] TB GAMMA INTERPRETATION Infection with M. tuberculosis complex is unlikely. If latent tuberculosis infection is highly suspected, a negative result does not rule out the infection. Specimens from immunocompromised patients and those <5 years of age may show false negative results. In case of a contact investigation, please repeat 8-12 weeks after a known exposure. [facility] Comment on above: Order Comment: Speci men Type: BLOOD SPECIMENOrdering Facility: [facility] Address: [address] [place] [address] Performed By: #### I NFTBP ####[facility] LABCLIA [id number] [address] [place] TB NIL 0.02 IU/mL Normal <=8.00 [facility] Comment on above: Order Comment: Speci men Type: BLOOD SPECIMENOrdering Facility: [facility] Address: [address] [place] [address] Performed By: #### I NFTBP ####[facility] LABCLIA [id number] [place] [address] [place] TB1 AG MINUS NIL 0.00 IU/mL Normal <0.35 [facility] Comment on above: Order Comment: Speci men Type: BLOOD SPECIMENOrdering Facility: [facility] Address: [address] [place] [address] Performed By: #### I NFTBP ####[facility] LABCLIA [id number] [address] [place] TB2 AG MINUS NIL 0.00 IU/mL Normal <0.35 [facility] Comment on above: Order Comment: Speci men Type: BLOOD SPECIMENOrdering Facility: [facility] Address: [address] [place] [address] Performed By: #### I NFTBP ####[facility] LABCLIA [id number] [place] [address] [place] Basic metabolic 2000 panelon 10-26-2024 Anion gap [Moles/Vol] 10 mmol/L Normal 8-15 [facility] Comment on above: Order Comment: Speci men Type: BLOOD SPECIMEN Ordering Facility: [facility] Address: [address] [place] [address] Performed By: #### 2 4321-2, 86893-7, 06227-6, 2276-4 #### [facility] CLIA [id number] [address] [place] [address] [place] Calcium [Mass/Vol] 8.7 mg/dL Normal 8.5-10.2 [facility] Comment on above: Order Comment: Speci men Type: BLOOD SPECIMEN Ordering Facility: [facility] Address: [address] [place] [address] Performed By: #### 2 4321-2, 88987-7, 29422-6, 2275-4 #### [facility] CLIA [id number] [address] [place] [address] [place] Chloride [Moles/Vol] 102 mmol/L Normal 98-107 [facility] Comment on above: Order Comment: Speci men Type: BLOOD SPECIMEN Ordering Facility: [facility] Address: [address] [place] [address] Performed By: #### 2 4321-2, 34006-6, 89836-7, 2275-4 #### [facility] CLIA [id number] [address] [place] [address] [place] CO2 [Moles/Vol] 24 mmol/L Normal 22-30 [facility] Comment on above: Order Comment: Speci men Type: BLOOD SPECIMEN Ordering Facility: [facility] Address: [address] [place] [address] Performed By: #### 2 4321-2, 81540-4, 35012-9, 2275-4 #### [facility] CLIA [id number] [address] [place] [address] [place] Creatinine [Mass/Vol] 0.60 mg/dL Low 0.73-1.22 [facility] Comment on above: Order Comment: Speci men Type: BLOOD SPECIMEN Ordering Facility: [facility] Address: [address] [place] [address] Performed By: #### 2 4321-2, 70245-8, 95937-9, 2275-4 #### [facility] CLIA [id number] [address] [place] [address] [place] eGFRcr SerPlBld CKD-EPI 2020 103 mL/min/1.73m??? Normal >=60 [facility] Comment on above: Order Comment: Rody adams Type: BLOOD SPECIMEN Ordering Facility: [facility] Address: [address] [id number] Result Comment: Karon mated Glomerular Filtration Rate (eGFR) is calculated using the 2020 CKD-EPI creatinine equation. This equation utilizes serum creatinine, sex, and age as parameters. The creatinine assay has traceable calibration to isotope dilution-mass spectrometry. Refer to KDIGO guidelines for clinical interpretation. In patients with unstable renal function, e.g. those with acute kidney injury, the eGFR may not accurately reflect actual GFR. Performed By: #### 2 4321-2, 58999-5, 59582-3, 2275-4 #### [facility] CLIA [id number] [address] [place] [address] [place] Glucose [Mass/Vol] 114 mg/dL High 74-99 [facility] Comment on above: Order Comment: Rody adams Type: BLOOD SPECIMEN Ordering Facility: [facility] Address: [address] [place] [address] Result Comment: The [place] Diabetes [employer] (ADA) provides guidance for cutoff [...] Standards of Medical Care in Diabetes 2016, [place] [employer]. Diabetes Care. 2016.39(Suppl 1). Performed By: #### 2 4321-2, 65393-0, 68231-8, 2275-4 #### [facility] CLIA [id number] [address] [place] [address] [place] Potassium [Moles/Vol] 3.9 mmol/L Normal 3.7-5.1 [facility] Comment on above: Order Comment: Rody adams Type: BLOOD SPECIMEN Ordering Facility: [facility] Address: [address] [id number] Performed By: #### 2 4321-2, 86245-2, 73223-2, 2275-4 #### [facility] CLIA [id number] [address] [place] Sodium [Moles/Vol] 136 mmol/L Normal 136-144 [facility] Comment on above: Order Comment: Speci men Type: BLOOD SPECIMEN Ordering Facility: [facility] Address: [address] [place] [address] Performed By: #### 2 4321-2, 89645-9, 44190-2, 2275-4 #### [facility] CLIA [id number] [address] [place] [address] [place] Urea nitrogen [Mass/Vol] 9 mg/dL Normal 9-24 [facility] Comment on above: Order Comment: Speci men Type: BLOOD SPECIMEN Ordering Facility: [facility] Address: [address] [place] [address] Performed By: #### 2 4321-2, 65516-8, 89606-8, 2275-4 #### [facility] CLIA [id number] [address] [place] [address] [place] CBC panel Auto (Bld)on 10-26 Erythrocyte distribution width (RBC) [Ratio] 14.6 % Normal 11.5-15.0 [facility] Comment on above: Order Comment: Speci men Type: BLOOD SPECIMEN Ordering Facility: [facility] Address: [address] [place] [address] Performed By: #### 2 4321-2, 61121-7, 48662-4, 2275-4 #### [facility] CLIA [id number] [address] [place] Hematocrit (Bld) [Volume fraction] 32.9 % Low 39.0-51.0 [facility] Comment on above: Order Comment: Speci men Type: BLOOD SPECIMEN Ordering Facility: [facility] Address: [address] [place] [address] Performed By: #### 2 4321-2, 59478-9, 96399-8, 2276-4 #### [facility] CLIA [id number] 1000 [place], [place] [address] [place] [address] [place] Hemoglobin (Bld) [Mass/Vol] 10.9 g/dL Low 13.0-17.0 [facility] Comment on above: Order Comment: Speci men Type: BLOOD SPECIMEN Ordering Facility: [facility] Address: [address] [place] [address] Performed By: #### 2 4321-2, 21366-5, , 2275-05 #### [facility] CLIA [id number] [address] [place] MCH (RBC) [Entitic mass] 31.0 pg Normal 26.0-34.0 [facility] Comment on above: Order Comment: Speci men Type: BLOOD SPECIMEN Ordering Facility: [facility] Address: [address] [place] [address] Performed By: #### 2 4321-2, 90068-2, , 2275-05 #### [facility] CLIA [id number] [address] MCHC (RBC) [Mass/Vol] 33.1 g/dL Normal 30.5-36.0 [facility] Comment on above: Order Comment: Speci men Type: BLOOD SPECIMEN Ordering Facility: [facility] Address: [address] [place] [address] Performed By: #### 2 4321-2, 28414-5, 75254-8, 2275-05 #### [facility] CLIA [id number] [address] OF [facility] MCV (RBC) [Entitic vol] 93.5 fL Normal 80.0-100.0 [facility] Comment on above: Order Comment: Speci men Type: BLOOD SPECIMEN Ordering Facility: [facility] Address: [address] [place] [address] Performed By: #### 2 4321-2, 43055-0, 30880-9, 2275-05 #### [facility] CLIA [id number] [address] [place] [address] [place] Nucleated RBC (Bld) [#/Vol] 10*3/uL Normal <0.01 [facility] Comment on above: Order Comment: Speci men Type: BLOOD SPECIMEN Ordering Facility: [facility] Address: [address] [place] [address] Performed By: #### 2 4321-2, 11621-9, 47411-0, 6-4 #### [facility] CLIA [id number] [address] [place] [address] [place] Platelet mean volume (Bld) [Entitic vol] 8.8 fL Low 9.0-12.7 [facility] Comment on above: Order Comment: Speci men Type: BLOOD SPECIMEN Ordering Facility: [facility] Address: [address] [place] [address] Performed By: #### 2 4321-2, 81537-8, 08829-5, 2275-4 #### [facility] CLIA [id number] [address] [place] [address] [place] Platelets (Bld) [#/Vol] 417 10*3/uL High 150-400 [facility] Comment on above: Order Comment: Speci men Type: BLOOD SPECIMEN Ordering Facility: [facility] Address: [address] [place] [address] Performed By: #### 2 4321-2, 92668-2, 08319-8, 2275-4 #### [facility] CLIA [id number] [address] [place] [address] [place] RBC (Bld) [#/Vol] 3.52 10*6/uL Low 4.20-6.00 [facility] Comment on above: Order Comment: Speci men Type: BLOOD SPECIMEN Ordering Facility: [facility] Address: [address] [place] [address] Performed By: #### 2 4321-2, 28296-0, 05150-4, 2275-4 #### [facility] CLIA [id number] [address] [place] [address] [place] WBC (Bld) [#/Vol] 13.40 10*3/uL High 3.70-11.00 [facility] Comment on above: Order Comment: Rody adams Type: BLOOD SPECIMEN Ordering Facility: [facility] Address: [facility] [place] [address] Performed By: #### 2 4321-2, 71473-2, 76297-0, 2276-4 #### [facility] CLIA [id number] [address] [place] [address] STATES OF [facility] CONSULT PROGon 10-26-2024 CONSULT PROG HNO ID: [id number] Author: MAUREEN SHERMAN RPh Service: Pharmacy Author Type: Pharmacist Type: Consult Progress Note Filed: 10/26/2024 12:05 Note Text: -- Attestation signed by Maureen Sherman RPh at 10/26/2024 12:05 PM Maureen Sherman RPh -- PHARMACY VANCOMYCIN DOSING NOTE Patient Name: Stevie Sanchez Admission Date: 10/24/2024 Date of Consult: 10/26/2024 Time of Consult: 10:26 AM Indication: Respiratory infection Goal Range: 15-20 mcg/mL RECOMMENDATIONS/PLAN: Pharmacy consulted for vancomycin dosing for Stevie Sanchez, a 74 year old male. 1. Patient [...] have any questions, please contact pharmacy at [phone]. Age: [age] year old Allergies: ALLERGIES No [...] Value 10/26/2024 0845 8.6 (L) Salma Zelaya rafaela [facility] HIV 1+2 Ab IA Qlon 5 HIV 1 and 2 Ab IA.rapid Nom (S/P/Bld) [facility] Comment on above: Order Comment: Speci men Type: BLOOD SPECIMEN Ordering Facility: [facility] Address: [address] [place] [address], [place] [address] Result Comment: Test not indicated. Performed By: #### 2 4321-2, 71790-8, 72479-0, 2275-4 #### [facility] CLIA [id number] [address] [place] [address] [place] HIV 1+2 Ab+HIV1 p24 Ag IA Ql Non-Reactive Normal Nonreactive [facility] Comment on above: Order Comment: Speci men Type: BLOOD SPECIMEN Ordering Facility: [facility] Address: [address] [place] [address] Performed By: #### 2 4321-2, 08426-0, 30530-6, 2275-4 #### [facility] CLIA [id number] [address] [place] [address] [place] HIV immunoassay testing algorithm interpretation (S/P/Bld) [Interp] Normal [facility] Comment on above: Order Comment: Speci men Type: BLOOD SPECIMEN Ordering Facility: [facility] Address: [address] [place] [address] Result Comment: No e vidence of HIV-1 or HIV-2 infection. Should recent infection be suspected, repeat testing may be considered 2-3 weeks after this draw. [place] Rev. Code 3701.243(E): This information has been [...] test results or diagnoses. Performed By: #### 2 4321-2, 96505-0, 63621-1, 2275-4 #### [facility] CLIA [id number] [address] [place] [address] [place] Magnesium SerPl-mCncon 10-26 Magnesium [Mass/Vol] 2.1 mg/dL Normal 1.7-2.3 [facility] Comment on above: Order Comment: Speci men Type: BLOOD SPECIMEN Ordering Facility: [facility] Address: [address] [place] [address] Performed By: #### 2 4321-2, 00967-0, , 2275-05 #### [facility] CLIA [id number] [address] [place] [address] [place] Vancomycin Phoenix SerPl-mCncon 10-26-2024 Vancomycin random [Mass/Vol] 8.6 ug/mL Low 10.0-20.0 [facility] Comment on above: Order Comment: Speci men Type: BLOOD SPECIMEN Ordering Facility: [facility] Address: [address] [place] [address] Result Comment: Refe rence ranges and high/low indicator flags are provided as general guidelines only. The treating physician must determine appropriate target levels/dosing based on the specific clinical situation. Performed By: #### 2 4321-2, 54225-0, , 2275-05 #### [facility] CLIA [id number] [address] [place] [address] [place] Bacteria Spec Resp Culton Bacteria identified Respiratory culture Nom (Unsp spec) ORGANISM ID: 1 Rare Escherichia coli Insignificant colony count. No further workup. ORGANISM ID: 3 Few normal respiratory neema GRAM STAIN: Rare Mixed oral neema Rare Polymorphonuclear leukocytes Abnormal [facility] Comment on above: Performed By: #### 3 2355-0 ####[facility] [id number] [place] [address] [place] Basic metabolic 2000 panelon 10-25-2024 Anion gap [Moles/Vol] 13 mmol/L Normal 8-15 [facility] Comment on above: Order Comment: Speci men Type: BLOOD SPECIMENOrdering Facility: [facility] Address: [address] [place] [address] Performed By: #### 3 3959-8, 92162-7, ####[facility] [id number] [place] [address] [place] Calcium [Mass/Vol] 8.7 mg/dL Normal 8.5-10.2 [facility] Comment on above: Order Comment: Speci men Type: BLOOD SPECIMENOrdering Facility: [facility] Address: [address] [place] [address] Performed By: #### 3 3959-8, 09149-6, ####[facility] [id number] [place] [address] [place] Chloride [Moles/Vol] 102 mmol/L Normal 98-107 [facility] Comment on above: Order Comment: Speci men Type: BLOOD SPECIMENOrdering Facility: [facility] Address: [address] [place] [address] Performed By: #### 3 3959-8, 81298-1, ####[facility] [id number] [place] [address] [place] CO2 [Moles/Vol] 24 mmol/L Normal 22-30 [facility] Comment on above: Order Comment: Speci men Type: BLOOD SPECIMENOrdering Facility: [facility] Address: [address] [place] [address] Performed By: #### 3 3959-8, 44591-6, ####[facility] [id number] [place] [address] [place] Creatinine [Mass/Vol] 0.70 mg/dL Low 0.73-1.22 [facility] Comment on above: Order Comment: Speci men Type: BLOOD SPECIMENOrdering Facility: [facility] Address: [address] [place] [address] Performed By: #### 3 3959-8, 33759-2, ####[facility] [id number] [address] [place] eGFRcr SerPlBld CKD-EPI 2020 98 mL/min/1.73m??? Normal >=60 [facility] Comment on above: Order Comment: Speci men Type: BLOOD SPECIMENOrdering Facility: [facility] Address: [address] [place] [address] Result Comment: Karon mated Glomerular Filtration Rate (eGFR) is calculated using the 2020 CKD-EPI creatinine equation. This equation utilizes serum creatinine, sex, and age as parameters. The creatinine assay has traceable calibration to isotope dilution-mass spectrometry. Refer to KDIGO guidelines for clinical interpretation. In patients with unstable renal function, e.g. those with acute kidney injury, the eGFR may not accurately reflect actual GFR. Performed By: #### 3 3959-8, 21426-3, ####[facility] [id number] [place] [address] [place] Glucose [Mass/Vol] 108 mg/dL High 74-99 [facility] Comment on above: Order Comment: Rody adams Type: BLOOD SPECIMENOrdering Facility: [facility] Address: [address] [place] [address] Result Comment: The [place] Diabetes Association (ADA) provides guidance for cutoff [...] Standards of Medical Care in Diabetes 2016, [place] [employer]. Diabetes Care. 2016.39(Suppl 1). Performed By: #### 3 3959-8, 96418-4, ####[facility] [id number] [place] [address] [place] Potassium [Moles/Vol] 4.8 mmol/L Normal 3.7-5.1 [facility] Comment on above: Order Comment: Rody adams Type: BLOOD SPECIMENOrdering Facility: [facility] Address: [address] [place] [address] Performed By: #### 3 3959-8, 15808-5, ####[facility] [id number] [place] [id number] [place] Sodium [Moles/Vol] 139 mmol/L Normal 136-144 [facility] Comment on above: Order Comment: Rody adams Type: BLOOD SPECIMENOrdering Facility: [facility] Address: [address] [place] [address] Performed By: #### 3 3959-8, 85338-4, 44368-6 ####[facility] [id number] [place] [address] [place] Urea nitrogen [Mass/Vol] 9 mg/dL Normal 9- [facility] Comment on above: Order Comment: Speci men Type: BLOOD SPECIMENOrdering Facility: [facility] Address: [address] [place] [address] Performed By: #### 3 3959-8, 48622-9, ####[facility] [id number] [place] [address] [place] CBC panel Auto (Bld)on 10-25 Erythrocyte distribution width (RBC) [Ratio] 14.6 % Normal 11.5-15.0 [facility] Comment on above: Order Comment: Speci men Type: BLOOD SPECIMEN Ordering Facility: [facility] Address: [address] [place] [address] Performed By: #### 2 4321-2, 50198-0, 00198-9, 2275-05 #### [facility] CLIA [id number] [address] Hematocrit (Bld) [Volume fraction] 37.7 % Low 39.0-51.0 [facility] Comment on above: Order Comment: Speci men Type: BLOOD SPECIMEN Ordering Facility: [facility] Address: [address] [place] [address] Performed By: #### 2 4321-2, 47362-5, 66190-2, 2275-4 #### [facility] CLIA [id number] [address] [place], [place] [address] [place] [address] [place] Hemoglobin (Bld) [Mass/Vol] 12.1 g/dL Low 13.0-17.0 [facility] Comment on above: Order Comment: Speci men Type: BLOOD SPECIMEN Ordering Facility: [facility] Address: [address] [place] [address] Performed By: #### 2 4321-2, 57343-3, 98971-2, 2275-4 #### [facility] CLIA [id number] [address] MCH (RBC) [Entitic mass] 31.1 pg Normal 26.0-34.0 [facility] Comment on above: Order Comment: Speci men Type: BLOOD SPECIMEN Ordering Facility: [facility] Address: [address] [place] [address] Performed By: #### 2 4321-2, 18332-1, 94842-9, 2275- #### [facility] CLIA [id number] [address] MCHC (RBC) [Mass/Vol] 32.1 g/dL Normal 30.5-36.0 [facility] Comment on above: Order Comment: Speci men Type: BLOOD SPECIMEN Ordering Facility: [facility] Address: [address] [place] [address] Performed By: #### 2 4321-2, 33744-0, 75730-7, 2275-05 #### [facility] CLIA [id number] [address] MCV (RBC) [Entitic vol] 96.9 fL Normal 80.0-100.0 [facility] Comment on above: Order Comment: Speci men Type: BLOOD SPECIMEN Ordering Facility: [facility] Address: [address] [place] [address] Performed By: #### 2 4321-2, 64655-8, 50376-6, 2275-05 #### [facility] CLIA [id number] [address] [place] Nucleated RBC (Bld) [#/Vol] 10*3/uL Normal <0.01 [facility] Comment on above: Order Comment: Speci men Type: BLOOD SPECIMEN Ordering Facility: [facility] Address: [address] [place] [address] Performed By: #### 2 4321-2, 35841-1, 49375-3, 2275-05 #### [facility] CLIA [id number] [address] Platelet mean volume (Bld) [Entitic vol] 8.7 fL Low 9.0-12.7 [facility] Comment on above: Order Comment: Speci men Type: BLOOD SPECIMEN Ordering Facility: [facility] Address: [address] [place] [address] Performed By: #### 2 4321-2, 04236-7, 82650-8, 6-4 #### [facility] CLIA [id number] [address] [place] [address] [place] Platelets (Bld) [#/Vol] 457 10*3/uL High 150-400 [facility] Comment on above: Order Comment: Speci men Type: BLOOD SPECIMEN Ordering Facility: [facility] Address: [address] [place] [address] Performed By: #### 2 4321-2, 76361-2, 72333-8, 2275-4 #### [facility] CLIA [id number] [address] [place] [address] [place] RBC (Bld) [#/Vol] 3.89 10*6/uL Low 4.20-6.00 [facility] Comment on above: Order Comment: Speci men Type: BLOOD SPECIMEN Ordering Facility: [facility] Address: [address] [place] [address] Performed By: #### 2 4321-2, 15581-2, 07267-1, 2275-4 #### [facility] CLIA [id number] [address] [place] [address] [place] WBC (Bld) [#/Vol] 19.10 10*3/uL High 3.70-11.00 [facility] Comment on above: Order Comment: Speci men Type: BLOOD SPECIMEN Ordering Facility: [facility] Address: [address] [place] [address] Performed By: #### 2 4321-2, 21435-2, 90984-6, 2275-4 #### [facility] CLIA [id number] [address] [place] [address] [place] CNPTOUTREACHon 10-25-2024 CNPTOUTREACH Normal [facility] CONSULTon 10-25-2024 CONSULT HNO ID: [id number] Author: ROBIN KNOX MD Service: Cardiovascular Medicine Author Type: Physician Type: Consults Filed: 10/25/2024 16:34 Note Text: . [facility] Department of Cardiovascular Medicine SECTION OF REGIONAL C[facility]Y/[facility] Consultation Note Name: Stevie Sanchez : 1950 Primary Physician: Praful Su MD Consulting Physician: aHile Robertson MD Primary Historical Guide: SERVICE DATE: October 25, 2024 ADMISSION HISTORY [...] hyperlipidemia Prostate cancer (HCC) 2020 xrt at [facility] [place] Smoker former quit 2021 Spinal stenosis of [...] g INTRAVENOUS q 6 H vancomycin iv pig (more content not included)... Normal [facility] CONSULT HNO ID: [id number] Author: WILLARD BRISCOE MD Service: Infectious Disease Author Type: Physician Type: Consults Filed: 10/25/2024 17:14 Note Text: INFECTIOUS DISEASE INITIAL CONSULT NOTE SERVICE DATE: 10/25/2024 SERVICE TIME: 3:06 PM REASON FOR CONSULT: Leukocytosis Subjective Patient is seen at the request of Dr. Robertson, Haile Schultz MD for my opinion regarding leukocytosis My final recommendations will be communicated back to the requesting physician by way of copy of this note or shared electronic medical record. HPI: Stevie Sanchez who is a 74 year old male [...] or weight loss. Denies the being in [place] [facility] or any exposures to TB. PAST MEDICAL HISTORY Diagnosis Date Abdominal aortic aneurysm without rupture Elevated PSA Hearing loss HTN (hypertension) Lumbosacral neuritis Malignant neoplasm of prostate (HCC) Other and unspecified hyperlipidemia Prostate cancer (HCC) 2020 xrt at [facility] [place] Smoker former quit 2021 Spinal stenosis of [...] COVID-19 original vaccine, age 12+ yr, monovalent (Grupanya - PURPLE TOP) 05/26/2020 06/17/2020 02/04/2021 COVID-19 vaccine, age 12+ yr (MODERNA) 02/06/2024 COVID-19 vaccine, age 12+ yr (Grupanya COMIRNATY) 02/14/2023 COVID-19 vaccine, age 12+ yr, bivalent (Grupanya) 12/28/2021 influenza (HD-IIV3) vaccine, age 65+ yr, [...] 3.375 g, INTRAVENOUS, EVERY 6 HOURS -- 09/28 (more content not included)... Normal [facility] CONSULT HNO ID: [id number] Author: DIA URENA MD Service: Pulmonary Disease Author Type: Physician Type: Consults Filed: 10/25/2024 14:57 Note Text: [facility] INITIAL CONSULTATION NOTE Patient Name: Stevie Sanchez REASON FOR CONSULT: lung cancer, large RUL cavitary lesion, REQUESTING PHYSICIAN: Haile Robertson MD ASSESSMENT: Enlarging RUL opacity with air fluid level possible lung cancer vs lung abscess Enlarged right paratracheal lymph node 12 mm H/o Lung cancer s/p RLL lobectomy SCC: 1. Enlarging/hypermetabolic/c avitary RUL nodule c/w NSCLC, sX3dW0Y4, Stage IA3, s/p SBRT 02/01/24 [3400 cGy/1 fx] 2. Hx of SCCa of the RLL, s/p robotic-assisted right lower lobectomy/RLL bronchoplasty closure, mediastinal/hilar LND on 11/15/23 (Dr. Lizama). Pathology showed a 2.4 cm focus of SCCa, margins-, 0/12 LN; pT1cN0 cM0). Ex smoker Other medical problems include: a fib with RVR, AAA w/o repair/rupture, afib (post op 11/20,not on AC) COPD, HLD, HTN, and prostate CA (s/p XRT) PLAN: Continue zosyn/vanc (bacterial serologies and MRSA pending) Sputum culture Bronchodilators with Duoneb as needed Plan [facility] for bronchoscopy, lung biopsy [...] lung mass HISTORY OF PRESENT ILLNESS: Stevie Sanchez is a 74 year old male, Ht [...] hyperlipidemia Prostate cancer (HCC) 2020 xrt at [facility] [place] Smoker former quit 2021 Spinal stenosis of [...] ALLERGIES No Known Allergies CURRENT OUTPATIENT MEDICATIONS: lisinopril-hydroCHLOROthia zide (ZESTORETIC) 20-12.5 mg per tabletTake 1 tablet [...] SKIN: Negative for lesions, rash, and itching. HEMATOLOGIC/LYMPHATIC/IMMU NOLOGIC: No easy bruising or swollen glands. ENDOCRINE: Negative for cold or heat intolerance, polyuria, polydipsia. See HPI The remainder of the ROS were reviewed and negative. Patient Vitals for the past 24 hrs: BP Temp Temp src Pulse Resp SpO2 Height Weight 10/25/24 0834 (more content not included)... Normal [facility] ECHOon 10-25-2024 Echocardiography Echocardiography Rep ort: Transthoracic Echo [facility] Date of service: 10/25/2024 9:35:22 AM Ordering physician: ANDERSON MARTINEZ Exam indication: Sustained atrial fibrillation Technologist: Tracey Howard RDCS Interpreting physician: Robin Knox MD PATIENT: Name: STEVIE SANCHEZ : 1950 Age: 74 years Gender: M [...] * * * Final * * * [employer] : [id number] Normal [facility] Lactate (Bld) [Moles/Vol]on 10-25-2024 Lactate [Moles/Vol] 2.0 mmol/L Normal 0.5-2.2 [facility] Comment on above: Order Comment: Rody adams Type: BLOOD SPECIMEN Ordering Facility: [facility] Address: [address] [place] [address] Performed By: #### 2 4321-2, 79860-4, 57319-0, 2275-05 #### [facility] CLIA [id number] [address] [place] [address] [place] Legionella Ag Ur Qlon 2024 Legionella sp Ag Ql (U) Negative Normal Negative [facility] Comment on above: Order Comment: Rody adams Type: BLOOD SPECIMEN Ordering Facility: [facility] Address: [address] [place] [address] Result Comment: Legi onella urinary antigen test is used as an aid in diagnosis of infection with Legionella pneumophila serogroup 1. It may be detected from a few days to several months after onset of signs and symptoms despite antibiotic therapy or disease resolution. A negative result cannot exclude Legionellosis. Clinical correlation is required. Performed By: #### 2 4321-2, 62838-9, 29086-7, 2275-4 #### [facility] CLIA [id number] [address] [place] [address] [place] MYCOPLASMA PNEUM PCRon 10-25 MYCOPLASMA PNEUM PCR SPECIMEN SOURCE (MYCPCR): Sputum MYCOPLASMA PNEUM DNA: Not Detected NOT DETECTED - A negative result does not rule out the presence of PCR inhibitors in the patient specimen or assay specific nucleic acid in concentrations below the level of detection by the assay. INTERPRETIVE INFORMATION: Mycoplasma pneumoniae by PCR This test was developed and its performance characteristics determined by [employer]. It has not been cleared or approved by the US Food and Drug Administration. This test was performed in a CLIA certified laboratory and is intended for clinical purposes. Performed By: [employer] [address] [place] [address] Lamination Inspector: Ethan Littlejohn MD, PhD CLIA Number: [id number] Normal [facility] Comment on above: Performed By: #### M YCPCR ####[facility] [id number] [place] [address] Magnesium SerPl-mCncon 10-25 Magnesium [Mass/Vol] 2.3 mg/dL Normal 1.7-2.3 [facility] Comment on above: Order Comment: Speci bryan Type: BLOOD SPECIMENOrdering Facility: [facility] Address: [address] [place] [address] Performed By: #### 3 3959-8, 01853-7, ####[facility] [id number] [place] [address] [place] NURSING PROGon 10-25-2024 NURSING PROG Normal [facility] Procalcitonin SerPl-mCncon 0 10-25-2024 Procalcitonin [Mass/Vol] 0.21 ng/mL High <0.09 [facility] Comment on above: Order Comment: Speci bryan Type: BLOOD SPECIMENOrdering Facility: [facility] Address: [address] [place] [address] Result Comment: For a guided interpretation of test results, please visit the Change in Procalcitonin Calculator, [email or web address]. Performed By: #### 3 3959-8, 46981-0, 79628-1 ####[facility] [id number] [place] [address] [place] STAPHYLOCOCCUS AUREUS AND MR SA SCREEN, PCR, NASALon 10-25-2024 S. aureus and MRSA panel WENDY+probe (Nose) Not detected Normal Not Detected [facility] Comment on above: Order Comment: Speci bryan Type: BLOOD SPECIMEN Ordering Facility: [facility] Address: [address] [place] [address] Performed By: #### 2 4321-2, 79944-4, 38143-1, 2276-4 #### [facility] CLIA [id number] [address] [place] [address] [place] STREPTOCOCCUS PNEUMONIAE ANT IGEN URINEon 10-25-2024 STREPTOCOCCUS PNEUMONIAE ANTIGEN URINE STREP PNEUMO AG RESULT: Negative for Streptococcus pneumoniae antigen. Presumptive negative for pneumococcal pneumonia, suggesting no current or recent pneumococcal infection. Infection due to S.pneumoniae cannot be ruled out since the antigen present in the sample may be below the detection limit of the test. [facility] Comment on above: Performed By: #### S PNAG ####[facility] LABCLIA [id number] [place] [address] [place] ALLIED HEALTHon 10-24-2024 ALLIED HEALTH HNO ID: [id number] Author: DEN GARCIA TECHNOLOGIST Service: Radiology Author Type: Technologist Type: Allied Health Filed: 10/24/2024 18:04 Note Text: Radiology Service Progress Note PATIENT NAME: Stevie Sanchez DATE OF SERVICE: October 24, 2024 TIME: [...] PATIENT PRESENTS WITH AN IMPLANTABLE OR ATTACHED BURRER MARKER AXLE: No RADIOLOGY DEPARTMENT: CT; Exam(s) Completed: PE Study. Anesthesia: No PERIPHERAL IV DATA: Inpatient: see LDA documentation SIGNED BY: TECHNOLOGIST Bettye October 24, 2024 6:04 PM [facility] Bacteria Bld Culton 10-25-19 25 Bacteria identified Cx Nom (Bld) CULTURE, BLOOD: No growth 5 days GRAM STAIN: This blood culture had less than the recommended 8 ml per bottle, which could decrease the sensitivity of the test. [facility] Comment on above: Performed By: #### 6 00-7 ####[facility] LABCLIA [id number] [place] [address] [place] Bacteria identified Cx Nom (Bld) CULTURE, BLOOD: No growth 5 days GRAM STAIN: This blood culture had less than the recommended 8 ml per bottle, which could decrease the sensitivity of the test. Normal [facility] Comment on above: Performed By: #### 6 00-7 ####[facility] LAB[facility]IA [id number] [place] [address] [place] CBC W Auto Differential pane l (Bld)on 10-24-2024 Basophils (Bld) [#/Vol] 0.09 10*3/uL Normal <0.11 [facility] Comment on above: Order Comment: Speci men Type: BLOOD SPECIMEN Ordering Facility: [facility] Address: [address] [place] [address] Performed By: #### 2 4321-2, 33197-5, 55986-9, 2275-4 #### [facility] CLIA [id number] [address] [place] [address] [place] Basophils/100 WBC (Bld) 0.7 % Normal [facility] Comment on above: Order Comment: Speci men Type: BLOOD SPECIMEN Ordering Facility: [facility] Address: [address] [place] [address] Performed By: #### 2 4321-2, 23003-0, 45745-4, 2275-4 #### [facility] CLIA [id number] [address] [place] [id number] [place] Differential cell count method Nom (Bld) Auto Normal [facility] Comment on above: Order Comment: Speci men Type: BLOOD SPECIMEN Ordering Facility: [facility] Address: [address] [place] [address] Performed By: #### 2 4321-2, 57630-1, 49538-7, 2275-4 #### [facility] CLIA [id number] [address] [place] [address] [place] Eosinophils (Bld) [#/Vol] 0.05 10*3/uL Normal <0.46 [facility] Comment on above: Order Comment: Speci men Type: BLOOD SPECIMEN Ordering Facility: [facility] Address: [address] [place] [address] Performed By: #### 2 4321-2, 80233-2, 61484-5, 2275-4 #### [facility] CLIA [id number] [address] [place] [address] [place] Eosinophils/100 WBC (Bld) 0.4 % Normal [facility] Comment on above: Order Comment: Speci men Type: BLOOD SPECIMEN Ordering Facility: [facility] Address: [address] [place] [address] Performed By: #### 2 4321-2, 43015-7, 83752-1, 2275-05 #### [facility] CLIA [id number] [address] [place] [address] [place] Erythrocyte distribution width (RBC) [Ratio] 14.4 % Normal 11.5-15.0 [facility] Comment on above: Order Comment: Speci men Type: BLOOD SPECIMEN Ordering Facility: [facility] Address: [address] [place] [address] Performed By: #### 2 4321-2, 52523-3, 00888-0, 2275-05 #### [facility] LABORATORY CLIA [id number] [address] [place] [address] [place] Hematocrit (Bld) [Volume fraction] 36.8 % Low 39.0-51.0 [facility] Comment on above: Order Comment: Speci men Type: BLOOD SPECIMEN Ordering Facility: [facility] Address: [address] [place] [address] Performed By: #### 2 4321-2, 10477-8, 17690-4, 2275-05 #### [facility] CLIA [id number] [address] [place] [address] [place] Hemoglobin (Bld) [Mass/Vol] 11.8 g/dL Low 13.0-17.0 [facility] Comment on above: Order Comment: Speci men Type: BLOOD SPECIMEN Ordering Facility: [facility] Address: [address] [place] [address] Performed By: #### 2 4321-2, 19056-3, 27289-0, 2275-4 #### [facility] CLIA [id number] [address] [place] [address] [place] Immature granulocytes (Bld) [#/Vol] 0.04 10*3/uL Normal <0.10 [facility] Comment on above: Order Comment: Speci men Type: BLOOD SPECIMEN Ordering Facility: [facility] Address: [address] [place] [address] Performed By: #### 2 4321-2, 92899-2, 13685-4, 2275-4 #### [facility] CLIA [id number] [address] [place] Immature granulocytes/100 WBC (Bld) 0.3 % Normal [facility] Comment on above: Order Comment: Speci men Type: BLOOD SPECIMEN Ordering Facility: [facility] Address: [address] [place] [address] Performed By: #### 2 4321-2, 39875-6, 25859-5, 2275-4 #### [facility] CLIA [id number] [address] [place] [address] [place] Lymphocytes (Bld) [#/Vol] 1.20 10*3/uL Normal 1.00-4.00 [facility] Comment on above: Order Comment: Speci men Type: BLOOD SPECIMEN Ordering Facility: [facility] Address: [address] [place] [address] Performed By: #### 2 4321-2, 84197-7, 29291-3, 2275-4 #### [facility] CLIA [id number] [address] [place] Lymphocytes/100 WBC (Bld) 9.9 % Normal [facility] Comment on above: Order Comment: Speci men Type: BLOOD SPECIMEN Ordering Facility: [facility] Address: [address] [place] [address] Performed By: #### 2 4321-2, 49064-9, 44496-8, 2276-4 #### [facility] CLIA [id number] [address] [place], [place] [address] [place] [address] [place] MCH (RBC) [Entitic mass] 30.7 pg Normal 26.0-34.0 [facility] Comment on above: Order Comment: Speci men Type: BLOOD SPECIMEN Ordering Facility: [facility] Address: [address] [place] [address] Performed By: #### 2 4321-2, 79138-7, , 2275-05 #### [facility] CLIA [id number] [address] MCHC (RBC) [Mass/Vol] 32.1 g/dL Normal 30.5-36.0 [facility] Comment on above: Order Comment: Speci men Type: BLOOD SPECIMEN Ordering Facility: [facility] Address: [address] [place] [address] Performed By: #### 2 4321-2, 11643-0, , 2275-05 #### [facility] CLIA [id number] [address] MCV (RBC) [Entitic vol] 95.8 fL Normal 80.0-100.0 [facility] Comment on above: Order Comment: Speci men Type: BLOOD SPECIMEN Ordering Facility: [facility] Address: [address] [place] [address] Performed By: #### 2 4321-2, 84697-7, , 2275-05 #### [facility] CLIA [id number] [address] [place] Monocytes (Bld) [#/Vol] 0.80 10*3/uL Normal <0.87 [facility] Comment on above: Order Comment: Speci men Type: BLOOD SPECIMEN Ordering Facility: [facility] Address: [address] [place] [address] Performed By: #### 2 4321-2, 85274-7, , 2275-05 #### [facility] CLIA [id number] [address] [place] [address] [place] Monocytes/100 WBC (Bld) 6.6 % Normal [facility] Comment on above: Order Comment: Speci men Type: BLOOD SPECIMEN Ordering Facility: [facility] Address: [address] [place] [address] Performed By: #### 2 4321-2, 02451-4, 61411-5, 2275-4 #### [facility] CLIA [id number] [address] [place] [address] [place] Neutrophils (Bld) [#/Vol] 9.89 10*3/uL High 1.45-7.50 [facility] Comment on above: Order Comment: Speci men Type: BLOOD SPECIMEN Ordering Facility: [facility] Address: [address] [place] [address] Performed By: #### 2 4321-2, 58295-7, 66903-8, 2275-05 #### [facility] CLIA [id number] [address] [place] [address] [place] Neutrophils/100 WBC (Bld) 82.1 % Normal [facility] Comment on above: Order Comment: Speci men Type: BLOOD SPECIMEN Ordering Facility: [facility] Address: [address] [place] [address] Performed By: #### 2 4321-2, 65940-1, , 2275-05 #### [facility] CLIA [id number] [address] [place] [address] [place] Nucleated RBC (Bld) [#/Vol] 10*3/uL Normal <0.01 [facility] Comment on above: Order Comment: Speci men Type: BLOOD SPECIMEN Ordering Facility: [facility] Address: [address] [place] [address] Performed By: #### 2 4321-2, 04458-4, 31678-9, 2275-05 #### [facility] CLIA [id number] [address] [place] [address] [place] [facility] [place] Nucleated RBC/100 WBC (Bld) [Ratio] 0.0 /100 WBC Normal [facility] Comment on above: Order Comment: Speci men Type: BLOOD SPECIMEN Ordering Facility: [facility] Address: [address] [place] [address] Performed By: #### 2 4321-2, 20349-7, 75575-5, 6-4 #### [facility] CLIA [id number] [address] [place] [address] [place] Platelet mean volume (Bld) [Entitic vol] 8.6 fL Low 9.0-12.7 [facility] Comment on above: Order Comment: Speci men Type: BLOOD SPECIMEN Ordering Facility: [facility] Address: [address] [place] [address] Performed By: #### 2 4321-2, 52517-0, 83074-4, 6-4 #### [facility] CLIA [id number] [address] [place], [place] [address] [place] [address] [place] Platelets (Bld) [#/Vol] 448 10*3/uL High 150-400 [facility] Comment on above: Order Comment: Speci men Type: BLOOD SPECIMEN Ordering Facility: [facility] Address: [address] [place] [address] Performed By: #### 2 4321-2, 98174-5, 35193-6, 6-4 #### [facility] CLIA [id number] [address] [place] [address] [place] RBC (Bld) [#/Vol] 3.84 10*6/uL Low 4.20-6.00 [facility] Comment on above: Order Comment: Speci men Type: BLOOD SPECIMEN Ordering Facility: [facility] Address: [address] [place] [address] Performed By: #### 2 4321-2, 05235-8, 90915-8, 6-4 #### [facility] CLIA [id number] [address] [place] [address] [facility] [place] WBC (Bld) [#/Vol] 12.07 10*3/uL High 3.70-11.00 [facility] Comment on above: Order Comment: Speci men Type: BLOOD SPECIMEN Ordering Facility: [facility] Address: [address] [place] [address] Performed By: #### 2 4321-2, 44822-9, 82668-2, 2276-4 #### [facility] IA [id number] [address] [place] [address] [place] CNOVon 10-24-2024 CNOV Normal [facility] CONSULT PROGon 10-24-2024 CONSULT PROG HNO ID: [id number] Author: MAUREEN SHERMAN RPh Service: Pharmacy Author Type: Pharmacist Type: Consult Progress Note Filed: 10/24/2024 20:45 Note Text: -- Attestation signed by Maureen Sherman RPh at 10/24/2024 8:45 PM Maureen Sherman RPh -- PHARMACY VANCOMYCIN DOSING NOTE Patient Name: Stevie Sanchez Admission Date: 10/24/2024 Date of Consult: 10/24/2024 Time of Consult: 8:19 PM Indication: Respiratory infection Goal Range: 15-20 mcg/mL RECOMMENDATIONS/PLAN: Pharmacy consulted for vancomycin dosing for Stevie Sanchez, a 74 year old male. 1. Patient [...] have any questions, please contact pharmacy at [phone]. Age: [age] year old Allergies: ALLERGIES No [...] Vancomycin Levels: No results found for: MACKENZIE Guerrero, [facility] CTA CHEST (NON GATED) W IVCO N PEon 10-24-2024 CTA CHEST (NON GATED) W IVCON PE * * *Final Report* * * DATE OF EXAM: Oct 24 2024 6:05PM [facility] 0564 - CTA CHEST (NON GATED) W [...] not excluded. Mediastinal lymphadenopathy may be reactive. Quantitative Equity Head: IMMANUEL Transcribe Date/Time: Oct 24 2024 6:55P Dictated by : BRIGIDA WEIR MD This examination was interpreted and the report reviewed and electronically signed by: BRIGIDA WEIR MD on Oct 24 2024 7:03PM EST [id number] Normal [facility] Comprehensive metabolic 2000 panelon 10-24-2024 Albumin [Mass/Vol] 2.8 g/dL Low 3.9-4.9 [facility] Comment on above: Order Comment: Speci men Type: BLOOD SPECIMEN Ordering Facility: [facility] Address: [address] [place] [address] Performed By: #### 2 4321-2, 45385-8, 53492-0, 6-4 #### [facility] CLIA [id number] [address] [place] [address] [place] ALP [Catalytic activity/Vol] 104 U/L Normal 38-113 [facility] Comment on above: Order Comment: Speci men Type: BLOOD SPECIMEN Ordering Facility: [facility] Address: [address] [place] [address] Performed By: #### 2 4321-2, 92162-1, 38714-6, 6-4 #### [facility] CLIA [id number] [address] [place] ALT [Catalytic activity/Vol] 52 U/L Normal 10-54 [facility] Comment on above: Order Comment: Speci men Type: BLOOD SPECIMEN Ordering Facility: [facility] Address: [address] [place] [address] Performed By: #### 2 4321-2, 96437-4, 80195-5, 6-4 #### [facility] CLIA [id number] [address] [place] [address] [place] Anion gap [Moles/Vol] 9 mmol/L Normal 8-15 [facility] Comment on above: Order Comment: Speci men Type: BLOOD SPECIMEN Ordering Facility: [facility] Address: [address] [place] [address] Performed By: #### 2 4321-2, 09418-2, 41014-7, 6-4 #### [facility] CLIA [id number] [address] [place] [address] [place] AST [Catalytic activity/Vol] 28 U/L Normal 14-40 [facility] Comment on above: Order Comment: Speci men Type: BLOOD SPECIMEN Ordering Facility: [facility] Address: [address] [place] [address] Performed By: #### 2 4321-2, 96521-8, 08482-0, 2275-4 #### [facility] CLIA [id number] [address] [place] [address] [place] Bilirubin [Mass/Vol] 0.3 mg/dL Normal 0.2-1.3 [facility] Comment on above: Order Comment: Speci men Type: BLOOD SPECIMEN Ordering Facility: [facility] Address: [address] [place] [address] Performed By: #### 2 4321-2, 03009-4, 55861-0, 2275-4 #### [facility] CLIA [id number] [address] [place] [address] [place] Calcium [Mass/Vol] 7.8 mg/dL Low 8.5-10.2 [facility] Comment on above: Order Comment: Speci men Type: BLOOD SPECIMEN Ordering Facility: [facility] Address: [address] [place] [address] Performed By: #### 2 4321-2, 17227-1, 71865-3, 2275-4 #### [facility] CLIA [id number] [address] [place] [address] [place] Chloride [Moles/Vol] 106 mmol/L Normal 98-107 [facility] Comment on above: Order Comment: Speci men Type: BLOOD SPECIMEN Ordering Facility: [facility] Address: [address] [place] [address] Performed By: #### 2 4321-2, 85988-3, 24328-7, 2275-4 #### [facility] CLIA [id number] [address] [place] [address] [place] CO2 [Moles/Vol] 25 mmol/L Normal 22-30 [facility] Comment on above: Order Comment: Speci men Type: BLOOD SPECIMEN Ordering Facility: [facility] Address: [address] [place], [place] [address] Performed By: #### 2 4321-2, 72104-6, 71888-1, 2275-4 #### [facility] CLIA [id number] [address] Creatinine [Mass/Vol] 0.45 mg/dL Low 0.73-1.22 [facility] Comment on above: Order Comment: Rody adams Type: BLOOD SPECIMEN Ordering Facility: [facility] Address: [address] [place] [address] Performed By: #### 2 4321-2, 83232-4, 07764-5, 2275-4 #### [facility] CLIA [id number] [address] [place] eGFRcr SerPlBld CKD-EPI 2020 112 mL/min/1.73m??? Normal >=60 [facility] Comment on above: Order Comment: Rody adams Type: BLOOD SPECIMEN Ordering Facility: [facility] Address: [address] [place] [address] Result Comment: Karon mated Glomerular Filtration Rate (eGFR) is calculated using the 2020 CKD-EPI creatinine equation. This equation utilizes serum creatinine, sex, and age as parameters. The creatinine assay has traceable calibration to isotope dilution-mass spectrometry. Refer to KDIGO guidelines for clinical interpretation. In patients with unstable renal function, e.g. those with acute kidney injury, the eGFR may not accurately reflect actual GFR. Performed By: #### 2 4321-2, 30041-1, 25708-5, 2275-4 #### [facility] CLIA [id number] [address] [place] Glucose [Mass/Vol] 91 mg/dL Normal 74-99 [facility] Comment on above: Order Comment: Rody adams Type: BLOOD SPECIMEN Ordering Facility: [facility] Address: [address] [place] [address] Result Comment: The [place] Diabetes Association (ADA) provides guidance for cutoff [...] Standards of Medical Care in Diabetes 2016, [place] [employer]. Diabetes Care. 2016.39(Suppl 1). Performed By: #### 2 4321-2, 20484-9, 35966-7, 2275-4 #### [facility] CLIA [id number] [address] [place] [address] [place] Potassium [Moles/Vol] 3.8 mmol/L Normal 3.7-5.1 [facility] Comment on above: Order Comment: Rody adams Type: BLOOD SPECIMEN Ordering Facility: [facility] Address: [address] [place] [address] Performed By: #### 2 4321-2, 43080-3, 45218-1, 2275-4 #### [facility] CLIA [id number] [address] [place] [address] [place] Protein [Mass/Vol] 6.0 g/dL Low 6.3-8.0 [facility] Comment on above: Order Comment: Rody adams Type: BLOOD SPECIMEN Ordering Facility: [facility] Address: [address] [place] [address] Performed By: #### 2 4321-2, 19559-8, 79762-4, 2275-4 #### [facility] CLIA [id number] [address] [place] [address] [place] Sodium [Moles/Vol] 140 mmol/L Normal 136-144 [facility] Comment on above: Order Comment: Rody adams Type: BLOOD SPECIMEN Ordering Facility: [facility] Address: [address] [place] [address] Performed By: #### 2 4321-2, 52589-5, 39204-5, 2275-4 #### [facility] CLIA [id number] [address] [place] [id number] [place] Urea nitrogen [Mass/Vol] 6 mg/dL Low 9-24 [facility] Comment on above: Order Comment: Speci men Type: BLOOD SPECIMEN Ordering Facility: [facility] Address: [place] [address] Performed By: #### 2 4321-2, 43449-3, 29776-7, 2276-4 #### [facility] CLIA [id number] [address] [place] [id number] [facility] ED NOTEon 10-24-2024 ED NOTE HNO ID: [id number] Author: JOSE ARMANDO CASSIDY RN Service: ? Author Type: Registered Nurse Type: ED Notes Filed: 10/24/2024 15:41 Note Text: Dr العراقي notified of [facility] ED NOTE HNO ID: [id number] Author: JOSE ARMANDO CASSIDY RN Service: ? Author Type: Registered Nurse Type: ED Notes Filed: 10/24/2024 15:30 Note Text: Bed: ED-02 Expected date: 10/24/24 Expected time: Means of arrival: Comments: [facility] ED PROV NOTEon 10-24-2024 ED PROV NOTE HNO ID: [id number] Author: HAILE VASQUEZ DO Service: Emergency Medicine Author Type: Physician Type: ED Provider Notes Filed: 10/24/2024 20:50 Note Text: ED Provider Note Patient Name: Stevie Sanchez : 1950 SERVICE DATE: 10/24/24 History Patient presents with: Palpitations: Pt presents to ED via EMS from Dr Rodriguez. Pt was tachycardic for office, found to be in SVT. 6mg and 12mg of adenosine was given by EMS. Pt converted, pt now in AFIB RVR. Pt has no complaints of chest pain or Shortness of Breath Stevie Sanchez is a 74-year-old male who is presenting [...] hyperlipidemia Prostate cancer (HCC) 2020 xrt at [facility] [place] Smoker former quit 2021 Spinal stenosis of [...] 8.6 (*) 9.0 - 12.7 fL Abs N (more content not included)... Normal [facility] EKGon 10-24-2024 Electrocardiogram Ventricular Rate : 1 11 BPM QRS Duration : 74 ms Q-T Interval : 336 ms QTC Calculation(Bazett) : 456 ms Calculated R Napanoch : 53 degrees Calculated T Napanoch : 34 degrees ATRIAL FIBRILLATION WITH RAPID VENTRICULAR RESPONSE WITH PREMATURE VENTRICULAR OR ABERRANTLY CONDUCTED COMPLEXES ABNORMAL ECG Confirmed by HAILE VASQUEZ DO ([id number]) on 10/24/2024 8:50:25 PM NAME : STEVIE SANCHEZ PID : [id number] : 1950 Gender : Male Race : ORD : Procedure Date : Oct 24 2024 15:32:23 Edit Date : Oct 24 2024 20:50:29 Diagnosis: ATRIAL FIBRILLATION WITH RAPID VENTRICULAR RESPONSE WITH PREMATURE VENTRICULAR OR ABERRANTLY CONDUCTED COMPLEXES ABNORMAL ECG Confirmed by HAILE VASQUEZ DO ([id number]) on 10/24/2024 8:50:25 PM Test Reason : Location : 1 : ER ED Overread By : HAILE VASQUEZ DO Edited By : HAILE VASQUEZ DO Referred By : , Acquired by : cc, Normal [facility] HIGH SENSITIVITY TROPONIN To n 10-24-2024 Troponin T.cardiac High sensitivity method [Mass/Vol] 39 ng/L High <[address] [place] [address] Comment on above: Order Comment: Rody adams Type: BLOOD SPECIMEN Ordering Facility: [facility] Address: [address] [place] [address] Performed By: #### 2 4321-2, 86819-9, 23279-2, 2275- #### [facility] CLIA [id number] [address] [place] [address] [place] HIGH SENSITIVITY TROPONIN T (INITIAL)on 10-24-2024 Troponin T.cardiac High sensitivity method [Mass/Vol] 35 ng/L High <[address] [place] [address] Comment on above: Order Comment: Rody adams Type: BLOOD SPECIMEN Ordering Facility: [facility] Address: [address] [place] [address] Performed By: #### 2 4321-2, 28814-4, 95540-1, 2275- #### [facility] CLIA [id number] [address] [place] [address] [place] HIGH SENSITIVITY TROPONIN T (SECOND)on 10-24-2024 Troponin T.cardiac High sensitivity method [Mass/Vol] 39 ng/L High <[address] [place] [address] Comment on above: Order Comment: Rody adams Type: BLOOD SPECIMEN Ordering Facility: [facility] Address: [address] [place] [address] Performed By: #### 2 4321-2, 75944-9, 53634-2, 2275- #### [facility] CLIA [id number] [address] [place] [address] [place] HISTORY PHYSICALon HISTORY PHYSICAL HNO ID: [id number] Author: ANDERSON MARTINEZ PA-C Service: Hospital Medicine Author Type: Physician Pattern Lease Inspector Type: H&P Filed: 10/24/2024 22:24 Note Text: -- Attestation signed by Loraine Grover MD at 10/24/2024 10:36 PM Reviewed the history and physical examination of the patient and discussed the management with the ANGELITO. I reviewed the note and agree with the documented findings and plan of care. Loraine Grover MD Department of Hospital Medicine DATE: October 24, 2024 TIME: 10:36 PM -- DEPARTMENT OF HOSPITAL MEDICINE HISTORY AND PHYSICAL EXAM SERVICE DATE: 10/24/2024 SERVICE TIME: 8:43 PM Primary Care Physician: Praful Su MD NIGHT AND WEEKEND COVERAGE: [facility] COVERAGE: Days: [phone], please page attending physician. Nights: [phone], please page [facility] Night coverage pager [phone]. Subjective CHIEF COMPLAINT: Elevated HR at PCP [...] Prostate cancer (HCC) 2020 xrt at [facility] [place] Smoker former quit 2021 Spinal stenosis of [...] CAPSULES BY MOUTH 3 TIMES A DAY lisinopril-hydroCHLOROthia zide (ZESTORETIC) 20-12.5 mg per tablet No No [...] sleep disturbance, mood disorder and recent psychosocial stresso (more content not included)... Normal [facility] Lipase [Catalytic activity/Vol] 19 U/L Normal 16-61 [facility] Comment on above: Order Comment: Speci men Type: BLOOD SPECIMEN Ordering Facility: [facility] Address: [address] [place] [address] Performed By: #### 2 4321-2, 00748-9, 56171-8, 2276-4 #### [facility] CLIA [id number] [address] [place] [address] [place] Magnesium SerPl-mCncon 10-24 Magnesium [Mass/Vol] 1.6 mg/dL Low 1.7-2.3 [facility] Comment on above: Order Comment: Speci men Type: BLOOD SPECIMEN Ordering Facility: [facility] Address: [address] [place], [place] [address] [address] Performed By: #### 2 4321-2, 16594-0, 05881-3, 2276-4 #### [facility] CLIA [id number] [address] [place] [address] [place] CNPNon 10-22-2024 CNPN Normal [facility] CNPTOUTREACHon 09-20-2024 CNPTOUTREACH Normal [facility] CNPTOUTREACHon 09-13-2024 CNPTOUTREACH Normal [facility] CNOVSPon 09-11-2024 CNOVSP Normal [facility] CNPTOUTREACHon 09-10-2024 CNPTOUTREACH Normal [facility] CNPTOUTREACHon 09-06-2024 CNPTOUTREACH Normal [facility] CNOVon 08-23-2024 CNOV Normal [facility] XR CHEST 2V FRONTAL/LATon XR CHEST 2V FRONTAL/LAT * * *Final Report* * * DATE [...] IMPRESSION: Resolution of right hydropneumothorax since 07/01/2024 Quantitative Equity Head: IMMANUEL Transcribe Date/Time: Aug 20 2024 11:10A Dictated by : IKE KERR MD This examination was interpreted and the report reviewed and electronically signed by: IKE KERR MD on Aug 20 2024 11:14AM EST [id number] [facility] CNPTOUTREACHon 07-12-2024 CNPTOUTREACH Normal [facility] CNOVon 2024 CNOV Normal [facility] XR CHEST 2V FRONTAL/LATon XR CHEST 2V FRONTAL/LAT Normal [facility] XR Chest PA and Lateralon IMPRESSION: No acute radiographic findings in the chest. Quantitative Equity Head: PSCHerbert Transcribe Date/Time: 2024 1:27P Dictated by : ALIYA BARRIENTOS MD This examination was interpreted and the report reviewed and electronically signed by: ALIYA BARRIENTOS MD on 2024 1:30PM EST DIVISION OF RADIOLOGY * * *Final Report* * * DATE OF EXAM: 2024 9:06AM JIX [id number] - XR CHEST 2V FRONTAL/LAT / PROCEDURE REASON: Other pneumothorax * * * * Physician Interpretation * * * * EXAMINATION: CHEST RADIOGRAPH (2 VIEW FRONTAL & LATERAL) CLINICAL HISTORY: Other pneumothorax MQ: XC2_6 [...] changes are present in the thoracic spine. DIVISION OF RADIOLOGY Provider, [facility] - 2024 * * *Final Report* * * DATE OF EXAM: 2024 9:06AM JISherry [id number] - XR CHEST 2V FRONTAL/LAT / PROCEDURE REASON: Other pneumothorax * * * * Physician Interpretation * * * * EXAMINATION: CHEST RADIOGRAPH (2 VIEW FRONTAL & LATERAL) CLINICAL HISTORY: Other pneumothorax MQ: XC2_6 [...] changes are present in the thoracic spine. IMPRESSION IMPRESSION: No acute radiographic findings in the chest. Quantitative Equity Head: IMMANUEL Transcribe Date/Time: 2024 1:27P Dictated by : ALIYA BARRIENTOS MD This examination was interpreted and the report reviewed and electronically signed by: ALIYA BARRIENTOS MD on 2024 1:30PM EST [facility] Radiology Study observation (narrative) [facility] XR Chest PA and LateralOrder ed By: [facility] Provider on [address] [facility] CNPTOUTREACHon 07-05-2024 CNPTOUTREACH Normal [facility] CNOVon 07-01-2024 CNOV Normal [facility] XR CHEST 2V FRONTAL/LATon XR CHEST 2V FRONTAL/LAT Normal [facility] XR CHEST 2V FRONTAL/LAT Normal [facility] XR Chest PA and Lateralon IMPRESSION: See result. 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 Lungs and pleura: Small right basal hydropneumothorax is present, unchanged. No new consolidations. No pulmonary edema. Cardiomediastinal silhouette: Stable cardiomediastinal silhouette. Bones and soft tissues: Unremarkable. 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 Lungs and pleura: Small right basal hydropneumothorax is present, unchanged. No new consolidations. No pulmonary edema. Cardiomediastinal silhouette: Stable cardiomediastinal silhouette. Bones and soft tissues: Unremarkable. IMPRESSION IMPRESSION: See result. Quantitative Equity Head: IMMANUEL Transcribe Date/Time: Jul 01 2024 12:42P Dictated by : IVON PEREIRA MD This examination was interpreted and the report reviewed and electronically signed by: IVON PEREIRA MD on Jul 01 2024 12:43PM [facility] Radiology Study observation (narrative) [facility] IMPRESSION: See result. 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 Lungs and pleura: There is again a loculated right basal hydropneumothorax. No new consolidations. No pulmonary edema. Cardiomediastinal silhouette: Stable cardiomediastinal silhouette. Bones and soft tissues: Unremarkable. 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 Lungs and pleura: There is again a loculated right basal hydropneumothorax. No new consolidations. No pulmonary edema. Cardiomediastinal silhouette: Stable cardiomediastinal silhouette. Bones and soft tissues: Unremarkable. IMPRESSION IMPRESSION: See result. Quantitative Equity Head: IMMANUEL Transcribe Date/Time: Jul 01 2024 10:40A Dictated by : IVON PEREIRA MD This examination was interpreted and the report reviewed and electronically signed by: IVON PEREIRA MD on Jul 01 2024 10:41AM EST [facility] Radiology Study observation (narrative) [facility] XR Chest PA and LateralOrder ed By: [facility] Provider on 07-01-2024 [facility] CNPTOUTREACHon 06-24-2024 CNPTOUTREACH Normal [facility] Basic metabolic 2000 panelon 06-23-2024 Anion gap [Moles/Vol] 12 mmol/L Normal 8-15 [facility] Comment on above: Order Comment: Speci men Type: BLOOD SPECIMENOrdering Facility: [facility] Address: [address] [place] [address] Performed By: #### 2 4321-2 ####[facility] LABCLIA [id number] [place] [address] [place] Calcium [Mass/Vol] 9.5 mg/dL Normal 8.5-10.2 [facility] Comment on above: Order Comment: Speci men Type: BLOOD SPECIMENOrdering Facility: [facility] Address: [address] [place] [address] Performed By: #### 2 4321-2 ####[facility] LABCLIA [id number] [place] [address] [place] Chloride [Moles/Vol] 105 mmol/L Normal 98-107 [facility] Comment on above: Order Comment: Speci men Type: BLOOD SPECIMENOrdering Facility: [facility] Address: [address] [place] [address] Performed By: #### 2 4321-2 ####[facility] LABCLIA [id number] [place] [id number] [place] CO2 [Moles/Vol] 25 mmol/L Normal 22-30 [facility] Comment on above: Order Comment: Speci men Type: BLOOD SPECIMENOrdering Facility: [facility] Address: [address] [place], [place] [address] Performed By: #### 2 4321-2 ####[facility] LABCLIA [id number] [place] [id number] [place] Creatinine [Mass/Vol] 0.59 mg/dL Low 0.73-1.22 [facility] Comment on above: Order Comment: Rody adams Type: BLOOD SPECIMENOrdering Facility: [facility] Address: [address] [place] [address] Performed By: #### 2 4321-2 ####[facility] [id number] [address] OF [facility] Creatinine and Glomerular filtration rate.predicted panel (S/P/Bld) 104 mL/min/1.73m??? Normal >=60 [facility] Comment on above: Order Comment: Rody adams Type: BLOOD SPECIMENOrdering Facility: [facility] Address: [address] [place] [address] Result Comment: Karon mated Glomerular Filtration Rate (eGFR) is calculated using the 2020 CKD-EPI creatinine equation. This equation utilizes serum creatinine, sex, and age as parameters. The creatinine assay has traceable calibration to isotope dilution-mass spectrometry. Refer to KDIGO guidelines for clinical interpretation. In patients with unstable renal function, e.g. those with acute kidney injury, the eGFR may not accurately reflect actual GFR. Performed By: #### 2 4321-2 ####[facility] LABIA [id number] [place] [address] [place] Glucose [Mass/Vol] 97 mg/dL Normal 74-99 [facility] Comment on above: Order Comment: Rody adams Type: BLOOD SPECIMENOrdering Facility: [facility] Address: [address] [place] [address] Result Comment: The [place] Diabetes [employer] (ADA) provides guidance for cutoff values for fasting glucose and random glucose. The ADA defines fasting as no caloric intake for at least 8 hours. Fasting plasma glucose results between 100 to 125 mg/dL indicate increased risk for diabetes (prediabetes).Fasting plasma glucose results greater than or equal to 126 mg/dL meet the criteria for diagnosis of diabetes. In the absence of unequivocal hyperglycemia, results should be confirmed by repeat testing. In a patient with classic symptoms of hyperglycemia or hyperglycemic crisis, random plasma glucose results greater than or equal to 200 mg/dL meet the criteria for diagnosis of diabetes.Reference: Standards of Medical Care in Diabetes 2016, [place] [employer]. Diabetes Care. 2016.39(Suppl 1). Performed By: #### 2 4321-2 ####[facility] LABCLIA [id number] [address] [address] [place] Potassium [Moles/Vol] 3.7 mmol/L Normal 3.7-5.1 [facility] Comment on above: Order Comment: Speci men Type: BLOOD SPECIMENOrdering Facility: [facility] Address: [address] [place] [address] Performed By: #### 2 4321-2 ####[facility] LABCLIA [id number] [address] [place] [address] [place] Sodium [Moles/Vol] 142 mmol/L Normal 136-144 [facility] Comment on above: Order Comment: Speci men Type: BLOOD SPECIMENOrdering Facility: [facility] Address: [address] [place] [address] Performed By: #### 2 4321-2 ####[facility] LABCLIA [id number] [address] [place] [address] [place] Urea nitrogen [Mass/Vol] 10 mg/dL Normal 9-24 [facility] Comment on above: Order Comment: Speci men Type: BLOOD SPECIMENOrdering Facility: [facility] Address: [address] [place] [address] Performed By: #### 2 4321-2 ####[facility] LABCLIA [id number] [address] [address] [place] CASE MANAGEMon 06-23-2024 CASE MANAGEM Normal [facility] CBC panel Auto (Bld)on 06-23 Erythrocyte distribution width (RBC) [Ratio] 14.4 % Normal 11.5-15.0 [facility] Comment on above: Order Comment: Speci men Type: BLOOD SPECIMENOrdering Facility: [facility] Address: [address] [place] [address] Performed By: #### 5 8410-2 ####[facility] LABIA [id number] [place] [address] [place] Hematocrit (Bld) [Volume fraction] 40.6 % Normal 39.0-51.0 [facility] Comment on above: Order Comment: Speci men Type: BLOOD SPECIMENOrdering Facility: [facility] Address: [address] [place] [address] Performed By: #### 5 8410-2 ####[facility] LABIA [id number] [place] [address] [place] Hemoglobin (Bld) [Mass/Vol] 13.6 g/dL Normal 13.0-17.0 [facility] Comment on above: Order Comment: Speci men Type: BLOOD SPECIMENOrdering Facility: [facility] Address: [address] [place] [address] Performed By: #### 5 8410-2 ####[facility] LABIA [id number] [place] [address] [place] MCH (RBC) [Entitic mass] 32.5 pg Normal 26.0-34.0 [facility] Comment on above: Order Comment: Speci men Type: BLOOD SPECIMENOrdering Facility: [facility] Address: [address] [place] [address] Performed By: #### 5 8410-2 ####[facility] LABIA [id number] [place] [id number] [place] MCHC (RBC) [Mass/Vol] 33.5 g/dL Normal 30.5-36.0 [facility] Comment on above: Order Comment: Speci men Type: BLOOD SPECIMENOrdering Facility: [facility] Address: [address] [place] [address] Performed By: #### 5 8410-2 ####[facility] LABCLIA [id number] [address] [place] [address] [place] MCV (RBC) [Entitic vol] 97.1 fL Normal 80.0-100.0 [facility] Comment on above: Order Comment: Speci men Type: BLOOD SPECIMENOrdering Facility: [facility] Address: [address] [place] [address] Performed By: #### 5 8410-2 ####[facility] LABIA [id number] [address], [place] [address] [place] Nucleated RBC (Bld) [#/Vol] 10*3/uL Normal <0.01 [facility] Comment on above: Order Comment: Speci men Type: BLOOD SPECIMENOrdering Facility: [facility] Address: [address] [place] [address] Performed By: #### 5 8410-2 ####[facility] LABIA [id number] [place] [address] [place] Platelet mean volume (Bld) [Entitic vol] 9.4 fL Normal 9.0-12.7 [facility] Comment on above: Order Comment: Speci men Type: BLOOD SPECIMENOrdering Facility: [facility] Address: [address] [place] [address] Performed By: #### 5 8410-2 ####[facility] LABIA [id number] [place] [address] [place] Platelets (Bld) [#/Vol] 224 10*3/uL Normal 150-400 [facility] Comment on above: Order Comment: Speci men Type: BLOOD SPECIMENOrdering Facility: [facility] Address: [address] [place] [address] Performed By: #### 5 8410-2 ####[facility] LABCLIA [id number] [place] [address] [place] RBC (Bld) [#/Vol] 4.18 10*6/uL Low 4.20-6.00 [facility] Comment on above: Order Comment: Speci men Type: BLOOD SPECIMENOrdering Facility: [facility] Address: [address] [place] [address] Performed By: #### 5 8410-2 ####[facility] LABCLIA [id number] [place] [address] [place] WBC (Bld) [#/Vol] 5.93 10*3/uL Normal 3.70-11.00 [facility] Comment on above: Order Comment: Speci men Type: BLOOD SPECIMENOrdering Facility: [facility] Address: [address] [place] [address] Performed By: #### 5 8410-2 ####[facility] LABCLIA [id number] [place] [address] [place] CNDSon 06-23-2024 CNDS Normal [facility] XR CHEST 1V FRONTAL PORTon 0 06-23-2024 XR CHEST 1V FRONTAL PORT Normal [facility] Basic metabolic 2000 panelon 06-22-2024 Anion gap [Moles/Vol] 15 mmol/L Normal 8-15 [facility] Comment on above: Order Comment: Speci men Type: BLOOD SPECIMENOrdering Facility: [facility] Address: [address] [place] [address] Performed By: #### 2 4321-2 ####[facility] LABCLIA [id number] [place] [id number] [place] Calcium [Mass/Vol] 9.0 mg/dL Normal 8.5-10.2 [facility] Comment on above: Order Comment: Speci men Type: BLOOD SPECIMENOrdering Facility: [facility] Address: [address] [place] [address] Performed By: #### 2 4321-2 ####[facility] LABCLIA [id number] [place] [id number] [place] Chloride [Moles/Vol] 105 mmol/L Normal 98-107 [facility] Comment on above: Order Comment: Speci men Type: BLOOD SPECIMENOrdering Facility: [facility] Address: [address] [place] [address] Performed By: #### 2 4321-2 ####[facility] LABIA [id number] [place] [id number] [place] CO2 [Moles/Vol] 21 mmol/L Low 22-30 [facility] Comment on above: Order Comment: Speci men Type: BLOOD SPECIMENOrdering Facility: [facility] Address: [address] [place] [address] Performed By: #### 2 4321-2 ####[facility]UN[facility] [id number] [address] [place] Creatinine [Mass/Vol] 0.51 mg/dL Low 0.73-1.22 [facility] Comment on above: Order Comment: Speci men Type: BLOOD SPECIMENOrdering Facility: [facility] Address: [address] [place] [address] Performed By: #### 2 4321-2 ####[facility] LABIA [id number] [address] STATES [facility] Creatinine and Glomerular filtration rate.predicted panel (S/P/Bld) 108 mL/min/1.73m??? Normal >=60 [facility] Comment on above: Order Comment: Speci men Type: BLOOD SPECIMENOrdering Facility: [facility] Address: [address] [place] [address] Result Comment: Karon mated Glomerular Filtration Rate (eGFR) is calculated using the 2020 CKD-EPI creatinine equation. This equation utilizes serum creatinine, sex, and age as parameters. The creatinine assay has traceable calibration to isotope dilution-mass spectrometry. Refer to KDIGO guidelines for clinical interpretation. In patients with unstable renal function, e.g. those with acute kidney injury, the eGFR may not accurately reflect actual GFR. Performed By: #### 2 4321-2 ####[facility] LABCLIA [id number] [address] [address] [place] Glucose [Mass/Vol] 86 mg/dL Normal 74-99 [facility] Comment on above: Order Comment: Speci men Type: BLOOD SPECIMENOrdering Facility: [facility] Address: [address] [place] [address] Result Comment: The [place] Diabetes [employer] (ADA) provides guidance for cutoff values for fasting glucose and random glucose. The ADA defines fasting as no caloric intake for at least 8 hours. Fasting plasma glucose results between 100 to 125 mg/dL indicate increased risk for diabetes (prediabetes).Fasting plasma glucose results greater than or equal to 126 mg/dL meet the criteria for diagnosis of diabetes. In the absence of unequivocal hyperglycemia, results should be confirmed by repeat testing. In a patient with classic symptoms of hyperglycemia or hyperglycemic crisis, random plasma glucose results greater than or equal to 200 mg/dL meet the criteria for diagnosis of diabetes.Reference: Standards of Medical Care in Diabetes 2016, [place] [employer]. Diabetes Care. 2016.39(Suppl 1). Performed By: #### 2 4321-2 ####[facility] LABCLIA [id number] [place] [address] [place] Potassium [Moles/Vol] 3.8 mmol/L Normal 3.7-5.1 [facility] Comment on above: Order Comment: Speci men Type: BLOOD SPECIMENOrdering Facility: [facility] Address: [address] [place], [place] [address] Performed By: #### 2 4321-2 ####[facility] LABCLIA [id number] [place] [id number] [place] Sodium [Moles/Vol] 141 mmol/L Normal 136-144 [facility] Comment on above: Order Comment: Speci men Type: BLOOD SPECIMENOrdering Facility: [facility] Address: [address] [place], [place] [address] Performed By: #### 2 4321-2 ####[facility] LABCLIA [id number] [place] [id number] [place] Urea nitrogen [Mass/Vol] 10 mg/dL Normal 9-24 [facility] Comment on above: Order Comment: Speci men Type: BLOOD SPECIMENOrdering Facility: [facility] Address: [address] [place] [address] Performed By: #### 2 4321-2 ####[facility] LABIA [id number] [address], [address] [place] CBC panel Auto (Bld)on 06-22 Erythrocyte distribution width (RBC) [Ratio] 14.6 % Normal 11.5-15.0 [facility] Comment on above: Order Comment: Speci men Type: BLOOD SPECIMENOrdering Facility: [facility] Address: [address] [place] [address] Performed By: #### 5 8410-2 ####[facility] LABIA [id number] [address], [address] [place] Hematocrit (Bld) [Volume fraction] 38.0 % Low 39.0-51.0 [facility] Comment on above: Order Comment: Speci men Type: BLOOD SPECIMENOrdering Facility: [facility] Address: [address] [place] [address] Performed By: #### 5 8410-2 ####[facility] LABIA [id number] [address], [place] [address] [place] Hemoglobin (Bld) [Mass/Vol] 12.7 g/dL Low 13.0-17.0 [facility] Comment on above: Order Comment: Speci men Type: BLOOD SPECIMENOrdering Facility: [facility] Address: [address] [place] [address] Performed By: #### 5 8410-2 ####[facility] LABCLIA [id number] [address], [facility] [place] MCH (RBC) [Entitic mass] 32.6 pg Normal 26.0-34.0 [facility] Comment on above: Order Comment: Speci men Type: BLOOD SPECIMENOrdering Facility: [facility] Address: [address] [place] [address] Performed By: #### 5 8410-2 ####[facility] [id number] [place] [address] [place] MCHC (RBC) [Mass/Vol] 33.4 g/dL Normal 30.5-36.0 [facility] Comment on above: Order Comment: Speci men Type: BLOOD SPECIMENOrdering Facility: [facility] Address: [address] [place] [address] Performed By: #### 5 8410-2 ####[facility] [id number] [place] [address] [place] MCV (RBC) [Entitic vol] 97.7 fL Normal 80.0-100.0 [facility] Comment on above: Order Comment: Speci men Type: BLOOD SPECIMENOrdering Facility: [facility] Address: [address] [place] [address] Performed By: #### 5 8410-2 ####[facility] [id number] [place] [address] [place] Nucleated RBC (Bld) [#/Vol] 10*3/uL Normal <0.01 [facility] Comment on above: Order Comment: Speci men Type: BLOOD SPECIMENOrdering Facility: [facility] Address: [address] [place] [address] Performed By: #### 5 8410-2 ####[facility] [id number] [place] [address] [place] Platelet mean volume (Bld) [Entitic vol] 9.4 fL Normal 9.0-12.7 [facility] Comment on above: Order Comment: Speci men Type: BLOOD SPECIMENOrdering Facility: [facility] Address: [address] [place], [place] [address] Performed By: #### 5 8410-2 ####[facility] LABCLIA [id number] [place] [address] [place] Platelets (Bld) [#/Vol] 178 10*3/uL Normal 150-400 [facility] Comment on above: Order Comment: Speci men Type: BLOOD SPECIMENOrdering Facility: [facility] Address: [address] [place] [address] Performed By: #### 5 8410-2 ####[facility] LABIA [id number] [place] [address] [place] RBC (Bld) [#/Vol] 3.89 10*6/uL Low 4.20-6.00 [facility] Comment on above: Order Comment: Speci men Type: BLOOD SPECIMENOrdering Facility: [facility] Address: [address] [place] [address] Performed By: #### 5 8410-2 ####[facility] LABIA [id number] [place] [id number] [place] WBC (Bld) [#/Vol] 5.90 10*3/uL Normal 3.70-11.00 [facility] Comment on above: Order Comment: Speci men Type: BLOOD SPECIMENOrdering Facility: [facility] Address: [address] [place] [address] Performed By: #### 5 8410-2 ####[facility] LABIA [id number] [place] [id number] [place] XR CHEST 1V FRONTAL PORTon 0 06-22-2024 XR CHEST 1V FRONTAL PORT Normal [facility] XR CHEST 2V FRONTAL/LATon XR CHEST 2V FRONTAL/LAT Normal [facility] Basic metabolic 2000 panelon 06-21-2024 Anion gap [Moles/Vol] 10 mmol/L Normal 8-15 [facility] Comment on above: Order Comment: Speci men Type: BLOOD SPECIMENOrdering Facility: [facility] Address: [address] [place], [place] [address] Performed By: #### 2 4321-2 ####[facility] LABCLIA [id number] [facility] [address] [address] [place] Calcium [Mass/Vol] 9.4 mg/dL Normal 8.5-10.2 [facility] Comment on above: Order Comment: Speci men Type: BLOOD SPECIMENOrdering Facility: [facility] Address: [address] [place] [address] Performed By: #### 2 4321-2 ####[facility] LABCLIA [id number] [facility] [address], [facility] [place] Chloride [Moles/Vol] 102 mmol/L Normal 98-107 [facility] Comment on above: Order Comment: Speci men Type: BLOOD SPECIMENOrdering Facility: [facility] Address: [address] [place] [address] Performed By: #### 2 4321-2 ####[facility] LABCLIA [id number] [facility] [place] [id number] [place] CO2 [Moles/Vol] 25 mmol/L Normal 22-30 [facility] Comment on above: Order Comment: Speci men Type: BLOOD SPECIMENOrdering Facility: [facility] Address: [address] [place], [place] [address] Performed By: #### 2 4321-2 ####[facility] LABCLIA [id number] [facility] [address] [place] [address] [place] Creatinine [Mass/Vol] 0.55 mg/dL Low 0.73-1.22 [facility] Comment on above: Order Comment: Speci men Type: BLOOD SPECIMENOrdering Facility: [facility] Address: [address] [place], [place] [address] Performed By: #### 2 4321-2 ####[facility] LABCLIA [id number] [place] [id number] [place] Creatinine and Glomerular filtration rate.predicted panel (S/P/Bld) 106 mL/min/1.73m??? Normal >=60 [facility] Comment on above: Order Comment: Vadimjoon adams Type: BLOOD SPECIMENOrdering Facility: [facility] Address: [address] [place] [address] Result Comment: Karon mated Glomerular Filtration Rate (eGFR) is calculated using the 2020 CKD-EPI creatinine equation. This equation utilizes serum creatinine, sex, and age as parameters. The creatinine assay has traceable calibration to isotope dilution-mass spectrometry. Refer to KDIGO guidelines for clinical interpretation. In patients with unstable renal function, e.g. those with acute kidney injury, the eGFR may not accurately reflect actual GFR. Performed By: #### 2 4321-2 ####[facility] LABCLIA [id number] [place] [address] [place] Glucose [Mass/Vol] 98 mg/dL Normal 74-99 [facility] Comment on above: Order Comment: Rody adams Type: BLOOD SPECIMENOrdering Facility: [facility] Address: [address] [place] [address] Result Comment: The [place] Diabetes [employer] (ADA) provides guidance for cutoff values for fasting glucose and random glucose. The ADA defines fasting as no caloric intake for at least 8 hours. Fasting plasma glucose results between 100 to 125 mg/dL indicate increased risk for diabetes (prediabetes).Fasting plasma glucose results greater than or equal to 126 mg/dL meet the criteria for diagnosis of diabetes. In the absence of unequivocal hyperglycemia, results should be confirmed by repeat testing. In a patient with classic symptoms of hyperglycemia or hyperglycemic crisis, random plasma glucose results greater than or equal to 200 mg/dL meet the criteria for diagnosis of diabetes.Reference: Standards of Medical Care in Diabetes 2016, [place] [employer]. Diabetes Care. 2016.39(Suppl 1). Performed By: #### 2 4321-2 ####[facility] LABCLIA [id number] [place] [id number] [place] Potassium [Moles/Vol] 4.0 mmol/L Normal 3.7-5.1 [facility] Comment on above: Order Comment: Speci men Type: BLOOD SPECIMENOrdering Facility: [facility] Address: [address] [place] [address] Performed By: #### 2 4321-2 ####[facility] LABCLIA [id number] [address] [address] [place] Sodium [Moles/Vol] 137 mmol/L Normal 136-144 [facility] Comment on above: Order Comment: Speci men Type: BLOOD SPECIMENOrdering Facility: [facility] Address: [address] [place] [address] Performed By: #### 2 4321-2 ####[facility] LABCLIA [id number] [place] [address] [place] Urea nitrogen [Mass/Vol] 11 mg/dL Normal 9-24 [facility] Comment on above: Order Comment: Speci men Type: BLOOD SPECIMENOrdering Facility: [facility] Address: [address] [place] [address] Performed By: #### 2 4321-2 ####[facility] LABIA [id number] [place] [address] [place] CBC panel Auto (Bld)on 06-21 Erythrocyte distribution width (RBC) [Ratio] 14.6 % Normal 11.5-15.0 [facility] Comment on above: Order Comment: Speci men Type: BLOOD SPECIMENOrdering Facility: [facility] Address: [address] [place] [address] Performed By: #### 5 8410-2 ####[facility] LABIA [id number] [place] [address] [place] Hematocrit (Bld) [Volume fraction] 40.7 % Normal 39.0-51.0 [facility] Comment on above: Order Comment: Speci men Type: BLOOD SPECIMENOrdering Facility: [facility] Address: [address] [place] [address] Performed By: #### 5 8410-2 ####[facility] LABCLIA [id number] [place] [address] [place] Hemoglobin (Bld) [Mass/Vol] 13.6 g/dL Normal 13.0-17.0 [facility] Comment on above: Order Comment: Speci men Type: BLOOD SPECIMENOrdering Facility: [facility] Address: [address] [place] [address] Performed By: #### 5 8410-2 ####[facility] LABIA [id number] [place] [address] [place] MCH (RBC) [Entitic mass] 32.8 pg Normal 26.0-34.0 [facility] Comment on above: Order Comment: Speci men Type: BLOOD SPECIMENOrdering Facility: [facility] Address: [address] [place] [address] Performed By: #### 5 8410-2 ####[facility] LABIA [id number] [place] [address] [place] MCHC (RBC) [Mass/Vol] 33.4 g/dL Normal 30.5-36.0 [facility] Comment on above: Order Comment: Speci men Type: BLOOD SPECIMENOrdering Facility: [facility] Address: [address] [place] [address] Performed By: #### 5 8410-2 ####[facility] LABIA [id number] [place] [address] [place] MCV (RBC) [Entitic vol] 98.1 fL Normal 80.0-100.0 [facility] Comment on above: Order Comment: Speci men Type: BLOOD SPECIMENOrdering Facility: [facility] Address: [address] [place] [address] Performed By: #### 5 8410-2 ####[facility] LABIA [id number] [place] [address] [place] Nucleated RBC (Bld) [#/Vol] 10*3/uL Normal <0.01 [facility] Comment on above: Order Comment: Speci men Type: BLOOD SPECIMENOrdering Facility: [facility] Address: [address] [place] [address] Performed By: #### 5 8410-2 ####[facility] LABCLIA [id number] [place] [address] [place] Platelet mean volume (Bld) [Entitic vol] 9.0 fL Normal 9.0-12.7 [facility] Comment on above: Order Comment: Speci men Type: BLOOD SPECIMENOrdering Facility: [facility] Address: [address] [place] [address] Performed By: #### 5 8410-2 ####[facility] LABCLIA [id number] [place] [address] [place] Platelets (Bld) [#/Vol] 209 10*3/uL Normal 150-400 [facility] Comment on above: Order Comment: Speci men Type: BLOOD SPECIMENOrdering Facility: [facility] Address: [address] [place] [address] Performed By: #### 5 8410-2 ####[facility] LABIA [id number] [place] [address] [place] RBC (Bld) [#/Vol] 4.15 10*6/uL Low 4.20-6.00 [facility] Comment on above: Order Comment: Speci men Type: BLOOD SPECIMENOrdering Facility: [facility] Address: [address] [place] [address] Performed By: #### 5 8410-2 ####[facility] LABCLIA [id number] [place] [address] [place] WBC (Bld) [#/Vol] 9.46 10*3/uL Normal 3.70-11.00 [facility] Comment on above: Order Comment: Speci men Type: BLOOD SPECIMENOrdering Facility: [facility] Address: [address] [place] [address] Performed By: #### 5 8410-2 ####[facility] LABCLIA [id number] [facility] [address] [place] [address] [place] XR CHEST 1V FRONTAL PORTon 0 06-21-2024 XR CHEST 1V FRONTAL PORT Normal [facility] Basic metabolic 2000 panelon 06-20-2024 Anion gap [Moles/Vol] 14 mmol/L Normal 8-15 [facility] Comment on above: Order Comment: Speci men Type: BLOOD SPECIMENOrdering Facility: [facility] Address: [address] [place] [address] Performed By: #### 2 4321-2 ####[facility] LABCLIA [id number] [place] [id number] [place] Calcium [Mass/Vol] 9.7 mg/dL Normal 8.5-10.2 [facility] Comment on above: Order Comment: Speci men Type: BLOOD SPECIMENOrdering Facility: [facility] Address: [address] [place] [address] Performed By: #### 2 4321-2 ####[facility] LABCLIA [id number] [address] [address] [place] Chloride [Moles/Vol] 100 mmol/L Normal 98-107 [facility] Comment on above: Order Comment: Speci men Type: BLOOD SPECIMENOrdering Facility: [facility] Address: [address] [place] [address] Performed By: #### 2 4321-2 ####[facility] LABCLIA [id number] [facility] [address] [place] [address] [place] CO2 [Moles/Vol] 24 mmol/L Normal 22-30 [facility] Comment on above: Order Comment: Speci men Type: BLOOD SPECIMENOrdering Facility: [facility] Address: [address] [place] [id number] Performed By: #### 2 4321-2 ####[facility] LABIA [id number] [place] [id number] [place] Creatinine [Mass/Vol] 0.51 mg/dL Low 0.73-1.22 [facility] Comment on above: Order Comment: Rody men Type: BLOOD SPECIMENOrdering Facility: [facility] Address: [address] [place] [address] Performed By: #### 2 4321-2 ####[facility] LABIA [id number] [place] [address] [place] Creatinine and Glomerular filtration rate.predicted panel (S/P/Bld) 108 mL/min/1.73m??? Normal >=60 [facility] Comment on above: Order Comment: Rody adams Type: BLOOD SPECIMENOrdering Facility: [facility] Address: [address] [place] [address] Result Comment: Karon mated Glomerular Filtration Rate (eGFR) is calculated using the 2020 CKD-EPI creatinine equation. This equation utilizes serum creatinine, sex, and age as parameters. The creatinine assay has traceable calibration to isotope dilution-mass spectrometry. Refer to KDIGO guidelines for clinical interpretation. In patients with unstable renal function, e.g. those with acute kidney injury, the eGFR may not accurately reflect actual GFR. Performed By: #### 2 4321-2 ####[facility] LABIA [id number] [place] [id number] [place] Glucose [Mass/Vol] 95 mg/dL Normal 74-99 [facility] Comment on above: Order Comment: Rody men Type: BLOOD SPECIMENOrdering Facility: [facility] Address: [address] [place] [address] Result Comment: The [place] Diabetes [employer] (ADA) provides guidance for cutoff values for fasting glucose and random glucose. The ADA defines fasting as no caloric intake for at least 8 hours. Fasting plasma glucose results between 100 to 125 mg/dL indicate increased risk for diabetes (prediabetes).Fasting plasma glucose results greater than or equal to 126 mg/dL meet the criteria for diagnosis of diabetes. In the absence of unequivocal hyperglycemia, results should be confirmed by repeat testing. In a patient with classic symptoms of hyperglycemia or hyperglycemic crisis, random plasma glucose results greater than or equal to 200 mg/dL meet the criteria for diagnosis of diabetes.Reference: Standards of Medical Care in Diabetes 2016, [place] [employer]. Diabetes Care. 2016.39(Suppl 1). Performed By: #### 2 4321-2 ####[facility] LABCLIA [id number] [address] [address] [place] Potassium [Moles/Vol] 4.9 mmol/L Normal 3.7-5.1 [facility] Comment on above: Order Comment: Vadimi men Type: BLOOD SPECIMENOrdering Facility: [facility] Address: [address] [place] [address] Performed By: #### 2 4321-2 ####[facility] LABIA [id number] [place] [id number] [place] Sodium [Moles/Vol] 138 mmol/L Normal 136-144 [facility] Comment on above: Order Comment: Rody adams Type: BLOOD SPECIMENOrdering Facility: [facility] Address: [address] [place] [address] Performed By: #### 2 4321-2 ####[facility] LABIA [id number] [place] [id number] [place] Urea nitrogen [Mass/Vol] 9 mg/dL Normal 9-24 [facility] Comment on above: Order Comment: Vadimi men Type: BLOOD SPECIMENOrdering Facility: [facility] Address: [address] [place] [address] Performed By: #### 2 4321-2 ####[facility] LABIA [id number] [address] [address] [place] CASE MGT INIT ASSESon 2024 CASE MGT INIT ASSES Normal [facility] CBC panel Auto (Bld)on 06-20 Erythrocyte distribution width (RBC) [Ratio] 14.5 % Normal 11.5-15.0 [facility] Comment on above: Order Comment: Speci men Type: BLOOD SPECIMENOrdering Facility: [facility] Address: [address] [place] [address] Performed By: #### 5 8410-2 ####[facility] LABIA [id number] [place] [address] [place] Hematocrit (Bld) [Volume fraction] 41.9 % Normal 39.0-51.0 [facility] Comment on above: Order Comment: Speci men Type: BLOOD SPECIMENOrdering Facility: [facility] Address: [address] [place] [address] Performed By: #### 5 8410-2 ####[facility] LABIA [id number] [place] [address] [place] Hemoglobin (Bld) [Mass/Vol] 13.8 g/dL Normal 13.0-17.0 [facility] Comment on above: Order Comment: Speci men Type: BLOOD SPECIMENOrdering Facility: [facility] Address: [address] [place] [address] Performed By: #### 5 8410-2 ####[facility] LABIA [id number] [place] [address] [place] MCH (RBC) [Entitic mass] 32.9 pg Normal 26.0-34.0 [facility] Comment on above: Order Comment: Speci men Type: BLOOD SPECIMENOrdering Facility: [facility] Address: [address] [place] [address] Performed By: #### 5 8410-2 ####[facility] LABIA [id number] [place] [address] [place] MCHC (RBC) [Mass/Vol] 32.9 g/dL Normal 30.5-36.0 [facility] Comment on above: Order Comment: Speci men Type: BLOOD SPECIMENOrdering Facility: [facility] Address: [address] [place] [address] Performed By: #### 5 8410-2 ####[facility] LABIA [id number] [place] [id number] [place] MCV (RBC) [Entitic vol] 99.8 fL Normal 80.0-100.0 [facility] Comment on above: Order Comment: Speci men Type: BLOOD SPECIMENOrdering Facility: [facility] Address: [address] [place] [address] Performed By: #### 5 8410-2 ####[facility]UN[facility] [id number] [place] [address] [place] Nucleated RBC (Bld) [#/Vol] 10*3/uL Normal <0.01 [facility] Comment on above: Order Comment: Speci men Type: BLOOD SPECIMENOrdering Facility: [facility] Address: [address] [place] [address] Performed By: #### 5 8410-2 ####[facility] [id number] [place] [address] [place] Platelet mean volume (Bld) [Entitic vol] 9.0 fL Normal 9.0-12.7 [facility] Comment on above: Order Comment: Speci men Type: BLOOD SPECIMENOrdering Facility: [facility] Address: [address] [place] [address] Performed By: #### 5 8410-2 ####[facility] LABIA [id number] [place] [id number] [place] Platelets (Bld) [#/Vol] 222 10*3/uL Normal 150-400 [facility] Comment on above: Order Comment: Speci men Type: BLOOD SPECIMENOrdering Facility: [facility] Address: [address] [place] [address] Performed By: #### 5 8410-2 ####[facility] LABCLIA [id number] [place] [address] [place] RBC (Bld) [#/Vol] 4.20 10*6/uL Normal 4.20-6.00 [facility] Comment on above: Order Comment: Speci men Type: BLOOD SPECIMENOrdering Facility: [facility] Address: [address] [place] [address] Performed By: #### 5 8410-2 ####[facility] LABCLIA [id number] [place] [address] [place] WBC (Bld) [#/Vol] 11.36 10*3/uL High 3.70-11.00 [facility] Comment on above: Order Comment: Speci men Type: BLOOD SPECIMENOrdering Facility: [facility] Address: [address] [place] [address] Performed By: #### 5 8410-2 ####[facility] LABCLIA [id number] [place] [address] [place] CNPTOUTREACHon 06-20-2024 CNPTOUTREACH Normal [facility] XR CHEST 1V FRONTAL PORTon 0 06-20-2024 XR CHEST 1V FRONTAL PORT Normal [facility] ANES POSTPROC EVALon 025 ANES POSTPROC EVAL Normal [facility] ANES PRE-OPon 06-19-2024 ANES PRE-OP Normal [facility] BRIEF OP NOTon 06-19-2024 BRIEF OP NOT Normal [facility] OPERATIVE NOon 06-19-2024 OPERATIVE NO Normal [facility] XR CHEST 1V FRONTAL PORTon 0 06-19-2024 XR CHEST 1V FRONTAL PORT Normal [facility] CNOVon 06-18-2024 CNOV Normal [facility] US ABD AORTA COMPLETE VAS LA Bon 06-18-2024 US ABD AORTA COMPLETE VAS LAB Normal [facility] CNOVon 06-13-2024 CNOV Normal [facility] CBC W Auto Differential pane l (Bld)on 06-07-2024 Basophils (Bld) [#/Vol] 0.11 10*3/uL High <0.11 [facility] Comment on above: Order Comment: Speci men Type: BLOOD SPECIMENOrdering Facility: [facility] Address: [address] [place] [address] Performed By: #### 5 7021-8 ####[facility] LABCLIA [id number] [facility] [address], [place] [address] [place] Basophils/100 WBC (Bld) 1.6 % Normal [facility] Comment on above: Order Comment: Speci men Type: BLOOD SPECIMENOrdering Facility: [facility] Address: [address] [place] [address] Performed By: #### 5 7021-8 ####[facility] LABCLIA [id number] [facility] [place] [address] [place] Differential cell count method Nom (Bld) Auto Normal [facility] Comment on above: Order Comment: Speci men Type: BLOOD SPECIMENOrdering Facility: [facility] Address: [address] [place] [address] Performed By: #### 5 7021-8 ####[facility] LABCLIA [id number] [place] [address] [place] Eosinophils (Bld) [#/Vol] 0.17 10*3/uL Normal <0.46 [facility] Comment on above: Order Comment: Speci men Type: BLOOD SPECIMENOrdering Facility: [facility] Address: [address] [place] [address] Performed By: #### 5 7021-8 ####[facility] LABCLIA [id number] [place] [address] [place] Eosinophils/100 WBC (Bld) 2.4 % Normal [facility] Comment on above: Order Comment: Speci men Type: BLOOD SPECIMENOrdering Facility: [facility] Address: [address] [place] [address] Performed By: #### 5 7021-8 ####[facility] LABCLIA [id number] [place] [address] [place] Erythrocyte distribution width (RBC) [Ratio] 14.4 % Normal 11.5-15.0 [facility] Comment on above: Order Comment: Speci men Type: BLOOD SPECIMENOrdering Facility: [facility] Address: [address] [place] [address] Performed By: #### 5 7021-8 ####[facility] LABIA [id number] [place] [address] [place] Hematocrit (Bld) [Volume fraction] 49.1 % Normal 39.0-51.0 [facility] Comment on above: Order Comment: Speci men Type: BLOOD SPECIMENOrdering Facility: [facility] Address: [address] [place] [address] Performed By: #### 5 7021-8 ####[facility] LABIA [id number] [place] [address] [place] Hemoglobin (Bld) [Mass/Vol] 15.9 g/dL Normal 13.0-17.0 [facility] Comment on above: Order Comment: Speci men Type: BLOOD SPECIMENOrdering Facility: [facility] Address: [address] [place] [address] Performed By: #### 5 7021-8 ####[facility] LABIA [id number] [place] [address] [place] Immature granulocytes (Bld) [#/Vol] 0.03 10*3/uL Normal <0.10 [facility] Comment on above: Order Comment: Speci men Type: BLOOD SPECIMENOrdering Facility: [facility] Address: [address] [place] [address] Performed By: #### 5 7021-8 ####[facility] LABCLIA [id number] [place] [id number] [place] Immature granulocytes/100 WBC (Bld) 0.4 % Normal [facility] Comment on above: Order Comment: Speci men Type: BLOOD SPECIMENOrdering Facility: [facility] Address: [address] [place] [address] Performed By: #### 5 7021-8 ####[facility] LABCLIA [id number] [place] [address] [place] Lymphocytes (Bld) [#/Vol] 1.22 10*3/uL Normal 1.00-4.00 [facility] Comment on above: Order Comment: Speci men Type: BLOOD SPECIMENOrdering Facility: [facility] Address: [address] [place] [address] Performed By: #### 5 7021-8 ####[facility] LABCLIA [id number] [place] [address] [place] Lymphocytes/100 WBC (Bld) 17.5 % Normal [facility] Comment on above: Order Comment: Speci men Type: BLOOD SPECIMENOrdering Facility: [facility] Address: [address] [place] [address] Performed By: #### 5 7021-8 ####[facility] LABCLIA [id number] [place] [address] [place] MCH (RBC) [Entitic mass] 32.1 pg Normal 26.0-34.0 [facility] Comment on above: Order Comment: Speci men Type: BLOOD SPECIMENOrdering Facility: [facility] Address: [address] [place], [place] [address] Performed By: #### 5 7021-8 ####[facility] LABCLIA [id number] [place] [id number] [place] MCHC (RBC) [Mass/Vol] 32.4 g/dL Normal 30.5-36.0 [facility] Comment on above: Order Comment: Speci men Type: BLOOD SPECIMENOrdering Facility: [facility] Address: [address] [place] [address] Performed By: #### 5 7021-8 ####[facility] LABCLIA [id number] [place] [address] [place] MCV (RBC) [Entitic vol] 99.2 fL Normal 80.0-100.0 [facility] Comment on above: Order Comment: Speci men Type: BLOOD SPECIMENOrdering Facility: [facility] Address: [address] [place] [address] Performed By: #### 5 7021-8 ####[facility] LABCLIA [id number] [place] [address] [place] Monocytes (Bld) [#/Vol] 0.79 10*3/uL Normal <0.87 [facility] Comment on above: Order Comment: Speci men Type: BLOOD SPECIMENOrdering Facility: [facility] Address: [address] [place] [address] Performed By: #### 5 7021-8 ####[facility] LABCLIA [id number] [place] [address] [place] Monocytes/100 WBC (Bld) 11.3 % Normal [facility] Comment on above: Order Comment: Speci men Type: BLOOD SPECIMENOrdering Facility: [facility] Address: [address] [place] [address] Performed By: #### 5 7021-8 ####[facility] LABCLIA [id number] [place] [id number] [place] Neutrophils (Bld) [#/Vol] 4.66 10*3/uL Normal 1.45-7.50 [facility] Comment on above: Order Comment: Speci men Type: BLOOD SPECIMENOrdering Facility: [facility] Address: [address] [place] [address] Performed By: #### 5 7021-8 ####[facility] LABCLIA [id number] [place] [address] [place] Neutrophils/100 WBC (Bld) 66.8 % Normal [facility] Comment on above: Order Comment: Speci men Type: BLOOD SPECIMENOrdering Facility: [facility] Address: [address] [place] [address] Performed By: #### 5 7021-8 ####[facility] LABCLIA [id number] [place] [address] [place] Nucleated RBC (Bld) [#/Vol] 10*3/uL Normal <0.01 [facility] Comment on above: Order Comment: Speci men Type: BLOOD SPECIMENOrdering Facility: [facility] Address: [address] [place] [address] Performed By: #### 5 7021-8 ####[facility] LABIA [id number] [place] [address] [place] Nucleated RBC/100 WBC (Bld) [Ratio] 0.0 /100 WBC Normal [facility] Comment on above: Order Comment: Speci men Type: BLOOD SPECIMENOrdering Facility: [facility] Address: [address] [place] [address] Performed By: #### 5 7021-8 ####[facility] LABIA [id number] [place] [address] [place] Platelet mean volume (Bld) [Entitic vol] 8.9 fL Low 9.0-12.7 [facility] Comment on above: Order Comment: Speci men Type: BLOOD SPECIMENOrdering Facility: [facility] Address: [address] [place] [address] Performed By: #### 5 7021-8 ####[facility] LABCLIA [id number] [place] [address] [place] Platelets (Bld) [#/Vol] 244 10*3/uL Normal 150-400 [facility] Comment on above: Order Comment: Speci men Type: BLOOD SPECIMENOrdering Facility: [facility] Address: [address] [place] [address] Performed By: #### 5 7021-8 ####[facility] LABCLIA [id number] [address] [address] [place] RBC (Bld) [#/Vol] 4.95 10*6/uL Normal 4.20-6.00 [facility] Comment on above: Order Comment: Speci men Type: BLOOD SPECIMENOrdering Facility: [facility] Address: [address] [place] [address] Performed By: #### 5 7021-8 ####[facility] LABIA [id number] [address] [address] [place] WBC (Bld) [#/Vol] 6.98 10*3/uL Normal 3.70-11.00 [facility] Comment on above: Order Comment: Speci men Type: BLOOD SPECIMENOrdering Facility: [facility] Address: [address] [place] [address] Performed By: #### 5 7021-8 ####[facility] LABIA [id number] [address] [address] [place] CNOVon 06-07-2024 CNOV Normal [facility] CNOV Normal [facility] Comprehensive metabolic 2000 panelon 06-07-2024 Albumin [Mass/Vol] 4.6 g/dL Normal 3.9-4.9 [facility] Comment on above: Order Comment: Speci men Type: BLOOD SPECIMENOrdering Facility: [facility] Address: [address] [place] [address] Performed By: #### 2 4323-8 ####[facility] LABIA [id number] [address] [address] [place] ALP [Catalytic activity/Vol] 85 U/L Normal 38-113 [facility] Comment on above: Order Comment: Speci men Type: BLOOD SPECIMENOrdering Facility: [facility] Address: [address] [place] [id number] Performed By: #### 2 4323-8 ####[facility] LABCLIA [id number] [address] [place] [address] [place] ALT [Catalytic activity/Vol] 24 U/L Normal 10-54 [facility] Comment on above: Order Comment: Speci men Type: BLOOD SPECIMENOrdering Facility: [facility] Address: [address] [place] [address] Performed By: #### 2 4323-8 ####[facility] LABCLIA [id number] [address], [facility] [place] Anion gap [Moles/Vol] 11 mmol/L Normal 8-15 [facility] Comment on above: Order Comment: Speci men Type: BLOOD SPECIMENOrdering Facility: [facility] Address: [address] [place] [address] Performed By: #### 2 4323-8 ####[facility] LABCLIA [id number] [address], [facility] [place] AST [Catalytic activity/Vol] 19 U/L Normal 14-40 [facility] Comment on above: Order Comment: Speci men Type: BLOOD SPECIMENOrdering Facility: [facility] Address: [address] [place] [address] Performed By: #### 2 4323-8 ####[facility] LABCLIA [id number] [facility] [address] [place] [address] [place] Bilirubin [Mass/Vol] 0.7 mg/dL Normal 0.2-1.3 [facility] Comment on above: Order Comment: Speci men Type: BLOOD SPECIMENOrdering Facility: [facility] Address: [address] [place], [place] [address] Performed By: #### 2 4323-8 ####[facility] LABCLIA [id number] [facility] [address] [place] Calcium [Mass/Vol] 10.1 mg/dL Normal 8.5-10.2 [facility] Comment on above: Order Comment: Speci men Type: BLOOD SPECIMENOrdering Facility: [facility] Address: [address] [place] [address] Performed By: #### 2 4323-8 ####[facility] LABCLIA [id number] [place] [address] [place] Chloride [Moles/Vol] 101 mmol/L Normal 98-107 [facility] Comment on above: Order Comment: Speci men Type: BLOOD SPECIMENOrdering Facility: [facility] Address: [address] [place] [address] Performed By: #### 2 4323-8 ####[facility] LABCLIA [id number] [place] [address] [place] CO2 [Moles/Vol] 28 mmol/L Normal 22-30 [facility] Comment on above: Order Comment: Speci men Type: BLOOD SPECIMENOrdering Facility: [facility] Address: [address] [place] [address] Performed By: #### 2 4323-8 ####[facility] LABCLIA [id number] [place] [address] [place] Creatinine [Mass/Vol] 0.55 mg/dL Low 0.73-1.22 [facility] Comment on above: Order Comment: Speci men Type: BLOOD SPECIMENOrdering Facility: [facility] Address: [address] [place] [address] Performed By: #### 2 4323-8 ####[facility] LABCLIA [id number] [place] [address] [place] Creatinine and Glomerular filtration rate.predicted panel (S/P/Bld) 106 mL/min/1.73m??? Normal >=60 [facility] Comment on above: Order Comment: Speci men Type: BLOOD SPECIMENOrdering Facility: [facility] Address: [address] [place] [address] Result Comment: Karon mated Glomerular Filtration Rate (eGFR) is calculated using the 2020 CKD-EPI creatinine equation. This equation utilizes serum creatinine, sex, and age as parameters. The creatinine assay has traceable calibration to isotope dilution-mass spectrometry. Refer to KDIGO guidelines for clinical interpretation. In patients with unstable renal function, e.g. those with acute kidney injury, the eGFR may not accurately reflect actual GFR. Performed By: #### 2 4323-8 ####[facility] LABIA [id number] [place] [address] [place] Glucose [Mass/Vol] 127 mg/dL High 74-99 [facility] Comment on above: Order Comment: Rody adams Type: BLOOD SPECIMENOrdering Facility: [facility] Address: [address] [place] [address] Result Comment: The [place] [employer] (ADA) provides guidance for cutoff values for fasting glucose and random glucose. The ADA defines fasting as no caloric intake for at least 8 hours. Fasting plasma glucose results between 100 to 125 mg/dL indicate increased risk for diabetes (prediabetes).Fasting plasma glucose results greater than or equal to 126 mg/dL meet the criteria for diagnosis of diabetes. In the absence of unequivocal hyperglycemia, results should be confirmed by repeat testing. In a patient with classic symptoms of hyperglycemia or hyperglycemic crisis, random plasma glucose results greater than or equal to 200 mg/dL meet the criteria for diagnosis of diabetes.Reference: Standards of Medical Care in Diabetes 2016, [place] [employer]. Diabetes Care. 2016.39(Suppl 1). Performed By: #### 2 4323-8 ####[facility] LABIA [id number] [place] [id number] [place] Potassium [Moles/Vol] 4.5 mmol/L Normal 3.7-5.1 [facility] Comment on above: Order Comment: Rody adams Type: BLOOD SPECIMENOrdering Facility: [facility] Address: [address] [place] [address] Performed By: #### 2 4323-8 ####[facility] LABCLIA [id number] [place] [address] [place] Protein [Mass/Vol] 7.4 g/dL Normal 6.3-8.0 [facility] Comment on above: Order Comment: Speci men Type: BLOOD SPECIMENOrdering Facility: [facility] Address: [address] [place] [address] Performed By: #### 2 4323-8 ####[facility] LABIA [id number] [place] [address] [place] Sodium [Moles/Vol] 140 mmol/L Normal 136-144 [facility] Comment on above: Order Comment: Speci men Type: BLOOD SPECIMENOrdering Facility: [facility] Address: [address] [place] [address] Performed By: #### 2 4323-8 ####[facility] LABIA [id number] [place] [address] [place] Urea nitrogen [Mass/Vol] 6 mg/dL Low 9-24 [facility] Comment on above: Order Comment: Speci men Type: BLOOD SPECIMENOrdering Facility: [facility] Address: [address] [place] [address] Performed By: #### 2 4323-8 ####[facility] LABIA [id number] [place] [address] [place] PT panel Coag (PPP)on 2024 INR Coag (PPP) [Relative time] 1.1 {INR} Normal 0.9-1.3 [facility] Comment on above: Order Comment: Speci men Type: BLOOD SPECIMENOrdering Facility: [facility] Address: [address] [place] [address] Result Comment: Mita min K Antagonist (VKA) Therapeutic Range: INR 2 to 3 (Target INR of 2.5)Note: For patients treated with VKA drugs, such as warfarin, the [place] [employer] 2012 Guideline recommends a therapeutic INR range of 2 to 3 (target INR of 2.5). This recommendation includes high-risk patients with antiphospholipid syndrome with previous arterial or venous thromboembolism, current-generation mechanical or bioprosthetic aortic heart valve replacement.Note: Patients with mechanical aortic valve replacement and additional risk factors for thromboembolic events (atrial fibrillation, previous thromboembolism, LV dysfunction, hypercoagulable conditions) or an older generation mechanical AVR (i.e., ball in-Cage) or any mechanical MVR should have a INR therapeutic range of 2.5 to 3.5 (target INR of 3).Etienne GH, et al. Chest 2012, 141:7S-47SNishimura RA, et al. [facility] 2017, 70: 252-289 Performed By: #### 3 4528-0, 57621-3 ####[facility] LABIA [id number] [place] [address] [place] PT Coag (PPP) [Time] 11.5 s Normal 9.7-13.0 [facility] Comment on above: Order Comment: Speci men Type: BLOOD SPECIMENOrdering Facility: [facility] Address: [address] [place] [address] Performed By: #### 3 4528-0, 53451-2 ####[facility] [id number] [place] [address] [place] STAPHYLOCOCCUS AUREUS AND MR SA SCREEN, PCR, NASALon 06-07-2024 S. aureus and MRSA panel WENDY+probe (Nose) Not detected Normal Not Detected [facility] Comment on above: Order Comment: Speci men Type: SWABOrdering Facility: [facility] Address: [address] [place] [address] Performed By: #### S APCR ####[facility] LABIA [id number] [address] [place] TYPE AND SCREEN,30 DAYon ABO O Normal [facility] Comment on above: Order Comment: Speci men Type: BLOOD SPECIMENOrdering Facility: [facility] Address: [address] [place] [address] Performed By: #### T SCR30 ####[facility] BANKCLIA [id number] [place] [address] [place] Rh Nom (Bld) Positive Normal [facility] Comment on above: Order Comment: Speci men Type: BLOOD SPECIMENOrdering Facility: [facility] Address: [address] [place] [address] Performed By: #### T SCR30 ####[facility] BLOOD BANKIA [id number] [place] [address] [place] URINALYSIS, DIPSTICK ONLYon 06-07-2024 Bilirubin Ql (U) 1+ Abnormal Negative [facility] Comment on above: Order Comment: Speci men Type: URINE SPECIMENOrdering Facility: [facility] Address: [address] [place] [address] Result Comment: Sugg est correlation with clinical findings and serum bilirubin if clinically indicated. Performed By: #### U A ####[facility] LABCLIA [id number] [place] [address] [place] Clarity (Unsp spec) Clear Normal Clear [facility] Comment on above: Order Comment: Speci men Type: URINE SPECIMENOrdering Facility: [facility] Address: [address] [place] [address] Performed By: #### U A ####[facility] LABCLIA [id number] [place] [address] [place] Color (U) Dark Yellow Abnormal Yellow [facility] Comment on above: Order Comment: Speci men Type: URINE SPECIMENOrdering Facility: [facility] Address: [address] [place] [address] Performed By: #### U A ####[facility] LABCLIA [id number] [place] [id number] [place] Glucose Test strip (U) [Mass/Vol] Negative Normal Negative [facility] Comment on above: Order Comment: Speci men Type: URINE SPECIMENOrdering Facility: [facility] Address: [address] [place] [address] Performed By: #### U A ####[facility] LABCLIA [id number] [address] [place] [address] [place] Hemoglobin Ql (U) Negative Normal [facility] Comment on above: Order Comment: Speci men Type: URINE SPECIMENOrdering Facility: [facility] Address: [address] [place] [address] Performed By: #### U A ####[facility] LABCLIA [id number] [address], [place] [address] [place] Ketones Ql (U) Trace Abnormal Negative [facility] Comment on above: Order Comment: Speci men Type: URINE SPECIMENOrdering Facility: [facility] Address: [address] [place] [address] Performed By: #### U A ####[facility] LABCLIA [id number] [address], [facility] [place] Leukocyte esterase Test strip Ql (U) Negative Normal Negative [facility] Comment on above: Order Comment: Speci men Type: URINE SPECIMENOrdering Facility: [facility] Address: [address] [place] [address] Performed By: #### U A ####[facility] LABCLIA [id number] [address] [place] [address] [place] Nitrite Ql (U) Negative Normal Negative [facility] Comment on above: Order Comment: Speci men Type: URINE SPECIMENOrdering Facility: [facility] Address: [address] [place] [address] Performed By: #### U A ####[facility] LABCLIA [id number] [address] [place] [address] [place] pH (U) 6.0 [pH] Normal <8.5 [facility] Comment on above: Order Comment: Speci men Type: URINE SPECIMENOrdering Facility: [facility] Address: [address] [place] [address] Performed By: #### U A ####[facility] LABIA [id number] [place] [id number] [place] Protein (U) [Mass/Vol] 1+ Abnormal Negative [facility] Comment on above: Order Comment: Speci men Type: URINE SPECIMENOrdering Facility: [facility] Address: [address] [place] [address] Performed By: #### U A ####[facility] LABIA [id number] [place] [address] [place] Specific gravity (U) [Rel density] 1.025 Normal 1.005-1.030 [facility] Comment on above: Order Comment: Speci men Type: URINE SPECIMENOrdering Facility: [facility] Address: [address] [place] [address] Performed By: #### U A ####[facility] LABIA [id number] [place] [id number] [place] Urobilinogen Ql (U) 1.0 EU/dL Normal 0.2-1.0 EU/dL Cl [facility] Comment on above: Order Comment: Speci men Type: URINE SPECIMENOrdering Facility: [facility] Address: [address] [place] [address] Performed By: #### U A ####[facility] LABIA [id number] [place] [id number] [place] XR CHEST 2V FRONTAL/LATon XR CHEST 2V FRONTAL/LAT Normal [facility] XR Chest PA and Lateralon IMPRESSION: 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 Quantitative Equity Head: PSCHerbert Transcribe Date/Time: Jun 07 2024 1:52P Dictated by : JEANETTE MENJIVAR MD This examination was interpreted and the report reviewed and electronically signed by: POPEYE RODRIGUEZ MD on Jun 07 2024 4:23PM [facility] * * *Final Report* * * DATE OF EXAM: Jun 07 2024 9:57AM JIX 5291 - XR CHEST 2V FRONTAL/LAT / PROCEDURE REASON: multiple diagnoses * * * * Physician Interpretation * * * * EXAMINATION: CHEST RADIOGRAPH (2 VIEW FRONTAL & LATERAL) CLINICAL HISTORY: Hydropneumothorax Pre-procedure lab exam [...] changes are present within the thoracic spine. DIVISION OF RADIOLOGY Provider, [facility] - 06/07/2024 * * *Final Report* * * DATE OF EXAM: Jun 07 2024 9:57AM JIX 5291 - XR CHEST 2V FRONTAL/LAT / PROCEDURE REASON: multiple diagnoses * * * * Physician Interpretation * * * * EXAMINATION: CHEST RADIOGRAPH (2 VIEW FRONTAL & LATERAL) CLINICAL HISTORY: Hydropneumothorax Pre-procedure lab exam [...] changes are present within the thoracic spine. IMPRESSION IMPRESSION: 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 Quantitative Equity Head: IMMANUEL Transcribe Date/Time: Jun 07 2024 1:52P Dictated by : JEANETTE MENJIVAR MD This examination was interpreted and the report reviewed and electronically signed by: POPEYE RODRIGUEZ MD on Jun 07 2024 4:23PM EST [facility] Radiology Study observation (narrative) [facility] XR Chest PA and LateralOrder ed By: [facility]cf Provider on 06-07-[address] [facility] aPTT PPPon 06-07-2024 aPTT Coag (PPP) [Time] 27.9 s Normal 23.0-32.4 [facility] Comment on above: Order Comment: Speci men Type: BLOOD SPECIMENOrdering Facility: [facility] Address: [address] [place] [address] Performed By: #### 3 4528-0, 89851-2 ####[facility] LABCLIA [id number] [address] [place] CNPNon 05-22-2024 CNPN Normal [facility] CNOVon 05-17-2024 CNOV Normal [facility] XR CHEST 2V FRONTAL/LATon XR CHEST 2V FRONTAL/LAT Normal [facility] XR Chest PA and Lateralon IMPRESSION: See result. Quantitative Equity Head: PSCB Transcribe Date/Time: May 17 2024 3:17P Dictated by : QUAN JACQUES MD This examination was interpreted and the report reviewed and electronically signed by: QUAN JACQUES MD on May 17 2024 3:18PM [facility] * * *Final Report* * * DATE OF EXAM: May 17 2024 2:22PM JIX 5291 - XR CHEST 2V FRONTAL/LAT / PROCEDURE REASON: Pneumothorax, unspecified type * * * * Physician Interpretation * * * * EXAMINATION: CHEST RADIOGRAPH (2 VIEW FRONTAL & LATERAL) CLINICAL HISTORY: Pneumothorax, unspecified type MQ: [id number] EXAM DATE/TIME: 05/17/2024 2:22 PM COMPARISON: 5 days prior RESULT: Lines, tubes, and devices: None. Lungs and pleura: Unchanged loculated right hydropneumothorax and bibasilar opacities. Postsurgical change in the right lung. Cardiomediastinal silhouette: Stable cardiomediastinal silhouette. Bones and soft tissues: Unremarkable. DIVISION OF RADIOLOGY Provider, Augustina Cardona - 05/17/2024 * * *Final Report* * * DATE OF EXAM: May 17 2024 2:22PM [id number] - XR CHEST 2V FRONTAL/LAT / PROCEDURE REASON: Pneumothorax, unspecified type * * * * Physician Interpretation * * * * EXAMINATION: CHEST RADIOGRAPH (2 VIEW FRONTAL & LATERAL) CLINICAL HISTORY: Pneumothorax, unspecified type MQ: [id number] EXAM DATE/TIME: 05/17/2024 2:22 PM COMPARISON: 5 days prior RESULT: Lines, tubes, and devices: None. Lungs and pleura: Unchanged loculated right hydropneumothorax and bibasilar opacities. Postsurgical change in the right lung. Cardiomediastinal silhouette: Stable cardiomediastinal silhouette. Bones and soft tissues: Unremarkable. IMPRESSION IMPRESSION: See result. Quantitative Equity Head: IMMANUEL Transcribe Date/Time: May 17 2024 3:17P Dictated by : QUAN JACQUES MD This examination was interpreted and the report reviewed and electronically signed by: QUAN JACQUES MD on May 17 2024 3:18PM EST [facility] Radiology Study observation (narrative) [facility] XR Chest PA and LateralOrder ed By: Ccf Provider on 05-17-[address] [facility] CNPTOUTREACHon 05-13-2024 CNPTOUTREACH Normal [facility] Basic metabolic 2000 panelon 05-12-2024 Anion gap [Moles/Vol] 11 mmol/L Normal 8-15 [facility] Comment on above: Order Comment: Speci men Type: BLOOD SPECIMENOrdering Facility: [facility] Address: [address] [place] [address] Performed By: #### 2 4321-2 ####[facility] LABCLIA [id number] [place] [address] [place] Calcium [Mass/Vol] 9.3 mg/dL Normal 8.5-10.2 [facility] Comment on above: Order Comment: Speci men Type: BLOOD SPECIMENOrdering Facility: [facility] Address: [address] [place] [address] Performed By: #### 2 4321-2 ####[facility] LABCLIA [id number] [place] [id number] [place] Chloride [Moles/Vol] 105 mmol/L Normal 98-107 [facility] Comment on above: Order Comment: Speci men Type: BLOOD SPECIMENOrdering Facility: [facility] Address: [address] [place] [address] Performed By: #### 2 4321-2 ####[facility] LABCLIA [id number] [place] [id number] [place] CO2 [Moles/Vol] 23 mmol/L Normal 22-30 [facility] Comment on above: Order Comment: Speci men Type: BLOOD SPECIMENOrdering Facility: [facility] Address: [address] [place] [address] Performed By: #### 2 4321-2 ####[facility] LABCLIA [id number] [place] [id number] [place] Creatinine [Mass/Vol] 0.59 mg/dL Low 0.73-1.22 [facility] Comment on above: Order Comment: Speci men Type: BLOOD SPECIMENOrdering Facility: [facility] Address: [address] [place] [address] Performed By: #### 2 4321-2 ####[facility] LABIA [id number] [place] [id number] [place] Creatinine and Glomerular filtration rate.predicted panel (S/P/Bld) 104 mL/min/1.73m??? Normal >=60 [facility] Comment on above: Order Comment: Speci men Type: BLOOD SPECIMENOrdering Facility: [facility] Address: [address] [place] [address] Result Comment: Karon mated Glomerular Filtration Rate (eGFR) is calculated using the 2020 CKD-EPI creatinine equation. This equation utilizes serum creatinine, sex, and age as parameters. The creatinine assay has traceable calibration to isotope dilution-mass spectrometry. Refer to KDIGO guidelines for clinical interpretation. In patients with unstable renal function, e.g. those with acute kidney injury, the eGFR may not accurately reflect actual GFR. Performed By: #### 2 4321-2 ####[facility] LABCLIA [id number] [address] [address] [place] Glucose [Mass/Vol] 104 mg/dL High 74-99 [facility] Comment on above: Order Comment: Speci men Type: BLOOD SPECIMENOrdering Facility: [facility] Address: [address] [place] [address] Result Comment: The [place] [employer] (ADA) provides guidance for cutoff values for fasting glucose and random glucose. The ADA defines fasting as no caloric intake for at least 8 hours. Fasting plasma glucose results between 100 to 125 mg/dL indicate increased risk for diabetes (prediabetes).Fasting plasma glucose results greater than or equal to 126 mg/dL meet the criteria for diagnosis of diabetes. In the absence of unequivocal hyperglycemia, results should be confirmed by repeat testing. In a patient with classic symptoms of hyperglycemia or hyperglycemic crisis, random plasma glucose results greater than or equal to 200 mg/dL meet the criteria for diagnosis of diabetes.Reference: Standards of Medical Care in Diabetes 2016, [place] [employer]. Diabetes Care. 2016.39(Suppl 1). Performed By: #### 2 4321-2 ####[facility] LABCLIA [id number] [address] [address] [place] Potassium [Moles/Vol] 3.9 mmol/L Normal 3.7-5.1 [facility] Comment on above: Order Comment: Rody adams Type: BLOOD SPECIMENOrdering Facility: [facility] Address: [address] [place] [address] Performed By: #### 2 4321-2 ####[facility] LABCLIA [id number] [facility] [address] [address] [place] Sodium [Moles/Vol] 139 mmol/L Normal 136-144 [facility] Comment on above: Order Comment: Speci men Type: BLOOD SPECIMENOrdering Facility: [facility] Address: [address] [place] [address] Performed By: #### 2 4321-2 ####[facility] LABCLIA [id number] [address] [address] [place] Urea nitrogen [Mass/Vol] 9 mg/dL Normal 9-24 [facility] Comment on above: Order Comment: Speci men Type: BLOOD SPECIMENOrdering Facility: [facility] Address: [address] [place] [address] Performed By: #### 2 4321-2 ####[facility] LABIA [id number] [address], [facility] [place] CBC panel Auto (Bld)on 05-12 Erythrocyte distribution width (RBC) [Ratio] 14.1 % Normal 11.5-15.0 [facility] Comment on above: Order Comment: Speci men Type: BLOOD SPECIMENOrdering Facility: [facility] Address: [address] [place] [address] Performed By: #### 5 8410-2 ####[facility] LABIA [id number] [place] [id number] [place] Hematocrit (Bld) [Volume fraction] 39.6 % Normal 39.0-51.0 [facility] Comment on above: Order Comment: Speci men Type: BLOOD SPECIMENOrdering Facility: [facility] Address: [address] [place] [address] Performed By: #### 5 8410-2 ####[facility] LABIA [id number] [place] [id number] [place] Hemoglobin (Bld) [Mass/Vol] 13.4 g/dL Normal 13.0-17.0 [facility] Comment on above: Order Comment: Speci men Type: BLOOD SPECIMENOrdering Facility: [facility] Address: [address] [place] [address] Performed By: #### 5 8410-2 ####[facility] LABIA [id number] [place] [address] [place] MCH (RBC) [Entitic mass] 31.4 pg Normal 26.0-34.0 [facility] Comment on above: Order Comment: Speci men Type: BLOOD SPECIMENOrdering Facility: [facility] Address: [address] [place] [address] Performed By: #### 5 8410-2 ####[facility] LABIA [id number] [place] [address] [place] MCHC (RBC) [Mass/Vol] 33.8 g/dL Normal 30.5-36.0 [facility] Comment on above: Order Comment: Speci men Type: BLOOD SPECIMENOrdering Facility: [facility] Address: [address] [place] [address] Performed By: #### 5 8410-2 ####[facility] LABIA [id number] [place] [address] [place] MCV (RBC) [Entitic vol] 92.7 fL Normal 80.0-100.0 [facility] Comment on above: Order Comment: Speci men Type: BLOOD SPECIMENOrdering Facility: [facility] Address: [address] [place] [address] Performed By: #### 5 8410-2 ####[facility] LABIA [id number] [place] [address] [place] Nucleated RBC (Bld) [#/Vol] 10*3/uL Normal <0.01 [facility] Comment on above: Order Comment: Speci men Type: BLOOD SPECIMENOrdering Facility: [facility] Address: [address] [place] [address] Performed By: #### 5 8410-2 ####[facility] LABIA [id number] [address] [id number] [address] [place] Platelet mean volume (Bld) [Entitic vol] 8.8 fL Low 9.0-12.7 [facility] Comment on above: Order Comment: Speci men Type: BLOOD SPECIMENOrdering Facility: [facility] Address: [address] [place] [address] Performed By: #### 5 8410-2 ####[facility] LABCLIA [id number] [place] [address] [place] Platelets (Bld) [#/Vol] 191 10*3/uL Normal 150-400 [facility] Comment on above: Order Comment: Speci men Type: BLOOD SPECIMENOrdering Facility: [facility] Address: [address] [place] [address] Performed By: #### 5 8410-2 ####[facility] LABCLIA [id number] [place] [address] [place] RBC (Bld) [#/Vol] 4.27 10*6/uL Normal 4.20-6.00 [facility] Comment on above: Order Comment: Speci men Type: BLOOD SPECIMENOrdering Facility: [facility] Address: [address] [place] [address] Performed By: #### 5 8410-2 ####[facility] LABCLIA [id number] [place] [address] [place] WBC (Bld) [#/Vol] 5.48 10*3/uL Normal 3.70-11.00 [facility] Comment on above: Order Comment: Speci men Type: BLOOD SPECIMENOrdering Facility: [facility] Address: [address] [place] [address] Performed By: #### 5 8410-2 ####[facility] LABCLIA [id number] [place] [id number] [place] CNDSon 05-12-2024 CNDS Normal [facility] XR CHEST 1V FRONTAL PORTon 0 05-12-2024 XR CHEST 1V FRONTAL PORT Normal [facility] Basic metabolic 2000 panelon 05-11-2024 Anion gap [Moles/Vol] 10 mmol/L Normal 8-15 [facility] Comment on above: Order Comment: Speci men Type: BLOOD SPECIMENOrdering Facility: [facility] Address: [address] [place] [address] Performed By: #### 2 4321-2 ####[facility] LABCLIA [id number] [place] [id number] [place] Calcium [Mass/Vol] 9.4 mg/dL Normal 8.5-10.2 [facility] Comment on above: Order Comment: Speci men Type: BLOOD SPECIMENOrdering Facility: [facility] Address: [address] [place] [address] Performed By: #### 2 4321-2 ####[facility] LABCLIA [id number] [place] [address] [place] Chloride [Moles/Vol] 101 mmol/L Normal 98-107 [facility] Comment on above: Order Comment: Speci men Type: BLOOD SPECIMENOrdering Facility: [facility] Address: [address] [place] [address] Performed By: #### 2 4321-2 ####[facility] LABCLIA [id number] [place] [id number] [place] CO2 [Moles/Vol] 26 mmol/L Normal 22-30 [facility] Comment on above: Order Comment: Speci men Type: BLOOD SPECIMENOrdering Facility: [facility] Address: [address] [place] [address] Performed By: #### 2 4321-2 ####[facility] LABCLIA [id number] [place] [id number] [place] Creatinine [Mass/Vol] 0.58 mg/dL Low 0.73-1.22 [facility] Comment on above: Order Comment: Speci men Type: BLOOD SPECIMENOrdering Facility: [facility] Address: [address] [place] [address] Performed By: #### 2 4321-2 ####[facility] LABIA [id number] [place] [address] [place] Creatinine and Glomerular filtration rate.predicted panel (S/P/Bld) 104 mL/min/1.73m??? Normal >=60 [facility] Comment on above: Order Comment: Rody men Type: BLOOD SPECIMENOrdering Facility: [facility] Address: [address] [place] [address] Result Comment: Karon mated Glomerular Filtration Rate (eGFR) is calculated using the 2020 CKD-EPI creatinine equation. This equation utilizes serum creatinine, sex, and age as parameters. The creatinine assay has traceable calibration to isotope dilution-mass spectrometry. Refer to KDIGO guidelines for clinical interpretation. In patients with unstable renal function, e.g. those with acute kidney injury, the eGFR may not accurately reflect actual GFR. Performed By: #### 2 4321-2 ####[facility] LABIA [id number] [place] [address] [place] Glucose [Mass/Vol] 111 mg/dL High 74-99 [facility] Comment on above: Order Comment: Rody adams Type: BLOOD SPECIMENOrdering Facility: [facility] Address: [address] [place] [address] Result Comment: The [place] Diabetes [employer] (ADA) provides guidance for cutoff values for fasting glucose and random glucose. The ADA defines fasting as no caloric intake for at least 8 hours. Fasting plasma glucose results between 100 to 125 mg/dL indicate increased risk for diabetes (prediabetes).Fasting plasma glucose results greater than or equal to 126 mg/dL meet the criteria for diagnosis of diabetes. In the absence of unequivocal hyperglycemia, results should be confirmed by repeat testing. In a patient with classic symptoms of hyperglycemia or hyperglycemic crisis, random plasma glucose results greater than or equal to 200 mg/dL meet the criteria for diagnosis of diabetes.Reference: Standards of Medical Care in Diabetes 2016, [place] [employer]. Diabetes Care. 2016.39(Suppl 1). Performed By: #### 2 4321-2 ####[facility] LABCLIA [id number] [place] [id number] [place] Potassium [Moles/Vol] 3.7 mmol/L Normal 3.7-5.1 [facility] Comment on above: Order Comment: Speci men Type: BLOOD SPECIMENOrdering Facility: [facility] Address: [address] [place] [address] Performed By: #### 2 4321-2 ####[facility] LABCLIA [id number] [place] [id number] [place] Sodium [Moles/Vol] 137 mmol/L Normal 136-144 [facility] Comment on above: Order Comment: Speci men Type: BLOOD SPECIMENOrdering Facility: [facility] Address: [address] [place] [address] Performed By: #### 2 4321-2 ####[facility] LABIA [id number] [place] [address] [place] Urea nitrogen [Mass/Vol] 10 mg/dL Normal 9-24 [facility] Comment on above: Order Comment: Speci men Type: BLOOD SPECIMENOrdering Facility: [facility] Address: [address] [place] [address] Performed By: #### 2 4321-2 ####[facility] LABIA [id number] [place] [address] [place] CBC panel Auto (Bld)on 05-11 Erythrocyte distribution width (RBC) [Ratio] 13.9 % Normal 11.5-15.0 [facility] Comment on above: Order Comment: Speci men Type: BLOOD SPECIMENOrdering Facility: [facility] Address: [address] [place] [address] Performed By: #### 5 8410-2 ####[facility] LABCLIA [id number] [place] [id number] [place] Hematocrit (Bld) [Volume fraction] 41.8 % Normal 39.0-51.0 [facility] Comment on above: Order Comment: Speci men Type: BLOOD SPECIMENOrdering Facility: [facility] Address: [address] [place] [address] Performed By: #### 5 8410-2 ####[facility] LABIA [id number] [place] [address] [place] Hemoglobin (Bld) [Mass/Vol] 14.2 g/dL Normal 13.0-17.0 [facility] Comment on above: Order Comment: Speci men Type: BLOOD SPECIMENOrdering Facility: [facility] Address: [address] [place] [address] Performed By: #### 5 8410-2 ####[facility] LABIA [id number] [place] [address] [place] MCH (RBC) [Entitic mass] 31.8 pg Normal 26.0-34.0 [facility] Comment on above: Order Comment: Speci men Type: BLOOD SPECIMENOrdering Facility: [facility] Address: [address] [place] [address] Performed By: #### 5 8410-2 ####[facility] LABIA [id number] [place] [address] [place] MCHC (RBC) [Mass/Vol] 34.0 g/dL Normal 30.5-36.0 [facility] Comment on above: Order Comment: Speci men Type: BLOOD SPECIMENOrdering Facility: [facility] Address: [address] [place] [address] Performed By: #### 5 8410-2 ####[facility] LABIA [id number] [place] [address] [place] MCV (RBC) [Entitic vol] 93.7 fL Normal 80.0-100.0 [facility] Comment on above: Order Comment: Speci men Type: BLOOD SPECIMENOrdering Facility: [facility] Address: [address] [place] [address] Performed By: #### 5 8410-2 ####[facility] LABCLIA [id number] [place] [address] [place] Nucleated RBC (Bld) [#/Vol] 10*3/uL Normal <0.01 [facility] Comment on above: Order Comment: Speci men Type: BLOOD SPECIMENOrdering Facility: [facility] Address: [address] [place] [address] Performed By: #### 5 8410-2 ####[facility] LABCLIA [id number] [place] [address] [place] Platelet mean volume (Bld) [Entitic vol] 8.7 fL Low 9.0-12.7 [facility] Comment on above: Order Comment: Speci men Type: BLOOD SPECIMENOrdering Facility: [facility] Address: [address] [place] [address] Performed By: #### 5 8410-2 ####[facility] LABCLIA [id number] [place] [address] [place] Platelets (Bld) [#/Vol] 197 10*3/uL Normal 150-400 [facility] Comment on above: Order Comment: Speci men Type: BLOOD SPECIMENOrdering Facility: [facility] Address: [address] [place] [address] Performed By: #### 5 8410-2 ####[facility] LABCLIA [id number] [place] [address] [place] RBC (Bld) [#/Vol] 4.46 10*6/uL Normal 4.20-6.00 [facility] Comment on above: Order Comment: Speci men Type: BLOOD SPECIMENOrdering Facility: [facility] Address: [address] [place] [address] Performed By: #### 5 8410-2 ####[facility] LABCLIA [id number] [address] [address] [place] WBC (Bld) [#/Vol] 5.39 10*3/uL Normal 3.70-11.00 [facility] Comment on above: Order Comment: Speci men Type: BLOOD SPECIMENOrdering Facility: [facility] Address: [address] [place] [address] Performed By: #### 5 8410-2 ####[facility] [id number] [address] [address] [place] XR CHEST 1V FRONTAL PORTon 0 05-11-2024 XR CHEST 1V FRONTAL PORT Normal [facility] CASE MGT INIT ASSESon 2024 CASE MGT INIT ASSES Normal [facility] CBC panel Auto (Bld)on 05-10 Erythrocyte distribution width (RBC) [Ratio] 13.9 % Normal 11.5-15.0 [facility] Comment on above: Order Comment: Speci men Type: BLOOD SPECIMENOrdering Facility: [facility] Address: [address] [place] [address] Performed By: #### 5 8410-2 ####[facility] [id number] [place] [address] [place] Hematocrit (Bld) [Volume fraction] 42.4 % Normal 39.0-51.0 [facility] Comment on above: Order Comment: Speci men Type: BLOOD SPECIMENOrdering Facility: [facility] Address: [address] [place] [address] Performed By: #### 5 8410-2 ####[facility] [id number] [address] [address] [place] Hemoglobin (Bld) [Mass/Vol] 14.6 g/dL Normal 13.0-17.0 [facility] Comment on above: Order Comment: Speci men Type: BLOOD SPECIMENOrdering Facility: [facility] Address: [address] [place] [address] Performed By: #### 5 8410-2 ####[facility] LABCLIA [id number] [place] [address] [place] MCH (RBC) [Entitic mass] 31.6 pg Normal 26.0-34.0 [facility] Comment on above: Order Comment: Speci men Type: BLOOD SPECIMENOrdering Facility: [facility] Address: [address] [place] [address] Performed By: #### 5 8410-2 ####[facility] LABIA [id number] [place] [address] [place] MCHC (RBC) [Mass/Vol] 34.4 g/dL Normal 30.5-36.0 [facility] Comment on above: Order Comment: Speci men Type: BLOOD SPECIMENOrdering Facility: [facility] Address: [address] [place] [address] Performed By: #### 5 8410-2 ####[facility] LABIA [id number] [address], [place] [address] [place] MCV (RBC) [Entitic vol] 91.8 fL Normal 80.0-100.0 [facility] Comment on above: Order Comment: Speci men Type: BLOOD SPECIMENOrdering Facility: [facility] Address: [address] [place] [address] Performed By: #### 5 8410-2 ####[facility] LABIA [id number] [place] [address] [place] Nucleated RBC (Bld) [#/Vol] 10*3/uL Normal <0.01 [facility] Comment on above: Order Comment: Speci men Type: BLOOD SPECIMENOrdering Facility: [facility] Address: [address] [place] [address] Performed By: #### 5 8410-2 ####[facility] LABIA [id number] [place] [address] [place] Platelet mean volume (Bld) [Entitic vol] 8.7 fL Low 9.0-12.7 [facility] Comment on above: Order Comment: Speci men Type: BLOOD SPECIMENOrdering Facility: [facility] Address: [address] [place] [address] Performed By: #### 5 8410-2 ####[facility] LABIA [id number] [place] [address] [place] Platelets (Bld) [#/Vol] 229 10*3/uL Normal 150-400 [facility] Comment on above: Order Comment: Speci men Type: BLOOD SPECIMENOrdering Facility: [facility] Address: [address] [place] [address] Performed By: #### 5 8410-2 ####[facility] LABIA [id number] [place] [address] [place] RBC (Bld) [#/Vol] 4.62 10*6/uL Normal 4.20-6.00 [facility] Comment on above: Order Comment: Speci men Type: BLOOD SPECIMENOrdering Facility: [facility] Address: [address] [place] [address] Performed By: #### 5 8410-2 ####[facility] LABIA [id number] [place] [address] [place] WBC (Bld) [#/Vol] 7.62 10*3/uL Normal 3.70-11.00 [facility] Comment on above: Order Comment: Speci men Type: BLOOD SPECIMENOrdering Facility: [facility] Address: [address] [place] [address] Performed By: #### 5 8410-2 ####[facility] LABCLIA [id number] [place] [id number] [place] Comprehensive metabolic 2000 panelon 05-10-2024 Albumin [Mass/Vol] 4.3 g/dL Normal 3.9-4.9 [facility] Comment on above: Order Comment: Speci men Type: BLOOD SPECIMENOrdering Facility: [facility] Address: [address] [place] [address] Performed By: #### 2 4323-8 ####[facility] LABCLIA [id number] [place] [id number] [place] ALP [Catalytic activity/Vol] 72 U/L Normal 38-113 [facility] Comment on above: Order Comment: Speci men Type: BLOOD SPECIMENOrdering Facility: [facility] Address: [address] [place] [address] Performed By: #### 2 4323-8 ####[facility] LABCLIA [id number] [place] [address] [place] ALT [Catalytic activity/Vol] 23 U/L Normal 10-54 [facility] Comment on above: Order Comment: Speci men Type: BLOOD SPECIMENOrdering Facility: [facility] Address: [address] [place] [address] Performed By: #### 2 4323-8 ####[facility] LABCLIA [id number] [place] [address] [place] Anion gap [Moles/Vol] 15 mmol/L Normal 8-15 [facility] Comment on above: Order Comment: Speci men Type: BLOOD SPECIMENOrdering Facility: [facility] Address: [address] [place] [address] Performed By: #### 2 4323-8 ####[facility] LABCLIA [id number] [facility] [place] [id number] [place] AST [Catalytic activity/Vol] 20 U/L Normal 14-40 [facility] Comment on above: Order Comment: Speci men Type: BLOOD SPECIMENOrdering Facility: [facility] Address: [address] [place] [address] Performed By: #### 2 4323-8 ####[facility] LABCLIA [id number] [facility] [address] [place] [address] [place] Bilirubin [Mass/Vol] 0.6 mg/dL Normal 0.2-1.3 [facility] Comment on above: Order Comment: Speci men Type: BLOOD SPECIMENOrdering Facility: [facility] Address: [address] [place], [place] [address] Performed By: #### 2 4323-8 ####[facility] LABCLIA [id number] [address], [facility] [place] Calcium [Mass/Vol] 10.0 mg/dL Normal 8.5-10.2 [facility] Comment on above: Order Comment: Speci men Type: BLOOD SPECIMENOrdering Facility: [facility] Address: [address] [place] [address] Performed By: #### 2 4323-8 ####[facility] LABCLIA [id number] [address], [facility] [place] Chloride [Moles/Vol] 98 mmol/L Normal 98-107 [facility] Comment on above: Order Comment: Speci men Type: BLOOD SPECIMENOrdering Facility: [facility] Address: [address] [place] [address] Performed By: #### 2 4323-8 ####[facility] LABCLIA [id number] [place] [id number] [place] CO2 [Moles/Vol] 24 mmol/L Normal 22-30 [facility] Comment on above: Order Comment: Speci men Type: BLOOD SPECIMENOrdering Facility: [facility] Address: [address] [place], [place] [address] Performed By: #### 2 4323-8 ####[facility] LABCLIA [id number] [address] [place] [address] [place] Creatinine [Mass/Vol] 0.59 mg/dL Low 0.73-1.22 [facility] Comment on above: Order Comment: Speci men Type: BLOOD SPECIMENOrdering Facility: [facility] Address: [address] [place] [address] Performed By: #### 2 4323-8 ####[facility] LABIA [id number] [place] [address] [place] Creatinine and Glomerular filtration rate.predicted panel (S/P/Bld) 104 mL/min/1.73m??? Normal >=60 [facility] Comment on above: Order Comment: Rody adams Type: BLOOD SPECIMENOrdering Facility: [facility] Address: [address] [place] [address] Result Comment: Karon mated Glomerular Filtration Rate (eGFR) is calculated using the 2020 CKD-EPI creatinine equation. This equation utilizes serum creatinine, sex, and age as parameters. The creatinine assay has traceable calibration to isotope dilution-mass spectrometry. Refer to KDIGO guidelines for clinical interpretation. In patients with unstable renal function, e.g. those with acute kidney injury, the eGFR may not accurately reflect actual GFR. Performed By: #### 2 4323-8 ####[facility] LABIA [id number] [place] [address] [place] Glucose [Mass/Vol] 109 mg/dL High 74-99 [facility] Comment on above: Order Comment: Rody bryan Type: BLOOD SPECIMENOrdering Facility: [facility] Address: [address] [place] [address] Result Comment: The [place] Diabetes Association (ADA) provides guidance for cutoff values for fasting glucose and random glucose. The ADA defines fasting as no caloric intake for at least 8 hours. Fasting plasma glucose results between 100 to 125 mg/dL indicate increased risk for diabetes (prediabetes).Fasting plasma glucose results greater than or equal to 126 mg/dL meet the criteria for diagnosis of diabetes. In the absence of unequivocal hyperglycemia, results should be confirmed by repeat testing. In a patient with classic symptoms of hyperglycemia or hyperglycemic crisis, random plasma glucose results greater than or equal to 200 mg/dL meet the criteria for diagnosis of diabetes.Reference: Standards of Medical Care in Diabetes 2016, [place] Diabetes Association. Diabetes Care. 2016.39(Suppl 1). Performed By: #### 2 4323-8 ####[facility] LABCLIA [id number] [place] [id number] [place] Potassium [Moles/Vol] 3.5 mmol/L Low 3.7-5.1 [facility] Comment on above: Order Comment: Speci men Type: BLOOD SPECIMENOrdering Facility: [facility] Address: [address] [place] [address] Performed By: #### 2 4323-8 ####[facility] LABCLIA [id number] [place] [id number] [place] Protein [Mass/Vol] 7.1 g/dL Normal 6.3-8.0 [facility] Comment on above: Order Comment: Speci men Type: BLOOD SPECIMENOrdering Facility: [facility] Address: [address] [place] [address] Performed By: #### 2 4323-8 ####[facility] LABIA [id number] [place] [id number] [place] Sodium [Moles/Vol] 137 mmol/L Normal 136-144 [facility] Comment on above: Order Comment: Speci men Type: BLOOD SPECIMENOrdering Facility: [facility] Address: [address] [place] [address] Performed By: #### 2 4323-8 ####[facility] LABCLIA [id number] [place] [id number] [place] Urea nitrogen [Mass/Vol] 7 mg/dL Low 9-24 [facility] Comment on above: Order Comment: Speci men Type: BLOOD SPECIMENOrdering Facility: [facility] Address: [address] [place] [address] Performed By: #### 2 4323-8 ####[facility] LABCLIA [id number] [place] [id number] [place] [id number] 05-10-2024 ECG01 Normal [facility] HISTORY PHYSICALon HISTORY PHYSICAL HNO ID: [id number] Author: FAY ARAYA APRN.CNP Service: Thoracic Surgery Author Type: Nurse Practitioner Type: H&P Filed: 05/10/2024 14:00 Note Text: .mpgh Normal [facility] NURSING PROGon 05-10-2024 NURSING PROG Normal [facility] NURSING PROG Normal [facility] PT panel Coag (PPP)on 2024 INR Coag (PPP) [Relative time] 1.1 {INR} Normal 0.9-1.3 [facility] Comment on above: Order Comment: Rody adams Type: BLOOD SPECIMENOrdering Facility: [facility] Address: [address] [place] [address] Result Comment: Mita min K Antagonist (VKA) Therapeutic Range: INR 2 to 3 (Target INR of 2.5)Note: For patients treated with VKA drugs, such as warfarin, the [place] [employer] 2012 Guideline recommends a therapeutic INR range of 2 to 3 (target INR of 2.5). This recommendation includes high-risk patients with antiphospholipid syndrome with previous arterial or venous thromboembolism, current-generation mechanical or bioprosthetic aortic heart valve replacement.Note: Patients with mechanical aortic valve replacement and additional risk factors for thromboembolic events (atrial fibrillation, previous thromboembolism, LV dysfunction, hypercoagulable conditions) or an older generation mechanical AVR (i.e., ball in-Cage) or any mechanical MVR should have a INR therapeutic range of 2.5 to 3.5 (target INR of 3).Etienne GH, et al. Chest 2012, 141:7S-47SNishimura RA, et al. JACC 2017, 70: 252-289 Performed By: #### 1 4979-9, 20772-5 ####[facility] LABCLIA [id number] [place] [address] [place] PT Coag (PPP) [Time] 11.9 s Normal 9.7-13.0 [facility] Comment on above: Order Comment: Rody adams Type: BLOOD SPECIMENOrdering Facility: [facility] Address: [address] [place] [id number] Performed By: #### 1 4979-9, 19145-8 ####[facility] LABLINDSEY [id number] [place] [id number] [place] THERAPY NTon 05-10-2024 THERAPY NT Normal [facility] XR CHEST 1V FRONTAL PORTon 0 05-10-2024 XR CHEST 1V FRONTAL PORT Normal [facility] XR CHEST 1V FRONTAL PORT Normal [facility] aPTT PPPon 05-10-2024 aPTT Coag (PPP) [Time] 28.7 s Normal 23.0-32.4 [facility] Comment on above: Order Comment: Speci men Type: BLOOD SPECIMENOrdering Facility: [facility] Address: [address] [place] [address] Performed By: #### 1 4979-9, 57618-8 ####[facility] LABLINDSEY [id number] [place] [id number] [place] CT CHEST W IVCONon CT CHEST W IVCON * * *Final Report* * * DATE OF EXAM: May 08 2024 2:21PM [facility] 0539 - CT CHEST W IVCON / [...] right upper lobe spiculated nodule with cavitations. Quantitative Equity Head: IMMANUEL Transcribe Date/Time: May 11 2024 3:35P Dictated by : IVON DALTON MD This examination was interpreted and the report reviewed and electronically signed by: IVON DALTON MD on May 11 2024 3:46PM EST [id number] Normal [facility] NURSING PROGon 05-08-2024 NURSING PROG HNO ID: [id number] Author: IRISH AMOR RN Service: PICC Team [...] SIGNATURE: Irish Amor RN PATIENT NAME: Stevie Sanchez DATE: May 08, 2024 TIME: 2:07 PM Normal [facility] Basic metabolic 2000 panelon 05-07-2024 Anion gap [Moles/Vol] 12 mmol/L Normal 8-15 [facility] Comment on above: Order Comment: Rody adams Type: BLOOD SPECIMEN [facility] Address: [address] [place] [address] Performed By: #### 2 4321-2, 33300-8, 96120-8, 2276-4 #### [facility] CLIA [id number] [address] [place] [address] [place] Calcium [Mass/Vol] 10.2 mg/dL Normal 8.5-10.2 [facility] Comment on above: Order Comment: Rody adams Type: BLOOD SPECIMEN [facility] Address: [address] [place] [address] Performed By: #### 2 4321-2, 75618-9, 02892-2, 6-4 #### [facility] CLIA [id number] [address] [place] [address] [place] Chloride [Moles/Vol] 94 mmol/L Low 98-107 [facility] Comment on above: Order Comment: Speci men Type: BLOOD SPECIMEN [facility] Address: [address] [place] [address] Performed By: #### 2 4321-2, 51286-7, 13858-3, 6-4 #### [facility] CLIA [id number] [address] [place] [address] [place] CO2 [Moles/Vol] 29 mmol/L Normal 22-30 [facility] Comment on above: Order Comment: Speci men Type: BLOOD SPECIMEN [facility] Address: [address] [place] [address] Performed By: #### 2 4321-2, 92347-3, 72514-8, 6-4 #### [facility] CLIA [id number] [address] [place] [address] [place] Creatinine [Mass/Vol] 0.73 mg/dL Normal 0.73-1.22 [facility] Comment on above: Order Comment: Speci men Type: BLOOD SPECIMEN [facility] Address: [address] [place] [address] Performed By: #### 2 4321-2, 81979-5, 10279-7, 6-4 #### [facility] CLIA [id number] [address] Creatinine and Glomerular filtration rate.predicted panel (S/P/Bld) 97 mL/min/1.73m??? Normal >=60 [facility] Comment on above: Order Comment: Speci men Type: BLOOD SPECIMEN [facility] Address: [address] [place] [address] Result Comment: Karon mated Glomerular Filtration Rate (eGFR) is calculated using the 2020 CKD-EPI creatinine equation. This equation utilizes serum creatinine, sex, and age as parameters. The creatinine assay has traceable calibration to isotope dilution-mass spectrometry. Refer to KDIGO guidelines for clinical interpretation. In patients with unstable renal function, e.g. those with acute kidney injury, the eGFR may not accurately reflect actual GFR. Performed By: #### 2 4321-2, 69584-1, 57865-3, 2275- #### [facility] CLIA [id number] [address] [place] [address] [place] Glucose [Mass/Vol] 124 mg/dL High 74-99 [facility] Comment on above: Order Comment: Rody adams Type: BLOOD SPECIMEN [facility] Address: [address] [place] [id number] Result Comment: The [place] Diabetes Association (ADA) provides guidance for cutoff [...] Standards of Medical Care in Diabetes 2016, [place] [employer]. Diabetes Care. 2016.39(Suppl 1). Performed By: #### 2 4321-2, 66767-3, , 2275-05 #### [facility] CLIA [id number] [address] [place] [address] [place] Potassium [Moles/Vol] 3.9 mmol/L Normal 3.7-5.1 [facility] Comment on above: Order Comment: Rody adams Type: BLOOD SPECIMEN [facility] Address: [address] [place] [address] Performed By: #### 2 4321-2, 65834-7, 50796-6, 2275-4 #### [facility] CLIA [id number] [address] [place] [address] [place] Sodium [Moles/Vol] 135 mmol/L Low 136-144 [facility] Comment on above: Order Comment: Speci men Type: BLOOD SPECIMEN [facility] Address: [address] [place] [address] Performed By: #### 2 4321-2, 69048-9, 55283-8, 2275-4 #### [facility] CLIA [id number] [address] Urea nitrogen [Mass/Vol] 9 mg/dL Normal 9-24 [facility] Comment on above: Order Comment: Speci men Type: BLOOD SPECIMEN [facility] Address: [address] [place] [address] Performed By: #### 2 4321-2, 96391-0, 52472-2, 2275-05 #### [facility] CLIA [id number] [address] Lipid 1996 panelon 5 Cholesterol [Mass/Vol] 154 mg/dL Normal <200 [facility] Comment on above: Order Comment: Speci men Type: BLOOD SPECIMEN [facility] Address: [address] [place] [address] Result Comment: <200 mg/dL, Desirable 200-239 mg/dL, Borderline high >239 mg/dL, High Performed By: #### 2 4321-2, 32195-5, 41048-2, 2275- #### [facility] CLIA [id number] [address] Cholesterol in HDL [Mass/Vol] 61 mg/dL Normal >39 [facility] Comment on above: Order Comment: Speci men Type: BLOOD SPECIMEN [facility] Address: [address] [place] [address] Result Comment: 40-5 9 mg/dL, Acceptable >59 mg/dL, High: Negative risk factor for coronary heart disease <40 mg/dL, Low: Positive risk factor for coronary heart disease Performed By: #### 2 4321-2, 32853-0, 24676-7, 2275-4 #### [facility] CLIA [id number] [address] Cholesterol in LDL [Mass/Vol] 67 mg/dL Normal <100 [facility] Comment on above: Order Comment: Rody adams Type: BLOOD SPECIMEN [facility] Address: [address] [place] [address] Result Comment: <100 mg/dL, Optimal 100-129 mg/dL, Near optimal/above optimal 130-159 mg/dL, Borderline high 160-189 mg/dL, High >189 mg/dL, Very high Secondary prevention optimal LDL Cholesterol levels are recommended to be < 70 mg/dL Performed By: #### 2 4321-2, 65654-2, 40884-6, 2275-4 #### [facility] CLIA [id number] [address] Cholesterol in LDL/Cholesterol in HDL [Mass ratio] 1.10 {ratio} Normal <2.54 [facility] Comment on above: Order Comment: Rody adams Type: BLOOD SPECIMEN [facility] Address: [address] [place] [address] Result Comment: Tad dickinson: 1. National Cholesterol Education Program ATP III Guideline At-A-Glance Quick Desk Reference: National Heart, Lung, and Blood [place]. National Institutes of Health. 2001: NIH Publication No. 01-3305. 2. An International Atherosclerosis Society position paper: global recommendations for the management of dyslipidemia: executive summary, Atherosclerosis. 2014: 232(2):410-413. Performed By: #### 2 4321-2, 62967-9, 48227-6, 2275-4 #### [facility] CLIA [id number] [address] STATES [facility] Cholesterol in VLDL [Mass/Vol] 26 mg/dL Normal <30 [facility] Comment on above: Order Comment: Rody adams Type: BLOOD SPECIMEN [facility] Address: [address] [place] [address] Performed By: #### 2 4321-2, 72170-9, 14441-5, 2275-4 #### [facility] CLIA [id number] [address] [place] Cholesterol non HDL [Mass/Vol] 93 mg/dL Normal <130 [facility] Comment on above: Order Comment: Rody adams Type: BLOOD SPECIMEN [facility] Address: [address] [place] [address] Result Comment: <130 mg/dL, Optimal 130-159 mg/dL, Near optimal/above optimal 160-189 mg/dL, Borderline high 190-219 mg/dL, High >219 mg/dL, Very high Secondary prevention optimal non HDL Cholesterol levels are recommended to be <100 mg/dL Performed By: #### 2 4321-2, 87235-1, 43352-0, 2275-4 #### [facility] CLIA [id number] [address] [place] Cholesterol.total/C holesterol in HDL [Mass ratio] 2.52 {ratio} Normal <5.10 [facility] Comment on above: Order Comment: Rody adams Type: BLOOD SPECIMEN [facility] Address: [address] [place] [address] Performed By: #### 2 4321-2, 68613-0, 24152-9, 2275-4 #### [facility] CLIA [id number] [address] STATES OF [facility] FASTING TIME 15 hrs Normal [facility] Comment on above: Order Comment: Rody adams Type: BLOOD SPECIMEN [facility] Address: [address] [place] [address] Performed By: #### 2 4321-2, 32200-5, 37637-4, 2275-4 #### [facility] CLIA [id number] [address] OF [facility] Triglyceride [Mass/Vol] 129 mg/dL Normal <150 [facility] Comment on above: Order Comment: Rody adams Type: BLOOD SPECIMEN [facility] Address: [address] [place] [address] Result Comment: <150 mg/dL, Normal 150-199 mg/dL, Borderline high 200-499 mg/dL, High >499 mg/dL, Very high Performed By: #### 2 4321-2, 28233-4, 42087-0, 2275-4 #### [facility] CLIA [id number] [address] [place] [address] [place] Hemoccult Stl Ql IAon 2024 Lower GI hemoglobin IA Ql (Stl) Negative Normal Negative [facility] Comment on above: Order Comment: Speci men Type: STOOL SPECIMENOrdering Facility: [facility] Address: [address] [place] [address] Performed By: #### 2 9771-3 ####[facility] LABCLIA [id number] [place] [address] [place] CNOVon 04-25-2024 CNOV Normal [facility] CNPNon 03-05-2024 CNPN Normal [facility] CNPNon 02-29-2024 CNPN Normal [facility] CNPTOUTREACHon 02-29-2024 CNPTOUTREACH Normal [facility] CNPTOUTREACHon 02-02-2024 CNPTOUTREACH Normal [facility] CNOVon 02-01-2024 CNOV Normal [facility] XR CHEST 2V FRONTAL/LATon XR CHEST 2V FRONTAL/LAT Normal [facility] ED PROV NOTEon 01-31-2024 ED PROV NOTE HNO ID: [id number] Author: MERARI MORALES DO Service: Emergency Medicine Author Type: Physician Type: ED Provider Notes Filed: 01/31/2024 11:23 Note Text: ED Provider Note Patient Name: Stevie Sanchez : 1950 SERVICE DATE: 01/31/24 History Patient [...] this time. 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 Denies any other complaints or concerns at this time. Notes he has had some mild irritation to his right ear since before of the foreign body. PAST MEDICAL HISTORY Diagnosis Date Abdominal aortic aneurysm (HCC) without rupture Elevated PSA Hearing loss HTN (hypertension) Lumbosacral neuritis Malignant neoplasm of prostate (HCC) Other and unspecified hyperlipidemia Prostate cancer (HCC) 2020 xrt at [facility] [place] Smoker former quit 2021 Spinal stenosis of [...] Counseled patient regarding suspected diagnosis. SIGNATURE: Merari Morales DO - MERARI MORALES 01/31/24 1123 [facility] CNPNon 01-19-2024 CNPN Normal [facility] CNOVon 01-11-2024 CNOV Normal [facility] CNOVon 01-08-2024 CNOV Normal [facility] XR CHEST 2V FRONTAL/LATon XR CHEST 2V FRONTAL/LAT Normal [facility] XR Chest PA and Lateralon IMPRESSION: See result Quantitative Equity Head: IMMANUEL Transcribe Date/Time: Jan 08 2024 2:44P Dictated by : CORAZON PUENTES DO This examination was interpreted and the report reviewed and electronically signed by: ALIYA BARRIENTOS MD on Jan 08 2024 3:45PM [facility] * * *Final Report* * * DATE OF EXAM: Jan 08 2024 1:30PM JIX [id number] - XR CHEST 2V FRONTAL/LAT / PROCEDURE REASON: Malignant neoplasm of lower lobe of right lung (HCC) * * * * Physician Interpretation * * * * EXAMINATION: CHEST RADIOGRAPH (2 VIEW FRONTAL & LATERAL) CLINICAL HISTORY: Malignant neoplasm of lower [...] changes are present within the thoracic spine. DIVISION OF RADIOLOGY Provider, [facility] - 01/08/2024 * * *Final Report* * * DATE OF EXAM: Jan 08 2024 1:30PM JIX [id number] - XR CHEST 2V FRONTAL/LAT / PROCEDURE REASON: Malignant neoplasm of lower lobe of right lung (HCC) * * * * Physician Interpretation * * * * EXAMINATION: CHEST RADIOGRAPH (2 VIEW FRONTAL & LATERAL) CLINICAL HISTORY: Malignant neoplasm of lower [...] changes are present within the thoracic spine. IMPRESSION IMPRESSION: See result Quantitative Equity Head: IMMANUEL Transcribe Date/Time: Jan 08 2024 2:44P Dictated by : OCRAZON PUENTES, This examination was interpreted and the report reviewed and electronically signed by: ALIYA BARRIENTOS MD on Jan 08 2024 3:45PM EST [facility] Radiology Study observation (narrative) [facility] XR Chest PA and LateralOrder ed By: Ccf Provider on 01-08-[address] [facility] Xuan 01-05-2024 CNPN Telephone (AKURFL) -- JACQUI SANCHEZYDE ([id number]) 1950 M DEF Date Time Provider Department [...] Results [95] Prescriptions as of 01/05/2024 - lisinopril-hydroCHLOROthia zide (ZESTORETIC) 20-12.5 mg per tablet Take 1 [...] Encounter Status:Closed by KIRK MATAMOROS on 01/05/24 Normal [facility] CNOVon 01-04-2024 CNOV Normal [facility] PSA SerPl-mCncon 01-04-2024 Prostate specific Ag [Mass/Vol] 0.08 ng/mL Normal <2.60 [facility] Comment on above: Order Comment: Speci men Type: BLOOD SPECIMEN Ordering Facility: [facility] Address: [address] [place] [address] Result Comment: Marzena bean PSA test methodology used is the Electrochemiluminescence Immunoassay by [employer]. Total PSA values by differing methodologies cannot be interchanged. Performed By: #### 2 4321-2, 12611-8, 66804-4, 2276-4 #### [facility] CLIA [id number] [address] [place] [address] [place] UA DIP, URINE (POC)on 2023 BILIRUBIN UA (POCT) Negative Negative [facility] CLARITY UA (POCT) Clear [facility] COLOR UA (POCT) Yellow [facility] GLUCOSE UA (POCT) Negative Negative mg/dL [facility] Hemoglobin Ql (U) Negative Negative [facility] KETONE UA (POCT) Negative Negative mg/dL [facility] LEUKOCYTES UA (POCT) Negative Negative [facility] NITRITE UA (POCT) Negative Negative [facility] PH UA (POCT) 6.0 4.5 - 8.[address] [facility] Protein Ql (U) Negative Negative mg/dL [facility] SPECIFIC GRAVITY UA (POCT) 1.025 1.005 - 1.[address] [facility] UROBILINOGEN UA (POCT) 0.2 Normal E.U./dL [facility] Location:[facility] MOB, [address] [place], [address] [facility] POINT OF CARE [facility] CNPNon 12-28-2023 CNPN Normal [facility] CNOVon 12-19-2023 CNOV Normal [facility] CNOVSPon 12-19-2023 CNOVSP Normal [facility] CNPNon 12-19-2023 CNPN Normal [facility] US ABD AORTA COMPLETE VAS LA Bon 12-19-2023 US ABD AORTA COMPLETE VAS LAB Normal [facility] CT CHEST WO IVCONon 12-09-19 CT CHEST WO IVCON * * *Final Report* * * DATE OF EXAM: Dec 09 2023 9:13AM [facility] 0541 - CT CHEST WO IVCON / [...] pleural effusion. 3. No new thoracic lymphadenopathy Quantitative Equity Head: IMMANUEL Transcribe Date/Time: Dec 14 2023 1:29P Dictated by : ANNE COUGHLIN MD This examination was interpreted and the report reviewed and electronically signed by: ANNE COUGHLIN MD on Dec 14 2023 1:47PM EST [id number] [facility] XR Chest PA and Lateralon IMPRESSION: See result Quantitative Equity Head: IMMANUEL Transcribe Date/Time: Nov 27 2023 2:01P Dictated by : ALIYA BARRIENTOS MD This examination was interpreted and the report reviewed and electronically signed by: ALIYA BARRIENTOS MD on Nov 27 2023 2:14PM EST DIVISION OF RADIOLOGY * * *Final Report* * * DATE OF EXAM: Nov 27 2023 10:15AM [facility] [id number] - XR CHEST 2V FRONTAL/LAT / PROCEDURE REASON: multiple diagnoses * * * * Physician Interpretation * * * * EXAMINATION: CHEST RADIOGRAPH (2 VIEW FRONTAL & LATERAL) CLINICAL HISTORY: Malignant neoplasm of lower [...] changes are present in the thoracic spine. DIVISION OF RADIOLOGY Provider, [facility] - 11/27/2023 * * *Final Report* * * DATE OF EXAM: Nov 27 2023 10:15AM [facility] 5291 - XR CHEST 2V FRONTAL/LAT / PROCEDURE REASON: multiple diagnoses * * * * Physician Interpretation * * * * EXAMINATION: CHEST RADIOGRAPH (2 VIEW FRONTAL & LATERAL) CLINICAL HISTORY: Malignant neoplasm of lower [...] changes are present in the thoracic spine. IMPRESSION IMPRESSION: See result Quantitative Equity Head: IMMANUEL Transcribe Date/Time: Nov 27 2023 2:01P Dictated by : ALIYA BARRIENTOS MD This examination was interpreted and the report reviewed and electronically signed by: ALIYA BARRIENTOS MD on Nov 27 2023 2:14PM [facility] Radiology Study observation (narrative) [facility] XR Chest PA and LateralOrder ed By: Ccf Provider on 11-27-[address] [facility] MR Brain WO and W contrast I Von 11-10-2023 IMPRESSION: No acute findings. No intracranial metastases. Quantitative Equity Head: IMMANUEL Transcribe Date/Time: Nov 10 2023 3:12P Dictated by : ALEJANDRO TORREZ MD This examination was interpreted and the report reviewed and electronically signed by: ALEJANDRO TORREZ MD on Nov 10 2023 3:16PM [facility] DIV[facility] OF RAD[facility]OLOG[facility] * * *Final Report* * * DATE OF EXAM: Nov 10 2023 1:34PM [facility] 0295 - MRI BRAIN WO/W IVCON / PROCEDURE REASON: Malignant neoplasm of lower lobe of right lung (HCC) * * * * Physician Interpretation * * * * EXAMINATION: MRI BRAIN WO/W IVCON CLINICAL HISTORY: Lung cancer. TECHNIQUE: Routine brain MRI protocol without and with contrast including diffusion images. MQ: MRBWOW_2 Contrast: 17 mL Dotarem IV COMPARISON: None. RESULT: Acute Change: There is no evidence of restricted diffusion to suggest an acute infarct. Hemorrhage: No evidence of prior parenchymal hemorrhage on the gradient echo images. Mass Lesion/ Mass Effect: No evidence of an intracranial mass or extra-axial fluid collection. No abnormal parenchymal or leptomeningeal enhancement is noted following contrast administration. No significant mass effect. Chronic Change: Minimal chronic change. Parenchyma: No significant volume loss for age. The brain parenchyma is otherwise within normal limits of signal intensity and morphology. Ventricles: Normal caliber and morphology. Skull Base: Hypothalamic and pituitary region are grossly normal. Craniocervical junction is normal. No significant marrow replacement process. Vasculature: Major intracranial arterial structures, and dural venous sinuses show typical flow void, suggesting patency by spin echo criteria. Other: The visualized paranasal sinuses and mastoid air cells are clear. The orbits and extracranial soft tissues are unremarkable. Postoperative changes involve the RIGHT globe. DIVISION OF RADIOLOGY Provider, [facility] - 11/10/2023 * * *Final Report* * * DATE OF EXAM: Nov 10 2023 1:34PM [facility] 0295 - MRI BRAIN WO/W IVCON / PROCEDURE REASON: Malignant neoplasm of lower lobe of right lung (HCC) * * * * Physician Interpretation * * * * EXAMINATION: MRI BRAIN WO/W IVCON CLINICAL HISTORY: Lung cancer. TECHNIQUE: Routine brain MRI protocol without and with contrast including diffusion images. MQ: MRBWOW_2 Contrast: 17 mL Dotarem IV COMPARISON: None. RESULT: Acute Change: There is no evidence of restricted diffusion to suggest an acute infarct. Hemorrhage: No evidence of prior parenchymal hemorrhage on the gradient echo images. Mass Lesion/ Mass Effect: No evidence of an intracranial mass or extra-axial fluid collection. No abnormal parenchymal or leptomeningeal enhancement is noted following contrast administration. No significant mass effect. Chronic Change: Minimal chronic change. Parenchyma: No significant volume loss for age. The brain parenchyma is otherwise within normal limits of signal intensity and morphology. Ventricles: Normal caliber and morphology. Skull Base: Hypothalamic and pituitary region are grossly normal. Craniocervical junction is normal. No significant marrow replacement process. Vasculature: Major intracranial arterial structures, and dural venous sinuses show typical flow void, suggesting patency by spin echo criteria. Other: The visualized paranasal sinuses and mastoid air cells are clear. The orbits and extracranial soft tissues are unremarkable. Postoperative changes involve the RIGHT globe. IMPRESSION IMPRESSION: No acute findings. No intracranial metastases. Quantitative Equity Head: IMMANUEL Transcribe Date/Time: Nov 10 2023 3:12P Dictated by : ALEJANDRO TORREZ MD This examination was interpreted and the report reviewed and electronically signed by: ALEJANDRO TORREZ MD on Nov 10 2023 3:16PM EST [facility] Radiology Study observation (narrative) [facility] MR Brain WO and W contrast I VOrdered By: Ccf Provider on 11-10-[address] [facility] NM Heart Perfusion W stress and W radionuclide Annette 11-09-2023 * * *Final Report* * * DATE OF EXAM: Nov 09 2023 11:04AM [facility] 0006 - [place] CARDIAC PERF STRESS/PHARM / PROCEDURE REASON: multiple diagnoses * * * * Physician Interpretation * * * * Stress [employer] Report: [facility] RISHI-2 Date of service: 11/09/2023 9:01:00 AM Supervising physician: Arina Jorge MD PATIENT: Name: MR. STEVIE SANCHEZ Age: 73 years Gender: M The supervising physician was in the department and immediately available. * * * Final * * * PATIENT: Name: MR. STEVIE SANCHEZ Age: 73 years Gender: M CONCLUSIONS: 1. SPECT Perfusion Study: Normal. 2. [...] Gated Rest IR LVEF % 65 69 Prior Study Comparison No prior nuclear cardiology exam available for comparison. Nuclear Med Report:1-Day Gated SPECT Myocardial Perfusion with Regadenoson Stress: Myocardial perfusion imaging was performed at rest 30 minutes following the IV injection of the radiotracer. The patient received 0.4 mg of regadenoson, via rapid IV push, immediately followed by radiotracer IV. Gated post stress tomographic imaging was performed 30 to 60 minutes later. See administered radiotracer and doses below. [facility] Date of service: 11/09/2023 9:01:00 AM Ordering Physician: PAULA LIZAMA. Requesting Physician: Indication: Preop eval for noncard surg with high risk, poor exercise tolerance Fellow: Sherif Houser MD Interpreting physician: Arina Jorge MD Height: 172.72 cm BSA: 1.98 m Weight: 82.10 kg BMI: 27.5 kg/m Exam Type: Rest Stress Radiopharm: Tc-99m Tetrofosmin Tc-99m Tetrofosmin Dosage(mCi): 12 32.3 Stress Agent: Regadenoson 0.4mg Supply provided from [facility] Resting Blood Press: 120/80 mmHg Image Quality The overall study imaging quality was deemed to be good. FINDINGS: Stress IR Gated Stress IR Gated Rest IR LVEF: 65 % 69 % ED Volume: 88 ml 81 ml ES Volume: 31 ml 25 ml TID: 1.08 Perfusion Findings Stress IR - Summed Score=0 All segments demonstrate normal perfusion. Rest IR - Summed Score=0 All segments demonstrate normal perfusion. Stress IR Rest IR Summed Score=0 Summed Score=0 LEFT VENTRICLE The left ventricle is normal in size. Left ventricular systolic function is normal. Right Ventricle The right ventricle is normal in size. Right ventricle systolic function is normal. Stress Test Findings: There is no scintigraphic evidence for inducible ischemia. There is no evidence of scarring. * * * Final * * * Stress ECG Report: [facility] Date of service: 11/09/2023 9:01:00 AM Ordering physician: PAULA LIZAMA audio specialist: Kevin Meyer Pattern Lease Inspector: Cecile Hall Fellow: Sherif Houser MD Interpreting physician: Arina Jorge MD Patient name: MR. STEVIE SANCHEZ Age: 73 years Gender: M Height: 172.72 cm BSA: 1.98 m Weight: 82.10 kg BMI: 27.5 kg/m Indication: Encounter for pre-procedural cardiovascular examination for non-cardiac surgery Stress ECG Conclusion: Conclusion: Normal Stress ECG Summary: The patient's resting heart rate was 64 bpm and blood pressure was 120/80 mmHg. The test was terminated due to end of protocol. No symptoms provoked during stress. The maximum heart rate was 82 bpm, which is 55% of the predicted heart rate for age. Peak blood pressure was 120/84 mmHg. The double product achieved was 9840. Medications: Last Used LISINOPRIL and HCTZ 14 Hours AMLODIPINE 14 Hours Resting ECG: Normal Sinus Rhythm, Short TN and Nonspecific T Wave Changes Pharamcologic Protocol: Regadenoson Stress Exercise Table: +-----+--+---+---+ Stage HR SYS JANEE +-----+--+---+---+ 1 79 +-----+--+---+---+ 2 81 122 84 +-----+--+---+---+ 3 85 +-----+--+---+---+ 4 82 120 84 +-----+--+---+---+ +-----+--+---+---+ HR SYS JANEE +-- (more content not included)... DIVISION OF RADIOLOGY Provider, [facility] - 11/09/2023 * * *Final Report* * * DATE OF EXAM: Nov 09 2023 11:04AM [facility] 0006 - [place] CARDIAC PERF STRESS/PHARM / PROCEDURE REASON: multiple diagnoses * * * * Physician Interpretation * * * * Stress [employer] Report: [facility]2 Date of service: 11/09/2023 9:01:00 AM Supervising physician: Arina Jorge MD PATIENT: Name: MR. STEVIE SANCHEZ Age: 73 years Gender: M The supervising physician was in the department and immediately available. * * * Final * * * PATIENT: Name: MR. STEVIE SANCHEZ Age: 73 years Gender: M CONCLUSIONS: 1. SPECT Perfusion Study: Normal. 2. [...] Gated Rest IR LVEF % 65 69 Prior Study Comparison No prior nuclear cardiology exam available for comparison. Nuclear Med Report:1-Day Gated SPECT Myocardial Perfusion with Regadenoson Stress: Myocardial perfusion imaging was performed at rest 30 minutes following the IV injection of the radiotracer. The patient received 0.4 mg of regadenoson, via rapid IV push, immediately followed by radiotracer IV. Gated post stress tomographic imaging was performed 30 to 60 minutes later. See administered radiotracer and doses below. [facility] [place] Date of service: 11/09/2023 9:01:00 AM Ordering Physician: PAULA LIZAMA. Requesting Physician: Indication: Preop eval for noncard surg with high risk, poor exercise tolerance Fellow: Sherif Houser MD Interpreting physician: Arina Jorge MD Height: 172.72 cm BSA: 1.98 m Weight: 82.10 kg BMI: 27.5 kg/m Exam Type: Rest Stress Radiopharm: Tc-99m Tetrofosmin Tc-99m Tetrofosmin Dosage(mCi): 12 32.3 Stress Agent: Regadenoson 0.4mg Supply provided from [facility] Resting Blood Press: 120/80 mmHg Image Quality The overall study imaging quality was deemed to be good. FINDINGS: Stress IR Gated Stress IR Gated Rest IR LVEF: 65 % 69 % ED Volume: 88 ml 81 ml ES Volume: 31 ml 25 ml TID: 1.08 Perfusion Findings Stress IR - Summed Score=0 All segments demonstrate normal perfusion. Rest IR - Summed Score=0 All segments demonstrate normal perfusion. Stress IR Rest IR Summed Score=0 Summed Score=0 LEFT VENTRICLE The left ventricle is normal in size. Left ventricular systolic function is normal. Right Ventricle The right ventricle is normal in size. Right ventricle systolic function is normal. Stress Test Findings: There is no scintigraphic evidence for inducible ischemia. There is no evidence of scarring. * * * Final * * * Stress ECG Report: [place] [id number] Date of service: 11/09/2023 9:01:00 AM Ordering physician: PAULA LIZAMA audio specialist: Kevin Meyer Pattern Lease Inspector: Cecile Hall Fellow: Sherif Houser MD Interpreting physician: Arina Jorge MD Patient name: MR. STEVIE SANCHEZ Age: 73 years Gender: M Height: 172.72 cm BSA: 1.98 m Weight: 82.10 kg BMI: 27.5 kg/m Indication: Encounter for pre-procedural cardiovascular examination for non-cardiac surgery Stress ECG Conclusion: Conclusion: Normal Stress ECG Summary: The patient's resting heart rate was 64 bpm and blood pressure was 120/80 mmHg. The test was terminated due to end of protocol. No symptoms provoked during stress. The maximum heart rate was 82 bpm, which is 55% of the predicted heart rate for age. Peak blood pressure was 120/84 mmHg. The double product achieved was 9840. Medications: Last Used LISINOPRIL and HCTZ 14 Hours AMLODIPINE 14 Hours Resting ECG: Normal Sinus Rhythm, Short TN and Nonspecific T Wave Changes Pharamcologic Protocol: Regadenoson Stress Exercise Table: +-----+--+---+---+ Stage HR SYS JANEE +-----+--+---+---+ 1 79 +-----+--+---+---+ 2 81 122 84 +-----+--+---+---+ 3 85 +-----+--+---+---+ 4 82 120 84 +-----+--+---+---+ +-----+--+---+---+ HR SYS JANEE +-----+--+---+---+ Final 82 120 84 +-----+--+---+---+ +------+ --+ ----+ Stage ST: Lead, Kleberg, MM Arrhythmias +------+ --+ ----+ 1 Regadenoson (more content not included)... [facility] Radiology Study observation (narrative) [facility] NM Heart Perfusion W stress and W radionuclide IVOrdered By: Ccf Provider on 11-09-[address] [facility] XR Chest PA and Lateralon IMPRESSION: See result Quantitative Equity Head: IMMANUEL Transcribe Date/Time: Nov 09 2023 7:39A Dictated by : IVON PEREIRA MD This examination was interpreted and the report reviewed and electronically signed by: IVON PEREIRA MD on Nov 09 2023 7:41AM [facility] DIVISION OF RADIOLOGY * * *Final Report* * * DATE OF EXAM: Nov 09 2023 7:35AM [facility] 5291 - XR CHEST 2V FRONTAL/LAT / PROCEDURE REASON: multiple diagnoses * * * * Physician Interpretation * * * * EXAMINATION: CHEST RADIOGRAPH (2 VIEW FRONTAL & LATERAL) CLINICAL HISTORY: Malignant neoplasm of lower lobe of right lung (HCC) Pre-procedure lab exam MQ: XC2_6 EXAM DATE/TIME: 11/09/2023 7:35 AM COMPARISON: CT chest from 08/28/2023 RESULT: Lines, tubes, and devices: None. Lungs and pleura: Right retrocardiac opacity corresponds with the right lower lobe mass seen on the recent chest CT. Calcified granulomatous in right lower lobe. No new consolidations have developed. No pulmonary edema or pneumothorax. Cardiomediastinal silhouette: Normal cardiomediastinal silhouette. Bones and soft tissues: Unremarkable. DIVISION OF RADIOLOGY Provider, Augustina Juarez [facility] - 11/09/2023 * * *Final Report* * * DATE OF EXAM: Nov 09 2023 7:35AM [facility] 5291 - XR CHEST 2V FRONTAL/LAT / PROCEDURE REASON: multiple diagnoses * * * * Physician Interpretation * * * * EXAMINATION: CHEST RADIOGRAPH (2 VIEW FRONTAL & LATERAL) CLINICAL HISTORY: Malignant neoplasm of lower lobe of right lung (HCC) Pre-procedure lab exam MQ: XC2_6 EXAM DATE/TIME: 11/09/2023 7:35 AM COMPARISON: CT chest from 08/28/2023 RESULT: Lines, tubes, and devices: None. Lungs and pleura: Right retrocardiac opacity corresponds with the right lower lobe mass seen on the recent chest CT. Calcified granulomatous in right lower lobe. No new consolidations have developed. No pulmonary edema or pneumothorax. Cardiomediastinal silhouette: Normal cardiomediastinal silhouette. Bones and soft tissues: Unremarkable. IMPRESSION IMPRESSION: See result Quantitative Equity Head: IMMANUEL Transcribe Date/Time: Nov 09 2023 7:39A Dictated by : IVON PEREIRA MD This examination was interpreted and the report reviewed and electronically signed by: IVON PEREIRA MD on Nov 09 2023 7:41AM EST [facility] Radiology Study observation (narrative) [facility] XR Chest PA and LateralOrder ed By: Ccf Provider on 11-09-[address] [facility] SIX MINUTE WALKon 10-17-2023 Srinivasan Deng, MEDICAL RECEPTION 10/17/2023 12:03 PM RESPIRATORY THERAPY SIX MINUTE WALK TEST OXIMETRY REPORT Six Minute Walk Test for This Encounter Oxygen Device Liters FIO2 SpO2% HR Activity Feet Speed (MPH) Flag R/A 99 81 Resting R/A 98 91 Six Minute Walk 975 1.8 R/A 99 82 Recovery 1 minute post R/A 99 85 Recovery 2 minute post R/A 99 85 Recovery 3 minute post General Information Height Weight Pulse Oximetry Site Oximeter Pre Blood Pressure Post Blood Pressure Total Time Spent (min) 171.8 cm (5' 7.64) 81 kg (178 lb 9.2 oz) Forehead Masimo 123/75 110/74 30 _ Distance Walked (meters) Distance Walked (feet) Male Predicted Walk Distance (feet) Male Lower Limit of Normal (feet) Male % Predicted Total Duration Of The Stops (seconds) 297.18 975 1615.81 1113.81 60.3 -- _ Lowest SpO2 During 6 Minute Walk Pre-Karlos Dyspnea Rating Pre-Karlos Fatigue Rating Post Karlos Dyspnea Rating Post Karlos Fatigue Rating 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 SIX MINUTE WALKOrdered By: Eldon Gentile on 10-17-[address] [facility] Work Phone: ANES POSTPROC EVALon 024 ANES POSTPROC EVAL HNO ID: [id number] Author: PRADEEP AN MD Service: Anesthesiology Author Type: Anesthesiologist Type: Anesthesia Postprocedure Evaluation Filed: 09/19/2023 11:15 Note Text: POST ANESTHESIA EVALUATION NOTE : 1950 Procedure Summary Date: 09/19/23 Room / Location: [facility] / [facility] Anesthesia Start: 1009 Anesthesia Stop: 1113 Procedure: BRONCHOSCOPY,RIGID/FLEXIBL E W/ FLUORO,W/ENDOBRONCHIAL ULTRASOUND (EBUS) GUIDED TRANSTRACHEAL/ TRANSBRONCHIAL ASPIRATION/BIOPSY,1 OR 2 MEDIASTINAL AND/OR HILAR LYMPH NODE STATIONS/STRUCTURES (Bronchus) Diagnosis: Lung mass (Lung mass [R91.8]) Surgeons: Arcadio Hodgson MD Responsible Provider: Pradeep An MD Anesthesia Type: general ASA Status: 4 Anesthesia Type: general Airway Type: LMA Last Vitals Vitals Value Taken Time BP 96/47 09/19/23 1113 Temp 36 09/19/23 1115 Pulse 65 09/19/23 1115 Resp 24 09/19/23 1115 SpO2 97 % 09/19/23 1115 Vitals shown include unfiled device data. Post Anesthesia Patient Status Patient Evaluation: PACU. PACU/ICU Patient Condition: stable. Anticipated Disposition: phase 2 then home. Neurological Status: aware and responsive. Pulmonary Status: breathing comfortably on room air Airway Control: returned to baseline unsupported. Cardiovascular Status: stable. Pain Management: clinically adequate Postoperative Hydration: acceptable. Intraoperative Events: no significant anesthesia events Recommendation: continue current plan of care. Anesthesia Observations No Documentation SIGNATURE: Pradeep An MD PATIENT NAME: Stevie Sanchez DATE: September 19, 2023 TIME: 11:15 AM CSN: [id number] [facility] ANES PRE-OPon 09-19-2023 ANES PRE-OP HNO ID: [id number] Author: PRADEEP NA MD Service: Anesthesiology Author Type: Anesthesiologist Type: Anesthesia Preprocedure Evaluation Filed: 09/19/2023 09:43 Note Text: ANESTHESIOLOGY DAY OF SURGERY NOTE : 1950 Procedure Information Date/Time: 09/19/23 1050 Procedure: BRONCHOSCOPY,RIGID/FLEXIBL E W/ FLUORO,W/ENDOBRONCHIAL ULTRASOUND (EBUS) GUIDED TRANSTRACHEAL/ TRANSBRONCHIAL ASPIRATION/BIOPSY,1 OR 2 MEDIASTINAL AND/OR HILAR LYMPH NODE STATIONS/STRUCTURES (Bronchus) [facility]: [facility] Surgeons: Arcadio Hodgson MD Estimated body mass index is 28.39 kg/m? as calculated from the following: Height as of 09/14/23: 171.3 cm (5' 7.44). Weight as of 09/14/23: 83.3 kg (183 lb 10.3 oz). Most recent hematocrit and potassium results: Hematocrit 47.5 09/11/2023 Potassium 3.5 09/11/2023 Relevant Problems No relevant active problems I - PHYSICAL EVALUATION AIRWAY Patient intubated: No. Tracheostomy tube not present Mallampati: II. TM distance: >3 FB. Neck ROM: full ROM without neurological symptoms. Mouth opening: adequate. Short neck: no. Thick neck: no DENTAL Normal dental observations. Dental findings: teeth intact. Dentures, upper: complete. Dentures, lower: partial. Additional exam findings: yes. CARDIOVASCULAR Normal cardiovascular observations. Rhythm: regular Rate: normal PULMONARY Normal pulmonary observations. Breath sounds clear to auscultation. II - ANESTHESIA PLAN ASA Score: 4 Anesthetic Plan: general Airway type: LMA The patient is not a current smoker. NPO Status: adequate Beta [employer] Monitoring Plan Monitoring plan: standard ASA. Post Procedure Analgesic Plan Postoperative analgesic plan: multimodal analgesia. Informed Consent Anesthetic risks, benefits, alternatives, personnel and consent discussed: yes. Patient / Responsible Libertarian agrees to proceed: yes Patient / Surrogate agrees to blood products: yes Significant changes in the patient condition since the History and Physical, not otherwise documented in primary service progress note: no. Potential Anesthesia issues that may suggest increased risk of complications or contraindication to planned procedure: none. Vitals Value Taken Time BP 116/74 09/19/23926 Pulse 79 09/19/23926 Resp 16 09/19/23926 Temp 36.3 ?C (97.3 ?F) 09/19/23926 SpO2 96 % 09/19/23926 No current facility-administered medications on file as of 09/19/2023. Outpatient Medications as of 09/19/2023 Medication Sig fluticasone-salmeterol (WIXELA INHUB) 250-50 mcg/dose inhaler Inhale 1 Puff as instructed two times a day. lisinopril-hydroCHLOROthia zide (ZESTORETIC) 20-12.5 mg per tablet Take 1 tablet by mouth once daily. amLODIPine (NORVASC) 5 mg tablet Take 1 tablet by mouth once daily. atorvastatin (LIPITOR) 20 mg tablet Take 1 tablet by mouth once daily. gabapentin (NEURONTIN) 300 mg capsule TAKE 2 CAPSULES BY MOUTH 3 TIMES A DAY iv contrast (will be provided with radiology test) CT ABD/PEL -Inject, intravenously, once for 1 dose.No IV [...] in the CT contrast administration guidelines link. (Patient not taking: Reported on 07/28/2023) iv contrast (will be provided with radiology test) CT ABD/PEL -Inject, intravenously, once for 1 dose.No IV [...] in the CT contrast administration guidelines link. (Patient not taking: Reported on 07/28/2023) I have interviewed and examined the patient. I have reviewed the medical record and/or the pre-anesthesia evaluation, pertinent labs, and test results. This contains updated information obtained within 48 hours of Surgery/Procedure. SIGNATURE: Pradeep An MD PATIENT NAME: Stevie Sanchez DATE: September 19, 2023 TIME: 9:42 AM CSN: [id number] [facility] Bacteria Tiss Culton 2 024 Bacteria identified Cx Nom (Tiss) ORGANISM ID: 1 Moderate Escherichia coli GRAM STAIN: Rare Gram negative bacilli No Polymorphonuclear Leukocytes ORGANISM ID: 1 (ESCHERICHIA COLI) ANTIBIOTIC INTERPRETATION DHIRAJ STATUS REFERENCE RANGE Ampicillin S <=2 F Susceptible <=8 , [...] <0.5 , Intermediate >=.5 , Resistant >=1 Abnormal [facility] Comment on above: Performed By: #### 1 1475-1, 83947-5 ####[facility] LABCLIA [id number] [address] OF [place] CYTOLOGY NON-GYNon 4 ADEQUACY INTERPRETATION Normal [facility] Comment on above: Order Comment: Speci men Type: SPECIMEN OBTAINED BY ASPIRATIONOrdering Facility: [facility] Address: [address] [place] [address] Result Comment: A: # 1 Lymphoid sample #2 Limited lymphoid sample #3 Non-diagnostic B: #1,2 Non-diagnostic C: #1 Acute inflammation and necrosis #2 Non-diagnostic D: # 1 Rare atypical cells in background of acute inflammation #[address] Murphy / Sierra Metz Each letter in the above intra-procedural assessment refers to a unique site. The specific site is indicated in the final diagnosis portion of the report. Each number in this assessment references a discrete evaluation episode. Intra-procedural assessment performed at [facility], [address] [place] [address] Performed By: #### C YTONON ####[place] [facility]IA [id number] [address] OF [facility] CASE REPORT Normal [facility] Comment on above: Order Comment: Speci men Type: SPECIMEN OBTAINED BY ASPIRATIONOrdering Facility: [facility] Address: [address] [place] [address] Result Comment: [facility] Cytology Report Case: [id number] Authorizing Provider: Arcadio Hodgson MD Collected: 09/19/2023 10:24 AM Ordering Location: [facility] Received: 09/19/2023 11:28 AM Endoscopy - ENDO Pathologist: Oc Murphy MD Specimens: A) - Lymph Node, Transbronchial, 11RS B) - Lymph Node, Transbronchial, 11RI C) - Lung, Right Lower Lobe D) - Lung, Right Lower Lobe Performed By: #### C YTONON ####[facility] [facility]ORYCLIA [id number] [address] CLINICAL HISTORY Normal [facility] Comment on above: Order Comment: Speci men Type: SPECIMEN OBTAINED BY ASPIRATIONOrdering Facility: [facility] Address: [address] [place] [address] Result Comment: Pre- op diagnosis: Lung mass [R91.8] Right lower lobe nodule re-biopsy History of prostate cancer Former smoker Performed By: #### C YTONON ####[facility] [facility]ORYCLIA [id number] [address] DIAGNOSIS COMMENT Normal [facility] Comment on above: Order Comment: Speci men Type: SPECIMEN OBTAINED BY ASPIRATIONOrdering Facility: [facility] Address: [address] [place] [address] Result Comment: Martha leyva 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 This information and the final diagnosis for part D were reported by secure staff message to Dr. Hodgson on 09/20/2023 at 1330. D. This case was interpreted in conjunction with the related surgical pathology case [id number] with diagnostic concurrence. The atypical cells seen during GWEN correspond to the squamous cell carcinoma, which is best characterized on the Pap stained slides (ThinPrep and smears) and in the cell block. Performed By: #### C YTONON ####[facility] [facility] [id number] [address] FINAL DIAGNOSIS Normal [facility] Comment on above: Order Comment: Speci men Type: SPECIMEN OBTAINED BY ASPIRATIONOrdering Facility: [facility] Address: [address] [place] [address] Result Comment: A - Lymph Node, Transbronchial, Aspirate/Fine Needle Aspirate - 11RS Negative for malignant cells. Benign lymphoid sample. B - Lymph Node, Transbronchial, Aspirate/Fine Needle Aspirate - 11RI Negative for malignant cells. Not a lymphoid sample. C - Lung, Right Lower Lobe, Aspirate/Fine Needle Aspirate Positive for malignant cells. 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 D - Lung, Right Lower Lobe, [place] Positive for malignant cells. 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 The following cell blocks were associated with this case: A1 Cell Block, Alcohol Fixed B1 Cell Block, Alcohol Fixed C1 Cell Block, Alcohol Fixed D1 Cell Block, Alcohol Fixed Performed By: #### C YTONON ####[facility] [facility]ORYCLIA [id number] [address] STATES OF [facility] FINAL PERFORMING LAB Normal [facility] Comment on above: Order Comment: Speci men Type: SPECIMEN OBTAINED BY ASPIRATIONOrdering Facility: [facility] Address: [address] [place] [address] Result Comment: Tech nical component, linotype worker screening performed at [facility], [address] [place] [address] CLIA# [id number] Diagnostic interpretation performed at [facility], [address] [place] [address] CLIA# [id number] Lamination Inspector: Oc Murphy M.D. Performed By: #### C YTONON ####[facility] [facility]ORYCLIA [id number] [address] GROSS DESCRIPTION Normal [facility] Comment on above: Order Comment: Speci men Type: SPECIMEN OBTAINED BY ASPIRATIONOrdering Facility: [facility] Address: [facility] [place] [address] Result Comment: A. L ymph Node, Transbronchial 30 cc clear pink CytoLyt with particles. ThinPrep and Cell Block prepared and 6 smears (3 air dried and 3 fixed). B. Lymph Node, Transbronchial 30 cc clear colorless CytoLyt with scant particles. ThinPrep and Cell Block prepared and 4 smears (2 air dried and 2 fixed). C. Lung, Right Lower Lobe 30 cc cloudy red CytoLyt with material. ThinPrep and Cell Block prepared and 4 smears (2 air dried and 2 fixed). D. Lung, Right Lower Lobe 30 cc clear light pink CytoLyt with brush with particles. ThinPrep and Cell Block prepared and 4 smears (2 air dried and 2 fixed). Performed By: #### C YTONON ####[facility] [facility]ORYCLIA [id number] [address] STATES OF [place] ORDER COMMENT Normal [facility] Comment on above: Order Comment: Speci men Type: SPECIMEN OBTAINED BY ASPIRATIONOrdering Facility: [facility] Address: [address] [place] [address] Result Comment: Pre- op diagnosis: Lung mass [R91.8] Performed By: #### C YTONON ####[facility] [facility]ATORYCLIA [id number] [place] [address] [place] Microorganism Spec Culton Microorganism identified Cx Nom (Unsp spec) CULTURE, AFB: No Acid Fast Bacilli isolated after 42 days AFB STAIN: No acid fast bacilli seen by flurochrome stain [facility] Comment on above: Performed By: #### 1 1475-1 ####[facility] LABCLIA [id number] [place] [address] [place] Microorganism identified Cx Nom (Unsp spec) CULTURE, FUNGAL: No Fungus isolated after 28 days FUNGAL SMEAR: No fungus seen [facility] Comment on above: Performed By: #### 1 1475-1, 83991-5 ####[facility] LABCLIA [id number] [place] [address] [place] Microorganism identified Cx Nom (Unsp spec) CULTURE, AFB: No Acid Fast Bacilli isolated after 42 days AFB STAIN: No acid fast bacilli seen by flurochrome stain [facility] Comment on above: Performed By: #### 1 1475-1, 59118-6 ####[facility] LABCLIA [id number] [place] [address] [place] NURSING PROGon 09-19-2023 NURSING PROG HNO ID: [id number] Author: ERMA ACUNA RN Service: Nursing Author Type: Registered Nurse Type: Nursing Progress Note Filed: 09/19/2023 11:58 Note Text: PATIENT EDUCATION TOPIC: PROCEDURE / SURGERY: Post Procedure Teaching: Symptom Management PATIENT NAME: Stevie Sanchez PATIENT LOCATION: [facility] ENDO POOL/[facility] ENDO POOL READINESS TO LEARN COGNITIVE ABILITY: Alert and oriented MOTIVATION TO LEARN: Interested FAMILY SUPPORT: None - Unavailable/disinterested INSTRUCTION PROVIDED TO: Patient PATIENT LEARNS BEST BY: Individual Instruction Written Instruction - Hand-outs Verbal Instruction FACTORS AFFECTING LEARNING: None PHYSICAL LIMITATIONS AFFECTING LEARNING: None LEARNING RESPONSE DIAGNOSIS: ADULT: bronchoscopy PATIENT/FAMILY RESPONSE: Verbalizes understanding of: POST-PROCEDURE INSTRUCTIONS-Correct actions to take to reduce post procedure complications METHOD OF INSTRUCTION: Individual instruction FOLLOW-UP PLAN: Complete - No need for follow-up INSTRUCTIONAL AIDS USED: NA SUPPLEMENTAL MATERIAL PROVIDED TO PATIENT: None REFERRAL (RECOMMENDATION): None Electronically Signed By: Erma Acuna [facility] NURSING PROG HNO ID: [id number] Author: JOE FALLON RN Service: ? Author Type: Registered Nurse Type: Nursing Progress Note Filed: 09/19/2023 09:30 Note Text: PATIENT EDUCATION TOPIC: PROCEDURE / SURGERY: Pre-op Teaching: Logistics Protocols PATIENT NAME: Stevie Sanchez PATIENT LOCATION: [facility] ENDO POOL/[facility] ENDO POOL READINESS TO LEARN COGNITIVE ABILITY: Alert and oriented MOTIVATION TO LEARN: Eager Interested FAMILY SUPPORT: Unable to assess - Family not present INSTRUCTION PROVIDED TO: Patient PATIENT LEARNS BEST BY: Verbal Instruction FACTORS AFFECTING LEARNING: None PHYSICAL LIMITATIONS AFFECTING LEARNING: None LEARNING RESPONSE DIAGNOSIS: ADULT: PATIENT/FAMILY RESPONSE: Information received as demonstrated by interest and questions METHOD OF INSTRUCTION: Verbal instruction FOLLOW-UP PLAN: Complete - No need for follow-up INSTRUCTIONAL AIDS USED: NA SUPPLEMENTAL MATERIAL PROVIDED TO PATIENT: None REFERRAL (RECOMMENDATION): None Electronically Signed By: Joe Fallon [facility] PD-L1 22C3on 09-19-2023 AP BIOMARKER DISCLAIMER [facility] Comment on above: Order Comment: oRdy adams Type: TISSUE SPECIMENOrdering Facility: [facility] Address: [address] [place] [address] Result Comment: Everett davey Developed Test (LDT) Disclaimer: Performance characteristics of immunohistochemical, immunofluorescent and chromogenic in-situ hybridization tests have been determined by the performing laboratory within [facility]???s Quoc Mcallister Pathology and Laboratory Medicine Department ([facility], [facility], [facility], [facility], [facility], or [facility]) in a [...] negative controls stain appropriately. Performed By: #### S , [id number] ####[facility] LABCLIA [id number] [place] [address] [place] AP BLOCK ID B1 [facility] Comment on above: Order Comment: Rody adams Type: TISSUE SPECIMENOrdering Facility: [facility] Address: [address] [place] [address] Performed By: #### S , [id number] ####[facility] LABCLIA [id number] [place] [address] [place] BIOMARKER INTERPRETATION COMMENT AND REFERENCE RANGE [facility] Comment on above: Order Comment: Vadimi bryan Type: TISSUE SPECIMENOrdering Facility: [facility] Address: [address] [place] [address] Result Comment: Inte rpretation standard: TPS: The Tumor Proportion Score is [...] Product label for additional information. KEYTRUDA - (https://www.[email or web address] [email or web address]/prescribing-information/) LIBTAYO - (https://www.Tagloc[employer]/sites/default/files/Libtayo_FPI.pdf) Performed By: #### S , [id number] ####[facility] LABCLIA [id number] [address] BIOMARKER METHOD Immunohistochemistry was performed on formalin fixed paraffin-embedded tissue using the mouse monoclonal antibody 22C3 ([employer]; [place], [place]) followed by ultrasensitive bright field detection (Optiview with amplification [[employer], [place]]). [facility] Comment on above: Order Comment: Speci men Type: TISSUE SPECIMENOrdering Facility: [facility] Address: [address] [place] [address] Performed By: #### S , [id number] ####[facility] LABCLIA [id number] [address] CASE NUMBER PD-L1 [id number] [facility] Comment on above: Order Comment: Vadimi bryan Type: TISSUE SPECIMENOrdering Facility: [facility] Address: [address] [place] [address] Result Comment: For tumor type see original report Performed By: #### S , [id number] ####[facility] LABCLIA [id number] [address] FINAL PERFORMING LAB [facility] Comment on above: Order Comment: Speci men Type: TISSUE SPECIMENOrdering Facility: [facility] Address: [address] [place] [address] Result Comment: Diag nostic interpretation performed at [facility], [address] [place] [address] CLIA: [id number] Lamination Inspector: Ike Reaves MD Electronically signed out by: Armando Damian MD Performed By: #### S , [id number] ####[facility] LABCLIA [id number] [place] [address] [place] FIXATIVE Formalin, 10% Neutra l Buffered [facility] Comment on above: Order Comment: Speci men Type: TISSUE SPECIMENOrdering Facility: [facility] Address: [address] [place] [address] Performed By: #### S , [id number] ####[facility] LABCLIA [id number] [place] [address] [place] PD-L1 22C3 TPS (LUNG) INTERPRETATION Negative [facility] Comment on above: Order Comment: Speci men Type: TISSUE SPECIMENOrdering Facility: [facility] Address: [address] [place] [address] Performed By: #### S , [id number] ####[facility] LABCLIA [id number] [place] [address] [place] PD-L1 TUMOR TYPE Other (See Comment) [facility] Comment on above: Order Comment: Speci men Type: TISSUE SPECIMENOrdering Facility: [facility] Address: [address] [place] [address] Performed By: #### S , [id number] ####[facility] LABCLIA [id number] [place] [address] [place] TUMOR PROPORTION SCORE (TPS) 0 [facility] Comment on above: Order Comment: Speci men Type: TISSUE SPECIMENOrdering Facility: [facility] Address: [address] [place] [address] Performed By: #### S , [id number] ####[facility] LABCLIA [id number] [place] [address] [place] SURGICAL PATHOLOGYon 07-23-2 024 CASE REPORT [facility] Comment on above: Order Comment: Speci men Type: TISSUE SPECIMENOrdering Facility: [facility] Address: [address] [place] [address] Result Comment: Surg [facility] Pathology Report Case: [id number] Authorizing Provider: Arcadio Hodgson MD Collected: 09/19/2023 10:32 AM Ordering Location: [facility] Received: 09/19/2023 11:33 AM Endoscopy - ENDO Pathologist: Armando Damian MD Specimens: A) - Lung, Right Lower Lobe, Transbronchial Biopsy, FNA B) - Lung, Right Lower Lobe, Transbronchial Biopsy, endobronchial biopsy mass Performed By: #### S , [id number] ####[facility] LABCLIA [id number] [address] OF [place] CLINICAL HISTORY Normal [facility] Comment on above: Order Comment: Speci men Type: TISSUE SPECIMENOrdering Facility: [facility] Address: [address] [place] [address] Result Comment: Pre- op diagnosis: Lung mass [R91.8] Performed By: #### S , [id number] ####[facility] LABCLIA [id number] [address] OF [facility] FINAL DIAGNOSIS Normal [facility] Comment on above: Order Comment: Speci men Type: TISSUE SPECIMENOrdering Facility: [facility] Address: [address] [place] [address] Result Comment: A, B . Lung, right lower lobe, bronchoscopic biopsies: - Fragments of keratinizing squamous cell carcinoma. Performed By: #### S , [id number] ####[facility] LABCLIA [id number] [address] [place] FINAL PERFORMING LAB Normal [facility] Comment on above: Order Comment: Speci men Type: TISSUE SPECIMENOrdering Facility: [facility] Address: [address] [place] [address] Result Comment: Diag nostic interpretation performed at [facility], [address] [place] [address] CLIA# [id number] Lamination Inspector: Ike Reaves M.D. Performed By: #### S , [id number] ####[facility] LABCLIA [id number] [place] [address] [place] GROSS DESCRIPTION Normal [facility] Comment on above: Order Comment: Speci men Type: TISSUE SPECIMENOrdering Facility: [facility] Address: [address] [place] [address] Result Comment: A. L jill, Right Lower Lobe, Transbronchial Biopsy Received in formalin multiple segments of cylindrical tissue aggregating to 2.1 x 0.7 x 0.2 cm, dark red and of a soft and friable consistency. Totally submitted in one cassette. B. Lung, Right Lower Lobe, Transbronchial Biopsy Received in formalin are multiple pieces of clark and red, soft tissue aggregating to 2.0 x 0.5 x 0.2 cm. Totally submitted in one cassette. [facility] September 19, 2023 2:40 PM Gross examination performed at [facility], [address] [place] [address] Performed By: #### S , [id number] ####[facility] LABCLIA [id number] [address] [place] Xuan [facility] STEVIE SANCHEZ ([id number]) 1950 M Date Time Provider Department 08/11/23 THAD GARRETT During your visit today, we recorded the following information about you: Thad Garrett MD 08/14/2023 11:00 AM Signed Spoke to patient regarding inhalers. Wixela costing patient close to $25. 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 Advised to bring his inhalers with him next time. Thad Garrett MD Allergies As of Date: 08/11/2023 (No Known Allergies) Date Reviewed: 07/28/2023 Reviewed by: Cristopher Urban LPN - Fully Assessed Order(s):fluticasone-salme terol (WIXELA INHUB) 100-50 mcg/dose inhalerInhale 1 Puff as instructed two times a day.Disp: 60 EachRfl: 2 Prescriptions as of 08/14/2023 - fluticasone-salmeterol (WIXELA INHUB) 100-50 mcg/dose inhaler Inhale 1 Puff as instructed two times a day. - amLODIPine (NORVASC) 5 mg tablet Take 1 tablet by mouth once daily. - atorvastatin (LIPITOR) 20 mg tablet Take 1 tablet by mouth once daily. - gabapentin (NEURONTIN) 300 mg capsule TAKE 2 CAPSULES BY MOUTH 3 TIMES A DAY - iv contrast (will be provided with radiology test) CTA CHST/ABD/PEL LE.No IV access, insert saline lock prior to the sedation, infusion, injection for imaging exam. Discontinue saline lock post exam. If Pt. has a central line or IVAD, may access for administration according to line specific nursing protocol. Once exam is complete flush line and de-access according to line specific nursing protocol in the CT contrast administration guidelines link. - iv contrast (will be provided with radiology test) CTA ABD/PEL LE - No IV access, insert saline lock prior to the sedation, infusion, injection for imaging exam. Discontinue saline lock post exam. If Pt. has a central line or IVAD, may access for administration according to line specific nursing protocol. Once exam is complete flush line and de-access according to line specific nursing protocol in the CT contrast administration guidelines link. - lisinopril-hydroCHLOROthia zide (ZESTORETIC) 20-12.5 mg per tablet Take 1 tablet by mouth once daily. - iv contrast (will be provided with radiology test) CT ABD/PEL -Inject, intravenously, once for 1 dose.No IV [...] the CT contrast administration guidelines link. - iv contrast (will be provided with radiology test) CT ABD/PEL -Inject, intravenously, once for 1 dose.No IV [...] in the CT contrast administration guidelines link. 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 UMECLIDINIUM 62.5 MCG/ACTUATION BLIS* 1 Ea* 2 08/11/2023 08/14/2023 Cmt: Dispense 1 inhaler with 2 refills Route: INHALATION Sig: Inhale 1 Puff as instructed once daily. BEVESPI AEROSPHERE 9 MCG-4.8 MCG HFA* 1 Ea* 3 08/14/2023 08/14/2023 Route: INHALATION Sig: Inhale 2 Puffs as instructed two times a day. FLUTICASONE 100 MCG-SALMETEROL 50 MC* 60 E* 2 08/14/2023 11/12/2023 Route: INHALATION Sig: Inhale 1 Puff as instructed two times a day. Medications Discontinued During This Encounter Prescriptions - tiotropium-olodaterol (STIOLTO RESPIMAT) 2.5-2.5 mcg/actuation (Discontinued) Inhale 2 Puffs as instructed once daily. - glycopyrrolate-formoterol (BEVESPI AEROSPHERE) 9-4.8 mcg (Discontinued) Inhale 2 Puffs as instructed two times a day. - tiotropium bromide (SPIRIVA RESPIMAT) 1.25 mcg/actuation inhaler (Discontinued) Inhale 2 Puffs as instructed once daily. - umeclidinium (INCRUSE ELLIPTA) 62.5 mcg/actuation inhaler (Discontinued) Inhale 1 Puff as instructed once daily. Encounter Num (more content not included)... 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 Start of test and EOFE criteria met. 4 puffs Albuterol (360 mcg) delivered by MDI via holding chamber. HR pre = 89/min, HR post = 88/min. Current ATS/ERS acceptability and repeatability standards for DLCO met with 2 acceptable maneuvers. DLCO is hemoglobin corrected. Hemoglobin obtained from [facility] lab on 06/14/2023. / LF IMPRESSION: Spirometry indicates mild obstruction. There was not a significant bronchodilator response. The diffusing capacity is normal. Electronically Signed On 07-04-2023 15:44:40 EDT by Jamilah Bowling MD ID: [id number] Name: STEVIE SANCHEZ Race: White Ht: 67.64 in Wt: 184.75 lbs Age: 72 Gender: Male : 1950 Dx: Shortness of breath Smoking Hx: Non-smoker Doctor: THAD GARRETT Test Date: 07/04/2023 Site: [facility] Tech: Srinivasan Deng PRE-BRONCH POST-BRONCH Pre LLN Pred ULN %Pred Post %Pred %Chg SPIROMETRY FVC (L) 4.26 2.73 3.67 4.63 116 4.37 119 3 FEV1 (L) 2.40 2.04 2.79 3.50 86 2.47 88 2 FEV1/FVC 0.56 0.64 0.77 0.88 73 0.56 73 0 PEF L/s (L/sec) 5.62 5.57 7.74 9.90 72 5.52 71 -1 FEF50 (L/sec) 1.28 1.49 3.61 5.74 35 1.21 33 -5 FIF50 (L/sec) 3.07 3.17 3 FEF50/FIF50 0.42 90-100 0.38 -8 FIVC (L) 3.69 4.14 12 OOT29-21 (L/sec) 0.69 0.97 2.26 4.10 30 0.78 34 13 Time (sec) 15.29 15.18 0 FET PEF (sec) 0.13 0.11 -10 DARRICK (L) 0.15 0.10 -30 Vol Extrap % (%) 3 2 -32 LUNG DIFFUSION DLCOunc (ml/min/mmHg) 23.32 14.99 24.93 34.86 93 VA (L) 5.99 5.00 6.36 7.73 94 DLunc/VA (ml/min/mmHg/L) 3.89 2.84 4.04 5.24 96 DLCOcor (ml/min/mmHg) 22.59 14.99 24.93 34.86 90 DLcor/VA (ml/min/mmHg/L) 3.77 3.92 96 BHT (sec) 11.56 IVC (L) 4.20 Hgb (gm/dL) 15.80 12-18 Comments: Current ATS/ERS acceptability and repeatability standards for spirometry met. Start of test and EOFE criteria met. 4 puffs Albuterol (360 mcg) delivered by MDI via holding chamber. HR pre = 89/min, HR post = 88/min. Current ATS/ERS acceptability and repeatability standards for DLCO met with 2 acceptable maneuvers. DLCO is hemoglobin corrected. Hemoglobin obtained from [facility] lab on 06/14/2023. / LF PULMONARY FUNCTION LAB [facility] SPIROMETRY WITH DILATOR IF O BSTRUCTEDon 07-04-2023 DLCO (ml/min/mmHg) 23.32 ml/min/mmHg [facility] DLCO/VA (ml/min/mmHg/L) 3.89 ml/min/mmHg/L [facility] DLCOcor (ml/min/mmHg) 22.59 ml/min/mmHg [facility] EUB16-73% POST (L/S) 0.78 L/S [facility] WLN86-48% PRE (L/S) 0.69 L/S [facility] FEV1 PRE (L) 2.[address] [facility] FEV1/FVC POST (%) 56 % [facility] FEV1/FVC PRE (%) 56 % [facility] FEV1_POST (L) 2.[address] [facility] FVC POST (L) 4.[address] [facility] FVC PRE (L) 4.[address] [facility] PEF POST (L/S) 5.52 L/S [facility] PEF PRE (L/S) 5.62 L/S [facility] VA (L) 5.[address] [facility] ANES POSTPROC EVALon 024 ANES POSTPROC EVAL HNO ID: [id number] Author: IVANIA WINSTON MD Service: Anesthesiology Author Type: Anesthesiologist Type: Anesthesia Postprocedure Evaluation Filed: 06/20/2023 14:53 Note Text: POST ANESTHESIA EVALUATION NOTE : 1950 Procedure Summary Date: 06/20/23 Room / Location: [facility] / [facility] Anesthesia Start: 1227 Anesthesia Stop: 1342 Procedure: BRONCHOSCOPY,RIGID/FLEXIBL E W/ FLUORO,W/ENDOBRONCHIAL ULTRASOUND (EBUS) GUIDED TRANSTRACHEAL/ TRANSBRONCHIAL ASPIRATION/BIOPSY,1 OR 2 MEDIASTINAL AND/OR HILAR LYMPH NODE STATIONS/STRUCTURES (Bronchus) Diagnosis: Lung mass (Lung mass [R91.8]) Surgeons: Arcadio Hodgson MD Responsible Provider: Ivania Winston MD Anesthesia Type: general ASA Status: 4 Anesthesia Type: general Airway Type: LMA Last Vitals Vitals Value Taken Time BP 103/74 06/20/23 1446 Temp 36.4 ?C (97.5 ?F) 06/20/23 1338 Pulse 78 06/20/23 1452 Resp 25 06/20/23 1452 SpO2 93 % 06/20/23 1452 Vitals shown include unfiled device data. Post Anesthesia Patient Status Patient Evaluation: PACU. PACU/ICU Patient Condition: stable. Anticipated Disposition: phase 2 then home. Neurological Status: aware and responsive. Pulmonary Status: breathing comfortably on room air Airway Control: returned to baseline unsupported. Cardiovascular Status: stable. Pain Management: clinically adequate Postoperative Hydration: acceptable. Intraoperative Events: no significant anesthesia events Recommendation: continue current plan of care. Anesthesia Observations No Documentation SIGNATURE: Ivania Winston MD PATIENT NAME: Stevie Sanchez DATE: June 20, 2023 TIME: 2:53 PM CSN: [id number] [facility] ANES PRE-OPon 06-20-2023 ANES PRE-OP HNO ID: [id number] Author: IVANIA WINSTON MD Service: Anesthesiology Author Type: Anesthesiologist Type: Anesthesia Preprocedure Evaluation Filed: 06/20/2023 11:22 Note Text: ANESTHESIOLOGY DAY OF SURGERY NOTE : 1950 Procedure Information Date/Time: 06/20/23 1200 Procedure: BRONCHOSCOPY,RIGID/FLEXIBL E W/ FLUORO,W/ENDOBRONCHIAL ULTRASOUND (EBUS) GUIDED TRANSTRACHEAL/ TRANSBRONCHIAL ASPIRATION/BIOPSY,1 OR 2 MEDIASTINAL AND/OR HILAR LYMPH NODE STATIONS/STRUCTURES (Bronchus) [facility]: [facility] Surgeons: Arcadio Hodgson MD Estimated body mass index is 28.7 kg/m? as calculated from the following: Height as of 04/27/23: 173 cm (5' 8.11). Weight as of 06/08/23: 85.9 kg (189 lb 6 oz). Most recent hematocrit and potassium results: Hematocrit 47.7 06/14/2023 Potassium 4.2 05/02/2023 Relevant Problems CARDIO (+) Abdominal aortic aneurysm (AAA) without rupture (HCC) (+) Primary hypertension I - PHYSICAL EVALUATION AIRWAY Patient intubated: No. Tracheostomy tube not present Mallampati: II. TM distance: >3 FB. Neck ROM: full ROM without neurological symptoms. Mouth opening: adequate. Short neck: no. Thick neck: no Chase present: yes DENTAL Dentures, upper: complete. Dentures, lower: partial. Additional exam findings: no II - ANESTHESIA PLAN ASA Score: 4 Anesthetic Plan: general Airway type: LMA The patient is not a current smoker. NPO Status: adequate Beta Sumaya Monitoring Plan Monitoring plan: standard ASA. Post Procedure Analgesic Plan Postoperative analgesic plan: multimodal analgesia. Informed Consent Anesthetic risks, benefits, alternatives, personnel and consent discussed: yes. Patient / Responsible Libertarian agrees to proceed: yes Patient / Surrogate agrees to blood products: blood products not planned DNR status not reviewed with patient and/or family prior to surgery. Significant changes in the patient condition since the History and Physical, not otherwise documented in primary service progress note: no. Potential Anesthesia issues that may suggest increased risk of complications or contraindication to planned procedure: none. No vitals data found for the desired time range. No current facility-administered medications on file as of 06/20/2023. Outpatient Medications as of 06/20/2023 Medication Sig - amLODIPine (NORVASC) 5 mg tablet Take 1 tablet by mouth once daily. - atorvastatin (LIPITOR) 20 mg tablet Take 1 tablet by mouth once daily. - gabapentin (NEURONTIN) 300 mg capsule TAKE 2 CAPSULES BY MOUTH 3 TIMES A DAY - lisinopril-hydroCHLOROthia zide (ZESTORETIC) 20-12.5 mg per tablet Take 1 tablet by mouth once daily. - iv contrast (will be provided with radiology test) CT ABD/PEL -Inject, intravenously, once for 1 dose.No IV [...] the CT contrast administration guidelines link. - iv contrast (will be provided with radiology test) CT ABD/PEL -Inject, intravenously, once for 1 dose.No IV [...] in the CT contrast administration guidelines link. I have interviewed and examined the patient. I have reviewed the medical record and/or the pre-anesthesia evaluation, pertinent labs, and test results. This contains updated information obtained within 48 hours of Surgery/Procedure. SIGNATURE: Ivania Winston MD PATIENT NAME: Stevie Sanchez DATE: June 20, 2023 TIME: 11:21 AM CSN: [id number] [facility] CYTOLOGY NON-GYNon 4 ADEQUACY INTERPRETATION Normal [facility] Comment on above: Order Comment: Speci men Type: SPECIMEN OBTAINED BY ASPIRATIONOrdering Facility: [facility] Address: [address] [place] [address] Result Comment: A: # 1: Lymphoid sample #2: Non-diagnostic B: #1,2: Non-diagnostic C: #1,3: Non-diagnostic #3: Positive, non-small cell carcinoma D: #1,2: Lymphoid sample E: #1,3: Lymphoid sample #2: Non-diagnostic Dr. Khadijah Murphy / Shakila Salas Each letter in the above intra-procedural assessment refers to a unique site. The specific site is indicated in the final diagnosis portion of the report. Each number in this assessment references a discrete evaluation episode. Intra-procedural assessment performed at [facility], [address] [place] [address] Performed By: #### C THOMONOMargie ####[facility] [facility] [id number] [address] LABCLIA [id number] [address] CASE REPORT [facility] Comment on above: Order Comment: Speci men Type: SPECIMEN OBTAINED BY ASPIRATIONOrdering Facility: [facility] Address: [address] [place] [address] Result Comment: [facility] Cytology Report Case: [id number] Authorizing Provider: Arcadio Hodgson MD Collected: 06/20/2023 12:44 PM Ordering Location: [facility] Received: 06/20/2023 01:49 PM Endoscopy - ENDO Pathologist: Oc Murphy MD Specimens: A) - Lymph Node, Transbronchial, 4L B) - Lymph Node, Transbronchial, 2R C) - Bronchus, Right Lower Lobe, Right Lower Lobe Nodule D) - Lymph Node, Transbronchial, 4R E) - Lymph Node, Transbronchial, 11RS Performed By: #### C YTONON ####[facility] [facility]ORYCLIA [id number] [address] LABCLIA [id number] [address] CLINICAL HISTORY Normal [facility] Comment on above: Order Comment: Speci men Type: SPECIMEN OBTAINED BY ASPIRATIONOrdering Facility: [facility] Address: [address] [place] [address] Result Comment: Pre- op diagnosis: Lung mass [R91.8] Prostate cancer, adenocarcinoma in 2020 Performed By: #### C YTONON ####[facility] [id number] [address] LABCLIA [id number] [address] DIAGNOSIS COMMENT C. After reviewing t he entire set of slides, especially the Pap-stained slides, the atypical cells interpreted as non-small cell carcinoma at [facility], are now favored to be reactive atypia secondary to the marked acute inflammation. This information was reported by secure staff message to Dr. Hodgson on 06/22/2023 at 1045 and explains the discrepancy between the [facility] and final diagnoses for this part of the case. Histochemical stains with appropriate controls for Gram stain, AFB, and GMS performed on the cell block are negative for bacterial, mycobacterial and fungal organisms. See also the related surgical pathology case [id number] with similar findings. Normal [facility] Comment on above: Order Comment: Speci men Type: SPECIMEN OBTAINED BY ASPIRATIONOrdering Facility: [facility] Address: [address] [place] [address] Performed By: #### C YTONON ####[facility] [id number] [address] LABCLIA [id number] [address] FINAL DIAGNOSIS Normal [facility] Comment on above: Order Comment: Speci men Type: SPECIMEN OBTAINED BY ASPIRATIONOrdering Facility: [facility] Address: [address] [place] [address] Result Comment: A - Lymph Node, Transbronchial, Aspirate/Fine Needle Aspirate - 4L Negative for malignant cells. Benign lymphoid sample. B - Lymph Node, Transbronchial, Aspirate/Fine Needle Aspirate - 2R Negative for malignant cells. Not a lymphoid sample. C - Bronchus, Right Lower Lobe, Aspirate/Fine Needle Aspirate - Right Lower Lobe Nodule Atypical cells present in a background of marked acute inflammation (see comment). D - Lymph Node, Transbronchial, Aspirate/Fine Needle Aspirate - 4R Negative for malignant cells. Benign lymphoid sample. E - Lymph Node, Transbronchial, Aspirate/Fine Needle Aspirate - 11RS Negative for malignant cells. Benign lymphoid sample. The following cell blocks were associated with this case: A1 Cell Block, Alcohol Fixed B1 Cell Block, Alcohol Fixed C1 Cell Block, Alcohol Fixed D1 Cell Block, Alcohol Fixed E1 Cell Block, Alcohol Fixed Performed By: #### C YTONON ####[facility] [facility]ORYCLIA [id number] [address] STATES OF [facility] LABCLIA [id number] [address] FINAL PERFORMING LAB [facility] Comment on above: Order Comment: Speci men Type: SPECIMEN OBTAINED BY ASPIRATIONOrdering Facility: [facility] Address: [address] [place] [address] Result Comment: Tech nical component, linotype worker screening performed at [facility], [address] [place] [address] CLIA# [id number] Diagnostic interpretation performed at [facility], [address] [id number] CLIA# [id number] Lamination Inspector: Oc Murphy M.D. Performed By: #### C YTONON ####[facility] [facility]ORYCLIA [id number] [address] LABCLIA [id number] [place] [address] [place] GROSS DESCRIPTION Normal [facility] Comment on above: Order Comment: Speci men Type: SPECIMEN OBTAINED BY ASPIRATIONOrdering Facility: [facility] Address: [address] [place] [address] Result Comment: A. L ymph Node, Transbronchial 30 cc clear pink CytoLyt with particles. ThinPrep and Cell Block prepared and 4 smears (2 air dried and 2 fixed). B. Lymph Node, Transbronchial 30 cc clear colorless CytoLyt . ThinPrep and Cell Block prepared and 4 smears (2 air dried and 2 fixed). C. Bronchus, Right Lower Lobe 30 cc hazy red CytoLyt with particles. ThinPrep and Cell Block prepared and 6 smears (3 air dried and 3 fixed). D. Lymph Node, Transbronchial 30 cc clear colorless CytoLyt with scant particles. ThinPrep and Cell Block prepared and 4 smears (2 air dried and 2 fixed). E. Lymph Node, Transbronchial 30 cc clear colorless CytoLyt . ThinPrep and Cell Block prepared and 6 smears (3 air dried and 3 fixed). Performed By: #### C YTONON ####[facility] [facility]ORATORYCLIA [id number] [place] [id number] [facility] LABCLIA [id number] [address] [place] ORDER COMMENT Normal [facility] Comment on above: Order Comment: Speci men Type: SPECIMEN OBTAINED BY ASPIRATIONOrdering Facility: [facility] Address: [address] [place] [address] Result Comment: Pre- op diagnosis: Lung mass [R91.8] Performed By: #### C YTONON ####[place] [facility]ORYCLIA [id number] [address] LABCLIA [id number] [place] [address] [place] ECG COMPLETEon 04-23-2024 ECG COMPLETE Ventricular Rate : 8 0 BPM Atrial Rate : 83 BPM P-R Interval : 155 ms QRS Duration : 89 ms Q-T Interval : 402 ms QTC Calculation(Bazett) : 464 ms Calculated P Napanoch : 59 degrees Calculated R [place]apan[place] : 44 degrees Calculated T Napanoch : 18 degrees Sinus rhythm Atrial premature complexes Abnormal ECG Confirmed by KRYSTLE AGRAWAL MD ([id number]) on 06/22/2023 11:31:58 AM Also confirmed by KRYSTLE AGRAWAL MD ([id number]), content editor SANDY CARBONE ([id number]) on 06/23/2023 2:39:58 PM NAME : STEVIE SANCHEZ PID : [id number] : 1950 Gender : Male Race : ORD : [id number] Procedure Date : Jun 20 2023 14:07:44 Edit Date : Jun 23 2023 14:39:59 Diagnosis: Sinus rhythm Atrial premature complexes Abnormal ECG Confirmed by KRYSTLE AGRAWAL MD ([id number]) on 06/22/2023 11:31:58 AM Also confirmed by KRYSTLE AGRAWAL MD ([id number]), content editor SANDY CARBONE ([id number]) on 06/23/2023 2:39:58 PM Test Reason : Arrhythmia Location : 400 : FVEKG POOL Overread By : KRYSTLE AGRAWAL MD Edited By : SANDY CARBONE Referred By : , Acquired by : LYNDON ORDONEZ [facility] HISTORY PHYSICALon HISTORY PHYSICAL HNO ID: [id number] Author: ARCADIO HODGSON MD Service: Pulmonary Disease Author Type: Physician Type: H&P Filed: 06/20/2023 12:23 Note Text: UPDATED HISTORY AND PHYSICAL EXAMINATION SERVICE DATE: 06/20/2023 SERVICE TIME: 12:23 PM PHYSICAL EXAM MUST BE COMPLETED ON ADMISSION The History and Physical (completed in the past 30 days) has been reviewed and the patient has been examined. The contents accurately reflect the patient's condition with the following additions or revisions since the HANDP was completed. Examination indicates no changes. This HANDP can be found in the Electronic Medical Record dated 06/08/23 (Dr. Garrett). SIGNATURE: Arcadio Hodgson MD PATIENT NAME: Stevie Sanchez DATE: June 20, 2023 TIME: 12:23 PM [facility] NURSING PROGon 06-20-2023 NURSING PROG HNO ID: [id number] Author: MELITA WICK RN Service: Nursing Author Type: Registered Nurse Type: Nursing Progress Note Filed: 06/20/2023 15:13 Note Text: 1338 received pt from endo. HR 140s-150s on monitor. Pt with gasping resp, unable to speak at this time. BREAK OUT MAN remains at bedside. 1341 pt able to speak 1-2 words, states can't take a breath. HR 90s-140s. 1348 HR 90s-110s, pt has coughing spasm then unable to take a breath at times. Dr. Winston at bedside. 1405 EKG at bedside. Tolerating aerosol. HR remains 92, resp easy, pt able to speak in full sent. 1435 Dr. Hodgson at bedside speaking with pt. PT ok to be discharged. Pt states feels back to baseline, resp easy, speaking in full sent 1500 up to BR to void. Gait steady. Dr. Winston states pt ok for discharge. 1510 pt given written and verbal dc instructions. Pt verbalized understanding. [facility] NURSING PROG HNO ID: [id number] Author: VANDANA H[place]KINS RN Service: ? Author Type: Registered Nurse Type: Nursing Progress Note Filed: 06/20/2023 11:38 Note Text: PATIENT EDUCATION TOPIC: PROCEDURE / SURGERY: Pre-op Teaching: Protocols PATIENT NAME: Stevie Sanchez PATIENT LOCATION: [facility] POOL/[facility] POOL READINESS TO LEARN COGNITIVE ABILITY: Alert and oriented MOTIVATION TO LEARN: Eager FAMILY SUPPORT: Unable to assess - Family not present INSTRUCTION PROVIDED TO: Patient PATIENT LEARNS BEST BY: Verbal Instruction FACTORS AFFECTING LEARNING: None PHYSICAL LIMITATIONS AFFECTING LEARNING: None LEARNING RESPONSE DIAGNOSIS: ADULT: EBUS PATIENT/FAMILY RESPONSE: Verbalizes understanding of: PRE-PROCEDURE INSTRUCTIONS-Correct action to take to follow pre-procedure instructions METHOD OF INSTRUCTION: Verbal instruction FOLLOW-UP PLAN: Patient instructed to call with any further issues INSTRUCTIONAL AIDS USED: NA SUPPLEMENTAL MATERIAL PROVIDED TO PATIENT: None REFERRAL (RECOMMENDATION): None Electronically Signed By: Vandana [place] [facility] SURGICAL PATHOLOGYon 024 ADDENDUM 1: [facility] Comment on above: Order Comment: Speci men Type: TISSUE SPECIMENOrdering Facility: [facility] Address: [address] [place] [address] Result Comment: GMS and Shira stains performed for the evaluation of fungal organisms and acid fast bacilli are negative. WV07/07/2023 Addendum electronically signed by Danis Prado V, MD on 07/07/2023 at 3:07 PM Performed By: #### S ####[facility] LABIA [id number] [address] CASE REPORT [facility] Comment on above: Order Comment: Speci men Type: TISSUE SPECIMENOrdering Facility: [facility] Address: [address] [place] [address] Result Comment: Surg [facility] Pathology Report Case: [id number] Authorizing Provider: Arcadio Hodgson MD Collected: 06/20/2023 12:49 PM Ordering Location: [facility] Received: 06/20/2023 01:27 PM Endoscopy - ENDO Pathologist: Danis Prado V, MD Specimen: Bronchus, Biopsy, RLL nodule Performed By: #### S ####[facility] LABIA [id number] [address] [place] CLINICAL HISTORY [facility] Comment on above: Order Comment: Speci men Type: TISSUE SPECIMENOrdering Facility: [facility] Address: [address] [place] [address] Result Comment: Pre- op diagnosis: Lung mass [R91.8] Performed By: #### S ####[facility] LABIA [id number] [address] [place] DIAGNOSIS COMMENT Deeper levels were examined. GMS and AFB stains are pending; an addendum report will follow. [facility] Comment on above: Order Comment: Speci men Type: TISSUE SPECIMENOrdering Facility: [facility] Address: [address] [place] [address] Performed By: #### S ####[facility] LABCLIA [id number] [address] [place] FINAL DIAGNOSIS Normal [facility] Comment on above: Order Comment: Speci men Type: TISSUE SPECIMENOrdering Facility: [facility] Address: [address] [place] [address] Result Comment: Righ t lung, lower lobe nodule, biopsy: - Necroinflammatory debris with scant minute fragments of lung tissue with atypical cells, not diagnostic of malignancy. [facility]/ 06/21/2023 Performed By: #### S ####[facility] LABCLIA [id number] [address] [place] FINAL PERFORMING LAB [facility] Comment on above: Order Comment: Speci men Type: TISSUE SPECIMENOrdering Facility: [facility] Address: [address] [place] [address] Result Comment: Diag nostic interpretation performed at [facility], [address] [place] [address] CLIA# [id number] Lamination Inspector: Ike Reaves M.D. Performed By: #### S ####[facility] LABIA [id number] [address] [place] GROSS DESCRIPTION Normal [facility] Comment on above: Order Comment: Speci men Type: TISSUE SPECIMENOrdering Facility: [facility] Address: [address] [place] [address] Result Comment: Daniela underwood, Biopsy Received in formalin are multiple red-brown, soft feathery segments of tissue aggregating to 2.2 x 1.1 x 0.3 cm. Totally submitted in one cassette. BC June 20, 2023 5:26 PM Gross examination performed at [facility], [address] [place] [address] Performed By: #### S ####[facility] LABCLIA [id number] [address] [place] CNPNon 06-16-2023 CNPN Telephone ([facility]) -- STEVIE SANCHEZ ([id number]) 1950 M Date Time Provider Department 06/16/23 ARCADIO HODGSON [facility]O During your visit today, we recorded the following information about you: Aristides Goel RN 06/16/2023 9:59 AM Signed Left message for patient to call back to review Bronchoscopy pre-op instructions. Aristides Gibson Ma, RN 06/16/2023 11:14 AM Signed Attempted to call patient again and no answer. Left message for patient to call back to review Bronchoscopy pre-op instructions. Aristides Gibson Ma, RN 06/16/2023 11:33 AM Signed Spoke with patient and reviewed pre-op instructions for upcoming bronchoscopy on 06/20/23 at 1200. Advised to arrive at [id number] to [facility] admissions/registration. Aware of dietary restrictions, and to stop over the counter herbal/vitamins supplements. 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 Routing to provider as FYI. Aristides Munoz RN Allergies As of Date: 06/16/2023 (No Known Allergies) Date Reviewed: 06/08/2023 Reviewed by: Maria Isabel Gilliland MA - Fully Assessed Prescriptions as of 06/16/2023 - amLODIPine (NORVASC) 5 mg tablet Take 1 tablet by mouth once daily. - atorvastatin (LIPITOR) 20 mg tablet Take 1 tablet by mouth once daily. - gabapentin (NEURONTIN) 300 mg capsule TAKE 2 CAPSULES BY MOUTH 3 TIMES A DAY - iv contrast (will be provided with radiology test) CTA CHST/ABD/PEL LE.No IV access, insert saline lock prior to the sedation, infusion, injection for imaging exam. Discontinue saline lock post exam. If Pt. has a central line or IVAD, may access for administration according to line specific nursing protocol. Once exam is complete flush line and de-access according to line specific nursing protocol in the CT contrast administration guidelines link. - iv contrast (will be provided with radiology test) CTA ABD/PEL LE - No IV access, insert saline lock prior to the sedation, infusion, injection for imaging exam. Discontinue saline lock post exam. If Pt. has a central line or IVAD, may access for administration according to line specific nursing protocol. Once exam is complete flush line and de-access according to line specific nursing protocol in the CT contrast administration guidelines link. - lisinopril-hydroCHLOROthia zide (ZESTORETIC) 20-12.5 mg per tablet Take 1 tablet by mouth once daily. - iv contrast (will be provided with radiology test) CT ABD/PEL -Inject, intravenously, once for 1 dose.No IV [...] the CT contrast administration guidelines link. - iv contrast (will be provided with radiology test) CT ABD/PEL -Inject, intravenously, once for 1 dose.No IV [...] in the CT contrast administration guidelines link. 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 Calculated P [place] [address] [facility] Calculated R [place] 58 degrees [facility] Calculated T [place] [address] [facility] P-R Interval [address] [facility] QRS Duration [address] [facility] QT Interval [address] [facility] QTC Calculation (Bazett) [address] [facility] Ventricular Rate 89 BPM [facility] No Panel Informationon 05-16 Radiology Result ACTIONABLE Abnormal [facility] Vital Signs Date Time Vital Sign Value Performing Clinician Luis Alberto morrison 10-24-2024 14:20-0400 Heart rate 170 /min Praful Hernandez Work Phone: [facility] 10-24-2024 14:15-0400 Body height 172.2 cm Praful Hernandez Work Phone: [facility] 10-24-2024 14:15-0400 Body mass index (BMI) [Ratio] 24.13 kg/m2 Praful Su MD Work Phone: [facility] 10-24-2024 14:15-0400 Body temperature 98.01 [degF] Praful Hernandez Work Phone: [facility] 10-24-2024 14:15-0400 Body weight 71.55 kg Praful Hernandez Work Phone: [facility] 10-24-2024 14:15-0400 Diastolic blood pressure 78 mm[Hg] Praful Su MD Work Phone: [facility] 10-24-2024 14:15-0400 SaO2% (BldA) [Mass fraction] 97 % Praful Su MD Work Phone: [facility] 10-24-2024 14:15-0400 Systolic blood pressure 110 mm[Hg] Praful Su MD Work Phone: [facility] 09-11-2024 11:28-0400 Body mass index (BMI) [Ratio] 25.05 kg/m2 Kevin Patterson MD Work Phone: [facility] 09-11-2024 11:28-0400 Body temperature 98.29 [degF] Kevin Patterson MD Work Phone: [facility] 09-11-2024 11:28-0400 Body weight 79.2 kg Kevin Patterson MD Work Phone: [facility] 09-11-2024 11:28-0400 Diastolic blood pressure 76 mm[Hg] Kevin Patterson MD Work Phone: [facility] 09-11-2024 11:28-0400 Heart rate 79 /min Kevin Patterson MD Work Phone: [facility] 09-11-2024 11:28-0400 Respiratory rate 18 /min Kevin Patterson MD Work Phone: [facility] 09-11-2024 11:28-0400 SaO2% (BldA) [Mass fraction] 97 % Kevin Patterson MD Work Phone: [facility] 09-11-2024 11:28-0400 Systolic blood pressure 135 mm[Hg] Kevin Patterson MD Work Phone: [facility] 08-23-2024 11:17-0400 Body mass index (BMI) [Ratio] 24.74 kg/m2 Elias Goss MD Work Phone: [facility] 08-23-2024 11:17-0400 Body weight 78.2 kg Elias Goss MD Work Phone: [facility] 2024 10:06-0400 Body height 177.8 cm Romina Kahn APRN.SUPERVISOR STRIPPING Work Phone: [facility] 2024 10:06-0400 Body mass index (BMI) [Ratio] 24.42 kg/m2 Romina Kahn APRN.SUPERVISOR STRIPPING Work Phone: [facility] 2024 10:06-0400 Body temperature 98.01 [degF] Romina Kahn APRN.SUPERVISOR STRIPPING Work Phone: [facility] 2024 10:06-0400 Body weight 77.2 kg Romina Kahn APRN.SUPERVISOR STRIPPING Work Phone: [facility] 2024 10:06-0400 Diastolic blood pressure 77 mm[Hg] Romina Kahn APRN.SUPERVISOR STRIPPING Work Phone: [facility] 2024 10:06-0400 Heart rate 73 /min Romina Kahn APRN.SUPERVISOR STRIPPING Work Phone: [facility] 2024 10:06-0400 Respiratory rate 14 /min Romina Kahn APRN.SUPERVISOR STRIPPING Work Phone: [facility] 2024 10:06-0400 SaO2% (BldA) [Mass fraction] 96 % Romina Kahn APRN.SUPERVISOR STRIPPING Work Phone: [facility] 2024 10:06-0400 Systolic blood pressure 125 mm[Hg] Romina Kahn APRN.SUPERVISOR STRIPPING Work Phone: [facility] 07-01-2024 11:07-0400 Body height 177.8 cm Season Yuniel LEE.SUPERVISOR STRIPPING Work Phone: [facility] 07-01-2024 11:07-0400 Body mass index (BMI) [Ratio] 24.39 kg/m2 Season Yuniel LEE.SUPERVISOR [employer]IPPING Work Phone: [facility] 07-01-2024 11:07-0400 Body temperature 98.49 [degF] Season Yuniel LEE.SUPERVISOR STRIPPING Work Phone: [facility] 07-01-2024 11:07-0400 Body weight 77.11 kg Season Yuniel LEE.SUPERVISOR STRIPPING Work Phone: [facility] 07-01-2024 11:07-0400 Diastolic blood pressure 74 mm[Hg] Season Yuniel LEE.SUPERVISOR STRIPPING Work Phone: [facility] 07-01-2024 11:07-0400 Heart rate 76 /min Season Yuniel INTERNATIONAL MARKETING EXECUTIVE.SUPERVISOR STRIPPING Work Phone: [facility] 07-01-2024 11:07-0400 Respiratory rate 14 /min Season Yuniel INTERNATIONAL MARKETING EXECUTIVE.SUPERVISOR STRIPPING Work Phone: [facility] 07-01-2024 11:07-0400 SaO2% (BldA) [Mass fraction] 96 % Season Rosenbatsheva INTERNATIONAL MARKETING EXECUTIVE.SUPERVISOR STRIPPING Work Phone: [facility] 07-01-2024 11:07-0400 Systolic blood pressure 115 mm[Hg] Season Rosenbatsheva INTERNATIONAL MARKETING EXECUTIVE.SUPERVISOR STRIPPING Work Phone: [facility] 06-18-2024 10:14-0400 Diastolic blood pressure 72 mm[Hg] Malia Egan DO Work Phone: [facility] 06-18-2024 10:14-0400 Heart rate 77 /min Malia Egan DO Work Phone: [facility] 06-18-2024 10:14-0400 SaO2% (BldA) [Mass fraction] 96 % Malia Egan DO Work Phone: [facility] 06-18-2024 10:14-0400 Systolic blood pressure 117 mm[Hg] Malia Egan DO Work Phone: [facility] 06-13-2024 12:55-0400 Body mass index (BMI) [Ratio] 25.37 kg/m2 Thad Garrett MD Work Phone: [facility] 06-13-2024 12:55-0400 Body weight 80.2 kg Thad Hernandez Work Phone: [facility] 06-13-2024 12:55-0400 Diastolic blood pressure 72 mm[Hg] Thad Garrett MD Work Phone: [facility] 06-13-2024 12:55-0400 Heart rate 80 /min Thad Hernandez Work Phone: [facility] 06-13-2024 12:55-0400 SaO2% (BldA) [Mass fraction] 96 % Thad Garrett MD Work Phone: [facility] 06-13-2024 12:55-0400 Systolic blood pressure 120 mm[Hg] Thad Garrett MD Work Phone: [facility] 06-07-2024 10:42-0400 Body height 177.8 cm Paula Lizama MD, Ph D Work Phone: [facility] 06-07-2024 10:42-0400 Body mass index (BMI) [Ratio] 24.19 kg/m2 Paula Lizama MD, PhD Work Phone: [facility] 06-07-2024 10:42-0400 Body temperature 98.6 [degF] Paula Lizama MD, Ph D Work Phone: [facility] 06-07-2024 10:42-0400 Body weight 76.47 kg Paula Lizama MD, Ph D Work Phone: [facility] 06-07-2024 10:42-0400 Diastolic blood pressure 80 mm[Hg] Paula Lizama MD, PhD Work Phone: [facility] 06-07-2024 10:42-0400 Heart rate 75 /min Paula Lizama MD, Ph D Work Phone: [facility] 06-07-2024 10:42-0400 Respiratory rate 14 /min Paula Lizama MD, Ph D Work Phone: [facility] 06-07-2024 10:42-0400 SaO2% (BldA) [Mass fraction] 97 % Paula Lizama MD, PhD Work Phone: [facility] 06-07-2024 10:42-0400 Systolic blood pressure 124 mm[Hg] Paula Lizama MD, PhD Work Phone: [facility] 05-17-2024 14:39-0400 Body height 177.8 cm Romina Kahn APRN.CNP Work Phone: [facility] 05-17-2024 14:39-0400 Body mass index (BMI) [Ratio] 24.35 kg/m2 Romina Kahn INTERNATIONAL MARKETING EXECUTIVE.SUPERVISOR STRIPPING Work Phone: [facility] 05-17-2024 14:39-0400 Body temperature 98.49 [degF] Romina Walls INTERNATIONAL MARKETING EXECUTIVE.SUPERVISOR STRIPPING Work Phone: [facility] 05-17-2024 14:39-0400 Body weight 76.97 kg Romina Kahn INTERNATIONAL MARKETING EXECUTIVE.SUPERVISOR STRIPPING Work Phone: [facility] 05-17-2024 14:39-0400 Diastolic blood pressure 73 mm[Hg] Romina Kahn INTERNATIONAL MARKETING EXECUTIVE.SUPERVISOR STRIPPING Work Phone: [facility] 05-17-2024 14:39-0400 Heart rate 82 /min Romina Kahn INTERNATIONAL MARKETING EXECUTIVE.SUPERVISOR STRIPPING Work Phone: [facility] 05-17-2024 14:39-0400 SaO2% (BldA) [Mass fraction] 96 % Romina Kahn INTERNATIONAL MARKETING EXECUTIVE.SUPERVISOR STRIPPING Work Phone: [facility] 05-17-2024 14:39-0400 Systolic blood pressure 110 mm[Hg] Romina Kahn INTERNATIONAL MARKETING EXECUTIVE.SUPERVISOR STRIPPING Work Phone: [facility] 04-25-2024 14:21-0500 Body mass index (BMI) [Ratio] 27.66 kg/m2 Praful Su MD Work Phone: [facility] 04-25-2024 14:21-0500 Body temperature 97.5 [degF] Praful Hernandez Work Phone: [facility] 04-25-2024 14:21-0500 Body weight 80.1 kg Praful Hernandez Work Phone: [facility] 04-25-2024 14:21-0500 Diastolic blood pressure 58 mm[Hg] Praful Su MD Work Phone: [facility] 04-25-2024 14:21-0500 Heart rate 76 /min Praful Hernandez Work Phone: [facility] 04-25-2024 14:21-0500 Systolic blood pressure 100 mm[Hg] Praful Su MD Work Phone: [facility] 02-01-2024 12:13-0500 Body mass index (BMI) [Ratio] 27.25 kg/m2 Elias Goss MD Work Phone: [facility] 02-01-2024 12:13-0500 Body weight 78.93 kg Elias Goss MD Work Phone: [facility] 01-11-2024 13:11-0500 Body mass index (BMI) [Ratio] 27.75 kg/m2 Elias Goss MD Work Phone: [facility] 01-11-2024 13:11-0500 Body weight 80.38 kg Elias Goss MD Work Phone: [facility] 01-08-2024 14:27-0500 Body height 170.2 cm Romina Kahn INTERNATIONAL MARKETING EXECUTIVE.SUPERVISOR STRIPPING Work Phone: [facility] 01-08-2024 14:27-0500 Body mass index (BMI) [Ratio] 26.85 kg/m2 Romina Crowdergas INTERNATIONAL MARKETING EXECUTIVE.SUPERVISOR STRIPPING Work Phone: [facility] 01-08-2024 14:27-0500 Body temperature 97.9 [degF] Romina Crowdergas INTERNATIONAL MARKETING EXECUTIVE.SUPERVISOR STRIPPING Work Phone: [facility] 01-08-2024 14:27-0500 Body weight 77.75 kg Romina Walls INTERNATIONAL MARKETING EXECUTIVE.SUPERVISOR STRIPPING Work Phone: [facility] 01-08-2024 14:27-0500 Diastolic blood pressure 67 mm[Hg] Romina Kahn INTERNATIONAL MARKETING EXECUTIVE.SUPERVISOR STRIPPING Work Phone: [facility] 01-08-2024 14:27-0500 Heart rate 74 /min Romina Kahn INTERNATIONAL MARKETING EXECUTIVE.SUPERVISOR STRIPPING Work Phone: [facility] 01-08-2024 14:27-0500 Respiratory rate 14 /min Romina Kahn APRN.SUPERVISOR STRIPPING Work Phone: [facility] 01-08-2024 14:27-0500 SaO2% (BldA) [Mass fraction] 95 % Romina Kahn APRN.SUPERVISOR STRIPPING Work Phone: [facility] 01-08-2024 14:27-0500 Systolic blood pressure 115 mm[Hg] Romina Kahn APRN.SUPERVISOR STRIPPING Work Phone: [facility] 01-04-2024 14:54-0500 Body height 170.2 cm Don Lara MD Work Phone: [facility] 01-04-2024 14:54-0500 Body mass index (BMI) [Ratio] 27.57 kg/m2 Don Lara MD Work Phone: [facility] 01-04-2024 14:54-0500 Body weight 79.83 kg Don Lara MD Work Phone: [facility] 12-19-2023 10:41-0400 Diastolic blood pressure 70 mm[Hg] Malia Egan DO Work Phone: [facility] 12-19-2023 10:41-0400 Heart rate 98 /min Malia Egan DO Work Phone: [facility] 12-19-2023 10:41-0400 SaO2% (BldA) [Mass fraction] 56 % Malia Egan DO Work Phone: [facility] 12-19-2023 10:41-0400 Systolic blood pressure 140 mm[Hg] Malia Egan DO Work Phone: [facility] 12-19-2023 08:51-0400 Body mass index (BMI) [Ratio] 29 kg/m2 Kevin Patterson MD Work Phone: [facility] 12-19-2023 08:51-0400 Body temperature 98.01 [degF] Kevin Patterson MD Work Phone: [facility] 12-19-2023 08:51-0400 Body weight 84 kg Kevin Patterson MD Work Phone: [facility] 12-19-2023 08:51-0400 Diastolic blood pressure 69 mm[Hg] Kevin Patterson MD Work Phone: [facility] 12-19-2023 08:51-0400 Heart rate 58 /min Kevin Patterson MD Work Phone: [facility] 12-19-2023 08:51-0400 Respiratory rate 12 /min Kevin Patterson MD Work Phone: [facility] 12-19-2023 08:51-0400 SaO2% (BldA) [Mass fraction] 98 % Kevin Patterson MD Work Phone: [facility] 12-19-2023 08:51-0400 Systolic blood pressure 142 mm[Hg] Kevin Patterson MD Work Phone: [facility] 11-29-2023 14:16-0400 Body mass index (BMI) [Ratio] 28.35 kg/m2 Kevin Patterson MD Work Phone: [facility] 11-29-2023 14:16-0400 Body temperature 98.8 [degF] Kevin Patterson MD Work Phone: [facility] 11-29-2023 14:16-0400 Body weight 82.1 kg Kevin Patterson MD Work Phone: [facility] 11-29-2023 14:16-0400 Diastolic blood pressure 71 mm[Hg] Kevin Patterson MD Work Phone: [facility] 11-29-2023 14:16-0400 Heart rate 64 /min Kevin Patterson MD Work Phone: [facility] 11-29-2023 14:16-0400 Respiratory rate 12 /min Kevin Patterson MD Work Phone: [facility] 11-29-2023 14:16-0400 SaO2% (BldA) [Mass fraction] 98 % Kevin Patterson MD Work Phone: [facility] 11-29-2023 14:16-0400 Systolic blood pressure 110 mm[Hg] Kevin Patterson MD Work Phone: [facility] 11-27-2023 11:05-0400 Body height 170.2 cm Romina Kahn APRN.SUPERVISOR STRIPPING Work Phone: [facility] 11-27-2023 11:05-0400 Body mass index (BMI) [Ratio] 27.64 kg/m2 Romina Kahn APRN.SUPERVISOR STRIPPING Work Phone: [facility] 11-27-2023 11:05-0400 Body temperature 98.29 [degF] Romina Kahn APRN.SUPERVISOR STRIPPING Work Phone: [facility] 11-27-2023 11:05-0400 Body weight 80.06 kg Romina Kahn APRN.SUPERVISOR STRIPPING Work Phone: [facility] 11-27-2023 11:05-0400 Diastolic blood pressure 61 mm[Hg] Romina Kahn APRN.SUPERVISOR STRIPPING Work Phone: [facility] 11-27-2023 11:05-0400 Heart rate 61 /min Romina Kahn APRN.SUPERVISOR STRIPPING Work Phone: [facility] 11-27-2023 11:05-0400 Respiratory rate 14 /min Romina Kahn APRN.SUPERVISOR STRIPPING Work Phone: [facility] 11-27-2023 11:05-0400 SaO2% (BldA) [Mass fraction] 95 % Romina Kahn APRN.SUPERVISOR STRIPPING Work Phone: [facility] 11-27-2023 11:05-0400 Systolic blood pressure 121 mm[Hg] Romina Kahn APRN.SUPERVISOR STRIPPING Work Phone: [facility] 11-09-2023 12:31-0400 Body height 170.2 cm Paula Lizama MD, Ph D Work Phone: [facility] 11-09-2023 12:31-0400 Body mass index (BMI) [Ratio] 27.72 kg/m2 Paula Lizama MD, PhD Work Phone: [facility] 11-09-2023 12:31-0400 Body temperature 98.1 [degF] Paula Lizama MD, Ph D Work Phone: [facility] 11-09-2023 12:31-0400 Body weight 80.29 kg Paula Lizama MD, Ph D Work Phone: [facility] 11-09-2023 12:31-0400 Diastolic blood pressure 77 mm[Hg] Paula Lizama MD, PhD Work Phone: [facility] 11-09-2023 12:31-0400 Heart rate 82 /min Paula Lizama MD, Ph D Work Phone: [facility] 11-09-2023 12:31-0400 Respiratory rate 14 /min Paula Lizama MD, Ph D Work Phone: [facility] 11-09-2023 12:31-0400 SaO2% (BldA) [Mass fraction] 96 % Paula Lizama MD, PhD Work Phone: [facility] 11-09-2023 12:31-0400 Systolic blood pressure 132 mm[Hg] Paula Lizama MD, PhD Work Phone: [facility] 10-26-2023 14:18-0400 Body height 173 cm Praful Hernandez Work Phone: [facility] 10-26-2023 14:18-0400 Body mass index (BMI) [Ratio] 27.4 kg/m2 Praful Su MD Work Phone: [facility] 10-26-2023 14:18-0400 Body temperature 97.9 [degF] Praufl Hernandez Work Phone: [facility] 10-26-2023 14:18-0400 Body weight 82 kg Praful Hernandez Work Phone: [facility] 10-26-2023 14:18-0400 Diastolic blood pressure 79 mm[Hg] Praful Su MD Work Phone: [facility] 10-26-2023 14:18-0400 Heart rate 89 /min Praful Hernandez Work Phone: [facility] 10-26-2023 14:18-0400 Systolic blood pressure 113 mm[Hg] Praful Su MD Work Phone: [facility] 10-19-2023 12:19-0400 Body height 170.2 cm Paula Lizama MD, Ph D Work Phone: [facility] 10-19-2023 12:19-0400 Body mass index (BMI) [Ratio] 27.8 kg/m2 Paula Lizama MD, PhD Work Phone: [facility] 10-19-2023 12:19-0400 Body temperature 97.81 [degF] Paula Lizama MD, Ph D Work Phone: [facility] 10-19-2023 12:19-0400 Body weight 80.51 kg Paula Lizama MD, Ph D Work Phone: [facility] 10-19-2023 12:19-0400 Diastolic blood pressure 78 mm[Hg] Paula Lizama MD, PhD Work Phone: [facility] 10-19-2023 12:19-0400 Heart rate 76 /min Paula Lizama MD, Ph D Work Phone: [facility] 10-19-2023 12:19-0400 Respiratory rate 14 /min Paula Lizama MD, Ph D Work Phone: [facility] 10-19-2023 12:19-0400 SaO2% (BldA) [Mass fraction] 96 % Paula Lizama MD, PhD Work Phone: [facility] 10-19-2023 12:19-0400 Systolic blood pressure 123 mm[Hg] Paula Lizama MD, PhD Work Phone: [facility] 10-17-2023 12:00-0400 Body height 171.8 cm [facility] Work Phone: [facility] 10-17-2023 12:00-0400 Body mass index (BMI) [Ratio] 27.44 kg/m2 Pulm Work Phone: [facility] 10-17-2023 12:00-0400 [facility] 10-03-2023 11:36-0400 Body height 173.8 cm Kevin Patterson MD Work Phone: [facility] Comment on above: Garrett Acosta MA 10-03-2023 11:36-0400 Body mass index (BMI) [Ratio] 27.69 kg/m2 Kevin Patterson MD Work Phone: [facility] 10-03-2023 11:36-0400 Body temperature 98.01 [degF] Kevin Patterson MD Work Phone: [facility] 10-03-2023 11:36-0400 Body weight 83.6 kg Kevin Patterson MD Work Phone: [facility] Comment on above: Garrett Acosta MA 10-03-2023 11:36-0400 Diastolic blood pressure 74 mm[Hg] Kevin Patterson MD Work Phone: [facility] 10-03-2023 11:36-0400 Heart rate 79 /min Kevin Patterson MD Work Phone: [facility] 10-03-2023 11:36-0400 Respiratory rate 14 /min Keivn Patterson MD Work Phone: [facility] [facility] 10-03-2023 11:36-0400 SaO2% (BldA) [Mass fraction] 96 % Kevin Patterson MD Work Phone: [facility] 10-03-2023 11:36-0400 Systolic blood pressure 114 mm[Hg] Kevin Patterson MD Work Phone: [facility] 09-14-2023 13:27-0400 Body height 171.3 cm Silvano Mccrary MD Work Phone: [facility] 09-14-2023 13:27-0400 Body mass index (BMI) [Ratio] 28.39 kg/m2 Silvano Mccrary MD Work Phone: [facility] 09-14-2023 13:27-0400 Body temperature 97.39 [degF] Silvano Mccrary MD Work Phone: [facility] 09-14-2023 13:27-0400 Body weight 83.3 kg Silvano Mccrary MD Work Phone: [facility] 09-14-2023 13:27-0400 Diastolic blood pressure 78 mm[Hg] Silvano Mccrary MD Work Phone: [facility] 09-14-2023 13:27-0400 Heart rate 77 /min Silvano Mccrary MD Work Phone: [facility] 09-14-2023 13:27-0400 Systolic blood pressure 122 mm[Hg] Silvano Mccrary MD Work Phone: [facility] 09-11-2023 13:35-0400 Body height 177.8 cm Pacc 2 Work Phone: [facility] 09-11-2023 13:35-0400 Body mass index (BMI) [Ratio] 26.03 kg/m2 Pacc 2 Work Phone: [facility] 09-11-2023 13:35-0400 Body temperature 98.71 [degF] Pacc 2 Work Phone: [facility] 09-11-2023 13:35-0400 Body weight 82.3 kg Pacc 2 Work Phone: [facility] 09-11-2023 13:35-0400 Diastolic blood pressure 74 mm[Hg] Pacc 2 Work Phone: [facility] 09-11-2023 13:35-0400 Heart rate 85 /min Pacc 2 Work Phone: [facility] 09-11-2023 13:35-0400 Respiratory rate 18 /min Pacc 2 Work Phone: [facility] 09-11-2023 13:35-0400 SaO2% (BldA) [Mass fraction] 96 % Pac 2 Work Phone: [facility] 09-11-2023 13:35-0400 Systolic blood pressure 119 mm[Hg] Pacc 2 Work Phone: [facility] 09-01-2023 14:25-0400 Body height 177.8 cm Thad Hernandez Work Phone: [facility] 09-01-2023 14:25-0400 Body mass index (BMI) [Ratio] 26.57 kg/m2 Thad Garrett MD Work Phone: [facility] 09-01-2023 14:25-0400 Body weight 84 kg Thad Hernandez Work Phone: [facility] 09-01-2023 14:25-0400 Diastolic blood pressure 79 mm[Hg] Thad Garrett MD Work Phone: [facility] 09-01-2023 14:25-0400 Heart rate 79 /min Thad Hernandez Work Phone: [facility] 09-01-2023 14:25-0400 SaO2% (BldA) [Mass fraction] 96 % Thad Garrett MD Work Phone: [facility] 09-01-2023 14:25-0400 Systolic blood pressure 114 mm[Hg] Thad Garrett MD Work Phone: [facility] 07-28-2023 15:13-0400 Body mass index (BMI) [Ratio] 28.4 kg/m2 Thad Garrett MD Work Phone: [facility] 07-28-2023 15:13-0400 Body weight 85 kg Thad Hernandez Work Phone: [facility] 07-28-2023 15:13-0400 Diastolic blood pressure 80 mm[Hg] Thad Garrett MD Work Phone: [facility] 07-28-2023 15:13-0400 Heart rate 82 /min Thad Hernandez Work Phone: [facility] 07-28-2023 15:13-0400 SaO2% (BldA) [Mass fraction] 96 % Thad Garrett MD Work Phone: [facility] 07-28-2023 15:13-0400 Systolic blood pressure 126 mm[Hg] Thad Garrett MD Work Phone: [facility] 06-08-2023 13:37-0400 Body weight 85.9 kg Thad Hernandez Work Phone: [facility] 06-08-2023 13:37-0400 Diastolic blood pressure 78 mm[Hg] Thad Garrett MD Work Phone: [facility] 06-08-2023 13:37-0400 Heart rate 78 /min Thad Hernandez Work Phone: [facility] 06-08-2023 13:37-0400 SaO2% (BldA) [Mass fraction] 96 % Thad Garrett MD Work Phone: [facility] 06-08-2023 13:37-0400 Systolic blood pressure 147 mm[Hg] Thad Garrett MD Work Phone: [facility] 06-06-2023 08:57-0400 Diastolic blood pressure 76 mm[Hg] Tea Jackson MD Work Phone: [facility] 06-06-2023 08:57-0400 Heart rate 70 /min Tea Jackson MD Work Phone: [facility] 06-06-2023 08:57-0400 SaO2% (BldA) [Mass fraction] 96 % Tea Jackson MD Work Phone: [facility] 06-06-2023 08:57-0400 Systolic blood pressure 123 mm[Hg] Tea Jackson MD Work Phone: [facility] 04-27-2023 15:22-0500 Body height 173 cm Praful Hernandez Work Phone: [facility] 04-27-2023 15:22-0500 Body temperature 97.81 [degF] Praful Hernandez Work Phone: [facility] 04-27-2023 15:22-0500 Body weight 88.72 kg Praful Hernandez Work Phone: [facility] 04-27-2023 15:22-0500 Diastolic blood pressure 74 mm[Hg] Praful Su MD Work Phone: [facility] 04-27-2023 15:22-0500 Systolic blood pressure 107 mm[Hg] Praful Su MD Work Phone: [facility] 04-25-2023 10:55-0500 Diastolic blood pressure 68 mm[Hg] Phuong Ramos INTERNATIONAL MARKETING EXECUTIVE.SUPERVISOR STRIPPING Work Phone: [facility] 04-25-2023 10:55-0500 Heart rate 71 /min Phuong Ramos INTERNATIONAL MARKETING EXECUTIVE.CN P Work Phone: [facility] 04-25-2023 10:55-0500 SaO2% (BldA) [Mass fraction] 95 % Phuong Ramos INTERNATIONAL MARKETING EXECUTIVE.SUPERVISOR STRIPPING Work Phone: [facility] 04-25-2023 10:55-0500 Systolic blood pressure 114 mm[Hg] Phuong Ramos INTERNATIONAL MARKETING EXECUTIVE.SUPERVISOR STRIPPING Work Phone: [facility] 10-13-2022 09:57-0400 Body height 174 cm Navid Roberts MD Work Phone: [facility] 10-13-2022 09:57-0400 Body weight 91.63 kg Navid Roberts MD Work Phone: [facility] 10-13-2022 09:57-0400 Diastolic blood pressure 72 mm[Hg] Navid Roberts MD Work Phone: [facility] 10-13-2022 09:57-0400 Heart rate 85 /min Navid Roberts MD Work Phone: [facility] 10-13-2022 09:57-0400 SaO2% (BldA) [Mass fraction] 98 % Navid Roberts MD Work Phone: [facility] 10-13-2022 09:57-0400 Systolic blood pressure 135 mm[Hg] Navid Roberts MD Work Phone: [facility] 03-30-2022 12:23-0500 Diastolic blood pressure 68 mm[Hg] Navid Roberts MD Work Phone: [facility] 03-30-2022 12:23-0500 Heart rate 93 /min Navid Roberts MD Work Phone: [facility] 03-30-2022 12:23-0500 SaO2% (BldA) [Mass fraction] 96 % Navid Roberts MD Work Phone: [facility] 03-30-2022 12:23-0500 Systolic blood pressure 120 mm[Hg] Navid Roberts MD Work Phone: [facility] 03-07-2022 13:32-0500 Body height 174.5 cm Praful Hernandez Work Phone: [facility] 03-07-2022 13:32-0500 Body temperature 97.9 [degF] Praful Hernandez Work Phone: [facility] 03-07-2022 13:32-0500 Body weight 98.16 kg Praful Hernandez Work Phone: [facility] 03-07-2022 13:32-0500 Diastolic blood pressure 62 mm[Hg] Praful Su MD Work Phone: [facility] 03-07-2022 13:32-0500 Heart rate 73 /min Praful Hernandez Work Phone: [facility] 03-07-2022 13:32-0500 SaO2% (BldA) [Mass fraction] 97 % Praful Su MD Work Phone: [facility] 03-07-2022 13:32-0500 Systolic blood pressure 110 mm[Hg] Praful Su MD Work Phone: [facility] 08-11-2021 07:57-0400 Body temperature 97.39 [degF] Praful Hernandez Work Phone: [facility] 08-11-2021 07:57-0400 Body weight 92.99 kg Praful Hernandez Work Phone: [facility] 08-11-2021 07:57-0400 Diastolic blood pressure 64 mm[Hg] Praful Su MD Work Phone: [facility] 08-11-2021 07:57-0400 Systolic blood pressure 132 mm[Hg] Praful Su MD Work Phone: [facility] Encounters Encounter Date Encounter Type Care Provider Facility Start: 11-25-2024 ambulatory Maik Juaresi lity:[facility] Start: 11-22-2024 End: 11-22-2024 ambulatory PRAFUL SU Facility:[facility] Start: 11-21-2024 ambulatory PRAFUL Méndez [facility] Start: 11-19-2024 End: 11-19-2024 ambulatory PRAFUL SU Facility:[facility] Start: 11-19-2024 End: 11-19-2024 ambulatory ELIAS HILLS Facility:[facility] Start: 11-18-2024 ambulatory Maik VALENCIA Faci lity:[facility] Start: 11-11-2024 ambulatory Maik VALENCIA Faci lity:[facility] Start: 11-04-2024 End: 11-04-2024 ambulatory Kurt Pereira MD Work Phone: [place] Provider Adult Comment on above: [facility] Start Start: 10-31-2024 End: 10-31-2024 Orders Only Radha García APRN.SUPERVISOR STRIPPING Work Phone: Hematology/Oncology Comment on above: Squamous cell carcin ebony of lung, unspecified laterality (HCC) (Primary Dx) Start: 10-29-2024 End: 10-29-2024 ambulatory PRAFUL SU Facility:[facility] Start: 10-25-2024 End: 10-25-2024 ambulatory Praful Su MD Work Phone: [facility] Start: 10-25-2024 End: 10-25-2024 Patient encounter procedure [facility]fl Su [facility] Comment on above: Population Health Na vigation Outreach ([employer] [facility] ) Start: 10-24-2024 End: 11-05-2024 Evaluation and management of inpatient PRAFUL SU Facility:[facility] Start: 10-24-2024 End: 10-24-2024 Patient encounter procedure Praful Su MD Work Phone: [facility] Comment on above: Essential hypertensi on (Primary Dx); Mixed hyperlipidemia; Prostate cancer (HCC); Malignant neoplasm of lower lobe of right lung (HCC); Tachycardia Start: 10-24-2024 End: 10-24-2024 ambulatory PRAFUL SU Facility:[facility] Start: 10-22-2024 End: 10-22-2024 Telephone encounter Don Lara MD Work Phone: Urology Comment on above: Appointment Start: 09-20-2024 End: 09-20-2024 ambulatory Darcie Whitten RN Work Phone: Machine Setup Operator Management Comment on above: Bi-Weekly Outreach ( Recurring) for Chronic Disease Management Start: 09-13-2024 End: 09-13-2024 ambulatory Darcie Whitten RN Work Phone: Machine Setup Operator Management Comment on above: Bi-Weekly Outreach ( Recurring) for Chronic Disease Management Start: 09-11-2024 End: 09-11-2024 Patient encounter procedure Kevin Patterson MD Work Phone: Hematology/Oncology Start: 09-11-2024 End: 09-11-2024 ambulatory Kevin Patterson MD Work Phone: Hematology/Oncology Comment on above: Malignant neoplasm o f unspecified part of unspecified bronchus or lung (HCC) (Primary Dx); Squamous cell carcinoma of lung, unspecified laterality (HCC) Start: 09-10-2024 End: 09-10-2024 ambulatory Praful Su MD Work Phone: [facility] Comment on above: Allied Health Visit (Medication Adherence Outreach ) Start: 09-06-2024 End: 09-06-2024 ambulatory Darcie Whitten RN Work Phone: Machine Setup Operator Management Comment on above: Initial enrollment o [place] for Chronic Disease Management Start: 09-03-2024 End: 09-03-2024 Refill Praful Su MD Work Phone: [facility] Comment on above: Refill Request Start: 08-23-2024 End: 08-23-2024 Office outpatient visit 25 minutes Elias Goss MD Work Phone: Radiation Oncology Comment on above: Malignant neoplasm o f upper lobe of right lung (HCC) (Primary Dx) Start: 08-23-2024 End: 08-23-2024 ambulatory ELIAS GOSS Facility:[facility] Start: 08-20-2024 End: 08-20-2024 Patient encounter procedure Romina Kahn APRN.SUPERVISOR STRIPPING Work Phone: [facility] Comment on above: Neoplasm of lung (Pr imary Dx); Bronchopleural fistula (HCC); Malignant neoplasm of lower lobe of right lung (HCC) Start: 08-20-2024 End: 08-20-2024 Telemedicine consultation with patient Romina Kahn APRN.SUPERVISOR STRIPPING Work Phone: [facility] Start: 08-20-2024 End: 08-20-2024 ambulatory PRAFUL SU Facility:[facility] Start: 08-19-2024 End: 08-19-2024 ambulatory UNKNOWN PROVIDER Facility:[facility] Start: 08-19-2024 End: 08-19-2024 Subsequent hospital visit by physician Xr [facility] Radiology Comment on above: 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] Start: 07-12-2024 End: 07-12-2024 Patient Outreach Darcie Whitten RN Work Phone: Machine Setup Operator Management Comment on above: Weekly phone contact (Recurring) for Transitional Care Management Start: 2024 End: 2024 Patient encounter procedure oRmina Kahn APRN.SUPERVISOR STRIPPING Work Phone: [facility] Comment on above: Bronchopleural fistu la (HCC) (Primary Dx); Cancer of overlapping sites of right lung (HCC) Start: 2024 End: 2024 ambulatory PRAFUL F GEORGES Facility:[facility] Start: 2024 End: 2024 Subsequent hospital visit by physician Xr Chest Main J1 Work Phone: Radiology Comment on above: Other pneumothorax [ J93.83] Start: 07-05-2024 End: 07-05-2024 Patient Outreach Darcie Whitten RN Work Phone: Machine Setup Operator Management Comment on above: Weekly phone contact (Recurring) for Transitional Care Management Start: 07-01-2024 [facility] Start: 07-01-2024 End: 07-01-2024 Subsequent hospital visit by physician Xr Chest Main J1 Work Phone: Radiology Comment on above: 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] Start: 07-01-2024 End: 07-01-2024 Patient encounter procedure Gabi Brice INTERNATIONAL MARKETING EXECUTIVE.SUPERVISOR STRIPPING Work Phone: [facility] Comment on above: Bronchopleural fistu la (HCC) (Primary Dx); Constipation due to opioid therapy Start: 07-01-2024 End: 07-01-2024 ambulatory PRAFUL F GEORGES Facility:[facility] Start: 07-01-2024 End: 07-01-2024 Subsequent hospital visit by physician Xr Chest Main J1 Work Phone: Radiology Comment on above: 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] Start: 06-24-2024 End: 06-24-2024 Patient Outreach Darcie Whitten RN Work Phone: Machine Setup Operator Management Comment on above: Initial phone contac t for Transitional Care Management Start: 06-19-2024 End: 06-23-2024 Evaluation and management of inpatient PRAFUL F GEORGES Facility:[facility] Start: 06-18-2024 End: 06-18-2024 ambulatory PRAFUL GEORGES Facility:[facility] Start: 06-18-2024 End: 06-18-2024 Patient encounter procedure Malia Egan DO Work Phone: Vascular Surgery Comment on above: Infrarenal abdominal aortic aneurysm (AAA) without rupture (Primary Dx) Start: 06-13-2024 End: 06-13-2024 Patient encounter procedure Thad Garrett MD Work Phone: Pulmonary Medicine Comment on above: Chronic obstructive pulmonary disease, unspecified COPD type (HCC) (Primary Dx); Malignant neoplasm of lower lobe of right lung (HCC); Paroxysmal atrial fibrillation (HCC); Centrilobular emphysema (HCC); History of prostate cancer; Former smoker Start: 06-13-2024 End: 06-13-2024 ambulatory THAD GARRETT Facility:[facility] Start: 06-07-2024 End: 06-07-2024 Admission to same day surgery center Anesthesia Clearance Work Phone: [facility] Work Phone: Start: 06-07-2024 End: 06-07-2024 Patient encounter procedure Anesthesia Clearance Work Phone: Cardiothoracic Comment on above: Encounter for preope rative anesthesiology assessment for thoracic surgery (Primary Dx) Emphysematous bleb ( HCC) (Primary Dx); Chronic obstructive pulmonary disease, unspecified COPD type (HCC); Paroxysmal atrial fibrillation (HCC); Personal history of malignant neoplasm of bronchus and lung Start: 06-07-2024 End: 06-07-2024 ambulatory PRAFUL Fair GEORGES Facility:[facility] Start: 06-07-2024 Encounter for preprocedural laboratory examination PRAFUL SU [facility] Start: 06-07-2024 End: 06-07-2024 ambulatory PRAFUL SU Facility:[facility] Start: 06-07-2024 End: 06-07-2024 Patient encounter status Xr J1 Work Phone: [facility] Start: 06-07-2024 End: 06-07-2024 Subsequent hospital visit by physician Xr Chest Main J1 Work Phone: Radiology Comment on above: Hydropneumothorax [J 94.8] Start: 05-25-2024 End: 05-25-2024 Admission to same day surgery center Paula Lizama MD, PhD Work Phone: [facility]acic Clinic Comment on above: Schedule Surgery (Ri ght chest exploration poss robotic, poss thoracotomy, poss lung resection c=1.5) Start: 05-25-2024 End: 05-25-2024 ambulatory Paula Lizama MD, PhD Work Phone: [facility] Start: 05-25-2024 End: 05-25-2024 Patient encounter status Paula Lizama MD, PhD Work Phone: [facility] Start: 05-23-2024 End: 05-23-2024 Refill Praful Su MD Work Phone: [facility] Comment on above: Refill Request Start: 05-22-2024 End: 05-22-2024 Telephone encounter Kevin Patterson MD Work Phone: Hematology/Oncology Comment on above: Appointment Start: 05-20-2024 End: 05-20-2024 ambulatory Elias Goss MD Work Phone: Radiation Oncology Comment on above: Cancer of bronchus o f right upper lobe (HCC) (Primary Dx) Start: 05-20-2024 End: 05-20-2024 Telephone encounter Elias Goss MD Work Phone: Radiation Oncology Start: 05-17-2024 End: 05-17-2024 ambulatory PRAFUL SU Facility:[facility] Start: 05-17-2024 End: 05-17-2024 Patient encounter procedure Romina Crowdermeaghangerald VAIBHAV Work Phone: [facility]acic Clinic Comment on above: Malignant neoplasm o f lower lobe of right lung (HCC) (Primary Dx); Pneumothorax on right Start: 05-17-2024 End: 05-17-2024 [facility] Start: 05-17-2024 End: 05-17-2024 Subsequent hospital visit by physician Lilly Chest Main J1 Work Phone: Radiology Comment on above: Pneumothorax, unspec ified type [J93.9] Start: 05-13-2024 End: 05-13-2024 Patient Outreach Darcie Whitten RN Work Phone: Machine Setup Operator Management Comment on above: Initial phone contac t for Transitional Care Management Start: 05-10-2024 End: 05-12-2024 Evaluation and management of inpatient PRAFUL SU Facility:[facility] Start: 05-09-2024 End: 05-09-2024 ambulatory PRAFUL Fair [facility] Facility:[facility] Start: 05-09-2024 End: 05-09-2024 Patient encounter procedure Romina Crowdermeaghangerald VAIBHAV Work Phone: [facility] Comment on above: Malignant neoplasm o f lower lobe of right lung (HCC) (Primary Dx); Pneumothorax, unspecified type Start: 05-09-2024 End: 05-09-2024 Telemedicine consultation with patient Romina Kahn VAIBHAV Work Phone: [facility] Start: 05-08-2024 End: 05-08-2024 Subsequent hospital visit by physician [facility] Radiology Comment on above: Malignant neoplasm o f unspecified part of unspecified bronchus or lung (HCC) [C34.90] Start: 05-08-2024 End: 05-08-2024 ambulatory KEVIN PATTERSON Pulmonary Medicine Comment on above: Spirometry Start: 05-08-2024 End: 05-08-2024 Patient encounter procedure Pulm Fct [facility] Work Phone: Pulmonary Medicine Start: 05-07-2024 End: 05-07-2024 Follow-up encounter Praful Su MD Work Phone: [facility] Start: 05-07-2024 End: 05-07-2024 ambulatory PRAFUL SU Facility:[facility] Start: 04-25-2024 End: 04-25-2024 ambulatory PRAFUL SU Facility:[facility] Start: 04-25-2024 End: 04-25-2024 Patient encounter procedure Praful Su MD Work Phone: [facility] Comment on above: Essential hypertensi on (Primary Dx); Spinal stenosis of lumbar region with neurogenic claudication; Paresthesias; Prostate cancer (HCC); Mixed hyperlipidemia; Screening for colon cancer Start: 03-05-2024 End: 03-05-2024 Telephone encounter Elias Goss MD Work Phone: Radiation Oncology Comment on above: Appointment Opened In Error Start: 02-29-2024 End: 02-29-2024 Patient encounter procedure Cristopher Carrera [facility] [place] Comment on above: Population Health Na vigation Outreach ([facility]) Start: 02-29-2024 End: 02-29-2024 Telephone encounter Elias Goss MD Work Phone: Radiation Oncology Comment on above: Appointment Start: 02-29-2024 End: 02-29-2024 [facility] [place] Comment on above: Malignant neoplasm o f upper lobe of right lung (HCC) (Primary Dx) Start: 02-29-2024 End: 02-29-2024 Telemedicine consultation with patient Elias Goss MD Work Phone: Radiation Oncology Start: 02-05-2024 End: 02-09-2024 Patient encounter procedure Elias Goss MD Work Phone: Radiation Oncology Start: 02-05-2024 End: 02-09-2024 Radiation Oncology Note Elias Goss MD Work Phone: Radiation Oncology Comment on above: Completion Note Start: 02-02-2024 End: 02-02-2024 ambulatory Tayler Hernandez windows security engineerMachine Setup Operator Management Start: 02-02-2024 End: 02-02-2024 Follow-up encounter Tayler Hernandez windows security engineerMachine Setup Operator Management Comment on above: ACM SOLE RN ( Chart Review Sole Priority/Emergency Department Utilization); Population Health Navigation Outreach ([facility] - ED follow up ) Start: 02-01-2024 End: 02-01-2024 Unlisted evaluation and management service Elias Goss MD Work Phone: Radiation Oncology Comment on above: Postprocedural pneum othorax (Primary Dx) Start: 02-01-2024 End: 02-01-2024 Social Work Melita FLYNN Work Phone: Radiation Oncology Comment on above: 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] Start: 01-31-2024 End: 01-31-2024 Emergency department patient visit MERARI Lainez [facility] Facility:[facility] Start: 01-19-2024 End: 01-19-2024 Telephone encounter Elias Goss MD Work Phone: Radiation Oncology Comment on above: Appointment Start: 01-16-2024 End: 01-30-2024 Patient encounter procedure Elias Goss MD Work Phone: Radiation Oncology Start: 01-16-2024 End: 01-30-2024 Radiation Oncology Note Elias Goss MD Work Phone: Radiation Oncology Comment on above: Simulation Note Treatment Planning Start: 01-16-2024 End: 01-16-2024 ambulatory ELIAS GOSS Facility:[facility] Start: 01-11-2024 End: 01-11-2024 ambulatory ELIAS GOSS Facility:[facility] Start: 01-11-2024 End: 01-11-2024 Patient encounter procedure Elias Goss MD Work Phone: Radiation Oncology Comment on above: Malignant neoplasm o f upper lobe of right lung (HCC) (Primary Dx); Malignant neoplasm of unspecified part of unspecified bronchus or lung (HCC) Start: 01-08-2024 End: 01-08-2024 Patient encounter procedure Romina Kahn SUPERVISOR STRIPPING Work Phone: Thoracic Clinic Comment on above: Malignant neoplasm o f lower lobe of right lung (HCC) (Primary Dx); Lung nodule; Chronic obstructive pulmonary disease, unspecified COPD type (HCC) Start: 01-08-2024 End: 01-08-2024 ambulatory PRAFUL F DAVIDJONATANSTUART Facility:[facility] Start: 01-08-2024 End: 01-08-2024 Subsequent hospital visit by physician Xr Chest Main J1 Work Phone: Radiology Comment on above: Malignant neoplasm o f lower lobe of right lung (HCC) [C34.31] Start: 01-05-2024 End: 01-05-2024 Telephone encounter Don Lara MD Work Phone: [facility] Comment on above: Results Start: 01-04-2024 End: 01-04-2024 ambulatory DON LARA Facility:[facility] Start: 01-04-2024 End: 01-04-2024 Patient encounter procedure Don Lara MD Work Phone: Urology Comment on above: Prostate cancer (HCC ) (Primary Dx) Start: 12-28-2023 End: 12-29-2023 Telephone encounter Elias Goss MD Work Phone: Radiation Oncology Comment on above: Appointment; Orders; Consult Start: 12-19-2023 End: 12-20-2023 Telephone encounter Elias Goss MD Work Phone: Radiation Oncology Comment on above: Appointment Appointment (New Pat ient Consult with ) Start: 12-19-2023 End: 12-19-2023 ambulatory Kevin Patterson MD Work Phone: Hematology/Oncology Comment on above: Malignant neoplasm o f unspecified part of unspecified bronchus or lung (HCC) (Primary Dx) Start: 12-19-2023 End: 12-19-2023 Patient encounter procedure Kevin Patterson MD Work Phone: Hematology/Oncology Comment on above: Infrarenal abdominal aortic aneurysm (AAA) without rupture (HCC) (Primary Dx) Start: 12-09-2023 ambulatory PRAFUL Fair MIHIRRICCARDOPERFECTO Dev cility:[facility] Start: 12-09-2023 End: 12-09-2023 Subsequent hospital visit by physician Ct [facility] Radiology Comment on above: Squamous cell carcin ebony of lung, unspecified laterality (HCC) [C34.90] Start: 11-29-2023 End: 11-29-2023 ambulatory Kevin Patterson MD Work Phone: Hematology/Oncology Comment on above: Squamous cell carcin ebony of lung, unspecified laterality (HCC) (Primary Dx) Start: 11-29-2023 End: 11-29-2023 Patient encounter procedure Kevin Patterson MD Work Phone: Hematology/Oncology Start: 11-27-2023 End: 11-27-2023 Patient encounter procedure Romina Kahn APRN.SUPERVISOR STRIPPING Work Phone: Thoracic Clinic Comment on above: Malignant neoplasm o f lower lobe of right lung (HCC) (Primary Dx); Lung nodule Start: 11-27-2023 End: 11-27-2023 Subsequent hospital visit by physician Xr Chest Main J1 Work Phone: Radiology Comment on above: Malignant neoplasm o f lower lobe of right lung (HCC) [C34.31] Start: 11-23-2023 End: 11-23-2023 Telephone encounter Latha Ferris RN NOC Comment on above: Follow Up Phone Call (RC follow up call first attempt./) Start: 11-20-2023 End: 11-20-2023 Patient Outreach Cecile Duggan RN Work Phone: Machine Setup Operator Management Comment on above: Transition Of Care ( Hospital discharge main campus 11/19/2023 - Initial outreach/) Initial phone contact for Transitional Care Management Start: 11-15-2023 End: 11-15-2023 Chart abstracting Graciela Thapa Research Coordinator Hematology/Oncology Comment on above: Research (IRB [id number]) Start: 11-10-2023 End: 11-10-2023 Subsequent hospital visit by physician Mri Main Ca (1.5t) Work Phone: Radiology Comment on above: Malignant neoplasm o f lower lobe of right lung (HCC) [C34.31] Start: 11-09-2023 End: 11-09-2023 Admission to same day surgery center Anesthesia Clearance Work Phone: [facility] Work Phone: Start: 11-09-2023 End: 11-09-2023 Patient encounter procedure Anesthesia Clearance Work Phone: Cardiothoracic Comment on above: Encounter for preope rative anesthesiology assessment for thoracic surgery (Primary Dx) Start: 11-09-2023 End: 11-09-2023 Patient encounter procedure Paula Lizama MD, PhD Work Phone: Thoracic [facility] Comment on above: Malignant neoplasm o f lower lobe of right lung (HCC) (Primary Dx) Start: 11-09-2023 End: 11-09-2023 Patient encounter status Card Injection [facility] Start: 11-09-2023 End: 11-09-2023 Subsequent hospital visit by physician Card Injection Molecular Imaging Start: 11-09-2023 End: 11-09-2023 Patient encounter status Xr J1 Work Phone: [facility] Start: 11-09-2023 End: 11-09-2023 Subsequent hospital visit by physician Xr Chest Main J1 Work Phone: Radiology Comment on above: Malignant neoplasm o f lower lobe of right lung (HCC) [C34.31] Start: 10-27-2023 End: 10-27-2023 Admission to same day surgery center Paula Lizama MD, PhD Work Phone: Thoracic [facility] Comment on above: Schedule Surgery (Ro botic right lower lobectomy C=3) Start: 10-27-2023 End: 10-27-2023 ambulatory Paula Lizama MD, PhD Work Phone: Thoracic Clinic Start: 10-27-2023 End: 10-27-2023 Patient encounter status Paula Lizama MD, PhD Work Phone: [facility] Start: 10-26-2023 End: 10-26-2023 Patient encounter procedure Praful Su MD Work Phone: [facility] Comment on above: Essential hypertensi on (Primary Dx); Screening for depression; Encounter for screening examination for other mental health and behavioral disorders; Prostate cancer (HCC); Glucose intolerance (impaired glucose tolerance); Spinal stenosis of lumbar region with neurogenic claudication; Mixed hyperlipidemia; Malignant neoplasm of lower lobe of right lung (HCC) Start: 10-19-2023 End: 10-19-2023 Patient encounter procedure Paula Lizama MD, PhD Work Phone: Thoracic Clinic Comment on above: Personal history of malignant neoplasm of bronchus and lung (Primary Dx) Start: 10-17-2023 End: 10-17-2023 [facility] Work Phone: [facility] Comment on above: Spirometry Start: 10-17-2023 End: 10-17-2023 Patient encounter procedure Pul Fct Lab [facility] Work Phone: Pulmonary Medicine Start: 10-10-2023 ambulatory Kevin garcia MD Work Phone: Hematology/Oncology Start: 10-10-2023 Telephone encounter Paula camp MD, PhD Work Phone: Thoracic Clinic Comment on above: Consult (RLL lung ca ncer) Start: 10-03-2023 End: 10-03-2023 ambulatory Kevin Patterson MD Work Phone: Hematology/Oncology Comment on above: Malignant neoplasm o f lung, unspecified laterality, unspecified part of lung (HCC) (Primary Dx); Squamous cell carcinoma of lung, unspecified laterality (HCC) Start: 10-03-2023 End: 10-03-2023 Patient encounter procedure Kevin Patterson MD Work Phone: Hematology/Oncology Start: 09-22-2023 Telephone encounter Thad Garrett MD Work Phone: Pulmonary Medicine Start: 09-19-2023 End: 09-19-2023 ambulatory ARCADIO HODGSON Facility:[facility] Start: 09-14-2023 End: 09-14-2023 Patient encounter procedure Silvano Mccrary MD Work Phone: Cardiovascular Medicine [facility] Comment on above: Preoperative cardiov ascular examination (Primary Dx); Lung mass; Mixed hyperlipidemia; Primary hypertension Start: 09-14-2023 End: 09-14-2023 Patient encounter status Silvano Mccrary MD Work Phone: [facility] Work Phone: Start: 09-11-2023 End: 09-11-2023 Admission to establishment [facility] Work Phone: Pre Anesthesia Start: 09-11-2023 End: 09-11-2023 Anesthesia consultation [facility] 2 Work Phone: Pre Anesthesia Comment on above: Pre-op evaluation (P rimary Dx); Abdominal aortic aneurysm (AAA) without rupture, unspecified part (HCC); Primary hypertension; Mixed hyperlipidemia; Cigarette nicotine dependence in remission; Glucose intolerance (impaired glucose tolerance); Prostate cancer (HCC); Paroxysmal atrial fibrillation (HCC) Start: 09-11-2023 End: 09-11-2023 Preprocedural examination done [facility] 2 Work Phone: [facility] Start: 09-04-2023 ambulatory Arcadio hickey MD Work Phone: Pulmonology Start: 09-04-2023 Patient encounter procedure Arcadio Hodgson MD Work Phone: Pulmonary Medicine Start: 09-04-2023 Telephone encounter Thad Garrett MD Work Phone: Pulmonary Medicine Start: 09-01-2023 End: 09-01-2023 Patient encounter procedure Thad Garrett MD Work Phone: Pulmonary Medicine Comment on above: Chronic obstructive pulmonary disease, unspecified COPD type (HCC) (Primary Dx); Preoperative clearance; Paroxysmal atrial fibrillation (HCC); Lung mass; Former smoker Start: 09-01-2023 End: 09-01-2023 Preoperative state Thad Garrett MD Work Phone: [facility] Start: 09-01-2023 Telephone encounter Thad Garrett MD Work Phone: Pulmonary Medicine Start: 08-28-2023 End: 08-28-2023 Subsequent hospital visit by physician Ct [facility] Radiology Comment on above: Lung mass [R91.8] Start: 08-21-2023 Refill Praful cuellar MD Work Phone: [facility] Comment on above: Refill Request Start: 08-11-2023 Telephone encounter Thad Garrett MD Work Phone: [facility] Provider Adult Start: 07-31-2023 Refill Praful cuellar MD Work Phone: [facility] Comment on above: Refill Request Start: 07-28-2023 End: 07-28-2023 Patient encounter procedure Thad Garrett MD Work Phone: Pulmonary Medicine Comment on above: Lung mass (Primary D x); Chronic obstructive pulmonary disease, unspecified COPD type (HCC); SOB (shortness of breath); Centrilobular emphysema (HCC); Lung nodules; Current smoker Start: 07-28-2023 Refill Thad pires MD Work Phone: Pulmonary Medicine Comment on above: Med Change Request Start: 07-04-2023 End: 07-04-2023 ambulatory Pulm Work Phone: Pulmonary Medicine Comment on above: Spirometry Start: 07-04-2023 End: 07-04-2023 Patient encounter procedure Pulm Fct Lab [facility] Work Phone: Pulmonary Medicine Start: 06-23-2023 Orders Only Thad pires MD Work Phone: Pulmonary Medicine Start: 06-20-2023 End: 06-20-2023 ambulatory Arcadio Hodgson MD Work Phone: [facility] Provider Adult Comment on above: Results (Post Bronch oscopy note ) Start: 06-19-2023 End: 06-19-2023 Subsequent hospital visit by physician Injection [facility] Comment on above: Lung nodules [R91.8] Start: 06-16-2023 Telephone encounter Arcadio strange MD Work Phone: Pulmonology Start: 06-14-2023 End: 06-14-2023 Subsequent hospital visit by physician [facility] Work Phone: Cardiology Lab Comment on above: Lung mass [R91.8] Start: 06-12-2023 ambulatory Arcadio hickey MD Work Phone: Pulmonology Comment on above: Bronchoscopy Schedul ing Start: 06-12-2023 Patient encounter procedure Arcadio Hodgson MD Work Phone: Pulmonology Start: 06-09-2023 Telephone encounter Thad Garrett MD Work Phone: Pulmonary Medicine Start: 06-08-2023 End: 06-08-2023 Patient encounter procedure Thad Garrett MD Work Phone: Pulmonary Medicine Comment on above: SOB (shortness of br eath) (Primary Dx); Lung nodules; Centrilobular emphysema (HCC); Former smoker; Infrarenal abdominal aortic aneurysm (AAA) without rupture (HCC); History of prostate cancer Start: 06-06-2023 End: 06-06-2023 Patient encounter procedure Tea Jackson MD Work Phone: Vascular Surgery Comment on above: Abdominal aortic ane urysm (AAA) without rupture, unspecified part (HCC) (Primary Dx) Start: 05-30-2023 ambulatory Shanti king INTERNATIONAL MARKETING EXECUTIVE.SUPERVISOR STRIPPING Work Phone: Pulmonary Medicine Start: 05-29-2023 Refill Praful cuellar MD Work Phone: [facility] Comment on above: Refill Request Start: 05-18-2023 Orders Only Phuong Beasley INTERNATIONAL MARKETING EXECUTIVE.SUPERVISOR STRIPPING Work Phone: Vascular Surgery Comment on above: Lung nodule (Primary Dx) Start: 05-17-2023 End: 05-17-[address] [facility] Start: 05-17-2023 End: 05-17-2023 Subsequent hospital visit by physician Ct [facility] Radiology Comment on above: Abdominal aortic ane urysm (AAA) without rupture, unspecified part (HCC) [I71.40] Start: 05-11-2023 Telephone encounter Praful crowder MD Work Phone: [facility] Start: 05-03-2023 Telephone encounter Praful crowder MD Work Phone: [facility] Start: 04-27-2023 End: 04-27-2023 Patient encounter procedure Praful Su MD Work Phone: [facility] Comment on above: Glucose intolerance (impaired glucose tolerance) (Primary Dx); Spinal stenosis of lumbar region with neurogenic claudication; Paresthesias; Prostate cancer (HCC); Essential hypertension; Abdominal aortic aneurysm (AAA) without rupture, unspecified part (HCC); Mixed hyperlipidemia; Screening for colon cancer Start: 04-25-2023 End: 04-25-2023 Office outpatient visit 15 minutes Phuong Beasley APRN.SUPERVISOR STRIPPING Work Phone: Vascular Surgery Comment on above: Abdominal aortic ane urysm (AAA) without rupture, unspecified part (HCC) (Primary Dx); Primary hypertension; HDL deficiency; Encounter for other preprocedural examination Start: 04-25-2023 End: 04-25-2023 Patient encounter status Phuong Beasley APRN.SUPERVISOR STRIPPING Work Phone: [facility] Work Phone: Start: 12-29-2022 Telephone encounter Don Lara MD Work Phone: Urology Comment on above: Results Start: 10-13-2022 End: 10-13-2022 Patient encounter procedure Navid Roberts MD Work Phone: Vascular Surgery Comment on above: Infrarenal abdominal aortic aneurysm (AAA) without rupture (HCC) (Primary Dx) Start: 09-26-2022 Telephone encounter Navid martins MD Work Phone: Vascular Surgery Comment on above: Appointment Start: 08-29-2022 Refill Praful cuellar MD Work Phone: [facility] Comment on above: Refill Request Start: 05-30-2022 Refill Praful cuellar MD Work Phone: [facility] Comment on above: Refill Request Start: 04-12-2022 End: 04-12-2022 ambulatory Negrito Neely MD Work Phone: [facility] Comment on above: Malignant neoplasm o f prostate (HCC) (Primary Dx) Start: 04-12-2022 End: 04-12-2022 Telemedicine consultation with patient Negrito Neely MD Work Phone: [facility] Start: 03-30-2022 End: 03-30-2022 Patient encounter procedure Navid Roberts MD Work Phone: Vascular Surgery Comment on above: Abdominal aortic ane urysm (AAA) without rupture, unspecified part Start: 03-22-2022 Telephone encounter Praful crowder MD Work Phone: [facility] Comment on above: Results Start: 03-18-2022 Telephone encounter Praful crowder MD Work Phone: [facility] Comment on above: Results Start: 03-14-2022 Telephone encounter Praful crowder MD Work Phone: [facility] Comment on above: Orders Start: 03-11-2022 End: 03-11-2022 Subsequent hospital visit by physician [facility] 2 Work Phone: Radiology Comment on above: Canceled (CC cx: Err or or Template Change) Start: 03-07-2022 End: 03-07-2022 Patient encounter procedure Praful Su MD Work Phone: [facility] Comment on above: Essential hypertensi on (Primary Dx); Glucose intolerance (impaired glucose tolerance); Abdominal aortic aneurysm (AAA) without rupture, unspecified part; Screening for colon cancer Start: 02-07-2022 Refill Praful cuellar MD Work Phone: [facility] Comment on above: Refill Request Start: 12-07-2021 Telephone encounter Don Lara MD Work Phone: Urology Comment on above: Appointment Start: 11-25-2021 ambulatory Jocelyn Choi [facility] [place] Comment on above: Population Health Na vigation Outreach ([facility] care gaps) Start: 11-17-2021 Telephone encounter Negrito snell MD Work Phone: [facility] Comment on above: Patient Question Start: 08-12-2021 Telephone encounter Praful crowder MD Work Phone: [facility] Comment on above: Results (blood test ) Start: 08-11-2021 End: 08-11-2021 Patient encounter procedure Praful Su MD Work Phone: [facility] Comment on above: Essential hypertensi on (Primary Dx); Glucose intolerance (impaired glucose tolerance); Mixed hyperlipidemia; Abdominal aortic aneurysm without rupture (HCC) Start: 06-03-2021 Refill Praful cuellar MD Work Phone: [facility] Comment on above: Refill Request Start: 05-26-2021 Telephone encounter Negrito snell MD Work Phone: [facility] Comment on above: Results Procedures Date Procedure Procedure Detail Performing Clinician Start: 11-22-2024 Follow-up visit Follow Up ROMINA DOWD Start: 2024 Radiologic exam ches t 2 views Romina Velcarleen INTERNATIONAL MARKETING EXECUTIVE.SUPERVISOR STRIPPING Work Phone: Start: 07-01-2024 Radiologic exam ches t 2 views Yuniel Baltazar INTERNATIONAL MARKETING EXECUTIVE.SUPERVISOR STRIPPING Work Phone: Start: 07-01-2024 Radiologic exam ches t 2 views Pastora Gabby INTERNATIONAL MARKETING EXECUTIVE.SUPERVISOR STRIPPING Work Phone: Start: 06-07-2024 Antibody screen PRAFUL MORLEY Comment on above: Order Comment: Speci men Type: BLOOD SPECIMENOrdering Facility: [facility] Address: [address] [place] [address] Performed By: #### T [id number] ####CC MAIN BLOOD BANKCLIA [id number] [place] [id number] [place] Start: 06-07-2024 Radiologic exam ches t 2 views Paula Lizama MD, PhD Work Phone: Start: 05-17-2024 Radiologic exam ches t 2 views Jerry Pompa INTERNATIONAL MARKETING EXECUTIVE.SUPERVISOR STRIPPING Work Phone: Start: 05-08-2024 Co diffusing capacity Eliot Kahn INTERNATIONAL MARKETING EXECUTIVE.SUPERVISOR STRIPPING Work Phone: Start: 05-07-2024 Lipid 1996 panel - S malcom or Plasma Praful Su MD Work Phone: Start: 01-08-2024 Radiologic exam ches t 2 views Romina Kahn INTERNATIONAL MARKETING EXECUTIVE.SUPERVISOR STRIPPING Work Phone: Start: 01-04-2024 Urnls dip stick/tabl et rgnt auto w/o microscopy Don Lara MD Work Phone: Start: 11-27-2023 Radiologic exam ches t 2 views Fay Araya INTERNATIONAL MARKETING EXECUTIVE.SUPERVISOR STRIPPING Work Phone: Start: 11-10-2023 Mri brain brain stem w/o w/contrast material Paula Lizama MD, PhD Work Phone: Start: 11-09-2023 Myocardial spect mul tiple studies Paula Lizama MD, PhD Work Phone: Start: 11-09-2023 Radiologic exam ches t 2 views Paula Lizama MD, PhD Work Phone: Start: 10-26-2023 Adult depression scr eening assessment Praful Su MD Work Phone: Start: 10-17-2023 Pulmonary stress testing Paula Lizama MD, PhD Work Phone: Start: 07-04-2023 Brncdilat rspse spmt ry pre&post-brncdilat admn Thad Garrett MD Work Phone: Start: 06-14-2023 Ecg routine ecg w/le ast 12 lds i&r only Arcadio Hodgson MD Work Phone: Start: 05-17-2023 Ct angiography chest w/contrast/noncontrast Phuong Beasley INTERNATIONAL MARKETING EXECUTIVE.SUPERVISOR STRIPPING Work Phone: Start: 05-17-2023 Cta abdl aorta&bi il iofem w/contrast&postp Phuong Beasley INTERNATIONAL MARKETING EXECUTIVE.SUPERVISOR STRIPPING Work Phone: Start: 05-02-2023 Lipid 1996 panel - S malcom or Plasma Praful Su MD Work Phone: Start: 03-14-2022 Lipid 1996 panel - S malcom or Plasma Don Lara MD Work Phone: Start: 02-08-2021 Adult depression scr eening assessment Negrito Neely MD Work Phone: Plan of Treatment Date Care Activity Detail Author Start: 05-07-2029 Lipid panel Lipid Screening [facility] Start: 05-01-2028 Lipid panel Lipid Screening [facility] Start: 10-29-2027 Diabetes Screening Diabetes Screening [facility] Start: 10-26-2027 Diabetes Screening Diabetes Screening [facility] Start: 10-25-2027 Diabetes Screening Diabetes Screening [facility] Start: 06-24-2027 Diabetes Screening Diabetes Screening [facility] Start: 06-08-2027 Diabetes Screening Diabetes Screening [facility] Start: 05-13-2027 Diabetes Screening Diabetes Screening [facility] Start: 05-08-2027 Diabetes Screening Diabetes Screening [facility] Start: 03-14-2027 Lipid 1996 panel - Serum or Plasma Lipid Screening [facility] Start: 03-14-2027 Lipid panel Lipid Screening [facility] Start: 03-14-2027 LIPID SCREEN LIPID SCREEN [facility] Start: 11-18-2026 Diabetes Screening Diabetes Screening [facility] Start: 11-08-2026 Diabetes Screening Diabetes Screening [facility] Start: 09-10-2026 Diabetes Screening Diabetes Screening [facility] Start: 05-25-2026 PROSTATE CANCER SCREENING DISCUSSION PROSTATE CANCER SCREENING DISCUSSION [facility] Start: 05-01-2026 Diabetes Screening Diabetes Screening [facility] Start: 02-08-2026 LIPID SCREEN LIPID SCREEN [facility] Start: 10-24-2025 Annual PCP Team Chronic Disease Visit Annual PCP Team Chronic Disease Visit [facility] Start: 2025 BP Controlled (<130/80) BP Controlled (<130/80) [facility] Start: 07-01-2025 BP Controlled (<130/80) BP Controlled (<130/80) [facility] Start: 06-18-2025 BP Controlled (<130/80) BP Controlled (<130/80) [facility] Start: 06-13-2025 BP Controlled (<130/80) BP Controlled (<130/80) [facility] Start: 05-17-2025 BP Controlled (<130/80) BP Controlled (<130/80) [facility] Start: 05-01-2025 Screening for malignant neoplasm of colon [facility] Start: 04-25-2025 Annual PCP Team Chronic Disease Visit Annual PCP Team Chronic Disease Visit [facility] Start: 04-25-2025 BP Controlled (<130/80) BP Controlled (<130/80) [facility] Start: 03-14-2025 DIABETES SCREEN DIABETES SCREEN [facility] Start: 03-14-2025 Diabetes Screening Diabetes Screening [facility] Start: 03-13-2025 End: 03-13-2025 Patient encounter procedure 03/13/2025 3:00 PM EST Office Visit Urology [address] [address] Don Lara MD [address] [place] [address] 1 year FU Urology Comment on above: 1 year FU Start: 01-16-2025 End: 01-16-2025 Patient encounter procedure Urology Comment on above: 1 year FU Start: 01-07-2025 BP Controlled (<130/80) BP Controlled (<130/80) [facility] Start: 01-03-2025 End: 04-04-2025 Prostate specific Ag [Mass/volume] in Serum or Plasma PROSTATE-SPECIFIC ANTIGEN DIAGNOSTIC Lab Routine Prostate cancer (HCC) Expected: 01/03/2025 (Approximate), Expires: 04/04/2025 [facility] Work Phone: Comment on above: Expected: 01/03/2025 (Approximate), Expi res: 04/04/2025 Start: 12-24-2024 End: 12-24-2024 Patient encounter procedure Vascular Surgery Comment on above: AAA rizwan lab and 6 motnh follow up Start: 12-18-2024 End: 06-18-2025 US Abdominal Aorta US ABD AORTA COMPLETE VAS LAB Vascular Lab Routine Infrarenal abdominal aortic aneurysm (AAA) without rupture Expected: 12/18/2024 (Approximate), Expires: 06/18/2025 [facility] Work Phone: Comment on above: Expected: 12/18/2024 (Approximate), Expi res: 06/18/2025 Start: 12-17-2024 End: 12-17-2024 Follow-up encounter Hematology/Oncology Comment on above: 3 mo follow up Start: 12-12-2024 End: 03-13-2025 CBC W Auto Differential panel - Blood COMPLETE BLOOD COUNT AND DIFFERENTIAL Lab Routine Malignant neoplasm of unspecified part of unspecified bronchus or lung (HCC) Squamous cell carcinoma of lung, unspecified laterality (HCC) Expected: 12/12/2024 (Approximate), Expires: 03/13/2025 [facility] Work Phone: Comment on above: Expected: 12/12/2024 (Approximate), Expi res: 03/13/2025 Start: 12-12-2024 End: 03-13-2025 Comprehensive metabolic 2000 panel - Serum or Plasma COMPREHENSIVE METABOLIC PANEL Lab Routine Malignant neoplasm of unspecified part of unspecified bronchus or lung (HCC) Squamous cell carcinoma of lung, unspecified laterality (HCC) Expected: 12/12/2024 (Approximate), Expires: 03/13/[address] [facility] Comment on above: Expected: 12/12/2024 (Approximate), Expi res: 03/13/2025 Start: 12-12-2024 End: 03-13-2025 Prostate specific Ag [Mass/volume] in Serum or Plasma PROSTATE-SPECIFIC ANTIGEN DIAGNOSTIC Lab Routine Malignant neoplasm of unspecified part of unspecified bronchus or lung (HCC) Squamous cell carcinoma of lung, unspecified laterality (HCC) Expected: 12/12/2024 (Approximate), Expires: 03/13/[address] [facility] Comment on above: Expected: 12/12/2024 (Approximate), Expi res: 03/13/2025 Start: 12-12-2024 End: 12-12-2024 ambulatory 12/12/2024 1:00 PM EDT Results Only [facility] [address] [place] [address] labs [facility] Comment on above: labs Start: 11-28-2024 BP Controlled (<130/80) BP Controlled (<130/80) [facility] Start: 11-26-2024 BP Controlled (<130/80) BP Controlled (<130/80) [facility] Start: 11-22-2024 End: 11-22-2024 Patient encounter procedure 11/22/2024 9:30 AM EDT [facility] [address] [place] [address] Romina Kahn APRN.SUPERVISOR STRIPPING [address] [place] [address] [facility] Clinic Comment on above: VIRTUAL Start: 11-21-2024 End: 11-21-2024 Patient encounter procedure 11/21/2024 12:30 PM EDT Appointment Radiology [address] [place] [address] CCT Radiology Comment on above: CCT Start: 11-19-2024 End: 11-19-2024 Follow-up encounter 11/19/2024 10:30 AM EDT Visit (SP) Office Hematology/Oncology [address] [address] Elias Hills MD [address] [address] scan follow up Hematology/Oncology Comment on above: scan follow up Start: 11-15-2024 End: 11-15-[address] Scan Comment on above: Squamous cell carcinoma of lung, unspeci fied laterality (HCC) [C34.90] Start: 10-29-2024 End: 10-29-2024 Admission to same day surgery center 10/29/2024 1:30 PM EDT - 10/29/2024 3:30 PM EDT Surgery Admitting [address] [place] [address] Siddharth Martinez MD [address] [place] [address] BRONCHOSCOPY FLEXIBLE ADULT Admitting Comment on above: BRONCHOSCOPY FLEXIBLE ADULT Start: 10-29-2024 End: 10-29-2024 [facility] incl fluor gdnce dx w/cell washg spx BRONCHOSCOPY FLEXIBLE ADULT Bronchiolar disease 10/29/2024 1:30 PM EDT PULM LAB H23 Start: 10-29-2024 Subsequent hospital visit by physician 10/29/2024 1:30 PM EDT Hospital Encounter Admitting [address] [place] [address] Siddharth Martinez MD [address] [place] [address] Bronchiolar disease [J98.09] Admitting Comment on above: Bronchiolar disease [J98.09] Start: 10-28-2024 Influenza vaccination Influenza Vaccine (#1) [facility] Start: 10-25-2024 Annual PCP Team Chronic Disease Visit Annual PCP Team Chronic Disease Visit [facility] Start: 10-25-2024 Anxiety Screening Anxiety Screening [facility] Start: 10-25-2024 BP Controlled (<130/80) BP Controlled (<130/80) [facility] Start: 10-25-2024 Depression Screening Depression Screening [facility] Start: 10-24-2024 End: 10-24-2024 Patient encounter procedure 10/24/2024 2:20 PM EDT Office Visit [facility] [address] [place] [address] Praful Su MD [address] [place], [place] [id number] lipids follow up [facility] Comment on above: lipids follow up Start: 10-18-2024 BP Controlled (<130/80) BP Controlled (<130/80) [facility] Start: 10-02-2024 BP Controlled (<130/80) BP Controlled (<130/80) [facility] Start: 09-13-2024 BP Controlled (<130/80) BP Controlled (<130/80) [facility] Start: 09-11-2024 End: 09-11-2024 ambulatory 09/11/2024 11:10 AM EDT Visit (SP) Office Hematology/Oncology [address] [address] Kevin Patterson MD [address] [place] [address] Squamous cell carcinoma of lung, unspecified laterality Hematology/Oncology Comment on above: Squamous cell carcinoma of lung, unspeci fied laterality Start: 09-10-2024 BP Controlled (<130/80) BP Controlled (<130/80) [facility] Start: 08-31-2024 BP Controlled (<130/80) BP Controlled (<130/80) [facility] Start: 08-27-2024 Screening for malignant neoplasm of lung Lung Cancer Screening [facility] Start: 08-23-2024 End: 08-23-2024 Patient encounter procedure 08/23/2024 11:00 AM EDT Office Visit Radiation Oncology [address] [place] [address] [place] [address] [place] [address] follow up Radiation Oncology Comment on above: follow up Start: 08-20-2024 End: 08-20-2024 Patient encounter procedure 08/20/2024 1:00 PM EDT [facility] [address] [place] [address] Romina Kahn, INTERNATIONAL MARKETING EXECUTIVE.SUPERVISOR STRIPPING [address] [place] [address] [facility] Thor[facility] Comment on above: VIRTUAL Start: 08-19-2024 End: 08-19-2024 Patient encounter procedure 08/19/2024 11:00 AM EDT Appointment Radiology [address] [place] [address] cxr Radiology Comment on above: cxr Start: 08-11-2024 DIABETES SCREEN DIABETES SCREEN [facility] Start: 08-06-2024 Covid-19 Vaccine ( season) Covid-19 Vaccine ( season) [facility] Start: 2024 End: 2024 Patient encounter procedure Radiology Comment on above: cxr Bronchopleural fistu la Start: 07-01-2024 End: 07-01-2024 Patient encounter procedure Radiology Comment on above: cxr Enlarging air space right chest, rule out pneumatocele/rule out bronchopleural fistula, rule out alveolar pleural fistula. Start: 06-19-2024 End: 06-19-2024 Admission to same day surgery center 06/19/2024 12:54 PM EDT - 06/19/2024 5:18 PM EDT Surgery Admitting [address] [place] [address] Paula Lizama MD, PhD [address] [facility] [address] [place] [address] Possible Right ROBOTIC THORACOSCOPY, possible thoracotomy, possible lung resection ; LOBECTOMY, TOTAL OR SEGMENTAL Admitting Comment on above: Possible Right ROBOTIC THORACOSCOPY, pos sible thoracotomy, possible lung resection ; LOBECTOMY, TOTAL OR SEGMENTAL Start: 06-19-2024 Subsequent hospital visit by physician Admitting Comment on above: Hydropneumothorax [J94.8], Pre-procedure lab exam [Z01.812] Start: 06-19-2024 End: 06-19-2024 Thoracoscopy w/lobectomy single lobe ROBOTIC THORACOSCOPY; LOBECTOMY, TOTAL OR SEGMENTAL Hydropneumothorax Pre-procedure lab exam 06/19/2024 12:54 PM EDT [facility] Start: 06-19-2024 End: 06-19-2024 Thoracoscopy w/lobectomy single lobe ROBOTIC THORACOSCOPY; LOBECTOMY, TOTAL OR SEGMENTAL Hydropneumothorax Pre-procedure lab exam 06/19/2024 7:29 AM EDT [facility] Start: 06-18-2024 End: 12-18-2024 US Abdominal Aorta US ABD AORTA COMPLETE VAS LAB Vascular Lab Routine Infrarenal abdominal aortic aneurysm (AAA) without rupture (HCC) Expected: 06/18/2024, Expires: 12/18/2024 [facility] Work Phone: Comment on above: Expected: 06/18/2024, Expires: Start: 06-18-2024 End: 06-18-2024 Patient encounter procedure Vascular Surgery Comment on above: AAA AND 6 MONTH FOLLOW UP Start: 06-13-2024 End: 06-13-2024 Patient encounter procedure 06/13/2024 3:00 PM EDT Office Visit Pulmonary Medicine [address] [id number] Thad Garrett MD [address] [place], [place] [id number] Follow up Pulmonary Medicine Comment on above: Follow up Start: 06-07-2024 End: 09-06-2024 aPTT in Platelet poor plasma by Coagulation assay ACTIVATED PARTIAL THROMBOPLASTIN TIME Lab STAT Hydropneumothorax Pre-procedure lab exam Expected: 06/07/2024, Expires: 09/06/[address] [facility] Comment on above: Expected: 06/07/2024, Expires: Start: 06-07-2024 End: 09-06-2024 CBC W Auto Differential panel - Blood COMPLETE BLOOD COUNT AND DIFFERENTIAL Lab STAT Hydropneumothorax Pre-procedure lab exam Expected: 06/07/2024, Expires: 09/06/[address] [facility] Comment on above: Expected: 06/07/2024, Expires: Start: 06-07-2024 End: 09-06-2024 Comprehensive metabolic 2000 panel - Serum or Plasma COMPREHENSIVE METABOLIC PANEL Lab STAT Hydropneumothorax Pre-procedure lab exam Expected: 06/07/2024, Expires: 09/06/[address] [facility] Comment on above: Expected: 06/07/2024, Expires: Start: 06-07-2024 End: 09-06-2024 CONFIRM BLOOD TYPE CONFIRM BLOOD TYPE Blood Bank STAT Hydropneumothorax Pre-procedure lab exam Expected: 06/07/2024, Expires: 09/06/[address] [facility] Comment on above: Expected: 06/07/2024, Expires: Start: 06-07-2024 End: 09-06-2024 PT panel - Platelet poor plasma by Coagulation assay PROTHROMBIN TIME Lab STAT Hydropneumothorax Pre-procedure lab exam Expected: 06/07/2024, Expires: 09/06/[address] [facility] Comment on above: Expected: 06/07/2024, Expires: Start: 06-07-2024 End: 09-06-2024 STAPHYLOCOCCUS AUREUS & MRSA SCREEN, PCR, NASAL STAPHYLOCOCCUS AUREUS & MRSA SCREEN, PCR, NASAL Lab STAT Hydropneumothorax Pre-procedure lab exam Expected: 06/07/2024, Expires: 09/06/[address] [facility] Comment on above: Expected: 06/07/2024, Expires: Start: 06-07-2024 End: 09-06-2024 TYPE AND SCREEN,30 DAY TYPE AND SCREEN,30 DAY Blood Bank STAT Hydropneumothorax Pre-procedure lab exam Expected: 06/07/2024, Expires: 09/06/[address] [facility] Comment on above: Expected: 06/07/2024, Expires: Start: 06-07-2024 End: 09-06-2024 URINALYSIS, DIPSTICK ONLY URINALYSIS, DIPSTICK ONLY Lab STAT Hydropneumothorax Pre-procedure lab exam Expected: 06/07/2024, Expires: 09/06/[address] [facility] Comment on above: Expected: 06/07/2024, Expires: Start: 05-22-2024 End: 05-22-2024 ambulatory 05/22/2024 2:40 PM EDT Visit (SP) Office Hematology/Oncology [address] [place] [address] [place] [address] [place] [address] Squamous cell carcinoma of lung, unspecified laterality Hematology/Oncology Comment on above: Squamous cell carcinoma of lung, unspeci fied laterality Start: 05-20-2024 End: 05-20-2024 Follow-up encounter 05/20/2024 3:00 PM EDT [facility] Radiation Oncology [address] [place] [address] [place] [address] [place] [address] follow up Radiation Oncology Comment on above: follow up Start: 05-17-2024 End: 05-17-2024 Patient encounter procedure Radiology Comment on above: cxr right basilar pneumo thorax Start: 05-09-2024 End: 05-09-2024 Patient encounter procedure 05/09/2024 1:00 PM EDT [facility] [address] [place] [address] Romina Kahn APRN.SUPERVISOR STRIPPING [address] [place] [address] VIRTUAL Thoracic Clinic Comment on above: VIRTUAL Start: 05-08-2024 End: 05-08-2024 ambulatory 05/08/2024 2:20 PM EDT Visit (SP) Office Hematology/Oncology [address] [place] [address] Kevin Patterson MD [address] [place], [place] [phone] Squamous cell carcinoma of lung, unspecified laterality Hematology/Oncology Comment on above: Squamous cell carcinoma of lung, unspeci fied laterality Start: 05-08-2024 End: 05-08-2024 Patient encounter procedure Radiology Comment on above: CCT SEND TO LAB left for pt to get labs doen. Pt has BMP order from Dr. Ramirez . ANY SIZE IV CHEST WITH CCT Start: 05-08-2024 End: 05-08-2024 ambulatory Pulmonary Medicine Comment on above: DLCO spirometry Start: 04-26-2024 Annual PCP Team Chronic Disease Visit Annual PCP Team Chronic Disease Visit [facility] Start: 04-26-2024 BP Controlled (<130/80) BP Controlled (<130/80) [facility] Start: 04-26-2024 Screening for malignant neoplasm of colon [facility] Start: 04-25-2024 End: 04-25-2024 Patient encounter procedure 04/25/2024 2:20 PM EST Office Visit [facility] [address] [place] [address] Praful Su MD [address] [place] [address] lipids follow up [facility] Comment on above: lipids follow up Start: 04-25-2024 End: 07-25-2024 Basic metabolic 2000 panel - Serum or Plasma BASIC METABOLIC PANEL Lab Routine Essential hypertension Expected: 04/25/2024, Expires: 07/25/2024 [facility] Work Phone: Comment on above: Expected: 04/25/2024, Expires: Start: 04-25-2024 BP Controlled (<130/80) BP Controlled (<130/80) [facility] Start: 04-25-2024 End: 07-25-2024 Lipid 1996 panel - Serum or Plasma LIPID PANEL BASIC Lab Routine Mixed hyperlipidemia Expected: 04/25/2024, Expires: 07/25/[address] [facility] Comment on above: Expected: 04/25/2024, Expires: Start: 04-08-2024 End: 04-08-2024 Telephone encounter 04/08/2024 2:30 PM EST [facility] [address] [place] [address] Negrito Neely MD [address] [place] [address] 2 yr F/U Telephone only [phone] [facility] Comment on above: 2 yr F/U Telephone only [phone] Start: 02-29-2024 End: 02-29-2024 Follow-up encounter 02/29/2024 11:30 AM EST [facility] [address] [place] [address] [place] [address] [place] [phone] 4 week follow up Radiation Oncology Comment on above: 4 week follow up Start: 02-28-2024 Advance Directive Discussion Advance Directive Discussion [facility] Start: 02-28-2024 Medicare Advantage Annual Wellness Visit Medicare [facility] Annual Wellness Visit [facility] Start: 02-14-2024 End: 02-14-2024 Patient encounter procedure 02/14/2024 3:00 PM EST Office Visit Pulmonary Medicine [address] [address] Thad Garrett MD [address] [place] [address] 5 month follow up Pulmonary Medicine Comment on above: 5 month follow up Start: 02-09-2024 DIABETES SCREEN DIABETES SCREEN [facility] Start: 02-05-2024 End: 02-05-2024 Patient encounter procedure 02/05/2024 10:00 AM EST Office Visit [facility] [address] [place], [place] [phone] Praful Su MD [address] [place] [address] ER Follow up [facility] 01/31/2024 Foreign body of right ear [facility] Comment on above: ER Follow up [facility] 01/31/2024 F oreign body of right ear Start: 02-02-2024 End: 02-02-2024 Patient encounter procedure Radiology Comment on above: cxr Malignant neoplasm o f lower lobe of right lung Start: 02-01-2024 End: 02-01-2024 Patient encounter procedure Radiation Oncology Comment on above: MLC AND FIELD VERIFICATION Location: [facility] Start: 01-16-2024 End: 01-16-2024 Patient encounter procedure 01/16/2024 11:30 AM EST Office Visit Radiation Oncology [address] [place] [address] [place] [address] [place] [address] SIMULATION SBRT LUNG Radiation Oncology Comment on above: SIMULATION SBRT LUNG Start: 01-11-2024 End: 01-11-2024 Patient encounter procedure 01/11/2024 1:00 PM EST Office Visit Radiation Oncology [address] [place] [address] [place] [address] [place] [address] Malignant neoplasm of unspecified part of unspecified bronchus or lung (HCC) [C3... Radiation Oncology Comment on above: Malignant neoplasm of unspecified part o f unspecified bronchus or lung (HCC) [C3... Start: 01-08-2024 End: 01-08-2024 Patient encounter procedure Radiology Comment on above: cxr Malignant neoplasm o f lower lobe of right lung Start: 01-04-2024 End: 01-04-2024 Patient encounter procedure 01/04/2024 3:00 PM EST Office Visit Urology [address] [address] Don Lara MD [address] [place] [address] 1 year follow up Urology Comment on above: 1 year follow up Start: 01-04-2024 End: 04-04-2024 Prostate specific Ag [Mass/volume] in Serum or Plasma PROSTATE-SPECIFIC ANTIGEN DIAGNOSTIC Lab Routine Prostate cancer (HCC) Expected: 01/04/2024, Expires: 04/04/[address] [facility] Comment on above: Expected: 01/04/2024, Expires: Start: 12-20-2023 End: 12-20-2023 Patient encounter procedure 12/20/2023 3:00 PM EDT Office Visit Cardiovascular Medicine [facility] [address] [place] [address] [place] [address] [facility] [place] [address] f/u Cardiovascular Medicine [facility] Comment on above: f/u Start: 12-19-2023 End: 12-19-2023 Patient encounter procedure Vascular Surgery Comment on above: 6 MONTH FOLLOW UP WITH AAA TESTING Start: 12-19-2023 End: 12-19-2023 Follow-up encounter 12/19/2023 8:50 AM EDT Visit (SP) Office Hematology/Oncology [address] [address] Kevin Patterson MD [address] [place] [address] follow up ok per Dr. Gustafson Hematology/Oncology Comment on above: follow up ok per Dr. Gustafson Start: 12-09-2023 End: 12-09-2023 Patient encounter procedure 12/09/2023 9:00 AM EDT Appointment Radiology [address] [place] [address] Squamous cell carcinoma of lung, unspecified laterality (HCC) [C34.90] Radiology Comment on above: Squamous cell carcinoma of lung, unspeci fied laterality (HCC) [C34.90] Start: 11-29-2023 End: 11-29-2023 ambulatory 11/29/2023 2:20 PM EDT Visit (SP) Office Hematology/Oncology [address] [address] Kevin Patterson MD [address] [place], [place] [phone] Squamous cell carcinoma of lung, unspecified laterality Hematology/Oncology Comment on above: Squamous cell carcinoma of lung, unspeci fied laterality Start: 11-27-2023 End: 11-27-2023 Patient encounter procedure Radiology Comment on above: cxr Cancer of lower lobe of right lung (HCC) Start: 11-15-2023 End: 11-15-2023 Admission to same day surgery center 11/15/2023 12:33 PM EDT - 11/15/2023 4:45 PM EDT Surgery Admitting [address] [place] [address] Paula Lizama MD, PhD [address] [place] [address] ROBOTIC THORACOSCOPY; LOBECTOMY, TOTAL OR SEGMENTAL Admitting Comment on above: ROBOTIC THORACOSCOPY; LOBECTOMY, TOTAL O R SEGMENTAL Start: 11-15-2023 Subsequent hospital visit by physician Admitting Comment on above: Malignant neoplasm of lower lobe of righ t lung (HCC) [C34.31] Start: 11-15-2023 End: 11-15-2023 Thoracoscopy w/lobectomy single lobe ROBOTIC THORACOSCOPY; LOBECTOMY, TOTAL OR SEGMENTAL Malignant neoplasm of lower lobe of right lung (HCC) Pre-procedure lab exam 11/15/2023 12:33 PM EDT [facility] Start: 11-15-2023 End: 11-15-2023 Thoracoscopy w/lobectomy single lobe ROBOTIC THORACOSCOPY; LOBECTOMY, TOTAL OR SEGMENTAL Malignant neoplasm of lower lobe of right lung (HCC) Pre-procedure lab exam 11/15/2023 7:40 AM EDT [facility] Start: 11-10-2023 Subsequent hospital visit by physician 11/10/2023 12:40 PM EDT Hospital Encounter Radiology [address] [place] [address] Malignant neoplasm of lower lobe of right lung (HCC) [C34.31] Radiology Comment on above: Malignant neoplasm of lower lobe of righ t lung (HCC) [C34.31] Start: 11-09-2023 End: 02-08-2024 aPTT in Platelet poor plasma by Coagulation assay ACTIVATED PARTIAL THROMBOPLASTIN TIME Lab STAT Malignant neoplasm of lower lobe of right lung (HCC) Pre-procedure lab exam Expected: 11/09/2023, Expires: 02/08/[address] [facility] Comment on above: Expected: 11/09/2023, Expires: Start: 11-09-2023 End: 02-08-2024 CBC W Auto Differential panel - Blood COMPLETE BLOOD COUNT AND DIFFERENTIAL Lab STAT Malignant neoplasm of lower lobe of right lung (HCC) Pre-procedure lab exam Expected: 11/09/2023, Expires: 02/08/[address] [facility] Comment on above: Expected: 11/09/2023, Expires: 4 Start: 11-09-2023 End: 02-08-2024 Comprehensive metabolic 2000 panel - Serum or Plasma COMPREHENSIVE METABOLIC PANEL Lab STAT Malignant neoplasm of lower lobe of right lung (HCC) Pre-procedure lab exam Expected: 11/09/2023, Expires: 02/08/[address] [facility] Comment on above: Expected: 11/09/2023, Expires: 4 Start: 11-09-2023 End: 02-08-2024 CONFIRM BLOOD TYPE CONFIRM BLOOD TYPE Blood Bank STAT Malignant neoplasm of lower lobe of right lung (HCC) Pre-procedure lab exam Expected: 11/09/2023, Expires: 02/08/[address] [facility] Comment on above: Expected: 11/09/2023, Expires: Start: 11-09-2023 End: 11-09-2023 Patient encounter procedure Cardiology Comment on above: Preoperative clearance [Z01.818] Start: 11-09-2023 End: 02-08-2024 PT panel - Platelet poor plasma by Coagulation assay PROTHROMBIN TIME Lab STAT Malignant neoplasm of lower lobe of right lung (HCC) Pre-procedure lab exam Expected: 11/09/2023, Expires: 02/08/[address] [facility] Comment on above: Expected: 11/09/2023, Expires: 4 Start: 11-09-2023 End: 02-08-2024 STAPHYLOCOCCUS AUREUS & MRSA SCREEN, PCR, NASAL STAPHYLOCOCCUS AUREUS & MRSA SCREEN, PCR, NASAL Lab STAT Malignant neoplasm of lower lobe of right lung (HCC) Pre-procedure lab exam Expected: 11/09/2023, Expires: 02/08/2024 [facility] Work Phone: Comment on above: Expected: 11/09/2023, Expires: 4 Start: 11-09-2023 End: 02-08-2024 TYPE AND SCREEN,30 DAY TYPE AND SCREEN,30 DAY Blood Bank STAT Malignant neoplasm of lower lobe of right lung (HCC) Pre-procedure lab exam Expected: 11/09/2023, Expires: 02/08/[address] [facility] Comment on above: Expected: 11/09/2023, Expires: Start: 11-09-2023 End: 02-08-2024 URINALYSIS, DIPSTICK ONLY URINALYSIS, DIPSTICK ONLY Lab STAT Malignant neoplasm of lower lobe of right lung (HCC) Pre-procedure lab exam Expected: 11/09/2023, Expires: 02/08/[address] [facility] Comment on above: Expected: 11/09/2023, Expires: Start: 10-29-2023 Covid-19 Vaccine () Covid-19 Vaccine () [facility] Start: 10-29-2023 Covid-19 Vaccine () Covid-19 Vaccine () [facility] Start: 10-29-2023 Influenza vaccination Influenza Vaccine (#1) [facility] Start: 10-26-2023 End: 10-26-2023 Patient encounter procedure 10/26/2023 2:20 PM EDT Office Visit [facility] [address] [place] [address] Praful Su MD [address] [place] [address] lipids follow up [facility] Comment on above: lipids follow up Start: 10-19-2023 End: 10-19-2023 Patient encounter procedure 10/19/2023 12:00 PM EDT Office Visit Thoracic Clinic [address] [place] [id number] [place] [address] [place] [address] [address] [place] [address] RLL lung cancer Thoracic Clinic Comment on above: RLL lung cancer Start: 10-17-2023 End: 10-17-2023 ambulatory 10/17/2023 11:30 AM EDT Procedure Pulmonary Medicine [address] [place] [address] R[facility] lung cancer Pulmonary Medicine Comment on above: RLL lung cancer Start: 10-16-2023 End: 10-16-2023 Patient encounter procedure 10/16/2023 2:40 PM EDT Office Visit Cardiology [address] [address] Preoperative cardiovascular examination [Z01.810] Cardiology Comment on above: Preoperative cardiovascular examination [Z01.810] Start: 10-03-2023 End: 10-03-2023 FQHC visit new patient 10/03/2023 11:30 AM EDT Visit (SP) Office Hematology/Oncology [address] [address] Kevin Patterson MD [address] [place] [address] New patient Hematology/Oncology Comment on above: New patient Start: 09-21-2023 ANNUAL PCP TEAM CHRONIC DISEASE VISIT ANNUAL PCP TEAM CHRONIC DISEASE VISIT [facility] Start: 09-19-2023 End: 09-19-2023 Admission to same day surgery center 09/19/2023 10:30 AM EDT - 09/19/2023 12:00 PM EDT Surgery [facility] - ENDO [address] [place] [address] Arcadio Hodgson MD [address] [place] [address] BRONCHOSCOPY,RIGID/FLEXI BLE W/ FLUORO,W/ENDOBRONCHIAL ULTRASOUND (EBUS) GUIDED TRANSTRACHEAL/ TRANSBRONCHIAL ASPIRATION/BIOPSY,1 OR 2 MEDIASTINAL AND/OR HILAR LYMPH NODE STATIONS/STRUCTURES [facility] - ENDO Comment on above: BRONCHOSCOPY,RIGID/FLEXIBLE W/ FLUORO,W/ ENDOBRONCHIAL ULTRASOUND (EBUS) GUIDED TRANSTRACHEAL/ TRANSBRONCHIAL ASPIRATION/BIOPSY,1 OR 2 MEDIASTINAL AND/OR HILAR LYMPH NODE STATIONS/STRUCTURES Start: 09-19-2023 End: 09-19-2023 [facility] ebus guided sampl 1/2 node station/strux BRONCHOSCOPY,RIGID/FLEXI BLE W/ FLUORO,W/ENDOBRONCHIAL ULTRASOUND (EBUS) GUIDED TRANSTRACHEAL/ TRANSBRONCHIAL ASPIRATION/BIOPSY,1 OR 2 MEDIASTINAL AND/OR HILAR LYMPH NODE STATIONS/STRUCTURES Lung mass 09/19/2023 10:30 AM EDT [facility] Start: 09-19-2023 Subsequent hospital visit by physician [facility] - ENDO Comment on above: Lung mass [R91.8] Start: 09-15-2023 End: 09-15-2023 Patient encounter procedure 09/15/2023 3:00 PM EDT Office Visit Pulmonary Medicine [address] [address] Thad Garrett MD [address] [place] [address] patient questions Pulmonary Medicine Comment on above: patient questions Start: 09-14-2023 End: 09-14-2023 Patient encounter procedure 09/14/2023 1:30 PM EDT Office Visit Cardiovascular Medicine [facility] [address] [place] [address] [place] [address] [place] [address] clearance Cardiovascular Medicine [facility] Comment on above: clearance Start: 09-04-2023 End: 12-04-2023 Basic metabolic 2000 panel - Serum or Plasma BASIC METABOLIC PANEL Lab Routine Lung mass Expected: 09/04/2023, Expires: 12/04/2023 [facility] Work Phone: Comment on above: Expected: 09/04/2023, Expires: Start: 09-04-2023 End: 12-04-2023 CBC W Auto Differential panel - Blood COMPLETE BLOOD COUNT AND DIFFERENTIAL Lab Routine Lung mass Expected: 09/04/2023, Expires: 12/04/[address] [facility] Comment on above: Expected: 09/04/2023, Expires: Start: 09-01-2023 End: 09-01-2023 Patient encounter procedure 09/01/2023 2:30 PM EDT Office Visit Pulmonary Medicine [address] [address] Thad Garrett MD [address] [place] [address] follow up Pulmonary Medicine Comment on above: follow up Start: 08-28-2023 End: 08-26-2024 CT Chest WO contrast [facility] Work Phone: Comment on above: Expected: 08/28/2023, Expires: Start: 08-28-2023 End: 08-28-2023 Patient encounter procedure 08/28/2023 2:00 PM EDT Appointment Radiology [address] [place] [address] Lung mass [R91.8] Radiology Comment on above: Lung mass [R91.8] Start: 07-19-2023 End: 07-19-2023 Patient encounter procedure 07/19/2023 3:30 PM EDT Office Visit Pulmonary Medicine [address] [address] Thad Garrett MD [address] [place] [address] follow up Pulmonary Medicine Comment on above: follow up Start: 07-04-2023 End: 07-04-2023 ambulatory Pulmonary Medicine Comment on above: SOB (shortness of breath) [R06.02] Start: 06-30-2023 End: 06-30-2023 Patient encounter procedure Hematology/Oncology Comment on above: new consult / requested by dr rios by date and time / prostate cancer / infrahilar pulmonary mass that is malignant Start: 06-20-2023 End: 06-20-2023 [facility] ebus guided sampl 1/2 node station/strux BRONCHOSCOPY,RIGID/FLEXI BLE W/ FLUORO,W/ENDOBRONCHIAL ULTRASOUND (EBUS) GUIDED TRANSTRACHEAL/ TRANSBRONCHIAL ASPIRATION/BIOPSY,1 OR 2 MEDIASTINAL AND/OR HILAR LYMPH NODE STATIONS/STRUCTURES Lung mass 06/20/2023 12:00 PM EDT [facility] Start: 06-16-2023 Covid-19 Vaccine ( season) Covid-19 Vaccine () [facility] Start: 06-12-2023 End: 09-11-2023 CBC W Auto Differential panel - Blood COMPLETE BLOOD COUNT AND DIFFERENTIAL Lab Routine Lung mass Expected: 06/12/2023, Expires: 09/11/2023 [facility] Work Phone: Comment on above: Expected: 06/12/2023, Expires: Start: 04-27-2023 End: 07-27-2023 Basic metabolic 2000 panel - Serum or Plasma BASIC METABOLIC PNL Lab Routine Essential hypertension Expected: 04/27/2023, Expires: 07/27/2023 [facility] Work Phone: Comment on above: Expected: 04/27/2023, Expires: Start: 04-27-2023 End: 07-27-2023 Hemoglobin A1c in Blood HGB A1C Lab Routine Glucose intolerance (impaired glucose tolerance) Expected: 04/27/2023, Expires: 07/27/2023 [facility] Work Phone: Comment on above: Expected: 04/27/2023, Expires: Start: 04-27-2023 End: 07-27-2023 Lipid 1996 panel - Serum or Plasma LIPID PANEL BASIC Lab Routine Mixed hyperlipidemia Expected: 04/27/2023, Expires: 07/27/2023 [facility] Work Phone: Comment on above: Expected: 04/27/2023, Expires: Start: 04-25-2023 End: 07-25-2023 CREATININE BLD CREATININE BLD Lab Routine Abdominal aortic aneurysm (AAA) without rupture, unspecified part (HCC) Expected: 04/25/2023, Expires: 07/25/2023 [facility] Work Phone: Comment on above: Expected: 04/25/2023, Expires: Start: 04-15-2023 End: 10-14-2023 US ABD AORTA COMPLETE VAS LAB US ABD AORTA COMPLETE VAS LAB Vascular Lab Routine Infrarenal abdominal aortic aneurysm (AAA) without rupture (HCC) Expected: 04/15/2023, Expires: 10/14/2023 [facility] Work Phone: Comment on above: Expected: 04/15/2023, Expires: 4 Start: 03-30-2023 BP CONTROLLED (<130/80) BP CONTROLLED (<130/80) [facility] Start: 03-16-2023 COLORECTAL CANCER SCREENING COLORECTAL CANCER SCREENING [facility] Start: 03-16-2023 FECAL OCCULT BLOOD FECAL OCCULT BLOOD [facility] Start: 03-16-2023 Screening for malignant neoplasm of colon [facility] Start: 03-07-2023 ANNUAL PCP TEAM CHRONIC DISEASE VISIT ANNUAL PCP TEAM CHRONIC DISEASE VISIT [facility] Start: 03-07-2023 BP CONTROLLED (<130/80) BP CONTROLLED (<130/80) [facility] Start: 02-27-2023 Advance Directive Discussion Advance Directive Discussion [facility] Start: 02-27-2023 Behavioral Health Screening Behavioral Health Screening [facility] Start: 02-27-2023 Depression Assessment Depression Assessment [facility] Start: 10-28-2022 Covid-19 Vaccine () Covid-19 Vaccine () [facility] Start: 10-28-2022 Influenza vaccination [facility] Start: 08-11-2022 ANNUAL PCP TEAM CHRONIC DISEASE VISIT ANNUAL PCP TEAM CHRONIC DISEASE VISIT [facility] Start: 04-27-2022 COVID-19 VACCINE (5 - Pfizer series) COVID-19 VACCINE (5 - Pfizer series) [facility] Start: 03-07-2022 End: 05-07-2022 Basic metabolic 2000 panel - Serum or Plasma BASIC METABOLIC PNL Lab Routine Essential hypertension Expected: 03/07/2022, Expires: 05/07/2022 [facility] Work Phone: Comment on above: Expected: 03/07/2022, Expires: 3 Start: 03-07-2022 End: 05-07-2022 Hemoglobin A1c in Blood HGB A1C Lab Routine Glucose intolerance (impaired glucose tolerance) Expected: 03/07/2022, Expires: 05/07/2022 [facility] Work Phone: Comment on above: Expected: 03/07/2022, Expires: 3 Start: 03-07-2022 End: 05-07-2022 Lipid 1996 panel - Serum or Plasma LIPID PANEL BASIC Lab Routine Essential hypertension Expected: 03/07/2022, Expires: 05/07/2022 [facility] Work Phone: Comment on above: Expected: 03/07/2022, Expires: 3 Start: 02-27-2022 ADVANCE DIRECTIVE DISCUSSION ADVANCE DIRECTIVE DISCUSSION [facility] Start: 02-27-2022 DEPRESSION ASSESSMENT DEPRESSION ASSESSMENT [facility] Start: 02-18-2022 COLORECTAL CANCER SCREENING COLORECTAL CANCER SCREENING [facility] Start: 02-18-2022 FECAL OCCULT BLOOD FECAL OCCULT BLOOD [facility] Start: 02-08-2022 Adult depression screening assessment DEPRESSION SCREENING [facility] Start: 02-08-2022 ANNUAL PCP TEAM CHRONIC DISEASE VISIT ANNUAL PCP TEAM CHRONIC DISEASE VISIT [facility] Start: 02-08-2022 BP CONTROLLED (<130/80) BP CONTROLLED (<130/80) [facility] Start: 10-28-2021 Influenza vaccination INFLUENZA (#1) [facility] Start: 09-15-2021 Urine microalbumin profile [facility] Start: 08-11-2021 End: 10-11-2021 Basic metabolic 2000 panel - Serum or Plasma BASIC METABOLIC PNL Lab Routine Essential hypertension Expected: 08/11/2021, Expires: 10/11/2021 [facility] Work Phone: Comment on above: Expected: 08/11/2021, Expires: 2 Start: 06-05-2021 COVID-19 VACCINE (4 - Booster for Pfizer series) COVID-19 VACCINE (4 - Booster for Pfizer series) [facility] Start: 04-01-2021 COVID-19 VACCINE (4 - Booster for Pfizer series) COVID-19 VACCINE (4 - Booster for Pfizer series) [facility] Start: 02-27-2021 ADVANCE DIRECTIVE DISCUSSION ADVANCE DIRECTIVE DISCUSSION [facility] Start: 02-27-2021 DEPRESSION ASSESSMENT DEPRESSION ASSESSMENT [facility] Start: 12-31-2020 BP CONTROLLED (<130/80) BP CONTROLLED (<130/80) [facility] Start: 2012 RSV Vaccine (1 - 1-dose 60+ series) RSV Vaccine (1 - 1-dose 60+ series) [facility] Start: 2012 RSV Vaccine (1 - Risk 60-74 years 1-dose series) RSV Vaccine (1 - Risk 60-74 years 1-dose series) [facility] Start: 2002 SHINGRIX VACCINE (1 of 2) SHINGRIX VACCINE (1 of 2) [facility] Start: 1997 COLOGUARD (FIT-DNA) COLOGUARD (FIT-DNA) [facility] Start: 1997 Colonoscopy COLONOSCOPY [facility] Start: [address] COLONOGRAPHY [facility] Start: 1997 Screening for malignant neoplasm of colon [facility] Start: 1997 SIGMOIDOSCOPY SIGMOIDOSCOPY [facility] Start: 1982 Zoledronic acid therapy Alpha-1 Antitrypsin Deficiency Screening [facility] Start: 07-09-1971 SHINGRIX VACCINE (1 of 2) SHINGRIX VACCINE (1 of 2) [facility] Start: 1970 Anxiety Screening Anxiety Screening [facility] Start: 1970 Depression Screening Depression Screening [facility] ebus guided sampl 1/2 node station/strux BRONCHOSCOPY,RIGID/FLEXI BLE W/ FLUORO,W/ENDOBRONCHIAL ULTRASOUND (EBUS) GUIDED TRANSTRACHEAL/ TRANSBRONCHIAL ASPIRATION/BIOPSY,1 OR 2 MEDIASTINAL AND/OR HILAR LYMPH NODE STATIONS/STRUCTURES Lung mass [facility] End: 01-17-2025 CT Chest W contrast IV CT CHEST W IVCON Radiology Routine Malignant neoplasm of unspecified part of unspecified bronchus or lung (HCC) 1 Occurrences starting 12/19/2023 until 01/17/2025 [facility] Work Phone: Comment on above: 1 Occurrences starting 12/19/2023 until 01/17/2025 CT Chest W contrast IV CT CHEST W IVCON Radiology Routine Malignant neoplasm of unspecified part of unspecified bronchus or lung (HCC) 05/08/2024 2:21 PM EDT [facility] Work Phone: End: 09-19-2025 CT Chest W contrast IV CT CHEST W IVCON Radiology Routine Neoplasm of lung 1 Occurrences starting 08/20/2024 until 09/19/2025 [facility] Work Phone: Comment on above: 1 Occurrences starting 08/20/2024 until 09/19/2025 End: 12-28-2024 CT Chest WO contrast CT CHEST WO IVCON Radiology Routine Squamous cell carcinoma of lung, unspecified laterality (HCC) 1 Occurrences starting 11/29/2023 until 12/28/2024 [facility] Work Phone: Comment on above: 1 Occurrences starting 11/29/2023 until 12/28/2024 CT Chest WO contrast CT CHEST WO IVCON Radiology Routine Squamous cell carcinoma of lung, unspecified laterality (HCC) 12/09/2023 9:13 AM EDT [facility] Work Phone: End: 05-24-2024 CTA Abdominal, Pelvis and Lower extremity vessels W contrast IV CTA ABD/PEL LOWER EXTREM W IVCON Radiology Routine Abdominal aortic aneurysm (AAA) without rupture, unspecified part (HCC) 1 Occurrences starting 04/25/2023 until 05/24/2024 [facility] Work Phone: Comment on above: 1 Occurrences starting 04/25/2023 until 05/24/2024 End: 05-24-2024 CTA Chest vessels WO and W contrast IV CTA CHEST (NONGATED) WO/W IVCON Radiology Routine Encounter for other preprocedural examination 1 Occurrences starting 04/25/2023 until 05/24/2024 [facility] Work Phone: Comment on above: 1 Occurrences starting 04/25/2023 until 05/24/2024 End: 04-06-2023 Dup-scan artl lola abdl/pel/scrot&/rpr orgn lmt US DOPPLER AORTA Radiology Routine Abdominal aortic aneurysm (AAA) without rupture, unspecified part 1 Occurrences starting 03/07/2022 until 04/06/2023 [facility] Work Phone: Comment on above: 1 Occurrences starting 03/07/2022 until 04/06/2023 End: 06-11-2024 ECG COMPLETE ECG COMPLETE ECG Routine Lung mass 1 Occurrences starting 06/12/2023 until 06/11/2024 [facility] Work Phone: Comment on above: 1 Occurrences starting 06/12/2023 until 06/11/2024 End: 08-30-2025 ECG COMPLETE ECG COMPLETE ECG STAT Malignant neoplasm of lower lobe of right lung (HCC) Pre-procedure lab exam 1 Occurrences starting 10/27/2023 until 10/26/[address] [facility] Comment on above: 1 Occurrences starting 10/27/2023 until 10/26/2024 End: 09-13-2024 Echocardiography ECHO Cardiology Routine Preoperative cardiovascular examination Primary hypertension 1 Occurrences starting 09/14/2023 until 09/13/2024 [facility] Work Phone: Comment on above: 1 Occurrences starting 09/14/2023 until 09/13/2024 Hemoglobin.gastroint estin al.lower [Presence] in Stool by Immunoassay FECAL OCCULT BLOOD TEST Lab Routine Screening for colon cancer Ordered: 03/07/2022 [facility] Work Phone: Comment on above: Ordered: 03/07/2022 Hemoglobin.gastroint estin al.lower [Presence] in Stool by Immunoassay FECAL OCCULT BLOOD TEST Lab Routine Screening for colon cancer Ordered: 04/27/2023 [facility] Work Phone: Comment on above: Ordered: 04/27/2023 Hemoglobin.gastroint estin al.lower [Presence] in Stool by Immunoassay IMMUNOCHEMICAL FECAL OCCULT BLOOD TEST Lab Routine Screening for colon cancer Ordered: 04/25/[address] [facility] Comment on above: Ordered: 04/25/2024 End: 07-07-2024 LUNG DIFFUSION CAPACITY (DLCO) LUNG DIFFUSION CAPACITY (DLCO) PFT Routine SOB (shortness of breath) 1 Occurrences starting 06/08/2023 until 07/07/2024 [facility] Work Phone: Comment on above: 1 Occurrences starting 06/08/2023 until 07/07/2024 End: 02-06-2025 LUNG DIFFUSION CAPACITY (DLCO) LUNG DIFFUSION CAPACITY (DLCO) PFT Routine Chronic obstructive pulmonary disease, unspecified COPD type (HCC) 1 Occurrences starting 01/08/2024 until 02/06/2025 [facility] Work Phone: Comment on above: 1 Occurrences starting 01/08/2024 until 02/06/2025 LUNG DIFFUSION CAPAC ITY (DLCO) LUNG DIFFUSION CAPACITY (DLCO) PFT Routine Chronic obstructive pulmonary disease, unspecified COPD type (HCC) 05/08/2024 12:45 PM EDT [facility] Work Phone: End: 11-01-2024 MR Brain WO and W contrast IV MRI BRAIN WO/W IVCON Radiology Routine Squamous cell carcinoma of lung, unspecified laterality (HCC) Malignant neoplasm of lung, unspecified laterality, unspecified part of lung (HCC) 1 Occurrences starting 10/03/2023 until 11/01/2024 [facility] Work Phone: Comment on above: 1 Occurrences starting 10/03/2023 until 11/01/2024 End: 11-26-2024 NM Heart Perfusion W multiple states of exercise NM CARDIAC PERF STRESS/EXERCISE Radiology Routine Malignant neoplasm of lower lobe of right lung (HCC) Pre-procedure lab exam Encounter for other preprocedural examination 1 Occurrences starting 10/27/2023 until 11/26/[address] [facility] Comment on above: 1 Occurrences starting 10/27/2023 until 11/26/2024 End: 07-07-2024 PET+CT Guidance for localization of tumor of 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-- W 18F-FDG IV NM PET/CT SKULL-THIGH INITIAL Radiology Routine Lung nodules 1 Occurrences starting 06/08/2023 until 07/07/2024 [facility] Work Phone: Comment on above: 1 Occurrences starting 06/08/2023 until 07/07/2024 PET+CT Guidance for localization of tumor of 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-- W 18F-FDG IV NM PET/CT SKULL-THIGH INITIAL Radiology Routine Lung nodules 06/19/2023 2:31 PM EDT [facility] Work Phone: End: 11-30-2025 PET+CT Guidance for localization of tumor of 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-- W 18F-FDG IV NM PET/CT SKULL-THIGH INITIAL Radiology Routine Squamous cell carcinoma of lung, unspecified laterality (HCC) 1 Occurrences starting 10/31/2024 until 11/30/2025 [facility] Work Phone: Comment on above: 1 Occurrences starting 10/31/2024 until 11/30/2025 End: 04-12-2023 Prostate specific Ag [Mass/volume] in Serum or Plasma PSA/PROSTSPECAG DIAG Lab Routine Malignant neoplasm of prostate (HCC) Every 6 months for 4 Occurrences starting 04/12/2022 until 04/12/2023 [facility] Work Phone: Comment on above: Every 6 months for 4 Occurrences startin g 04/12/2022 until 04/12/2023 End: 11-09-2024 SIX MINUTE WALK SIX MINUTE WALK PFT Routine Malignant neoplasm of lower lobe of right lung (HCC) Lung nodule 1 Occurrences starting 10/11/2023 until 11/09/2024 [facility] Work Phone: Comment on above: 1 Occurrences starting 10/11/2023 until 11/09/2024 End: 07-07-2024 SPIROMETRY WITH DILATOR IF OBSTRUCTED SPIROMETRY WITH DILATOR IF OBSTRUCTED PFT Routine SOB (shortness of breath) 1 Occurrences starting 06/08/2023 until 07/07/2024 [facility] Work Phone: Comment on above: 1 Occurrences starting 06/08/2023 until 07/07/2024 End: 02-06-2025 SPIROMETRY WITH DILATOR IF OBSTRUCTED SPIROMETRY WITH DILATOR IF OBSTRUCTED PFT Routine Chronic obstructive pulmonary disease, unspecified COPD type (HCC) 1 Occurrences starting 01/08/2024 until 02/06/[address] [facility] Comment on above: 1 Occurrences starting 01/08/2024 until 02/06/2025 SPIROMETRY WITH DILA TOR IF OBSTRUCTED SPIROMETRY WITH DILATOR IF OBSTRUCTED PFT Routine Chronic obstructive pulmonary disease, unspecified COPD type (HCC) 05/08/2024 12:45 PM EDT [facility] Work Phone: Thoracoscopy w/lobec ish single lobe ROBOTIC THORACOSCOPY; LOBECTOMY, TOTAL OR SEGMENTAL Malignant neoplasm of lower lobe of right lung (HCC) Pre-procedure lab exam [facility] Thoracoscopy w/lobeeliot ish single lobe ROBOTIC THORACOSCOPY; LOBECTOMY, TOTAL OR SEGMENTAL Hydropneumothorax Pre-procedure lab exam [facility] End: 03-16-2023 US ABD AORTA COMPLETE VAS LAB US ABD AORTA COMPLETE VAS LAB Vascular Lab Routine Abdominal aortic aneurysm (AAA) without rupture, unspecified part 1 Occurrences starting 03/16/2022 until 03/16/2023 [facility] Work Phone: Comment on above: 1 Occurrences starting 03/16/2022 until 03/16/2023 End: 03-30-2023 US ABD AORTA COMPLETE VAS LAB US ABD AORTA COMPLETE VAS LAB Vascular Lab Routine Abdominal aortic aneurysm (AAA) without rupture, unspecified part 1 Occurrences starting 03/30/2022 until 03/30/2023 [facility] Work Phone: Comment on above: 1 Occurrences starting 03/30/2022 until 03/30/2023 End: 06-05-2024 US Abdominal Aorta US ABD AORTA COMPLETE VAS LAB Vascular Lab Routine Abdominal aortic aneurysm (AAA) without rupture, unspecified part (HCC) 1 Occurrences starting 06/06/2023 until 06/05/2024 [facility] Work Phone: Comment on above: 1 Occurrences starting 06/06/2023 until 06/05/2024 End: 04-06-2023 Us retroperitoneal real time w/image limited US ABD AORTA Radiology Routine Abdominal aortic aneurysm (AAA) without rupture, unspecified part 1 Occurrences starting 03/07/2022 until 04/06/2023 [facility] Work Phone: Comment on above: 1 Occurrences starting 03/07/2022 until 04/06/2023 End: 11-26-2024 XR Chest PA and Lateral XR CHEST 2V FRONTAL/LAT Radiology STAT Malignant neoplasm of lower lobe of right lung (HCC) Pre-procedure lab exam 1 Occurrences starting 10/27/2023 until 11/26/[address] [facility] Comment on above: 1 Occurrences starting 10/27/2023 until 11/26/2024 End: 12-26-2024 XR Chest PA and Lateral XR CHEST 2V FRONTAL/LAT Radiology Routine Malignant neoplasm of lower lobe of right lung (HCC) 1 Occurrences starting 11/27/2023 until 12/26/2024 [facility] Work Phone: Comment on above: 1 Occurrences starting 11/27/2023 until 12/26/2024 End: 03-02-2025 XR Chest PA and Lateral XR CHEST 2V FRONTAL/LAT Radiology Routine Postprocedural pneumothorax 1 Occurrences starting 02/01/2024 until 03/02/2025 [facility] Work Phone: Comment on above: 1 Occurrences starting 02/01/2024 until 03/02/2025 XR Chest PA and Lateral XR CHEST 2V FRONTAL/LAT Radiology Routine Postprocedural pneumothorax 02/01/2024 12:36 PM EST [facility] End: 06-25-2025 XR Chest PA and Lateral XR CHEST 2V FRONTAL/LAT Radiology STAT Hydropneumothorax Pre-procedure lab exam 1 Occurrences starting 05/25/2024 until 06/25/2025 [facility] Work Phone: Comment on above: 1 Occurrences starting 05/25/2024 until 06/25/2025 End: 07-31-2025 XR Chest PA and Lateral XR CHEST 2V FRONTAL/LAT Radiology Routine Bronchopleural fistula (HCC) 1 Occurrences starting 07/01/2024 until 07/31/2025 [facility] Work Phone: Comment on above: 1 Occurrences starting 07/01/2024 until 07/31/2025 End: 08-07-2025 XR Chest PA and Lateral XR CHEST 2V FRONTAL/LAT Radiology Routine Bronchopleural fistula (HCC) Cancer of overlapping sites of right lung (HCC) 1 Occurrences starting 2024 until 08/07/2025 [facility] Work Phone: Comment on above: 1 Occurrences starting 2024 until 08/07/2025 XR Chest PA and Lateral XR CHEST 2V FRONTAL/LAT Radiology Routine Bronchopleural fistula (HCC) Cancer of overlapping sites of right lung (HCC) 08/19/2024 11:04 AM EDT [facility] Work Phone: [facility] GI Immunizations Immunization Date Immunization Notes Care Provider Dev [facility] 02-06-2024 influenza virus vaccine, unspecified formulation Praful Su MD Work Phone: [facility] 02-14-2023 influenza (HD-IIV4) vaccine, age 65+ yr, high dose, quadrivalent, PF (FLUZONE HIGH-DOSE) Cristopher Carrera MA [facility] 02-14-2023 influenza virus vaccine, unspecified formulation Thad Garrett MD Work Phone: [facility] 12-28-2021 influenza virus vaccine, unspecified formulation Don Lara MD Work Phone: [facility] 02-08-2021 influenza, high-dose , quadrivalent vaccine (FLUZONE HIGH DOSE QUADRIVALENT) Negrito Neely MD Work Phone: [facility] 06-17-2020 COVID-19 vaccine, ag e 12+ yr (PFIZER-BIONTECH - PURPLE TOP) Negrito Neely MD Work Phone: [facility] Work Phone: 05-26-2020 COVID-19 vaccine, ag e 12+ yr (PFIZER-BIONTECH - PURPLE TOP) Negrito Neely MD Work Phone: [facility] Work Phone: 01-01-2020 influenza, high-dose , quadrivalent vaccine (FLUZONE HIGH DOSE QUADRIVALENT) Negrito Neely MD Work Phone: [facility] 12-27-2018 influenza, high dose seasonal, preservative-free Negrito Neely MD Work Phone: [facility] 12-27-2018 pneumococcal polysaccharide vaccine, 23 valent Negrito Neely MD Work Phone: [facility] 10-04-2017 pneumococcal conjuga te vaccine, 13 valent Negrito Neely MD Work Phone: [facility] 04-06-2017 influenza, injectabl e, quadrivalent, contains preservative Negrito Neely MD Work Phone: [facility] 11-18-2015 influenza, seasonal, injectable Negrito Neely MD Work Phone: [facility] 03-25-2015 influenza, seasonal, injectable Negrito Neely MD Work Phone: [facility] 03-10-2014 influenza, seasonal, injectable Negrito Neely MD Work Phone: [facility] 03-08-2013 influenza virus vaccine, unspecified formulation Negrito Neely MD Work Phone: [facility] 09-16-2011 tetanus toxoid, redu david diphtheria toxoid, and acellular pertussis vaccine, adsorbed Negrito Neely MD Work Phone: [facility] 02-14-2011 influenza virus vaccine, unspecified formulation Negrito Neely MD Work Phone: [facility] Payers Date Payer Category Payer Self-pay 2020 Medicare [employer] MED[employer]ARE [employer] MEDICARE PPO [id number] 2020-Present [phone] [place] [address] [id number] 2019 Medicare [id number] 2019 Medicare (Managed Care) HU[employer] ANGEL [id number] 2019 Medicare [id number] Unknown [id number] Unknown [id number] Social History Date Type Detail Facility Start: 06-23-2010 End: 03-07-2022 Tobacco smoking status AKIS Smokes tobacco daily [facility] Start: 07-28-1981 End: 07-28-2021 History of tobacco use Cigarette Smoker [facility] Start: 06-23-2010 End: 09-20-2022 Cigarettes smoked current (pack per day) - Reported 0.[address] [facility] Work Phone: Start: 06-23-2010 End: 10-19-2023 Tobacco use and exposure Smokeless tobacco non-user [facility] Start: 02-08-2021 End: 09-01-2023 Alcohol intake Current drinker of alcohol (finding) [facility] Start: 1950 Sex Assigned At Not on file C [facility] Start: 05-15-2021 End: 12-06-2021 Exposure to SARS-CoV-2 (event) Not sure [facility] Start: 03-30-2022 End: 10-19-2023 Tobacco smoking status NHIS Ex-smoker [facility] Start: 07-28-1981 End: 07-28-2021 History of tobacco use Current smoker [facility] Start: 09-20-2022 End: 10-25-2024 Tobacco use panel [facility] Work Phone: Start: 01-29-2012 Adult Depression Screening Assessment [address] [facility] Work Phone: History of tobacco use Passive smoker [facility] Start: 09-11-2023 End: 10-24-2024 Alcohol intake Ex-drinker (finding) [facility] Has the [employer], or water company threatened to shut off services in your home in past 12Mo No [facility] Work Phone: (I/We) worried wheth er (my/our) food would run out before (I/we) got money to buy more. Never true [facility] Medical Equipment Procedure Code Equipment Code Equipment Origin al Text Equipment Identifier Dates Hemoblast Bellow s And 1 Ea Short 10 Cm Cannula - [id number] Start: 11-15-2023 Goals Date Patient Goal Desired Activity /State Personal health goal Personal health goal Functional Status Date Assessment Result Facility 06-23-2024 Are you deaf, or do you have serious difficulty hearing No 06/23/2024 1:57 PM EDT Diogenes Nails RN No [facility] 06-23-2024 Are you blind, or do you have serious difficulty seeing, even when wearing glasses No 06/23/2024 1:57 PM EDT Diogenes Nails RN No [facility] 06-23-2024 Do you have serious difficulty walking or climbing stairs No 06/23/2024 1:57 PM EDT Diogenes Nails RN No [facility] 06-23-2024 Do you have difficul ty dressing or bathing No 06/23/2024 1:57 PM EDT Diogenes Nails RN No [facility] 06-23-2024 Because of a physica l, mental, or emotional condition, do you have difficulty doing errands alone such as visiting a physician's office or shopping No 06/23/2024 1:57 PM EDT Diogenes Nails RN No [facility] 05-12-2024 Are you deaf, or do you have serious difficulty hearing Yes 05/12/2024 2:11 PM EDT Shaun Nance RN Yes [facility] 05-12-2024 Are you blind, or do you have serious difficulty seeing, even when wearing glasses No 05/12/2024 2:11 PM EDShaun Degroot RN No [facility] 05-12-2024 Do you have serious difficulty walking or climbing stairs No 05/12/2024 2:11 PM PENGT Shaun Nance RN No [facility] 05-12-2024 Do you have difficul ty dressing or bathing No 05/12/2024 2:11 PM Shaun Jones RN No [facility] 05-12-2024 Because of a physica l, mental, or emotional condition, do you have difficulty doing errands alone such as visiting a physician's office or shopping No 05/12/2024 2:11 PM EDT Shaun Nance RN No [facility] 11-19-2023 Are you deaf, or do you have serious difficulty hearing No 11/19/2023 3:36 PM EDT Monica Auguste RN No [facility] 11-19-2023 Are you blind, or do you have serious difficulty seeing, even when wearing glasses No 11/19/2023 3:36 PM EDT Monica Auguste RN No [facility] 11-19-2023 Do you have serious difficulty walking or climbing stairs No 11/19/2023 3:36 PM EDT Monica Auguste RN No [facility] 11-19-2023 Do you have difficul ty dressing or bathing No 11/19/2023 3:36 PM EDT Monica Auguste RN No [facility] 11-19-2023 Because of a physica l, mental, or emotional condition, do you have difficulty doing errands alone such as visiting a physician's office or shopping No 11/19/2023 3:36 PM EDT Monica Auguste RN No [facility] Mental Status Date Assessment Result Facility 06-23-2024 Because of a physica l, mental, or emotional condition, do you have serious difficulty concentrating, remembering, or making decisions No 06/23/2024 1:57 PM EDT Diogenes Nails RN No [facility] 05-12-2024 Because of a physica l, mental, or emotional condition, do you have serious difficulty concentrating, remembering, or making decisions No 05/12/2024 2:11 PM EDT Shaun Nance RN No [facility] 11-19-2023 Because of a physica l, mental, or emotional condition, do you have serious difficulty concentrating, remembering, or making decisions No 11/19/2023 3:36 PM EDT Monica Auguste RN No [facility] Clinical Notes 09-15-2011 to 11-25-2024 Kurt Pereira MD - 11/04/2024 5:14 PM Radha Arreola APRN.CNP - 10/31/2024 3:32 PM Yunior Monsalve - 10/25/2024 1:24 PM Praful Miller MD - 10/24/2024 2:29 PM EDTPatient Instructions Note Date & Type Note Facility 11-25-2024 Note [facility] 11-22-2024 Note [facility] 11-21-2024 Note HNO ID: [id number] Author: DEN GARCIA TECHNOLOGIST Service: Radiology Author Type: Technologist Type: Progress Notes Filed: 11/21/2024 12:35 Note Text: Radiology Service Progress Note PATIENT NAME: Stevie Sanchez DATE OF SERVICE: November 21, 2024 TIME: [...] PATIENT PRESENTS WITH AN IMPLANTABLE OR ATTACHED BURRER MARKER AXLE: No RADIOLOGY DEPARTMENT: CT; Exam(s) Completed: Chest. Anesthesia: No PERIPHERAL IV DATA: Site assessment: Clean,Dry and Intact, Site disposition Discontinued SIGNED BY: TECHNOLOGIST Bettye November 21, 2024 12:28 PM [facility] 11-19-2024 Note [facility] 11-05-2024 Note HNO ID: [id number] Author: MALIA KOENIG RN Service: Care Management Author Type: Registered Nurse Type: Care Mgt Progress Note Filed: 11/05/2024 14:38 Note Text: CARE MANAGEMENT DISCHARGE NOTE SERVICE DATE: November 05, 2024 SERVICE TIME: 2:36 PM Admission Date: 10/24/2024 LOS: 12 days Discharge Arrangement Discharge Arrangement: Assisted Facility Was an expedited discharge program used?: No Services Arranged SNF Placement Provider Name: [facility] Caregiver Assessment Caregiver is ready, willing and able to meet the patient's needs as recommended by the inter-professional team: Yes Name of Caregiver: [facility] Transportation Arrangements Transportation Arrangements: Ambulance Transportation Agency and Phone #:: [facility] [phone] Date of Trip: 11/05/24 Time of Trip: 1530 Type of Service: BLS Non-emergency Is Patient Medicaid Pending?: No Was transportation financial coverage discussed with family?: 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 confirmed they are able to meet CoPAT needs SNF updated with time and orders RN provided number to call report CM updated patient at bedside and sister via phone MMT set for 3:30 per family request. Aware of potential cost associated with medical transport SIGNATURE: Malia Koenig RN PATIENT NAME: Stevie Sanchez DATE: November 05, 2024 TIME: 2:36 PM [facility] 11-05-2024 Note HNO ID: [id number] Author: MALIA KOENIG RN Service: Care Management Author Type: Registered Nurse Type: Care Mgt Progress Note Filed: 11/05/2024 09:58 Note Text: CARE MANAGEMENT PROGRESS NOTE SERVICE DATE: 11/05/2024 SERVICE TIME: 9:58 AM LOS: 12 days IMM Follow Up Copy Given: Yes Copy given to:: Patient Method: In Person SIGNATURE: Malia Koenig RN PATIENT NAME: Stevie Sanchez DATE: November 05, 2024 TIME: 9:58 AM [facility] 11-04-2024 Note HNO ID: [id number] Author: KURT PEREIRA MD Service: ? Author Type: Physician Type: Progress Notes Filed: 11/04/2024 17:15 Note Text: [facility] Outpatient Parenteral Antimicrobial Therapy (OPAT) Start Form Patient Info Patient MRN Patient Name Address Date of [id number] Stevie Sanchez [address] [facility] [id number] 1950 Start Date 11/04/2024 Physician Group [facility] Diagnosis Group Diagnosis [...] on an intermittent IV antibiotic dosing schedule: [facility] method: 1) Administer normal saline 5ml IV to port. 2) Infuse IV antibiotic as ordered. 3) Administer normal saline 5ml IV to port. Labs may be drawn on Monday if Monday is a holiday. Stevie Sanchez is a 74 year old male with tachycardia and leukocytosis, CT of the chest revealed thick-walled right upper lobe cavitary mass is noted with an associated air-fluid level. Differential includes primary lung abscess, could potentially be from aspiration and poor dentition versus malignancy. Plan: BAL cultures w E coli Suspect superinfected cavitary mass which could have been malignant. Plan on performing bronchoscopy/EBUS at [facility] on 10/29. Continue unasyn Follow up Provider Follow up date/time Appointment type Kurt Pereira MD 12/03/2024 In-person Provider Monitoring Treatment Course Kurt Pereira MD Address [address] [place] [address], [address], [place] [address] Prescribing Provider's signature - electronically signed by Kurt Pereira MD on 11/04/24 at 5:15 PM [facility] 11-04-2024 History of Present illness Narrative Images from the original note were not included. [facility] Outpatient Parenteral Antimicrobial Therapy (OPAT) Start Form Patient Info Patient MRN Patient Name Address Date of [id number] Stevie Sanchez [address] [facility] [id number] 1950 Start Date 11/04/2024 Physician Group [facility] Diagnosis Group Diagnosis [...] on an intermittent IV antibiotic dosing schedule: [facility] method: 1) Administer normal saline 5ml IV to port. 2) Infuse IV antibiotic as ordered. 3) Administer normal saline 5ml IV to port. Labs may be drawn on Monday if Monday is a holiday. Stevie Sanchez is a 74 year old male with tachycardia and leukocytosis, CT of the chest revealed thick-walled right upper lobe cavitary mass is noted with an associated air-fluid level. Differential includes primary lung abscess, could potentially be from aspiration and poor dentition versus malignancy. Plan: BAL cultures w E coli Suspect superinfected cavitary mass which could have been malignant. Plan on performing bronchoscopy/EBUS at [facility] on 10/29. Continue unasyn Follow up Provider Follow up date/time Appointment type Kurt Pereira MD 12/03/2024 In-person Provider Monitoring Treatment Course Kurt Pereira MD Address [address] [place] [address], [place] [address] Prescribing Provider's signature - electronically signed by Kurt Pereira MD on 11/04/24 at 5:15 PM documented in this encounter [facility] 11-04-2024 Note HNO ID: [id number] Author: PATRICIA SLOAN MD Service: Care Management [...] true and an accurate reflection of Stevie Sanchez's needs. I certify that following the inpatient [...] Attending Physician: Patricia Sloan MD SIGNATURE: Malia Koenig RN PATIENT NAME: Stevie Sanchez DATE: November 04, 2024 TIME: 3:54 PM [facility] 11-04-2024 Note HNO ID: [id number] Author: RAMESH CARDOZO RN Service: Radiology Author Type: Registered Nurse Type: Procedures Filed: 11/04/2024 15:27 Note Text: PICC NURSE INSERTION NOTE DATE OF PROCEDURE: November 04, 2024 TIME OF PROCEDURE: 1445 ORDERING PHYSICIAN: Dr Sloan INFORMED CONSENT: Obtained per hospital policy. INDICATION FOR LINE PLACEMENT: COPAT CONDITION OF LINE PLACEMENT: Sterile PRIMARY PROCEDURALIST: Dejah Sanchez ATHLETICS DIRECTOR: Ramesh Cardozo RN PRE-PROCEDURE REVIEW ALLERGIES No [...] nurse for hospitalized patients). CATHETER PLACEMENT Brand: BARD Lot: [id number] Number of Lumens: 1 Type of PICC: Power Injectable PICC Lumen Size: 4 Eritrean PLACEMENT TECHNIQUE Lidocaine: Yes, Lidocaine 1% Volume [...] Patient Education Materials: Placed in chart The [facility] Central Line Insertion checklist was utilized during this procedure. QUESTIONS or PROBLEMS: If you have any questions, please call the [facility] Interventional Radiology department at [phone], option #3. SIGNATURE: Ramesh Cardozo RN PATIENT NAME: Stevie Sanchez DATE: November 04, 2024 TIME: 3:23 PM PAGER/CONTACT PHONE: [facility] 11-04-2024 Note HNO ID: [id number] Author: MALIA KOENIG RN Service: Care Management Author Type: Registered Nurse Type: Care Mgt Progress Note Filed: 11/04/2024 14:14 Note Text: CARE MANAGEMENT PROGRESS NOTE SERVICE DATE: 11/04/2024 SERVICE TIME: 10:27 AM LOS: 11 days Needs Prior to Discharge: IV Antibiotics, Other: See Comment, Discharge Transportation [place] of Choice Given: Yes Level of Care Discussed: Assisted Facility Provider List: Assisted Facility Provider list within the patient's requested geographic area shared with the patient/family: Yes within: 15 miles of zip code: [address] Metrics: Functional Status, Medication Reconciliation CM met with patient, nurse and MD at bedside to confirm DC plan PT/OR rec SNF Plan for CoPAT/PICC Patient requesting referral to [facility] Patient gives permission to speak with sister for alternative choices if needed CM called sister and updated. SNF choice emailed for additional SNF choices Will need final CoPAT/PICC/PRECERT/HENS prior to DC 11:15- CM received additional SNF choices from sister Requesting referrals to [facility], [facility], and [facility] Referrals sent 14:13- CM confirmed with sister SNF response Aware [facility] unable to accept. Agreeable with a dc to [facility] Still awaiting final CoPAT and will need to confirm with SNF prior to [facility] SIGNATURE: Malia Koenig RN PATIENT NAME: Stevie Sanchez DATE: November 04, 2024 TIME: 10:27 AM [facility] 11-04-2024 Note HNO ID: [id number] Author: PATRICIA SLOAN MD Service: Hospital Medicine Author Type: Physician Type: Progress Notes Filed: 11/04/2024 13:01 Note Text: DEPARTMENT OF HOSPITAL MEDICINE PROGRESS NOTE SERVICE DATE: 11/04/2024 SERVICE TIME: 1:00 PM Hospital Medicine/Primary Attending: Patricia Sloan MD NIGHT AND WEEKEND COVERAGE: DUCOR COVERAGE: Days: [phone], please page attending physician. Nights: [phone], please page [place] Hospital[facility] Night coverage pager [phone]. 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 Showed right upper lobe cavity [...] bolus given. Home hydrochlorothiazide and lisinopril has (more content not included)... [facility] 11-03-2024 Note HNO ID: [id number] Author: PATRICIA SLOAN MD Service: Hospital Medicine Author Type: Physician Type: Progress Notes Filed: 11/03/2024 13:38 Note Text: DEPARTMENT OF HOSPITAL MEDICINE PROGRESS NOTE SERVICE DATE: 11/03/2024 SERVICE TIME: 1:36 PM Hospital Medicine/Primary Attending: Patricia Sloan MD NIGHT AND WEEKEND COVERAGE: DUCOR COVERAGE: Days: [phone], please page attending physician. Nights: [phone], please page [place] Hospitalist Night coverage pager [phone]. 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 Showed right upper lobe cavity [...] OT consulted. Patient seen by OT, SNF place (more content not included)... [facility] 11-02-2024 Note HNO ID: [id number] Author: PATRICIA SLOAN MD Service: Hospital Medicine Author Type: Physician Type: Progress Notes Filed: 11/02/2024 15:14 Note Text: DEPARTMENT OF HOSPITAL MEDICINE PROGRESS NOTE SERVICE DATE: 11/02/2024 SERVICE TIME: 3:12 PM Hospital Medicine/Primary Attending: Patricia Sloan MD NIGHT AND WEEKEND COVERAGE: DUCOR COVERAGE: Days: [phone], please page attending physician. Nights: [phone], please page [place] Hospital[facility] Night coverage pager [phone]. 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 Showed right upper lobe cavity [...] on hold. Overall blood pressure has been stabl (more content not included)... [facility] 11-02-2024 Note HNO ID: [id number] Author: HAILE ALFARO JR, MD Service: Critical Care Author Type: Physician Type: Progress Notes Filed: 11/02/2024 13:34 Note Text: PULM / CRITICAL CARE PROGRESS NOTE SERVICE DATE: November 02, 2024 SERVICE TIME: 9:22 AM Admission Date: 10/24/2024 AGE: [age] year old LOS: 9 days Subjective Cc: infection, possible recurrent cancer Taking with child care nurse regarding rehab No chest pain Knows that [...] hyperlipidemia Prostate cancer (HCC) 2020 xrt at [facility] [place] Smoker former quit 2021 Spinal stenosis of [...] lymphoid tissue in node level 2R, node le (more content not included)... [facility] 11-01-2024 Note HNO ID: [id number] Author: GRACIELA SIFUENTES RN Service: Care Management Author Type: Registered Nurse Type: Care Mgt Progress Note Filed: 11/01/2024 16:21 Note Text: CARE MANAGEMENT PROGRESS NOTE SERVICE DATE: 11/01/2024 SERVICE TIME: 12:43 PM LOS: 8 days Needs Prior to Discharge: To Be Determined, Accepting Facility, Bed Availability, Facility or Agency Choices, IV Antibiotics, Precertification, Other: See Comment (CoPAT) [place] of Choice Given: Yes Level of Care Discussed: Assisted Facility Financial Disclosure Provided: Yes Provider List: Assisted Facility Provider list within the patient's requested geographic area shared with the patient/family: Yes of zip code: [address] Quality and resource use metrics shared with [...] SIGNATURE: Graciela Sifuentes RN PATIENT NAME: Stevie Sanchez DATE: November 01, 2024 TIME: 12:42 PM [facility] 11-01-2024 Note HNO ID: [id number] Author: HAILE ALFARO JR, MD Service: Critical Care Author Type: Physician Type: Progress Notes Filed: 11/01/2024 12:05 Note Text: PULM / CRITICAL CARE PROGRESS NOTE SERVICE DATE: November 01, 2024 SERVICE TIME: 11:57 AM Admission Date: 10/24/2024 AGE: [age] year old LOS: 8 days Subjective Cc: infection, possible recurrent cancer Taking with child care nurse regarding rehab No chest pain Knows that [...] hyperlipidemia Prostate cancer (HCC) 2020 xrt at [facility] [place] Smoker former quit 2021 Spinal stenosis of [...] were performed. -Ablation performed over RLL endobronchial le (more content not included)... [facility] 11-01-2024 Note HNO ID: [id number] Author: SYED QUIROZ MD Service: Hospital Medicine Author Type: Physician Type: Progress Notes Filed: 11/01/2024 15:47 Note Text: DEPARTMENT OF HOSPITAL MEDICINE PROGRESS NOTE SERVICE DATE: 11/01/2024 SERVICE TIME: 11:33 AM Hospital Medicine/Primary Attending: Syed Quiroz,* NIGHT AND WEEKEND COVERAGE: DUCOR COVERAGE: Days: [phone], please page attending physician. Nights: [phone], please page [place] Hospitalist Night coverage pager [phone]. 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 Showed right upper lobe cavity [...] Assessment AND Plan Paroxysmal atrial fibrillation (HCC) Presen (more content not included)... [facility] 10-31-2024 Note [facility] 10-31-2024 History of Present illness Narrative October 31, 2024 3:[address] Patterson/Jeana patient Order for PET CT in 2-3 weeks signed for today to facilitate treatment with plans for patient to follow up with Dr. Hills in 1-[address] scan completed. Message sent to our scheduling team. Radha García APRN.CNP documented in this encounter [facility] 10-31-2024 Note HNO ID: [id number] Author: FARIDEH VIVEROS RN Service: Care Management [...] SIGNATURE: Farideh Viveros RN PATIENT NAME: Stevie Sanchez DATE: October 31, 2024 TIME: 2:39 PM [facility] 10-31-2024 Note HNO ID: [id number] Author: SYED QUIROZ MD Service: Hospital Medicine Author Type: Physician Type: Progress Notes Filed: 10/31/2024 11:49 Note Text: DEPARTMENT OF HOSPITAL MEDICINE PROGRESS NOTE SERVICE DATE: 10/31/2024 SERVICE TIME: 11:46 AM Hospital Medicine/Primary Attending: Syed Quiroz,* NIGHT AND WEEKEND COVERAGE: DUCOR COVERAGE: Days: [phone], please page attending physician. Nights: [phone], please page [place] [facility] Night coverage pager [phone]. Subjective INTERVAL HPI: Seen and examined, patient [...] Function, Amylase, AND Lipase HOSPITAL COURSE: Stevie Sanchez is a 74 year old male presented [...] plan for bronchoscopy and biopsy at main campus. Patient was also evaluated by cardiology for [...] that time appeared more abscess and chemotherapy w (more content not included)... [facility] 10-31-2024 Note HNO ID: [id number] Author: HAILE ALFARO JR, MD Service: Critical [...] hyperlipidemia Prostate cancer (HCC) 2020 xrt at [facility] [place] Smoker former quit 2021 Spinal stenosis of [...] Intake/Output Summary (Last 24 hours) at 10/31/2024 0932 Last data filed at 10/31/2024 0535 Gross per 24 hour Intake 656.2 ml [...] changes (final results are pending) in RUL tr (more content not included)... [facility] 10-30-2024 Note HNO ID: [id number] Author: SYED QUIROZ MD Service: Hospital Medicine Author Type: Physician Type: Progress Notes Filed: 10/30/2024 13:29 Note Text: DEPARTMENT OF HOSPITAL MEDICINE PROGRESS NOTE SERVICE DATE: 10/30/2024 SERVICE TIME: 1:27 PM Hospital Medicine/Primary Attending: Syed Quiroz,* NIGHT AND WEEKEND COVERAGE: DUCOR COVERAGE: Days: [phone], please page attending physician. Nights: [phone], please page [place] [facility] Night coverage pager [phone]. Subjective INTERVAL HPI: Seen and examined, patient [...] Function, Amylase, AND Lipase HOSPITAL COURSE: Stevie Sanchez is a 74 year old male presented [...] plan for bronchoscopy and biopsy at main campus. Patient was also evaluated by cardiology for [...] maximal dimension 4.5 cm. 1+ tricuspid regurgitation. Canc (more content not included)... [facility] 10-30-2024 Note HNO ID: [id number] Author: HAILE ALFARO JR, MD Service: Critical [...] hyperlipidemia Prostate cancer (HCC) 2020 xrt at [facility] [place] Smoker former quit 2021 Spinal stenosis of [...] -- MG -- 2.2 ABG: Invalid input(s): [id number] Assessment/Plan ICU Checklist -------- A= Assess, Prevent, Manage Pain C= Choice of Sedation and Analgesia B= Both Spontaneous Awakening and Breathing Trials D= Delirium: Assess, Prevent and Manage E= Early Mobility/Excercise ICU Mobility: F= Family Engagement and Empowerment ICU Disposition: Prevention: VTE Prophylaxis: Bronchoscopy Rapid On-Site Evalua (more content not included)... [facility] 10-29-2024 Note HNO ID: [id number] Author: SYED QUIROZ MD Service: Hospital Medicine Author Type: Physician Type: Progress Notes Filed: 10/29/2024 15:06 Note Text: DEPARTMENT OF HOSPITAL MEDICINE PROGRESS NOTE SERVICE DATE: 10/29/2024 SERVICE TIME: 3:05 PM Hospital Medicine/Primary Attending: Syed Quiroz,* NIGHT AND WEEKEND COVERAGE: DUCOR COVERAGE: Days: [phone], please page attending physician. Nights: [phone], please page [place] [facility] Night coverage pager [phone]. Subjective INTERVAL HPI: Seen and examined, patient was resting. Patient very hard of hearing. Communicated via writing on board. No new complaints. Denies nausea, vomiting, abdominal pain chest pain. Patient to go to main campus for bronchoscopy and to come back. Current [...] Function, Amylase, AND Lipase HOSPITAL COURSE: Stevie Sanchez is a 74 year old male presented [...] consulted, plan for bronchoscopy and biopsy at [facility]. Patient was also evaluated by cardiology for SVT. Metoprolol dose was increased to 25 mg twice daily. Patient was continued on IV vancomycin and Zosyn. Evaluated by pulmonary and ID. 10/25/2024 overnight patient developed hypotension, 500 cc of normal saline bolus given. (more content not included)... [facility] 10-29-2024 Note [facility] 10-29-2024 Note [facility] 10-29-2024 Note HNO ID: [id number] Author: MARYCARMEN CHRISTOPHER, GABI Service: Nursing Author Type: Registered Nurse Type: Nursing Progress Note Filed: 10/29/2024 09:26 Note Text: Other: Called [facility] for report , as per nurse report was already called this am . [facility] 10-29-2024 Note HNO ID: [id number] Author: GRACIELA SIFUETNES RN Service: Care Management Author Type: Registered Nurse Type: Care Mgt Progress Note Filed: 10/29/2024 09:04 Note Text: CARE MANAGEMENT PROGRESS NOTE SERVICE DATE: 10/29/2024 SERVICE TIME: 9:02 AM LOS: 5 days Needs Prior to Discharge: To Be Determined EMR reviewed. Patient scheduled to go on [facility] to [facility] today for Bronch. 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 Cavitary lesion RUL, infection vs malignancy. Hx Lung Cancer RLL s/p Lobectomy 10/2023. On IV ATB. On RA. SVT, Paroxysmal A Fib. Now SR. Pulmonology and ID following. Cardiology signed off. SIGNATURE: Graciela Sifuentes RN PATIENT NAME: Stevie Sanchez DATE: October 29, 2024 TIME: 9:02 AM [facility] 10-28-2024 Note HNO ID: [id number] Author: SYED QUIROZ MD Service: Hospital Medicine Author Type: Physician Type: Progress Notes Filed: 10/28/2024 13:20 Note Text: DEPARTMENT OF HOSPITAL MEDICINE PROGRESS NOTE SERVICE DATE: 10/28/2024 SERVICE TIME: 1:13 PM Hospital Medicine/Primary Attending: Syed Quiroz,* NIGHT AND WEEKEND COVERAGE: DUCOR COVERAGE: Days: [phone], please page attending physician. Nights: [phone], please page [place] [facility] Night coverage pager [phone]. Subjective INTERVAL HPI: Seen and examined, patient was resting. Patient very hard of hearing. Communicated via writing on board. When asked if something bothering him he states everything, complains of hurting all over. No specific complaints, complain of cough. Inquiring about what time he will be transferred tomorrow so he can update his family. Appeared frustrated about going to [facility] and then had to come back. Current [...] 10/25/24 1704 LACT 2.0 HOSPITAL COURSE: Stevie Sanchez is a 74 year old male presented [...] consulted, plan for bronchoscopy and biopsy at [facility]. Patient was also evaluated by cardiology for [...] for possible SVT Converted to NSR after (more content not included)... [facility] 10-27-2024 Note HNO ID: [id number] Author: SYED QUIROZ MD Service: Hospital Medicine Author Type: Physician Type: Progress Notes Filed: 10/27/2024 12:58 Note Text: DEPARTMENT OF HOSPITAL MEDICINE PROGRESS NOTE SERVICE DATE: 10/27/2024 SERVICE TIME: 12:56 PM Hospital Medicine/Primary Attending: Syed Quiroz,* NIGHT AND WEEKEND COVERAGE: DUCOR COVERAGE: Days: [phone], please page attending physician. Nights: [phone], please page [place] [facility] Night coverage pager [phone]. Subjective INTERVAL HPI: Seen and examined, patient [...] 19 LACT 2.0 -- HOSPITAL COURSE: Stevie Sanchez is a 74 year old male presented [...] consulted, plan for bronchoscopy and biopsy at [facility]. Patient was also evaluated by cardiology for SVT. Metoprolol dose was increased to 25 mg twice daily. Patient was continued on IV vancomycin and Zosyn. Evaluated by pulmonary and ID. 10/25/2024 overnight patient developed hypotension, 500 cc of normal saline bolus given. Assessment AND Plan Paroxysmal atrial fibrillation (HCC) Present on Admi (more content not included)... [facility] 10-26-2024 Note HNO ID: [id number] Author: SYED QUIROZ MD Service: Hospital Medicine Author Type: Physician Type: Progress Notes Filed: 10/26/2024 11:57 Note Text: DEPARTMENT OF HOSPITAL MEDICINE PROGRESS NOTE SERVICE DATE: 10/26/2024 SERVICE TIME: 11:44 AM Hospital Medicine/Primary Attending: Syed Quiroz,* NIGHT AND WEEKEND COVERAGE: DUCOR COVERAGE: Days: [phone], please page attending physician. Nights: [phone], please page [place] [facility] Night coverage pager [phone]. Subjective INTERVAL HPI: Seen and examined, patient [...] Line Duration Peripheral 10/25/24 1146 [facility] Short Right Forearm 22 Gauge <1 day [...] 19 LACT 2.0 -- HOSPITAL COURSE: Stevie Sanchez is a 74 year old male presented [...] consulted, plan for bronchoscopy and biopsy at [facility]. Patient was also evaluated by cardiology for SVT. Metoprolol dose was increased to 25 mg twice daily. Patient was continued on IV vancomycin and Zosyn. Evaluated by pulmonary and ID. 10/25/2024 overnight patient developed hypotension, 500 cc of normal saline bolus given. Assessment AND Plan Paroxysmal atrial fibrillation (HCC) Pr (more content not included)... [facility] 10-25-2024 Note [facility] 10-25-2024 Note [facility] 10-25-2024 History of Present illness Narrative POPULATION HEALTH NAVIGATION OUTREACH Action/FYI Pt needs annual wellness visit , follow up 01/24/25 No HCCs Left voicemail for patient, Sent CO-Valuet message to the pt Reason for Outreach Care Gap/HCC or Scheduling Wellness Visits Care Gaps due: Medicare Annual Wellness Visit Follow-up Appointment Patient Contacted: Unable or unnecessary to reach patient: Left message [employer] message sent Navigation Signature: Yunior Fan October 25, 2024 1:24 PM documented in this encounter [facility] 10-25-2024 Note HNO ID: [id number] Author: FARIDEH VIVEROS RN Service: Care Management [...] Relation: Son Admission Status: Inpatient Insurance Provider: [facility] MEDIC[facility] PPO Discharge Planning requested by: Per Department Practice Potential Transition Plans Home, Home Care, Assisted Facility/Intermediate Care Facility, To Be Determined Advance Directives Current Advance Directive: Health Care Power of Pipe Setter In Chart: Yes Up To Date and [...] None Discharge Planning Patient Goal(s): General wellness [place] of Choice Explained: [place] of Choice Given: No Reason Not Given: No placements necessary Are you interested in bedside delivery of your medications? No, [facility] [place] Discharge Planning Participant(s): Patient, Family Patient/Family Comments: Caregiver Assessment: Caregiver is ready, willing and able to meet the patient's needs as recommended by the inter-professional team: Other: See Comment (DC needs TBD.) Transport at Discharge: Transportation Arrangements: Car Needs Prior to Discharge: Needs Prior to Discharge: Other: See Comment, Procedure, To Be Determined (medical clearance) Procedure Needed: Bronch at [facility] Post-Acute Discharge Plan: EMR reviewed. PAtient admitted with A-flutter. Going to [facility] on Monday via [facility] for procedure then will return. RNCM spoke to patient and his sister's to complete assessment. Patient from home alone, [employer], drives. Family to transport upon DC. CM assigned will continue to follow for DC planning needs. SIGNATURE: Farideh Viveros RN PATIENT NAME: Stevie Sanchez DATE: October 25, 2024 TIME: 11:54 AM [facility] 10-25-2024 Note HNO ID: [id number] Author: HAILE ROBERTSON MD Service: Hospital Medicine Author Type: Physician [...] normal. Musculoskeletal: General: No swelling. ASSESSMENT: Mr. Sanchez, your 74 years have been affected by [...] Stage 1 mild COPD by GOLD classification ([facility]) 11/17/2023 Priority: B Lung abscess (HCC) 11/17/2023 Priority: B Sepsis (HCC) 10/25/2024 Cavitary lesion of lung 10/24/2024 Anemia 10/24/2024 Cancer of lower lobe of right lung (HCC) 11/15/2023 Prostate cancer (HCC) 09/11/2023 Infrarenal abdominal aortic aneurysm (AAA) without rupture 02/08/2021 Mixed hyperlipidemia 06/23/2010 Leg blood clot prevention: lovenox starting tonight unless procedure planned SIGNATURE: Haile Robertson MD DATE: 10/25/2024 TIME: 8:27 AM [facility] 10-24-2024 Note [facility] 10-24-2024 History of Present illness Narrative SUBJECTIVE: Stevie Sanchez is a 74 year old male Patient [...] Regular Adult) Pulse (!) 170 Temp 36.7 C (98 F) (Temporal) Ht 172.2 cm (5' 7.8) Wt 71.6 kg (157 lb 11.8 oz) SpO2 97% BMI 24.13 kg/m General Appearance: Well appearing, alert, in no [...] REVIEW OF TESTS: Labs Praful Su MD documented in this encounter [facility] 10-22-2024 Telephone encounter Note Provider will not be in office on 01/16 and the appointment the patient had this day has been rescheduled. The appointment has been rescheduled for 03/13/2025, this is his soonest available appointment and it has been added to the wait-list. I left a voicemail to notify patient and will send a MyChart message. [facility] 10-22-2024 Miscellaneous Notes Provider will not be in office on 01/16 and the appointment the patient had this day has been rescheduled. The appointment has been rescheduled for 03/13/2025, this is his soonest available appointment and it has been added to the wait-list. I left a voicemail to notify patient and will send a MyChart message. documented in this encounter [facility] 09-20-2024 Note [facility] 09-20-2024 History of Present illness Narrative Images from the original note were not included. [facility] Care Path Telephonic Outreach Provider Action/FYI Patient identified by Name and Date of . Discussed care with patient. Program Details Chronic Disease Management Status: Enrolled Effective Dates: 09/06/2024 - present Responsible Staff: Darcie Whitten RN Support and Services: Chronic Obstructive Pulmonary Disease (COPD), High Utilizer Program Goals Targets Target Due Completed Completed By Outcome Annual Medicare Wellness visit addressed 12/09/2024 -- -- -- Annual Pulmonology visit addressed 12/09/2024 -- -- -- Comprehensive COPD education provided 12/09/2024 -- -- -- Patient-stated goal addressed (add comment) 12/09/2024 -- -- -- Biannual PCP visit addressed 12/09/2024 09/13/2024 Darcie Whitten RN Complete/Scheduled General education provided (managing stress, where to go/how to contact, etc.) 10/07/2024 09/06/2024 Darcie Whitten RN Complete Intake assessments completed: ADLs, Fall Risk, SDOH 10/07/2024 09/06/2024 Darcie Whitten RN Complete Assessments CDM Assessment Medications: Do [...] COPD Education: Action Plan Disposition Based on mash preparatory operator, the following disposition is advised: No action needed Darcie Whitten RN September 20, 2024 4:27 PM documented in this encounter [facility] 09-13-2024 Note [facility] 09-13-2024 History of Present illness Narrative Images from the original note were not included. [facility] Care Path Telephonic Outreach Provider Action/FYI Patient identified by Name and Date of . Discussed care with patient. Program Details Chronic Disease Management Status: Enrolled Effective Dates: 09/06/2024 - present Responsible Staff: Darcie Whitten RN Support and Services: Chronic Obstructive Pulmonary [...] to go/how to contact, etc.) 10/07/2024 09/06/2024 Darcie Whitten RN Complete Intake assessments completed: ADLs, Fall Risk, SDOH 10/07/2024 09/06/2024 Darcie Whitten RN Complete Assessments CDM Assessment Medications: Do [...] Month 1: Provide General Education: Managing Stress & Anxiety - Month 1: Provide General Education: Where to Go for Care Disposition Based on mash preparatory operator, the following disposition is advised: No action needed Darcie Whitten RN September 13, 2024 4:28 PM documented in this encounter [facility] 09-11-2024 Note [facility] 09-11-2024 History of Present illness Narrative Images from the original note were not included. (Elements copied from my note dated December 19, 2023, have been reviewed and updated where appropriate, and all reflect current assessment and medical decision making during today's encounter, 09/11/2024) HISTORY OF PRESENT ILLNESS: Stevie Sanchez is a 74 year old male Cancer [...] 0% 11/15/23 R lower lobectomy with Dr. 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 *5 cm AAA under surveillance with Tea Jackson TREATMENT HISTORY: SCANS: 12/09/23: Unchanged size of [...] or synchronus disease. After conferring with Dr. Lizama, it was unclear if there would be [...] hyperlipidemia Prostate cancer (HCC) 2020 xrt at [facility] [place] Smoker former quit 2021 Spinal stenosis of [...] is at baseline. LABS: Latest Ref Rng & Units 06/23/2024 CBC WBC 3.70 - 11.00 [...] - 12.7 fL 9.4 Latest Ref Rng & Units 06/23/2024 CMP Sodium 136 - 144 mmol/L 142 Potassium 3.7 - 5.1 mmol/L 3.7 Chloride 98 - 107 mmol/L 105 CO2 22 - 30 mmol/L 25 Glucose 74 - 99 mg/dL 97 BUN 9 - 24 mg/dL 10 Creatinine 0.73 - 1.22 mg/dL 0.59 EGFR >=60 mL/min/1.73m 104 Calcium 8.5 - 10.2 mg/dL 9.5 No results found for: TSH Kevin Patterson MD documented in this encounter [facility] 09-10-2024 Note [facility] 09-10-2024 History of Present illness Narrative Patient is identified through a medication adherence outreach initiative based on pharmacy claims data from: [employer] Medication Adherence Category: Hypertension First Review Attribution [...] no adherence concerns to be addressed Veronika Tucker CPhT [facility] Pharm[facility] Team documented in this encounter [facility] 09-06-2024 Note [facility] 09-06-2024 History of Present illness Narrative CDM ENROLLMENT Provider Action / FYI: Patient identified by name and date of . Discussed care with patient. Program Details Chronic Disease Management Status: Enrolled Effective Dates: 09/06/2024 - present Responsible Staff: Darcie Whitten RN Support and Services: Chronic Obstructive Pulmonary [...] were you homeless or living in a correction (including now)?: No Transportation Needs In the [...] has the electric, gas, oil, or water famPlus threatened to shut off services in your [...] - Initial enrollment outreach Disposition Based on mash preparatory operator, the following disposition is advised: No action needed Darcie Whitten RN September 06, 2024 12:06 PM documented in this encounter [facility] 09-03-2024 Telephone encounter Note Patient calls for medication refill today. PCP is Praful Su M.D.. Patient was last seen April 25, 2024. Last Blood work was June 23, 2024. Requested Prescriptions Pending Prescriptions Disp Refills lisinopril-hydroCHLOROthiazide (ZESTORETIC) 20-12.5 mg per tablet 90 tablet 3 Sig: Take 1 tablet by mouth once daily. atorvastatin (LIPITOR) 20 mg tablet 90 tablet 3 Sig: Take 1 tablet by mouth once daily. Glucose (mg/dL) Date Value 06/23/2024 97 02/08/2021 [...] Calcium, Total (mg/dL) Date Value 06/23/2024 9.5 Lab Results Component Value Date HBA1C 6.1 05/02/2023 HBA1C 5.9 03/14/2022 HBA1C 6.0 02/08/2021 HBA1C 5.7 01/01/2020 HBA1C 5.9 05/14/2018 INR Date Value Ref Range Status 06/07/2024 1.1 0.9 - 1.3 Final Comment: Vitamin K Antagonist (VKA) Therapeutic Range: INR 2 to 3 (Target INR of 2.5) Note: For patients treated with VKA drugs, such as warfarin, the [employer] 2012 Guideline recommends [...] to 3.5 (target INR of 3). Etienne GH, et al. Chest 2012, 141:7S-47S Vicki RA, et al. [facility] 2017, 70: 252-289 Cholesterol, Total (mg/dL) Date Value 05/07/2024 154 02/08/2021 197 HDL Cholesterol (mg/dL) Date Value 05/07/2024 61 02/08/2021 47 LDL Cholesterol, Calculated (mg/dL) Date Value 05/07/2024 67 02/08/2021 99 Triglyceride (mg/dL) Date Value 05/07/2024 129 02/08/2021 253 No results found for: [facility] Pharmacy has been captured: Yes. Patient prefers: [facility]. Darshana Dunn LPN [facility] 09-03-2024 Miscellaneous Notes Patient calls for medication refill today. PCP is Praful Su M.D.. Patient was last seen April 25, 2024. Last Blood work was June 23, 2024. Requested Prescriptions Pending Prescriptions Disp Refills lisinopril-hydroCHLOROthiazide (ZESTORETIC) 20-12.5 mg per tablet 90 tablet 3 Sig: Take 1 tablet by mouth once daily. atorvastatin (LIPITOR) 20 mg tablet 90 tablet 3 Sig: Take 1 tablet by mouth once daily. Glucose (mg/dL) Date Value 06/23/2024 97 02/08/2021 [...] Calcium, Total (mg/dL) Date Value 06/23/2024 9.5 Lab Results Component Value Date HBA1C 6.1 05/02/2023 HBA1C 5.9 03/14/2022 HBA1C 6.0 02/08/2021 HBA1C 5.7 01/01/2020 HBA1C 5.9 05/14/2018 INR Date Value Ref Range Status 06/07/2024 1.1 0.9 - 1.3 Final Comment: Vitamin K Antagonist (VKA) Therapeutic Range: INR 2 to 3 (Target INR of 2.5) Note: For patients treated with VKA drugs, such as warfarin, the [employer] 2012 Guideline recommends [...] FRANCIS, et al. Chest 2012, 141:7S-47S Vicki MEDINA et al. [facility] 2017, 70: 252-289 Cholesterol, Total (mg/dL) Date Value 05/07/2024 154 02/08/2021 197 HDL Cholesterol (mg/dL) Date Value 05/07/2024 61 02/08/2021 47 LDL Cholesterol, Calculated (mg/dL) Date Value 05/07/2024 67 02/08/2021 99 Triglyceride (mg/dL) Date Value 05/07/2024 129 02/08/2021 253 No results found for: [facility] Pharmacy has been captured: Yes. Patient prefers: [facility]. Darshana Dunn LPN Patient phones requesting refills as follows: Requested Prescriptions Pending Prescriptions Disp Refills lisinopril-hydroCHLOROthiazide (ZESTORETIC) 20-12.5 mg per tablet 90 tablet 3 Sig: Take 1 tablet by mouth once daily. atorvastatin (LIPITOR) 20 mg tablet 90 tablet 3 Sig: Take 1 tablet by mouth once daily. Please review and advise. Connie Champion documented in this encounter [facility] 09-03-2024 Telephone encounter Note Patient phones requesting refills as follows: Requested Prescriptions Pending Prescriptions Disp Refills lisinopril-hydroCHLOROthiazide (ZESTORETIC) 20-12.5 mg per tablet 90 tablet 3 Sig: Take 1 tablet by mouth once daily. atorvastatin (LIPITOR) 20 mg tablet 90 tablet 3 Sig: Take 1 tablet by mouth once daily. Please review and advise. Connie Champion [facility] 08-23-2024 Note [facility] 08-23-2024 History of Present illness Narrative Images from the original note were not included. Radiation Therapy - Nursing Note (Follow-up) PATIENT NAME: Stevie Sanchez PATIENT August 23, 2024 [facility] FACILITY/LOCATION: [place] Reason for visit: Follow up. Subjective Data Additional Data Do you want to see a Bean Snapper? No Difficulty performing or completing routine daily [...] Breath on exertion dry cough SIGNED by: Candace Perez RN Images from the original note were not included. Radiation Oncology - Follow Up Note PATIENT NAME: Stevie Sanchez PATIENT DIAGNOSIS: 74 year old man with: 1. Enlarging/hypermetabolic/cavitary RUL nodule c/w NSCLC, [id number], Stage IA3, s/p SBRT 02/01/24 [3400 cGy/1 fx] 2. 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 Hx of adenocarcinoma of the prostate, s/p ADT/EBRT completed 01/15/21, PSA 0.08 ng/mL Thoracic surgeon: Paula Lizama MD, PhD INTERVAL HISTORY: Mr. Sanchez has a history of prostate cancer, diagnosed [...] bronchoplasty closure, mediastinal/hilar LND on 11/15/23 (Dr. Lizama). Pathology showed a 2.4 cm focus of [...] with: 1. Enlarging/hypermetabolic/cavitary RUL nodule c/w NSCLC, [id number], Stage IA3, s/p SBRT 02/01/24 [3400 cGy/1 fx] 2. 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 Hx of adenocarcinoma of the prostate, s/p ADT/EBRT completed 01/15/21, PSA 0.08 ng/mL Mr. Sanchez is doing well. CT 05/08/24 shows response at RUL nodule treated with SBRT on my review. Re-staging CT is scheduled for 11/21/24 and he is to see Romina Kahn; I will arrange for follow-up soon after this CT (11/25/24). He will see Dr. Patterson on 09/11/24. I spent 30 minutes in the visit in counseling / coordination of care. Signed by: Elias Goss MD cc: MD Kevin Nicholas MD Sudish Murthy, MD documented in this encounter [facility] 08-23-2024 Note [facility] 08-20-2024 Note [facility] 08-20-2024 History of Present illness Narrative Images from the original note were not included. [facility] Department of Thoracic Surgery VIRTUAL VIDEO VISIT ESTABLISHED OUTPATIENT VISIT SERVICE DATE: 08/20/2024 Patient: Stevie Sanchez SERVICE TIME: 1:00 : 1950 This is a virtual video visit. It required patient-provider interaction for the medical decision making as documented below. Stevie Sanchez has consented to this video encounter. I have communicated my name and active licensure. The patient's identity and physical location were verified at the time of this visit. Either the patient or their legal market survey representative has been informed of the risks and benefits of -- and alternatives to -- treatment through a remote evaluation and consents to proceed with the evaluation remotely. PAST MEDICAL HISTORY Diagnosis Date Abdominal aortic aneurysm without rupture Elevated PSA Hearing loss HTN (hypertension) Lumbosacral neuritis Malignant neoplasm of prostate (HCC) Other and unspecified hyperlipidemia Prostate cancer (HCC) 2020 xrt at [facility] [place] Smoker former quit 2021 Spinal stenosis of [...] management and care of this patient. Romina Kahn APRN.SUPERVISOR STRIPPING August 20, 2024 Part of this note was copied from previous note, all content has been individually reviewed, updated as necessary, and thoroughly reviewed. [facility] - [facility] OUTPATIENT THORACIC SURGERY CLINIC NOTE PT NAME: Stevie Sanchez [facility] NO: [id number] THORACIC SURGEON: Paula Lizama M.D. DATE OF SERVICE: 08/20/2024 PRINCIPAL DX: [...] the inked margin) were reviewed at the [facility] thoracic pathology consensus conference on 11/23/23. Dr. Fauzia Oseguera, Dr. Alexis Altman, Dr. Fitch and Dr. Romina Bryan were present and concurred with this interpretation. The status of the margins was discussed with Dr. Lizama by email on 11/23/23 and discussed at [...] tissue or parenchymal margin; discussed with Dr. Lizama on 11/23/23. The bronchial and vascular margins [...] 1, 8th Ed.) it is the managing physician s responsibility to establish the final pathologic stage based upon all pertinent information, including but potentially not limited to this pathology report. pT Category pT1c pN Category pN0 ADDITIONAL FINDINGS Additional Findings Inflammation: Acute and organizing bronchopneumonia Post-obstructive changes . REASON FOR VISIT: Post-operative visit HPI: Stevie Sanchez is a 73 year old male, with h/o HTN, HLD, COPD with a long tobacco use history, AAA (4.67 cm FU w VS), spinal stenosis and Prostate cancer [id number] adenocarcinoma prostate s/p TRUS random biopsy 09/24/20, [...] intercostal nerve block on 06/19/[address] Lizama. Hospital course was uncomplicated and Right chest [...] right hydropneumothorax since 07/01/2024 INTERVAL HISTORY: Stevie Sanchez is seen today via a virtual visit. [...] oncology 08/23/[address] a visit [address] Dr Patterson in oncology 09/11/24. Will arrange a CT scan of the chest in 3 months to be done in [place] and then a virtual visit the next day. IMPRESSION: Stevie Sanchez 74 year old male with squamous cell carcinoma of right lower lung pT1cN0/ Stage IA3 s/p lobectomy on 11/15/[address] Lizama. Post surgical underwent SBRT treatment of a right upper lobe lesion. After his treatment, patient began developing and gradually enlarging pneumatocele at the base of his right lung. Now s/p Right robotic assisted lysis of adhesions, repair of broncho/alveolar fistula, pleural flap and intercostal nerve block on 06/19/[address] Lizama. PLAN: - return in 6 weeks with virtual visit following CXR at [place] - oncology management with Dr Patterson, f/u 09/11/24 - radiation oncology management with Dr Goss, f/u 08/23/24 Romina Kahn APRN.SUPERVISOR STRIPPING documented in this encounter [facility] 08-19-2024 History of Present illness Narrative Radiology Service Progress Note PATIENT NAME: Stevie Sanchez DATE OF SERVICE: August 19, 2024 TIME: [...] PATIENT PRESENTS WITH AN IMPLANTABLE OR ATTACHED BURRER MARKER AXLE: No RADIOLOGY DEPARTMENT: General X-ray: Exam(s) Completed: Chest X-Ray PERIPHERAL IV DATA: Not applicable SIGNED BY: RT Patricia(R) August 19, 2024 11:05 AM documented in this encounter [facility] 08-19-2024 Note HNO ID: [id number] Author: FADI MELGAR RT(R) Service: Radiology Author Type: Technologist Type: Progress Notes Filed: 08/19/2024 11:05 Note Text: Radiology Service Progress Note PATIENT NAME: Stevie Sanchez DATE OF SERVICE: August 19, 2024 TIME: [...] PATIENT PRESENTS WITH AN IMPLANTABLE OR ATTACHED BURRER MARKER AXLE: No RADIOLOGY DEPARTMENT: General X-ray: Exam(s) Completed: Chest X-Ray PERIPHERAL IV DATA: Not applicable SIGNED BY: RT Patricia(R) August 19, 2024 11:05 AM [facility] 07-12-2024 History of Present illness Narrative Transitional Care Management (TCM) Follow-Up Note PCP [...] care topics, and follow-up needed upon discharge. Darcie Whitten RN July 12, 2024 11:20 AM documented in this encounter [facility] 07-12-2024 Note [facility] 2024 Note [facility] 2024 History of Present illness Narrative Images from the original note were not included. Part of this note was copied from previous note, all content has been individually reviewed, updated as necessary, and thoroughly reviewed. [facility] - [facility] OUTPATIENT THORACIC SURGERY CLINIC NOTE PT NAME: Stevie Laura [facility] NO: [id number] THORACIC SURGEON: Paula Lizama M.D. DATE OF SERVICE: 2024 PRINCIPAL DX: [...] the inked margin) were reviewed at the [facility] thoracic pathology consensus conference on 11/23/23. Dr. Fauzia Oseguera, Dr. Alexis Altman, Dr. Fitch and Dr. Romina Bryan were present and concurred with this interpretation. The status of the margins was discussed with Dr. Lizama by email on 11/23/23 and discussed at [...] tissue or parenchymal margin; discussed with Dr. Lizama on 11/23/23. The bronchial and vascular margins [...] 1, 8th Ed.) it is the managing physician s responsibility to establish the final pathologic stage based upon all pertinent information, including but potentially not limited to this pathology report. pT Category pT1c pN Category pN0 ADDITIONAL FINDINGS Additional Findings Inflammation: Acute and organizing bronchopneumonia Post-obstructive changes . REASON FOR VISIT: Post-operative visit/suture removal HPI: Stevie Sanchez is a 73 year old male, with h/o HTN, HLD, COPD with a long tobacco use history, AAA (4.67 cm FU w VS), spinal stenosis and Prostate cancer [id number] adenocarcinoma prostate s/p TRUS random biopsy 09/24/20, [...] intercostal nerve block on 06/19/[address] Lizama. Hospital course was uncomplicated and Right chest tube left in place for small air leak to a mini atrium to allow the lung heal. Patient was medically and surgically cleared for discharge on 06/23/2024 with chest tube. This was removed in [facility]PD 07/02/23. PHYSICAL EXAM: VITAL SIGNS: BP 125/77 Pulse 73 Temp 36.7 C (98 F) (Oral) Resp 14 Ht 177.8 cm (5' 10) Wt 77.2 kg (170 lb 3.2 oz) SpO2 96% BMI 24.42 kg/m Room air Incision location: Right Thoracoport sites [...] petechiae IMAGING/TESTS: CXR 2024 INTERVAL HISTORY: Stevie Sanchez returns for post op visit and suture [...] visit in 6 weeks after CXR in [place]. Will arrange for follow up with his oncology teams. 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 Lizama. Post surgical underwent SBRT treatment of a right upper lobe lesion. After his treatment, patient began developing and gradually enlarging pneumatocele at the base of his right lung. Now s/p Right robotic assisted lysis of adhesions, repair of broncho/alveolar fistula, pleural flap and intercostal nerve block on 06/19/[address] Lizama. PLAN: - return in 6 weeks with virtual visit following CXR at [place] - oncology management with Dr Patterson - radiation oncology management with Dr Ana Paula Kahn APRN.SUPERVISOR STRIPPING documented in this encounter [facility] 2024 History of Present illness Narrative Radiology Service Progress Note PATIENT NAME: Stevie Sanchez DATE OF SERVICE: 2024 TIME: 9:08 AM [...] PATIENT PRESENTS WITH AN IMPLANTABLE OR ATTACHED BURRER MARKER AXLE: No RADIOLOGY DEPARTMENT: General X-ray: Exam(s) Completed: Chest X-Ray PERIPHERAL IV DATA: Not applicable SIGNED BY: RT Roseanna(R) 2024 9:08 AM documented in this encounter [facility] 2024 Note [facility] 07-05-2024 Note [facility] 07-05-2024 History of Present illness Narrative Transitional Care Management (TCM) Follow-Up Note PCP [...] for Care Where to Go for Care Darcie Whitten RN July 05, 2024 10:47 AM documented in this encounter [facility] 07-01-2024 History of Present illness Narrative Radiology Service Progress Note PATIENT NAME: Stevie Sanchez DATE OF SERVICE: July 01, 2024 TIME: [...] PATIENT PRESENTS WITH AN IMPLANTABLE OR ATTACHED BURRER MARKER AXLE: No RADIOLOGY DEPARTMENT: General X-ray: Exam(s) Completed: Chest X-Ray PERIPHERAL IV DATA: Not applicable SIGNED BY: RT Roseanna(R) July 01, 2024 12:04 PM documented in this encounter [facility] 07-01-2024 Note [facility] 07-01-2024 Instructions Yuniel Baltazar APRN.SUPERVISOR STRIPPING - 07/01/2024 11:39 AM EDT After surgery care 1. Keep the Incision [...] 4 weeks after surgery. Do not perform outdoor emergency care technician such as laundry and vacuuming. Do not [...] questions or concerns you may send a MyChart message to your provider. 8. Avoid Smoking: [...] any changes in your chest area. 1 documented in this encounter [facility] 07-01-2024 History of Present illness Narrative Images from the original note were not included. [facility] - [facility] OUTPATIENT THORACIC SURGERY CLINIC NOTE PT NAME: Stevie [facility] NO: [id number] THORACIC SURGEON: Paula Lizama M.D. DATE OF SERVICE: July 01, 2024 [...] the inked margin) were reviewed at the [facility] thoracic pathology consensus conference on 11/23/23. Dr. Fauzia Oseguera, Dr. Alexis Altman, Dr. Fitch and Dr. Romina Bryan were present and concurred with this interpretation. The status of the margins was discussed with Dr. Lizama by email on 11/23/23 and discussed at [...] tissue or parenchymal margin; discussed with Dr. Lizama on 11/23/23. The bronchial and vascular margins [...] 1, 8th Ed.) it is the managing physician s responsibility to establish the final pathologic stage based upon all pertinent information, including but potentially not limited to this pathology report. pT Category pT1c pN Category pN0 ADDITIONAL FINDINGS Additional Findings Inflammation: Acute and organizing bronchopneumonia Post-obstructive changes . REASON FOR VISIT: First post-operative visit HPI: Stevie Sanchez is a 73 year old male, with h/o HTN, HLD, COPD with a long tobacco use history, AAA (4.67 cm FU w VS), spinal stenosis and Prostate cancer [id number] adenocaarcinoma prostate s/p TRUS random biopsy 09/24/20, [...] intercostal nerve block on 06/19/[address] Lizama. Hospital course was uncomplicated and Right chest tube left in place for small air leak to a mini atrium to allow the lung heal. Patient was medically and surgically cleared for discharge on 06/23/2024. PHYSICAL EXAM: VITAL SIGNS: BP 115/74 Pulse 76 Temp 36.9 C (98.5 F) (Oral) Resp 14 Ht 177.8 cm (5' 10) Wt 77.1 kg (170 lb) SpO2 96% BMI 24.39 kg/m Room air Incision location: Right Thoracoport sites [...] consolidations. No pulmonary edema. INTERVAL HISTORY: Stevie Sanchez returns for first post op visit. He [...] 06/23 output was 600 ml. 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 Lizama. Post surgical underwent SBRT treatment of a right upper lobe lesion. After his treatment, patient began developing and gradually enlarging pneumatocele at the base of his right lung. Now s/p Right robotic assisted lysis of adhesions, repair of broncho/alveolar fistula, pleural flap and intercostal nerve block on 06/19/[address] Lizama. Incisions are healing well and suture removed [...] week for repeat CXR and suture removal. Yuniel Baltazar APRN.ELVIRA documented in this encounter [facility] 07-01-2024 Note [facility] 07-01-2024 History of Present illness Narrative Radiology Service Progress Note PATIENT NAME: Stevie Sanchez DATE OF SERVICE: July 01, 2024 TIME: [...] PATIENT PRESENTS WITH AN IMPLANTABLE OR ATTACHED BURRER MARKER AXLE: No RADIOLOGY DEPARTMENT: General X-ray: Exam(s) Completed: Chest X-Ray PERIPHERAL IV DATA: Not applicable SIGNED BY: RT Roseanna(R) July 01, 2024 10:19 AM documented in this encounter [facility] 07-01-2024 Note [facility] 06-24-2024 Note [facility] 06-24-2024 History of Present illness Narrative POPULATION HEALTH NAVIGATION OUTREACH Action/I June 24, 2024 4:51 PM CardLab Message ~ TCM Navigation Team Update / Actionable Items Readmission risk is LOW =9 Please schedule PCP Hospital Follow Up within 30 days Patient discharged from [facility] Discharge date: 06/23/24 Admitted for: Hydropneumothorax [...] Reason for Outreach Community Monitoring/Network Navigator Pools & Phone Line: CM Pool Care Gaps due: Follow-up Appointment Patient Contacted: Spoke to patient/parent/or legal guardian Patient identified by name and : Yes Community Monitoring/Network Navigator Pools & Phone Line actions taken: Patient declined: Doesn't feel it's necessary Navigation Signature: Thad Chaves MA June 24, 2024 4:51 PM Transition Care Management (TCM) Initial Outreach PCP Update / Actionable Items Navigation Team Update / Actionable Items Readmission risk is LOW =9 Please schedule PCP Hospital Follow Up within 30 days HRTIC TCM Home Visit Referral Source of Stratification: [facility] Admission Status: Discharged Readmission Risk Score: 9 Patient's zip code: [address] Is zip code within program service area: [...] questions at this time. Patient discharged from [facility] Discharge date: 06/23/24 Admitted for: Hydropneumothorax Readmission Risk: 9 Value-Based Contract: Russ HARKINS Contact: Contact made with patient: Yes Hi, my name is Darcie Whitten RN and I am calling from the [facility] on behalf of your Primary Care [...] I will send your request to a explosive operator supervisor who will contact and assist you with [...] for Care Where to Go for Care Darcie Whitten RN June 24, 2024 4:35 PM documented in this encounter [facility] 06-24-2024 Note [facility] 06-23-2024 Note [facility] 06-23-2024 Note [facility] 06-22-2024 Note [facility] 06-21-2024 Note [facility] 06-20-2024 Note [facility] 06-20-2024 Note [facility] 06-20-2024 Note [facility] 06-19-2024 Note [facility] 06-19-2024 Note [facility] 06-18-2024 Instructions Malia Egan DO - 06/18/2024 10:32 AM EDT The normal abdominal aortic diameter is 2cm. [...] repair to be associated with 4% mortality. [facility] experience has been 2%. Endovascular AAA repair has 2% mortality nationwide in medicare population and 1% at [facility]. This shows that either open [...] aneurysm with either CAT scans or ultrasound. documented in this encounter [facility] 06-18-2024 Note [facility] 06-18-2024 History of Present illness Narrative Images from the original note were not included. [facility] DEPARTMENT OF VASCULAR SURGERY OUTPATIENT VISIT DATE June 18, 2024 OUTPATIENT VISIT TYPE ESTABLISHED SERVICE DATE: 06/18/2024 SERVICE TIME: 10:26 AM PRIMARY CARE PHYSICIAN: Praful Su MD HISTORY OF PRESENT ILLNESS: Mr. Sanchez is a 73 year old male who [...] hyperlipidemia Prostate cancer (HCC) 2020 xrt at [facility] [place] Smoker former quit 2021 Spinal stenosis of [...] for today's visit: Aorta ultraosund IMPRESSION: Mr. Sanchez is a 73 year old male with [...] with more than 50% of the total [id number] time of the visit in counseling / coordination of care. Malia gEan DO documented in this encounter [facility] 06-13-2024 Note [facility] 06-13-2024 History of Present illness Narrative Images from the original note were not included. [facility] DEPARTMENT OF [facility]ULMONARY MEDICINE OFFICE VISIT FOLLOW UP 06/13/2024 Patient Name: Stevie Sanchez PRIMARY CARE PHYSICIAN: Praful Su MD REASON [...] - Scheduled for possible VATS with Dr. Lizama 06/19/2024. - Continue Wixela 1 puff BID. [...] verbalizes understanding and is in agreement. Thad Garrett MD, Staff, [facility] CHIEF COMPLAINT: Abnormal Imaging HISTORY OF PRESENT ILLNESS: Stevie Sanchez is a 72 year old male with PMHx of hypertension, hyperlipidemia, Spinal Stenosis, AAA measuring, prostate cancer and former smoker Patient is here for a follow up. Underwent routine surveillance imaging with CT chest on 05/09/2023 which showed an enlarging right basilar pneumothorax following that patient was admitted to [facility] final read suggestive of large cystic space in the resection bed. Concerning for multiloculated pneumothorax versus large bulla. Patient was initially supposed to obtain a chest tube but after further discussion and improvement in symptoms was discharged. Now is scheduled with Dr. Lizama for possible VATS. Patient completed radiation for [...] No significant exposure Silica: No significant exposure Bailey: Present Mold: Present Hot tub: No significant [...] COVID-19 original vaccine, age 12+ yr, monovalent (Grupanya - PURPLE TOP) 05/26/2020 06/17/2020 02/04/2021 COVID-19 vaccine, age 12+ yr (MODERNA) 02/06/2024 COVID-19 vaccine, age 12+ yr (Ability DynamicsBIOHighlighter COMIRNATY) 02/14/2023 COVID-19 vaccine, age 12+ yr, bivalent (Grupanya) 12/28/2021 influenza (HD-IIV3) vaccine, age 65+ yr, [...] evaluation of this patient on 06/13/2024 Thad Garrett MD, Staff, [facility] documented in this encounter [facility] 06-09-2024 Note [facility] 06-09-2024 History of Present illness Narrative I have read and reviewed the documentation and agree. I wish to add the following findings which have been dictated and will be communicated back to the requesting physician. Paula Lizama MD, PhD CHART COPY DO NOT DISCARD . Patient [...] . Last clinic note 05/17/2024 per Romina Kahn C.N.P. 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 SBRT to RUL nodule 02/01/24. Large right pneumothorax PLAN: - return for TCI with Dr Lizama Rad/Onc 05/20/2024 Elias Goss MD ASSESSMENT AND PLAN: 73 year old man with: 1. Enlarging/hypermetabolic/cavitary RUL nodule c/w NSCLC, [id number], Stage IA3, s/p SBRT 02/01/24 [3400 cGy/1 fx] 2. Hx of SCCa of the RLL, s/p RA-right lower lobectomy/MLND 11/15/23 [2.4 cm focus of SCCa, margins-, 0/12 LN; pT1cN0 cM0] 3. Hx of adenocarcinoma of the prostate, s/p ADT/EBRT completed 01/15/21, PSA 0.08 ng/mL Mr. Sanchez is doing well. Was to have a chest tube placed due to worsening pneumothorax, this was held for decision-making, possible VATS (per patient). CT 05/08/24 shows response at RUL nodule treated with SBRT on my review. He is to see Dr. Patterson on 05/22/24 (medical oncology) and Dr. Garrett on 06/13/24 (pulmonology). I asked he let my office know when his next CT is scheduled, so I may review results. Today's visit 06/07/2024: CXR: 06/07/2024 in process . PFT: 05/08/2024 FEV1 (L) 2.77 2.02 3.47 1.82 65 1.80 0 DLCOunc (ml/min/mmHg) 24.73 14.80 34.67 16.24 65 6MW: 10/17/2023 Distance Walked (meters) Distance Walked (feet) Male Predicted Walk Distance (feet) Male Lower Limit of Normal (feet) Male % Predicted Total Duration Of The Stops (seconds) 297.18 975 1615.81 1113.81 60.3 -- Cardiac Studies: Nuclear Medicine Stress Test CONCLUSIONS: 1. SPECT Perfusion Study: Normal. 2. [...] Rest IR LVEF % 65 69 EK05/10/[address] AND T WAVE ABNORMALITY PROLONGED QT INTERVAL OR TU FUSION, CONSIDER HYPOKALEMIA ABNORMAL ECG Clinical Staging: Risk, benefits, and alternatives discussed per Paula Lizama M.D. H&P 06/07/[address] [employer] CCT and CXR Eliane Onofre RN PHYSICAL EXAM BP 124/80 Pulse 75 Temp (Src) 98.6 (Oral) Resp 14 Ht 5' 10 (1.78m) Wt 168 lb 9.3 oz (76.5kg) SpO2 97% BMI 24.19 kg/(m^2). Constitutional: No distress HEENT: EOM's intact Resp: equal rise and fall of bilateral chest monahan Cardiovascular: Pulses Radial 2+ GI: Soft and Non-tender Integumentary: Warm Musculoskeletal: No deformities Neurological/Psychiatric: Oriented to time, place & person Additional systems reviewed: No additional systems reviewed PATIENT EDUCATION The following was evaluated: Motivation To Learn: Interested Family/Significant Other Support: High - Very involved in pt care Cognitive Ability: Alert and oriented Patient Learns Best By: Multiple Methods The Following Influencing Factors Were Barriers To This Education Session: No barriers Health Care Coordinator Present: Not Applicable The Following Physical Limitations Were Barriers To This Education Session: None Instruction Provided To: Patient & Family Discipline: Nursing Learning Topic: Pre-op Instructions given Patient Evaluation: Verbalizes understanding Follow Up Plan: Patient/Family will call us with questions Supplemental Material Given: TCI Patient Instructions: Thoracic Surgery Teach completed, topic: hibiclens/listerine/bactroban Instructed By Eliane Onofre RN. In Department of THORACIC CLINIC. documented in this encounter [facility] 06-07-2024 History of Present illness Narrative Cardiothoracic Anesthesiology Preoperative Assessment Service Date: 06/07/2024 [...] 2020: Prostate cancer (HCC) Comment: xrt at [facility] [place] No date: Smoker Comment: former quit 2021 [...] COVID-19 vaccine, age 12+ yr, 2022- season (PFIZER-BIONTHuodongxing) 12/28/2021 Imm Admin: COVID-19 vaccine, age 12+ yr, bivalent (Ability DynamicsBIONTHuodongxing) Only the first 3 history entries have [...] hyperlipidemia Prostate cancer (HCC) 2020 xrt at [facility] [place] Smoker former quit 2021 Spinal stenosis of [...] 05/17/24 2:22 PM Impression IMPRESSION: See result. Quantitative Equity Head: IMMANUEL Transcribe Date/Time: May 17 2024 3:17P [...] No pneumothorax. Cardiomediastinal silhouette: Stable cardiac silhouette. Quantitative Equity Head: PSCHerbert Transcribe Date/Time: May 12 2024 9:59A Dictated [...] right upper lobe spiculated nodule with cavitations. Quantitative Equity Head: PSCB Transcribe Date/Time: May 11 2024 3:35P Dictated [...] is normal. EF = 55 5% (2D biplane) Normal left ventricular diastolic [...] * * * Assessment No problem-specific Assessment & Plan notes found for this encounter. ANESTHESIA [...] adequate. Short neck: no. Thick neck: no Chase present: yes (large chase) DENTAL Dentures, upper: complete. Dentures, lower: partial. II - ANESTHESIA PLAN ASA Score: 3 Anesthetic Plan: general Airway type: ETT Beta Sumaya Monitoring Plan Post Procedure Analgesic Plan Informed Consent Anesthetic risks, benefits, alternatives, personnel and consent discussed: yes. Patient / Responsible Libertarian agrees to proceed: yes Patient / Surrogate agrees to blood products: Yes Discussed the possibility of lip / dental damage: yes Instructions Given to Patient: Instructions located in the after visit summary. Patient given verbal and written preop instructions and voices comprehension and compliance. Signature: Michelle Kemp MD Patient Name: Stevie Sanchez Date: June 07, 2024 Time: 9:57 AM Pager/Contact #: documented in this encounter [facility] 06-07-2024 Note [facility] 06-07-2024 Note [facility] 06-07-2024 History of Present illness Narrative Radiology Service Progress Note PATIENT NAME: Stevie Sanchez DATE OF SERVICE: June 07, 2024 TIME: [...] PATIENT PRESENTS WITH AN IMPLANTABLE OR ATTACHED BURRER MARKER AXLE: No RADIOLOGY DEPARTMENT: General X-ray: Exam(s) Completed: Chest X-Ray PERIPHERAL IV DATA: Not applicable SIGNED BY: RT ALEXANDRA(R) June 07, 2024 9:55 AM documented in this encounter [facility] 06-07-2024 Note [facility] 06-07-2024 Note [facility] 05-25-2024 Note [facility] 05-25-2024 History of Present illness Narrative Confirmed surgical date of for with TCI [...] meds starting 7 days prior to surgery. Lincoln Rowland RN Thoracic NPM documented in this encounter [facility] 05-23-2024 Telephone encounter Note Patient calls for medication refill today. PCP is Praful Su M.D.. Patient was last seen April 25, 2024. Last Blood work was May 12, 2024. Requested Prescriptions Pending Prescriptions Disp Refills amLODIPine (NORVASC) 5 mg tablet 90 tablet 3 Sig: Take 1 tablet by mouth once daily. Glucose (mg/dL) Date Value 05/12/2024 104 02/08/2021 [...] Calcium, Total (mg/dL) Date Value 05/12/2024 9.3 Lab Results Component Value Date HBA1C 6.1 05/02/2023 HBA1C 5.9 03/14/2022 HBA1C 6.0 02/08/2021 HBA1C 5.7 01/01/2020 HBA1C 5.9 05/14/2018 INR Date Value Ref Range Status 05/10/2024 1.1 0.9 - 1.3 Final Comment: Vitamin K Antagonist (VKA) Therapeutic Range: INR 2 to 3 (Target INR of 2.5) Note: For patients treated with VKA drugs, such as warfarin, the [employer] 2012 Guideline recommends [...] Chest 2012, 141:7S-47S Vicki RA, et al. JACC 2017, 70: 252-289 Cholesterol, Total (mg/dL) Date Value 05/07/2024 154 02/08/2021 197 HDL Cholesterol (mg/dL) Date Value 05/07/2024 61 02/08/2021 47 LDL Cholesterol (mg/dL) Date Value 05/07/2024 67 02/08/2021 99 Triglyceride (mg/dL) Date Value 05/07/2024 129 02/08/2021 253 No results found for: [facility] Pharmacy has been captured: Yes. Patient prefers: [facility]. Yolanda Pastor LPN [facility] 05-23-2024 Miscellaneous Notes Patient calls for medication refill today. PCP is Praful Su M.D.. Patient was last seen April 25, 2024. Last Blood work was May 12, 2024. Requested Prescriptions Pending Prescriptions Disp Refills amLODIPine (NORVASC) 5 mg tablet 90 tablet 3 Sig: Take 1 tablet by mouth once daily. Glucose (mg/dL) Date Value 05/12/2024 104 02/08/2021 [...] Calcium, Total (mg/dL) Date Value 05/12/2024 9.3 Lab Results Component Value Date HBA1C 6.1 05/02/2023 HBA1C 5.9 03/14/2022 HBA1C 6.0 02/08/2021 HBA1C 5.7 01/01/2020 HBA1C 5.9 05/14/2018 INR Date Value Ref Range Status 05/10/2024 1.1 0.9 - 1.3 Final Comment: Vitamin K Antagonist (VKA) Therapeutic Range: INR 2 to 3 (Target INR of 2.5) Note: For patients treated with VKA drugs, such as warfarin, the [employer] 2012 Guideline recommends [...] 2012, 141:7S-47S Vicki RA, et al. [facility] 2017, 70: 252-289 Cholesterol, Total (mg/dL) Date Value 05/07/2024 154 02/08/2021 197 HDL Cholesterol (mg/dL) Date Value 05/07/2024 61 02/08/2021 47 LDL Cholesterol (mg/dL) Date Value 05/07/2024 67 02/08/2021 99 Triglyceride (mg/dL) Date Value 05/07/2024 129 02/08/2021 253 No results found for: [facility] Pharmacy has been captured: Yes. Patient prefers: [facility]. Yolanda Pastor LPN Patient phones requesting refills as follows: Requested Prescriptions Pending Prescriptions Disp Refills amLODIPine (NORVASC) 5 mg tablet 90 tablet 3 Sig: Take 1 tablet by mouth once daily. Please review and advise. Oc Dowling documented in this encounter [facility] 05-23-2024 Telephone encounter Note Patient phones requesting refills as follows: Requested Prescriptions Pending Prescriptions Disp Refills amLODIPine (NORVASC) 5 mg tablet 90 tablet 3 Sig: Take 1 tablet by mouth once daily. Please review and advise. Oc Dowling [facility] 05-22-2024 Telephone encounter Note Called pt and he states that vascular is going to be doing a surgery in his chest. He is waiting for the call now to schedule. He declined to schedule apt at this time with this office. He will call once surgery is completed. [facility] 05-22-2024 Miscellaneous Notes Called pt and he states that vascular is going to be doing a surgery in his chest. He is waiting for the call now to schedule. He declined to schedule apt at this time with this office. He will call once surgery is completed. Patient called to cancel his appointment today 05/[address] Patterson because he is having another lung surgery in the next couple of weeks so there is no point in meeting with Dr. Patterson because no one has any answers yet. He will rescheduled next month. Thank you, Debbie documented in this encounter [facility] 05-22-2024 Telephone encounter Note Patient called to cancel his appointment today 05/[address] Patterson because he is having another lung surgery in the next couple of weeks so there is no point in meeting with Dr. Patterson because no one has any answers yet. He will rescheduled next month. Thank you, Debbie [facility] 05-20-2024 History of Present illness Narrative Images from the original note were not included. I have communicated my name and active licensure. The patient's identity and physical location were verified at the time of this visit. Either the patient or their legal market survey representative has been informed of the risks and benefits of -- and alternatives to -- treatment through a remote evaluation and consents to proceed with the evaluation remotely. Radiation Oncology - Follow Up Note PATIENT NAME: Stevie Sanchez PATIENT DIAGNOSIS: 73 year old man with: Enlarging/hypermetabolic/cavitary RUL nodule c/w NSCLC, [id number], Stage IA3, s/p SBRT 02/01/24 [3400 cGy/1 fx] Hx of SCCa of the RLL, s/p RA-right lower lobectomy/MLND 11/15/23 [2.4 cm focus of SCCa, margins-, 0/12 LN; pT1cN0 cM0] Hx of adenocarcinoma of the prostate, s/p ADT/EBRT completed 01/15/21, PSA 0.08 ng/mL Thoracic surgeon: Paula Lizama MD, PhD INTERVAL HISTORY: Mr. Sanchez has a history of prostate cancer, diagnosed [...] bronchoplasty closure, mediastinal/hilar LND on 11/15/23 (Dr. Lizama). Pathology showed a 2.4 cm focus of [...] with: 1. Enlarging/hypermetabolic/cavitary RUL nodule c/w NSCLC, [id number], Stage IA3, s/p SBRT 02/01/24 [3400 cGy/1 fx] 2. Hx of SCCa of the RLL, s/p RA-right lower lobectomy/MLND 11/15/23 [2.4 cm focus of SCCa, margins-, 0/12 LN; pT1cN0 cM0] 3. Hx of adenocarcinoma of the prostate, s/p ADT/EBRT completed 01/15/21, PSA 0.08 ng/mL Mr. Sanchez is doing well. Was to have a chest tube placed due to worsening pneumothorax, this was held for decision-making, possible VATS (per patient). CT 05/08/24 shows response at RUL nodule treated with SBRT on my review. He is to see Dr. Patterson on 05/22/24 (medical oncology) and Dr. Garrett on 06/13/24 (pulmonology). I asked he let my office know when his next CT is scheduled, so I may review results. I spent 10 minutes in the visit in counseling / coordination of care. Signed by: Elias Goss MD cc: MD Kevin Nicholas MD Daniel Raymond, MD documented in this encounter [facility] 05-20-2024 Note [facility] 05-17-2024 History of Present illness Narrative Images from the original note were not included. Part of this note was copied from previous note, all content has been individually reviewed, updated as necessary, and thoroughly reviewed. [facility] - OUTPATIENT THORACIC SURGERY CLINIC NOTE PT NAME: Stevie Sanchez [facility] NO: [id number] THORACIC SURGEON: Paula Lizama M.D. DATE OF SERVICE: 05/17/2024 PRINCIPAL DX: [...] the inked margin) were reviewed at the [facility] thoracic pathology consensus conference on 11/23/23. Dr. Fauzia Oseguera, Dr. Alexis Altman, Dr. Fitch and Dr. Romina Bryan were present and concurred with this interpretation. The status of the margins was discussed with Dr. Lizama by email on 11/23/23 and discussed at [...] tissue or parenchymal margin; discussed with Dr. Lizama on 11/23/23. The bronchial and vascular margins [...] 1, 8th Ed.) it is the managing physician s responsibility to establish the final pathologic stage based upon all pertinent information, including but potentially not limited to this pathology report. pT Category pT1c pN Category pN0 ADDITIONAL FINDINGS Additional Findings Inflammation: Acute and organizing bronchopneumonia Post-obstructive changes REASON FOR VISIT: Follow up after recent hospitalization HPI: Stevie Sanchez is a 73 year old male ex-smoker [...] intercostal and phrenic nerve block by Dr Lizama. Noted an abscess. He was discharged 11/19/23. He had SBRT to right upper lobe nodule 02/01/24. PHYSICAL EXAM: VITAL SIGNS: BP 110/73 Pulse 82 Temp 36.9 C (98.5 F) (Oral) Ht 177.8 cm (5' 10) Wt 77 kg (169 lb 11.2 oz) SpO2 96% BMI 24.35 kg/m Room air 174 lb Incision location: Right [...] and soft tissues: Unremarkable. INTERVAL HISTORY: Stevie Sanchez returns to clinic today following recent hospitalization. He denies any cough, wheeze or SOB. CXR shows large right base hyropneumothorax. Dr Lizama is aware and states he wishes to bring Mr Sanchez back for right chest exploration with possible robotic, possible thoracotomy, possible lung resection. Dr Lizama's NPM will reach out to Mr Sanchez with the surgical date which will most likely be in a month. 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 SBRT to RUL nodule 02/01/24. Large right pneumothorax PLAN: - return for TCI with Dr Dl Kahn APRN.SUPERVISOR STRIPPING documented in this encounter [facility] 05-17-2024 Note [facility] 05-17-2024 History of Present illness Narrative Radiology Service Progress Note PATIENT NAME: Stevie Sanchez DATE OF SERVICE: May 17, 2024 TIME: [...] PATIENT PRESENTS WITH AN IMPLANTABLE OR ATTACHED BURRER MARKER AXLE: No RADIOLOGY DEPARTMENT: General X-ray: Exam(s) Completed: Chest X-Ray PERIPHERAL IV DATA: Not applicable SIGNED BY: RT Alexandra(R) May 17, 2024 2:22 PM documented in this encounter [facility] 05-17-2024 Note [facility] 05-13-2024 Note [facility] 05-13-2024 History of Present illness Narrative Transition Care Management (TCM) Initial Outreach PCP Update / Actionable Items Navigation Team Update / Actionable Items: Readmission risk 11 = Medium risk. Please schedule PCP within 14 days Patient to have Thoracic Follow up with Dr Lizama on 05/17/24, please assist with the date if not managed by the team yet. Patient appreciates your assistance, and is [place] on the phone. [facility] TCM Home Visit Referral Source of Stratification: [facility] Hospital Admission Status: Discharged Readmission Risk Score: 11 Patient's zip code: [address] Is zip code within program service area: Y Patient meets program referral criteria: No Patient does not qualify for High Risk TCM Home Visit program due to: Readmission Risk Score does not meet criteria Disposition: Patient does not qualify for [facility], will provide TCM outreach follow-up for 30-days Patient Source: In-Network Discharge Initial outreach: TCM discharge report Outreach Summary: Patient reports he is feeling better, he underwent a chest tube insertion for a pneumothorax identified on a CT scan 05/08/24. No chest tube was inserted in his hospitalization, but patient reports plans to discuss the need for a procedure when he sees Dr Lizama 05/17/24 (VATs) Patient with no acute symptoms or concerns at this time. Verbalized good understanding of medication changes, prescriptions filled per order and in the home Patient discharged from [facility] Discharge date: 05/12/24 Admitted for: Pneumothorax Readmission Risk: 11 Value-Based Contract: Russ HARKINS Contact: Contact made with patient: Yes Hi, my name is Darcie Whitten RN and I am calling from the [facility] on behalf of your Primary Care [...] I will send your request to a explosive operator supervisor who will contact and assist you with [...] for Care Where to Go for Care Darcie Whitten RN May 13, 2024 10:33 AM documented in this encounter [facility] 05-12-2024 Note [facility] 05-11-2024 Note [facility] 05-11-2024 Note HNO ID: [id number] Author: NOTE, INTERFACE, ? Service: ? Author Type: ? Type: Progress Notes Filed: 05/11/2024 02:30 Note Text: Epic Scheduled Downtime: 05/11/2024 1:00:00 AM to 05/11/2024 2:11:00 AM [facility] 05-09-2024 Note [facility] 05-09-2024 History of Present illness Narrative [facility] Department of Thoracic Surgery VIRTUAL VIDEO VISIT ESTABLISHED OUTPATIENT VISIT SERVICE DATE: 05/09/2024 Patient: Stevie Sanchez SERVICE TIME: 1:00 : 1950 This is a virtual video visit. It required patient-provider interaction for the medical decision making as documented below. Stevie Sanchez has consented to this video encounter. I have communicated my name and active licensure. The patient's identity and physical location were verified at the time of this visit. Either the patient or their legal market survey representative has been informed of the risks and benefits of -- and alternatives to -- treatment through a remote evaluation and consents to proceed with the evaluation remotely. PAST MEDICAL HISTORY Diagnosis Date Abdominal aortic aneurysm (HCC) without rupture Elevated PSA Hearing loss HTN (hypertension) Lumbosacral neuritis Malignant neoplasm of prostate (HCC) Other and unspecified hyperlipidemia Prostate cancer (HCC) 2020 xrt at [facility] [place] Smoker former quit 2021 Spinal stenosis of [...] management and care of this patient. Romina Kahn APRN.SUPERVISOR STRIPPING May 09, 2024 Part of this note was copied from previous note, all content has been individually reviewed, updated as necessary, and thoroughly reviewed. [facility] - OUTPATIENT THORACIC SURGERY CLINIC NOTE PT NAME: Stevie Sanchez [facility] NO: [id number] THORACIC SURGEON: Paula Lizama M.D. DATE OF SERVICE: 05/09/2024 PRINCIPAL DX: [...] the inked margin) were reviewed at the [facility] thoracic pathology consensus conference on 11/23/23. Dr. Fauzia Oseguera, Dr. Alexis Altman, Dr. Fitch and Dr. Romina Bryan were present and concurred with this interpretation. The status of the margins was discussed with Dr. Lizama by email on 11/23/23 and discussed at [...] tissue or parenchymal margin; discussed with Dr. Lizama on 11/23/23. The bronchial and vascular margins [...] 1, 8th Ed.) it is the managing physician s responsibility to establish the final pathologic stage based upon all pertinent information, including but potentially not limited to this pathology report. pT Category pT1c pN Category pN0 ADDITIONAL FINDINGS Additional Findings Inflammation: Acute and organizing bronchopneumonia Post-obstructive changes REASON FOR VISIT: Post-operative visit HPI: Stevie Sanchez is a 73 year old male ex-smoker [...] intercostal and phrenic nerve block by Dr Lizama. Noted an abscess. He was discharged 11/19/23. [...] IMAGING/TESTS: CT Chest 05/08/24: INTERVAL HISTORY: Stevie Sanchez is seen via a virtual visit today [...] decrease in PFTs. Will discuss with Dr Lizama. He has follow up with Dr Goss in radiation oncology on 05/20, Dr Patterson in oncology 05/22. 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 SBRT to RUL nodule 02/01/24. Increasing right pneumothorax PLAN: - return in [address] chest, PFTs - oncology management with Dr Patterson, f/u 05/22/24 - radiation consult with Dr Goss 05/20/24 - pulmonary management with Dr Garrett 06/13/24 Romina Kahn APRN.SUPERVISOR STRIPPING Addendum 05/09/2024 Dr Lizama responded to my query after evaluation of the CT scan. He wishes for Mr Sanchez to come in to be admitted to [facility] for placement of a right chest pigtail catheter. Sister Elisabeth called and notified per patient's instructions. Admission team notified as well. Fay Araya DNP notified of plan. Romina Kahn APRN.SUPERVISOR STRIPPING documented in this encounter [facility] 05-08-2024 History of Present illness Narrative Radiology Service Progress Note PATIENT NAME: Stevie Sanchez DATE OF SERVICE: May 08, 2024 TIME: [...] PATIENT PRESENTS WITH AN IMPLANTABLE OR ATTACHED BURRER MARKER AXLE: No RADIOLOGY DEPARTMENT: CT; Exam(s) Completed: Chest PERIPHERAL IV DATA: Site assessment: Clean,Dry and Intact, Site disposition Discontinued SIGNED BY: TECHNOLOGIST Bettye May 08, 2024 2:12 PM documented in this encounter [facility] 05-08-2024 Note HNO ID: [id number] Author: DEN GARCIA TECHNOLOGIST Service: Radiology Author Type: Technologist Type: Progress Notes Filed: 05/08/2024 14:20 Note Text: Radiology Service Progress Note PATIENT NAME: Stevie Sanchez DATE OF SERVICE: May 08, 2024 TIME: [...] PATIENT PRESENTS WITH AN IMPLANTABLE OR ATTACHED BURRER MARKER AXLE: No RADIOLOGY DEPARTMENT: CT; Exam(s) Completed: Chest PERIPHERAL IV DATA: Site assessment: Clean,Dry and Intact, Site disposition Discontinued SIGNED BY: TECHNOLOGIST Bettye May 08, 2024 2:12 PM [facility] 05-08-2024 Nurse Note Radiology Service Progress Note DATE OF SERVICE: [...] Value Ref Range Status 05/07/2024 97 >=60 mL/min/1.73m Final Comment: Estimated Glomerular Filtration Rate (eGFR) [...] SIGNATURE: Irish Amor RN PATIENT NAME: Stevie Sanchez DATE: May 08, 2024 TIME: 2:[address] [facility] 05-08-2024 Nurse Note Radiology Service Progress Note DATE OF SERVICE: [...] Value Ref Range Status 05/07/2024 97 >=60 mL/min/1.73m Final Comment: Estimated Glomerular Filtration Rate (eGFR) [...] SIGNATURE: Irish Amor RN PATIENT NAME: Stevie Sanchez DATE: May 08, 2024 TIME: 2:07 PM documented in this encounter [facility] 05-08-2024 Note [facility] 05-08-2024 History of Present illness Narrative PULM FUNCTION: Provider: Romina Kahn APRN.SUPERVISOR STRIPPING Assisting Tech: Srinivasan Deng MEDICAL RECEPTION Spirometry w/BD: 1 DLCO: 1 documented in this encounter [facility] 05-07-2024 Miscellaneous Notes Patient returned call and message was relayed. Patient verbalized understanding of the message. No questions or further action at this time Left message for patient to give office a call back. Darshana Dunn LPN Notify patient that stool test for blood is negative. documented in this encounter [facility] 05-07-2024 Telephone encounter Note Patient returned call and message was relayed. Patient verbalized understanding of the message. No questions or further action at this time [facility] 05-07-2024 Telephone encounter Note Left message for patient to give office a call back. Darshana Dunn LPN [facility] 05-07-2024 Telephone encounter Note Notify patient that stool test for blood is negative. [facility] 04-25-2024 Note [facility] 04-25-2024 History of Present illness Narrative SUBJECTIVE: Stevie Sanchez is a 73 year old male Patient [...] Size: Regular Adult) Pulse 76 Temp 36.4 C (97.5 F) (Temporal) Wt 80.1 kg (176 lb 9.4 oz) BMI 27.66 kg/m General Appearance: Well appearing, alert, in no [...] REVIEW OF TESTS: Labs Praful Su MD documented in this encounter [facility] 03-05-2024 Telephone encounter Note Patient received message to call to schedule a phone call on 05/[address] Goss, but he is already scheduled. [facility] 03-05-2024 Miscellaneous Notes Patient received message to call to schedule a phone call on 05/[address] Goss, but he is already scheduled. LVM for return call to schedule; Please schedule telephone visit (follow-up) for the week of 05/20/[address] Goss documented in this encounter [facility] 03-05-2024 Telephone encounter Note Opened in error [facility] 03-05-2024 Miscellaneous Notes Opened in error documented in this encounter [facility] 03-05-2024 Telephone encounter Note LVM for return call to schedule; Please schedule telephone visit (follow-up) for the week of 05/20/[address] Goss [facility] 02-29-2024 Telephone encounter Note LVM for return call to schedule: Please arrange for telephone follow-up in the week of 05/20/24. [facility] 02-29-2024 Miscellaneous Notes LVM for return call to schedule: Please arrange for telephone follow-up in the week of 05/20/24. documented in this encounter [facility] 02-29-2024 Note [facility] 02-29-2024 History of Present illness Narrative POPULATION HEALTH NAVIGATION OUTREACH Action/FYI Topic Due [...] Treatment - End Outreach Navigation Signature: Cristopher Carrera MA February 29, 2024 11:45 AM documented in this encounter [facility] 02-29-2024 History of Present illness Narrative Images from the original note were not included. I have communicated my name and active licensure. The patient's identity and physical location were verified at the time of this visit. Either the patient or their legal market survey representative has been informed of the risks and benefits of -- and alternatives to -- treatment through a remote evaluation and consents to proceed with the evaluation remotely. Radiation Oncology - Follow Up Note PATIENT NAME: Stevie Sanchez PATIENT DIAGNOSIS: 73 year old man with: Enlarging/hypermetabolic/cavitary RUL nodule c/w NSCLC, [id number], Stage IA3, s/p SBRT 02/01/24 [3400 cGy/1 fx] Hx of SCCa of the RLL, s/p RA-right lower lobectomy/MLND 11/15/23 [2.4 cm focus of SCCa, margins-, 0/12 LN; pT1cN0 cM0] Hx of adenocarcinoma of the prostate, s/p ADT/EBRT completed 01/15/21, PSA 0.08 ng/mL Thoracic surgeon: Paula Lizama MD, PhD INTERVAL HISTORY: Mr. Sanchez has a history of prostate cancer, diagnosed [...] bronchoplasty closure, mediastinal/hilar LND on 11/15/23 (Dr. Lizama). Pathology showed a 2.4 cm focus of [...] with: 1. Enlarging/hypermetabolic/cavitary RUL nodule c/w NSCLC, [id number], Stage IA3, s/p SBRT 02/01/24 [3400 cGy/1 fx] 2. Hx of SCCa of the RLL, s/p RA-right lower lobectomy/MLND 11/15/23 [2.4 cm focus of SCCa, margins-, 0/12 LN; pT1cN0 cM0] 3. Hx of adenocarcinoma of the prostate, s/p ADT/EBRT completed 01/15/21, PSA 0.08 ng/mL Mr. Sanchez is doing well. CT is scheduled for 05/08/24. I will arrange for telephone follow-up in the week of 05/20/24. Signed by: Elias Goss MD cc: MD Kevin Nicholas MD Daniel Raymond, MD documented in this encounter [facility] 02-29-2024 Note [facility] 02-05-2024 Note [facility] 02-05-2024 History of Present illness Narrative STEVIE SANCHEZ [id number] 02/05/2024 [facility] Department of Radiation Oncology [facility] RADIATION ONCOLOGY: COMPLETION NOTE DATE OF SIMULATION: 01/16/2024 DATES OF TREATMENT: 02/01/2024 TREATMENT MACHINE: [employer] TREATMENT AREA: RUL nodule SBRT DIAGNOSIS: 73 year old man with: 1.Enlarging/hypermetabolic/cavitar y RUL nodule c/w NSCLC, [id number], Stage IA3 2.Hx of SCCa of the [...] MD Kevin Nicholas MD Daniel Raymond, MD documented in this encounter [facility] 02-05-2024 Note [facility] 02-02-2024 Note [facility] 02-02-2024 History of Present illness Narrative POPULATION HEALTH NAVIGATION OUTREACH Action/FYI Patient is on (Community Monitoring) List : Patient due for: [facility] - ED Follow up A follow-up appointment is not noted in patient's record. We are forwarding this patient to Network Navigation to schedule a follow-up appointment. ED After Visit Summary (XL Font) (Printed 01/31/2024) Follow-Ups: Call Praful Su MD (Family Medicine); As needed [facility] 01/31/24 Dx: Foreign Body of Right ear 1st Attempt: Left message for patient to call back. Sent Sensory Analyticst message. Reason for Outreach Community Monitoring/Network Navigator Pools & Phone Line: [facility] Patient Contacted: Unable or unnecessary to reach patient: Left message MyChart message sent Navigation Signature: Bertha Monteiro MA February 02, 2024 9:41 AM ACM SOLE RN Patient identified by name [...] Health Navigation: PCP alignment/verification. Router to [facility] [[id number]] Contact made with patient: No, Chart review only. Signature: Tayler Hernandez RN documented in this encounter [facility] 02-02-2024 Note [facility] 02-01-2024 Note [facility] 02-01-2024 History of Present illness Narrative SOCIAL WORK FOLLOW UP NOTE: CANCER CENTER Date of service: January [facility] Continuing Education Specialist (SW) Melita Palmer met with Stevie Sanchez after his radiation treatment. Stevie has been diagnosed with non-small cell lung cancer, stage IA. SW introduced herself and reviewed [facility] supportive services, community transportation, and copay assistance if needed. Stevie's sister brought him to his 1 fraction radiation treatment today. SW provided the Patient Services sheet, and the Cancer Answer Line. SW also provided information on [facility], and the [facility] [facility]. Advance Care Planning Goals of Care Date of Discussion: 02/01/2024 DIscussion Participants: Stevie Sanchez Clinical: Stevie has completed advanced directives, and his sister is listed as the agent. Patient/Family/Decision Makers: Elisabeth Menjivar ([facility]) [phone] (M) In this encounter: Patient has completed advanced directives in the EMR. SIGNATURE: RINA Jordan PATIENT NAME: Stevie Sanchez DATE: February 01, 2024 TIME: 12:36 PM PAGER/CONTACT #: Stevie denied having psychosocial needs at this time. SW asked for a call to if needs [...] in Care Team tab: Yes RINA Jordan documented in this encounter [facility] 02-01-2024 History of Present illness Narrative Radiation Oncology - On Treatment Review (OTR) Note PATIENT NAME: Stevie Sanchez PATIENT DIAGNOSIS: 73 year old man with: Enlarging/hypermetabolic/cavitary RUL nodule c/w NSCLC, [id number], Stage IA3 Hx of SCCa of the RLL, s/p RA-right lower lobectomy/MLND 11/15/23 [2.4 cm focus of SCCa, margins-, 0/12 LN; pT1cN0 cM0] Hx of adenocarcinoma of the prostate, s/p ADT/EBRT completed 01/15/21, PSA 0.08 ng/mL Thoracic surgeon: Paula Lizama MD, PhD COURSE: definitive AREA TREATED: RUL CURRENT DOSE: 3400 cGy in 1 fx PLANNED DOSE: 3400 cGy in 1 fx SUBJECTIVE: Mr. Sanchez reports his energy/appetite are ok. No pain. [...] guidance. CXR ordered; I will contact Laney Kahn NP in Dr. Lizama's office for further input. Elias Goss MD documented in this encounter [facility] 02-01-2024 Note [facility] 01-19-2024 Telephone encounter Note 1st attempt to reach out. Will try again Monday lvm [facility] 01-19-2024 Miscellaneous Notes 1st attempt to reach out. Will try again Monday lvm Patient needs a 4 week post radiation phone call follow up. His last treatment is on 02-01-24 documented in this encounter [facility] 01-19-2024 Telephone encounter Note Patient needs a 4 week post radiation phone call follow up. His last treatment is on 02-01-[address] [facility] 01-16-2024 History of Present illness Narrative STVEIE SANCHEZ [id number] 01/16/2024 [facility] Department of Radiation Oncology [facility] RADIATION ONCOLOGY SIMULATION NOTE DATE OF SIMULATION: 01/16/2024 MACHINE: Kabbage CT DIAGNOSIS: Malignant neoplasm of prostate AREA: [...] Electronically Signed Elias Goss M.D. 43:04 PM documented in this encounter [facility] 01-16-2024 History of Present illness Narrative STEVIE SANCHEZ [id number] 01/16/2024 [facility] Department of Radiation Oncology Treatment Planning Note For reasons stated in the consult note, Stevie Sanchez is a candidate for radiation therapy. Based on review and interpretation of the relevant diagnostic studies together with the exam findings, Stevie Sanchez was simulated on 01/16/2024 at which time [...] Electronically Signed Elias Goss M.D. 1:02 AM documented in this encounter [facility] 01-16-2024 Note [facility] 01-16-2024 Note [facility] 01-11-2024 Nurse Note Radiation Therapy - Nursing Note (Consult) PATIENT NAME: Stevie Sanchez PATIENT January 11, 2024 [facility] FACILITY/LOCATION: [place] Chief Complaint: lung nodule Reason for visit: Consult. Referring physician: Internal provider Dr. Patterson Subjective Data: I do have soreness where the incision is since my lung surgery . I will get SOB with over exertion and cough noted at times Additional Data Do you want to see a Bean Snapper? No Are you interested in information about [...] yes 2020 for prostate cancer completed at [facility] PREVIOUS HORMONAL THERAPY: no NURSING [...] A person with a Durable Power of Pipe Setter for Healthcare (DPOA-H) has been appointed - [...] verbalized understanding. SIGNED by: Mya Hill RN [facility] 01-11-2024 Nurse Note Radiation Therapy - Nursing Note (Consult) PATIENT NAME: Stevie Sanchez PATIENT January 11, 2024 [facility] FACILITY/LOCATION: [place] Chief Complaint: lung nodule Reason for visit: Consult. Referring physician: Internal provider Dr. Patterson Subjective Data: I do have soreness where the incision is since my lung surgery . I will get SOB with over exertion and cough noted at times Additional Data Do you want to see a Bean Snapper? No Are you interested in information about [...] yes 2020 for prostate cancer completed at [facility] PREVIOUS HORMONAL THERAPY: no NURSING [...] A person with a Durable Power of Pipe Setter for Healthcare (DPOA-H) has been appointed - [...] verbalized understanding. SIGNED by: Mya Hill RN documented in this encounter [facility] 01-11-2024 History of Present illness Narrative Images from the original note were not included. Radiation Oncology - New Patient/Consult Note PATIENT NAME: Stevie Sanchez PATIENT REQUESTING PROVIDER: Kevin Patterson MD DIAGNOSIS: 73 year old man with: Enlarging/hypermetabolic/cavitary RUL nodule c/w NSCLC, [id number], Stage IA3 Hx of SCCa of the [...] to requesting physician via US mail. Mr. Sanchez has a history of prostate cancer, diagnosed [...] bronchoplasty closure, mediastinal/hilar LND on 11/15/23 (Dr. Lizama). Pathology showed a 2.4 cm focus of [...] hyperlipidemia Prostate cancer (HCC) 2020 xrt at [facility] [place] Smoker former quit 2021 Spinal stenosis of [...] wine per week Drug use: No Residence: [place], [place] Occupation: [employer] COMPLETE REVIEW OF SYSTEMS: GENERAL: Negative for [...] kg (177 lb 3.2 oz) BMI 27.75 kg/m Is the patient having any pain? Mild, [...] with: 1. Enlarging/hypermetabolic/cavitary RUL nodule c/w NSCLC, [id number], Stage IA3 2. Hx of SCCa of the RLL, s/p RA-right lower lobectomy/MLND 11/15/23 [2.4 cm focus of SCCa, margins-, 0/12 LN; pT1cN0 cM0] 3. Hx of adenocarcinoma of the prostate, s/p ADT/EBRT completed 01/15/21, PSA 0.08 ng/mL Mr. Sanchez is a candidate for stereotactic body radiotherapy (SBRT) for his right upper lobe nodule consistent with primary lung cancer. The risks, benefits, rationale, alternatives, as well as limitations of SBRT was discussed with Mr. Sanchez. Additionally, information was given regarding the various personnel who would be involved in the procedures and imaging necessary in the delivery of SBRT. Mr. Sanchez indicated understanding of this discussion, all questions were answered and agreement was made to proceed with SBRT. An informed consent document for SBRT was signed by Mr. Sanchez and myself. An order was placed for [...] with more than 50% of the total [id number]-br-fqun time of the visit in counseling / coordination of care. Signed by: Elias Goss MD cc: MD Kevin Nicholas MD Daniel Raymond, MD documented in this encounter [facility] 01-11-2024 Note [facility] 01-08-2024 Note [facility] 01-08-2024 History of Present illness Narrative Images from the original note were not included. Part of this note was copied from previous note, all content has been individually reviewed, updated as necessary, and thoroughly reviewed. [facility] - OUTPATIENT THORACIC SURGERY CLINIC NOTE PT NAME: Stevie Sanchez [facility] NO: [id number] THORACIC SURGEON: Paula Lizama M.D. DATE OF SERVICE: 01/08/2024 PRINCIPAL DX: [...] the inked margin) were reviewed at the [facility] thoracic pathology consensus conference on 11/23/23. Dr. Fauzia Oseguera, Dr. Alexis Altman, Dr. Fitch and Dr. Romina Bryan were present and concurred with this interpretation. The status of the margins was discussed with Dr. Lizama by email on 11/23/23 and discussed at [...] tissue or parenchymal margin; discussed with Dr. Lizama on 11/23/23. The bronchial and vascular margins [...] 1, 8th Ed.) it is the managing physician s responsibility to establish the final pathologic stage based upon all pertinent information, including but potentially not limited to this pathology report. pT Category pT1c pN Category pN0 ADDITIONAL FINDINGS Additional Findings Inflammation: Acute and organizing bronchopneumonia Post-obstructive changes REASON FOR VISIT: Post-operative visit HPI: Stevie Sanchez is a 73 year old male ex-smoker [...] intercostal and phrenic nerve block by Dr Lizama. Noted an abscess. He was discharged 11/19/23. PHYSICAL EXAM: VITAL SIGNS: BP 115/67 Pulse 74 Temp 36.6 C (97.9 F) (Oral) Resp 14 Ht 170.2 cm (5' 7) Wt 77.7 kg (171 lb 6.4 oz) SpO2 95% BMI 26.85 kg/m Room air Incision location: Right Thoracoport sites [...] thoracic lymphadenopathy CXR 01/08/2024 INTERVAL HISTORY: Stevie Sanchez returns for post op visit. 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 01-08-2024 History of Present illness Narrative Radiology Service Progress Note PATIENT NAME: Stevie Sanchez DATE OF SERVICE: January 08, 2024 TIME: [...] PATIENT PRESENTS WITH AN IMPLANTABLE OR ATTACHED BURRER MARKER AXLE: No RADIOLOGY DEPARTMENT: General X-ray: Exam(s) Completed: Chest X-Ray PERIPHERAL IV DATA: Not applicable SIGNED BY: RT Roseanna(R) January 08, 2024 1:34 PM documented in this encounter [facility] 01-08-2024 Note [facility] 01-05-2024 Telephone encounter Note Called left message of PSA results. Kirk Matamoros MA [facility] 01-05-2024 Telephone encounter Note ----- Message from Don Lara MD sent at 01/05/2024 2:15 PM EST ----- The lab results all look good. No change in plan. [facility] 01-05-2024 Miscellaneous Notes Called left message of PSA results. Kirk Matamoros MA ----- Message from Don Lara MD sent at 01/05/2024 2:15 PM EST ----- The lab results all look good. No change in plan. documented in this encounter [facility] 01-04-2024 Note [facility] 01-04-2024 History of Present illness Narrative HISTORY OF PRESENT ILLNESS: The patient is [...] cores, 5-90% NCCN unfavorable intermediate risk group @CREATKOLBY@ PSA (ng/mL) Date Value 12/28/2022 0.06 12/06/2021 [...] Wt 79.8 kg (176 lb) BMI 27.57 kg/m I personally reviewed the patient's radiology images and dictation and I agree with the radiologist's opinion. I personally reviewed the patient's laboratory studies. Assessment & Plan: 73-year-old male with history of prostate [...] meaning may be extrapolated by contextual derivation. documented in this encounter [facility] 12-28-2023 Telephone encounter Note Summary: Patient called back Patient calling back and wants to schedule. Please try and contact him again. Thanks, Kp [facility] 12-28-2023 Miscellaneous Notes Summary: Patient called back Patient calling back and wants to schedule. Please try and contact him again. Kp [place] LVM to schedule consult w/ Dr Goss documented in this encounter [facility] 12-28-2023 Telephone encounter Note LVM to schedule consult w/ Dr Goss [facility] 12-20-2023 Telephone encounter Note 12/20/2023 3rd attempt: lvm No longer reaching out to patient [facility] 12-20-2023 Miscellaneous Notes 12/20/2023 3rd attempt: lvm No longer reaching out to patient Summary: Patient Called Back Patient calling back about setting this up. I apologize, he did not mention he received a voicemail already, but he stated he prefers to be called, but he's hard of hearing. You can also send him a MyChart. ThanksKp 12/19/2023 lvm and mc (1st and 2nd attempt) to schedule patient new patient consult with for radiation documented in this encounter [facility] 12-20-2023 Telephone encounter Note Summary: Patient Called Back Patient calling back about setting this up. I apologize, he did not mention he received a voicemail already, but he stated he prefers to be called, but he's hard of hearing. You can also send him a MyChart. Thanks, Kp [facility] 12-19-2023 Telephone encounter Note 12/19/2023 lvm and (1st and 2nd attempt) to schedule patient new patient consult with for radiation [facility] 12-19-2023 Note [facility] 12-19-2023 History of Present illness Narrative Images from the original note were not included. [facility] DEPARTMENT OF VASCULAR SURGERY OUTPATIENT VISIT DATE December 19, 2023 OUTPATIENT VISIT TYPE ESTABLISHED SERVICE DATE: 12/19/2023 SERVICE TIME: 11:02 AM PRIMARY CARE PHYSICIAN: Praful Su MD HISTORY OF PRESENT ILLNESS: Mr. Sanchez is a 73 year old male who [...] today's visit: CTA Abdominal ultrasound IMPRESSION: Mr. Sanchez is a 73 year old male with [...] with more than 50% of the total [id number]-ik-vcsv time of the visit in counseling / coordination of care. Malia Egan DO documented in this encounter [facility] 12-19-2023 Note [facility] 12-19-2023 History of Present illness Narrative Images from the original note were not included. (Elements copied from my note dated 11/29/23, have been reviewed and updated where appropriate, and all reflect current assessment and medical decision making during today's encounter, December 19, 2023) HISTORY OF PRESENT ILLNESS: Stevie Sanchez is a 73 year old male Cancer [...] 0% 11/15/23 R lower lobectomy with Dr. 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 *5 cm AAA under surveillance with Tea Jackson TREATMENT HISTORY: SCANS: 12/09/23: Unchanged size of [...] or synchronus disease. After conferring with Dr. Lizama, it was unclear if there would be [...] is at baseline. LABS: Latest Ref Rng & Units 11/19/2023 CBC WBC 3.70 - 11.00 [...] - 12.7 fL 9.0 Latest Ref Rng & Units 11/19/2023 CMP Sodium 136 - 144 mmol/L 137 Potassium 3.7 - 5.1 mmol/L 3.3 Chloride 98 - 107 mmol/L 100 CO2 22 - 30 mmol/L 26 Glucose 74 - 99 mg/dL 110 BUN 9 - 24 mg/dL 9 Creatinine 0.73 - 1.22 mg/dL 0.61 EGFR >=60 mL/min/1.73m 103 Calcium 8.5 - 10.2 mg/dL 8.8 No results found for: TSH Kevin Patterson MD documented in this encounter [facility] 12-09-2023 History of Present illness Narrative Radiology Service Progress Note PATIENT NAME: Stevie Sanchez DATE OF SERVICE: December 09, 2023 TIME: [...] PATIENT PRESENTS WITH AN IMPLANTABLE OR ATTACHED BURRER MARKER AXLE: No RADIOLOGY DEPARTMENT: CT; Exam(s) Completed: Chest PERIPHERAL IV DATA: Not applicable SIGNED BY: Iza Baez December 09, 2023 9:03 AM documented in this encounter [facility] 12-09-2023 Note HNO ID: [id number] Author: CINDY CHO Tech Service: Radiology Author Type: Unloader Operator Type: Progress Notes Filed: 12/09/2023 09:03 Note Text: Radiology Service Progress Note PATIENT NAME: Stevie Sanchez DATE OF SERVICE: December 09, 2023 TIME: [...] PATIENT PRESENTS WITH AN IMPLANTABLE OR ATTACHED BURRER MARKER AXLE: No RADIOLOGY DEPARTMENT: CT; Exam(s) Completed: Chest PERIPHERAL IV DATA: Not applicable SIGNED BY: Iza Baez December 09, 2023 9:03 AM [facility] 11-29-2023 History of Present illness Narrative Images from the original note were not included. HISTORY OF PRESENT ILLNESS: Stevie Sanchez is a 73 year old male Cancer [...] 0% 11/15/23 R lower lobectomy with Dr. 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 *5 cm AAA under surveillance with Tea Jackson TREATMENT HISTORY: SCANS: SUBJECTIVE: Feels near his baseline. Some pain at site of VATS ASSESSMENT/PLAN: #NSCLC, squamous histology, synchronous vs T4 (RUL satellite lesion) Patient initally presented with what appeared to be a 8.3cm RLL lesion and 2 cm RUL lesion, unclear if iplsateral lung metastatic disease or synchronus disease. After conferring with Dr. Lizama, it was unclear if there would be [...] is at baseline. LABS: Latest Ref Rng & Units 11/19/2023 CBC WBC 3.70 - 11.00 [...] - 12.7 fL 9.0 Latest Ref Rng & Units 11/19/2023 CMP Sodium 136 - 144 mmol/L 137 Potassium 3.7 - 5.1 mmol/L 3.3 Chloride 98 - 107 mmol/L 100 CO2 22 - 30 mmol/L 26 Glucose 74 - 99 mg/dL 110 BUN 9 - 24 mg/dL 9 Creatinine 0.73 - 1.22 mg/dL 0.61 EGFR >=60 mL/min/1.73m 103 Calcium 8.5 - 10.2 mg/dL 8.8 No results found for: TSH Kevin Patterson MD documented in this encounter [facility] 11-27-2023 Instructions Romina Kahn APRN.SUPERVISOR STRIPPING - 11/27/2023 10:55 AM EDT -Shower regularly to keep the incisions clean [...] 4 weeks after surgery. Do not perform outdoor emergency care technician such as laundry and vacuuming. Do not [...] you can safely maneuver a motor vehicle. documented in this encounter [facility] 11-27-2023 History of Present illness Narrative Images from the original note were not included. [facility] - OUTPATIENT THORACIC SURGERY CLINIC NOTE PT NAME: Stevie Sanchez [facility] NO: [id number] THORACIC SURGEON: Paula Lizama M.D. DATE OF SERVICE: November 27, 2023 [...] the inked margin) were reviewed at the [facility] thoracic pathology consensus conference on 11/23/23. Dr. Fauzia Oseguera, Dr. Alexis Altman, Dr. Fitch and Dr. Romina Bryan were present and concurred with this interpretation. The status of the margins was discussed with Dr. Lizama by email on 11/23/23 and discussed at [...] tissue or parenchymal margin; discussed with Dr. Lizama on 11/23/23. The bronchial and vascular margins [...] 1, 8th Ed.) it is the managing physician s responsibility to establish the final pathologic stage based upon all pertinent information, including but potentially not limited to this pathology report. pT Category pT1c pN Category pN0 ADDITIONAL FINDINGS Additional Findings Inflammation: Acute and organizing bronchopneumonia Post-obstructive changes REASON FOR VISIT: First post-operative visit HPI: Stevie Sanchez is a 73 year old male ex-smoker [...] intercostal and phrenic nerve block by Dr Lizama. Noted an abscess. He was discharged 11/19/23. PHYSICAL EXAM: VITAL SIGNS: BP 121/61 Pulse 61 Temp 36.8 C (98.3 F) (Oral) Resp 14 Ht 170.2 cm (5' 7) Wt 80.1 kg (176 lb 8 oz) SpO2 95% BMI 27.64 kg/m Room air Incision location: Right Thoracoport sites [...] IMAGING/TESTS: CXR 11/27/2023: PENDING INTERVAL HISTORY: Stevie Sanchez returns for first post op visit. He [...] for return visit with his oncologist Dr Patterson to discuss survivorship planning. He will return in 6 weeks with a CXR. 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 11-27-2023 History of Present illness Narrative Radiology Service Progress Note PATIENT NAME: Stevie Sanchez DATE OF SERVICE: November 27, 2023 TIME: [...] PATIENT PRESENTS WITH AN IMPLANTABLE OR ATTACHED BURRER MARKER AXLE: No RADIOLOGY DEPARTMENT: General X-ray: Exam(s) Completed: Chest X-Ray PERIPHERAL IV DATA: Not applicable SIGNED BY: RT Alexandra(R) November 27, 2023 10:22 AM documented in this encounter [facility] 11-23-2023 Telephone encounter Note PD nurse called patient for follow up from recent hospital discharge, but no answer. Left message on voicemail including 19/09 resource nurse phone number. Latha Ferris RN [facility] 11-23-2023 Miscellaneous Notes [place] [facility] nurse called patient for follow up from recent hospital discharge, but no answer. Left message on voicemail including 19/09 resource nurse phone number. Latha Ferris RN documented in this encounter [facility] 11-20-2023 History of Present illness Narrative Transition Care Management (TCM) Initial Outreach PCP Update / Actionable Items Called and spoke with patient, doing well at home. He denies any new or increased pain. Incision remains unchanged to the right side. He was able to get some good sleep last night which he is thankful for. His sister is also assisting with his care and went grcery shopping for him. Discussed patient understands he is not to take amlodipine or lisinopril-hctz until 12/18 Metoprolol prescribed for afib ppx, stop after 30 days then resume normal blood pressure regimen * What is the plan for follow up: Return to clinic in 7 days for routine surgery follow up, remove sutures and review final pathology Post op follow up 11/27/2023 - patient informed appt was already scheduled and can be viewed on mychart as well N/A - No specialty updates needed Patient Source: In-Network Discharge Initial outreach: TCM discharge report Outreach Summary: doing well following surgery Patient discharged from [facility] Discharge date: 11/19/2023 Admitted for: synchronous stage 1 non small cell lung cancer (RUL and RLL) vs [id number] lung cancer and pulmonary abscess Readmission Risk: 15 Value-Based Contract: Russ HARKINS Contact: Contact made with patient: Yes Hi, my name is Cecile Duggan RN and I am calling from the [facility] on behalf of your Primary Care [...] refills on your medications? No Medication Review: Full medication review completed Discharge Instructions: Your Discharge Instructions / After Visit Summary (AVS) are important in guiding you through the recovery process. Do you have any questions related to your discharge instructions? No Home Care: Were you discharged with home care? No Equipment: Do you have all the necessary equipment and supplies needed at your home? Yes The patient verbalizes understanding the use of the equipment and supplies Social: We would like to make sure you have what you need so that your basics needs are met - including your personal safety, food, housing and medications. Would you like to speak with a social work customer solutions teammate to help give you support for any of these needs? No It can be normal to feel anxious or down during a time like this. Would you like to talk to a mental health professional about how you have been feeling? No Action Taken: No needs verbalized. No action [...] I will send your request to a explosive operator supervisor who will contact and assist you with that appointment. This will give you an opportunity to ask any questions or address any concerns you may have with your PCP. Inform the patient that if they have any questions or concerns prior to that appointment, to call their PCP's office right away. Appointment Action: No action required; patient already has appointment scheduled. Education N/A Targets addressed / completed during outreach: Contact patient within two (2) business days Outreach Outcome: Enrolled in TCM Care Management partners utilized: N/A Cecile Duggan RN November 20, 2023 12:36 PM documented in this encounter [facility] 11-10-2023 History of Present illness Narrative Radiology Service Progress Note DATE OF SERVICE: November 10, 2023 TIME: 12:37 PM PATIENT WEIGHT: 177LBS PATIENT IDENTITY VERIFICATION COMPLETED USING TWO (2) STANDARD IDENTIFIERS: Name and Date of confirmed by patient verbally and Name and Date of confirmed by identification band. FALL SCREENING: Has the patient had 2 falls in the last year or 1 fall with injury or currently using an Ambulatory Assistive Device (Walker, Cane, Wheelchair, Crutches, etc.)? No PATIENT GENDER DATA: Male ALLERGIES: Reviewed and unchanged CONTRAST ALLERGY: No EXAM: MRI - CONTRAST TYPE: GROUP II IV SITE: Ambulatory: A peripheral IV was started in the Right antecubital site with a Angio cath: 22 gauge. and A Saline lock was inserted per protocol IV SITE APPEARANCE: Clean,Dry and Intact SIGNATURE: Britt Pizarro RN PATIENT NAME: Stevie Sanchez DATE: November 10, 2023 TIME: 12:37 PM Radiology Service Progress Note PATIENT NAME: Stevie Sanchez DATE OF SERVICE: November 10, 2023 TIME: 12:51 PM PATIENT IDENTITY VERIFICATION COMPLETED USING TWO [...] PATIENT PRESENTS WITH AN IMPLANTABLE OR ATTACHED BURRER MARKER AXLE: No RADIOLOGY DEPARTMENT: MR; Exam(s) Completed: Head: Routine Brain PERIPHERAL IV DATA: Site assessment: Clean,Dry and Intact, Site disposition Discontinued SIGNED BY: RT Stephanie(R) November 10, 2023 12:51 PM documented in this encounter [facility] 11-09-2023 History of Present illness Narrative Images from the original note were not included. 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 Review no known heparin intolerance not taking anticoagulant/antiplatelet medication no non-cardiac IEDs present no known esophageal disorders blood transfusion consented - COVID-19 Immunization Status Overdue - Covid-19 Vaccine ( season) Overdue since 10/29/2023 02/14/2023 Imm Admin: COVID-19 vaccine, age 12+ yr, season (PFIZER-BIONTECH) 12/28/2021 Imm Admin: COVID-19 vaccine, age 12+ yr, bivalent (PFIZER-BIONTECH) 02/04/2021 Imm Admin: COVID-19 original vaccine, age 12+ yr, monovalent ([employer]-BION[employer] - PURPLE TOP) Only the first 3 history entries have been loaded, but more history exists. 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 Paresthesias Lumbosacral Neuritis Abdominal Aortic Aneurysm (Aaa) Without Rupture (Hcc) Hdl Deficiency Prostate Cancer (Hcc) Paroxysmal Atrial Fibrillation (Hcc) PAST MEDICAL HISTORY No date: Abdominal aortic aneurysm (HCC) Comment: without rupture No date: Elevated PSA No date: Hearing loss No date: HTN (hypertension) No date: Lumbosacral neuritis No date: Malignant neoplasm of prostate (HCC) No date: Other and unspecified hyperlipidemia No date: Smoker No date: Spinal stenosis of lumbar region with neurogenic claudication PAST SURGICAL HISTORY 06/05: COLONOSCOPY age 20: HERNIA REPAIR HX FAMILY HISTORY Problem Relation Age of Onset other (high blood pressure [Other]) Mother Diabetes Mother Hearing Loss Mother Prostate Cancer Other Social History Tobacco Use Smoking status: Former Current packs/day: 0.00 Average packs/day: 1 pack/day for 40.0 years (40.0 ttl pk-yrs) Types: Cigarettes Start date: 07/1981 Quit date: 07/2021 Years since quittin.2 Passive exposure: Past Smokeless tobacco: Never Substance Use Topics Alcohol use: Not Currently Alcohol/week: 6.0 standard drinks of alcohol Types: 6 Glasses of wine per week Drug use: No Prior to Admission medications as of 11/09/23 0941 Medication Sig Last Dose Taking fluticasone-salmeterol (WIXELA INHUB) 250-50 mcg/dose inhaler Inhale 1 Puff as instructed two times a day. lisinopril-hydroCHLOROthiazide (ZESTORETIC) 20-12.5 mg per tablet Take 1 tablet by mouth once daily. amLODIPine (NORVASC) 5 mg tablet Take 1 tablet by mouth once daily. atorvastatin (LIPITOR) 20 mg tablet Take 1 tablet by mouth once daily. gabapentin (NEURONTIN) 300 mg capsule TAKE 2 CAPSULES BY MOUTH 3 TIMES A DAY No medication comments found. ALLERGIES No Known Allergies Objective Pain Assessment: Vitals: There were no vitals taken for this visit. Diagnostic tests reviewed for today's visit: Lab Value Units Date High Low HB 15.2 g/dL 11/09/2023 17.0 13.0 HCT 45.4 % 11/09/2023 51.0 39.0 WBC 7.12 k/uL 11/09/2023 11.00 3.70 PLT 243 k/uL 11/09/2023 400 150 NA 140 mmol/L 11/09/2023 144 136 K 3.8 mmol/L 11/09/2023 5.1 3.7 GLUC 133 mg/dL 11/09/2023 99 74 BUN 6 mg/dL 11/09/2023 24 9 CREAT 0.62 mg/dL 11/09/2023 1.22 0.73 PTSEC 11.5 sec 11/09/2023 13.0 9.7 INR 1.1 no uni* 11/09/2023 1.3 0.9 APTT 27.1 sec 11/09/2023 32.4 23.0 ALT 18 U/L 11/09/2023 54 10 AST 19 U/L 11/09/2023 40 14 TBILI 0.8 mg/dL 11/09/2023 1.3 0.2 TSH No results within date [...] 5.9 Recent Results (from the past 8760 hour(s)) XR CHEST 2V FRONTAL/LAT Collection Time: 11/09/23 7:35 AM Impression IMPRESSION: See result Quantitative Equity Head: PSCB Transcribe Date/Time: Nov 09 2023 7:39A Dictated by : IVON PEREIRA MD This examination was interpreted and the report reviewed and electronically signed by: IVON PEREIRA MD on Nov 09 2023 7:41AM EST ECG COMPLETE Collection Time: 11/09/23 7:26 AM Impression SINUS RHYTHM WITH SHORT TN ST & ANTEROLATERAL T WAVE ABNORMALITY ABNORMAL ECG ECHO Collection Time: 10/16/23 2:52 PM Impression CONCLUSIONS: - Technically difficult exam due to lung interference. - Exam indication: Hypertension - The left ventricle is small. Left ventricular systolic function is normal. EF = 55 5% (2D biplane) Normal left ventricular diastolic [...] * * * Assessment No problem-specific Assessment & Plan notes found for this encounter. ANESTHESIA FINDINGS: Intubation History: No history of difficult intubation. No abnormal airway history Patient is a candidate for regional or neuraxial anesthesia Significant Anesthesia Considerations: none Airway History: No history of difficult airway No abnormal airway history Prepared for Surgery: optimally prepared for surgery. The Following Tests/Procedures Have Been Initiated: No orders of the defined types were placed in this encounter. ASA Class: 3 Planned Anesthetic: general I - PHYSICAL EVALUATION AIRWAY Patient intubated: No. Tracheostomy tube not present Mallampati: II. TM distance: >3 FB. Neck ROM: full ROM without neurological symptoms. Mouth opening: adequate. Short neck: no. Thick neck: no Chase present: yes Lip Bite Test: I DENTAL Dental findings: missing tooth/teeth. Dentures, upper: complete. Dentures, lower: partial. II - ANESTHESIA PLAN ASA Score: 3 Anesthetic Plan: general Airway type: ETT Beta Sumaya Monitoring Plan Post Procedure Analgesic Plan Informed Consent Anesthetic risks, benefits, alternatives, personnel and consent discussed: yes. Patient / Responsible Libertarian agrees to proceed: yes Patient / Surrogate agrees to blood products: Yes Discussed the possibility of lip / dental damage: yes Instructions Given to Patient: Instructions located in the after visit summary. Patient given verbal and written preop instructions and voices comprehension and compliance. Signature: Kayden Rivera DO Patient Name: Stevie Sanchez Date: November 09, 2023 Time: 10:05 AM Pager/Contact #: documented in this encounter [facility] 11-09-2023 Nurse Note PATIENT EDUCATION The following was evaluated: Motivation To Learn: Interested Family/Significant Other Support: High - Very involved in pt care Cognitive Ability: Alert and oriented Patient Learns Best By: Multiple Methods The Following Influencing Factors Were Barriers To This Education Session: No barriers Health Care Coordinator Present: Not Applicable The Following Physical Limitations Were Barriers To This Education Session: None Instruction Provided To: Patient & Family Discipline: Nursing Learning Topic: Pre-op Instructions given Patient Evaluation: Verbalizes understanding Follow Up Plan: Patient/Family will call us with questions Supplemental Material Given: TCI Patient Instructions: Thoracic Surgery Teach completed, topic: hibiclens/listerine/ Instructed By Eliane Onofre RN. In Department of THORACIC CLINIC. [facility] 11-09-2023 Nurse Note PATIENT EDUCATION The following was evaluated: Motivation To Learn: Interested Family/Significant Other Support: High - Very involved in pt care Cognitive Ability: Alert and oriented Patient Learns Best By: Multiple Methods The Following Influencing Factors Were Barriers To This Education Session: No barriers Health Care Coordinator Present: Not Applicable The Following Physical Limitations Were Barriers To This Education Session: None Instruction Provided To: Patient & Family Discipline: Nursing Learning Topic: Pre-op Instructions given Patient Evaluation: Verbalizes understanding Follow Up Plan: Patient/Family will call us with questions Supplemental Material Given: TCI Patient Instructions: Thoracic Surgery Teach completed, topic: hibiclens/listerine/ Instructed By Eliane Onofre RN. In Department of THORACIC CLINIC. documented in this encounter [facility] 11-09-2023 History of Present illness Narrative CHART COPY DO NOT DISCARD . Patient here today for TCI visit. . Surgery Robotic Right Lower Lobectomy scheduled for Monday11/15/23. . Meds allergies reviewed. Latex Allergy: No Anticoag:No Medport: No Preoperative instructions; NPO after midnight night prior to surgery and Listerine after brushing teeth and Hibiclens Shower. Patient verbalized understanding of instructions. . Last clinic note 10/19/23 per Paula Lizama M.D. IMPRESSION: Possible synchronous versus related lung cancers, one of which is clinical T2a N0 M0 lesion in the right lower lobe and squamous cell and has minimal PDL1 expression. The patient has fair pulmonary function test. The Specter of synchronous versus related cancer in the upper lobe was raised by the PET scan. I will reach out to the oncology team and Dr. Patterson, and solicit his thoughts. One possibility is that if the patient has a negative provocative stress study of his heart, we proceed to right lower lobectomy and consider radiotherapy/SBRT to treat the upper lobe lesion. This lesion is slightly too large for sublobar resection based on standard guidelines and SBRT given his peripheral location might be quite reasonable. This would also be part of a lung sparing strategy. The patient certainly is motivated to proceed down that avenue, but again I will run my thoughts by Dr. Patterson, and we will plan for potential resection. . Today's visit 11/09/23: Brain MRI 11/10/23 CXR: 11/08 . PFT: 07/04/23 SPIROMETRY FVC (L) 4.26 2.73 3.67 4.63 116 4.37 119 3 FEV1 (L) 2.40 2.04 2.79 3.50 86 2.47 88 2 LUNG DIFFUSION DLCOunc (ml/min/mmHg) 23.32 14.99 24.93 34.86 93 6MW: 10/17/23 Distance Walked (meters) Distance Walked (feet) Male Predicted Walk Distance (feet) Male Lower Limit of Normal (feet) Male % Predicted Total Duration Of The Stops (seconds) 297.18 975 1615.81 1113.81 60.3 -- Cardiac Studies: Nuclear Medicine Stress Test 11/09/23 CONCLUSIONS: 1. SPECT Perfusion Study: Normal. 2. [...] Gated Rest IR LVEF % [address] Mccrary 09/14/23 Plan: - Vitals today: BP of 122/78 and a HR of 77 - Currently on Lisinopril-HCTZ 20-12.5mg, Norvasc 5mg and Lipitor 20mg. - He has not had any changes to his overall symptomatology - He is, from a cardiac standpoint, optimized for this surgery - He is intermediate risk for this intermediate risk procedure - He should hold his anti-hypertensive medications - Will order an echo for now, however, this should not hold him back from surgery. - Will likely need a more extensive work up following the surgery. EK11/09/23 Diagnosis: SINUS RHYTHM WITH SHORT TN ST & ANTEROLATERAL T WAVE ABNORMALITY ABNORMAL ECG Clinical Staging: Risk, benefits, and alternatives discussed per Paula Da Silva&P 10/19/23 Films CCT, PET, and CXR . Eliane Onofre RN documented in this encounter [facility] 11-09-2023 History of Present illness Narrative RADIOLOGY SERVICE PROGRESS NOTE SERVICE DATE: 11/09/2023 SERVICE TIME: 8:58 AM PATIENT IDENTITY VERIFICATION COMPLETED USING TWO (2) STANDARD IDENTIFIERS: Name and Date of confirmed by patient verbally and Name and Date of confirmed by identification band FALL SCREENING: Has the patient had 2 falls in the last year or 1 fall with injury or currently using an Ambulatory Assistive Device (Walker, Cane, Wheelchair, Crutches, etc.)? No PATIENT GENDER DATA: .male : No ALLERGIES: Reviewed and unchanged MEDICATIONS REVIEWED: Yes PATIENT RELEVANT IMPLANT DATA REVIEWED: Not Applicable PATIENT PRESENTS WITH AN IMPLANTABLE OR ATTACHED BURRER MARKER AXLE: No CREATININE: Creatinine Date Value Ref Range Status 09/11/2023 0.64 (L) 0.73 - 1.22 mg/dL Final 05/02/2023 0.66 (L) 0.73 - 1.22 mg/dL Final 03/14/2022 0.77 0.73 - 1.22 mg/dL Final Estimated Glomerular Filtration Rate Date Value Ref Range Status 09/11/2023 101 >=60 mL/min/1.73m Final Comment: Estimated Glomerular Filtration Rate (eGFR) [...] Range Status 02/08/2021 >60 Final P.O.C.T. RESULTS: N/A November 09, [address] PERFORMED: No IV SITE: Ambulatory: A peripheral IV was started in the Right antecubital site with a Angio cath: 22 gauge. POST EXAM PIV STATUS: Discontinued PROCEDURE TYPE: NM Stress: 12.0 mCi [id number] was administered IV for Rest Imaging at 08:56AM by RUBIA TODD. 32.3 mCi [id number] was administered IV for Stress Imaging at 1002 by ulysses. ADMINISTRATION TIME: PATIENT DISCHARGED TO: Ambulatory patient, left [place] department area. A Diagnostic radioactive procedure has taken place, with no further precautions necessary other than routine body substance precautions. More information regarding radiation safety can be found using this link: [email or web address] SIGNATURE: RT Rajinder(Harry) PATIENT NAME: Stevie Sanchez DATE: November 09, 2023 TIME: 8:58 AM PAGER/CONTACT #: RADIOLOGY SERVICE PROGRESS NOTE SERVICE DATE: 11/09/2023 SERVICE TIME: 10:06 AM PATIENT IDENTITY VERIFICATION COMPLETED USING TWO (2) STANDARD IDENTIFIERS: Name and Date of confirmed by patient verbally and Name and Date of confirmed by identification band PATIENT GENDER DATA: male ALLERGIES: Reviewed and unchanged MEDICATIONS REVIEWED BY: Foot Caster PROCEDURE TYPE: NM STRESS: 0.4 mg of Lexiscan was administered IV at 1002 by Apoorva Reddy RN . Reversal agent used: None. IV SITE: Ambulatory: A peripheral IV was started in the Right antecubital site with a Angio cath: 20 gauge. and A Saline lock was inserted per protocol POST EXAM PIV STATUS: Discontinued PATIENT DISCHARGED TO: Ambulatory patient, left [place] department area. A Diagnostic radioactive procedure has taken place, with no further precautions necessary other than routine body substance precautions. More information regarding radiation safety can be found using this link: [email or web address] %[email or web address] SIGNATURE: Apoorva Reddy RN PATIENT NAME: Stevie Sanchez DATE: November 09, 2023 TIME: 10:06 AM PAGER/CONTACT #: documented in this encounter [facility] 11-09-2023 History of Present illness Narrative Radiology Service Progress Note PATIENT NAME: Stevie Sanchez DATE OF SERVICE: November 09, 2023 TIME: 7:35 AM PATIENT IDENTITY VERIFICATION COMPLETED USING TWO [...] PATIENT PRESENTS WITH AN IMPLANTABLE OR ATTACHED BURRER MARKER AXLE: No RADIOLOGY DEPARTMENT: General X-ray: Exam(s) Completed: Chest X-Ray PERIPHERAL IV DATA: Not applicable SIGNED BY: RT Sebastian(R) November 09, 2023 7:35 AM documented in this encounter [facility] 10-27-2023 History of Present illness Narrative Confirmed surgical date of 11/15/2023 for Robotic right lower lobectomy with TCI on 11/09/2023 with Stress, CXR, EKG, Lab tests (also schedule ordered Brain MRI) Advised of expected 4-day hospital stay with no current visiting restrictions with face mask required in patient care areas. Instructed to stop any OTC vitamins, supplements, cold, and allergy or Motrin/ibuprofen meds starting 7 days prior to surgery. Robotic right lower lobectomy C=2.5 OR 11/15/2023 TCI 11/09/2023 with Stress, CXR, EKG, Lab tests (also schedule ordered Brain MRI) Advised of expected 4-day hospital stay with no current visiting restrictions with face mask required in patient care areas. Instructed to stop any OTC vitamins, supplements, cold, allergy, or Motrin/ibuprofen meds starting 7 days prior to surgery. Lincoln Rowland RN Thoracic NPM documented in this encounter [facility] 10-26-2023 History of Present illness Narrative SUBJECTIVE: Stevie Sanchez is a 73 year old male Patient presents with: Follow Up He is waiting for final word on rx for lung cancer, may need both surgery and chemorx. On same rx. CURRENT MEDICATIONS: Current Outpatient Medications on File Prior to Visit Medication Sig fluticasone-salmeterol (WIXELA INHUB) 250-50 mcg/dose inhaler Inhale 1 Puff as instructed two times a day. lisinopril-hydroCHLOROthiazide (ZESTORETIC) 20-12.5 mg per tablet Take [...] Region With Neurogenic Claudication Paresthesias Lumbosacral Neuritis Abdominal Aortic Aneurysm (Aaa) Without Rupture (Hcc) Hdl Deficiency Prostate Cancer (Hcc) Paroxysmal Atrial Fibrillation (Hcc) ALLERGIES: Patient has no known allergies. REVIEW OF SYSTEMS:GENERAL: No weight loss, malaise or fevers RESPIRATORY: Negative for cough, hemoptysis, wheezing, COPD, dyspnea or shortness of breath CARDIOVASCULAR: Negative for chest pain, leg swelling, hypertension, CHF or palpitations BP 113/79 (BP Site: Left Arm, BP Position: Sitting, BP Cuff Size: Regular Adult) Pulse 89 Temp 36.6 C (97.9 F) (Temporal) Ht 173 cm (5' 8.11) Wt 82 kg (180 lb 12.4 oz) BMI 27.40 kg/m General Appearance: Well appearing, alert, in no [...] diet - Recommend regular aerobic exercise 2. Screening for depression - ICD9: V79.0, ICD10: Z13.31 - DEPRESSION SCREENING 3. Encounter for screening examination for other mental health and behavioral disorders - ICD9: V79.8, ICD10: Z13.39 - ANXIETY SCREENING 4. Prostate cancer (HCC) - ICD9: 185, ICD10: C61 Stable, followed by urology 5. Glucose intolerance (impaired glucose tolerance) - ICD9: 790.22, ICD10: R73.02 stable 6. Spinal stenosis of lumbar region with neurogenic claudication - ICD9: 724.03, ICD10: M48.062 Stable sx. 7. Mixed hyperlipidemia - ICD9: 272.2, ICD10: E78.2 - Controlled - Continue current medications - Counseled on healthy diet and regular exercise 8. Malignant neoplasm of lower lobe of right lung (HCC) - ICD9: 162.5, ICD10: C34.31 In process of deciding on course of action. Praful Su MD MEDICATION: Reviewed with patient REVIEW OF RECORDS: Progress note PATIENT EDUCATION: Discussed diet and Discussed exercise/therapy REVIEW OF TESTS: Labs Praful Su MD documented in this encounter [facility] 10-24-2023 History of Present illness Narrative [facility] STAFF PHYSICIAN NOTE OF PERSONAL INVOLVEMENT IN CARE I have reviewed the documentation obtained and documented by the Resident and I have personally performed a face to face assessment of the patient and have personally participated in the turcios components of the visit which includes medical decision making.. I have discussed the case and management of the patient's care. I wish to add the following findings which have been dictated and will be communicated back to the requesting physician. STAFF PHYSICIAN: Paula Lizama MD, PhD DATE OF SERVICE: October 19, 2023 Images from the original note were not included. 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 Could represent 2 synchronous primary lesions or cT4 disease with spread to RUL, cN0. 6MWT with 60% predicted, ECOG 0, patient reports active lifestyle. Plan: - Brain MRI still to be done - Stress echo ordered - Will discuss further with oncology regarding plan - If plan for upfront surgery, will plan for RLL lobectomy and not address RUL. Could consider SBRT for RUL. 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 He is currently feeling well. Incidental findings of RLL nodules c/f malignancy on CTA Chest for evaluation of known AAA. Has a chronic cough occasionally productive of phlegm, but otherwise asymptomatic. No SOB, PENA, CP, hemoptysis. PET/CT 06/18 with FDG avid right upper lobe lung nodule (1.5 x 2.2 cm, SUV 10.3) and medial right lower lobe solid lesion with groundglass extension (8.9 x 3.2 cm SUV 10, nodular opacities 3.8 x 3.1 cm, SUV 10). Mildly prominent mediastinal lymph nodes (largest 1.3 cm) with mild uptake (SUV max 2.2) likely reactive. Bronchoscopy with biopsy 06/20/23 non-diagnostic. CT Chest 08/28/23 with interval enlargement of RLL mass (8.3 x 3.1 from 4.6 x 3.1 cm in same plane as PET/CT) and RUL nodule (2.0 x 1.5 from 1.8 x 1.4 cm). Repeat bronchoscopy with biopsy 09/19/23 with SCC of RLL, negative 11 Rl and 11RS nodes. PD-L1 <1%. MRI Brain not done yet. Discussed at tumor board 10/10/23, with decision to consider neoadjuvant systemic therapy and referral to thoracic surgery. (document at least 4 of these elements) Location: right, upper, and lower Quality: worsening Severity: severe Timing: constant Context: at rest ECOG Score: 0 Living arrangement: Lives with family/friend Functional status: Independent Unintentional weight loss over last 3 months: No PAST MEDICAL HISTORY No date: Abdominal aortic aneurysm (HCC) Comment: without rupture No date: Elevated PSA No date: Hearing loss No date: HTN (hypertension) No date: Lumbosacral neuritis No date: Malignant neoplasm of prostate (HCC) No date: Other and unspecified hyperlipidemia No date: Smoker No date: Spinal stenosis of lumbar region with neurogenic claudication PAST SURGICAL HISTORY 06/05: COLONOSCOPY age 20: HERNIA REPAIR HX FAMILY HISTORY Problem Relation Age of Onset other (high blood pressure [Other]) Mother Diabetes Mother Hearing Loss Mother Prostate Cancer Other Social History Tobacco Use Smoking status: Former Current packs/day: 0.00 Average packs/day: 0.2 packs/day for 40.0 years (6.0 ttl pk-yrs) Types: Cigarettes Start date: 07/1981 Quit date: 07/2021 Years since quittin.2 Passive exposure: Past Smokeless tobacco: Never Substance Use Topics Alcohol use: Not Currently Alcohol/week: 6.0 standard drinks of alcohol Types: 6 Glasses of wine per week Drug use: No ALLERGIES No Known Allergies Asbestos Exposure No PHYSICAL EXAM There were no vitals taken for this visit. Neck: No masses Resp: Respiratory effort: normal Cardiovascular: Regular rate & rhythm GI: Soft Neurological/Psychiatric: Alert, Oriented, and No gross focal neurologic deficits Additional relevant findings: None DATA: 6MWT 10/17/23 Six Minute Walk Test for This Encounter Oxygen Device Liters FIO2 SpO2% HR Activity Feet Speed (MPH) Flag R/A 99 81 Resting R/A 98 91 Six Minute Walk 975 1.8 R/A 99 82 Recovery 1 minute post R/A 99 85 Recovery 2 minute post R/A 99 85 Recovery 3 minute post _ Distance Walked (meters) Distance Walked (feet) Male Predicted Walk Distance (feet) Male Lower Limit of Normal (feet) Male % Predicted Total Duration Of The Stops (seconds) 297.18 975 1615.81 1113.81 60.3 -- The patient completed the six minute walk test with No stops. . The patient required Room Air to complete the test. The distance the patient walked in six minutes is moderately reduced. This is the first time patient takes the six minute walk test. The patient perceived their dyspnea during the six minute walk test to be 3-Moderate on the modified Karlos scale. The patient perceived their fatigue during the six minute walk test to be 1-Very slight on the modified Karlos scale. PFTs 07/04/23 PRE-BRONCH POST-BRONCH Pre LLN Pred ULN %Pred Post %Pred %Chg SPIROMETRY FVC (L) 4.26 2.73 3.67 4.63 116 4.37 119 3 FEV1 (L) 2.40 2.04 2.79 3.50 86 2.47 88 2 FEV1/FVC 0.56 0.64 0.77 0.88 73 0.56 73 0 PEF L/s (L/sec) 5.62 5.57 7.74 9.90 72 5.52 71 -1 FEF50 (L/sec) 1.28 1.49 3.61 5.74 35 1.21 33 -5 FIF50 (L/sec) 3.07 3.17 3 FEF50/FIF50 0.42 90-100 0.38 -8 FIVC (L) 3.69 4.14 12 PFJ99-98 (L/sec) 0.69 0.97 2.26 4.10 30 0.78 34 13 Time (sec) 15.29 15.18 0 FET PEF (sec) 0.13 0.11 -10 DARRICK (L) 0.15 0.10 -30 Vol Extrap % (%) 3 2 -32 LUNG DIFFUSION DLCOunc (ml/min/mmHg) 23.32 14.99 24.93 34.86 93 VA (L) 5.99 5.00 6.36 7.73 94 DLunc/VA (ml/min/mmHg/L) 3.89 2.84 4.04 5.24 96 DLCOcor (ml/min/mmHg) 22.59 14.99 24.93 34.86 90 DLcor/VA (ml/min/mmHg/L) 3.77 3.92 96 BHT (sec) 11.56 IVC (L) 4.20 Hgb (gm/dL) 15.80 12-18 Radiology: Echo 10/16/23 CONCLUSIONS: - Technically difficult exam due to lung interference. - Exam indication: Hypertension - The left ventricle is small. Left ventricular systolic function is normal. EF = 55 5% (2D biplane) Normal left ventricular diastolic [...] - There are no significant valvular abnormalities. CT Chest 08/28/23 1. Further interval enlargement of suspicious masslike opacity in the RIGHT lower lobe and mild enlargement of suspicious spiculated and cavitary nodule in the RIGHT upper lobe. Lung parenchyma and airways: Medial RIGHT lower lobe masslike consolidation currently measures up to 8.3 x 3.1 cm transaxially, remeasured on the most recent PET/CT in the same plane as 4.6 x 3.1 cm. There is worsening adjacent bronchial narrowing and possible bronchial occlusion best seen on series 301 image 146. The previously FDG avid spiculated nodule cavitations in the RIGHT upper lobe currently measures 2.0 x 1.5 cm, remeasure the same plane on the comparison as 1.8 x 1.4 cm. Calcified granulomas in the middle lobe are unchanged. Moderate centrilobular and paraseptal emphysema. Endobronchial Biopsy 09/19/23 FINAL DIAGNOSIS A, B. Lung, right lower lobe, bronchoscopic biopsies: - Fragments of keratinizing squamous cell carcinoma. A - Lymph Node, Transbronchial, Aspirate/Fine Needle Aspirate - 11RS Negative for malignant cells. Benign lymphoid sample. B - Lymph Node, Transbronchial, Aspirate/Fine Needle Aspirate - 11RI Negative for malignant cells. Not a lymphoid sample. PDL1 negative (less than 1%) PET CT 06/19/23 IMPRESSION: HEAD/NECK: * No FDG avid neoplastic process. CHEST: * FDG avid right upper lobe lung nodule and medial right lower lobe solid lesion with groundglass extension, concerning for neoplastic process. Mildly prominent mediastinal lymph nodes with mild uptake likely reactive. Lungs & Airways: FDG avid nodule in the right upper lobe 1.5 x 2.2 cm with SUV max 10.3 (3:102) Medial right lower lobe nodular and groundglass opacity measuring in total 8.9 x 3.2 cm with nodular opacities measuring 3.8 x 3.1 cm SUV max 10.0 Mediastinum & Lymph Nodes: No abnormal uptake. Mild uptake in mildly prominent paratracheal lymph nodes likely reactive largest 1.3 cm with SUV max 2.2 (3:82) ABDOMEN/PELVIS: * No FDG avid neoplastic process. Infrarenal aortic aneurysm. MUSCULOSKELETAL: * No FDG avid neoplastic process. CTA Chest 05/17/23 IMPRESSION: 1. Saccular infrarenal aortic aneurysm measuring 4.5 x 5 cm. No extension to the common iliac arteries. 2. Multifocal atherosclerotic disease in the lower extremities as detailed above. 3 vessel runoff at the knee, two-vessel runoff at the right ankle. Single vessel runoff at the left ankle. Vasculature in the foot is not well seen which may be due to contrast bolus timing. 3. Nodular opacifications in the right lower lobe with confluent appearance near the hilum, concerning for primary versus metastatic proliferative process I have personally reviewed the following images/data: Bronchoscopy, CT scan, and PET Scan Outside Paper Medical Records Review personally performed by: Marlee Eagle MD Patient-Entered Questionnaire Domain Symptom Raw Score Bother Raw Score Symptom T Score (0-100) Bother T Score (0-100) Dysphagia (7) Incomplete (Range 7-42) Incomplete (Range 7-35) Incomplete Incomplete Eating (7) Incomplete (Range 7-42) Incomplete (Range 7-35) Incomplete Incomplete Pain (5) Incomplete (Range 5-30) Incomplete (Range 5-25) Incomplete Incomplete Dyspepsia (4) Incomplete (Range 4-24) Incomplete (Range 4-20) Incomplete Incomplete Reflux &Regurgitation (5) Incomplete (Range 5-30) Incomplete (Range 5-25) Incomplete Incomplete Dumping (6) Incomplete (Range 6-36) Incomplete (Range 6-30) Incomplete Incomplete documented in this encounter [facility] 10-17-2023 Procedure note Associated Ord er(s): SIX MINUTE WALK RESPIRATORY THERAPY SIX MINUTE WALK TEST OXIMETRY REPORT Six Minute Walk Test for This Encounter Oxygen Device Liters FIO2 SpO2% HR Activity Feet Speed (MPH) Flag R/A 99 81 Resting R/A 98 91 Six Minute Walk 975 1.8 R/A 99 82 Recovery 1 minute post R/A 99 85 Recovery 2 minute post R/A 99 85 Recovery 3 minute post General Information Height Weight Pulse Oximetry Site Oximeter Pre Blood Pressure Post Blood Pressure Total Time Spent (min) 171.8 cm (5' 7.64) 81 kg (178 lb 9.2 oz) Forehead Masimo 123/75 110/74 30 _ Distance Walked (meters) Distance Walked (feet) Male Predicted Walk Distance (feet) Male Lower Limit of Normal (feet) Male % Predicted Total Duration Of The Stops (seconds) 297.18 975 1615.81 1113.81 60.3 -- _ Lowest SpO2 During 6 Minute Walk Pre-Karlos Dyspnea Rating Pre-Karlos Fatigue Rating Post Karlos Dyspnea Rating Post Karlos Fatigue Rating 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 . The patient required Room Air to complete the test. The distance the patient walked in six minutes is moderately reduced. This is the first time patient takes the six minute walk test. The patient perceived their dyspnea during the six minute walk test to be 3-Moderate on the modified Karlos scale. The patient perceived their fatigue during the six minute walk test to be 1-Very slight on the modified Karlos scale. I have reviewed the findings and made appropriate revisions as needed. SIGNATURE: Haile Gentile MD PATIENT NAME: Stevie Sanchez DATE: October 17, 2023 TIME: 1:[address] [facility] 10-17-2023 Procedure note Associated Ord er(s): SIX MINUTE WALK RESPIRATORY THERAPY SIX MINUTE WALK TEST OXIMETRY REPORT Six Minute Walk Test for This Encounter Oxygen Device Liters FIO2 SpO2% HR Activity Feet Speed (MPH) Flag R/A 99 81 Resting R/A 98 91 Six Minute Walk 975 1.8 R/A 99 82 Recovery 1 minute post R/A 99 85 Recovery 2 minute post R/A 99 85 Recovery 3 minute post General Information Height Weight Pulse Oximetry Site Oximeter Pre Blood Pressure Post Blood Pressure Total Time Spent (min) 171.8 cm (5' 7.64) 81 kg (178 lb 9.2 oz) Forehead Masimo 123/75 110/74 30 _ Distance Walked (meters) Distance Walked (feet) Male Predicted Walk Distance (feet) Male Lower Limit of Normal (feet) Male % Predicted Total Duration Of The Stops (seconds) 297.18 975 1615.81 1113.81 60.3 -- _ Lowest SpO2 During 6 Minute Walk Pre-Karlos Dyspnea Rating Pre-Karlos Fatigue Rating Post Karlos Dyspnea Rating Post Karlos Fatigue Rating 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 . The patient required Room Air to complete the test. The distance the patient walked in six minutes is moderately reduced. This is the first time patient takes the six minute walk test. The patient perceived their dyspnea during the six minute walk test to be 3-Moderate on the modified Karlos scale. The patient perceived their fatigue during the six minute walk test to be 1-Very slight on the modified Karlos scale. I have reviewed the findings and made appropriate revisions as needed. SIGNATURE: Haile Gentile MD PATIENT NAME: Stevie Sanchez DATE: October 17, 2023 TIME: 1:19 PM documented in this encounter [facility] 10-17-2023 History of Present illness Narrative PULM FUNCTION: Provider: Paula Lizama MD, PhD Assisting Tech: Srinivasan Deng RRT 6 MW: 1 documented in this encounter [facility] 10-10-2023 Telephone encounter Note Thoracic Surgery Consultation - review of records for appointment scheduling Received medical records from the office of Kevin Patterson [address] [place], [place] [id number] Patient is being referred to Paula Lizama MD, PhD by Kevin Patterson for Lung Cancer Outside hospital records scanned / in [facility] / Care Everywhere Pathology:09/19/2023 Component FINAL DIAGNOSIS A, B. Lung, right lower lobe, bronchoscopic biopsies: - Fragments of keratinizing squamous cell carcinoma. FINAL DIAGNOSIS A - Lymph Node, Transbronchial, Aspirate/Fine Needle Aspirate - 11RS Negative for malignant cells. Benign lymphoid sample. B - Lymph Node, Transbronchial, Aspirate/Fine Needle Aspirate - 11RI Negative for malignant cells. Not a lymphoid sample. C - Lung, Right Lower Lobe, Aspirate/Fine Needle Aspirate Positive for malignant cells. 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 D - Lung, Right Lower Lobe, [place] Positive for malignant cells. 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 Procedures: EBUS 09/19/2023 Impression: - Right lower lobe mass - The airway examination of the left lung was normal. - An exophytic mass was found in the superior segment of the right lower lobe (B6). This lesion is likely malignant. - Lymph node sizing and sampling was performed. - Rapid On-Site Evaluation (GWEN): Preliminary cytology was suggestive suggestive of benign-appearing lymphoid tissue in node level 11Rs and node level 11Ri and suggestive of benign inflammatory changes in RLL mass (final results are pending). - Brushings were obtained. - An endobronchial biopsy was performed. Imaging . PET/CT: 06/20/2023 IMPRESSION: HEAD/NECK: * No FDG avid neoplastic process. CHEST: * FDG avid right upper lobe lung nodule and medial right lower lobe solid lesion with groundglass extension, concerning for neoplastic process. Mildly prominent mediastinal lymph nodes with mild uptake likely reactive. ABDOMEN/PELVIS: * No FDG avid neoplastic process. Infrarenal aortic aneurysm. MUSCULOSKELETAL: * No FDG avid neoplastic process. CT (chest): 08/28/2023 IMPRESSION: 1. Further interval enlargement of suspicious masslike opacity in the RIGHT lower lobe and mild enlargement of suspicious spiculated and cavitary nodule in the RIGHT upper lobe. MRI: brain ordered UGI: . Cardiopulmonary Testing . PFT's/dlco: 07/04/2023 PRE-BRONCH POST-BRONCH Pre LLN Pred ULN %Pred Post %Pred %Chg SPIROMETRY FVC (L) 4.26 2.73 3.67 4.63 116 4.37 119 3 FEV1 (L) 2.40 2.04 2.79 3.50 86 2.47 88% 2 LUNG DIFFUSION DLCOunc (ml/min/mmHg) 23.32 14.99 24.93 34.86 93% Cardiac:ECHO scheduled 10/16/2023 Office Notes/Consults Dr. Patterson 10/03/2023 ASSESSMENT/PLAN: #NSCLC, squamous histology, clinical stage III I explained the diagnosis, natural history, treatment options pending final staging. Still need an MRI brain. Will present to tumor board for consideration for multidisciplinary approach. If surgical resection is an option, could treat with neoadjuvant chemoimmunotherapy. If he is not a surgical candidate, could consider treatment with definitive chemoRT per PACIFIC regimen. -MRI brain -present to tumor board History of: FAMILY HISTORY Problem Relation Age of Onset other (high blood pressure [Other]) Mother Diabetes Mother Hearing Loss Mother Prostate Cancer Other PAST MEDICAL HISTORY No date: Abdominal aortic aneurysm (HCC) Comment: without rupture No date: Elevated PSA No date: Hearing loss No date: HTN (hypertension) No date: Lumbosacral neuritis No date: Malignant neoplasm of prostate (HCC) No date: Other and unspecified hyperlipidemia No date: Smoker No date: Spinal stenosis of lumbar region with neurogenic claudication PAST SURGICAL HISTORY 06/05: COLONOSCOPY age 20: HERNIA REPAIR HX Social History Tobacco Use Smoking status: Former Packs/day: 0.15 Years: 40.00 Additional pack years: 0.00 Total pack years: 6.00 Types: Cigarettes Quit date: 07/2021 Years since quittin.2 Passive exposure: Past Smokeless tobacco: Never Substance Use Topics Alcohol use: Not Currently Alcohol/week: 6.0 standard drinks of alcohol Types: 6 Glasses of wine per week Drug use: No Request Thoracic surgery consult with Dr. Lizama at for RLL lung cancer, RUL pet avid nodule with 6MW. Pt. is ADELINA Rowland RN T [facility] 10-10-2023 Miscellaneous Notes Thoracic Surgery Consultation - review of records for appointment scheduling Received medical records from the office of Kevin Patterson [address] [facility] [address] Patient is being referred to Paula Lizama MD, PhD by Kevin Patterson for Lung Cancer Outside hospital records scanned / in [facility] / Care Everywhere Pathology:09/19/2023 Component FINAL DIAGNOSIS A, B. Lung, right lower lobe, bronchoscopic biopsies: - Fragments of keratinizing squamous cell carcinoma. FINAL DIAGNOSIS A - Lymph Node, Transbronchial, Aspirate/Fine Needle Aspirate - 11RS Negative for malignant cells. Benign lymphoid sample. B - Lymph Node, Transbronchial, Aspirate/Fine Needle Aspirate - 11RI Negative for malignant cells. Not a lymphoid sample. C - Lung, Right Lower Lobe, Aspirate/Fine Needle Aspirate Positive for malignant cells. 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 D - Lung, Right Lower Lobe, [place] Positive for malignant cells. 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 Procedures: EBUS 09/19/2023 Impression: - Right lower lobe mass - The airway examination of the left lung was normal. - An exophytic mass was found in the superior segment of the right lower lobe (B6). This lesion is likely malignant. - Lymph node sizing and sampling was performed. - Rapid On-Site Evaluation (GWEN): Preliminary cytology was suggestive suggestive of benign-appearing lymphoid tissue in node level 11Rs and node level 11Ri and suggestive of benign inflammatory changes in RLL mass (final results are pending). - Brushings were obtained. - An endobronchial biopsy was performed. Imaging . PET/CT: 06/20/2023 IMPRESSION: HEAD/NECK: * No FDG avid neoplastic process. CHEST: * FDG avid right upper lobe lung nodule and medial right lower lobe solid lesion with groundglass extension, concerning for neoplastic process. Mildly prominent mediastinal lymph nodes with mild uptake likely reactive. ABDOMEN/PELVIS: * No FDG avid neoplastic process. Infrarenal aortic aneurysm. MUSCULOSKELETAL: * No FDG avid neoplastic process. CT (chest): 08/28/2023 IMPRESSION: 1. Further interval enlargement of suspicious masslike opacity in the RIGHT lower lobe and mild enlargement of suspicious spiculated and cavitary nodule in the RIGHT upper lobe. MRI: brain ordered UGI: . Cardiopulmonary Testing . PFT's/dlco: 07/04/2023 PRE-BRONCH POST-BRONCH Pre LLN Pred ULN %Pred Post %Pred %Chg SPIROMETRY FVC (L) 4.26 2.73 3.67 4.63 116 4.37 119 3 FEV1 (L) 2.40 2.04 2.79 3.50 86 2.47 88% 2 LUNG DIFFUSION DLCOunc (ml/min/mmHg) 23.32 14.99 24.93 34.86 93% Cardiac:ECHO scheduled 10/16/2023 Office Notes/Consults Dr. Patterson 10/03/2023 ASSESSMENT/PLAN: #NSCLC, squamous histology, clinical stage III I explained the diagnosis, natural history, treatment options pending final staging. Still need an MRI brain. Will present to tumor board for consideration for multidisciplinary approach. If surgical resection is an option, could treat with neoadjuvant chemoimmunotherapy. If he is not a surgical candidate, could consider treatment with definitive chemoRT per PACIFIC regimen. -MRI brain -present to tumor board History of: FAMILY HISTORY Problem Relation Age of Onset other (high blood pressure [Other]) Mother Diabetes Mother Hearing Loss Mother Prostate Cancer Other PAST MEDICAL HISTORY No date: Abdominal aortic aneurysm (HCC) Comment: without rupture No date: Elevated PSA No date: Hearing loss No date: HTN (hypertension) No date: Lumbosacral neuritis No date: Malignant neoplasm of prostate (HCC) No date: Other and unspecified hyperlipidemia No date: Smoker No date: Spinal stenosis of lumbar region with neurogenic claudication PAST SURGICAL HISTORY 06/05: COLONOSCOPY age 20: HERNIA REPAIR HX Social History Tobacco Use Smoking status: Former Packs/day: 0.15 Years: 40.00 Additional pack years: 0.00 Total pack years: 6.00 Types: Cigarettes Quit date: 07/2021 Years since quittin.2 Passive exposure: Past Smokeless tobacco: Never Substance Use Topics Alcohol use: Not Currently Alcohol/week: 6.0 standard drinks of alcohol Types: 6 Glasses of wine per week Drug use: No Request Thoracic surgery consult with Dr. Lizama at for RLL lung cancer, RUL pet avid nodule with 6MW. Pt. is ADELINA Rowland, RN documented in this encounter [facility] 10-10-2023 History of Present illness Narrative It is the responsibility of the presenting physician to facilitate any and all recommendations discussed during Thoracic Tumor Board if they are to be implemented into the patients plan of care. Pending Staff Approval [facility] DISCIPLINARY THORACIC TUMOR BOARD: October 10, 2023 Presenting Physician(s): Kevin Patterson MD Stevie Sanchez 73 year old [phone] Staff in Attendance: Staff representing all Thoracic Oncology Disciplines present Type of Review: Initial Review Pathology Review: No Radiology Review: Yes Tobacco Use: .15 packs/day, for 40 years. Quit 07/28/2021. Types: Cigarettes PMH: PAST MEDICAL HISTORY No date: Abdominal aortic aneurysm (HCC) Comment: without rupture No date: Elevated PSA No date: Hearing loss No date: HTN (hypertension) No date: Lumbosacral neuritis No date: Malignant neoplasm of prostate (HCC) No date: Other and unspecified hyperlipidemia No date: Smoker No date: Spinal stenosis of lumbar region with neurogenic claudication HPI: 73 year old male 05/17/23 CTA chest: Nodular opacification in the [...] 11 Rl and 11RS nodes *PD-L1 0% Diagnosis: Non-small cell lung cancer, squamous cell carcinoma, either 2 synchronous primary lesions vs cT4 (two separate nodules in same lobe of lung), cN0 Outcome: The collaborative recommendation was referral to thoracic surgery, consideration for neoadjuvant systemic therapy. These recommendations will be communicated to the patient by the presenting physician(s). The above documentation represents the discussion outcomes after review of this patients case during the weekly Thoracic Tumor Board conference. Final treatment planning will be determined by the primary treatment team staff physicians. Signed by:Kevin Patterson MD documented in this encounter [facility] 10-03-2023 History of Present illness Narrative Images from the original note were not included. HISTORY OF PRESENT ILLNESS: Stevie Sanchez is a 73 year old male Cancer [...] 11 Rl and 11RS nodes *PD-L1 0% Misc: *Unfavorable intermediate risk prostate adenocarcinoma, initial PSA 7.52 ng/mL, biopsy [place] score 3 + 4 = 7 (grade group 2), clinical stage T1c, N0, M0, stage IIA [cT1a-c/cT2a, N0, M0, PSA >=10 & <20, GG 1] (AJCC 8th ed.), s/p TRUS Random biopsy 09/24/2020, s/p Lupron 45 mg IM injection 11/05/2020, and s/p external beam radiation therapy completed 01/15/2021 (70 Gy/28fx). *5 cm AAA under surveillance with Tea Jackson TREATMENT HISTORY: SCANS: SUBJECTIVE: Feels near his baseline. ASSESSMENT/PLAN: #NSCLC, squamous histology, clinical stage III I explained the diagnosis, natural history, treatment options pending final staging. Still need an MRI brain. Will present to tumor board for consideration for multidisciplinary approach. If surgical resection is an option, could treat with neoadjuvant chemoimmunotherapy. If he is not a surgical candidate, could consider treatment with definitive chemoRT per PACIFIC regimen. -MRI brain -present to tumor board Medical Decision Making: Level: 4 - Moderate Written and verbal health teaching given to patient, patient verbalizes understanding and agrees with treatment plan. PAST MEDICAL HISTORY No date: Abdominal aortic aneurysm (HCC) Comment: without rupture No date: Elevated PSA No date: Hearing loss No date: HTN (hypertension) No date: Lumbosacral neuritis No date: Malignant neoplasm of prostate (HCC) No date: Other and unspecified hyperlipidemia No date: Smoker No date: Spinal stenosis of lumbar region with neurogenic claudication PAST SURGICAL HISTORY 06/05: COLONOSCOPY age 20: HERNIA REPAIR HX FAMILY HISTORY Problem Relation Age of Onset other (high blood pressure [Other]) Mother Diabetes Mother Hearing Loss Mother Prostate Cancer Other Social History Tobacco Use Smoking status: Former Packs/day: 0.15 Years: 40.00 Additional pack years: 0.00 Total pack years: 6.00 Types: Cigarettes Quit date: 07/2021 Years since quittin.1 Passive exposure: Past Smokeless tobacco: Never Substance Use Topics Alcohol use: Not Currently Alcohol/week: 6.0 standard drinks of alcohol Types: 6 Glasses of wine per week Drug use: No ALLERGIES: ALLERGIES No Known Allergies CURRENT OUTPATIENT MEDICATIONS: amoxicillin-clavulanate potassium (AUGMENTIN) 875-125 mg per tablet Take 1 tablet by mouth two times a day for 14 days. fluticasone-salmeterol (WIXELA INHUB) 250-50 mcg/dose inhaler Inhale 1 Puff as instructed two times a day. lisinopril-hydroCHLOROthiazide (ZESTORETIC) 20-12.5 mg per tablet Take [...] in the MR contrast administration guidelines link iv contrast (will be provided with radiology test) CTA CHST/ABD/PEL LE.No IV access, insert saline lock prior to the sedation, infusion, injection for imaging exam. Discontinue saline lock post exam. If Pt. has a central line or IVAD, may access for administration according to line specific nursing protocol. Once exam is complete flush line and de-access according to line specific nursing protocol in the CT contrast administration guidelines link. iv contrast (will be provided with radiology test) CTA ABD/PEL LE - No IV access, insert saline lock prior to the sedation, infusion, injection for imaging exam. Discontinue saline lock post exam. If Pt. has a central line or IVAD, may access for administration according to line specific nursing protocol. Once exam is complete flush line and de-access according to line specific nursing protocol in the CT contrast administration guidelines link. iv contrast (will be provided with radiology test) CT ABD/PEL -Inject, intravenously, once for 1 dose.No IV [...] in the CT contrast administration guidelines link. (Patient not taking: Reported on 07/28/2023) iv contrast (will be provided with radiology test) CT ABD/PEL -Inject, intravenously, once for 1 dose.No IV [...] in the CT contrast administration guidelines link. (Patient not taking: Reported on 07/28/2023) REVIEW OF SYSTEMS: Review of systems unremarkable except as noted in the HPI. PHYSICAL EXAMINATION: VITAL SIGNS: BP 114/74 Pulse 79 Temp (Src) 98 (Temporal) Resp 14 Ht 5' 8.406[Garrett Acosta MA[ (1.74m) Wt 184 lb 4.9 oz (83.6kg) SpO2 96% BMI 27.68 kg/(m^2). Physical Exam Constitutional: General: He is not in acute distress. Appearance: Normal appearance. HENT: Head: Normocephalic and atraumatic. Eyes: Extraocular Movements: Extraocular movements intact. Pulmonary: Effort: Pulmonary effort is normal. No respiratory distress. Skin: Coloration: Skin is not jaundiced. Neurological: General: No focal deficit present. Mental Status: He is alert. Mental status is at baseline. LABS: Latest Ref Rng & Units 09/11/2023 CBC WBC 3.70 - 11.00 k/uL 8.64 RBC 4.20 - 6.00 m/uL 5.19 Hemoglobin 13.0 - 17.0 g/dL 15.9 Hematocrit 39.0 - 51.0 % 47.5 MCV 80.0 - 100.0 fL 91.5 MCH 26.0 - 34.0 pg 30.6 MCHC 30.5 - 36.0 g/dL 33.5 RDW-CV 11.5 - 15.0 % 15.5 Platelet Count 150 - 400 k/uL 338 MPV 9.0 - 12.7 fL 8.4 Baso% % 1.3 Abs Neut (ANC) 1.45 - 7.50 k/uL 6.54 Abs Lymph 1.00 - 4.00 k/uL 1.20 Abs Luna <0.87 k/uL 0.67 Abs Eosin <0.46 k/uL 0.08 Abs Baso <0.11 k/uL 0.11 NRBC /100 WBC 0.0 Latest Ref Rng & Units 09/11/2023 CMP Sodium 136 - 144 mmol/L 133 Potassium 3.7 - 5.1 mmol/L 3.5 Chloride 98 - 107 mmol/L 90 CO2 22 - 30 mmol/L 29 Glucose 74 - 99 mg/dL 128 BUN 9 - 24 mg/dL 6 Creatinine 0.73 - 1.22 mg/dL 0.64 EGFR >=60 mL/min/1.73m 101 Calcium 8.5 - 10.2 mg/dL 9.8 No results found for: TSH Kevin Patterson MD documented in this encounter [facility] 09-22-2023 Telephone encounter Note We are unable to schedule for Oncology but I did call the patient and give Stevie the phone number to call and schedule [facility] 09-22-2023 Miscellaneous Notes We are unable to schedule for Oncology but I did call the patient and give Stevie the phone number to call and schedule Spoke to patient regarding recent EBUS results. Will consult oncology Patient was also advised to merchandise pickup/receiving associate antibiotics from his pharmacy. Thad Garrett MD documented in this encounter [facility] 09-22-2023 Telephone encounter Note Spoke to patient regarding recent EBUS results. Will consult oncology Patient was also advised to merchandise pickup/receiving associate antibiotics from his pharmacy. Thad Garrett MD [facility] 09-19-2023 Note HNO ID: [id number] Author: MOISES NIEVES AA Service: ? Author Type: Exhibit Artist Type: Anesthesia Procedure Notes Filed: 09/19/2023 10:24 Note Text: ANESTHESIOLOGY PROCEDURE NOTE Airway General Information Procedure Start Time/Medication Administration: 09/19/2023 10:14 AM Procedure End Time: 09/19/2023 10:14 AM Patient location during procedure: OR Patient identity confirmed: [employer] teammate Staffing Anesthesiologist: Pradeep An MD CAA: Moises Nieves AA Performed by: SANDRA Indications and Patient Condition Indications for airway management: anesthesia Preoxygenated: yes anesthesia circuit Patient position: sniffing Method: asleep Difficult Mask: No Final Airway Details Final airway type: supraglottic airway Number of attempts at approach: 1 Final Supraglottic Airway: IGEL Size 5 Seal Adequate: yes Airway not difficult SIGNATURE: CHIQUIS Nolasco PATIENT NAME: Stevie Sanchez DATE: September 19, 2023 TIME: 10:23 AM CSN: [id number] [facility] 09-19-2023 Note [facility] Patient Name: Stevie Sanchez Procedure Date: 09/19/2023 9:58 AM Date of : 1950 Admit Type: Outpatient Age: 73 Room: [facility] Room 2 Gender: Male Attending MD: Arcadio Hodgson MD, [id number] Procedure: Bronchoscopy Indications: Right lower lobe mass Providers: Arcadio Hodgson MD (Doctor), Letha Sheridan RN (Assisting Nurse) Referring MD: Requesting Physician: Thad Garrett MD Patient Profile: Refer to note in patient chart for documentation of history and physical. Medicines: General Anesthesia, See the Anesthesia note for documentation of the administered medications Complications: No immediate complications Procedure: Pre-Anesthesia Assessment: - A History and Physical has been performed. Patient meds and allergies have been reviewed. The risks and benefits of the procedure and the sedation options and risks were discussed with the patient. All questions were answered and informed consent was obtained. Patient identification and proposed procedure were verified prior to the procedure by the physician, the nurse and the anesthesiologist in the procedure room. Mental Status Examination: normal. Airway Examination: normal oropharyngeal airway. Respiratory Examination: clear to auscultation. CV Examination: regular rate and rhythm. ASA Grade Assessment: III - A patient with severe systemic disease. After reviewing the risks and benefits, the patient was deemed in satisfactory condition to undergo the procedure. The anesthesia plan was to use general anesthesia. Immediately prior to administration of medications, the patient was re-assessed for adequacy to receive sedatives. The heart rate, respiratory rate, oxygen saturations, blood pressure, adequacy of pulmonary ventilation, and response to care were monitored throughout the procedure. The physical status of the patient was re-assessed after the procedure. After obtaining informed consent, the Bronchoscope was introduced through the mouth, via laryngeal mask airway and advanced to the tracheobronchial tree. the Bronchoscope was introduced through the mouth, via laryngeal mask airway and advanced to the tracheobronchial tree. The procedure was accomplished without difficulty. The patient tolerated the procedure well. Findings: The laryngeal mask airway is in good position. The vocal cords appear normal. The subglottic space is normal. The trachea is of normal caliber, but has an A-frame stenosis throughout (see photos). The patti is sharp. The tracheobronchial tree of the left lung was examined to at least the first subsegmental level. Bronchial mucosa and anatomy are normal; there are no endobronchial lesions, and no secretions. Right Lung Abnormalities: A completely obstructing mass was found in the middle portion in the superior segment of the right lower lobe (B6). The mass was medium-sized and exophytic. The lesion was not traversed. Once the airway inspection was completed, the standard bronchoscope was withdrawn and the convex probe endobronchial ultrasound (EBUS) bronchoscope was inserted through the same route. Lymph Nodes: The following lymph nodes were evaluated and/or sampled. Lymph node sizing was performed via endobronchial ultrasound. Sampling by transbronchial needle aspiration was also performed using an Olympus ViziShot 22 gauge needle and sent for routine cytology (and culture from the mass). - The 11Rs (superior interlobar) node was 7 mm by EBUS, [address] and PET scan was not done. Four samples with the needle were obtained. - The 11Ri (inferior interlobar) node was 8 mm by EBUS, [address] and PET scan was not done. Three samples with the needle were obtained. - The 7 (subcarinal) node was 4 mm by EBUS, [address] and PET scan was not done. Sampling was not done due to size criteria (less than 5 mm). - The 4R (lower paratracheal) node was 4 mm by EBUS, [address] and PET scan was not done. Sampling was not done due to size criteria (less than 5 mm). - The RLL mass node was 29 mm by EBUS, [address] and PET scan was not done. Ten samples with the needle were obtained. Lymph Nodes: Rapid On-Site Evaluation (GWEN): Preliminary cytology was suggestive of benign-appearing lymphoid tissue (final results are pending) in the right superior interlobar region (level 11Rs) and right inferior interlobar region (level 11Ri). Preliminary cytology was suggestive of benign inflammatory changes (final results are pending) in the RLL mass. The scope was withdrawn and replaced with the diagnostic bronchoscope. - Brushings of the endobronchial nodule were obtained in the superior segment of the right lower lobe with a cytology brush and sent for routine cytology. Three samples were obtained. - Endobronchial biopsies of the endobronchial nodule were performed in the superior segment (more content not included)... [facility] 09-14-2023 History of Present illness Narrative Images from the original note were not included. [facility] Department of Cardiovascular Medicine SECTION OF REGIONAL CARDIOLOGY OUTPATIENT VISIT DATE September 13, 2023 OUTPATIENT VISIT TYPE NEW CONSULTATION PRIMARY CARE PHYSICIAN: Praful Su (Maggy) [address] [place] [address] CHIEF COMPLAINT: Preoperative CV risk assessment HISTORY OF PRESENT ILLNESS: Mr. Sanchez is a pleasant 73 year old male here for cardiovascular evaluation. He has a history of Abdominal Aortic Aneurysm, HTN, and HLD. He is scheduled to undergo a Bronchoscopy and EBUS for a discovered lung mass. He was asked to see cardiology as the last time when he had a bronchoscopy and biopsy his HR went up into the 140-150 range and he was treated. According to the note, the patient was reportedly in Atrial Fibrillation. However, I do NOT have a copy of the strips and can NOT confirm this. The following portions of the patient's history were reviewed and updated as appropriate, allergies, current medications, past medical, social, surgical, and family history and problem list. PAST MEDICAL HISTORY Diagnosis Date Abdominal aortic aneurysm (HCC) without rupture Elevated PSA Hearing loss HTN (hypertension) Lumbosacral neuritis Malignant neoplasm of prostate (HCC) Other and unspecified hyperlipidemia Smoker Spinal stenosis of lumbar region with neurogenic claudication PAST SURGICAL HISTORY Procedure Laterality Date COLONOSCOPY 06/05 HERNIA REPAIR HX age 20 FAMILY HISTORY Problem Relation Age of Onset other (high blood pressure [Other]) Mother Diabetes Mother Hearing Loss Mother Prostate Cancer Other Social History Tobacco Use Smoking status: Former Packs/day: 0.15 Years: 40.00 Additional pack years: 0.00 Total pack years: 6.00 Types: Cigarettes Quit date: 07/2021 Years since quittin.1 Passive exposure: Past Smokeless tobacco: Never Substance Use Topics Alcohol use: Not Currently Alcohol/week: 6.0 standard drinks of alcohol Types: 6 Glasses of wine per week Drug use: No ALLERGIES No Known Allergies CURRENT MEDICATIONS: fluticasone-salmeterol (WIXELA INHUB) 250-50 mcg/dose inhaler Inhale 1 Puff as instructed two times a day. lisinopril-hydroCHLOROthiazide (ZESTORETIC) 20-12.5 mg per tablet Take 1 tablet by mouth once daily. amLODIPine (NORVASC) 5 mg tablet Take 1 tablet by mouth once daily. atorvastatin (LIPITOR) 20 mg tablet Take 1 tablet by mouth once daily. gabapentin (NEURONTIN) 300 mg capsule TAKE 2 CAPSULES BY MOUTH 3 TIMES A DAY iv contrast (will be provided with radiology test) CTA CHST/ABD/PEL LE.No IV access, insert saline lock prior to the sedation, infusion, injection for imaging exam. Discontinue saline lock post exam. If Pt. has a central line or IVAD, may access for administration according to line specific nursing protocol. Once exam is complete flush line and de-access according to line specific nursing protocol in the CT contrast administration guidelines link. iv contrast (will be provided with radiology test) CTA ABD/PEL LE - No IV access, insert saline lock prior to the sedation, infusion, injection for imaging exam. Discontinue saline lock post exam. If Pt. has a central line or IVAD, may access for administration according to line specific nursing protocol. Once exam is complete flush line and de-access according to line specific nursing protocol in the CT contrast administration guidelines link. iv contrast (will be provided with radiology test) CT ABD/PEL -Inject, intravenously, once for 1 dose.No IV [...] in the CT contrast administration guidelines link. (Patient not taking: Reported on 07/28/2023) iv contrast (will be provided with radiology test) CT ABD/PEL -Inject, intravenously, once for 1 dose.No IV [...] in the CT contrast administration guidelines link. (Patient not taking: Reported on 07/28/2023) I have personally interviewed, confirmed and edited the above information if obtained by others. Physical Exam There were no vitals taken for this visit. Gen: alert, no acute distress HEENT: normocephalic, atraumatic, no rinorrhea, no congestion, normal hearing, EOMI, no eye discharge Heart: no murmurs, S1/S2+, regular rate and rhythm Lungs: no wheezing, no rales, symmetric expansion, nonlabored Abdomen: soft, nontender, nondistended Musculoskeletal: no edema, nontender Neurological: no focal deficits, alert, oriented Psychatric: cooperative, appropriate Pertinent Diagnostics/Labs/Data reviewed (ECGs and echo listed personally reviewed today or prior) and include: Last EKG Result Conclusion ECG COMPLETE Collected: 06/20/2023 2:07 PM (Edited Result - FINAL) Impression: Sinus rhythm Atrial premature complexes Abnormal ECG Confirmed by KRYSTLE AGRAWAL MD ([id number]) on 06/22/2023 11:31:58 AM Also confirmed by KRYSTLE AGRAWAL MD ([id number]), content editor SANDY CARBONE ([id number]) on 06/23/2023 2:39:[address] Result Conclusion CT CHEST WO IVCON Exam End: 08/28/2023 2:00 PM (Final result) Impression: IMPRESSION: 1. Further interval enlargement of suspicious masslike opacity in the RIGHT lower lobe and mild enlargement of suspicious spiculated and cavitary nodule in the RIGHT upper lobe. Quantitative Equity Head[facility] Transcribe Date/Time: Sep 03 2023 12:14P Dictated by : IVANIA WRIGHT MD This examination was interpreted and the report reviewed and electronically signed by: IVANIA WRIGHT MD on Sep 03 2023 12:22PM EST Assessment & Plan Preoperative Cardiovascular Examination Lung Mass Coronary Artery Calcifications Impression: This is a 73 yo male with a PMHx of Abdominal Aortic Aneurysm, HTN, and HLD who presents prior to a planned bronchoscopy and EBUS for his lung mass. EKG 06/20/23: NSR with APCs but without any evidence of ischemia. Abdominal US 04/25/23: Infrarenal AA 5.22 x 5.[address] on 08/28/23 did show coronary calcifications Plan: - Vitals today: BP of 122/78 and a HR of 77 - Currently on Lisinopril-HCTZ 20-12.5mg, Norvasc 5mg and Lipitor 20mg. - He has not had any changes to his overall symptomatology - He is, from a cardiac standpoint, optimized for this surgery - He is intermediate risk for this intermediate risk procedure - He should hold his anti-hypertensive medications - Will order an echo for now, however, this should not hold him back from surgery. - Will likely need a more extensive work up following the surgery. Current Outpatient Medications on File Prior to Visit Medication Sig fluticasone-salmeterol (WIXELA INHUB) 250-50 mcg/dose inhaler Inhale 1 Puff as instructed two times a day. lisinopril-hydroCHLOROthiazide (ZESTORETIC) 20-12.5 mg per tablet Take 1 tablet by mouth once daily. amLODIPine (NORVASC) 5 mg tablet Take 1 tablet by mouth once daily. atorvastatin (LIPITOR) 20 mg tablet Take 1 tablet by mouth once daily. gabapentin (NEURONTIN) 300 mg capsule TAKE 2 CAPSULES BY MOUTH 3 TIMES A DAY iv contrast (will be provided with radiology test) CTA CHST/ABD/PEL LE.No IV access, insert saline lock prior to the sedation, infusion, injection for imaging exam. Discontinue saline lock post exam. If Pt. has a central line or IVAD, may access for administration according to line specific nursing protocol. Once exam is complete flush line and de-access according to line specific nursing protocol in the CT contrast administration guidelines link. iv contrast (will be provided with radiology test) CTA ABD/PEL LE - No IV access, insert saline lock prior to the sedation, infusion, injection for imaging exam. Discontinue saline lock post exam. If Pt. has a central line or IVAD, may access for administration according to line specific nursing protocol. Once exam is complete flush line and de-access according to line specific nursing protocol in the CT contrast administration guidelines link. iv contrast (will be provided with radiology test) CT ABD/PEL -Inject, intravenously, once for 1 dose.No IV [...] in the CT contrast administration guidelines link. (Patient not taking: Reported on 07/28/2023) iv contrast (will be provided with radiology test) CT ABD/PEL -Inject, intravenously, once for 1 dose.No IV [...] in the CT contrast administration guidelines link. (Patient not taking: Reported on 07/28/2023) No current facility-administered medications on file prior to visit. Return in 3 months with communication in between if symptoms or changes occur. Thank you, CONTACT INFORMATION: Silvano Mccrary MD Cardiovascular Medicine Staff Interventional Cardiology Staff [facility] [address] [place] [address] documented in this encounter [facility] 09-11-2023 History and physical note HISTORY AND PHYSICAL EXAMINATION SERVICE DATE: 09/11/2023 SERVICE TIME: 3:06 PM PRIMARY CARE PHYSICIAN: Praful Su MD REASON FOR VISIT: Stevie Sanchez is a 73 year old male who is scheduled for Procedure(s): BRONCHOSCOPY,RIGID/FLEXIBLE W/ FLUORO,W/ENDOBRONCHIAL ULTRASOUND (EBUS) GUIDED TRANSTRACHEAL/ TRANSBRONCHIAL ASPIRATION/BIOPSY,1 OR 2 MEDIASTINAL AND/OR HILAR LYMPH NODE STATIONS/STRUCTURES (N/A) at the request of Dr. Arcadio Hodgson for consultation. My final recommendation will be communicated back to the requesting physician by way of shared medical record or letter. Subjective 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 Paresthesias Lumbosacral Neuritis Abdominal Aortic Aneurysm (Aaa) Without Rupture (Hcc) Hdl Deficiency Prostate Cancer (Hcc) Paroxysmal Atrial Fibrillation (Hcc) COVID-19 Immunization Status Overdue - Covid-19 Vaccine ( season) Overdue since 06/16/2023 02/14/2023 Imm Admin: COVID-19 vaccine, age 12+ yr, season (PFIZER-BIONTECH) 12/28/2021 Imm Admin: COVID-19 vaccine, age 12+ yr, bivalent (PFIZER-BIONTECH) 02/04/2021 Imm Admin: COVID-19 original vaccine, age 12+ yr, monovalent (PFIZER-BIONTECH - PURPLE TOP) Only the first 3 history entries have been loaded, but more history exists. CHIEF COMPLAINT: Pre-Op HPI: Stevie Sanchez is a 73 year old male presenting for pre-anesthesia consultation. Pt has history of lung mass. Above procedure recommended to manage symptoms. Procedure scheduled on 09/19/2023 at [facility]. REVIEW OF SYSTEMS: General: No weight loss, malaise or fevers. Neurological: Negative for: headaches, Parkinson's disease, seizures and strokes. Respiratory: Positive for: asthma, COPD and tobacco use. Negative for: current cough, dyspnea, URI < 2 weeks and obstructive sleep apnea. Cardiovascular: Positive for: abdominal aortic aneurysm, atrial fibrillation, hyperlipidemia and hypertension Negative for: AICD/PPM, anticoagulation therapy, arrhythmia, CAD, chest pain, CHF, DVT/PE, recent CO, murmur/valvular heart disease, open heart surgery and valve surgery. GI: Negative for: abdominal pain, dysphagia, GERD, liver disease, nausea and vomiting. : Negative for: on dialysis, dysuria, hematuria and renal failure. Endocrine: + Prediabetes Negative for: diabetes mellitus, hyperthyroidism and hypothyroidism. Hematology: Negative for: anemia, bruises/bleeds easily, factor V Leiden, hemophilia, thrombocytopenia, von Willebrand disease and chronic anti-coagulation/platelet meds. Oncology: + prostate ca. No history of CA metastasis, chemo within 30 days, or radiotherapy within 90 days. No history of oncological symptoms or problems. Psych: Negative for: anxiety, bipolar disorder and depression. Musculoskeletal: Negative for joint pain or swelling, back pain or muscle pain. Skin: Negative for lesions, rash and itching. PAST MEDICAL HISTORY Diagnosis Date Abdominal aortic aneurysm (HCC) without rupture Elevated PSA Hearing loss HTN (hypertension) Lumbosacral neuritis Malignant neoplasm of prostate (HCC) Other and unspecified hyperlipidemia Smoker Spinal stenosis of lumbar region with neurogenic claudication PAST SURGICAL HISTORY Procedure Laterality Date COLONOSCOPY 06/05 HERNIA REPAIR HX age 20 FAMILY HISTORY Problem Relation Age of Onset other (high blood pressure [Other]) Mother Diabetes Mother Hearing Loss Mother Prostate Cancer Other Social History Tobacco Use Smoking status: Former Packs/day: 0.15 Years: 40.00 Additional pack years: 0.00 Total pack years: 6.00 Types: Cigarettes Quit date: 07/2021 Years since quittin.1 Passive exposure: Past Smokeless tobacco: Never Substance Use Topics Alcohol use: Not Currently Alcohol/week: 6.0 standard drinks of alcohol Types: 6 Glasses of wine per week Drug use: No Prior to Admission medications as of 09/11/23 1505 Medication Sig Last Dose Taking fluticasone-salmeterol (WIXELA INHUB) 250-50 mcg/dose inhaler Inhale 1 Puff as instructed two times a day. Taking Yes lisinopril-hydroCHLOROthiazide (ZESTORETIC) 20-12.5 mg per tablet Take 1 tablet by mouth once daily. Taking Yes amLODIPine (NORVASC) 5 mg tablet Take 1 tablet by mouth once daily. Taking Yes atorvastatin (LIPITOR) 20 mg tablet Take 1 tablet by mouth once daily. Taking Yes gabapentin (NEURONTIN) 300 mg capsule TAKE 2 CAPSULES BY MOUTH 3 TIMES A DAY Taking Yes iv contrast (will be provided with radiology test) CTA CHST/ABD/PEL LE.No IV access, insert saline lock prior to the sedation, infusion, injection for imaging exam. Discontinue saline lock post exam. If Pt. has a central line or IVAD, may access for administration according to line specific nursing protocol. Once exam is complete flush line and de-access according to line specific nursing protocol in the CT contrast administration guidelines link. iv contrast (will be provided with radiology test) CTA ABD/PEL LE - No IV access, insert saline lock prior to the sedation, infusion, injection for imaging exam. Discontinue saline lock post exam. If Pt. has a central line or IVAD, may access for administration according to line specific nursing protocol. Once exam is complete flush line and de-access according to line specific nursing protocol in the CT contrast administration guidelines link. iv contrast (will be provided with radiology test) CT ABD/PEL -Inject, intravenously, once for 1 dose.No IV [...] in the CT contrast administration guidelines link. Patient not taking: Reported on 07/28/2023 iv contrast (will be provided with radiology test) CT ABD/PEL -Inject, intravenously, once for 1 dose.No IV [...] in the CT contrast administration guidelines link. Patient not taking: Reported on 07/28/2023 No medication comments found. ALLERGIES No Known Allergies Objective PHYSICAL EXAM: General: alert and oriented and healthy appearance. Pertinent negatives noted - not distressed. Skin: normal color, no rash or lesions. HEENT: EOM intact, pupils equal round and pupils reactive to light. Pertinent negatives noted - no carotid bruit. Cardiovascular: regular rate and rhythm, normal S1 and S2, no rub, murmurs, or gallop. Respiratory: normal breath sounds, no wheezes or crackles. No chest wall deformity or tenderness. Abdomen: bowel sounds present and soft. Pertinent negatives noted - not tender. Extremities: no deformity, no edema or tenderness, no joint swelling or clubbing. Neurological: normal cognition and motor skills. Gait normal. No weakness or sensory deficit. PAIN ASSESSMENT: VITALS: BP 119/74 Pulse 85 Temp 98.7 Resp 18 Ht 5' 10 (1.78m) Wt 181 lb 7 oz (82.3kg) SpO2 96% BMI 26.03 kg/(m^2). Diagnostic tests reviewed for today's visit: Lab Value Units Date High Low HB 15.9 g/dL 09/11/2023 17.0 13.0 HCT 47.5 % 09/11/2023 51.0 39.0 WBC 8.64 k/uL 09/11/2023 11.00 3.70 PLT 338 k/uL 09/11/2023 400 150 NA 133 mmol/L 09/11/2023 144 136 K 3.5 mmol/L 09/11/2023 5.1 3.7 GLUC 128 mg/dL 09/11/2023 99 74 BUN 6 mg/dL 09/11/2023 24 9 CREAT 0.64 mg/dL 09/11/2023 1.22 0.73 PTSEC No results within date range. INR No results within date range. APTT No results within date range. ALT No results within date range. AST No results within date range. TBILI No results within date range. TSH No results within date range. Lab [...] 5.9 Recent Results (from the past 8760 hour(s)) ECG COMPLETE Collection Time: 06/20/23 2:07 PM Result Value Ventricular Rate 80 Atrial Rate 83 P-R Interval 155 QRS Duration 89 QT Interval 402 QTC Calculation (Bazett) 464 Calculated P [place] 59 Calculated R [place] 44 Calculated T [place] 18 Impression Sinus rhythm Atrial premature complexes Abnormal ECG Confirmed by KRYSTLE AGRAWAL MD ([id number]) on 06/22/2023 11:31:58 AM Also confirmed by KRYSTLE AGRAWAL MD ([id number]), content editor SANDY CARBONE ([id number]) on 06/23/2023 2:39:58 PM No results found for this or any previous visit (from the past 20287 hour(s)). Assessment Patient has the following medical conditions which may affect merle-operative course: Abdominal aortic aneurysm (AAA) without rupture (HCC) Assessment: Follows with vascular. Monitored with imaging q 6 months. Per most recent note (Dr. Jackson, 06/06/23): Mr. Sanchez is a 72 year old male with 5 cm fusiform aneurysm. RTC 6 m with ultrasound AAA. Reviewed symptoms of rupture and patient to seek urgent medical attention if symptomatic. Primary hypertension Assessment: Follows with PCP, adherent to RX. In office today BP: 119/74 Mixed hyperlipidemia Assessment: Adherent to statin therapy. Cigarette nicotine dependence in remission Assessment: Quit 2021. Encouraged continued cessation. Glucose intolerance (impaired glucose tolerance) Assessment: PCP monitors. Not on rx. Hemoglobin A1C (%) Date Value 05/02/2023 6.1 02/08/2021 6.0 Prostate cancer (HCC) Assessment: Hx of prostate cancer s/p XRT. Paroxysmal atrial fibrillation (HCC) Assessment: Last bronchoscopy in 05/2023, course was complicated when pt developed atrial fibrillation with rvr post-op per pt physical instructor note. Consult to cardiology was placed. On exam, pt is in regular rhythm. Denies palpitations, dyspnea, syncope. Our scheduling team was able to add on for cardiology appointment this (09/13) for evaluation/optimization. If further testing is required, bronch may need to be postponed. Doyle Activity Status Index: METS: Climb a flight of stairs or walk up a hill (5.50 METs) DASI Score: 5.5 Patient denies any chest pain or undue shortness of breath with the above physical activity. Clinical Frailty Scale: 3. Well, with treated comorbid disease STOP-Bang Score: Snores loudly Has or is being treated for high blood pressure Patient over 50 years old Male patient Denies feeling tired, fatigued, or sleepy during the daytime Has not been observed to stop breathing or choking/gasping during sleep BMI less than or equal to 35 kg/m^2 Does not have a large neck STOP-Bang Score: 4 [id number] Score: Age: 65-74 Sex: male CHF history: No Hypertension history: Yes Stroke/TIA/thromboembolism history: No Vascular disease history: Yes Diabetes history: No [id number] Score: 3 ANESTHESIA FINDINGS: Intubation History: No history of difficult intubation. No abnormal airway history Significant Anesthesia Considerations: none Airway History: No history of difficult airway No abnormal airway history I - PHYSICAL EVALUATION AIRWAY Patient intubated: No. Tracheostomy tube not present Mallampati: III. TM distance: >3 FB. Neck ROM: full ROM without neurological symptoms. Mouth opening: adequate. Short neck: no. Thick neck: no Chase present: yes Microretrognathia/Micronagthia/Rec essed Chin: No DENTAL Dental findings: missing tooth/teeth. Dentures, upper: complete. Dentures, lower: partial. II - ANESTHESIA PLAN Anesthetic Plan: other Anesthetic plan additional comments: *PACC/TCI - anesthesia choice. Beta Sumaya Monitoring Plan Post Procedure Analgesic Plan Prepared for Surgery: optimally prepared for surgery, pending [see comment]. - cardiology appointment 09/13 CONSULTS: The following consults have been initiated at this time: cardiology. Planned Anesthetic: other anesthesia choice The Following Tests/Procedures Have Been Initiated: No orders of the defined types were placed in this encounter. Instructions Given to Patient: Instructions located in the after visit summary. Patient given verbal and written preop instructions and voices comprehension and compliance. SIGNATURE: Sailaja Gonzalez PA-C PATIENT NAME: Stevie Sanchez DATE: 09/11/2023 TIME: 3:06 PM PAGER/CONTACT #: [facility] 09-11-2023 History and physical note HISTORY AND PHYSICAL EXAMINATION SERVICE DATE: 09/11/2023 SERVICE TIME: 3:06 PM PRIMARY CARE PHYSICIAN: Praful Su MD REASON FOR VISIT: Stevie Sanchez is a 73 year old male who is scheduled for Procedure(s): BRONCHOSCOPY,RIGID/FLEXIBLE W/ FLUORO,W/ENDOBRONCHIAL ULTRASOUND (EBUS) GUIDED TRANSTRACHEAL/ TRANSBRONCHIAL ASPIRATION/BIOPSY,1 OR 2 MEDIASTINAL AND/OR HILAR LYMPH NODE STATIONS/STRUCTURES (N/A) at the request of Dr. Arcadio Hodgson for consultation. My final recommendation will be communicated back to the requesting physician by way of shared medical record or letter. Subjective 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 Paresthesias Lumbosacral Neuritis Abdominal Aortic Aneurysm (Aaa) Without Rupture (Hcc) Hdl Deficiency Prostate Cancer (Hcc) Paroxysmal Atrial Fibrillation (Hcc) COVID-19 Immunization Status Overdue - Covid-19 Vaccine ( season) Overdue since 06/16/2023 02/14/2023 Imm Admin: COVID-19 vaccine, age 12+ yr, season ([employer]) 12/28/2021 Imm Admin: COVID-19 vaccine, age 12+ yr, bivalent (P[employer]ER-[employer]) 02/04/2021 Imm Admin: COVID-19 original vaccine, age 12+ yr, monovalent ([employer] - PURPLE TOP) Only the first 3 history entries have been loaded, but more history exists. CHIEF COMPLAINT: Pre-Op HPI: Stevie Sanchez is a 73 year old male presenting for pre-anesthesia consultation. Pt has history of lung mass. Above procedure recommended to manage symptoms. Procedure scheduled on 09/19/2023 at [facility]. REVIEW OF SYSTEMS: General: No weight loss, malaise or fevers. Neurological: Negative for: headaches, Parkinson's disease, seizures and strokes. Respiratory: Positive for: asthma, COPD and tobacco use. Negative for: current cough, dyspnea, URI < 2 weeks and obstructive sleep apnea. Cardiovascular: Positive for: abdominal aortic aneurysm, atrial fibrillation, hyperlipidemia and hypertension Negative for: AICD/PPM, anticoagulation therapy, arrhythmia, CAD, chest pain, CHF, DVT/PE, recent CO, murmur/valvular heart disease, open heart surgery and valve surgery. GI: Negative for: abdominal pain, dysphagia, GERD, liver disease, nausea and vomiting. : Negative for: on dialysis, dysuria, hematuria and renal failure. Endocrine: + Prediabetes Negative for: diabetes mellitus, hyperthyroidism and hypothyroidism. Hematology: Negative for: anemia, bruises/bleeds easily, factor V Leiden, hemophilia, thrombocytopenia, von Willebrand disease and chronic anti-coagulation/platelet meds. Oncology: + prostate ca. No history of CA metastasis, chemo within 30 days, or radiotherapy within 90 days. No history of oncological symptoms or problems. Psych: Negative for: anxiety, bipolar disorder and depression. Musculoskeletal: Negative for joint pain or swelling, back pain or muscle pain. Skin: Negative for lesions, rash and itching. PAST MEDICAL HISTORY Diagnosis Date Abdominal aortic aneurysm (HCC) without rupture Elevated PSA Hearing loss HTN (hypertension) Lumbosacral neuritis Malignant neoplasm of prostate (HCC) Other and unspecified hyperlipidemia Smoker Spinal stenosis of lumbar region with neurogenic claudication PAST SURGICAL HISTORY Procedure Laterality Date COLONOSCOPY 06/05 HERNIA REPAIR HX age 20 FAMILY HISTORY Problem Relation Age of Onset other (high blood pressure [Other]) Mother Diabetes Mother Hearing Loss Mother Prostate Cancer Other Social History Tobacco Use Smoking status: Former Packs/day: 0.15 Years: 40.00 Additional pack years: 0.00 Total pack years: 6.00 Types: Cigarettes Quit date: 07/2021 Years since quittin.1 Passive exposure: Past Smokeless tobacco: Never Substance Use Topics Alcohol use: Not Currently Alcohol/week: 6.0 standard drinks of alcohol Types: 6 Glasses of wine per week Drug use: No Prior to Admission medications as of 09/11/23 1505 Medication Sig Last Dose Taking fluticasone-salmeterol (WIXELA INHUB) 250-50 mcg/dose inhaler Inhale 1 Puff as instructed two times a day. Taking Yes lisinopril-hydroCHLOROthiazide (ZESTORETIC) 20-12.5 mg per tablet Take 1 tablet by mouth once daily. Taking Yes amLODIPine (NORVASC) 5 mg tablet Take 1 tablet by mouth once daily. Taking Yes atorvastatin (LIPITOR) 20 mg tablet Take 1 tablet by mouth once daily. Taking Yes gabapentin (NEURONTIN) 300 mg capsule TAKE 2 CAPSULES BY MOUTH 3 TIMES A DAY Taking Yes iv contrast (will be provided with radiology test) CTA CHST/ABD/PEL LE.No IV access, insert saline lock prior to the sedation, infusion, injection for imaging exam. Discontinue saline lock post exam. If Pt. has a central line or IVAD, may access for administration according to line specific nursing protocol. Once exam is complete flush line and de-access according to line specific nursing protocol in the CT contrast administration guidelines link. iv contrast (will be provided with radiology test) CTA ABD/PEL LE - No IV access, insert saline lock prior to the sedation, infusion, injection for imaging exam. Discontinue saline lock post exam. If Pt. has a central line or IVAD, may access for administration according to line specific nursing protocol. Once exam is complete flush line and de-access according to line specific nursing protocol in the CT contrast administration guidelines link. iv contrast (will be provided with radiology test) CT ABD/PEL -Inject, intravenously, once for 1 dose.No IV [...] in the CT contrast administration guidelines link. Patient not taking: Reported on 07/28/2023 iv contrast (will be provided with radiology test) CT ABD/PEL -Inject, intravenously, once for 1 dose.No IV [...] in the CT contrast administration guidelines link. Patient not taking: Reported on 07/28/2023 No medication comments found. ALLERGIES No Known Allergies Objective PHYSICAL EXAM: General: alert and oriented and healthy appearance. Pertinent negatives noted - not distressed. Skin: normal color, no rash or lesions. HEENT: EOM intact, pupils equal round and pupils reactive to light. Pertinent negatives noted - no carotid bruit. Cardiovascular: regular rate and rhythm, normal S1 and S2, no rub, murmurs, or gallop. Respiratory: normal breath sounds, no wheezes or crackles. No chest wall deformity or tenderness. Abdomen: bowel sounds present and soft. Pertinent negatives noted - not tender. Extremities: no deformity, no edema or tenderness, no joint swelling or clubbing. Neurological: normal cognition and motor skills. Gait normal. No weakness or sensory deficit. PAIN ASSESSMENT: VITALS: BP 119/74 Pulse 85 Temp 98.7 Resp 18 Ht 5' 10 (1.78m) Wt 181 lb 7 oz (82.3kg) SpO2 96% BMI 26.03 kg/(m^2). Diagnostic tests reviewed for today's visit: Lab Value Units Date High Low HB 15.9 g/dL 09/11/2023 17.0 13.0 HCT 47.5 % 09/11/2023 51.0 39.0 WBC 8.64 k/uL 09/11/2023 11.00 3.70 PLT 338 k/uL 09/11/2023 400 150 NA 133 mmol/L 09/11/2023 144 136 K 3.5 mmol/L 09/11/2023 5.1 3.7 GLUC 128 mg/dL 09/11/2023 99 74 BUN 6 mg/dL 09/11/2023 24 9 CREAT 0.64 mg/dL 09/11/2023 1.22 0.73 PTSEC No results within date range. INR No results within date range. APTT No results within date range. ALT No results within date range. AST No results within date range. TBILI No results within date range. TSH No results within date range. Lab [...] 5.9 Recent Results (from the past 8760 hour(s)) ECG COMPLETE Collection Time: 06/20/23 2:07 PM Result Value Ventricular Rate 80 Atrial Rate 83 P-R Interval 155 QRS Duration 89 QT Interval 402 QTC Calculation (Bazett) 464 Calculated P [place] 59 Calculated R [place] 44 Calculated T [place] 18 Impression Sinus rhythm Atrial premature complexes Abnormal ECG Confirmed by KRYSTLE AGRAWAL MD ([id number]) on 06/22/2023 11:31:58 AM Also confirmed by KRYSTLE AGRAWAL MD ([id number]), content editor SANDY CARBONE ([id number]) on 06/23/2023 2:39:58 PM No results found for this or any previous visit (from the past 57197 hour(s)). Assessment Patient has the following medical conditions which may affect merle-operative course: Abdominal aortic aneurysm (AAA) without rupture (HCC) Assessment: Follows with vascular. Monitored with imaging q 6 months. Per most recent note (Dr. Jackson, 06/06/23): Mr. Sanchez is a 72 year old male with 5 cm fusiform aneurysm. RTC 6 m with ultrasound AAA. Reviewed symptoms of rupture and patient to seek urgent medical attention if symptomatic. Primary hypertension Assessment: Follows with PCP, adherent to RX. In office today BP: 119/74 Mixed hyperlipidemia Assessment: Adherent to statin therapy. Cigarette nicotine dependence in remission Assessment: Quit 2021. Encouraged continued cessation. Glucose intolerance (impaired glucose tolerance) Assessment: PCP monitors. Not on rx. Hemoglobin A1C (%) Date Value 05/02/2023 6.1 02/08/2021 6.0 Prostate cancer (HCC) Assessment: Hx of prostate cancer s/p XRT. Paroxysmal atrial fibrillation (HCC) Assessment: Last bronchoscopy in 05/2023, course was complicated when pt developed atrial fibrillation with rvr post-op per pt physical instructor note. Consult to cardiology was placed. On exam, pt is in regular rhythm. Denies palpitations, dyspnea, syncope. Our scheduling team was able to add on for cardiology appointment this (09/13) for evaluation/optimization. If further testing is required, bronch may need to be postponed. Doyle Activity Status Index: METS: Climb a flight of stairs or walk up a hill (5.50 METs) DASI Score: 5.5 Patient denies any chest pain or undue shortness of breath with the above physical activity. Clinical Frailty Scale: 3. Well, with treated comorbid disease STOP-Bang Score: Sndottie loudly Has or is being treated for high blood pressure Patient over 50 years old Male patient Denies feeling tired, fatigued, or sleepy during the daytime Has not been observed to stop breathing or choking/gasping during sleep BMI less than or equal to 35 kg/m^2 Does not have a large neck STOP-Bang Score: 4 [id number] Score: Age: 65-74 Sex: male CHF history: No Hypertension history: Yes Stroke/TIA/thromboembolism history: No Vascular disease history: Yes Diabetes history: No [id number] Score: 3 ANESTHESIA FINDINGS: Intubation History: No history of difficult intubation. No abnormal airway history Significant Anesthesia Considerations: none Airway History: No history of difficult airway No abnormal airway history I - PHYSICAL EVALUATION AIRWAY Patient intubated: No. Tracheostomy tube not present Mallampati: III. TM distance: >3 FB. Neck ROM: full ROM without neurological symptoms. Mouth opening: adequate. Short neck: no. Thick neck: no Chase present: yes Microretrognathia/Micronagthia/Rec essed Chin: No DENTAL Dental findings: missing tooth/teeth. Dentures, upper: complete. Dentures, lower: partial. II - ANESTHESIA PLAN Anesthetic Plan: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 auscultation, no wheezing or rhonchi Heart: NSR Neurologic: grossly intact ASSESSMENT/PLAN: 1. Glucose intolerance (impaired glucose tolerance) - ICD9: 790.22, ICD10: R73.02 (primary diagnosis) - HGB A1C 2. Spinal stenosis of lumbar region with neurogenic claudication - ICD9: 724.03, ICD10: M48.062 Stable sx - GABAPENTIN 300 MG CAPSULE 3. Paresthesias - ICD9: 782.0, ICD10: R20.2 stable - GABAPENTIN 300 MG CAPSULE 4. Prostate cancer (HCC) - ICD9: 185, ICD10: C61 Stable after radiation 5. Essential hypertension - ICD9: 401.9, ICD10: I10 - Controlled - Continue current medications - Recommend home blood pressure monitoring, to bring results to next visit - Encouraged sodium restriction, DASH or Mediterranean diet - Recommend regular aerobic exercise - BASIC METABOLIC PNL 6. Abdominal aortic aneurysm (AAA) without rupture, unspecified part (HCC) - ICD9: 441.4, ICD10: I71.40 Due for testing 7. Mixed hyperlipidemia - ICD9: 272.2, ICD10: E78.2 - Control undetermined, due for labs - Continue current medications - Counseled on healthy diet and regular exercise - LIPID PANEL BASIC 8. Screening for colon cancer - ICD9: V76.51, ICD10: Z12.11 - FECAL OCCULT BLOOD TEST Praful Su MD MEDICATION: Reviewed with patient REVIEW OF RECORDS: Progress note PATIENT EDUCATION: Discussed diet and Discussed exercise/therapy REVIEW OF TESTS: Labs Praful Su MD documented in this encounter [facility] 04-25-2023 History of Present illness Narrative Images from the original note were not included. [facility] DEPARTMENT OF VASCULAR SURGERY OUTPATIENT VISIT DATE April 24, 2023 OUTPATIENT VISIT TYPE ESTABLISHED SERVICE DATE: 04/24/2023 SERVICE TIME: 2:00 PM PRIMARY CARE PHYSICIAN: Praful Su MD HISTORY OF PRESENT ILLNESS: Mr. Sacnhez is a 72 year old male with PMhx of HTN, HDL, Spinal Stenosis,Lumbar-sacral neuritis with known AAA 4.6 cm who presents today for a vascular surgery follow-up visit Biannual surveillance. Pt reports feeling well, denies claudication, back pain or chest pain. Denies family history of AAA, claudication, TIA of amaurosis fugax. PAST MEDICAL HISTORY Diagnosis Date Abdominal aortic aneurysm (HCC) without rupture Elevated PSA Hearing loss HTN (hypertension) Lumbosacral neuritis Malignant neoplasm of prostate (HCC) Other and unspecified hyperlipidemia Smoker Spinal stenosis of lumbar region with neurogenic claudication PAST SURGICAL HISTORY Procedure Laterality Date COLONOSCOPY 06/05 HERNIA REPAIR HX age 20 SOCIAL HISTORY Social History Tobacco Use Smoking status: Former Packs/day: 0.15 Years: 40.00 Additional pack years: 0.00 Total pack years: 6.00 Types: Cigarettes Quit date: 07/2021 Years since quittin.7 Smokeless tobacco: Never Substance Use Topics Alcohol use: Yes Alcohol/week: 6.0 standard drinks of alcohol Types: 6 Cans of Beer (12oz) per week Drug use: No MEDICATIONS: lisinopril-hydroCHLOROthiazide (ZESTORETIC) 20-12.5 mg per tablet Take 1 tablet by mouth once daily. atorvastatin (LIPITOR) 20 mg tablet Take 1 tablet by mouth once daily. amLODIPine (NORVASC) 5 mg tablet Take 1 tablet by mouth once daily. gabapentin (NEURONTIN) 300 mg capsule TAKE 2 CAPSULES BY MOUTH 3 TIMES A DAY ALLERGIES: ALLERGIES No Known Allergies Review of Systems: PAIN ASSESSMENT: HISTORY OF CHRONIC PAIN OR CURRENTLY BEING TREATED FOR A CHRONIC PAIN CONDITION: No GENERAL: No weight loss, malaise or fevers. HEENT: Negative for frequent or significant headaches, No changes in hearing or vision, no nose bleeds or other nasal problems RESPIRATORY: Negative for cough, hemoptysis, wheezing, COPD, dyspnea or shortness of breath CARDIOVASCULAR: Negative for chest pain, leg swelling, hypertension, CHF or palpitations GI: No nausea, vomiting, or diarrhea MUSCULOSKELETAL: Chronic Back pain with paraesthesia The remainder of the review of systems is negative. PHYSICAL EXAM: BP 114/68 (BP Site: Left Arm, BP Position: Sitting, BP Cuff Size: Regular Adult) Pulse 71 SpO2 95% General: Alert and oriented, No acute distress, Healthy appearance, good historian. Integumentary: Normal color, no rash, no lesions. HEENT: EOM, pupils equal and round, no lesions or deformities. Cardiovascular: Normal S1 & S2, no murmurs Pulse regular. Lungs: Normal breath sounds, no wheezes or crackles., No chest deformities or chest wall tenderness. Abdomen: Soft, non-tender, no rigidity., No masses. Extremities: No deformity, joint swelling or clubbing. Neurological: Normal cognition and motor skills. Normal affect. No weakness or sensory deficit. Pulse exam: Right- Normal femoral, popliteal and pedal Left- Normal femoral, popliteal and pedal Diagnostic tests reviewed for today's visit: Most recent imaging Aortic Duplex 04/25/2023 Compared to prior study of 10/13/2022, Mid aortic aneurysm measured 4.60cm on previous study. AORTA Infrarenal abdominal aortic aneurysm measuring 5.22 x 5.10 x 4.93cm at mid. Infrarenal abdominal aortic aneurysm measuring 4.32 x 4.30 x 4.28cm at distal. Aorta plaque noted without evidence of hemodynamically significant stenosis at mid. IMPRESSION: Mr. Sanchez is a 72 year old male with known AAA, previously measured 4.6, now 5.2, asymptomatic. PLAN and RECOMMENDATIONS: - CTA A&P with follow up with Dr. Jackson - Continue to encourage smoking cessation SIGNATURE: Phuong Beasley APRN.CNP PATIENT NAME: Stevie Sanchez DATE: April 24, 2023 TIME: 2:00 PM documented in this encounter [facility] 01-02-2023 Miscellaneous Notes Generalized message left on voicemail, advised everything fine and call back if any questions. Called patient left message for them to return call to office. aPresh Hess MA Component Ref Range & Units 1 d ago (12/28/22) 1 yr ago (12/06/21) 1 yr ago (05/25/21) PSA <2.60 ng/mL 0.06 0.04 CM <0.02 CM I called and left a message for patient to return call Lynda Edwards Cma ----- Message from Don Lara MD sent at 12/29/2022 12:25 PM EDT ----- The lab results all look good. No change in plan. documented in this encounter [facility] 10-13-2022 History of Present illness Narrative Images from the original note were not included. [facility] DEPARTMENT OF VASCULAR SURGERY VASCULAR SURGERY INITIAL CONSULT/ H+P SERVICE DATE: 10/13/2022 SERVICE TIME: 10:14 AM PRIMARY CARE PHYSICIAN: Praful Su MD REFERRING PROVIDER: Praful Su ([facility]) [address] [place] [id number] Consult requested for an opinion regarding the evaluation and treatment of the above. My final impression and recommendations will be communicated back to the requesting physician by way of the shared medical record or letter via US mail. CHIEF COMPLAINT/HISTORY OF PRESENT ILLNESS: Chief Complaint: Abdominal aortic aneurysm History of Present Illness: Stevie Sanchez is a 71 year old male Patient presents for evaluation of an abdominal aortic aneurysm Aneurysm discovered on ultrasound Measures 4.6cm Family history of AAA negative Smoking history: quit Denies symptoms of claudication Denies amaurosis fugax, TIA or stroke PAST MEDICAL/SURGICAL/FAMILY/SOCIAL HISTORY PAST MEDICAL HISTORY Diagnosis Date Abdominal aortic aneurysm (HCC) without rupture Elevated PSA Hearing loss HTN (hypertension) Lumbosacral neuritis Malignant neoplasm of prostate (HCC) Other and unspecified hyperlipidemia Smoker Spinal stenosis of lumbar region with neurogenic claudication PAST SURGICAL HISTORY Procedure Laterality Date COLONOSCOPY 06/05 HERNIA REPAIR HX age 20 FAMILY HISTORY Problem Relation Age of Onset other (high blood pressure [Other]) Mother Diabetes Mother Hearing Loss Mother Prostate Cancer Other SOCIAL HISTORY Social History Tobacco Use Smoking status: Former Packs/day: 0.15 Years: 40.00 Additional pack years: 0.00 Total pack years: 6.00 Types: Cigarettes Quit date: 07/2021 Years since quittin.2 Smokeless tobacco: Never Substance Use Topics Alcohol use: Yes Alcohol/week: 15.0 standard drinks of alcohol Types: 6 Cans of Beer (12oz) per week Drug use: No MEDICATIONS/ALLERGIES Current Outpatient Medications Medication Sig Dispense Refill lisinopril-hydroCHLOROthiazide (ZESTORETIC) 20-12.5 mg per tablet Take 1 tablet by mouth once daily. 90 tablet 3 atorvastatin (LIPITOR) 20 mg tablet Take 1 tablet by mouth once daily. 90 tablet 3 amLODIPine (NORVASC) 5 mg tablet Take 1 tablet by mouth once daily. 90 tablet 3 gabapentin (NEURONTIN) 300 mg capsule TAKE 2 CAPSULES BY MOUTH 3 TIMES A DAY 540 capsule 3 No current facility-administered medications for this visit. ALLERGIES No Known Allergies REVIEW OF SYSTEMS 10 point review of symptoms was non contributory to current problem PHYSICAL EXAM General: Alert and oriented, No acute distress, Healthy appearance, good historian. Integumentary: Normal color, no rash, no lesions. HEENT: EOM, pupils equal and round, no lesions or deformities. Cardiovascular: Normal S1 & S2, no murmurs Pulse regular. Lungs: Normal breath sounds, no wheezes or crackles., No chest deformities or chest wall tenderness. Abdomen: Soft, non-tender, no rigidity., No masses. Extremities: No deformity, joint swelling or clubbing. Neurological: Normal cognition and motor skills. Normal affect. No weakness or sensory deficit. Pulse exam: Right- Normal femoral, popliteal and pedal Left- Normal femoral, popliteal and pedal Diagnostic tests reviewed for today's visit: 4.6 cm AAA noted on ultrasound ASSESSMENT Small abdominal aortic aneurysm PLAN/RECOMMENDATIONS -Conservative management and observation for small abdominal aortic aneurysm. This is at low risk for rupture -Repeat ultrasound in 6 months -Warned of the signs and symptoms of rupture and instructed to report to ER or call 911 if develop -Warned about the risk to 1st degree relatives -Discussed the options with the patient. All questions were answered. Patient agrees to plan documented in this encounter [facility] 09-26-2022 Miscellaneous Notes Spoke to patient to conf apts. Encounter closed. Left message for patient to call Terese at [phone] . Appts for rizwan lab and dr. Roberts have been moved to 10/13/22. documented in this encounter [facility] 08-29-2022 Miscellaneous Notes Patient called requesting the following refill: Requested Prescriptions Pending Prescriptions Disp Refills lisinopril-hydroCHLOROthiazide (ZESTORETIC) 20-12.5 mg per tablet 90 tablet 3 Sig: Take 1 tablet by mouth once daily. Script(s) will be E-script to pharmacy The patients preferred pharmacy has been captured for this encounter? yes Grazyna Shearer documented in this encounter [facility] 05-30-2022 Miscellaneous Notes Patient called requesting the following refill: Requested Prescriptions Pending Prescriptions Disp Refills atorvastatin (LIPITOR) 20 mg tablet 90 tablet 3 Sig: Take 1 tablet by mouth once daily. amLODIPine (NORVASC) 5 mg tablet 90 tablet 3 Sig: Take 1 tablet by mouth once daily. Script(s) will be E-script to pharmacy The patients preferred pharmacy has been captured for this encounter? yes Grazyna Shearer documented in this encounter [facility] 04-12-2022 History of Present illness Narrative Images from the original note were not included. AMBULATORY TELEPHONE VISIT Stevie Sanchez has consented to this telephone encounter. Persons Present: patient Chief Complaint/Reason: 71 year old male with unfavorable intermediate risk prostate adenocarcinoma, initial PSA 7.52 ng/mL, biopsy Meredith score 3 + 4 = 7 (grade group 2), clinical stage T1c, N0, M0, stage IIA [cT1a-c/cT2a, N0, M0, PSA >=10 & <20, GG 1] (AJCC 8th ed.), s/p TRUS Random biopsy 09/24/2020, s/p Lupron 45 mg IM injection 11/05/2020, and s/p external beam radiation therapy completed 01/15/2021 (70 Gy/28fx). HPI: Since completion of treatment 01/15/2021, patient has noted resolution of acute toxicities. He feels well. Hot flashes have diminished. He denies rectal bleeding. Interval history 04/12/2022: Patient continues to feel well and has no complaints. PSA results: REVIEW OF SYSTEMS: Hematuria: No Dysuria: No Incontinence: No Urgency: none Catheter use: No Medications to aid urination: none - AUA Questionnaire (symptoms within the past 1 month) Incomplete emptyin (not at all) Frequency (within 2 hours): 0 (not at all) Intermittency: 0 (not at all) Urgency: 0 (not at all) Weak stream: 0 (not at all) Strainin (not at all) Nocturia: 1x per night - Total AUA Score: 1 Bowel movement frequency: 1/day Bowel movement quality: normal Blood per rectum: No Last colonoscopy: 2004 Sexual activity: Unable to maintain erections Sexual Health Inventory (ARNALDO) score: uncertain Androgen deprivation: Previously treated with Lupron, but not receiving at present time. Data Reviewed: Most recent labs and imaging results. Assessment: (C61) Malignant neoplasm of prostate (HCC) (primary encounter diagnosis) Plan: Patient continues to do well and remains in biochemical remission. PSA testing was ordered. Signs and symptoms to bring to physician attention were briefly reviewed. Total Time Spent: 5 minutes Negrito Neely MD This document was completed utilizing speech recognition software. Grammatical errors, random word insertions, pronoun errors, and incomplete sentences are an occasional consequence of this system due to software limitations, ambient noise, and hardware issues. Any formal questions or concerns about the content, text or information contained within the body of this dictation should be directly addressed to the provider for clarification. Elements copied from my note dated 04/12/2021, have been reviewed and updated where appropriate, and all reflect current assessment and medical decision making from today's encounter, 04/12/2022. documented in this encounter [facility] 03-30-2022 History of Present illness Narrative Images from the original note were not included. Heart , [facility] DEPARTMENT OF VASCULAR SURGERY VASCULAR SURGERY INITIAL CONSULT/ H+P SERVICE DATE: 03/30/2022 SERVICE TIME: 12:55 PM PRIMARY CARE PHYSICIAN: Praful Su MD REFERRING PROVIDER: Praful Su ([facility]) [address] [facility] [id number] Consult requested for an opinion regarding the evaluation and treatment of the above. My final impression and recommendations will be communicated back to the requesting physician by way of the shared medical record or letter via US mail. CHIEF COMPLAINT/HISTORY OF PRESENT ILLNESS: Chief Complaint: Abdominal aortic aneurysm History of Present Illness: Stevie Sanchez is a 71 year old male Patient presents for evaluation of an abdominal aortic aneurysm Aneurysm discovered on ultrasound Measures 4.6cm Family history of AAA negative Smoking history: quit Denies symptoms of claudication Denies amaurosis fugax, TIA or stroke PAST MEDICAL/SURGICAL/FAMILY/SOCIAL HISTORY PAST MEDICAL HISTORY Diagnosis Date Elevated PSA Hearing loss HTN (hypertension) Malignant neoplasm of prostate (HCC) Other and unspecified hyperlipidemia Smoker PAST SURGICAL HISTORY Procedure Laterality Date COLONOSCOPY 06/05 HERNIA REPAIR HX age 20 FAMILY HISTORY Problem Relation Age of Onset other (high blood pressure [Other]) Mother Diabetes Mother Hearing Loss Mother Prostate Cancer Other SOCIAL HISTORY Social History Tobacco Use Smoking status: Former Packs/day: 0.15 Years: 40.00 Pack years: 6.00 Types: Cigarettes Quit date: 07/2021 Years since quittin.6 Smokeless tobacco: Never Substance Use Topics Alcohol use: Yes Alcohol/week: 15.0 standard drinks Types: 6 Cans of Beer (12oz) per week Drug use: No MEDICATIONS/ALLERGIES Current Outpatient Medications Medication Sig Dispense Refill gabapentin (NEURONTIN) 300 mg capsule TAKE 2 CAPSULES BY MOUTH 3 TIMES A DAY 540 capsule 3 lisinopril-hydroCHLOROthiazide (PRINZIDE,ZESTORETIC) 20-12.5 mg per tablet Take 1 tablet by mouth once daily. 90 tablet 3 atorvastatin (LIPITOR) 20 mg tablet Take 1 tablet by mouth once daily. 90 tablet 3 amLODIPine (NORVASC) 5 mg tablet Take 1 tablet by mouth once daily. 90 tablet 3 No current facility-administered medications for this visit. ALLERGIES No Known Allergies REVIEW OF SYSTEMS 10 point review of symptoms was non contributory to current problem PHYSICAL EXAM General: Alert and oriented, No acute distress, Healthy appearance, good historian. Integumentary: Normal color, no rash, no lesions. HEENT: EOM, pupils equal and round, no lesions or deformities. Cardiovascular: Normal S1 & S2, no murmurs Pulse regular. Lungs: Normal breath sounds, no wheezes or crackles., No chest deformities or chest wall tenderness. Abdomen: Soft, non-tender, no rigidity., No masses. Extremities: No deformity, joint swelling or clubbing. Neurological: Normal cognition and motor skills. Normal affect. No weakness or sensory deficit. Pulse exam: Right- Normal femoral, popliteal and pedal Left- Normal femoral, popliteal and pedal Diagnostic tests reviewed for today's visit: 4.6 cm AAA noted on ultrasound ASSESSMENT Small abdominal aortic aneurysm PLAN/RECOMMENDATIONS -Conservative management and observation for small abdominal aortic aneurysm. This is at low risk for rupture -Repeat ultrasound in 6 months -Warned of the signs and symptoms of rupture and instructed to report to ER or call 911 if develop -Warned about the risk to 1st degree relatives -Discussed the options with the patient. All questions were answered. Patient agrees to plan documented in this encounter [facility] 03-23-2022 Miscellaneous Notes Patient was given message below and understood. No further action needed. Grazyna Shearer Left message for patient to give office a call back. Darshana Dunn LPN Notify patient that ultrasound shows significant aortic aneurysm, will need to follow up with vascular surgery to monitor it. Order placed. documented in this encounter [facility] 03-18-2022 Miscellaneous Notes Patient given message. Verbalized understanding. No further action needed. Darshana Dunn LPN Notify patient that stool test for blood is negative. documented in this encounter [facility] 03-16-2022 Miscellaneous Notes Spoke with vascular. Ordered for US ABD Aorta needed changed from radiology class to vascular class. Order was changed and confirmed correct with vascular. No further action needed. Grazyna Shearer There was another order on file for a US Doppler Aorta that was accidentally canceled out when the original appointment was scheduled in [place]. Our office (PCP office) called and spoke with Radiology in [place] who stated these are are tests we cannot schedule or do (meaning the doppler) and the patient would need to talk with someone in vascular to get these scheduled. Patient was advised of this last week. Grazyna Shearer Patient called asking if 2 US orders were put in his chart as he was told to schedule 2. Only 1 seen in patient's active requests. Asked if the dept can check on this and then call him and he can schedule both at that time. TY documented in this encounter [facility] 03-07-2022 History of Present illness Narrative SUBJECTIVE: Stevie Sanchez is a 71 year old male Patient presents with: Follow Up He remains well, still with sx related to spinal stenosis. He smokes much less, only when around other smokers. CURRENT MEDICATIONS: Current Outpatient Medications on File Prior to Visit Medication Sig gabapentin (NEURONTIN) 300 mg capsule TAKE 2 CAPSULES BY MOUTH 3 TIMES A DAY lisinopril-hydroCHLOROthiazide (PRINZIDE,ZESTORETIC) 20-12.5 mg per tablet Take 1 tablet by mouth once daily. atorvastatin (LIPITOR) 20 mg tablet Take 1 tablet by mouth once daily. amLODIPine (NORVASC) 5 mg tablet Take 1 tablet by mouth once daily. No current facility-administered medications on file prior to visit. PROBLEM LIST: ACTIVE PROBLEM LIST Glucose Intolerance (Impaired Glucose Tolerance) Essential Hypertension Mixed Hyperlipidemia Smoker Spinal Stenosis of Lumbar Region With Neurogenic Claudication Paresthesias Lumbosacral Neuritis Abdominal Aortic Aneurysm Without Rupture ALLERGIES: Patient has no known allergies. REVIEW OF SYSTEMS:GENERAL: No weight loss, malaise or fevers RESPIRATORY: Negative for cough, hemoptysis, wheezing, COPD, dyspnea or shortness of breath CARDIOVASCULAR: Negative for chest pain, leg swelling, hypertension, CHF or palpitations BP 110/62 (BP Site: Left Arm, BP Position: Sitting, BP Cuff Size: Regular Adult) Pulse 73 Temp 36.6 C (97.9 F) (Temporal) Ht 174.5 cm (5' 8.7) Wt 98.2 kg (216 lb 6.4 oz) SpO2 97% BMI 32.24 kg/m General Appearance: Well appearing, alert, in no acute distress, well-hydrated, well nourished. Lungs: clear to auscultation, no wheezing or rhonchi Heart: NSR Neurologic: grossly intact ASSESSMENT/PLAN: 1. Essential hypertension - ICD9: 401.9, ICD10: I10 (primary diagnosis) - good control - Continue current medication(s) - Recommended regular aerobic exercise. - Recommend home blood pressure monitoring, to bring results in on next visit - Goal of BP <130/80 - BASIC METABOLIC PNL - LIPID PANEL BASIC 2. Glucose intolerance (impaired glucose tolerance) - ICD9: 790.22, ICD10: R73.02 - HGB A1C 3. Abdominal aortic aneurysm (AAA) without rupture, unspecified part - ICD9: 441.4, ICD10: I71.40 - US ABD AORTA - US DOPPLER AORTA 4. Screening for colon cancer - ICD9: V76.51, ICD10: Z12.11 - FECAL OCCULT BLOOD TEST Praful Su MD MEDICATION: Reviewed with patient REVIEW OF RECORDS: Progress note PATIENT EDUCATION: Discussed diet and Discussed exercise/therapy REVIEW OF TESTS: Labs Praful Su MD documented in this encounter [facility] 02-07-2022 Miscellaneous Notes Patient calls for medication refill today. PCP is Praful Su M.D.. Patient was last seen August 11, 2021. Last Blood work was August 11, 2021. Requested Prescriptions Pending Prescriptions Disp Refills gabapentin (NEURONTIN) 300 mg capsule 540 capsule 3 Sig: TAKE 2 CAPSULES BY MOUTH 3 TIMES A DAY Glucose (mg/dL) Date Value 08/11/2021 102 02/08/2021 138 Potassium (mmol/L) Date Value 08/11/2021 4.1 02/08/2021 4.1 Sodium (mmol/L) Date Value 08/11/2021 136 02/08/2021 136 Chloride (mmol/L) Date Value 08/11/2021 97 02/08/2021 98 CO2 (mmol/L) Date Value 08/11/2021 22 02/08/2021 27 Creatinine (mg/dL) Date Value 08/11/2021 0.67 02/08/2021 0.78 BUN (mg/dL) Date Value 08/11/2021 5 02/08/2021 11 Anion Gap (mmol/L) Date Value 08/11/2021 17 02/08/2021 11 Calcium (mg/dL) Date Value 02/08/2021 10.2 Calcium, Total (mg/dL) Date Value 08/11/2021 10.2 Lab Results Component Value Date HBA1C 6.0 02/08/2021 HBA1C 5.7 01/01/2020 HBA1C 5.9 05/14/2018 PT INR Date Value Ref Range Status 04/28/2015 1.0 0.8 - 1.2 Final Comment: The PT/INR can be used to monitor the therapeutic effect of oral anticoagulants, such as warfarin. The recommended therapeutic range is an INR of 2.0 to 3.0 for most applications, including treatment and prevention of venous thrombosis, treatment of pulmonary embolism, prevention of strokes/TIA in patients with atrial fibrillation, prevention and treatment of thrombosis in patients with a lupus anticoagulant and prevention of systemic embolization in patients with heart valve disorders. There are certain conditions where clinicians may decide to use a lower or higher therapeutic range eg. 1.5 to 1.9 for secondary prevention of idiopathic venous thromboembolism and an INR 2.5 to 3.5 for older generation mechanical heart valves. Chintan, et al. CHEST 2004: 126:204S to 233S. Cholesterol, Total (mg/dL) Date Value 02/08/2021 197 HDL Cholesterol (mg/dL) Date Value 02/08/2021 47 LDL Cholesterol (mg/dL) Date Value 02/08/2021 99 Triglyceride (mg/dL) Date Value 02/08/2021 253 No results found for: TSH Pharmacy has been captured: Yes. Patient prefers: [facility]. Patient phones requesting refills as follows: Requested Prescriptions Pending Prescriptions Disp Refills gabapentin (NEURONTIN) 300 mg capsule 540 capsule 3 Sig: TAKE 2 CAPSULES BY MOUTH 3 TIMES A DAY [facility] Please review and advise. Stormy Jackson documented in this encounter [facility] 12-07-2021 Miscellaneous Notes Patient called back in due to not being able to understand the phone message that was left (person spoke too fast). I relayed the message Dunia Cassidy Left voicemail message to give patient PSA results, 0.4. Results look good no change in plan. Debbie Carrington RN documented in this encounter [facility] 11-25-2021 History of Present illness Narrative POPULATION HEALTH NAVIGATION OUTREACH Action/FYI Lm for pt to call to schedule influenza, colonoscopy, ad, added notes to upcoming ov Pt identified by name and : NO Outreach Outcome/Action Unable to reach patient: Left message Did you use a PCP flex slot to schedule this appointment? N/A Reason for Outreach Care Gap or Scheduling/Wellness visits Payer: Payor: [employer] MEDICARE / Plan: [employer] MEDICARE PPO / Product Type: PPO / Care Gap Reviewed:: Colorectal Cancer Screening Flu vaccine Reminder: Reminder note to check Health Maintenance for items below Health Maintenance items due: SHINGRIX VACCINE(1 of 2) Never done BP CONTROLLED (<130/80) due on 12/31/2020 ADVANCE DIRECTIVE DISCUSSION Never done DEPRESSION ASSESSMENT Never done COVID-19 VACCINE(4 - Booster for Pfizer series) due on 04/01/2021 DTAP,TDAP,TD(2 - Td or Tdap) due on 09/15/2021 INFLUENZA(1) due on 10/28/2021 Message Sent to Practice: No Navigation Signature: Jocelyn Choi MA November 25, 2021 12:23 PM documented in this encounter [facility] 11-17-2021 Miscellaneous Notes Stevie Sanchez called today. : 1950 Allergies: Patient has no known allergies. (home) [phone] (cell) Reason for call: Pt states that you wanted him to have another PSA in 6 months. He wants to have it drawn at [facility]. Can you please confirm if you want this drawn and when and if so let us know when you have placed the order so we can contact the patient with the details. Patient last appointment: 05/26/2021 ThanksAnne documented in this encounter [facility] 08-12-2021 Miscellaneous Notes Left detailed message informing the patient of the message below, if any questions or concerns to give the office a call back. Gayle Castellon Ma Notify patient that tests are good. documented in this encounter [facility] 08-11-2021 Nurse Note Stevie Sanchez presents in office today for Lab Draw. Ordering Provider: Praful Su M.D. Test (s) ordered: BMP (SMA7) Phlebotomy was performed, accessing right antecubital vein. Needle removed intact. Dressing secured. Patient denies discomfort, dizziness, light-headedness or weakness and left the department without assist. Angi Asif Ma documented in this encounter [facility] 08-11-2021 History of Present illness Narrative SUBJECTIVE: Stevie Sanchez is a 71 year old male Patient presents with: Established Patient Follow Up On same rx, he quit smoking 4 weeks ago. No change in sx of paresthesia, urinary sx stable. CURRENT MEDICATIONS: Current Outpatient Medications on File Prior to Visit Medication Sig atorvastatin (LIPITOR) 20 mg tablet Take 1 tablet by mouth once daily. amLODIPine (NORVASC) 5 mg tablet Take 1 tablet by mouth once daily. gabapentin (NEURONTIN) 300 mg capsule TAKE 2 CAPSULES BY MOUTH 3 TIMES A DAY No current facility-administered medications on file prior to visit. PROBLEM LIST: ACTIVE PROBLEM LIST Glucose Intolerance (Impaired Glucose Tolerance) Essential Hypertension Mixed Hyperlipidemia Smoker Spinal Stenosis of Lumbar Region With Neurogenic Claudication Paresthesias Lumbosacral Neuritis Abdominal Aortic Aneurysm Without Rupture (Hcc) GENERAL: No weight loss, malaise or fevers RESPIRATORY: some sx SOB, recently stopped smoking CARDIOVASCULAR: Negative for chest pain, leg swelling, hypertension, CHF or palpitations ALLERGIES: Patient has no known allergies. REVIEW OF SYSTEMS: BP 132/64 (BP Site: Left Arm, BP Position: Sitting, BP Cuff Size: Regular Adult) Temp 36.3 C (97.4 F) (Temporal) Wt 93 kg (205 lb) BMI 27.32 kg/m General Appearance: Well appearing, alert, in no acute distress, well-hydrated, well nourished. Lungs: clear to auscultation, no wheezing or rhonchi Heart: NSR Neurologic: grossly intact ASSESSMENT/PLAN: 1. Essential hypertension - ICD9: 401.9, ICD10: I10 (primary diagnosis) - good control - Continue current medication(s) - Recommended regular aerobic exercise. - Recommend home blood pressure monitoring, to bring results in on next visit - Goal of BP <130/80 - BASIC METABOLIC PNL 2. Glucose intolerance (impaired glucose tolerance) - ICD9: 790.22, ICD10: R73.02 stable 3. Mixed hyperlipidemia - ICD9: 272.2, ICD10: E78.2 - good control - Continue current medication. - Encouraged following a low fat, low cholesterol diet. - Discussed the benefits of regular aerobic exercise and weight loss. 4. Abdominal aortic aneurysm without rupture (HCC) - ICD9: 441.4, ICD10: I71.4 stable Praful Su MD MEDICATION: Reviewed with patient REVIEW OF RECORDS: Progress note PATIENT EDUCATION: Discussed diet and Discussed exercise/therapy REVIEW OF TESTS: Labs Praful Su MD documented in this encounter [facility] 06-03-2021 Miscellaneous Notes Patient calls for medication refill today. PCP is Praful Su M.D.. Patient was last seen February 08, 2021. Last Blood work was February 08, 2021. Pending Prescriptions Disp Refills LISINOPRIL 20 MG-HYDROCHLOROTHIAZIDE 12.5 MG TABLET 90 tablet 3 Sig: Take 1 tablet by mouth once daily. NATALIE: No ATORVASTATIN 20 MG TABLET 90 tablet 3 Sig: Take 1 tablet by mouth once daily. NATALIE: No AMLODIPINE 5 MG TABLET 90 tablet 3 Sig: Take 1 tablet by mouth once daily. NATALIE: No Glucose (mg/dL) Date Value 02/08/2021 138 Potassium (mmol/L) Date Value 02/08/2021 4.1 Sodium (mmol/L) Date Value 02/08/2021 136 Chloride (mmol/L) Date Value 02/08/2021 98 CO2 (mmol/L) Date Value 02/08/2021 27 Creatinine (mg/dL) Date Value 02/08/2021 0.78 BUN (mg/dL) Date Value 02/08/2021 11 Anion Gap (mmol/L) Date Value 02/08/2021 11 Calcium (mg/dL) Date Value 02/08/2021 10.2 Lab Results Component Value Date HBA1C 6.0 02/08/2021 HBA1C 5.7 01/01/2020 HBA1C 5.9 05/14/2018 PT INR Date Value Ref Range Status 04/28/2015 1.0 0.8 - 1.2 Final Comment: The PT/INR can be used to monitor the therapeutic effect of oral anticoagulants, such as warfarin. The recommended therapeutic range is an INR of 2.0 to 3.0 for most applications, including treatment and prevention of venous thrombosis, treatment of pulmonary embolism, prevention of strokes/TIA in patients with atrial fibrillation, prevention and treatment of thrombosis in patients with a lupus anticoagulant and prevention of systemic embolization in patients with heart valve disorders. There are certain conditions where clinicians may decide to use a lower or higher therapeutic range eg. 1.5 to 1.9 for secondary prevention of idiopathic venous thromboembolism and an INR 2.5 to 3.5 for older generation mechanical heart valves. Chintan, et al. CHEST 2004: 126:204S to 233S. Cholesterol, Total (mg/dL) Date Value 02/08/2021 197 HDL Cholesterol (mg/dL) Date Value 02/08/2021 47 LDL Cholesterol (mg/dL) Date Value 02/08/2021 99 Triglyceride (mg/dL) Date Value 02/08/2021 253 No results found for: [facility] Pharmacy has been captured: Yes. Patient prefers: [facility]. Angi Asif Ma Patient phones requesting refills as follows: Pending Prescriptions Disp Refills LISINOPRIL 20 MG-HYDROCHLOROTHIAZIDE 12.5 MG TABLET 90 tablet 3 Sig: Take 1 tablet by mouth once daily. NATALIE: No ATORVASTATIN 20 MG TABLET 90 tablet 3 Sig: Take 1 tablet by mouth once daily. NATALIE: No AMLODIPINE 5 MG TABLET 90 tablet 3 Sig: Take 1 tablet by mouth once daily. NATALIE: No Please review and advise. Brooke Root documented in this encounter [facility] 05-26-2021 Miscellaneous Notes Message left for Stevie. PSA <0.02 & testosterone <84. Numbers are good & needs to get repeat in 6 months Alida Isaacs RN documented in this encounter [facility] 09-15-2011 History of Past i llness Narrative Problem Noted Date Resolved Date Hypercholesteremia 09/15/2011 09/16/2011 documented as of this encounter (statuses as of 05/26/2021) [facility] History of Past illness Narrative* Problem Noted Date Resolved Date Hypercholesteremia 09/15/2011 09/16/2011 documented as of this encounter (statuses as of 06/03/2021) [facility] History of Past illness Narrative* Problem Noted Date Resolved Date Hypercholesteremia 09/15/2011 09/16/2011 documented as of this encounter (statuses as of 08/11/2021) [facility] History of Past illness Narrative* Problem Noted Date Resolved Date Hypercholesteremia 09/15/2011 09/16/2011 documented as of this encounter (statuses as of 08/12/2021) [facility] History of Past illness Narrative* Problem Noted Date Resolved Date Hypercholesteremia 09/15/2011 09/16/2011 documented as of this encounter (statuses as of 11/18/2021) [facility] History of Past illness Narrative* Problem Noted Date Resolved Date Hypercholesteremia 09/15/2011 09/16/2011 documented as of this encounter (statuses as of 11/25/2021) [facility] History of Past illness Narrative* Problem Noted Date Resolved Date Hypercholesteremia 09/15/2011 09/16/2011 documented as of this encounter (statuses as of 12/07/2021) [facility] History of Past illness Narrative* Problem Noted Date Resolved Date Hypercholesteremia 09/15/2011 09/16/2011 documented as of this encounter (statuses as of 02/07/2022) [facility] History of Past illness Narrative* Problem Noted Date Resolved Date Hypercholesteremia 09/15/2011 09/16/2011 documented as of this encounter (statuses as of 03/07/2022) [facility] History of Past illness Narrative* Problem Noted Date Resolved Date Hypercholesteremia 09/15/2011 09/16/2011 documented as of this encounter (statuses as of 03/14/2022) [address]19-2012 History of Past illness Narrative* Problem Noted Date Resolved Date Hypercholesteremia 09/15/2011 09/16/2011 documented as of this encounter (statuses as of 03/16/2022) [address]19[address]2012 History of Past illness Narrative* Problem Noted Date Resolved Date Hypercholesteremia 09/15/2011 09/16/2011 documented as of this encounter (statuses as of 03/18/2022) [address]2012 History of Past illness Narrative* Problem Noted Date Resolved Date Hypercholesteremia 09/15/2011 09/16/2011 documented as of this encounter (statuses as of 03/23/2022) [address]2012 History of Past illness Narrative* Problem Noted Date Resolved Date Hypercholesteremia 09/15/2011 09/16/2011 documented as of this encounter (statuses as of 03/30/2022) [address]2012 History of Past illness Narrative* Problem Noted Date Resolved Date Hypercholesteremia 09/15/2011 09/16/2011 documented as of this encounter (statuses as of 04/12/2022) [address]2012 History of Past illness Narrative* Problem Noted Date Resolved Date Hypercholesteremia 09/15/2011 09/16/2011 documented as of this encounter (statuses as of 05/30/2022) [address]2012 History of Past illness Narrative* Problem Noted Date Resolved Date Hypercholesteremia 09/15/2011 09/16/2011 documented as of this encounter (statuses as of 08/29/2022) [address]2012 History of Past illness Narrative* Problem Noted Date Diagnosed Date Resolved Date Hypercholesteremia 09/15/2011 2 documented as of this encounter (statuses as of 09/26/2022) [address]2012 History of Past illness Narrative* Problem Noted Date Diagnosed Date Resolved Date Hypercholesteremia 09/15/2011 2 documented as of this encounter (statuses as of 10/14/2022) [address]2012 History of Past illness Narrative* Problem Noted Date Diagnosed Date Resolved Date Hypercholesteremia 09/15/2011 2 documented as of this encounter (statuses as of 01/03/2023) [address]2012 History of Past illness Narrative* Problem Noted Date Diagnosed Date Resolved Date Hypercholesteremia 09/15/2011 2 documented as of this encounter (statuses as of 04/25/2023) [facility] History of Past illness Narrative* Problem Noted Date Diagnosed Date Resolved Date Hypercholesteremia 09/15/2011 2 documented as of this encounter (statuses as of 04/28/2023) [address]2012 History of Past illness Narrative* Problem Noted Date Diagnosed Date Resolved Date Hypercholesteremia 09/15/2011 2 documented as of this encounter (statuses as of 05/05/2023) [facility] History of Past illness Narrative* Problem Noted Date Diagnosed Date Resolved Date Hypercholesteremia 09/15/2011 2 documented as of this encounter (statuses as of 05/11/2023) [facility] History of Past illness Narrative* Problem Noted Date Diagnosed Date Resolved Date Hypercholesteremia 09/15/2011 2 documented as of this encounter (statuses as of 05/18/2023) [facility] History of Past illness Narrative* Problem Noted Date Diagnosed Date Resolved Date Hypercholesteremia 09/15/2011 2 documented as of this encounter (statuses as of 05/18/2023) [facility] History of Past illness Narrative* Problem Noted Date Diagnosed Date Resolved Date Hypercholesteremia 09/15/2011 2 documented as of this encounter (statuses as of 05/18/2023) [address]2012 History of Past illness Narrative* Problem Noted Date Diagnosed Date Resolved Date Hypercholesteremia 09/15/2011 2 documented as of this encounter (statuses as of 05/30/2023) [address]2012 History of Past illness Narrative* Problem Noted Date Diagnosed Date Resolved Date Hypercholesteremia 09/15/2011 2 documented as of this encounter (statuses as of 05/30/2023) [address]2012 History of Past illness Narrative* Problem Noted Date Diagnosed Date Resolved Date Hypercholesteremia 09/15/2011 2 documented as of this encounter (statuses as of 06/09/2023) [address]19[address]2012 History of Past illness Narrative* Problem Noted Date Diagnosed Date Resolved Date Hypercholesteremia 09/15/2011 2 documented as of this encounter (statuses as of 06/09/2023) [address]2012 History of Past illness Narrative* Problem Noted Date Diagnosed Date Resolved Date Hypercholesteremia 09/15/2011 2 documented as of this encounter (statuses as of 06/13/2023) [address]2012 History of Past illness Narrative* Problem Noted Date Diagnosed Date Resolved Date Hypercholesteremia 09/15/2011 2 documented as of this encounter (statuses as of 06/13/2023) [address]2012 History of Past illness Narrative* Problem Noted Date Diagnosed Date Resolved Date Hypercholesteremia 09/15/2011 2 documented as of this encounter (statuses as of 06/15/2023) [address]2012 History of Past illness Narrative* Problem Noted Date Diagnosed Date Resolved Date Hypercholesteremia 09/15/2011 2 documented as of this encounter (statuses as of 06/16/2023) [facility] Diagnosis Essential hypertension- Primary Unspecified essential hypertension Glucose intolerance (impaired glucose tolerance) Impaired glucose tolerance test Mixed hyperlipidemia Abdominal aortic aneurysm without rupture (HCC) Abdominal aneurysm without mention of rupture [facility] Diagnosis Spinal stenosis of lumbar region with neurogenic claudication Spinal stenosis, lumbar region, with neurogenic claudication Paresthesias Disturbance of skin sensation [facility] Diagnosis Essential hypertension- Primary Unspecified essential hypertension Glucose intolerance (impaired glucose tolerance) Impaired glucose tolerance test Abdominal aortic aneurysm (AAA) without rupture, unspecified part Screening for colon cancer Special screening for malignant neoplasms, colon Abdominal aortic aneurysm (AAA) without rupture, unspecified part [facility] Diagnosis Abdominal aortic aneurysm (AAA) without rupture, unspecified part [facility] Diagnosis Abdominal aortic aneurysm (AAA) without rupture, unspecified part- Primary [facility] Diagnosis Abdominal aortic aneurysm (AAA) without rupture, unspecified part- Primary [facility]* Diagnosis Abdominal aortic aneurysm (AAA) without rupture, unspecified part documented in this encounter [facility] note* Diagnosis Malignant neoplasm of prostate (HCC)- Primary Malignant neoplasm of prostate documented in this encounter [facility] note* Diagnosis Infrarenal abdominal aortic aneurysm (AAA) without rupture (HCC)- Primary documented in this encounter [facility] note* Diagnosis Abdominal aortic aneurysm (AAA) without rupture, unspecified part (HCC)- Primary Primary hypertension Unspecified essential hypertension HDL deficiency Lipoprotein deficiencies Encounter for other preprocedural examination documented in this encounter [facility] note* Diagnosis Glucose intolerance (impaired glucose tolerance)- Primary Impaired glucose tolerance test Spinal stenosis of lumbar region with neurogenic claudication Spinal stenosis, lumbar region, with neurogenic claudication Paresthesias Disturbance of skin sensation Prostate cancer (HCC) Malignant neoplasm of prostate Essential hypertension Unspecified essential hypertension Abdominal aortic aneurysm (AAA) without rupture, unspecified part (HCC) Mixed hyperlipidemia Screening for colon cancer Special screening for malignant neoplasms, colon [facility] Diagnosis Abdominal aortic aneurysm (AAA) without rupture, unspecified part (HCC) documented in this encounter [facility] note* Diagnosis Encounter for other preprocedural examination [facility] Diagnosis Lung nodule- Primary Solitary pulmonary nodule [facility]* Diagnosis Lung nodules- Primary Other nonspecific abnormal finding of lung field documented in this encounter [facility] note* Diagnosis Multiple lung nodules- Primary Other nonspecific abnormal finding of lung field Centrilobular emphysema (HCC) Other emphysema Former smoker Personal history of tobacco use, presenting hazards to health [facility] Diagnosis SOB (shortness of breath)- Primary Shortness of breath Lung nodules Other nonspecific abnormal finding of lung field Centrilobular emphysema (HCC) Other emphysema Former smoker Personal history of tobacco use, presenting hazards to health Infrarenal abdominal aortic aneurysm (AAA) without rupture (HCC) History of prostate cancer Personal history of malignant neoplasm of prostate [facility] Diagnosis Lung mass- Primary Swelling, mass, or lump in chest documented [facility] Diagnosis Lung mass- Primary Swelling, mass, or lump in chest documented [facility] Diagnosis Lung mass Swelling, mass, or lump in chest Lung mass Swelling, mass, or lump in chest documented [facility] Diagnosis Lung nodules Other nonspecific abnormal finding of lung field [facility] Diagnosis Abdominal aortic aneurysm (AAA) without rupture, unspecified part (HCC)- Primary [facility]* Diagnosis SOB (shortness of breath) Shortness of breath [facility] Diagnosis SOB (shortness of breath) Shortness of breath [facility] Diagnosis Lung mass- Primary Swelling, mass, or lump in chest Chronic obstructive pulmonary disease, unspecified COPD type (HCC) SOB (shortness of breath) Shortness of breath Centrilobular emphysema (HCC) Other emphysema Lung nodules Other nonspecific abnormal finding of lung field Current smoker Tobacco use disorder documented [facility]* Diagnosis Spinal stenosis of lumbar region with neurogenic claudication Spinal stenosis, lumbar region, with neurogenic claudication Paresthesias Disturbance of skin sensation [facility] Diagnosis Lung mass Swelling, mass, or lump in chest documented [facility] Diagnosis Chronic obstructive pulmonary disease, unspecified COPD type (HCC)- Primary Preoperative clearance Preoperative examination, unspecified Paroxysmal atrial fibrillation (HCC) Atrial fibrillation Lung mass Swelling, mass, or lump in chest Former smoker Personal history of tobacco use, presenting hazards to health documented [facility] Diagnosis Mass of right lung- Primary documented [facility] Diagnosis Lung mass- Primary Swelling, mass, or lump in chest documented [facility]* Diagnosis Pre-op evaluation- Primary Preoperative examination, unspecified Abdominal aortic aneurysm (AAA) without rupture, unspecified part (HCC) Primary hypertension Unspecified essential hypertension Mixed hyperlipidemia Cigarette nicotine dependence in remission Personal history of tobacco use, presenting hazards to health Glucose intolerance (impaired glucose tolerance) Impaired glucose tolerance test Prostate cancer (HCC) Malignant neoplasm of prostate Paroxysmal atrial fibrillation (HCC) Atrial fibrillation Lung mass Swelling, mass, or lump in chest * Assessment & Plan Note - Sailaja Gonzalez PA-C - 09/11/2023 2:59 PM EDT Associated Problem(s): Paroxysmal atrial fibrillation (HCC) Assessment: Last bronchoscopy in 05/2023, course was complicated when pt developed atrial fibrillation with rvr post-op per pt physical instructor note. Consult to cardiology was placed. On exam, pt is in regular rhythm. Denies palpitations, dyspnea, syncope. Our scheduling team was able to add on for cardiology appointment this (09/13) for evaluation/optimization. If further testing is required, bronch may need to be postponed. * Assessment & Plan Note - Sailaja Gonzalez PA-C - 09/11/2023 2:45 PM EDT Associated Problem(s): Prostate cancer (HCC) Assessment: Hx of prostate cancer s/p XRT. * Assessment & Plan Note - Sailaja Gonzalez PA-C - 09/11/2023 2:44 PM EDT Associated Problem(s): Glucose intolerance (impaired glucose tolerance) Assessment: PCP monitors. Not on rx. Hemoglobin A1C (%) Date Value 05/02/2023 6.1 02/08/2021 6.0 * Assessment & Plan Note - Sailaja Gonzalez PA-C - 09/11/2023 2:43 PM EDT Associated Problem(s): Cigarette nicotine dependence in remission Assessment: Quit 2021. Encouraged continued cessation. * Assessment & Plan Note - Sailaja Gonzalez PA-C - 09/11/2023 2:43 PM EDT Associated Problem(s): Mixed hyperlipidemia Assessment: Adherent to statin therapy. * Assessment & Plan Note - Sailaja Gonzalez PA-C - 09/11/2023 2:42 PM EDT Associated Problem(s): Primary hypertension Assessment: Follows with PCP, adherent to RX. In office today BP: 119/74 * Assessment & Plan Note - Sailaja Gonzalez PA-C - 09/11/2023 2:42 PM EDT Associated Problem(s): Abdominal aortic aneurysm (AAA) without rupture (HCC) Assessment: Follows with vascular. Monitored with imaging q 6 months. Per most recent note (Dr. Jackson, 06/06/23): Mr. Sanchez is a 72 year old male with 5 cm fusiform aneurysm. RTC 6 m with ultrasound AAA. Reviewed symptoms of rupture and patient to seek urgent medical attention if symptomatic. [facility] Diagnosis Preoperative cardiovascular examination- Primary Pre-operative cardiovascular examination Lung mass Swelling, mass, or lump in chest Mixed hyperlipidemia Primary hypertension Unspecified essential hypertension Lung mass Swelling, mass, or lump in chest [facility] Diagnosis Squamous cell carcinoma of lung, unspecified laterality (HCC)- Primary documented in [facility] [facility] Diagnosis Malignant neoplasm of lung, unspecified laterality, unspecified part of lung (HCC)- Primary Squamous cell carcinoma of lung, unspecified laterality (HCC) [facility] [facility] Diagnosis Squamous cell carcinoma of lung, unspecified laterality (HCC)- Primary [facility] [place] [facility] Diagnosis Malignant neoplasm of lower lobe of right lung (HCC)- Primary Lung nodule Solitary pulmonary nodule documented in [facility] [facility]* Diagnosis Pre-op evaluation- Primary Preoperative examination, unspecified Abdominal aortic aneurysm (AAA) without rupture, unspecified part (HCC) Primary hypertension Unspecified essential hypertension Mixed hyperlipidemia Cigarette nicotine dependence in remission Personal history of tobacco use, presenting hazards to health Glucose intolerance (impaired glucose tolerance) Impaired glucose tolerance test Prostate cancer (HCC) Malignant neoplasm of prostate Paroxysmal atrial fibrillation (HCC) Atrial fibrillation Malignant neoplasm of lower lobe of right lung (HCC) Lung nodule Solitary pulmonary nodule documented [facility] [facility] Diagnosis Pre-op evaluation- Primary Preoperative examination, unspecified Abdominal aortic aneurysm (AAA) without rupture, unspecified part (HCC) Primary hypertension Unspecified essential hypertension Mixed hyperlipidemia Cigarette nicotine dependence in remission Personal history of tobacco use, presenting hazards to health Glucose intolerance (impaired glucose tolerance) Impaired glucose tolerance test Prostate cancer (HCC) Malignant neoplasm of prostate Paroxysmal atrial fibrillation (HCC) Atrial fibrillation Personal history of malignant neoplasm of bronchus and lung- Primary documented [facility] [facility] Diagnosis Pre-op evaluation- Primary Preoperative examination, unspecified Abdominal aortic aneurysm (AAA) without rupture, unspecified part (HCC) Primary hypertension Unspecified essential hypertension Mixed hyperlipidemia Cigarette nicotine dependence in remission Personal history of tobacco use, presenting hazards to health Glucose intolerance (impaired glucose tolerance) Impaired glucose tolerance test Prostate cancer (HCC) Malignant neoplasm of prostate Paroxysmal atrial fibrillation (HCC) Atrial fibrillation Essential hypertension- Primary Unspecified essential hypertension Screening for depression Encounter for screening examination for other mental health and behavioral disorders Prostate cancer (HCC) Malignant neoplasm of prostate Glucose intolerance (impaired glucose tolerance) Impaired glucose tolerance test Spinal stenosis of lumbar region with neurogenic claudication Spinal stenosis, lumbar region, with neurogenic claudication Mixed hyperlipidemia Malignant neoplasm of lower lobe of right lung (HCC) documented [facility] [facility] Diagnosis Pre-op evaluation- Primary Preoperative examination, unspecified Abdominal aortic aneurysm (AAA) without rupture, unspecified part (HCC) Primary hypertension Unspecified essential hypertension Mixed hyperlipidemia Cigarette nicotine dependence in remission Personal history of tobacco use, presenting hazards to health Glucose intolerance (impaired glucose tolerance) Impaired glucose tolerance test Prostate cancer (HCC) Malignant neoplasm of prostate Paroxysmal atrial fibrillation (HCC) Atrial fibrillation Malignant neoplasm of lower lobe of right lung (HCC)- Primary Pre-procedure lab exam Pre-procedural laboratory examination Encounter for other preprocedural examination documented in this [facility] [facility] Diagnosis Pre-op evaluation- Primary Preoperative examination, unspecified Abdominal aortic aneurysm (AAA) without rupture, unspecified part (HCC) Primary hypertension Unspecified essential hypertension Mixed hyperlipidemia Cigarette nicotine dependence in remission Personal history of tobacco use, presenting hazards to health Glucose intolerance (impaired glucose tolerance) Impaired glucose tolerance test Prostate cancer (HCC) Malignant neoplasm of prostate Paroxysmal atrial fibrillation (HCC) Atrial fibrillation Encounter for preoperative anesthesiology assessment for thoracic surgery- Primary Malignant neoplasm of lower lobe of right lung (HCC) Pre-procedure lab exam Pre-procedural laboratory examination documented in this [facility] [place] [facility] Diagnosis Pre-op evaluation- Primary Preoperative examination, unspecified Abdominal aortic aneurysm (AAA) without rupture, unspecified part (HCC) Primary hypertension Unspecified essential hypertension Mixed hyperlipidemia Cigarette nicotine dependence in remission Personal history of tobacco use, presenting hazards to health Glucose intolerance (impaired glucose tolerance) Impaired glucose tolerance test Prostate cancer (HCC) Malignant neoplasm of prostate Paroxysmal atrial fibrillation (HCC) Atrial fibrillation Malignant neoplasm of lower lobe of right lung (HCC)- Primary Malignant neoplasm of lower lobe of right lung (HCC) Pre-procedure lab exam Pre-procedural laboratory examination documented [facility] this [facility] [place] [facility] Diagnosis Pre-op evaluation- Primary Preoperative examination, unspecified Abdominal aortic aneurysm (AAA) without rupture, unspecified part (HCC) Primary hypertension Unspecified essential hypertension Mixed hyperlipidemia Cigarette nicotine dependence in remission Personal history of tobacco use, presenting hazards to health Glucose intolerance (impaired glucose tolerance) Impaired glucose tolerance test Prostate cancer (HCC) Malignant neoplasm of prostate Paroxysmal atrial fibrillation (HCC) Atrial fibrillation Malignant neoplasm of lower lobe of right lung (HCC) Pre-procedure lab exam Pre-procedural laboratory examination Malignant neoplasm of lower lobe of right lung (HCC) Pre-procedure lab exam Pre-procedural laboratory examination documented [facility] this [facility] [place] [facility] Diagnosis Pre-op evaluation- Primary Preoperative examination, unspecified Abdominal aortic aneurysm (AAA) without rupture, unspecified part (HCC) Primary hypertension Unspecified essential hypertension Mixed hyperlipidemia Cigarette nicotine dependence in remission Personal history of tobacco use, presenting hazards to health Glucose intolerance (impaired glucose tolerance) Impaired glucose tolerance test Prostate cancer (HCC) Malignant neoplasm of prostate Paroxysmal atrial fibrillation (HCC) Atrial fibrillation Malignant neoplasm of lower lobe of right lung (HCC) Pre-procedure lab exam Pre-procedural laboratory examination Encounter for other preprocedural examination Malignant neoplasm of lower lobe of right lung (HCC) Pre-procedure lab exam Pre-procedural laboratory examination documented [facility] Diagnosis Pre-op evaluation- Primary Preoperative examination, unspecified Abdominal aortic aneurysm (AAA) without rupture, unspecified part (HCC) Primary hypertension Unspecified essential hypertension Mixed hyperlipidemia Cigarette nicotine dependence in remission Personal history of tobacco use, presenting hazards to health Glucose intolerance (impaired glucose tolerance) Impaired glucose tolerance test Prostate cancer (HCC) Malignant neoplasm of prostate Paroxysmal atrial fibrillation (HCC) Atrial fibrillation Malignant neoplasm of lower lobe of right lung (HCC) Malignant neoplasm of lower lobe of right lung (HCC) Pre-procedure lab exam Pre-procedural laboratory examination documented [facility] Diagnosis Pre-op evaluation- Primary Preoperative examination, unspecified Abdominal aortic aneurysm (AAA) without rupture, unspecified part (HCC) Primary hypertension Unspecified essential hypertension Mixed hyperlipidemia Cigarette nicotine dependence in remission Personal history of tobacco use, presenting hazards to health Glucose intolerance (impaired glucose tolerance) Impaired glucose tolerance test Prostate cancer (HCC) Malignant neoplasm of prostate Paroxysmal atrial fibrillation (HCC) Atrial fibrillation Malignant neoplasm of lower lobe of right lung (HCC)- Primary Lung nodule Solitary pulmonary nodule documented in this [facility] [place] [facility]* Diagnosis Pre-op evaluation- Primary Preoperative examination, unspecified Abdominal aortic aneurysm (AAA) without rupture, unspecified part (HCC) Primary hypertension Unspecified essential hypertension Mixed hyperlipidemia Cigarette nicotine dependence in remission Personal history of tobacco use, presenting hazards to health Glucose intolerance (impaired glucose tolerance) Impaired glucose tolerance test Prostate cancer (HCC) Malignant neoplasm of prostate Paroxysmal atrial fibrillation (HCC) Atrial fibrillation Malignant neoplasm of lower lobe of right lung (HCC) Abscess of lower lobe of right lung without pneumonia (HCC) [facility]- Primary Preoperative examination, unspecified Abdominal aortic aneurysm (AAA) without rupture, unspecified part (HCC) Primary hypertension Unspecified essential hypertension Mixed hyperlipidemia Cigarette nicotine dependence in remission Personal history of tobacco use, presenting hazards to health Glucose intolerance (impaired glucose tolerance) Impaired glucose tolerance test Prostate cancer (HCC) Malignant neoplasm of prostate Paroxysmal atrial fibrillation (HCC) Atrial fibrillation Squamous cell carcinoma of lung, unspecified laterality (HCC)- Primary [facility] Diagnosis Pre-op evaluation- Primary Preoperative examination, unspecified Abdominal aortic aneurysm (AAA) without rupture, unspecified part (HCC) Primary hypertension Unspecified essential hypertension Mixed hyperlipidemia Cigarette nicotine dependence in remission Personal history of tobacco use, presenting hazards to health Glucose intolerance (impaired glucose tolerance) Impaired glucose tolerance test Prostate cancer (HCC) Malignant neoplasm of prostate Paroxysmal atrial fibrillation (HCC) Atrial fibrillation Squamous cell carcinoma of lung, unspecified laterality (HCC) [facility] [place] [facility]* Diagnosis Pre-op evaluation- Primary Preoperative examination, unspecified Abdominal aortic aneurysm (AAA) without rupture, unspecified part (HCC) Primary hypertension Unspecified essential hypertension Mixed hyperlipidemia Cigarette nicotine dependence in remission Personal history of tobacco use, presenting hazards to health Glucose intolerance (impaired glucose tolerance) Impaired glucose tolerance test Prostate cancer (HCC) Malignant neoplasm of prostate Paroxysmal atrial fibrillation (HCC) Atrial fibrillation Malignant neoplasm of unspecified part of unspecified bronchus or lung (HCC)- Primary documented in this encounter [facility] note* Diagnosis Pre-op evaluation- Primary Preoperative examination, unspecified Abdominal aortic aneurysm (AAA) without rupture, unspecified part (HCC) Primary hypertension Unspecified essential hypertension Mixed hyperlipidemia Cigarette nicotine dependence in remission Personal history of tobacco use, presenting hazards to health Glucose intolerance (impaired glucose tolerance) Impaired glucose tolerance test Prostate cancer (HCC) Malignant neoplasm of prostate Paroxysmal atrial fibrillation (HCC) Atrial fibrillation Cancer of bronchus of right upper lobe (HCC)- Primary documented in this encounter [facility] note* Diagnosis Pre-op evaluation- Primary Preoperative examination, unspecified Abdominal aortic aneurysm (AAA) without rupture, unspecified part (HCC) Primary hypertension Unspecified essential hypertension Mixed hyperlipidemia Cigarette nicotine dependence in remission Personal history of tobacco use, presenting hazards to health Glucose intolerance (impaired glucose tolerance) Impaired glucose tolerance test Prostate cancer (HCC) Malignant neoplasm of prostate Paroxysmal atrial fibrillation (HCC) Atrial fibrillation Infrarenal abdominal aortic aneurysm (AAA) without rupture (HCC)- Primary documented in this encounter [facility] note* Diagnosis Pre-op evaluation- Primary Preoperative examination, unspecified Abdominal aortic aneurysm (AAA) without rupture, unspecified part (HCC) Primary hypertension Unspecified essential hypertension Mixed hyperlipidemia Cigarette nicotine dependence in remission Personal history of tobacco use, presenting hazards to health Glucose intolerance (impaired glucose tolerance) Impaired glucose tolerance test Prostate cancer (HCC) Malignant neoplasm of prostate Paroxysmal atrial fibrillation (HCC) Atrial fibrillation Prostate cancer (HCC)- Primary Malignant neoplasm of prostate [facility] [place] [facility]* Diagnosis Pre-op evaluation- Primary Preoperative examination, unspecified Abdominal aortic aneurysm (AAA) without rupture, unspecified part (HCC) Primary hypertension Unspecified essential hypertension Mixed hyperlipidemia Cigarette nicotine dependence in remission Personal history of tobacco use, presenting hazards to health Glucose intolerance (impaired glucose tolerance) Impaired glucose tolerance test Prostate cancer (HCC) Malignant neoplasm of prostate Paroxysmal atrial fibrillation (HCC) Atrial fibrillation Malignant neoplasm of lower lobe of right lung (HCC)- Primary Lung nodule Solitary pulmonary nodule Chronic obstructive pulmonary disease, unspecified COPD type (HCC) documented [facility] [place] [facility]* Diagnosis Pre-op evaluation- Primary Preoperative examination, unspecified Abdominal aortic aneurysm (AAA) without rupture, unspecified part (HCC) Primary hypertension Unspecified essential hypertension Mixed hyperlipidemia Cigarette nicotine dependence in remission Personal history of tobacco use, presenting hazards to health Glucose intolerance (impaired glucose tolerance) Impaired glucose tolerance test Prostate cancer (HCC) Malignant neoplasm of prostate Paroxysmal atrial fibrillation (HCC) Atrial fibrillation Malignant neoplasm of lower lobe of right lung (HCC) documented in this encounter [facility] note* Diagnosis Pre-op evaluation- Primary Preoperative examination, unspecified Abdominal aortic aneurysm (AAA) without rupture, unspecified part (HCC) Primary hypertension Unspecified essential hypertension Mixed hyperlipidemia Cigarette nicotine dependence in remission Personal history of tobacco use, presenting hazards to health Glucose intolerance (impaired glucose tolerance) Impaired glucose tolerance test Prostate cancer (HCC) Malignant neoplasm of prostate Paroxysmal atrial fibrillation (HCC) Atrial fibrillation Malignant neoplasm of upper lobe of right lung (HCC)- Primary Malignant neoplasm of upper lobe, bronchus or lung Malignant neoplasm of unspecified part of unspecified bronchus or lung (HCC) documented [facility] [place] [facility]* Diagnosis Pre-op evaluation- Primary Preoperative examination, unspecified Abdominal aortic aneurysm (AAA) without rupture, unspecified part (HCC) Primary hypertension Unspecified essential hypertension Mixed hyperlipidemia Cigarette nicotine dependence in remission Personal history of tobacco use, presenting hazards to health Glucose intolerance (impaired glucose tolerance) Impaired glucose tolerance test Prostate cancer (HCC) Malignant neoplasm of prostate Paroxysmal atrial fibrillation (HCC) Atrial fibrillation Postprocedural pneumothorax- Primary Iatrogenic pneumothorax documented [facility] [place] [facility]* Diagnosis Pre-op evaluation- Primary Preoperative examination, unspecified Abdominal aortic aneurysm (AAA) without rupture, unspecified part (HCC) Primary hypertension Unspecified essential hypertension Mixed hyperlipidemia Cigarette nicotine dependence in remission Personal history of tobacco use, presenting hazards to health Glucose intolerance (impaired glucose tolerance) Impaired glucose tolerance test Prostate cancer (HCC) Malignant neoplasm of prostate Paroxysmal atrial fibrillation (HCC) Atrial fibrillation Postprocedural pneumothorax Iatrogenic pneumothorax documented [facility] [place] [facility] Diagnosis Pre-op evaluation- Primary Preoperative examination, unspecified Abdominal aortic aneurysm (AAA) without rupture, unspecified part (HCC) Primary hypertension Unspecified essential hypertension Mixed hyperlipidemia Cigarette nicotine dependence in remission Personal history of tobacco use, presenting hazards to health Glucose intolerance (impaired glucose tolerance) Impaired glucose tolerance test Prostate cancer (HCC) Malignant neoplasm of prostate Paroxysmal atrial fibrillation (HCC) Atrial fibrillation Malignant neoplasm of upper lobe of right lung (HCC)- Primary Malignant neoplasm of upper lobe, bronchus or lung documented [facility] [place] [facility]* Diagnosis Pre-op evaluation- Primary Preoperative examination, unspecified Abdominal aortic aneurysm (AAA) without rupture, unspecified part (HCC) Primary hypertension Unspecified essential hypertension Mixed hyperlipidemia Cigarette nicotine dependence in remission Personal history of tobacco use, presenting hazards to health Glucose intolerance (impaired glucose tolerance) Impaired glucose tolerance test Prostate cancer (HCC) Malignant neoplasm of prostate Paroxysmal atrial fibrillation (HCC) Atrial fibrillation Essential hypertension- Primary Unspecified essential hypertension Spinal stenosis of lumbar region with neurogenic claudication Spinal stenosis, lumbar region, with neurogenic claudication Paresthesias Disturbance of skin sensation Prostate cancer (HCC) Malignant neoplasm of prostate Mixed hyperlipidemia Screening for colon cancer Special screening for malignant neoplasms, colon documented in [facility] [place] [facility]* Diagnosis Pre-op evaluation- Primary Preoperative examination, unspecified Abdominal aortic aneurysm (AAA) without rupture, unspecified part (HCC) Primary hypertension Unspecified essential hypertension Mixed hyperlipidemia Cigarette nicotine dependence in remission Personal history of tobacco use, presenting hazards to health Glucose intolerance (impaired glucose tolerance) Impaired glucose tolerance test Prostate cancer (HCC) Malignant neoplasm of prostate Paroxysmal atrial fibrillation (HCC) Atrial fibrillation Chronic obstructive pulmonary disease, unspecified COPD type (HCC) documented in [facility] [place] [facility]* Diagnosis Pre-op evaluation- Primary Preoperative examination, unspecified Abdominal aortic aneurysm (AAA) without rupture, unspecified part (HCC) Primary hypertension Unspecified essential hypertension Mixed hyperlipidemia Cigarette nicotine dependence in remission Personal history of tobacco use, presenting hazards to health Glucose intolerance (impaired glucose tolerance) Impaired glucose tolerance test Prostate cancer (HCC) Malignant neoplasm of prostate Paroxysmal atrial fibrillation (HCC) Atrial fibrillation Chronic obstructive pulmonary disease, unspecified COPD type (HCC) documented [facility] [place] [facility]* Diagnosis Pre-op evaluation- Primary Preoperative examination, unspecified Abdominal aortic aneurysm (AAA) without rupture, unspecified part (HCC) Primary hypertension Unspecified essential hypertension Mixed hyperlipidemia Cigarette nicotine dependence in remission Personal history of tobacco use, presenting hazards to health Glucose intolerance (impaired glucose tolerance) Impaired glucose tolerance test Prostate cancer (HCC) Malignant neoplasm of prostate Paroxysmal atrial fibrillation (HCC) Atrial fibrillation Malignant neoplasm of unspecified part of unspecified bronchus or lung (HCC) documented [facility] [place] [facility]* Diagnosis Pre-op evaluation- Primary Preoperative examination, unspecified Abdominal aortic aneurysm (AAA) without rupture, unspecified part (HCC) Primary hypertension Unspecified essential hypertension Mixed hyperlipidemia Cigarette nicotine dependence in remission Personal history of tobacco use, presenting hazards to health Glucose intolerance (impaired glucose tolerance) Impaired glucose tolerance test Prostate cancer (HCC) Malignant neoplasm of prostate Paroxysmal atrial fibrillation (HCC) Atrial fibrillation Malignant neoplasm of lower lobe of right lung (HCC)- Primary Pneumothorax, unspecified type documented [facility] [place] [facility]* Diagnosis Pre-op evaluation- Primary Preoperative examination, unspecified Abdominal aortic aneurysm (AAA) without rupture, unspecified part (HCC) Primary hypertension Unspecified essential hypertension Mixed hyperlipidemia Cigarette nicotine dependence in remission Personal history of tobacco use, presenting hazards to health Glucose intolerance (impaired glucose tolerance) Impaired glucose tolerance test Prostate cancer (HCC) Malignant neoplasm of prostate Paroxysmal atrial fibrillation (HCC) Atrial fibrillation Malignant neoplasm of lower lobe of right lung (HCC)- Primary Pneumothorax on right Other pneumothorax documented [facility] [place] [facility]* Diagnosis Pre-op evaluation- Primary Preoperative examination, unspecified Abdominal aortic aneurysm (AAA) without rupture, unspecified part (HCC) Primary hypertension Unspecified essential hypertension Mixed hyperlipidemia Cigarette nicotine dependence in remission Personal history of tobacco use, presenting hazards to health Glucose intolerance (impaired glucose tolerance) Impaired glucose tolerance test Prostate cancer (HCC) Malignant neoplasm of prostate Paroxysmal atrial fibrillation (HCC) Atrial fibrillation Pneumothorax, unspecified type documented [facility] [place] [facility]* Diagnosis Pre-op evaluation- Primary Preoperative examination, unspecified Abdominal aortic aneurysm (AAA) without rupture, unspecified part (HCC) Primary hypertension Unspecified essential hypertension Mixed hyperlipidemia Cigarette nicotine dependence in remission Personal history of tobacco use, presenting hazards to health Glucose intolerance (impaired glucose tolerance) Impaired glucose tolerance test Prostate cancer (HCC) Malignant neoplasm of prostate Paroxysmal atrial fibrillation (HCC) Atrial fibrillation Cancer of bronchus of right upper lobe (HCC)- Primary [facility] Diagnosis Pre-op evaluation- Primary Preoperative examination, unspecified Abdominal aortic aneurysm (AAA) without rupture, unspecified part Primary hypertension Unspecified essential hypertension Mixed hyperlipidemia Cigarette nicotine dependence in remission Personal history of tobacco use, presenting hazards to health Glucose intolerance (impaired glucose tolerance) Impaired glucose tolerance test Prostate cancer (HCC) Malignant neoplasm of prostate Paroxysmal atrial fibrillation (HCC) Atrial fibrillation Hydropneumothorax- Primary Other specified forms of effusion, except tuberculous Pre-procedure lab exam Pre-procedural laboratory examination documented [facility] Diagnosis Pre-op evaluation- Primary Preoperative examination, unspecified Abdominal aortic aneurysm (AAA) without rupture, unspecified part Primary hypertension Unspecified essential hypertension Mixed hyperlipidemia Cigarette nicotine dependence in remission Personal history of tobacco use, presenting hazards to health Glucose intolerance (impaired glucose tolerance) Impaired glucose tolerance test Prostate cancer (HCC) Malignant neoplasm of prostate Paroxysmal atrial fibrillation (HCC) Atrial fibrillation Encounter for preoperative anesthesiology assessment for thoracic surgery- Primary Hydropneumothorax Other specified forms of effusion, except tuberculous Pre-procedure lab exam Pre-procedural laboratory examination [facility] Diagnosis Pre-op evaluation- Primary Preoperative examination, unspecified Abdominal aortic aneurysm (AAA) without rupture, unspecified part Primary hypertension Unspecified essential hypertension Mixed hyperlipidemia Cigarette nicotine dependence in remission Personal history of tobacco use, presenting hazards to health Glucose intolerance (impaired glucose tolerance) Impaired glucose tolerance test Prostate cancer (HCC) Malignant neoplasm of prostate Paroxysmal atrial fibrillation (HCC) Atrial fibrillation Hydropneumothorax Other specified forms of effusion, except tuberculous Pre-procedure lab exam Pre-procedural laboratory examination Hydropneumothorax Other specified forms of effusion, except tuberculous Pre-procedure lab exam Pre-procedural laboratory examination documented [facility] Diagnosis Pre-op evaluation- Primary Preoperative examination, unspecified Abdominal aortic aneurysm (AAA) without rupture, unspecified part Primary hypertension Unspecified essential hypertension Mixed hyperlipidemia Cigarette nicotine dependence in remission Personal history of tobacco use, presenting hazards to health Glucose intolerance (impaired glucose tolerance) Impaired glucose tolerance test Prostate cancer (HCC) Malignant neoplasm of prostate Paroxysmal atrial fibrillation (HCC) Atrial fibrillation Emphysematous bleb (HCC)- Primary Emphysematous bleb Chronic obstructive pulmonary disease, unspecified COPD type (HCC) Paroxysmal atrial fibrillation (HCC) Atrial fibrillation Personal history of malignant neoplasm of bronchus and lung Hydropneumothorax Other specified forms of effusion, except tuberculous Pre-procedure lab exam Pre-procedural laboratory examination [facility] Diagnosis Pre-op evaluation- Primary Preoperative examination, unspecified Abdominal aortic aneurysm (AAA) without rupture, unspecified part Primary hypertension Unspecified essential hypertension Mixed hyperlipidemia Cigarette nicotine dependence in remission Personal history of tobacco use, presenting hazards to health Glucose intolerance (impaired glucose tolerance) Impaired glucose tolerance test Prostate cancer (HCC) Malignant neoplasm of prostate Paroxysmal atrial fibrillation (HCC) Atrial fibrillation Chronic obstructive pulmonary disease, unspecified COPD type (HCC)- Primary Malignant neoplasm of lower lobe of right lung (HCC) Paroxysmal atrial fibrillation (HCC) Atrial fibrillation Centrilobular emphysema (HCC) Other emphysema History of prostate cancer Personal history of malignant neoplasm of prostate Former smoker Personal history of tobacco use, presenting hazards to health Hydropneumothorax Other specified forms of effusion, except tuberculous Pre-procedure lab exam Pre-procedural laboratory examination [facility] Diagnosis Pre-op evaluation- Primary Preoperative examination, unspecified Abdominal aortic aneurysm (AAA) without rupture, unspecified part Primary hypertension Unspecified essential hypertension Mixed hyperlipidemia Cigarette nicotine dependence in remission Personal history of tobacco use, presenting hazards to health Glucose intolerance (impaired glucose tolerance) Impaired glucose tolerance test Prostate cancer (HCC) Malignant neoplasm of prostate Paroxysmal atrial fibrillation (HCC) Atrial fibrillation Infrarenal abdominal aortic aneurysm (AAA) without rupture- Primary documented 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* Diagnosis Pre-op evaluation- Primary Preoperative examination, unspecified Abdominal aortic aneurysm (AAA) without rupture, unspecified part Primary hypertension Unspecified essential hypertension Mixed hyperlipidemia Cigarette nicotine dependence in remission Personal history of tobacco use, presenting hazards to health Glucose intolerance (impaired glucose tolerance) Impaired glucose tolerance test Prostate cancer (HCC) Malignant neoplasm of prostate Paroxysmal atrial fibrillation (HCC) Atrial fibrillation Bronchopleural fistula (HCC) Empyema with fistula documented 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* Diagnosis Pre-op evaluation- Primary Preoperative examination, unspecified Abdominal aortic aneurysm (AAA) without rupture, unspecified part Primary hypertension Unspecified essential hypertension Mixed hyperlipidemia Cigarette nicotine dependence in remission Personal history of tobacco use, presenting hazards to health Glucose intolerance (impaired glucose tolerance) Impaired glucose tolerance test Prostate cancer (HCC) Malignant neoplasm of prostate Paroxysmal atrial fibrillation (HCC) Atrial fibrillation Other pneumothorax documented in this [facility]* Diagnosis Pre-op evaluation- Primary Preoperative examination, unspecified Abdominal aortic aneurysm (AAA) without rupture, unspecified part Primary hypertension Unspecified essential hypertension Mixed hyperlipidemia Cigarette nicotine dependence in remission Personal history of tobacco use, presenting hazards to health Glucose intolerance (impaired glucose tolerance) Impaired glucose tolerance test Prostate cancer (HCC) Malignant neoplasm of prostate Paroxysmal atrial fibrillation (HCC) Atrial fibrillation Bronchopleural fistula (HCC) Empyema with fistula Cancer of overlapping sites of right lung (HCC) documented [facility]* Diagnosis Pre-op evaluation- Primary Preoperative examination, unspecified Abdominal aortic aneurysm (AAA) without rupture, unspecified part Primary hypertension Unspecified essential hypertension Mixed hyperlipidemia Cigarette nicotine dependence in remission Personal history of tobacco use, presenting hazards to health Glucose intolerance (impaired glucose tolerance) Impaired glucose tolerance test Prostate cancer (HCC) Malignant neoplasm of prostate Paroxysmal atrial fibrillation (HCC) Atrial fibrillation Neoplasm of lung- Primary Neoplasm of unspecified nature of respiratory system Bronchopleural fistula (HCC) Empyema with fistula Malignant neoplasm of lower lobe of right lung (HCC) [facility] Diagnosis Pre-op evaluation- Primary Preoperative examination, unspecified Abdominal aortic aneurysm (AAA) without rupture, unspecified part Primary hypertension Unspecified essential hypertension Mixed hyperlipidemia Cigarette nicotine dependence in remission Personal history of tobacco use, presenting hazards to health Glucose intolerance (impaired glucose tolerance) Impaired glucose tolerance test Prostate cancer (HCC) Malignant neoplasm of prostate Paroxysmal atrial fibrillation (HCC) Atrial fibrillation Malignant neoplasm of upper lobe of right lung (HCC)- Primary Malignant neoplasm of upper lobe, bronchus or lung documented in this encounter [facility] note* Diagnosis Pre-op evaluation- Primary Preoperative examination, unspecified Abdominal aortic aneurysm (AAA) without rupture, unspecified part Primary hypertension Unspecified essential hypertension Mixed hyperlipidemia Cigarette nicotine dependence in remission Personal history of tobacco use, presenting hazards to health Glucose intolerance (impaired glucose tolerance) Impaired glucose tolerance test Prostate cancer (HCC) Malignant neoplasm of prostate Paroxysmal atrial fibrillation (HCC) Atrial fibrillation Malignant neoplasm of unspecified part of unspecified bronchus or lung (HCC)- Primary Squamous cell carcinoma of lung, unspecified laterality (HCC) documented in this encounter [facility] note* Diagnosis Pre-op evaluation- Primary Preoperative examination, unspecified Abdominal aortic aneurysm (AAA) without rupture, unspecified part Primary hypertension Unspecified essential hypertension Mixed hyperlipidemia Cigarette nicotine dependence in remission Personal history of tobacco use, presenting hazards to health Glucose intolerance (impaired glucose tolerance) Impaired glucose tolerance test Prostate cancer (HCC) Malignant neoplasm of prostate Paroxysmal atrial fibrillation (HCC) Atrial fibrillation Essential hypertension- Primary Unspecified essential hypertension Mixed hyperlipidemia Prostate cancer (HCC) Malignant neoplasm of prostate Malignant neoplasm of lower lobe of right lung (HCC) Tachycardia Tachycardia, unspecified documented in this encounter [facility] note* Diagnosis Pre-op evaluation- Primary Preoperative examination, unspecified Abdominal aortic aneurysm (AAA) without rupture, unspecified part Primary hypertension Unspecified essential hypertension Mixed hyperlipidemia Cigarette nicotine dependence in remission Personal history of tobacco use, presenting hazards to health Glucose intolerance (impaired glucose tolerance) Impaired glucose tolerance test Prostate cancer (HCC) Malignant neoplasm of prostate Paroxysmal atrial fibrillation (HCC) Atrial fibrillation Paroxysmal atrial fibrillation (HCC)- Primary Atrial fibrillation Typical atrial flutter (HCC) Atrial flutter Cavitary lesion of lung Other diseases of lung, not elsewhere classified Acute cough Stage 1 mild COPD by GOLD classification (HCC) Mixed hyperlipidemia Infrarenal abdominal aortic aneurysm (AAA) without rupture Prostate cancer (HCC) Malignant neoplasm of prostate Cancer of lower lobe of right lung (HCC) Cavitary lesion of lung Other diseases of lung, not elsewhere classified Leukocytosis Leukocytosis, unspecified Anemia Anemia, unspecified Hypocalcemia Hypomagnesemia Disorders of magnesium metabolism Elevated troponin Other abnormal blood chemistry Lung abscess (HCC) Abscess of lung Sepsis (HCC) Malignant neoplasm of upper lobe of right lung (HCC) Malignant neoplasm of upper lobe, bronchus or lung S/P lobectomy of lung Other postprocedural status Thoracic lymphadenopathy Enlargement of lymph nodes Ex-smoker Personal history of tobacco use, presenting hazards to [facility] Squamous cell carcinoma of lung, unspecified laterality (HCC)- Primary documented in this encounter [facility] for referral (narrative)* Diagnostic Procedure Only (Routine) - Authorized Specialty Diagnoses / Procedures Referred By Contac t Referred To Contact US IMAGING Diagnoses Abdominal aortic aneurysm (AAA) without rupture, unspecified part Procedures US DOPPLER AORTA DUP-SCAN ARTL LOLA ABDL/PEL/SCROT&/RPR ORGN LMT Praful Su MD [facility] [place] [address] Us Imaging Referral ID Status Reason Start Date Expiration Date Visits Requested Visits Authorized [id number] Authorized Auto-Generat ed Referral 03/07/2022 04/06/2023 1 1 * Diagnostic Procedure Only (Routine) - Pending Review Specialty Diagnoses / Procedures [facility] Diagnoses Abdominal aortic aneurysm (AAA) without rupture, unspecified part Procedures US ABD AORTA US RETROPERITONEAL REAL TIME W/IMAGE LIMITED Praful Su MD [address] [place] [address] Us Imaging Referral ID Status Reason Start Date Expiration Date Visits Requested Visits Authorized [id number] Pending Review Auto-Generat ed Referral 03/07/2022 04/06/2023 1 1 [facility] for referral (narrative)* Outpatient Procedure (Routine) - Authorized Specialty Diagnoses / Procedures Referred By Contac t Referred To [facility] Diagnoses Abdominal aortic aneurysm (AAA) without rupture, unspecified part Procedures US ABD AORTA COMPLETE VAS LAB DUP-SCAN AORTA IVC ILIAC VASCL/BPGS COMPLETE Pari Ruggiero APRN.CNP [address] [place] [address] [facility] [address] [address] Referral ID Status Reason Start Date Expiration Date Visits Requested Visits Authorized [id number] Authorized Auto-Generat ed Referral 03/16/2022 03/16/2023 1 1 [facility] for referral (narrative)* Outpatient Procedure (Routine) - Authorized Specialty Diagnoses / Procedures Referred By Contac t Referred To Contact [facility] Diagnoses Abdominal aortic aneurysm (AAA) without rupture, unspecified part Procedures US ABD AORTA COMPLETE VAS LAB DUP-SCAN AORTA IVC ILIAC VASCL/BPGS COMPLETE Navid Roberts MD [address] [place] [address] [facility] [address] [address] Referral ID Status Reason Start Date Expiration Date Visits Requested Visits Authorized [id number] Authorized Auto-Generat ed Referral 03/30/2022 03/30/2023 1 1 [facility] for referral (narrative)* Outpatient Procedure (Routine) - Pending Review Specialty Diagnoses / Procedures Referred By Contac t Referred To Contact [facility] Diagnoses Infrarenal abdominal aortic aneurysm (AAA) without rupture (HCC) Procedures US ABD AORTA COMPLETE VAS LAB DUP-SCAN AORTA IVC ILIAC VASCL/BPGS COMPLETE Navid Roberts MD [address] [place] [address] [facility] [address] [address] Referral ID Status Reason Start Date Expiration Date Visits Requested Visits Authorized [id number] Pending Review Auto-Generat ed Referral 04/15/2023 10/13/2023 1 1 [facility] for referral (narrative)* Diagnostic Procedure Only (Routine) - Pending Review Specialty Diagnoses / Procedures Referred By Annia hill Referred To Contact [facility] Diagnoses Lung nodules Procedures NM PET/CT SKULL-THIGH INITIAL PET IMAGING CT ATTENUATION SKULL BASE MID-THIGH Thad Garrett MD [address] [place] [address] [facility] [address] [place] [address] Referral ID Status Reason Start Date Expiration Date Visits Requested Visits Authorized [id number] Pending Review Auto-Generat ed Referral 06/08/2023 07/07/2024 1 1 * Outpatient Procedure (Routine) - Authorized Specialty Diagnoses / Procedures Referred By Annia hill Referred To Contact [facility] Diagnoses SOB (shortness of breath) Procedures LUNG DIFFUSION CAPACITY (DLCO) DIFFUSING CAPACITY Thad Garrett MD [address] [place] [address] [facility] [address] [place], [place] [id number] Referral ID Status Reason Start Date Expiration Date Visits Requested Visits Authorized [id number] Authorized Auto-Generat ed Referral 06/08/2023 07/07/2024 1 1 * Outpatient Procedure (Routine) - Authorized Specialty Diagnoses / Procedures Referred By Annia hill Referred To [facility] Diagnoses SOB (shortness of breath) Procedures SPIROMETRY WITH DILATOR IF OBSTRUCTED BRNCDILAT RSPSE SPMTRY PRE&POST-BRNCDILAT ADMN Thad Garrett MD [address] [place] [address] [facility] [address] [place], [place] [id number] Referral ID Status Reason Start Date Expiration Date Visits Requested Visits Authorized [id number] Authorized Auto-Generat ed Referral 06/08/2023 07/07/2024 1 1 [facility] for referral (narrative)* Outpatient Procedure (Routine) - Pending Review Specialty Diagnoses / Procedures Referred By Contac t Referred To Contact [facility] Diagnoses Lung mass Procedures ECG COMPLETE ECG ROUTINE ECG W/LEAST 12 LDS W/I&R Arcadio Hodgson MD [address] [place] [address] [address] Referral ID Status Reason Start Date Expiration Date Visits Requested Visits Authorized [id number] Pending Review Auto-Generat ed Referral 06/12/2023 06/11/2024 1 1 [facility] for referral (narrative)* Outpatient Procedure (Routine) - Authorized Specialty Diagnoses / Procedures Referred By Contac t Referred To Contact [facility] Diagnoses Abdominal aortic aneurysm (AAA) without rupture, unspecified part (HCC) Procedures US ABD AORTA COMPLETE VAS LAB DUP-SCAN AORTA IVC ILIAC VASCL/BPGS COMPLETE Phuong Beasley, INTERNATIONAL MARKETING EXECUTIVE.SUPERVISOR STRIPPING [address] [place] [address] [address] Referral ID Status Reason Start Date Expiration Date Visits Requested Visits Authorized [id number] Authorized Auto-Generat ed Referral 06/06/2023 06/05/2024 1 1 Electronically signed by Phuong Beasley INTERNATIONAL MARKETING EXECUTIVE.SUPERVISOR STRIPPING at 06/06/2023 11:17 AM EDT [facility] for referral (narrative)* Outpatient Procedure (Routine) - Pending Review Specialty Diagnoses / Procedures Referred By Contac t Referred To Contact [facility] Diagnoses Preoperative cardiovascular examination Primary hypertension Procedures ECHO ECHO TTHRC R-T 2D W/WOM-MODE COMPL SPEC&[place] [address] [place] [address] [facility] [address] [place] [address] Referral ID Status Reason Start Date Expiration Date Visits Requested Visits Authorized [id number] Pending Review Auto-Generat ed Referral 09/14/2023 09/13/2024 1 1 [facility] for referral (narrative)* Outpatient Procedure (Routine) - Authorized Specialty Diagnoses / Procedures Referred By Contac t Referred To Contact [facility] Diagnoses Malignant neoplasm of lower lobe of right lung (HCC) Lung nodule Procedures SIX MINUTE WALK CARDIOPULMONARY EXERCISE STRESS Paula Lizama MD, PhD [address] [employer] [address] [place] [address] [facility] [address] [place] [address] Referral ID Status Reason Start Date Expiration Date Visits Requested Visits Authorized [id number] Authorized Auto-Generat ed Referral 10/11/2023 11/08/2024 1 1 [facility] for referral (narrative)* Outpatient Procedure (Urgent) - New Request Specialty Diagnoses / Procedures Referred By Contac t Referred To Contact [facility] Diagnoses Malignant neoplasm of lower lobe of right lung (HCC) Pre-procedure lab exam Procedures ECG COMPLETE ECG ROUTINE ECG W/LEAST 12 LDS W/I&R Paula Lizama MD, PhD [address] [place] [address] [facility] [address] [place] [address] Referral ID Status Reason Start Date Expiration Date Visits Requested Visits Authorized [id number] New Request Auto-Generat ed Referral 10/27/2023 10/26/2024 1 1 * Diagnostic Procedure Only (Routine) - New Request Specialty Diagnoses / Procedures Referred By Contac t Referred To Contact [facility] Diagnoses Malignant neoplasm of lower lobe of right lung (HCC) Pre-procedure lab exam Encounter for other preprocedural examination Procedures NM CARDIAC PERF STRESS/EXERCISE MYOCARDIAL SPECT MULTIPLE STUDIES Paula Lizama MD, PhD [address] [facility] [address] [place] [address] [facility] [address] [place] [id number] Referral ID Status Reason Start Date Expiration Date Visits Requested Visits Authorized [id number] New Request Auto-Generat ed Referral 10/27/2023 11/25/2024 1 1 [facility] for referral (narrative)* Outpatient Procedure (Routine) - Authorized Specialty Diagnoses / Procedures Referred By Annia hill Referred To Contact [facility] Diagnoses Infrarenal abdominal aortic aneurysm (AAA) without rupture (HCC) Procedures US ABD AORTA COMPLETE VAS LAB DUP-SCAN AORTA IVC ILIAC VASCL/BPGS COMPLETE Malia Egan DO [address] [place] [address] [facility] [address] [address] Referral ID Status Reason Start Date Expiration Date Visits Requested Visits Authorized [id number] Authorized Auto-Generat ed Referral 06/18/2024 12/18/2024 1 1 [facility] for referral (narrative)* Outpatient Procedure (Routine) - Authorized Specialty Diagnoses / Procedures Referred By Contdivya t Referred To Contact [facility] Diagnoses Chronic obstructive pulmonary disease, unspecified COPD type ([facility]) Procedures SPIROMETRY WITH DILATOR IF OBSTRUCTED BRNCDILAT RSPSE SPMTRY PRE&POST-BRNCDILAT ADMN Romina Kahn, INTERNATIONAL MARKETING EXECUTIVE.SUPERVISOR STRIPPING [address] [place] [address] [facility] [address] [place] [address] Referral ID Status Reason Start Date Expiration Date Visits Requested Visits Authorized [id number] Authorized Auto-Generat ed Referral 02/06/2025 1 1 * Outpatient Procedure (Routine) - Authorized Specialty Diagnoses / Procedures Referred By Contac t Referred To Contact [facility] Diagnoses Chronic obstructive pulmonary disease, unspecified COPD type (HCC) Procedures LUNG DIFFUSION CAPACITY (DLCO) DIFFUSING CAPACITY Romina Kahn APRN.CNP [address] [place] [address] [facility] [address] [place] [address] Referral ID Status Reason Start Date Expiration Date Visits Requested Visits Authorized [id number] Authorized Auto-Generat ed Referral 02/06/2025 1 1 [facility] for visit Narrative* Diagnostic Procedure Only (Routine) - Authorized Specialty Diagnoses / Procedures Referred By Contac t Referred To Contact US IMAGING Diagnoses Abdominal aortic aneurysm (AAA) without rupture, unspecified part Procedures US DOPPLER AORTA DUP-SCAN ARTL LOLA ABDL/PEL/SCROT&/RPR ORGN LMT Praful Su MD [address] [place] [address] Us Imaging Referral ID Status Reason Start Date Expiration Date Visits Requested Visits Authorized [id number] Authorized Auto-Generat ed Referral 03/07/2022 04/06/2023 1 1 [facility] for visit Narrative* Outpatient Procedure (Routine) - Closed Specialty Diagnoses / Procedures Referred By Contac t Referred To Contact [facility] Diagnoses Lung mass Procedures ECG COMPLETE ECG ROUTINE ECG W/LEAST 12 LDS W/I&R Arcadio Hodgson MD [address] [place] [address] [facility] [address] [place] [id number] Referral ID Status Reason Start Date Expiration Date V isits Requested Visits Authorized [id number] Closed Auto-Generate d Referral 06/12/2023 06/11/2024 1 1 [facility] for visit Narrative* Diagnostic Procedure Only (Routine) - Closed Specialty Diagnoses / Procedures Referred By Contdivya t Referred To Contact MOLECULAR & FUNCTIONAL IMAGING Diagnoses Lung nodules Procedures NM PET/CT SKULL-THIGH INITIAL PET IMAGING CT ATTENUATION SKULL BASE MID-THIGH Thad Garrett MD [address] [place] [address] Molecular [facility] Functional [facility] [address] [place] [address] Referral ID Status Reason Start Date Expiration Date V isits Requested Visits Authorized [id number] Closed Auto-Generate d Referral 06/12/2023 07/12/2023 [address] [facility] MRI/CT (Routine) - Closed Specialty Diagnoses / Procedures Referred By Annia hill Referred To Contact CT IMAGING Diagnoses Malignant neoplasm of unspecified part of unspecified bronchus or lung (HCC) Procedures CT CHEST W IVCON DIAGNOSTIC COMPUTED TOMOGRAPHY THORAX W/CONTRAST Kevin Patterson MD [address] [place] [address] Phone: tel: fax: CT IMAGING [id number] Referral ID Status Reason Start Date Expiration Date V isits Requested Visits Authorized [id number] Closed Auto-Generate d Referral 04/25/2024 06/24/2024 [address] [facility] Advance Directives No Advanced Directives Records FoundDocuments on File Type Date Recorded Patient Research Associate Molecular Biology Expl anation Advance Directive(s) 02/22/2017 12:37 PM Advance Directive(s) 04/30/2015 12:05 PM Documents on File Type Date Recorded Patient Research Associate Molecular Biology Expl anation Advance Directive(s) 11/09/2023 2:13 PM Documents on File Type Date Recorded Patient Research Associate Molecular Biology Expl anation Advance Directive(s) 11/09/2023 2:13 PM Date Activated Date Inactivated Comments 05/10/2024 1:36 PM 05/12/2024 5:34 PM Question Answer Comments Full Code Order Discussed With: Patient Date Activated Date Inactivated Comments 05/10/2024 1:36 PM 05/12/2024 5:34 PM Question Answer Comments Full Code Order Discussed With: Patient Date Activated Date Inactivated Comments 10/25/2024 8:12 AM Date Activated Date Inactivated Comments 05/10/2024 1:36 PM 05/12/2024 5:34 PM Question Answer Comments Full Code Order Discussed With: Patient Date Activated Date Inactivated Comments 10/25/2024 8:12 AM 10/29/2024 10:54 AM Date Activated Date Inactivated Comments 05/10/2024 1:36 PM 05/12/2024 5:34 PM Question Answer Comments Full Code Order Discussed With: Patient Date Activated Date Inactivated Comments 10/25/2024 8:12 AM 10/29/2024 10:54 AM Reason for Referral Specialty Diagnoses / Procedures Referred By Contac t Referred To Contact Vascular Surgery Diagnoses Abdominal aortic aneurysm (AAA) without rupture, unspecified part Procedures CONSULT TO VASCULAR SURGERY OFFICE/OUTPATIENT [facility] 60-74 MINUTES Praful Su MD [address] [place] [phone] Referral ID Status Reason Start Date Expiration Date Visits Requested Visits Authorized [id number] Authorized PCP Requested Referral 03/22/2022 03/22/2023 1 1 Specialty Diagnoses / Procedures Referred By Contac t Referred To Contact CT IMAGING Diagnoses Encounter for other preprocedural examination Procedures CTA CHEST (NONGATED) WO/W IVCON CT ANGIOGRAPHY CHEST W/CONTRAST/NONCONTRAST Phuong Beasley J, INTERNATIONAL MARKETING EXECUTIVE.SUPERVISOR STRIPPING [address] [place] [address] [facility] [place] [address] Referral ID Status Reason Start Date Expiration Date Visits Requested Visits Authorized [id number] Pending Review Auto-Generat ed Referral 04/25/2023 05/24/2024 1 1 Specialty Diagnoses / Procedures Referred By Contac t Referred To Contact CT IMAGING Diagnoses Abdominal aortic aneurysm (AAA) without rupture, unspecified part (HCC) Procedures CTA ABD/PEL LOWER EXTREM W IVCON CTA ABDL AORTA&BI ILIOFEM W/CONTRAST&POSTP Phuong Beasley J, INTERNATIONAL MARKETING EXECUTIVE.SUPERVISOR STRIPPING [address] [phone] [facility] [place] [address] Referral ID Status Reason Start Date Expiration Date Visits Requested Visits Authorized [id number] Pending Review Auto-Generat ed Referral 04/25/2023 05/24/2024 1 1 Referral ID Status Reason Start Date Expiration Date V isits Requested Visits Authorized [id number] Closed Auto-Generate d Referral 05/17/2023 06/16/2023 1 1 Specialty Diagnoses / Procedures Referred By Contac t Referred To Contact Pulmonary Disease Diagnoses Lung nodule Procedures CONSULT TO LUNG NODULE CLINIC Phuong Beasley, INTERNATIONAL MARKETING EXECUTIVE.SUPERVISOR STRIPPING [address] [phone] Referral ID Status Reason Start Date Expiration Date Visits Requested Visits Authorized [id number] Ref Not Required PCP Requested Referral 06/01/2023 05/17/2024 1 1 Specialty Diagnoses / Procedures Referred By Contac t Referred To Contact CT IMAGING Diagnoses Lung mass Procedures CT CHEST WO IVCON DIAGNOSTIC COMPUTED TOMOGRAPHY THORAX W/O CNTRST Thad Garrett MD [address] [place] [address] [facility] [place] [address] Referral ID Status Reason Start Date Expiration Date Visits Requested Visits Authorized [id number] Pending Review Auto-Generat ed Referral 08/28/2023 08/26/2024 1 1 Specialty Diagnoses / Procedures Referred By Contac t Referred To Contact Cardiology Diagnoses Preoperative clearance Procedures CONSULT TO CARDIOLOGY OFFICE/OUTPATIENT [facility] 60 MINUTES Thad Garrett MD [address] [place] [address] Referral ID Status Reason Start Date Expiration Date Visits Requested Visits Authorized [id number] Authorized PCP Requested Referral 09/01/2023 08/31/2024 1 1 Specialty Diagnoses / Procedures Referred By Contac t Referred To Contact Oncology Diagnoses Squamous cell carcinoma of lung, unspecified laterality (HCC) Procedures CONSULT TO ONCOLOGY OFFICE/OUTPATIENT [facility] 60 MINUTES Thad Garrett MD [address] [place] [address] Referral ID Status Reason Start Date Expiration Date Visits Requested Visits Authorized [id number] Authorized PCP Requested Referral 09/22/2023 09/21/2024 1 1 Specialty Diagnoses / Procedures Referred By Contac t Referred To Contact MR IMAGING Diagnoses Squamous cell carcinoma of lung, unspecified laterality (HCC) Malignant neoplasm of lung, unspecified laterality, unspecified part of lung (HCC) Procedures MRI BRAIN WO/W IVCON MRI BRAIN BRAIN STEM W/O W/CONTRAST MATERIAL Kevin Patterson MD [address] [place] [address] [facility] [place] [address] Referral ID Status Reason Start Date Expiration Date Visits Requested Visits Authorized [id number] New Request Auto-Generat ed Referral 10/03/2023 11/01/2024 1 1 Specialty Diagnoses / Procedures Referred By Contac t Referred To Contact Cardiothoracic Surgery Diagnoses Squamous cell carcinoma of lung, unspecified laterality (HCC) Procedures CONSULT TO CARDIOTHORACIC SURGERY Kevin Patterson MD [address] [place] [address] Referral ID Status Reason Start Date Expiration Date Visits Requested Visits Authorized [id number] Ref Not Required PCP Requested Referral 10/10/2023 10/09/2024 1 1 Specialty Diagnoses / Procedures Referred By Contac t Referred To Contact MR IMAGING Diagnoses Malignant neoplasm of lower lobe of right lung (HCC) Procedures MRI BRAIN WO/W IVCON MRI BRAIN BRAIN STEM W/O W/CONTRAST MATERIAL Paula Lizama MD, PhD [address] [place] [address] [address] [place] [address] [facility] [place] [address] Referral ID Status Reason Start Date Expiration Date V isits Requested Visits Authorized [id number] Closed Auto-Generate d Referral 11/07/2023 01/07/2024 1 1 Specialty Diagnoses / Procedures Referred By Contac t Referred To Contact CT IMAGING Diagnoses Squamous cell carcinoma of lung, unspecified laterality (HCC) Procedures CT CHEST WO IVCON DIAGNOSTIC COMPUTED TOMOGRAPHY THORAX W/O CNTRST Kevin Patterson MD [address] [place] [address] [facility] [place] [address] Referral ID Status Reason Start Date Expiration Date Visits Requested Visits Authorized [id number] Pending Review Auto-Generat ed Referral 11/29/2023 12/28/2024 1 1 Specialty Diagnoses / Procedures Referred By Contac t Referred To Contact Radiation Oncology Diagnoses Malignant neoplasm of unspecified part of unspecified bronchus or lung (HCC) Procedures RAD/ONC CONSULT OFFICE/OUTPATIENT [facility] 60 MINUTES Kevin Patterson MD [address] [place] [address] Referral ID Status Reason Start Date Expiration Date Visits Requested Visits Authorized [id number] Authorized PCP Requested Referral 4 12/18/2024 1 1 Specialty Diagnoses / Procedures Referred By Contac t Referred To Contact CT IMAGING Diagnoses Malignant neoplasm of unspecified part of unspecified bronchus or lung (HCC) Procedures CT CHEST W IVCON DIAGNOSTIC COMPUTED TOMOGRAPHY THORAX W/CONTRAST Kevin Patterson MD [address] [place] [address] [place] [address] Referral ID Status Reason Start Date Expiration Date Visits Requested Visits Authorized [id number] New Request Auto-Generat ed Referral 4 01/17/2025 1 1 Summary Purpose Family History No Family History Records FoundNo Family History Records FoundNo Family History Records FoundNo Family History Records FoundNo Family History Records Found Additional Source Comments Source Comments (unrecognize d section and content) In the event this informatio n is protected by the Federal Confidentiality of Alcohol and Drug Abuse Patient Records regulations: The Federal rules restrict any use of the information to criminally investigate or prosecute any alcohol or drug abuse patient.[facility] the event this information is protected by the Federal Confidentiality of Alcohol and Drug Abuse Patient Records regulations: The Federal rules restrict any use of the information to criminally investigate or prosecute any alcohol or drug abuse patient.[facility] the event this information is protected by the Federal Confidentiality of Alcohol and Drug Abuse Patient Records regulations: The Federal rules restrict any use of the information to criminally investigate or prosecute any alcohol or drug abuse patient.[facility] the event this information is protected by the Federal Confidentiality of Alcohol and Drug Abuse Patient Records regulations: The Federal rules restrict any use of the information to criminally investigate or prosecute any alcohol or drug abuse patient.[facility] the event this information is protected by the Federal Confidentiality of Alcohol and Drug Abuse Patient Records regulations: The Federal rules restrict any use of the information to criminally investigate or prosecute any alcohol or drug abuse patient.[facility] the event this information is protected by the Federal Confidentiality of Alcohol and Drug Abuse Patient Records regulations: The Federal rules restrict any use of the information to criminally investigate or prosecute any alcohol or drug abuse patient.[facility] the event this information is protected by the Federal Confidentiality of Alcohol and Drug Abuse Patient Records regulations: The Federal rules restrict any use of the information to criminally investigate or prosecute any alcohol or drug abuse patient.[facility] the event this information is protected by the Federal Confidentiality of Alcohol and Drug Abuse Patient Records regulations: The Federal rules restrict any use of the information to criminally investigate or prosecute any alcohol or drug abuse patient.[facility] the event this information is protected by the Federal Confidentiality of Alcohol and Drug Abuse Patient Records regulations: The Federal rules restrict any use of the information to criminally investigate or prosecute any alcohol or drug abuse patient.[facility]In the event this information is protected by the Federal Confidentiality of Alcohol and Drug Abuse Patient Records regulations: The Federal rules restrict any use of the information to criminally investigate or prosecute any alcohol or drug abuse patient.[facility]In the event this information is protected by the Federal Confidentiality of Alcohol and Drug Abuse Patient Records regulations: The Federal rules restrict any use of the information to criminally investigate or prosecute any alcohol or drug abuse patient.[facility] Hospital[facility] the event this information is protected by the Federal Confidentiality of Alcohol and Drug Abuse Patient Records regulations: The Federal rules restrict any use of the information to criminally investigate or prosecute any alcohol or drug abuse patient.[facility] HospitalIn the event this information is protected by the Federal Confidentiality of Alcohol and Drug Abuse Patient Records regulations: The Federal rules restrict any use of the information to criminally investigate or prosecute any alcohol or drug abuse patient.[facility] HospitalIn the event this information is protected by the Federal Confidentiality of Alcohol and Drug Abuse Patient Records regulations: The Federal rules restrict any use of the information to criminally investigate or prosecute any alcohol or drug abuse patient.[facility] HospitalIn the event this information is protected by the Federal Confidentiality of Alcohol and Drug Abuse Patient Records regulations: The Federal rules restrict any use of the information to criminally investigate or prosecute any alcohol or drug abuse patient.[facility]In the event this information is protected by the Federal Confidentiality of Alcohol and Drug Abuse Patient Records regulations: The Federal rules restrict any use of the information to criminally investigate or prosecute any alcohol or drug abuse patient.[facility] HospitalIn the event this information is protected by the Federal Confidentiality of Alcohol and Drug Abuse Patient Records regulations: The Federal rules restrict any use of the information to criminally investigate or prosecute any alcohol or drug abuse patient.[facility] HospitalIn the event this information is protected by the Federal Confidentiality of Alcohol and Drug Abuse Patient Records regulations: The Federal rules restrict any use of the information to criminally investigate or prosecute any alcohol or drug abuse patient.[facility] HospitalIn the event this information is protected by the Federal Confidentiality of Alcohol and Drug Abuse Patient Records regulations: The Federal rules restrict any use of the information to criminally investigate or prosecute any alcohol or drug abuse patient.[facility] HospitalIn the event this information is protected by the Federal Confidentiality of Alcohol and Drug Abuse Patient Records regulations: The Federal rules restrict any use of the information to criminally investigate or prosecute any alcohol or drug abuse patient.[facility] HospitalIn the event this information is protected by the Federal Confidentiality of Alcohol and Drug Abuse Patient Records regulations: The Federal rules restrict any use of the information to criminally investigate or prosecute any alcohol or drug abuse patient.[facility] HospitalIn the event this information is protected by the Federal Confidentiality of Alcohol and Drug Abuse Patient Records regulations: The Federal rules restrict any use of the information to criminally investigate or prosecute any alcohol or drug abuse patient.[facility] HospitalIn the event this information is protected by the Federal Confidentiality of Alcohol and Drug Abuse Patient Records regulations: The Federal rules restrict any use of the information to criminally investigate or prosecute any alcohol or drug abuse patient.[facility] HospitalIn the event this information is protected by the Federal Confidentiality of Alcohol and Drug Abuse Patient Records regulations: The Federal rules restrict any use of the information to criminally investigate or prosecute any alcohol or drug abuse patient.[facility] HospitalIn the event this information is protected by the Federal Confidentiality of Alcohol and Drug Abuse Patient Records regulations: The Federal rules restrict any use of the information to criminally investigate or prosecute any alcohol or drug abuse patient.[facility] HospitalIn the event this information is protected by the Federal Confidentiality of Alcohol and Drug Abuse Patient Records regulations: The Federal rules restrict any use of the information to criminally investigate or prosecute any alcohol or drug abuse patient.[facility] HospitalIn the event this information is protected by the Federal Confidentiality of Alcohol and Drug Abuse Patient Records regulations: The Federal rules restrict any use of the information to criminally investigate or prosecute any alcohol or drug abuse patient.[facility] HospitalIn the event this information is protected by the Federal Confidentiality of Alcohol and Drug Abuse Patient Records regulations: The Federal rules restrict any use of the information to criminally investigate or prosecute any alcohol or drug abuse patient.[facility] HospitalIn the event this information is protected by the Federal Confidentiality of Alcohol and Drug Abuse Patient Records regulations: The Federal rules restrict any use of the information to criminally investigate or prosecute any alcohol or drug abuse patient.[facility] HospitalIn the event this information is protected by the Federal Confidentiality of Alcohol and Drug Abuse Patient Records regulations: The Federal rules restrict any use of the information to criminally investigate or prosecute any alcohol or drug abuse patient.[facility] HospitalIn the event this information is protected by the Federal Confidentiality of Alcohol and Drug Abuse Patient Records regulations: The Federal rules restrict any use of the information to criminally investigate or prosecute any alcohol or drug abuse patient.[facility] HospitalIn the event this information is protected by the Federal Confidentiality of Alcohol and Drug Abuse Patient Records regulations: The Federal rules restrict any use of the information to criminally investigate or prosecute any alcohol or drug abuse patient.[facility] HospitalIn the event this information is protected by the Federal Confidentiality of Alcohol and Drug Abuse Patient Records regulations: The Federal rules restrict any use of the information to criminally investigate or prosecute any alcohol or drug abuse patient.[facility] HospitalIn the event this information is protected by the Federal Confidentiality of Alcohol and Drug Abuse Patient Records regulations: The Federal rules restrict any use of the information to criminally investigate or prosecute any alcohol or drug abuse patient.[facility] HospitalIn the event this information is protected by the Federal Confidentiality of Alcohol and Drug Abuse Patient Records regulations: The Federal rules restrict any use of the information to criminally investigate or prosecute any alcohol or drug abuse patient.[facility] HospitalIn the event this information is protected by the Federal Confidentiality of Alcohol and Drug Abuse Patient Records regulations: The Federal rules restrict any use of the information to criminally investigate or prosecute any alcohol or drug abuse patient.[facility] HospitalIn the event this information is protected by the Federal Confidentiality of Alcohol and Drug Abuse Patient Records regulations: The Federal rules restrict any use of the information to criminally investigate or prosecute any alcohol or drug abuse patient.[facility] HospitalIn the event this information is protected by the Federal Confidentiality of Alcohol and Drug Abuse Patient Records regulations: The Federal rules restrict any use of the information to criminally investigate or prosecute any alcohol or drug abuse patient.[facility] HospitalIn the event this information is protected by the Federal Confidentiality of Alcohol and Drug Abuse Patient Records regulations: The Federal rules restrict any use of the information to criminally investigate or prosecute any alcohol or drug abuse patient.[facility] HospitalIn the event this information is protected by the Federal Confidentiality of Alcohol and Drug Abuse Patient Records regulations: The Federal rules restrict any use of the information to criminally investigate or prosecute any alcohol or drug abuse patient.[facility] HospitalIn the event this information is protected by the Federal Confidentiality of Alcohol and Drug Abuse Patient Records regulations: The Federal rules restrict any use of the information to criminally investigate or prosecute any alcohol or drug abuse patient.[facility] HospitalIn the event this information is protected by the Federal Confidentiality of Alcohol and Drug Abuse Patient Records regulations: The Federal rules restrict any use of the information to criminally investigate or prosecute any alcohol or drug abuse patient.[facility] HospitalIn the event this information is protected by the Federal Confidentiality of Alcohol and Drug Abuse Patient Records regulations: The Federal rules restrict any use of the information to criminally investigate or prosecute any alcohol or drug abuse patient.[facility] HospitalIn the event this information is protected by the Federal Confidentiality of Alcohol and Drug Abuse Patient Records regulations: The Federal rules restrict any use of the information to criminally investigate or prosecute any alcohol or drug abuse patient.[facility] HospitalIn the event this information is protected by the Federal Confidentiality of Alcohol and Drug Abuse Patient Records regulations: The Federal rules restrict any use of the information to criminally investigate or prosecute any alcohol or drug abuse patient.[facility] HospitalIn the event this information is protected by the Federal Confidentiality of Alcohol and Drug Abuse Patient Records regulations: The Federal rules restrict any use of the information to criminally investigate or prosecute any alcohol or drug abuse patient.[facility] HospitalIn the event this information is protected by the Federal Confidentiality of Alcohol and Drug Abuse Patient Records regulations: The Federal rules restrict any use of the information to criminally investigate or prosecute any alcohol or drug abuse patient.[facility] HospitalIn the event this information is protected by the Federal Confidentiality of Alcohol and Drug Abuse Patient Records regulations: The Federal rules restrict any use of the information to criminally investigate or prosecute any alcohol or drug abuse patient.[facility] HospitalIn the event this information is protected by the Federal Confidentiality of Alcohol and Drug Abuse Patient Records regulations: The Federal rules restrict any use of the information to criminally investigate or prosecute any alcohol or drug abuse patient.[facility] HospitalIn the event this information is protected by the Federal Confidentiality of Alcohol and Drug Abuse Patient Records regulations: The Federal rules restrict any use of the information to criminally investigate or prosecute any alcohol or drug abuse patient.[facility] HospitalIn the event this information is protected by the Federal Confidentiality of Alcohol and Drug Abuse Patient Records regulations: The Federal rules restrict any use of the information to criminally investigate or prosecute any alcohol or drug abuse patient.[facility] HospitalIn the event this information is protected by the Federal Confidentiality of Alcohol and Drug Abuse Patient Records regulations: The Federal rules restrict any use of the information to criminally investigate or prosecute any alcohol or drug abuse patient.[facility] HospitalIn the event this information is protected by the Federal Confidentiality of Alcohol and Drug Abuse Patient Records regulations: The Federal rules restrict any use of the information to criminally investigate or prosecute any alcohol or drug abuse patient.[facility] HospitalIn the event this information is protected by the Federal Confidentiality of Alcohol and Drug Abuse Patient Records regulations: The Federal rules restrict any use of the information to criminally investigate or prosecute any alcohol or drug abuse patient.[facility] HospitalIn the event this information is protected by the Federal Confidentiality of Alcohol and Drug Abuse Patient Records regulations: The Federal rules restrict any use of the information to criminally investigate or prosecute any alcohol or drug abuse patient.[facility] HospitalIn the event this information is protected by the Federal Confidentiality of Alcohol and Drug Abuse Patient Records regulations: The Federal rules restrict any use of the information to criminally investigate or prosecute any alcohol or drug abuse patient.[facility] HospitalIn the event this information is protected by the Federal Confidentiality of Alcohol and Drug Abuse Patient Records regulations: The Federal rules restrict any use of the information to criminally investigate or prosecute any alcohol or drug abuse patient.[facility] HospitalIn the event this information is protected by the Federal Confidentiality of Alcohol and Drug Abuse Patient Records regulations: The Federal rules restrict any use of the information to criminally investigate or prosecute any alcohol or drug abuse patient.[facility] HospitalIn the event this information is protected by the Federal Confidentiality of Alcohol and Drug Abuse Patient Records regulations: The Federal rules restrict any use of the information to criminally investigate or prosecute any alcohol or drug abuse patient.[facility] HospitalIn the event this information is protected by the Federal Confidentiality of Alcohol and Drug Abuse Patient Records regulations: The Federal rules restrict any use of the information to criminally investigate or prosecute any alcohol or drug abuse patient.[facility] HospitalIn the event this information is protected by the Federal Confidentiality of Alcohol and Drug Abuse Patient Records regulations: The Federal rules restrict any use of the information to criminally investigate or prosecute any alcohol or drug abuse patient.[facility] HospitalIn the event this information is protected by the Federal Confidentiality of Alcohol and Drug Abuse Patient Records regulations: The Federal rules restrict any use of the information to criminally investigate or prosecute any alcohol or drug abuse patient.[facility] HospitalIn the event this information is protected by the Federal Confidentiality of Alcohol and Drug Abuse Patient Records regulations: The Federal rules restrict any use of the information to criminally investigate or prosecute any alcohol or drug abuse patient.[facility] HospitalIn the event this information is protected by the Federal Confidentiality of Alcohol and Drug Abuse Patient Records regulations: The Federal rules restrict any use of the information to criminally investigate or prosecute any alcohol or drug abuse patient.[facility] HospitalIn the event this information is protected by the Federal Confidentiality of Alcohol and Drug Abuse Patient Records regulations: The Federal rules restrict any use of the information to criminally investigate or prosecute any alcohol or drug abuse patient.[facility] HospitalIn the event this information is protected by the Federal Confidentiality of Alcohol and Drug Abuse Patient Records regulations: The Federal rules restrict any use of the information to criminally investigate or prosecute any alcohol or drug abuse patient.[facility] HospitalIn the event this information is protected by the Federal Confidentiality of Alcohol and Drug Abuse Patient Records regulations: The Federal rules restrict any use of the information to criminally investigate or prosecute any alcohol or drug abuse patient.[facility] HospitalIn the event this information is protected by the Federal Confidentiality of Alcohol and Drug Abuse Patient Records regulations: The Federal rules restrict any use of the information to criminally investigate or prosecute any alcohol or drug abuse patient.[facility] HospitalIn the event this information is protected by the Federal Confidentiality of Alcohol and Drug Abuse Patient Records regulations: The Federal rules restrict any use of the information to criminally investigate or prosecute any alcohol or drug abuse patient.[facility] HospitalIn the event this information is protected by the Federal Confidentiality of Alcohol and Drug Abuse Patient Records regulations: The Federal rules restrict any use of the information to criminally investigate or prosecute any alcohol or drug abuse patient.[facility] HospitalIn the event this information is protected by the Federal Confidentiality of Alcohol and Drug Abuse Patient Records regulations: The Federal rules restrict any use of the information to criminally investigate or prosecute any alcohol or drug abuse patient.[facility] HospitalIn the event this information is protected by the Federal Confidentiality of Alcohol and Drug Abuse Patient Records regulations: The Federal rules restrict any use of the information to criminally investigate or prosecute any alcohol or drug abuse patient.[facility] HospitalIn the event this information is protected by the Federal Confidentiality of Alcohol and Drug Abuse Patient Records regulations: The Federal rules restrict any use of the information to criminally investigate or prosecute any alcohol or drug abuse patient.[facility] HospitalIn the event this information is protected by the Federal Confidentiality of Alcohol and Drug Abuse Patient Records regulations: The Federal rules restrict any use of the information to criminally investigate or prosecute any alcohol or drug abuse patient.[facility] HospitalIn the event this information is protected by the Federal Confidentiality of Alcohol and Drug Abuse Patient Records regulations: The Federal rules restrict any use of the information to criminally investigate or prosecute any alcohol or drug abuse patient.[facility] HospitalIn the event this information is protected by the Federal Confidentiality of Alcohol and Drug Abuse Patient Records regulations: The Federal rules restrict any use of the information to criminally investigate or prosecute any alcohol or drug abuse patient.[facility] HospitalIn the event this information is protected by the Federal Confidentiality of Alcohol and Drug Abuse Patient Records regulations: The Federal rules restrict any use of the information to criminally investigate or prosecute any alcohol or drug abuse patient.[facility] HospitalIn the event this information is protected by the Federal Confidentiality of Alcohol and Drug Abuse Patient Records regulations: The Federal rules restrict any use of the information to criminally investigate or prosecute any alcohol or drug abuse patient.[facility] HospitalIn the event this information is protected by the Federal Confidentiality of Alcohol and Drug Abuse Patient Records regulations: The Federal rules restrict any use of the information to criminally investigate or prosecute any alcohol or drug abuse patient.[facility] HospitalIn the event this information is protected by the Federal Confidentiality of Alcohol and Drug Abuse Patient Records regulations: The Federal rules restrict any use of the information to criminally investigate or prosecute any alcohol or drug abuse patient.[facility] HospitalIn the event this information is protected by the Federal Confidentiality of Alcohol and Drug Abuse Patient Records regulations: The Federal rules restrict any use of the information to criminally investigate or prosecute any alcohol or drug abuse patient.[facility] HospitalIn the event this information is protected by the Federal Confidentiality of Alcohol and Drug Abuse Patient Records regulations: The Federal rules restrict any use of the information to criminally investigate or prosecute any alcohol or drug abuse patient.[facility] HospitalIn the event this information is protected by the Federal Confidentiality of Alcohol and Drug Abuse Patient Records regulations: The Federal rules restrict any use of the information to criminally investigate or prosecute any alcohol or drug abuse patient.[facility] HospitalIn the event this information is protected by the Federal Confidentiality of Alcohol and Drug Abuse Patient Records regulations: The Federal rules restrict any use of the information to criminally investigate or prosecute any alcohol or drug abuse patient.[facility] HospitalIn the event this information is protected by the Federal Confidentiality of Alcohol and Drug Abuse Patient Records regulations: The Federal rules restrict any use of the information to criminally investigate or prosecute any alcohol or drug abuse patient.[facility] HospitalIn the event this information is protected by the Federal Confidentiality of Alcohol and Drug Abuse Patient Records regulations: The Federal rules restrict any use of the information to criminally investigate or prosecute any alcohol or drug abuse patient.[facility] HospitalIn the event this information is protected by the Federal Confidentiality of Alcohol and Drug Abuse Patient Records regulations: The Federal rules restrict any use of the information to criminally investigate or prosecute any alcohol or drug abuse patient.[facility] HospitalIn the event this information is protected by the Federal Confidentiality of Alcohol and Drug Abuse Patient Records regulations: The Federal rules restrict any use of the information to criminally investigate or prosecute any alcohol or drug abuse patient.[facility] HospitalIn the event this information is protected by the Federal Confidentiality of Alcohol and Drug Abuse Patient Records regulations: The Federal rules restrict any use of the information to criminally investigate or prosecute any alcohol or drug abuse patient.[facility] HospitalIn the event this information is protected by the Federal Confidentiality of Alcohol and Drug Abuse Patient Records regulations: The Federal rules restrict any use of the information to criminally investigate or prosecute any alcohol or drug abuse patient.[facility] HospitalIn the event this information is protected by the Federal Confidentiality of Alcohol and Drug Abuse Patient Records regulations: The Federal rules restrict any use of the information to criminally investigate or prosecute any alcohol or drug abuse patient.[facility] HospitalIn the event this information is protected by the Federal Confidentiality of Alcohol and Drug Abuse Patient Records regulations: The Federal rules restrict any use of the information to criminally investigate or prosecute any alcohol or drug abuse patient.[facility] HospitalIn the event this information is protected by the Federal Confidentiality of Alcohol and Drug Abuse Patient Records regulations: The Federal rules restrict any use of the information to criminally investigate or prosecute any alcohol or drug abuse patient.[facility] HospitalIn the event this information is protected by the Federal Confidentiality of Alcohol and Drug Abuse Patient Records regulations: The Federal rules restrict any use of the information to criminally investigate or prosecute any alcohol or drug abuse patient.[facility] HospitalIn the event this information is protected by the Federal Confidentiality of Alcohol and Drug Abuse Patient Records regulations: The Federal rules restrict any use of the information to criminally investigate or prosecute any alcohol or drug abuse patient.[facility] HospitalIn the event this information is protected by the Federal Confidentiality of Alcohol and Drug Abuse Patient Records regulations: The Federal rules restrict any use of the information to criminally investigate or prosecute any alcohol or drug abuse patient.[facility] HospitalIn the event this information is protected by the Federal Confidentiality of Alcohol and Drug Abuse Patient Records regulations: The Federal rules restrict any use of the information to criminally investigate or prosecute any alcohol or drug abuse patient.[facility] HospitalIn the event this information is protected by the Federal Confidentiality of Alcohol and Drug Abuse Patient Records regulations: The Federal rules restrict any use of the information to criminally investigate or prosecute any alcohol or drug abuse patient.[facility] HospitalIn the event this information is protected by the Federal Confidentiality of Alcohol and Drug Abuse Patient Records regulations: The Federal rules restrict any use of the information to criminally investigate or prosecute any alcohol or drug abuse patient.[facility] HospitalIn the event this information is protected by the Federal Confidentiality of Alcohol and Drug Abuse Patient Records regulations: The Federal rules restrict any use of the information to criminally investigate or prosecute any alcohol or drug abuse patient.[facility] HospitalIn the event this information is protected by the Federal Confidentiality of Alcohol and Drug Abuse Patient Records regulations: The Federal rules restrict any use of the information to criminally investigate or prosecute any alcohol or drug abuse patient.[facility] HospitalIn the event this information is protected by the Federal Confidentiality of Alcohol and Drug Abuse Patient Records regulations: The Federal rules restrict any use of the information to criminally investigate or prosecute any alcohol or drug abuse patient.[facility] HospitalIn the event this information is protected by the Federal Confidentiality of Alcohol and Drug Abuse Patient Records regulations: The Federal rules restrict any use of the information to criminally investigate or prosecute any alcohol or drug abuse patient.[facility] HospitalIn the event this information is protected by the Federal Confidentiality of Alcohol and Drug Abuse Patient Records regulations: The Federal rules restrict any use of the information to criminally investigate or prosecute any alcohol or drug abuse patient.[facility] HospitalIn the event this information is protected by the Federal Confidentiality of Alcohol and Drug Abuse Patient Records regulations: The Federal rules restrict any use of the information to criminally investigate or prosecute any alcohol or drug abuse patient.[facility] HospitalIn the event this information is protected by the Federal Confidentiality of Alcohol and Drug Abuse Patient Records regulations: The Federal rules restrict any use of the information to criminally investigate or prosecute any alcohol or drug abuse patient.[facility] HospitalIn the event this information is protected by the Federal Confidentiality of Alcohol and Drug Abuse Patient Records regulations: The Federal rules restrict any use of the information to criminally investigate or prosecute any alcohol or drug abuse patient.[facility] HospitalIn the event this information is protected by the Federal Confidentiality of Alcohol and Drug Abuse Patient Records regulations: The Federal rules restrict any use of the information to criminally investigate or prosecute any alcohol or drug abuse patient.[facility] HospitalIn the event this information is protected by the Federal Confidentiality of Alcohol and Drug Abuse Patient Records regulations: The Federal rules restrict any use of the information to criminally investigate or prosecute any alcohol or drug abuse patient.[facility] HospitalIn the event this information is protected by the Federal Confidentiality of Alcohol and Drug Abuse Patient Records regulations: The Federal rules restrict any use of the information to criminally investigate or prosecute any alcohol or drug abuse patient.[facility] HospitalIn the event this information is protected by the Federal Confidentiality of Alcohol and Drug Abuse Patient Records regulations: The Federal rules restrict any use of the information to criminally investigate or prosecute any alcohol or drug abuse patient.[facility] HospitalIn the event this information is protected by the Federal Confidentiality of Alcohol and Drug Abuse Patient Records regulations: The Federal rules restrict any use of the information to criminally investigate or prosecute any alcohol or drug abuse patient.[facility] HospitalIn the event this information is protected by the Federal Confidentiality of Alcohol and Drug Abuse Patient Records regulations: The Federal rules restrict any use of the information to criminally investigate or prosecute any alcohol or drug abuse patient.[facility] HospitalIn the event this information is protected by the Federal Confidentiality of Alcohol and Drug Abuse Patient Records regulations: The Federal rules restrict any use of the information to criminally investigate or prosecute any alcohol or drug abuse patient.[facility] HospitalIn the event this information is protected by the Federal Confidentiality of Alcohol and Drug Abuse Patient Records regulations: The Federal rules restrict any use of the information to criminally investigate or prosecute any alcohol or drug abuse patient.[facility] HospitalIn the event this information is protected by the Federal Confidentiality of Alcohol and Drug Abuse Patient Records regulations: The Federal rules restrict any use of the information to criminally investigate or prosecute any alcohol or drug abuse patient.[facility] HospitalIn the event this information is protected by the Federal Confidentiality of Alcohol and Drug Abuse Patient Records regulations: The Federal rules restrict any use of the information to criminally investigate or prosecute any alcohol or drug abuse patient.[facility] HospitalIn the event this information is protected by the Federal Confidentiality of Alcohol and Drug Abuse Patient Records regulations: The Federal rules restrict any use of the information to criminally investigate or prosecute any alcohol or drug abuse patient.[facility] HospitalIn the event this information is protected by the Federal Confidentiality of Alcohol and Drug Abuse Patient Records regulations: The Federal rules restrict any use of the information to criminally investigate or prosecute any alcohol or drug abuse patient.[facility] HospitalIn the event this information is protected by the Federal Confidentiality of Alcohol and Drug Abuse Patient Records regulations: The Federal rules restrict any use of the information to criminally investigate or prosecute any alcohol or drug abuse patient.[facility] HospitalIn the event this information is protected by the Federal Confidentiality of Alcohol and Drug Abuse Patient Records regulations: The Federal rules restrict any use of the information to criminally investigate or prosecute any alcohol or drug abuse patient.[facility] HospitalIn the event this information is protected by the Federal Confidentiality of Alcohol and Drug Abuse Patient Records regulations: The Federal rules restrict any use of the information to criminally investigate or prosecute any alcohol or drug abuse patient.[facility] HospitalIn the event this information is protected by the Federal Confidentiality of Alcohol and Drug Abuse Patient Records regulations: The Federal rules restrict any use of the information to criminally investigate or prosecute any alcohol or drug abuse patient.[facility] HospitalIn the event this information is protected by the Federal Confidentiality of Alcohol and Drug Abuse Patient Records regulations: The Federal rules restrict any use of the information to criminally investigate or prosecute any alcohol or drug abuse patient.[facility] HospitalIn the event this information is protected by the Federal Confidentiality of Alcohol and Drug Abuse Patient Records regulations: The Federal rules restrict any use of the information to criminally investigate or prosecute any alcohol or drug abuse patient.[facility] HospitalIn the event this information is protected by the Federal Confidentiality of Alcohol and Drug Abuse Patient Records regulations: The Federal rules restrict any use of the information to criminally investigate or prosecute any alcohol or drug abuse patient.[facility] HospitalIn the event this information is protected by the Federal Confidentiality of Alcohol and Drug Abuse Patient Records regulations: The Federal rules restrict any use of the information to criminally investigate or prosecute any alcohol or drug abuse patient.[facility] HospitalIn the event this information is protected by the Federal Confidentiality of Alcohol and Drug Abuse Patient Records regulations: The Federal rules restrict any use of the information to criminally investigate or prosecute any alcohol or drug abuse patient.[facility] HospitalIn the event this information is protected by the Federal Confidentiality of Alcohol and Drug Abuse Patient Records regulations: The Federal rules restrict any use of the information to criminally investigate or prosecute any alcohol or drug abuse patient.[facility] HospitalIn the event this information is protected by the Federal Confidentiality of Alcohol and Drug Abuse Patient Records regulations: The Federal rules restrict any use of the information to criminally investigate or prosecute any alcohol or drug abuse patient.[facility] HospitalIn the event this information is protected by the Federal Confidentiality of Alcohol and Drug Abuse Patient Records regulations: The Federal rules restrict any use of the information to criminally investigate or prosecute any alcohol or drug abuse patient.[facility] HospitalIn the event this information is protected by the Federal Confidentiality of Alcohol and Drug Abuse Patient Records regulations: The Federal rules restrict any use of the information to criminally investigate or prosecute any alcohol or drug abuse patient.[facility] HospitalIn the event this information is protected by the Federal Confidentiality of Alcohol and Drug Abuse Patient Records regulations: The Federal rules restrict any use of the information to criminally investigate or prosecute any alcohol or drug abuse patient.[facility] HospitalIn the event this information is protected by the Federal Confidentiality of Alcohol and Drug Abuse Patient Records regulations: The Federal rules restrict any use of the information to criminally investigate or prosecute any alcohol or drug abuse patient.[facility] HospitalIn the event this information is protected by the Federal Confidentiality of Alcohol and Drug Abuse Patient Records regulations: The Federal rules restrict any use of the information to criminally investigate or prosecute any alcohol or drug abuse patient.[facility] HospitalIn the event this information is protected by the Federal Confidentiality of Alcohol and Drug Abuse Patient Records regulations: The Federal rules restrict any use of the information to criminally investigate or prosecute any alcohol or drug abuse patient.[facility] HospitalIn the event this information is protected by the Federal Confidentiality of Alcohol and Drug Abuse Patient Records regulations: The Federal rules restrict any use of the information to criminally investigate or prosecute any alcohol or drug abuse patient.[facility] HospitalIn the event this information is protected by the Federal Confidentiality of Alcohol and Drug Abuse Patient Records regulations: The Federal rules restrict any use of the information to criminally investigate or prosecute any alcohol or drug abuse patient.[facility] HospitalIn the event this information is protected by the Federal Confidentiality of Alcohol and Drug Abuse Patient Records regulations: The Federal rules restrict any use of the information to criminally investigate or prosecute any alcohol or drug abuse patient.[facility] Reason for Visit (unrecogniz ed section and content) Reason Comments Follow Up Lung Cancer Specialty Diagnoses / Procedures Referred By Contdivya t Referred To Contact Oncology Diagnoses Squamous cell carcinoma of lung, unspecified laterality (HCC) Procedures CONSULT TO ONCOLOGY OFFICE/OUTPATIENT [facility] 60 MINUTES Thad Garrett MD [facility] [address] Referral ID Status Reason Start Date Expiration Date V isits Requested Visits Authorized [id number] Closed PCP Requested Referral 09/22/2023 09/21/2024 1 1 Reason Comments Results Reason Onset Date Comments Refill Request 06/03/2021 Reason Comments Established Patient Follow Up Reason Comments Results blood test Reason Comments Patient Question Reason Onset Date Comments Population Health Navigation Outreach 11/25/2021 [employer] care gaps Reason Comments Appointment Reason Onset Date Comments Refill Request 02/07/2022 Reason Comments Follow Up Reason Comments Orders Reason Comments Results Reason Comments New Patient Specialty Diagnoses / Procedures Referred By Contac t Referred To Contact Vascular Surgery Diagnoses Abdominal aortic aneurysm (AAA) without rupture, unspecified part Procedures CONSULT TO VASCULAR SURGERY OFFICE/OUTPATIENT NEW HIGH MDM 60-74 MINUTES Praful Su MD [address] [phone] Referral ID Status Reason Start Date Expiration Date V isits Requested Visits Authorized [id number] Closed PCP Requested Referral 03/22/2022 03/22/2023 1 1 Reason Comments Prostate Cancer Reason Onset Date Comments Refill Request 05/30/2022 Reason Onset Date Comments Refill Request 08/29/2022 Reason Comments Follow Up Review results - US Abd Aorta today @ 9am6 month follow up Reason Comments Follow Up Specialty Diagnoses / Procedures Referred By Contac t Referred To Contact CT IMAGING Diagnoses Abdominal aortic aneurysm (AAA) without rupture, unspecified part (HCC) Procedures CTA ABD/PEL LOWER EXTREM W IVCON CTA ABDL AORTA&BI ILIOFEM W/CONTRAST&POSTP RamosPhuong yo J, INTERNATIONAL MARKETING EXECUTIVE.SUPERVISOR STRIPPING [phone] [facility] [place] [address] Referral ID Status Reason Start Date Expiration Date V isits Requested Visits Authorized [id number] Closed Auto-Generate d Referral 05/17/2023 06/16/2023 1 1 Specialty Diagnoses / Procedures Referred By Contac t Referred To Contact CT IMAGING Diagnoses Encounter for other preprocedural examination Procedures CTA CHEST (NONGATED) WO/W IVCON CT ANGIOGRAPHY CHEST W/CONTRAST/NONCONTRAST Phuong Beasley J, INTERNATIONAL MARKETING EXECUTIVE.SUPERVISOR STRIPPING [phone] [facility] [place] [address] Referral ID Status Reason Start Date Expiration Date V isits Requested Visits Authorized [id number] Closed Auto-Generate d Referral 05/17/2023 06/16/2023 1 1 Reason Comments Refill Request Reason Comments Consult New patient- Lung No dule Reason Comments Bronchoscopy Scheduling Reason Comments Radiology NM Specialty Diagnoses / Procedures Referred By Tayoac t Referred To Contact Radiology / RADIO PET CT MOBILE DUCOR Diagnoses Lung nodules [R91.8] Procedures INJECTION PET CT Thad Garrett MD [address] [place] [address] [facility] [address] [place] [address] Referral ID Status Reason Start Date Expiration Date Visits Re quested Visits Authorized [id number] Closed 06/19/2023 09/17/2023 1 1 Reason Comments Results Post Bronchoscopy no te Reason Comments Follow Up CTA- 05/17/23 Reason Comments Spirometry Specialty Diagnoses / Procedures Referred By Annia t Referred To Contact [facility] Diagnoses SOB (shortness of breath) Procedures SPIROMETRY WITH DILATOR IF OBSTRUCTED BRNCDILAT RSPSE SPMTRY PRE&POST-BRNCDILAT ADMN Thad Garrett MD [address] [place] [address] [facility] [address] [place], [place] [id number] Referral ID Status Reason Start Date Expiration Date V isits Requested Visits Authorized [id number] Closed Auto-Generate d Referral 06/08/2023 07/07/2024 1 1 Specialty Diagnoses / Procedures Referred By Tayoac t Referred To Contact [facility] Diagnoses SOB (shortness of breath) Procedures LUNG DIFFUSION CAPACITY (DLCO) DIFFUSING CAPACITY Thad Garrett MD [address] [place] [address] [facility] [address] [place] [address] Referral ID Status Reason Start Date Expiration Date V isits Requested Visits Authorized [id number] Closed Auto-Generate d Referral 06/08/2023 07/07/2024 1 1 Reason Comments Test Results Reason Comments Med Change Request Specialty Diagnoses / Procedures Referred By Tayoac t Referred To Contact CT IMAGING Diagnoses Lung mass Procedures CT CHEST WO IVCON DIAGNOSTIC COMPUTED TOMOGRAPHY THORAX W/O CNTRST Thad Garrett MD [address] 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 (HCC) Lung nodule Procedures SIX MINUTE WALK CARDIOPULMONARY EXERCISE STRESS Paula Lizama MD, PhD [address] [place] [address] [facility] [address] [place], [place] [address] [phone] Referral ID Status Reason Start Date Expiration Date V isits Requested Visits Authorized [id number] Closed Auto-Generate d Referral 10/11/2023 11/08/2024 1 1 Reason Comments Consult Reason Comments Schedule Surgery Robotic right lower lobectomy C=3 Reason Comments Pre-Op Exam Reason Comments Radio Main J1 Reason Comments Radiology NM Specialty Diagnoses / Procedures Referred By Contac t Referred To Contact MOLECULAR & FUNCTIONAL IMAGING Diagnoses Malignant neoplasm of lower lobe of right lung (HCC) Pre-procedure lab exam Encounter for other preprocedural examination Procedures NM CARDIAC PERF STRESS/EXERCISE MYOCARDIAL SPECT MULTIPLE STUDIES Paula Lizama MD, PhD [address] [place], [place] [id number] Molecular & Functional Imaging [address] [place] [address] Referral ID Status Reason Start Date Expiration Date V isits Requested Visits Authorized [id number] Closed Auto-Generate d Referral 11/09/2023 01/09/2024 1 1 Reason Comments Radiology MRI Specialty Diagnoses / Procedures Referred By Contac t Referred To Contact MR IMAGING Diagnoses Malignant neoplasm of lower lobe of right lung (HCC) Procedures MRI BRAIN WO/W IVCON MRI BRAIN BRAIN STEM W/O W/CONTRAST MATERIAL Paula Lizama MD, PhD [address] [place] [address] [facility] [place] [address] Referral ID Status Reason Start Date Expiration Date V isits Requested Visits Authorized [id number] Closed Auto-Generate d Referral 11/07/2023 01/07/2024 1 1 Reason Comments Research IRB [id number] Reason Onset Date Comments Transition Of Care 11/20/2023 [facility] 11/19/2023 - Initial outreach Reason Comments Follow Up Phone Call RC follow up call f irst attempt. Reason Comments Post-Op Visit Specialty Diagnoses / Procedures Referred By Annia t Referred To Contact CT IMAGING Diagnoses Squamous cell carcinoma of lung, unspecified laterality (HCC) Procedures CT CHEST WO IVCON DIAGNOSTIC COMPUTED TOMOGRAPHY THORAX W/O CNTRST Kevin Patterson MD [address] [place] [address] Ct [facility] [place] [address] Referral ID Status Reason Start Date Expiration Date V isits Requested Visits Authorized [id number] Closed Auto-Generate d Referral 12/09/2023 03/10/2024 1 1 Reason Comments Follow Up Lung Cancer Reason Comments Appointment New Patient Consult with Reason Comments Appointment Orders Consult Reason Comments Follow Up AAA Reason Comments Follow Up Prostate Cancer Reason Comments Post-Op Visit Specialty Diagnoses / Procedures Referred By Annia hill Referred To Contact Radiation Oncology Diagnoses Malignant neoplasm of unspecified part of unspecified bronchus or lung (HCC) Procedures RAD/ONC CONSULT OFFICE/OUTPATIENT [facility] 60 MINUTES Kevin Patterson MD [address] [place] [address] Referral ID Status Reason Start Date Expiration Date V isits Requested Visits Authorized [id number] Closed PCP Requested Referral 12/19/2023 12/18/2024 1 1 Reason Comments Radio Gen RMP Radiology Service Pr ogress NotePATIENT NAME: Stevie SanchezMRN: [id number] OF SERVICE: February 01, 2024TIME: 12:36 PMPATIENT IDENTITY VERIFICATION COMPLETED USING TWO (2) IDENTIFIERS: Name and Date of confirmed by patient verbally.FALL SCREENING: Has the patient had 2 falls in the last year or 1 fall with injury or currently using an Ambulatory Assistive Device (Walker, Cane, Wheelchair, Crutches, etc.)? NoPATIENT GENDER DATA: MalePATIENT RELEVANT IMPLANT DATA REVIEWED: Reason Onset Date Comments ACM SOLE RN 02/02/2024 Chart Review Sole PriorityEmergency Department Utilization Population Health Navigation Outreach 02/02/2024 [facility] ED follow up Reason Onset Date Comments Population Health Navigation Outreach 02/29/2024 Russ Vela Reason Comments Lung Cancer Reason Comments Opened In Error Specialty Diagnoses / Procedures Referred By Contac t Referred To Contact [facility] Diagnoses Chronic obstructive pulmonary disease, unspecified COPD type (HCC) Procedures LUNG DIFFUSION CAPACITY (DLCO) DIFFUSING CAPACITY Romina Kahn, INTERNATIONAL MARKETING EXECUTIVE.SUPERVISOR STRIPPING [address] [place] [address] Phone: tel: fax: [facility] [place] [phone] Referral ID Status Reason Start Date Expiration Date V isits Requested Visits Authorized [id number] Closed Auto-Generate d Referral 01/08/2024 02/06/2025 1 1 Specialty Diagnoses / Procedures Referred By Contac t Referred To Contact [facility] Diagnoses Chronic obstructive pulmonary disease, unspecified COPD type (HCC) Procedures SPIROMETRY WITH DILATOR IF OBSTRUCTED BRNCDILAT RSPSE SPMTRY PRE&POST-BRNCDILAT ADMN Romina Kahn, INTERNATIONAL MARKETING EXECUTIVE.SUPERVISOR STRIPPING [address] [place] [address] Phone: tel: fax: [place] [address] Referral ID Status Reason Start Date Expiration Date V isits Requested Visits Authorized [id number] Closed Auto-Generate d Referral 01/08/2024 02/06/2025 1 1 Reason Comments Schedule Surgery Right chest explorat ion poss robotic, poss thoracotomy, poss lung resection c=1.5 Reason Comments Follow UP Reason Comments Established Patient Reason Comments Established Patient Reason Comments Post-Op Visit Reason Onset Date Comments Allied Health Visit 09/10/2024 Medication A dherence Outreach Reason Comments Follow Up Lung Cancer Specialty Diagnoses / Procedures Referred By Contac t Referred To Contact Oncology Diagnoses Squamous cell carcinoma of lung, unspecified laterality (HCC) Procedures CONSULT TO ONCOLOGY OFFICE/OUTPATIENT [facility] 60 MINUTES Thad Garrett MD [address] [address] Phone: tel: fax: Referral ID Status Reason Start Date Expiration Date V isits Requested Visits Authorized [id number] Closed PCP Requested Referral 09/22/2023 09/21/2024 1 1 Reason Onset Date Comments Population Health Navigation Outreach 10/25/2024 [employer] [place] Reason Comments CoPat Start Care Teams (unrecognized sec tion and content) Security Auditor Relationship Specialty Start Date End Date Praful Su MD [address] [place] [address] PCP - General Family Practice 04/15/10 Don Lara MD [address] [place] [address] Referring Urology 10/15/20 Security Auditor Relationship Specialty Start Date End Date Praful Su MD [address] [place] [address] PCP - General Family Practice 04/15/10 Don Lara MD [address] [place] [address] Referring Urology 10/15/20 Security Auditor Relationship Specialty Start Date End Date Praful Su MD [address] [place] [address] PCP - General Family Practice 04/15/10 Don Lara MD [address] [place] [address] Referring Urology 10/15/20 Security Auditor Relationship Specialty Start Date End Date Praful Su MD [address] [place] [address] PCP - General Family Practice 04/15/10 Don Lara MD [address] [place] [address] Referring Urology 10/15/20 Security Auditor Relationship Specialty Start Date End Date Praful Su MD [address] [place] [address] PCP - General Family Medicine 04/15/10 Don Lara MD [address] [place] [address] Referring Urology 10/15/20 Security Auditor Relationship Specialty Start Date End Date Praful Su MD [address] [place] [address] PCP - General Family Medicine 04/15/10 Don Lara MD [address] [place] [address] Referring Urology 10/15/20 Security Auditor Relationship Specialty Start Date End Date Praful Su MD [address] [place] [address] PCP - General Family Medicine 04/15/10 Don Lara MD [address] [place] [address] Referring Urology 10/15/20 Security Auditor Relationship Specialty Start Date End Date Praful Su MD [address] [place] [address] PCP - General Family Medicine 04/15/10 Don Lara MD [address] [place] [address] Referring Urology 10/15/20 Security Auditor Relationship Specialty Start Date End Date Praful Su MD [address] [place] [address] PCP - General Family Medicine 04/15/10 Don Lara MD [address] [place] [address] Referring Urology 10/15/20 Security Auditor Relationship Specialty Start Date End Date Praful Su MD [address] [place] [address] PCP - General Family Medicine 04/15/10 Don Lara MD [address] [place] [address] Referring Urology 10/15/20 Security Auditor Relationship Specialty Start Date End Date Praful Su MD [address] [place] [address] PCP - General Family Medicine 04/15/10 Don Lara MD [address] [place] [address] Referring Urology 10/15/20 Security Auditor Relationship Specialty Start Date End Date Praful Su MD [address] [place] [address] PCP - General Family Medicine 04/15/10 Don Lara MD [address] [place] [address] Referring Urology 10/15/20 Security Auditor Relationship Specialty Start Date End Date Praful Su MD [address] [place] [address] PCP - General Family Medicine 04/15/10 Don Lara MD [address] [place] [address] Referring Urology 10/15/20 Security Auditor Relationship Specialty Start Date End Date Praful Su MD [address] [place] [address] PCP - General Family Medicine 04/15/10 Don Lara MD [address] [place] [address] Referring Urology 10/15/20 Security Auditor Relationship Specialty Start Date End Date Praful Su MD [address] [place] [address] PCP - General Family Medicine 04/15/10 Don Lara MD [address] [place] [address] Referring Urology 10/15/20 Security Auditor Relationship Specialty Start Date End Date Praful Su MD [address] [place] [address] PCP - General Family Medicine 04/15/10 Don Lara MD [address] [place] [address] Referring Urology 10/15/20 Security Auditor Relationship Specialty Start Date End Date Praful Su MD [address] [place] [address] PCP - General Family Medicine 04/15/10 Don Lara MD [address] [place] [address] Referring Urology 10/15/20 Security Auditor Relationship Specialty Start Date End Date Praful Su MD [address] [place] [address] PCP - General Family Medicine 04/15/10 Don Lara MD [address] [place] [address] Referring Urology 10/15/20 Security Auditor Relationship Specialty Start Date End Date Praful Su MD [address] [place] [address] PCP - General Family Medicine 04/15/10 Don Lara MD [address] [place] [address] Referring Urology 10/15/20 Security Auditor Relationship Specialty Start Date End Date Praful Su MD [address] [place] [address] PCP - General Family Medicine 04/15/10 Don Lara MD [address] [place] [address] Referring Urology 10/15/20 Security Auditor Relationship Specialty Start Date End Date Praful Su MD [address] [place] [address] PCP - General Family Medicine 04/15/10 Don Lara MD [address] [place] [address] Referring Urology 10/15/20 Security Auditor Relationship Specialty Start Date End Date Praful Su MD [address] [place] [address] PCP - General Family Medicine 04/15/10 Don Lara MD [address] [place] [address] Referring Urology 10/15/20 Security Auditor Relationship Specialty Start Date End Date Praful Su MD [address] [place] [address] PCP - General Family Medicine 04/15/10 Don Lara MD [address] [place] [address] Referring Urology 10/15/20 Security Auditor Relationship Specialty Start Date End Date Praful Su MD [address] [place] [address] PCP - General Family Medicine 04/15/10 Don Lara MD [address] [place] [address] Referring Urology 10/15/20 Security Auditor Relationship Specialty Start Date End Date Praful Su MD [address] [place] [address] PCP - General Family Medicine 04/15/10 Don Lara MD [address] [place] [address] Referring Urology 10/15/20 Security Auditor Relationship Specialty Start Date End Date Praful Su MD [address] [place] [address] PCP - General Family Medicine 04/15/10 Don Lara MD [address] [place] [address] Referring Urology 10/15/20 Security Auditor Relationship Specialty Start Date End Date Praful Su MD [address] [place] [address] PCP - General Family Medicine 04/15/10 Don Lara MD [address] [place] [address] Referring Urology 10/15/20 Security Auditor Relationship Specialty Start Date End Date Praful Su MD [address] [place] [address] PCP - General Family Medicine 04/15/10 Don Lara MD [address] [place] [address] Referring Urology 10/15/20 Security Auditor Relationship Specialty Start Date End Date Praful Su MD [address] [place] [address] PCP - General Family Medicine 04/15/10 Don Lara MD [address] [place] [address] Referring Urology 10/15/20 Security Auditor Relationship Specialty Start Date End Date Praful Su MD [address] [place] [address] PCP - General Family Medicine 04/15/10 Don Lara MD [address] [place] [address] Referring Urology 10/15/20 Security Auditor Relationship Specialty Start Date End Date Praful Su MD [address] [place] [address] PCP - General Family Medicine 04/15/10 Don Lara MD [address] [place] [address] Referring Urology 10/15/20 Security Auditor Relationship Specialty Start Date End Date Praful Su MD [address] [place] [address] PCP - General Family Medicine 04/15/10 Don Lara MD [address] [place] [address] Referring Urology 10/15/20 Security Auditor Relationship Specialty Start Date End Date Praful Su MD [address] [place] [address] PCP - General Family Medicine 04/15/10 Don Lara MD [address] [place] [address] Referring Urology 10/15/20 Security Auditor Relationship Specialty Start Date End Date Praful Su MD [address] [place] [address] PCP - General Family Medicine 04/15/10 Don Lara MD [address] [place] [address] Referring Urology 10/15/20 Security Auditor Relationship Specialty Start Date End Date Praful Su MD [address] [place] [address] PCP - General Family Medicine 04/15/10 Don Lara MD [address] [place] [address] Referring Urology 10/15/20 Security Auditor Relationship Specialty Start Date End Date Praful Su MD [address] [place] [address] PCP - General Family Medicine 04/15/10 Don Lara MD [address] [place] [address] Referring Urology 10/15/20 Security Auditor Relationship Specialty Start Date End Date Praful Su MD [address] [place] [address] PCP - General Family Medicine 04/15/10 Don Lara MD [address] [place] [address] Referring Urology 10/15/20 Security Auditor Relationship Specialty Start Date End Date Praful Su MD [address] [place] [address] PCP - General Family Medicine 04/15/10 Don Lara MD [address] [place] [address] Referring Urology 10/15/20 Security Auditor Relationship Specialty Start Date End Date Praful Su MD [address] [place] [address] PCP - General Family Medicine 04/15/10 Don Lara MD [address] [place] [address] Referring Urology 10/15/20 Security Auditor Relationship Specialty Start Date End Date Praful Su MD [address] [place] [address] PCP - General Family Medicine 04/15/10 Don Lara MD [address] [place] [address] Referring Urology 10/15/20 Security Auditor Relationship Specialty Start Date End Date Praful Su MD [address] [place] [address] PCP - General Family Medicine 04/15/10 Don Lara MD [address] [place] [address] Referring Urology 10/15/20 Security Auditor Relationship Specialty Start Date End Date Praful Su MD [address] [place] [address] PCP - General Family Medicine 04/15/10 Don Lara MD [address] [place] [address] Referring Urology 10/15/20 Security Auditor Relationship Specialty Start Date End Date Praful Su MD [address] [place] [address] PCP - General Family Medicine 04/15/10 Don Lara MD [address] [place] [address] Referring Urology 10/15/20 Security Auditor Relationship Specialty Start Date End Date Praful Su MD [address] [place] [address] PCP - General Family Medicine 04/15/10 Don Lara MD [address] [place] [address] Referring Urology 10/15/20 Security Auditor Relationship Specialty Start Date End Date Praful Su MD [address] [place], [place] [address] PCP - General Family Medicine 04/15/10 Don Lara MD [address] [place] [address] Referring Urology 10/15/20 Kevin Patterson MD [address] [place] [address] Referring Hematology/Oncology 10/10/23 Security Auditor Relationship Specialty Start Date End Date Praful Su MD [address] [place], [place] [address]180 PCP - General Family Medicine 04/15/10 Don Lara MD [address] [place] [address] Referring Urology 10/15/20 Kevin Patterson MD [address] [place] [address] Referring Hematology/Oncology 10/10/23 Security Auditor Relationship Specialty Start Date End Date Praful Su MD [address] [place] [address] PCP - General Family Medicine 04/15/10 Don Lara MD [address] [place] [address] Referring Urology 10/15/20 Kevin Patterson MD [address] [place] [address] Referring Hematology/Oncology 10/10/23 Security Auditor Relationship Specialty Start Date End Date Praful Su MD [address] [place] [address] PCP - General Family Medicine 04/15/10 Don Lara MD [address] [place] [address] Referring Urology 10/15/20 Kevin Patterson MD [address] [place] [address] Referring Hematology/Oncology 10/10/23 Security Auditor Relationship Specialty Start Date End Date Praful Su MD [address] [place] [address] PCP - General Family Medicine 04/15/10 Don Lara MD [address] [place] [address] Referring Urology 10/15/20 Kevin Patterson MD [address] [place] [address] Referring Hematology/Oncology 10/10/23 Security Auditor Relationship Specialty Start Date End Date Praful Su MD [address] [place] [address] PCP - General Family Medicine 04/15/10 Don Lara MD [address] [place] [address] Referring Urology 10/15/20 Kevin Patterson MD [address] [place] [address] Referring Hematology/Oncology 10/10/23 Security Auditor Relationship Specialty Start Date End Date Praful Su MD [address] [place] [address] PCP - General Family Medicine 04/15/10 Don Lara MD [address] [place] [address] Referring Urology 10/15/20 Kevin Patterson MD [address] [place] [address] Referring Hematology/Oncology 10/10/23 Security Auditor Relationship Specialty Start Date End Date Prfaul Su MD [address] [place] [address] PCP - General Family Medicine 04/15/10 Don Lara MD [address] [place] [address] Referring Urology 10/15/20 Kevin Patterson MD [address] [place] [address] Referring Hematology/Oncology 10/10/23 Security Auditor Relationship Specialty Start Date End Date Praful Su MD [address] [place] [address] PCP - General Family Medicine 04/15/10 Don Lara MD [address] [place] [address] Referring Urology 10/15/20 Kevin Patterson MD [address] [place] [address] Referring Hematology/Oncology 10/10/23 Security Auditor Relationship Specialty Start Date End Date Praful Su MD [address] [place] [address] PCP - General Family Medicine 04/15/10 Don Lara MD [address] [place] [address] Referring Urology 10/15/20 Kevin Patterson MD [address] [place] [phone] Referring Hematology/Oncology 10/10/23 Security Auditor Relationship Specialty Start Date End Date Praful Su MD [address] [place] [address] PCP - General Family Medicine 04/15/10 Don Lara MD [address] [place] [address] Referring Urology 10/15/20 [place] [address] [place] [address] Referring Hematology/Oncology 10/10/23 Security Auditor Relationship Specialty Start Date End Date Praful Su MD [address] [place] [address] PCP - General Family Medicine 04/15/10 Don Lara MD [address] [place] [address] Referring Urology 10/15/20 Kevin Patterson MD [address] [place] [phone] Referring Hematology/Oncology 10/10/23 Security Auditor Relationship Specialty Start Date End Date Praful Su MD [address] [place] [address] PCP - General Family Medicine 04/15/10 Don Lara MD [address] [place] [address] Referring Urology 10/15/20 Kevin Patterson MD [address] [place] [address] Referring Hematology/Oncology 10/10/23 Cecile Duggan, RN [address] [place] [address] Primary Care [employer] 11/20/23 Security Auditor Relationship Specialty Start Date End Date Praful Su MD [address] [place] [address] PCP - General Family Medicine 04/15/10 Don Lara MD [address] [place] [address] Referring Urology 10/15/20 Kevin Patterson MD [address] [place] [phone] Referring Hematology/Oncology 10/10/23 Cecile Duggan, GABI [address] [place] [address] Primary Care [employer] 11/20/23 Security Auditor Relationship Specialty Start Date End Date Praful Su MD [address] [place] [address] PCP - General Family Medicine 04/15/10 Don Lara MD [address] [place] [address] Referring Urology 10/15/20 Kevin Patterson MD [address] [place] [address] Referring Hematology/Oncology 10/10/23 Cecile Duggan RN [address] [place] [address] Primary Care [employer] 11/20/23 Security Auditor Relationship Specialty Start Date End Date Praful Su MD [address] [place] [address] PCP - General Family Medicine 04/15/10 Don Lara MD [address] [place] [address] Referring Urology 10/15/20 Kevin Patterson MD [address] [place] [address] Referring Hematology/Oncology 10/10/23 Cecile Duggan RN [address] [place] [address] Primary Care [employer] 11/20/23 Security Auditor Relationship Specialty Start Date End Date Praful Su MD [address] [place] [address] PCP - General Family Medicine 04/15/10 Don Lara MD [address] [place] [address] Referring Urology 10/15/20 Kevin Patterson MD [address] [place] [address] Referring Hematology/Oncology 10/10/23 Cecile Duggan RN [address] [place] [address] Primary Care [employer] 11/20/23 Security Auditor Relationship Specialty Start Date End Date Praful Su MD [address] [place] [address] PCP - General Family Medicine 04/15/10 Don Lara MD [address] [place] [address] Referring Urology 10/15/20 Kevin Patterson MD [address] [place] [address] Referring Hematology/Oncology 10/10/23 Cecile Duggan, GABI [address] [place], [place] [address] Primary Care [employer] 11/20/23 Security Auditor Relationship Specialty Start Date End Date Praful Su MD [address] [place] [address] PCP - General Family Medicine 04/15/10 Don Lara MD [address] [place] [address] Referring Urology 10/15/20 Kevin Patterson MD [address] [place] [address] Referring Hematology/Oncology 10/10/23 Cecile Duggan, GABI [address] [place] [address] Primary Care [employer] 11/20/23 12/19/23 Security Auditor Relationship Specialty Start Date End Date Praful Su MD [address] [place] [address] PCP - General Family Medicine 04/15/10 Don Lara MD [address] [place] [address] Referring Urology 10/15/20 Kevin Patterson MD [address] [place], [place] 6303995 Referring Hematology/Oncology 10/10/23 Cecile Duggan, RN [address] [place] [address] Primary Care [employer] 11/20/23 12/19/23 Security Auditor Relationship Specialty Start Date End Date Praful Su MD [address] [place] [address] PCP - General Family Medicine 04/15/10 Don Lara MD [address] [place] [address] Referring Urology 10/15/20 Kevin Patterson MD [address] [place] [address] Referring Hematology/Oncology 10/10/23 Cecile Duggan, RN [address] [place] [address] Primary Care [employer] 11/20/23 12/19/23 Security Auditor Relationship Specialty Start Date End Date Praful Su MD [address] [place] [address] PCP - General Family Medicine 04/15/10 Don Lara MD [address] [place] [address] Referring Urology 10/15/20 Kevin Patterson MD [address] [place] [address] Referring Hematology/Oncology 10/10/23 Security Auditor Relationship Specialty Start Date End Date Praful Su MD [address] [place] [address] PCP - General Family Medicine 04/15/10 Don Lara MD [address] [place] [address] Referring Urology 10/15/20 Kevin Patterson MD [address] [place] [address] Referring Hematology/Oncology 10/10/23 Cecile Duggan, RN [address] [place] [address] Primary Care [employer] 11/20/23 12/19/23 Security Auditor Relationship Specialty Start Date End Date Praful Su MD [address] [place] [address] PCP - General Family Medicine 04/15/10 Don Lara MD [address] [place] [address] Referring Urology 10/15/20 Kevin Patterson MD [address] [place] [address] Referring Hematology/Oncology 10/10/23 Security Auditor Relationship Specialty Start Date End Date Praful Su MD [address] [place] [address] PCP - General Family Medicine 04/15/10 Don Lara MD [address] [place] [address] Referring Urology 10/15/20 Kevin Patterson MD [address] [place] [address] Referring Hematology/Oncology 10/10/23 Security Auditor Relationship Specialty Start Date End Date Praful Su MD [address] [place] [address] PCP - General Family Medicine 04/15/10 Don Lara MD [address] [place] [address] Referring Urology 10/15/20 Kevin Patterson MD [address] [place] [address] Referring Hematology/Oncology 10/10/23 Security Auditor Relationship Specialty Start Date End Date Praful Su MD [address] [place] [address] PCP - General Family Medicine 04/15/10 Don Lara MD [address] [place] [address] Referring Urology 10/15/20 Kevin Patterson MD [address] [place] [address] Referring Hematology/Oncology 10/10/23 Security Auditor Relationship Specialty Start Date End Date Praful Su MD [address] [place] [address] PCP - General Family Medicine 04/15/10 Don Lara MD [address] [place] [address] Referring Urology 10/15/20 Kevin Patterson MD [address] [place] [address] Referring Hematology/Oncology 10/10/23 Security Auditor Relationship Specialty Start Date End Date Praful Su MD [address] [place] [address] PCP - General Family Medicine 04/15/10 Don Lara MD [address] [place] [address] Referring Urology 10/15/20 Kevin Patterson MD [address] [place] [address] Referring Hematology/Oncology 10/10/23 Security Auditor Relationship Specialty Start Date End Date Praful uS MD [address] [place] [address] PCP - General Family Medicine 04/15/10 Don Lara MD [address] [place] [address] Referring Urology 10/15/20 Kevin Patterson MD [address] [place] [address] Referring Hematology/Oncology 10/10/23 Security Auditor Relationship Specialty Start Date End Date Praful Su MD [address] [place] [address] PCP - General Family Medicine 04/15/10 Don Lara MD [address] [place] [address] Referring Urology 10/15/20 Kevin Patterson MD [address] [place] [phone] Referring Hematology/Oncology 10/10/23 Security Auditor Relationship Specialty Start Date End Date Praful Su MD [address] [place] [address] PCP - General Family Medicine 04/15/10 Don Lara MD [address] [place] [address] Referring Urology 10/15/20 Kevin Patterson MD [address] [place] [phone] Referring Hematology/Oncology 10/10/23 Jay Arce PA-C [address] [place] [address] [facility] 05/10/24 Darcie Whitten, GABI [address] [place], [place] [address] Primary Care [employer] 05/13/24 Security Auditor Relationship Specialty Start Date End Date Praful Su MD [address] [place] [address] PCP - General Family Medicine 04/15/10 Don Lara MD [address] [place] [address] Referring Urology 10/15/20 Kevin Patterson MD [address] [place] [address] Referring Hematology/Oncology 10/10/23 Jay Arce PA-C [address] [place] [address] [facility] 05/10/24 Darcie Whitten, GABI [address] [place], [place] [address]31 Primary [facility] [employer] 05/13/24 Security Auditor Relationship Specialty Start Date End Date Praful Su MD [address] [place] [address] PCP - General Family Medicine 04/15/10 Don Lara MD [address] [place] [address] Referring Urology 10/15/20 Kevin Patterson MD [address] [place] [address] Referring Hematology/Oncology 10/10/23 Jay Arce PA-C [address] [place] [address] [facility] 05/10/24 Darcie Whitten, GABI [address] [place], [place] [phone] Primary Care [employer] 05/13/24 Security Auditor Relationship Specialty Start Date End Date Praful Su MD [address] [place] [address] PCP - General Family Medicine 04/15/10 Don Lara MD [address] [place] [address] Referring Urology 10/15/20 Kevin Patterson MD [facility] [place] [address] Referring Hematology/Oncology 10/10/23 Jay Arce PA-C [address] [place] [address] [facility] 05/10/24 Darcie Whitten RN [address] [place], [place] 1584431 Primary Care [employer] 05/13/24 Security Auditor Relationship Specialty Start Date End Date Praful Su MD [address] [place] [address] PCP - General Family Medicine 04/15/10 Don Lara MD [address] [place] [address] Referring Urology 10/15/20 Kevin Patterson MD [address] [place] [address] Referring Hematology/Oncology 10/10/23 Jay Arce PA-C [address] [place] [address] [facility] 05/10/24 Darcie Whitten RN [address] [place], [place] [phone] Primary Care [employer] 05/13/24 Security Auditor Relationship Specialty Start Date End Date Praful Su MD [address] [place] [address] PCP - General Family Medicine 04/15/10 Don Lara MD [address] [place] [address] Referring Urology 10/15/20 Kevin Patterson MD [address] [place] [address] Referring Hematology/Oncology 10/10/23 Jay Arce PA-C [address] [place] [address] [facility] 05/10/24 Darcie Whitten, RN [address] [place] [address] Primary Care [employer] 05/13/24 Security Auditor Relationship Specialty Start Date End Date Praful Su MD [address] [place] [address] PCP - General Family Medicine 04/15/10 Don Lara MD [address] [place] [address] Referring Urology 10/15/20 Kevin Patterson MD [address] [place] [address] Referring Hematology/Oncology 10/10/23 Jay Arce PA-C [address] [place] [address] [facility] 05/10/24 Darcie Whitten RN [address] [place] [phone] Primary [facility] [employer] 05/13/24 Security Auditor Relationship Specialty Start Date End Date Praful Su MD [address] [place] [address] PCP - General Family Medicine 04/15/10 Don Lara MD [address] [place] [address] Referring Urology 10/15/20 Kevin Patterson MD [address] [place], [place] [address] Referring Hematology/Oncology 10/10/23 Jay Arce PA-C [address] [place] [address] [facility] 05/10/24 Darcie Whitten RN [address] [place] [phone] Primary [facility] [employer] 05/13/24 Security Auditor Relationship Specialty Start Date End Date Praful Su MD [address] [place] [address] PCP - General Family Medicine 04/15/10 Don Lara MD [address] [place] [address] Referring Urology 10/15/20 Kevin Patterson MD [address] [place] [address] Referring Hematology/Oncology 10/10/23 Jay Arce PA-C [address] [place] [address] [facility] 05/10/24 Security Auditor Relationship Specialty Start Date End Date Praful Su MD [address] [place] [address] PCP - General Family Medicine 04/15/10 Don Lara MD [address] [place] [address] Referring Urology 10/15/20 [place] [address] [place] [address] Referring Hematology/Oncology 10/10/23 Jay Arce PA-C [address] [place] [address] [facility] 05/10/24 Security Auditor Relationship Specialty Start Date End Date Praful Su MD [address] [place] [address] PCP - General Family Medicine 04/15/10 Don Lara MD [address] [place] [address] Referring Urology 10/15/20 Kevin Patterson MD [facility] [place] [address] Referring Hematology/Oncology 10/10/23 Jay Arce PA-C [address] [place] [address] [facility] 05/10/24 Darcie Whitten, GABI [address] [place] [address] Primary Care [employer] 06/24/24 Security Auditor Relationship Specialty Start Date End Date Praful Su MD [address] [place] [address] PCP - General Family Medicine 04/15/10 Don Lara MD [address] [place] [address] Referring Urology 10/15/20 Kevin Patterson MD [address] [place], [place] [phone] Referring Hematology/Oncology 10/10/23 Jay Arce PA-C [address] [place] [address] [facility] 05/10/24 Darcie Whitten RN [address] [place] [phone] Primary [facility] [employer] 06/24/24 Security Auditor Relationship Specialty Start Date End Date Praful Su MD [address] [place] [address] PCP - General Family Medicine 04/15/10 Don Lara MD [address] [place] [address] Referring Urology 10/15/20 Kevin Patterson MD [address] [place], [place] [phone] Referring Hematology/Oncology 10/10/23 Jay Arce PA-C [address] [place] [address] [facility] 05/10/24 Darcie Whitten, RN [address] [place], [place] [phone] Primary [facility] [employer] 06/24/24 Security Auditor Relationship Specialty Start Date End Date Praful Su MD [address] [place] [address] PCP - General Family Medicine 04/15/10 Don Lara MD [address] [place] [address] Referring Urology 10/15/20 Kevin Patterson MD [address] [place] [phone] Referring Hematology/Oncology 10/10/23 Jay Arce PA-C [address] [place] [address] [facility] 05/10/24 Darcie Whitten, GABI [address] [place] [address] Primary Care [employer] 06/24/24 Security Auditor Relationship Specialty Start Date End Date Praful Su MD [address] [place] [address] PCP - General Family Medicine 04/15/10 Don Lara MD [address] [place] [address] Referring Urology 10/15/20 Kevin Patterson MD [address] [place] [address] Referring Hematology/Oncology 10/10/23 Jay Arce PA-C [address] [place] [address] [facility] 05/10/24 Darcie Whitten, GABI [address] [place], [place] 356[address] Primary Care [employer] 06/24/24 Security Auditor Relationship Specialty Start Date End Date Praflu Su MD [address] [place], [place] [id number] PCP - General Family Medicine 04/15/10 Don Lara MD [address] [place] [address] Referring Urology 10/15/20 Kevin Patterson MD [address] [place] [address] Referring Hematology/Oncology 10/10/23 Jay Arce PA-C [address] [place], [place] [id number] [facility] 05/10/24 Darcie Whitten, GABI [address] [place] [address] Primary Care [employer] 06/24/24 Security Auditor Relationship Specialty Start Date End Date Praful Su MD [address] [place], [place] [address] PCP - General Family Medicine 04/15/10 Don Lara MD [address] [place] [address] Referring Urology 10/15/20 Kevin Patterson MD [address] [place] [address] Referring Hematology/Oncology 10/10/23 Jay Arce PA-C [address] [place] [address] [facility] 05/10/24 Security Auditor Relationship Specialty Start Date End Date Praful Su MD [address] [place] [address] PCP - General Family Medicine 04/15/10 Don Lara MD [address] [place] [address] Referring Urology 10/15/20 Kevin Patterson MD [address] [place] [address] Referring Hematology/Oncology 10/10/23 Jay Arce PA-C [address] [place] [address] [facility] 05/10/24 Security Auditor Relationship Specialty Start Date End Date Praful Su MD [address] [place] [address] PCP - General Family Medicine 04/15/10 Don Lara MD [address] [place] [address] Referring Urology 10/15/20 Kevin Patterson MD [address] [place] [address] Referring Hematology/Oncology 10/10/23 Jay Arce PA-C [address] [place] [address] [facility] 05/10/24 Security Auditor Relationship Specialty Start Date End Date Praful Su MD [address] [place] [address] PCP - General Family Medicine 04/15/10 Don Lara MD [address] [place] [address] Referring Urology 10/15/20 Kevin Patterson MD [address] [place] [address] Referring Hematology/Oncology 10/10/23 Jay Arce PA-C [address] [place] [address] [facility] 05/10/24 Darcie Whitten, RN [address] [place] [phone] [employer] 09/06/24 Security Auditor Relationship Specialty Start Date End Date Praful Su MD [address] [place] [address] PCP - General Family Medicine 04/15/10 Don Lara MD [address] [place] [address] Referring Urology 10/15/20 Kevin Patterson MD [address] [place], [place] [address] Referring Hematology/Oncology 10/10/23 Jay Arce PA-C [address] [place] [address] [facility] 05/10/24 Darcie Whitten RN [address] [place] [address] [employer] 09/06/24 Security Auditor Relationship Specialty Start Date End Date Praful Su MD [address] [place] [address] PCP - General Family Medicine 04/15/10 Don Lara MD [address] [place] [address] Referring Urology 10/15/20 Kevin Patterson MD [address] [place] [address] Referring Hematology/Oncology 10/10/23 Jay Arce PA-C [address] [place], [place] [address]6450 [facility] 05/10/24 Darcie Whitten RN [address] [place] [address] Wood [employer]maker 09/06/24 Security Auditor Relationship Specialty Start Date End Date Praful Su MD [address] [place] [address] PCP - General Family Medicine 04/15/10 oDn Lara MD [address] [place] [address] Referring Urology 10/15/20 Kevin Patterson MD [address] [place] [address] Referring Hematology/Oncology 10/10/23 Jay Arce PA-C [address] [place] [address] [facility] 05/10/24 Darcie Whitten, GABI [address] [place] [address] Wood [employer]maker 09/06/24 Security Auditor Relationship Specialty Start Date End Date Praful Su MD [address] [place] [address] PCP - General Family Medicine 04/15/10 Don Lara MD [address] [place] [address] Referring Urology 10/15/20 Kevin Patterson MD [address] [place] [address] Referring Hematology/Oncology 10/10/23 Jay Arce PA-C [address] [place] [address] [facility] 05/10/24 Security Auditor Relationship Specialty Start Date End Date Praful Su MD [address] [place] [address] PCP - General Family Medicine 04/15/10 Don Lara MD [address] [place] [address] Referring Urology 10/15/20 Kevin Patterson MD [address] [place] [address] Referring Hematology/Oncology 10/10/23 Jay Arce PA-C [address] [place] [address] [facility] 05/10/24 Security Auditor Relationship Specialty Start Date End Date Praful Su MD [address] [place] [address] PCP - General Family Medicine 04/15/10 Don Lara MD [address] [place] [address] Referring Urology 10/15/20 Kevin Patterson MD [address] [place] [address] Referring Hematology/Oncology 10/10/23 Jay Arce PA-C [address] [place] [address] [facility] 05/10/24 Security Auditor Relationship Specialty Start Date End Date Praful Su MD [address] [place] [address] PCP - General Family Medicine 04/15/10 Don Lara MD [address] [place] [address] Referring Urology 10/15/20 Kevin Patterson MD [address] [place] [address] Referring Hematology/Oncology 10/10/23 Jay Arce PA-C [address] [place] [address] [facility] 05/10/24 (unrecognized sect ion and content) No Status Records FoundNo Status Records FoundNo Status Records FoundNo Status Records FoundNo Status Records Found INFORMATION SOURCE (unrecogn ized section and content) DATE CREATED AUTHOR 11/02/2023 [facility] DATE CREATED AUTHOR AUTHOR'S ORGANIZ ATION 01/07/2024 [facility] DATE CREATED AUTHOR AUTHOR'S ORGANIZ ATION 11/28/2024 [facility] DATE CREATED AUTHOR AUTHOR'S ORGANIZ ATION 11/29/2024 [facility] DATE CREATED AUTHOR AUTHOR'S ORGANIZ ATION 11/29/2024 [facility] FOR RECORDS PERTAINING TO PATIENTS WHO ARE OR HAVE BEEN ENROLLED IN A CHEMICAL DEPENDENCY/SUBSTANCEABUSE PROGRAM, SOME INFORMATION MAY BE OMITTED. This clinical summary was aggregated from multiple sources. Caution should be exercised in using it in the provision of clinical care. This summary normalizes information from multiple sources, and as a consequence, information in this document may materially change the coding, format and clinical context of patient data. In addition, data may be omitted in some cases. CLINICAL DECISIONS SHOULD BE BASED ON THE PRIMARY CLINICAL [employer]DS. [employer] provides no warranty or guarantee of the accuracy or completeness of information in this [email or web address]
--- OUTSIDE RECORDS SUMMARY | 2024-12-02 04:23 | XMS RPT_ITS | CCD ---
Author Organization [facility] Care Team Providers Care Skin Diver Name Role Phone Georges HENRY, Praful Fair Primary Care Provider Marco HENRY, Don Jeff Unavailable Georges HENRY, Praful Fair Primary Care Provider [...] Darcie Unavailable Maria Dolores RN, Darcie Unavailable [phone] PROVIDER, UNKNOWN Referring Unavailable GRAHOMERO CROWDERIL [...] PRAFUL F Primary Care Unavailabl e Maik Bridges Attending Unavailable Missy VALENCIA, Maik Attending Unavailable [...] Comment on above: Take 1 tablet by [facility] once daily. docusate sodium 50 mg / sennosides, long term 8.6 mg oral tablet (10 sources) Start: [...] Comment on above: TAKE [address] [facility] EVERY DAY Completed/Discontinued Medications Medication Drug Class(es) [...] up to 7 days. 11/19/2023 11/26/2023 Active [id number] 200 actuat albuterol 0.09 mg/actuat metered dose [...] tablet 11/13/2023 11/15/2023 Suspended 60 actuat tiotropium 0.29857 mg/actuat inhalation spray (1 source) Anticholinergic Start: [...] 11-01-2024 Episodic Other aftercare (1 source) Other snf (current) drug therapy; Translations: [Other snf (current) drug therapy] Onset: 11-22-2024 Episodic Other [...] Test Name Value Interpretation Reference Range Facility [facility] 11-26-2024 [facility] Letter Text Letter Text Normal [facility] CBC W/Diff, Automatedon - Absolute Lymph 1.73 X10 3/uL Normal 0.83-4.51 [facility] Comment on above: Order Comment: 108.1 Performed By: #### L 100.0100, L500.3400, L501.1105 #### [facility] [address] [place], [address] Absolute Neut 4.6 X10 3/uL Normal 2.0-7.7 [facility] Comment on above: Order Comment: 108.1 Performed By: #### L 100.0100, L500.3400, L501.1105 #### [facility] [address] [place], [address] Basophils/100 WBC (Bld) 1.2 % High 0-1 [facility] Comment on above: Order Comment: 108.1 Performed By: #### L 100.0100, L500.3400, L501.1105 #### [facility] [address] [place], [address] Eosinophils/100 WBC (Bld) 4.1 % Normal 0-5 [facility] Comment on above: Order Comment: 108.1 Performed By: #### L 100.0100, L500.3400, L501.1105 #### [facility] [address] [place], [address] Erythrocyte distribution width (RBC) [Ratio] 14.3 % Normal 11.6-14.6 [facility] Comment on above: Order Comment: 108.1 Performed By: #### L 100.0100, L500.3400, L501.1105 #### [facility] [address] [place], [address] Hematocrit (Bld) [Volume fraction] 34.5 % Low 40-54 [facility] Comment on above: Order Comment: 108.1 Performed By: #### L 100.0100, L500.3400, L501.1105 #### [facility] [address] [place], [address] Hemoglobin (Bld) [Mass/Vol] 11.0 g/dL Low 13.0-16.5 [facility] Comment on above: Order Comment: 108.1 Performed By: #### L 100.0100, L500.3400, L501.1105 #### [facility] [address] [place], [address] IG% 0.400 Normal 0.0-0.9 [facility] Comment on above: Order Comment: 108.1 Result Comment: IG% - Immature Granulocytes (promyelocytes, myelocytes and metamyelocytes) > 1% indicates that a LEFT SHIFT is Present. Performed By: #### L 100.0100, L500.3400, L501.1105 #### [facility] [address] [place], [address] Lymphocytes/100 WBC (Bld) 23.5 % Normal 19-41 [facility] Comment on above: Order Comment: 108.1 Performed By: #### L 100.0100, L500.3400, L501.1105 #### [facility] [address] [place], [address] MCH (RBC) [Entitic mass] 29.0 pg Normal 27.0-32.0 [facility] Comment on above: Order Comment: 108.1 Performed By: #### L 100.0100, L500.3400, L501.1105 #### [facility] [address] [place], [address] MCHC (RBC) [Mass/Vol] 31.9 g/dL Low 32-36 [facility] Comment on above: Order Comment: 108.1 Performed By: #### L 100.0100, L500.3400, L501.1105 #### [facility] [address] [place], [address] MCV (RBC) [Entitic vol] 91.0 fL Normal 80-94 [facility] Comment on above: Order Comment: 108.1 Performed By: #### L 100.0100, L500.3400, L501.1105 #### [facility] [address] [place], [address] Monocytes/100 WBC (Bld) 8.0 % Normal 0-10 [facility] Comment on above: Order Comment: 108.1 Performed By: #### L 100.0100, L500.3400, L501.1105 #### [facility] [address] [place], [address] Neutrophils/100 WBC (Bld) 62.8 % Normal 47-70 [facility] Comment on above: Order Comment: 108.1 Performed By: #### L 100.0100, L500.3400, L501.1105 #### [facility] [address] [place], [address] Nucleated RBC (Bld) [#/Vol] 0 10*3/uL Normal 0-5 [facility] Comment on above: Order Comment: 108.1 Performed By: #### L 100.0100, L500.3400, L501.1105 #### [facility] [address] [place], [address] Platelet mean volume (Bld) [Entitic vol] 9.6 fL Normal 6.2-12.0 [facility] Comment on above: Order Comment: 108.1 Performed By: #### L 100.0100, L500.3400, L501.1105 #### [facility] [address] [place], [address] Platelets (Bld) [#/Vol] 319 10*3/uL Normal 150-450 [facility] Comment on above: Order Comment: 108.1 Performed By: #### L 100.0100, L500.3400, L501.1105 #### [facility] [address] [place], [address] RBC (Bld) [#/Vol] 3.79 10*6/uL Low 4.6-6.2 [facility] Comment on above: Order Comment: 108.1 Performed By: #### L 100.0100, L500.3400, L501.1105 #### [facility] [address] [place], [address] RDW SD 48.0 fl High 35.1-43.9 [facility] Comment on above: Order Comment: 108.1 Performed By: #### L 100.0100, L500.3400, L501.1105 #### [facility] [address] [place], [address] WBC (Bld) [#/Vol] 7.4 10*3/uL Normal 4.4-11.0 [facility] Comment on above: Order Comment: 108.1 Performed By: #### L 100.0100, L500.3400, L501.1105 #### [facility] [address] [place], [address] CNPTOUTREACHon 11-25-2024 CNPTOUTREACH Normal [facility] Liver Profileon 11-25-2024 Albumin [Mass/Vol] 3.3 g/dL Low 3.4-4.8 [facility] Comment on above: Order Comment: 108.1 Performed By: #### L 100.0100, L500.3400, L501.1105 #### [facility] [address] [place], [address] ALK PHOS 79 U/L Normal 40-129 [facility] Comment on above: Order Comment: 108.1 Performed By: #### L 100.0100, L500.3400, L501.1105 #### [facility] [address] [place], [address] ALT [Catalytic activity/Vol] 9 U/L Normal <=46 [facility] Comment on above: Order Comment: 108.1 Performed By: #### L 100.0100, L500.3400, L501.1105 #### [facility] [address] [place], [address] AST [Catalytic activity/Vol] 14 U/L Normal <=37 [facility] Comment on above: Order Comment: 108.1 Performed By: #### L 100.0100, L500.3400, L501.1105 #### [facility] [address] [place], [address] Bilirubin [Mass/Vol] 0.24 mg/dL Normal 0.00-1.30 [facility] Comment on above: Order Comment: 108.1 Performed By: #### L 100.0100, L500.3400, L501.1105 #### [facility] [address] [place], [address] Bilirubin.direct [Mass/Vol] 0.13 mg/dL Normal 0.00-0.30 [facility] Comment on above: Order Comment: 108.1 Performed By: #### L 100.0100, L500.3400, L501.1105 #### [facility] [address] [place], [address] Globulin (S) [Mass/Vol] 3.1 g/dL Normal 2.2-4.2 [facility] Comment on above: Order Comment: 108.1 Performed By: #### L 100.0100, L500.3400, L501.1105 #### [facility] [address] [place], [address] T PROT 6.3 g/dL Normal 5.9-8.4 [facility] Comment on above: Order Comment: 108.1 Performed By: #### L 100.0100, L500.3400, L501.1105 #### [facility] [address] [place], [address] Serum Creatinine AND GFRon 0 - Creatinine [Mass/Vol] 0.58 mg/dL Low 0.70-1.20 [facility] Comment on above: Order Comment: 108.1 Performed By: #### L 100.0100, L500.3400, L501.1105 #### [facility] [address] [place], [address] GFR/1.73 sq M.predicted among non-blacks MDRD (S/P/Bld) [Vol rate/Area] 104 mL/min/{1.73_m2} Normal >60 [facility] Comment on above: Order Comment: 108.1 Result Comment: mL/m in/1.73m2 CKD-EPI Creatinine Equation (2020) Performed By: #### L 100.0100, L500.3400, L501.1105 #### [facility] [address] [place], [place], [address] CT CHEST W IVCONon CT CHEST W IVCON * * *Final Report* * * DATE OF EXAM: Nov 21 2024 12:37PM [facility] 0539 - CT CHEST W IVCON / [...] Unchanged mediastinal lymphadenopathy 5. Right pleural thickening 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: IMMANUEL Transcribe Date/Time: Nov 27 2024 2:06P Dictated by : ANNE COUGHILN MD This examination was interpreted and the report reviewed and electronically signed by: ANNE COUGHLIN MD on Nov 27 2024 2:28PM EST [id number] Normal [facility] CBC W Auto Differential pane l (Bld)on 11-19-2024 Basophils (Bld) [#/Vol] 0.09 10*3/uL Normal <0.11 [facility] Comment on above: Order Comment: Speci men Type: BLOOD SPECIMENOrdering Facility: [facility] Address: [address] [place] [address] Performed By: #### 5 7021-8 ####[facility]ATORYCLIA [id number] [address] [place] [facility] Basophils/100 WBC (Bld) 1.0 % Normal [facility] Comment on above: Order Comment: Speci men Type: BLOOD SPECIMENOrdering Facility: [facility] Address: [address] [place] [address] Performed By: #### 5 7021-8 ####[facility]ATORYCLIA [id number] [address] Differential cell count method Nom (Bld) Auto Normal [facility] Comment on above: Order Comment: Speci men Type: BLOOD SPECIMENOrdering Facility: [facility] Address: [address] [place] [address] Performed By: #### 5 7021-8 ####[facility]ORATORYCLIA [id number] [address] [place] [facility] Eosinophils (Bld) [#/Vol] 0.30 10*3/uL Normal <0.46 [facility] Comment on above: Order Comment: Speci men Type: BLOOD SPECIMENOrdering Facility: [facility] Address: [address] [place] [address] Performed By: #### 5 7021-8 ####[facility]ORYCLIA [id number] [address] Eosinophils/100 WBC (Bld) 3.3 % Normal [facility] Comment on above: Order Comment: Speci men Type: BLOOD SPECIMENOrdering Facility: [facility] Address: [address] [place] [address] Performed By: #### 5 7021-8 ####[facility]ATORYCLIA [id number] [address] [place] Erythrocyte distribution width (RBC) [Ratio] 14.3 % Normal 11.5-15.0 [facility] Comment on above: Order Comment: Speci men Type: BLOOD SPECIMENOrdering Facility: [facility] Address: [address] [place] [address] Performed By: #### 5 7021-8 ####[facility] LABORATORYCLIA [id number] [place] [address] [place] Hematocrit (Bld) [Volume fraction] 36.1 % Low 39.0-51.0 [facility] Comment on above: Order Comment: Speci men Type: BLOOD SPECIMENOrdering Facility: [facility] Address: [address] [place] [address] Performed By: #### 5 7021-8 ####[facility]ATORYCLIA [id number] [address] [place] Hemoglobin (Bld) [Mass/Vol] 11.2 g/dL Low 13.0-17.0 [facility] Comment on above: Order Comment: Speci men Type: BLOOD SPECIMENOrdering Facility: [facility] Address: [address] [place] [address] Performed By: #### 5 7021-8 ####[facility]ORATORYCLIA [id number] [address] [place] Immature granulocytes (Bld) [#/Vol] 0.04 10*3/uL Normal <0.10 [facility] Comment on above: Order Comment: Speci men Type: BLOOD SPECIMENOrdering Facility: [facility] Address: [address] [place] [address] Performed By: #### 5 7021-8 ####[facility]ORATORYCLIA [id number] [address] [place] Immature granulocytes/100 WBC (Bld) 0.4 % Normal [facility] Comment on above: Order Comment: Speci men Type: BLOOD SPECIMENOrdering Facility: [facility] Address: [address] [place] [address] Performed By: #### 5 7021-8 ####[facility]ORATORYCLIA [id number] [place] [address] [place] Lymphocytes (Bld) [#/Vol] 1.52 10*3/uL Normal 1.00-4.00 [facility] Comment on above: Order Comment: Speci men Type: BLOOD SPECIMENOrdering Facility: [facility] Address: [address] [place] [address] Performed By: #### 5 7021-8 ####[facility]ORATORYCLIA [id number] [address] [place] Lymphocytes/100 WBC (Bld) 16.9 % Normal [facility] Comment on above: Order Comment: Speci men Type: BLOOD SPECIMENOrdering Facility: [facility] Address: [address] [place] [address] Performed By: #### 5 7021-8 ####[facility]ORATORYCLIA [id number] [address] MCH (RBC) [Entitic mass] 28.6 pg Normal 26.0-34.0 [facility] Comment on above: Order Comment: Speci men Type: BLOOD SPECIMENOrdering Facility: [facility] Address: [address] [place] [address] Performed By: #### 5 7021-8 ####[facility]ORATORYCLIA [id number] [address] [place] [facility] MCHC (RBC) [Mass/Vol] 31.0 g/dL Normal 30.5-36.0 [facility] Comment on above: Order Comment: Speci men Type: BLOOD SPECIMENOrdering Facility: [facility] Address: [address] [place] [address] Performed By: #### 5 7021-8 ####[facility]ORATORYCLIA [id number] [address] MCV (RBC) [Entitic vol] 92.1 fL Normal 80.0-100.0 [facility] Comment on above: Order Comment: Speci men Type: BLOOD SPECIMENOrdering Facility: [facility] Address: [address] [place] [address] Performed By: #### 5 7021-8 ####[facility]ORATORYCLIA [id number] [address] Monocytes (Bld) [#/Vol] 0.70 10*3/uL Normal <0.87 [facility] Comment on above: Order Comment: Speci men Type: BLOOD SPECIMENOrdering Facility: [facility] Address: [address] [place], [place] [address] Performed By: #### 5 7021-8 ####[facility] LABORATORYCLIA [id number] [place] [address] [place] Monocytes/100 WBC (Bld) 7.8 % Normal [facility] Comment on above: Order Comment: Speci men Type: BLOOD SPECIMENOrdering Facility: [facility] Address: [address] [place] [address] Performed By: #### 5 7021-8 ####[facility]ORATORYCLIA [id number] [place] [address] [place] Neutrophils (Bld) [#/Vol] 6.36 10*3/uL Normal 1.45-7.50 [facility] Comment on above: Order Comment: Speci men Type: BLOOD SPECIMENOrdering Facility: [facility] Address: [address] [place] [address] Performed By: #### 5 7021-8 ####[facility]ORATORYCLIA [id number] [place] [address] [place] Neutrophils/100 WBC (Bld) 70.6 % Normal [facility] Comment on above: Order Comment: Speci men Type: BLOOD SPECIMENOrdering Facility: [facility] Address: [address] [place] [address] Performed By: #### 5 7021-8 ####[facility]ORATORYCLIA [id number] [place] [address] [place] Nucleated RBC (Bld) [#/Vol] 10*3/uL Normal <0.01 [facility] Comment on above: Order Comment: Speci men Type: BLOOD SPECIMENOrdering Facility: [facility] Address: [address] [place] [address] Performed By: #### 5 7021-8 ####[facility]ORATORYCLIA [id number] [address] [place] Nucleated RBC/100 WBC (Bld) [Ratio] 0.0 /100 WBC Normal [facility] Comment on above: Order Comment: Speci men Type: BLOOD SPECIMENOrdering Facility: [facility] Address: [address] [place] [address] Performed By: #### 5 7021-8 ####[facility] LABORATORYCLIA [id number] [place] [address] [place] Platelet mean volume (Bld) [Entitic vol] 9.4 fL Normal 9.0-12.7 [facility] Comment on above: Order Comment: Speci men Type: BLOOD SPECIMENOrdering Facility: [facility] Address: [address] [place] [address] Performed By: #### 5 7021-8 ####[facility] LABORATORYCLIA [id number] [place] [address] [place] Platelets (Bld) [#/Vol] 355 10*3/uL Normal 150-400 [facility] Comment on above: Order Comment: Speci men Type: BLOOD SPECIMENOrdering Facility: [facility] Address: [address] [place] [address] Performed By: #### 5 7021-8 ####[facility] LABORATORYCLIA [id number] [place] [address] [place] RBC (Bld) [#/Vol] 3.92 10*6/uL Low 4.20-6.00 [facility] Comment on above: Order Comment: Speci men Type: BLOOD SPECIMENOrdering Facility: [facility] Address: [address] [place] [address] Performed By: #### 5 7021-8 ####[facility] LABORATORYCLIA [id number] [place] [id number] [place] WBC (Bld) [#/Vol] 9.01 10*3/uL Normal 3.70-11.00 [facility] Comment on above: Order Comment: Speci men Type: BLOOD SPECIMENOrdering Facility: [facility] Address: [address] [place] [address] Performed By: #### 5 7021-8 ####[facility] LABORATORYCLIA [id number] [place] [id number] [place] CNOVSPon 11-19-2024 CNOVSP Normal [facility] CNPNon 11-19-2024 CNPN Normal [facility] Comprehensive metabolic 2000 panelon 11-19-2024 Albumin [Mass/Vol] 3.7 g/dL Low 3.9-4.9 [facility] Comment on above: Order Comment: Speci men Type: BLOOD SPECIMENOrdering Facility: [facility] Address: [address] [place] [address] Performed By: #### 2 4323-8 ####[facility] LABORATORYCLIA [id number] [place] [address] [place] ALP [Catalytic activity/Vol] 97 U/L Normal 38-113 [facility] Comment on above: Order Comment: Speci men Type: BLOOD SPECIMENOrdering Facility: [facility] Address: [address] [place] [address] Performed By: #### 2 4323-8 ####[facility] LABORATORYCLIA [id number] [address] [place] ALT [Catalytic activity/Vol] 9 U/L Low 10-54 [facility] Comment on above: Order Comment: Speci men Type: BLOOD SPECIMENOrdering Facility: [facility] Address: [address] [place] [address] Performed By: #### 2 4323-8 ####[facility] LABORATORYCLIA [id number] [address] [place] [facility] Anion gap [Moles/Vol] 11 mmol/L Normal 8-15 [facility] Comment on above: Order Comment: Speci men Type: BLOOD SPECIMENOrdering Facility: [facility] Address: [address] [place] [address] Performed By: #### 2 4323-8 ####[facility] LABORATORYCLIA [id number] [address] [place] AST [Catalytic activity/Vol] 11 U/L Low 14-40 [facility] Comment on above: Order Comment: Speci men Type: BLOOD SPECIMENOrdering Facility: [facility] Address: [address] [place] [address] Performed By: #### 2 4323-8 ####[facility] LABORATORYCLIA [id number] [place] [address] [place] Bilirubin [Mass/Vol] 0.4 mg/dL Normal 0.2-1.3 [facility] Comment on above: Order Comment: Speci men Type: BLOOD SPECIMENOrdering Facility: [facility] Address: [address] [place] [address] Performed By: #### 2 4323-8 ####[facility] LABORATORYCLIA [id number] [place] [address] [place] Calcium [Mass/Vol] 8.8 mg/dL Normal 8.5-10.2 [facility] Comment on above: Order Comment: Speci men Type: BLOOD SPECIMENOrdering Facility: [facility] Address: [address] [place] [address] Performed By: #### 2 4323-8 ####[facility] LABORATORYCLIA [id number] [place] [address] [place] Chloride [Moles/Vol] 104 mmol/L Normal 98-107 [facility] Comment on above: Order Comment: Speci men Type: BLOOD SPECIMENOrdering Facility: [facility] Address: [address] [place] [address] Performed By: #### 2 4323-8 ####[facility] LABORATORYCLIA [id number] [place] [address] [place] CO2 [Moles/Vol] 27 mmol/L Normal 22-30 [facility] Comment on above: Order Comment: Speci men Type: BLOOD SPECIMENOrdering Facility: [facility] Address: [address] [place] [address] Performed By: #### 2 4323-8 ####[facility] LABORATORYCLIA [id number] [place] [address] [place] Creatinine [Mass/Vol] 0.54 mg/dL Low 0.73-1.22 [facility] Comment on above: Order Comment: Speci men Type: BLOOD SPECIMENOrdering Facility: [facility] Address: [address] [place] [address] Performed By: #### 2 4323-8 ####[facility] LABORATORYCLIA [id number] [place] [address] [place] eGFRcr SerPlBld CKD-EPI 2020 106 mL/min/1.73m??? Normal >=60 [facility] Comment on above: Order Comment: Rody adams Type: BLOOD SPECIMENOrdering Facility: [facility] Address: [address] [place] [address] Result Comment: Karon mated Glomerular Filtration Rate [...] Performed By: #### 2 4323-8 ####[facility] LABORATORYCLIA [id number] [place] [address] [place] Glucose [Mass/Vol] 114 mg/dL High 74-99 [facility] Comment on above: Order Comment: Rody adams Type: BLOOD SPECIMENOrdering Facility: [facility] Address: [address] [place] [address] Result Comment: The [place] [employer] (ADA) provides guidance for cutoff [...] Standards of Medical Care in Diabetes 2016, [place] [employer]. Diabetes Care. 2016.39(Suppl 1). Performed By: #### 2 4323-8 ####[facility] LABORATORYCLIA [id number] [place] [address] [place] Potassium [Moles/Vol] 3.5 mmol/L Low 3.7-5.1 [facility] Comment on above: Order Comment: Speci men Type: BLOOD SPECIMENOrdering Facility: [facility] Address: [address] [place] [address] Performed By: #### 2 4323-8 ####[facility] LABORATORYCLIA [id number] [place] [address] [place] Protein [Mass/Vol] 7.0 g/dL Normal 6.3-8.0 [facility] Comment on above: Order Comment: Speci men Type: BLOOD SPECIMENOrdering Facility: [facility] Address: [address] [place] [address] Performed By: #### 2 4323-8 ####[facility] LABORATORYCLIA [id number] [place] [address] [place] Sodium [Moles/Vol] 142 mmol/L Normal 136-144 [facility] Comment on above: Order Comment: Speci men Type: BLOOD SPECIMENOrdering Facility: [facility] Address: [address] [place] [address] Performed By: #### 2 4323-8 ####[facility] LABORATORYCLIA [id number] [place] [address] [place] Urea nitrogen [Mass/Vol] 7 mg/dL Low 9-24 [facility] Comment on above: Order Comment: Speci men Type: BLOOD SPECIMENOrdering Facility: [facility] Address: [address] [place] [address] Performed By: #### 2 4323-8 ####[facility] LABORATORYCLIA [id number] [place] [id number] [place] PSA SerPl-mCncon 11-19-2024 Prostate specific Ag [Mass/Vol] ng/mL Normal <2.60 [facility] Comment on above: Order Comment: Speci men Type: BLOOD SPECIMENOrdering Facility: [facility] Address: [address] [place] [address] Result Comment: Tota l PSA test methodology used is the Electrochemiluminescence Immunoassay by [employer]. Total PSA values by differing methodologies cannot be interchanged. Performed By: #### 2 857-1 ####[facility] LABCLIA [id number] [address] [address] [place] Transferrin receptor.soluble [Mass/Vol]on 11-19-2024 Transferrin receptor.soluble [Moles/Vol] 3.0 mg/L Normal 2.2-5.0 [facility] Comment on above: Order Comment: Speci men Type: BLOOD SPECIMENOrdering Facility: [facility] Address: [address] [place] [address] Performed By: #### 3 0248-9 ####[facility] LABCLIA [id number] [place] [id number] [place] CBC W/Diff, Automatedon 10-29 Absolute Lymph 1.69 X10 3/uL Normal 0.83-4.51 [facility] Comment on above: Order Comment: 108.1 Performed By: #### L 100.0100, L500.3400, L501.1105 #### [facility] [address] [place], [address] Absolute Neut 4.9 X10 3/uL Normal 2.0-7.7 [facility] Comment on above: Order Comment: 108.1 Performed By: #### L 100.0100, L500.3400, L501.1105 #### [facility] [address] [place], [address] Basophils/100 WBC (Bld) 1.0 % Normal 0-1 [facility] Comment on above: Order Comment: 108.1 Performed By: #### L 100.0100, L500.3400, L501.1105 #### [facility] [address] [place], [address] Eosinophils/100 WBC (Bld) 4.3 % Normal 0-5 [facility] Comment on above: Order Comment: 108.1 Performed By: #### L 100.0100, L500.3400, L501.1105 #### [facility] [address] [place], [address] Erythrocyte distribution width (RBC) [Ratio] 14.3 % Normal 11.6-14.6 [facility] Comment on above: Order Comment: 108.1 Performed By: #### L 100.0100, L500.3400, L501.1105 #### [facility] [address] [place], [address] Hematocrit (Bld) [Volume fraction] 34.5 % Low 40-54 [facility] Comment on above: Order Comment: 108.1 Performed By: #### L 100.0100, L500.3400, L501.1105 #### [facility] [address] [place], [address] Hemoglobin (Bld) [Mass/Vol] 10.8 g/dL Low 13.0-16.5 [facility] Comment on above: Order Comment: 108.1 Performed By: #### L 100.0100, L500.3400, L501.1105 #### [facility] [address] [place], [address] IG% 0.300 Normal 0.0-0.9 [facility] Comment on above: Order Comment: 108.1 Result Comment: IG% - Immature Granulocytes (promyelocytes, myelocytes and metamyelocytes) > 1% indicates that a LEFT SHIFT is Present. Performed By: #### L 100.0100, L500.3400, L501.1105 #### [facility] [address] [place], [address] Lymphocytes/100 WBC (Bld) 21.8 % Normal 19-41 [facility] Comment on above: Order Comment: 108.1 Performed By: #### L 100.0100, L500.3400, L501.1105 #### [facility] [address] [place], [address] MCH (RBC) [Entitic mass] 28.8 pg Normal 27.0-32.0 [facility] Comment on above: Order Comment: 108.1 Performed By: #### L 100.0100, L500.3400, L501.1105 #### [facility] [address] [place], [address] MCHC (RBC) [Mass/Vol] 31.3 g/dL Low 32-36 [facility] Comment on above: Order Comment: 108.1 Performed By: #### L 100.0100, L500.3400, L501.1105 #### [facility] [address] [place], [address] MCV (RBC) [Entitic vol] 92.0 fL Normal 80-94 [facility] Comment on above: Order Comment: 108.1 Performed By: #### L 100.0100, L500.3400, L501.1105 #### [facility] [address] [place], [address] Monocytes/100 WBC (Bld) 9.0 % Normal 0-10 [facility] Comment on above: Order Comment: 108.1 Performed By: #### L 100.0100, L500.3400, L501.1105 #### [facility] [address] [place], [address] Neutrophils/100 WBC (Bld) 63.6 % Normal 47-70 [facility] Comment on above: Order Comment: 108.1 Performed By: #### L 100.0100, L500.3400, L501.1105 #### [facility] [address] [place], [address] Nucleated RBC (Bld) [#/Vol] 0 10*3/uL Normal 0-5 [facility] Comment on above: Order Comment: 108.1 Performed By: #### L 100.0100, L500.3400, L501.1105 #### [facility] [address] [place], [address] Platelet mean volume (Bld) [Entitic vol] 9.5 fL Normal 6.2-12.0 [facility] Comment on above: Order Comment: 108.1 Performed By: #### L 100.0100, L500.3400, L501.1105 #### [facility] [address] [place], [address] Platelets (Bld) [#/Vol] 337 10*3/uL Normal 150-450 [facility] Comment on above: Order Comment: 108.1 Performed By: #### L 100.0100, L500.3400, L501.1105 #### [facility] [address] [place], [address] RBC (Bld) [#/Vol] 3.75 10*6/uL Low 4.6-6.2 [facility] Comment on above: Order Comment: 108.1 Performed By: #### L 100.0100, L500.3400, L501.1105 #### [facility] [address] [place], [address] RDW SD 48.2 fl High 35.1-43.9 [facility] Comment on above: Order Comment: 108.1 Performed By: #### L 100.0100, L500.3400, L501.1105 #### [facility] [address] [place], [address] WBC (Bld) [#/Vol] 7.7 10*3/uL Normal 4.4-11.0 [facility] Comment on above: Order Comment: 108.1 Performed By: #### L 100.0100, L500.3400, L501.1105 #### [facility] [address] [place], [address] Liver Profileon 11-18-2024 Albumin [Mass/Vol] 3.0 g/dL Low 3.4-4.8 [facility] Comment on above: Order Comment: 108.1 Performed By: #### L 100.0100, L500.3400, L501.1105 #### [facility] [address] [place], [address] ALK PHOS 80 U/L Normal 40-129 [facility] Comment on above: Order Comment: 108.1 Performed By: #### L 100.0100, L500.3400, L501.1105 #### [facility] [address] [place], [address] ALT [Catalytic activity/Vol] 7 U/L Normal <=46 [facility] Comment on above: Order Comment: 108.1 Performed By: #### L 100.0100, L500.3400, L501.1105 #### [facility] [address] [place], [address] AST [Catalytic activity/Vol] 13 U/L Normal <=37 [facility] Comment on above: Order Comment: 108.1 Performed By: #### L 100.0100, L500.3400, L501.1105 #### [facility] [address] [place], [address] Bilirubin [Mass/Vol] 0.34 mg/dL Normal 0.00-1.30 [facility] Comment on above: Order Comment: 108.1 Performed By: #### L 100.0100, L500.3400, L501.1105 #### [facility] [address] [place], [address] Bilirubin.direct [Mass/Vol] 0.16 mg/dL Normal 0.00-0.30 [facility] Comment on above: Order Comment: 108.1 Performed By: #### L 100.0100, L500.3400, L501.1105 #### [facility] [address] [place], [address] Globulin (S) [Mass/Vol] 3.0 g/dL Normal 2.2-4.2 [facility] Comment on above: Order Comment: 108.1 Performed By: #### L 100.0100, L500.3400, L501.1105 #### [facility] [address] [place], [address] T PROT 6.0 g/dL Normal 5.9-8.4 [facility] Comment on above: Order Comment: 108.1 Performed By: #### L 100.0100, L500.3400, L501.1105 #### [facility] [address] [place], [address] Serum Creatinine AND GFRon 0 11-18-2024 Creatinine [Mass/Vol] 0.50 mg/dL Low 0.70-1.20 [facility] Comment on above: Order Comment: 108.1 Performed By: #### L 100.0100, L500.3400, L501.1105 #### [facility] [address] [place], [address] GFR/1.73 sq M.predicted among non-blacks MDRD (S/P/Bld) [Vol rate/Area] 108 mL/min/{1.73_m2} Normal >60 [facility] Comment on above: Order Comment: 108.1 Result Comment: mL/m in/1.73m2 CKD-EPI Creatinine Equation (2020) Performed By: #### L 100.0100, L500.3400, L501.1105 #### [facility] [address] [place], [address] REFERRAL FOR ADDITIONAL BIOM ARKER AND MOLECULAR TESTINGon 11-14-2024 REFERRAL FOR ADDITIONAL BIOMARKER AND MOLECULAR TESTING Normal [facility] Comment on above: Order Comment: Speci men Type: TISSUE SPECIMENOrdering Facility: [facility] Address: [address] [place] [address] Result Comment: Requ est has been received for evaluation and the results will be issued separately. Performed By: #### Migel PMOL ####[facility] LABCLIA [id number] [place] [address] [place] Bilirubin, Directon 11-12-19 25 Bilirubin.direct [Mass/Vol] 0.15 mg/dL Normal 0.00-0.30 [facility] Comment on above: Order Comment: 108-1 Performed By: #### L 100.0100, L500.4050, L501.4700, L501.9520 #### [facility] [address] [place], [address] CBC W/Diff, Automatedon 10-28 Absolute Lymph 1.87 X10 3/uL Normal 0.83-4.51 [facility] Comment on above: Performed By: #### L 100.0100, L500.4050, L501.4700, L501.9520 #### [facility] [address] [place], [address] Absolute Neut 6.0 X10 3/uL Normal 2.0-7.7 [facility] Comment on above: Performed By: #### L 100.0100, L500.4050, L501.4700, L501.9520 #### [facility] [address] [place], [address] Basophils/100 WBC (Bld) 1.6 % High 0-1 [facility] Comment on above: Performed By: #### L 100.0100, L500.4050, L501.4700, L501.9520 #### [facility] [address] [place], [address] Eosinophils/100 WBC (Bld) 4.5 % Normal 0-5 [facility] Comment on above: Performed By: #### L 100.0100, L500.4050, L501.4700, L501.9520 #### [facility] [address] [place], [address] Erythrocyte distribution width (RBC) [Ratio] 14.6 % Normal 11.6-14.6 [facility] Comment on above: Performed By: #### L 100.0100, L500.4050, L501.4700, L501.9520 #### [facility] [address] [place], [address] Hematocrit (Bld) [Volume fraction] 34.5 % Low 40-54 [facility] Comment on above: Performed By: #### L 100.0100, L500.4050, L501.4700, L501.9520 #### [facility] [address] [place], [address] Hemoglobin (Bld) [Mass/Vol] 10.7 g/dL Low 13.0-16.5 [facility] Comment on above: Performed By: #### L 100.0100, L500.4050, L501.4700, L501.9520 #### [facility] [address] [place], [address] IG% 0.500 Normal 0.0-0.9 [facility] Comment on above: Result Comment: IG% - Immature Granulocytes (promyelocytes, myelocytes and metamyelocytes) > 1% indicates that a LEFT SHIFT is Present. Performed By: #### L 100.0100, L500.4050, L501.4700, L501.9520 #### [facility] [address] [place], [address] Lymphocytes/100 WBC (Bld) 20.3 % Normal 19-41 [facility] Comment on above: Performed By: #### L 100.0100, L500.4050, L501.4700, L501.9520 #### [facility] [address] [place], [address] MCH (RBC) [Entitic mass] 29.5 pg Normal 27.0-32.0 [facility] Comment on above: Performed By: #### L 100.0100, L500.4050, L501.4700, L501.9520 #### [facility] [address] [place], [address] MCHC (RBC) [Mass/Vol] 31.0 g/dL Low 32-36 [facility] Comment on above: Performed By: #### L 100.0100, L500.4050, L501.4700, L501.9520 #### [facility] [address] [place], [address] MCV (RBC) [Entitic vol] 95.0 fL High 80-94 [facility] Comment on above: Performed By: #### L 100.0100, L500.4050, L501.4700, L501.9520 #### [facility] [address] [place], [address] Monocytes/100 WBC (Bld) 7.8 % Normal 0-10 [facility] Comment on above: Performed By: #### L 100.0100, L500.4050, L501.4700, L501.9520 #### [facility] [address] [place], [address] Neutrophils/100 WBC (Bld) 65.3 % Normal 47-70 [facility] Comment on above: Performed By: #### L 100.0100, L500.4050, L501.4700, L501.9520 #### [facility] [address] [place], [address] Nucleated RBC (Bld) [#/Vol] 0 10*3/uL Normal 0-5 [facility] Comment on above: Performed By: #### L 100.0100, L500.4050, L501.4700, L501.9520 #### [facility] [address] [place], [address] Platelet mean volume (Bld) [Entitic vol] 9.2 fL Normal 6.2-12.0 [facility] Comment on above: Performed By: #### L 100.0100, L500.4050, L501.4700, L501.9520 #### [facility] [address] [place], [address] Platelets (Bld) [#/Vol] 443 10*3/uL Normal 150-450 [facility] Comment on above: Performed By: #### L 100.0100, L500.4050, L501.4700, L501.9520 #### [facility] [address] [place], [address] RBC (Bld) [#/Vol] 3.63 10*6/uL Low 4.6-6.2 [facility] Comment on above: Performed By: #### L 100.0100, L500.4050, L501.4700, L501.9520 #### [facility] [address] [place], [address] RDW SD 51.3 fl High 35.1-43.9 [facility] Comment on above: Performed By: #### L 100.0100, L500.4050, L501.4700, L501.9520 #### [facility] [address] [place], [address] WBC (Bld) [#/Vol] 9.2 10*3/uL Normal 4.4-11.0 [facility] Comment on above: Performed By: #### L 100.0100, L500.4050, L501.4700, L501.9520 #### [facility] [address] [place], [address] Comprehensive Metabolic Prof ilon 11-11-2024 Albumin [Mass/Vol] 3.0 g/dL Low 3.4-4.8 [facility] Comment on above: Order Comment: 108-1 Performed By: #### L 100.0100, L500.4050, L501.4700, L501.9520 #### [facility] [address] [place], [address] Albumin/Globulin [Mass ratio] 0.9 {ratio} Normal 0.9-2.4 [facility] Comment on above: Order Comment: 108-1 Performed By: #### L 100.0100, L500.4050, L501.4700, L501.9520 #### [facility] [address] [place], [address] ALK PHOS 81 U/L Normal 40-129 [facility] Comment on above: Order Comment: 108-1 Performed By: #### L 100.0100, L500.4050, L501.4700, L501.9520 #### [facility] [address] [place], [address] ALT [Catalytic activity/Vol] 11 U/L Normal <=46 [facility] Comment on above: Order Comment: 108-1 Performed By: #### L 100.0100, L500.4050, L501.4700, L501.9520 #### [facility] [address] [place], [address] AST [Catalytic activity/Vol] 14 U/L Normal <=37 [facility] Comment on above: Order Comment: 108-1 Performed By: #### L 100.0100, L500.4050, L501.4700, L501.9520 #### [facility] [address] [place], [address] Bilirubin [Mass/Vol] 0.33 mg/dL Normal 0.00-1.30 [facility] Comment on above: Order Comment: 108-1 Performed By: #### L 100.0100, L500.4050, L501.4700, L501.9520 #### [facility] [address] [place], [address] BUN/CRE 10.5 RATIO Normal 10-20 [facility] Comment on above: Order Comment: 108-1 Performed By: #### L 100.0100, L500.4050, L501.4700, L501.9520 #### [facility] [address] [place], [address] Calcium [Mass/Vol] 9.0 mg/dL Normal 7.6-11.0 [facility] Comment on above: Order Comment: 108-1 Performed By: #### L 100.0100, L500.4050, L501.4700, L501.9520 #### [facility] [address] [place], [address] Chloride [Moles/Vol] 108 mmol/L Normal 98-108 [facility] Comment on above: Order Comment: 108-1 Performed By: #### L 100.0100, L500.4050, L501.4700, L501.9520 #### [facility] [address] [place], [address] CO2 [Moles/Vol] 24.0 mmol/L Normal 21.0-32.0 [facility] Comment on above: Order Comment: 108-1 Performed By: #### L 100.0100, L500.4050, L501.4700, L501.9520 #### [facility] [address] [place], [address] Creatinine [Mass/Vol] 0.57 mg/dL Low 0.70-1.20 [facility] Comment on above: Order Comment: 108-1 Performed By: #### L 100.0100, L500.4050, L501.4700, L501.9520 #### [facility] [address] [place], [address] GAP 11 Normal 5-15 [facility] Comment on above: Order Comment: 108-1 Performed By: #### L 100.0100, L500.4050, L501.4700, L501.9520 #### [facility] [address] [place], [address] GFR/1.73 sq M.predicted among non-blacks MDRD (S/P/Bld) [Vol rate/Area] 104 mL/min/{1.73_m2} Normal >60 [facility] Comment on above: Order Comment: 108-1 Result Comment: mL/m in/1.73m2 CKD-EPI Creatinine Equation (2020) Performed By: #### L 100.0100, L500.4050, L501.4700, L501.9520 #### [facility] [address] [place], [address] Globulin (S) [Mass/Vol] 3.2 g/dL Normal 2.2-4.2 [facility] Comment on above: Order Comment: 108-1 Performed By: #### L 100.0100, L500.4050, L501.4700, L501.9520 #### [facility] [address] [place], [address] Glucose [Mass/Vol] 95 mg/dL Normal 70-99 [facility] Comment on above: Order Comment: 108-1 Performed By: #### L 100.0100, L500.4050, L501.4700, L501.9520 #### [facility] [address] [place], [address] Potassium [Moles/Vol] 3.6 mmol/L Normal 3.3-5.1 [facility] Comment on above: Order Comment: 108-1 Performed By: #### L 100.0100, L500.4050, L501.4700, L501.9520 #### [facility] [address] [place], [address] Sodium [Moles/Vol] 143 mmol/L Normal 133-145 [facility] Comment on above: Order Comment: 108-1 Performed By: #### L 100.0100, L500.4050, L501.4700, L501.9520 #### [facility] [address] [place], [address] T PROT 6.2 g/dL Normal 5.9-8.4 [facility] Comment on above: Order Comment: 108-1 Performed By: #### L 100.0100, L500.4050, L501.4700, L501.9520 #### [facility] [address] [place], [address] Urea nitrogen [Mass/Vol] 6 mg/dL Normal - [facility] Comment on above: Order Comment: 108-1 Performed By: #### L 100.0100, L500.4050, L501.4700, L501.9520 #### [facility] [address] [place], [address] Thyroid Stim Hormone (TSH)on 11-11-2024 TSH 0.043 uIU/mL Low 0.300-4.200 [facility] Comment on above: Order Comment: 108-1 Performed By: #### L 100.0100, L500.4050, L501.4700, L501.9520 #### [facility] [address] [place], [address] Basic metabolic 2000 panelon 11-05-2024 Anion gap [Moles/Vol] 10 mmol/L Normal 10-11 [facility] Comment on above: Order Comment: Speci men Type: BLOOD SPECIMEN [facility] Address: [address] [place] [address] Performed By: #### 2 4321-2, 67320-0, 74936-7, 2276-4 #### [facility] CLIA [id number] [address] [place] [address] [place] Calcium [Mass/Vol] 8.4 mg/dL Low 8.5-10.2 [facility] Comment on above: Order Comment: Speci men Type: BLOOD SPECIMEN [facility]: [facility] Address: [address] [place] [address] Performed By: #### 2 4321-2, 80167-1, 04682-1, 2275-4 #### [facility] CLIA [id number] [address] [place] [address] [place] Chloride [Moles/Vol] 107 mmol/L Normal 98-107 [facility] Comment on above: Order Comment: Speci men Type: BLOOD SPECIMEN [facility]: [facility] Address: [address] [place] [address] Performed By: #### 2 4321-2, 72267-1, 03013-1, 2275-4 #### [facility] CLIA [id number] [address] [place] [address] [place] CO2 [Moles/Vol] 24 mmol/L Normal 22-30 [facility] Comment on above: Order Comment: Speci men Type: BLOOD SPECIMEN [facility]: [facility] Address: [address] [place] [address] Performed By: #### 2 4321-2, 21458-0, 65112-1, 2275-4 #### [facility] CLIA [id number] [address] [place] [address] [place] Creatinine [Mass/Vol] 0.60 mg/dL Low 0.73-1.22 [facility] Comment on above: Order Comment: Speci men Type: BLOOD SPECIMEN [facility]: [facility] Address: [address] [place] [address] Performed By: #### 2 4321-2, 02288-3, 34697-3, 2275-4 #### [facility] CLIA [id number] [address] [place] eGFRcr SerPlBld CKD-EPI 2020 103 mL/min/1.73m??? Normal >=60 [facility] Comment on above: Order Comment: Speci men Type: BLOOD SPECIMEN [facility]: [facility] Address: [address] [place] [address] Result Comment: Karon mated Glomerular Filtration Rate [...] actual GFR. Performed By: #### 2 4321-2, 11275-6, 42745-8, 2275-4 #### [facility] CLIA [id number] [address] [place] [address] [place] Glucose [Mass/Vol] 109 mg/dL High 74-99 [facility] Comment on above: Order Comment: Rody adams Type: BLOOD SPECIMEN [facility]: [facility] Address: [address] [place] [address] Result Comment: The [place] [employer] (ADA) provides guidance for cutoff [...] Standards of Medical Care in Diabetes 2016, [place] [employer]. Diabetes Care. 2016.39(Suppl 1). Performed By: #### 2 4321-2, 67157-1, 88262-9, 2275-4 #### [facility] CLIA [id number] [address] [place] [address] [place] Potassium [Moles/Vol] 3.3 mmol/L Low 3.7-5.1 [facility] Comment on above: Order Comment: Rody adams Type: BLOOD SPECIMEN [facility]: [facility] Address: [address] [id number] Performed By: #### 2 4321-2, 27458-8, 67947-1, 2275-4 #### [facility] CLIA [id number] [address] [place] [facility] Sodium [Moles/Vol] 141 mmol/L Normal 136-144 [facility] Comment on above: Order Comment: Speci men Type: BLOOD SPECIMEN [facility]: [facility] Address: [address] [place] [address] Performed By: #### 2 4321-2, 78274-8, 35023-7, 2275-4 #### [facility] CLIA [id number] [address] [place] Urea nitrogen [Mass/Vol] 8 mg/dL Low 9-24 [facility] Comment on above: Order Comment: Speci men Type: BLOOD SPECIMEN [facility]: [facility] Address: [address] [place] [address] Performed By: #### 2 4321-2, 38840-5, 19295-1, 2275-4 #### [facility] CLIA [id number] [address] CBC panel Auto (Bld)on 11-05 Erythrocyte distribution width (RBC) [Ratio] 14.6 % Normal 11.5-15.0 [facility] Comment on above: Order Comment: Speci men Type: BLOOD SPECIMEN [facility]: [facility] Address: [address] [place] [address] Performed By: #### 2 4321-2, 60266-0, 82460-9, 2275-4 #### [facility] CLIA [id number] [address] [facility] Hematocrit (Bld) [Volume fraction] 33.8 % Low 39.0-51.0 [facility] Comment on above: Order Comment: Speci men Type: BLOOD SPECIMEN [facility]: [facility] Address: [address] [place] [address] Performed By: #### 2 4321-2, 17703-8, 62664-4, 2275-4 #### [facility] CLIA [id number] [address] Hemoglobin (Bld) [Mass/Vol] 10.8 g/dL Low 13.0-17.0 [facility] Comment on above: Order Comment: Speci men Type: BLOOD SPECIMEN Ordering Facility: [facility] Address: [address] [place] [address] Performed By: #### 2 4321-2, 02504-9, 35778-4, 2275-05 #### [facility] CLIA [id number] [address] MCH (RBC) [Entitic mass] 29.8 pg Normal 26.0-34.0 [facility] Comment on above: Order Comment: Speci men Type: BLOOD SPECIMEN Ordering Facility: [facility] Address: [address] [place] [address] Performed By: #### 2 4321-2, 41564-1, 15819-6, 2275-05 #### [facility] CLIA [id number] [address] MCHC (RBC) [Mass/Vol] 32.0 g/dL Normal 30.5-36.0 [facility] Comment on above: Order Comment: Speci men Type: BLOOD SPECIMEN Ordering Facility: [facility] Address: [address] [place] [address] Performed By: #### 2 4321-2, 11686-3, , 2275-05 #### [facility] CLIA [id number] [address] STATES [facility] MCV (RBC) [Entitic vol] 93.4 fL Normal 80.0-100.0 [facility] Comment on above: Order Comment: Speci men Type: BLOOD SPECIMEN Ordering Facility: [facility] Address: [address] [place] [address] Performed By: #### 2 4321-2, 50973-0, , 2275-05 #### [facility] CLIA [id number] [address] Nucleated RBC (Bld) [#/Vol] 10*3/uL Normal <0.01 [facility] Comment on above: Order Comment: Speci men Type: BLOOD SPECIMEN Ordering Facility: [facility] Address: [address] [place], [place] [address] Performed By: #### 2 4321-2, 44604-1, 00686-0, 2275-4 #### [facility] CLIA [id number] 1000 [place] [address] [place] Platelet mean volume (Bld) [Entitic vol] 8.6 fL Low 9.0-12.7 [facility] Comment on above: Order Comment: Speci men Type: BLOOD SPECIMEN Ordering Facility: [facility] Address: [address] [place] [address] Performed By: #### 2 4321-2, 88293-4, 53275-4, 2275-4 #### [facility] CLIA [id number] [address] [place] Platelets (Bld) [#/Vol] 410 10*3/uL High 150-400 [facility] Comment on above: Order Comment: Speci men Type: BLOOD SPECIMEN Ordering Facility: [facility] Address: [address] [place] [address] Performed By: #### 2 4321-2, 73392-6, 51203-8, 2275-4 #### [facility] CLIA [id number] 1000 [place] [address] [place] RBC (Bld) [#/Vol] 3.62 10*6/uL Low 4.20-6.00 [facility] Comment on above: Order Comment: Speci men Type: BLOOD SPECIMEN Ordering Facility: [facility] Address: [address] [place], [place] [address] Performed By: #### 2 4321-2, 46605-0, 89335-0, 2275-4 #### [facility] CLIA [id number] [address] [place] WBC (Bld) [#/Vol] 9.62 10*3/uL Normal 3.70-11.00 [facility] Comment on above: Order Comment: Speci men Type: BLOOD SPECIMEN Ordering Facility: [facility] Address: [address] [place] [address] Performed By: #### 2 4321-2, 03380-3, 57152-2, 2276-4 #### [facility] CLIA [id number] [address] [place] [address] [facility] CNDSon 11-05-2024 CNDS HNO ID: [id number] Author: PATRICIA SLOAN MD Service: Hospital Medicine [...] Consulting: Kurt Pereira MD Primary Service: , [facility] Consulting: Kevin Patterson MD MY CONDITION [...] in your lung. You were sent to [facility] and underwent bronchoscopy. You were treated with IV antibiotics. The results from the bronchoscopy showed concern for cancer reoccurrence. You should follow-up with oncology as outpatient. You are being discharged to residential facility and will continue taking IV antibiotics [...] No pending results Discharge Disposition Discharge Disposition: [facility] Facility - Less than 30 Days Additional [...] cavity mass, pulmonology consulted, underwent bronchoscopy at [facility] on 10/29/2024. Showed right upper [...] and Zosyn. (more content not included)... Normal [facility] CONSULT PROGon 11-05-2024 CONSULT PROG HNO ID: [id number] Author: KURT PEREIRA MD Service: Infectious Disease [...] been malignant. Plan on performing bronchoscopy/EBUS at [facility] on 10/29. Continue unasyn Negative [...] 1527 Peripherally Inserted (PICC) Right Arm 4.0 Kazakh <1 day Drain Duration External Collection Device 10/24/24 2300 11 days Labs: reviewed Microbiology data: reviewed Imaging data: reviewed Evelia Fuchs, ELVIRA [phone] 11/05/2024 6:44 AM I personally saw and evaluated the patient. I reviewed the PROGRAM ATTENDANT Hx, exam and MDM and I agree with the PROGRAM ATTENDANT assessment and plan unless otherwise addended above. Kurt Pereira MD [phone] 11/05/2024 12:13 PM [facility] CONSULT PROGon 11-04-2024 CONSULT PROG HNO ID: [id number] Author: KURT PEREIRA MD Service: Infectious Disease [...] been malignant. Plan on performing bronchoscopy/EBUS at [facility] on 10/29. Continue unasyn Negative [...] reviewed Imaging data: reviewed Evelia Fuchs CNP [phone] 11/04/2024 10:33 AM I personally saw and evaluated the patient. I reviewed the PROGRAM ATTENDANT Hx, exam and MDM and I agree with the PROGRAM ATTENDANT assessment and plan unless otherwise addended above. Kurt Pereira MD [phone] 11/04/2024 5:12 PM Normal [facility] NURSING PROGon 11-04-2024 NURSING PROG HNO ID: [id number] Author: ALETHA BURROWS RN Service: PICC Team [...] Signed By: Aletha Burrows RN In Department: [facility] THERAPY NTon 11-04-2024 THERAPY NT HNO ID: [id number] Author: ALEX LEWIS OTR/Umberto Service: Occupational Therapy Author Type: Occupational Therapist Type: Therapy (PT/OT/Speech/Resp) Filed: 11/04/2024 11:35 Note Text: -- Summary: OT precert note -- Occupational Therapy Treatment Summary SERVICE DATE: 11/04/2024 SERVICE TIME: 1110 to 1128 ROOM: ON-9U-9901- OT 6 Clicks Score: 19 DISCHARGE RECOMMENDATIONS [...] + driving SUBJECTIVE Patient supine in bed [place] agreeable to OT COGNITION Responsiveness: Alert, Awake Follows Commands: Cueing Needed Cueing to Follow Commands: Minimum THERAPY DIAGNOSIS Reduced mobility-other, Decreased activities of daily living (ADL), Unsteadiness on feet, General symptoms and signs-other TREATMENT INTERVENTIONS Self Senior Care Management (14428) Timed Code Treatment (minutes): 18 TRAINING AND [...] Next Visit: Continue per POC SIGNATURE: Alex Lweis OTR/L PATIENT NAME: Stevie Sanchez DATE: November 04, 2024 TIME: 11:35 AM [facility] XR CHEST 1V PORT POST PICC - [...] the stomach is suspected. IMPRESSION: See result. 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: PSCB Transcribe Date/Time: Nov 04 2024 3:42P Dictated by : DON DÍAZ MD This examination was interpreted and the report reviewed and electronically signed by: DON DÍAZ MD on Nov 04 2024 3:43PM EST [id number] [facility] CONSULT PROGon 11-03-2024 CONSULT PROG HNO ID: [id number] Author: KURT PEREIRA MD Service: Infectious Disease [...] been malignant. Plan on performing bronchoscopy/EBUS at [facility] on 10/29. Continue unasyn Negative [...] reviewed Imaging data: reviewed Kurt Pereira MD [phone] 11/03/2024 10:33 AM Normal [facility] CBC panel Auto (Bld)on 11-02 Erythrocyte distribution width (RBC) [Ratio] 14.6 % Normal 11.5-15.0 [facility] Comment on above: Order Comment: Speci men Type: BLOOD SPECIMENOrdering Facility: [facility] Address: [address] [place] [address] Performed By: #### 5 8410-2 ####[facility] [id number] [address] Hematocrit (Bld) [Volume fraction] 35.1 % Low 39.0-51.0 [facility] Comment on above: Order Comment: Speci men Type: BLOOD SPECIMENOrdering Facility: [facility] Address: [address] [place] [address] Performed By: #### 5 8410-2 ####[facility] [id number] [address] [place] Hemoglobin (Bld) [Mass/Vol] 10.9 g/dL Low 13.0-17.0 [facility] Comment on above: Order Comment: Speci men Type: BLOOD SPECIMENOrdering Facility: [facility] Address: [address] [place] [address] Performed By: #### 5 8410-2 ####[facility] [id number] [address] MCH (RBC) [Entitic mass] 30.0 pg Normal 26.0-34.0 [facility] Comment on above: Order Comment: Speci men Type: BLOOD SPECIMENOrdering Facility: [facility] Address: [address] [place] [address] Performed By: #### 5 8410-2 ####[facility] [id number] [address] MCHC (RBC) [Mass/Vol] 31.1 g/dL Normal 30.5-36.0 [facility] Comment on above: Order Comment: Speci men Type: BLOOD SPECIMENOrdering Facility: [facility] Address: [address] [place] [address] Performed By: #### 5 8410-2 ####[facility] [id number] [address] MCV (RBC) [Entitic vol] 96.7 fL Normal 80.0-100.0 [facility] Comment on above: Order Comment: Speci men Type: BLOOD SPECIMENOrdering Facility: [facility] Address: [address] [place] [address] Performed By: #### 5 8410-2 ####[facility] [id number] [address] Nucleated RBC (Bld) [#/Vol] 10*3/uL Normal <0.01 [facility] Comment on above: Order Comment: Speci men Type: BLOOD SPECIMENOrdering Facility: [facility] Address: [address] [place] [address] Performed By: #### 5 8410-2 ####[facility] [id number] [address] [place] Platelet mean volume (Bld) [Entitic vol] 8.9 fL Low 9.0-12.7 [facility] Comment on above: Order Comment: Speci men Type: BLOOD SPECIMENOrdering Facility: [facility] Address: [address] [place] [address] Performed By: #### 5 8410-2 ####[facility] [id number] [address] Platelets (Bld) [#/Vol] 392 10*3/uL Normal 150-400 [facility] Comment on above: Order Comment: Speci men Type: BLOOD SPECIMENOrdering Facility: [facility] Address: [address] [place] [address] Performed By: #### 5 8410-2 ####[facility] [id number] [address] [place] RBC (Bld) [#/Vol] 3.63 10*6/uL Low 4.20-6.00 [facility] Comment on above: Order Comment: Speci men Type: BLOOD SPECIMENOrdering Facility: [facility] Address: [address] [place], [place] [address] Performed By: #### 5 8410-2 ####[facility] [id number] [address] WBC (Bld) [#/Vol] 8.77 10*3/uL Normal 3.70-11.00 [facility] Comment on above: Order Comment: Speci men Type: BLOOD SPECIMENOrdering Facility: [facility] Address: [address] [place], [place] [address] Performed By: #### 5 8410-2 ####[facility] [id number] [address] CONSULT PROGon 11-02-2024 CONSULT PROG HNO ID: [id number] Author: APRYL GUERRERO RPh Service: Pharmacy Author [...] 1:01 PM Date/Time: 11/02/2024 1:01 PM Normal [facility] CONSULT PROG HNO ID: [id number] Author: KURT PEREIRA MD Service: Infectious Disease [...] been malignant. Plan on performing bronchoscopy/EBUS at [facility] on 10/29. Continue unasyn Negative [...] reviewed Imaging data: reviewed Kurt Pereira MD [phone] 11/02/2024 10:33 AM Normal [facility] Magnesium SerPl-mCncon 11-02 Magnesium [Mass/Vol] 1.9 mg/dL Normal 1.7-2.3 [facility] Comment on above: Order Comment: Speci men Type: BLOOD SPECIMEN Ordering Facility: [facility] Address: [address] [place] [address] Performed By: #### 2 4321-2, 88707-2, 56837-2, 2275-4 #### [facility] CLIA [id number] [address] [facility] OCCULT BLD EXAM-DIAGon 11-02 OCCULT BLD EXAM-DIAG Negative Normal [facility] Comment on above: Performed By: #### O BDX ####[facility] [id number] [address] [facility] Renal function 2000 panelon 11-02-2024 Albumin [Mass/Vol] 2.6 g/dL Low 3.9-4.9 [facility] Comment on above: Order Comment: Speci men Type: BLOOD SPECIMEN Ordering Facility: [facility] Address: [address] [place] [address] Performed By: #### 2 4321-2, 93788-8, 72226-3, 2275-4 #### [facility] CLIA [id number] [address] [place] [address] [place] Anion gap [Moles/Vol] 7 mmol/L Low 8-15 [facility] Comment on above: Order Comment: Speci men Type: BLOOD SPECIMEN Ordering Facility: [facility] Address: [address] [place] [address] Performed By: #### 2 4321-2, 33645-3, 61961-6, 2275-4 #### [facility] CLIA [id number] [address] [place] [address] [place] Calcium [Mass/Vol] 8.5 mg/dL Normal 8.5-10.2 [facility] Comment on above: Order Comment: Speci men Type: BLOOD SPECIMEN Ordering Facility: [facility] Address: [address] [place] [address] Performed By: #### 2 4321-2, 96149-6, 70395-1, 2275-4 #### [facility] CLIA [id number] [address] [place] [address] [place] Chloride [Moles/Vol] 104 mmol/L Normal 98-107 [facility] Comment on above: Order Comment: Speci men Type: BLOOD SPECIMEN Order[facility] Facility: [facility] Address: [address] [place] [address] Performed By: #### 2 4321-2, 96429-8, 04485-5, 2275- #### [facility] CLIA [id number] [address] [place] CO2 [Moles/Vol] 29 mmol/L Normal 22-30 [facility] Comment on above: Order Comment: Speci men Type: BLOOD SPECIMEN Order[facility] Facility: [facility] Address: [address] [place] [address] Performed By: #### 2 4321-2, 71529-0, , 2275-05 #### [facility] CLIA [id number] [address] STATES [facility] Creatinine [Mass/Vol] 0.65 mg/dL Low 0.73-1.22 [facility] Comment on above: Order Comment: Speci men Type: BLOOD SPECIMEN Ordering Facility: [facility] Address: [address] [place] [address] Performed By: #### 2 4321-2, 83258-1, , 2275-05 #### [facility] CLIA [id number] [address] eGFRcr SerPlBld CKD-EPI 2020 100 mL/min/1.73m??? Normal >=60 [facility] Comment on above: Order Comment: Speci men Type: BLOOD SPECIMEN Order[facility]: [facility] Address: [address] [place] [address] Result Comment: Karon mated Glomerular Filtration Rate [...] actual GFR. Performed By: #### 2 4321-2, 10014-4, 75844-4, 2275-4 #### [facility] CLIA [id number] [address] [place] [address] [place] Glucose [Mass/Vol] 107 mg/dL High 74-99 [facility] Comment on above: Order Comment: Rody adams Type: BLOOD SPECIMEN Order[facility] Facility: [facility] Address: [address] [place], [place] [address] Result Comment: The [place] Diabetes Association (ADA) provides guidance for cutoff [...] Standards of Medical Care in Diabetes 2016, [place] [employer]. Diabetes Care. 2016.39(Suppl 1). Performed By: #### 2 4321-2, 92468-9, 12521-1, 2275-4 #### [facility] CLIA [id number] [address] [place] [address] [place] Phosphate [Mass/Vol] 2.7 mg/dL Normal 2.7-4.8 [facility] Comment on above: Order Comment: Rody adams Type: BLOOD SPECIMEN Ordering Facility: [facility] Address: [address] [place], [place] [address] Performed By: #### 2 4321-2, 30310-5, 68631-5, 2275-4 #### [facility] CLIA [id number] [address] [place] [address] [place] Potassium [Moles/Vol] 4.0 mmol/L Normal 3.7-5.1 [facility] Comment on above: Order Comment: Rody adams Type: BLOOD SPECIMEN Order[facility] Facility: [facility] Address: [address] [place], [place] [address] Performed By: #### 2 4321-2, 43009-7, 98272-4, 2275-4 #### [facility] CLIA [id number] [address] STATES [facility] Sodium [Moles/Vol] 140 mmol/L Normal 136-144 [facility] Comment on above: Order Comment: Vadimjoon adams Type: BLOOD SPECIMEN Order[facility] Facility: [facility] Address: [address] [place], [place] [address] Performed By: #### 2 4321-2, 95147-7, 92651-4, 6-4 #### [facility] CLIA [id number] [address] [place] Urea nitrogen [Mass/Vol] 9 mg/dL Normal 9-24 [facility] Comment on above: Order Comment: Rody bryan Type: BLOOD SPECIMEN [facility] Facility: [facility] Address: [address] [place] [address] Performed By: #### 2 4321-2, 72541-3, 67147-7, 6-4 #### [facility] CLIA [id number] [address] THERAPY NTon 11-02-2024 THERAPY NT HNO ID: [id number] Author: EVELYN PEARCE PT Service: Physical Therapy Author Type: Physical Therapist Type: Therapy (PT/OT/Speech/Resp) Filed: 11/02/2024 15:12 Note Text: -- Summary: PT evaluation -- Physical Therapy Evaluation Summary SERVICE DATE: 11/02/2024 SERVICE TIME: 1409 to 1439 ROOM: [place] [address] PT 6 Clicks Score: 17 DISCHARGE RECOMMENDATIONS [...] A for amb with FWW. unsafe. patient [place] and has a difficult time with cues. [...] consulted, plan for bronchoscopy and biopsy at [facility] 10/29 Relevant Past Medical History: [...] Reduced mobility-other TREATMENT INTERVENTIONS Evaluation, Therapeutic Activity (67714), Gait Training (49433) Timed Code Treatment (minutes): 15 Skilled Treatment Time (minutes): 30 $ Evaluation-Low (28759) Billed Units: 1 unit Therapeutic Activity (20357) Treatment Minutes: 10 $ Therapeutic Activity (88136) Billed Units: 1 unit Gait Training (19581) Treatment Minutes: 5 $ Gait Training (57215) Billed Units: 0 units Range of Motion: WFL Except, ROM Limitation Comments ROM Limitation Comments: right ankle DF to neutral Strength: WFL Except, Strength Limitation Comments Strength Limitation Comments: patient not able to follow commands for MMT due to very [place]. grossly at least 3-/5 per clinical judgement [...] Assistance, Additional In (more content not included)... [facility] CONSULT PROGon 11-01-2024 CONSULT PROG HNO ID: [id number] Author: KURT PEREIRA MD Service: Infectious Disease [...] been malignant. Plan on performing bronchoscopy/EBUS at [facility] on 10/29. Stop piperacillin tazobactam [...] reviewed Imaging data: reviewed Kurt Pereira MD [phone] 11/01/2024 10:33 AM Normal [facility] Folate SerPl-mCncon 11-02-19 25 Folate [Mass/Vol] 2.8 ng/mL Low >4.7 [facility] Comment on above: Order Comment: Speci men Type: BLOOD SPECIMENOrdering Facility: [facility] Address: [address] [place] [address] Performed By: #### 2 132-9, 2284-8 ####[facility] [id number] [place], [place] [address] [place] [address] [facility] NUTRITIONon 11-01-2024 NUTRITION HNO ID: [id number] Author: CRISTOPHER PAREDES RD Service: Nutrition Therapy [...] November 01, 2024 TIME: 12:28 PM Normal [facility] Vit B12 SerPl-mCncon 025 Cobalamin (Vitamin B12) [Mass/Vol] 468 pg/mL Normal 232-1245 [facility] Comment on above: Order Comment: Speci men Type: BLOOD SPECIMENOrdering Facility: [facility] Address: [address] [place] [address] Performed By: #### 2 132-9, 2284-8 ####[facility] [id number] [address] [facility] CONSULTon 10-31-2024 CONSULT HNO ID: [id number] Author: RADHA GARCÍA APRN.CNP Service: Hematology/Oncology Author [...] may be reactive. Patient was admitted to [facility] for further work-up and management and hematology oncology has been consulted for recurrent lung cancer. PAST MEDICAL HISTORY Diagnosis Date Abdominal aortic aneurysm without rupture Elevated PSA Hearing loss HTN (hypertension) Lumbosacral neuritis Malignant neoplasm of prostate (HCC) Other and unspecified hyperlipidemia Prostate cancer (HCC) 2020 xrt at [facility] [place] Smoker former quit 2021 Spinal stenosis of [...] PHYSICAL EXAM: GENERAL: No acute distress. AANDO. [place] HEENT: Normocephalic, atraumatic. Normal conjunctiva, no scleral icterus. No mouth sores or thrush. LUNGS: Normal respiratory effort. Clear t (more content not included)... Normal [facility] CONSULT PROGon 10-31-2024 CONSULT PROG HNO ID: [id number] Author: KURT PEREIRA MD Service: Infectious Disease [...] been malignant. Plan on performing bronchoscopy/EBUS at [facility] on 10/29. Will continue with [...] reviewed Imaging data: reviewed Kurt Pereira MD [phone] 10/31/2024 7:53 AM [facility] CONSULT PROGon 10-30-2024 CONSULT PROG HNO ID: [id number] Author: KURT PEREIRA MD Service: Infectious Disease [...] been malignant. Plan on performing bronchoscopy/EBUS at [facility] on 10/29. Will continue with [...] reviewed Imaging data: reviewed Kurt Pereira MD [phone] 10/30/2024 7:53 AM [facility] THERAPY NTon 10-30-2024 THERAPY NT HNO ID: [id number] Author: ALEX LEWIS OTR/Umberto Service: Occupational Therapy Author Type: Occupational Therapist Type: Therapy (PT/OT/Speech/Resp) Filed: 10/30/2024 16:08 Note Text: -- Summary: OT eval -- Occupational Therapy Evaluation Summary SERVICE DATE: 10/30/2024 SERVICE TIME: 1455 to 1522 ROOM: [id number]-4T-0838- OT 6 Clicks Score: 19 DISCHARGE RECOMMENDATIONS [...] consulted, plan for bronchoscopy and biopsy at [facility] 10/29 Relevant Past Medical History: [...] + driving SUBJECTIVE Patient supine in bed [place] agreeable to OT COGNITION Responsiveness: Alert, Awake Follows Commands: Cueing Needed Cueing to Follow Commands: Minimum THERAPY DIAGNOSIS Reduced mobility-other, Decreased activities of daily living (ADL), Muscle Weakness (generalized), General symptoms and signs-other TREATMENT INTERVENTIONS Evaluation, Self Senior Care Management (29170) Timed Code Treatment (minutes): 12 Skilled Treatment [...] for Next (more content not included)... [facility] Normal [facility] ANES POSTPROC EVALon 025 ANES POSTPROC EVAL Normal [facility] ANES PRE-OPon 10-29-2024 ANES PRE-OP Normal [facility] ASPERGILLUS GALACTOMANNAN BA Rex 10-29-2024 ASPER. AG BAL,QUAL Negative Normal Negative [facility] Comment on above: Order Comment: Speci men Type: SPECIMEN OBTAINED BY LAVAGEOrdering Facility: [facility] Address: [address] [place] [address] Result Comment: Aspe rgillus Galactomannan antigen assay [...] is required. Performed By: #### A SGALB ####[facility] LABCLIA [id number] [address] [place] [address] [facility] ASPERGILLUS GALACTOMANNAN 0.04 Index Value Normal <=0.49 [facility] Comment on above: Order Comment: Speci men Type: SPECIMEN OBTAINED BY LAVAGEOrdering Facility: [facility] Address: [address] [place] [address] Performed By: #### A SGALB ####[facility] LABCLIA [id number] [address], [facility] [place] BAL MANUAL DIFFon 10-29-2024 DIF TTL, BA LAVAGE 100 cells counted Normal [facility] Comment on above: Order Comment: Speci men Type: SPECIMEN OBTAINED BY LAVAGEOrdering Facility: [facility] Address: [address] [place] [address] Performed By: #### L [id number], BALAVI ####[facility] LABCLIA [id number] [place] [address] [place] MACRO%, BA LAVAGE 4 % Normal [facility] Comment on above: Order Comment: Speci men Type: SPECIMEN OBTAINED BY LAVAGEOrdering Facility: [facility] Address: [address] [place] [address] Performed By: #### L [id number], BALAVI ####[facility] LABCLIA [id number] [address] [address] [place] NEUT%, BA LAVAGE 96 % Normal [facility] Comment on above: Order Comment: Speci men Type: SPECIMEN OBTAINED BY LAVAGEOrdering Facility: [facility] Address: [address] [place], [place] [address] Performed By: #### L [id number], BALAVI ####[facility] LABCLIA [id number] [address], [facility] [place] BAL ROUTINE BFLon 10-29-2024 BAL COMMENT Clumped on chamber Normal [facility] Comment on above: Order Comment: Speci men Type: SPECIMEN OBTAINED BY LAVAGEOrdering Facility: [facility] Address: [address] [place] [address] Performed By: #### L [id number], BALAVI ####[facility] LABCLIA [id number] [place] [address] [place] Clarity (Unsp spec) Cloudy Abnormal Clear [facility] Comment on above: Order Comment: Speci men Type: SPECIMEN OBTAINED BY LAVAGEOrdering Facility: [facility] Address: [address] [place] [address] Performed By: #### L [id number], BALAVI ####[facility] LABCLIA [id number] [place] [address] [place] Color (Bronch spec) Slightly bloody Abnormal Colorless [facility] Comment on above: Order Comment: Speci men Type: SPECIMEN OBTAINED BY LAVAGEOrdering Facility: [facility] Address: [address] [place] [address] Performed By: #### L [id number], BALAVI ####[facility] LABCLIA [id number] [place] [address] [place] RBC LM.HPF (BAL) [#/Area] 9896 /uL Normal Reference range not established. [facility] Comment on above: Order Comment: Speci men Type: SPECIMEN OBTAINED BY LAVAGEOrdering Facility: [facility] Address: [address] [place] [address] Result Comment: Resu lts verified by dilution. Performed By: #### L [id number], BALAVI ####[facility] LABCLIA [id number] [place] [id number] [place] WBC Manual cnt (Bronch spec) [#/Vol] 3071 /uL Normal Reference range not established. [facility] Comment on above: Order Comment: Speci men Type: SPECIMEN OBTAINED BY LAVAGEOrdering Facility: [facility] Address: [address] [place] [address] Result Comment: Resu lts verified by dilution. Performed By: #### L [id number], BALAVI ####[facility] LABCLIA [id number] [address] [id number], [place] [address] [place] Bacteria BAL Aerobe Culton 0 10-29-2024 Bacteria identified Aer cx Nom (BAL) ORGANISM ID: 1 2,000 CFU/mL Escherichia coli Refer to specimen collected on 10/29/2024 at 1146 [[id number]] GRAM STAIN: No organisms seen Few Polymorphonuclear leukocytes Abnormal [facility] Comment on above: Performed By: #### 4 3441-5, 580-1 ####[facility] LABCLIA [id number] [facility] [address] [place] [address] [place] Bacteria Spec Anaerobe Culto n 10-29-2024 Bacteria identified Anaer cx Nom (Unsp spec) Negative Normal [facility] Comment on above: Performed By: #### 6 35-3, 36835-9, 55778-1 ####[facility] LABCLIA [id number] [address] [facility]ILL[facility] [address] [place] [address] [place] Bacteria Spec Resp Culton Bacteria identified Respiratory culture Nom (Unsp spec) Abnormal [facility] Comment on above: Performed By: #### 3 2355-0, 83428-6 ####[facility] LABCLIA [id number] [facility] [address] [place] [address] [place] Bacteria Tiss Culton 025 Bacteria identified Cx Nom (Tiss) Abnormal [facility] Comment on above: Performed By: #### 6 35-3, 65587-7, 74993-4 ####[facility] LABCLIA [id number] [address] [facility] [id number], [place] [address] [place] Bronchoscopyon 10-29-2024 Bronchoscopy Normal [facility] CONSULT PROGon 10-29-2024 CONSULT PROG HNO ID: [id number] Author: KURT PEREIRA MD Service: Infectious Disease Author Type: Physician Type: Consult Progress Note Filed: 10/29/2024 11:54 Note Text: INFECTIOUS DISEASE PROGRESS NOTE Patient Name: Stevie Sanchez INTERVAL HISTORY: Going to [facility] main for Bronch today w BRAXTON. Cough [...] been malignant. Plan on performing bronchoscopy/EBUS at [facility] on 10/29. Will continue with [...] reviewed Imaging data: reviewed Kurt Pereira MD [phone] 10/29/2024 7:53 AM Normal [facility] CYTOLOGY NON-GYNon ADEQUACY INTERPRETATION Normal [facility] Comment on above: Order Comment: Speci men Type: SPECIMEN OBTAINED BY ASPIRATIONOrdering Facility: [facility] Address: [address] [place] [address] Result Comment: A: # 1-2: Suspicious for [...] a discrete evaluation episode.Intra-[place] [address] Performed By: #### C GALI ####[facility] LABCLIA [id number] [place] [address] [place] AP DISCLAIMER Normal [facility] Comment on above: Order Comment: Speci men Type: SPECIMEN OBTAINED BY ASPIRATIONOrdering Facility: [facility] Address: [address] [place] [address] Result Comment: Everett davey Developed Test (LDT) Disclaimer:Performance characteristics of immunohistochemical, immunofluorescent, and chromogenic in-situ hybridization tests have been determined by the performing laboratory within the [facility] Department of Pathology and Laboratory Medicine ([facility], [facility], [facility], [facility], [facility], [facility], or [facility]) in a manner consistent with CLIA requirements. One or more of these tests may not have been cleared or approved by the FDA. The [facility] Department of Pathology and Laboratory Medicine is regulated under CLIA as qualified to perform high-complexity testing. These tests are used for clinical purposes. These should not be regarded as investigational or for research. Positive and negative controls stain appropriately. Performed By: #### C YTONON ####[facility] LABCLIA [id number] [place] [address] [place] CASE REPORT Normal [facility] Comment on above: Order Comment: Speci men Type: SPECIMEN OBTAINED BY ASPIRATIONOrdering Facility: [facility] Address: [address] [place] [address] Result Comment: [facility] Cytology Report Case: [id number] Provider: Siddharth Martinez MD Collected: 10/29/2024 11:54 [...] lobe consolidation Performed By: #### C YTONON ####[facility] LABCLIA [id number] [place] [address] [place] 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 Normal [facility] Comment on above: Order Comment: Speci men Type: SPECIMEN OBTAINED BY ASPIRATIONOrdering Facility: [facility] Address: [address] [place] [address] Performed By: #### C YTONON ####[facility] LABCLIA [id number] [address] [address] [place] DIAGNOSIS COMMENT Normal [facility] Comment on above: Order Comment: Speci men Type: SPECIMEN OBTAINED BY ASPIRATIONOrdering Facility: [facility] Address: [address] [place] [address] Performed By: #### C YTONON ####[facility] LABIA [id number] [address] STATES OF [facility] FINAL DIAGNOSIS Normal [facility] Comment on above: Order Comment: Speci men Type: SPECIMEN OBTAINED BY ASPIRATIONOrdering Facility: [facility] Address: [address] [place] [address] Result Comment: A - Lung, Right Lower [...] 1605 EDT Performed By: #### C YTONON ####[facility] LABCLIA [id number] [place] [address] [place] FINAL PERFORMING LAB Normal [facility] Comment on above: Order Comment: Speci men Type: SPECIMEN OBTAINED BY ASPIRATIONOrdering Facility: [facility] Address: [address] [place] [address] Result Comment: Tech nical component, cloth washer operator screening performed at: [facility], [address] [place], [place] [id number] CLIA: [id number] interpretation performed at: [facility], [address] [place] [address] CLIA# [id number] Director: Ike Reaves MD Performed By: #### C YTONON ####[facility] LABCLIA [id number] [address] [place] GROSS DESCRIPTION Normal [facility] Comment on above: Order Comment: Speci men Type: SPECIMEN OBTAINED BY ASPIRATIONOrdering Facility: [facility] Address: [address] [place] [address] Result Comment: A. L jill, Right Lower Lobe, Novmhhhfktwxya71 cc clear colorless CytoLyt with scant particles. ThinPrep and Cell Block prepared and 4 smears (2 air dried and 2 fixed).B. Lung, Right Upper Lobe, Bttzhtxegmgeyn64 cc cloudy pink CytoLyt with material. ThinPrep and Cell Block prepared and 6 smears (3 air dried and 3 fixed).C. Lymph Node, Nznvrlgajeejop20 cc clear pink CytoLyt with material. ThinPrep and Cell Block prepared and 4 smears (2 air dried and 2 fixed).D. Lymph Node, Ehkrfgzwzxpggt53 cc clear pink CytoLyt with material. ThinPrep and Cell Block prepared and 4 smears (2 air dried and 2 fixed).E. Lymph Node, Lqefdgudtdimnb16 cc clear pink CytoLyt with material. ThinPrep and Cell Block prepared and 6 smears (3 air dried and 3 fixed).F. Lymph Node, Dpijyefojpxcxs00 cc clear pink CytoLyt with material. ThinPrep and Cell Block prepared and 4 smears (2 air dried and 2 fixed).G. Lung, Right Upper Lobe, Meqktgcwqgbhxa10 cc clear red CytoLyt with material. ThinPrep and Cell Block prepared and 4 smears (2 air dried and 2 fixed). Performed By: #### C YTONON ####[facility] LABCLIA [id number] [place] [address] [place] ORDER COMMENT Normal [facility] Comment on above: Order Comment: Speci men Type: SPECIMEN OBTAINED BY ASPIRATIONOrdering Facility: [facility] Address: [address] [place] [address] Result Comment: Pre- op diagnosis:Bronchiolar disease [J98.09] Performed By: #### C YTONON ####[facility] LABCLIA [id number] [place] [address] [place] Fungus Spec Culton Fungus identified Cx Nom (Unsp spec) CULTURE, FUNGAL: No Fungus isolated after 28 days Normal [facility] Comment on above: Performed By: #### 4 3441-5, 580-1 ####[facility] LABCLIA [id number] [place] [address] [place] L. pneumophila DNA WENDY+probe Ql (Unsp spec)on 10-29-2024 Legionella spp Spec Ql WENDY+probe Not detected Normal Not detected [facility] Comment on above: Order Comment: Speci men Type: SPECIMEN OBTAINED BY LAVAGEOrdering Facility: [facility] Address: [address] [place] [address] Performed By: #### 2 1363-7 ####[facility] LABCLIA [id number] [place] [address] [place] Microorganism Spec Culton Microorganism identified Cx Nom (Unsp spec) CULTURE, FUNGAL: No Fungus isolated after 28 days FUNGAL SMEAR: No fungus seen Normal [facility] Comment on above: Performed By: #### 6 35-3, 79495-8, 96402-2 ####[facility] LABCLIA [id number] [address] [place] [address] [place] Microorganism identified Cx Nom (Unsp spec) CULTURE, FUNGAL: No Fungus isolated after 28 days FUNGAL SMEAR: No fungus seen Normal [facility] Comment on above: Performed By: #### 3 2355-0, 82560-4 ####[facility] LABCLIA [id number] [address] [place] [address] [place] PD-L1 22C3on 10-29-2024 AP BIOMARKER DISCLAIMER Normal [facility] Comment on above: Order Comment: Speci men Type: TISSUE SPECIMENOrdering Facility: [facility] Address: [address] [place] [address] Result Comment: Everett davey Developed Test (LDT) Disclaimer:Performance characteristics of immunohistochemical, immunofluorescent and chromogenic in-situ hybridization tests have been determined by the performing laboratory within [facility]???[facility] Pathology and Laboratory Medicine Department ([facility], [facility], [facility], [facility], [facility], [facility], or [facility]) in a manner consistent with CLIA requirements. One or more of these tests have not been cleared or approved by the FDA. [facility] is regulated under CLIA as qualified to perform high-complexity testing. These tests are used for clinical purposes. They should not be regarded as investigational or for research. Positive and negative controls stain appropriately. Performed By: #### L [id number] ####[facility] LABCLIA [id number] [address] [place] [address] [place] AP BLOCK ID A1 Normal [facility] Comment on above: Order Comment: Speci men Type: TISSUE SPECIMENOrdering Facility: [facility] Address: [address] [place] [address] Performed By: #### L [id number] ####[facility] LABCLIA [id number] [address] [id number], [place] [address] [place] BIOMARKER INTERPRETATION COMMENT AND REFERENCE RANGE Normal [facility] Comment on above: Order Comment: Speci men Type: TISSUE SPECIMENOrdering Facility: [facility] Address: [address] [place] [address] Result Comment: Inte rpretation standard:TPS: The Tumor [...] the Product label for additional information.KEYTRUDA - (https://www.Bespoke GlobaltrReferMe.com/prescribing-information/)LIBTAYO - (https://www.[employer]/sites/default/files/Libtayo_FPI.pdf) Performed By: #### L [id number] ####[facility] LABCLIA [id number] [address] BIOMARKER METHOD Normal [facility] Comment on above: Order Comment: Speci men Type: TISSUE SPECIMENOrdering Facility: [facility] Address: [address] [place] [address] Performed By: #### L [id number] ####[facility] LABCLIA [id number] [address] CASE NUMBER PD-L1 [id number] Normal [facility] Comment on above: Order Comment: Speci men Type: TISSUE SPECIMENOrdering Facility: [facility] Address: [address] [place] [address] Performed By: #### L [id number] ####[facility] LABCLIA [id number] [address] [place] FINAL PERFORMING LAB Normal [facility] Comment on above: Order Comment: Speci men Type: TISSUE SPECIMENOrdering Facility: [facility] Address: [address] [place], [place] [address] Result Comment: Diag nostic interpretation performed at: [facility], [address] [place] [address] [place] [address] CLIA# [id number] Director: Ike Reaves MDElectronically signed out by: Alexis Altman MD Performed By: #### L [id number] ####[facility] LABCLIA [id number] [address] [place] [address] [place] Result Comment: Diag nostic interpretation performed at: [facility], [address] [place] [address] [place] [address] CLIA# [id number] Director: Ike Reaves MD Performed By: #### 6 6121-5 ####[facility] LABCLIA [id number] [address] [place] [address] [place] FIXATIVE Normal [facility] Comment on above: Order Comment: Speci men Type: TISSUE SPECIMENOrdering Facility: [facility] Address: [address] [place] [address] Performed By: #### L [id number] ####[facility] LABCLIA [id number] [address] [place] [address] [place] PD-L1 22C3 TPS (LUNG) INTERPRETATION Negative Normal [facility] Comment on above: Order Comment: Speci men Type: TISSUE SPECIMENOrdering Facility: [facility] Address: [address] [place], [place] [address] Performed By: #### L [id number] ####[facility] LABCLIA [id number] [address] [place] [address] [place] PD-L1 TUMOR TYPE Other (See Comment) Normal [facility] Comment on above: Order Comment: Speci men Type: TISSUE SPECIMENOrdering Facility: [facility] Address: [address] [place] [address] Result Comment: See original report Performed By: #### L [id number] ####[facility] LABCLIA [id number] [address] STATES [place] TUMOR PROPORTION SCORE (TPS) <1 Normal [facility] Comment on above: Order Comment: Speci men Type: TISSUE SPECIMENOrdering Facility: [facility] Address: [address] [place] [address] Performed By: #### L [id number] ####[facility] LABCLIA [id number] [address] [place] PNEUMOCYSTIS JIROVECII PCRon 10-29-2024 P. jiroveci DNA WENDY+probe (Unsp spec) [#/Vol] Not detected Normal Pneumocystis jirovecii Not Detected by PCR [facility] Comment on above: Order Comment: Speci men Type: SPECIMEN OBTAINED BY LAVAGEOrdering Facility: [facility] Address: [address] [place] [address] Performed By: #### P JPCR ####[facility] LABIA [id number] [address] OF [place] Pathology biopsy report Rikki (Tiss)on 10-29-2024 AP DISCLAIMER Normal [facility] Comment on above: Order Comment: Speci men Type: TISSUE SPECIMENOrdering Facility: [facility] Address: [address] [place] [address] Result Comment: Everett davey Developed Test (LDT) Disclaimer:Performance characteristics of immunohistochemical, immunofluorescent, and chromogenic in-situ hybridization tests have been determined by the performing laboratory within the [facility] Department of Pathology and Laboratory Medicine ([facility], [facility], [facility], [facility], [facility], [facility], or [facility]) in a manner consistent with CLIA requirements. One or more of these tests may not have been cleared or approved by the FDA. The [facility] Department of Pathology and Laboratory Medicine is regulated under CLIA as qualified to perform high-complexity testing. These tests are used for clinical purposes. These should not be regarded as investigational or for research. Positive and negative controls stain appropriately. Performed By: #### 6 6121-5 ####[facility] LABIA [id number] [address] OF [place] CASE REPORT Normal [facility] Comment on above: Order Comment: Speci men Type: TISSUE SPECIMENOrdering Facility: [facility] Address: [address] [place] [address] Result Comment: [facility] Pathology Report Case: [id number] Provider: Siddharth Martinez MD Collected: 10/29/2024 12:02 PMOrdering Location: Admitting Received: 10/29/2024 06:38 PMPathologist: Alexis Altman MDSpecimens: A) - Bronchus, Biopsy, RLL EBBX B) - Bronchus, Biopsy, RUL TBBX Performed By: #### 6 6121-5 ####[facility] [id number] [address] STATES [place] CLINICAL HISTORY Normal [facility] Comment on above: Order Comment: Rody adams Type: TISSUE SPECIMENOrdering Facility: [facility] Address: [address] [place] [address] Result Comment: Pre- op diagnosis: 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 RLL endobronchial disease at stump. Purulent secretison from RUL. Performed By: #### 6 6121-5 ####[facility] [id number] [address] OF [place] DIAGNOSIS COMMENT Normal [facility] Comment on above: Order Comment: Rody adams Type: TISSUE SPECIMENOrdering Facility: [facility] Address: [address] [place] [address] Result Comment: Immu nostains for keratin AE1/AE3, p40 and SMA were performed on B1: Keratin AE1/AE3 highlights preserved degenerated atypical cells that are negative for p40 and SMA.GMS stain was performed on B1: No fungal organisms were identified. Performed By: #### 6 6121-5 ####[facility] [id number] [place] [address] [place] FINAL DIAGNOSIS Normal [facility] Comment on above: Order Comment: Speci men Type: TISSUE SPECIMENOrdering Facility: [facility] Address: [address] [place] [address] Result Comment: A. L jill, right lower lobe, endobronchial biopsy:-Keratinizing squamous cell carcinoma.B. Lung, right upper lobe, transbronchial biopsy:-Necroinflammatory exudate, and occasional scattered degenerated, poorly preserved atypical epithelial cells (see comment).-Bronchial mucosa, granulation tissue, rare multinucleated giant cells, (see comment), at 1745 EDT Performed By: #### 6 6121-5 ####[facility] [id number] [place] [address] [place] GROSS DESCRIPTION Normal [facility] Comment on above: Order Comment: Speci men Type: TISSUE SPECIMENOrdering Facility: [facility] Address: [address] [place] [address] Result Comment: A. B ronchus, BiopsyReceived in formalin are multiple pieces of clark-red, soft tissue aggregating to 0.9 x 0.5 x 0.2 cm. Totally submitted in cassette A1.B. Bronchus, BiopsyReceived in formalin are multiple pieces of clark-brown, soft tissue aggregating to 2.7 x 0.5 x 0.2 cm. Totally submitted in cassette B1.DL 10/29/24 8:03 PM. Gross examination performed at [facility], [address] [place] [address]. [place] [address] Performed By: #### 6 6121-5 ####[facility] LABIA [id number] [place] [address] [place] Respiratory pathogens DNA an d RNA panel WENDY+probe (Nph)on 10-29-2024 Adenovirus hexon gene WENDY+probe Ql (Nph) Not detected Normal Not detected [facility] Comment on above: Order Comment: Speci men Type: SPECIMEN OBTAINED BY LAVAGEOrdering Facility: [facility] Address: [address] [place] [address] Performed By: #### 7 8922-2 ####[facility] LABCLIA [id number] [place] [address] [place] C. pneumoniae DNA WENDY+probe Ql (Unsp spec) Not detected Normal Not detected [facility] Comment on above: Order Comment: Speci men Type: SPECIMEN OBTAINED BY LAVAGEOrdering Facility: [facility] Address: [address] [place] [address] Performed By: #### 7 8922-2 ####[facility] LABCLIA [id number] [place] [address] [place] FLUAV RNA WENDY+probe Ql (Unsp spec) Not detected Normal Not detected [facility] Comment on above: Order Comment: Speci men Type: SPECIMEN OBTAINED BY LAVAGEOrdering Facility: [facility] Address: [address] [place] [address] Performed By: #### 7 8922-2 ####[facility] LABCLIA [id number] [place] [address] [place] FLUBV RNA WENDY+probe Ql (Unsp spec) Not detected Normal Not detected [facility] Comment on above: Order Comment: Speci men Type: SPECIMEN OBTAINED BY LAVAGEOrdering Facility: [facility] Address: [address] [place] [address] Performed By: #### 7 8922-2 ####[facility] LABCLIA [id number] [place] [address] [place] HCoV 229E+OC43 RNA WENDY+probe Ql (Nph) Not detected Normal Not detected [facility] Comment on above: Order Comment: Speci men Type: SPECIMEN OBTAINED BY LAVAGEOrdering Facility: [facility] Address: [address] [place] [address] Performed By: #### 7 8922-2 ####[facility] LABIA [id number] [place] [address] [place] HCoV HKU1 RNA WENDY+probe Ql (Unsp spec) Not detected Normal Not detected [facility] Comment on above: Order Comment: Speci men Type: SPECIMEN OBTAINED BY LAVAGEOrdering Facility: [facility] Address: [address] [place] [address] Performed By: #### 7 8922-2 ####[facility] LABIA [id number] [place] [address] [place] HCoV NL63 RNA WENDY+non-probe Ql (Nph) Not detected Normal Not detected [facility] Comment on above: Order Comment: Speci men Type: SPECIMEN OBTAINED BY LAVAGEOrdering Facility: [facility] Address: [address] [place] [address] Performed By: #### 7 8922-2 ####[facility] LABIA [id number] [place] [address] [place] HCoV OC43 RNA WENDY+probe Ql (Unsp spec) Not detected Normal Not detected [facility] Comment on above: Order Comment: Speci men Type: SPECIMEN OBTAINED BY LAVAGEOrdering Facility: [facility] Address: [address] [place] [address] Performed By: #### 7 8922-2 ####[facility] LABCLIA [id number] [place] [address] [place] hMPV RNA WENDY+probe Ql (Unsp spec) Not detected Normal Not detected [facility] Comment on above: Order Comment: Speci men Type: SPECIMEN OBTAINED BY LAVAGEOrdering Facility: [facility] Address: [address] [place] [address] Performed By: #### 7 8922-2 ####[facility] LABCLIA [id number] [place] [address] [place] M. pneumoniae DNA WENYD+probe Ql (Unsp spec) Not detected Normal Not detected [facility] Comment on above: Order Comment: Speci men Type: SPECIMEN OBTAINED BY LAVAGEOrdering Facility: [facility] Address: [address] [place] [address] Performed By: #### 7 8922-2 ####[facility] LABCLIA [id number] [place] [address] [place] Parainfluenza virus 1 RNA WENDY+probe Ql (Unsp spec) Not detected Normal Not detected [facility] Comment on above: Order Comment: Speci men Type: SPECIMEN OBTAINED BY LAVAGEOrdering Facility: [facility] Address: [address] [place] [address] Performed By: #### 7 8922-2 ####[facility] LABCLIA [id number] [place] [address] [place] Parainfluenza virus 2 RNA WENDY+probe Ql (Unsp spec) Not detected Normal Not detected [facility] Comment on above: Order Comment: Speci men Type: SPECIMEN OBTAINED BY LAVAGEOrdering Facility: [facility] Address: [address] [place] [address] Performed By: #### 7 8922-2 ####[facility] LABCLIA [id number] [place] [address] [place] Parainfluenza virus 3 RNA WENDY+probe Ql (Unsp spec) Not detected Normal Not detected [facility] Comment on above: Order Comment: Speci men Type: SPECIMEN OBTAINED BY LAVAGEOrdering Facility: [facility] Address: [address] [place] [address] Performed By: #### 7 8922-2 ####[facility] LABCLIA [id number] [place] [id number] [place] Parainfluenza virus 4 P gene WENDY+probe Ql (Nph) Not detected Normal Not detected [facility] Comment on above: Order Comment: Speci men Type: SPECIMEN OBTAINED BY LAVAGEOrdering Facility: [facility] Address: [address] [place] [address] Performed By: #### 7 8922-2 ####[facility] LABCLIA [id number] [place] [address] [place] Rhinovirus 5' UTR RNA WENDY+probe Ql (Nph) Not detected Normal Not detected [facility] Comment on above: Order Comment: Speci men Type: SPECIMEN OBTAINED BY LAVAGEOrdering Facility: [facility] Address: [address] [place] [address] Performed By: #### 7 8922-2 ####[facility] LABIA [id number] [place] [address] [place] RSV RNA WENDY+probe Ql (Upper resp) Not detected Normal Not detected [facility] Comment on above: Order Comment: Speci men Type: SPECIMEN OBTAINED BY LAVAGEOrdering Facility: [facility] Address: [address] [place] [address] Performed By: #### 7 8922-2 ####[facility] LABIA [id number] [address] [place] SARS-CoV-2 (COVID-19) RNA WENDY+probe Ql (Unsp spec) Not detected Normal See comment [facility] Comment on above: Order Comment: Speci men Type: SPECIMEN OBTAINED BY LAVAGEOrdering Facility: [facility] Address: [address] [place] [address] Performed By: #### 7 8922-2 ####[facility] LABIA [id number] [place] [address] [place] Basic metabolic 2000 panelon 10-28-2024 Anion gap [Moles/Vol] 10 mmol/L Normal 8-15 [facility] Comment on above: Order Comment: Speci men Type: BLOOD SPECIMEN [facility] Address: [address] [place] [address] Performed By: #### 2 4321-2, 77535-4, 93581-6, 6-4 #### [facility] CLIA [id number] 1000 [place] [address] [place] Calcium [Mass/Vol] 8.7 mg/dL Normal 8.5-10.2 [facility] Comment on above: Order Comment: Speci men Type: BLOOD SPECIMEN [facility] Address: [address] [place] [address] Performed By: #### 2 4321-2, 60695-8, 44787-6, 2275-4 #### [facility] CLIA [id number] [address] [place] [address] [place] Chloride [Moles/Vol] 107 mmol/L Normal 98-107 [facility] Comment on above: Order Comment: Speci men Type: BLOOD SPECIMEN [facility] Address: [address] [place] [address] Performed By: #### 2 4321-2, 33902-9, 35190-2, 2275-4 #### [facility] CLIA [id number] [address] [place] [address] [place] CO2 [Moles/Vol] 24 mmol/L Normal 22-30 [facility] Comment on above: Order Comment: Speci men Type: BLOOD SPECIMEN [facility] Address: [address] [place] [address] Performed By: #### 2 4321-2, 77802-2, 64192-6, 2275-4 #### [facility] CLIA [id number] [address] [place] [address] [place] Creatinine [Mass/Vol] 0.78 mg/dL Normal 0.73-1.22 [facility] Comment on above: Order Comment: Speci men Type: BLOOD SPECIMEN [facility] Address: [address] [place] [address] Performed By: #### 2 4321-2, 08367-7, 82689-6, 6-4 #### [facility] CLIA [id number] [address] [place] eGFRcr SerPlBld CKD-EPI 2020 95 mL/min/1.73m??? Normal >=60 [facility] Comment on above: Order Comment: Rody adams Type: BLOOD SPECIMEN [facility] Address: [address] [place] [address] Result Comment: Karon mated Glomerular Filtration Rate [...] actual GFR. Performed By: #### 2 4321-2, 22793-5, 87612-8, 2275-05 #### [facility] CLIA [id number] [address] [place] [address] [place] Glucose [Mass/Vol] 117 mg/dL High 74-99 [facility] Comment on above: Order Comment: Rody adams Type: BLOOD SPECIMEN [facility] Address: [address] [place] [address] Result Comment: The [place] [employer] (ADA) provides guidance for cutoff [...] Standards of Medical Care in Diabetes 2016, [place] [employer]. Diabetes Care. 2016.39(Suppl 1). Performed By: #### 2 4321-2, 68177-6, 60934-2, 2275- #### [facility] CLIA [id number] [address] [place] [address] [place] Potassium [Moles/Vol] 3.7 mmol/L Normal 3.7-5.1 [facility] Comment on above: Order Comment: Speci men Type: BLOOD SPECIMEN [facility] Address: [address] [place] [address] Performed By: #### 2 4321-2, 28975-6, 78727-9, 2275-4 #### [facility] CLIA [id number] [address] [place] Sodium [Moles/Vol] 141 mmol/L Normal 136-144 [facility] Comment on above: Order Comment: Speci men Type: BLOOD SPECIMEN [facility] Address: [address] [place] [address] Performed By: #### 2 4321-2, 67551-8, 77952-8, 2275- #### [facility] CLIA [id number] [address] [place] Urea nitrogen [Mass/Vol] 9 mg/dL Normal 9-24 [facility] Comment on above: Order Comment: Speci men Type: BLOOD SPECIMEN [facility] Address: [address] [place] [address] Performed By: #### 2 4321-2, 23821-4, 15984-0, 2275-05 #### [facility] CLIA [id number] [address] CBC panel Auto (Bld)on 10-28 Erythrocyte distribution width (RBC) [Ratio] 14.6 % Normal 11.5-15.0 [facility] Comment on above: Order Comment: Speci men Type: BLOOD SPECIMEN [facility] Address: [address] [place] [address] Performed By: #### 2 4321-2, 00458-7, 04289-5, 2275-4 #### [facility] CLIA [id number] [address] Hematocrit (Bld) [Volume fraction] 35.4 % Low 39.0-51.0 [facility] Comment on above: Order Comment: Speci men Type: BLOOD SPECIMEN [facility] Address: [address] [place] [address] Performed By: #### 2 4321-2, 34692-8, 11802-6, 2275-4 #### [facility] CLIA [id number] [address] [facility] Hemoglobin (Bld) [Mass/Vol] 11.6 g/dL Low 13.0-17.0 [facility] Comment on above: Order Comment: Speci men Type: BLOOD SPECIMEN [facility] Address: [address] [place] [address] Performed By: #### 2 4321-2, 63749-2, 39543-5, 2275-4 #### [facility] CLIA [id number] [address] [place] MCH (RBC) [Entitic mass] 31.0 pg Normal 26.0-34.0 [facility] Comment on above: Order Comment: Speci men Type: BLOOD SPECIMEN [facility] Address: [address] [place] [address] Performed By: #### 2 4321-2, 64032-7, 77490-4, 2275-05 #### [facility] CLIA [id number] [address] [facility] MCHC (RBC) [Mass/Vol] 32.8 g/dL Normal 30.5-36.0 [facility] Comment on above: Order Comment: Speci men Type: BLOOD SPECIMEN [facility] Address: [address] [place], [place] [address] Performed By: #### 2 4321-2, 42229-1, 15706-6, 4 #### [facility] CLIA [id number] [address] [facility] MCV (RBC) [Entitic vol] 94.7 fL Normal 80.0-100.0 [facility] Comment on above: Order Comment: Speci men Type: BLOOD SPECIMEN [facility] Address: [address] [place] [address] Performed By: #### 2 4321-2, 97050-0, 94564-5, 2275-4 #### [facility] CLIA [id number] 1000 [place] [address] [place] Nucleated RBC (Bld) [#/Vol] 10*3/uL Normal <0.01 [facility] Comment on above: Order Comment: Speci men Type: BLOOD SPECIMEN [facility] Address: [address] [place] [address] Performed By: #### 2 4321-2, 02215-7, 39878-2, 2275-4 #### [facility] CLIA [id number] 1000 [place] [address] [place] Platelet mean volume (Bld) [Entitic vol] 8.6 fL Low 9.0-12.7 [facility] Comment on above: Order Comment: Speci men Type: BLOOD SPECIMEN [facility] Address: [address] [place] [address] Performed By: #### 2 4321-2, 61937-7, 85030-1, 2275- #### [facility] CLIA [id number] [address] [place] [address] [place] Platelets (Bld) [#/Vol] 394 10*3/uL Normal 150-400 [facility] Comment on above: Order Comment: Speci men Type: BLOOD SPECIMEN [facility] Address: [address] [place] [address] Performed By: #### 2 4321-2, 96521-7, 18398-6, 2275-4 #### [facility] CLIA [id number] 1000 [place] [address] [place] RBC (Bld) [#/Vol] 3.74 10*6/uL Low 4.20-6.00 [facility] Comment on above: Order Comment: Speci men Type: BLOOD SPECIMEN [facility] Address: [address] [place] [address] Performed By: #### 2 4321-2, 44407-1, 72872-8, 2275-4 #### [facility] CLIA [id number] 1000 [place] [address] [place] WBC (Bld) [#/Vol] 10.74 10*3/uL Normal 3.70-11.00 [facility] Comment on above: Order Comment: Speci men Type: BLOOD SPECIMEN [facility] Address: [place] [id number] Performed By: #### 2 4321-2, 46425-8, 26208-1, 2276-4 #### [facility] CLIA [id number] [address] [place] [address] [facility] CONSULT PROGon 10-28-2024 CONSULT PROG H[place] ID: [id number] Author: MAUREEN SHERMAN RPh Service: Pharmacy Author [...] if there are questions. Maureen Sherman RPh [facility] CONSULT PROG [place] ID: [id number] Author: KURT PEREIRA MD Service: Infectious Disease [...] been malignant. Plan on performing bronchoscopy/EBUS at [facility] on 10/29. Will continue with [...] not final until Authenticated by responsible provider. [facility] CONSULT PROG [place] ID: [id number] Author: MAUREEN SHERMAN RPh Service: Pharmacy Author [...] have any questions, please contact pharmacy at [phone]. Age: [age] year old Allergies: ALLERGIES No [...] 0845 8.6 (L) Apryl Guerrero [facility] Normal [facility] Ferritin SerPl-mCncon 2024 Ferritin [Mass/Vol] 1133.0 ng/mL High 30.3-565.7 [facility] Comment on above: Order Comment: Speci men Type: BLOOD SPECIMEN [facility] Address: [facility] [address], [place] [id number] Performed By: #### 2 4321-2, 22576-8, 84709-5, 2276-4 #### [facility] CLIA [id number] [address] [place] [address] [place] Iron and Iron binding capaci ty panelon 10-28-2024 Iron [Mass/Vol] 17 ug/dL Low 41-186 [facility] Comment on above: Order Comment: Speci men Type: BLOOD SPECIMEN [facility] Address: [address] [place] [address] Performed By: #### 2 4321-2, 41309-2, 61141-1, 2275-4 #### [facility] CLIA [id number] [address] STATES [facility] Iron binding capacity [Mass/Vol] 133 ug/dL Low 232-386 [facility] Comment on above: Order Comment: Speci men Type: BLOOD SPECIMEN [facility] Address: [address] [place] [address] Performed By: #### 2 4321-2, 67301-4, 90655-2, 2275- #### [facility] CLIA [id number] [address] Iron/TIBC [Molar ratio] 12.8 % Low 15.0-57.0 [facility] Comment on above: Order Comment: Speci men Type: BLOOD SPECIMEN [facility] Address: [address] [place] [address] Performed By: #### 2 4321-2, 21621-7, 88456-5, 2275-05 #### [facility] CLIA [id number] [address] [place] Magnesium SerPl-mCncon 10-28 Magnesium [Mass/Vol] 2.2 mg/dL Normal 1.7-2.3 [facility] Comment on above: Order Comment: Speci men Type: BLOOD SPECIMEN [facility] Address: [address] [place], [place] [address] Performed By: #### 2 4321-2, 92516-2, 49075-0, 2275-4 #### [facility] CLIA [id number] [address] [place] PT panel Coag (PPP)on 2024 INR Coag (PPP) [Relative time] 1.1 {INR} Normal 0.9-1.3 [facility] Comment on above: Order Comment: Rody adams Type: BLOOD SPECIMEN [facility] Address: [address] [place] [id number] Result Comment: Mita min K Antagonist (VKA) Therapeutic Range: INR 2 to 3 (Target INR of 2.5) Note: For patients treated with VKA drugs, such as warfarin, the [place] [employer] 2012 Guideline recommends [...] Chest 2012, 141:7S-47S Vicki RA et al. [facility] 2017, 70: 252-289 Performed By: #### 3 4528-0 #### [facility] CLIA [id number] 1000 [place] [address] [place] PT Coag (PPP) [Time] 11.9 s Normal 9.7-13.0 [facility] Comment on above: Order Comment: Rody adams Type: BLOOD SPECIMEN [facility] Address: [address] [place] [address] Performed By: #### 3 4528-0 #### [facility] CLIA [id number] 1000 [place] [address] [place] Vancomycin Latta SerPl-mCncon 10-28-2024 Vancomycin random [Mass/Vol] 11.9 ug/mL Normal 10.0-20.0 [facility] Comment on above: Order Comment: Rody adams Type: BLOOD SPECIMEN [facility] Address: [address] [place] [id number] Result Comment: Refe rence ranges and high/low indicator flags are provided as general guidelines only. The treating physician must determine appropriate target levels/dosing based on the specific clinical situation. Performed By: #### 2 4321-2, 75440-5, 93900-2, 6-4 #### [facility] CLIA [id number] 1000 [place] [address] [place] Basic metabolic 2000 panelon 10-27-2024 Anion gap [Moles/Vol] 9 mmol/L Normal 8-15 [facility] Comment on above: Order Comment: Speci men Type: BLOOD SPECIMEN [facility] Address: [address] [place] [address] Performed By: #### 2 4321-2, 49232-6, 07656-9, 2275-4 #### [facility] CLIA [id number] [address] [place] [address] [place] Calcium [Mass/Vol] 8.3 mg/dL Low 8.5-10.2 [facility] Comment on above: Order Comment: Speci men Type: BLOOD SPECIMEN [facility] Address: [address] [place] [address] Performed By: #### 2 4321-2, 79856-5, 80278-2, 2275-4 #### [facility] CLIA [id number] 1000 [place] [address] [place] Chloride [Moles/Vol] 103 mmol/L Normal 98-107 [facility] Comment on above: Order Comment: Speci men Type: BLOOD SPECIMEN [facility] Address: [address] [place] [address] Performed By: #### 2 4321-2, 68139-2, 92799-9, 6-4 #### [facility] CLIA [id number] 1000 [place] [address] [place] CO2 [Moles/Vol] 22 mmol/L Normal 22-30 [facility] Comment on above: Order Comment: Speci men Type: BLOOD SPECIMEN [facility] Address: [address] [place] [address] Performed By: #### 2 4321-2, 76418-1, 27659-7, 6-4 #### [facility] CLIA [id number] [address] [place] [facility] Creatinine [Mass/Vol] 0.54 mg/dL Low 0.73-1.22 [facility] Comment on above: Order Comment: Rody adams Type: BLOOD SPECIMEN [facility] Address: [address] [place] [address] Performed By: #### 2 4321-2, 91960-0, 46823-2, 6-4 #### [facility] CLIA [id number] [address] [place] eGFRcr SerPlBld CKD-EPI 2020 106 mL/min/1.73m??? Normal >=60 [facility] Comment on above: Order Comment: Rody adams Type: BLOOD SPECIMEN [facility] Address: [address] [place] [address] Result Comment: Karon mated Glomerular Filtration Rate [...] actual GFR. Performed By: #### 2 4321-2, 18896-1, 16229-3, 2275-4 #### [facility] CLIA [id number] [address] [place] Glucose [Mass/Vol] 136 mg/dL High 74-99 [facility] Comment on above: Order Comment: Rody adams Type: BLOOD SPECIMEN [facility] Address: [address] [place] [address] Result Comment: The [place] [employer] (ADA) provides guidance for cutoff [...] Standards of Medical Care in Diabetes 2016, [place] [employer]. Diabetes Care. 2016.39(Suppl 1). Performed By: #### 2 4321-2, 56038-2, 92671-4, 2275-4 #### [facility] CLIA [id number] 1000 [place] [address] [place] Potassium [Moles/Vol] 3.7 mmol/L Normal 3.7-5.1 [facility] Comment on above: Order Comment: Rody adams Type: BLOOD SPECIMEN [facility]: [facility] Address: [address] [place] [address] Performed By: #### 2 4321-2, 25971-8, 82744-5, 2275-05 #### [facility] CLIA [id number] [address] [place] Sodium [Moles/Vol] 134 mmol/L Low 136-144 [facility] Comment on above: Order Comment: Rody adams Type: BLOOD SPECIMEN [facility] Address: [address] [place] [address] Performed By: #### 2 4321-2, 97839-4, 30634-8, 2275-05 #### [facility] CLIA [id number] [address] [place] Urea nitrogen [Mass/Vol] 8 mg/dL Low 9-24 [facility] Comment on above: Order Comment: Rody adams Type: BLOOD SPECIMEN [facility] Address: [address] [place] [address] Performed By: #### 2 4321-2, 72167-2, 86771-4, 4 #### [facility] CLIA [id number] [address] [place] CBC panel Auto (Bld)on 10-27 Erythrocyte distribution width (RBC) [Ratio] 14.6 % Normal 11.5-15.0 [facility] Comment on above: Order Comment: Rody adams Type: BLOOD SPECIMENOrdering Facility: [facility] Address: [facility] [place] [address] Performed By: #### 5 8410-2 ####[facility] [id number] [address] Hematocrit (Bld) [Volume fraction] 34.5 % Low 39.0-51.0 [facility] Comment on above: Order Comment: Speci men Type: BLOOD SPECIMENOrdering Facility: [facility] Address: [address] [place] [address] Performed By: #### 5 8410-2 ####[facility] [id number] [address] [place] Hemoglobin (Bld) [Mass/Vol] 11.2 g/dL Low 13.0-17.0 [facility] Comment on above: Order Comment: Speci men Type: BLOOD SPECIMENOrdering Facility: [facility] Address: [address] [place] [address] Performed By: #### 5 8410-2 ####[facility] [id number] [address] MCH (RBC) [Entitic mass] 30.4 pg Normal 26.0-34.0 [facility] Comment on above: Order Comment: Speci men Type: BLOOD SPECIMENOrdering Facility: [facility] Address: [address] [place] [address] Performed By: #### 5 8410-2 ####[facility] [id number] [address] MCHC (RBC) [Mass/Vol] 32.5 g/dL Normal 30.5-36.0 [facility] Comment on above: Order Comment: Speci men Type: BLOOD SPECIMENOrdering Facility: [facility] Address: [address] [place] [address] Performed By: #### 5 8410-2 ####[facility] [id number] [address] MCV (RBC) [Entitic vol] 93.8 fL Normal 80.0-100.0 [facility] Comment on above: Order Comment: Speci men Type: BLOOD SPECIMENOrdering Facility: [facility] Address: [address] [place] [address] Performed By: #### 5 8410-2 ####[facility] [id number] [place] [address] [place] Nucleated RBC (Bld) [#/Vol] 10*3/uL Normal <0.01 [facility] Comment on above: Order Comment: Speci men Type: BLOOD SPECIMENOrdering Facility: [facility] Address: [address] [place] [address] Performed By: #### 5 8410-2 ####[facility] [id number] [place] [address] [place] Platelet mean volume (Bld) [Entitic vol] 8.8 fL Low 9.0-12.7 [facility] Comment on above: Order Comment: Speci men Type: BLOOD SPECIMENOrdering Facility: [facility] Address: [address] [place] [address] Performed By: #### 5 8410-2 ####[facility] [id number] [address] [place] Platelets (Bld) [#/Vol] 391 10*3/uL Normal 150-400 [facility] Comment on above: Order Comment: Speci men Type: BLOOD SPECIMENOrdering Facility: [facility] Address: [address] [place] [address] Performed By: #### 5 8410-2 ####[facility] [id number] [place] [address] [place] RBC (Bld) [#/Vol] 3.68 10*6/uL Low 4.20-6.00 [facility] Comment on above: Order Comment: Speci men Type: BLOOD SPECIMENOrdering Facility: [facility] Address: [address] [place] [address] Performed By: #### 5 8410-2 ####[facility] LABORATORYCLIA [id number] [place] [address] [place] WBC (Bld) [#/Vol] 13.32 10*3/uL High 3.70-11.00 [facility] Comment on above: Order Comment: Rody adams Type: BLOOD SPECIMENOrdering Facility: [facility] Address: [address] [place] [address] Performed By: #### 5 8410-2 ####[facility] LABORATORYCLIA [id number] [address] [employer] SerPl-mCncon 10-27 Magnesium [Mass/Vol] 2.1 mg/dL Normal 1.7-2.3 [facility] Comment on above: Order Comment: Rody adams Type: BLOOD SPECIMEN Ordering Facility: [facility] Address: [address] [place] [address] Performed By: #### 2 4321-2, 05759-7, 98582-0, 2276-4 #### [facility] CLIA [id number] [address] [place] BLOOD TB SCREENon 10-26-2024 M. tuberculosis tuberculin stim IFN-g Ql (Bld) Negative [facility] Comment on above: Order Comment: Rody adams Type: BLOOD SPECIMENOrdering Facility: [facility] Address: [address] [place] [address] Performed By: #### I NFTBP ####[facility] LABCLIA [id number] [place] [address] [place] [facility] [place] MITOGEN MINUS NIL 0.82 IU/mL Normal >=0.50 [facility] Comment on above: Order Comment: Rody bryan Type: BLOOD SPECIMENOrdering Facility: [facility] Address: [address] [place] [address] Performed By: #### I NFTBP ####[facility] LABCLIA [id number] [address] [place] TB GAMMA INTERPRETATION Infection with M. tuberculosis complex is unlikely. If latent tuberculosis infection is highly suspected, a negative result does not rule out the infection. Specimens from immunocompromised patients and those <5 years of age may show false negative results. In case of a contact investigation, please repeat 8-12 weeks after a known exposure. [facility] Comment on above: Order Comment: Speci men Type: BLOOD SPECIMENOrdering Facility: [facility] Address: [address] [place] [address] Performed By: #### I NFTBP ####[facility] LABCLIA [id number] [address] OF [place] TB NIL 0.02 IU/mL Normal <=8.00 [facility] Comment on above: Order Comment: Speci men Type: BLOOD SPECIMENOrdering Facility: [facility] Address: [address] [place] [address] Performed By: #### I NFTBP ####[facility] LABCLIA [id number] [place] [address] [place] TB1 AG MINUS NIL 0.00 IU/mL Normal <0.35 [facility] Comment on above: Order Comment: Speci men Type: BLOOD SPECIMENOrdering Facility: [facility] Address: [address] [place] [address] Performed By: #### I NFTBP ####[facility] LABCLIA [id number] [address] [place] TB2 AG MINUS NIL 0.00 IU/mL Normal <0.35 [facility] Comment on above: Order Comment: Speci men Type: BLOOD SPECIMENOrdering Facility: [facility] Address: [address] [place] [address] Performed By: #### I NFTBP ####[facility] LABCLIA [id number] [place] [address] [place] Basic metabolic 2000 panelon 10-26-2024 Anion gap [Moles/Vol] 10 mmol/L Normal 8-15 [facility] Comment on above: Order Comment: Speci men Type: BLOOD SPECIMEN Ordering Facility: [facility] Address: [address] [place] [address] Performed By: #### 2 4321-2, 46826-9, 59559-4, 2276-4 #### [facility] CLIA [id number] [address] [place] [address] [place] Calcium [Mass/Vol] 8.7 mg/dL Normal 8.5-10.2 [facility] Comment on above: Order Comment: Speci men Type: BLOOD SPECIMEN Ordering Facility: [facility] Address: [address] [place] [address] Performed By: #### 2 4321-2, 07418-0, 47531-5, 2275-4 #### [facility] CLIA [id number] [address] [place] [address] [place] Chloride [Moles/Vol] 102 mmol/L Normal 98-107 [facility] Comment on above: Order Comment: Speci men Type: BLOOD SPECIMEN Ordering Facility: [facility] Address: [address] [place] [address] Performed By: #### 2 4321-2, 73701-6, 10401-5, 2275-4 #### [facility] CLIA [id number] [address] [place] [address] [place] CO2 [Moles/Vol] 24 mmol/L Normal 22-30 [facility] Comment on above: Order Comment: Speci men Type: BLOOD SPECIMEN Ordering Facility: [facility] Address: [address] [place] [address] Performed By: #### 2 4321-2, 80386-0, 87116-1, 2275-4 #### [facility] CLIA [id number] [address] [place] [address] [place] Creatinine [Mass/Vol] 0.60 mg/dL Low 0.73-1.22 [facility] Comment on above: Order Comment: Speci men Type: BLOOD SPECIMEN Ordering Facility: [facility] Address: [address] [place] [address] Performed By: #### 2 4321-2, 53461-9, 29117-7, 2275-4 #### [facility] CLIA [id number] [address] [place] [address] [place] eGFRcr SerPlBld CKD-EPI 2020 103 mL/min/1.73m??? Normal >=60 [facility] Comment on above: Order Comment: Rody adams Type: BLOOD SPECIMEN Ordering Facility: [facility] Address: [address] [id number] Result Comment: Karon mated Glomerular Filtration Rate [...] actual GFR. Performed By: #### 2 4321-2, 36713-9, 72026-0, 2275-4 #### [facility] CLIA [id number] [address] [place] [address] [place] Glucose [Mass/Vol] 114 mg/dL High 74-99 [facility] Comment on above: Order Comment: Rody adams Type: BLOOD SPECIMEN Ordering Facility: [facility] Address: [address] [place] [address] Result Comment: The [place] Diabetes Association (ADA) provides guidance for cutoff [...] Standards of Medical Care in Diabetes 2016, [place] [employer]. Diabetes Care. 2016.39(Suppl 1). Performed By: #### 2 4321-2, 78887-4, 26342-5, 2275-4 #### [facility] CLIA [id number] [address] [place] [address] [place] Potassium [Moles/Vol] 3.9 mmol/L Normal 3.7-5.1 [facility] Comment on above: Order Comment: Rody adams Type: BLOOD SPECIMEN Ordering Facility: [facility] Address: [address] [id number] Performed By: #### 2 4321-2, 44064-7, 45128-8, 2275-4 #### [facility] CLIA [id number] [address] STATES [place] Sodium [Moles/Vol] 136 mmol/L Normal 136-144 [facility] Comment on above: Order Comment: Speci men Type: BLOOD SPECIMEN Ordering Facility: [facility] Address: [address] [place] [address] Performed By: #### 2 4321-2, 86986-0, 34124-1, 2275-4 #### [facility] CLIA [id number] [address] [place] [address] [place] Urea nitrogen [Mass/Vol] 9 mg/dL Normal 9-24 [facility] Comment on above: Order Comment: Speci men Type: BLOOD SPECIMEN Ordering Facility: [facility] Address: [address] [place] [address] Performed By: #### 2 4321-2, 44300-1, 95791-7, 2275-4 #### [facility] CLIA [id number] [address] [place] [address] [place] CBC panel Auto (Bld)on 10-26 Erythrocyte distribution width (RBC) [Ratio] 14.6 % Normal 11.5-15.0 [facility] Comment on above: Order Comment: Speci men Type: BLOOD SPECIMEN Ordering Facility: [facility] Address: [address] [place] [address] Performed By: #### 2 4321-2, 94128-5, 52446-8, 2275-4 #### [facility] CLIA [id number] [address] STATES [place] Hematocrit (Bld) [Volume fraction] 32.9 % Low 39.0-51.0 [facility] Comment on above: Order Comment: Speci men Type: BLOOD SPECIMEN Ordering Facility: [facility] Address: [address] [place] [address] Performed By: #### 2 4321-2, 93808-8, 77670-4, 2276-4 #### [facility] CLIA [id number] 1000 [place], [place] [address] [place] [address] [place] Hemoglobin (Bld) [Mass/Vol] 10.9 g/dL Low 13.0-17.0 [facility] Comment on above: Order Comment: Speci men Type: BLOOD SPECIMEN Ordering Facility: [facility] Address: [address] [place] [address] Performed By: #### 2 4321-2, 33137-5, , 2275-05 #### [facility] CLIA [id number] [address] [place] MCH (RBC) [Entitic mass] 31.0 pg Normal 26.0-34.0 [facility] Comment on above: Order Comment: Speci men Type: BLOOD SPECIMEN Ordering Facility: [facility] Address: [address] [place] [address] Performed By: #### 2 4321-2, 77767-6, , 2275-05 #### [facility] CLIA [id number] [address] MCHC (RBC) [Mass/Vol] 33.1 g/dL Normal 30.5-36.0 [facility] Comment on above: Order Comment: Speci men Type: BLOOD SPECIMEN Ordering Facility: [facility] Address: [address] [place] [address] Performed By: #### 2 4321-2, 84380-5, 76789-3, 2275-05 #### [facility] CLIA [id number] [address] OF [facility] MCV (RBC) [Entitic vol] 93.5 fL Normal 80.0-100.0 [facility] Comment on above: Order Comment: Speci men Type: BLOOD SPECIMEN Ordering Facility: [facility] Address: [address] [place] [address] Performed By: #### 2 4321-2, 82939-1, 85958-4, 2275-05 #### [facility] CLIA [id number] [address] [place] [address] [place] Nucleated RBC (Bld) [#/Vol] 10*3/uL Normal <0.01 [facility] Comment on above: Order Comment: Speci men Type: BLOOD SPECIMEN Ordering Facility: [facility] Address: [address] [place] [address] Performed By: #### 2 4321-2, 46776-1, 90618-0, 6-4 #### [facility] CLIA [id number] 1000 [place] [address] [place] Platelet mean volume (Bld) [Entitic vol] 8.8 fL Low 9.0-12.7 [facility] Comment on above: Order Comment: Speci men Type: BLOOD SPECIMEN Ordering Facility: [facility] Address: [address] [place] [address] Performed By: #### 2 4321-2, 76861-7, 70523-6, 2275-4 #### [facility] CLIA [id number] [address] [place] [address] [place] Platelets (Bld) [#/Vol] 417 10*3/uL High 150-400 [facility] Comment on above: Order Comment: Speci men Type: BLOOD SPECIMEN Ordering Facility: [facility] Address: [address] [place] [address] Performed By: #### 2 4321-2, 93446-6, 90150-6, 2275-4 #### [facility] CLIA [id number] 1000 [place] [address] [place] RBC (Bld) [#/Vol] 3.52 10*6/uL Low 4.20-6.00 [facility] Comment on above: Order Comment: Speci men Type: BLOOD SPECIMEN Ordering Facility: [facility] Address: [address] [place] [address] Performed By: #### 2 4321-2, 54737-9, 20708-3, 2275-4 #### [facility] CLIA [id number] 1000 [place] [address] [place] WBC (Bld) [#/Vol] 13.40 10*3/uL High 3.70-11.00 [facility] Comment on above: Order Comment: Rody adams Type: BLOOD SPECIMEN Ordering Facility: [facility] Address: [facility] [place] [address] Performed By: #### 2 4321-2, 06921-3, 53217-4, 2276-4 #### [facility] CLIA [id number] [address] [place] [address] [place] [facility] CONSULT PROGon 10-26-2024 CONSULT PROG HNO ID: [id number] Author: MAUREEN SHERMAN RPh Service: Pharmacy Author [...] have any questions, please contact pharmacy at [phone]. Age: [age] year old Allergies: ALLERGIES No [...] 10/26/2024 0845 8.6 (L) Salma Zelaya rafaela [facility] HIV 1+2 Ab IA Qlon 5 HIV 1 and 2 Ab IA.rapid Nom (S/P/Bld) [facility] Comment on above: Order Comment: Speci men Type: BLOOD SPECIMEN Ordering Facility: [facility] Address: [address] [place] [address], [place] [address] Result Comment: Test not indicated. Performed By: #### 2 4321-2, 70755-0, 69059-3, 2275-4 #### [facility] CLIA [id number] [address] [place] [address] [place] HIV 1+2 Ab+HIV1 p24 Ag IA Ql Non-Reactive Normal Nonreactive [facility] Comment on above: Order Comment: Speci men Type: BLOOD SPECIMEN Ordering Facility: [facility] Address: [address] [place] [address] Performed By: #### 2 4321-2, 43959-3, 50438-6, 2275-4 #### [facility] CLIA [id number] [address] [place] [address] [place] HIV immunoassay testing algorithm interpretation (S/P/Bld) [Interp] Normal [facility] Comment on above: Order Comment: Speci men Type: BLOOD SPECIMEN Ordering Facility: [facility] Address: [address] [place] [address] Result Comment: No e vidence of HIV-1 or HIV-2 infection. Should recent infection be suspected, repeat testing may be considered 2-3 weeks after this draw. [place] Rev. Code 3701.243(E): This information has been [...] or diagnoses. Performed By: #### 2 4321-2, 62671-7, 94059-5, 2275-4 #### [facility] CLIA [id number] 1000 [place] [address] [place] Magnesium SerPl-mCncon 10-26 Magnesium [Mass/Vol] 2.1 mg/dL Normal 1.7-2.3 [facility] Comment on above: Order Comment: Speci men Type: BLOOD SPECIMEN Ordering Facility: [facility] Address: [address] [place] [address] Performed By: #### 2 4321-2, 07117-1, , 2275-05 #### [facility] CLIA [id number] [address] [place] [address] [place] Vancomycin Latta SerPl-mCncon 10-26-2024 Vancomycin random [Mass/Vol] 8.6 ug/mL Low 10.0-20.0 [facility] Comment on above: Order Comment: Speci men Type: BLOOD SPECIMEN Ordering Facility: [facility] Address: [address] [place] [address] Result Comment: Refe rence ranges and high/low indicator flags are provided as general guidelines only. The treating physician must determine appropriate target levels/dosing based on the specific clinical situation. Performed By: #### 2 4321-2, 38266-0, , 2275-05 #### [facility] CLIA [id number] [address] [place] [address] [place] Bacteria Spec Resp Culton Bacteria identified Respiratory culture Nom (Unsp spec) ORGANISM ID: 1 Rare Escherichia coli Insignificant colony count. No further workup. ORGANISM ID: 3 Few normal respiratory neema GRAM STAIN: Rare Mixed oral neema Rare Polymorphonuclear leukocytes Abnormal [facility] Comment on above: Performed By: #### 3 2355-0 ####[facility] LABCLIA [id number] [place] [address] [place] Basic metabolic 2000 panelon 10-25-2024 Anion gap [Moles/Vol] 13 mmol/L Normal 8-15 [facility] Comment on above: Order Comment: Speci men Type: BLOOD SPECIMENOrdering Facility: [facility] Address: [address] [place] [address] Performed By: #### 3 3959-8, 72070-4, ####[facility] [id number] [place] [address] [place] Calcium [Mass/Vol] 8.7 mg/dL Normal 8.5-10.2 [facility] Comment on above: Order Comment: Speci men Type: BLOOD SPECIMENOrdering Facility: [facility] Address: [address] [place] [address] Performed By: #### 3 3959-8, 78423-7, ####[facility] [id number] [place] [address] [place] Chloride [Moles/Vol] 102 mmol/L Normal 98-107 [facility] Comment on above: Order Comment: Speci men Type: BLOOD SPECIMENOrdering Facility: [facility] Address: [address] [place] [address] Performed By: #### 3 3959-8, 69002-7, ####[facility] [id number] [place] [address] [place] CO2 [Moles/Vol] 24 mmol/L Normal 22-30 [facility] Comment on above: Order Comment: Speci men Type: BLOOD SPECIMENOrdering Facility: [facility] Address: [address] [place] [address] Performed By: #### 3 3959-8, 30726-3, ####[facility] [id number] [place] [address] [place] Creatinine [Mass/Vol] 0.70 mg/dL Low 0.73-1.22 [facility] Comment on above: Order Comment: Speci men Type: BLOOD SPECIMENOrdering Facility: [facility] Address: [address] [place] [address] Performed By: #### 3 3959-8, 61309-5, ####[facility] [id number] [address] [place] eGFRcr SerPlBld CKD-EPI 2020 98 mL/min/1.73m??? Normal >=60 [facility] Comment on above: Order Comment: Speci men Type: BLOOD SPECIMENOrdering Facility: [facility] Address: [address] [place] [address] Result Comment: Karon mated Glomerular Filtration Rate [...] actual GFR. Performed By: #### 3 3959-8, 10419-9, ####[facility] [id number] [place] [address] [place] Glucose [Mass/Vol] 108 mg/dL High 74-99 [facility] Comment on above: Order Comment: Rody adams Type: BLOOD SPECIMENOrdering Facility: [facility] Address: [address] [place] [address] Result Comment: The [place] Diabetes Association (ADA) provides guidance for cutoff [...] Standards of Medical Care in Diabetes 2016, [place] [employer]. Diabetes Care. 2016.39(Suppl 1). Performed By: #### 3 3959-8, 72895-0, ####[facility] [id number] [place] [address] [place] Potassium [Moles/Vol] 4.8 mmol/L Normal 3.7-5.1 [facility] Comment on above: Order Comment: Rody adams Type: BLOOD SPECIMENOrdering Facility: [facility] Address: [address] [place] [address] Performed By: #### 3 3959-8, 76205-0, ####[facility] [id number] [address] [id number] [place] Sodium [Moles/Vol] 139 mmol/L Normal 136-144 [facility] Comment on above: Order Comment: Rody adams Type: BLOOD SPECIMENOrdering Facility: [facility] Address: [address] [place] [address] Performed By: #### 3 3959-8, 96160-3, 20221-2 ####[facility] [id number] [place] [address] [place] Urea nitrogen [Mass/Vol] 9 mg/dL Normal 9- [facility] Comment on above: Order Comment: Speci men Type: BLOOD SPECIMENOrdering Facility: [facility] Address: [address] [place] [address] Performed By: #### 3 3959-8, 28662-0, ####[facility] [id number] [place] [address] [place] CBC panel Auto (Bld)on 10-25 Erythrocyte distribution width (RBC) [Ratio] 14.6 % Normal 11.5-15.0 [facility] Comment on above: Order Comment: Speci men Type: BLOOD SPECIMEN Ordering Facility: [facility] Address: [address] [place] [address] Performed By: #### 2 4321-2, 91237-3, 47220-5, 2275-05 #### [facility] CLIA [id number] [address] Hematocrit (Bld) [Volume fraction] 37.7 % Low 39.0-51.0 [facility] Comment on above: Order Comment: Speci men Type: BLOOD SPECIMEN Ordering Facility: [facility] Address: [address] [place] [address] Performed By: #### 2 4321-2, 23853-6, 97773-3, 2275-4 #### [facility] CLIA [id number] 1000 [place], [place] [id number] [place] [address] [place] Hemoglobin (Bld) [Mass/Vol] 12.1 g/dL Low 13.0-17.0 [facility] Comment on above: Order Comment: Speci men Type: BLOOD SPECIMEN Ordering Facility: [facility] Address: [address] [place] [address] Performed By: #### 2 4321-2, 10717-6, 40888-7, 2275-4 #### [facility] CLIA [id number] [address] MCH (RBC) [Entitic mass] 31.1 pg Normal 26.0-34.0 [facility] Comment on above: Order Comment: Speci men Type: BLOOD SPECIMEN Order[facility] Facility: [facility] Address: [address] [place] [address] Performed By: #### 2 4321-2, 00195-8, 06853-1, 2275- #### [facility] CLIA [id number] [address] MCHC (RBC) [Mass/Vol] 32.1 g/dL Normal 30.5-36.0 [facility] Comment on above: Order Comment: Speci men Type: BLOOD SPECIMEN Ordering Facility: [facility] Address: [address] [place] [address] Performed By: #### 2 4321-2, 12016-9, 27135-3, 2275-05 #### [facility] CLIA [id number] [address] MCV (RBC) [Entitic vol] 96.9 fL Normal 80.0-100.0 [facility] Comment on above: Order Comment: Speci men Type: BLOOD SPECIMEN Ordering Facility: [facility] Address: [address] [place] [address] Performed By: #### 2 4321-2, 83777-2, 95553-3, 2275-05 #### [facility] CLIA [id number] [address] [place] Nucleated RBC (Bld) [#/Vol] 10*3/uL Normal <0.01 [facility] Comment on above: Order Comment: Speci men Type: BLOOD SPECIMEN Ordering Facility: [facility] Address: [address] [place] [address] Performed By: #### 2 4321-2, 63112-5, 34923-2, 2275-05 #### [facility] CLIA [id number] [address] Platelet mean volume (Bld) [Entitic vol] 8.7 fL Low 9.0-12.7 [facility] Comment on above: Order Comment: Speci men Type: BLOOD SPECIMEN Order[facility] Facility: [facility] Address: [address] [place] [address] Performed By: #### 2 4321-2, 25644-2, 04694-2, 6-4 #### [facility] CLIA [id number] 1000 [place] [address] [place] Platelets (Bld) [#/Vol] 457 10*3/uL High 150-400 [facility] Comment on above: Order Comment: Speci men Type: BLOOD SPECIMEN Ordering Facility: [facility] Address: [address] [place] [address] Performed By: #### 2 4321-2, 36425-6, 12867-4, 2275-4 #### [facility] CLIA [id number] 1000 [place] [address] [place] RBC (Bld) [#/Vol] 3.89 10*6/uL Low 4.20-6.00 [facility] Comment on above: Order Comment: Speci men Type: BLOOD SPECIMEN Ordering Facility: [facility] Address: [address] [place] [address] Performed By: #### 2 4321-2, 46536-1, 41204-7, 2275-4 #### [facility] CLIA [id number] [address] [place] [address] [place] WBC (Bld) [#/Vol] 19.10 10*3/uL High 3.70-11.00 [facility] Comment on above: Order Comment: Speci men Type: BLOOD SPECIMEN Ordering Facility: [facility] Address: [address] [place] [address] Performed By: #### 2 4321-2, 35143-9, 65541-9, 2275-4 #### [facility] CLIA [id number] [address] [place] [address] [place] CNPTOUTREACHon 10-25-2024 CNPTOUTREACH Normal [facility] CONSULTon 10-25-2024 CONSULT HNO ID: [id number] Author: ROBIN KNOX MD Service: Cardiovascular Medicine Author Type: Physician Type: Consults Filed: 10/25/2024 16:34 Note Text: . 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 Normal [facility] CONSULT HNO ID: [id number] Author: WILLARD BRISCOE MD Service: Infectious Disease [...] or weight loss. Denies the being in [facility]p or any exposures to TB. PAST MEDICAL HISTORY Diagnosis Date Abdominal aortic aneurysm without rupture Elevated PSA Hearing loss HTN (hypertension) Lumbosacral neuritis Malignant neoplasm of prostate (HCC) Other and unspecified hyperlipidemia Prostate cancer (HCC) 2020 xrt at [facility] [place] Smoker former quit 2021 Spinal stenosis of [...] COVID-19 original vaccine, age 12+ yr, monovalent ([place] - PURPLE TOP) 05/26/2020 06/17/2020 02/04/2021 COVID-19 vaccine, age 12+ yr (MODERNA) 02/06/2024 COVID-19 vaccine, age 12+ yr ([place] COMIRNATY) 02/14/2023 COVID-19 vaccine, age 12+ yr, bivalent ([place]) 12/28/2021 influenza (HD-IIV3) vaccine, age 65+ yr, [...] -- 09/28 (more content not included)... Normal [facility] CONSULT HNO ID: [id number] Author: DIA URENA MD Service: Pulmonary Disease [...] 1. Enlarging/hypermetabolic/c avitary RUL nodule c/w NSCLC, [id number], Stage IA3, s/p SBRT 02/01/24 [3400 cGy/1 [...] Plan for point [facility] MondayOctober [facility] for bronchoscopy, [...] hyperlipidemia Pro[facility] cancer ([facility]) [facility] [facility] [place] Smoker former quit 2021 Spinal stenosis of [...] 10/25/24 0834 (more content not included)... Normal [facility] ECHOon 10-25-2024 Echocardiography Echocardiography Rep ort: Transthoracic Echo [facility] Date of service: 10/25/2024 9:35:22 AM [...] * * * Final * * * [employer] Image : [id number] Normal [facility] Lactate (Bld) [Moles/Vol]on 10-25-2024 Lactate [Moles/Vol] 2.0 mmol/L Normal 0.5-2.2 [facility] Comment on above: Order Comment: Rody adams Type: BLOOD SPECIMEN Ordering Facility: [facility] Address: [address] [place] [address] Performed By: #### 2 4321-2, 92488-0, 21070-5, 2275-05 #### [facility] CLIA [id number] [address] [place] [address] [place] Legionella Ag Ur Qlon 2024 Legionella sp Ag Ql (U) Negative Normal Negative [facility] Comment on above: Order Comment: Rody adams Type: BLOOD SPECIMEN Ordering Facility: [facility] Address: [address] [place] [address] Result Comment: Legi onella urinary antigen test is used as an aid in diagnosis of infection with Legionella pneumophila serogroup 1. It may be detected from a few days to several months after onset of signs and symptoms despite antibiotic therapy or disease resolution. A negative result cannot exclude Legionellosis. Clinical correlation is required. Performed By: #### 2 4321-2, 24107-1, 80788-5, 2275-4 #### [facility] CLIA [id number] [address] [place] [address] [place] MYCOPLASMA PNEUM PCRon [...] developed and its performance characteristics determined by [employer]. It has not been cleared or approved by the [place] Food and Drug Administration. This test was performed in a CLIA certified laboratory and is intended for clinical purposes. Performed By: [facility] [address] [place] [address] House Mover Helper: Ethan Littlejohn MD, PhD CLIA Number: [id number] Normal [facility] Comment on above: Performed By: #### M YCPCR ####[facility] [id number] [place] [address] Magnesium SerPl-mCncon 10-25 Magnesium [Mass/Vol] 2.3 mg/dL Normal 1.7-2.3 [facility] Comment on above: Order Comment: Speci bryan Type: BLOOD SPECIMENOrdering Facility: [facility] Address: [address] [place] [address] Performed By: #### 3 3959-8, 68549-6, ####[facility] [id number] [place] [address] [place] NURSING PROGon 10-25-2024 NURSING PROG Normal [facility] Procalcitonin SerPl-mCncon 0 10-25-2024 Procalcitonin [Mass/Vol] 0.21 ng/mL High <0.09 [facility] Comment on above: Order Comment: Speci bryan Type: BLOOD SPECIMENOrdering Facility: [facility] Address: [address] [place] [address] Result Comment: For a guided interpretation of test results, please visit the Change in Procalcitonin Calculator, [email or web address]. Performed By: #### 3 3959-8, 91803-2, 39903-3 ####[facility] [id number] [place] [address] [place] STAPHYLOCOCCUS AUREUS AND MR SA SCREEN, PCR, NASALon 10-25-2024 S. aureus and MRSA panel WENDY+probe (Nose) Not detected Normal Not Detected [facility] Comment on above: Order Comment: Speci bryan Type: BLOOD SPECIMEN Ordering Facility: [facility] Address: [address] [place] [address] Performed By: #### 2 4321-2, 48949-3, 36001-6, 2276-4 #### [facility] CLIA [id number] [address] [place] [address] [place] STREPTOCOCCUS PNEUMONIAE ANT IGEN URINEon 10-25-2024 STREPTOCOCCUS PNEUMONIAE ANTIGEN URINE STREP PNEUMO AG RESULT: Negative for Streptococcus pneumoniae antigen. Presumptive negative for pneumococcal pneumonia, suggesting no current or recent pneumococcal infection. Infection due to S.pneumoniae cannot be ruled out since the antigen present in the sample may be below the detection limit of the test. [facility] Comment on above: Performed By: #### S PNAG ####[facility] LABCLIA [id number] [place] [address] [place] ALLIED HEALTHon 10-24-2024 ALLIED HEALTH HNO ID: [id number] Author: DEN GARCIA TECHNOLOGIST Service: Radiology Author [...] PATIENT PRESENTS WITH AN IMPLANTABLE OR ATTACHED CONTINUOUS PILLOWCASE CUTTER: No RADIOLOGY DEPARTMENT: CT; Exam(s) Completed: PE Study. Anesthesia: No PERIPHERAL IV DATA: Inpatient: see LDA documentation SIGNED BY: TECHNOLOGIST Bettye October 24, 2024 6:04 PM [facility] Bacteria Bld Culton 10-25-19 25 Bacteria identified Cx Nom (Bld) CULTURE, BLOOD: No growth 5 days GRAM STAIN: This blood culture had less than the recommended 8 ml per bottle, which could decrease the sensitivity of the test. [facility] Comment on above: Performed By: #### 6 00-7 ####[facility] LABCLIA [id number] [place] [address] [place] Bacteria identified Cx Nom (Bld) CULTURE, BLOOD: No growth 5 days GRAM STAIN: This blood culture had less than the recommended 8 ml per bottle, which could decrease the sensitivity of the test. Normal [facility] Comment on above: Performed By: #### 6 00-7 ####[facility] LABCLIA [id number] [place] [address] [place] CBC W Auto Differential pane l (Bld)on 10-24-2024 Basophils (Bld) [#/Vol] 0.09 10*3/uL Normal <0.11 [facility] Comment on above: Order Comment: Speci men Type: BLOOD SPECIMEN Ordering Facility: [facility] Address: [address] [place] [address] Performed By: #### 2 4321-2, 27050-5, 95874-6, 2275-4 #### [facility] CLIA [id number] [address] [place] [address] [place] Basophils/100 WBC (Bld) 0.7 % Normal [facility] Comment on above: Order Comment: Speci men Type: BLOOD SPECIMEN Ordering Facility: [facility] Address: [address] [place] [address] Performed By: #### 2 4321-2, 48329-9, 89184-7, 2275-4 #### [facility] CLIA [id number] [address] [place] [id number] [place] Differential cell count method Nom (Bld) Auto Normal [facility] Comment on above: Order Comment: Speci men Type: BLOOD SPECIMEN Ordering Facility: [facility] Address: [address] [place] [address] Performed By: #### 2 4321-2, 25281-1, 35412-8, 2275-4 #### [facility] CLIA [id number] [address] [place] [address] [place] Eosinophils (Bld) [#/Vol] 0.05 10*3/uL Normal <0.46 [facility] Comment on above: Order Comment: Speci men Type: BLOOD SPECIMEN Ordering Facility: [facility] Address: [address] [place] [address] Performed By: #### 2 4321-2, 77237-2, 16803-4, 2275-4 #### [facility] CLIA [id number] [address] [place] [address] [place] Eosinophils/100 WBC (Bld) 0.4 % Normal [facility] Comment on above: Order Comment: Speci men Type: BLOOD SPECIMEN Ordering Facility: [facility] Address: [address] [place] [address] Performed By: #### 2 4321-2, 23281-8, 30477-6, 2275-05 #### [facility] CLIA [id number] [address] [place] [address] [place] Erythrocyte distribution width (RBC) [Ratio] 14.4 % Normal 11.5-15.0 [facility] Comment on above: Order Comment: Speci men Type: BLOOD SPECIMEN Ordering Facility: [facility] Address: [address] [place] [address] Performed By: #### 2 4321-2, 37976-6, 65676-0, 2275-05 #### [facility] CLIA [id number] [address] [place] [address] [place] Hematocrit (Bld) [Volume fraction] 36.8 % Low 39.0-51.0 [facility] Comment on above: Order Comment: Speci men Type: BLOOD SPECIMEN Ordering Facility: [facility] Address: [address] [place] [address] Performed By: #### 2 4321-2, 94070-9, 75464-8, 2275-05 #### [facility] CLIA [id number] [address] [place] [address] [place] Hemoglobin (Bld) [Mass/Vol] 11.8 g/dL Low 13.0-17.0 [facility] Comment on above: Order Comment: Speci men Type: BLOOD SPECIMEN Ordering Facility: [facility] Address: [address] [place] [address] Performed By: #### 2 4321-2, 71643-1, 59591-3, 2275-4 #### [facility] CLIA [id number] [address] [place] [address] [place] Immature granulocytes (Bld) [#/Vol] 0.04 10*3/uL Normal <0.10 [facility] Comment on above: Order Comment: Speci men Type: BLOOD SPECIMEN Ordering Facility: [facility] Address: [address] [place] [address] Performed By: #### 2 4321-2, 57615-6, 35110-2, 2275-4 #### [facility] CLIA [id number] [address] [place] Immature granulocytes/100 WBC (Bld) 0.3 % Normal [facility] Comment on above: Order Comment: Speci men Type: BLOOD SPECIMEN Ordering Facility: [facility] Address: [address] [place] [address] Performed By: #### 2 4321-2, 66635-8, 45433-0, 2275-4 #### [facility] CLIA [id number] [address] [place] [address] [place] Lymphocytes (Bld) [#/Vol] 1.20 10*3/uL Normal 1.00-4.00 [facility] Comment on above: Order Comment: Speci men Type: BLOOD SPECIMEN Ordering Facility: [facility] Address: [address] [place] [address] Performed By: #### 2 4321-2, 88618-2, 28318-9, 2275-4 #### [facility] CLIA [id number] [address] [place] Lymphocytes/100 WBC (Bld) 9.9 % Normal [facility] Comment on above: Order Comment: Speci men Type: BLOOD SPECIMEN Ordering Facility: [facility] Address: [address] [place] [address] Performed By: #### 2 4321-2, 27196-8, 09082-8, 2276-4 #### [facility] CLIA [id number] [address] [place], [place] [id number] [place] [address] [place] MCH (RBC) [Entitic mass] 30.7 pg Normal 26.0-34.0 [facility] Comment on above: Order Comment: Speci men Type: BLOOD SPECIMEN Ordering Facility: [facility] Address: [address] [place] [address] Performed By: #### 2 4321-2, 34150-8, , 2275-05 #### [facility] CLIA [id number] [address] MCHC (RBC) [Mass/Vol] 32.1 g/dL Normal 30.5-36.0 [facility] Comment on above: Order Comment: Speci men Type: BLOOD SPECIMEN Ordering Facility: [facility] Address: [address] [place] [address] Performed By: #### 2 4321-2, 43794-1, , 2275-05 #### [facility] CLIA [id number] [address] MCV (RBC) [Entitic vol] 95.8 fL Normal 80.0-100.0 [facility] Comment on above: Order Comment: Speci men Type: BLOOD SPECIMEN Ordering Facility: [facility] Address: [address] [place] [address] Performed By: #### 2 4321-2, 63435-3, , 2275-05 #### [facility] CLIA [id number] [address] [place] Monocytes (Bld) [#/Vol] 0.80 10*3/uL Normal <0.87 [facility] Comment on above: Order Comment: Speci men Type: BLOOD SPECIMEN Ordering Facility: [facility] Address: [address] [place] [address] Performed By: #### 2 4321-2, 47708-5, , 2275-05 #### [facility] CLIA [id number] [address] [place] [address] [place] Monocytes/100 WBC (Bld) 6.6 % Normal [facility] Comment on above: Order Comment: Speci men Type: BLOOD SPECIMEN Ordering Facility: [facility] Address: [address] [place] [address] Performed By: #### 2 4321-2, 48008-9, 09540-8, 2275-4 #### [facility] CLIA [id number] [address] [place] [address] [place] Neutrophils (Bld) [#/Vol] 9.89 10*3/uL High 1.45-7.50 [facility] Comment on above: Order Comment: Speci men Type: BLOOD SPECIMEN Ordering Facility: [facility] Address: [address] [place] [address] Performed By: #### 2 4321-2, 00268-2, 71566-7, 2275-05 #### [facility] CLIA [id number] [address] [place] [address] [place] Neutrophils/100 WBC (Bld) 82.1 % Normal [facility] Comment on above: Order Comment: Speci men Type: BLOOD SPECIMEN Ordering Facility: [facility] Address: [address] [place] [address] Performed By: #### 2 4321-2, 76811-2, , 2275-05 #### [facility] CLIA [id number] [address] [place] [address] [place] Nucleated RBC (Bld) [#/Vol] 10*3/uL Normal <0.01 [facility] Comment on above: Order Comment: Speci men Type: BLOOD SPECIMEN Ordering Facility: [facility] Address: [address] [place] [address] Performed By: #### 2 4321-2, 90194-2, 23320-7, 2275-05 #### [facility] CLIA [id number] [address] [place] [address] [place] [facility] [place] Nucleated RBC/100 WBC (Bld) [Ratio] 0.0 /100 WBC Normal [facility] Comment on above: Order Comment: Speci men Type: BLOOD SPECIMEN Ordering Facility: [facility] Address: [address] [place] [address] Performed By: #### 2 4321-2, 46129-8, 92946-3, 6-4 #### [facility] CLIA [id number] [address] [place] [address] [place] Platelet mean volume (Bld) [Entitic vol] 8.6 fL Low 9.0-12.7 [facility] Comment on above: Order Comment: Speci men Type: BLOOD SPECIMEN Ordering Facility: [facility] Address: [address] [place] [address] Performed By: #### 2 4321-2, 95658-9, 31439-6, 6-4 #### [facility] CLIA [id number] [address] [place], [place] [id number] [place] [address] [place] Platelets (Bld) [#/Vol] 448 10*3/uL High 150-400 [facility] Comment on above: Order Comment: Speci men Type: BLOOD SPECIMEN Ordering Facility: [facility] Address: [address] [place] [address] Performed By: #### 2 4321-2, 58151-8, 50853-5, 6-4 #### [facility] CLIA [id number] [address] [place] [address] [place] RBC (Bld) [#/Vol] 3.84 10*6/uL Low 4.20-6.00 [facility] Comment on above: Order Comment: Speci men Type: BLOOD SPECIMEN Ordering Facility: [facility] Address: [address] [place] [address] Performed By: #### 2 4321-2, 12054-6, 12560-9, 6-4 #### [facility] CLIA [id number] [address] [place] [address] [facility] OF [place] WBC (Bld) [#/Vol] 12.07 10*3/uL High 3.70-11.00 [facility] Comment on above: Order Comment: Speci men Type: BLOOD SPECIMEN Ordering Facility: [facility] Address: [address] [place] [address] Performed By: #### 2 4321-2, 47106-7, 99312-1, 2276-4 #### [facility] IA [id number] [address] [place] [address] [place] CNOVon 10-24-2024 CNOV Normal [facility] CONSULT PROGon 10-24-2024 CONSULT PROG HNO ID: [id number] Author: MAUREEN SHERMAN RPh Service: Pharmacy Author [...] have any questions, please contact pharmacy at [phone]. Age: [age] year old Allergies: ALLERGIES No [...] DATE OF EXAM: Oct 24 2024 6:05PM [facility] 0564 - CTA CHEST (NON GATED) W [...] not excluded. Mediastinal lymphadenopathy may be reactive. 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: IMMANUEL Transcribe Date/Time: Oct 24 2024 6:55P Dictated by : BRIGIDA WEIR MD This examination was interpreted and the report reviewed and electronically signed by: BRIGIDA WEIR MD on Oct 24 2024 7:03PM EST [id number] Normal [facility] Comprehensive metabolic 2000 panelon 10-24-2024 Albumin [Mass/Vol] 2.8 g/dL Low 3.9-4.9 [facility] Comment on above: Order Comment: Speci men Type: BLOOD SPECIMEN Ordering Facility: [facility] Address: [address] [place] [address] Performed By: #### 2 4321-2, 62890-2, 28431-2, 6-4 #### [facility] CLIA [id number] [address] [place] [address] [place] ALP [Catalytic activity/Vol] 104 U/L Normal 38-113 [facility] Comment on above: Order Comment: Speci men Type: BLOOD SPECIMEN Ordering Facility: [facility] Address: [address] [place] [address] Performed By: #### 2 4321-2, 86021-8, 99954-4, 6-4 #### [facility] CLIA [id number] [address] [place] ALT [Catalytic activity/Vol] 52 U/L Normal 10-54 [facility] Comment on above: Order Comment: Speci men Type: BLOOD SPECIMEN Ordering Facility: [facility] Address: [address] [place] [address] Performed By: #### 2 4321-2, 95053-5, 34110-7, 6-4 #### [facility] CLIA [id number] [address] [place] [address] [place] Anion gap [Moles/Vol] 9 mmol/L Normal 8-15 [facility] Comment on above: Order Comment: Speci men Type: BLOOD SPECIMEN Ordering Facility: [facility] Address: [address] [place] [address] Performed By: #### 2 4321-2, 51012-7, 31757-6, 6-4 #### [facility] CLIA [id number] [address] [place] [address] [place] AST [Catalytic activity/Vol] 28 U/L Normal 14-40 [facility] Comment on above: Order Comment: Speci men Type: BLOOD SPECIMEN Ordering Facility: [facility] Address: [address] [place] [address] Performed By: #### 2 4321-2, 38395-9, 12638-9, 2275-4 #### [facility] CLIA [id number] [address] [place] [address] [place] Bilirubin [Mass/Vol] 0.3 mg/dL Normal 0.2-1.3 [facility] Comment on above: Order Comment: Speci men Type: BLOOD SPECIMEN Ordering Facility: [facility] Address: [address] [place] [address] Performed By: #### 2 4321-2, 99828-2, 91735-7, 2275-4 #### [facility] CLIA [id number] [address] [place] [address] [place] Calcium [Mass/Vol] 7.8 mg/dL Low 8.5-10.2 [facility] Comment on above: Order Comment: Speci men Type: BLOOD SPECIMEN Ordering Facility: [facility] Address: [address] [place] [address] Performed By: #### 2 4321-2, 59593-6, 32759-4, 2275-4 #### [facility] CLIA [id number] [address] [place] [address] [place] Chloride [Moles/Vol] 106 mmol/L Normal 98-107 [facility] Comment on above: Order Comment: Speci men Type: BLOOD SPECIMEN Ordering Facility: [facility] Address: [address] [place] [address] Performed By: #### 2 4321-2, 41556-9, 93466-2, 2275-4 #### [facility] CLIA [id number] [address] [place] [address] [place] CO2 [Moles/Vol] 25 mmol/L Normal 22-30 [facility] Comment on above: Order Comment: Speci men Type: BLOOD SPECIMEN Ordering Facility: [facility] Address: [address] [place], [place] [address] Performed By: #### 2 4321-2, 15455-7, 30918-7, 2275-4 #### [facility] CLIA [id number] [address] Creatinine [Mass/Vol] 0.45 mg/dL Low 0.73-1.22 [facility] Comment on above: Order Comment: Rody adams Type: BLOOD SPECIMEN Ordering Facility: [facility] Address: [address] [place] [address] Performed By: #### 2 4321-2, 69750-4, 99100-9, 2275-4 #### [facility] CLIA [id number] [address] [place] eGFRcr SerPlBld CKD-EPI 2020 112 mL/min/1.73m??? Normal >=60 [facility] Comment on above: Order Comment: Rody adams Type: BLOOD SPECIMEN Ordering Facility: [facility] Address: [address] [place] [address] Result Comment: Karon mated Glomerular Filtration Rate [...] actual GFR. Performed By: #### 2 4321-2, 59690-0, 10832-8, 2275-4 #### [facility] CLIA [id number] [address] [place] Glucose [Mass/Vol] 91 mg/dL Normal 74-99 [facility] Comment on above: Order Comment: Rody adams Type: BLOOD SPECIMEN Ordering Facility: [facility] Address: [address] [place] [address] Result Comment: The [place] [employer] Association (ADA) provides guidance for cutoff [...] Standards of Medical Care in Diabetes 2016, [place] [employer]. Diabetes Care. 2016.39(Suppl 1). Performed By: #### 2 4321-2, 04291-1, 63038-0, 2275-4 #### [facility] CLIA [id number] [address] [place] [address] [place] Potassium [Moles/Vol] 3.8 mmol/L Normal 3.7-5.1 [facility] Comment on above: Order Comment: Rody adams Type: BLOOD SPECIMEN Ordering Facility: [facility] Address: [address] [place] [address] Performed By: #### 2 4321-2, 56555-6, 74870-9, 2275-4 #### [facility] CLIA [id number] [address] [place] [address] [place] Protein [Mass/Vol] 6.0 g/dL Low 6.3-8.0 [facility] Comment on above: Order Comment: Rody adams Type: BLOOD SPECIMEN Ordering Facility: [facility] Address: [address] [place] [address] Performed By: #### 2 4321-2, 43958-3, 13393-1, 2275-4 #### [facility] CLIA [id number] [address] [place] [address] [place] Sodium [Moles/Vol] 140 mmol/L Normal 136-144 [facility] Comment on above: Order Comment: Rody adams Type: BLOOD SPECIMEN Ordering Facility: [facility] Address: [address] [place] [address] Performed By: #### 2 4321-2, 62461-8, 48120-2, 2275-4 #### [facility] CLIA [id number] [address] [place] [id number] [place] Urea nitrogen [Mass/Vol] 6 mg/dL Low 9-24 [facility] Comment on above: Order Comment: Speci men Type: BLOOD SPECIMEN Ordering Facility: [facility] Address: [place] [address] Performed By: #### 2 4321-2, 94300-9, 18350-2, 2276-4 #### [facility] CLIA [id number] [address] [place] [id number] [facility] ED NOTEon 10-24-2024 ED NOTE HNO ID: [id number] Author: JOSE ARMANDO CASSIDY RN Service: ? Author Type: Registered Nurse Type: ED Notes Filed: 10/24/2024 15:41 Note Text: Dr العراقي notified of [facility] ED NOTE HNO ID: [id number] Author: JOSE ARMANDO CASSIDY RN Service: ? Author Type: Registered Nurse Type: ED Notes Filed: 10/24/2024 15:30 Note Text: Bed: ED-02 Expected date: 10/24/24 Expected time: Means of arrival: Comments: [facility] ED PROV NOTEon 10-24-2024 ED PROV NOTE HNO ID: [id number] Author: HAILE VASQUEZ DO Service: Emergency Medicine [...] hyperlipidemia Prostate cancer (HCC) 2020 xrt at [facility] [place] Smoker former quit 2021 Spinal stenosis of [...] Abs N (more content not included)... Normal [facility] EKGon 10-24-2024 Electrocardiogram Ventricular Rate : 1 11 BPM QRS Duration : 74 ms Q-T Interval : 336 ms QTC Calculation(Bazett) : 456 ms Calculated R [place] : 53 degrees Calculated T [place] : 34 degrees ATRIAL FIBRILLATION WITH RAPID VENTRICULAR RESPONSE WITH PREMATURE VENTRICULAR OR ABERRANTLY CONDUCTED COMPLEXES ABNORMAL ECG Confirmed by HAILE VASQUEZ DO ([id number]) on 10/24/2024 8:50:25 PM NAME : STEVIE SANCHEZ PID : [id number] : 1950 Gender : Male Race : ORD : Procedure Date : Oct 24 2024 15:32:23 Edit Date : Oct 24 2024 20:50:29 Diagnosis: ATRIAL FIBRILLATION WITH RAPID VENTRICULAR RESPONSE WITH PREMATURE VENTRICULAR OR ABERRANTLY CONDUCTED COMPLEXES ABNORMAL ECG Confirmed by HAILE VASQUEZ DO ([id number]) on 10/24/2024 8:50:25 PM Test Reason : Location : 1 : ER ED Overread By : HAILE VASQUEZ DO Edited By : HAILE VASQUEZ DO Referred By : , Acquired by : cc, Normal [facility] HIGH SENSITIVITY TROPONIN To n 10-24-2024 Troponin T.cardiac High sensitivity method [Mass/Vol] 39 ng/L High <[address] [place] [address] Comment on above: Order Comment: Rody adams Type: BLOOD SPECIMEN Ordering Facility: [facility] Address: [address] [place] [address] Performed By: #### 2 4321-2, 03187-8, 73801-1, 2275- #### [facility] CLIA [id number] [address] [place] [address] [place] HIGH SENSITIVITY TROPONIN T (INITIAL)on 10-24-2024 Troponin T.cardiac High sensitivity method [Mass/Vol] 35 ng/L High <[address] [place] [address] Comment on above: Order Comment: Rody adams Type: BLOOD SPECIMEN Ordering Facility: [facility] Address: [address] [place] [address] Performed By: #### 2 4321-2, 83992-7, 24111-9, 2275- #### [facility] CLIA [id number] [address] [place] [address] [place] HIGH SENSITIVITY TROPONIN T (SECOND)on 10-24-2024 Troponin T.cardiac High sensitivity method [Mass/Vol] 39 ng/L High <[address] [place] [address] Comment on above: Order Comment: Rody adams Type: BLOOD SPECIMEN Ordering Facility: [facility] Address: [address] [place] [address] Performed By: #### 2 4321-2, 53021-1, 04488-6, 2275- #### [facility] CLIA [id number] [address] [place] [address] [place] HISTORY PHYSICALon HISTORY PHYSICAL HNO ID: [id number] Author: ANDERSON MARTINEZ PA-C Service: Hospital Medicine Author Type: Physician Supervisor Files Type: H&P Filed: 10/24/2024 22:24 Note Text: [...] Praful Su MD NIGHT AND WEEKEND COVERAGE: [facility]: Days: [phone], please page attending physician. Nights: 8962-3089, please page [facility] Night coverage pager [phone]. Subjective CHIEF COMPLAINT: Elevated HR at PCP [...] Prostate cancer (HCC) 2020 xrt at [facility] [place] Smoker former quit 2021 Spinal stenosis of [...] psychosocial stresso (more content not included)... Normal [facility]19 25 Lipase [Catalytic activity/Vol] 19 U/L Normal 16-61 [facility] Comment on above: Order Comment: Speci men Type: BLOOD SPECIMEN Ordering Facility: [facility] Address: [address] [place] [address] Performed By: #### 2 4321-2, 08614-4, 79784-4, 2276-4 #### [facility] CLIA [id number] [address] [place] [address] [place] Magnesium SerPl-mCncon 10-24 Magnesium [Mass/Vol] 1.6 mg/dL Low 1.7-2.3 [facility] Comment on above: Order Comment: Speci men Type: BLOOD SPECIMEN Ordering Facility: [facility] Address: [address] [place], [place] [address] [address] Performed By: #### 2 4321-2, 91450-0, 92261-0, 2276-4 #### [facility] CLIA [id number] [address] [place] [address] [place] CNPNon 10-22-2024 CNPN Normal [facility] CNPTOUTREACHon 09-20-2024 CNPTOUTREACH Normal [facility] CNPTOUTREACHon 09-13-2024 CNPTOUTREACH Normal [facility] CNOVSPon 09-11-2024 CNOVSP Normal [facility] CNPTOUTREACHon 09-10-2024 CNPTOUTREACH Normal [facility] CNPTOUTREACHon 09-06-2024 CNPTOUTREACH Normal [facility] CNOVon 08-23-2024 CNOV Normal [facility] XR CHEST 2V FRONTAL/LATon XR CHEST 2V [...] IMPRESSION: Resolution of right hydropneumothorax since 07/01/2024 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: IMMANUEL Transcribe Date/Time: Aug 20 2024 11:10A Dictated by : IKE KERR MD This examination was interpreted and the report reviewed and electronically signed by: IKE KERR MD on Aug 20 2024 11:14AM EST [id number] [facility] CNPTOUTREACHon 07-12-2024 CNPTOUTREACH Normal [facility] CNOVon 2024 CNOV Normal [facility] XR CHEST 2V FRONTAL/LATon XR CHEST 2V FRONTAL/LAT Normal [facility] XR Chest PA and Lateralon IMPRESSION: No acute radiographic findings in the chest. 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: PSCHerbert Transcribe Date/Time: 2024 1:27P Dictated by [...] the thoracic spine. DIVISION OF RADIOLOGY Provider, [facility] - 2024 * * *Final Report* [...] No acute radiographic findings in the chest. 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: IMMANUEL Transcribe Date/Time: 2024 1:27P Dictated by : ALIYA BARRIENTOS MD This examination was interpreted and the report reviewed and electronically signed by: ALIYA BARRIENTOS MD on 2024 1:30PM EST [facility] Radiology Study observation (narrative) [facility] XR Chest PA and LateralOrder ed By: [facility]cf Provider on 2024 [facility] CNPTOUTREACHon 07-05-2024 CNPTOUTREACH Normal [facility] CNOVon 07-01-2024 CNOV Normal [facility] XR CHEST 2V FRONTAL/LATon XR CHEST 2V FRONTAL/LAT Normal [facility] XR CHEST 2V FRONTAL/LAT Normal [facility] XR Chest PA and Lateralon IMPRESSION: See result. 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: IMMANUEL Transcribe Date/Time: Jul 01 2024 12:42P Dictated by : IVON PEREIRA MD This examination was interpreted and the report reviewed and electronically signed by: IVON PEREIRA MD on Jul 01 2024 12:43PM [facility] DIVISION OF RADIOLOGY * * *Final Report* [...] soft tissues: Unremarkable. DIVISION OF RADIOLOGY Provider, [facility] - 07/01/2024 * * *Final Report* * [...] soft tissues: Unremarkable. IMPRESSION IMPRESSION: See result. 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: IMMANUEL Transcribe Date/Time: Jul 01 2024 12:42P Dictated by : IVON PEREIRA MD This examination was interpreted and the report reviewed and electronically signed by: IVON PEREIRA MD on Jul 01 2024 12:43PM [facility] Radiology Study observation (narrative) [facility] IMPRESSION: See result. 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: IMMANUEL Transcribe Date/Time: Jul 01 2024 10:40A Dictated by : IVON PEREIRA MD This examination was interpreted and the report reviewed and electronically signed by: IVON PEREIRA MD on Jul 01 2024 10:41AM [facility] DIVISION OF RADIOLOGY * * *Final Report* [...] soft tissues: Unremarkable. DIVISION OF RADIOLOGY Provider, [facility] - 07/01/2024 * * *Final Report* * [...] soft tissues: Unremarkable. IMPRESSION IMPRESSION: See result. 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: IMMANUEL Transcribe Date/Time: Jul 01 2024 10:40A Dictated by : IVON PEREIRA MD This examination was interpreted and the report reviewed and electronically signed by: IVON PEREIRA MD on Jul 01 2024 10:41AM EST [facility] Radiology Study observation (narrative) [facility] XR Chest PA and LateralOrder ed By: Ccf Provider on 07-01-2024 [facility] CNPTOUTREACHon 06-24-2024 CNPTOUTREACH Normal [facility] Basic metabolic 2000 panelon 06-23-2024 Anion gap [Moles/Vol] 12 mmol/L Normal 8-15 [facility] Comment on above: Order Comment: Speci men Type: BLOOD SPECIMENOrdering Facility: [facility] Address: [address] [place] [address] Performed By: #### 2 4321-2 ####[facility]CLIA [id number] [place] [address] [place] Calcium [Mass/Vol] 9.5 mg/dL Normal 8.5-10.2 [facility] Comment on above: Order Comment: Speci men Type: BLOOD SPECIMENOrdering Facility: [facility] Address: [address] [place] [address] Performed By: #### 2 4321-2 ####[facility] [id number] [place] [address] [place] Chloride [Moles/Vol] 105 mmol/L Normal 98-107 [facility] Comment on above: Order Comment: Speci men Type: BLOOD SPECIMENOrdering Facility: [facility] Address: [address] [place] [address] Performed By: #### 2 4321-2 ####[facility]CLIA [id number] [place] [id number] [place] CO2 [Moles/Vol] 25 mmol/L Normal 22-30 [facility] Comment on above: Order Comment: Speci men Type: BLOOD SPECIMENOrdering Facility: [facility] Address: [address] [place], [place] [address] Performed By: #### 2 4321-2 ####[facility]CLIA [id number] [place] [id number] [place] Creatinine [Mass/Vol] 0.59 mg/dL Low 0.73-1.22 [facility] Comment on above: Order Comment: Rody adams Type: BLOOD SPECIMENOrdering Facility: [facility] Address: [address] [place] [address] Performed By: #### 2 4321-2 ####[facility] [id number] [address] OF [facility] Creatinine and Glomerular filtration rate.predicted panel (S/P/Bld) 104 mL/min/1.73m??? Normal >=60 [facility] Comment on above: Order Comment: Rody adams Type: BLOOD SPECIMENOrdering Facility: [facility] Address: [address] [place] [address] Result Comment: Karon mated Glomerular Filtration Rate [...] actual GFR. Performed By: #### 2 4321-2 ####[facility] LABIA [id number] [place] [address] [place] Glucose [Mass/Vol] 97 mg/dL Normal 74-99 [facility] Comment on above: Order Comment: Rody adams Type: BLOOD SPECIMENOrdering Facility: [facility] Address: [address] [place] [address] Result Comment: The [place] Diabetes Association (ADA) provides guidance for cutoff [...] Standards of Medical Care in Diabetes 2016, [place] [employer]. Diabetes Care. 2016.39(Suppl 1). Performed By: #### 2 4321-2 ####[facility]CLIA [id number] [address] [address] [place] Potassium [Moles/Vol] 3.7 mmol/L Normal 3.7-5.1 [facility] Comment on above: Order Comment: Speci men Type: BLOOD SPECIMENOrdering Facility: [facility] Address: [address] [place] [address] Performed By: #### 2 4321-2 ####[facility] [id number] [address] [place] [address] [place] Sodium [Moles/Vol] 142 mmol/L Normal 136-144 [facility] Comment on above: Order Comment: Speci men Type: BLOOD SPECIMENOrdering Facility: [facility] Address: [address] [place] [address] Performed By: #### 2 4321-2 ####[facility]CLIA [id number] [address] [place] [address] [place] Urea nitrogen [Mass/Vol] 10 mg/dL Normal 9-24 [facility] Comment on above: Order Comment: Speci men Type: BLOOD SPECIMENOrdering Facility: [facility] Address: [address] [place] [address] Performed By: #### 2 4321-2 ####[facility]IA [id number] [address] [address] [place] CASE MANAGEMon 06-23-2024 CASE MANAGEM Normal [facility] CBC panel Auto (Bld)on 06-23 Erythrocyte distribution width (RBC) [Ratio] 14.4 % Normal 11.5-15.0 [facility] Comment on above: Order Comment: Speci men Type: BLOOD SPECIMENOrdering Facility: [facility] Address: [address] [place] [address] Performed By: #### 5 8410-2 ####[facility] LABIA [id number] [place] [address] [place] Hematocrit (Bld) [Volume fraction] 40.6 % Normal 39.0-51.0 [facility] Comment on above: Order Comment: Speci men Type: BLOOD SPECIMENOrdering Facility: [facility] Address: [address] [place] [address] Performed By: #### 5 8410-2 ####[facility]IA [id number] [place] [address] [place] Hemoglobin (Bld) [Mass/Vol] 13.6 g/dL Normal 13.0-17.0 [facility] Comment on above: Order Comment: Speci men Type: BLOOD SPECIMENOrdering Facility: [facility] Address: [address] [place] [address] Performed By: #### 5 8410-2 ####[facility]IA [id number] [place] [address] [place] MCH (RBC) [Entitic mass] 32.5 pg Normal 26.0-34.0 [facility] Comment on above: Order Comment: Speci men Type: BLOOD SPECIMENOrdering Facility: [facility] Address: [address] [place] [address] Performed By: #### 5 8410-2 ####[facility] [id number] [place] [id number] [place] MCHC (RBC) [Mass/Vol] 33.5 g/dL Normal 30.5-36.0 [facility] Comment on above: Order Comment: Speci men Type: BLOOD SPECIMENOrdering Facility: [facility] Address: [address] [place] [address] Performed By: #### 5 8410-2 ####[facility] [id number] [address] [place] [address] [place] MCV (RBC) [Entitic vol] 97.1 fL Normal 80.0-100.0 [facility] Comment on above: Order Comment: Speci men Type: BLOOD SPECIMENOrdering Facility: [facility] Address: [address] [place] [address] Performed By: #### 5 8410-2 ####[facility] [id number] [address], [place] [address] [place] Nucleated RBC (Bld) [#/Vol] 10*3/uL Normal <0.01 [facility] Comment on above: Order Comment: Speci men Type: BLOOD SPECIMENOrdering Facility: [facility] Address: [address] [place] [address] Performed By: #### 5 8410-2 ####[facility] [id number] [place] [address] [place] Platelet mean volume (Bld) [Entitic vol] 9.4 fL Normal 9.0-12.7 [facility] Comment on above: Order Comment: Speci men Type: BLOOD SPECIMENOrdering Facility: [facility] Address: [address] [place] [address] Performed By: #### 5 8410-2 ####[facility] [id number] [place] [address] [place] Platelets (Bld) [#/Vol] 224 10*3/uL Normal 150-400 [facility] Comment on above: Order Comment: Speci men Type: BLOOD SPECIMENOrdering Facility: [facility] Address: [address] [place] [address] Performed By: #### 5 8410-2 ####[facility] [id number] [place] [address] [place] RBC (Bld) [#/Vol] 4.18 10*6/uL Low 4.20-6.00 [facility] Comment on above: Order Comment: Speci men Type: BLOOD SPECIMENOrdering Facility: [facility] Address: [address] [place] [address] Performed By: #### 5 8410-2 ####[facility]IA [id number] [place] [address] [place] WBC (Bld) [#/Vol] 5.93 10*3/uL Normal 3.70-11.00 [facility] Comment on above: Order Comment: Speci men Type: BLOOD SPECIMENOrdering Facility: [facility] Address: [address] [place] [address] Performed By: #### 5 8410-2 ####[facility]CLIA [id number] [place] [address] [place] CNDSon 06-23-2024 CNDS Normal [facility] XR CHEST 1V FRONTAL PORTon 0 06-23-2024 XR CHEST 1V FRONTAL PORT Normal [facility] Basic metabolic 2000 panelon 06-22-2024 Anion gap [Moles/Vol] 15 mmol/L Normal 8-15 [facility] Comment on above: Order Comment: Speci men Type: BLOOD SPECIMENOrdering Facility: [facility] Address: [address] [place] [address] Performed By: #### 2 4321-2 ####[facility]CLIA [id number] [place] [id number] [place] Calcium [Mass/Vol] 9.0 mg/dL Normal 8.5-10.2 [facility] Comment on above: Order Comment: Speci men Type: BLOOD SPECIMENOrdering Facility: [facility] Address: [address] [place] [address] Performed By: #### 2 4321-2 ####[facility]CLIA [id number] [place] [id number] [place] Chloride [Moles/Vol] 105 mmol/L Normal 98-107 [facility] Comment on above: Order Comment: Speci men Type: BLOOD SPECIMENOrdering Facility: [facility] Address: [address] [place] [address] Performed By: #### 2 4321-2 ####[facility] LABIA [id number] [place] [address] [place] CO2 [Moles/Vol] 21 mmol/L Low 22-30 [facility] Comment on above: Order Comment: Speci men Type: BLOOD SPECIMENOrdering Facility: [facility] Address: [address] [place] [address] Performed By: #### 2 4321-2 ####[facility] [id number] [address] [place] Creatinine [Mass/Vol] 0.51 mg/dL Low 0.73-1.22 [facility] Comment on above: Order Comment: Speci men Type: BLOOD SPECIMENOrdering Facility: [facility] Address: [address] [place] [address] Performed By: #### 2 4321-2 ####[facility] LABIA [id number] [address] STATES [facility] Creatinine and Glomerular filtration rate.predicted panel (S/P/Bld) 108 mL/min/1.73m??? Normal >=60 [facility] Comment on above: Order Comment: Speci men Type: BLOOD SPECIMENOrdering Facility: [facility] Address: [address] [place] [address] Result Comment: Karon mated Glomerular Filtration Rate [...] actual GFR. Performed By: #### 2 4321-2 ####[facility]CLIA [id number] [address] [address] [place] Glucose [Mass/Vol] 86 mg/dL Normal 74-99 [facility] Comment on above: Order Comment: Speci men Type: BLOOD SPECIMENOrdering Facility: [facility] Address: [address] [place] [address] Result Comment: The [place] Diabetes Association (ADA) provides guidance for cutoff [...] Standards of Medical Care in Diabetes 2016, [place] [employer]. Diabetes Care. 2016.39(Suppl 1). Performed By: #### 2 4321-2 ####[facility]CLIA [id number] [place] [address] [place] Potassium [Moles/Vol] 3.8 mmol/L Normal 3.7-5.1 [facility] Comment on above: Order Comment: Speci men Type: BLOOD SPECIMENOrdering Facility: [facility] Address: [address] [place], [place] [address] Performed By: #### 2 4321-2 ####[facility]CLIA [id number] [place] [address] [place] Sodium [Moles/Vol] 141 mmol/L Normal 136-144 [facility] Comment on above: Order Comment: Speci men Type: BLOOD SPECIMENOrdering Facility: [facility] Address: [address] [place], [place] [address] Performed By: #### 2 4321-2 ####[facility]CLIA [id number] [place] [id number] [place] Urea nitrogen [Mass/Vol] 10 mg/dL Normal 9-24 [facility] Comment on above: Order Comment: Speci men Type: BLOOD SPECIMENOrdering Facility: [facility] Address: [address] [place] [address] Performed By: #### 2 4321-2 ####[facility] LABIA [id number] [address], [address] [place] CBC panel Auto (Bld)on 06-22 Erythrocyte distribution width (RBC) [Ratio] 14.6 % Normal 11.5-15.0 [facility] Comment on above: Order Comment: Speci men Type: BLOOD SPECIMENOrdering Facility: [facility] Address: [address] [place] [address] Performed By: #### 5 8410-2 ####[facility] LABIA [id number] [address], [address] [place] Hematocrit (Bld) [Volume fraction] 38.0 % Low 39.0-51.0 [facility] Comment on above: Order Comment: Speci men Type: BLOOD SPECIMENOrdering Facility: [facility] Address: [address] [place] [address] Performed By: #### 5 8410-2 ####[facility] LABIA [id number] [address], [place] [address] [place] Hemoglobin (Bld) [Mass/Vol] 12.7 g/dL Low 13.0-17.0 [facility] Comment on above: Order Comment: Speci men Type: BLOOD SPECIMENOrdering Facility: [facility] Address: [address] [place] [address] Performed By: #### 5 8410-2 ####[facility] LABCLIA [id number] [address], [facility] [place] MCH (RBC) [Entitic mass] 32.6 pg Normal 26.0-34.0 [facility] Comment on above: Order Comment: Speci men Type: BLOOD SPECIMENOrdering Facility: [facility] Address: [address] [place] [address] Performed By: #### 5 8410-2 ####[facility] [id number] [place] [address] [place] MCHC (RBC) [Mass/Vol] 33.4 g/dL Normal 30.5-36.0 [facility] Comment on above: Order Comment: Speci men Type: BLOOD SPECIMENOrdering Facility: [facility] Address: [address] [place] [address] Performed By: #### 5 8410-2 ####[facility] [id number] [place] [address] [place] MCV (RBC) [Entitic vol] 97.7 fL Normal 80.0-100.0 [facility] Comment on above: Order Comment: Speci men Type: BLOOD SPECIMENOrdering Facility: [facility] Address: [address] [place] [address] Performed By: #### 5 8410-2 ####[facility] [id number] [place] [address] [place] Nucleated RBC (Bld) [#/Vol] 10*3/uL Normal <0.01 [facility] Comment on above: Order Comment: Speci men Type: BLOOD SPECIMENOrdering Facility: [facility] Address: [address] [place] [address] Performed By: #### 5 8410-2 ####[facility] [id number] [place] [address] [place] Platelet mean volume (Bld) [Entitic vol] 9.4 fL Normal 9.0-12.7 [facility] Comment on above: Order Comment: Speci men Type: BLOOD SPECIMENOrdering Facility: [facility] Address: [address] [place], [place] [address] Performed By: #### 5 8410-2 ####[facility] LABCLIA [id number] [place] [address] [place] Platelets (Bld) [#/Vol] 178 10*3/uL Normal 150-400 [facility] Comment on above: Order Comment: Speci men Type: BLOOD SPECIMENOrdering Facility: [facility] Address: [address] [place] [address] Performed By: #### 5 8410-2 ####[facility] LABIA [id number] [place] [address] [place] RBC (Bld) [#/Vol] 3.89 10*6/uL Low 4.20-6.00 [facility] Comment on above: Order Comment: Speci men Type: BLOOD SPECIMENOrdering Facility: [facility] Address: [address] [place] [address] Performed By: #### 5 8410-2 ####[facility] LABIA [id number] [place] [id number] [place] WBC (Bld) [#/Vol] 5.90 10*3/uL Normal 3.70-11.00 [facility] Comment on above: Order Comment: Speci men Type: BLOOD SPECIMENOrdering Facility: [facility] Address: [address] [place] [address] Performed By: #### 5 8410-2 ####[facility] LABIA [id number] [place] [id number] [place] XR CHEST 1V FRONTAL PORTon 0 06-22-2024 XR CHEST 1V FRONTAL PORT Normal [facility] XR CHEST 2V FRONTAL/LATon XR CHEST 2V FRONTAL/LAT Normal [facility] Basic metabolic 2000 panelon 06-21-2024 Anion gap [Moles/Vol] 10 mmol/L Normal 8-15 [facility] Comment on above: Order Comment: Speci men Type: BLOOD SPECIMENOrdering Facility: [facility] Address: [address] [place], [place] [address] Performed By: #### 2 4321-2 ####[facility] LABCLIA [id number] [facility] [address] [address] [place] Calcium [Mass/Vol] 9.4 mg/dL Normal 8.5-10.2 [facility] Comment on above: Order Comment: Speci men Type: BLOOD SPECIMENOrdering Facility: [facility] Address: [address] [place] [address] Performed By: #### 2 4321-2 ####[facility] LABCLIA [id number] [facility] [address], [facility] [place] Chloride [Moles/Vol] 102 mmol/L Normal 98-107 [facility] Comment on above: Order Comment: Speci men Type: BLOOD SPECIMENOrdering Facility: [facility] Address: [address] [place] [address] Performed By: #### 2 4321-2 ####[facility] LABCLIA [id number] [facility] [place] [id number] [place] CO2 [Moles/Vol] 25 mmol/L Normal 22-30 [facility] Comment on above: Order Comment: Speci men Type: BLOOD SPECIMENOrdering Facility: [facility] Address: [address] [place], [place] [address] Performed By: #### 2 4321-2 ####[facility] LABCLIA [id number] [facility]ENU[facility]ALK [address] [place] [address] [place] Creatinine [Mass/Vol] 0.55 mg/dL Low 0.73-1.22 [facility] Comment on above: Order Comment: Speci men Type: BLOOD SPECIMENOrdering Facility: [facility] Address: [address] [place], [place] [address] Performed By: #### 2 4321-2 ####[facility] LABCLIA [id number] [place] [id number] [place] Creatinine and Glomerular filtration rate.predicted panel (S/P/Bld) 106 mL/min/1.73m??? Normal >=60 [facility] Comment on above: Order Comment: Vadimjoon adams Type: BLOOD SPECIMENOrdering Facility: [facility] Address: [address] [place] [address] Result Comment: Karon mated Glomerular Filtration Rate [...] actual GFR. Performed By: #### 2 4321-2 ####[facility] LABCLIA [id number] [place] [address] [place] Glucose [Mass/Vol] 98 mg/dL Normal 74-99 [facility] Comment on above: Order Comment: Rody adams Type: BLOOD SPECIMENOrdering Facility: [facility] Address: [address] [place] [address] Result Comment: The [place] [employer] Association (ADA) provides guidance for cutoff [...] Standards of Medical Care in Diabetes 2016, [place] [employer]. Diabetes Care. 2016.39(Suppl 1). Performed By: #### 2 4321-2 ####[facility] LABCLIA [id number] [place] [id number] [place] Potassium [Moles/Vol] 4.0 mmol/L Normal 3.7-5.1 [facility] Comment on above: Order Comment: Speci men Type: BLOOD SPECIMENOrdering Facility: [facility] Address: [address] [place] [address] Performed By: #### 2 4321-2 ####[facility] LABCLIA [id number] [address] [address] [place] Sodium [Moles/Vol] 137 mmol/L Normal 136-144 [facility] Comment on above: Order Comment: Speci men Type: BLOOD SPECIMENOrdering Facility: [facility] Address: [address] [place] [address] Performed By: #### 2 4321-2 ####[facility] LABCLIA [id number] [place] [address] [place] Urea nitrogen [Mass/Vol] 11 mg/dL Normal 9-24 [facility] Comment on above: Order Comment: Speci men Type: BLOOD SPECIMENOrdering Facility: [facility] Address: [address] [place] [address] Performed By: #### 2 4321-2 ####[facility] LABIA [id number] [place] [address] [place] CBC panel Auto (Bld)on 06-21 Erythrocyte distribution width (RBC) [Ratio] 14.6 % Normal 11.5-15.0 [facility] Comment on above: Order Comment: Speci men Type: BLOOD SPECIMENOrdering Facility: [facility] Address: [address] [place] [address] Performed By: #### 5 8410-2 ####[facility] LABIA [id number] [place] [address] [place] Hematocrit (Bld) [Volume fraction] 40.7 % Normal 39.0-51.0 [facility] Comment on above: Order Comment: Speci men Type: BLOOD SPECIMENOrdering Facility: [facility] Address: [address] [place] [address] Performed By: #### 5 8410-2 ####[facility] LABCLIA [id number] [place] [address] [place] Hemoglobin (Bld) [Mass/Vol] 13.6 g/dL Normal 13.0-17.0 [facility] Comment on above: Order Comment: Speci men Type: BLOOD SPECIMENOrdering Facility: [facility] Address: [address] [place] [address] Performed By: #### 5 8410-2 ####[facility] LABIA [id number] [place] [address] [place] MCH (RBC) [Entitic mass] 32.8 pg Normal 26.0-34.0 [facility] Comment on above: Order Comment: Speci men Type: BLOOD SPECIMENOrdering Facility: [facility] Address: [address] [place] [address] Performed By: #### 5 8410-2 ####[facility] LABIA [id number] [place] [address] [place] MCHC (RBC) [Mass/Vol] 33.4 g/dL Normal 30.5-36.0 [facility] Comment on above: Order Comment: Speci men Type: BLOOD SPECIMENOrdering Facility: [facility] Address: [address] [place] [address] Performed By: #### 5 8410-2 ####[facility] LABIA [id number] [place] [address] [place] MCV (RBC) [Entitic vol] 98.1 fL Normal 80.0-100.0 [facility] Comment on above: Order Comment: Speci men Type: BLOOD SPECIMENOrdering Facility: [facility] Address: [address] [place] [address] Performed By: #### 5 8410-2 ####[facility] LABIA [id number] [place] [address] [place] Nucleated RBC (Bld) [#/Vol] 10*3/uL Normal <0.01 [facility] Comment on above: Order Comment: Speci men Type: BLOOD SPECIMENOrdering Facility: [facility] Address: [address] [place] [address] Performed By: #### 5 8410-2 ####[facility] LABCLIA [id number] [place] [address] [place] Platelet mean volume (Bld) [Entitic vol] 9.0 fL Normal 9.0-12.7 [facility] Comment on above: Order Comment: Speci men Type: BLOOD SPECIMENOrdering Facility: [facility] Address: [address] [place] [address] Performed By: #### 5 8410-2 ####[facility] LABCLIA [id number] [place] [address] [place] Platelets (Bld) [#/Vol] 209 10*3/uL Normal 150-400 [facility] Comment on above: Order Comment: Speci men Type: BLOOD SPECIMENOrdering Facility: [facility] Address: [address] [place] [address] Performed By: #### 5 8410-2 ####[facility] LABIA [id number] [place] [address] [place] RBC (Bld) [#/Vol] 4.15 10*6/uL Low 4.20-6.00 [facility] Comment on above: Order Comment: Speci men Type: BLOOD SPECIMENOrdering Facility: [facility] Address: [address] [place] [address] Performed By: #### 5 8410-2 ####[facility] LABCLIA [id number] [place] [address] [place] WBC (Bld) [#/Vol] 9.46 10*3/uL Normal 3.70-11.00 [facility] Comment on above: Order Comment: Speci men Type: BLOOD SPECIMENOrdering Facility: [facility] Address: [address] [place] [address] Performed By: #### 5 8410-2 ####[facility] LABCLIA [id number] [facility] [address] [place] [address] [place] XR CHEST 1V FRONTAL PORTon 0 06-21-2024 XR CHEST 1V FRONTAL PORT Normal [facility] Basic metabolic 2000 panelon 06-20-2024 Anion gap [Moles/Vol] 14 mmol/L Normal 8-15 [facility] Comment on above: Order Comment: Speci men Type: BLOOD SPECIMENOrdering Facility: [facility] Address: [address] [place] [address] Performed By: #### 2 4321-2 ####[facility] LABCLIA [id number] [place] [id number] [place] Calcium [Mass/Vol] 9.7 mg/dL Normal 8.5-10.2 [facility] Comment on above: Order Comment: Speci men Type: BLOOD SPECIMENOrdering Facility: [facility] Address: [address] [place] [address] Performed By: #### 2 4321-2 ####[facility] LABCLIA [id number] [address] [address] [place] Chloride [Moles/Vol] 100 mmol/L Normal 98-107 [facility] Comment on above: Order Comment: Speci men Type: BLOOD SPECIMENOrdering Facility: [facility] Address: [address] [place] [address] Performed By: #### 2 4321-2 ####[facility] LABCLIA [id number] [facility] [address] [place] [address] [place] CO2 [Moles/Vol] 24 mmol/L Normal 22-30 [facility] Comment on above: Order Comment: Speci men Type: BLOOD SPECIMENOrdering Facility: [facility] Address: [address] [place] [id number] Performed By: #### 2 4321-2 ####[facility] LABIA [id number] [place] [id number] [place] Creatinine [Mass/Vol] 0.51 mg/dL Low 0.73-1.22 [facility] Comment on above: Order Comment: Rody men Type: BLOOD SPECIMENOrdering Facility: [facility] Address: [address] [place] [address] Performed By: #### 2 4321-2 ####[facility] LABIA [id number] [place] [address] [place] Creatinine and Glomerular filtration rate.predicted panel (S/P/Bld) 108 mL/min/1.73m??? Normal >=60 [facility] Comment on above: Order Comment: Rody adams Type: BLOOD SPECIMENOrdering Facility: [facility] Address: [address] [place] [address] Result Comment: Karon mated Glomerular Filtration Rate [...] actual GFR. Performed By: #### 2 4321-2 ####[facility] LABIA [id number] [place] [id number] [place] Glucose [Mass/Vol] 95 mg/dL Normal 74-99 [facility] Comment on above: Order Comment: Rody men Type: BLOOD SPECIMENOrdering Facility: [facility] Address: [address] [place] [address] Result Comment: The [place] Diabetes Association (ADA) provides guidance for cutoff [...] Standards of Medical Care in Diabetes 2016, [place] [employer]. Diabetes Care. 2016.39(Suppl 1). Performed By: #### 2 4321-2 ####[facility] LABCLIA [id number] [address] [address] [place] Potassium [Moles/Vol] 4.9 mmol/L Normal 3.7-5.1 [facility] Comment on above: Order Comment: Vadimi men Type: BLOOD SPECIMENOrdering Facility: [facility] Address: [address] [place] [address] Performed By: #### 2 4321-2 ####[facility] LABIA [id number] [place] [id number] [place] Sodium [Moles/Vol] 138 mmol/L Normal 136-144 [facility] Comment on above: Order Comment: Rody adams Type: BLOOD SPECIMENOrdering Facility: [facility] Address: [address] [place] [address] Performed By: #### 2 4321-2 ####[facility] LABIA [id number] [place] [id number] [place] Urea nitrogen [Mass/Vol] 9 mg/dL Normal 9-24 [facility] Comment on above: Order Comment: Vadimi men Type: BLOOD SPECIMENOrdering Facility: [facility] Address: [address] [place] [address] Performed By: #### 2 4321-2 ####[facility] LABIA [id number] [address] [address] [place] CASE MGT INIT ASSESon 2024 CASE MGT INIT ASSES Normal [facility] CBC panel Auto (Bld)on 06-20 Erythrocyte distribution width (RBC) [Ratio] 14.5 % Normal 11.5-15.0 [facility] Comment on above: Order Comment: Speci men Type: BLOOD SPECIMENOrdering Facility: [facility] Address: [address] [place] [address] Performed By: #### 5 8410-2 ####[facility] LABIA [id number] [place] [address] [place] Hematocrit (Bld) [Volume fraction] 41.9 % Normal 39.0-51.0 [facility] Comment on above: Order Comment: Speci men Type: BLOOD SPECIMENOrdering Facility: [facility] Address: [address] [place] [address] Performed By: #### 5 8410-2 ####[facility] LABIA [id number] [place] [address] [place] Hemoglobin (Bld) [Mass/Vol] 13.8 g/dL Normal 13.0-17.0 [facility] Comment on above: Order Comment: Speci men Type: BLOOD SPECIMENOrdering Facility: [facility] Address: [address] [place] [address] Performed By: #### 5 8410-2 ####[facility] LABIA [id number] [place] [address] [place] MCH (RBC) [Entitic mass] 32.9 pg Normal 26.0-34.0 [facility] Comment on above: Order Comment: Speci men Type: BLOOD SPECIMENOrdering Facility: [facility] Address: [address] [place] [address] Performed By: #### 5 8410-2 ####[facility] LABIA [id number] [place] [address] [place] MCHC (RBC) [Mass/Vol] 32.9 g/dL Normal 30.5-36.0 [facility] Comment on above: Order Comment: Speci men Type: BLOOD SPECIMENOrdering Facility: [facility] Address: [address] [place] [address] Performed By: #### 5 8410-2 ####[facility] LABIA [id number] [place] [id number] [place] MCV (RBC) [Entitic vol] 99.8 fL Normal 80.0-100.0 [facility] Comment on above: Order Comment: Speci men Type: BLOOD SPECIMENOrdering Facility: [facility] Address: [address] [place] [address] Performed By: #### 5 8410-2 ####[facility] [id number] [place] [address] [place] Nucleated RBC (Bld) [#/Vol] 10*3/uL Normal <0.01 [facility] Comment on above: Order Comment: Speci men Type: BLOOD SPECIMENOrdering Facility: [facility] Address: [address] [place] [address] Performed By: #### 5 8410-2 ####[facility] [id number] [place] [address] [place] Platelet mean volume (Bld) [Entitic vol] 9.0 fL Normal 9.0-12.7 [facility] Comment on above: Order Comment: Speci men Type: BLOOD SPECIMENOrdering Facility: [facility] Address: [address] [place] [address] Performed By: #### 5 8410-2 ####[facility] LABIA [id number] [place] [id number] [place] Platelets (Bld) [#/Vol] 222 10*3/uL Normal 150-400 [facility] Comment on above: Order Comment: Speci men Type: BLOOD SPECIMENOrdering Facility: [facility] Address: [address] [place] [address] Performed By: #### 5 8410-2 ####[facility] LABCLIA [id number] [place] [address] [place] RBC (Bld) [#/Vol] 4.20 10*6/uL Normal 4.20-6.00 [facility] Comment on above: Order Comment: Speci men Type: BLOOD SPECIMENOrdering Facility: [facility] Address: [address] [place] [address] Performed By: #### 5 8410-2 ####[facility] LABCLIA [id number] [place] [address] [place] WBC (Bld) [#/Vol] 11.36 10*3/uL High 3.70-11.00 [facility] Comment on above: Order Comment: Speci men Type: BLOOD SPECIMENOrdering Facility: [facility] Address: [address] [place] [address] Performed By: #### 5 8410-2 ####[facility] LABCLIA [id number] [place] [address] [place] CNPTOUTREACHon 06-20-2024 CNPTOUTREACH Normal [facility] XR CHEST 1V FRONTAL PORTon 0 06-20-2024 XR CHEST 1V FRONTAL PORT Normal [facility] ANES POSTPROC EVALon 025 ANES POSTPROC EVAL Normal [facility] ANES PRE-OPon 06-19-2024 ANES PRE-OP Normal [facility] BRIEF OP NOTon 06-19-2024 BRIEF OP NOT Normal [facility] OPERATIVE NOon 06-19-2024 OPERATIVE NO Normal [facility] XR CHEST 1V FRONTAL PORTon 0 06-19-2024 XR CHEST 1V FRONTAL PORT Normal [facility] CNOVon 06-18-2024 CNOV Normal [facility] US ABD AORTA COMPLETE VAS LA Bon 06-18-2024 US ABD AORTA COMPLETE VAS LAB Normal [facility] CNOVon 06-13-2024 CNOV Normal [facility] CBC W Auto Differential pane l (Bld)on 06-07-2024 Basophils (Bld) [#/Vol] 0.11 10*3/uL High <0.11 [facility] Comment on above: Order Comment: Speci men Type: BLOOD SPECIMENOrdering Facility: [facility] Address: [address] [place] [address] Performed By: #### 5 7021-8 ####[facility] LABCLIA [id number] [facility] [address], [place] [address] [place] Basophils/100 WBC (Bld) 1.6 % Normal [facility] Comment on above: Order Comment: Speci men Type: BLOOD SPECIMENOrdering Facility: [facility] Address: [address] [place] [address] Performed By: #### 5 7021-8 ####[facility] LABCLIA [id number] [facility] [place] [address] [place] Differential cell count method Nom (Bld) Auto Normal [facility] Comment on above: Order Comment: Speci men Type: BLOOD SPECIMENOrdering Facility: [facility] Address: [address] [place] [address] Performed By: #### 5 7021-8 ####[facility] LABCLIA [id number] [place] [address] [place] Eosinophils (Bld) [#/Vol] 0.17 10*3/uL Normal <0.46 [facility] Comment on above: Order Comment: Speci men Type: BLOOD SPECIMENOrdering Facility: [facility] Address: [address] [place] [address] Performed By: #### 5 7021-8 ####[facility] LABCLIA [id number] [place] [address] [place] Eosinophils/100 WBC (Bld) 2.4 % Normal [facility] Comment on above: Order Comment: Speci men Type: BLOOD SPECIMENOrdering Facility: [facility] Address: [address] [place] [address] Performed By: #### 5 7021-8 ####[facility] LABCLIA [id number] [place] [address] [place] Erythrocyte distribution width (RBC) [Ratio] 14.4 % Normal 11.5-15.0 [facility] Comment on above: Order Comment: Speci men Type: BLOOD SPECIMENOrdering Facility: [facility] Address: [address] [place] [address] Performed By: #### 5 7021-8 ####[facility] LABIA [id number] [place] [address] [place] Hematocrit (Bld) [Volume fraction] 49.1 % Normal 39.0-51.0 [facility] Comment on above: Order Comment: Speci men Type: BLOOD SPECIMENOrdering Facility: [facility] Address: [address] [place] [address] Performed By: #### 5 7021-8 ####[facility] LABIA [id number] [place] [address] [place] Hemoglobin (Bld) [Mass/Vol] 15.9 g/dL Normal 13.0-17.0 [facility] Comment on above: Order Comment: Speci men Type: BLOOD SPECIMENOrdering Facility: [facility] Address: [address] [place] [address] Performed By: #### 5 7021-8 ####[facility] LABIA [id number] [place] [address] [place] Immature granulocytes (Bld) [#/Vol] 0.03 10*3/uL Normal <0.10 [facility] Comment on above: Order Comment: Speci men Type: BLOOD SPECIMENOrdering Facility: [facility] Address: [address] [place] [address] Performed By: #### 5 7021-8 ####[facility] LABCLIA [id number] [place] [id number] [place] Immature granulocytes/100 WBC (Bld) 0.4 % Normal [facility] Comment on above: Order Comment: Speci men Type: BLOOD SPECIMENOrdering Facility: [facility] Address: [address] [place] [address] Performed By: #### 5 7021-8 ####[facility] LABCLIA [id number] [place] [address] [place] Lymphocytes (Bld) [#/Vol] 1.22 10*3/uL Normal 1.00-4.00 [facility] Comment on above: Order Comment: Speci men Type: BLOOD SPECIMENOrdering Facility: [facility] Address: [address] [place] [address] Performed By: #### 5 7021-8 ####[facility] LABCLIA [id number] [place] [address] [place] Lymphocytes/100 WBC (Bld) 17.5 % Normal [facility] Comment on above: Order Comment: Speci men Type: BLOOD SPECIMENOrdering Facility: [facility] Address: [address] [place] [address] Performed By: #### 5 7021-8 ####[facility] LABCLIA [id number] [place] [address] [place] MCH (RBC) [Entitic mass] 32.1 pg Normal 26.0-34.0 [facility] Comment on above: Order Comment: Speci men Type: BLOOD SPECIMENOrdering Facility: [facility] Address: [address] [place], [place] [address] Performed By: #### 5 7021-8 ####[facility] LABCLIA [id number] [place] [id number] [place] MCHC (RBC) [Mass/Vol] 32.4 g/dL Normal 30.5-36.0 [facility] Comment on above: Order Comment: Speci men Type: BLOOD SPECIMENOrdering Facility: [facility] Address: [address] [place] [address] Performed By: #### 5 7021-8 ####[facility] LABCLIA [id number] [place] [address] [place] MCV (RBC) [Entitic vol] 99.2 fL Normal 80.0-100.0 [facility] Comment on above: Order Comment: Speci men Type: BLOOD SPECIMENOrdering Facility: [facility] Address: [address] [place] [address] Performed By: #### 5 7021-8 ####[facility] LABCLIA [id number] [place] [address] [place] Monocytes (Bld) [#/Vol] 0.79 10*3/uL Normal <0.87 [facility] Comment on above: Order Comment: Speci men Type: BLOOD SPECIMENOrdering Facility: [facility] Address: [address] [place] [address] Performed By: #### 5 7021-8 ####[facility] LABCLIA [id number] [place] [address] [place] Monocytes/100 WBC (Bld) 11.3 % Normal [facility] Comment on above: Order Comment: Speci men Type: BLOOD SPECIMENOrdering Facility: [facility] Address: [address] [place] [address] Performed By: #### 5 7021-8 ####[facility] LABCLIA [id number] [place] [id number] [place] Neutrophils (Bld) [#/Vol] 4.66 10*3/uL Normal 1.45-7.50 [facility] Comment on above: Order Comment: Speci men Type: BLOOD SPECIMENOrdering Facility: [facility] Address: [address] [place] [address] Performed By: #### 5 7021-8 ####[facility] LABCLIA [id number] [place] [address] [place] Neutrophils/100 WBC (Bld) 66.8 % Normal [facility] Comment on above: Order Comment: Speci men Type: BLOOD SPECIMENOrdering Facility: [facility] Address: [address] [place] [address] Performed By: #### 5 7021-8 ####[facility] LABCLIA [id number] [place] [address] [place] Nucleated RBC (Bld) [#/Vol] 10*3/uL Normal <0.01 [facility] Comment on above: Order Comment: Speci men Type: BLOOD SPECIMENOrdering Facility: [facility] Address: [address] [place] [address] Performed By: #### 5 7021-8 ####[facility] LABIA [id number] [place] [address] [place] Nucleated RBC/100 WBC (Bld) [Ratio] 0.0 /100 WBC Normal [facility] Comment on above: Order Comment: Speci men Type: BLOOD SPECIMENOrdering Facility: [facility] Address: [address] [place] [address] Performed By: #### 5 7021-8 ####[facility] LABIA [id number] [place] [address] [place] Platelet mean volume (Bld) [Entitic vol] 8.9 fL Low 9.0-12.7 [facility] Comment on above: Order Comment: Speci men Type: BLOOD SPECIMENOrdering Facility: [facility] Address: [address] [place] [address] Performed By: #### 5 7021-8 ####[facility] LABCLIA [id number] [place] [address] [place] Platelets (Bld) [#/Vol] 244 10*3/uL Normal 150-400 [facility] Comment on above: Order Comment: Speci men Type: BLOOD SPECIMENOrdering Facility: [facility] Address: [address] [place] [address] Performed By: #### 5 7021-8 ####[facility] LABCLIA [id number] [address] [address] [place] RBC (Bld) [#/Vol] 4.95 10*6/uL Normal 4.20-6.00 [facility] Comment on above: Order Comment: Speci men Type: BLOOD SPECIMENOrdering Facility: [facility] Address: [address] [place] [address] Performed By: #### 5 7021-8 ####[facility] LABIA [id number] [address] [address] [place] WBC (Bld) [#/Vol] 6.98 10*3/uL Normal 3.70-11.00 [facility] Comment on above: Order Comment: Speci men Type: BLOOD SPECIMENOrdering Facility: [facility] Address: [address] [place] [address] Performed By: #### 5 7021-8 ####[facility] LABIA [id number] [address] [address] [place] CNOVon 06-07-2024 CNOV Normal [facility] CNOV Normal [facility] Comprehensive metabolic 2000 panelon 06-07-2024 Albumin [Mass/Vol] 4.6 g/dL Normal 3.9-4.9 [facility] Comment on above: Order Comment: Speci men Type: BLOOD SPECIMENOrdering Facility: [facility] Address: [address] [place] [address] Performed By: #### 2 4323-8 ####[facility] LABIA [id number] [address] [address] [place] ALP [Catalytic activity/Vol] 85 U/L Normal 38-113 [facility] Comment on above: Order Comment: Speci men Type: BLOOD SPECIMENOrdering Facility: [facility] Address: [address] [place] [id number] Performed By: #### 2 4323-8 ####[facility] LABCLIA [id number] [address] [place] [address] [place] ALT [Catalytic activity/Vol] 24 U/L Normal 10-54 [facility] Comment on above: Order Comment: Speci men Type: BLOOD SPECIMENOrdering Facility: [facility] Address: [address] [place] [address] Performed By: #### 2 4323-8 ####[facility] LABCLIA [id number] [address], [facility] [place] Anion gap [Moles/Vol] 11 mmol/L Normal 8-15 [facility] Comment on above: Order Comment: Speci men Type: BLOOD SPECIMENOrdering Facility: [facility] Address: [address] [place] [address] Performed By: #### 2 4323-8 ####[facility] LABCLIA [id number] [address], [facility]95 [place] [Catalytic activity/Vol] 19 U/L Normal 14-40 [facility] Comment on above: Order Comment: Speci men Type: BLOOD SPECIMENOrdering Facility: [facility] Address: [address] [place] [address] Performed By: #### 2 4323-8 ####[facility] LABCLIA [id number] [facility] [address] [place] [address] [place] Bilirubin [Mass/Vol] 0.7 mg/dL Normal 0.2-1.3 [facility] Comment on above: Order Comment: Speci men Type: BLOOD SPECIMENOrdering Facility: [facility] Address: [address] [place], [place] [address] Performed By: #### 2 4323-8 ####[facility] LABCLIA [id number] [facility] [place] [address] [place] Calcium [Mass/Vol] 10.1 mg/dL Normal 8.5-10.2 [facility] Comment on above: Order Comment: Speci men Type: BLOOD SPECIMENOrdering Facility: [facility] Address: [address] [place] [address] Performed By: #### 2 4323-8 ####[facility] LABCLIA [id number] [place] [address] [place] Chloride [Moles/Vol] 101 mmol/L Normal 98-107 [facility] Comment on above: Order Comment: Speci men Type: BLOOD SPECIMENOrdering Facility: [facility] Address: [address] [place] [address] Performed By: #### 2 4323-8 ####[facility] LABCLIA [id number] [place] [address] [place] CO2 [Moles/Vol] 28 mmol/L Normal 22-30 [facility] Comment on above: Order Comment: Speci men Type: BLOOD SPECIMENOrdering Facility: [facility] Address: [address] [place] [address] Performed By: #### 2 4323-8 ####[facility] LABCLIA [id number] [place] [address] [place] Creatinine [Mass/Vol] 0.55 mg/dL Low 0.73-1.22 [facility] Comment on above: Order Comment: Speci men Type: BLOOD SPECIMENOrdering Facility: [facility] Address: [address] [place] [address] Performed By: #### 2 4323-8 ####[facility] LABCLIA [id number] [place] [address] [place] Creatinine and Glomerular filtration rate.predicted panel (S/P/Bld) 106 mL/min/1.73m??? Normal >=60 [facility] Comment on above: Order Comment: Speci men Type: BLOOD SPECIMENOrdering Facility: [facility] Address: [address] [place] [address] Result Comment: Karon mated Glomerular Filtration Rate [...] actual GFR. Performed By: #### 2 4323-8 ####[facility] LABIA [id number] [place] [address] [place] Glucose [Mass/Vol] 127 mg/dL High 74-99 [facility] Comment on above: Order Comment: Rody adams Type: BLOOD SPECIMENOrdering Facility: [facility] Address: [address] [place] [address] Result Comment: The [place] Diabetes Association (ADA) provides guidance for cutoff [...] Standards of Medical Care in Diabetes 2016, [place] [employer]. Diabetes Care. 2016.39(Suppl 1). Performed By: #### 2 4323-8 ####[facility] LABIA [id number] [place] [id number] [place] Potassium [Moles/Vol] 4.5 mmol/L Normal 3.7-5.1 [facility] Comment on above: Order Comment: Rody adams Type: BLOOD SPECIMENOrdering Facility: [facility] Address: [address] [place] [address] Performed By: #### 2 4323-8 ####[facility] LABCLIA [id number] [place] [address] [place] Protein [Mass/Vol] 7.4 g/dL Normal 6.3-8.0 [facility] Comment on above: Order Comment: Speci men Type: BLOOD SPECIMENOrdering Facility: [facility] Address: [address] [place] [address] Performed By: #### 2 4323-8 ####[facility] LABIA [id number] [place] [address] [place] Sodium [Moles/Vol] 140 mmol/L Normal 136-144 [facility] Comment on above: Order Comment: Speci men Type: BLOOD SPECIMENOrdering Facility: [facility] Address: [address] [place] [address] Performed By: #### 2 4323-8 ####[facility] LABIA [id number] [place] [address] [place] Urea nitrogen [Mass/Vol] 6 mg/dL Low 9-24 [facility] Comment on above: Order Comment: Speci men Type: BLOOD SPECIMENOrdering Facility: [facility] Address: [address] [place] [address] Performed By: #### 2 4323-8 ####[facility] LABIA [id number] [place] [address] [place] PT panel Coag (PPP)on 2024 INR Coag (PPP) [Relative time] 1.1 {INR} Normal 0.9-1.3 [facility] Comment on above: Order Comment: Speci men Type: BLOOD SPECIMENOrdering Facility: [facility] Address: [address] [place] [address] Result Comment: Mita min K Antagonist (VKA) Therapeutic Range: INR 2 to 3 (Target INR of 2.5)Note: For patients treated with VKA drugs, such as warfarin, the [place] [employer] 2012 Guideline recommends [...] al. Chest 2012, 141:7S-47SNishimura RA, et al. [facility] 2017, 70: 252-289 Performed By: #### 3 4528-0, 07102-1 ####[facility] LABIA [id number] [place] [address] [place] PT Coag (PPP) [Time] 11.5 s Normal 9.7-13.0 [facility] Comment on above: Order Comment: Speci men Type: BLOOD SPECIMENOrdering Facility: [facility] Address: [address] [place] [address] Performed By: #### 3 4528-0, 18617-4 ####[facility] [id number] [place] [address] [place] STAPHYLOCOCCUS AUREUS AND MR SA SCREEN, PCR, NASALon 06-07-2024 S. aureus and MRSA panel WENDY+probe (Nose) Not detected Normal Not Detected [facility] Comment on above: Order Comment: Speci men Type: SWABOrdering Facility: [facility] Address: [address] [place] [address] Performed By: #### S APCR ####[facility] LABIA [id number] [address] [place] TYPE AND SCREEN,30 DAYon ABO O Normal [facility] Comment on above: Order Comment: Speci men Type: BLOOD SPECIMENOrdering Facility: [facility] Address: [address] [place] [address] Performed By: #### T SCR30 ####[facility] BLOOD BANKCLIA [id number] [place] [address] [place] Rh Nom (Bld) Positive Normal [facility] Comment on above: Order Comment: Speci men Type: BLOOD SPECIMENOrdering Facility: [facility] Address: [address] [place] [address] Performed By: #### T SCR30 ####[facility] BLOOD BANKIA [id number] [place] [address] [place] URINALYSIS, DIPSTICK ONLYon 06-07-2024 Bilirubin Ql (U) 1+ Abnormal Negative [facility] Comment on above: Order Comment: Speci men Type: URINE SPECIMENOrdering Facility: [facility] Address: [address] [place] [address] Result Comment: Sugg est correlation with clinical findings and serum bilirubin if clinically indicated. Performed By: #### U A ####[facility] LABCLIA [id number] [place] [address] [place] Clarity (Unsp spec) Clear Normal Clear [facility] Comment on above: Order Comment: Speci men Type: URINE SPECIMENOrdering Facility: [facility] Address: [address] [place] [address] Performed By: #### U A ####[facility] LABCLIA [id number] [place] [address] [place] Color (U) Dark Yellow Abnormal Yellow [facility] Comment on above: Order Comment: Speci men Type: URINE SPECIMENOrdering Facility: [facility] Address: [address] [place] [address] Performed By: #### U A ####[facility] LABCLIA [id number] [place] [id number] [place] Glucose Test strip (U) [Mass/Vol] Negative Normal Negative [facility] Comment on above: Order Comment: Speci men Type: URINE SPECIMENOrdering Facility: [facility] Address: [address] [place] [address] Performed By: #### U A ####[facility] LABCLIA [id number] [address] [place] [address] [place] Hemoglobin Ql (U) Negative Normal Negative [facility] Comment on above: Order Comment: Speci men Type: URINE SPECIMENOrdering Facility: [facility] Address: [address] [place] [address] Performed By: #### U A ####[facility] LABCLIA [id number] [address], [place] [address] [place] Ketones Ql (U) Trace Abnormal Negative [facility] Comment on above: Order Comment: Speci men Type: URINE SPECIMENOrdering Facility: [facility] Address: [address] [place] [address] Performed By: #### U A ####[facility] LABCLIA [id number] [address], [facility] [place] Leukocyte esterase Test strip Ql (U) Negative Normal Negative [facility] Comment on above: Order Comment: Speci men Type: URINE SPECIMENOrdering Facility: [facility] Address: [address] [place] [address] Performed By: #### U A ####[facility] LABCLIA [id number] [address] [place] [address] [place] Nitrite Ql (U) Negative Normal Negative [facility] Comment on above: Order Comment: Speci men Type: URINE SPECIMENOrdering Facility: [facility] Address: [address] [place] [address] Performed By: #### U A ####[facility] LABCLIA [id number] [address] [place] [address] [place] pH (U) 6.0 [pH] Normal <8.5 [facility] Comment on above: Order Comment: Speci men Type: URINE SPECIMENOrdering Facility: [facility] Address: [address] [place] [address] Performed By: #### U A ####[facility] LABIA [id number] [place] [id number] [place] Protein (U) [Mass/Vol] 1+ Abnormal Negative [facility] Comment on above: Order Comment: Speci men Type: URINE SPECIMENOrdering Facility: [facility] Address: [address] [place] [address] Performed By: #### U A ####[facility] LABIA [id number] [place] [address] [place] Specific gravity (U) [Rel density] 1.025 Normal 1.005-1.030 [facility] Comment on above: Order Comment: Speci men Type: URINE SPECIMENOrdering Facility: [facility] Address: [address] [place] [address] Performed By: #### U A ####[facility] LABIA [id number] [place] [id number] [place] Urobilinogen Ql (U) 1.0 EU/dL Normal 0.2-1.0 EU/dL Cl [facility] Comment on above: Order Comment: Speci men Type: URINE SPECIMENOrdering Facility: [facility] Address: [address] [place] [address] Performed By: #### U A ####[facility] LABIA [id number] [place] [id number] [place] XR CHEST 2V FRONTAL/LATon XR CHEST 2V FRONTAL/LAT Normal [facility] XR Chest PA and Lateralon IMPRESSION: 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: PSCHerbert Transcribe Date/Time: Jun 07 2024 1:52P Dictated by : JEANETTE MENJIVAR MD This examination was interpreted and the report reviewed and electronically signed by: POPEYE RODRIGUEZ MD on Jun 07 2024 4:23PM [facility] DIVISION OF RADIOLOGY * * *Final Report* [...] the thoracic spine. DIVISION OF RADIOLOGY Provider, [facility] - 06/07/2024 * * *Final Report* * [...] right basilar pneumothorax without significant interval change. 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: IMMANUEL Transcribe Date/Time: Jun 07 2024 1:52P Dictated by : JEANETTE MENJIVAR MD This examination was interpreted and the report reviewed and electronically signed by: POPEYE RODRIGUEZ MD on Jun 07 2024 4:23PM EST [facility] Radiology Study observation (narrative) [facility] XR Chest PA and LateralOrder ed By: Ccf Provider on 06-07-2024 [facility] aPTT PPPon 06-07-2024 aPTT Coag (PPP) [Time] 27.9 s Normal 23.0-32.4 [facility] Comment on above: Order Comment: Speci men Type: BLOOD SPECIMENOrdering Facility: [facility] Address: [address] [place] [address] Performed By: #### 3 4528-0, 47410-0 ####[facility] LABCLIA [id number] [address] [place] CNPNon 05-22-2024 CNPN Normal [facility] CNOVon 05-17-2024 CNOV Normal [facility] XR CHEST 2V FRONTAL/LATon XR CHEST 2V FRONTAL/LAT Normal [facility] XR Chest PA and Lateralon IMPRESSION: See result. 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: PSCB Transcribe Date/Time: May 17 2024 3:17P Dictated by : QUAN JACQUES MD This examination was interpreted and the report reviewed and electronically signed by: QUAN JACQUES MD on May 17 2024 3:18PM [facility] DIVISION OF RADIOLOGY * * *Final Report* [...] soft tissues: Unremarkable. IMPRESSION IMPRESSION: See result. 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: IMMANUEL Transcribe Date/Time: May 17 2024 3:17P Dictated by : QUAN JACQUES MD This examination was interpreted and the report reviewed and electronically signed by: QUAN JACQUES MD on May 17 2024 3:18PM EST [facility] Radiology Study observation (narrative) [facility] XR Chest PA and LateralOrder ed By: Ccf Provider on 05-17-2024 [facility] CNPTOUTREACHon 05-13-2024 CNPTOUTREACH Normal [facility] Basic metabolic 2000 panelon 05-12-2024 Anion gap [Moles/Vol] 11 mmol/L Normal 8-15 [facility] Comment on above: Order Comment: Speci men Type: BLOOD SPECIMENOrdering Facility: [facility] Address: [address] [place] [address] Performed By: #### 2 4321-2 ####[facility] LABCLIA [id number] [place] [address] [place] Calcium [Mass/Vol] 9.3 mg/dL Normal 8.5-10.2 [facility] Comment on above: Order Comment: Speci men Type: BLOOD SPECIMENOrdering Facility: [facility] Address: [address] [place] [address] Performed By: #### 2 4321-2 ####[facility] LABCLIA [id number] [place] [id number] [place] Chloride [Moles/Vol] 105 mmol/L Normal 98-107 [facility] Comment on above: Order Comment: Speci men Type: BLOOD SPECIMENOrdering Facility: [facility] Address: [address] [place] [address] Performed By: #### 2 4321-2 ####[facility] LABCLIA [id number] [place] [id number] [place] CO2 [Moles/Vol] 23 mmol/L Normal 22-30 [facility] Comment on above: Order Comment: Speci men Type: BLOOD SPECIMENOrdering Facility: [facility] Address: [address] [place] [address] Performed By: #### 2 4321-2 ####[facility] LABCLIA [id number] [place] [id number] [place] Creatinine [Mass/Vol] 0.59 mg/dL Low 0.73-1.22 [facility] Comment on above: Order Comment: Speci men Type: BLOOD SPECIMENOrdering Facility: [facility] Address: [address] [place] [address] Performed By: #### 2 4321-2 ####[facility] LABIA [id number] [place] [id number] [place] Creatinine and Glomerular filtration rate.predicted panel (S/P/Bld) 104 mL/min/1.73m??? Normal >=60 [facility] Comment on above: Order Comment: Speci men Type: BLOOD SPECIMENOrdering Facility: [facility] Address: [address] [place] [address] Result Comment: Karon mated Glomerular Filtration Rate [...] actual GFR. Performed By: #### 2 4321-2 ####[facility] LABCLIA [id number] [address] [address] [place] Glucose [Mass/Vol] 104 mg/dL High 74-99 [facility] Comment on above: Order Comment: Speci men Type: BLOOD SPECIMENOrdering Facility: [facility] Address: [address] [place] [address] Result Comment: The [place] [employer] Association (ADA) provides guidance for cutoff [...] Standards of Medical Care in Diabetes 2016, [place] [employer]. Diabetes Care. 2016.39(Suppl 1). Performed By: #### 2 4321-2 ####[facility] LABCLIA [id number] [address] [address] [place] Potassium [Moles/Vol] 3.9 mmol/L Normal 3.7-5.1 [facility] Comment on above: Order Comment: Rody adams Type: BLOOD SPECIMENOrdering Facility: [facility] Address: [address] [place] [address] Performed By: #### 2 4321-2 ####[facility] LABCLIA [id number] [facility] [address] [address] [place] Sodium [Moles/Vol] 139 mmol/L Normal 136-144 [facility] Comment on above: Order Comment: Speci men Type: BLOOD SPECIMENOrdering Facility: [facility] Address: [address] [place] [address] Performed By: #### 2 4321-2 ####[facility] LABCLIA [id number] [address] [address] [place] Urea nitrogen [Mass/Vol] 9 mg/dL Normal 9-24 [facility] Comment on above: Order Comment: Speci men Type: BLOOD SPECIMENOrdering Facility: [facility] Address: [address] [place] [address] Performed By: #### 2 4321-2 ####[facility] LABIA [id number] [address], [facility] [place] CBC panel Auto (Bld)on 05-12 Erythrocyte distribution width (RBC) [Ratio] 14.1 % Normal 11.5-15.0 [facility] Comment on above: Order Comment: Speci men Type: BLOOD SPECIMENOrdering Facility: [facility] Address: [address] [place] [address] Performed By: #### 5 8410-2 ####[facility] LABIA [id number] [place] [id number] [place] Hematocrit (Bld) [Volume fraction] 39.6 % Normal 39.0-51.0 [facility] Comment on above: Order Comment: Speci men Type: BLOOD SPECIMENOrdering Facility: [facility] Address: [address] [place] [address] Performed By: #### 5 8410-2 ####[facility] LABIA [id number] [place] [id number] [place] Hemoglobin (Bld) [Mass/Vol] 13.4 g/dL Normal 13.0-17.0 [facility] Comment on above: Order Comment: Speci men Type: BLOOD SPECIMENOrdering Facility: [facility] Address: [address] [place] [address] Performed By: #### 5 8410-2 ####[facility] LABIA [id number] [place] [address] [place] MCH (RBC) [Entitic mass] 31.4 pg Normal 26.0-34.0 [facility] Comment on above: Order Comment: Speci men Type: BLOOD SPECIMENOrdering Facility: [facility] Address: [address] [place] [address] Performed By: #### 5 8410-2 ####[facility] LABIA [id number] [place] [address] [place] MCHC (RBC) [Mass/Vol] 33.8 g/dL Normal 30.5-36.0 [facility] Comment on above: Order Comment: Speci men Type: BLOOD SPECIMENOrdering Facility: [facility] Address: [address] [place] [address] Performed By: #### 5 8410-2 ####[facility] LABIA [id number] [place] [address] [place] MCV (RBC) [Entitic vol] 92.7 fL Normal 80.0-100.0 [facility] Comment on above: Order Comment: Speci men Type: BLOOD SPECIMENOrdering Facility: [facility] Address: [address] [place] [address] Performed By: #### 5 8410-2 ####[facility] LABIA [id number] [place] [address] [place] Nucleated RBC (Bld) [#/Vol] 10*3/uL Normal <0.01 [facility] Comment on above: Order Comment: Speci men Type: BLOOD SPECIMENOrdering Facility: [facility] Address: [address] [place] [address] Performed By: #### 5 8410-2 ####[facility] LABIA [id number] [id number] [address] [place] Platelet mean volume (Bld) [Entitic vol] 8.8 fL Low 9.0-12.7 [facility] Comment on above: Order Comment: Speci men Type: BLOOD SPECIMENOrdering Facility: [facility] Address: [address] [place] [address] Performed By: #### 5 8410-2 ####[facility] LABCLIA [id number] [place] [address] [place] Platelets (Bld) [#/Vol] 191 10*3/uL Normal 150-400 [facility] Comment on above: Order Comment: Speci men Type: BLOOD SPECIMENOrdering Facility: [facility] Address: [address] [place] [address] Performed By: #### 5 8410-2 ####[facility] LABCLIA [id number] [place] [address] [place] RBC (Bld) [#/Vol] 4.27 10*6/uL Normal 4.20-6.00 [facility] Comment on above: Order Comment: Speci men Type: BLOOD SPECIMENOrdering Facility: [facility] Address: [address] [place] [address] Performed By: #### 5 8410-2 ####[facility] LABCLIA [id number] [place] [address] [place] WBC (Bld) [#/Vol] 5.48 10*3/uL Normal 3.70-11.00 [facility] Comment on above: Order Comment: Speci men Type: BLOOD SPECIMENOrdering Facility: [facility] Address: [address] [place] [address] Performed By: #### 5 8410-2 ####[facility] LABCLIA [id number] [place] [id number] [place] CNDSon 05-12-2024 CNDS Normal [facility] XR CHEST 1V FRONTAL PORTon 0 05-12-2024 XR CHEST 1V FRONTAL PORT Normal [facility] Basic metabolic 2000 panelon 05-11-2024 Anion gap [Moles/Vol] 10 mmol/L Normal 8-15 [facility] Comment on above: Order Comment: Speci men Type: BLOOD SPECIMENOrdering Facility: [facility] Address: [address] [place] [address] Performed By: #### 2 4321-2 ####[facility] LABCLIA [id number] [place] [id number] [place] Calcium [Mass/Vol] 9.4 mg/dL Normal 8.5-10.2 [facility] Comment on above: Order Comment: Speci men Type: BLOOD SPECIMENOrdering Facility: [facility] Address: [address] [place] [address] Performed By: #### 2 4321-2 ####[facility] LABCLIA [id number] [place] [address] [place] Chloride [Moles/Vol] 101 mmol/L Normal 98-107 [facility] Comment on above: Order Comment: Speci men Type: BLOOD SPECIMENOrdering Facility: [facility] Address: [address] [place] [address] Performed By: #### 2 4321-2 ####[facility] LABCLIA [id number] [place] [id number] [place] CO2 [Moles/Vol] 26 mmol/L Normal 22-30 [facility] Comment on above: Order Comment: Speci men Type: BLOOD SPECIMENOrdering Facility: [facility] Address: [address] [place] [address] Performed By: #### 2 4321-2 ####[facility] LABCLIA [id number] [place] [id number] [place] Creatinine [Mass/Vol] 0.58 mg/dL Low 0.73-1.22 [facility] Comment on above: Order Comment: Speci men Type: BLOOD SPECIMENOrdering Facility: [facility] Address: [address] [place] [address] Performed By: #### 2 4321-2 ####[facility] LABIA [id number] [place] [address] [place] Creatinine and Glomerular filtration rate.predicted panel (S/P/Bld) 104 mL/min/1.73m??? Normal >=60 [facility] Comment on above: Order Comment: Rody men Type: BLOOD SPECIMENOrdering Facility: [facility] Address: [address] [place] [address] Result Comment: Karon mated Glomerular Filtration Rate [...] actual GFR. Performed By: #### 2 4321-2 ####[facility] LABIA [id number] [place] [address] [place] Glucose [Mass/Vol] 111 mg/dL High 74-99 [facility] Comment on above: Order Comment: Rody adams Type: BLOOD SPECIMENOrdering Facility: [facility] Address: [address] [place] [address] Result Comment: The [place] [employer] (ADA) provides guidance for cutoff [...] Standards of Medical Care in Diabetes 2016, [place] [employer]. Diabetes Care. 2016.39(Suppl 1). Performed By: #### 2 4321-2 ####[facility] LABCLIA [id number] [place] [id number] [place] Potassium [Moles/Vol] 3.7 mmol/L Normal 3.7-5.1 [facility] Comment on above: Order Comment: Speci men Type: BLOOD SPECIMENOrdering Facility: [facility] Address: [address] [place] [address] Performed By: #### 2 4321-2 ####[facility] LABCLIA [id number] [place] [id number] [place] Sodium [Moles/Vol] 137 mmol/L Normal 136-144 [facility] Comment on above: Order Comment: Speci men Type: BLOOD SPECIMENOrdering Facility: [facility] Address: [address] [place] [address] Performed By: #### 2 4321-2 ####[facility] LABIA [id number] [place] [address] [place] Urea nitrogen [Mass/Vol] 10 mg/dL Normal 9-24 [facility] Comment on above: Order Comment: Speci men Type: BLOOD SPECIMENOrdering Facility: [facility] Address: [address] [place] [address] Performed By: #### 2 4321-2 ####[facility] LABIA [id number] [place] [address] [place] CBC panel Auto (Bld)on 05-11 Erythrocyte distribution width (RBC) [Ratio] 13.9 % Normal 11.5-15.0 [facility] Comment on above: Order Comment: Speci men Type: BLOOD SPECIMENOrdering Facility: [facility] Address: [address] [place] [address] Performed By: #### 5 8410-2 ####[facility] LABCLIA [id number] [place] [id number] [place] Hematocrit (Bld) [Volume fraction] 41.8 % Normal 39.0-51.0 [facility] Comment on above: Order Comment: Speci men Type: BLOOD SPECIMENOrdering Facility: [facility] Address: [address] [place] [address] Performed By: #### 5 8410-2 ####[facility] LABIA [id number] [place] [address] [place] Hemoglobin (Bld) [Mass/Vol] 14.2 g/dL Normal 13.0-17.0 [facility] Comment on above: Order Comment: Speci men Type: BLOOD SPECIMENOrdering Facility: [facility] Address: [address] [place] [address] Performed By: #### 5 8410-2 ####[facility] LABIA [id number] [place] [address] [place] MCH (RBC) [Entitic mass] 31.8 pg Normal 26.0-34.0 [facility] Comment on above: Order Comment: Speci men Type: BLOOD SPECIMENOrdering Facility: [facility] Address: [address] [place] [address] Performed By: #### 5 8410-2 ####[facility] LABIA [id number] [place] [address] [place] MCHC (RBC) [Mass/Vol] 34.0 g/dL Normal 30.5-36.0 [facility] Comment on above: Order Comment: Speci men Type: BLOOD SPECIMENOrdering Facility: [facility] Address: [address] [place] [address] Performed By: #### 5 8410-2 ####[facility] LABIA [id number] [place] [address] [place] MCV (RBC) [Entitic vol] 93.7 fL Normal 80.0-100.0 [facility] Comment on above: Order Comment: Speci men Type: BLOOD SPECIMENOrdering Facility: [facility] Address: [address] [place] [address] Performed By: #### 5 8410-2 ####[facility] LABCLIA [id number] [place] [address] [place] Nucleated RBC (Bld) [#/Vol] 10*3/uL Normal <0.01 [facility] Comment on above: Order Comment: Speci men Type: BLOOD SPECIMENOrdering Facility: [facility] Address: [address] [place] [address] Performed By: #### 5 8410-2 ####[facility] LABCLIA [id number] [place] [address] [place] Platelet mean volume (Bld) [Entitic vol] 8.7 fL Low 9.0-12.7 [facility] Comment on above: Order Comment: Speci men Type: BLOOD SPECIMENOrdering Facility: [facility] Address: [address] [place] [address] Performed By: #### 5 8410-2 ####[facility] LABCLIA [id number] [place] [address] [place] Platelets (Bld) [#/Vol] 197 10*3/uL Normal 150-400 [facility] Comment on above: Order Comment: Speci men Type: BLOOD SPECIMENOrdering Facility: [facility] Address: [address] [place] [address] Performed By: #### 5 8410-2 ####[facility] LABCLIA [id number] [place] [address] [place] RBC (Bld) [#/Vol] 4.46 10*6/uL Normal 4.20-6.00 [facility] Comment on above: Order Comment: Speci men Type: BLOOD SPECIMENOrdering Facility: [facility] Address: [address] [place] [address] Performed By: #### 5 8410-2 ####[facility] LABCLIA [id number] [address] [address] [place] WBC (Bld) [#/Vol] 5.39 10*3/uL Normal 3.70-11.00 [facility] Comment on above: Order Comment: Speci men Type: BLOOD SPECIMENOrdering Facility: [facility] Address: [address] [place] [address] Performed By: #### 5 8410-2 ####[facility] [id number] [address] [address] [place] XR CHEST 1V FRONTAL PORTon 0 05-11-2024 XR CHEST 1V FRONTAL PORT Normal [facility] CASE MGT INIT ASSESon 2024 CASE MGT INIT ASSES Normal [facility] CBC panel Auto (Bld)on 05-10 Erythrocyte distribution width (RBC) [Ratio] 13.9 % Normal 11.5-15.0 [facility] Comment on above: Order Comment: Speci men Type: BLOOD SPECIMENOrdering Facility: [facility] Address: [address] [place] [address] Performed By: #### 5 8410-2 ####[facility] [id number] [place] [address] [place] Hematocrit (Bld) [Volume fraction] 42.4 % Normal 39.0-51.0 [facility] Comment on above: Order Comment: Speci men Type: BLOOD SPECIMENOrdering Facility: [facility] Address: [address] [place] [address] Performed By: #### 5 8410-2 ####[facility] [id number] [address] [address] [place] Hemoglobin (Bld) [Mass/Vol] 14.6 g/dL Normal 13.0-17.0 [facility] Comment on above: Order Comment: Speci men Type: BLOOD SPECIMENOrdering Facility: [facility] Address: [address] [place] [address] Performed By: #### 5 8410-2 ####[facility] LABCLIA [id number] [place] [address] [place] MCH (RBC) [Entitic mass] 31.6 pg Normal 26.0-34.0 [facility] Comment on above: Order Comment: Speci men Type: BLOOD SPECIMENOrdering Facility: [facility] Address: [address] [place] [address] Performed By: #### 5 8410-2 ####[facility] LABIA [id number] [place] [address] [place] MCHC (RBC) [Mass/Vol] 34.4 g/dL Normal 30.5-36.0 [facility] Comment on above: Order Comment: Speci men Type: BLOOD SPECIMENOrdering Facility: [facility] Address: [address] [place] [address] Performed By: #### 5 8410-2 ####[facility] LABIA [id number] [address], [place] [address] [place] MCV (RBC) [Entitic vol] 91.8 fL Normal 80.0-100.0 [facility] Comment on above: Order Comment: Speci men Type: BLOOD SPECIMENOrdering Facility: [facility] Address: [address] [place] [address] Performed By: #### 5 8410-2 ####[facility] LABIA [id number] [place] [address] [place] Nucleated RBC (Bld) [#/Vol] 10*3/uL Normal <0.01 [facility] Comment on above: Order Comment: Speci men Type: BLOOD SPECIMENOrdering Facility: [facility] Address: [address] [place] [address] Performed By: #### 5 8410-2 ####[facility] LABIA [id number] [place] [address] [place] Platelet mean volume (Bld) [Entitic vol] 8.7 fL Low 9.0-12.7 [facility] Comment on above: Order Comment: Speci men Type: BLOOD SPECIMENOrdering Facility: [facility] Address: [address] [place] [address] Performed By: #### 5 8410-2 ####[facility] LABIA [id number] [place] [address] [place] Platelets (Bld) [#/Vol] 229 10*3/uL Normal 150-400 [facility] Comment on above: Order Comment: Speci men Type: BLOOD SPECIMENOrdering Facility: [facility] Address: [address] [place] [address] Performed By: #### 5 8410-2 ####[facility] LABIA [id number] [place] [address] [place] RBC (Bld) [#/Vol] 4.62 10*6/uL Normal 4.20-6.00 [facility] Comment on above: Order Comment: Speci men Type: BLOOD SPECIMENOrdering Facility: [facility] Address: [address] [place] [address] Performed By: #### 5 8410-2 ####[facility] LABIA [id number] [place] [address] [place] WBC (Bld) [#/Vol] 7.62 10*3/uL Normal 3.70-11.00 [facility] Comment on above: Order Comment: Speci men Type: BLOOD SPECIMENOrdering Facility: [facility] Address: [address] [place] [address] Performed By: #### 5 8410-2 ####[facility] LABCLIA [id number] [place] [id number] [place] Comprehensive metabolic 2000 panelon 05-10-2024 Albumin [Mass/Vol] 4.3 g/dL Normal 3.9-4.9 [facility] Comment on above: Order Comment: Speci men Type: BLOOD SPECIMENOrdering Facility: [facility] Address: [address] [place] [address] Performed By: #### 2 4323-8 ####[facility] LABCLIA [id number] [place] [id number] [place] ALP [Catalytic activity/Vol] 72 U/L Normal 38-113 [facility] Comment on above: Order Comment: Speci men Type: BLOOD SPECIMENOrdering Facility: [facility] Address: [address] [place] [address] Performed By: #### 2 4323-8 ####[facility] LABCLIA [id number] [place] [address] [place] ALT [Catalytic activity/Vol] 23 U/L Normal 10-54 [facility] Comment on above: Order Comment: Speci men Type: BLOOD SPECIMENOrdering Facility: [facility] Address: [address] [place] [address] Performed By: #### 2 4323-8 ####[facility] LABCLIA [id number] [place] [address] [place] Anion gap [Moles/Vol] 15 mmol/L Normal 8-15 [facility] Comment on above: Order Comment: Speci men Type: BLOOD SPECIMENOrdering Facility: [facility] Address: [address] [place] [address] Performed By: #### 2 4323-8 ####[facility] LABCLIA [id number] [facility] [place] [id number] [place] AST [Catalytic activity/Vol] 20 U/L Normal 14-40 [facility] Comment on above: Order Comment: Speci men Type: BLOOD SPECIMENOrdering Facility: [facility] Address: [address] [place] [address] Performed By: #### 2 4323-8 ####[facility] LABCLIA [id number] [facility] [address] [place] [address] [place] Bilirubin [Mass/Vol] 0.6 mg/dL Normal 0.2-1.3 [facility] Comment on above: Order Comment: Speci men Type: BLOOD SPECIMENOrdering Facility: [facility] Address: [address] [place], [place] [address] Performed By: #### 2 4323-8 ####[facility] LABCLIA [id number] [address], [facility] [place] Calcium [Mass/Vol] 10.0 mg/dL Normal 8.5-10.2 [facility] Comment on above: Order Comment: Speci men Type: BLOOD SPECIMENOrdering Facility: [facility] Address: [address] [place] [address] Performed By: #### 2 4323-8 ####[facility] LABCLIA [id number] [address], [facility]95 [place] Chloride [Moles/Vol] 98 mmol/L Normal 98-107 [facility] Comment on above: Order Comment: Speci men Type: BLOOD SPECIMENOrdering Facility: [facility] Address: [address] [place] [address] Performed By: #### 2 4323-8 ####[facility] LABCLIA [id number] [place] [id number] [place] CO2 [Moles/Vol] 24 mmol/L Normal 22-30 [facility] Comment on above: Order Comment: Speci men Type: BLOOD SPECIMENOrdering Facility: [facility] Address: [address] [place], [place] [address] Performed By: #### 2 4323-8 ####[facility] LABCLIA [id number] [address] [place] [address] [place] Creatinine [Mass/Vol] 0.59 mg/dL Low 0.73-1.22 [facility] Comment on above: Order Comment: Speci men Type: BLOOD SPECIMENOrdering Facility: [facility] Address: [address] [place] [address] Performed By: #### 2 4323-8 ####[facility] LABIA [id number] [place] [address] [place] Creatinine and Glomerular filtration rate.predicted panel (S/P/Bld) 104 mL/min/1.73m??? Normal >=60 [facility] Comment on above: Order Comment: Rody adams Type: BLOOD SPECIMENOrdering Facility: [facility] Address: [address] [place] [address] Result Comment: Karon mated Glomerular Filtration Rate [...] actual GFR. Performed By: #### 2 4323-8 ####[facility] LABIA [id number] [place] [address] [place] Glucose [Mass/Vol] 109 mg/dL High 74-99 [facility] Comment on above: Order Comment: Rody bryan Type: BLOOD SPECIMENOrdering Facility: [facility] Address: [address] [place] [address] Result Comment: The [place] [employer] (ADA) provides guidance for cutoff [...] Standards of Medical Care in Diabetes 2016, [place] [employer]. Diabetes Care. 2016.39(Suppl 1). Performed By: #### 2 4323-8 ####[facility] LABCLIA [id number] [place] [id number] [place] Potassium [Moles/Vol] 3.5 mmol/L Low 3.7-5.1 [facility] Comment on above: Order Comment: Speci men Type: BLOOD SPECIMENOrdering Facility: [facility] Address: [address] [place] [address] Performed By: #### 2 4323-8 ####[facility] LABCLIA [id number] [place] [id number] [place] Protein [Mass/Vol] 7.1 g/dL Normal 6.3-8.0 [facility] Comment on above: Order Comment: Speci men Type: BLOOD SPECIMENOrdering Facility: [facility] Address: [address] [place] [address] Performed By: #### 2 4323-8 ####[facility] LABIA [id number] [place] [id number] [place] Sodium [Moles/Vol] 137 mmol/L Normal 136-144 [facility] Comment on above: Order Comment: Speci men Type: BLOOD SPECIMENOrdering Facility: [facility] Address: [address] [place] [address] Performed By: #### 2 4323-8 ####[facility] LABCLIA [id number] [place] [id number] [place] Urea nitrogen [Mass/Vol] 7 mg/dL Low 9-24 [facility] Comment on above: Order Comment: Speci men Type: BLOOD SPECIMENOrdering Facility: [facility] Address: [address] [place] [address] Performed By: #### 2 4323-8 ####[facility] LABCLIA [id number] [place] [id number] [place] [id number] 05-10-2024 ECG01 Normal [facility] HISTORY PHYSICALon HISTORY PHYSICAL HNO ID: [id number] Author: FAY ARAYA APRN.CNP Service: Thoracic Surgery Author Type: Nurse Practitioner Type: H&P Filed: 05/10/2024 14:00 Note Text: .mpgh Normal [facility] NURSING PROGon 05-10-2024 NURSING PROG Normal [facility] NURSING PROG Normal [facility] PT panel Coag (PPP)on 2024 INR Coag (PPP) [Relative time] 1.1 {INR} Normal 0.9-1.3 [facility] Comment on above: Order Comment: Rody adams Type: BLOOD SPECIMENOrdering Facility: [facility] Address: [address] [place] [address] Result Comment: Mita min K Antagonist (VKA) Therapeutic Range: INR 2 to 3 (Target INR of 2.5)Note: For patients treated with VKA drugs, such as warfarin, the [place] [employer] 2012 Guideline recommends [...] 70: 252-289 Performed By: #### 1 4979-9, 15772-2 ####[facility] LABCLIA [id number] [place] [address] [place] PT Coag (PPP) [Time] 11.9 s Normal 9.7-13.0 [facility] Comment on above: Order Comment: Rody adams Type: BLOOD SPECIMENOrdering Facility: [facility] Address: [address] [place] [id number] Performed By: #### 1 4979-9, 82170-3 ####[facility] LABLINDSEY [id number] [place] [address] [place] THERAPY NTon 05-10-2024 THERAPY NT Normal [facility] XR CHEST 1V FRONTAL PORTon 0 05-10-2024 XR CHEST 1V FRONTAL PORT Normal [facility] XR CHEST 1V FRONTAL PORT Normal [facility] aPTT PPPon 05-10-2024 aPTT Coag (PPP) [Time] 28.7 s Normal 23.0-32.4 [facility] Comment on above: Order Comment: Speci men Type: BLOOD SPECIMENOrdering Facility: [facility] Address: [address] [place] [address] Performed By: #### 1 4979-9, 26382-8 ####[facility] LABLINDSEY [id number] [place] [id number] [place] CT CHEST W IVCONon CT CHEST W IVCON * * *Final Report* * * DATE OF EXAM: May 08 2024 2:21PM [facility] 0539 - CT CHEST W IVCON / [...] right upper lobe spiculated nodule with cavitations. 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: IMMANUEL Transcribe Date/Time: May 11 2024 3:35P Dictated by : IVON DALTON MD This examination was interpreted and the report reviewed and electronically signed by: IVON DALTON MD on May 11 2024 3:46PM EST [id number] Normal [facility] NURSING PROGon 05-08-2024 NURSING PROG HNO ID: [id number] Author: IRISH AMOR RN Service: PICC Team [...] May 08, 2024 TIME: 2:07 PM Normal [facility] Basic metabolic 2000 panelon 05-07-2024 Anion gap [Moles/Vol] 12 mmol/L Normal 8-15 [facility] Comment on above: Order Comment: Rody adams Type: BLOOD SPECIMEN [facility] Address: [address] [place] [address] Performed By: #### 2 4321-2, 70118-1, 11517-9, 2276-4 #### [facility] CLIA [id number] [address] [place] [address] [place] Calcium [Mass/Vol] 10.2 mg/dL Normal 8.5-10.2 [facility] Comment on above: Order Comment: Rody adams Type: BLOOD SPECIMEN [facility] Address: [address] [place] [address] Performed By: #### 2 4321-2, 05544-8, 98611-3, 6-4 #### [facility] CLIA [id number] [address] [place] [address] [place] Chloride [Moles/Vol] 94 mmol/L Low 98-107 [facility] Comment on above: Order Comment: Speci men Type: BLOOD SPECIMEN [facility] Address: [address] [place] [address] Performed By: #### 2 4321-2, 97761-7, 82515-6, 6-4 #### [facility] CLIA [id number] [address] [place] [address] [place] CO2 [Moles/Vol] 29 mmol/L Normal 22-30 [facility] Comment on above: Order Comment: Speci men Type: BLOOD SPECIMEN [facility] Address: [address] [place] [address] Performed By: #### 2 4321-2, 43782-8, 92133-5, 6-4 #### [facility] CLIA [id number] [address] [place] [address] [place] Creatinine [Mass/Vol] 0.73 mg/dL Normal 0.73-1.22 [facility] Comment on above: Order Comment: Speci men Type: BLOOD SPECIMEN [facility] Address: [address] [place] [address] Performed By: #### 2 4321-2, 80578-1, 49983-5, 6-4 #### [facility] CLIA [id number] [address] Creatinine and Glomerular filtration rate.predicted panel (S/P/Bld) 97 mL/min/1.73m??? Normal >=60 [facility] Comment on above: Order Comment: Speci men Type: BLOOD SPECIMEN [facility] Address: [address] [place] [address] Result Comment: Karon mated Glomerular Filtration Rate [...] actual GFR. Performed By: #### 2 4321-2, 08833-4, 24521-7, 2275- #### [facility] CLIA [id number] [address] [place] [address] [place] Glucose [Mass/Vol] 124 mg/dL High 74-99 [facility] Comment on above: Order Comment: Rody adams Type: BLOOD SPECIMEN [facility] Address: [address] [place] [id number] Result Comment: The [place] Diabetes Association (ADA) provides guidance for cutoff [...] Standards of Medical Care in Diabetes 2016, [place] [employer]. Diabetes Care. 2016.39(Suppl 1). Performed By: #### 2 4321-2, 70101-9, , 2275-05 #### [facility] CLIA [id number] [address] [place] [address] [place] Potassium [Moles/Vol] 3.9 mmol/L Normal 3.7-5.1 [facility] Comment on above: Order Comment: Royd adams Type: BLOOD SPECIMEN [facility] Address: [address] [place] [address] Performed By: #### 2 4321-2, 77818-7, 27559-0, 2275-4 #### [facility] CLIA [id number] [address] [place] [address] [place] Sodium [Moles/Vol] 135 mmol/L Low 136-144 [facility] Comment on above: Order Comment: Speci men Type: BLOOD SPECIMEN [facility] Address: [address] [place] [address] Performed By: #### 2 4321-2, 73658-9, 81436-3, 2275-4 #### [facility] CLIA [id number] [address] Urea nitrogen [Mass/Vol] 9 mg/dL Normal 9-24 [facility] Comment on above: Order Comment: Speci men Type: BLOOD SPECIMEN [facility] Address: [address] [place] [address] Performed By: #### 2 4321-2, 06078-5, 74751-6, 2275-05 #### [facility] CLIA [id number] [address] Lipid 1996 panelon 5 Cholesterol [Mass/Vol] 154 mg/dL Normal <200 [facility] Comment on above: Order Comment: Speci men Type: BLOOD SPECIMEN [facility] Address: [address] [place] [address] Result Comment: <200 mg/dL, Desirable 200-239 mg/dL, Borderline high >239 mg/dL, High Performed By: #### 2 4321-2, 47210-8, 20512-6, 2275- #### [facility] CLIA [id number] [address] Cholesterol in HDL [Mass/Vol] 61 mg/dL Normal >39 [facility] Comment on above: Order Comment: Speci men Type: BLOOD SPECIMEN [facility] Address: [address] [place] [address] Result Comment: 40-5 9 mg/dL, Acceptable >59 mg/dL, High: Negative risk factor for coronary heart disease <40 mg/dL, Low: Positive risk factor for coronary heart disease Performed By: #### 2 4321-2, 91212-0, 37650-6, 2275-4 #### [facility] CLIA [id number] [address] Cholesterol in LDL [Mass/Vol] 67 mg/dL Normal <100 [facility] Comment on above: Order Comment: Rody adams Type: BLOOD SPECIMEN [facility] Address: [address] [place] [address] Result Comment: <100 mg/dL, Optimal 100-129 mg/dL, Near optimal/above optimal 130-159 mg/dL, Borderline high 160-189 mg/dL, High >189 mg/dL, Very high Secondary prevention optimal LDL Cholesterol levels are recommended to be < 70 mg/dL Performed By: #### 2 4321-2, 95196-7, 52570-1, 2275-4 #### [facility] CLIA [id number] [address] Cholesterol in LDL/Cholesterol in HDL [Mass ratio] 1.10 {ratio} Normal <2.54 [facility] Comment on above: Order Comment: Rody adams Type: BLOOD SPECIMEN [facility] Address: [address] [place] [address] Result Comment: Tad dickinson: 1. National Cholesterol Education Program ATP III Guideline At-A-Glance Quick Desk Reference: National Heart, Lung, and Blood [place]. National Institutes of Health. 2001: NIH Publication No. 01-3305. 2. An International Atherosclerosis Society position paper: global recommendations for the management of dyslipidemia: executive summary, Atherosclerosis. 2014: 232(2):410-413. Performed By: #### 2 4321-2, 03865-4, 38689-4, 2275-4 #### [facility] CLIA [id number] [address] [place] [facility] Cholesterol in VLDL [Mass/Vol] 26 mg/dL Normal <30 [facility] Comment on above: Order Comment: Rody adams Type: BLOOD SPECIMEN [facility] Address: [address] [place] [address] Performed By: #### 2 4321-2, 41640-0, 68028-2, 2275-4 #### [facility] CLIA [id number] [address] [place] Cholesterol non HDL [Mass/Vol] 93 mg/dL Normal <130 [facility] Comment on above: Order Comment: Rody adams Type: BLOOD SPECIMEN Ordering Facility: [facility] Address: [address] [place] [address] Result Comment: <130 mg/dL, Optimal 130-159 mg/dL, Near optimal/above optimal 160-189 mg/dL, Borderline high 190-219 mg/dL, High >219 mg/dL, Very high Secondary prevention optimal non HDL Cholesterol levels are recommended to be <100 mg/dL Performed By: #### 2 4321-2, 17013-3, 93768-3, 2275-4 #### [facility] CLIA [id number] [address] [place] Cholesterol.total/C holesterol in HDL [Mass ratio] 2.52 {ratio} Normal <5.10 [facility] Comment on above: Order Comment: Rody adams Type: BLOOD SPECIMEN Ordering Facility: [facility] Address: [address] [place] [address] Performed By: #### 2 4321-2, 22058-6, 91171-8, 2275-4 #### [facility] CLIA [id number] [address] STATES OF [facility] FASTING TIME 15 hrs Normal [facility] Comment on above: Order Comment: Rody adams Type: BLOOD SPECIMEN Ordering Facility: [facility] Address: [address] [place] [address] Performed By: #### 2 4321-2, 79197-5, 78309-2, 2275-4 #### [facility] CLIA [id number] [address] OF [facility] Triglyceride [Mass/Vol] 129 mg/dL Normal <150 [facility] Comment on above: Order Comment: Rody adams Type: BLOOD SPECIMEN Ordering Facility: [facility] Address: [address] [place] [address] Result Comment: <150 mg/dL, Normal 150-199 mg/dL, Borderline high 200-499 mg/dL, High >499 mg/dL, Very high Performed By: #### 2 4321-2, 39200-8, 93472-8, 2275-4 #### [facility] CLIA [id number] [address] [place] [address] [place] Hemoccult Stl Ql IAon 2024 Lower GI hemoglobin IA Ql (Stl) Negative Normal Negative [facility] Comment on above: Order Comment: Speci men Type: STOOL SPECIMENOrdering Facility: [facility] Address: [address] [place] [address] Performed By: #### 2 9771-3 ####[facility] LABCLIA [id number] [place] [address] [place] CNOVon 04-25-2024 CNOV Normal [facility] CNPNon 03-05-2024 CNPN Normal [facility] CNPNon 02-29-2024 CNPN Normal [facility] CNPTOUTREACHon 02-29-2024 CNPTOUTREACH Normal [facility] CNPTOUTREACHon 02-02-2024 CNPTOUTREACH Normal [facility] CNOVon 02-01-2024 CNOV Normal [facility] XR CHEST 2V FRONTAL/LATon XR CHEST 2V FRONTAL/LAT Normal [facility] ED PROV NOTEon 01-31-2024 ED PROV NOTE HNO ID: [id number] Author: MERARI MORALES DO Service: Emergency Medicine [...] this time. Notes he just saw his fur dry cleaner yesterday. Denies any other complaints or concerns at this time. Notes he has had some mild irritation to his right ear since before of the foreign body. PAST MEDICAL HISTORY Diagnosis Date Abdominal aortic aneurysm (HCC) without rupture Elevated PSA Hearing loss HTN (hypertension) Lumbosacral neuritis Malignant neoplasm of prostate (HCC) Other and unspecified hyperlipidemia Prostate cancer (HCC) 2020 xrt at [facility] [place] Smoker former quit 2021 Spinal stenosis of [...] Morales DO - MERARI MORALES 01/31/24 1123 [facility] CNPNon 01-19-2024 CNPN Normal [facility] CNOVon 01-11-2024 CNOV Normal [facility] CNOVon 01-08-2024 CNOV Normal [facility] XR CHEST 2V FRONTAL/LATon XR CHEST 2V FRONTAL/LAT Normal [facility] XR Chest PA and Lateralon IMPRESSION: See result 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: IMMANUEL Transcribe Date/Time: Jan 08 2024 2:44P Dictated by : CORAZON PUENTES DO This examination was interpreted and the report reviewed and electronically signed by: ALIYA BARRIENTOS MD on Jan 08 2024 3:45PM [facility] DIVISION OF RADIOLOGY * * *Final Report* [...] the thoracic spine. DIVISION OF RADIOLOGY Provider, [facility] - 01/08/2024 * * *Final Report* * [...] the thoracic spine. IMPRESSION IMPRESSION: See result 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: IMMANUEL Transcribe Date/Time: Jan 08 2024 2:44P Dictated by : CORAZON PUENTES, This examination was interpreted and the report reviewed and electronically signed by: ALIYA BARRIENTOS MD on Jan 08 2024 3:45PM EST [facility] Radiology Study observation (narrative) [facility] XR Chest PA and LateralOrder ed By: Ccf Provider on 01-08-2024 [facility] Xuan 01-05-2024 CNPN Telephone (AKURFL) -- JACQUI SANCHEZYDE ([id number]) 1950 M DEF Date Time Provider Department [...] Status:Closed by KIRK MATAMOROS on 01/05/24 Normal [facility] CNOVon 01-04-2024 CNOV Normal [facility] PSA SerPl-mCncon 01-04-2024 Prostate specific Ag [Mass/Vol] 0.08 ng/mL Normal <2.60 [facility] Comment on above: Order Comment: Speci men Type: BLOOD SPECIMEN Ordering Facility: [facility] Address: [address] [place] [address] Result Comment: Marzena bean PSA test methodology used is the Electrochemiluminescence Immunoassay by [employer]. Total PSA values by differing methodologies cannot be interchanged. Performed By: #### 2 4321-2, 49029-2, 65797-2, 2276-4 #### [facility] CLIA [id number] [address] [place] [address] [place] UA DIP, URINE (POC)on 2023 BILIRUBIN UA (POCT) Negative Negative [facility] CLARITY UA (POCT) Clear [facility] COLOR UA (POCT) Yellow [facility] GLUCOSE UA (POCT) Negative Negative mg/dL [facility] Hemoglobin Ql (U) Negative Negative [facility] KETONE UA (POCT) Negative Negative mg/dL [facility] LEUKOCYTES UA (POCT) Negative Negative [facility] NITRITE UA (POCT) Negative Negative [facility] PH UA (POCT) 6.0 4.5 - 8.0 [facility] Protein Ql (U) Negative Negative mg/dL [facility] SPECIFIC GRAVITY UA (POCT) 1.025 1.005 - 1.030 [facility] UROBILINOGEN UA (POCT) 0.2 Normal E.U./dL [facility] Location:[facility] MOB, [address] [place], [address] [facility] POINT OF CARE [facility] CNPNon 12-28-2023 CNPN Normal [facility] CNOVon 12-19-2023 CNOV Normal [facility] CNOVSPon 12-19-2023 CNOVSP Normal [facility] CNPNon 12-19-2023 CNPN Normal [facility] US ABD AORTA COMPLETE VAS LA Bon 12-19-2023 US ABD AORTA COMPLETE VAS LAB Normal [facility] CT CHEST WO IVCONon 12-09-19 CT CHEST WO IVCON * * *Final Report* * * DATE OF EXAM: Dec 09 2023 9:13AM [facility] 0541 - CT CHEST WO IVCON / [...] pleural effusion. 3. No new thoracic lymphadenopathy 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: IMMANUEL Transcribe Date/Time: Dec 14 2023 1:29P Dictated by : ANNE COUGHLIN MD This examination was interpreted and the report reviewed and electronically signed by: ANNE COUGHLIN MD on Dec 14 2023 1:47PM EST [id number] [facility] XR Chest PA and Lateralon IMPRESSION: See result 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: IMMANUEL Transcribe Date/Time: Nov 27 2023 2:01P [...] the thoracic spine. DIVISION OF RADIOLOGY Provider, [facility] - 11/27/2023 * * *Final Report* * [...] the thoracic spine. IMPRESSION IMPRESSION: See result 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: IMMANUEL Transcribe Date/Time: Nov 27 2023 2:01P Dictated by : ALIYA BARRIENTOS MD This examination was interpreted and the report reviewed and electronically signed by: ALIYA BARRIENTOS MD on Nov 27 2023 2:14PM [facility] Radiology Study observation (narrative) [facility] XR Chest PA and LateralOrder ed By: Ccf Provider on 11-27-2023 [facility] MR Brain WO and W contrast I Von 11-10-2023 IMPRESSION: No acute findings. No intracranial metastases. 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: IMMANUEL Transcribe Date/Time: Nov 10 2023 3:12P Dictated by : ALEJANDRO TORREZ MD This examination was interpreted and the report reviewed and electronically signed by: ALEJANDRO TORREZ MD on Nov 10 2023 3:16PM [facility] DIVISION OF RADIOLOGY * * *Final Report* [...] the RIGHT globe. DIVISION OF RADIOLOGY Provider, [facility] - 11/10/2023 * * *Final Report* * [...] IMPRESSION: No acute findings. No intracranial metastases. 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: IMMANUEL Transcribe Date/Time: Nov 10 2023 3:12P Dictated by : ALEJANDRO TORREZ MD This examination was interpreted and the report reviewed and electronically signed by: ALEJANDRO TORREZ MD on Nov 10 2023 3:16PM EST [facility] Radiology Study observation (narrative) [facility] MR Brain WO and W contrast I VOrdered By: Ccf Provider on 11-10-2023 [facility] NM Heart Perfusion W stress and W radionuclide Annette 11-09-2023 * * *Final Report* * * DATE OF EXAM: Nov 09 2023 11:04AM [facility] 0006 - [place] CARDIAC PERF STRESS/PHARM / PROCEDURE REASON: multiple diagnoses * * * * Physician Interpretation * * * * Stress Hammerer Report: [facility] RISHI-2 Date of service: 11/09/2023 9:01:00 [...] later. See administered radiotracer and doses below. [facility] Date of service: 11/09/2023 9:01:00 AM [...] Final * * * Stress ECG Report: [facility] Date of service: 11/09/2023 9:01:00 AM Ordering physician: PAULA LIZAMA credit balance specialist: Kevin Meyer Supervisor Files: Cecile Hall Fellow: Sherif Houser MD Interpreting [...] Hours Resting ECG: Normal Sinus Rhythm, Short MO and Nonspecific T Wave Changes Pharamcologic Protocol: Regadenoson Stress Exercise Table: +-----+--+---+---+ Stage HR SYS JANEE +-----+--+---+---+ 1 79 +-----+--+---+---+ 2 81 122 84 +-----+--+---+---+ 3 85 +-----+--+---+---+ 4 82 120 84 +-----+--+---+---+ +-----+--+---+---+ HR SYS JANEE +-- (more content not included)... DIVISION OF RADIOLOGY Provider, [facility] - 11/09/2023 * * *Final Report* * * DATE OF EXAM: Nov 09 2023 11:04AM [facility] 0006 - [place] CARDIAC PERF STRESS/PHARM / PROCEDURE REASON: multiple diagnoses * * * * Physician Interpretation * * * * Stress Hammerer Report: [facility] RISHI-2 Date of service: 11/09/2023 9:01:00 [...] See administered radiotracer and doses below. [facility] Date of service: 11/09/2023 9:01:00 AM Ordering [...] Final * * * Stress ECG Report: [place] [id number] Date of service: 11/09/2023 9:01:00 AM Ordering physician: PAULA LIZAMA credit balance specialist: Kevin Meyer Supervisor Files: Cecile Hall Fellow: Sherif Houser MD Interpreting [...] Hours Resting ECG: Normal Sinus Rhythm, Short MO and Nonspecific T Wave Changes Pharamcologic Protocol: Regadenoson Stress Exercise Table: +-----+--+---+---+ Stage HR SYS JANEE +-----+--+---+---+ 1 79 +-----+--+---+---+ 2 81 122 84 +-----+--+---+---+ 3 85 +-----+--+---+---+ 4 82 120 84 +-----+--+---+---+ +-----+--+---+---+ HR SYS JANEE +-----+--+---+---+ Final 82 120 84 +-----+--+---+---+ +------+ --+ ----+ Stage ST: Lead, [place], MM Arrhythmias +------+ --+ ----+ 1 Regadenoson (more content not included)... [facility] Radiology Study observation (narrative) [facility] NM Heart Perfusion W stress and W radionuclide IVOrdered By: Ccf Provider on 11-09-2023 [facility] XR Chest PA and Lateralon IMPRESSION: See result 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: IMMANUEL Transcribe Date/Time: Nov 09 2023 7:39A Dictated by : IVON PEREIRA MD This examination was interpreted and the report reviewed and electronically signed by: IVON PEREIRA MD on Nov 09 2023 7:41AM [facility] DIVISION OF RADIOLOGY * * *Final Report* [...] Unremarkable. DIVISION OF RADIOLOGY Provider, Augustina Juarez [facility] - 11/09/2023 * * *Final Report* [...] soft tissues: Unremarkable. IMPRESSION IMPRESSION: See result 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: IMMANUEL Transcribe Date/Time: Nov 09 2023 7:39A Dictated by : IVON PEREIRA MD This examination was interpreted and the report reviewed and electronically signed by: IVON PEREIRA MD on Nov 09 2023 7:41AM EST [facility] Radiology Study observation (narrative) [facility] XR Chest PA and LateralOrder ed By: Ccf Provider on 11-09-2023 [facility] SIX MINUTE WALKon 10-17-2023 Srinivasan Deng, LABORATORY GENETICIST 10/17/2023 12:03 PM RESPIRATORY THERAPY SIX MINUTE [...] DATE: October 17, 2023 TIME: 12:03 PM [facility] SIX MINUTE WALKOrdered By: Eldon Gentile on 10-17-2023 [facility] Work Phone: ANES POSTPROC EVALon 024 ANES POSTPROC EVAL HNO ID: [id number] Author: PRADEEP AN MD Service: Anesthesiology Author Type: Anesthesiologist Type: Anesthesia Postprocedure Evaluation Filed: 09/19/2023 11:15 Note Text: POST ANESTHESIA EVALUATION NOTE : 1950 Procedure Summary Date: 09/19/23 Room / Location: [facility] / [facility] Anesthesia Start: 1009 Anesthesia Stop: 1113 Procedure: [...] September 19, 2023 TIME: 11:15 AM CSN: [id number] [facility] ANES PRE-OPon 09-19-2023 ANES PRE-OP HNO ID: [id number] Author: PRADEEP AN MD Service: Anesthesiology Author [...] and consent discussed: yes. Patient / Responsible Democrat agrees to proceed: yes Patient / Surrogate [...] September 19, 2023 TIME: 9:42 AM CSN: [id number] [facility] Bacteria Tiss Culton 2 024 Bacteria identified [...] , Intermediate >=.5 , Resistant >=1 Abnormal [facility] Comment on above: Performed By: #### 1 1475-1, 50818-6 ####[facility]CLIA [id number] [address] [place] CYTOLOGY NON-GYNon 4 ADEQUACY INTERPRETATION Normal [facility] Comment on above: Order Comment: Speci men Type: SPECIMEN OBTAINED BY ASPIRATIONOrdering Facility: [facility] Address: [address] [place] [address] Result Comment: A: # 1 Lymphoid sample [...] discrete evaluation episode. Intra-procedural assessment performed at [facility], [address] [place] [address] Performed By: #### C YTONON ####[facility] [id number] [address] [place] [facility] CASE REPORT Normal [facility] Comment on above: Order Comment: Speci men Type: SPECIMEN OBTAINED BY ASPIRATIONOrdering Facility: [facility] Address: [address] [place] [address] Result Comment: [facility] Cytology Report Case: [id number] Authorizing Provider: Arcadio Hodgson MD Collected: 09/19/2023 10:24 AM Ordering Location: [facility] Received: 09/19/2023 11:28 AM Endoscopy - ENDO Pathologist: Oc Murphy MD Specimens: A) - Lymph Node, Transbronchial, 11RS B) - Lymph Node, Transbronchial, 11RI C) - Lung, Right Lower Lobe D) - Lung, Right Lower Lobe Performed By: #### C YTONON ####[facility] [id number] [address] CLINICAL HISTORY Normal [facility] Comment on above: Order Comment: Speci men Type: SPECIMEN OBTAINED BY ASPIRATIONOrdering Facility: [facility] Address: [address] [place] [address] Result Comment: Pre- op diagnosis: Lung mass [R91.8] Right lower lobe nodule re-biopsy History of prostate cancer Former smoker Performed By: #### C YTONON ####[facility] [id number] [address] DIAGNOSIS COMMENT Normal [facility] Comment on above: Order Comment: Speci men Type: SPECIMEN OBTAINED BY ASPIRATIONOrdering Facility: [facility] Address: [address] [place] [address] Result Comment: Martha leyva rare fragments of [...] conjunction with the related surgical pathology case [id number] with diagnostic concurrence. The atypical cells seen during GWEN correspond to the squamous cell carcinoma, which is best characterized on the Pap stained slides (ThinPrep and smears) and in the cell block. Performed By: #### C YTONON ####[facility] [id number] [address] FINAL DIAGNOSIS Normal [facility] Comment on above: Order Comment: Speci men Type: SPECIMEN OBTAINED BY ASPIRATIONOrdering Facility: [facility] Address: [address] [place] [address] Result Comment: A - Lymph Node, Transbronchial, [...] comment). D - Lung, Right Lower Lobe, [place] Positive for malignant cells. 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 The following cell blocks were associated with this case: A1 Cell Block, Alcohol Fixed B1 Cell Block, Alcohol Fixed C1 Cell Block, Alcohol Fixed D1 Cell Block, Alcohol Fixed Performed By: #### C YTONON ####[facility] [id number] [address] STATES [place] [facility] FINAL PERFORMING LAB Normal [facility] Comment on above: Order Comment: Speci men Type: SPECIMEN OBTAINED BY ASPIRATIONOrdering Facility: [facility] Address: [address] [place] [address] Result Comment: Tech nical component, cloth washer operator screening performed at [facility], [address] [place] [address] CLIA# [id number] Diagnostic interpretation performed at [facility], [address] [place] [address] CLIA# [id number] House Mover Helper: Oc Murphy M.D. Performed By: #### C YTONON ####[facility] [id number] [address] GROSS DESCRIPTION Normal [facility] Comment on above: Order Comment: Speci men Type: SPECIMEN OBTAINED BY ASPIRATIONOrdering Facility: [facility] Address: [facility] [place] [address] Result Comment: A. L ymph Node, Transbronchial [...] 2 fixed). Performed By: #### C YTONON ####[facility] [id number] [address] [place] ORDER COMMENT Normal [facility] Comment on above: Order Comment: Speci men Type: SPECIMEN OBTAINED BY ASPIRATIONOrdering Facility: [facility] Address: [address] [place] [address] Result Comment: Pre- op diagnosis: Lung mass [R91.8] Performed By: #### C YTONON ####[facility] [id number] [place] [address] [place] Microorganism Spec Culton Microorganism identified Cx Nom (Unsp spec) CULTURE, AFB: No Acid Fast Bacilli isolated after 42 days AFB STAIN: No acid fast bacilli seen by flurochrome stain [facility] Comment on above: Performed By: #### 1 1475-1 ####[facility] LABCLIA [id number] [place] [address] [place] Microorganism identified Cx Nom (Unsp spec) CULTURE, FUNGAL: No Fungus isolated after 28 days FUNGAL SMEAR: No fungus seen [facility] Comment on above: Performed By: #### 1 1475-1, 26203-2 ####[facility]CLIA [id number] [place] [address] [place] Microorganism identified Cx Nom (Unsp spec) CULTURE, AFB: No Acid Fast Bacilli isolated after 42 days AFB STAIN: No acid fast bacilli seen by flurochrome stain [facility] Comment on above: Performed By: #### 1 1475-1, 91338-1 ####[facility] LABCLIA [id number] [place] [address] [place] NURSING PROGon 09-19-2023 NURSING PROG HNO ID: [id number] Author: ERMA ACUNA RN Service: Nursing Author [...] (RECOMMENDATION): None Electronically Signed By: Erma Acuna [facility] NURSING PROG HNO ID: [id number] Author: JOE FALLON RN Service: ? Author [...] (RECOMMENDATION): None Electronically Signed By: Joe Fallon [facility] PD-L1 22C3on 09-19-2023 AP BIOMARKER DISCLAIMER [facility] Comment on above: Order Comment: Rody adams Type: TISSUE SPECIMENOrdering Facility: [facility] Address: [address] [place] [address] Result Comment: Everett davey Developed Test (LDT) Disclaimer: Performance characteristics of immunohistochemical, immunofluorescent and chromogenic in-situ hybridization tests have been determined by the performing laboratory within [facility]???s [facility] Pathology and Laboratory Medicine Department ([facility], [facility], [facility], [facility], [facility], [facility], or [facility]) in a manner consistent with CLIA requirements. One or more of these tests have not been cleared or approved by the FDA. [facility] is regulated under CLIA as qualified to perform high-complexity testing. These tests are used for clinical purposes. They should not be regarded as investigational or for research. Positive and negative controls stain appropriately. Performed By: #### S , [id number] ####[facility] LABCLIA [id number] [place] [address] [place] AP BLOCK ID B1 [facility] Comment on above: Order Comment: Rody adams Type: TISSUE SPECIMENOrdering Facility: [facility] Address: [address] [place] [address] Performed By: #### S , [id number] ####[facility] LABCLIA [id number] [place] [address] [place] BIOMARKER INTERPRETATION COMMENT AND REFERENCE RANGE [facility] Comment on above: Order Comment: Vadimi bryan Type: TISSUE SPECIMENOrdering Facility: [facility] Address: [address] [place] [address] Result Comment: Inte rpretation standard: TPS: The [...] Product label for additional information. KEYTRUDA - (https://www.Bespoke GlobaltrReferMe.com/prescribing-information/) LIBTAYO - (https://www.[place].iTiffin/sites/default/files/Libtayo_FPI.pdf) Performed By: #### S , [id number] ####[facility] LABCLIA [id number] [address] BIOMARKER METHOD Immunohistochemistry was performed on formalin fixed paraffin-embedded tissue using the mouse monoclonal antibody 22C3 ([employer]; [place], [place]) followed by ultrasensitive bright field detection (Optiview with amplification [[employer], [place]]). [facility] Comment on above: Order Comment: Speci men Type: TISSUE SPECIMENOrdering Facility: [facility] Address: [address] [place] [address] Performed By: #### S , [id number] ####[facility] LABCLIA [id number] [address] CASE NUMBER PD-L1 [id number] [facility] Comment on above: Order Comment: Vadimi bryan Type: TISSUE SPECIMENOrdering Facility: [facility] Address: [address] [place] [address] Result Comment: For tumor type see original report Performed By: #### S , [id number] ####[facility] LABCLIA [id number] [address] FINAL PERFORMING LAB [facility] Comment on above: Order Comment: Speci men Type: TISSUE SPECIMENOrdering Facility: [facility] Address: [address] [place] [address] Result Comment: Diag nostic interpretation performed at [facility], [address] [place] [address] CLIA: [id number] House Mover Helper: Ike Reaves MD Electronically signed out by: Armando Damian MD Performed By: #### S , [id number] ####[facility] LABCLIA [id number] [place] [address] [place] FIXATIVE Formalin, 10% Neutra l Buffered [facility] Comment on above: Order Comment: Speci men Type: TISSUE SPECIMENOrdering Facility: [facility] Address: [address] [place] [address] Performed By: #### S , [id number] ####[facility] LABCLIA [id number] [place] [address] [place] PD-L1 22C3 TPS (LUNG) INTERPRETATION Negative [facility] Comment on above: Order Comment: Speci men Type: TISSUE SPECIMENOrdering Facility: [facility] Address: [address] [place] [address] Performed By: #### S , [id number] ####[facility] LABCLIA [id number] [place] [address] [place] PD-L1 TUMOR TYPE Other (See Comment) [facility] Comment on above: Order Comment: Speci men Type: TISSUE SPECIMENOrdering Facility: [facility] Address: [address] [place] [address] Performed By: #### S , [id number] ####[facility] LABCLIA [id number] [place] [address] [place] TUMOR PROPORTION SCORE (TPS) 0 [facility] Comment on above: Order Comment: Speci men Type: TISSUE SPECIMENOrdering Facility: [facility] Address: [address] [place] [address] Performed By: #### S , [id number] ####[facility] LABCLIA [id number] [place] [address] [place] SURGICAL PATHOLOGYon 07-23-2 024 CASE REPORT [facility] Comment on above: Order Comment: Speci men Type: TISSUE SPECIMENOrdering Facility: [facility] Address: [address] [place] [address] Result Comment: [facility] Pathology Report Case: [id number] Authorizing Provider: Arcadio Hodgson MD Collected: 09/19/2023 10:32 AM Ordering Location: [facility] Received: 09/19/2023 11:33 AM Endoscopy - ENDO Pathologist: Armando Damian MD Specimens: A) - Lung, Right Lower Lobe, Transbronchial Biopsy, FNA B) - Lung, Right Lower Lobe, Transbronchial Biopsy, endobronchial biopsy mass Performed By: #### S , [id number] ####[facility] LABCLIA [id number] [address] [place] CLINICAL HISTORY Normal [facility] Comment on above: Order Comment: Speci men Type: TISSUE SPECIMENOrdering Facility: [facility] Address: [address] [place] [address] Result Comment: Pre- op diagnosis: Lung mass [R91.8] Performed By: #### S , [id number] ####[facility] LABCLIA [id number] [address] OF [facility] FINAL DIAGNOSIS Normal [facility] Comment on above: Order Comment: Speci men Type: TISSUE SPECIMENOrdering Facility: [facility] Address: [address] [place] [address] Result Comment: A, B . Lung, right lower lobe, bronchoscopic biopsies: - Fragments of keratinizing squamous cell carcinoma. Performed By: #### S , [id number] ####[facility] LABCLIA [id number] [address] [place] FINAL PERFORMING LAB Normal [facility] Comment on above: Order Comment: Speci men Type: TISSUE SPECIMENOrdering Facility: [facility] Address: [address] [place] [address] Result Comment: Diag nostic interpretation performed at [facility], [address] [place] [address] CLIA# [id number] House Mover Helper: Ike Reaves M.D. Performed By: #### S , [id number] ####[facility] LABCLIA [id number] [place] [address] [place] GROSS DESCRIPTION Normal [facility] Comment on above: Order Comment: Speci men Type: TISSUE SPECIMENOrdering Facility: [facility] Address: [address] [place] [address] Result Comment: A. L jill, Right Lower [...] 0.2 cm. Totally submitted in one cassette. [facility] September 19, 2023 2:40 PM Gross examination performed at [facility], [address] [place] [address] Performed By: #### S , [id number] ####[facility] LABCLIA [id number] [address] [place] [facility] STEVIE [facility]ANCHE[facility] ([id number]) 1950 M Date Time Provider Department 08/11/23 THAD GARRETT During your visit today, we recorded the following information about you: Thad Garrett MD 08/14/2023 11:00 AM Signed Spoke to patient regarding inhalers. Wixela costing patient close to $25. Patient will chart picker the inhaler. Advised to bring his inhalers [...] Encounter Num (more content not included)... Normal [facility] No Panel Informationon 07-03 Clyde Vigno [facility] [address] [place] [address] Test Date: 2023-07-04 Pat Name: STEVIE SANCHEZ Department: Room: Gender: Male Black Jack Dealer: : 1950 Requested By: Order Number: [id number] Reading MD: Jamilah Bowling MD Interpretive Statements [...] 15:44:40 EDT by Jamilah Bowling MD ID: [id number] Name: STEVIE SANCHEZ Race: White Ht: 67.64 [...] 0.38 -8 FIVC (L) 3.69 4.14 12 AGC51-58 (L/sec) 0.69 0.97 2.26 4.10 30 0.78 [...] O BSTRUCTEDon 07-04-2023 DLCO (ml/min/mmHg) 23.32 ml/min/mmHg [facility] DLCO/VA (ml/min/mmHg/L) 3.89 ml/min/mmHg/L [facility] DLCOcor (ml/min/mmHg) 22.59 ml/min/mmHg [facility] RBF56-20% POST (L/S) 0.78 L/S [facility] YII66-58% PRE (L/S) 0.69 L/S [facility] FEV1 PRE (L) 2.40 L [facility] FEV1/FVC POST (%) 56 % [facility] nd [facility] [facility] FEV1/FVC PRE (%) 56 % [facility] d [facility] FEV1_POST (L) 2.47 L [facility] FVC POST (L) 4.37 L [facility] FVC PRE (L) 4.26 L [facility] PEF POST (L/S) 5.52 L/S [facility] PEF PRE (L/S) 5.62 L/S [facility] VA (L) 5.99 L [facility] ANES POSTPROC EVALon 024 ANES POSTPROC EVAL HNO ID: [id number] Author: IVANIA WINSTON MD Service: Anesthesiology Author Type: Anesthesiologist Type: Anesthesia Postprocedure Evaluation Filed: 06/20/2023 14:53 Note Text: POST ANESTHESIA EVALUATION NOTE : 1950 Procedure Summary Date: 06/20/23 Room / Location: [facility] / [facility] Anesthesia Start: 1227 Anesthesia Stop: 1342 Procedure: [...] June 20, 2023 TIME: 2:53 PM CSN: [id number] [facility] ANES PRE-OPon 06-20-2023 ANES PRE-OP HNO ID: [id number] Author: IVANIA WINSTON MD Service: Anesthesiology Author [...] and consent discussed: yes. Patient / Responsible Democrat agrees to proceed: yes Patient / Surrogate [...] June 20, 2023 TIME: 11:21 AM CSN: [id number] [facility] CYTOLOGY NON-GYNon 4 ADEQUACY INTERPRETATION Normal [facility] Comment on above: Order Comment: Speci men Type: SPECIMEN OBTAINED BY ASPIRATIONOrdering Facility: [facility] Address: [address] [place] [address] Result Comment: A: # 1: Lymphoid sample [...] discrete evaluation episode. Intra-procedural assessment performed at [facility], [address] [place] [address] Performed By: #### C THOMONOMargie ####[facility]ORY[facility] [id number] [address] LABCLIA [id number] [address] CASE REPORT [facility] Comment on above: Order Comment: Speci men Type: SPECIMEN OBTAINED BY ASPIRATIONOrdering Facility: [facility] Address: [address] [place] [address] Result Comment: [facility] Cytology Report Case: [id number] Authorizing Provider: Arcadio Hodgson MD Collected: 06/20/2023 12:44 PM Ordering Location: [facility] Received: 06/20/2023 01:49 PM Endoscopy - ENDO Pathologist: Oc Murphy MD Specimens: A) - Lymph Node, Transbronchial, 4L B) - Lymph Node, Transbronchial, 2R C) - Bronchus, Right Lower Lobe, Right Lower Lobe Nodule D) - Lymph Node, Transbronchial, 4R E) - Lymph Node, Transbronchial, 11RS Performed By: #### C YTONON ####[facility]ORY[facility]IA [id number] [address] LABCLIA [id number] [address] CLINICAL HISTORY Normal [facility] Comment on above: Order Comment: Speci men Type: SPECIMEN OBTAINED BY ASPIRATIONOrdering Facility: [facility] Address: [address] [place] [address] Result Comment: Pre- op diagnosis: Lung mass [R91.8] Prostate cancer, adenocarcinoma in 2020 Performed By: #### C YTONON ####[facility] [id number] [address] LABCLIA [id number] [address] DIAGNOSIS COMMENT C. After reviewing t [...] See also the related surgical pathology case [id number] with similar findings. Normal [facility] Comment on above: Order Comment: Speci men Type: SPECIMEN OBTAINED BY ASPIRATIONOrdering Facility: [facility] Address: [address] [place] [address] Performed By: #### C YTONON ####[facility] [id number] [address] LABCLIA [id number] [address] FINAL DIAGNOSIS Normal [facility] Comment on above: Order Comment: Speci men Type: SPECIMEN OBTAINED BY ASPIRATIONOrdering Facility: [facility] Address: [address] [place] [address] Result Comment: A - Lymph Node, Transbronchial, [...] Alcohol Fixed Performed By: #### C YTONON ####[facility]ORYCLIA [id number] [address] STATES OF [facility] LABCLIA [id number] [address] FINAL PERFORMING LAB [facility] Comment on above: Order Comment: Speci men Type: SPECIMEN OBTAINED BY ASPIRATIONOrdering Facility: [facility] Address: [address] [place] [address] Result Comment: Tech nical component, cloth washer operator screening performed at [facility], [address] [place] [address] CLIA# [id number] Diagnostic interpretation performed at [facility], [address] [id number] CLIA# [id number] House Mover Helper: Oc Murphy M.D. Performed By: #### C YTONON ####[facility]IA [id number] [address] LABCLIA [id number] [place] [address] [place] GROSS DESCRIPTION Normal [facility] Comment on above: Order Comment: Speci men Type: SPECIMEN OBTAINED BY ASPIRATIONOrdering Facility: [facility] Address: [address] [place] [address] Result Comment: A. L ymph Node, Transbronchial [...] 3 fixed). Performed By: #### C YTONON ####[facility]ORYCLIA [id number] [place] [id number] [facility] LABCLIA [id number] [address] [place] ORDER COMMENT Normal [facility] Comment on above: Order Comment: Speci men Type: SPECIMEN OBTAINED BY ASPIRATIONOrdering Facility: [facility] Address: [address] [place] [address] Result Comment: Pre- op diagnosis: Lung mass [R91.8] Performed By: #### C YTONON ####[facility]ORYCLIA [id number] [address] LABCLIA [id number] [place] [address] [place] ECG COMPLETEon 04-23-2024 ECG COMPLETE Ventricular Rate : 8 0 BPM Atrial Rate : 83 BPM P-R Interval : 155 ms QRS Duration : 89 ms Q-T Interval : 402 ms QTC Calculation(Bazett) : 464 ms Calculated P [place] : 59 degrees Calculated R [place] : 44 degrees Calculated T [place] : 18 degrees Sinus rhythm Atrial premature complexes Abnormal ECG Confirmed by KRYSTLE AGRAWAL MD ([id number]) on 06/22/2023 11:31:58 AM Also confirmed by KRYSTLE AGRAWAL MD ([id number]), loan expeditor SANDY CARBONE ([id number]) on 06/23/2023 2:39:58 PM NAME : STEVIE SANCHEZ PID : [id number] : 1950 Gender : Male Race : ORD : [id number] Procedure Date : Jun 20 2023 14:07:44 Edit Date : Jun 23 2023 14:39:59 Diagnosis: Sinus rhythm Atrial premature complexes Abnormal ECG Confirmed by KRYSTLE AGRAWAL MD ([id number]) on 06/22/2023 11:31:58 AM Also confirmed by KRYSTLE AGRAWAL MD ([id number]), loan expeditor SANDY CARBONE ([id number]) on 06/23/2023 2:39:58 PM Test Reason : Arrhythmia Location : 400 : FVEKG POOL Overread By : KRYSTLE AGRAWAL MD Edited By : SANDY CARBONE Referred By : , Acquired by : LYNDON ORDONEZ [facility] HISTORY PHYSICALon HISTORY PHYSICAL HNO ID: [id number] Author: ARCADIO HODGSON MD Service: Pulmonary Disease [...] DATE: June 20, 2023 TIME: 12:23 PM [facility] NURSING PROGon 06-20-2023 NURSING PROG HNO ID: [id number] Author: MELITA WICK RN Service: Nursing Author Type: Registered Nurse Type: Nursing Progress Note Filed: 06/20/2023 15:13 Note Text: 1338 received pt from endo. HR 140s-150s on monitor. Pt with gasping resp, unable to speak at this time. SUPPORT ARCHITECT remains at bedside. 1341 pt able to [...] and verbal dc instructions. Pt verbalized understanding. [facility] NURSING PROG HNO ID: [id number] Author: VANDANA HOPKINS RN Service: ? Author [...] (RECOMMENDATION): None Electronically Signed By: Vandana Hopkins [facility] SURGICAL PATHOLOGYon 024 ADDENDUM 1: [facility] Comment on above: Order Comment: Speci men Type: TISSUE SPECIMENOrdering Facility: [facility] Address: [address] [place] [address] Result Comment: GMS and Shira stains performed for the evaluation of fungal organisms and acid fast bacilli are negative. [place]07/07/2023 Addendum electronically signed by Danis Prado V, MD on 07/07/2023 at 3:07 PM Performed By: #### S ####[facility] LABIA [id number] [address] CASE REPORT [facility] Comment on above: Order Comment: Speci men Type: TISSUE SPECIMENOrdering Facility: [facility] Address: [address] [place] [address] Result Comment: [facility] Pathology Report Case: [id number] Authorizing Provider: Arcadio Hodgson MD Collected: 06/20/2023 12:49 PM Ordering Location: [facility] Received: 06/20/2023 01:27 PM Endoscopy - ENDO Pathologist: Danis Prado V, MD Specimen: Bronchus, Biopsy, RLL nodule Performed By: #### S ####[facility] LABIA [id number] [address] [place] CLINICAL HISTORY [facility] Comment on above: Order Comment: Speci men Type: TISSUE SPECIMENOrdering Facility: [facility] Address: [address] [place] [address] Result Comment: Pre- op diagnosis: Lung mass [R91.8] Performed By: #### S ####[facility] LABIA [id number] [address] OF [place] DIAGNOSIS COMMENT Deeper levels were examined. GMS and AFB stains are pending; an addendum report will follow. [facility] Comment on above: Order Comment: Speci men Type: TISSUE SPECIMENOrdering Facility: [facility] Address: [address] [place] [address] Performed By: #### S ####[facility] LABCLIA [id number] [address] [place] FINAL DIAGNOSIS Normal [facility] Comment on above: Order Comment: Speci men Type: TISSUE SPECIMENOrdering Facility: [facility] Address: [address] [place] [address] Result Comment: Righ t lung, lower lobe nodule, biopsy: - Necroinflammatory debris with scant minute fragments of lung tissue with atypical cells, not diagnostic of malignancy. [facility]/ 06/21/2023 Performed By: #### S ####[facility] LABCLIA [id number] [address] [place] FINAL PERFORMING LAB [facility] Comment on above: Order Comment: Speci men Type: TISSUE SPECIMENOrdering Facility: [facility] Address: [address] [place] [address] Result Comment: Diag nostic interpretation performed at [facility], [address] [place] [address] CLIA# [id number] House Mover Helper: Ike Reaves M.D. Performed By: #### S ####[facility] LABIA [id number] [address] [place] GROSS DESCRIPTION Normal [facility] Comment on above: Order Comment: Speci men Type: TISSUE SPECIMENOrdering Facility: [facility] Address: [address] [place] [address] Result Comment: Daniela underwood, Biopsy Received in formalin are multiple red-brown, soft feathery segments of tissue aggregating to 2.2 x 1.1 x 0.3 cm. Totally submitted in one cassette. [place] June 20, 2023 5:26 PM Gross examination performed at [facility], [address] [place] [address] Performed By: #### S ####[facility] LABCLIA [id number] [address] [place] CNPNon 06-16-2023 CNPN Telephone (PUFAMO) -- STEVIE SANCHEZ ([id number]) 1950 M Date Time Provider Department 06/16/23 [...] 06/20/23 at 1200. Advised to arrive at [id number] to [facility] admissions/registration. Aware of dietary restrictions, and to stop over the counter herbal/vitamins supplements. 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 Routing to provider as FYI. Aristides [...] by AUREA MUNOZ ADDY on 06/16/23 Normal [facility] ECG COMPLETEon 06-14-2023 Atrial Rate 82 BPM [facility] Calculated P [place] 48 degrees [facility] Calculated R [place] 58 degrees [facility] Calculated T [place] 79 degrees [facility] P-R Interval 94 ms [facility] QRS Duration 82 ms [facility] QT Interval 398 ms [facility] QTC Calculation (Bazett) 484 ms [facility] Ventricular Rate 89 BPM [facility] No Panel Informationon 05-16 Radiology Result ACTIONABLE Abnormal [facility] Vital Signs Date Time Vital Sign Value Performing Clinician Luis Alberto morrison 10-24-2024 14:20-0400 Heart rate 170 /min Praful Hernandez Work Phone: [facility] 10-24-2024 14:15-0400 Body height 172.2 cm Praful Hernandez Work Phone: [facility] 10-24-2024 14:15-0400 Body mass index (BMI) [Ratio] 24.13 kg/m2 Praful Su MD Work Phone: [facility] 10-24-2024 14:15-0400 Body temperature 98.01 [degF] Praful Hernandez Work Phone: [facility] 10-24-2024 14:15-0400 Body weight 71.55 kg Praful Hernandez Work Phone: [facility] 10-24-2024 14:15-0400 Diastolic blood pressure 78 mm[Hg] Praful Su MD Work Phone: [facility] 10-24-2024 14:15-0400 SaO2% (BldA) [Mass fraction] 97 % Praful Su MD Work Phone: [facility] 10-24-2024 14:15-0400 Systolic blood pressure 110 mm[Hg] Praful Su MD Work Phone: [facility] 09-11-2024 11:28-0400 Body mass index (BMI) [Ratio] 25.05 kg/m2 Kevin Patterson MD Work Phone: [facility] 09-11-2024 11:28-0400 Body temperature 98.29 [degF] Kevin Patterson MD Work Phone: [facility] 09-11-2024 11:28-0400 Body weight 79.2 kg Kevin Patterson MD Work Phone: [facility] 09-11-2024 11:28-0400 Diastolic blood pressure 76 mm[Hg] Kevin Patterson MD Work Phone: [facility] 09-11-2024 11:28-0400 Heart rate 79 /min Kevin Patterson MD Work Phone: [facility] 09-11-2024 11:28-0400 Respiratory rate 18 /min Kevin Patterson MD Work Phone: [facility] 09-11-2024 11:28-0400 SaO2% (BldA) [Mass fraction] 97 % Kevin Patterson MD Work Phone: [facility] 09-11-2024 11:28-0400 Systolic blood pressure 135 mm[Hg] Kevin Patterson MD Work Phone: [facility] 08-23-2024 11:17-0400 Body mass index (BMI) [Ratio] 24.74 kg/m2 Elias Goss MD Work Phone: [facility] 08-23-2024 11:17-0400 Body weight 78.2 kg Elias Goss MD Work Phone: [facility] 2024 10:06-0400 Body height 177.8 cm Romina Kahn APRN.WELL SURVEYING ENGINEER Work Phone: [facility] 2024 10:06-0400 Body mass index (BMI) [Ratio] 24.42 kg/m2 Romina Kahn APRN.WELL SURVEYING ENGINEER Work Phone: [facility] 2024 10:06-0400 Body temperature 98.01 [degF] Romina Kahn APRN.WELL SURVEYING ENGINEER Work Phone: [facility] 2024 10:06-0400 Body weight 77.2 kg Romina aKhn APRN.WELL SURVEYING ENGINEER Work Phone: [facility] 2024 10:06-0400 Diastolic blood pressure 77 mm[Hg] Romina Kahn APRN.WELL SURVEYING ENGINEER Work Phone: [facility] 2024 10:06-0400 Heart rate 73 /min Romina Kahn APRN.WELL SURVEYING ENGINEER Work Phone: [facility] 2024 10:06-0400 Respiratory rate 14 /min Romina Kahn APRN.WELL SURVEYING ENGINEER Work Phone: [facility] 2024 10:06-0400 SaO2% (BldA) [Mass fraction] 96 % Romina Kahn APRN.WELL SURVEYING ENGINEER Work Phone: [facility] 2024 10:06-0400 Systolic blood pressure 125 mm[Hg] Romina Kahn APRN.WELL SURVEYING ENGINEER Work Phone: [facility] 07-01-2024 11:07-0400 Body height 177.8 cm Season Yuniel LEE.WELL SURVEYING ENGINEER Work Phone: [facility] 07-01-2024 11:07-0400 Body mass index (BMI) [Ratio] 24.39 kg/m2 Season Yuniel LEE.WELL SURVEYING ENGINEER Work Phone: [facility] 07-01-2024 11:07-0400 Body temperature 98.49 [degF] Season Yuniel LEE.WELL SURVEYING ENGINEER Work Phone: [facility] 07-01-2024 11:07-0400 Body weight 77.11 kg Season Yuniel LEE.WELL SURVEYING ENGINEER Work Phone: [facility] 07-01-2024 11:07-0400 Diastolic blood pressure 74 mm[Hg] Season Yuniel LEE.WELL SURVEYING ENGINEER Work Phone: [facility] 07-01-2024 11:07-0400 Heart rate 76 /min Season Yuniel MOLECULAR BIOLOGY SCIENTIST.WELL SURVEYING ENGINEER Work Phone: [facility] 07-01-2024 11:07-0400 Respiratory rate 14 /min Season Yuniel MOLECULAR BIOLOGY SCIENTIST.WELL SURVEYING ENGINEER Work Phone: [facility] 07-01-2024 11:07-0400 SaO2% (BldA) [Mass fraction] 96 % Season Rosenbatsheva MOLECULAR BIOLOGY SCIENTIST.WELL SURVEYING ENGINEER Work Phone: [facility] 07-01-2024 11:07-0400 Systolic blood pressure 115 mm[Hg] Season Rosenbatsheva MOLECULAR BIOLOGY SCIENTIST.WELL SURVEYING ENGINEER Work Phone: [facility] 06-18-2024 10:14-0400 Diastolic blood pressure 72 mm[Hg] Malia Egan DO Work Phone: [facility] 06-18-2024 10:14-0400 Heart rate 77 /min Malia Egan DO Work Phone: [facility] 06-18-2024 10:14-0400 SaO2% (BldA) [Mass fraction] 96 % Malia Egan DO Work Phone: [facility] 06-18-2024 10:14-0400 Systolic blood pressure 117 mm[Hg] Malia Egan DO Work Phone: [facility] 06-13-2024 12:55-0400 Body mass index (BMI) [Ratio] 25.37 kg/m2 Thad Garrett MD Work Phone: [facility] 06-13-2024 12:55-0400 Body weight 80.2 kg Thad Hernandez Work Phone: [facility] 06-13-2024 12:55-0400 Diastolic blood pressure 72 mm[Hg] Thad Garrett MD Work Phone: [facility] 06-13-2024 12:55-0400 Heart rate 80 /min Thad Hernandez Work Phone: [facility] 06-13-2024 12:55-0400 SaO2% (BldA) [Mass fraction] 96 % Thad Garrett MD Work Phone: [facility] 06-13-2024 12:55-0400 Systolic blood pressure 120 mm[Hg] Thad Garrett MD Work Phone: [facility] 06-07-2024 10:42-0400 Body height 177.8 cm Paula Lizama MD, Ph D Work Phone: [facility] 06-07-2024 10:42-0400 Body mass index (BMI) [Ratio] 24.19 kg/m2 Paula Lizama MD, PhD Work Phone: [facility] 06-07-2024 10:42-0400 Body temperature 98.6 [degF] Paula Lizama MD, Ph D Work Phone: [facility] 06-07-2024 10:42-0400 Body weight 76.47 kg Paula Lizama MD, Ph D Work Phone: [facility] 06-07-2024 10:42-0400 Diastolic blood pressure 80 mm[Hg] Puala Lizama MD, PhD Work Phone: [facility] 06-07-2024 10:42-0400 Heart rate 75 /min Paula Lizama MD, Ph D Work Phone: [facility] 06-07-2024 10:42-0400 Respiratory rate 14 /min Paula Lizama MD, Ph D Work Phone: [facility] 06-07-2024 10:42-0400 SaO2% (BldA) [Mass fraction] 97 % Paula Lizama MD, PhD Work Phone: [facility] 06-07-2024 10:42-0400 Systolic blood pressure 124 mm[Hg] Paula Lizama MD, PhD Work Phone: [facility] 05-17-2024 14:39-0400 Body height 177.8 cm Romina Kahn APRN.CNP Work Phone: [facility] 05-17-2024 14:39-0400 Body mass index (BMI) [Ratio] 24.35 kg/m2 Romina Kahn MOLECULAR BIOLOGY SCIENTIST.WELL SURVEYING ENGINEER Work Phone: [facility] 05-17-2024 14:39-0400 Body temperature 98.49 [degF] Romina Walls MOLECULAR BIOLOGY SCIENTIST.WELL SURVEYING ENGINEER Work Phone: [facility] 05-17-2024 14:39-0400 Body weight 76.97 kg Romina Kahn MOLECULAR BIOLOGY SCIENTIST.WELL SURVEYING ENGINEER Work Phone: [facility] 05-17-2024 14:39-0400 Diastolic blood pressure 73 mm[Hg] Romina Kahn MOLECULAR BIOLOGY SCIENTIST.WELL SURVEYING ENGINEER Work Phone: [facility] 05-17-2024 14:39-0400 Heart rate 82 /min Romina Kahn MOLECULAR BIOLOGY SCIENTIST.WELL SURVEYING ENGINEER Work Phone: [facility] 05-17-2024 14:39-0400 SaO2% (BldA) [Mass fraction] 96 % Romina Kahn MOLECULAR BIOLOGY SCIENTIST.WELL SURVEYING ENGINEER Work Phone: [facility] 05-17-2024 14:39-0400 Systolic blood pressure 110 mm[Hg] Romina Kahn MOLECULAR BIOLOGY SCIENTIST.WELL SURVEYING ENGINEER Work Phone: [facility] 04-25-2024 14:21-0500 Body mass index (BMI) [Ratio] 27.66 kg/m2 Praful Su MD Work Phone: [facility] 04-25-2024 14:21-0500 Body temperature 97.5 [degF] Praful Hernandez Work Phone: [facility] 04-25-2024 14:21-0500 Body weight 80.1 kg Praful Hernandez Work Phone: [facility] 04-25-2024 14:21-0500 Diastolic blood pressure 58 mm[Hg] Praful Su MD Work Phone: [facility] 04-25-2024 14:21-0500 Heart rate 76 /min Praful Hernandez Work Phone: [facility] 04-25-2024 14:21-0500 Systolic blood pressure 100 mm[Hg] Praful Su MD Work Phone: [facility] 02-01-2024 12:13-0500 Body mass index (BMI) [Ratio] 27.25 kg/m2 Elias Goss MD Work Phone: [facility] 02-01-2024 12:13-0500 Body weight 78.93 kg Elias Goss MD Work Phone: [facility] 01-11-2024 13:11-0500 Body mass index (BMI) [Ratio] 27.75 kg/m2 Elias Goss MD Work Phone: [facility] 01-11-2024 13:11-0500 Body weight 80.38 kg Elias Goss MD Work Phone: [facility] 01-08-2024 14:27-0500 Body height 170.2 cm Romina Kahn MOLECULAR BIOLOGY SCIENTIST.WELL SURVEYING ENGINEER Work Phone: [facility] 01-08-2024 14:27-0500 Body mass index (BMI) [Ratio] 26.85 kg/m2 Romina Crowdergas MOLECULAR BIOLOGY SCIENTIST.WELL SURVEYING ENGINEER Work Phone: [facility] 01-08-2024 14:27-0500 Body temperature 97.9 [degF] Romina Crowdergas MOLECULAR BIOLOGY SCIENTIST.WELL SURVEYING ENGINEER Work Phone: [facility] 01-08-2024 14:27-0500 Body weight 77.75 kg Romina Walls MOLECULAR BIOLOGY SCIENTIST.WELL SURVEYING ENGINEER Work Phone: [facility] 01-08-2024 14:27-0500 Diastolic blood pressure 67 mm[Hg] Romina Kahn MOLECULAR BIOLOGY SCIENTIST.WELL SURVEYING ENGINEER Work Phone: [facility] 01-08-2024 14:27-0500 Heart rate 74 /min Romina Kahn MOLECULAR BIOLOGY SCIENTIST.WELL SURVEYING ENGINEER Work Phone: [facility] 01-08-2024 14:27-0500 Respiratory rate 14 /min Romina Kahn APRN.WELL SURVEYING ENGINEER Work Phone: [facility] 01-08-2024 14:27-0500 SaO2% (BldA) [Mass fraction] 95 % Romina Kahn APRN.WELL SURVEYING ENGINEER Work Phone: [facility] 01-08-2024 14:27-0500 Systolic blood pressure 115 mm[Hg] Romina Kahn APRN.WELL SURVEYING ENGINEER Work Phone: [facility] 01-04-2024 14:54-0500 Body height 170.2 cm Don Lara MD Work Phone: [facility] 01-04-2024 14:54-0500 Body mass index (BMI) [Ratio] 27.57 kg/m2 Don Lara MD Work Phone: [facility] 01-04-2024 14:54-0500 Body weight 79.83 kg Don Lara MD Work Phone: [facility] 12-19-2023 10:41-0400 Diastolic blood pressure 70 mm[Hg] Malia Egan DO Work Phone: [facility] 12-19-2023 10:41-0400 Heart rate 98 /min Malia Egan DO Work Phone: [facility] 12-19-2023 10:41-0400 SaO2% (BldA) [Mass fraction] 56 % Malia Egan DO Work Phone: [facility] 12-19-2023 10:41-0400 Systolic blood pressure 140 mm[Hg] Malia Egan DO Work Phone: [facility] 12-19-2023 08:51-0400 Body mass index (BMI) [Ratio] 29 kg/m2 Kevin Patterson MD Work Phone: [facility] 12-19-2023 08:51-0400 Body temperature 98.01 [degF] Kevin Patterson MD Work Phone: [facility] 12-19-2023 08:51-0400 Body weight 84 kg Kevin Patterson MD Work Phone: [facility] 12-19-2023 08:51-0400 Diastolic blood pressure 69 mm[Hg] Kevin Patterson MD Work Phone: [facility] 12-19-2023 08:51-0400 Heart rate 58 /min Kevin Patterson MD Work Phone: [facility] 12-19-2023 08:51-0400 Respiratory rate 12 /min Kevin Patterson MD Work Phone: [facility] 12-19-2023 08:51-0400 SaO2% (BldA) [Mass fraction] 98 % Kevin Patterson MD Work Phone: [facility] 12-19-2023 08:51-0400 Systolic blood pressure 142 mm[Hg] Kevin Patterson MD Work Phone: [facility] 11-29-2023 14:16-0400 Body mass index (BMI) [Ratio] 28.35 kg/m2 Kevin Patterson MD Work Phone: [facility] 11-29-2023 14:16-0400 Body temperature 98.8 [degF] Kevin Patterson MD Work Phone: [facility] 11-29-2023 14:16-0400 Body weight 82.1 kg Kevin Patterson MD Work Phone: [facility] 11-29-2023 14:16-0400 Diastolic blood pressure 71 mm[Hg] Kevin Patterson MD Work Phone: [facility] 11-29-2023 14:16-0400 Heart rate 64 /min Kevin Patterson MD Work Phone: [facility] 11-29-2023 14:16-0400 Respiratory rate 12 /min Kevin Patterson MD Work Phone: [facility] 11-29-2023 14:16-0400 SaO2% (BldA) [Mass fraction] 98 % Kevin Patterson MD Work Phone: [facility] 11-29-2023 14:16-0400 Systolic blood pressure 110 mm[Hg] Kevin Patterson MD Work Phone: [facility] 11-27-2023 11:05-0400 Body height 170.2 cm Romina Kahn APRN.WELL SURVEYING ENGINEER Work Phone: [facility] 11-27-2023 11:05-0400 Body mass index (BMI) [Ratio] 27.64 kg/m2 Romina Kahn APRN.WELL SURVEYING ENGINEER Work Phone: [facility] 11-27-2023 11:05-0400 Body temperature 98.29 [degF] Romina Kahn APRN.WELL SURVEYING ENGINEER Work Phone: [facility] 11-27-2023 11:05-0400 Body weight 80.06 kg Romina Kahn APRN.WELL SURVEYING ENGINEER Work Phone: [facility] 11-27-2023 11:05-0400 Diastolic blood pressure 61 mm[Hg] Romina Kahn APRN.WELL SURVEYING ENGINEER Work Phone: [facility] 11-27-2023 11:05-0400 Heart rate 61 /min Romina Kahn APRN.WELL SURVEYING ENGINEER Work Phone: [facility] 11-27-2023 11:05-0400 Respiratory rate 14 /min Romina Kahn APRN.WELL SURVEYING ENGINEER Work Phone: [facility] 11-27-2023 11:05-0400 SaO2% (BldA) [Mass fraction] 95 % Romina Kahn APRN.WELL SURVEYING ENGINEER Work Phone: [facility] 11-27-2023 11:05-0400 Systolic blood pressure 121 mm[Hg] Romina Kahn APRN.WELL SURVEYING ENGINEER Work Phone: [facility] 11-09-2023 12:31-0400 Body height 170.2 cm Paula Lizama MD, Ph D Work Phone: [facility] 11-09-2023 12:31-0400 Body mass index (BMI) [Ratio] 27.72 kg/m2 Paula Lizama MD, PhD Work Phone: [facility] 11-09-2023 12:31-0400 Body temperature 98.1 [degF] Paula Lizama MD, Ph D Work Phone: [facility] 11-09-2023 12:31-0400 Body weight 80.29 kg Paula Lizama MD, Ph D Work Phone: [facility] 11-09-2023 12:31-0400 Diastolic blood pressure 77 mm[Hg] Paula Lizama MD, PhD Work Phone: [facility] 11-09-2023 12:31-0400 Heart rate 82 /min Paula Lizama MD, Ph D Work Phone: [facility] 11-09-2023 12:31-0400 Respiratory rate 14 /min Paula Lizama MD, Ph D Work Phone: [facility] 11-09-2023 12:31-0400 SaO2% (BldA) [Mass fraction] 96 % Paula Lizama MD, PhD Work Phone: [facility] 11-09-2023 12:31-0400 Systolic blood pressure 132 mm[Hg] Paula Lizama MD, PhD Work Phone: [facility] 10-26-2023 14:18-0400 Body height 173 cm Praful Hernandez Work Phone: [facility] 10-26-2023 14:18-0400 Body mass index (BMI) [Ratio] 27.4 kg/m2 Praful Su MD Work Phone: [facility] 10-26-2023 14:18-0400 Body temperature 97.9 [degF] Praful Hernandez Work Phone: [facility] 10-26-2023 14:18-0400 Body weight 82 kg Praful Hernandez Work Phone: [facility] 10-26-2023 14:18-0400 Diastolic blood pressure 79 mm[Hg] Praful Su MD Work Phone: [facility] 10-26-2023 14:18-0400 Heart rate 89 /min Praful Hernandez Work Phone: [facility] 10-26-2023 14:18-0400 Systolic blood pressure 113 mm[Hg] Praful Su MD Work Phone: [facility] 10-19-2023 12:19-0400 Body height 170.2 cm Paula Lizama MD, Ph D Work Phone: [facility] 10-19-2023 12:19-0400 Body mass index (BMI) [Ratio] 27.8 kg/m2 Paula Lizama MD, PhD Work Phone: [facility] 10-19-2023 12:19-0400 Body temperature 97.81 [degF] Paula Lizama MD, Ph D Work Phone: [facility] 10-19-2023 12:19-0400 Body weight 80.51 kg Paula Lizama MD, Ph D Work Phone: [facility] 10-19-2023 12:19-0400 Diastolic blood pressure 78 mm[Hg] Paula Lizama MD, PhD Work Phone: [facility] 10-19-2023 12:19-0400 Heart rate 76 /min Paula Lizama MD, Ph D Work Phone: [facility] 10-19-2023 12:19-0400 Respiratory rate 14 /min Paula Lizama MD, Ph D Work Phone: [facility] 10-19-2023 12:19-0400 SaO2% (BldA) [Mass fraction] 96 % Paula Lizama MD, PhD Work Phone: [facility] 10-19-2023 12:19-0400 Systolic blood pressure 123 mm[Hg] Paula Lizama MD, PhD Work Phone: [facility] 10-17-2023 12:00-0400 Body height 171.8 cm [facility] Work Phone: [facility] 10-17-2023 12:00-0400 Body mass index (BMI) [Ratio] 27.44 kg/m2 Pulm Work Phone: [facility] 10-17-2023 12:00-0400 [facility] 10-03-2023 11:36-0400 Body height 173.8 cm Kevin Patterson MD Work Phone: [facility] Comment on above: Garrett Acosta MA 10-03-2023 11:36-0400 Body mass index (BMI) [Ratio] 27.69 kg/m2 Kevin Patterson MD Work Phone: [facility] 10-03-2023 11:36-0400 Body temperature 98.01 [degF] Kevin Patterson MD Work Phone: [facility] 10-03-2023 11:36-0400 Body weight 83.6 kg Kevin Patterson MD Work Phone: [facility] Comment on above: Garrett Acosta MA 10-03-2023 11:36-0400 Diastolic blood pressure 74 mm[Hg] Kevin Patterson MD Work Phone: [facility] 10-03-2023 11:36-0400 Heart rate 79 /min Kevin Patterson MD Work Phone: [facility] 10-03-2023 11:36-0400 Respiratory rate 14 /min Kevin Patterson MD Work Phone: [facility] 10-03-2023 11:36-0400 SaO2% (BldA) [Mass fraction] 96 % Kevin Patterson MD Work Phone: [facility] 10-03-2023 11:36-0400 Systolic blood pressure 114 mm[Hg] Kevin Patterson MD Work Phone: [facility] 09-14-2023 13:27-0400 Body height 171.3 cm Silvano Mccrary MD Work Phone: [facility] 09-14-2023 13:27-0400 Body mass index (BMI) [Ratio] 28.39 kg/m2 Silvano Mccrary MD Work Phone: [facility] 09-14-2023 13:27-0400 Body temperature 97.39 [degF] Silvano Mccrary MD Work Phone: [facility] 09-14-2023 13:27-0400 Body weight 83.3 kg Silvano Mccrary MD Work Phone: [facility] 09-14-2023 13:27-0400 Diastolic blood pressure 78 mm[Hg] Silvano Mccrary MD Work Phone: [facility] 09-14-2023 13:27-0400 Heart rate 77 /min Silvano Mccrary MD Work Phone: [facility] 09-14-2023 13:27-0400 Systolic blood pressure 122 mm[Hg] Silvano Mccrary MD Work Phone: [facility] 09-11-2023 13:35-0400 Body height 177.8 cm Pacc 2 Work Phone: [facility] 09-11-2023 13:35-0400 Body mass index (BMI) [Ratio] 26.03 kg/m2 Pacc 2 Work Phone: [facility] 09-11-2023 13:35-0400 Body temperature 98.71 [degF] Pacc 2 Work Phone: [facility] 09-11-2023 13:35-0400 Body weight 82.3 kg Pacc 2 Work Phone: [facility] 09-11-2023 13:35-0400 Diastolic blood pressure 74 mm[Hg] Pacc 2 Work Phone: [facility] 09-11-2023 13:35-0400 Heart rate 85 /min Pacc 2 Work Phone: [facility] 09-11-2023 13:35-0400 Respiratory rate 18 /min Pacc 2 Work Phone: [facility] 09-11-2023 13:35-0400 SaO2% (BldA) [Mass fraction] 96 % Pac 2 Work Phone: [facility] 09-11-2023 13:35-0400 Systolic blood pressure 119 mm[Hg] Pacc 2 Work Phone: [facility] 09-01-2023 14:25-0400 Body height 177.8 cm Thad Hernandez Work Phone: [facility] 09-01-2023 14:25-0400 Body mass index (BMI) [Ratio] 26.57 kg/m2 Thad Garrett MD Work Phone: [facility] 09-01-2023 14:25-0400 Body weight 84 kg Thad Hernandez Work Phone: [facility] 09-01-2023 14:25-0400 Diastolic blood pressure 79 mm[Hg] Thad Garrett MD Work Phone: [facility] 09-01-2023 14:25-0400 Heart rate 79 /min Thad Hernandez Work Phone: [facility] 09-01-2023 14:25-0400 SaO2% (BldA) [Mass fraction] 96 % Thad Garrett MD Work Phone: [facility] 09-01-2023 14:25-0400 Systolic blood pressure 114 mm[Hg] Thad Garrett MD Work Phone: [facility] 07-28-2023 15:13-0400 Body mass index (BMI) [Ratio] 28.4 kg/m2 Thad Garrett MD Work Phone: [facility] 07-28-2023 15:13-0400 Body weight 85 kg Thad Hernandez Work Phone: [facility] 07-28-2023 15:13-0400 Diastolic blood pressure 80 mm[Hg] Thad Garrett MD Work Phone: [facility] 07-28-2023 15:13-0400 Heart rate 82 /min Thad Hernandez Work Phone: [facility] 07-28-2023 15:13-0400 SaO2% (BldA) [Mass fraction] 96 % Thad Garrett MD Work Phone: [facility] 07-28-2023 15:13-0400 Systolic blood pressure 126 mm[Hg] Thad Garrett MD Work Phone: [facility] 06-08-2023 13:37-0400 Body weight 85.9 kg Thad Hernandez Work Phone: [facility] 06-08-2023 13:37-0400 Diastolic blood pressure 78 mm[Hg] Thad Garrett MD Work Phone: [facility] 06-08-2023 13:37-0400 Heart rate 78 /min Thad Hernandez Work Phone: [facility] 06-08-2023 13:37-0400 SaO2% (BldA) [Mass fraction] 96 % Thad Garrett MD Work Phone: [facility] 06-08-2023 13:37-0400 Systolic blood pressure 147 mm[Hg] Thad Garrett MD Work Phone: [facility] 06-06-2023 08:57-0400 Diastolic blood pressure 76 mm[Hg] Tea Jackson MD Work Phone: [facility] 06-06-2023 08:57-0400 Heart rate 70 /min Tea Jackson MD Work Phone: [facility] 06-06-2023 08:57-0400 SaO2% (BldA) [Mass fraction] 96 % Tea Jackosn MD Work Phone: [facility] 06-06-2023 08:57-0400 Systolic blood pressure 123 mm[Hg] Tea Jackson MD Work Phone: [facility] 04-27-2023 15:22-0500 Body height 173 cm Praful Hernandez Work Phone: [facility] 04-27-2023 15:22-0500 Body temperature 97.81 [degF] Praful Hernandez Work Phone: [facility] 04-27-2023 15:22-0500 Body weight 88.72 kg Praful Hernandez Work Phone: [facility] 04-27-2023 15:22-0500 Diastolic blood pressure 74 mm[Hg] Praful Su MD Work Phone: [facility] 04-27-2023 15:22-0500 Systolic blood pressure 107 mm[Hg] Praful Su MD Work Phone: [facility] 04-25-2023 10:55-0500 Diastolic blood pressure 68 mm[Hg] Phuong Ramos MOLECULAR BIOLOGY SCIENTIST.WELL SURVEYING ENGINEER Work Phone: [facility] 04-25-2023 10:55-0500 Heart rate 71 /min Phuong Ramos MOLECULAR BIOLOGY SCIENTIST.CN P Work Phone: [facility] 04-25-2023 10:55-0500 SaO2% (BldA) [Mass fraction] 95 % Phuong Ramos MOLECULAR BIOLOGY SCIENTIST.WELL SURVEYING ENGINEER Work Phone: [facility] 04-25-2023 10:55-0500 Systolic blood pressure 114 mm[Hg] Phuong Ramos MOLECULAR BIOLOGY SCIENTIST.WELL SURVEYING ENGINEER Work Phone: [facility] 10-13-2022 09:57-0400 Body height 174 cm Navid Roberts MD Work Phone: [facility] 10-13-2022 09:57-0400 Body weight 91.63 kg Navid Roberts MD Work Phone: [facility] 10-13-2022 09:57-0400 Diastolic blood pressure 72 mm[Hg] Navid Roberts MD Work Phone: [facility] 10-13-2022 09:57-0400 Heart rate 85 /min Navid Roberts MD Work Phone: [facility] 10-13-2022 09:57-0400 SaO2% (BldA) [Mass fraction] 98 % Navid Roberts MD Work Phone: [facility] 10-13-2022 09:57-0400 Systolic blood pressure 135 mm[Hg] Navid Roberts MD Work Phone: [facility] 03-30-2022 12:23-0500 Diastolic blood pressure 68 mm[Hg] Navid Roberts MD Work Phone: [facility] 03-30-2022 12:23-0500 Heart rate 93 /min Navid Roberts MD Work Phone: [facility] 03-30-2022 12:23-0500 SaO2% (BldA) [Mass fraction] 96 % Navid Roberts MD Work Phone: [facility] 03-30-2022 12:23-0500 Systolic blood pressure 120 mm[Hg] Navid Roberts MD Work Phone: [facility] 03-07-2022 13:32-0500 Body height 174.5 cm Praful Hernandez Work Phone: [facility] 03-07-2022 13:32-0500 Body temperature 97.9 [degF] Praful Hernandez Work Phone: [facility] 03-07-2022 13:32-0500 Body weight 98.16 kg Praful Hernandez Work Phone: [facility] 03-07-2022 13:32-0500 Diastolic blood pressure 62 mm[Hg] Praful Su MD Work Phone: [facility] 03-07-2022 13:32-0500 Heart rate 73 /min Praful Hernandez Work Phone: [facility] 03-07-2022 13:32-0500 SaO2% (BldA) [Mass fraction] 97 % Praful Su MD Work Phone: [facility] 03-07-2022 13:32-0500 Systolic blood pressure 110 mm[Hg] Praful Su MD Work Phone: [facility] 08-11-2021 07:57-0400 Body temperature 97.39 [degF] Praful Hernandez Work Phone: [facility] 08-11-2021 07:57-0400 Body weight 92.99 kg Praful Hernandez Work Phone: [facility] 08-11-2021 07:57-0400 Diastolic blood pressure 64 mm[Hg] Praful Su MD Work Phone: [facility] 08-11-2021 07:57-0400 Systolic blood pressure 132 mm[Hg] Praful Su MD Work Phone: [facility] Encounters Encounter Date Encounter Type Care Provider Facility Start: 11-25-2024 ambulatory Maik Juaresi lity:[facility] Start: 11-22-2024 End: 11-22-2024 ambulatory PRAFUL SU Facility:[facility] Start: 11-21-2024 ambulatory PRAFUL M[facility]dez [facility] Start: 11-19-2024 End: 11-19-2024 ambulatory PRAFUL SU Facility:[facility] Start: 11-19-2024 End: 11-19-2024 ambulatory ELIAS HILLS Facility:[facility] Start: 11-18-2024 ambulatory Maik VALENCIA Faci lity:[facility] Start: 11-11-2024 ambulatory Maik VALENCIA Faci lity:[facility] Start: 11-04-2024 End: 11-04-2024 ambulatory Kurt Pereira MD Work Phone: [place] [facility] Comment on above: [facility] Start Start: 10-31-2024 End: 10-31-2024 Orders Only Radha García APRN.WELL SURVEYING ENGINEER Work Phone: Hematology/Oncology Comment on above: Squamous cell carcin ebony of lung, unspecified laterality (HCC) (Primary Dx) Start: 10-29-2024 End: 10-29-2024 ambulatory PRAFUL SU Facility:[facility] Start: 10-25-2024 End: 10-25-2024 ambulatory Praful Su MD Work Phone: [facility] Start: 10-25-2024 End: 10-25-2024 Patient encounter [facility] Comment on above: Population Health Na vigation Outreach ([employer] [facility] ) Start: 10-24-2024 End: 11-05-2024 Evaluation and management of inpatient PRAFUL SU Facility:[facility] Start: 10-24-2024 End: 10-24-2024 Patient encounter procedure Praful Su MD Work Phone: [facility] Comment on above: Essential hypertensi on (Primary Dx); Mixed hyperlipidemia; Prostate cancer (HCC); Malignant neoplasm of lower lobe of right lung (HCC); Tachycardia Start: 10-24-2024 End: 10-24-2024 ambulatory PRAFUL SU Facility:[facility] Start: 10-22-2024 End: 10-22-2024 Telephone encounter Don Lara MD Work Phone: Urology Comment on above: Appointment Start: 09-20-2024 End: 09-20-2024 ambulatory Darcie Whitten RN Work Phone: [employer] Comment on above: Bi-Weekly Outreach ( Recurring) for Chronic Disease Management Start: 09-13-2024 End: 09-13-2024 ambulatory Darcie Whitten RN Work Phone: [employer] Comment on above: Bi-Weekly Outreach [...] 09-06-2024 ambulatory Darcie Whitten RN Work Phone: [employer] Comment on above: Initial enrollment o [place] for Chronic Disease Management Start: 09-03-2024 End: 09-03-2024 Refill Praful Su MD Work Phone: [facility] Comment on above: Refill Request Start: 08-23-2024 End: 08-23-2024 Office outpatient visit 25 minutes Elias Goss MD Work Phone: Radiation Oncology Comment on above: Malignant neoplasm o f upper lobe of right lung (HCC) (Primary Dx) Start: 08-23-2024 End: 08-23-2024 ambulatory ELIAS GOSS Facility:[facility] Start: 08-20-2024 End: 08-20-2024 Patient encounter procedure Romina Kahn APRN.WELL SURVEYING ENGINEER Work Phone: [facility] Comment on above: Neoplasm of lung (Pr imary Dx); Bronchopleural fistula (HCC); Malignant neoplasm of lower lobe of right lung (HCC) Start: 08-20-2024 End: 08-20-2024 Telemedicine consultation with patient Romina Kahn APRN.WELL SURVEYING ENGINEER Work Phone: [facility] Start: 08-20-2024 End: 08-20-2024 ambulatory PRAFUL SU Facility:[facility] Start: 08-19-2024 End: 08-19-2024 ambulatory UNKNOWN PROVIDER Facility:[facility] Start: 08-19-2024 End: 08-19-2024 Subsequent hospital visit by physician Xr [facility] Radiology Comment on above: 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] Start: 07-12-2024 End: 07-12-2024 Patient Outreach Darcie Whitten RN Work Phone: [employer] Comment on above: Weekly phone contact (Recurring) for Transitional Care Management Start: 2024 End: 2024 Patient encounter procedure Romina Kahn APRN.WELL SURVEYING ENGINEER Work Phone: [facility] Comment on above: Bronchopleural fistu la (HCC) (Primary Dx); Cancer of overlapping sites of right lung (HCC) Start: 2024 End: 2024 ambulatory PRAFUL F GEORGES Facility:[facility] Start: 2024 End: 2024 Subsequent hospital visit by physician Xr Chest Main J1 Work Phone: Radiology Comment on above: Other pneumothorax [ J93.83] Start: 07-05-2024 End: 07-05-2024 Patient Outreach Darcie Whitten RN Work Phone: [employer] Comment on above: Weekly phone contact (Recurring) for Transitional Care Management Start: 07-01-2024 [facility] Start: 07-01-2024 End: 07-01-2024 Subsequent hospital visit by physician Xr Chest Main J1 Work Phone: Radiology Comment on above: 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] Start: 07-01-2024 End: 07-01-2024 Patient encounter procedure Gabi Brice MOLECULAR BIOLOGY SCIENTIST.WELL SURVEYING ENGINEER Work Phone: [facility] Comment on above: Bronchopleural fistu la (HCC) (Primary Dx); Constipation due to opioid therapy Start: 07-01-2024 End: 07-01-2024 ambulatory PRAFUL F GEORGES Facility:[facility] Start: 07-01-2024 End: 07-01-2024 Subsequent hospital visit by physician Xr Chest Main J1 Work Phone: Radiology Comment on above: 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] Start: 06-24-2024 End: 06-24-2024 Patient Outreach Darcie Whtiten RN Work Phone: [employer] Comment on above: Initial phone contac t for Transitional Care Management Start: 06-19-2024 End: 06-23-2024 Evaluation and management of inpatient PRAFUL F GEORGES Facility:[facility] Start: 06-18-2024 End: 06-18-2024 ambulatory PRAFUL GEORGES Facility:[facility] Start: 06-18-2024 End: 06-18-2024 Patient encounter procedure [...] Start: 06-13-2024 End: 06-13-2024 ambulatory THAD GARRETT Facility:[facility] Start: 06-07-2024 End: 06-07-2024 Admission to same day surgery center Anesthesia Clearance Work Phone: [facility] Work Phone: Start: 06-07-2024 End: 06-07-2024 [...] 06-07-2024 End: 06-07-2024 ambulatory PRAFUL Fair GEORGES Facility:[facility] Start: 06-07-2024 Encounter for preprocedural laboratory examination PRAFUL SU [facility] Start: 06-07-2024 End: 06-07-2024 ambulatory PRAFUL SU Facility:[facility] Start: 06-07-2024 End: 06-07-2024 Patient encounter status Xr J1 Work Phone: [facility] Start: 06-07-2024 End: 06-07-2024 Subsequent hospital [...] status Paula Lizama MD, PhD Work Phone: [facility] Start: 05-23-2024 End: 05-23-2024 Refill Praful Su MD Work Phone: [facility] Comment on above: Refill Request Start: [...] Start: 05-17-2024 End: 05-17-2024 ambulatory PRAFUL SU Facility:[facility] Start: 05-17-2024 End: 05-17-2024 Patient encounter procedure Romina Crowdermeaghangerald VAIBHAV Work Phone: [facility] Comment on above: Malignant neoplasm o f lower lobe of right lung (HCC) (Primary Dx); Pneumothorax on right Start: 05-17-2024 End: 05-17-2024 [facility] Start: 05-17-2024 End: 05-17-2024 Subsequent hospital visit by physician Lilly Chest Main J1 Work Phone: Radiology Comment on above: Pneumothorax, unspec ified type [J93.9] Start: 05-13-2024 End: 05-13-2024 Patient Outreach Darcie Whitten RN Work Phone: [employer] [facility] Comment on above: Initial phone contac t for Transitional Care Management Start: 05-10-2024 End: 05-12-2024 Evaluation and management of inpatient PRAFUL SU Facility:[facility] Start: 05-09-2024 End: 05-09-2024 ambulatory PRAFUL Fair [facility] Facility:[facility] Start: 05-09-2024 End: 05-09-2024 Patient encounter procedure Romina Crowdermeaghangerald VAIBHAV Work Phone: [facility] Comment on above: Malignant neoplasm o f lower lobe of right lung (HCC) (Primary Dx); Pneumothorax, unspecified type Start: 05-09-2024 End: 05-09-2024 Telemedicine consultation with patient Romina Kahn VAIBHAV Work Phone: [facility] Start: 05-08-2024 End: 05-08-2024 Subsequent hospital visit by physician [facility] Radiology Comment on above: Malignant neoplasm o f unspecified part of unspecified bronchus or lung (HCC) [C34.90] Start: 05-08-2024 End: 05-08-2024 ambulatory KEVIN PATTERSON Pulmonary Medicine Comment on above: Spirometry Start: 05-08-2024 End: 05-08-2024 Patient encounter procedure Pulm Fct Lab [facility] Work Phone: Pulmonary Medicine Start: 05-07-2024 End: 05-07-2024 Follow-up encounter Praful Su MD Work Phone: [facility] Start: 05-07-2024 End: 05-07-2024 ambulatory PRAFUL SU Facility:[facility] Start: 04-25-2024 End: 04-25-2024 ambulatory PRAFUL SU Facility:[facility] Start: 04-25-2024 End: 04-25-2024 Patient encounter procedure Praful Su MD Work Phone: [facility] Comment on above: Essential hypertensi on (Primary Dx); Spinal stenosis of lumbar region with neurogenic claudication; Paresthesias; Prostate cancer (HCC); Mixed hyperlipidemia; Screening for colon cancer Start: 03-05-2024 End: 03-05-2024 Telephone encounter Elias Goss MD Work Phone: Radiation Oncology Comment on above: Appointment Opened In Error Start: 02-29-2024 End: 02-29-2024 Patient encounter procedure Cristopher Carrera MA [facility] Comment on above: Population Health Na vigation Outreach ([facility]) Start: 02-29-2024 End: 02-29-2024 Telephone encounter Elias Goss MD Work Phone: Radiation Oncology Comment on above: Appointment Start: 02-29-2024 End: 02-29-2024 [facility] Comment on above: Malignant neoplasm o f [...] Start: 02-02-2024 End: 02-02-2024 ambulatory Tayler Hernandez client service associateUndercutter Operator Management Start: 02-02-2024 End: 02-02-2024 Follow-up encounter Tayler Hernandez client service associateUndercutter Operator Management Comment on above: ACM SOLE RN ( Chart Review Sole Priority/Emergency Department Utilization); Population Health Navigation Outreach ([facility] - ED follow up ) Start: 02-01-2024 End: 02-01-2024 Unlisted evaluation and management service Elias Goss MD Work Phone: Radiation Oncology Comment on above: Postprocedural pneum othorax (Primary Dx) Start: 02-01-2024 End: 02-01-2024 Social Work Melita FLYNN Work Phone: Radiation Oncology Comment on above: 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] Start: 01-31-2024 End: 01-31-2024 Emergency department patient visit MERARI Lainez [facility] Facility:[facility] Start: 01-19-2024 End: 01-19-2024 Telephone encounter Elias Goss MD Work Phone: Radiation Oncology Comment on above: Appointment Start: 01-16-2024 End: 01-30-2024 Patient encounter procedure Elias Goss MD Work Phone: Radiation Oncology Start: 01-16-2024 End: 01-30-2024 Radiation Oncology Note Elias Goss MD Work Phone: Radiation Oncology Comment on above: Simulation Note Treatment Planning Start: 01-16-2024 End: 01-16-2024 ambulatory ELIAS GOSS Facility:[facility] Start: 01-11-2024 End: 01-11-2024 ambulatory ELIAS GOSS Facility:[facility] Start: 01-11-2024 End: 01-11-2024 Patient encounter procedure Elias Goss MD Work Phone: Radiation Oncology Comment on above: Malignant neoplasm o f upper lobe of right lung (HCC) (Primary Dx); Malignant neoplasm of unspecified part of unspecified bronchus or lung (HCC) Start: 01-08-2024 End: 01-08-2024 Patient encounter procedure Romina Kahn WELL SURVEYING ENGINEER Work Phone: Thoracic Clinic Comment on above: Malignant neoplasm o f lower lobe of right lung (HCC) (Primary Dx); Lung nodule; Chronic obstructive pulmonary disease, unspecified COPD type (HCC) Start: 01-08-2024 End: 01-08-2024 ambulatory PRAFUL F DAVIDJONATANSTUART Facility:[facility] Start: 01-08-2024 End: 01-08-2024 Subsequent hospital visit by physician Xr Chest Main J1 Work Phone: Radiology Comment on above: Malignant neoplasm o f lower lobe of right lung (HCC) [C34.31] Start: 01-05-2024 End: 01-05-2024 Telephone encounter Don Lara MD Work Phone: [facility] Comment on above: Results Start: 01-04-2024 End: 01-04-2024 ambulatory DON LARA Facility:[facility] Start: 01-04-2024 End: 01-04-2024 Patient encounter [...] Start: 12-19-2023 End: 12-19-2023 Patient encounter procedure Keivn Patterson MD Work Phone: Hematology/Oncology Comment on above: Infrarenal abdominal aortic aneurysm (AAA) without rupture (HCC) (Primary Dx) Start: 12-09-2023 ambulatory PRAFUL Fair MIHIRRICCARDOPERFECTO Dev cility:[facility] Start: 12-09-2023 End: 12-09-2023 Subsequent hospital visit by physician Ct [facility] Radiology Comment on above: Squamous cell carcin ebony of lung, unspecified laterality (HCC) [C34.90] Start: 11-29-2023 End: 11-29-2023 ambulatory Kevin Patterson MD Work Phone: Hematology/Oncology Comment on above: Squamous cell carcin ebony of lung, unspecified laterality (HCC) (Primary Dx) Start: 11-29-2023 End: 11-29-2023 Patient encounter procedure Kevin Patterson MD Work Phone: Hematology/Oncology Start: 11-27-2023 End: 11-27-2023 Patient encounter procedure Romina Kahn APRN.WELL SURVEYING ENGINEER Work Phone: [facility]acic Clinic Comment on above: [...] Patient Outreach Cecile Duggan RN Work Phone: Undercutter Operator Management Comment on above: Transition Of [...] day surgery center Anesthesia Clearance Work Phone: [facility] Work Phone: Start: 11-09-2023 End: 11-09-2023 Patient encounter procedure Anesthesia Clearance Work Phone: Cardiothoracic Comment on above: Encounter for preope rative anesthesiology assessment for thoracic surgery (Primary Dx) Start: 11-09-2023 End: 11-09-2023 Patient encounter procedure Paula Lizama MD, PhD Work Phone: Thoracic [facility] Comment on above: Malignant neoplasm o f lower lobe of right lung (HCC) (Primary Dx) Start: 11-09-2023 End: 11-09-2023 Patient encounter status Card [facility] Start: 11-09-2023 End: 11-09-2023 Subsequent hospital visit by physician Card Injection Molecular Imaging Start: 11-09-2023 End: 11-09-2023 Patient encounter status Xr J1 Work Phone: [facility] Start: 11-09-2023 End: 11-09-2023 Subsequent hospital visit by physician Xr Chest Main J1 Work Phone: Radiology Comment on above: Malignant neoplasm o f lower lobe of right lung (HCC) [C34.31] Start: 10-27-2023 End: 10-27-2023 Admission to same day surgery center Paula Lizama MD, PhD Work Phone: Thoracic [facility] Comment on above: Schedule Surgery (Ro botic right lower lobectomy C=3) Start: 10-27-2023 End: 10-27-2023 ambulatory Paula Lizama MD, PhD Work Phone: [facility]acic Clinic Start: 10-27-2023 End: 10-27-2023 Patient encounter status Paula Lizama MD, PhD Work Phone: [facility] Start: 10-26-2023 End: 10-26-2023 Patient encounter procedure Praful Su MD Work Phone: [facility] Comment on above: Essential hypertensi on [...] (Primary Dx) Start: 10-17-2023 End: 10-17-[facility]: [facility] Comment on above: Spirometry Start: 10-17-2023 End: 10-17-2023 Patient encounter procedure Pul Fct Lab [facility] Work Phone: Pulmonary Medicine Start: 10-10-2023 [...] Start: 09-19-2023 End: 09-19-2023 ambulatory ARCADIO HODGSON Facility:[facility] Start: 09-14-2023 End: 09-14-2023 Patient encounter procedure Silvano Mccrary MD Work Phone: Cardiovascular Medicine [facility] Comment on above: Preoperative cardiov ascular examination (Primary Dx); Lung mass; Mixed hyperlipidemia; Primary hypertension Start: 09-14-2023 End: 09-14-2023 Patient encounter status Silvano Mccrary MD Work Phone: [facility] Work Phone: Start: 09-11-2023 End: 09-11-2023 Admission to establishment [facility] Work Phone: Pre Anesthesia Start: 09-11-2023 End: 09-11-2023 Anesthesia consultation [facility] 2 Work Phone: Pre Anesthesia Comment on above: Pre-op evaluation (P rimary Dx); Abdominal aortic aneurysm (AAA) without rupture, unspecified part (HCC); Primary hypertension; Mixed hyperlipidemia; Cigarette nicotine dependence in remission; Glucose intolerance (impaired glucose tolerance); Prostate cancer (HCC); Paroxysmal atrial fibrillation (HCC) Start: 09-11-2023 End: 09-11-2023 [facility] Work Phone: [facility] Start: 09-04-2023 ambulatory Arcadio hickey MD [...] Preoperative state Thad Garrett MD Work Phone: [facility] Start: 09-01-2023 Telephone encounter Thad Garrett MD Work Phone: Pulmonary Medicine Start: 08-28-2023 End: 08-28-2023 Subsequent hospital visit by physician Ct [facility] Radiology Comment on above: Lung mass [R91.8] Start: 08-21-2023 Refill Praful cuellar MD Work Phone: [facility] Comment on above: Refill Request Start: 08-11-2023 Telephone encounter Thad Garrett MD Work Phone: [facility] Start: 07-31-2023 Refill Praful cuellar MD Work Phone: [facility] Comment on above: Refill Request Start: [...] 07-04-2023 Patient encounter procedure Pulm Fct Lab [facility] Work Phone: Pulmonary Medicine Start: 06-23-2023 Orders Only Thad pires MD Work Phone: Pulmonary Medicine Start: 06-20-2023 End: 06-20-2023 ambulatory Arcadio Hodgson MD Work Phone: [facility] Comment on above: Results (Post Bronch oscopy note ) Start: 06-19-2023 End: 06-19-2023 Subsequent hospital visit by physician Injection [facility] Comment on above: Lung nodules [R91.8] Start: 06-16-2023 Telephone encounter Arcadio strange MD Work Phone: Pulmonology Start: 06-14-2023 End: 06-14-2023 Subsequent hospital visit by physician [facility] Work Phone: Cardiology Lab Comment on [...] (Primary Dx) Start: 05-30-2023 ambulatory Shanti king MOLECULAR BIOLOGY SCIENTIST.WELL SURVEYING ENGINEER Work Phone: Pulmonary Medicine Start: 05-29-2023 Refill Praful cuellar MD Work Phone: [facility] Comment on above: Refill Request Start: 05-18-2023 Orders Only Phuong Beasley MOLECULAR BIOLOGY SCIENTIST.WELL SURVEYING ENGINEER Work Phone: Vascular Surgery Comment on above: Lung nodule (Primary Dx) Start: 05-17-2023 End: 05-17-[address] [facility] Start: 05-17-2023 End: 05-17-2023 Subsequent hospital visit by physician Ct [facility] Radiology Comment on above: Abdominal aortic ane urysm (AAA) without rupture, unspecified part (HCC) [I71.40] Start: 05-11-2023 Telephone encounter Praful crowder MD Work Phone: [facility] Start: 05-03-2023 Telephone encounter Praful crowder MD Work Phone: [facility] Start: 04-27-2023 End: 04-27-2023 Patient encounter procedure Praful Su MD Work Phone: [facility] Comment on above: Glucose intolerance (impaired glucose tolerance) (Primary Dx); Spinal stenosis of lumbar region with neurogenic claudication; Paresthesias; Prostate cancer (HCC); Essential hypertension; Abdominal aortic aneurysm (AAA) without rupture, unspecified part (HCC); Mixed hyperlipidemia; Screening for colon cancer Start: 04-25-2023 End: 04-25-2023 Office outpatient visit 15 minutes Phuong Beasley APRN.WELL SURVEYING ENGINEER Work Phone: Vascular Surgery Comment on above: Abdominal aortic ane urysm (AAA) without rupture, unspecified part (HCC) (Primary Dx); Primary hypertension; HDL deficiency; Encounter for other preprocedural examination Start: 04-25-2023 End: 04-25-2023 Patient encounter status Phuong Beasley APRN.WELL SURVEYING ENGINEER Work Phone: [facility] Work Phone: Start: 12-29-2022 Telephone encounter [...] 08-29-2022 Refill Praful cuellar MD Work Phone: [facility] Comment on above: Refill Request Start: 05-30-2022 Refill Praful cuellar MD Work Phone: [facility] Comment on above: Refill Request Start: 04-12-2022 End: 04-12-2022 ambulatory Negrito Neely MD Work Phone: [facility] Comment on above: Malignant neoplasm [...] Telephone encounter Praful crowder MD Work Phone: [facility] Comment on above: Results Start: 03-18-2022 Telephone encounter Praful crowder MD Work Phone: [facility] Comment on above: Results Start: 03-14-2022 Telephone encounter Praful crowder MD Work Phone: [facility] Comment on above: Orders Start: 03-11-2022 End: 03-11-2022 Subsequent hospital visit by physician [facility] 2 Work Phone: Radiology Comment on above: Canceled (CC cx: Err or or Template Change) Start: 03-07-2022 End: 03-07-2022 Patient encounter procedure Praful Su MD Work Phone: [facility] Comment on above: Essential hypertensi on (Primary Dx); Glucose intolerance (impaired glucose tolerance); Abdominal aortic aneurysm (AAA) without rupture, unspecified part; Screening for colon cancer Start: 02-07-2022 Refill Praful cuellar MD Work Phone: [facility] Comment on above: Refill Request Start: 12-07-2021 Telephone encounter Don Lara MD Work Phone: Urology Comment on above: Appointment Start: 11-25-2021 ambulatory Jocelyn Choi MA [facility] Comment on above: Population Health Na vigation Outreach ([facility]) Start: 11-17-2021 Telephone encounter Negrito snell MD Work Phone: [facility] Comment on above: Patient Question Start: 08-12-2021 Telephone encounter Praful crowder MD Work Phone: [facility] Comment on above: Results (blood test ) Start: 08-11-2021 End: 08-11-2021 Patient encounter procedure Praful Su MD Work Phone: [facility] Comment on above: Essential hypertensi on (Primary Dx); Glucose intolerance (impaired glucose tolerance); Mixed hyperlipidemia; Abdominal aortic aneurysm without rupture (HCC) Start: 06-03-2021 Refill Praful cuellar MD Work Phone: [facility] Comment on above: Refill Request Start: 05-26-2021 Telephone encounter Negrito snell MD Work Phone: [facility] Comment on above: Results Procedures Date Procedure Procedure Detail Performing Clinician Start: 11-22-2024 Follow-up visit Follow Up ROMINA DOWD Start: 2024 Radiologic exam ches t 2 views Romina Velcarleen MOLECULAR BIOLOGY SCIENTIST.WELL SURVEYING ENGINEER Work Phone: Start: 07-01-2024 Radiologic exam ches t 2 views Yuniel Baltazar MOLECULAR BIOLOGY SCIENTIST.WELL SURVEYING ENGINEER Work Phone: Start: 07-01-2024 Radiologic exam ches t 2 views Pastora Gabby MOLECULAR BIOLOGY SCIENTIST.WELL SURVEYING ENGINEER Work Phone: Start: 06-07-2024 Antibody screen PRAFUL MORLEY Comment on above: Order Comment: Speci men Type: BLOOD SPECIMENOrdering Facility: [facility] Address: [address] [place] [address] Performed By: #### T [id number] ####CC MAIN BLOOD BANKCLIA [id number] [place] [id number] [place] Start: 06-07-2024 Radiologic exam ches t 2 views Paula Lizama MD, PhD Work Phone: Start: 05-17-2024 Radiologic exam ches t 2 views Jerry Pompa MOLECULAR BIOLOGY SCIENTIST.WELL SURVEYING ENGINEER Work Phone: Start: 05-08-2024 Co diffusing capacity Eliot Kahn MOLECULAR BIOLOGY SCIENTIST.WELL SURVEYING ENGINEER Work Phone: Start: 05-07-2024 Lipid 1996 panel - S malcom or Plasma Praful Su MD Work Phone: Start: 01-08-2024 Radiologic exam ches t 2 views Romina Kahn MOLECULAR BIOLOGY SCIENTIST.WELL SURVEYING ENGINEER Work Phone: Start: 01-04-2024 Urnls dip stick/tabl et rgnt auto w/o microscopy Don Lara MD Work Phone: Start: 11-27-2023 Radiologic exam ches t 2 views Fay Araya MOLECULAR BIOLOGY SCIENTIST.WELL SURVEYING ENGINEER Work Phone: Start: 11-10-2023 Mri brain brain [...] 05-17-2023 Ct angiography chest w/contrast/noncontrast Phuong Beasley MOLECULAR BIOLOGY SCIENTIST.WELL SURVEYING ENGINEER Work Phone: Start: 05-17-2023 Cta abdl aorta&bi il iofem w/contrast&postp Phuong Beasley MOLECULAR BIOLOGY SCIENTIST.WELL SURVEYING ENGINEER Work Phone: Start: 05-02-2023 Lipid 1996 panel - S malcom or Plasma Praful Su MD Work Phone: Start: 03-14-2022 Lipid 1996 panel - S malcom or Plasma Don Lara MD Work Phone: Start: 02-08-2021 Adult depression scr eening assessment Negrito Neely MD Work Phone: Plan of Treatment Date Care Activity Detail Author Start: 05-07-2029 Lipid panel Lipid Screening [facility] Start: 05-01-2028 Lipid panel Lipid Screening [facility] Start: 10-29-2027 Diabetes Screening Diabetes Screening [facility] Start: 10-26-2027 Diabetes Screening Diabetes Screening [facility] Start: 10-25-2027 Diabetes Screening Diabetes Screening [facility] Start: 06-24-2027 Diabetes Screening Diabetes Screening [facility] Start: 06-08-2027 Diabetes Screening Diabetes Screening [facility] Start: 05-13-2027 Diabetes Screening Diabetes Screening [facility] Start: 05-08-2027 Diabetes Screening Diabetes Screening [facility] Start: 03-14-2027 Lipid 1996 panel - Serum or Plasma Lipid Screening [facility] Start: 03-14-2027 Lipid panel Lipid Screening [facility] Start: 03-14-2027 LIPID SCREEN LIPID SCREEN [facility] Start: 11-18-2026 Diabetes Screening Diabetes Screening [facility] Start: 11-08-2026 Diabetes Screening Diabetes Screening [facility] Start: 09-10-2026 Diabetes Screening Diabetes Screening [facility] Start: 05-25-2026 PROSTATE CANCER SCREENING DISCUSSION PROSTATE CANCER SCREENING DISCUSSION [facility] Start: 05-01-2026 Diabetes Screening Diabetes Screening [facility] Start: 02-08-2026 LIPID SCREEN LIPID SCREEN [facility] Start: 10-24-2025 Annual PCP Team Chronic Disease Visit Annual PCP Team Chronic Disease Visit [facility] Start: 2025 BP Controlled (<130/80) BP Controlled (<130/80) [facility] Start: 07-01-2025 BP Controlled (<130/80) BP Controlled (<130/80) [facility] Start: 06-18-2025 BP Controlled (<130/80) BP Controlled (<130/80) [facility] Start: 06-13-2025 BP Controlled (<130/80) BP Controlled (<130/80) [facility] Start: 05-17-2025 BP Controlled (<130/80) BP Controlled (<130/80) [facility] Start: 05-01-2025 Screening for malignant neoplasm of colon [facility] Start: 04-25-2025 Annual PCP Team Chronic Disease Visit Annual PCP Team Chronic Disease Visit [facility] Start: 04-25-2025 BP Controlled (<130/80) BP Controlled (<130/80) [facility] Start: 03-14-2025 DIABETES SCREEN DIABETES SCREEN [facility] Start: 03-14-2025 Diabetes Screening Diabetes Screening [facility] Start: 03-13-2025 End: 03-13-2025 Patient encounter procedure 03/13/2025 3:00 PM EST Office Visit Urology [address] [address] Don Lara MD [address] [place] [address] 1 year FU Urology Comment on above: 1 year FU Start: 01-16-2025 End: 01-16-2025 Patient encounter procedure Urology Comment on above: 1 year FU Start: 01-07-2025 BP Controlled (<130/80) BP Controlled (<130/80) [facility] Start: 01-03-2025 End: 04-04-2025 Prostate specific Ag [Mass/volume] in Serum or Plasma PROSTATE-SPECIFIC ANTIGEN DIAGNOSTIC Lab Routine Prostate cancer (HCC) Expected: 01/03/2025 (Approximate), Expires: 04/04/2025 [facility] Work Phone: Comment on above: Expected: 01/03/2025 (Approximate), Expi res: 04/04/2025 Start: 12-24-2024 End: 12-24-2024 Patient encounter procedure Vascular Surgery Comment on above: AAA riz[facility] lab and 6 motnh follow up Start: 12-18-2024 End: 06-18-2025 US Abdominal Aorta US ABD AORTA COMPLETE VAS LAB Vascular Lab Routine Infrarenal abdominal aortic aneurysm (AAA) without rupture Expected: 12/18/2024 (Approximate), Expires: 06/18/2025 [facility] Work Phone: Comment on above: Expected: 12/18/2024 [...] laterality (HCC) Expected: 12/12/2024 (Approximate), Expires: 03/13/2025 [facility] Work Phone: Comment on above: Expected: 12/12/2024 (Approximate), Expi res: 03/13/2025 Start: 12-12-2024 End: 03-13-2025 Comprehensive metabolic 2000 panel - Serum or Plasma COMPREHENSIVE METABOLIC PANEL Lab Routine Malignant neoplasm of unspecified part of unspecified bronchus or lung (HCC) Squamous cell carcinoma of lung, unspecified laterality (HCC) Expected: 12/12/2024 (Approximate), Expires: 03/13/2025 [facility] Comment on above: Expected: 12/12/2024 (Approximate), Expi res: 03/13/2025 Start: 12-12-2024 End: 03-13-2025 Prostate specific Ag [Mass/volume] in Serum or Plasma PROSTATE-SPECIFIC ANTIGEN DIAGNOSTIC Lab Routine Malignant neoplasm of unspecified part of unspecified bronchus or lung (HCC) Squamous cell carcinoma of lung, unspecified laterality (HCC) Expected: 12/12/2024 (Approximate), Expires: 03/13/2025 [facility] Comment on above: Expected: 12/12/2024 (Approximate), Expi res: 03/13/2025 Start: 12-12-2024 End: 12-12-2024 ambulatory 12/12/2024 1:00 PM EDT Results Only [facility] [address] [place] [address] labs [facility] Comment on above: labs Start: 11-28-2024 BP Controlled (<130/80) BP Controlled (<130/80) [facility] Start: 11-26-2024 BP Controlled (<130/80) BP Controlled (<130/80) [facility] Start: 11-22-2024 End: 11-22-2024 Patient encounter procedure 11/22/2024 9:30 AM EDT [facility] [address] [place] [address] Romina Kahn APRN.WELL SURVEYING ENGINEER [address] [place] [address] [facility] Comment on above: VIRTUAL Start: 11-21-2024 End: 11-21-2024 Patient encounter procedure 11/21/2024 12:30 PM EDT Appointment Radiology [address] [place] [address] CCT Radiology Comment on above: CCT Start: 11-19-2024 End: 11-19-2024 Follow-up encounter 11/19/2024 10:30 AM EDT Visit (SP) Office Hematology/Oncology [address] [address] Elias Hills MD [address] [address] scan follow up Hematology/Oncology Comment on above: scan follow up Start: 11-15-2024 End: 11-15-[address] Scan Comment on above: Squamous cell carcinoma of lung, unspeci fied laterality (HCC) [C34.90] Start: 10-29-2024 End: 10-29-2024 Admission to same day surgery center 10/29/2024 1:30 PM EDT - 10/29/2024 3:30 PM EDT Surgery Admitting [address] [place] [address] Siddharth Martinez MD [address] [place] [address] BRONCHOSCOPY FLEXIBLE ADULT Admitting Comment on above: BRONCHOSCOPY FLEXIBLE ADULT Start: 10-29-2024 End: 10-29-2024 [facility] incl fluor gdnce dx w/cell washg spx BRONCHOSCOPY FLEXIBLE ADULT Bronchiolar disease 10/29/2024 1:30 PM EDT PULM LAB H23 Start: 10-29-2024 Subsequent hospital visit by physician 10/29/2024 1:30 PM EDT Hospital Encounter Admitting [address] [place] [address] Siddharth Martinez MD [address] [place] [address] Bronchiolar disease [J98.09] Admitting Comment on above: Bronchiolar disease [J98.09] Start: 10-28-2024 [facility] Start: 10-25-2024 Annual PCP Team Chronic Disease Visit Annual PCP Team Chronic Disease Visit [facility] Start: 10-25-2024 Anxiety Screening Anxiety Screening [facility] Start: 10-25-2024 BP Controlled (<130/80) BP Controlled (<130/80) [facility] Start: 10-25-2024 Depression Screening Depression Screening [facility] Start: 10-24-2024 End: 10-24-2024 Patient encounter procedure 10/24/2024 2:20 PM EDT Office Visit [facility] [address] [place] [address] Praful Su MD [address] [place], [place] [id number] lipids follow up [facility] Comment on above: lipids follow up Start: 10-18-2024 BP Controlled (<130/80) BP Controlled (<130/80) [facility] Start: 10-02-2024 BP Controlled (<130/80) BP Controlled (<130/80) [facility] Start: 09-13-2024 BP Controlled (<130/80) BP Controlled (<130/80) [facility] Start: 09-11-2024 End: 09-11-2024 ambulatory 09/11/2024 11:10 AM EDT Visit (SP) Office Hematology/Oncology [address] [address] Kevin Patterson MD [address] [place] [address] Squamous cell carcinoma of lung, unspecified laterality Hematology/Oncology Comment on above: Squamous cell carcinoma of lung, unspeci fied laterality Start: 09-10-2024 BP Controlled (<130/80) BP Controlled (<130/80) [facility] Start: 08-31-2024 BP Controlled (<130/80) BP Controlled (<130/80) [facility] Start: 08-27-2024 Screening for malignant neoplasm of lung Lung Cancer Screening [facility] Start: 08-23-2024 End: 08-23-2024 Patient encounter procedure 08/23/2024 11:00 AM EDT Office Visit Radiation Oncology [address] [place] [address] [place] [address] [place] [address] follow up Radiation Oncology Comment on above: follow up Start: 08-20-2024 End: 08-20-2024 Patient encounter procedure 08/20/2024 1:00 PM EDT [facility] Thor[facility] [address] [place] [address] Romina Kahn, MOLECULAR BIOLOGY SCIENTIST.WELL SURVEYING ENGINEER [address] [place] [address] [facility] Comment on above: VIRTUAL Start: 08-19-2024 End: 08-19-2024 Patient encounter procedure 08/19/2024 11:00 AM EDT Appointment Radiology [address] [place] [address] cxr Radiology Comment on above: cxr Start: 08-11-2024 DIABETES SCREEN DIABETES SCREEN [facility] Start: 08-06-2024 Covid-19 Vaccine ( season) Covid-19 Vaccine ( season) [facility] Start: 2024 End: 2024 Patient encounter [...] 06/19/2024 5:18 PM EDT Surgery Admitting [address] [place] [address] Paula Lizama MD, PhD [address] [facility] [address] [place] [address] Possible Right ROBOTIC THORACOSCOPY, possible thoracotomy, possible [...] without rupture (HCC) Expected: 06/18/2024, Expires: 12/18/2024 [facility] Work Phone: Comment on above: Expected: 06/18/2024, Expires: Start: 06-18-2024 End: 06-18-2024 Patient encounter procedure Vascular Surgery Comment on above: AAA AND 6 MONTH FOLLOW UP Start: 06-13-2024 End: 06-13-2024 Patient encounter procedure 06/13/2024 3:00 PM EDT Office Visit Pulmonary Medicine [address] [id number] Thad Garrett MD [address] [place], [place] [id number] Follow up Pulmonary Medicine Comment on above: Follow up Start: 06-07-2024 End: 09-06-2024 aPTT in Platelet poor plasma by Coagulation assay ACTIVATED PARTIAL THROMBOPLASTIN TIME Lab STAT Hydropneumothorax Pre-procedure lab exam Expected: 06/07/2024, Expires: 09/06/2024 [facility] Comment on above: Expected: 06/07/2024, Expires: Start: 06-07-2024 End: 09-06-2024 CBC W Auto Differential panel - Blood COMPLETE BLOOD COUNT AND DIFFERENTIAL Lab STAT Hydropneumothorax Pre-procedure lab exam Expected: 06/07/2024, Expires: 09/06/2024 [facility] Comment on above: Expected: 06/07/2024, Expires: Start: 06-07-2024 End: 09-06-2024 Comprehensive metabolic 2000 panel - Serum or Plasma COMPREHENSIVE METABOLIC PANEL Lab STAT Hydropneumothorax Pre-procedure lab exam Expected: 06/07/2024, Expires: 09/06/2024 [facility] Comment on above: Expected: 06/07/2024, Expires: Start: 06-07-2024 End: 09-06-2024 CONFIRM BLOOD TYPE CONFIRM BLOOD TYPE Blood Bank STAT Hydropneumothorax Pre-procedure lab exam Expected: 06/07/2024, Expires: 09/06/2024 [facility] Comment on above: Expected: 06/07/2024, Expires: Start: 06-07-2024 End: 09-06-2024 PT panel - Platelet poor plasma by Coagulation assay PROTHROMBIN TIME Lab STAT Hydropneumothorax Pre-procedure lab exam Expected: 06/07/2024, Expires: 09/06/2024 [facility] Comment on above: Expected: 06/07/2024, Expires: Start: 06-07-2024 End: 09-06-2024 STAPHYLOCOCCUS AUREUS & MRSA SCREEN, PCR, NASAL STAPHYLOCOCCUS AUREUS & MRSA SCREEN, PCR, NASAL Lab STAT Hydropneumothorax Pre-procedure lab exam Expected: 06/07/2024, Expires: 09/06/2024 [facility] Comment on above: Expected: 06/07/2024, Expires: Start: 06-07-2024 End: 09-06-2024 TYPE AND SCREEN,30 DAY TYPE AND SCREEN,30 DAY Blood Bank STAT Hydropneumothorax Pre-procedure lab exam Expected: 06/07/2024, Expires: 09/06/2024 [facility] Comment on above: Expected: 06/07/2024, Expires: Start: 06-07-2024 End: 09-06-2024 URINALYSIS, DIPSTICK ONLY URINALYSIS, DIPSTICK ONLY Lab STAT Hydropneumothorax Pre-procedure lab exam Expected: 06/07/2024, Expires: 09/06/2024 [facility] Comment on above: Expected: 06/07/2024, Expires: Start: 05-22-2024 End: 05-22-2024 ambulatory 05/22/2024 2:40 PM EDT Visit (SP) Office Hematology/Oncology [address] [place] [address] [place] [address] [place] [address] Squamous cell carcinoma of lung, unspecified laterality Hematology/Oncology Comment on above: Squamous cell carcinoma of lung, unspeci fied laterality Start: 05-20-2024 End: 05-20-2024 Follow-up encounter 05/20/2024 3:00 PM EDT [facility] Radiation Oncology [address] [place] [address] [place] [address] [place] [address] follow up Radiation Oncology Comment on above: follow up Start: 05-17-2024 End: 05-17-2024 Patient encounter procedure Radiology Comment on above: cxr right basilar pneumo thorax Start: 05-09-2024 End: 05-09-2024 Patient encounter procedure 05/09/2024 1:00 PM EDT [facility] [address] [place] [address] Romina Kahn APRN.WELL SURVEYING ENGINEER [address] [place] [address] [facility] Thoracic Clinic Comment on above: VIRTUAL Start: 05-08-2024 End: 05-08-2024 ambulatory 05/08/2024 2:20 PM EDT Visit (SP) Office Hematology/Oncology [address] [place] [address] Kevin Patterson MD [address] [place], [place] [id number] Squamous cell carcinoma of lung, unspecified laterality [...] Visit Annual PCP Team Chronic Disease Visit [facility] Start: 04-26-2024 BP Controlled (<130/80) BP Controlled (<130/80) [facility] Start: 04-26-2024 Screening for malignant neoplasm of colon [facility] Start: 04-25-2024 End: 04-25-2024 Patient encounter procedure 04/25/2024 2:20 PM EST Office Visit [facility] [address] [place] [address] Praful Su MD [address] [place] [address] lipids follow up [facility] Comment on above: lipids follow up Start: 04-25-2024 End: 07-25-2024 Basic metabolic 2000 panel - Serum or Plasma BASIC METABOLIC PANEL Lab Routine Essential hypertension Expected: 04/25/2024, Expires: 07/25/2024 [facility] Work Phone: Comment on above: Expected: 04/25/2024, Expires: Start: 04-25-2024 BP Controlled (<130/80) BP Controlled (<130/80) [facility] Start: 04-25-2024 End: 07-25-2024 Lipid 1996 panel - Serum or Plasma LIPID PANEL BASIC Lab Routine Mixed hyperlipidemia Expected: 04/25/2024, Expires: 07/25/2024 [facility] Comment on above: Expected: 04/25/2024, Expires: Start: 04-08-2024 End: 04-08-2024 Telephone encounter 04/08/2024 2:30 PM EST [facility] [address] [place] [address] Negrito Neely MD [address] [place] [address] 2 yr F/U Telephone only [phone] [facility] Comment on above: 2 yr F/U Telephone only [phone] Start: 02-29-2024 End: 02-29-2024 Follow-up encounter 02/29/2024 11:30 AM EST [facility] [address] [place] [address] [place] [address] [place] [phone] 4 week follow up Radiation Oncology Comment on above: 4 week follow up Start: 02-28-2024 Advance Directive Discussion Advance Directive Discussion [facility] Start: 02-28-2024 Medicare Advantage Annual Wellness Visit [facility] Annual Wellness Visit [facility] Start: 02-14-2024 End: 02-14-2024 Patient encounter procedure 02/14/2024 3:00 PM EST Office Visit Pulmonary Medicine [address] [address] Thad Garrett MD [address] [place] [address] 5 month follow up Pulmonary Medicine Comment on above: 5 month follow up Start: 02-09-2024 DIABETES SCREEN DIABETES SCREEN [facility] Start: 02-05-2024 End: 02-05-2024 Patient encounter procedure 02/05/2024 10:00 AM EST Office Visit [facility] [address] [place], [place] [phone] Praful Su MD [address] [place] [address] ER Follow up [facility] 01/31/2024 Foreign body of right ear [facility] Comment on above: ER Follow up [facility] 01/31/2024 F oreign body of right ear Start: 02-02-2024 End: 02-02-2024 Patient encounter procedure Radiology Comment on above: cxr Malignant neoplasm o f lower lobe of right lung Start: 02-01-2024 End: 02-01-2024 Patient encounter procedure Radiation Oncology Comment on above: MLC AND FIELD VERIFICATION Location: [facility] Start: 01-16-2024 End: 01-16-2024 Patient encounter procedure 01/16/2024 11:30 AM EST Office Visit Radiation Oncology [address] [place] [address] [place] [address] [place] [address] SIMULATION SBRT LUNG Radiation Oncology Comment on above: SIMULATION SBRT LUNG Start: 01-11-2024 End: 01-11-2024 Patient encounter procedure 01/11/2024 1:00 PM EST Office Visit Radiation Oncology [address] [place] [address] [place] [address] [place] [address] Malignant neoplasm of unspecified part of unspecified [...] PM EST Office Visit Urology [address] [address] Don Lara MD [address] [place] [address] 1 year follow up Urology Comment on above: 1 year follow up Start: 01-04-2024 End: 04-04-2024 Prostate specific Ag [Mass/volume] in Serum or Plasma PROSTATE-SPECIFIC ANTIGEN DIAGNOSTIC Lab Routine Prostate cancer (HCC) Expected: 01/04/2024, Expires: 04/04/2024 [facility] Comment on above: Expected: 01/04/2024, Expires: Start: 12-20-2023 End: 12-20-2023 Patient encounter procedure 12/20/2023 3:00 PM EDT Office Visit Cardiovascular Medicine [facility] [address] [place] [address] [place] [address] [facility] [place] [address] f/u Cardiovascular Medicine [facility] Comment on above: f/u Start: 12-19-2023 End: 12-19-2023 Patient encounter procedure Vascular Surgery Comment on above: 6 MONTH FOLLOW UP WITH AAA TESTING Start: 12-19-2023 End: 12-19-2023 Follow-up encounter 12/19/2023 8:50 AM EDT Visit (SP) Office Hematology/Oncology [address] [address] Kevin Patterson MD [address] [place] [address] follow up ok per Dr. Gustafson Hematology/Oncology Comment on above: follow up ok per Dr. Gustafson Start: 12-09-2023 End: 12-09-2023 Patient encounter procedure 12/09/2023 9:00 AM EDT Appointment Radiology [address] [place] [address] Squamous cell carcinoma of lung, unspecified laterality (HCC) [C34.90] Radiology Comment on above: Squamous cell carcinoma of lung, unspeci fied laterality (HCC) [C34.90] Start: 11-29-2023 End: 11-29-2023 ambulatory 11/29/2023 2:20 PM EDT Visit (SP) Office Hematology/Oncology [address] [address] Kevin Patterson MD [address] [place], [place] [id number] Squamous cell carcinoma of lung, unspecified laterality Hematology/Oncology Comment on above: Squamous cell carcinoma of lung, unspeci fied laterality Start: 11-27-2023 End: 11-27-2023 Patient encounter procedure Radiology Comment on above: cxr Cancer of lower lobe of right lung (HCC) Start: 11-15-2023 End: 11-15-2023 Admission to same day surgery center 11/15/2023 12:33 PM EDT - 11/15/2023 4:45 PM EDT Surgery Admitting [address] [place] [address] Paula Lizama MD, PhD [address] [place] [address] ROBOTIC THORACOSCOPY; LOBECTOMY, TOTAL OR SEGMENTAL Admitting [...] 11/10/2023 12:40 PM EDT Hospital Encounter Radiology [address] [place] [address] Malignant neoplasm of lower lobe of right lung (HCC) [C34.31] Radiology Comment on above: Malignant neoplasm of lower lobe of righ t lung (HCC) [C34.31] Start: 11-09-2023 End: 02-08-2024 aPTT in Platelet poor plasma by Coagulation assay ACTIVATED PARTIAL THROMBOPLASTIN TIME Lab STAT Malignant neoplasm of lower lobe of right lung (HCC) Pre-procedure lab exam Expected: 11/09/2023, Expires: 02/08/2024 [facility] Comment on above: Expected: 11/09/2023, Expires: Start: 11-09-2023 End: 02-08-2024 CBC W Auto Differential panel - Blood COMPLETE BLOOD COUNT AND DIFFERENTIAL Lab STAT Malignant neoplasm of lower lobe of right lung (HCC) Pre-procedure lab exam Expected: 11/09/2023, Expires: 02/08/2024 [facility] Comment on above: Expected: 11/09/2023, Expires: 4 Start: 11-09-2023 End: 02-08-2024 Comprehensive metabolic 2000 panel - Serum or Plasma COMPREHENSIVE METABOLIC PANEL Lab STAT Malignant neoplasm of lower lobe of right lung (HCC) Pre-procedure lab exam Expected: 11/09/2023, Expires: 02/08/2024 [facility] Comment on above: Expected: 11/09/2023, Expires: 4 Start: 11-09-2023 End: 02-08-2024 CONFIRM BLOOD TYPE CONFIRM BLOOD TYPE Blood Bank STAT Malignant neoplasm of lower lobe of right lung (HCC) Pre-procedure lab exam Expected: 11/09/2023, Expires: 02/08/2024 [facility] Comment on above: Expected: 11/09/2023, Expires: Start: 11-09-2023 End: 11-09-2023 Patient encounter procedure Cardiology Comment on above: Preoperative clearance [Z01.818] Start: 11-09-2023 End: 02-08-2024 PT panel - Platelet poor plasma by Coagulation assay PROTHROMBIN TIME Lab STAT Malignant neoplasm of lower lobe of right lung (HCC) Pre-procedure lab exam Expected: 11/09/2023, Expires: 02/08/2024 [facility] Comment on above: Expected: 11/09/2023, Expires: 4 Start: 11-09-2023 End: 02-08-2024 STAPHYLOCOCCUS AUREUS & MRSA SCREEN, PCR, NASAL STAPHYLOCOCCUS AUREUS & MRSA SCREEN, PCR, NASAL Lab STAT Malignant neoplasm of lower lobe of right lung (HCC) Pre-procedure lab exam Expected: 11/09/2023, Expires: 02/08/2024 [facility] Work Phone: Comment on above: Expected: 11/09/2023, Expires: 4 Start: 11-09-2023 End: 02-08-2024 TYPE AND SCREEN,30 DAY TYPE AND SCREEN,30 DAY Blood Bank STAT Malignant neoplasm of lower lobe of right lung (HCC) Pre-procedure lab exam Expected: 11/09/2023, Expires: 02/08/2024 [facility] Comment on above: Expected: 11/09/2023, Expires: Start: 11-09-2023 End: 02-08-2024 URINALYSIS, DIPSTICK ONLY URINALYSIS, DIPSTICK ONLY Lab STAT Malignant neoplasm of lower lobe of right lung (HCC) Pre-procedure lab exam Expected: 11/09/2023, Expires: 02/08/2024 [facility] Comment on above: Expected: 11/09/2023, Expires: Start: 10-29-2023 Covid-19 Vaccine () Covid-19 Vaccine () [facility] Start: 10-29-2023 Covid-19 Vaccine () Covid-19 Vaccine () [facility] Start: 10-29-2023 Influenza vaccination Influenza Vaccine (#1) [facility] Start: 10-26-2023 End: 10-26-2023 Patient encounter procedure 10/26/2023 2:20 PM EDT Office Visit [facility] [address] [place] [address] Praful Su MD [address] [place] [address] lipids follow up [facility] Comment on above: lipids follow up Start: 10-19-2023 End: 10-19-2023 Patient encounter procedure 10/19/2023 12:00 PM EDT Office Visit Thoracic Clinic [address] [place] [id number] [place] [address] [place] [address] [address] [place] [address] [facility] lung cancer Thoracic Clinic Comment on above: RLL lung cancer Start: 10-17-2023 End: 10-17-2023 ambulatory 10/17/2023 11:30 AM EDT Procedure Pulmonary Medicine [address] [place] [address] [facility] lung cancer Pulmonary Medicine Comment on above: RLL lung cancer Start: 10-16-2023 End: 10-16-2023 Patient encounter procedure 10/16/2023 2:40 PM EDT Office Visit Cardiology [address] [address] Preoperative cardiovascular examination [Z01.810] Cardiology Comment on above: Preoperative cardiovascular examination [Z01.810] Start: 10-03-2023 End: 10-03-2023 FQHC visit new patient 10/03/2023 11:30 AM EDT Visit (SP) Office Hematology/Oncology [address] [address] Kevin Patterson MD [address] [place] [address] New patient Hematology/Oncology Comment on above: New patient Start: 09-21-2023 ANNUAL PCP TEAM CHRONIC DISEASE VISIT ANNUAL PCP TEAM CHRONIC DISEASE VISIT [facility] Start: 09-19-2023 End: 09-19-2023 Admission to same day surgery center 09/19/2023 10:30 AM EDT - 09/19/2023 12:00 PM EDT Surgery [facility] Endoscopy - ENDO [address] [place] [address] Arcadio Hodgson MD [address] [place] [address] BRONCHOSCOPY,RIGID/FLEXI BLE W/ FLUORO,W/ENDOBRONCHIAL ULTRASOUND (EBUS) GUIDED TRANSTRACHEAL/ TRANSBRONCHIAL ASPIRATION/BIOPSY,1 OR 2 MEDIASTINAL AND/OR HILAR LYMPH NODE STATIONS/STRUCTURES [facility] Endoscopy - ENDO Comment on above: BRONCHOSCOPY,RIGID/FLEXIBLE W/ FLUORO,W/ ENDOBRONCHIAL ULTRASOUND (EBUS) GUIDED TRANSTRACHEAL/ TRANSBRONCHIAL ASPIRATION/BIOPSY,1 OR 2 MEDIASTINAL AND/OR HILAR LYMPH NODE STATIONS/STRUCTURES Start: 09-19-2023 End: 09-19-2023 [facility] ebus guided sampl 1/2 node station/strux BRONCHOSCOPY,RIGID/FLEXI BLE W/ FLUORO,W/ENDOBRONCHIAL ULTRASOUND (EBUS) GUIDED TRANSTRACHEAL/ TRANSBRONCHIAL ASPIRATION/BIOPSY,1 OR 2 MEDIASTINAL AND/OR HILAR LYMPH NODE STATIONS/STRUCTURES Lung mass 09/19/2023 10:30 AM EDT [facility] Start: 09-19-2023 Subsequent hospital visit by physician [facility] Endoscopy - ENDO Comment on above: Lung mass [R91.8] Start: 09-15-2023 End: 09-15-2023 Patient encounter procedure 09/15/2023 3:00 PM EDT Office Visit Pulmonary Medicine [address] [address] Thad Garrett MD [address] [place] [address] patient questions Pulmonary Medicine Comment on above: patient questions Start: 09-14-2023 End: 09-14-2023 Patient encounter procedure 09/14/2023 1:30 PM EDT Office Visit Cardiovascular Medicine [facility] [address] [place] [address] [place] [address] [place] [address] clearance Cardiovascular Medicine [facility] Comment on above: clearance Start: 09-04-2023 End: 12-04-2023 Basic metabolic 2000 panel - Serum or Plasma BASIC METABOLIC PANEL Lab Routine Lung mass Expected: 09/04/2023, Expires: 12/04/2023 [facility] Work Phone: Comment on above: Expected: 09/04/2023, Expires: Start: 09-04-2023 End: 12-04-2023 CBC W Auto Differential panel - Blood COMPLETE BLOOD COUNT AND DIFFERENTIAL Lab Routine Lung mass Expected: 09/04/2023, Expires: 12/04/2023 [facility] Comment on above: Expected: 09/04/2023, Expires: Start: 09-01-2023 End: 09-01-2023 Patient encounter procedure 09/01/2023 2:30 PM EDT Office Visit Pulmonary Medicine [address] [address] Thad Garrett MD [address] [place] [address] follow up Pulmonary Medicine Comment on above: follow up Start: 08-28-2023 End: 08-26-2024 CT Chest WO contrast [facility] Work Phone: Comment on above: Expected: 08/28/2023, Expires: Start: 08-28-2023 End: 08-28-2023 Patient encounter procedure 08/28/2023 2:00 PM EDT Appointment Radiology [address] [place] [address] Lung mass [R91.8] Radiology Comment on above: Lung mass [R91.8] Start: 07-19-2023 End: 07-19-2023 Patient encounter procedure 07/19/2023 3:30 PM EDT Office Visit Pulmonary Medicine [address] [address] Thad Garrett MD [address] [place] [address] follow up Pulmonary Medicine Comment on above: follow up Start: 07-04-2023 End: 07-04-2023 ambulatory Pulmonary Medicine Comment on above: SOB (shortness of breath) [R06.02] Start: 06-30-2023 End: 06-30-2023 Patient encounter procedure Hematology/Oncology Comment on above: new consult / requested by dr rios by date and time / prostate cancer / infrahilar pulmonary mass that is malignant Start: 06-20-2023 End: 06-20-2023 [facility] ebus guided sampl 1/2 node station/strux BRONCHOSCOPY,RIGID/FLEXI BLE W/ FLUORO,W/ENDOBRONCHIAL ULTRASOUND (EBUS) GUIDED TRANSTRACHEAL/ TRANSBRONCHIAL ASPIRATION/BIOPSY,1 OR 2 MEDIASTINAL AND/OR HILAR LYMPH NODE STATIONS/STRUCTURES Lung mass 06/20/2023 12:00 PM EDT [facility] Start: 06-16-2023 Covid-19 Vaccine ( season) Covid-19 Vaccine () [facility] Start: 06-12-2023 End: 09-11-2023 CBC W Auto Differential panel - Blood COMPLETE BLOOD COUNT AND DIFFERENTIAL Lab Routine Lung mass Expected: 06/12/2023, Expires: 09/11/2023 [facility] Work Phone: Comment on above: Expected: 06/12/2023, Expires: Start: 04-27-2023 End: 07-27-2023 Basic metabolic 2000 panel - Serum or Plasma BASIC METABOLIC PNL Lab Routine Essential hypertension Expected: 04/27/2023, Expires: 07/27/2023 [facility] Work Phone: Comment on above: Expected: 04/27/2023, Expires: Start: 04-27-2023 End: 07-27-2023 Hemoglobin A1c in Blood HGB A1C Lab Routine Glucose intolerance (impaired glucose tolerance) Expected: 04/27/2023, Expires: 07/27/2023 [facility] Work Phone: Comment on above: Expected: 04/27/2023, Expires: Start: 04-27-2023 End: 07-27-2023 Lipid 1996 panel - Serum or Plasma LIPID PANEL BASIC Lab Routine Mixed hyperlipidemia Expected: 04/27/2023, Expires: 07/27/2023 [facility] Work Phone: Comment on above: Expected: 04/27/2023, Expires: Start: 04-25-2023 End: 07-25-2023 CREATININE BLD CREATININE BLD Lab Routine Abdominal aortic aneurysm (AAA) without rupture, unspecified part (HCC) Expected: 04/25/2023, Expires: 07/25/2023 [facility] Work Phone: Comment on above: Expected: 04/25/2023, Expires: Start: 04-15-2023 End: 10-14-2023 US ABD AORTA COMPLETE VAS LAB US ABD AORTA COMPLETE VAS LAB Vascular Lab Routine Infrarenal abdominal aortic aneurysm (AAA) without rupture (HCC) Expected: 04/15/2023, Expires: 10/14/2023 [facility] Work Phone: Comment on above: Expected: 04/15/2023, Expires: 4 Start: 03-30-2023 BP CONTROLLED (<130/80) BP CONTROLLED (<130/80) [facility] Start: 03-16-2023 COLORECTAL CANCER SCREENING COLORECTAL CANCER SCREENING [facility] Start: 03-16-2023 FECAL OCCULT BLOOD FECAL OCCULT BLOOD [facility] Start: 03-16-2023 Screening for malignant neoplasm of colon [facility] Start: 03-07-2023 ANNUAL PCP TEAM CHRONIC DISEASE VISIT ANNUAL PCP TEAM CHRONIC DISEASE VISIT [facility] Start: 03-07-2023 BP CONTROLLED (<130/80) BP CONTROLLED (<130/80) [facility] Start: 02-27-2023 Advance Directive Discussion Advance Directive Discussion [facility] Start: 02-27-2023 Behavioral Health Screening Behavioral Health Screening [facility] Start: 02-27-2023 Depression Assessment Depression Assessment [facility] Start: 10-28-2022 Covid-19 Vaccine () Covid-19 Vaccine () [facility] Start: 10-28-2022 Influenza vaccination [facility] Start: 08-11-2022 ANNUAL PCP TEAM CHRONIC DISEASE VISIT ANNUAL PCP TEAM CHRONIC DISEASE VISIT [facility] Start: 04-27-2022 COVID-19 VACCINE (5 - Pfizer series) COVID-19 VACCINE (5 - Pfizer series) [facility] Start: 03-07-2022 End: 05-07-2022 Basic metabolic 2000 panel - Serum or Plasma BASIC METABOLIC PNL Lab Routine Essential hypertension Expected: 03/07/2022, Expires: 05/07/2022 [facility] Work Phone: Comment on above: Expected: 03/07/2022, Expires: 3 Start: 03-07-2022 End: 05-07-2022 Hemoglobin A1c in Blood HGB A1C Lab Routine Glucose intolerance (impaired glucose tolerance) Expected: 03/07/2022, Expires: 05/07/2022 [facility] Work Phone: Comment on above: Expected: 03/07/2022, Expires: 3 Start: 03-07-2022 End: 05-07-2022 Lipid 1996 panel - Serum or Plasma LIPID PANEL BASIC Lab Routine Essential hypertension Expected: 03/07/2022, Expires: 05/07/2022 [facility] Work Phone: Comment on above: Expected: 03/07/2022, Expires: 3 Start: 02-27-2022 ADVANCE DIRECTIVE DISCUSSION ADVANCE DIRECTIVE DISCUSSION [facility] Start: 02-27-2022 DEPRESSION ASSESSMENT DEPRESSION ASSESSMENT [facility] Start: 02-18-2022 COLORECTAL CANCER SCREENING COLORECTAL CANCER SCREENING [facility] Start: 02-18-2022 FECAL OCCULT BLOOD FECAL OCCULT BLOOD [facility] Start: 02-08-2022 Adult depression screening assessment DEPRESSION SCREENING [facility] Start: 02-08-2022 ANNUAL PCP TEAM CHRONIC DISEASE VISIT ANNUAL PCP TEAM CHRONIC DISEASE VISIT [facility] Start: 02-08-2022 BP CONTROLLED (<130/80) BP CONTROLLED (<130/80) [facility] Start: 10-28-2021 Influenza vaccination INFLUENZA (#1) [facility] Start: 09-15-2021 Urine microalbumin profile [facility] Start: 08-11-2021 End: 10-11-2021 Basic metabolic 2000 panel - Serum or Plasma BASIC METABOLIC PNL Lab Routine Essential hypertension Expected: 08/11/2021, Expires: 10/11/2021 [facility] Work Phone: Comment on above: Expected: 08/11/2021, Expires: 2 Start: 06-05-2021 COVID-19 VACCINE (4 - Booster for Pfizer series) COVID-19 VACCINE (4 - Booster for Pfizer series) [facility] Start: 04-01-2021 COVID-19 VACCINE (4 - Booster for Pfizer series) COVID-19 VACCINE (4 - Booster for Pfizer series) [facility] Start: 02-27-2021 ADVANCE DIRECTIVE DISCUSSION ADVANCE DIRECTIVE DISCUSSION [facility] Start: 02-27-2021 DEPRESSION ASSESSMENT DEPRESSION ASSESSMENT [facility] Start: 12-31-2020 BP CONTROLLED (<130/80) BP CONTROLLED (<130/80) [facility] Start: 2012 RSV Vaccine (1 - 1-dose 60+ series) RSV Vaccine (1 - 1-dose 60+ series) [facility] Start: 2012 RSV Vaccine (1 - Risk 60-74 years 1-dose series) RSV Vaccine (1 - Risk 60-74 years 1-dose series) [facility] Start: 2002 SHINGRIX VACCINE (1 of 2) SHINGRIX VACCINE (1 of 2) [facility] Start: 1997 COLOGUARD (FIT-DNA) COLOGUARD (FIT-DNA) [facility] Start: 1997 Colonoscopy COLONOSCOPY [facility] Start: [address] COLONOGRAPHY [facility] Start: 1997 Screening for malignant neoplasm of colon [facility] Start: 1997 SIGMOIDOSCOPY SIGMOIDOSCOPY [facility] Start: 1982 Zoledronic acid therapy Alpha-1 Antitrypsin Deficiency Screening [facility] Start: 07-09-1971 SHINGRIX VACCINE (1 of 2) SHINGRIX VACCINE (1 of 2) [facility] Start: 1970 Anxiety Screening Anxiety Screening [facility] Start: 1970 Depression Screening Depression Screening [facility] ebus guided sampl 1/2 node station/strux BRONCHOSCOPY,RIGID/FLEXI BLE W/ FLUORO,W/ENDOBRONCHIAL ULTRASOUND (EBUS) GUIDED TRANSTRACHEAL/ TRANSBRONCHIAL ASPIRATION/BIOPSY,1 OR 2 MEDIASTINAL AND/OR HILAR LYMPH NODE STATIONS/STRUCTURES Lung mass [facility] End: 01-17-2025 CT Chest W contrast IV CT CHEST W IVCON Radiology Routine Malignant neoplasm of unspecified part of unspecified bronchus or lung (HCC) 1 Occurrences starting 12/19/2023 until 01/17/2025 [facility] Work Phone: Comment on above: 1 Occurrences starting 12/19/2023 until 01/17/2025 CT Chest W contrast IV CT CHEST W IVCON Radiology Routine Malignant neoplasm of unspecified part of unspecified bronchus or lung (HCC) 05/08/2024 2:21 PM EDT [facility] Work Phone: End: 09-19-2025 CT Chest W contrast IV CT CHEST W IVCON Radiology Routine Neoplasm of lung 1 Occurrences starting 08/20/2024 until 09/19/2025 [facility] Work Phone: Comment on above: 1 Occurrences starting 08/20/2024 until 09/19/2025 End: 12-28-2024 CT Chest WO contrast CT CHEST WO IVCON Radiology Routine Squamous cell carcinoma of lung, unspecified laterality (HCC) 1 Occurrences starting 11/29/2023 until 12/28/2024 [facility] Work Phone: Comment on above: 1 Occurrences starting 11/29/2023 until 12/28/2024 CT Chest WO contrast CT CHEST WO IVCON Radiology Routine Squamous cell carcinoma of lung, unspecified laterality (HCC) 12/09/2023 9:13 AM EDT [facility] Work Phone: End: 05-24-2024 CTA Abdominal, Pelvis and Lower extremity vessels W contrast IV CTA ABD/PEL LOWER EXTREM W IVCON Radiology Routine Abdominal aortic aneurysm (AAA) without rupture, unspecified part (HCC) 1 Occurrences starting 04/25/2023 until 05/24/2024 [facility] Work Phone: Comment on above: 1 Occurrences starting 04/25/2023 until 05/24/2024 End: 05-24-2024 CTA Chest vessels WO and W contrast IV CTA CHEST (NONGATED) WO/W IVCON Radiology Routine Encounter for other preprocedural examination 1 Occurrences starting 04/25/2023 until 05/24/2024 [facility] Work Phone: Comment on above: 1 Occurrences starting 04/25/2023 until 05/24/2024 End: 04-06-2023 Dup-scan artl lola abdl/pel/scrot&/rpr orgn lmt US DOPPLER AORTA Radiology Routine Abdominal aortic aneurysm (AAA) without rupture, unspecified part 1 Occurrences starting 03/07/2022 until 04/06/2023 [facility] Work Phone: Comment on above: 1 Occurrences starting 03/07/2022 until 04/06/2023 End: 06-11-2024 ECG COMPLETE ECG COMPLETE ECG Routine Lung mass 1 Occurrences starting 06/12/2023 until 06/11/2024 [facility] Work Phone: Comment on above: 1 Occurrences starting 06/12/2023 until 06/11/2024 End: 08-30-2025 ECG COMPLETE ECG COMPLETE ECG STAT Malignant neoplasm of lower lobe of right lung (HCC) Pre-procedure lab exam 1 Occurrences starting 10/27/2023 until 10/26/2024 [facility] Comment on above: 1 Occurrences starting 10/27/2023 until 10/26/2024 End: 09-13-2024 Echocardiography ECHO Cardiology Routine Preoperative cardiovascular examination Primary hypertension 1 Occurrences starting 09/14/2023 until 09/13/2024 [facility] Work Phone: Comment on above: 1 Occurrences starting 09/14/2023 until 09/13/2024 Hemoglobin.gastroint estin al.lower [Presence] in Stool by Immunoassay FECAL OCCULT BLOOD TEST Lab Routine Screening for colon cancer Ordered: 03/07/2022 [facility] Work Phone: Comment on above: Ordered: 03/07/2022 Hemoglobin.gastroint estin al.lower [Presence] in Stool by Immunoassay FECAL OCCULT BLOOD TEST Lab Routine Screening for colon cancer Ordered: 04/27/2023 [facility] Work Phone: Comment on above: Ordered: 04/27/2023 Hemoglobin.gastroint estin al.lower [Presence] in Stool by Immunoassay IMMUNOCHEMICAL FECAL OCCULT BLOOD TEST Lab Routine Screening for colon cancer Ordered: 04/25/2024 [facility] Comment on above: Ordered: 04/25/2024 End: 07-07-2024 LUNG DIFFUSION CAPACITY (DLCO) LUNG DIFFUSION CAPACITY (DLCO) PFT Routine SOB (shortness of breath) 1 Occurrences starting 06/08/2023 until 07/07/2024 [facility] Work Phone: Comment on above: 1 Occurrences starting 06/08/2023 until 07/07/2024 End: 02-06-2025 LUNG DIFFUSION CAPACITY (DLCO) LUNG DIFFUSION CAPACITY (DLCO) PFT Routine Chronic obstructive pulmonary disease, unspecified COPD type (HCC) 1 Occurrences starting 01/08/2024 until 02/06/2025 [facility] Work Phone: Comment on above: 1 Occurrences starting 01/08/2024 until 02/06/2025 LUNG DIFFUSION CAPAC ITY (DLCO) LUNG DIFFUSION CAPACITY (DLCO) PFT Routine Chronic obstructive pulmonary disease, unspecified COPD type (HCC) 05/08/2024 12:45 PM EDT [facility] Work Phone: End: 11-01-2024 MR Brain WO and W contrast IV MRI BRAIN WO/W IVCON Radiology Routine Squamous cell carcinoma of lung, unspecified laterality (HCC) Malignant neoplasm of lung, unspecified laterality, unspecified part of lung (HCC) 1 Occurrences starting 10/03/2023 until 11/01/2024 [facility] Work Phone: Comment on above: 1 Occurrences starting 10/03/2023 until 11/01/2024 End: 11-26-2024 NM Heart Perfusion W multiple states of exercise NM CARDIAC PERF STRESS/EXERCISE Radiology Routine Malignant neoplasm of lower lobe of right lung (HCC) Pre-procedure lab exam Encounter for other preprocedural examination 1 Occurrences starting 10/27/2023 until 11/26/2024 [facility] Comment on above: 1 Occurrences starting 10/27/2023 until 11/26/2024 End: 07-07-2024 PET+CT Guidance for localization of tumor of 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-- W 18F-FDG IV NM PET/CT SKULL-THIGH INITIAL Radiology Routine Lung nodules 1 Occurrences starting 06/08/2023 until 07/07/2024 [facility] Work Phone: Comment on above: 1 Occurrences starting 06/08/2023 until 07/07/2024 PET+CT Guidance for localization of tumor of 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-- W 18F-FDG IV NM PET/CT SKULL-THIGH INITIAL Radiology Routine Lung nodules 06/19/2023 2:31 PM EDT [facility] Work Phone: End: 11-30-2025 PET+CT Guidance for localization of tumor of 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-- W 18F-FDG IV NM PET/CT SKULL-THIGH INITIAL Radiology Routine Squamous cell carcinoma of lung, unspecified laterality (HCC) 1 Occurrences starting 10/31/2024 until 11/30/2025 [facility] Work Phone: Comment on above: 1 Occurrences starting 10/31/2024 until 11/30/2025 End: 04-12-2023 Prostate specific Ag [Mass/volume] in Serum or Plasma PSA/PROSTSPECAG DIAG Lab Routine Malignant neoplasm of prostate (HCC) Every 6 months for 4 Occurrences starting 04/12/2022 until 04/12/2023 [facility] Work Phone: Comment on above: Every 6 months for 4 Occurrences startin g 04/12/2022 until 04/12/2023 End: 11-09-2024 SIX MINUTE WALK SIX MINUTE WALK PFT Routine Malignant neoplasm of lower lobe of right lung (HCC) Lung nodule 1 Occurrences starting 10/11/2023 until 11/09/2024 [facility] Work Phone: Comment on above: 1 Occurrences starting 10/11/2023 until 11/09/2024 End: 07-07-2024 SPIROMETRY WITH DILATOR IF OBSTRUCTED SPIROMETRY WITH DILATOR IF OBSTRUCTED PFT Routine SOB (shortness of breath) 1 Occurrences starting 06/08/2023 until 07/07/2024 [facility] Work Phone: Comment on above: 1 Occurrences starting 06/08/2023 until 07/07/2024 End: 02-06-2025 SPIROMETRY WITH DILATOR IF OBSTRUCTED SPIROMETRY WITH DILATOR IF OBSTRUCTED PFT Routine Chronic obstructive pulmonary disease, unspecified COPD type (HCC) 1 Occurrences starting 01/08/2024 until 02/06/2025 [facility] Comment on above: 1 Occurrences starting 01/08/2024 until 02/06/2025 SPIROMETRY WITH DILA TOR IF OBSTRUCTED SPIROMETRY WITH DILATOR IF OBSTRUCTED PFT Routine Chronic obstructive pulmonary disease, unspecified COPD type (HCC) 05/08/2024 12:45 PM EDT [facility] Work Phone: Thoracoscopy w/lobec ish single lobe [...] part 1 Occurrences starting 03/16/2022 until 03/16/2023 [facility] Work Phone: Comment on above: 1 Occurrences starting 03/16/2022 until 03/16/2023 End: 03-30-2023 US ABD AORTA COMPLETE VAS LAB US ABD AORTA COMPLETE VAS LAB Vascular Lab Routine Abdominal aortic aneurysm (AAA) without rupture, unspecified part 1 Occurrences starting 03/30/2022 until 03/30/2023 [facility] Work Phone: Comment on above: 1 Occurrences starting 03/30/2022 until 03/30/2023 End: 06-05-2024 US Abdominal Aorta US ABD AORTA COMPLETE VAS LAB Vascular Lab Routine Abdominal aortic aneurysm (AAA) without rupture, unspecified part (HCC) 1 Occurrences starting 06/06/2023 until 06/05/2024 [facility] Work Phone: Comment on above: 1 Occurrences starting 06/06/2023 until 06/05/2024 End: 04-06-2023 Us retroperitoneal real time w/image limited US ABD AORTA Radiology Routine Abdominal aortic aneurysm (AAA) without rupture, unspecified part 1 Occurrences starting 03/07/2022 until 04/06/2023 [facility] Work Phone: Comment on above: 1 Occurrences starting 03/07/2022 until 04/06/2023 End: 11-26-2024 XR Chest PA and Lateral XR CHEST 2V FRONTAL/LAT Radiology STAT Malignant neoplasm of lower lobe of right lung (HCC) Pre-procedure lab exam 1 Occurrences starting 10/27/2023 until 11/26/2024 [facility] Comment on above: 1 Occurrences starting 10/27/2023 until 11/26/2024 End: 12-26-2024 XR Chest PA and Lateral XR CHEST 2V FRONTAL/LAT Radiology Routine Malignant neoplasm of lower lobe of right lung (HCC) 1 Occurrences starting 11/27/2023 until 12/26/2024 [facility] Work Phone: Comment on above: 1 Occurrences starting 11/27/2023 until 12/26/2024 End: 03-02-2025 XR Chest PA and Lateral XR CHEST 2V FRONTAL/LAT Radiology Routine Postprocedural pneumothorax 1 Occurrences starting 02/01/2024 until 03/02/2025 [facility] Work Phone: Comment on above: 1 Occurrences starting 02/01/2024 until 03/02/2025 XR Chest PA and Lateral XR CHEST 2V FRONTAL/LAT Radiology Routine Postprocedural pneumothorax 02/01/2024 12:36 PM EST [facility] End: 06-25-2025 XR Chest PA and Lateral XR CHEST 2V FRONTAL/LAT Radiology STAT Hydropneumothorax Pre-procedure lab exam 1 Occurrences starting 05/25/2024 until 06/25/2025 [facility] Work Phone: Comment on above: 1 Occurrences starting 05/25/2024 until 06/25/2025 End: 07-31-2025 XR Chest PA and Lateral XR CHEST 2V FRONTAL/LAT Radiology Routine Bronchopleural fistula (HCC) 1 Occurrences starting 07/01/2024 until 07/31/2025 [facility] Work Phone: Comment on above: 1 Occurrences starting 07/01/2024 until 07/31/2025 End: 08-07-2025 XR Chest PA and Lateral XR CHEST 2V FRONTAL/LAT Radiology Routine Bronchopleural fistula (HCC) Cancer of overlapping sites of right lung (HCC) 1 Occurrences starting 2024 until 08/07/2025 [facility] Work Phone: Comment on above: 1 Occurrences starting 2024 until 08/07/2025 XR Chest PA and Lateral XR CHEST 2V FRONTAL/LAT Radiology Routine Bronchopleural fistula (HCC) Cancer of overlapping sites of right lung (HCC) 08/19/2024 11:04 AM EDT [facility] Work Phone: [facility] GI Immunizations Immunization Date Immunization Notes Care Provider Dev [facility] 02-06-2024 influenza virus vaccine, unspecified formulation Praful Su MD Work Phone: [facility] 02-14-2023 influenza (HD-IIV4) vaccine, age 65+ yr, high dose, quadrivalent, PF (FLUZONE HIGH-DOSE) Cristopher Carrera MA [facility] 02-14-2023 influenza virus vaccine, unspecified formulation Thad Garrett MD Work Phone: [facility] 12-28-2021 influenza virus vaccine, unspecified formulation Don Lara MD Work Phone: [facility] 02-08-2021 influenza, high-dose , quadrivalent vaccine (FLUZONE HIGH DOSE QUADRIVALENT) eNgrito Neely MD Work Phone: [facility] 06-17-2020 COVID-19 vaccine, ag e 12+ yr (PFIZER-BIONTECH - PURPLE TOP) Negrito Neely MD Work Phone: [facility] Work Phone: 05-26-2020 COVID-19 vaccine, ag e 12+ yr (PFIZER-BIONTECH - PURPLE TOP) Negrito Neely MD Work Phone: [facility] Work Phone: 01-01-2020 influenza, high-dose , quadrivalent vaccine (FLUZONE HIGH DOSE QUADRIVALENT) Negrito Neely MD Work Phone: [facility] 12-27-2018 influenza, high dose seasonal, preservative-free Negrito Neely MD Work Phone: [facility] 12-27-2018 pneumococcal polysaccharide vaccine, 23 valent Negrito Neely MD Work Phone: [facility] 10-04-2017 pneumococcal conjuga te vaccine, 13 valent Negrito Neely MD Work Phone: [facility] 04-06-2017 influenza, injectabl e, quadrivalent, contains preservative Negrito Neely MD Work Phone: [facility] 11-18-2015 influenza, seasonal, injectable Negrito Neely MD Work Phone: [facility] 03-25-2015 influenza, seasonal, injectable Negrito Neely MD Work Phone: [facility] 03-10-2014 influenza, seasonal, injectable Negrito Neely MD Work Phone: [facility] 03-08-2013 influenza virus vaccine, unspecified formulation Negrito Neely MD Work Phone: [facility] 09-16-2011 tetanus toxoid, redu david diphtheria toxoid, and acellular pertussis vaccine, adsorbed Negrito Neely MD Work Phone: [facility] 02-14-2011 influenza virus vaccine, unspecified formulation Negrito Neely MD Work Phone: [facility] Payers Date Payer Category Payer Self-pay 2020 Medicare HUMANA MEDICARE HU[employer]NA MEDICARE PPO [id number] 2020-Present [phone] [place] [address] [id number] 2019 Medicare [id number] 2019 Medicare (Managed Care) HUMANA ANGEL [id number] 2019 Medicare [id number] Unknown [id number] Unknown [id number] Social History Date Type Detail Facility Start: 06-23-2010 End: 03-07-2022 Tobacco smoking status SDIS Smokes tobacco daily [facility] Start: 07-28-1981 End: 07-28-2021 History of tobacco use Cigarette Smoker [facility] Start: 06-23-2010 End: 09-20-2022 Cigarettes smoked current (pack per day) - Reported 0.15 [facility] Work Phone: Start: 06-23-2010 End: 10-19-2023 Tobacco use and exposure Smokeless tobacco non-user [facility] Start: 02-08-2021 End: 09-01-2023 Alcohol intake Current drinker of alcohol (finding) [facility] Start: 1950 Sex Assigned At Not on file C [facility] Start: 05-15-2021 End: 12-06-2021 Exposure to SARS-CoV-2 (event) Not sure [facility] Start: 03-30-2022 End: 10-19-2023 Tobacco smoking status NHIS Ex-smoker [facility] Start: 07-28-1981 End: 07-28-2021 History of tobacco use Current smoker [facility] Start: 09-20-2022 End: 10-25-2024 Tobacco use panel [facility] Work Phone: Start: 01-29-2012 Adult Depression Screening Assessment 0 [facility] Work Phone: History of tobacco use Passive smoker [facility] Start: 09-11-2023 End: 10-24-2024 Alcohol intake Ex-drinker (finding) [facility] Has the [employer], [employer], or water company threatened to shut off services in your home in past 12Mo No [facility] Work Phone: (I/We) worried wheth er (my/our) food would run out before (I/we) got money to buy more. Never true [facility] Medical Equipment Procedure Code Equipment Code Equipment Origin al Text Equipment Identifier Dates Hemoblast Bellow s And 1 Ea Short 10 Cm Cannula - [id number] Start: 11-15-2023 Goals Date Patient Goal Desired Activity /State Personal health goal Personal health goal Functional Status Date Assessment Result Facility 06-23-2024 Are you deaf, or do you have serious difficulty hearing No 06/23/2024 1:57 PM EDT Diogenes Nails RN No [facility] 06-23-2024 Are you blind, or do you have serious difficulty seeing, even when wearing glasses No 06/23/2024 1:57 PM EDT Diogenes Nails RN No [facility] 06-23-2024 Do you have serious difficulty walking or climbing stairs No 06/23/2024 1:57 PM EDT Diogenes Nails RN No [facility] 06-23-2024 Do you have difficul ty dressing or bathing No 06/23/2024 1:57 PM EDT Diogenes Nails RN No [facility] 06-23-2024 Because of a physica l, mental, or emotional condition, do you have difficulty doing errands alone such as visiting a physician's office or shopping No 06/23/2024 1:57 PM EDT Diogenes Nails RN No [facility] 05-12-2024 Are you deaf, or do you have serious difficulty hearing Yes 05/12/2024 2:11 PM EDT Shaun Nance RN Yes [facility] 05-12-2024 Are you blind, or do you have serious difficulty seeing, even when wearing glasses No 05/12/2024 2:11 PM EDShaun Degroot RN No [facility] 05-12-2024 Do you have serious difficulty walking or climbing stairs No 05/12/2024 2:11 PM PENGT Shaun Nance RN No [facility] 05-12-2024 Do you have difficul ty dressing or bathing No 05/12/2024 2:11 PM Shaun Jones RN No [facility] 05-12-2024 Because of a physica l, mental, or emotional condition, do you have difficulty doing errands alone such as visiting a physician's office or shopping No 05/12/2024 2:11 PM EDT Shaun Nance RN No [facility] 11-19-2023 Are you deaf, or do you have serious difficulty hearing No 11/19/2023 3:36 PM EDT Monica Auguste RN No [facility] 11-19-2023 Are you blind, or do you have serious difficulty seeing, even when wearing glasses No 11/19/2023 3:36 PM EDT Monica Auguste RN No [facility] 11-19-2023 Do you have serious difficulty walking or climbing stairs No 11/19/2023 3:36 PM EDT Monica Auguste RN No [facility] 11-19-2023 Do you have difficul ty dressing or bathing No 11/19/2023 3:36 PM EDT Monica Auguste RN No [facility] 11-19-2023 Because of a physica l, mental, or emotional condition, do you have difficulty doing errands alone such as visiting a physician's office or shopping No 11/19/2023 3:36 PM EDT Monica Auguste RN No [facility] Mental Status Date Assessment Result Facility 06-23-2024 Because of a physica l, mental, or emotional condition, do you have serious difficulty concentrating, remembering, or making decisions No 06/23/2024 1:57 PM EDT Diogenes Nails RN No [facility] 05-12-2024 Because of a physica l, mental, or emotional condition, do you have serious difficulty concentrating, remembering, or making decisions No 05/12/2024 2:11 PM EDT Shaun Nance RN No [facility] 11-19-2023 Because of a physica l, mental, or emotional condition, do you have serious difficulty concentrating, remembering, or making decisions No 11/19/2023 3:36 PM EDT Monica Auguste RN No [facility] Clinical Notes 09-15-2011 to 11-25-2024 Kurt Pereira MD - 11/04/2024 5:14 PM Radha Arreola APRN.CNP - 10/31/2024 3:32 PM Yunior Monsalve - 10/25/2024 1:24 PM Praful Miller MD - 10/24/2024 2:29 PM EDTPatient Instructions Note Date & Type Note Facility 11-25-2024 Note [facility] 11-22-2024 Note [facility] 11-21-2024 Note HNO ID: [id number] Author: DEN GARCIA TECHNOLOGIST Service: Radiology Author [...] PATIENT PRESENTS WITH AN IMPLANTABLE OR ATTACHED CONTINUOUS PILLOWCASE CUTTER: No RADIOLOGY DEPARTMENT: CT; Exam(s) Completed: Chest. Anesthesia: No PERIPHERAL IV DATA: Site assessment: Clean,Dry and Intact, Site disposition Discontinued SIGNED BY: TECHNOLOGIST Bettye November 21, 2024 12:28 PM [facility] 11-19-2024 Note [facility] 11-05-2024 Note HNO ID: [id number] Author: MALIA KOENIG RN Service: Care Management Author Type: Registered Nurse Type: Care Mgt Progress Note Filed: 11/05/2024 14:38 Note Text: CARE MANAGEMENT DISCHARGE NOTE SERVICE DATE: November 05, 2024 SERVICE TIME: 2:36 PM Admission Date: 10/24/2024 LOS: 12 days Discharge Arrangement Discharge Arrangement: [facility] Facility Was an expedited discharge program used?: No Services Arranged SNF Placement Provider Name: [facility] Caregiver Assessment Caregiver is ready, willing and able to meet the patient's needs as recommended by the inter-professional team: Yes Name of Caregiver: [facility] Transportation Arrangements Transportation Arrangements: Ambulance Transportation Agency and Phone #:: [facility] [phone] Date of Trip: 11/05/24 Time of Trip: 1530 Type of Service: BLS Non-emergency Is Patient Medicaid Pending?: No Was transportation financial coverage discussed with family?: Patient, Family Ticker Maintainer Location: [place] Destination: SNF Financial Care Management Responsibility: None Handoff Communication: Handoff to: Primary Care Physician Primary Care Physician Name/Phone: Praful Su MD SOC sent Additional Information: Per MD patient is medically ready for DC today AUTH approved and [facility] they are able to meet CoPAT needs SNF updated with time and orders RN provided number to call report CM updated patient at bedside and sister via phone MMT set for 3:30 per family request. Aware of potential cost associated with medical transport SIGNATURE: Malia Koenig RN PATIENT NAME: Stevie Sanchez DATE: November 05, 2024 TIME: 2:36 PM [facility] 11-05-2024 Note HNO ID: [id number] Author: MALIA KOENIG RN Service: Care Management Author Type: Registered Nurse Type: Care Mgt Progress Note Filed: 11/05/2024 09:58 Note Text: CARE MANAGEMENT PROGRESS NOTE SERVICE DATE: 11/05/2024 SERVICE TIME: 9:58 AM LOS: 12 days IMM Follow Up Copy Given: Yes Copy given to:: Patient Method: In Person SIGNATURE: Malia Koenig RN PATIENT NAME: Stevie Sanchez DATE: November 05, 2024 TIME: 9:58 AM [facility] 11-04-2024 Note HNO ID: [id number] Author: KURT PEREIRA MD Service: ? Author Type: Physician Type: Progress Notes Filed: 11/04/2024 17:15 Note Text: [facility] Outpatient Parenteral Antimicrobial Therapy (OPAT) Start Form Patient Info Patient MRN Patient Name Address Date of [id number] Stevie Sanchez [address] [facility] [id number] 1950 Start Date 11/04/2024 Physician Group [facility] Diagnosis Group Diagnosis Thoracic: Lung abscess Micro-organism [...] on an intermittent IV antibiotic dosing schedule: [facility] method: 1) Administer normal saline 5ml [...] been malignant. Plan on performing bronchoscopy/EBUS at [facility] on 10/29. Continue unasyn Follow up Provider Follow up date/time Appointment type Kurt Pereira MD 12/03/2024 In-person Provider Monitoring Treatment Course Kurt Pereira MD Address [address] [place] [address], [address], [place] [address] Prescribing Provider's signature - electronically signed by Kurt Pereira MD on 11/04/24 at 5:15 PM [facility] 11-04-2024 History of Present illness Narrative Images from the original note were not included. [facility]patient Parenteral Antimicrobial Therapy (OPAT) Start Form Patient Info Patient MRN Patient Name Address Date of [id number] Stevie Sanchez [address] [facility] [id number] 1950 Start Date 11/04/2024 Physician Group [facility] Diagnosis Group Diagnosis Thoracic: Lung abscess Micro-organism [...] on an intermittent IV antibiotic dosing schedule: [facility] method: 1) Administer normal saline 5ml [...] been malignant. Plan on performing bronchoscopy/EBUS at [facility] on 10/29. Continue unasyn Follow up Provider Follow up date/time Appointment type Kurt Pereira MD 12/03/2024 In-person Provider Monitoring Treatment Course Kurt Pereira MD Address [address] [place] [address], [place] [address] Prescribing Provider's signature - electronically signed by Kurt Pereira MD on 11/04/24 at 5:15 PM documented in this encounter [facility] 11-04-2024 Note HNO ID: [id number] Author: PATRICIA SLOAN MD Service: Care Management [...] DATE: November 04, 2024 TIME: 3:54 PM [facility] 11-04-2024 Note HNO ID: [id number] Author: RAMESH CARDOZO RN Service: Radiology Author Type: Registered Nurse Type: Procedures Filed: 11/04/2024 15:27 Note Text: PICC NURSE INSERTION NOTE DATE OF PROCEDURE: November 04, 2024 TIME OF PROCEDURE: 1445 ORDERING PHYSICIAN: Dr Sloan INFORMED CONSENT: Obtained per hospital policy. INDICATION FOR LINE PLACEMENT: COPAT CONDITION OF LINE PLACEMENT: Sterile PRIMARY PROCEDURALIST: Dejah Sanchez ANIMATION ARTIST: Ramesh Cardozo RN PRE-PROCEDURE REVIEW ALLERGIES No [...] hospitalized patients). CATHETER PLACEMENT Brand: BARD Lot: [id number] Number of Lumens: 1 Type of PICC: Power Injectable PICC Lumen Size: 4 Kazakh PLACEMENT TECHNIQUE Lidocaine: Yes, Lidocaine 1% Volume [...] Patient Education Materials: Placed in chart [facility] Line Insertion checklist was utilized during this procedure. QUESTIONS or PROBLEMS: If you have any questions, please call the [facility] Interventional Radiology department at [phone], option #3. SIGNATURE: Ramesh Cardozo RN PATIENT NAME: Stevie Sanchez DATE: November 04, 2024 TIME: 3:23 PM PAGER/CONTACT PHONE: [facility] 11-04-2024 Note HNO ID: [id number] Author: MALIA KOENIG RN Service: Care Management Author Type: Registered Nurse Type: Care Mgt Progress Note Filed: 11/04/2024 14:14 Note Text: CARE MANAGEMENT PROGRESS NOTE SERVICE DATE: 11/04/2024 SERVICE TIME: 10:27 AM LOS: 11 days Needs Prior to Discharge: IV Antibiotics, Other: See Comment, Discharge Transportation [place] Given: Yes Level of Care Discussed: [facility] Facility Provider List: [facility] Facility Provider list within the patient's requested geographic area shared with the patient/family: Yes within: 15 miles of zip code: [address] Metrics: Functional Status, Medication Reconciliation CM met with patient, nurse and MD at bedside to confirm DC plan PT/OR rec SNF Plan for CoPAT/PICC Patient requesting referral to [facility] Patient gives permission to speak with sister for alternative choices if needed CM called sister and updated. SNF choice emailed for additional SNF choices Will need final CoPAT/PICC/PRECERT/HENS prior to DC 11:15- CM received additional SNF choices from sister Requesting referrals to [facility], [facility], and [facility] Referrals sent 14:13- CM confirmed with sister SNF response Aware [facility] unable to accept. Agreeable with a dc to [facility] Still awaiting final CoPAT and will need to confirm with SNF prior to DC [facility] tasked for precert SIGNATURE: Malia Koenig RN PATIENT NAME: Stevie Sanchez DATE: November 04, 2024 TIME: 10:27 AM [facility] 11-04-2024 Note HNO ID: [id number] Author: PATRICIA SLOAN MD Service: Hospital Medicine Author Type: Physician Type: Progress Notes Filed: 11/04/2024 13:01 Note Text: DEPARTMENT OF HOSPITAL MEDICINE PROGRESS NOTE SERVICE DATE: 11/04/2024 SERVICE TIME: 1:00 PM Hospital Medicine/Primary Attending: Patricia Sloan MD NIGHT AND WEEKEND COVERAGE: [employer] COVERAGE: Days: [phone], please page attending physician. Nights: [phone], please page [place] [facility] Night coverage pager [phone]. Subjective INTERVAL HPI: - very hard of [...] cavity mass, pulmonology consulted, underwent bronchoscopy at [facility] on 10/29/2024. Showed right upper [...] and lisinopril has (more content not included)... [facility] 11-03-2024 Note HNO ID: [id number] Author: PATRICIA SLOAN MD Service: Hospital Medicine Author Type: Physician Type: Progress Notes Filed: 11/03/2024 13:38 Note Text: DEPARTMENT OF HOSPITAL MEDICINE PROGRESS NOTE SERVICE DATE: 11/03/2024 SERVICE TIME: 1:36 PM Hospital Medicine/Primary Attending: Patricia Sloan MD NIGHT AND WEEKEND COVERAGE: [employer] COVERAGE: Days: [phone], please page attending physician. Nights: [phone], please page [place] [facility] Night coverage pager [phone]. Subjective INTERVAL HPI: - very hard of [...] cavity mass, pulmonology consulted, underwent bronchoscopy at [facility] on 10/29/2024. Showed right upper [...] OT, SNF place (more content not included)... [facility] 11-02-2024 Note HNO ID: [id number] Author: PATRICIA SLOAN MD Service: Hospital Medicine Author Type: Physician Type: Progress Notes Filed: 11/02/2024 15:14 Note Text: DEPARTMENT OF HOSPITAL MEDICINE PROGRESS NOTE SERVICE DATE: 11/02/2024 SERVICE TIME: 3:12 PM Hospital Medicine/Primary Attending: Patricia Sloan MD NIGHT AND WEEKEND COVERAGE: [employer] COVERAGE: Days: [phone], please page attending physician. Nights: [phone], please page [place] [facility] Night coverage pager [phone]. Subjective INTERVAL HPI: - very hard of [...] cavity mass, pulmonology consulted, underwent bronchoscopy at [facility] on 10/29/2024. Showed right upper [...] has been stabl (more content not included)... [facility] 11-02-2024 Note HNO ID: [id number] Author: HAILE ALFARO JR, MD Service: Critical Care Author Type: Physician Type: Progress Notes Filed: 11/02/2024 13:34 Note Text: PULM / CRITICAL CARE PROGRESS NOTE SERVICE DATE: November 02, 2024 SERVICE TIME: 9:22 AM Admission Date: 10/24/2024 AGE: [age] year old LOS: 9 days Subjective Cc: infection, possible recurrent cancer Taking with care transition mgr regarding rehab No chest pain Knows that [...] hyperlipidemia Prostate cancer (HCC) 2020 xrt at [facility] [place] Smoker former quit 2021 Spinal stenosis of [...] 2R, node le (more content not included)... [facility] 11-01-2024 Note HNO ID: [id number] Author: GRACIELA SIFUENTES RN Service: Care Management Author Type: Registered Nurse Type: Care Mgt Progress Note Filed: 11/01/2024 16:21 Note Text: CARE MANAGEMENT PROGRESS NOTE SERVICE DATE: 11/01/2024 SERVICE TIME: 12:43 PM LOS: 8 days Needs Prior to Discharge: To Be Determined, Accepting Facility, Bed Availability, Facility or Agency Choices, IV Antibiotics, Precertification, Other: See Comment (CoPAT) [place] of Choice Given: Yes Level of Care Discussed: [facility] Facility Financial Disclosure Provided: Yes Provider List: [facility] Facility Provider list within the patient's requested geographic area shared with the patient/family: Yes of zip code: [address] Quality and resource use metrics shared with [...] DATE: November 01, 2024 TIME: 12:42 PM [facility] 11-01-2024 Note HNO ID: [id number] Author: HAILE ALFARO JR, MD Service: Critical Care Author Type: Physician Type: Progress Notes Filed: 11/01/2024 12:05 Note Text: PULM / CRITICAL CARE PROGRESS NOTE SERVICE DATE: November 01, 2024 SERVICE TIME: 11:57 AM Admission Date: 10/24/2024 AGE: [age] year old LOS: 8 days Subjective Cc: infection, possible recurrent cancer Taking with care transition mgr regarding rehab No chest pain Knows that [...] hyperlipidemia Prostate cancer (HCC) 2020 xrt at [facility] [place] Smoker former quit 2021 Spinal stenosis of [...] RLL endobronchial le (more content not included)... [facility] 11-01-2024 Note HNO ID: [id number] Author: SYED QUIROZ MD Service: Hospital Medicine Author Type: Physician Type: Progress Notes Filed: 11/01/2024 15:47 Note Text: DEPARTMENT OF HOSPITAL MEDICINE PROGRESS NOTE SERVICE DATE: 11/01/2024 SERVICE TIME: 11:33 AM Hospital Medicine/Primary Attending: Syed Quiroz,* NIGHT AND WEEKEND COVERAGE: [employer] COVERAGE: Days: [phone], please page attending physician. Nights: [phone], please page [place] [facility] Night coverage pager [phone]. Subjective INTERVAL HPI: Seen and examined, patient [...] cavity mass, pulmonology consulted, underwent bronchoscopy at [facility] on 10/29/2024. Showed right upper [...] fibrillation (HCC) Presen (more content not included)... [facility] 10-31-2024 Note [facility] 10-31-2024 History of Present illness Narrative October 31, 2024 3:[address] Patterson/Jeana patient Order for PET CT in 2-3 weeks signed for today to facilitate treatment with plans for patient to follow up with Dr. Hills in 1-[address] scan completed. Message sent to our scheduling team. Radha García APRN.CNP documented in this encounter [facility] 10-31-2024 Note HNO ID: [id number] Author: FARIDEH VIVEROS RN Service: Care Management [...] DATE: October 31, 2024 TIME: 2:39 PM [facility] 10-31-2024 Note HNO ID: [id number] Author: SYED QUIROZ MD Service: Hospital Medicine Author Type: Physician Type: Progress Notes Filed: 10/31/2024 11:49 Note Text: DEPARTMENT OF HOSPITAL MEDICINE PROGRESS NOTE SERVICE DATE: 10/31/2024 SERVICE TIME: 11:46 AM Hospital Medicine/Primary Attending: Syed Quiroz,* NIGHT AND WEEKEND COVERAGE: [employer] COVERAGE: Days: [phone], please page attending physician. Nights: [phone], please page [place] [facility] Night coverage pager [phone]. Subjective INTERVAL HPI: Seen and examined, patient [...] and chemotherapy w (more content not included)... [facility] 10-31-2024 Note HNO ID: [id number] Author: HAILE ALFARO JR, MD Service: Critical [...] hyperlipidemia Prostate cancer (HCC) 2020 xrt at [facility] [place] Smoker former quit 2021 Spinal stenosis of [...] Intake/Output Summary (Last 24 hours) at 10/31/2024 0968 Last data filed at 10/31/2024 0568 Gross per 24 hour Intake 656.2 ml [...] in RUL tr (more content not included)... [facility] 10-30-2024 Note HNO ID: [id number] Author: SYED QUIROZ MD Service: Hospital Medicine Author Type: Physician Type: Progress Notes Filed: 10/30/2024 13:29 Note Text: DEPARTMENT OF HOSPITAL MEDICINE PROGRESS NOTE SERVICE DATE: 10/30/2024 SERVICE TIME: 1:27 PM Hospital Medicine/Primary Attending: Syed Quiroz,* NIGHT AND WEEKEND COVERAGE: [employer] COVERAGE: Days: [phone], please page attending physician. Nights: [phone], please page [place] [facility] Night coverage pager [phone]. Subjective INTERVAL HPI: Seen and examined, patient [...] tricuspid regurgitation. Canc (more content not included)... [facility] 10-30-2024 Note HNO ID: [id number] Author: HAILE ALFARO JR, MD Service: Critical [...] hyperlipidemia Prostate cancer (HCC) 2020 xrt at [facility] [place] Smoker former quit 2021 Spinal stenosis of [...] -- MG -- 2.2 ABG: Invalid input(s): [id number] Assessment/Plan ICU Checklist -------- A= Assess, Prevent, Manage Pain C= Choice of Sedation and Analgesia B= Both Spontaneous Awakening and Breathing Trials D= Delirium: Assess, Prevent and Manage E= Early Mobility/Excercise ICU Mobility: F= Family Engagement and Empowerment ICU Disposition: Prevention: VTE Prophylaxis: Bronchoscopy Rapid On-Site Evalua (more content not included)... [facility] 10-29-2024 Note HNO ID: [id number] Author: SYED QUIROZ MD Service: Hospital Medicine Author Type: Physician Type: Progress Notes Filed: 10/29/2024 15:06 Note Text: DEPARTMENT OF HOSPITAL MEDICINE PROGRESS NOTE SERVICE DATE: 10/29/2024 SERVICE TIME: 3:05 PM Hospital Medicine/Primary Attending: Syed Quiroz,* NIGHT AND WEEKEND COVERAGE: [employer] COVERAGE: Days: [phone], please page attending physician. Nights: [phone], please page [place] [facility] Night coverage pager [phone]. Subjective INTERVAL HPI: Seen and examined, patient [...] consulted, plan for bronchoscopy and biopsy at [facility]. Patient was also evaluated by cardiology for SVT. Metoprolol dose was increased to 25 mg twice daily. Patient was continued on IV vancomycin and Zosyn. Evaluated by pulmonary and ID. 10/25/2024 overnight patient developed hypotension, 500 cc of normal saline bolus given. (more content not included)... [facility] 10-29-2024 Note [facility] 10-29-2024 Note [facility] 10-29-2024 Note HNO ID: [id number] Author: MARYCARMEN CHRISTOPHER, GABI Service: Nursing Author Type: Registered Nurse Type: Nursing Progress Note Filed: 10/29/2024 09:26 Note Text: Other: Called [facility] for report , as per nurse report was already called this am . [facility] 10-29-2024 Note HNO ID: [id number] Author: GRACIELA SIFUENTES RN Service: Care Management Author Type: Registered Nurse Type: Care Mgt Progress Note Filed: 10/29/2024 09:04 Note Text: CARE MANAGEMENT PROGRESS NOTE SERVICE DATE: 10/29/2024 SERVICE TIME: 9:02 AM LOS: 5 days Needs Prior to Discharge: To Be Determined EMR reviewed. Patient scheduled to go on [facility] to [facility] today for Bronch. Transportation scheduled for 9:15-9:30 AM chart picker. Cavitary lesion RUL, infection vs malignancy. Hx Lung Cancer RLL s/p Lobectomy 10/2023. On IV ATB. On RA. SVT, Paroxysmal A Fib. Now SR. Pulmonology and ID following. Cardiology signed off. SIGNATURE: Graciela Sifuentes RN PATIENT NAME: Stevie Sanchez DATE: October 29, 2024 TIME: 9:02 AM [facility] 10-28-2024 Note HNO ID: [id number] Author: SYED QUIROZ MD Service: Hospital Medicine Author Type: Physician Type: Progress Notes Filed: 10/28/2024 13:20 Note Text: DEPARTMENT OF HOSPITAL MEDICINE PROGRESS NOTE SERVICE DATE: 10/28/2024 SERVICE TIME: 1:13 PM Hospital Medicine/Primary Attending: Syed Quiroz,* NIGHT AND WEEKEND COVERAGE: [employer] COVERAGE: Days: [phone], please page attending physician. Nights: [phone], please page [place] [facility] Night coverage pager [phone]. Subjective INTERVAL HPI: Seen and examined, patient was resting. Patient very hard of hearing. Communicated via writing on board. When asked if something bothering him he states everything, complains of hurting all over. No specific complaints, complain of cough. Inquiring about what time he will be transferred tomorrow so he can update his family. Appeared frustrated about going to [facility] and then had to come back. Current [...] consulted, plan for bronchoscopy and biopsy at [facility]. Patient was also evaluated by [...] to NSR after (more content not included)... [facility] 10-27-2024 Note HNO ID: [id number] Author: SYED QUIROZ MD Service: Hospital Medicine Author Type: Physician Type: Progress Notes Filed: 10/27/2024 12:58 Note Text: DEPARTMENT OF HOSPITAL MEDICINE PROGRESS NOTE SERVICE DATE: 10/27/2024 SERVICE TIME: 12:56 PM Hospital Medicine/Primary Attending: Syed Quiroz,* NIGHT AND WEEKEND COVERAGE: [employer] COVERAGE: Days: [phone], please page attending physician. Nights: [phone], please page [place] [facility] Night coverage pager [phone]. Subjective INTERVAL HPI: Seen and examined, patient [...] consulted, plan for bronchoscopy and biopsy at [facility]. Patient was also evaluated by cardiology for SVT. Metoprolol dose was increased to 25 mg twice daily. Patient was continued on IV vancomycin and Zosyn. Evaluated by pulmonary and ID. 10/25/2024 overnight patient developed hypotension, 500 cc of normal saline bolus given. Assessment AND Plan Paroxysmal atrial fibrillation (HCC) Present on Admi (more content not included)... [facility] 10-26-2024 Note HNO ID: [id number] Author: SYED QUIROZ MD Service: Hospital Medicine Author Type: Physician Type: Progress Notes Filed: 10/26/2024 11:57 Note Text: DEPARTMENT OF HOSPITAL MEDICINE PROGRESS NOTE SERVICE DATE: 10/26/2024 SERVICE TIME: 11:44 AM Hospital Medicine/Primary Attending: Syed Quiroz,* NIGHT AND WEEKEND COVERAGE: [employer] COVERAGE: Days: [phone], please page attending physician. Nights: [phone], please page [place] [facility] Night coverage pager [phone]. Subjective INTERVAL HPI: Seen and examined, patient [...] and Airways Line Duration Peripheral 10/25/24 1146 [facility] Short Right Forearm 22 Gauge <1 day [...] consulted, plan for bronchoscopy and biopsy at [facility]. Patient was also evaluated by cardiology for SVT. Metoprolol dose was increased to 25 mg twice daily. Patient was continued on IV vancomycin and Zosyn. Evaluated by pulmonary and ID. 10/25/2024 overnight patient developed hypotension, 500 cc of normal saline bolus given. Assessment AND Plan Paroxysmal atrial fibrillation (HCC) Pr (more content not included)... [facility] 10-25-2024 Note [facility] 10-25-2024 Note [facility] 10-25-2024 History of Present illness Narrative POPULATION HEALTH NAVIGATION OUTREACH Action/FYI Pt needs annual wellness visit , follow up 01/24/25 No HCCs Left voicemail for patient, Sent [employer] message to the pt Reason for Outreach Care Gap/HCC or Scheduling Wellness Visits Care Gaps due: Medicare Annual Wellness Visit Follow-up Appointment Patient Contacted: Unable or unnecessary to reach patient: Left message [employer] message sent Navigation Signature: Yunior Fan October 25, 2024 1:24 PM documented in this encounter [facility] 10-25-2024 Note HNO ID: [id number] Author: FARIDEH VIVEROS RN Service: Care Management [...] Relation: Son Admission Status: Inpatient Insurance Provider: [facility] MEDICARE PPO Discharge Planning requested by: Per Department Practice Potential Transition Plans Home, Home Care, [facility] Facility/Intermediate Care Facility, To Be Determined Advance Directives Current Advance Directive: Health Care Power of Financial Brokers In Chart: Yes Up To Date and [...] None Discharge Planning Patient Goal(s): General wellness [place] Explained: [place] Given: No Reason Not Given: No placements necessary Are you interested in bedside delivery of your medications? No, [facility] [place] Discharge Planning Participant(s): Patient, Family Patient/Family Comments: Caregiver Assessment: Caregiver is ready, willing and able to meet the patient's needs as recommended by the inter-professional team: Other: See Comment (DC needs TBD.) Transport at Discharge: Transportation Arrangements: Car Needs Prior to Discharge: Needs Prior to Discharge: Other: See Comment, Procedure, To Be Determined (medical clearance) Procedure Needed: Bronch at [facility] Post-Acute Discharge Plan: EMR reviewed. PAtient admitted with A-flutter. Going to [facility] on Monday via [facility] for procedure then will return. RNCM spoke to patient and his sister's to complete assessment. 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 Family to transport upon DC. CM assigned will continue to follow for DC planning needs. SIGNATURE: Farideh Viveros RN PATIENT NAME: Stevie Sanchez DATE: October 25, 2024 TIME: 11:54 AM [facility] 10-25-2024 Note HNO ID: [id number] Author: HAILE ROBERTSON MD Service: Hospital Medicine [...] Stage 1 mild COPD by GOLD classification ([facility]) 11/17/2023 Priority: B Lung abscess (HCC) 11/17/2023 Priority: B Sepsis (HCC) 10/25/2024 Cavitary lesion of lung 10/24/2024 Anemia 10/24/2024 Cancer of lower lobe of right lung (HCC) 11/15/2023 Prostate cancer (HCC) 09/11/2023 Infrarenal abdominal aortic aneurysm (AAA) without rupture 02/08/2021 Mixed hyperlipidemia 06/23/2010 Leg blood clot prevention: lovenox starting tonight unless procedure planned SIGNATURE: Haile Robertson MD DATE: 10/25/2024 TIME: 8:27 AM [facility] 10-24-2024 Note [facility] 10-24-2024 History of Present illness Narrative SUBJECTIVE: [...] Praful Su MD documented in this encounter [facility] 10-22-2024 Telephone encounter Note Provider will not be in office on 01/16 and the appointment the patient had this day has been rescheduled. The appointment has been rescheduled for 03/13/2025, this is his soonest available appointment and it has been added to the wait-list. I left a voicemail to notify patient and will send a MyChart message. [facility] 10-22-2024 Miscellaneous Notes Provider will not be in office on 01/16 and the appointment the patient had this day has been rescheduled. The appointment has been rescheduled for 03/13/2025, this is his soonest available appointment and it has been added to the wait-list. I left a voicemail to notify patient and will send a MyChart message. documented in this encounter [facility] 09-20-2024 Note [facility] 09-20-2024 History of Present illness Narrative Images [...] COPD Education: Action Plan Disposition Based on general manager oracle data cloud, the following disposition is advised: No action needed Dacrie Whitten RN September 20, 2024 4:27 PM documented in this encounter [facility] 09-13-2024 Note [facility] 09-13-2024 History of Present illness Narrative Images [...] to Go for Care Disposition Based on general manager oracle data cloud, the following disposition is advised: No action needed Darcie Whitten RN September 13, 2024 4:28 PM documented in this encounter [facility] 09-11-2024 Note [facility] 09-11-2024 History of Present illness Narrative Images [...] prostate adenocarcinoma, initial PSA 7.52 ng/mL, biopsy [place] score 3 + 4 = 7 (grade [...] hyperlipidemia Prostate cancer (HCC) 2020 xrt at [facility] [place] Smoker former quit 2021 Spinal stenosis of [...] Kevin Patterson MD documented in this encounter [facility] 09-10-2024 Note [facility] 09-10-2024 History of Present illness Narrative Patient is identified through a medication adherence outreach initiative based on pharmacy claims data from: [employer] Medication Adherence Category: Hypertension First Review Attribution [...] concerns to be addressed Veronika Tucker CPhT [facility] Team documented in this encounter [facility] 09-06-2024 Note [facility] 09-06-2024 History of Present illness Narrative CDM [...] has the electric, gas, oil, or water [employer] threatened to shut off services in your [...] - Initial enrollment outreach Disposition Based on general manager oracle data cloud, the following disposition is advised: No action needed Darcie Whitten RN September 06, 2024 12:06 PM documented in this encounter [facility] 09-03-2024 Telephone encounter Note Patient calls [...] with VKA drugs, such as warfarin, the [employer] 2012 Guideline recommends [...] Chest 2012, 141:7S-47S Vicki RA, et al. [facility] 2017, 70: 252-289 Cholesterol, Total (mg/dL) Date Value 05/07/2024 154 02/08/2021 197 HDL Cholesterol (mg/dL) Date Value 05/07/2024 61 02/08/2021 47 LDL Cholesterol, Calculated (mg/dL) Date Value 05/07/2024 67 02/08/2021 99 Triglyceride (mg/dL) Date Value 05/07/2024 129 02/08/2021 253 No results found for: [facility] Pharmacy has been captured: Yes. Patient prefers: [employer]. Darshana Dunn LPN [facility] 09-03-2024 Miscellaneous Notes Patient calls for [...] with VKA drugs, such as warfarin, the [place] [employer] 2012 Guideline recommends [...] Chest 2012, 141:7S-47S Vicki MEDINA et al. [facility] 2017, 70: 252-289 Cholesterol, Total (mg/dL) Date [...] advise. Connie Champion documented in this encounter [facility] 09-03-2024 Telephone encounter Note Patient phones requesting refills as follows: Requested Prescriptions Pending Prescriptions Disp Refills lisinopril-hydroCHLOROthiazide (ZESTORETIC) 20-12.5 mg per tablet 90 tablet 3 Sig: Take 1 tablet by mouth once daily. atorvastatin (LIPITOR) 20 mg tablet 90 tablet 3 Sig: Take 1 tablet by mouth once daily. Please review and advise. Connie Champion [facility] 08-23-2024 Note [facility] 08-23-2024 History of Present illness Narrative Images from the original note were not included. Radiation Therapy - Nursing Note (Follow-up) PATIENT NAME: Stevie Sanchez PATIENT August 23, 2024 [facility] FACILITY/LOCATION: [place] Reason for visit: Follow up. Subjective Data Additional Data Do you want to see a Supervisor Model Making? No Difficulty performing or completing routine daily [...] with: 1. Enlarging/hypermetabolic/cavitary RUL nodule c/w NSCLC, [id number], Stage IA3, s/p SBRT 02/01/24 [3400 cGy/1 [...] with: 1. Enlarging/hypermetabolic/cavitary RUL nodule c/w NSCLC, [id number], Stage IA3, s/p SBRT 02/01/24 [3400 cGy/1 [...] Sudish Murthy, MD documented in this encounter [facility] 08-23-2024 Note [facility] 08-20-2024 Note [facility] 08-20-2024 History of Present illness Narrative Images from the original note were not included. Heart, Vascular & Thoracic [place] Department of Thoracic Surgery VIRTUAL VIDEO VISIT [...] visit. Either the patient or their legal insurance sales representative has been informed of the risks and benefits of -- and alternatives to -- treatment through a remote evaluation and consents to proceed with the evaluation remotely. PAST MEDICAL HISTORY Diagnosis Date Abdominal aortic aneurysm without rupture Elevated PSA Hearing loss HTN (hypertension) Lumbosacral neuritis Malignant neoplasm of prostate (HCC) Other and unspecified hyperlipidemia Prostate cancer (HCC) 2020 xrt at [facility] [place] Smoker former quit 2021 Spinal stenosis of [...] and care of this patient. Romina Kahn APRN.WELL SURVEYING ENGINEER August 20, 2024 Part of this note was copied from previous note, all content has been individually reviewed, updated as necessary, and thoroughly reviewed. [facility] - Heart, Vascular and Thoracic [place] OUTPATIENT THORACIC SURGERY CLINIC NOTE PT NAME: Stevie Sanchez [facility] NO: [id number] THORACIC SURGEON: Paula Lizama M.D. DATE OF [...] the inked margin) were reviewed at the [facility] thoracic pathology consensus conference on 11/23/23. [...] w VS), spinal stenosis and Prostate cancer [id number] adenocarcinoma prostate s/p TRUS random biopsy 09/24/20, [...] in 3 months to be done in [place] and then a virtual visit the next [...] weeks with virtual visit following CXR at [place] - oncology management with Dr Patterson, f/u 09/11/24 - radiation oncology management with Dr Goss, f/u 08/23/24 Romina Kahn APRN.WELL SURVEYING ENGINEER documented in this encounter [facility] 08-19-2024 History of Present illness Narrative [...] PATIENT PRESENTS WITH AN IMPLANTABLE OR ATTACHED CONTINUOUS PILLOWCASE CUTTER: No RADIOLOGY DEPARTMENT: General X-ray: Exam(s) Completed: Chest X-Ray PERIPHERAL IV DATA: Not applicable SIGNED BY: RT Patricia(R) August 19, 2024 11:05 AM documented in this encounter [facility] 08-19-2024 Note HNO ID: [id number] Author: FADI MELGAR RT(R) Service: Radiology Author [...] PATIENT PRESENTS WITH AN IMPLANTABLE OR ATTACHED CONTINUOUS PILLOWCASE CUTTER: No RADIOLOGY DEPARTMENT: General X-ray: Exam(s) Completed: Chest X-Ray PERIPHERAL IV DATA: Not applicable SIGNED BY: RT Patricia(R) August 19, 2024 11:05 AM [facility] 07-12-2024 History of Present illness Narrative [...] 2024 11:20 AM documented in this encounter [facility] 07-12-2024 Note [facility] 2024 Note [facility] 2024 History of Present illness Narrative Images from the original note were not included. Part of this note was copied from previous note, all content has been individually reviewed, updated as necessary, and thoroughly reviewed. [facility] - Heart, Vascular and Thoracic [place] OUTPATIENT THORACIC SURGERY CLINIC NOTE PT NAME: Stevie Laura [facility] NO: [id number] THORACIC SURGEON: Paula Lizama M.D. DATE OF [...] the inked margin) were reviewed at the [facility] thoracic pathology consensus conference on 11/23/23. [...] w VS), spinal stenosis and Prostate cancer [id number] adenocarcinoma prostate s/p TRUS random biopsy 09/24/20, [...] visit in 6 weeks after CXR in [place]. Will arrange for follow up with his [...] weeks with virtual visit following CXR at [place] - oncology management with Dr Patterson - radiation oncology management with Dr Ana Paula Kahn APRN.WELL SURVEYING ENGINEER documented in this encounter [facility] 2024 History of Present illness Narrative [...] PATIENT PRESENTS WITH AN IMPLANTABLE OR ATTACHED CONTINUOUS PILLOWCASE CUTTER: No RADIOLOGY DEPARTMENT: General X-ray: Exam(s) Completed: Chest X-Ray PERIPHERAL IV DATA: Not applicable SIGNED BY: RT Roseanna(R) 2024 9:08 AM documented in this encounter [facility] 2024 Note [facility] 07-05-2024 Note [facility] 07-05-2024 History of Present illness Narrative Transitional [...] 2024 10:47 AM documented in this encounter [facility] 07-01-2024 History of Present illness Narrative [...] PATIENT PRESENTS WITH AN IMPLANTABLE OR ATTACHED CONTINUOUS PILLOWCASE CUTTER: No RADIOLOGY DEPARTMENT: General X-ray: Exam(s) Completed: Chest X-Ray PERIPHERAL IV DATA: Not applicable SIGNED BY: RT Roseanna(R) July 01, 2024 12:04 PM documented in this encounter [facility] 07-01-2024 Note [facility] 07-01-2024 Instructions Yuniel Baltazar APRN.WELL SURVEYING ENGINEER - 07/01/2024 11:39 AM EDT After surgery [...] 4 weeks after surgery. Do not perform children's tutor nursery such as laundry and vacuuming. Do not [...] chest area. 1 documented in this encounter [facility] 07-01-2024 History of Present illness Narrative Images from the original note were not included. [facility] - Heart, Vascular and Thoracic [place] OUTPATIENT THORACIC SURGERY CLINIC NOTE PT NAME: Stevie [facility] NO: [id number] THORACIC SURGEON: Paula Lizama M.D. DATE OF [...] the inked margin) were reviewed at the [facility] thoracic pathology consensus conference on 11/23/23. [...] w VS), spinal stenosis and Prostate cancer [id number] adenocaarcinoma prostate s/p TRUS random biopsy 09/24/20, [...] Yuniel Baltazar APRN.ELVIRA documented in this encounter [facility] 07-01-2024 Note [facility] 07-01-2024 History of Present illness Narrative Radiology [...] PATIENT PRESENTS WITH AN IMPLANTABLE OR ATTACHED CONTINUOUS PILLOWCASE CUTTER: No RADIOLOGY DEPARTMENT: General X-ray: Exam(s) Completed: Chest X-Ray PERIPHERAL IV DATA: Not applicable SIGNED BY: RT Roseanna(R) July 01, 2024 10:19 AM documented in this encounter [facility] 07-01-2024 Note [facility] 06-24-2024 Note [facility] 06-24-2024 History of Present illness Narrative POPULATION HEALTH NAVIGATION OUTREACH Action/I June 24, 2024 4:51 PM [email or web address] Message ~ TCM Navigation Team Update / Actionable Items Readmission risk is LOW =9 Please schedule PCP Hospital Follow Up within 30 days Patient discharged from [facility] Discharge date: 06/23/24 Admitted for: [...] TCM Home Visit Referral Source of Stratification: [facility] Hospital Admission Status: Discharged Readmission Risk Score: 9 Patient's zip code: [address] Is zip code within program service area: [...] questions at this time. Patient discharged from [facility] Discharge date: 06/23/24 Admitted for: Hydropneumothorax Readmission Risk: 9 Value-Based Contract: Russ HARKINS Contact: Contact made with patient: Yes Hi, my name is Darcie Whitten RN and I am calling from the [facility] on behalf of your Primary Care [...] I will send your request to a director of primary care who will contact and assist you with [...] 2024 4:35 PM documented in this encounter [facility] 06-24-2024 Note [facility] 06-23-2024 Note [facility] 06-23-2024 Note [facility] 06-22-2024 Note [facility] 06-21-2024 Note [facility] 06-20-2024 Note [facility] 06-20-2024 Note [facility] 06-20-2024 Note [facility] 06-19-2024 Note [facility] 06-19-2024 Note [facility] 06-18-2024 Instructions Malia Egan DO - 06/18/2024 [...] repair to be associated with 4% mortality. [facility] experience has been 2%. Endovascular AAA repair has 2% mortality nationwide in medicare population and 1% at [facility]. This shows that either open AAA repair [...] scans or ultrasound. documented in this encounter [facility] 06-18-2024 Note [facility] 06-18-2024 History of Present illness Narrative Images from the original note were not included. Heart , Vascular and Thoracic [place] DEPARTMENT OF VASCULAR SURGERY OUTPATIENT VISIT DATE [...] hyperlipidemia Prostate cancer (HCC) 2020 xrt at [facility] [place] Smoker former quit 2021 Spinal stenosis of [...] with more than 50% of the total gqvp-ce-cfth time of the visit in counseling / coordination of care. Malia Egan DO documented in this encounter [facility] 06-13-2024 Note [facility] 06-13-2024 History of Present illness Narrative Images [...] in agreement. Thad Garrett MD, Staff, Respiratory [place] [facility] CHIEF COMPLAINT: Abnormal Imaging HISTORY OF PRESENT ILLNESS: Stevie Sanchez is a 72 year old male with PMHx of hypertension, hyperlipidemia, Spinal Stenosis, AAA measuring, prostate cancer and former smoker Patient is here for a follow up. Underwent routine surveillance imaging with CT chest on 05/09/2023 which showed an enlarging right basilar pneumothorax following that patient was admitted to [facility] final read suggestive of large cystic [...] No significant exposure Silica: No significant exposure [place]: Present Mold: Present Hot tub: No significant [...] COVID-19 original vaccine, age 12+ yr, monovalent ([place] - PURPLE TOP) 05/26/2020 06/17/2020 02/04/2021 COVID-19 vaccine, age 12+ yr (MODERNA) 02/06/2024 COVID-19 vaccine, age 12+ yr (RemindBIODer Grüne Punkt COMIRNATY) 02/14/2023 COVID-19 vaccine, age 12+ yr, bivalent ([place]) 12/28/2021 influenza (HD-IIV3) vaccine, age 65+ yr, [...] on 06/13/2024 Thad Garrett MD, Staff, Respiratory [place] [facility] documented in this encounter [facility] 06-09-2024 Note [facility] 06-09-2024 History of Present illness Narrative I [...] with: 1. Enlarging/hypermetabolic/cavitary RUL nodule c/w NSCLC, [id number], Stage IA3, s/p SBRT 02/01/24 [3400 cGy/1 [...] Barriers To This Education Session: No barriers Database Designer Present: Not Applicable The Following Physical Limitations [...] of THORACIC CLINIC. documented in this encounter [facility] 06-07-2024 History of Present illness Narrative [...] 2020: Prostate cancer (HCC) Comment: xrt at [facility] [place] No date: Smoker Comment: former quit 2021 [...] COVID-19 vaccine, age 12+ yr, 2022- season (PFIZER-BIONTMy Rental Units) 12/28/2021 Imm Admin: COVID-19 vaccine, age 12+ yr, bivalent (RemindBIONTMy Rental Units) Only the first 3 history entries have [...] hyperlipidemia Prostate cancer (HCC) 2020 xrt at [facility] [place] Smoker former quit 2021 Spinal stenosis of [...] 05/17/24 2:22 PM Impression IMPRESSION: See result. 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: IMMANUEL Transcribe Date/Time: May 17 2024 3:17P [...] No pneumothorax. Cardiomediastinal silhouette: Stable cardiac silhouette. 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: PSCHerbert Transcribe Date/Time: May 12 2024 9:59A [...] right upper lobe spiculated nodule with cavitations. 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: PSCB Transcribe Date/Time: May 11 2024 3:35P [...] and consent discussed: yes. Patient / Responsible Democrat agrees to proceed: yes Patient / Surrogate [...] AM Pager/Contact #: documented in this encounter [facility] 06-07-2024 Note [facility] 06-07-2024 Note [facility] 06-07-2024 History of Present illness Narrative Radiology [...] PATIENT PRESENTS WITH AN IMPLANTABLE OR ATTACHED CONTINUOUS PILLOWCASE CUTTER: No RADIOLOGY DEPARTMENT: General X-ray: Exam(s) Completed: Chest X-Ray PERIPHERAL IV DATA: Not applicable SIGNED BY: RT ALEXANDRA(R) June 07, 2024 9:55 AM documented in this encounter [facility] 06-07-2024 Note [facility] 06-07-2024 Note [facility] 05-25-2024 Note [facility] 05-25-2024 History of Present illness Narrative Confirmed [...] RN Thoracic NPM documented in this encounter [facility] 05-23-2024 Telephone encounter Note Patient calls [...] with VKA drugs, such as warfarin, the [place] [employer] 2012 Guideline recommends [...] 129 02/08/2021 253 No results found for: [facility] Pharmacy has been captured: Yes. Patient prefers: [employer]. Yolanda Pastor LPN [facility] 05-23-2024 Miscellaneous Notes Patient calls for [...] with VKA drugs, such as warfarin, the [place] [employer] 2012 Guideline recommends [...] Chest 2012, 141:[id number]-[id number] Vicki RA, et al. [facility] 2017, 70: [phone] Cholesterol, Total (mg/dL) Date [...] advise. Oc Dowling documented in this encounter [facility] 05-23-2024 Telephone encounter Note Patient phones requesting refills as follows: Requested Prescriptions Pending Prescriptions Disp Refills amLODIPine (NORVASC) 5 mg tablet 90 tablet 3 Sig: Take 1 tablet by mouth once daily. Please review and advise. Oc Dowling [facility] 05-22-2024 Telephone encounter Note Called pt and he states that vascular is going to be doing a surgery in his chest. He is waiting for the call now to schedule. He declined to schedule apt at this time with this office. He will call once surgery is completed. [facility] 05-22-2024 Miscellaneous Notes Called pt and [...] Thank you, Debbie documented in this encounter [facility] 05-22-2024 Telephone encounter Note Patient called to cancel his appointment today 05/[address] Patterson because he is having another lung surgery in the next couple of weeks so there is no point in meeting with Dr. Patterson because no one has any answers yet. He will rescheduled next month. Thank you, Debbie [facility] 05-20-2024 History of Present illness Narrative Images from the original note were not included. I have communicated my name and active licensure. The patient's identity and physical location were verified at the time of this visit. Either the patient or their legal insurance sales representative has been informed of the risks and benefits of -- and alternatives to -- treatment through a remote evaluation and consents to proceed with the evaluation remotely. Radiation Oncology - Follow Up Note PATIENT NAME: Stevie Sanchez PATIENT DIAGNOSIS: 73 year old man with: Enlarging/hypermetabolic/cavitary RUL nodule c/w NSCLC, [id number], Stage IA3, s/p SBRT 02/01/24 [3400 cGy/1 [...] with: 1. Enlarging/hypermetabolic/cavitary RUL nodule c/w NSCLC, [id number], Stage IA3, s/p SBRT 02/01/24 [3400 cGy/1 [...] Daniel Raymond, MD documented in this encounter [facility] 05-20-2024 Note [facility] 05-17-2024 History of Present illness Narrative Images from the original note were not included. Part of this note was copied from previous note, all content has been individually reviewed, updated as necessary, and thoroughly reviewed. [facility] - OUTPATIENT THORACIC SURGERY CLINIC NOTE PT NAME: Stevie Sanchez [facility] NO: [id number] THORACIC SURGEON: Paula Lizama M.D. DATE OF [...] the inked margin) were reviewed at the [facility] thoracic pathology consensus conference on 11/23/23. [...] return for TCI with Dr Dl Kahn APRN.WELL SURVEYING ENGINEER documented in this encounter [facility] 05-17-2024 Note [facility] 05-17-2024 History of Present illness Narrative Radiology [...] PATIENT PRESENTS WITH AN IMPLANTABLE OR ATTACHED CONTINUOUS PILLOWCASE CUTTER: No RADIOLOGY DEPARTMENT: General X-ray: Exam(s) Completed: Chest X-Ray PERIPHERAL IV DATA: Not applicable SIGNED BY: RT Alexandra(R) May 17, 2024 2:22 PM documented in this encounter [facility] 05-17-2024 Note [facility] 05-13-2024 Note [facility] 05-13-2024 History of Present illness Narrative Transition [...] yet. Patient appreciates your assistance, and is [place] on the phone. [facility] Home Visit Referral Source of Stratification: [facility] Hospital Admission Status: Discharged Readmission Risk Score: 11 Patient's zip code: [address] Is zip code within program service area: Y Patient meets program referral criteria: No Patient does not qualify for High Risk TCM Home Visit program due to: Readmission Risk Score does not meet criteria Disposition: Patient does not qualify for [facility], will provide TCM outreach follow-up for 30-days [...] and in the home Patient discharged from [facility] Discharge date: 05/12/24 Admitted for: Pneumothorax Readmission Risk: 11 Value-Based Contract: Russ HARKINS Contact: Contact made with patient: Yes Hi, my name is Darcie Whitten RN and I am calling from the [facility] on behalf of your Primary Care [...] I will send your request to a director of primary care who will contact and assist you with [...] 2024 10:33 AM documented in this encounter [facility] 05-12-2024 Note [facility] 05-11-2024 Note [facility] 05-11-2024 Note HNO ID: [id number] Author: NOTE, INTERFACE, ? Service: ? Author Type: ? Type: Progress Notes Filed: 05/11/2024 02:30 Note Text: Epic Scheduled Downtime: 05/11/2024 1:00:00 AM to 05/11/2024 2:11:00 AM [facility] 05-09-2024 Note [facility] 05-09-2024 History of Present illness Narrative Heart, Vascular & Thoracic [place] Department of Thoracic Surgery VIRTUAL VIDEO VISIT [...] visit. Either the patient or their legal insurance sales representative has been informed of the risks and benefits of -- and alternatives to -- treatment through a remote evaluation and consents to proceed with the evaluation remotely. PAST MEDICAL HISTORY Diagnosis Date Abdominal aortic aneurysm (HCC) without rupture Elevated PSA Hearing loss HTN (hypertension) Lumbosacral neuritis Malignant neoplasm of prostate (HCC) Other and unspecified hyperlipidemia Prostate cancer (HCC) 2020 xrt at [facility] [place] Smoker former quit 2021 Spinal stenosis of [...] and care of this patient. Romina Kahn APRN.WELL SURVEYING ENGINEER May 09, 2024 Part of this note was copied from previous note, all content has been individually reviewed, updated as necessary, and thoroughly reviewed. [facility] - OUTPATIENT THORACIC SURGERY CLINIC NOTE PT NAME: Stevie Sanchez [facility] NO: [id number] THORACIC SURGEON: Paula Lizama M.D. DATE OF [...] the inked margin) were reviewed at the [facility] thoracic pathology consensus conference on 11/23/23. [...] management with Dr Garrett 06/13/24 Romina Kahn APRN.WELL SURVEYING ENGINEER Addendum 05/09/2024 Dr Lizama responded to my query after evaluation of the CT scan. He wishes for Mr Sanchez to come in to be admitted to [facility] for placement of a right chest pigtail catheter. Sister Elisabeth called and notified per patient's instructions. Admission team notified as well. Fay Araya DNP notified of plan. Romina Kahn APRN.WELL SURVEYING ENGINEER documented in this encounter [facility] 05-08-2024 History of Present illness Narrative [...] PATIENT PRESENTS WITH AN IMPLANTABLE OR ATTACHED CONTINUOUS PILLOWCASE CUTTER: No RADIOLOGY DEPARTMENT: CT; Exam(s) Completed: Chest PERIPHERAL IV DATA: Site assessment: Clean,Dry and Intact, Site disposition Discontinued SIGNED BY: TECHNOLOGIST Bettye May 08, 2024 2:12 PM documented in this encounter [facility] 05-08-2024 Note HNO ID: [id number] Author: DEN GARCIA TECHNOLOGIST Service: Radiology Author [...] PATIENT PRESENTS WITH AN IMPLANTABLE OR ATTACHED CONTINUOUS PILLOWCASE CUTTER: No RADIOLOGY DEPARTMENT: CT; Exam(s) Completed: Chest PERIPHERAL IV DATA: Site assessment: Clean,Dry and Intact, Site disposition Discontinued SIGNED BY: TECHNOLOGIST Bettye May 08, 2024 2:12 PM [facility] 05-08-2024 Nurse Note Radiology Service Progress [...] DATE: May 08, 2024 TIME: 2:07 PM [facility] 05-08-2024 Nurse Note Radiology Service Progress [...] TIME: 2:07 PM documented in this encounter [facility] 05-08-2024 Note [facility] 05-08-2024 History of Present illness Narrative PULM FUNCTION: Provider: Romina Kahn APRN.WELL SURVEYING ENGINEER Assisting Tech: Srinivasan Deng LABORATORY GENETICIST Spirometry w/BD: 1 DLCO: 1 documented in this encounter [facility] 05-07-2024 Miscellaneous Notes Patient returned call and message was relayed. Patient verbalized understanding of the message. No questions or further action at this time Left message for patient to give office a call back. Darshana Dunn LPN Notify patient that stool test for blood is negative. documented in this encounter [facility] 05-07-2024 Telephone encounter Note Patient returned call and message was relayed. Patient verbalized understanding of the message. No questions or further action at this time [facility] 05-07-2024 Telephone encounter Note Left message for patient to give office a call back. Darshana Dunn LPN [facility] 05-07-2024 Telephone encounter Note Notify patient that stool test for blood is negative. [facility] 04-25-2024 Note [facility] 04-25-2024 History of Present illness Narrative SUBJECTIVE: [...] Praful Su MD documented in this encounter [facility] 03-05-2024 Telephone encounter Note Patient received message to call to schedule a phone call on 05/[address] Goss, but he is already scheduled. [facility] 03-05-2024 Miscellaneous Notes Patient received message to call to schedule a phone call on 05/[address] Goss, but he is already scheduled. LVM for return call to schedule; Please schedule telephone visit (follow-up) for the week of 05/20/[address] Goss documented in this encounter [facility] 03-05-2024 Telephone encounter Note Opened in error [facility] 03-05-2024 Miscellaneous Notes Opened in error documented in this encounter [facility] 03-05-2024 Telephone encounter Note LVM for return call to schedule; Please schedule telephone visit (follow-up) for the week of 05/20/[address] Goss [facility] 02-29-2024 Telephone encounter Note LVM for return call to schedule: Please arrange for telephone follow-up in the week of 05/20/24. [facility] 02-29-2024 Miscellaneous Notes LVM for return call to schedule: Please arrange for telephone follow-up in the week of 05/20/24. documented in this encounter [facility] 02-29-2024 Note [facility] 02-29-2024 History of Present illness Narrative POPULATION [...] 2024 11:45 AM documented in this encounter [facility] 02-29-2024 History of Present illness Narrative Images from the original note were not included. I have communicated my name and active licensure. The patient's identity and physical location were verified at the time of this visit. Either the patient or their legal insurance sales representative has been informed of the risks and benefits of -- and alternatives to -- treatment through a remote evaluation and consents to proceed with the evaluation remotely. Radiation Oncology - Follow Up Note PATIENT NAME: Stevie Sanchez PATIENT DIAGNOSIS: 73 year old man with: Enlarging/hypermetabolic/cavitary RUL nodule c/w NSCLC, [id number], Stage IA3, s/p SBRT 02/01/24 [3400 cGy/1 [...] with: 1. Enlarging/hypermetabolic/cavitary RUL nodule c/w NSCLC, [id number], Stage IA3, s/p SBRT 02/01/24 [3400 cGy/1 [...] Daniel Raymond, MD documented in this encounter [facility] 02-29-2024 Note [facility] 02-05-2024 Note [facility] 02-05-2024 History of Present illness Narrative STEVIE SANCHEZ [id number] 02/05/2024 [facility] Department of Radiation Oncology [facility] RADIATION ONCOLOGY: COMPLETION NOTE DATE OF SIMULATION: 01/16/2024 DATES OF TREATMENT: 02/01/2024 TREATMENT MACHINE: [employer] TREATMENT AREA: RUL nodule SBRT DIAGNOSIS: 73 year old man with: 1.Enlarging/hypermetabolic/cavitar y RUL nodule c/w NSCLC, [id number], Stage IA3 2.Hx of SCCa of the [...] Daniel Raymond, MD documented in this encounter [facility] 02-05-2024 Note [facility] 02-02-2024 Note [facility] 02-02-2024 History of Present illness Narrative POPULATION HEALTH NAVIGATION OUTREACH Action/FYI Patient is on (Community Monitoring) List : Patient due for: [facility] - ED Follow up A follow-up appointment is not noted in patient's record. We are forwarding this patient to Network Navigation to schedule a follow-up appointment. ED After Visit Summary (XL Font) (Printed 01/31/2024) Follow-Ups: Call Praful Su MD (Family Medicine); As needed [facility] 01/31/24 Dx: Foreign Body of Right ear 1st Attempt: Left message for patient to call back. Sent YourTeamOnlinet message. Reason for Outreach Community Monitoring/Network Navigator Pools & Phone Line: [facility] Patient Contacted: Unable or unnecessary to [...] Health Navigation: PCP alignment/verification. Router to [facility] [[phone]] Contact made with patient: No, Chart review only. Signature: Tayler Hernandez RN documented in this encounter [facility] 02-02-2024 Note [facility] 02-01-2024 Note [facility] 02-01-2024 History of Present illness Narrative SOCIAL WORK FOLLOW UP NOTE: CANCER CENTER Date of service: January [facility] Vocational Rehabilitation Specialist (SW) Melita Palmer met with Stevie [...] as the agent. Patient/Family/Decision Makers: Elisabeth Menjivar ([facility]) [phone] (M) In this encounter: Patient has completed [...] Yes RINA Jordan documented in this encounter [facility] 02-01-2024 History of Present illness Narrative Radiation Oncology - On Treatment Review (OTR) Note PATIENT NAME: Stevie Sanchez PATIENT DIAGNOSIS: 73 year old man with: Enlarging/hypermetabolic/cavitary RUL nodule c/w NSCLC, [id number], Stage IA3 Hx of SCCa of the [...] Elias Goss MD documented in this encounter [facility] 02-01-2024 Note [facility] 01-19-2024 Telephone encounter Note 1st attempt to reach out. Will try again Monday lvm [facility] 01-19-2024 Miscellaneous Notes 1st attempt to reach out. Will try again Monday lvm Patient needs a 4 week post radiation phone call follow up. His last treatment is on 02-01-24 documented in this encounter [facility] 01-19-2024 Telephone encounter Note Patient needs a 4 week post radiation phone call follow up. His last treatment is on 02-01-24 [facility] 01-16-2024 History of Present illness Narrative STEVIE SANCHEZ [id number] 01/16/2024 [facility] Department of Radiation Oncology [facility] RADIATION ONCOLOGY SIMULATION NOTE DATE OF SIMULATION: 01/16/2024 MACHINE: Tailored [place] CT DIAGNOSIS: Malignant neoplasm of prostate AREA: [...] M.D. 43:04 PM documented in this encounter [facility] 01-16-2024 History of Present illness Narrative STEVIE SANCHEZ [id number] 01/16/2024 [facility] Department of Radiation Oncology Treatment Planning [...] M.D. 1:02 AM documented in this encounter [facility] 01-16-2024 Note [facility] 01-16-2024 Note [facility] 01-11-2024 Nurse Note Radiation Therapy - Nursing Note (Consult) PATIENT NAME: Stevie Sanchez PATIENT January 11, 2024 [facility] FACILITY/LOCATION: [place] Chief Complaint: lung nodule Reason for visit: Consult. Referring physician: Internal provider Dr. Patterson Subjective Data: I do have soreness where the incision is since my lung surgery . I will get SOB with over exertion and cough noted at times Additional Data Do you want to see a Supervisor Model Making? No Are you interested in information about [...] yes 2020 for prostate cancer completed at [facility] PREVIOUS HORMONAL THERAPY: no NURSING [...] A person with a Durable Power of Financial Brokers for Healthcare (DPOA-H) has been appointed - [...] verbalized understanding. SIGNED by: Mya Hill RN [facility] 01-11-2024 Nurse Note Radiation Therapy - Nursing Note (Consult) PATIENT NAME: Stevie Sanchez PATIENT January 11, 2024 [facility] FACILITY/LOCATION: [place] Chief Complaint: lung nodule Reason for visit: Consult. Referring physician: Internal provider Dr. Patterson Subjective Data: I do have soreness where the incision is since my lung surgery . I will get SOB with over exertion and cough noted at times Additional Data Do you want to see a Supervisor Model Making? No Are you interested in information about [...] yes 2020 for prostate cancer completed at [facility] PREVIOUS HORMONAL THERAPY: no NURSING [...] A person with a Durable Power of [employer] for Healthcare (DPOA-H) has been appointed - [...] Mya Hill RN documented in this encounter [facility] 01-11-2024 History of Present illness Narrative Images from the original note were not included. Radiation Oncology - New Patient/Consult Note PATIENT NAME: Stevie Sanchez PATIENT REQUESTING PROVIDER: Kevin Patterson MD DIAGNOSIS: 73 year old man with: Enlarging/hypermetabolic/cavitary RUL nodule c/w NSCLC, [id number], Stage IA3 Hx of SCCa of the [...] hyperlipidemia Prostate cancer (HCC) 2020 xrt at [facility] [place] Smoker former quit 2021 Spinal stenosis of [...] wine per week Drug use: No Residence: [place], [place] Occupation: [employer] COMPLETE REVIEW OF SYSTEMS: GENERAL: Negative for [...] with: 1. Enlarging/hypermetabolic/cavitary RUL nodule c/w NSCLC, [id number], Stage IA3 2. Hx of SCCa of [...] with more than 50% of the total puyh-ua-hplo time of the visit in counseling / coordination of care. Signed by: Elias Goss MD cc: MD Kevin Nicholas MD Daniel Raymond, MD documented in this encounter [facility] 01-11-2024 Note [facility] 01-08-2024 Note [facility] 01-08-2024 History of Present illness Narrative Images from the original note were not included. Part of this note was copied from previous note, all content has been individually reviewed, updated as necessary, and thoroughly reviewed. [facility] - OUTPATIENT THORACIC SURGERY CLINIC NOTE PT NAME: Stevie Sanchez [facility] NO: [id number] THORACIC SURGEON: Paula Lizama M.D. DATE OF [...] the inked margin) were reviewed at the [facility] thoracic pathology consensus conference on 11/23/23. [...] Romina Kahn APRN.CNP documented in this encounter [facility] 01-08-2024 History of Present illness Narrative [...] PATIENT PRESENTS WITH AN IMPLANTABLE OR ATTACHED CONTINUOUS PILLOWCASE CUTTER: No RADIOLOGY DEPARTMENT: General X-ray: Exam(s) Completed: Chest X-Ray PERIPHERAL IV DATA: Not applicable SIGNED BY: RT Roseanna(R) January 08, 2024 1:34 PM documented in this encounter [facility] 01-08-2024 Note [facility] 01-05-2024 Telephone encounter Note Called left message of PSA results. Kirk Matamoros MA [facility] 01-05-2024 Telephone encounter Note ----- Message from Don Lara MD sent at 01/05/2024 2:15 PM EST ----- The lab results all look good. No change in plan. [facility] 01-05-2024 Miscellaneous Notes Called left message of PSA results. Kirk Matamoros MA ----- Message from Don Lara MD sent at 01/05/2024 2:15 PM EST ----- The lab results all look good. No change in plan. documented in this encounter [facility] 01-04-2024 Note [facility] 01-04-2024 History of Present illness Narrative HISTORY [...] by contextual derivation. documented in this encounter [facility] 12-28-2023 Telephone encounter Note Summary: Patient called back Patient calling back and wants to schedule. Please try and contact him again. Thanks, Kp [facility] 12-28-2023 Miscellaneous Notes Summary: Patient called back Patient calling back and wants to schedule. Please try and contact him again. Kp [place] LVM to schedule consult w/ Dr Goss documented in this encounter [facility] 12-28-2023 Telephone encounter Note LVM to schedule consult w/ Dr Goss [facility] 12-20-2023 Telephone encounter Note 12/20/2023 3rd attempt: lvm No longer reaching out to patient [facility] 12-20-2023 Miscellaneous Notes 12/20/2023 3rd attempt: [...] with for radiation documented in this encounter [facility] 12-20-2023 Telephone encounter Note Summary: Patient Called Back Patient calling back about setting this up. I apologize, he did not mention he received a voicemail already, but he stated he prefers to be called, but he's hard of hearing. You can also send him a MyChart. Thanks, Kp [facility] 12-19-2023 Telephone encounter Note 12/19/2023 lvm and (1st and 2nd attempt) to schedule patient new patient consult with for radiation [facility] 12-19-2023 Note [facility] 12-19-2023 History of Present illness Narrative Images from the original note were not included. Heart , Vascular and Thoracic [place] DEPARTMENT OF VASCULAR SURGERY OUTPATIENT VISIT DATE [...] with more than 50% of the total wysi-cu-gavg time of the visit in counseling / coordination of care. Malia Egan DO documented in this encounter [facility] 12-19-2023 Note [facility] 12-19-2023 History of Present illness Narrative Images [...] Kevin Patterson MD documented in this encounter [facility] 12-09-2023 History of Present illness Narrative [...] PATIENT PRESENTS WITH AN IMPLANTABLE OR ATTACHED CONTINUOUS PILLOWCASE CUTTER: No RADIOLOGY DEPARTMENT: CT; Exam(s) Completed: Chest PERIPHERAL IV DATA: Not applicable SIGNED BY: Iza Baez December 09, 2023 9:03 AM documented in this encounter [facility] 12-09-2023 Note HNO ID: [id number] Author: CINDY CHO Tech Service: Radiology Author Type: Black Jack Dealer Type: Progress Notes Filed: 12/09/2023 09:03 Note [...] PATIENT PRESENTS WITH AN IMPLANTABLE OR ATTACHED CONTINUOUS PILLOWCASE CUTTER: No RADIOLOGY DEPARTMENT: CT; Exam(s) Completed: Chest PERIPHERAL IV DATA: Not applicable SIGNED BY: Iza Baez December 09, 2023 9:03 AM [facility] 11-29-2023 History of Present illness Narrative [...] prostate adenocarcinoma, initial PSA 7.52 ng/mL, biopsy [place] score 3 + 4 = 7 (grade [...] Kevin Patterson MD documented in this encounter [facility] 11-27-2023 Instructions Romina Kahn APRN.WELL SURVEYING ENGINEER - 11/27/2023 10:55 AM EDT -Shower regularly [...] 4 weeks after surgery. Do not perform children's tutor nursery such as laundry and vacuuming. Do not [...] a motor vehicle. documented in this encounter [facility] 11-27-2023 History of Present illness Narrative Images from the original note were not included. [facility] - OUTPATIENT THORACIC SURGERY CLINIC NOTE PT NAME: Stevie Sanchez [facility] NO: [id number] THORACIC SURGEON: Paula Lizama M.D. DATE OF [...] the inked margin) were reviewed at the [facility] thoracic pathology consensus conference on 11/23/23. Dr. Fazuia Oseguera, Dr. Alexis Altman, Dr. Fitch and [...] Romina Kahn APRN.CNP documented in this encounter [facility] 11-27-2023 History of Present illness Narrative [...] PATIENT PRESENTS WITH AN IMPLANTABLE OR ATTACHED CONTINUOUS PILLOWCASE CUTTER: No RADIOLOGY DEPARTMENT: General X-ray: Exam(s) Completed: Chest X-Ray PERIPHERAL IV DATA: Not applicable SIGNED BY: RT Alexandar(R) November 27, 2023 10:22 AM documented in this encounter [facility] 11-23-2023 Telephone encounter Note PD nurse called patient for follow up from recent hospital discharge, but no answer. Left message on voicemail including 19/09 resource nurse phone number. Latha Ferris RN [facility] 11-23-2023 Miscellaneous Notes [facility] nurse called patient for follow up from recent hospital discharge, but no answer. Left message on voicemail including 19/09 resource nurse phone number. 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 lung cancer and pulmonary abscess Readmission Risk: 15 Value-Based Contract: Russ HARKINS Contact: Contact made with patient: Yes Hi, my name is Cecile Duggan RN and I am calling from the [facility] on behalf of your Primary Care [...] like to speak with a social work marine steam fitter to help give you support for any [...] I will send your request to a director of primary care who will contact and assist you with [...] 2023 12:36 PM documented in this encounter [facility] 11-10-2023 History of Present illness Narrative [...] PATIENT PRESENTS WITH AN IMPLANTABLE OR ATTACHED CONTINUOUS PILLOWCASE CUTTER: No RADIOLOGY DEPARTMENT: MR; Exam(s) Completed: Head: Routine Brain PERIPHERAL IV DATA: Site assessment: Clean,Dry and Intact, Site disposition Discontinued SIGNED BY: RT Stephanie(R) November 10, 2023 12:51 PM documented in this encounter [facility] 11-09-2023 History of Present illness Narrative [...] COVID-19 original vaccine, age 12+ yr, monovalent (Furnésh-BIONTECH - PURPLE TOP) Only the first 3 [...] 11/09/23 7:35 AM Impression IMPRESSION: See result 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: PSCB Transcribe Date/Time: Nov 09 2023 7:39A Dictated by : IVON PEREIRA MD This examination was interpreted and the report reviewed and electronically signed by: IVON PEREIRA MD on Nov 09 2023 7:41AM EST ECG COMPLETE Collection Time: 11/09/23 7:26 AM Impression SINUS RHYTHM WITH SHORT MO ST & ANTEROLATERAL T WAVE ABNORMALITY ABNORMAL [...] and consent discussed: yes. Patient / Responsible Democrat agrees to proceed: yes Patient / Surrogate [...] AM Pager/Contact #: documented in this encounter [facility] 11-09-2023 Nurse Note PATIENT EDUCATION The following was evaluated: Motivation To Learn: Interested Family/Significant Other Support: High - Very involved in pt care Cognitive Ability: Alert and oriented Patient Learns Best By: Multiple Methods The Following Influencing Factors Were Barriers To This Education Session: No barriers Database Designer Present: Not Applicable The Following Physical Limitations Were Barriers To This Education Session: None Instruction Provided To: Patient & Family Discipline: Nursing Learning Topic: Pre-op Instructions given Patient Evaluation: Verbalizes understanding Follow Up Plan: Patient/Family will call us with questions Supplemental Material Given: TCI Patient Instructions: Thoracic Surgery Teach completed, topic: hibiclens/listerine/ Instructed By Eliane Onofre RN. In Department of THORACIC CLINIC. [facility] 11-09-2023 Nurse Note PATIENT EDUCATION The following was evaluated: Motivation To Learn: Interested Family/Significant Other Support: High - Very involved in pt care Cognitive Ability: Alert and oriented Patient Learns Best By: Multiple Methods The Following Influencing Factors Were Barriers To This Education Session: No barriers Database Designer Present: Not Applicable The Following Physical Limitations [...] of THORACIC CLINIC. documented in this encounter [facility] 11-09-2023 History of Present illness Narrative [...] surgery. EK11/09/23 Diagnosis: SINUS RHYTHM WITH SHORT MO ST & ANTEROLATERAL T WAVE ABNORMALITY ABNORMAL ECG Clinical Staging: Risk, benefits, and alternatives discussed per Paula Da Silva&P 10/19/23 Films CCT, PET, and CXR . Eliane Onofre RN documented in this encounter [facility] 11-09-2023 History of Present illness Narrative [...] PATIENT PRESENTS WITH AN IMPLANTABLE OR ATTACHED CONTINUOUS PILLOWCASE CUTTER: No CREATININE: Creatinine Date Value Ref Range [...] Discontinued PROCEDURE TYPE: NM Stress: 12.0 mCi [id number] was administered IV for Rest Imaging at 08:56AM by RUBIA TODD. 32.3 mCi Ca14s-Qezbkwb was administered IV for Stress Imaging at [...] ALLERGIES: Reviewed and unchanged MEDICATIONS REVIEWED BY: Information Systems Consultant PROCEDURE TYPE: NM STRESS: 0.4 mg of Lexiscan was administered IV at 1002 by Apoorva Reddy RN . Reversal agent used: None. IV SITE: Ambulatory: A peripheral IV was started in the Right antecubital site with a Angio cath: 20 gauge. and A Saline lock was inserted per protocol POST EXAM PIV STATUS: Discontinued PATIENT DISCHARGED TO: Ambulatory patient, left [place] department area. A Diagnostic radioactive procedure has taken place, with no further precautions necessary other than routine body substance precautions. More information regarding radiation safety can be found using this link: [email or web address] SIGNATURE: Apoorva Reddy RN PATIENT NAME: Stevie Sanchez DATE: November 09, 2023 TIME: 10:06 AM PAGER/CONTACT #: documented in this encounter [facility] 11-09-2023 History of Present illness Narrative [...] PATIENT PRESENTS WITH AN IMPLANTABLE OR ATTACHED CONTINUOUS PILLOWCASE CUTTER: No RADIOLOGY DEPARTMENT: General X-ray: Exam(s) Completed: Chest X-Ray PERIPHERAL IV DATA: Not applicable SIGNED BY: RT Sebastian(R) November 09, 2023 7:35 AM documented in this encounter [facility] 10-27-2023 History of Present illness Narrative [...] RN Thoracic NPM documented in this encounter [facility] 10-26-2023 History of Present illness Narrative [...] Praful Su MD documented in this encounter [facility] 10-24-2023 History of Present illness Narrative [facility] STAFF PHYSICIAN NOTE OF PERSONAL INVOLVEMENT IN [...] THORACIC SURGERY OUTPATIENT CONSULT NOTE Stevie Sanchez [id number] Requesting Provider: Praful Su MD Thoracic Physician: [...] for RUL. SIGNATURE: Marlee Eagle MD PAGER: [phone] DATE of SERVICE: 10/19/2023 TIME of SERVICE: [...] 0.38 -8 FIVC (L) 3.69 4.14 12 MVH15-70 (L/sec) 0.69 0.97 2.26 4.10 30 0.78 [...] 6-30) Incomplete Incomplete documented in this encounter [facility] 10-17-2023 Procedure note Associated Ord er(s): [...] Trend (Previous Encounters) None SIGNATURE: Srinivasan Deng, LABORATORY GENETICIST PATIENT NAME: Stevie Sanchez DATE: October 17, [...] DATE: October 17, 2023 TIME: 1:19 PM [facility] 10-17-2023 Procedure note Associated Ord er(s): [...] and made appropriate revisions as needed. SIGNATURE: Halie Gentile MD PATIENT NAME: Stevie Sanchez DATE: October 17, 2023 TIME: 1:19 PM documented in this encounter [facility] 10-17-2023 History of Present illness Narrative PULM FUNCTION: Provider: Paula Lizama MD, PhD Assisting Tech: Srinivasan Deng RRT 6 MW: 1 documented in this encounter [facility] 10-10-2023 Telephone encounter Note Thoracic Surgery Consultation - review of records for appointment scheduling Received medical records from the office of Kevin Patterson [address] [place], [place] [address] Patient is being referred to Paula Lizama MD, PhD by Kevin Patterson for Lung Cancer Outside hospital records scanned / in [facility] / Care Everywhere Pathology:09/19/2023 Component FINAL DIAGNOSIS [...] comment). D - Lung, Right Lower Lobe, [place] Positive for malignant cells. Fragments of keratinizing [...] 6MW. Pt. is ADELINA Rowland RN T [facility] 10-10-2023 Miscellaneous Notes Thoracic Surgery Consultation - review of records for appointment scheduling Received medical records from the office of Kevin Patterson [address] [facility] [address] Patient is being referred to Paula Lizama MD, PhD by Kevin Patterson for Lung Cancer Outside hospital records scanned / in [facility] / Care Everywhere Pathology:09/19/2023 Component FINAL DIAGNOSIS [...] comment). D - Lung, Right Lower Lobe, [place] Positive for malignant cells. Fragments of keratinizing [...] ADELINA Rowland, RN documented in this encounter [facility] 10-10-2023 History of Present illness Narrative It is the responsibility of the presenting physician to facilitate any and all recommendations discussed during Thoracic Tumor Board if they are to be implemented into the patients plan of care. Pending Staff Approval [facility] DISCIPLINARY THORACIC TUMOR BOARD: October 10, 2023 Presenting Physician(s): Kevin Patterson MD Stevie Sanchez 73 year old [id number] Staff in Attendance: Staff representing all Thoracic [...] by:Kevin Patterson MD documented in this encounter [facility] 10-03-2023 History of Present illness Narrative [...] prostate adenocarcinoma, initial PSA 7.52 ng/mL, biopsy [place] score 3 + 4 = 7 (grade [...] Lymph 1.00 - 4.00 k/uL 1.20 Abs [place] <0.87 k/uL 0.67 Abs Eosin <0.46 k/uL [...] Kevin Patterson MD documented in this encounter [facility] 09-22-2023 Telephone encounter Note We are unable to schedule for Oncology but I did call the patient and give Stevie the phone number to call and schedule [facility] 09-22-2023 Miscellaneous Notes We are unable to schedule for Oncology but I did call the patient and give Stevie the phone number to call and schedule Spoke to patient regarding recent EBUS results. Will consult oncology Patient was also advised to chart picker antibiotics from his pharmacy. Thad Garrett MD documented in this encounter [facility] 09-22-2023 Telephone encounter Note Spoke to patient regarding recent EBUS results. Will consult oncology Patient was also advised to chart picker antibiotics from his pharmacy. Thad Garrett MD [facility] 09-19-2023 Note HNO ID: [id number] Author: MOISES NIEVES AA Service: ? Author Type: Beater Operator Type: Anesthesia Procedure Notes Filed: 09/19/2023 10:24 Note Text: ANESTHESIOLOGY PROCEDURE NOTE Airway General Information Procedure Start Time/Medication Administration: 09/19/2023 10:14 AM Procedure End Time: 09/19/2023 10:14 AM Patient location during procedure: OR Patient identity confirmed: arm band and care marine steam fitter Staffing Anesthesiologist: Pradeep An MD CAA: Moises [...] September 19, 2023 TIME: 10:23 AM CSN: [id number] [facility] 09-19-2023 Note [facility] Patient Name: Stevie Sanchez Procedure Date: 09/19/2023 9:58 AM Date of : 1950 Admit Type: Outpatient Age: 73 Room: [facility] Room 2 Gender: Male Attending MD: Arcadio Hodgson MD, [id number] Procedure: Bronchoscopy Indications: Right lower lobe mass [...] the superior segment (more content not included)... [facility] 09-14-2023 History of Present illness Narrative Images from the original note were not included. [facility] [place] [facility] Department of Cardiovascular Medicine SECTION OF REGIONAL CARDIOLOGY OUTPATIENT VISIT DATE September 13, 2023 OUTPATIENT VISIT TYPE NEW CONSULTATION PRIMARY CARE PHYSICIAN: Praful Su (Maggy) [address] [place] [address] CHIEF COMPLAINT: Preoperative CV risk assessment HISTORY [...] Abnormal ECG Confirmed by KRYSTLE AGRAWAL MD ([id number]) on 06/22/2023 11:31:58 AM Also confirmed by KRYSTLE AGRAWAL MD ([id number]), loan expeditor SANDY CARBONE ([id number]) on 06/23/2023 2:39:[address] Result Conclusion CT CHEST WO IVCON Exam End: 08/28/2023 2:00 PM (Final result) Impression: IMPRESSION: 1. Further interval enlargement of suspicious masslike opacity in the RIGHT lower lobe and mild enlargement of suspicious spiculated and cavitary nodule in the RIGHT upper lobe. 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[facility] Transcribe Date/Time: Sep 03 2023 12:14P [...] MD Cardiovascular Medicine Staff Interventional Cardiology Staff [facility] [address] [place] [address] documented in this encounter [facility] 09-11-2023 History and physical note HISTORY [...] manage symptoms. Procedure scheduled on 09/19/2023 at [facility]. REVIEW OF SYSTEMS: General: No weight loss, malaise or fevers. Neurological: Negative for: headaches, Parkinson's disease, seizures and strokes. Respiratory: Positive for: asthma, COPD and tobacco use. Negative for: current cough, dyspnea, URI < 2 weeks and obstructive sleep apnea. Cardiovascular: Positive for: abdominal aortic aneurysm, atrial fibrillation, hyperlipidemia and hypertension Negative for: AICD/PPM, anticoagulation therapy, arrhythmia, CAD, chest pain, CHF, DVT/PE, recent MD, murmur/valvular heart disease, open heart surgery and [...] 402 QTC Calculation (Bazett) 464 Calculated P [place] 59 Calculated R [place] 44 Calculated T [place] 18 Impression Sinus rhythm Atrial premature complexes Abnormal ECG Confirmed by KRYSTLE AGRAWAL MD ([id number]) on 06/22/2023 11:31:58 AM Also confirmed by KRYSTLE AGRAWAL MD ([id number]), loan expeditor SANDY CARBONE ([id number]) on 06/23/2023 2:39:58 PM No results found for this or any previous visit (from the past 22688 hour(s)). Assessment Patient has the following medical [...] atrial fibrillation with rvr 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 Consult to cardiology was placed. On [...] have a large neck STOP-Bang Score: 4 [id number] Score: Age: 65-74 Sex: male CHF history: No Hypertension history: Yes Stroke/TIA/thromboembolism history: No Vascular disease history: Yes Diabetes history: No [id number] Score: 3 ANESTHESIA FINDINGS: Intubation History: No [...] DATE: 09/11/2023 TIME: 3:06 PM PAGER/CONTACT #: [facility] 09-11-2023 History and physical note HISTORY [...] COVID-19 original vaccine, age 12+ yr, monovalent (Furnésh-BIONTECH - PURPLE TOP) Only the first 3 history entries have been loaded, but more history exists. CHIEF COMPLAINT: Pre-Op HPI: Stevie Sanchez is a 73 year old male presenting for pre-anesthesia consultation. Pt has history of lung mass. Above procedure recommended to manage symptoms. Procedure scheduled on 09/19/2023 at [facility]. REVIEW OF SYSTEMS: General: No weight loss, malaise or fevers. Neurological: Negative for: headaches, Parkinson's disease, seizures and strokes. Respiratory: Positive for: asthma, COPD and tobacco use. Negative for: current cough, dyspnea, URI < 2 weeks and obstructive sleep apnea. Cardiovascular: Positive for: abdominal aortic aneurysm, atrial fibrillation, hyperlipidemia and hypertension Negative for: AICD/PPM, anticoagulation therapy, arrhythmia, CAD, chest pain, CHF, DVT/PE, recent MD, murmur/valvular heart disease, open heart surgery and [...] 402 QTC Calculation (Bazett) 464 Calculated P [place] 59 Calculated R [place] 44 Calculated T [place] 18 Impression Sinus rhythm Atrial premature complexes Abnormal ECG Confirmed by KRYSTLE AGRAWAL MD ([id number]) on 06/22/2023 11:31:58 AM Also confirmed by KRYSTLE AGRAWAL MD ([id number]), loan expeditor SANDY CARBONE ([id number]) on 06/23/2023 2:39:58 PM No results found for this or any previous visit (from the past 83604 hour(s)). Assessment Patient has the following medical [...] atrial fibrillation with rvr 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 Consult to cardiology was placed. On [...] have a large neck STOP-Bang Score: 4 [id number] Score: Age: 65-74 Sex: male CHF history: No Hypertension history: Yes Stroke/TIA/thromboembolism history: No Vascular disease history: Yes Diabetes history: No [id number] Score: 3 ANESTHESIA FINDINGS: Intubation History: No [...] PM PAGER/CONTACT #: documented in this encounter [facility] 09-11-2023 Instructions Sailaja Gonzalez PA-C - 09/11/2023 1:38 PM EDT Images from the original note were not included. [facility] PATIENT PREOPERATIVE INSTRUCTIONS Arcadio Hodgson MD has scheduled you for your procedure at this surgery center: [facility]: [phone] --[id number] [address]. Please check in on the 1st floor [...] Procedures: - YOU MUST HAVE A RESPONSIBLE GRAPHIC DESIGN TEACHER TAKE YOU HOME. A ANALYST FOOD AND BEVERAGE OR WEBSPHERE DEVELOPER CANNOT BE MADE A RESPONSIBLE GRAPHIC DESIGN TEACHER. - We recommend that a responsible person [...] Advance Directive, please fax a copy to [phone] or email to for it to be [...] Sailaja Gonzalez PA-C documented in this encounter [facility] 09-06-2023 Note HNO ID: [id number] Author: ?, ?, ? Service: ? Author Type: ? Type: Progress Notes Filed: 09/06/2023 15:41 Note Text: Summary: Confirmed Proc Date of 09/18 Patient was called and provided information on proc EBUS date of 09/18. Advised to go to labs in [place]. Patient to go this week. Patient stated he had one before and had a panic attack. Some concern about that issue. Patient agreeable to go forward on 09/19/23. [facility] 09-04-2023 History of Present illness Narrative Bronchoscopy [...] OF ABOVE TWO QUESTIONS PLEASE REFER TO [facility] ANESTHESIA GUIDANCE ON HOLDING Diagnosis/Reason for Bronchoscopy: RLL mass, prior biopsy only necrosis. Seems to have grown, now with endobronchial component. Need more tissue for path, culture. Referred by: Deivn Reviewed by: BRITNEY Hodgson MD September 04, 2023 10:42 PM documented in this encounter [facility] 09-04-2023 Note HNO ID: [id number] Author: ARCADIO HODGSON MD Service: ? Author [...] OF ABOVE TWO QUESTIONS PLEASE REFER TO [facility] ANESTHESIA GUIDANCE ON HOLDING Diagnosis/Reason for Bronchoscopy: RLL mass, prior biopsy only necrosis. Seems to have grown, now with endobronchial component. Need more tissue for path, culture. Referred by: Devin Reviewed by: BRITNEY Hodgson MD September 04, 2023 10:42 PM [facility] 09-04-2023 History of Present illness Narrative Dear Adrienne, Thank you for this interesting e-consult. I personally reviewed the imaging studies and the chart notes. As we discussed earlier, I agree with rebiopsy. I have submitted this note to our bronchoscopy scheduling team. Thank you again. Garcia Hodgson MD 09/04/2023 10:52 PM documented in this encounter [facility] 09-04-2023 Telephone encounter Note First Attempt- Called pt and left vm to call back to schedule a consult to card. appointment. [facility] 09-04-2023 Miscellaneous Notes First Attempt- Called pt and left vm to call back to schedule a consult to card. appointment. documented in this encounter [facility] 09-01-2023 History of Present illness Narrative [...] in agreement. Thad Garrett MD, Staff, Respiratory [facility] CHIEF COMPLAINT: Abnormal Imaging HISTORY OF [...] No significant exposure Silica: No significant exposure [place]: Present Mold: Present Hot tub: No significant [...] COVID-19 vaccine, age 12+ yr, 2022- season (PFIZER-BIONTMy Rental Units) 02/14/2023 COVID-19 vaccine, age 12+ yr, bivalent [...] independent evaluation of this patient on 09/01/2023 Thad Garrett MD, Staff, Respiratory [facility] documented in this encounter [facility] 08-28-2023 Telephone encounter Note Thad Garrett MD EV 08/14/23 11:00 AM Note Spoke to patient regarding inhalers. Wixela costing patient close to $25. Patient will chart picker the inhaler. Advised to bring his inhalers with him next time. Thad Garrett MD [facility] 08-28-2023 Miscellaneous Notes Thad Garrett MD EV 08/14/23 11:00 AM Note Spoke to patient regarding inhalers. Wixela costing patient close to $25. Patient will chart picker the inhaler. Advised to bring his inhalers [...] options. Please advise documented in this encounter [facility] 08-21-2023 Telephone encounter Note Patient calls [...] Yes. Patient prefers: Escript. Yolanda Pastor LPN [facility] 08-21-2023 Miscellaneous Notes Patient calls for [...] 145 02/08/2021 253 No results found for: [facility] Pharmacy has been captured: Yes. Patient prefers: Escript. Yolanda Pastor LPN Patient phones requesting refills as follows: Requested Prescriptions Pending Prescriptions Disp Refills lisinopril-hydroCHLOROthiazide (ZESTORETIC) 20-12.5 mg per tablet 90 tablet 3 Sig: Take 1 tablet by mouth once daily. Please review and advise. Oc Dowling documented in this encounter [facility] 08-21-2023 Telephone encounter Note Patient phones requesting refills as follows: Requested Prescriptions Pending Prescriptions Disp Refills lisinopril-hydroCHLOROthiazide (ZESTORETIC) 20-12.5 mg per tablet 90 tablet 3 Sig: Take 1 tablet by mouth once daily. Please review and advise. Oc Dowling [facility] 08-14-2023 Telephone encounter Note Spoke to patient regarding inhalers. Wixela costing patient close to $25. Patient will chart picker the inhaler. Advised to bring his inhalers with him next time. Thad Garrett MD [facility] 08-14-2023 Miscellaneous Notes Spoke to patient regarding inhalers. Wixela costing patient close to $25. Patient will chart picker the inhaler. Advised to bring his inhalers with him next time. Thad Garrett MD documented in this encounter [facility] 08-10-[address] Garrett it doesn't look like this message was even forwarded to you. [facility] 08-01-2023 Telephone encounter Note Called and spoke with patient he states his insurance is covering $400 of the stiolto but his copay is still $100 which is too expensive. He will contact his insurance and find out if there are any alternatives on his plan with a lower copay and will let us know. [facility] 08-01-2023 Telephone encounter Note Patient called in stating inhaler is too expensive and is asking for other options. Please advise [facility] 07-31-2023 Telephone encounter Note Request for [...] needed at this time. Marlee Mejia LPN [facility] 07-31-2023 Miscellaneous Notes Request for refill [...] advise. Connie Champion documented in this encounter [facility] 07-31-2023 Telephone encounter Note Patient phones requesting refills as follows: Requested Prescriptions Pending Prescriptions Disp Refills gabapentin (NEURONTIN) 300 mg capsule 540 capsule 3 Sig: TAKE 2 CAPSULES BY MOUTH 3 TIMES A DAY Please review and advise. Connie Champion [facility] 07-28-2023 History of Present illness Narrative Images from the original note were not included. [facility] OFFICE VISIT CONSULT 06/08/2023 Patient Name: Stevie Sanhcez PRIMARY CARE PHYSICIAN: Praful Su MD REASON [...] in agreement. Thad Garrett MD, Staff, Respiratory [facility] CHIEF COMPLAINT: Abnormal Imaging HISTORY OF [...] No significant exposure Silica: No significant exposure [place]: Present Mold: Present Hot tub: No significant [...] COVID-19 original vaccine, age 12+ yr, monovalent (Aer[place]ale - PURPLE TOP) 05/26/2020 06/17/2020 02/04/2021 COVID-19 vaccine, age 12+ yr, 2022- season (Aeropostale) 02/14/2023 COVID-19 vaccine, age 12+ yr, bivalent (Furnésh-BIONTECH) 12/28/2021 influenza (HD-IIV3) vaccine, age 65+ yr, [...] on 07/28/2023 Thad Garrett MD, Staff, Respiratory [facility] documented in this encounter [facility] 07-04-2023 History of Present illness Narrative PULM FUNCTION SMARTBLOCK: Provider: Thad Garrett MD Assisting Tech: Srinivasan Deng RRT Spirometry w/BD: 1 DLCO: 1 documented in this encounter [facility] 06-29-2023 History of Present illness Narrative Images from the original note were not included. Heart , Vascular and Thoracic [place] DEPARTMENT OF VASCULAR SURGERY OUTPATIENT VISIT DATE [...] Results CTA ABD/PEL LOWER EXTREM W IVCON (Acc#[id number] -[facility]) (Order [id number]) Patient Info Patient Name Sex Stevie Thomas ([id number]) Male 1950 Imaging Findings Finding Acuity Linked Recommendation Recommendation Status Finding Status Thoracic-Lung nodules Routing code: RI_[address] Chest WO IVCON in 6-12 months. Closed Reviewed Recommendations No Additional Follow-Up Needed Procedure Ordered Authorizing CT Chest WO IVCON in 6-12 months. CTA CHEST (NONGATED) W IVCON 04/25/2023 Phuong Beasley, MOLECULAR BIOLOGY SCIENTIST.WELL SURVEYING ENGINEER Reading Physician Reading Date Provider, [facility] [place] 05/17/2023 05/17/2023 5:57 PM - Radiology, O[place] [...] be communicated with the ordering provider via [employer] staff message or phone message by Imaging Support Services within 2 business days of report finalization. --END OF FINDING-- 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: PSCB Transcribe Date/Time: May 17 2023 5:32P Dictated by : TRUE MARTINEZ MD This examination was interpreted and the report reviewed and electronically signed by: TRUE MARTINEZ MD on May 17 2023 5:55PM EST Results-Findings * * *Final Report* * * DATE OF EXAM: May 17 2023 4:27PM [facility] 0122 - CTA ABD/PEL/LOWER EXT W IVCON [...] TIME: 3:46 PM documented in this encounter [facility] 06-23-2023 History of Present illness Narrative Called patients number no answer. Left a detailed voicemail. I called patients sister Elisabeth who picked up and stated she would let Stevie know that I ordered antibiotics and sent the prescription to his pharmacy. Will call patient on Monday. Thad Garrett MD documented in this encounter [facility] 06-20-2023 Note HNO ID: [id number] Author: ARCADIO HODGSON MD Service: ? Author [...] Hodgson MD 2:10 PM June 20, 2023 [facility] 06-20-2023 History of Present illness Narrative POST-BRONCHOSCOPY [...] June 20, 2023 documented in this encounter [facility] 06-20-2023 Note HNO ID: [id number] Author: CINDY POP AA Service: ? Author Type: Beater Operator Type: Anesthesia Procedure Notes Filed: 06/20/2023 12:38 [...] June 20, 2023 TIME: 12:38 PM CSN: [id number] [facility] 06-20-2023 Note [facility] Patient Name: Stevie Sanchez Procedure Date: 06/20/2023 11:58 AM Date of : 1950 Admit Type: Outpatient Age: 72 Room: [facility] Room 2 Gender: Male Attending MD: Arcadio Hodgson MD, [id number] Procedure: Bronchoscopy Indications: Mediastinal staging of suspected [...] physician, the nurse, the anesthesiologist and the funeral prearrangement counselor in the procedure room. Mental Status Examination: [...] CT and hypermetabol (more content not included)... [facility] 06-19-2023 History of Present illness Narrative RADIOLOGY [...] PATIENT PRESENTS WITH AN IMPLANTABLE OR ATTACHED CONTINUOUS PILLOWCASE CUTTER: No CREATININE: Creatinine Date Value Ref Range [...] DIAGNOSTIC CT PERFORMED: No IV SITE: Ambulatory: [place] only - direct IV injection in the Right antecubital site POST EXAM PIV STATUS: Discontinued PROCEDURE TYPE: NM INJECT: PET/CT BODY SCAN. 15.5 mCi F18 FDG. No other medications given.. ADMINISTRATION TIME: 1248 PATIENT DISCHARGED TO: Ambulatory patient, left [place] department area. A Diagnostic radioactive procedure has taken place, with no further precautions necessary other than routine body substance precautions. More information regarding radiation safety can be found using this link: [email or web address] SIGNATURE: RT Ceasar(Harry) PATIENT NAME: Stevie Sanchez DATE: June 19, 2023 TIME: 12:54 PM PAGER/CONTACT #: documented in this encounter [facility] 06-16-2023 Miscellaneous Notes Spoke with patient and reviewed pre-op instructions for upcoming bronchoscopy on 06/20/23 at 1200. Advised to arrive at [id number] to [facility] admissions/registration. Aware of dietary restrictions, and to stop over the counter herbal/vitamins supplements. 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 Routing to provider as DELANO. Aristides Munoz, RN Attempted to call patient again and no answer. Left message for patient to call back to review Bronchoscopy pre-op instructions. Aristides Smith Ma Left message for patient to call back to review Bronchoscopy pre-op instructions. Aristides Smith Ma documented in this encounter [facility] 06-13-2023 Note HNO ID: [id number] Author: ?, ?, ? Service: ? Author Type: ? Type: Progress Notes Filed: 06/13/2023 14:39 Note Text: Patient returns call: Reviewed with patient Bronchoscopy Request: Please schedule patient for the following: Bronchoscopy Procedures: EBUS-Anticipated Procedure Date: 06/20/23- To be called day prior with arrival time Location/ at [facility] To be called with arrival time Physician Performing Bronchoscopy: Dr. Hodgson Needs Labs: Yes, CBC - Scheduled Needs EKG: Yes- scheduled Needs CT: No Advised needs a bulk tank driver NPO after midnight [facility] 06-13-2023 Note HNO ID: [id number] Author: ?, ?, ? Service: ? Author Type: ? Type: Progress Notes Filed: 06/13/2023 13:17 Note Text: Attempt: #1, called lm on to call in [facility] 06-12-2023 Note HNO ID: [id number] Author: ARCADIO HODGSON MD Service: ? Author [...] Hodgson MD June 12, 2023 9:21 PM [facility] 06-12-2023 History of Present illness Narrative Bronchoscopy [...] 2023 9:21 PM documented in this encounter [facility] 06-12-2023 History of Present illness Narrative [...] 06/12/2023 9:02 PM documented in this encounter [facility] 06-12-2023 Note HNO ID: [id number] Author: ARCADIO HODGSON MD Service: ? Author [...] again. Garcia Hodgson MD 06/12/2023 9:02 PM [facility] 06-08-2023 History of Present illness Narrative Images [...] reach out our interventional pulmonology up at [place]. - Will obtain PET scan. - Obtain [...] in agreement. Thad Garrett MD, Staff, Respiratory [facility] CHIEF COMPLAINT: Abnormal Imaging HISTORY OF [...] No significant exposure Silica: No significant exposure [place]: Present Mold: Present Hot tub: No significant [...] COVID-19 original vaccine, age 12+ yr, monovalent (A[place]ale - PURPLE TOP) 05/26/2020 06/17/2020 02/04/2021 COVID-19 vaccine, age 12+ yr, 2022- season (Aeropostale) 02/14/2023 COVID-19 vaccine, age 12+ yr, bivalent (Furnésh-BIONTMy Rental Units) 12/28/2021 influenza (HD-IIV3) vaccine, age 65+ yr, [...] disease counseling. Thad Garrett MD, Staff, Respiratory [facility] CC: Praful Su MD No ref. provider found documented in this encounter [facility] 05-30-2023 History of Present illness Narrative Incidental Lung Nodule Enrollment Outreach attempt: 1st Attempt Outreach status: Complete Enrolled in Lung Nodule program: No Lung Nodule outreach: No outreach - Pulmonary Lung Nodule Program Location: [place] Patient is scheduled with pulmonology Dr. Garrett 06/08/2023 for incidental lung nodules (RLL nodular opacities) noted on CT chest 05/17/2023. Shanti Mckenna APRN.WELL SURVEYING ENGINEER documented in this encounter [facility] 05-29-2023 Miscellaneous Notes Patient calls for [...] advise. Connie Champion documented in this encounter [facility] 05-18-2023 History of Present illness Narrative Order for Lung nodule clinic entered Pt updated on CTA Chest results Phuong Beasley documented in this encounter [facility] 05-17-2023 History of Present illness Narrative [...] PATIENT PRESENTS WITH AN IMPLANTABLE OR ATTACHED CONTINUOUS PILLOWCASE CUTTER: No RADIOLOGY DEPARTMENT: CT; Exam(s) Completed: CTA Aorta/leg runoff and CTA Chest PERIPHERAL IV DATA: Site assessment: Clean,Dry and Intact, Site disposition Discontinued SIGNED BY: RT My(R) May 17, 2023 4:15 PM documented in this encounter [facility] 05-17-2023 Nurse Note Radiology Service Progress [...] TIME: 4:11 PM documented in this encounter [facility] 05-11-2023 Miscellaneous Notes Patient given message. Verbalized understanding. No further action needed. Darshana Dunn LPN Notify patient that stool test for blood is negative. documented in this encounter [facility] 05-05-2023 Miscellaneous Notes Patient returned call to office and was given message from PCP. Verbalized understanding. No further action is required at this time. Oc Dowlnig Left message for patient to give office a call back. Darshana Dunn LPN Phoned patient. Received the following message The call can not be completed Yolanda Pastor LPN Notify patient that tests are okay. documented in this encounter [facility] 04-27-2023 History of Present illness Narrative [...] Praful Su MD documented in this encounter [facility] 04-25-2023 History of Present illness Narrative Images from the original note were not included. Heart , Vascular and Thoracic [place] DEPARTMENT OF VASCULAR SURGERY OUTPATIENT VISIT DATE [...] TIME: 2:00 PM documented in this encounter [facility] 01-02-2023 Miscellaneous Notes Generalized message left on voicemail, advised everything fine and call back if any questions. Called patient left message for them to return call to office. Paresh Hess MA Component Ref Range & Units [...] change in plan. documented in this encounter [facility] 10-13-2022 History of Present illness Narrative Images from the original note were not included. Heart , Vascular and Thoracic [place] DEPARTMENT OF VASCULAR SURGERY VASCULAR SURGERY INITIAL CONSULT/ H+P SERVICE DATE: 10/13/2022 SERVICE TIME: 10:14 AM PRIMARY CARE PHYSICIAN: Praful Su MD REFERRING PROVIDER: Praful Su ([facility]) [address] [place] [id number] Consult requested for an opinion regarding the [...] agrees to plan documented in this encounter [facility] 09-26-2022 Miscellaneous Notes Spoke to patient to conf apts. Encounter closed. Left message for patient to call Terese at [phone] . Appts for rizwan lab and dr. Roberts have been moved to 10/13/22. documented in this encounter [facility] 08-29-2022 Miscellaneous Notes Patient called requesting the following refill: Requested Prescriptions Pending Prescriptions Disp Refills lisinopril-hydroCHLOROthiazide (ZESTORETIC) 20-12.5 mg per tablet 90 tablet 3 Sig: Take 1 tablet by mouth once daily. Script(s) will be E-script to pharmacy The patients preferred pharmacy has been captured for this encounter? yes Grazyna Shearer documented in this encounter [facility] 05-30-2022 Miscellaneous Notes Patient called requesting [...] yes Grazyna Shearer documented in this encounter [facility] 04-12-2022 History of Present illness Narrative [...] today's encounter, 04/12/2022. documented in this encounter [facility] 03-30-2022 History of Present illness Narrative Images from the original note were not included. Heart , Vascular and Thoracic [place] DEPARTMENT OF VASCULAR SURGERY VASCULAR SURGERY INITIAL CONSULT/ H+P SERVICE DATE: 03/30/2022 SERVICE TIME: 12:55 PM PRIMARY CARE PHYSICIAN: Praful Su MD REFERRING PROVIDER: Praful Su ([facility]) [id number] [facility] [address] Consult requested for an opinion regarding the [...] agrees to plan documented in this encounter [facility] 03-23-2022 Miscellaneous Notes Patient was given message below and understood. No further action needed. Grazyna Shearer Left message for patient to give office a call back. Darshana Dunn LPN Notify patient that ultrasound shows significant aortic aneurysm, will need to follow up with vascular surgery to monitor it. Order placed. documented in this encounter [facility] 03-18-2022 Miscellaneous Notes Patient given message. Verbalized understanding. No further action needed. Darshana Dunn LPN Notify patient that stool test for blood is negative. documented in this encounter [facility] 03-16-2022 Miscellaneous Notes Spoke with vascular. Ordered for US ABD Aorta needed changed from radiology class to vascular class. Order was changed and confirmed correct with vascular. No further action needed. Grazyna Shearer There was another order on file for a US Doppler Aorta that was accidentally canceled out when the original appointment was scheduled in [place]. Our office (PCP office) called and spoke with Radiology in [place] who stated these are are tests we [...] that time. TY documented in this encounter [facility] 03-07-2022 History of Present illness Narrative [...] Praful Su MD documented in this encounter [facility] 02-07-2022 Miscellaneous Notes Patient calls for [...] advise. Stormy Jackson documented in this encounter [facility] 12-07-2021 Miscellaneous Notes Patient called back in due to not being able to understand the phone message that was left (person spoke too fast). I relayed the message Dunia Cassidy Left voicemail message to give patient PSA results, 0.4. Results look good no change in plan. Debbie Carrington RN documented in this encounter [facility] 11-25-2021 History of Present illness Narrative [...] 2021 12:23 PM documented in this encounter [facility] 11-17-2021 Miscellaneous Notes Stevie Sanchez called today. : 1950 Allergies: Patient has no known allergies. (home) [phone] (cell) Reason for call: Pt states that [...] appointment: 05/26/2021 ThanksAnne documented in this encounter [facility] 08-12-2021 Miscellaneous Notes Left detailed message informing the patient of the message below, if any questions or concerns to give the office a call back. Gayle Castellon Ma Notify patient that tests are good. documented in this encounter [facility] 08-11-2021 Nurse Note Stevie Sanchez presents in office today for Lab Draw. Ordering Provider: Praful Su M.D. Test (s) ordered: BMP (SMA7) Phlebotomy was performed, accessing right antecubital vein. Needle removed intact. Dressing secured. Patient denies discomfort, dizziness, light-headedness or weakness and left the department without assist. Angi Asif Ma documented in this encounter [facility] 08-11-2021 History of Present illness Narrative [...] Praful Su MD documented in this encounter [facility] 06-03-2021 Miscellaneous Notes Patient calls for [...] Value 02/08/2021 253 No results found for: [facility] Pharmacy has been captured: Yes. [...] advise. Brooke Root documented in this encounter [facility] 05-26-2021 Miscellaneous Notes Message left for Stevie. PSA <0.02 & testosterone <84. Numbers are good & needs to get repeat in 6 months Alida Isaacs RN documented in this encounter [facility] 09-15-2011 History of Past i llness Narrative Problem Noted Date Resolved Date Hypercholesteremia 09/15/2011 09/16/2011 documented as of this encounter (statuses as of 05/26/2021) [facility] of Past illness Narrative* Problem Noted Date Resolved Date Hypercholesteremia 09/15/2011 09/16/2011 documented as of this encounter (statuses as of 06/03/2021) [facility] Narrative* Problem Noted Date Resolved Date Hypercholesteremia 09/15/2011 09/16/2011 documented as of this encounter (statuses as of 08/11/2021) [facility] Narrative* Problem Noted Date Resolved Date Hypercholesteremia 09/15/2011 09/16/2011 documented as of this encounter (statuses as of 08/12/2021) [facility] Narrative* Problem Noted Date Resolved Date Hypercholesteremia 09/15/2011 09/16/2011 documented as of this encounter (statuses as of 11/18/2021) [facility] Narrative* Problem Noted Date Resolved Date Hypercholesteremia 09/15/2011 09/16/2011 documented as of this encounter (statuses as of 11/25/2021) [facility] Narrative* Problem Noted Date Resolved Date Hypercholesteremia 09/15/2011 09/16/2011 documented as of this encounter (statuses as of 12/07/2021) [facility] Narrative* Problem Noted Date Resolved Date Hypercholesteremia 09/15/2011 09/16/2011 documented as of this encounter (statuses as of 02/07/2022) [facility] Narrative* Problem Noted Date Resolved Date Hypercholesteremia 09/15/2011 09/16/2011 documented as of this encounter (statuses as of 03/07/2022) [facility] Narrative* Problem Noted Date Resolved Date Hypercholesteremia 09/15/2011 09/16/2011 documented as of this encounter (statuses as of 03/14/2022) [address]2012 History of Past illness Narrative* Problem Noted Date Resolved Date Hypercholesteremia 09/15/2011 09/16/2011 documented as of this encounter (statuses as of 03/16/2022) [address]2012 History of Past illness Narrative* Problem Noted Date Resolved Date Hypercholesteremia 09/15/2011 09/16/2011 documented as of this encounter (statuses as of 03/18/2022) [address]2012 History of Past illness Narrative* Problem Noted Date Resolved Date Hypercholesteremia 09/15/2011 09/16/2011 documented as of this encounter (statuses as of 03/23/2022) [address]2012 History of Past illness Narrative* Problem Noted Date Resolved Date Hypercholesteremia 09/15/2011 09/16/2011 documented as of this encounter (statuses as of 03/30/2022) [address]2012 History of Past illness Narrative* Problem Noted Date Resolved Date Hypercholesteremia 09/15/2011 09/16/2011 documented as of this encounter (statuses as of 04/12/2022) [address]2012 History of Past illness Narrative* Problem Noted Date Resolved Date Hypercholesteremia 09/15/2011 09/16/2011 documented as of this encounter (statuses as of 05/30/2022) [address]2012 History of Past illness Narrative* Problem Noted Date Resolved Date Hypercholesteremia 09/15/2011 09/16/2011 documented as of this encounter (statuses as of 08/29/2022) [address]2012 History of Past illness Narrative* Problem Noted Date Diagnosed Date Resolved Date Hypercholesteremia 09/15/2011 2 documented as of this encounter (statuses as of 09/26/2022) [address]2012 History of Past illness Narrative* Problem Noted Date Diagnosed Date Resolved Date Hypercholesteremia 09/15/2011 2 documented as of this encounter (statuses as of 10/14/2022) [address]2012 History of Past illness Narrative* Problem Noted Date Diagnosed Date Resolved Date Hypercholesteremia 09/15/2011 2 documented as of this encounter (statuses as of 01/03/2023) [address]2012 History of Past illness Narrative* Problem Noted Date Diagnosed Date Resolved Date Hypercholesteremia 09/15/2011 2 documented as of this encounter (statuses as of 04/25/2023) [facility] Past illness Narrative* Problem Noted Date Diagnosed Date Resolved Date Hypercholesteremia 09/15/2011 2 documented as of this encounter (statuses as of 04/28/2023) [address]2012 History of Past illness Narrative* Problem Noted Date Diagnosed Date Resolved Date Hypercholesteremia 09/15/2011 2 documented as of this encounter (statuses as of 05/05/2023) [facility] Past illness Narrative* Problem Noted Date Diagnosed Date Resolved Date Hypercholesteremia 09/15/2011 2 documented as of this encounter (statuses as of 05/11/2023) [facility] Past [facility] Narrative* Problem Noted Date Diagnosed Date Resolved Date Hypercholesteremia 09/15/2011 2 documented as of this encounter (statuses as of 05/18/2023) [facility] Narrative* Problem Noted Date Diagnosed Date Resolved Date Hypercholesteremia 09/15/2011 2 documented as of this encounter (statuses as of 05/18/2023) [facility] Past illness Narrative* Problem Noted Date Diagnosed Date Resolved Date Hypercholesteremia 09/15/2011 2 documented as of this encounter (statuses as of 05/18/2023) [address]2012 History of Past illness Narrative* Problem Noted Date Diagnosed Date Resolved Date Hypercholesteremia 09/15/2011 2 documented as of this encounter (statuses as of 05/30/2023) [address]2012 History of Past illness Narrative* Problem Noted Date Diagnosed Date Resolved Date Hypercholesteremia 09/15/2011 2 documented as of this encounter (statuses as of 05/30/2023) [address]2012 History of Past illness Narrative* Problem Noted Date Diagnosed Date Resolved Date Hypercholesteremia 09/15/2011 2 documented as of this encounter (statuses as of 06/09/2023) [address]2012 History of Past illness Narrative* Problem Noted Date Diagnosed Date Resolved Date Hypercholesteremia 09/15/2011 2 documented as of this encounter (statuses as of 06/09/2023) [address]2012 History of Past illness Narrative* Problem Noted Date Diagnosed Date Resolved Date Hypercholesteremia 09/15/2011 2 documented as of this encounter (statuses as of 06/13/2023) [address]2012 History of Past illness Narrative* Problem Noted Date Diagnosed Date Resolved Date Hypercholesteremia 09/15/2011 2 documented as of this encounter (statuses as of 06/13/2023) [address]2012 History of Past illness Narrative* Problem Noted Date Diagnosed Date Resolved Date Hypercholesteremia 09/15/2011 2 documented as of this encounter (statuses as of 06/15/2023) [address]2012 History of Past illness Narrative* Problem Noted Date Diagnosed Date Resolved Date Hypercholesteremia 09/15/2011 2 documented as of this encounter (statuses as of 06/16/2023) [facility] Diagnosis Essential hypertension- Primary Unspecified essential hypertension Glucose intolerance (impaired glucose tolerance) Impaired glucose tolerance test Mixed hyperlipidemia Abdominal aortic aneurysm without rupture (HCC) Abdominal aneurysm without mention of rupture [facility] Diagnosis Spinal stenosis of lumbar region with neurogenic claudication Spinal stenosis, lumbar region, with neurogenic claudication Paresthesias Disturbance of skin sensation [facility] Diagnosis Essential hypertension- Primary Unspecified essential hypertension Glucose intolerance (impaired glucose tolerance) Impaired glucose tolerance test Abdominal aortic aneurysm (AAA) without rupture, unspecified part Screening for colon cancer Special screening for malignant neoplasms, colon Abdominal aortic aneurysm (AAA) without rupture, unspecified part [facility] Diagnosis Abdominal aortic aneurysm (AAA) without rupture, unspecified part [facility] Diagnosis Abdominal aortic aneurysm (AAA) without rupture, unspecified part- Primary [facility] Diagnosis Abdominal aortic aneurysm (AAA) without rupture, unspecified part- Primary [facility] Diagnosis Abdominal aortic aneurysm (AAA) without rupture, unspecified part documented in this encounter [facility] note* Diagnosis Malignant neoplasm of prostate (HCC)- Primary Malignant neoplasm of prostate documented in this encounter [facility] note* Diagnosis Infrarenal abdominal aortic aneurysm (AAA) without rupture (HCC)- Primary documented in this encounter [facility] note* Diagnosis Abdominal aortic aneurysm (AAA) without rupture, unspecified part (HCC)- Primary Primary hypertension Unspecified essential hypertension HDL deficiency Lipoprotein deficiencies Encounter for other preprocedural examination documented in this encounter [facility] note* Diagnosis Glucose intolerance (impaired glucose [...] malignant neoplasms, colon [facility] Diagnosis Abdominal aortic aneurysm (AAA) without rupture, unspecified part (HCC) documented in this encounter [facility] note* Diagnosis Encounter for other preprocedural examination [facility] Diagnosis Lung nodule- Primary Solitary pulmonary nodule [facility] Diagnosis Lung nodules- Primary Other nonspecific abnormal finding of lung field documented in this encounter [facility] note* Diagnosis Multiple lung nodules- Primary Other nonspecific abnormal finding of lung field Centrilobular emphysema (HCC) Other emphysema Former smoker Personal history of tobacco use, presenting hazards to health [facility] Diagnosis SOB (shortness of breath)- Primary Shortness of breath Lung nodules Other nonspecific abnormal finding of lung field Centrilobular emphysema (HCC) Other emphysema Former smoker Personal history of tobacco use, presenting hazards to health Infrarenal abdominal aortic aneurysm (AAA) without rupture (HCC) History of prostate cancer Personal history of malignant neoplasm of prostate [facility] Diagnosis Lung mass- Primary Swelling, mass, or lump in chest [facility] Diagnosis Lung mass- Primary Swelling, mass, or lump in chest [facility] Diagnosis Lung mass Swelling, mass, or lump in chest Lung mass Swelling, mass, or lump in chest [facility] Diagnosis Lung nodules Other nonspecific abnormal finding of lung field [facility] Diagnosis Abdominal aortic aneurysm (AAA) without rupture, unspecified part (HCC)- Primary [facility] Diagnosis SOB (shortness of breath) Shortness of breath [facility] Diagnosis SOB (shortness of breath) Shortness of breath [facility] Diagnosis Lung mass- Primary Swelling, mass, or lump in chest Chronic obstructive pulmonary disease, unspecified COPD type (HCC) SOB (shortness of breath) Shortness of breath Centrilobular emphysema (HCC) Other emphysema Lung nodules Other nonspecific abnormal finding of lung field Current smoker Tobacco use disorder [facility] Diagnosis Spinal stenosis of lumbar region with neurogenic claudication Spinal stenosis, lumbar region, with neurogenic claudication Paresthesias Disturbance of skin sensation [facility] Diagnosis Lung mass Swelling, mass, or lump in chest [facility] Diagnosis Chronic obstructive pulmonary disease, unspecified COPD type (HCC)- Primary Preoperative clearance Preoperative examination, unspecified Paroxysmal atrial fibrillation (HCC) Atrial fibrillation Lung mass Swelling, mass, or lump in chest Former smoker Personal history of tobacco use, presenting hazards to health [facility] Diagnosis Mass of right lung- Primary [facility] Diagnosis Lung mass- Primary Swelling, mass, or lump in chest [facility] Diagnosis Pre-op evaluation- Primary Preoperative examination, [...] atrial fibrillation with rvr 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 Consult to cardiology was placed. On [...] attention if symptomatic. [facility] Preoperative cardiovascular examination- Primary Pre-operative cardiovascular examination Lung mass Swelling, mass, or lump in chest Mixed hyperlipidemia Primary hypertension Unspecified essential hypertension Lung mass Swelling, mass, or lump in chest [facility] Diagnosis Squamous cell carcinoma of lung, unspecified laterality (HCC)- Primary [facility] Diagnosis Malignant neoplasm of lung, unspecified laterality, unspecified part of lung (HCC)- Primary Squamous cell carcinoma of lung, unspecified laterality (HCC) [facility] Diagnosis Squamous cell carcinoma of lung, unspecified laterality (HCC)- Primary [facility] Diagnosis Malignant neoplasm of lower lobe of right lung (HCC)- Primary Lung nodule Solitary pulmonary nodule [facility] Diagnosis Pre-op evaluation- Primary Preoperative examination, [...] Solitary pulmonary nodule [facility] Diagnosis Pre-op evaluation- Primary Preoperative examination, [...] and lung- Primary [facility] Diagnosis Pre-op evaluation- Primary Preoperative examination, [...] right lung (HCC) [facility] Diagnosis Pre-op evaluation- Primary Preoperative examination, [...] other preprocedural examination [facility] Diagnosis Pre-op evaluation- Primary Preoperative examination, [...] Pre-procedural laboratory examination [facility] Diagnosis Pre-op evaluation- Primary Preoperative examination, [...] Pre-procedural laboratory examination [facility] Diagnosis Pre-op evaluation- Primary Preoperative examination, [...] Pre-procedural laboratory examination [facility] Diagnosis Pre-op evaluation- Primary Preoperative examination, [...] Pre-procedural laboratory examination [facility] Diagnosis Pre-op evaluation- Primary Preoperative [...] Pre-procedural laboratory examination [facility] Diagnosis Pre-op evaluation- Primary Preoperative [...] Solitary pulmonary nodule [facility] Diagnosis Pre-op evaluation- Primary Preoperative examination, [...] without pneumonia (HCC) [facility] Pre-op evaluation- Primary Preoperative [...] laterality (HCC)- Primary [facility] Diagnosis Pre-op evaluation- Primary Preoperative [...] unspecified laterality (HCC) [facility] Diagnosis Pre-op evaluation- Primary Preoperative examination, [...] lung (HCC)- Primary documented in this encounter [facility] note* Diagnosis Pre-op evaluation- Primary Preoperative [...] lobe (HCC)- Primary documented in this encounter [facility] note* Diagnosis Pre-op evaluation- Primary Preoperative [...] rupture (HCC)- Primary documented in this encounter [facility] note* Diagnosis Pre-op evaluation- Primary Preoperative [...] neoplasm of prostate [facility] Diagnosis Pre-op evaluation- Primary Preoperative examination, [...] COPD type (HCC) [facility] Diagnosis Pre-op evaluation- Primary Preoperative examination, [...] right lung (HCC) documented in this encounter [facility] note* Diagnosis Pre-op evaluation- Primary Preoperative [...] or lung (HCC) [facility] Diagnosis Pre-op evaluation- Primary Preoperative examination, [...] Primary Iatrogenic pneumothorax [facility] Diagnosis Pre-op evaluation- Primary Preoperative examination, [...] pneumothorax Iatrogenic pneumothorax [facility] Diagnosis Pre-op evaluation- Primary Preoperative examination, [...] bronchus or lung [facility] Diagnosis Pre-op evaluation- Primary Preoperative examination, [...] malignant neoplasms, colon [facility] Diagnosis Pre-op evaluation- Primary Preoperative examination, [...] COPD type (HCC) [facility] Diagnosis Pre-op evaluation- Primary Preoperative examination, [...] COPD type (HCC) [facility] Diagnosis Pre-op evaluation- Primary Preoperative examination, [...] or lung (HCC) [facility] Diagnosis Pre-op evaluation- Primary Preoperative examination, [...] Pneumothorax, unspecified type [facility] Diagnosis Pre-op evaluation- Primary Preoperative examination, [...] right Other pneumothorax [facility] Diagnosis Pre-op evaluation- Primary Preoperative examination, [...] Pneumothorax, unspecified type [facility] Diagnosis Pre-op evaluation- Primary Preoperative examination, [...] lobe (HCC)- Primary [facility] Diagnosis Pre-op evaluation- Primary Preoperative examination, [...] Pre-procedural laboratory examination [facility] Diagnosis Pre-op evaluation- Primary Preoperative examination, [...] Pre-procedural laboratory examination [facility] Diagnosis Pre-op evaluation- Primary Preoperative examination, [...] Pre-procedural laboratory examination [facility] Diagnosis Pre-op evaluation- Primary Preoperative examination, [...] Pre-procedural laboratory examination [facility] Diagnosis Pre-op evaluation- Primary Preoperative [...] Pre-procedural laboratory examination [facility] Pre-op evaluation- Primary Preoperative [...] without rupture- Primary [facility] Diagnosis Pre-op evaluation- Primary Preoperative examination, [...] Empyema with fistula [facility] Diagnosis Pre-op evaluation- Primary Preoperative examination, [...] Empyema with fistula [facility] Diagnosis Pre-op evaluation- Primary Preoperative examination, [...] right lung (HCC) [facility] Diagnosis Pre-op evaluation- Primary Preoperative examination, [...] fibrillation Other pneumothorax [facility] Diagnosis Pre-op evaluation- Primary Preoperative examination, [...] right lung (HCC) [facility] Diagnosis Pre-op evaluation- Primary Preoperative examination, [...] right lung (HCC) [facility] Diagnosis Pre-op evaluation- Primary Preoperative examination, [...] bronchus or lung documented in this encounter [facility] note* Diagnosis Pre-op evaluation- Primary Preoperative [...] unspecified laterality (HCC) documented in this encounter [facility] note* Diagnosis Pre-op evaluation- Primary Preoperative [...] Tachycardia Tachycardia, unspecified documented in this encounter [facility] note* Diagnosis Pre-op evaluation- Primary Preoperative [...] history of tobacco use, [facility] Squamous cell carcinoma of lung, unspecified laterality (HCC)- Primary documented in this encounter [facility] for referral (narrative)* Diagnostic Procedure Only (Routine) - Authorized Specialty Diagnoses / Procedures Referred By Contac t Referred To Contact US IMAGING Diagnoses Abdominal aortic aneurysm (AAA) without rupture, unspecified part Procedures US DOPPLER AORTA DUP-SCAN ARTL LOLA ABDL/PEL/SCROT&/RPR ORGN LMT Praful Su MD [facility] [place] [address] Us Imaging Referral ID Status Reason Start Date Expiration Date Visits Requested Visits Authorized [id number] Authorized Auto-Generat ed Referral 03/07/2022 04/06/2023 1 1 * Diagnostic Procedure Only (Routine) - Pending Review Specialty Diagnoses / Procedures [facility] Diagnoses Abdominal aortic aneurysm (AAA) without rupture, unspecified part Procedures US ABD AORTA US RETROPERITONEAL REAL TIME W/IMAGE LIMITED Praful Su MD [address] [place] [address] Us Imaging Referral ID Status Reason Start Date Expiration Date Visits Requested Visits Authorized [id number] Pending Review Auto-Generat ed Referral 03/07/2022 04/06/2023 1 1 [facility] for referral (narrative)* Outpatient Procedure (Routine) - Authorized Specialty Diagnoses / Procedures Referred By Contac t Referred To Contact [facility] Diagnoses Abdominal aortic aneurysm (AAA) without rupture, unspecified part Procedures US ABD AORTA COMPLETE VAS LAB DUP-SCAN AORTA IVC ILIAC VASCL/BPGS COMPLETE Pari Ruggiero APRN.CNP [address] [place] [address] [facility] [address] [address] Referral ID Status Reason Start Date Expiration Date Visits Requested Visits Authorized [id number] Authorized Auto-Generat ed Referral 03/16/2022 03/16/2023 1 1 [facility] for referral (narrative)* Outpatient Procedure (Routine) - Authorized Specialty Diagnoses / Procedures Referred By Contac t Referred To Contact [facility] Diagnoses Abdominal aortic aneurysm (AAA) without rupture, unspecified part Procedures US ABD AORTA COMPLETE VAS LAB DUP-SCAN AORTA IVC ILIAC VASCL/BPGS COMPLETE Navid Roberts MD [address] [place] [address] [facility] [address] [address] Referral ID Status Reason Start Date Expiration Date Visits Requested Visits Authorized [id number] Authorized Auto-Generat ed Referral 03/30/2022 03/30/2023 1 1 [facility] for referral (narrative)* Outpatient Procedure (Routine) - Pending Review Specialty Diagnoses / Procedures Referred By Contac t Referred To Contact [facility] Diagnoses Infrarenal abdominal aortic aneurysm (AAA) without rupture (HCC) Procedures US ABD AORTA COMPLETE VAS LAB DUP-SCAN AORTA IVC ILIAC VASCL/BPGS COMPLETE Navid Roberts MD [address] [place] [address] [facility] [address] [address] Referral ID Status Reason Start Date Expiration Date Visits Requested Visits Authorized [id number] Pending Review Auto-Generat ed Referral 04/15/2023 10/13/2023 1 1 [facility] for referral (narrative)* Diagnostic Procedure Only (Routine) - Pending Review Specialty Diagnoses / Procedures Referred By Annia hill Referred To Contact MOLECULAR & FUNCTIONAL IMAGING Diagnoses Lung nodules Procedures NM PET/CT SKULL-THIGH INITIAL PET IMAGING CT ATTENUATION SKULL BASE MID-THIGH Thad Garrett MD [address] [place] [address] Molecular [facility] Functional Imaging [address] [place] [address] Referral ID Status Reason Start Date Expiration Date Visits Requested Visits Authorized [id number] Pending Review Auto-Generat ed Referral 06/08/2023 07/07/2024 1 1 * Outpatient Procedure (Routine) - Authorized Specialty Diagnoses / Procedures Referred By Annia hill Referred To Contact [facility] Diagnoses SOB (shortness of breath) Procedures LUNG DIFFUSION CAPACITY (DLCO) DIFFUSING CAPACITY Thad Garrett MD [address] [place] [address] [facility] [place] [address] [place], [place] [id number] Referral ID Status Reason Start Date Expiration Date Visits Requested Visits Authorized [id number] Authorized Auto-Generat ed Referral 06/08/2023 07/07/2024 1 1 * Outpatient Procedure (Routine) - Authorized Specialty Diagnoses / Procedures Referred By Annia hill Referred To Contact [facility] Diagnoses SOB (shortness of breath) Procedures SPIROMETRY WITH DILATOR IF OBSTRUCTED BRNCDILAT RSPSE SPMTRY PRE&POST-BRNCDILAT ADMN Thad Garrett MD [address] [place] [address] [facility] [place] [address] [place], [place] [id number] Referral ID Status Reason Start Date Expiration Date Visits Requested Visits Authorized [id number] Authorized Auto-Generat ed Referral 06/08/2023 07/07/2024 1 1 [facility] for referral (narrative)* Outpatient Procedure (Routine) - Pending Review Specialty Diagnoses / Procedures Referred By Contac t Referred To Contact [facility] Diagnoses Lung mass Procedures ECG COMPLETE ECG ROUTINE ECG W/LEAST 12 LDS W/I&R Arcadio Hodgson MD [address] [place] [address] [address] Referral ID Status Reason Start Date Expiration Date Visits Requested Visits Authorized [id number] Pending Review Auto-Generat ed Referral 06/12/2023 06/11/2024 1 1 [facility] for referral (narrative)* Outpatient Procedure (Routine) - Authorized Specialty Diagnoses / Procedures Referred By Contac t Referred To Contact [facility] Diagnoses Abdominal aortic aneurysm (AAA) without rupture, unspecified part (HCC) Procedures US ABD AORTA COMPLETE VAS LAB DUP-SCAN AORTA IVC ILIAC VASCL/BPGS COMPLETE Phuong Beasley, MOLECULAR BIOLOGY SCIENTIST.WELL SURVEYING ENGINEER [address] [place] [address] [address] Referral ID Status Reason Start Date Expiration Date Visits Requested Visits Authorized [id number] Authorized Auto-Generat ed Referral 06/06/2023 06/05/2024 1 1 Electronically signed by Phuong Beasley MOLECULAR BIOLOGY SCIENTIST.WELL SURVEYING ENGINEER at 06/06/2023 11:17 AM EDT [facility] for referral (narrative)* Outpatient Procedure (Routine) - Pending Review Specialty Diagnoses / Procedures Referred By Contac t Referred To Contact [facility] Diagnoses Preoperative cardiovascular examination Primary hypertension Procedures ECHO ECHO TTHRC R-T 2D W/WOM-MODE COMPL SPEC&[place] [address] [place] [address] [facility] [address] [place] [address] Referral ID Status Reason Start Date Expiration Date Visits Requested Visits Authorized [id number] Pending Review Auto-Generat ed Referral 09/14/2023 09/13/2024 1 1 [facility] for referral (narrative)* Outpatient Procedure (Routine) - Authorized Specialty Diagnoses / Procedures Referred By Contac t Referred To Contact [facility] Diagnoses Malignant neoplasm of lower lobe of right lung (HCC) Lung nodule Procedures SIX MINUTE WALK CARDIOPULMONARY EXERCISE STRESS Paula Lizama MD, PhD [address] [employer] [address] [place] [address] [facility] [place] [facility] [place] [address] Referral ID Status Reason Start Date Expiration Date Visits Requested Visits Authorized [id number] Authorized Auto-Generat ed Referral 10/11/2023 11/08/2024 1 1 [facility] for referral (narrative)* Outpatient Procedure (Urgent) - New Request Specialty Diagnoses / Procedures Referred By Contac t Referred To Contact [facility] Diagnoses Malignant neoplasm of lower lobe of right lung (HCC) Pre-procedure lab exam Procedures ECG COMPLETE ECG ROUTINE ECG W/LEAST 12 LDS W/I&R Paula Lizama MD, PhD [address] [email or web address] [address] [place] [address] [facility] [address] [place] [address] Referral ID Status Reason Start Date Expiration Date Visits Requested Visits Authorized [id number] New Request Auto-Generat ed Referral 10/27/2023 10/26/2024 1 1 * Diagnostic Procedure Only (Routine) - New Request Specialty Diagnoses / Procedures Referred By Contac t Referred To Contact MOLECULAR & FUNCTIONAL IMAGING Diagnoses Malignant neoplasm of lower lobe of right lung (HCC) Pre-procedure lab exam Encounter for other preprocedural examination Procedures NM CARDIAC PERF STRESS/EXERCISE MYOCARDIAL SPECT MULTIPLE STUDIES Paula Lizama MD, PhD [address] [facility] [address] [place] [address] Molecular [facility] [address] [place] [id number] Referral ID Status Reason Start Date Expiration Date Visits Requested Visits Authorized [id number] New Request Auto-Generat ed Referral 10/27/2023 11/25/2024 1 1 [facility] for referral (narrative)* Outpatient Procedure (Routine) - Authorized Specialty Diagnoses / Procedures Referred By Annia hill Referred To Contact [facility] Diagnoses Infrarenal abdominal aortic aneurysm (AAA) without rupture (HCC) Procedures US ABD AORTA COMPLETE VAS LAB DUP-SCAN AORTA IVC ILIAC VASCL/BPGS COMPLETE Malia Egan DO [address] [place] [address] [facility] [address] [address] Referral ID Status Reason Start Date Expiration Date Visits Requested Visits Authorized [id number] Authorized Auto-Generat ed Referral 06/18/2024 12/18/2024 1 1 [facility] for referral (narrative)* Outpatient Procedure (Routine) - Authorized Specialty Diagnoses / Procedures Referred By Contdivya t Referred To Contact [facility] Diagnoses Chronic obstructive pulmonary disease, unspecified COPD type ([facility]) Procedures SPIROMETRY WITH DILATOR IF OBSTRUCTED BRNCDILAT RSPSE SPMTRY PRE&POST-BRNCDILAT ADMN Romina Kahn, MOLECULAR BIOLOGY SCIENTIST.WELL SURVEYING ENGINEER [address] [place] [address] [facility] [place] [address] [place] [address] Referral ID Status Reason Start Date Expiration Date Visits Requested Visits Authorized [id number] Authorized Auto-Generat ed Referral 02/06/2025 1 1 * Outpatient Procedure (Routine) - Authorized Specialty Diagnoses / Procedures Referred By Contac t Referred To Contact [facility] Diagnoses Chronic obstructive pulmonary disease, unspecified COPD type (HCC) Procedures LUNG DIFFUSION CAPACITY (DLCO) DIFFUSING CAPACITY Romina Kahn APRN.CNP [address] [place] [address] [facility] [place] [address] [place] [address] Referral ID Status Reason Start Date Expiration Date Visits Requested Visits Authorized [id number] Authorized Auto-Generat ed Referral 02/06/2025 1 1 [facility] for visit Narrative* Diagnostic Procedure Only (Routine) - Authorized Specialty Diagnoses / Procedures Referred By Contac t Referred To Contact US IMAGING Diagnoses Abdominal aortic aneurysm (AAA) without rupture, unspecified part Procedures US DOPPLER AORTA DUP-SCAN ARTL LOLA ABDL/PEL/SCROT&/RPR ORGN LMT Praful Su MD [address] [place] [address] Us Imaging Referral ID Status Reason Start Date Expiration Date Visits Requested Visits Authorized [id number] Authorized Auto-Generat ed Referral 03/07/2022 04/06/2023 1 1 [facility] for visit Narrative* Outpatient Procedure (Routine) - Closed Specialty Diagnoses / Procedures Referred By Contac t Referred To Contact [facility] Diagnoses Lung mass Procedures ECG COMPLETE ECG ROUTINE ECG W/LEAST 12 LDS W/I&R Arcadio Hodgson MD [address] [place] [address] [facility] [place] [address] [place] [address] Referral ID Status Reason Start Date Expiration Date V isits Requested Visits Authorized [id number] Closed Auto-Generate d Referral 06/12/2023 06/11/2024 1 1 [facility] for visit Narrative* Diagnostic Procedure Only (Routine) - Closed Specialty Diagnoses / Procedures Referred By Contdivya t Referred To Contact MOLECULAR & FUNCTIONAL IMAGING Diagnoses Lung nodules Procedures NM PET/CT SKULL-THIGH INITIAL PET IMAGING CT ATTENUATION SKULL BASE MID-THIGH Thad Garrett MD [address] [place] [address] Molecular [facility] [address] [place] [address] Referral ID Status Reason Start Date Expiration Date V isits Requested Visits Authorized [id number] Closed Auto-Generate d Referral 06/12/2023 07/12/2023 1 1 [facility] MRI/CT (Routine) - Closed Specialty Diagnoses / Procedures Referred By Annia hill Referred To Contact CT IMAGING Diagnoses Malignant neoplasm of unspecified part of unspecified bronchus or lung (HCC) Procedures CT CHEST W IVCON DIAGNOSTIC COMPUTED TOMOGRAPHY THORAX W/CONTRAST Kevin Patterson MD [address] [place] [address] Phone: tel: fax: CT IMAGING [facility]95 Referral ID Status Reason Start Date Expiration Date V isits Requested Visits Authorized [id number] Closed Auto-Generate d Referral 04/25/2024 06/24/2024 1 1 [facility] Advance Directives No Advanced Directives Records FoundDocuments on File Type Date Recorded Patient Sash Sticker Expl anation Advance Directive(s) 02/22/2017 12:37 PM Advance Directive(s) 04/30/2015 12:05 PM Documents on File Type Date Recorded Patient Sash Sticker Expl anation Advance Directive(s) 11/09/2023 2:13 PM Documents on File Type Date Recorded Patient Sash Sticker Expl anation Advance Directive(s) 11/09/2023 2:13 PM [...] part Procedures CONSULT TO VASCULAR SURGERY OFFICE/OUTPATIENT [facility] 60-74 MINUTES Praful Su MD [address] [place] [id number] Referral ID Status Reason Start Date Expiration Date Visits Requested Visits Authorized [id number] Authorized PCP Requested Referral 03/22/2022 03/22/2023 1 1 Specialty Diagnoses / Procedures Referred By Contac t Referred To Contact CT IMAGING Diagnoses Encounter for other preprocedural examination Procedures CTA CHEST (NONGATED) WO/W IVCON CT ANGIOGRAPHY CHEST W/CONTRAST/NONCONTRAST Phuong Beasley J, MOLECULAR BIOLOGY SCIENTIST.WELL SURVEYING ENGINEER [address] [place] [address] Ct Imaging [place] [address] Referral ID Status Reason Start Date Expiration Date Visits Requested Visits Authorized [id number] Pending Review Auto-Generat ed Referral 04/25/2023 05/24/2024 1 1 Specialty Diagnoses / Procedures Referred By Contac t Referred To Contact CT IMAGING Diagnoses Abdominal aortic aneurysm (AAA) without rupture, unspecified part (HCC) Procedures CTA ABD/PEL LOWER EXTREM W IVCON CTA ABDL AORTA&BI ILIOFEM W/CONTRAST&POSTP Phuong Beasley J, MOLECULAR BIOLOGY SCIENTIST.WELL SURVEYING ENGINEER [address] [place] [phone] [facility] [place] [address] Referral ID Status Reason Start Date Expiration Date Visits Requested Visits Authorized [id number] Pending Review Auto-Generat ed Referral 04/25/2023 05/24/2024 1 1 Referral ID Status Reason Start Date Expiration Date V isits Requested Visits Authorized [id number] Closed Auto-Generate d Referral 05/17/2023 06/16/2023 1 1 Specialty Diagnoses / Procedures Referred By Contac t Referred To Contact Pulmonary Disease Diagnoses Lung nodule Procedures CONSULT TO LUNG NODULE CLINIC Phuong Beasley, MOLECULAR BIOLOGY SCIENTIST.WELL SURVEYING ENGINEER [address] [place] [phone] Referral ID Status Reason Start Date Expiration Date Visits Requested Visits Authorized [id number] Ref Not Required PCP Requested Referral 06/01/2023 05/17/2024 1 1 Specialty Diagnoses / Procedures Referred By Contac t Referred To Contact CT IMAGING Diagnoses Lung mass Procedures CT CHEST WO IVCON DIAGNOSTIC COMPUTED TOMOGRAPHY THORAX W/O CNTRST Thad Garrett MD [address] [place] [address] Ct [facility] [place] [address] Referral ID Status Reason Start Date Expiration Date Visits Requested Visits Authorized [id number] Pending Review Auto-Generat ed Referral 08/28/2023 08/26/2024 1 1 Specialty Diagnoses / Procedures Referred By Contac t Referred To Contact Cardiology Diagnoses Preoperative clearance Procedures CONSULT TO CARDIOLOGY OFFICE/OUTPATIENT [facility] 60 MINUTES Thad Garrett MD [address] [place] [address] Referral ID Status Reason Start Date Expiration Date Visits Requested Visits Authorized [id number] Authorized PCP Requested Referral 09/01/2023 08/31/2024 1 1 Specialty Diagnoses / Procedures Referred By Contac t Referred To Contact Oncology Diagnoses Squamous cell carcinoma of lung, unspecified laterality (HCC) Procedures CONSULT TO ONCOLOGY OFFICE/OUTPATIENT [facility] 60 MINUTES Thad Garrett MD [address] [place] [address] Referral ID Status Reason Start Date Expiration Date Visits Requested Visits Authorized [id number] Authorized PCP Requested Referral 09/22/2023 09/21/2024 1 1 Specialty Diagnoses / Procedures Referred By Contac t Referred To Contact MR IMAGING Diagnoses Squamous cell carcinoma of lung, unspecified laterality (HCC) Malignant neoplasm of lung, unspecified laterality, unspecified part of lung (HCC) Procedures MRI BRAIN WO/W IVCON MRI BRAIN BRAIN STEM W/O W/CONTRAST MATERIAL Kevin Patterson MD [address] [place] [address] Mr Imaging [place] [address] Referral ID Status Reason Start Date Expiration Date Visits Requested Visits Authorized [id number] New Request Auto-Generat ed Referral 10/03/2023 11/01/2024 1 1 Specialty Diagnoses / Procedures Referred By Contac t Referred To Contact Cardiothoracic Surgery Diagnoses Squamous cell carcinoma of lung, unspecified laterality (HCC) Procedures CONSULT TO CARDIOTHORACIC SURGERY Kevin Patterson MD [address] [place] [address] Referral ID Status Reason Start Date Expiration Date Visits Requested Visits Authorized [id number] Ref Not Required PCP Requested Referral 10/10/2023 10/09/2024 1 1 Specialty Diagnoses / Procedures Referred By Contac t Referred To Contact MR IMAGING Diagnoses Malignant neoplasm of lower lobe of right lung (HCC) Procedures MRI BRAIN WO/W IVCON MRI BRAIN BRAIN STEM W/O W/CONTRAST MATERIAL Paula Lizama MD, PhD [address] [place] [address] [address] [place] [address] Mr Imaging [place] [address] Referral ID Status Reason Start Date Expiration Date V isits Requested Visits Authorized [id number] Closed Auto-Generate d Referral 11/07/2023 01/07/2024 1 1 Specialty Diagnoses / Procedures Referred By Contac t Referred To Contact CT IMAGING Diagnoses Squamous cell carcinoma of lung, unspecified laterality (HCC) Procedures CT CHEST WO IVCON DIAGNOSTIC COMPUTED TOMOGRAPHY THORAX W/O CNTRST Kevin Patterson MD [address] [place] [address] Ct [facility] [place] [address] Referral ID Status Reason Start Date Expiration Date Visits Requested Visits Authorized [id number] Pending Review Auto-Generat ed Referral 11/29/2023 12/28/2024 1 1 Specialty Diagnoses / Procedures Referred By Contac t Referred To Contact Radiation Oncology Diagnoses Malignant neoplasm of unspecified part of unspecified bronchus or lung (HCC) Procedures RAD/ONC CONSULT OFFICE/OUTPATIENT NEW [facility] 60 MINUTES Kevin Patterson MD [address] [place] [address] Referral ID Status Reason Start Date Expiration Date Visits Requested Visits Authorized [id number] Authorized PCP Requested Referral 4 12/18/2024 1 1 Specialty Diagnoses / Procedures Referred By Contac t Referred To Contact CT IMAGING Diagnoses Malignant neoplasm of unspecified part of unspecified bronchus or lung (HCC) Procedures CT CHEST W IVCON DIAGNOSTIC COMPUTED TOMOGRAPHY THORAX W/CONTRAST Kevin Patterson MD [address] [place] [address] [place] [address] Referral ID Status Reason Start Date Expiration Date Visits Requested Visits Authorized [id number] New Request Auto-Generat ed Referral 4 01/17/2025 [...] or prosecute any alcohol or drug abuse patient.[facility] the event this information is protected by the Federal Confidentiality of Alcohol and Drug Abuse Patient Records regulations: The Federal rules restrict any use of the information to criminally investigate or prosecute any alcohol or drug abuse patient.[facility] Hospital[facility] the event this information is protected by the Federal Confidentiality of Alcohol and Drug Abuse Patient Records regulations: The Federal rules restrict any use of the information to criminally investigate or prosecute any alcohol or drug abuse patient.[facility] Hospital[facility] the event this information is protected by the Federal Confidentiality of Alcohol and Drug Abuse Patient Records regulations: The Federal rules restrict any use of the information to criminally investigate or prosecute any alcohol or drug abuse patient.[facility] Hospital[facility] the event this information is protected by the Federal Confidentiality of Alcohol and Drug Abuse Patient Records regulations: The Federal rules restrict any use of the information to criminally investigate or prosecute any alcohol or drug abuse patient.[facility] Hospital[facility] the event this information is protected by the Federal Confidentiality of Alcohol and Drug Abuse Patient Records regulations: The Federal rules restrict any use of the information to criminally investigate or prosecute any alcohol or drug abuse patient.[facility] Hospital[facility] the event this information is protected by the Federal Confidentiality of Alcohol and Drug Abuse Patient Records regulations: The Federal rules restrict any use of the information to criminally investigate or prosecute any alcohol or drug abuse patient.[facility] Hospital[facility] the event this information is protected by the Federal Confidentiality of Alcohol and Drug Abuse Patient Records regulations: The Federal rules restrict any use of the information to criminally investigate or prosecute any alcohol or drug abuse patient.[facility] Hospital[facility] the event this information is protected by the Federal Confidentiality of Alcohol and Drug Abuse Patient Records regulations: The Federal rules restrict any use of the information to criminally investigate or prosecute any alcohol or drug abuse patient.[facility] Hospital[facility] the event this information is protected by the Federal Confidentiality of Alcohol and Drug Abuse Patient Records regulations: The Federal rules restrict any use of the information to criminally investigate or prosecute any alcohol or drug abuse patient.[facility] Hospital[facility] the event this information is protected by the Federal Confidentiality of Alcohol and Drug Abuse Patient Records regulations: The Federal rules restrict any use of the information to criminally investigate or prosecute any alcohol or drug abuse patient.[facility] HospitalIn the event this information is protected by the Federal Confidentiality of Alcohol and Drug Abuse Patient Records regulations: The Federal rules restrict any use of the information to criminally investigate or prosecute any alcohol or drug abuse patient.[facility] HospitalIn the event this information is protected by the Federal Confidentiality of Alcohol and Drug Abuse Patient Records regulations: The Federal rules restrict any use of the information to criminally investigate or prosecute any alcohol or drug abuse patient.[facility] HospitalIn the event this information is protected by the Federal Confidentiality of Alcohol and Drug Abuse Patient Records regulations: The Federal rules restrict any use of the information to criminally investigate or prosecute any alcohol or drug abuse patient.[facility] HospitalIn the event this information is protected by the Federal Confidentiality of Alcohol and Drug Abuse Patient Records regulations: The Federal rules restrict any use of the information to criminally investigate or prosecute any alcohol or drug abuse patient.[facility] HospitalIn the event this information is protected by the Federal Confidentiality of Alcohol and Drug Abuse Patient Records regulations: The Federal rules restrict any use of the information to criminally investigate or prosecute any alcohol or drug abuse patient.[facility] HospitalIn the event this information is protected by the Federal Confidentiality of Alcohol and Drug Abuse Patient Records regulations: The Federal rules restrict any use of the information to criminally investigate or prosecute any alcohol or drug abuse patient.[facility] HospitalIn the event this information is protected by the Federal Confidentiality of Alcohol and Drug Abuse Patient Records regulations: The Federal rules restrict any use of the information to criminally investigate or prosecute any alcohol or drug abuse patient.[facility] HospitalIn the event this information is protected by the Federal Confidentiality of Alcohol and Drug Abuse Patient Records regulations: The Federal rules restrict any use of the information to criminally investigate or prosecute any alcohol or drug abuse patient.[facility] HospitalIn the event this information is protected by the Federal Confidentiality of Alcohol and Drug Abuse Patient Records regulations: The Federal rules restrict any use of the information to criminally investigate or prosecute any alcohol or drug abuse patient.[facility] HospitalIn the event this information is protected by the Federal Confidentiality of Alcohol and Drug Abuse Patient Records regulations: The Federal rules restrict any use of the information to criminally investigate or prosecute any alcohol or drug abuse patient.[facility] HospitalIn the event this information is protected by the Federal Confidentiality of Alcohol and Drug Abuse Patient Records regulations: The Federal rules restrict any use of the information to criminally investigate or prosecute any alcohol or drug abuse patient.[facility] HospitalIn the event this information is protected by the Federal Confidentiality of Alcohol and Drug Abuse Patient Records regulations: The Federal rules restrict any use of the information to criminally investigate or prosecute any alcohol or drug abuse patient.[facility] HospitalIn the event this information is protected by the Federal Confidentiality of Alcohol and Drug Abuse Patient Records regulations: The Federal rules restrict any use of the information to criminally investigate or prosecute any alcohol or drug abuse patient.[facility] HospitalIn the event this information is protected by the Federal Confidentiality of Alcohol and Drug Abuse Patient Records regulations: The Federal rules restrict any use of the information to criminally investigate or prosecute any alcohol or drug abuse patient.[facility] HospitalIn the event this information is protected by the Federal Confidentiality of Alcohol and Drug Abuse Patient Records regulations: The Federal rules restrict any use of the information to criminally investigate or prosecute any alcohol or drug abuse patient.[facility] HospitalIn the event this information is protected by the Federal Confidentiality of Alcohol and Drug Abuse Patient Records regulations: The Federal rules restrict any use of the information to criminally investigate or prosecute any alcohol or drug abuse patient.[facility] HospitalIn the event this information is protected by the Federal Confidentiality of Alcohol and Drug Abuse Patient Records regulations: The Federal rules restrict any use of the information to criminally investigate or prosecute any alcohol or drug abuse patient.[facility] HospitalIn the event this information is protected by the Federal Confidentiality of Alcohol and Drug Abuse Patient Records regulations: The Federal rules restrict any use of the information to criminally investigate or prosecute any alcohol or drug abuse patient.[facility] HospitalIn the event this information is protected by the Federal Confidentiality of Alcohol and Drug Abuse Patient Records regulations: The Federal rules restrict any use of the information to criminally investigate or prosecute any alcohol or drug abuse patient.[facility] HospitalIn the event this information is protected by the Federal Confidentiality of Alcohol and Drug Abuse Patient Records regulations: The Federal rules restrict any use of the information to criminally investigate or prosecute any alcohol or drug abuse patient.[facility] HospitalIn the event this information is protected by the Federal Confidentiality of Alcohol and Drug Abuse Patient Records regulations: The Federal rules restrict any use of the information to criminally investigate or prosecute any alcohol or drug abuse patient.[facility] HospitalIn the event this information is protected by the Federal Confidentiality of Alcohol and Drug Abuse Patient Records regulations: The Federal rules restrict any use of the information to criminally investigate or prosecute any alcohol or drug abuse patient.[facility] HospitalIn the event this information is protected by the Federal Confidentiality of Alcohol and Drug Abuse Patient Records regulations: The Federal rules restrict any use of the information to criminally investigate or prosecute any alcohol or drug abuse patient.[facility] HospitalIn the event this information is protected by the Federal Confidentiality of Alcohol and Drug Abuse Patient Records regulations: The Federal rules restrict any use of the information to criminally investigate or prosecute any alcohol or drug abuse patient.[facility] HospitalIn the event this information is protected by the Federal Confidentiality of Alcohol and Drug Abuse Patient Records regulations: The Federal rules restrict any use of the information to criminally investigate or prosecute any alcohol or drug abuse patient.[facility] HospitalIn the event this information is protected by the Federal Confidentiality of Alcohol and Drug Abuse Patient Records regulations: The Federal rules restrict any use of the information to criminally investigate or prosecute any alcohol or drug abuse patient.[facility] HospitalIn the event this information is protected by the Federal Confidentiality of Alcohol and Drug Abuse Patient Records regulations: The Federal rules restrict any use of the information to criminally investigate or prosecute any alcohol or drug abuse patient.[facility] HospitalIn the event this information is protected by the Federal Confidentiality of Alcohol and Drug Abuse Patient Records regulations: The Federal rules restrict any use of the information to criminally investigate or prosecute any alcohol or drug abuse patient.[facility] HospitalIn the event this information is protected by the Federal Confidentiality of Alcohol and Drug Abuse Patient Records regulations: The Federal rules restrict any use of the information to criminally investigate or prosecute any alcohol or drug abuse patient.[facility] HospitalIn the event this information is protected by the Federal Confidentiality of Alcohol and Drug Abuse Patient Records regulations: The Federal rules restrict any use of the information to criminally investigate or prosecute any alcohol or drug abuse patient.[facility] HospitalIn the event this information is protected by the Federal Confidentiality of Alcohol and Drug Abuse Patient Records regulations: The Federal rules restrict any use of the information to criminally investigate or prosecute any alcohol or drug abuse patient.[facility] HospitalIn the event this information is protected by the Federal Confidentiality of Alcohol and Drug Abuse Patient Records regulations: The Federal rules restrict any use of the information to criminally investigate or prosecute any alcohol or drug abuse patient.[facility] HospitalIn the event this information is protected by the Federal Confidentiality of Alcohol and Drug Abuse Patient Records regulations: The Federal rules restrict any use of the information to criminally investigate or prosecute any alcohol or drug abuse patient.[facility] HospitalIn the event this information is protected by the Federal Confidentiality of Alcohol and Drug Abuse Patient Records regulations: The Federal rules restrict any use of the information to criminally investigate or prosecute any alcohol or drug abuse patient.[facility] HospitalIn the event this information is protected by the Federal Confidentiality of Alcohol and Drug Abuse Patient Records regulations: The Federal rules restrict any use of the information to criminally investigate or prosecute any alcohol or drug abuse patient.[facility] HospitalIn the event this information is protected by the Federal Confidentiality of Alcohol and Drug Abuse Patient Records regulations: The Federal rules restrict any use of the information to criminally investigate or prosecute any alcohol or drug abuse patient.[facility] HospitalIn the event this information is protected by the Federal Confidentiality of Alcohol and Drug Abuse Patient Records regulations: The Federal rules restrict any use of the information to criminally investigate or prosecute any alcohol or drug abuse patient.[facility] HospitalIn the event this information is protected by the Federal Confidentiality of Alcohol and Drug Abuse Patient Records regulations: The Federal rules restrict any use of the information to criminally investigate or prosecute any alcohol or drug abuse patient.[facility] HospitalIn the event this information is protected by the Federal Confidentiality of Alcohol and Drug Abuse Patient Records regulations: The Federal rules restrict any use of the information to criminally investigate or prosecute any alcohol or drug abuse patient.[facility] HospitalIn the event this information is protected by the Federal Confidentiality of Alcohol and Drug Abuse Patient Records regulations: The Federal rules restrict any use of the information to criminally investigate or prosecute any alcohol or drug abuse patient.[facility] HospitalIn the event this information is protected by the Federal Confidentiality of Alcohol and Drug Abuse Patient Records regulations: The Federal rules restrict any use of the information to criminally investigate or prosecute any alcohol or drug abuse patient.[facility] HospitalIn the event this information is protected by the Federal Confidentiality of Alcohol and Drug Abuse Patient Records regulations: The Federal rules restrict any use of the information to criminally investigate or prosecute any alcohol or drug abuse patient.[facility] HospitalIn the event this information is protected by the Federal Confidentiality of Alcohol and Drug Abuse Patient Records regulations: The Federal rules restrict any use of the information to criminally investigate or prosecute any alcohol or drug abuse patient.[facility] HospitalIn the event this information is protected by the Federal Confidentiality of Alcohol and Drug Abuse Patient Records regulations: The Federal rules restrict any use of the information to criminally investigate or prosecute any alcohol or drug abuse patient.[facility] HospitalIn the event this information is protected by the Federal Confidentiality of Alcohol and Drug Abuse Patient Records regulations: The Federal rules restrict any use of the information to criminally investigate or prosecute any alcohol or drug abuse patient.[facility] HospitalIn the event this information is protected by the Federal Confidentiality of Alcohol and Drug Abuse Patient Records regulations: The Federal rules restrict any use of the information to criminally investigate or prosecute any alcohol or drug abuse patient.[facility] HospitalIn the event this information is protected by the Federal Confidentiality of Alcohol and Drug Abuse Patient Records regulations: The Federal rules restrict any use of the information to criminally investigate or prosecute any alcohol or drug abuse patient.[facility] HospitalIn the event this information is protected by the Federal Confidentiality of Alcohol and Drug Abuse Patient Records regulations: The Federal rules restrict any use of the information to criminally investigate or prosecute any alcohol or drug abuse patient.[facility] HospitalIn the event this information is protected by the Federal Confidentiality of Alcohol and Drug Abuse Patient Records regulations: The Federal rules restrict any use of the information to criminally investigate or prosecute any alcohol or drug abuse patient.[facility] HospitalIn the event this information is protected by the Federal Confidentiality of Alcohol and Drug Abuse Patient Records regulations: The Federal rules restrict any use of the information to criminally investigate or prosecute any alcohol or drug abuse patient.[facility] HospitalIn the event this information is protected by the Federal Confidentiality of Alcohol and Drug Abuse Patient Records regulations: The Federal rules restrict any use of the information to criminally investigate or prosecute any alcohol or drug abuse patient.[facility] HospitalIn the event this information is protected by the Federal Confidentiality of Alcohol and Drug Abuse Patient Records regulations: The Federal rules restrict any use of the information to criminally investigate or prosecute any alcohol or drug abuse patient.[facility] HospitalIn the event this information is protected by the Federal Confidentiality of Alcohol and Drug Abuse Patient Records regulations: The Federal rules restrict any use of the information to criminally investigate or prosecute any alcohol or drug abuse patient.[facility] HospitalIn the event this information is protected by the Federal Confidentiality of Alcohol and Drug Abuse Patient Records regulations: The Federal rules restrict any use of the information to criminally investigate or prosecute any alcohol or drug abuse patient.[facility] HospitalIn the event this information is protected by the Federal Confidentiality of Alcohol and Drug Abuse Patient Records regulations: The Federal rules restrict any use of the information to criminally investigate or prosecute any alcohol or drug abuse patient.[facility] HospitalIn the event this information is protected by the Federal Confidentiality of Alcohol and Drug Abuse Patient Records regulations: The Federal rules restrict any use of the information to criminally investigate or prosecute any alcohol or drug abuse patient.[facility] HospitalIn the event this information is protected by the Federal Confidentiality of Alcohol and Drug Abuse Patient Records regulations: The Federal rules restrict any use of the information to criminally investigate or prosecute any alcohol or drug abuse patient.[facility] HospitalIn the event this information is protected by the Federal Confidentiality of Alcohol and Drug Abuse Patient Records regulations: The Federal rules restrict any use of the information to criminally investigate or prosecute any alcohol or drug abuse patient.[facility] HospitalIn the event this information is protected by the Federal Confidentiality of Alcohol and Drug Abuse Patient Records regulations: The Federal rules restrict any use of the information to criminally investigate or prosecute any alcohol or drug abuse patient.[facility] HospitalIn the event this information is protected by the Federal Confidentiality of Alcohol and Drug Abuse Patient Records regulations: The Federal rules restrict any use of the information to criminally investigate or prosecute any alcohol or drug abuse patient.[facility] HospitalIn the event this information is protected by the Federal Confidentiality of Alcohol and Drug Abuse Patient Records regulations: The Federal rules restrict any use of the information to criminally investigate or prosecute any alcohol or drug abuse patient.[facility] HospitalIn the event this information is protected by the Federal Confidentiality of Alcohol and Drug Abuse Patient Records regulations: The Federal rules restrict any use of the information to criminally investigate or prosecute any alcohol or drug abuse patient.[facility] HospitalIn the event this information is protected by the Federal Confidentiality of Alcohol and Drug Abuse Patient Records regulations: The Federal rules restrict any use of the information to criminally investigate or prosecute any alcohol or drug abuse patient.[facility] HospitalIn the event this information is protected by the Federal Confidentiality of Alcohol and Drug Abuse Patient Records regulations: The Federal rules restrict any use of the information to criminally investigate or prosecute any alcohol or drug abuse patient.[facility] HospitalIn the event this information is protected by the Federal Confidentiality of Alcohol and Drug Abuse Patient Records regulations: The Federal rules restrict any use of the information to criminally investigate or prosecute any alcohol or drug abuse patient.[facility] HospitalIn the event this information is protected by the Federal Confidentiality of Alcohol and Drug Abuse Patient Records regulations: The Federal rules restrict any use of the information to criminally investigate or prosecute any alcohol or drug abuse patient.[facility] HospitalIn the event this information is protected by the Federal Confidentiality of Alcohol and Drug Abuse Patient Records regulations: The Federal rules restrict any use of the information to criminally investigate or prosecute any alcohol or drug abuse patient.[facility] HospitalIn the event this information is protected by the Federal Confidentiality of Alcohol and Drug Abuse Patient Records regulations: The Federal rules restrict any use of the information to criminally investigate or prosecute any alcohol or drug abuse patient.[facility] HospitalIn the event this information is protected by the Federal Confidentiality of Alcohol and Drug Abuse Patient Records regulations: The Federal rules restrict any use of the information to criminally investigate or prosecute any alcohol or drug abuse patient.[facility] HospitalIn the event this information is protected by the Federal Confidentiality of Alcohol and Drug Abuse Patient Records regulations: The Federal rules restrict any use of the information to criminally investigate or prosecute any alcohol or drug abuse patient.[facility] HospitalIn the event this information is protected by the Federal Confidentiality of Alcohol and Drug Abuse Patient Records regulations: The Federal rules restrict any use of the information to criminally investigate or prosecute any alcohol or drug abuse patient.[facility] HospitalIn the event this information is protected by the Federal Confidentiality of Alcohol and Drug Abuse Patient Records regulations: The Federal rules restrict any use of the information to criminally investigate or prosecute any alcohol or drug abuse patient.[facility] HospitalIn the event this information is protected by the Federal Confidentiality of Alcohol and Drug Abuse Patient Records regulations: The Federal rules restrict any use of the information to criminally investigate or prosecute any alcohol or drug abuse patient.[facility] HospitalIn the event this information is protected by the Federal Confidentiality of Alcohol and Drug Abuse Patient Records regulations: The Federal rules restrict any use of the information to criminally investigate or prosecute any alcohol or drug abuse patient.[facility] HospitalIn the event this information is protected by the Federal Confidentiality of Alcohol and Drug Abuse Patient Records regulations: The Federal rules restrict any use of the information to criminally investigate or prosecute any alcohol or drug abuse patient.[facility] HospitalIn the event this information is protected by the Federal Confidentiality of Alcohol and Drug Abuse Patient Records regulations: The Federal rules restrict any use of the information to criminally investigate or prosecute any alcohol or drug abuse patient.[facility] HospitalIn the event this information is protected by the Federal Confidentiality of Alcohol and Drug Abuse Patient Records regulations: The Federal rules restrict any use of the information to criminally investigate or prosecute any alcohol or drug abuse patient.[facility] HospitalIn the event this information is protected by the Federal Confidentiality of Alcohol and Drug Abuse Patient Records regulations: The Federal rules restrict any use of the information to criminally investigate or prosecute any alcohol or drug abuse patient.[facility] HospitalIn the event this information is protected by the Federal Confidentiality of Alcohol and Drug Abuse Patient Records regulations: The Federal rules restrict any use of the information to criminally investigate or prosecute any alcohol or drug abuse patient.[facility] HospitalIn the event this information is protected by the Federal Confidentiality of Alcohol and Drug Abuse Patient Records regulations: The Federal rules restrict any use of the information to criminally investigate or prosecute any alcohol or drug abuse patient.[facility] HospitalIn the event this information is protected by the Federal Confidentiality of Alcohol and Drug Abuse Patient Records regulations: The Federal rules restrict any use of the information to criminally investigate or prosecute any alcohol or drug abuse patient.[facility] HospitalIn the event this information is protected by the Federal Confidentiality of Alcohol and Drug Abuse Patient Records regulations: The Federal rules restrict any use of the information to criminally investigate or prosecute any alcohol or drug abuse patient.[facility] HospitalIn the event this information is protected by the Federal Confidentiality of Alcohol and Drug Abuse Patient Records regulations: The Federal rules restrict any use of the information to criminally investigate or prosecute any alcohol or drug abuse patient.[facility] HospitalIn the event this information is protected by the Federal Confidentiality of Alcohol and Drug Abuse Patient Records regulations: The Federal rules restrict any use of the information to criminally investigate or prosecute any alcohol or drug abuse patient.[facility] HospitalIn the event this information is protected by the Federal Confidentiality of Alcohol and Drug Abuse Patient Records regulations: The Federal rules restrict any use of the information to criminally investigate or prosecute any alcohol or drug abuse patient.[facility] HospitalIn the event this information is protected by the Federal Confidentiality of Alcohol and Drug Abuse Patient Records regulations: The Federal rules restrict any use of the information to criminally investigate or prosecute any alcohol or drug abuse patient.[facility] HospitalIn the event this information is protected by the Federal Confidentiality of Alcohol and Drug Abuse Patient Records regulations: The Federal rules restrict any use of the information to criminally investigate or prosecute any alcohol or drug abuse patient.[facility] HospitalIn the event this information is protected by the Federal Confidentiality of Alcohol and Drug Abuse Patient Records regulations: The Federal rules restrict any use of the information to criminally investigate or prosecute any alcohol or drug abuse patient.[facility] HospitalIn the event this information is protected by the Federal Confidentiality of Alcohol and Drug Abuse Patient Records regulations: The Federal rules restrict any use of the information to criminally investigate or prosecute any alcohol or drug abuse patient.[facility] HospitalIn the event this information is protected by the Federal Confidentiality of Alcohol and Drug Abuse Patient Records regulations: The Federal rules restrict any use of the information to criminally investigate or prosecute any alcohol or drug abuse patient.[facility] HospitalIn the event this information is protected by the Federal Confidentiality of Alcohol and Drug Abuse Patient Records regulations: The Federal rules restrict any use of the information to criminally investigate or prosecute any alcohol or drug abuse patient.[facility] HospitalIn the event this information is protected by the Federal Confidentiality of Alcohol and Drug Abuse Patient Records regulations: The Federal rules restrict any use of the information to criminally investigate or prosecute any alcohol or drug abuse patient.[facility] HospitalIn the event this information is protected by the Federal Confidentiality of Alcohol and Drug Abuse Patient Records regulations: The Federal rules restrict any use of the information to criminally investigate or prosecute any alcohol or drug abuse patient.[facility] HospitalIn the event this information is protected by the Federal Confidentiality of Alcohol and Drug Abuse Patient Records regulations: The Federal rules restrict any use of the information to criminally investigate or prosecute any alcohol or drug abuse patient.[facility] HospitalIn the event this information is protected by the Federal Confidentiality of Alcohol and Drug Abuse Patient Records regulations: The Federal rules restrict any use of the information to criminally investigate or prosecute any alcohol or drug abuse patient.[facility] HospitalIn the event this information is protected by the Federal Confidentiality of Alcohol and Drug Abuse Patient Records regulations: The Federal rules restrict any use of the information to criminally investigate or prosecute any alcohol or drug abuse patient.[facility] HospitalIn the event this information is protected by the Federal Confidentiality of Alcohol and Drug Abuse Patient Records regulations: The Federal rules restrict any use of the information to criminally investigate or prosecute any alcohol or drug abuse patient.[facility] HospitalIn the event this information is protected by the Federal Confidentiality of Alcohol and Drug Abuse Patient Records regulations: The Federal rules restrict any use of the information to criminally investigate or prosecute any alcohol or drug abuse patient.[facility] HospitalIn the event this information is protected by the Federal Confidentiality of Alcohol and Drug Abuse Patient Records regulations: The Federal rules restrict any use of the information to criminally investigate or prosecute any alcohol or drug abuse patient.[facility] HospitalIn the event this information is protected by the Federal Confidentiality of Alcohol and Drug Abuse Patient Records regulations: The Federal rules restrict any use of the information to criminally investigate or prosecute any alcohol or drug abuse patient.[facility] HospitalIn the event this information is protected by the Federal Confidentiality of Alcohol and Drug Abuse Patient Records regulations: The Federal rules restrict any use of the information to criminally investigate or prosecute any alcohol or drug abuse patient.[facility] HospitalIn the event this information is protected by the Federal Confidentiality of Alcohol and Drug Abuse Patient Records regulations: The Federal rules restrict any use of the information to criminally investigate or prosecute any alcohol or drug abuse patient.[facility] HospitalIn the event this information is protected by the Federal Confidentiality of Alcohol and Drug Abuse Patient Records regulations: The Federal rules restrict any use of the information to criminally investigate or prosecute any alcohol or drug abuse patient.[facility] HospitalIn the event this information is protected by the Federal Confidentiality of Alcohol and Drug Abuse Patient Records regulations: The Federal rules restrict any use of the information to criminally investigate or prosecute any alcohol or drug abuse patient.[facility] HospitalIn the event this information is protected by the Federal Confidentiality of Alcohol and Drug Abuse Patient Records regulations: The Federal rules restrict any use of the information to criminally investigate or prosecute any alcohol or drug abuse patient.[facility] HospitalIn the event this information is protected by the Federal Confidentiality of Alcohol and Drug Abuse Patient Records regulations: The Federal rules restrict any use of the information to criminally investigate or prosecute any alcohol or drug abuse patient.[facility] HospitalIn the event this information is protected by the Federal Confidentiality of Alcohol and Drug Abuse Patient Records regulations: The Federal rules restrict any use of the information to criminally investigate or prosecute any alcohol or drug abuse patient.[facility] HospitalIn the event this information is protected by the Federal Confidentiality of Alcohol and Drug Abuse Patient Records regulations: The Federal rules restrict any use of the information to criminally investigate or prosecute any alcohol or drug abuse patient.[facility] HospitalIn the event this information is protected by the Federal Confidentiality of Alcohol and Drug Abuse Patient Records regulations: The Federal rules restrict any use of the information to criminally investigate or prosecute any alcohol or drug abuse patient.[facility] HospitalIn the event this information is protected by the Federal Confidentiality of Alcohol and Drug Abuse Patient Records regulations: The Federal rules restrict any use of the information to criminally investigate or prosecute any alcohol or drug abuse patient.[facility] HospitalIn the event this information is protected by the Federal Confidentiality of Alcohol and Drug Abuse Patient Records regulations: The Federal rules restrict any use of the information to criminally investigate or prosecute any alcohol or drug abuse patient.[facility] HospitalIn the event this information is protected by the Federal Confidentiality of Alcohol and Drug Abuse Patient Records regulations: The Federal rules restrict any use of the information to criminally investigate or prosecute any alcohol or drug abuse patient.[facility] HospitalIn the event this information is protected by the Federal Confidentiality of Alcohol and Drug Abuse Patient Records regulations: The Federal rules restrict any use of the information to criminally investigate or prosecute any alcohol or drug abuse patient.[facility] HospitalIn the event this information is protected by the Federal Confidentiality of Alcohol and Drug Abuse Patient Records regulations: The Federal rules restrict any use of the information to criminally investigate or prosecute any alcohol or drug abuse patient.[facility] HospitalIn the event this information is protected by the Federal Confidentiality of Alcohol and Drug Abuse Patient Records regulations: The Federal rules restrict any use of the information to criminally investigate or prosecute any alcohol or drug abuse patient.[facility] HospitalIn the event this information is protected by the Federal Confidentiality of Alcohol and Drug Abuse Patient Records regulations: The Federal rules restrict any use of the information to criminally investigate or prosecute any alcohol or drug abuse patient.[facility] HospitalIn the event this information is protected by the Federal Confidentiality of Alcohol and Drug Abuse Patient Records regulations: The Federal rules restrict any use of the information to criminally investigate or prosecute any alcohol or drug abuse patient.[facility] HospitalIn the event this information is protected by the Federal Confidentiality of Alcohol and Drug Abuse Patient Records regulations: The Federal rules restrict any use of the information to criminally investigate or prosecute any alcohol or drug abuse patient.[facility] HospitalIn the event this information is protected by the Federal Confidentiality of Alcohol and Drug Abuse Patient Records regulations: The Federal rules restrict any use of the information to criminally investigate or prosecute any alcohol or drug abuse patient.[facility] HospitalIn the event this information is protected by the Federal Confidentiality of Alcohol and Drug Abuse Patient Records regulations: The Federal rules restrict any use of the information to criminally investigate or prosecute any alcohol or drug abuse patient.[facility] HospitalIn the event this information is protected by the Federal Confidentiality of Alcohol and Drug Abuse Patient Records regulations: The Federal rules restrict any use of the information to criminally investigate or prosecute any alcohol or drug abuse patient.[facility] HospitalIn the event this information is protected by the Federal Confidentiality of Alcohol and Drug Abuse Patient Records regulations: The Federal rules restrict any use of the information to criminally investigate or prosecute any alcohol or drug abuse patient.[facility] HospitalIn the event this information is protected by the Federal Confidentiality of Alcohol and Drug Abuse Patient Records regulations: The Federal rules restrict any use of the information to criminally investigate or prosecute any alcohol or drug abuse patient.[facility] HospitalIn the event this information is protected by the Federal Confidentiality of Alcohol and Drug Abuse Patient Records regulations: The Federal rules restrict any use of the information to criminally investigate or prosecute any alcohol or drug abuse patient.[facility] HospitalIn the event this information is protected by the Federal Confidentiality of Alcohol and Drug Abuse Patient Records regulations: The Federal rules restrict any use of the information to criminally investigate or prosecute any alcohol or drug abuse patient.[facility] HospitalIn the event this information is protected by the Federal Confidentiality of Alcohol and Drug Abuse Patient Records regulations: The Federal rules restrict any use of the information to criminally investigate or prosecute any alcohol or drug abuse patient.[facility] HospitalIn the event this information is protected by the Federal Confidentiality of Alcohol and Drug Abuse Patient Records regulations: The Federal rules restrict any use of the information to criminally investigate or prosecute any alcohol or drug abuse patient.[facility] HospitalIn the event this information is protected by the Federal Confidentiality of Alcohol and Drug Abuse Patient Records regulations: The Federal rules restrict any use of the information to criminally investigate or prosecute any alcohol or drug abuse patient.[facility] Reason for Visit (unrecogniz ed section and content) Reason Comments Follow Up Lung Cancer Specialty Diagnoses / Procedures Referred By Contdivya t Referred To Contact Oncology Diagnoses Squamous cell carcinoma of lung, unspecified laterality (HCC) Procedures CONSULT TO ONCOLOGY OFFICE/OUTPATIENT [facility] 60 MINUTES Thad Garrett MD [facility] [address] Referral ID Status Reason Start Date Expiration Date V isits Requested Visits Authorized [id number] Closed PCP Requested Referral 09/22/2023 09/21/2024 1 [...] MDM 60-74 MINUTES Praful Su MD [address] [id number] Referral ID Status Reason Start Date Expiration Date V isits Requested Visits Authorized [id number] Closed PCP Requested Referral 03/22/2022 03/22/2023 1 [...] ABDL AORTA&BI ILIOFEM W/CONTRAST&POSTP RamosPhuong yo J, MOLECULAR BIOLOGY SCIENTIST.WELL SURVEYING ENGINEER [id number] [place] [address] Referral ID Status Reason Start Date Expiration Date V isits Requested Visits Authorized [id number] Closed Auto-Generate d Referral 05/17/2023 06/16/2023 1 1 Specialty Diagnoses / Procedures Referred By Contac t Referred To Contact CT IMAGING Diagnoses Encounter for other preprocedural examination Procedures CTA CHEST (NONGATED) WO/W IVCON CT ANGIOGRAPHY CHEST W/CONTRAST/NONCONTRAST Phuong Beasley J, MOLECULAR BIOLOGY SCIENTIST.WELL SURVEYING ENGINEER [phone] [facility] [place] [address] Referral ID Status Reason Start Date Expiration Date V isits Requested Visits Authorized [id number] Closed Auto-Generate d Referral 05/17/2023 06/16/2023 1 1 Reason Comments Refill Request Reason Comments Consult New patient- Lung No dule Reason Comments Bronchoscopy Scheduling Reason Comments Radiology NM Specialty Diagnoses / Procedures Referred By Tayoac t Referred To Contact Radiology / RADIO PET CT MOBILE PICKETT Diagnoses Lung nodules [R91.8] Procedures INJECTION PET CT Thad Garrett MD [address] [place] [address] [facility] [address] [place] [address] Referral ID Status Reason Start Date Expiration Date Visits Re quested Visits Authorized [id number] Closed 06/19/2023 09/17/2023 1 1 Reason Comments Results Post Bronchoscopy no te Reason Comments Follow Up CTA- 05/17/23 Reason Comments Spirometry Specialty Diagnoses / Procedures Referred By Annia t Referred To Contact [facility] Diagnoses SOB (shortness of breath) Procedures SPIROMETRY WITH DILATOR IF OBSTRUCTED BRNCDILAT RSPSE SPMTRY PRE&POST-BRNCDILAT ADMN Thad Garrett MD [address] [place] [address] [facility] [place] [address] [place], [place] [id number] Referral ID Status Reason Start Date Expiration Date V isits Requested Visits Authorized [id number] Closed Auto-Generate d Referral 06/08/2023 07/07/2024 1 1 Specialty Diagnoses / Procedures Referred By Tayoac t Referred To Contact [facility] Diagnoses SOB (shortness of breath) Procedures LUNG DIFFUSION CAPACITY (DLCO) DIFFUSING CAPACITY Thad Garrett MD [address] [place] [address] [facility] [place] [facility] [address] [place] [id number] Referral ID Status Reason Start Date Expiration Date V isits Requested Visits Authorized [id number] Closed Auto-Generate d Referral 06/08/2023 07/07/2024 1 1 Reason Comments Test Results Reason Comments Med Change Request Specialty Diagnoses / Procedures Referred By Tayoac t Referred To Contact CT IMAGING Diagnoses Lung mass Procedures CT CHEST WO IVCON DIAGNOSTIC COMPUTED TOMOGRAPHY THORAX W/O CNTRST Thad Garrett MD [address] [place] [address] Ct Imaging [place] [address] Referral ID Status Reason Start Date Expiration Date V isits Requested Visits Authorized [id number] Closed Auto-Generate d Referral 08/28/2023 09/27/2023 1 [...] CARDIOPULMONARY EXERCISE STRESS Paula Lizama MD, PhD [email or web address] [place] [address] [facility] [place] [facility] [address] [place], [place] [address] [id number] Referral ID Status Reason Start Date Expiration Date V isits Requested Visits Authorized [id number] Closed Auto-Generate d Referral 10/11/2023 11/08/2024 1 [...] SPECT MULTIPLE STUDIES Paula Lizama MD, PhD [email or web address] [place], [place] [id number] Molecular & Functional Imaging [address] [place] [address] Referral ID Status Reason Start Date Expiration Date V isits Requested Visits Authorized [id number] Closed Auto-Generate d Referral 11/09/2023 01/09/2024 1 1 Reason Comments Radiology MRI Specialty Diagnoses / Procedures Referred By Contac t Referred To Contact MR IMAGING Diagnoses Malignant neoplasm of lower lobe of right lung (HCC) Procedures MRI BRAIN WO/W IVCON MRI BRAIN BRAIN STEM W/O W/CONTRAST MATERIAL Paula Lizama MD, PhD [email or web address] [place] [address] Mr Imaging [place] [address] Referral ID Status Reason Start Date Expiration Date V isits Requested Visits Authorized [id number] Closed Auto-Generate d Referral 11/07/2023 01/07/2024 1 1 Reason Comments Research IRB [id number] Reason Onset Date Comments Transition Of Care 11/20/2023 [facility] 11/19/2023 - Initial outreach Reason Comments Follow Up Phone Call RC follow up call f irst attempt. Reason Comments Post-Op Visit Specialty Diagnoses / Procedures Referred By Annia t Referred To Contact CT IMAGING Diagnoses Squamous cell carcinoma of lung, unspecified laterality (HCC) Procedures CT CHEST WO IVCON DIAGNOSTIC COMPUTED TOMOGRAPHY THORAX W/O CNTRST Kevin Patterson MD [address] [place] [address] Ct Imaging [place] [address] Referral ID Status Reason Start Date Expiration Date V isits Requested Visits Authorized [id number] Closed Auto-Generate d Referral 12/09/2023 03/10/2024 1 [...] or lung (HCC) Procedures RAD/ONC CONSULT OFFICE/OUTPATIENT [facility] 60 MINUTES Kevin Patterson MD [address] [place] [address] Referral ID Status Reason Start Date Expiration Date V isits Requested Visits Authorized [id number] Closed PCP Requested Referral 12/19/2023 12/18/2024 1 1 Reason Comments Radio Gen RMP Radiology Service Pr ogress NotePATIENT NAME: Stevie SanchezMRN: [id number] OF SERVICE: February 01, 2024TIME: 12:36 PMPATIENT [...] Department Utilization Population Health Navigation Outreach 02/02/2024 [facility] - ED follow up Reason Onset Date Comments Population Health Navigation Outreach 02/29/2024 Russ Vela Reason Comments Lung Cancer Reason Comments Opened In Error Specialty Diagnoses / Procedures Referred By Contac t Referred To Contact [facility] Diagnoses Chronic obstructive pulmonary disease, unspecified COPD type (HCC) Procedures LUNG DIFFUSION CAPACITY (DLCO) DIFFUSING CAPACITY Romina Kahn, MOLECULAR BIOLOGY SCIENTIST.WELL SURVEYING ENGINEER [address] [place] [address] Phone: tel: fax: [facility] [place] [phone] Referral ID Status Reason Start Date Expiration Date V isits Requested Visits Authorized [id number] Closed Auto-Generate d Referral 01/08/2024 02/06/2025 1 1 Specialty Diagnoses / Procedures Referred By Contac t Referred To Contact [facility] Diagnoses Chronic obstructive pulmonary disease, unspecified COPD type (HCC) Procedures SPIROMETRY WITH DILATOR IF OBSTRUCTED BRNCDILAT RSPSE SPMTRY PRE&POST-BRNCDILAT ADMN Romina Kahn, MOLECULAR BIOLOGY SCIENTIST.WELL SURVEYING ENGINEER [address] [place] [address] Phone: tel: fax: [place] [address] Referral ID Status Reason Start Date Expiration Date V isits Requested Visits Authorized [id number] Closed Auto-Generate d Referral 01/08/2024 02/06/2025 1 [...] laterality (HCC) Procedures CONSULT TO ONCOLOGY OFFICE/OUTPATIENT [facility] 60 MINUTES Thad Garrett MD [address] [address] Phone: tel: fax: Referral ID Status Reason Start Date Expiration Date V isits Requested Visits Authorized [id number] Closed PCP Requested Referral 09/22/2023 09/21/2024 1 1 Reason Onset Date Comments Population Health Navigation Outreach 10/25/2024 [employer] [place] Reason Comments CoPat Start Care Teams (unrecognized sec tion and content) Skin Diver Relationship Specialty Start Date End Date Praful Su MD [address] [place] [address] PCP - General Family Practice 04/15/10 Don Lara MD [address] [place] [address] Referring Urology 10/15/20 Skin Diver Relationship Specialty Start Date End Date Praful Su MD [address] [place] [address] PCP - General Family Practice 04/15/10 Don Lara MD [address] [place] [address] Referring Urology 10/15/20 Skin Diver Relationship Specialty Start Date End Date Praful Su MD [address] [place] [address] PCP - General Family Practice 04/15/10 Don Lara MD [address] [place] [address] Referring Urology 10/15/20 Skin Diver Relationship Specialty Start Date End Date Praful Su MD [address] [place] [address] PCP - General Family Practice 04/15/10 Don Lara MD [address] [place] [address] Referring Urology 10/15/20 Skin Diver Relationship Specialty Start Date End Date Praful Su MD [address] [place] [address] PCP - General Family Medicine 04/15/10 Don Lara MD [address] [place] [address] Referring Urology 10/15/20 Skin Diver Relationship Specialty Start Date End Date Praful uS MD [address] [place] [address] PCP - General Family Medicine 04/15/10 Don Lara MD [address] [place] [address] Referring Urology 10/15/20 Skin Diver Relationship Specialty Start Date End Date Praful Su MD [address] [place] [address] PCP - General Family Medicine 04/15/10 Don Lara MD [address] [place] [address] Referring Urology 10/15/20 Skin Diver Relationship Specialty Start Date End Date Praful Su MD [address] [place] [address] PCP - General Family Medicine 04/15/10 Don Lara MD [address] [place] [address] Referring Urology 10/15/20 Skin Diver Relationship Specialty Start Date End Date Praful Su MD [address] [place] [address] PCP - General Family Medicine 04/15/10 Don Lara MD [address] [place] [address] Referring Urology 10/15/20 Skin Diver Relationship Specialty Start Date End Date Praful Su MD [address] [place] [address] PCP - General Family Medicine 04/15/10 Don Lara MD [address] [place] [address] Referring Urology 10/15/20 Skin Diver Relationship Specialty Start Date End Date Praful Su MD [address] [place] [address] PCP - General Family Medicine 04/15/10 Don Lara MD [address] [place] [address] Referring Urology 10/15/20 Skin Diver Relationship Specialty Start Date End Date Praful Su MD [address] [place] [address] PCP - General Family Medicine 04/15/10 Don Lara MD [address] [place] [address] Referring Urology 10/15/20 Skin Diver Relationship Specialty Start Date End Date Praful Su MD [address] [place] [address] PCP - General Family Medicine 04/15/10 Don Lara MD [address] [place] [address] Referring Urology 10/15/20 Skin Diver Relationship Specialty Start Date End Date Praful Su MD [address] [place] [address] PCP - General Family Medicine 04/15/10 Don Lara MD [address] [place] [address] Referring Urology 10/15/20 Skin Diver Relationship Specialty Start Date End Date Praful Su MD [address] [place] [address] PCP - General Family Medicine 04/15/10 Don Lara MD [address] [place] [address] Referring Urology 10/15/20 Skin Diver Relationship Specialty Start Date End Date Praful Su MD [address] [place] [address] PCP - General Family Medicine 04/15/10 Don Lara MD [address] [place] [address] Referring Urology 10/15/20 Skin Diver Relationship Specialty Start Date End Date Praful Su MD [address] [place] [address] PCP - General Family Medicine 04/15/10 Don Lara MD [address] [place] [address] Referring Urology 10/15/20 Skin Diver Relationship Specialty Start Date End Date Praful Su MD [address] [place] [address] PCP - General Family Medicine 04/15/10 Don Lara MD [address] [place] [address] Referring Urology 10/15/20 Skin Diver Relationship Specialty Start Date End Date Praful Su MD [address] [place] [address] PCP - General Family Medicine 04/15/10 Don Lara MD [address] [place] [address] Referring Urology 10/15/20 Skin Diver Relationship Specialty Start Date End Date Praful Su MD [address] [place] [address] PCP - General Family Medicine 04/15/10 Don Lara MD [address] [place] [address] Referring Urology 10/15/20 Skin Diver Relationship Specialty Start Date End Date Praful Su MD [address] [place] [address] PCP - General Family Medicine 04/15/10 Don Lara MD [address] [place] [address] Referring Urology 10/15/20 Skin Diver Relationship Specialty Start Date End Date Praful Su MD [address] [place] [address] PCP - General Family Medicine 04/15/10 Don Lara MD [address] [place] [address] Referring Urology 10/15/20 Skin Diver Relationship Specialty Start Date End Date Praful Su MD [address] [place] [address] PCP - General Family Medicine 04/15/10 Don Lara MD [address] [place] [address] Referring Urology 10/15/20 Skin Diver Relationship Specialty Start Date End Date Praful Su MD [address] [place] [address] PCP - General Family Medicine 04/15/10 Don Lara MD [address] [place] [address] Referring Urology 10/15/20 Skin Diver Relationship Specialty Start Date End Date Praful Su MD [address] [place] [address] PCP - General Family Medicine 04/15/10 Don Lara MD [address] [place] [address] Referring Urology 10/15/20 Skin Diver Relationship Specialty Start Date End Date Praful Su MD [address] [place] [address] PCP - General Family Medicine 04/15/10 Don Lara MD [address] [place] [address] Referring Urology 10/15/20 Skin Diver Relationship Specialty Start Date End Date Praful Su MD [address] [place] [address] PCP - General Family Medicine 04/15/10 Don Lara MD [address] [place] [address] Referring Urology 10/15/20 Skin Diver Relationship Specialty Start Date End Date Praful Su MD [address] [place] [address] PCP - General Family Medicine 04/15/10 Don Lara MD [address] [place] [address] Referring Urology 10/15/20 Skin Diver Relationship Specialty Start Date End Date Praful Su MD [address] [place] [address] PCP - General Family Medicine 04/15/10 Don Lara MD [address] [place] [address] Referring Urology 10/15/20 Skin Diver Relationship Specialty Start Date End Date Praful Su MD [address] [place] [address] PCP - General Family Medicine 04/15/10 Don Lara MD [address] [place] [address] Referring Urology 10/15/20 Skin Diver Relationship Specialty Start Date End Date Praful Su MD [address] [place] [address] PCP - General Family Medicine 04/15/10 Don Lara MD [address] [place] [address] Referring Urology 10/15/20 Skin Diver Relationship Specialty Start Date End Date Praful Su MD [address] [place] [address] PCP - General Family Medicine 04/15/10 Don Lara MD [address] [place] [address] Referring Urology 10/15/20 Skin Diver Relationship Specialty Start Date End Date Praful Su MD [address] [place] [address] PCP - General Family Medicine 04/15/10 Don Lara MD [address] [place] [address] Referring Urology 10/15/20 Skin Diver Relationship Specialty Start Date End Date Praful Su MD [address] [place] [address] PCP - General Family Medicine 04/15/10 Don Lara MD [address] [place] [address] Referring Urology 10/15/20 Skin Diver Relationship Specialty Start Date End Date Praful Su MD [address] [place] [address] PCP - General Family Medicine 04/15/10 Don Lara MD [address] [place] [address] Referring Urology 10/15/20 Skin Diver Relationship Specialty Start Date End Date Praful Su MD [address] [place] [address] PCP - General Family Medicine 04/15/10 Don Lara MD [address] [place] [address] Referring Urology 10/15/20 Skin Diver Relationship Specialty Start Date End Date Praful Su MD [address] [place] [address] PCP - General Family Medicine 04/15/10 Don Lara MD [address] [place] [address] Referring Urology 10/15/20 Skin Diver Relationship Specialty Start Date End Date Praful Su MD [address] [place] [address] PCP - General Family Medicine 04/15/10 Don Lara MD [address] [place] [address] Referring Urology 10/15/20 Skin Diver Relationship Specialty Start Date End Date Praful Su MD [address] [place] [address] PCP - General Family Medicine 04/15/10 Don Lara MD [address] [place] [address] Referring Urology 10/15/20 Skin Diver Relationship Specialty Start Date End Date Praful Su MD [address] [place] [address] PCP - General Family Medicine 04/15/10 Don Lara MD [address] [place] [address] Referring Urology 10/15/20 Skin Diver Relationship Specialty Start Date End Date Praful Su MD [address] [place] [address] PCP - General Family Medicine 04/15/10 Don Lara MD [address] [place] [address] Referring Urology 10/15/20 Skin Diver Relationship Specialty Start Date End Date Praful Su MD [address] [place] [address] PCP - General Family Medicine 04/15/10 Don Lara MD [address] [place] [address] Referring Urology 10/15/20 Skin Diver Relationship Specialty Start Date End Date Praful Su MD [address] [place] [address] PCP - General Family Medicine 04/15/10 Don Lara MD [address] [place] [address] Referring Urology 10/15/20 Skin Diver Relationship Specialty Start Date End Date Praful Su MD [address] [place] [address] PCP - General Family Medicine 04/15/10 Don Lara MD [address] [place] [address] Referring Urology 10/15/20 Skin Diver Relationship Specialty Start Date End Date Praful Su MD [address] [place], [place] [address] PCP - General Family Medicine 04/15/10 Don Lara MD [address] [place] [address] Referring Urology 10/15/20 Kevin Patterson MD [address] [place] [address] Referring Hematology/Oncology 10/10/23 Skin Diver Relationship Specialty Start Date End Date Praful Su MD [address] [place], [place] [address]50 PCP - General Family Medicine 04/15/10 Don Lara MD [address] [place] [address] Referring Urology 10/15/20 Kevin Patterson MD [address] [place] [address] Referring Hematology/Oncology 10/10/23 Skin Diver Relationship Specialty Start Date End Date Praful Su MD [address] [place] [address] PCP - General Family Medicine 04/15/10 Don Lara MD [address] [place] [address] Referring Urology 10/15/20 Kevin Patterson MD [address] [place] [address] Referring Hematology/Oncology 10/10/23 Skin Diver Relationship Specialty Start Date End Date Praful Su MD [address] [place] [address] PCP - General Family Medicine 04/15/10 Don Lara MD [address] [place] [address] Referring Urology 10/15/20 Kevin Patterson MD [address] [place] [address] Referring Hematology/Oncology 10/10/23 Skin Diver Relationship Specialty Start Date End Date Praful Su MD [address] [place] [address] PCP - General Family Medicine 04/15/10 Don Lara MD [address] [place] [address] Referring Urology 10/15/20 Kevin Patterson MD [address] [place] [address] Referring Hematology/Oncology 10/10/23 Skin Diver Relationship Specialty Start Date End Date Praful Su MD [address] [place] [address] PCP - General Family Medicine 04/15/10 Dno Lara MD [address] [place] [address] Referring Urology 10/15/20 Kevin Patterson MD [address] [place] [address] Referring Hematology/Oncology 10/10/23 Skin Diver Relationship Specialty Start Date End Date Praful Su MD [address] [place] [address] PCP - General Family Medicine 04/15/10 Don Lara MD [address] [place] [address] Referring Urology 10/15/20 Kevin Patterson MD [address] [place] [address] Referring Hematology/Oncology 10/10/23 Skin Diver Relationship Specialty Start Date End Date Praful Su MD [address] [place] [address] PCP - General Family Medicine 04/15/10 Don Lara MD [address] [place] [address] Referring Urology 10/15/20 Kevin Patterson MD [address] [place] [address] Referring Hematology/Oncology 10/10/23 Skin Diver Relationship Specialty Start Date End Date Praful Su MD [address] [place] [address] PCP - General Family Medicine 04/15/10 Don Lara MD [address] [place] [address] Referring Urology 10/15/20 Kevin Patterson MD [address] [place] [address] Referring Hematology/Oncology 10/10/23 Skin Diver Relationship Specialty Start Date End Date Praful Su MD [address] [place] [address] PCP - General Family Medicine 04/15/10 Don Lara MD [address] [place] [address] Referring Urology 10/15/20 Kevin Patterson MD [address] [place] [address] Referring Hematology/Oncology 10/10/23 Skin Diver Relationship Specialty Start Date End Date Praful Su MD [address] [place] [address] PCP - General Family Medicine 04/15/10 Don Lara MD [address] [place] [address] Referring Urology 10/15/20 [place] [address] [place] [address] Referring Hematology/Oncology 10/10/23 Skin Diver Relationship Specialty Start Date End Date Praful Su MD [address] [place] [address] PCP - General Family Medicine 04/15/10 Don Lara MD [address] [place] [address] Referring Urology 10/15/20 Kevin Patterson MD [address] [place] [address] Referring Hematology/Oncology 10/10/23 Skin Diver Relationship Specialty Start Date End Date Praful Su MD [address] [place] [address] PCP - General Family Medicine 04/15/10 Don Lara MD [address] [place] [address] Referring Urology 10/15/20 Kevin Patterson MD [address] [place] [address] Referring Hematology/Oncology 10/10/23 Cecile Duggan, RN [address] [place] [address] Primary Care Qual Field Manager 11/20/23 Skin Diver Relationship Specialty Start Date End Date Praful Su MD [address] [place] [address] PCP - General Family Medicine 04/15/10 Don Lara MD [address] [place] [address] Referring Urology 10/15/20 Kevin Patterson MD [address] [place] [address] Referring Hematology/Oncology 10/10/23 Cecile Duggan, GABI [address] [place] [address] Primary Care Qual Field Manager 11/20/23 Skin Diver Relationship Specialty Start Date End Date Praful Su MD [address] [place] [address] PCP - General Family Medicine 04/15/10 Don Lara MD [address] [place] [address] Referring Urology 10/15/20 Kevin Patterson MD [address] [place] [address] Referring Hematology/Oncology 10/10/23 Cecile Duggan RN [address] [place] [address] Primary Care Qual Field Manager 11/20/23 Skin Diver Relationship Specialty Start Date End Date Praful Su MD [address] [place] [address] PCP - General Family Medicine 04/15/10 Don Lara MD [address] [place] [address] Referring Urology 10/15/20 Kevin Patterson MD [address] [place] [address] Referring Hematology/Oncology 10/10/23 Cecile Duggan RN [address] [place] [address] Primary Care Qual Field Manager 11/20/23 Skin Diver Relationship Specialty Start Date End Date Praful Su MD [address] [place] [address] PCP - General Family Medicine 04/15/10 Don Lara MD [address] [place] [address] Referring Urology 10/15/20 Kevin Patterson MD [address] [place] [address] Referring Hematology/Oncology 10/10/23 Cecile Duggan RN [address] [place] [address] Primary Care Qual Field Manager 11/20/23 Skin Diver Relationship Specialty Start Date End Date Praufl Su MD [address] [place] [address] PCP - General Family Medicine 04/15/10 Don Lara MD [address] [place] [address] Referring Urology 10/15/20 Kevin Patterson MD [address] [place] [address] Referring Hematology/Oncology 10/10/23 Cecile Duggan, GABI [address] [place], [place] 9[address]4531 Primary Care Qual Field Manager 11/20/23 Skin Diver Relationship Specialty Start Date End Date Praful Su MD [address] [place] [address] PCP - General Family Medicine 04/15/10 Don Lara MD [address] [place] [address] Referring Urology 10/15/20 Kevin Patterson MD [address] [place] [address] Referring Hematology/Oncology 10/10/23 Cecile Duggan, GABI [address] [place] [address] Primary Care Qual Field Manager 11/20/23 12/19/23 Skin Diver Relationship Specialty Start Date End Date Praful Su MD [address] [place] [address] PCP - General Family Medicine 04/15/10 Don Lara MD [address] [place] [address] Referring Urology 10/15/20 Kevin Patterson MD [address] [place], [place] [address] Referring Hematology/Oncology 10/10/23 Cecile Duggan, RN [address] [place] [address] Primary Care Qual Field Manager 11/20/23 12/19/23 Skin Diver Relationship Specialty Start Date End Date Praful Su MD [address] [place] [address] PCP - General Family Medicine 04/15/10 Don Lara MD [address] [place] [address] Referring Urology 10/15/20 Kevin Patterson MD [address] [place] [address] Referring Hematology/Oncology 10/10/23 Cecile Duggan, RN [address] [place] [address] Primary Care Qual Field Manager 11/20/23 12/19/23 Skin Diver Relationship Specialty Start Date End Date Praful Su MD [address] [place] [address] PCP - General Family Medicine 04/15/10 Don Lara MD [address] [place] [address] Referring Urology 10/15/20 Kevin Patterson MD [address] [place] [address] Referring Hematology/Oncology 10/10/23 Skin Diver Relationship Specialty Start Date End Date Praful Su MD [address] [place] [address] PCP - General Family Medicine 04/15/10 Don Lara MD [address] [place] [address] Referring Urology 10/15/20 Keivn Patterson MD [address] [place] [address] Referring Hematology/Oncology 10/10/23 Cecile Duggan, RN [address] [place] [address] Primary Care Qual Field Manager 11/20/23 12/19/23 Skin Diver Relationship Specialty Start Date End Date Praful Su MD [address] [place] [address] PCP - General Family Medicine 04/15/10 Don Lara MD [address] [place] [address] Referring Urology 10/15/20 Kevin Patterson MD [address] [place] [address] Referring Hematology/Oncology 10/10/23 Skin Diver Relationship Specialty Start Date End Date Praful Su MD [address] [place] [address] PCP - General Family Medicine 04/15/10 Don Lara MD [address] [place] [address] Referring Urology 10/15/20 Kevin Patterson MD [address] [place] [address] Referring Hematology/Oncology 10/10/23 Skin Diver Relationship Specialty Start Date End Date Praful Su MD [address] [place] [address] PCP - General Family Medicine 04/15/10 Don Lara MD [address] [place] [address] Referring Urology 10/15/20 Kevin Patterson MD [address] [place] [address] Referring Hematology/Oncology 10/10/23 Skin Diver Relationship Specialty Start Date End Date Praful Su MD [address] [place] [address] PCP - General Family Medicine 04/15/10 Don Lara MD [address] [place] [address] Referring Urology 10/15/20 Kevin Patterson MD [address] [place] [address] Referring Hematology/Oncology 10/10/23 Skin Diver Relationship Specialty Start Date End Date Praful Su MD [address] [place] [address] PCP - General Family Medicine 04/15/10 Don Lara MD [address] [place] [address] Referring Urology 10/15/20 Kevin Patterson MD [address] [place] [address] Referring Hematology/Oncology 10/10/23 Skin Diver Relationship Specialty Start Date End Date Praful Su MD [address] [place] [address] PCP - General Family Medicine 04/15/10 Don Lara MD [address] [place] [address] Referring Urology 10/15/20 Kevin Patterson MD [address] [place] [address] Referring Hematology/Oncology 10/10/23 Skin Diver Relationship Specialty Start Date End Date Praful Su MD [address] [place] [address] PCP - General Family Medicine 04/15/10 Don Lara MD [address] [place] [address] Referring Urology 10/15/20 Kevin Patterson MD [address] [place] [address] Referring Hematology/Oncology 10/10/23 Skin Diver Relationship Specialty Start Date End Date Praful Su MD [address] [place] [address] PCP - General Family Medicine 04/15/10 Don aLra MD [address] [place] [address] Referring Urology 10/15/20 Kevin Patterson MD [address] [place] [address] Referring Hematology/Oncology 10/10/23 Skin Diver Relationship Specialty Start Date End Date Praful Su MD [address] [place] [address] PCP - General Family Medicine 04/15/10 Don Lara MD [address] [place] [address] Referring Urology 10/15/20 Kevin Patterson MD [address] [place] [address] Referring Hematology/Oncology 10/10/23 Jay Arce PA-C [address] [place] [address] Compounding Technician Family Medicine 05/10/24 Dracie Whitten, GABI [address] [place], [place] [phone] Primary Care Qual Field Manager 05/13/24 Skin Diver Relationship Specialty Start Date End Date Praful Su MD [address] [place] [address] PCP - General Family Medicine 04/15/10 Don Lara MD [address] [place] [address] Referring Urology 10/15/20 Kevin Patterson MD [address] [place] [address] Referring Hematology/Oncology 10/10/23 Jay Arce PA-C [address] [place] [address] Compounding Technician Family Medicine 05/10/24 Darcie Whitten, GABI [address] [place], [place] 6848331 Primary Care Qual Field Manager 05/13/24 Skin Diver Relationship Specialty Start Date End Date Praful Su MD [address] [place] [address] PCP - General Family Medicine 04/15/10 Don Lara MD [address] [place] [address] Referring Urology 10/15/20 Kevin Patterson MD [address] [place] [address] Referring Hematology/Oncology 10/10/23 Jay Arce PA-C [address] [place] [address] Compounding Technician Family Medicine 05/10/24 Darcie Whitten, GABI [address] [place], [place] [phone] Primary Care Qual Field Manager 05/13/24 Skin Diver Relationship Specialty Start Date End Date Praful Su MD [address] [place] [address] PCP - General Family Medicine 04/15/10 Don Lara MD [address] [place] [address] Referring Urology 10/15/20 Kevin Patterson MD [facility] [place] [address] Referring Hematology/Oncology 10/10/23 Jay Arce PA-C [address] [place] [address] Compounding Technician Family Medicine 05/10/24 Darcie Whitten RN [address] [place], [place] [address]31 Primary Care Qual Field Manager 05/13/24 Skin Diver Relationship Specialty Start Date End Date Praful Su MD [address] [place] [address] PCP - General Family Medicine 04/15/10 Don Lara MD [address] [place] [address] Referring Urology 10/15/20 Kevin Patterson MD [address] [place] [address] Referring Hematology/Oncology 10/10/23 Jay Arce PA-C [address] [place] [address] Compounding Technician Family Medicine 05/10/24 Darcie Whitten RN [address] [place], [place] 3174831 Primary Care Qual Field Manager 05/13/24 Skin Diver Relationship Specialty Start Date End Date Praful Su MD [address] [place] [address] PCP - General Family Medicine 04/15/10 Don Lara MD [address] [place] [address] Referring Urology 10/15/20 Kevin Patterson MD [address] [place] [address] Referring Hematology/Oncology 10/10/23 Jay Arce PA-C [address] [place] [address] Compounding Technician Family Medicine 05/10/24 Darcie Whitten, RN [address] [place] [address] Primary Care Qual Field Manager 05/13/24 Skin Diver Relationship Specialty Start Date End Date Praful Su MD [address] [place] [address] PCP - General Family Medicine 04/15/10 Don Lara MD [address] [place] [address] Referring Urology 10/15/20 Kevin Patterson MD [address] [place] [address] Referring Hematology/Oncology 10/10/23 Jay Arce PA-C [address] [place] [address] Compounding Technician Family Medicine 05/10/24 Darcie Whitten RN [address] [place] [phone] Primary Care Qual Field Manager 05/13/24 Skin Diver Relationship Specialty Start Date End Date Praful Su MD [address] [place] [address] PCP - General Family Medicine 04/15/10 Don Lara MD [address] [place] [address] Referring Urology 10/15/20 Kevin Patterson MD [address] [place], [place] 9880[address] Referring Hematology/Oncology 10/10/23 Jay Arce PA-C [address] [place] [address] Compounding Technician Family Medicine 05/10/24 Darcie Whitten RN [address] [place] [phone] Primary Care Qual Field Manager 05/13/24 Skin Diver Relationship Specialty Start Date End Date Praful Su MD [address] [place] [address] PCP - General Family Medicine 04/15/10 Don Lara MD [address] [place] [address] Referring Urology 10/15/20 Kevin Patterson MD [address] [place] [address] Referring Hematology/Oncology 10/10/23 Jay Arec PA-C [address] [place] [address] Compounding Technician Family Medicine 05/10/24 Skin Diver Relationship Specialty Start Date End Date Praful Su MD [address] [place] [address] PCP - General Family Medicine 04/15/10 Don Lara MD [address] [place] [address] Referring Urology 10/15/20 [place] [address] [place] [address] Referring Hematology/Oncology 10/10/23 Jay Arce PA-C [address] [place] [address] Compounding Technician Family Medicine 05/10/24 Skin Diver Relationship Specialty Start Date End Date Praful Su MD [address] [place] [address] PCP - General Family Medicine 04/15/10 Don Lara MD [address] [place] [address] Referring Urology 10/15/20 Kevin Patterson MD [facility] [place] [address] Referring Hematology/Oncology 10/10/23 Jay Arce PA-C [address] [place] [address] Compounding Technician Family Medicine 05/10/24 Darcie Whitten, GABI [address] [place] [address] Primary Care Qual Field Manager 06/24/24 Skin Diver Relationship Specialty Start Date End Date Praful Su MD [address] [place] [address] PCP - General Family Medicine 04/15/10 Don Lara MD [address] [place] [address] Referring Urology 10/15/20 Kevin Patterson MD [address] [place], [place] 29747[address] Referring Hematology/Oncology 10/10/23 Jay Arce PA-C [address] [place] [address] Compounding Technician Family Medicine 05/10/24 Darcie Whitten RN [address] [place] [phone] Primary Care Qual Field Manager 06/24/24 Skin Diver Relationship Specialty Start Date End Date Praful Su MD [address] [place] [address] PCP - General Family Medicine 04/15/10 Don Lara MD [address] [place] [address] Referring Urology 10/15/20 Kevin Patterson MD [address] [place], [place] [address]22695 Referring Hematology/Oncology 10/10/23 Jay Arce PA-C [address] [place] [address] Compounding Technician Family Medicine 05/10/24 Darcie Whitten, RN [address] [place], [place] [phone] Primary Care Qual Field Manager 06/24/24 Skin Diver Relationship Specialty Start Date End Date Praful Su MD [address] [place] [address] PCP - General Family Medicine 04/15/10 Don Lara MD [address] [place] [address] Referring Urology 10/15/20 Kevin Patterson MD [address] [place] [address] Referring Hematology/Oncology 10/10/23 Jay Arce PA-C [address] [place] [address] Compounding Technician Family Medicine 05/10/24 Darcie Whitten, GABI [address] [place] [address] Primary Care Qual Field Manager 06/24/24 Skin Diver Relationship Specialty Start Date End Date Praful Su MD [address] [place] [address] PCP - General Family Medicine 04/15/10 Don Lara MD [address] [place] [address] Referring Urology 10/15/20 Kevin Patterson MD [address] [place] [address] Referring Hematology/Oncology 10/10/23 Jay Arce PA-C [address] [place] [address] Compounding Technician Family Medicine 05/10/24 Darcie Whitten, GABI [address] [place], [place] [phone] Primary Care Qual Field Manager 06/24/24 Skin Diver Relationship Specialty Start Date End Date Praful Su MD [address] [place], [place] [address] PCP - General Family Medicine 04/15/10 Don Lara MD [address] [place] [address] Referring Urology 10/15/20 Kevin Patterson MD [address] [place] [address] Referring Hematology/Oncology 10/10/23 Jay Arce PA-C [address] [place], [place] [address] Compounding Technician Family Medicine 05/10/24 Darcie Whitten, GABI [address] [place] [address] Primary Care Qual Field Manager 06/24/24 Skin Diver Relationship Specialty Start Date End Date Praful Su MD [address] [place], [place] [address] PCP - General Family Medicine 04/15/10 Don Lara MD [address] [place] [address] Referring Urology 10/15/20 Kevin Patterson MD [address] [place] [address] Referring Hematology/Oncology 10/10/23 Jay Arce PA-C [address] [place] [address] Compounding Technician Family Medicine 05/10/24 Skin Diver Relationship Specialty Start Date End Date Praful Su MD [address] [place] [address] PCP - General Family Medicine 04/15/10 Don Lara MD [address] [place] [address] Referring Urology 10/15/20 Kevin Patterson MD [address] [place] [address] Referring Hematology/Oncology 10/10/23 Jay Arce PA-C [address] [place] [address] Compounding Technician Family Medicine 05/10/24 Skin Diver Relationship Specialty Start Date End Date Praful Su MD [address] [place] [address] PCP - General Family Medicine 04/15/10 Don Lara MD [address] [place] [address] Referring Urology 10/15/20 Kevin Patterson MD [address] [place] [address] Referring Hematology/Oncology 10/10/23 Jay Arce PA-C [address] [place] [address] Compounding Technician Family Medicine 05/10/24 Skin Diver Relationship Specialty Start Date End Date Praful Su MD [address] [place] [address] PCP - General Family Medicine 04/15/10 Don Lara MD [address] [place] [address] Referring Urology 10/15/20 Kevin Patterson MD [address] [place] [address] Referring Hematology/Oncology 10/10/23 Jay Arce PA-C [address] [place] [address] Compounding Technician Family Medicine 05/10/24 Darcie Whitten, RN [address] [place] [id number] News Assignment Editor 09/06/24 Skin Diver Relationship Specialty Start Date End Date Praful Su MD [address] [place] [address] PCP - General Family Medicine 04/15/10 Don Lara MD [address] [place] [address] Referring Urology 10/15/20 Kevin Patterson MD [address] [place], [place] 9[address] Referring Hematology/Oncology 10/10/23 Jay Arce PA-C [address] [place] [address] Compounding Technician Family Medicine 05/10/24 Darcie Whitten RN [address] [place] [address] News Assignment Editor 09/06/24 Skin Diver Relationship Specialty Start Date End Date Praful Su MD [address] [place] [address] PCP - General Family Medicine 04/15/10 Don Lara MD [address] [place] [address] Referring Urology 10/15/20 Kevin Patterson MD [address] [place] [address] Referring Hematology/Oncology 10/10/23 Jay Arce PA-C [address] [place], [place] 704920 Compounding Technician Family Medicine 05/10/24 Darcie Whitten RN [address] [place] [address] News Assignment Editor 09/06/24 Skin Diver Relationship Specialty Start Date End Date Praful Su MD [address] [place] [address] PCP - General Family Medicine 04/15/10 Don Lara MD [address] [place] [address] Referring Urology 10/15/20 Kevin Patterson MD [address] [place] [address] Referring Hematology/Oncology 10/10/23 Jay Arce PA-C [address] [place] [address] Compounding Technician Family Medicine 05/10/24 Darcie Whitten, GABI [address] [place] [address] News Assignment Editor 09/06/24 Skin Diver Relationship Specialty Start Date End Date Praful Su MD [address] [place] [address] PCP - General Family Medicine 04/15/10 Don Lara MD [address] [place] [address] Referring Urology 10/15/20 Kevin Patterson MD [address] [place] [address] Referring Hematology/Oncology 10/10/23 Jay Arce PA-C [address] [place] [address] Compounding Technician Family Medicine 05/10/24 Skin Diver Relationship Specialty Start Date End Date Praful Su MD [address] [place] [address] PCP - General Family Medicine 04/15/10 Dno Lara MD [address] [place] [address] Referring Urology 10/15/20 Kevin Patterson MD [address] [place] [address] Referring Hematology/Oncology 10/10/23 Jay Arce PA-C [address] [place] [address] Compounding Technician Family Medicine 05/10/24 Skin Diver Relationship Specialty Start Date End Date Praful Su MD [address] [place] [address] PCP - General Family Medicine 04/15/10 Don Lara MD [address] [place] [address] Referring Urology 10/15/20 Kevin Patterson MD [address] [place] [address] Referring Hematology/Oncology 10/10/23 Jay Arce PA-C [address] [place] [address] Compounding Technician Family Medicine 05/10/24 Skin Diver Relationship Specialty Start Date End Date Praful Su MD [address] [place] [address] PCP - General Family Medicine 04/15/10 Don Lara MD [address] [place] [address] Referring Urology 10/15/20 Kevin Patterson MD [address] [place] [address] Referring Hematology/Oncology 10/10/23 Jay Arce PA-C [address] [place] [address] Compounding Technician Family Medicine 05/10/24 (unrecognized sect ion and content) No Status Records FoundNo Status Records FoundNo Status Records FoundNo Status Records FoundNo Status Records Found INFORMATION SOURCE (unrecogn ized section and content) DATE CREATED AUTHOR 11/02/2023 [facility] DATE CREATED AUTHOR AUTHOR'S ORGANIZ ATION 01/07/2024 [facility] DATE CREATED AUTHOR AUTHOR'S ORGANIZ ATION 11/28/2024 [facility] DATE CREATED AUTHOR AUTHOR'S ORGANIZ ATION 11/29/2024 [facility] DATE CREATED AUTHOR AUTHOR'S ORGANIZ ATION 11/29/2024 [facility] FOR RECORDS PERTAINING TO PATIENTS WHO ARE [...] BE BASED ON THE PRIMARY CLINICAL RECORDS. [employer] provides no warranty or guarantee of the accuracy or completeness of information in this document.
[2024-12-02 08:27] LABS: Hematocrit 35.2 % (40-54); Hemoglobin 10.8 g/dL (13.0-16.5); Immature Granulocytes Count 0.020 X10^3/uL (0.0-0.0); Mean Corp Hgb Conc 30.7 g/dL (32-36); Mean Corpuscular Volume 93.4 fL (80-94); Mean Platelet Vol. 9.6 fl (6.2-12.0); NRBC Flagged by Analyzer 0 % (0-5); Platelet Count 306 K/mm3 (150-450); RBC Distribution Width CV 14.4 % (11.6-14.6); RBC Distribution Width SD 49.1 fl (35.1-43.9); Red Blood Count 3.77 M/mm3 (4.6-6.2); White Blood Count 7.6 K/mm3 (4.4-11.0)
[2024-12-02 08:38] LABS: AST(SGOT) 16 U/L (<=37); Alanine Aminotransfer ALT/SGPT 9 U/L (<=46); Albumin, Serum 3.4 g/dL (3.4-4.8); Alkaline Phosphatase 67 U/L (40-129); Bilirubin, Direct 0.12 mg/dL (0.00-0.30); Globulin 2.9 g/dL (2.2-4.2)
== END ==
LOC: OLS.SANC 05:00
PROVIDERS: Visit Provider Internal Medicine
DX: I10 Essential (primary) hypertension (principal); I48.91 Unspecified atrial fibrillation; E78.5 Hyperlipidemia, unspecified; Z79.899 Other long term (current) drug therapy
CPT/HCPCS: 36415; 80076; 82565; 85025